=== PATIENT | male | born 1960 | race Caucasian/White ===

== ENCOUNTER 2016-09-30 15:51 | Inpatient (IN) | payer OTHER ==
[~2016-09-30] VITALS: Ht 182.9 cm; Wt 174.2 kg
[2016-09-30] MEDS ORDERED: VANCOMYCIN INJ 1,000 MG in SODIUM CHLORIDE 0.9% 250ML 250 ML IV STA (16:25)
[2016-09-30] MEDS ORDERED: CEFTRIAXONE SOD INJ 1 GM ADDVIAL IV STA (16:25)
[2016-09-30 17:08] LABS: BASO % 0.6 %; BASO ABS # 0.04 K/uL (0-0.2); COMPLETE YES; EOS % 1.8 %; HEMATOCRIT 35.9 % (42-52); IG% 0.2 %; LYMPH % 14.7 %; LYMPH ABS # 0.91 K/uL (1.2-3.4); MEAN CELL VOLUME 84.9 fL (80-100); MEAN CORPUSCULAR HEMOGLOBIN 26.7 pg (25-34); MEAN CORPUSCULAR HGB CONC 31.5 g/dl (32-36); MEAN PLATELET VOLUME 10.4 fL (7.4-10.4); MONO % 6.9 %; NEUT % 75.8 %; PLATELET COUNT 312 K/uL (130-400); RED BLOOD COUNT 4.23 M/uL (4.7-6.1); WHITE BLOOD COUNT 6.21 K/uL (4.8-10.8)
[2016-09-30] MEDS ORDERED: FUROSEMIDE 40 MG/4 ML VIAL IV STA (17:11)
--- NOTE | 2016-09-30 17:12 | DIAGNOSTIC IMAGING REPORT ---
CHEST ONE VIEW PORTABLE CLINICAL HISTORY: Shortness of breath. COMPARISON STUDY: No previous studies for comparison. FINDINGS: This exam is significantly compromised by suboptimal penetration related to portable technique and body habitus. Lung volumes are normal. No lobar consolidation is present. There is borderline enlargement of the cardiac silhouette. There is pulmonary vascular congestion without overt pulmonary edema. IMPRESSION: 1. Study significantly compromised by suboptimal penetration related to portable technique and body habitus. 2. Borderline cardiomegaly with pulmonary vascular congestion. No overt pulmonary edema. 3. No lobar consolidation. Electronically signed by: Andres Overton M.D. 09/30/2016 5:11 PM Dictated Date/Time: 09/30/2016 5:10 PM
[2016-09-30 17:24] LABS: BUN/CREATININE RATIO 10.4 (10-20); CALCIUM 8.3 mg/dl (8.5-10.1); CREATININE 3.6 mg/dl (0.60-1.40); POTASSIUM 5.1 mmol/L (3.5-5.1)
[2016-09-30 17:29] LABS: ALB/GLOB RATIO 0.6 (0.9-2); CKMB/CK RATIO 2.4 (0-3.0)
[2016-09-30] MEDS ORDERED: ALBUT/IPRATROP 3MG/0.5MG NEB 3 ML VIAL INH ONE (17:30)
[2016-09-30] MEDS ORDERED: DEXTROSE 50% 50 ML SYR IV STA (18:36)
[2016-09-30] MEDS ORDERED: ZOLPIDEM TARTRATE 5 MG TAB PO PRN (19:15)
[2016-09-30] MEDS ORDERED: DEXTROSE 50% 50 ML SYR IV PRN (19:30)
[2016-09-30] MEDS ORDERED: GLUCAGON FOR INJ 1 MG VIAL SQ PRN (19:30)
[2016-09-30] MEDS ORDERED: GLUCOSE 40% GEL 15 GM TUBE PO PRN (19:30)
[2016-09-30] MEDS ORDERED: GLUCOSE 10 TABS/TUBE PO PRN (19:30)
[2016-09-30] MEDS ORDERED: PIPERACILL/TAZOBAC IV 4.5 GM in DEXTROSE 5% 100ML IV ONE (19:30)
[2016-09-30] MEDS ORDERED: ONDANSETRON INJ 2 MG/ML 2 ML VIAL IV PRN (19:30)
[2016-09-30] MEDS ORDERED: METOPROLOL TARTRATE 50 MG TAB PO STA (19:35)
[2016-09-30] MEDS ORDERED: HydrALAZINE HCL 20 MG/ML VIAL ONE (20:06)
--- NOTE | 2016-09-30 21:07 | EMERGENCY ROOM VISIT NOTE ---
History Report prepared by Cassidy: Anila Devi Under the Supervision of: Dr. Richard Dotson M.D. First contact with patient: 16:20 Chief Complaint: LEG PAIN,LEG INJURY Stated Complaint: HARD TO WALK,BOTH LEGS & FEET History of Present Illness The patient is a 56 year old male who presents to the Emergency Room with complaints of worsening bilateral lower extremity edema that started a couple days ago. He is also experiencing bilateral leg pain, which makes it hard for him to ambulate. The patient also states that his abdomen is more distended than usual. The patient states that he is also experiencing dyspnea on exertion. The patient adds that he is supposed to be taking medications, but he does not because his doctor left so he never got the prescriptions refilled. Additionally, the patient is experiencing worsening erythema on his bilateral legs and feet. The erythema on his legs started one month ago and the erythema on his feet started three months ago. He states that he has experienced infections on both his legs and his feet in the past. Source of History: patient Onset: a couple days ago Position: leg (bilateral) Quality: other (edema) Timing: worsening Associated Symptoms: + SOB (on exertion) Note: abdominal distention, bilateral leg pain, worsening erythema on his bilateral legs and feet Review of Systems See HPI for pertinent positives & negatives. A total of 10 systems reviewed and were otherwise negative. Past Medical & Surgical Medical Problems: (1) Anasarca (2) Bilateral lower leg cellulitis Family History Cancer Diabetes mellitus Heart disease Hypertension Kidney disease Kidney stones Lung disease Social History Smoking Status: Never Smoker Smokeless Tobacco Use: No Alcohol Use: none Drug Use: none Housing Status: lives alone Occupation Status: employed Current/Historical Medications No Active Prescriptions or Reported Meds Allergies Coded Allergies: No Known Allergies (Unverified , 09/30/16) Physical Exam Vital Signs Date Time Temp Pulse Resp B/P Pulse Ox O2 Delivery O2 Flow Rate FiO2 09/30/16 20:34 76 18 188/97 93 Room Air 09/30/16 20:07 87 20 210/107 96 Room Air 09/30/16 18:44 79 20 225/110 95 Room Air 09/30/16 18:00 81 21 230/118 95 Room Air 09/30/16 17:23 83 09/30/16 17:19 98 Room Air 09/30/16 16:10 36.4 104 28 208/116 85 Room Air Physical Exam GENERAL: Patient is a healthy-appearing well-nourished male HEAD: Normocephalic atraumatic EYES: Ocular movements intact pupils equal and react to light OROPHARYNX mucous membranes are moist no exudates present no erythema or edema present NECK: Supple no nuchal rigidity CHEST: Good equal expansion LUNGS: Very distant breath sounds CARDIAC: Normal S1 and S2 ABDOMEN: Morbidly obese soft nontender no guarding BACK: No CVA tenderness EXTREMITIES: There is what appears to be cellulitis extending up to the knees bilaterally with multiple open wounds on his legs no pain upon palpation normal muscle strength in all groups no clubbing or cyanosis NEURO: Patient is following commands is answering questions appropriately. Alert and oriented x3 Cranial Nerves 2-12 grossly intact Medical Decision & Procedures ER Provider Diagnostic Interpretation: X-ray results as stated below per interpretation by me and the radiologist: CHEST ONE VIEW PORTABLE IMPRESSION: 1. Study significantly compromised by suboptimal penetration related to portable technique and body habitus. 2. Borderline cardiomegaly with pulmonary vascular congestion. No overt pulmonary edema. 3. No lobar consolidation. Electronically signed by: Andres Overton M.D. 09/30/2016 5:11 PM Dictated Date/Time: 09/30/2016 5:10 PM Laboratory Results 09/30/16 16:50 Red Blood Count 4.23, Mean Corpuscular Volume 84.9, Mean Corpuscular Hemoglobin 26.7, Mean Corpuscular Hemoglobin Concent 31.5, Mean Platelet Volume 10.4, Neutrophils (%) (Auto) 75.8, Lymphocytes (%) (Auto) 14.7, Monocytes (%) (Auto) 6.9, Eosinophils (%) (Auto) 1.8, Basophils (%) (Auto) 0.6, Neutrophils # (Auto) 4.71, Lymphocytes # (Auto) 0.91, Monocytes # (Auto) 0.43, Eosinophils # (Auto) 0.11, Basophils # (Auto) 0.04 09/30/16 16:50 Test 09/30/16 16:50 09/30/16 18:34 White Blood Count 6.21 K/uL (4.8-10.8) Red Blood Count 4.23 M/uL (4.7-6.1) Hemoglobin 11.3 g/dL (14.0-18.0) Hematocrit 35.9 % (42-52) Mean Corpuscular Volume 84.9 fL (80-100) Mean Corpuscular Hemoglobin 26.7 pg (25-34) Mean Corpuscular Hemoglobin Concent 31.5 g/dl (32-36) Platelet Count 312 K/uL (130-400) Mean Platelet Volume 10.4 fL (7.4-10.4) Neutrophils (%) (Auto) 75.8 % Lymphocytes (%) (Auto) 14.7 % Monocytes (%) (Auto) 6.9 % Eosinophils (%) (Auto) 1.8 % Basophils (%) (Auto) 0.6 % Neutrophils # (Auto) 4.71 K/uL (1.4-6.5) Lymphocytes # (Auto) 0.91 K/uL (1.2-3.4) Monocytes # (Auto) 0.43 K/uL (0.11-0.59) Eosinophils # (Auto) 0.11 K/uL (0-0.5) Basophils # (Auto) 0.04 K/uL (0-0.2) RDW Standard Deviation 56.1 fL (36.4-46.3) RDW Coefficient of Variation 18.1 % (11.5-14.5) Immature Granulocyte % (Auto) 0.2 % Immature Granulocyte # (Auto) 0.01 K/uL (0.00-0.02) Anion Gap 13.0 mmol/L (3-11) Est Creatinine Clear Calc Drug Dose 43.2 ml/min Estimated GFR () 20.9 Estimated GFR (Non- 18.1 BUN/Creatinine Ratio 10.4 (10-20) Calcium Level 8.3 mg/dl (8.5-10.1) Total Bilirubin 0.9 mg/dl (0.2-1) Aspartate Amino Transf (AST/SGOT) 35 U/L (15-37) Alanine Aminotransferase (ALT/SGPT) 25 U/L (12-78) Alkaline Phosphatase 150 U/L (45-117) Total Creatine Kinase 718 U/L (39-308) Creatine Kinase MB 17.1 ng/ml (0.5-3.6) Creatine Kinase MB Ratio 2.4 (0-3.0) Troponin I 0.032 ng/ml (0-0.045) Pro-B-Type Natriuretic Peptide 13000 pg/ml (0-900) Total Protein 6.9 gm/dl (6.4-8.2) Albumin 2.5 gm/dl (3.4-5.0) Globulin 4.4 gm/dl (2.5-4.0) Albumin/Globulin Ratio 0.6 (0.9-2) Bedside Glucose 79 mg/dl (70-99) Labs reviewed by ED physician. Medications Administered Medications (Trade) Dose Ordered Sig/Chavez Route Start Time Stop Time Status Last Admin Dose Admin Ceftriaxone Sodium 1 gm 1 gm NOW STAT IV 09/30/16 16:25 09/30/16 16:27 DC 09/30/16 18:18 1 GM Vancomycin HCl/ Sodium Chloride (Vancomycin Inj/ Nss 250ml) 270 ml @ 125 mls/hr NOW STAT IV 09/30/16 16:25 09/30/16 18:34 DC 09/30/16 18:51 125 MLS/HR Furosemide (Lasix Inj) 40 mg NOW STAT IV 09/30/16 17:11 09/30/16 17:12 DC 09/30/16 18:18 40 MG Dextrose (Dextrose 50% 50ML Syringe) 50 ml NOW STAT IV 09/30/16 18:36 09/30/16 18:37 DC 09/30/16 18:51 50 ML Metoprolol Tartrate (Lopressor Tab) 50 mg NOW STAT PO 09/30/16 19:35 09/30/16 19:43 DC 09/30/16 19:57 50 MG Hydralazine HCl (HydrALAZINE INJ) 20 mg STK-MED ONCE .ROUTE 09/30/16 20:06 09/30/16 20:10 DC 09/30/16 20:12 10 MG ECG Indication: SOB/dyspnea Rate (beats per minute): 88 Rhythm: normal sinus Findings: no acute ischemic change, no ectopy ED Course 162: Past medical records reviewed. The patient was evaluated in room A2. A complete history and physical examination was performed. 1625: Ordered Vancomycin HCl 1000 mg/Sodium Chloride 270 ml @ 125 mls/hr IV, Rocephin Inj 1 gm IV 1711: Ordered Lasix Inj 40 mg IV 1730: Ordered DuoNeb 12 ml INH 1733: I discussed the patient's case with Dr. Antony Hansen [facility], he has agreed to evaluate the patient for further management and care. 1738: Upon reexamination the patient is resting comfortable. I discussed results and treatment plan with the patient. He verbalizes agreement and understanding. I spoke with Dr. Hardy from the [facility] [address] [facility] Hospitalist Service. The patient will be evaluated for further management. 1836: Ordered Dextrose 50 ml IV Medical Decision Differential diagnosis: Etiologies such as infections, reactive airway disease, pneumonia, pneumothorax , COPD, CHF, cardiac ischemia, pulmonary embolism, musculoskeletal, gastrointestinal, as well as others were entertained. This is a 56-year-old male who presents emergency department complaining of shortness of breath. The patient has not seen a physician in some time and is acutely short of breath when he is walking. He is hypoxic. He does not take any medications at all. Based on the patient's presentation as well as swelling in his legs he was started on Lasix and started on Rocephin and vancomycin. With the impending blizzard I do not believe the patient is a good candidate to be sent home so I did discuss the case with the hospitalist service who agreed to admit the patient. Patient was in agreement with the treatment plan. Consults Time Called: 173 Consulting Physician: Dr. Antony BRADY Returned Call: [phone] I discussed the patient's case with Dr. Antony BRADY, he has agreed to evaluate the patient for further management and care. Impression Primary Impression: CHF exacerbation Critical Care I have personally spent greater than 30 minutes of critical care time in the direct management of this patient. This includes bedside care, interpretation of diagnostic studies, and testing, discussion with consultants, patient, and family members, and other required patient management activities. This 30 minutes is in excess of all separately billable procedures. Scribe Attestation The scribe's documentation has been prepared under my direction and personally reviewed by me in its entirety. I confirm that the note above accurately reflects all work, treatment, procedures, and medical decision making performed by me. Departure Information Dispostion Being Evaluated By Hospitalist Prescriptions No Active Prescriptions or Reported Meds Referrals No Doctor, Assigned (PCP) Patient Instructions My [facility] Problem Qualifiers Primary Impression: CHF exacerbation Congestive heart failure type: unspecified congestive heart failure type Qualified Codes: I50.9 - Heart failure, unspecified
[2016-09-30 21:21] VITALS: BP 174/89; PULSE 69; TEMP 36.9; O2SAT 96; BMI 62.1
[2016-09-30] MEDS ORDERED: PIPERACILL/TAZOBAC CONSULT ACTIVE PRN (21:30)
[2016-09-30] MEDS: INSULIN ASPART 100 UNITS/ML 3 ML PEN SC SCH (21:35)
[2016-09-30] MEDS: METOPROLOL TARTRATE 50 MG TAB PO SCH (21:38)
[2016-09-30] MEDS ORDERED: SODIUM CHLORIDE 0.9% IV SCH (22:00)
[2016-09-30] MEDS ORDERED: DAPTOMYCIN IV SCH (22:00)
--- NOTE | 2016-09-30 23:03 | History and Physical ---
History & Physical Date & Time of Service: Sep 30, 2016 at 22:48 Chief Complaint: Anasarca, Bilateral Lower Leg Cellulitis Primary Care Physician: No Doctor, Assigned History of Present Illness Source: patient The patient is a 56-year-old male who presents emergency department due to worsening bilateral lower extremity swelling and pain that began a few days ago. Redness began over one month ago. He has also been having dyspnea on exertion, but denies chest pain. He has been on medications in the past for blood pressure and fluid, however, he stopped taking them since his doctor left. He does note areas of weeping in both legs bilaterally. Family History Cancer Diabetes mellitus Heart disease Hypertension Kidney disease Kidney stones Lung disease Social History Smoking Status: Never Smoker Smokeless Tobacco Use: No Drug Use: none Occupational Status: employed Multi-Drug Resistant Organisms History of MDRO: No Allergies Coded Allergies: No Known Allergies (Unverified , 09/30/16) Home Medications No Active Prescriptions or Reported Meds Review of Systems The patient denies vision change, hearing change, sore throat, fevers, chills, sweats, weight change, fatigue, nausea, vomiting, abdominal pain, pelvic pain, blood in urine or stool, dysuria, urinary frequency or urgency, lightheadedness , dizziness, headache, memory loss, rash, , imbalance, focal or generalized weakness, numbness or tingling in arms , arthralgias or myalgias, back or neck pain, night sweats, or allergy symptoms. The review of systems is otherwise negative other than for that already noted above, and at least 10 systems have been reviewed. Physical Exam Vital Signs Date Time Temp Pulse Resp B/P Pulse Ox O2 Delivery O2 Flow Rate FiO2 09/30/16 21:21 36.9 69 20 174/89 96 Room Air 09/30/16 20:34 76 18 188/97 93 Room Air 09/30/16 20:07 87 20 210/107 96 Room Air 09/30/16 19:59 93 20 217/102 96 Room Air 09/30/16 18:44 79 20 225/110 95 Room Air 09/30/16 18:00 81 21 230/118 95 Room Air 09/30/16 17:23 83 09/30/16 17:19 98 Room Air 09/30/16 16:10 36.4 104 28 208/116 85 Room Air The patient is awake, well-developed and adequately nourished, alert and oriented 3, normocephalic and atraumatic, sitting upright in bed and in no acute distress. HEENT--PERRL, EOMI, mucous membranes and oropharynx dry. Neck--supple, no JVD or bruits, thyroid normal, trachea midline, no adenopathy. Heart--normal S1 and S2, no extra beats, no murmurs, rubs or gallops. Lungs--diminished throughout, no respiratory distress, no accessory muscle use. Abdomen--normal bowel sounds and soft, nontender and nondistended, morbidly obese. Extremities--no cyanosis, clubbing. There is bilaterally 2-3+ pitting edema. There are good distal pulses b/l. Dermatologic--bilateral lower extremities with moderately severe erythema multiple areas of weeping, multiple vesicles, and multiple sites of localized infection. Neurologic--cranial nerves II through XII grossly intact, motor and sensory examination normal. Rheumatologic--normal range of motion, nontender, muscles and joints. Psychiatric--normal affect. Diagnostics Laboratory Results Results Past 24 Hours Test 09/30/16 16:50 09/30/16 18:34 09/30/16 20:49 Range/Units White Blood Count 6.21 4.8-10.8 K/uL Red Blood Count 4.23 4.7-6.1 M/uL Hemoglobin 11.3 14.0-18.0 g/dL Hematocrit 35.9 42-52 % Mean Corpuscular Volume 84.9 80-100 fL Mean Corpuscular Hemoglobin 26.7 25-34 pg Mean Corpuscular Hemoglobin Concent 31.5 32-36 g/dl Platelet Count 312 130-400 K/uL Mean Platelet Volume 10.4 7.4-10.4 fL Neutrophils (%) (Auto) 75.8 % Lymphocytes (%) (Auto) 14.7 % Monocytes (%) (Auto) 6.9 % Eosinophils (%) (Auto) 1.8 % Basophils (%) (Auto) 0.6 % Neutrophils # (Auto) 4.71 1.4-6.5 K/uL Lymphocytes # (Auto) 0.91 1.2-3.4 K/uL Monocytes # (Auto) 0.43 0.11-0.59 K/uL Eosinophils # (Auto) 0.11 0-0.5 K/uL Basophils # (Auto) 0.04 0-0.2 K/uL RDW Standard Deviation 56.1 36.4-46.3 fL RDW Coefficient of Variation 18.1 11.5-14.5 % Immature Granulocyte % (Auto) 0.2 % Immature Granulocyte # (Auto) 0.01 0.00-0.02 K/uL Sodium Level 142 136-145 mmol/L Potassium Level 5.1 3.5-5.1 mmol/L Chloride Level 111 98-107 mmol/L Carbon Dioxide Level 18 21-32 mmol/L Anion Gap 13.0 3-11 mmol/L Blood Urea Nitrogen 37 7-18 mg/dl Creatinine 3.60 0.60-1.40 mg/dl Est Creatinine Clear Calc Drug Dose 43.2 ml/min Estimated GFR () 20.9 Estimated GFR (Non- 18.1 BUN/Creatinine Ratio 10.4 10-20 Random Glucose 66 70-99 mg/dl Calcium Level 8.3 8.5-10.1 mg/dl Total Bilirubin 0.9 0.2-1 mg/dl Aspartate Amino Transf (AST/SGOT) 35 15-37 U/L Alanine Aminotransferase (ALT/SGPT) 25 12-78 U/L Alkaline Phosphatase 150 45-117 U/L Total Creatine Kinase 718 39-308 U/L Creatine Kinase MB 17.1 0.5-3.6 ng/ml Creatine Kinase MB Ratio 2.4 0-3.0 Troponin I 0.032 0-0.045 ng/ml Pro-B-Type Natriuretic Peptide 81820 0-900 pg/ml Total Protein 6.9 6.4-8.2 gm/dl Albumin 2.5 3.4-5.0 gm/dl Globulin 4.4 2.5-4.0 gm/dl Albumin/Globulin Ratio 0.6 0.9-2 Bedside Glucose 79 70 70-99 mg/dl Microbiology Results 09/30/16 Blood Culture, Received Pending 09/30/16 Blood Culture, Received Pending 09/30/16 Gram Stain, Received Pending 09/30/16 Wound Culture, Received Pending Diagnostic Radiology Patient Name: DAY KRUEGER Unit Number: [id number] Dictated: 09/30/161709 Transcribed: 09/30/161709 NAKITA Printed Date/Time: [~ rep prt dt]/[~ rep prt tm] [~ rep ct labl] - [~ rep ct ivnm] [facility] [place] [address] Dictated: 09/30/161709 Transcribed: 09/30/161709 Printed Date/Time: [~ rep prt dt]/[~ rep prt tm] [~ rep ct labl] - [~ rep ct ivnm] CHEST ONE VIEW PORTABLE CLINICAL HISTORY: Shortness of breath. COMPARISON STUDY: No previous studies for comparison. FINDINGS: This exam is significantly compromised by suboptimal penetration related to portable technique and body habitus. Lung volumes are normal. No lobar consolidation is present. There is borderline enlargement of the cardiac silhouette. There is pulmonary vascular congestion without overt pulmonary edema. IMPRESSION: 1. Study significantly compromised by suboptimal penetration related to portable technique and body habitus. 2. Borderline cardiomegaly with pulmonary vascular congestion. No overt pulmonary edema. 3. No lobar consolidation. Electronically signed by: Andres Overton M.D. 09/30/2016 5:11 PM Dictated Date/Time: 09/30/2016 5:10 PM The status of this report is Signed. Draft = Not yet reviewed or approved by Radiologist. Signed = Reviewed and approved by Radiologist. <AttendingPhy></AttendingPhy> <FamilyPhy>No Doctor, Assigned</FamilyPhy> < PrimaryPhy>No Doctor, Assigned</PrimaryPhy> <UnitNumber>[id number]</UnitNumber> <VisitNumber>[id number]</VisitNumber> <PatientName>DAY KRUEGER JR</ PatientName> <DateOfBirth>1960</DateOfBirth> <Location>[facility]</Location> < ServiceDate>09/30/16</ServiceDate> <MNE>ESINDI</MNE> <OrderingPhy>Richard Dotson MD</OrderingPhy> <OrderingPhyMNE>f rep ord dr giraldo</OrderingPhyMNE> < DictatingPhyMNE>f rep dict dr giraldo</DictatingPhyMNE> <CCListMNE>f rep ct mne</ CCListMNE> <AdmittingPhyMNE>f pt admit dr giraldo</AdmittingPhyMNE> <AttendingPhyMNE >f pt attend dr giraldo</AttendingPhyMNE> <ConsultingPhyMNE>f pt consult dr giraldo</ConsultingPhyMNE> <FamilyPhyMNE>f pt fam dr giraldo</FamilyPhyMNE> <OtherPhyMNE>f pt other dr giraldo</OtherPhyMNE> < PrimaryPhyMNE>f pt prim care dr giraldo</PrimaryPhyMNE> <ReferringPhyMNE>f pt referring dr giraldo</ReferringPhyMNE> EKG EKG shows normal sinus rhythm at 88 bpm, there are no acute ST-T changes. Impression Assessment and Plan Bilateral lower extremity cellulitis--the patient was placed on daptomycin 6 mg/ kg IV daily, and Zosyn 3.375 mg IV every 12 hours. We will work on diuresing to minimize vacuoles which ultimately burst and result in a secondary cellulitis. Uncontrolled hypertension/Renal insufficiency/anasarca --creatinine upon entry is 3.60. We'll follow serial BMP and magnesium levels as he is diuresed. He' ll get albumin 25 g with Lasix 40 mg IV 1 tonight and then every morning. His breathing should also improve with diuresis, and we'll check a 2-D echocardiogram and serial cardiac enzymes. We'll start metoprolol tartrate 50 mg by mouth twice a day, Actonel place on hydralazine 10 mg IV every 4 hours when necessary. Level of Care Telemetry Advanced Directives Existing Advance Directive: No Existing Living Will: No Existing Power of [employer] C[employer] Manager: No Resuscitation Status FULL RESUSCITATION VTE Prophylaxis VTE Risk Assessment Done? Y/N: Yes Risk Level: Moderate
[2016-09-30 23:20] VITALS: BP 166/89; PULSE 61; TEMP 36.4; O2SAT 97
[2016-09-30] MEDS: HydrALAZINE HCL 20 MG/ML VIAL IV. PRN (23:35)
[2016-10-01] VITALS (12 sets, daily range): BP systolic 146–182; BP diastolic 63–93; PULSE 65–86; TEMP 36.3–36.9; O2SAT 93–98; Ht 182.9 cm; Wt 174.2 kg
[2016-10-01] MEDS: PIPERACILL/TAZOBAC IV 4.5 GM in DEXTROSE 5% 100ML 100 ML IV SCH ×3 (01:25→18:06)
[2016-10-01] MEDS: HydrALAZINE HCL 20 MG/ML VIAL IV. PRN ×2 (03:43→17:03)
[2016-10-01 05:34] LABS: URINE APPEARANCE CLOUDY (CLEAR); URINE BILIRUBIN NEG (NEG); URINE COLOR YELLOW; URINE EPITHELIAL CELL AUTO >30 /lpf (0-5); URINE NITRITE NEG (NEG); URINE SPECIFIC GRAVITY 1.013 (1.000-1.030); UROBILINOGEN NEG (NEG)
[2016-10-01 05:36] LABS: MANUAL MICROSCOPIC REQUIRED? NO; REVIEW REQ? YES
[2016-10-01 07:22] LABS: BASO % 0.7 %; BASO ABS # 0.04 K/uL (0-0.2); COMPLETE YES; EOS % 2.1 %; HEMATOCRIT 34.9 % (42-52); IG% 0.2 %; LYMPH % 22.5 %; LYMPH ABS # 1.26 K/uL (1.2-3.4); MEAN CELL VOLUME 83.7 fL (80-100); MEAN CORPUSCULAR HEMOGLOBIN 26.1 pg (25-34); MEAN CORPUSCULAR HGB CONC 31.2 g/dl (32-36); MEAN PLATELET VOLUME 9.7 fL (7.4-10.4); MONO % 7.7 %; NEUT % 66.8 %; PLATELET COUNT 273 K/uL (130-400); RED BLOOD COUNT 4.17 M/uL (4.7-6.1); WHITE BLOOD COUNT 5.59 K/uL (4.8-10.8)
[2016-10-01 07:32] LABS: INR 1.2 (0.9-1.1); PARTIAL THROMBOPLASTIN RATIO 1.2
[2016-10-01 07:47] LABS: BUN/CREATININE RATIO 10.1 (10-20); CALCIUM 7.9 mg/dl (8.5-10.1); CREATININE 3.5 mg/dl (0.60-1.40); POTASSIUM 4.8 mmol/L (3.5-5.1)
[2016-10-01] MEDS: INSULIN ASPART 100 UNITS/ML 3 ML PEN SC SCH ×4 (08:47→21:00)
[2016-10-01] MEDS: METOPROLOL TARTRATE 50 MG TAB PO SCH ×2 (08:49→21:22)
[2016-10-01] MEDS ORDERED: ALBUMIN 25% 50 ML with FUROSEMIDE INJ 40 MG IV SCH ×2 (09:00)
[2016-10-01] MEDS: ALBUMIN 25% 50 ML with FUROSEMIDE INJ 40 MG IV SCH ×6 (09:15→22:06)
--- NOTE | 2016-10-01 10:44 | Progress Note ---
Subjective Date of Service: Oct 01, 2016. Subjective Pt evaluation today including: conversation w/ patient, physical exam, chart review, lab review, review of studies, conversation w/ senior analytic consultant, review of inpatient medication list Voiding: no voiding problems Feeling a little better, eating voiding, bilateral lower extremities edema is the same, there are wounds in the lower extremity, left side more severe and then right side, mild right calf pain , still difficulty breathing, dyspnea on exertion, no special complaint Problem List Medical Problems: (1) CHF exacerbation Status: Acute Review of Systems Constitutional: + fatigue, No chills, No fever, No problem reported, No sweats , No weakness, No weight loss Eyes: No diplopia, No discharge, No eye pain, No redness, No worsening of vision ENT: No dental problems, No hearing loss, No nasal symptoms, No sore throat, No tinnitus, No trouble swallowing, No unusual epistaxis Respiratory: + shortness of breath, No cough, No dyspnea at rest, No dyspnea on exertion, No hemoptysis, No sputum, No wheezing Cardiac: + edema, No PND, No chest pain, No claudication, No orthopnea, No palpitations Abdomen: No constipation, No diarrhea, No nausea, No pain, No vomiting Musculoskeletal: No calf pain, No joint pain, No muscle pain, No swelling Male : No dysuria, No hematuria, No incontinence, No nocturia more than once/ night, No slowing stream, No urinary frequency Neurologic: No balance problems, No memory loss, No numbness/tingling, No paralysis, No vertigo, No weakness Psychiatric: No anhedonism, No anxiety, No depression symptoms, No insomnia, No substance abuse Heme: No abnormal bleeding/bruising, No clotting problems, No night sweats, No swollen lymph nodes Endo: No excessive thirst, No excessive urination, No fatigue Skin: + rash, No bleeding, No color change, No itch, No new/changing skin lesions Objective Vital Signs Date Time Temp Pulse Resp B/P Pulse Ox O2 Delivery O2 Flow Rate FiO2 10/01/16 08:30 Room Air 10/01/16 07:26 36.9 76 18 170/93 95 10/01/16 05:13 160/77 10/01/16 04:00 Room Air 10/01/16 03:31 36.4 69 20 179/81 94 Room Air 10/01/16 01:18 164/80 10/01/16 00:01 97 Room Air 09/30/16 23:20 36.4 61 18 166/89 97 Room Air 09/30/16 21:21 36.9 69 20 174/89 96 Room Air 09/30/16 20:34 76 18 188/97 93 Room Air 09/30/16 20:07 87 20 210/107 96 Room Air 09/30/16 19:59 93 20 217/102 96 Room Air 09/30/16 18:44 79 20 225/110 95 Room Air 09/30/16 18:00 81 21 230/118 95 Room Air 09/30/16 17:23 83 09/30/16 17:19 98 Room Air 09/30/16 16:10 36.4 104 28 208/116 85 Room Air Physical Exam General Appearance: WD/WN, no apparent distress, + obese (morbid obesity) Eyes: normal inspection, PERRL, EOMI, sclerae normal ENT: normal ENT inspection, hearing grossly normal, pharynx normal Neck: supple, no adenopathy, thyroid normal, no JVD, no carotid bruits, trachea midline Respiratory/Chest: chest non-tender, normal breath sounds, no respiratory distress, no accessory muscle use, + decreased breath sounds, + wheezing (a little ) Cardiovascular: regular rate, rhythm, no gallop, no JVD, no murmur, + pertinent finding (3+ edema) Abdomen: normal bowel sounds, non tender, soft, no organomegaly, no pulsatile mass Extremities: normal range of motion, non-tender, normal inspection, no pedal edema, no calf tenderness, normal capillary refill, pelvis stable 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, no motor/sensory deficits, alert, normal mood/affect, oriented x 3 Skin: normal color, warm/dry, + pertinent finding (bilateral anterior jamison has erythema, left lower extremity has skin superficial breakdown, no obvious drainage) Lymphatic: no adenopathy Laboratory Results Last 24 Hours Test 09/30/16 16:50 09/30/16 18:34 09/30/16 20:49 09/30/16 23:15 White Blood Count 6.21 K/uL Red Blood Count 4.23 M/uL Hemoglobin 11.3 g/dL Hematocrit 35.9 % Mean Corpuscular Volume 84.9 fL Mean Corpuscular Hemoglobin 26.7 pg Mean Corpuscular Hemoglobin Concent 31.5 g/dl Platelet Count 312 K/uL Mean Platelet Volume 10.4 fL Neutrophils (%) (Auto) 75.8 % Lymphocytes (%) (Auto) 14.7 % Monocytes (%) (Auto) 6.9 % Eosinophils (%) (Auto) 1.8 % Basophils (%) (Auto) 0.6 % Neutrophils # (Auto) 4.71 K/uL Lymphocytes # (Auto) 0.91 K/uL Monocytes # (Auto) 0.43 K/uL Eosinophils # (Auto) 0.11 K/uL Basophils # (Auto) 0.04 K/uL RDW Standard Deviation 56.1 fL RDW Coefficient of Variation 18.1 % Immature Granulocyte % (Auto) 0.2 % Immature Granulocyte # (Auto) 0.01 K/uL Sodium Level 142 mmol/L Potassium Level 5.1 mmol/L Chloride Level 111 mmol/L Carbon Dioxide Level 18 mmol/L Anion Gap 13.0 mmol/L Blood Urea Nitrogen 37 mg/dl Creatinine 3.60 mg/dl Est Creatinine Clear Calc Drug Dose 43.2 ml/min Estimated GFR () 20.9 Estimated GFR (Non- 18.1 BUN/Creatinine Ratio 10.4 Random Glucose 66 mg/dl Calcium Level 8.3 mg/dl Total Bilirubin 0.9 mg/dl Aspartate Amino Transf (AST/SGOT) 35 U/L Alanine Aminotransferase (ALT/SGPT) 25 U/L Alkaline Phosphatase 150 U/L Total Creatine Kinase 718 U/L 734 U/L Creatine Kinase MB 17.1 ng/ml 14.9 ng/ml Creatine Kinase MB Ratio 2.4 2.0 Troponin I 0.032 ng/ml 0.030 ng/ml Pro-B-Type Natriuretic Peptide 99589 pg/ml Total Protein 6.9 gm/dl Albumin 2.5 gm/dl Globulin 4.4 gm/dl Albumin/Globulin Ratio 0.6 Bedside Glucose 79 mg/dl 70 mg/dl Test 09/30/16 23:58 10/01/16 03:25 10/01/16 06:36 10/01/16 07:07 Bedside Glucose 77 mg/dl 72 mg/dl Urine Color YELLOW Urine Appearance CLOUDY Urine pH 5.0 Urine Specific [place] 1.013 Urine Protein 3+ Urine Glucose (UA) 1+ Urine Ketones TRACE Urine Occult Blood 2+ Urine Nitrite NEG Urine Bilirubin NEG Urine Urobilinogen NEG Urine Leukocyte Esterase NEG Urine WBC (Auto) 10-30 /hpf Urine RBC (Auto) 5-10 /hpf Urine Hyaline Casts (Auto) 10-30 /lpf Urine Epithelial Cells (Auto) >30 /lpf Urine Bacteria (Auto) NEG Urine Renal Epithelial Cells /lpf Urine Pathogenic Casts 10-20 GRANULAR CASTS /lpf White Blood Count 5.59 K/uL Red Blood Count 4.17 M/uL Hemoglobin 10.9 g/dL Hematocrit 34.9 % Mean Corpuscular Volume 83.7 fL Mean Corpuscular Hemoglobin 26.1 pg Mean Corpuscular Hemoglobin Concent 31.2 g/dl Platelet Count 273 K/uL Mean Platelet Volume 9.7 fL Neutrophils (%) (Auto) 66.8 % Lymphocytes (%) (Auto) 22.5 % Monocytes (%) (Auto) 7.7 % Eosinophils (%) (Auto) 2.1 % Basophils (%) (Auto) 0.7 % Neutrophils # (Auto) 3.73 K/uL Lymphocytes # (Auto) 1.26 K/uL Monocytes # (Auto) 0.43 K/uL Eosinophils # (Auto) 0.12 K/uL Basophils # (Auto) 0.04 K/uL RDW Standard Deviation 55.5 fL RDW Coefficient of Variation 18.0 % Immature Granulocyte % (Auto) 0.2 % Immature Granulocyte # (Auto) 0.01 K/uL Prothrombin Time 13.0 SECONDS Prothromb Time International Ratio 1.2 Activated Partial Thromboplast Time 30.1 SECONDS Partial Thromboplastin Ratio 1.2 Sodium Level 142 mmol/L Potassium Level 4.8 mmol/L Chloride Level 112 mmol/L Carbon Dioxide Level 15 mmol/L Anion Gap 15.0 mmol/L Blood Urea Nitrogen 35 mg/dl Creatinine 3.50 mg/dl Est Creatinine Clear Calc Drug Dose 44.3 ml/min Estimated GFR () 21.7 Estimated GFR (Non- 18.7 BUN/Creatinine Ratio 10.1 Random Glucose 78 mg/dl Calcium Level 7.9 mg/dl Magnesium Level 2.0 mg/dl Total Bilirubin 0.9 mg/dl Direct Bilirubin 0.4 mg/dl Aspartate Amino Transf (AST/SGOT) 35 U/L Alanine Aminotransferase (ALT/SGPT) 22 U/L Alkaline Phosphatase 121 U/L Total Creatine Kinase 950 U/L Creatine Kinase MB 18.8 ng/ml Creatine Kinase MB Ratio 2.0 Troponin I 0.045 ng/ml Total Protein 6.1 gm/dl Albumin 2.1 gm/dl Thyroid Stimulating Hormone (TSH) 4.190 uIu/ml Assessment and Plan 56-year-old white male admitted because of dyspnea on exertion, Bilateral lower extremity cellulitis on 09/30/2016 Likely acute on chronic CHF exacerbation which is evidenced with dyspnea on exertion for several months, getting worse for 2 week, associated with significant weight gain, stable continue on diuresing with the Lasix combined with albumin, increase the dose to twice a day Follow-up echo, add beta rafael, no LYLE inhibitor or ARB for now because possible acute on chronic kidney failure, Fluid restriction, in and out Acute kidney failure, no baseline BUN/creatinine to compare, BUN/creatinine improved after diuretic, which support the kidney failure from CHF and renal congestion Therefore feel more confident to increased diuretic Bilateral lower extremity cellulitis stable Continue on daptomycin 6 mg/kg IV daily, and Zosyn 3.375 mg IV every 12 hours. 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
--- NOTE | 2016-10-01 11:06 | ECHOCARDIOGRAM REPORT ---
*NOTICE TO RECEIVING [employer] This information is strictly Confidential and protected under [place] law. [place] law prohibits you from making any further disclosure of this information unless further disclosure is expressly permitted by the written consent of the person to whom it pertains or is authorized by law. A general authorization for the release of medical or other information is not sufficient for this purpose. Hospital accepts no responsibility if the information is made available to any other person, INCLUDING THE PATIENT. Interpretation Summary * Name: DAY KRUEGER JR Study Date: 10/01/2016 09:44 AM BP: 170/93 mmHg * Patient Location: .2T\S\E215\S\1 HR: 76 * : 1960 (M/d/yyyy) Gender: Male Height: 72 in * Age: 56 yrs Ethnicity: CA Weight: 460 lb * Ordering Physician: Ramy Hardy * Referring Physician: Self, Referred * Performed By: Magaly Jorgensen RDCS * * Reason For Study: ANASARCA * BSA: 3.0 m2 * History: ANASARCA * -- Conclusions -- * 1. Normal left ventricular size with probable low-normal systolic function. Estimated EF 50-55%. No definite regional wall motion abnormalities. Severe concentric left ventricular hypertrophy. Type 2 diastolic dysfunction; tissue Doppler suggests elevated left atrial pressure. * 2. Right ventricle not well visualized but appears to be moderately dilated. * 3. The left atrium is moderately dilated. * 4. There is mild mitral regurgitation. * 5. Technically difficult study, enhanced with IV Definity. Poor image quality, which may affect interpretation. * 6. No prior study available for comparison. Procedure Details * A contrast injection of Definity was performed to improve assessment of LV function. * Contrast was injected into an intravenous site in the left arm. * One vial of Definity ultrasound contrast was diluted in normal saline to a total volume of 10 ml. A total of '2' ml of solution was administered during imaging. * Lot # [id number] of Definity utilized for procedure. * Expiration date AUG 07. * The attending nurse who injected the contrast agent was AME LAMBERT. Left Ventricle * Normal left ventricular size with probable low-normal systolic function. Estimated EF 50-55%. No definite regional wall motion abnormalities. Severe concentric left ventricular hypertrophy. Type 2 diastolic dysfunction. Right Ventricle * Right ventricle not well visualized but appears to be moderately dilated. * Difficult to assess right ventricular systolic function, however in some views it appears to be mildly reduced. Atria * The left atrium is moderately dilated. * Right atrium not well visualized. Mitral Valve * The mitral valve is not well visualized. * There is no mitral valve stenosis. * There is mild mitral regurgitation. Tricuspid Valve * The tricuspid valve is not well visualized. * There is no tricuspid stenosis. * Significant tricuspid regurgitation is absent. Aortic Valve * The aortic valve is not well visualized. * No hemodynamically significant valvular aortic stenosis. * There is no significant aortic regurgitation. Pulmonic Valve * The pulmonary valve is inadequately visualized, but the Doppler data is adequate for interpretation. * There is no pulmonic valvular stenosis. * Trace pulmonic valvular regurgitation. Great Vessels * The aortic root is normal size. * Blunted pulmonary venous flow pattern. Pericardium/Pleural * There is no pericardial effusion. Great Vessels * IVC not visualized. MMode 2D Measurements and Calculations IVSd 1.6 cm IVSs 2.2 cm LVIDd 5.2 cm LVIDs 3.8 cm LVPWd 1.6 cm LVPWs 2.3 cm IVS/LVPW 1.0 FS 27.0 % EDV(Teich) 127.8 ml ESV(Teich) 60.9 ml EF(Teich) 52.3 % EDV(cubed) 138.1 ml ESV(cubed) 53.7 ml EF(cubed) 61.1 % % IVS thick 33.6 % % LVPW thick 45.6 % LV mass(C)d 371.2 grams LV mass(C)dI 122.3 grams/m\S\2 LV mass(C)s 417.8 grams LV mass(C)sI 137.7 grams/m\S\2 SV(Teich) 66.8 ml SI(Teich) 22.0 ml/m\S\2 SV(cubed) 84.4 ml SI(cubed) 27.8 ml/m\S\2 Ao root diam 3.4 cm Ao root area 9.0 cm\S\2 LA dimension 4.6 cm LA/Ao 1.4 LVAd ap4 44.5 cm\S\2 LVLd ap4 9.3 cm EDV(MOD-sp4) 168.8 ml EDV(sp4-el) 180.0 ml LVAs ap4 27.4 cm\S\2 LVLs ap4 7.4 cm ESV(MOD-sp4) 84.3 ml ESV(sp4-el) 86.6 ml EF(MOD-sp4) 50.0 % EF(sp4-el) 51.9 % SV(MOD-sp4) 84.5 ml SI(MOD-sp4) 27.8 ml/m\S\2 SV(sp4-el) 93.4 ml SI(sp4-el) 30.8 ml/m\S\2 Doppler Measurements and Calculations MV E max jassi 140.0 cm/sec MV A max jassi 62.4 cm/sec MV E/A 2.2 MV dec time 0.21 sec Ao V2 max 116.1 cm/sec Ao max PG 5.4 mmHg Ao max PG (full) 2.6 mmHg LV V1 max PG 2.8 mmHg LV V1 max 84.2 cm/sec TR max jassi 236.2 cm/sec
--- NOTE | 2016-10-01 12:19 | DIAGNOSTIC IMAGING REPORT ---
BILATERAL LOWER EXTREMITY VENOUS DOPPLER CLINICAL HISTORY: Bilateral lower extremity swelling, cellulitis and calf pain. COMPARISON STUDY: No previous studies for comparison. TECHNIQUE: Sonography of the deep venous system of the bilateral lower extremities was performed. Compression and augmentation were evaluated. FINDINGS: This exam was compromised by suboptimal penetration. The bilateral common femoral, superficial femoral and popliteal veins were compressible. Augmentation was normal. Flow was shown within the deep calf vessels. IMPRESSION: Study compromised by suboptimal penetration but no evidence of deep venous thrombus within the bilateral lower extremities. Electronically signed by: Andres Overton M.D. 10/01/2016 12:17 PM Dictated Date/Time: 10/01/2016 12:16 PM
[2016-10-01 15:40] LABS: CKMB/CK RATIO 1.6 (0-3.0)
[2016-10-01 18:23] LABS: BUN/CREATININE RATIO 9.3 (10-20); CALCIUM 7.8 mg/dl (8.5-10.1); CREATININE 3.9 mg/dl (0.60-1.40)
[2016-10-01] MEDS ORDERED: NURSING VERBAL MED ORDER ONE (20:30)
[2016-10-01] MEDS ORDERED: DAPTOMYCIN IV SCH (22:00)
[2016-10-01] MEDS ORDERED: SODIUM CHLORIDE 0.9% IV SCH (22:00)
[2016-10-01] MEDS: HydrALAZINE 10 MG TAB PO SCH (22:06)
[2016-10-02] VITALS (9 sets, daily range): BP systolic 150–176; BP diastolic 63–86; PULSE 63–69; TEMP 36.4–36.7; O2SAT 90–95
[2016-10-02] MEDS: PIPERACILL/TAZOBAC IV 4.5 GM in DEXTROSE 5% 100ML 100 ML IV SCH (01:29)
[2016-10-02] MEDS: HydrALAZINE 10 MG TAB PO SCH ×3 (05:43→22:50)
[2016-10-02 06:11] LABS: BASO % 0.8 %; BASO ABS # 0.05 K/uL (0-0.2); COMPLETE YES; EOS % 2.1 %; HEMATOCRIT 34.7 % (42-52); IG% 0.2 %; LYMPH % 19.1 %; LYMPH ABS # 1.18 K/uL (1.2-3.4); MEAN CELL VOLUME 84.4 fL (80-100); MEAN CORPUSCULAR HEMOGLOBIN 26.3 pg (25-34); MEAN CORPUSCULAR HGB CONC 31.1 g/dl (32-36); MEAN PLATELET VOLUME 9.9 fL (7.4-10.4); MONO % 9.5 %; NEUT % 68.3 %; PLATELET COUNT 276 K/uL (130-400); RED BLOOD COUNT 4.11 M/uL (4.7-6.1); WHITE BLOOD COUNT 6.19 K/uL (4.8-10.8)
[2016-10-02 06:25] LABS: INR 1.2 (0.9-1.1); PARTIAL THROMBOPLASTIN RATIO 1.2; PROTHROMBIN TIME (PATIENT) 13.2 SECONDS (9.0-12.0)
[2016-10-02 06:38] LABS: BUN/CREATININE RATIO 9.9 (10-20); CALCIUM 7.5 mg/dl (8.5-10.1); CREATININE 4.1 mg/dl (0.60-1.40); MAGNESIUM 2.1 mg/dl (1.8-2.4); POTASSIUM 4.9 mmol/L (3.5-5.1)
[2016-10-02 06:40] LABS: CHOLESTEROL/HDL RATIO 3.1
[2016-10-02 07:00] LABS: ESTIMATED AVERAGE GLUCOSE 146 mg/dl; HA1C FLAG Normal (Normal)
[2016-10-02] MEDS: INSULIN ASPART 100 UNITS/ML 3 ML PEN SC SCH ×4 (07:59→20:30)
[2016-10-02] MEDS: METOPROLOL TARTRATE 50 MG TAB PO SCH ×2 (07:59→20:31)
--- NOTE | 2016-10-02 10:11 | Progress Note ---
Subjective Date of Service: Oct 02, 2016. Subjective Pt evaluation today including: conversation w/ patient, physical exam, chart review, lab review, review of studies, conversation w/ cycle consultant, review of inpatient medication list Feeling a little bit better in difficult breathing, out of bed to rest room, speak full sentence, report not too much urine output, lower extremity still swelling Problem List Medical Problems: (1) CHF exacerbation Status: Acute Review of Systems Constitutional: + fatigue, No chills, No fever, No problem reported, No sweats , No weakness, No weight loss Eyes: No diplopia, No discharge, No eye pain, No redness, No worsening of vision ENT: No dental problems, No hearing loss, No nasal symptoms, No sore throat, No tinnitus, No trouble swallowing, No unusual epistaxis Respiratory: + shortness of breath (dyspnea on exertion but is better), No cough, No dyspnea at rest, No dyspnea on exertion, No hemoptysis, No sputum, No wheezing Cardiac: + edema (3+ edema), No PND, No chest pain, No claudication, No orthopnea, No palpitations Abdomen: No constipation, No diarrhea, No nausea, No pain, No vomiting Musculoskeletal: No calf pain, No joint pain, No muscle pain, No swelling Male : No dysuria, No hematuria, No incontinence, No nocturia more than once/ night, No slowing stream, No urinary frequency Neurologic: No balance problems, No memory loss, No numbness/tingling, No paralysis, No vertigo, No weakness Psychiatric: No anhedonism, No anxiety, No depression symptoms, No insomnia, No substance abuse Heme: No abnormal bleeding/bruising, No clotting problems, No night sweats, No swollen lymph nodes Endo: No excessive thirst, No excessive urination, No fatigue Skin: + rash (in chyna lower extremities is better, local skin abrasion with some ozozing and fluid is in dress), No bleeding, No color change, No itch, No new/changing skin lesions Objective Vital Signs Date Time Temp Pulse Resp B/P Pulse Ox O2 Delivery O2 Flow Rate FiO2 10/02/16 08:00 Room Air 10/02/16 07:33 36.7 66 16 176/85 95 Room Air 10/02/16 04:00 Room Air 10/02/16 03:38 36.4 64 21 150/77 92 Room Air 10/01/16 23:59 Room Air 10/01/16 23:24 36.3 66 22 147/76 93 Room Air 10/01/16 20:17 36.3 70 18 175/93 94 Room Air 10/01/16 17:52 70 163/72 10/01/16 16:00 96 Room Air 10/01/16 15:13 36.3 65 18 173/82 96 Room Air 10/01/16 12:00 Room Air 10/01/16 11:27 36.9 86 18 146/63 95 10/01/16 11:15 68 98 Physical Exam General Appearance: WD/WN, no apparent distress, + obese (morbid obesity) Eyes: normal inspection, PERRL, EOMI, sclerae normal ENT: normal ENT inspection, hearing grossly normal, pharynx normal Neck: supple, no adenopathy, thyroid normal, no JVD, no carotid bruits, trachea midline Respiratory/Chest: chest non-tender, lungs clear, normal breath sounds, no respiratory distress, no accessory muscle use, + decreased breath sounds Cardiovascular: regular rate, rhythm, no gallop, no JVD, no murmur, + pertinent finding (3+ edema) Abdomen: normal bowel sounds, non tender, soft, no organomegaly, no pulsatile mass Extremities: normal range of motion, non-tender, normal inspection, no pedal edema, no calf tenderness, normal capillary refill, pelvis stable, + swelling 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, no motor/sensory deficits, alert, normal mood/affect, oriented x 3 Skin: normal color, warm/dry, + pertinent finding (rashes and erythema in bilateral anterior jamison, superficial skin abrasion) Lymphatic: no adenopathy Laboratory Results Last 24 Hours Test 10/01/16 11:15 10/01/16 15:01 10/01/16 16:41 10/01/16 17:22 Bedside Glucose 88 mg/dl 91 mg/dl Total Creatine Kinase 965 U/L 1031 U/L Creatine Kinase MB 15.7 ng/ml Creatine Kinase MB Ratio 1.6 Troponin I 0.046 ng/ml Sodium Level 140 mmol/L Potassium Level 5.0 mmol/L Chloride Level 110 mmol/L Carbon Dioxide Level 19 mmol/L Anion Gap 11.0 mmol/L Blood Urea Nitrogen 36 mg/dl Creatinine 3.90 mg/dl Est Creatinine Clear Calc Drug Dose 39.8 ml/min Estimated GFR () 19.0 Estimated GFR (Non- 16.4 BUN/Creatinine Ratio 9.3 Random Glucose 116 mg/dl Calcium Level 7.8 mg/dl Magnesium Level 2.0 mg/dl Test 10/01/16 20:18 10/01/16 21:50 10/02/16 05:58 10/02/16 06:45 Bedside Glucose 93 mg/dl 93 mg/dl Troponin I 0.046 ng/ml 0.041 ng/ml White Blood Count 6.19 K/uL Red Blood Count 4.11 M/uL Hemoglobin 10.8 g/dL Hematocrit 34.7 % Mean Corpuscular Volume 84.4 fL Mean Corpuscular Hemoglobin 26.3 pg Mean Corpuscular Hemoglobin Concent 31.1 g/dl Platelet Count 276 K/uL Mean Platelet Volume 9.9 fL Neutrophils (%) (Auto) 68.3 % Lymphocytes (%) (Auto) 19.1 % Monocytes (%) (Auto) 9.5 % Eosinophils (%) (Auto) 2.1 % Basophils (%) (Auto) 0.8 % Neutrophils # (Auto) 4.23 K/uL Lymphocytes # (Auto) 1.18 K/uL Monocytes # (Auto) 0.59 K/uL Eosinophils # (Auto) 0.13 K/uL Basophils # (Auto) 0.05 K/uL RDW Standard Deviation 56.0 fL RDW Coefficient of Variation 18.2 % Immature Granulocyte % (Auto) 0.2 % Immature Granulocyte # (Auto) 0.01 K/uL Prothrombin Time 13.2 SECONDS Prothromb Time International Ratio 1.2 Activated Partial Thromboplast Time 30.1 SECONDS Partial Thromboplastin Ratio 1.2 Sodium Level 141 mmol/L Potassium Level 4.9 mmol/L Chloride Level 111 mmol/L Carbon Dioxide Level 18 mmol/L Anion Gap 12.0 mmol/L Blood Urea Nitrogen 41 mg/dl Creatinine 4.10 mg/dl Est Creatinine Clear Calc Drug Dose 37.7 ml/min Estimated GFR () 17.9 Estimated GFR (Non- 15.4 BUN/Creatinine Ratio 9.9 Random Glucose 87 mg/dl Estimated Average Glucose 146 mg/dl Hemoglobin A1c 6.7 % Calcium Level 7.5 mg/dl Magnesium Level 2.1 mg/dl Total Bilirubin 0.7 mg/dl Direct Bilirubin 0.3 mg/dl Aspartate Amino Transf (AST/SGOT) 44 U/L Alanine Aminotransferase (ALT/SGPT) 28 U/L Alkaline Phosphatase 114 U/L Total Protein 6.3 gm/dl Albumin 2.4 gm/dl Triglycerides Level 90 mg/dl Cholesterol Level 135 mg/dl HDL Cholesterol 44 mg/dl LDL Cholesterol, Calculated 73 mg/dl VLDL Cholesterol, Calculated 18 mg/dl Cholesterol/HDL Ratio 3.1 Test 10/02/16 08:50 Transferrin % Saturation % Assessment and Plan 56-year-old white male admitted because of dyspnea on exertion, Bilateral lower extremity cellulitis on 09/30/2016 acute on chronic possible diastolic CHF exacerbation which is evidenced with dyspnea on exertion for several months, getting worse for 2 week, associated with significant weight gain, and the results from echo report in below stable , he got Lasix with albumin IV for 2-3 dose since admission Will hold her diuretic temporarily for now until seen by skin washer because of worsening renal function on diuretic, Continue beta rafael, no LYLE inhibitor or ARB for now because possible acute on chronic kidney failure, Fluid restriction, in and out Acute kidney failure, no baseline BUN/creatinine to compare, today's getting worse BUN/creatinine improved after diuretic, which support the kidney failure from CHF and renal congestion Nephrology consult Elevated troponin, likely because of mismatch and demanding ischemia, and CHF exacerbation, I request cardiology consult because of CHF exacerbation, diastolic dysfunction and worsening renal function on diuretic, possible cardiorenal syndrome Echo report all 10/01/2016 per report: * 1. Normal left ventricular size with probable low-normal systolic function. Estimated EF 50-55%. No definite regional wall motion abnormalities. Severe concentric left ventricular hypertrophy. Type 2 diastolic dysfunction; tissue Doppler suggests elevated left atrial pressure. * 2. Right ventricle not well visualized but appears to be moderately dilated. * 3. The left atrium is moderately dilated. * 4. There is mild mitral regurgitation. * 5. Technically difficult study, enhanced with IV Definity. Poor image quality , which may affect interpretation. * 6. No prior study available for comparison. * Bilateral lower extremity cellulitis stable Has been on on daptomycin 6 mg/kg IV daily, and Zosyn 3.375 mg IV every 12 hours since [place] Checked Doppler ultrasound to has rule out DVT, I will stop IV antibiotics and start oral Augmentin because of improving of cellulitis, and patient do not show significant severe infection, 2/7 days Uncontrolled hypertension: Continue beta rafael, hydralazine, can consider Amlodipine Continue duo neb Morbid obesity Checked fasting lipid panel, which shows that total cholesterol 200, LDL less than 100, he does not have dyslipidemia he do not need any medication for now Check HbA1c, which is 6.7, and random blood glucose never more than 200, therefore I don't believe he has diabetic, no need any medicine for now TSH within normal limits Patient has no PCP, did not see PCP for morning 2 year 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
--- NOTE | 2016-10-02 10:13 | Cardiology Consultation ---
Cardiology Consultation Date of Consultation: Oct 02, 2016. Requesting Physician: Dr. Abdullahi Reason for Consultation: Anasarca, peripheral edema Pt evaluation today including: conversation w/ patient, physical exam, lab review, review of studies, review of inpatient medication list History of Present Illness This is a 56-year-old male with a long history of hypertension for which she is noncompliant with medications, obesity and long-standing peripheral edema. He presents now with worsening of his lower extremity edema as well as erythema for the last month or so. He also has progressive dyspnea on exertion but denies exertional chest discomfort. He has no palpitations. Past Medical/Surgical History (1) Proteinuria (2) Hypertension (3) STEVE (acute kidney injury) (4) Anasarca Family History Cancer Diabetes mellitus Heart disease Hypertension Kidney disease Kidney stones Lung disease Social History Smoking Status: Never Smoker History of Alcohol Use: No Review of Systems Constitutional: No fever, No weakness, No weight loss Respiratory: + shortness of breath, No cough, No dyspnea at rest, No dyspnea on exertion, No hemoptysis, No sputum, No wheezing Cardiac: + edema, No PND, No chest pain, No claudication, No orthopnea, No palpitations Abdomen: No GI bleeding, No diarrhea, No nausea, No pain, No vomiting Male : No nocturia more than once/night, No sexual dysfunction, No slowing stream, No urinary frequency Neurologic: No balance problems, No numbness/tingling, No paralysis, No weakness Heme: No abnormal bleeding/bruising, No clotting problems Endo: No fatigue Skin: No problem reported All Other Systems: Reviewed and Negative Allergies Coded Allergies: No Known Allergies (Unverified , 09/30/16) Medications Current Inpatient Medications Medications (Trade) Dose Ordered Sig/Chavez Route Start Time Stop Time Status Last Admin Dose Admin Acetaminophen (Tylenol Tab) 650 mg Q4H PRN PO 09/30/16 19:15 10/30/16 19:14 Zolpidem Tartrate 5 mg 5 mg HSZ PRN PO 09/30/16 19:15 10/30/16 19:14 Daptomycin 1250 mg/Sodium Chloride 75 ml @ 100 mls/hr Q24H IV 10/01/16 22:00 10/09/16 22:44 10/02/16 00:04 100 MLS/HR Piperacillin Sod/ Tazobactam Sod/ Dextrose (Zosyn Iv/D5 100ml) 120 ml @ 30 mls/hr Q8H IV 10/01/16 02:00 10/11/16 01:59 10/02/16 01:29 30 MLS/HR Ondansetron HCl (Zofran Inj) 4 mg Q6H PRN IV 09/30/16 19:30 10/30/16 19:29 Insulin Aspart (novoLOG ASPART) SLIDING SCALE If C... ACHS SC 09/30/16 21:00 10/30/16 20:59 Glucose (Glucose 40% Gel) UD PRN PO 09/30/16 19:30 10/30/16 19:29 Glucose (Glucose Chew Tab) 1 tabs UD PRN PO 09/30/16 19:30 10/30/16 19:29 Dextrose (Dextrose 50% 50ML Syringe) 50 ml UD PRN IV 09/30/16 19:30 10/30/16 19:29 Glucagon (Glucagon Inj) 1 mg UD PRN SQ 09/30/16 19:30 10/30/16 19:29 Hydralazine HCl (HydrALAZINE INJ) 10 mg Q4H PRN IV. 09/30/16 19:45 10/30/16 19:44 10/01/16 17:03 10 MG Metoprolol Tartrate (Lopressor Tab) 50 mg BID PO 09/30/16 21:00 10/30/16 20:59 10/02/16 07:59 50 MG Piperacillin Sod/ Tazobactam Sod 1 ea 1 ea UD PRN N/A 09/30/16 21:30 10/30/16 21:29 Furosemide/ Albumin Human (Lasix Inj/ Albumin 25%) 54 ml @ 54 mls/hr Q12 IV 10/01/16 09:00 10/03/16 08:59 Future Hold 10/01/16 22:06 54 MLS/HR Hydralazine HCl (Apresoline Tab) 10 mg Q8 PO 10/01/16 22:00 10/31/16 21:59 10/02/16 05:43 10 MG Miconazole Nitrate (Desenex Powder) 1 appln QS PRN EXT 10/01/16 20:45 10/31/16 20:44 Physical Exam Vital Signs Past 12 Hours Date Time Temp Pulse Resp B/P Pulse Ox O2 Delivery O2 Flow Rate FiO2 10/02/16 08:00 Room Air 10/02/16 07:33 36.7 66 16 176/85 95 Room Air 10/02/16 04:00 Room Air 10/02/16 03:38 36.4 64 21 150/77 92 Room Air 10/01/16 23:59 Room Air 10/01/16 23:24 36.3 66 22 147/76 93 Room Air Constitutional: General Apperance: obese Level of Distress: NAD Psychiatric: Mental Status: active & alert Head: normocephalic Eyes: EOM: EOMI ENMT: normal ENT inspection, hearing grossly normal Neck: supple, no masses Lungs: Respiratory effort: no dyspnea, good air movement Auscultation: breath sounds normal, no wheezing Cardiovascular: Heart Auscultation: RRR, no murmurs, no rubs, no gallops Peripheral Pulses: Bruits: none appreciated Abdomen: Bowel Sounds: normal Inspection & Palpation: soft, no tenderness, guarding & rebound, no masses Musculoskeletal: normal strength (5/5 throughout) Extremities: edema (+3 bilateral lower extremity edema with signs of chronic venous stasis) Neurologic: Cranial Nerves: grossly intact Sensation: grossly intact Data Laboratory Results: Last 24 Hours Test 10/01/16 11:15 10/01/16 15:01 10/01/16 16:41 10/01/16 17:22 Bedside Glucose 88 mg/dl 91 mg/dl Total Creatine Kinase 965 U/L 1031 U/L Creatine Kinase MB 15.7 ng/ml Creatine Kinase MB Ratio 1.6 Troponin I 0.046 ng/ml Sodium Level 140 mmol/L Potassium Level 5.0 mmol/L Chloride Level 110 mmol/L Carbon Dioxide Level 19 mmol/L Anion Gap 11.0 mmol/L Blood Urea Nitrogen 36 mg/dl Creatinine 3.90 mg/dl Est Creatinine Clear Calc Drug Dose 39.8 ml/min Estimated GFR () 19.0 Estimated GFR (Non- 16.4 BUN/Creatinine Ratio 9.3 Random Glucose 116 mg/dl Calcium Level 7.8 mg/dl Magnesium Level 2.0 mg/dl Test 10/01/16 20:18 10/01/16 21:50 10/02/16 05:58 3/15/17 06:45 Bedside Glucose 93 mg/dl 93 mg/dl Troponin I 0.046 ng/ml 0.041 ng/ml White Blood Count 6.19 K/uL Red Blood Count 4.11 M/uL Hemoglobin 10.8 g/dL Hematocrit 34.7 % Mean Corpuscular Volume 84.4 fL Mean Corpuscular Hemoglobin 26.3 pg Mean Corpuscular Hemoglobin Concent 31.1 g/dl Platelet Count 276 K/uL Mean Platelet Volume 9.9 fL Neutrophils (%) (Auto) 68.3 % Lymphocytes (%) (Auto) 19.1 % Monocytes (%) (Auto) 9.5 % Eosinophils (%) (Auto) 2.1 % Basophils (%) (Auto) 0.8 % Neutrophils # (Auto) 4.23 K/uL Lymphocytes # (Auto) 1.18 K/uL Monocytes # (Auto) 0.59 K/uL Eosinophils # (Auto) 0.13 K/uL Basophils # (Auto) 0.05 K/uL RDW Standard Deviation 56.0 fL RDW Coefficient of Variation 18.2 % Immature Granulocyte % (Auto) 0.2 % Immature Granulocyte # (Auto) 0.01 K/uL Prothrombin Time 13.2 SECONDS Prothromb Time International Ratio 1.2 Activated Partial Thromboplast Time 30.1 SECONDS Partial Thromboplastin Ratio 1.2 Sodium Level 141 mmol/L Potassium Level 4.9 mmol/L Chloride Level 111 mmol/L Carbon Dioxide Level 18 mmol/L Anion Gap 12.0 mmol/L Blood Urea Nitrogen 41 mg/dl Creatinine 4.10 mg/dl Est Creatinine Clear Calc Drug Dose 37.7 ml/min Estimated GFR () 17.9 Estimated GFR (Non- 15.4 BUN/Creatinine Ratio 9.9 Random Glucose 87 mg/dl Estimated Average Glucose 146 mg/dl Hemoglobin A1c 6.7 % Calcium Level 7.5 mg/dl Magnesium Level 2.1 mg/dl Total Bilirubin 0.7 mg/dl Direct Bilirubin 0.3 mg/dl Aspartate Amino Transf (AST/SGOT) 44 U/L Alanine Aminotransferase (ALT/SGPT) 28 U/L Alkaline Phosphatase 114 U/L Total Protein 6.3 gm/dl Albumin 2.4 gm/dl Triglycerides Level 90 mg/dl Cholesterol Level 135 mg/dl HDL Cholesterol 44 mg/dl LDL Cholesterol, Calculated 73 mg/dl VLDL Cholesterol, Calculated 18 mg/dl Cholesterol/HDL Ratio 3.1 Test 10/02/16 08:50 Transferrin % Saturation % Imaging: Echocardiography shows perhaps low normal left ventricular function, not significantly reduced. Severe left ventricular hypertrophy. EKG: Sinus rhythm, normal Telemetry reviewed: Sinus rhythm, no significant arrhythmia Assessment & Plan #1. Acute on chronic kidney disease: Nephrology following, I imagine diabetes and hypertension were contributors. #2. Long-standing hypertension: Noncompliant with medications, he has evidence of target organ damage and his blood pressure needs to be controlled. I would go up on beta-blockade if possible. #3. Left ventricular hypertrophy: He almost certainly has diastolic dysfunction and possibly the beginnings of hypertensive cardiomyopathy and therefore his cardiac function may contribute somewhat to his edema although the primary cause is probably his kidney function. There is nothing to do with this other than controlling his hypertension that it will either remain stable or resolved somewhat. #4. Edema: Probably due to fluid retention caused by kidney disease, although contribution of elevated pressures due to left ventricular diastolic dysfunction is likely. #5. Elevated cardiac enzymes: His troponin is minimally elevated, suspect this is all demand ischemia, there is no evidence that this is infarction. He has exertional shortness of breath but denies exertional chest discomfort. I would not pursue an evaluation for coronary disease at this time. Thank you for allowing me to participate in his care.
[2016-10-02] MEDS ORDERED: FUROSEMIDE INJ 40 MG in SYRINGE 0 ML IV ONE (10:30)
[2016-10-02] MEDS: AMLODIPINE BESYLATE 5 MG TAB PO SCH (10:34)
[2016-10-02 10:42] LABS: FERRITIN 66.6 ng/ml (8.0-388.0); PHOSPHORUS 4.6 mg/dl (2.5-4.9)
--- NOTE | 2016-10-02 11:19 | DIAGNOSTIC IMAGING REPORT ---
RENAL ULTRASOUND HISTORY: Acute kidney injury. COMPARISON: None. FINDINGS: Suboptimal evaluation of the kidneys due to the patient's large body habitus. Right kidney: 11.5 cm. No hydronephrosis. Normal corticomedullary differentiation and cortical thickness. Left kidney: 11.1 cm. No hydronephrosis. Normal corticomedullary differentiation and cortical thickness. Bladder: Decompressed and therefore not well visualized. Enlarged spleen measuring 16.4 cm in length. IMPRESSION: 1. Suboptimal evaluation due to the patient's body habitus. 2. The kidneys appear to be within normal limits. 3. The bladder is not well-visualized due to underdistention. 4. Splenomegaly. Electronically signed by: Brandon Rodrigues M.D. 10/02/2016 11:18 AM Dictated Date/Time: 10/02/2016 11:16 AM
--- NOTE | 2016-10-02 11:36 | Nephrology Consultation ---
Nephrology Consultation Date & Providers Date of Consultation: Oct 02, 2016. Primary Care Provider: Elise Estrada D.O. Referring Provider: Reason for Consultation Evaluation and management for STEVE, metabolic acidosis and volume overload History of Present Illness Fer is a 56 year old male with PMH significant for hypertension, T2DM and morbid obesity presented to the hospital with them worsening lower extremity swelling for more than 2 weeks and weight gain. Admitted with a diagnosis of lower extremity cellulitis and anasarca. Nephrologic consult was requested as his found to have acute kidney injury, metabolic acidosis and volume overload. electronic medical records including labs and imaging are reviewed in detail during patient's visit. Fer has chronic lower extremity edema and prior history of lower extremity cellulitis. Over last few months his lower extremity swelling was worsening and since July he gained almost 30 pounds. Lower extremity edema worsen further over last 2 weeks and he noticed redness and superficial ulceration and oozing and decided to come to the emergency room for further evaluation. On admission was started on Zosyn and daptomycin. Initial blood culture was negative but wound culture came back positive for MSSA. No prior history of chronic kidney disease however, we do not have any prior records available. On admission creatinine was 3.6 which worsened over last 2 days to 4.1 this morning. also has gap metabolic acidosis and bicarb has been 18-19. Found to have anemia with significant iron deficiency. PTH was above 600. Urinalysis was positive for 3+ proteinuria and microscopic hematuria. Renal USG rt kidney 10 cm and left 11.1 cm, with cortical thinning. He reports taking 2 Aleve a day for last few weeks. No recent antibiotic or PPI use. He is a non smoker, no f/h of CKD, ESRD. Hypertension was diagnosed more than 20 years ago overall has been poorly- controlled and he has not been seeing a physician or taking medications for last more than 2 and half years. Although he gives the history of diabetes for more than 30 years, his blood sugar seems to be very well controlled without any medications, A1c was 6.5 yesterday. No history of coronary artery disease, had a echo on 10/01/2016 showing ejection fraction 55-60% , severe concentric LVH and grade 2 diastolic dysfunction. Allergies Coded Allergies: No Known Allergies (Unverified , 09/30/16) Inpatient Medications Current Inpatient Medications Medications (Trade) Dose Ordered Sig/Chavez Route Start Time Stop Time Status Last Admin Dose Admin Acetaminophen (Tylenol Tab) 650 mg Q4H PRN PO 09/30/16 19:15 10/30/16 19:14 Zolpidem Tartrate 5 mg 5 mg HSZ PRN PO 09/30/16 19:15 10/30/16 19:14 Daptomycin 1250 mg/Sodium Chloride 75 ml @ 100 mls/hr Q24H IV 10/01/16 22:00 10/09/16 22:44 10/02/16 00:04 100 MLS/HR Piperacillin Sod/ Tazobactam Sod/ Dextrose (Zosyn Iv/D5 100ml) 120 ml @ 30 mls/hr Q8H IV 10/01/16 02:00 10/11/16 01:59 10/02/16 01:29 30 MLS/HR Ondansetron HCl (Zofran Inj) 4 mg Q6H PRN IV 09/30/16 19:30 10/30/16 19:29 Insulin Aspart (novoLOG ASPART) SLIDING SCALE If C... ACHS SC 09/30/16 21:00 10/30/16 20:59 Glucose (Glucose 40% Gel) UD PRN PO 09/30/16 19:30 10/30/16 19:29 Glucose (Glucose Chew Tab) 1 tabs UD PRN PO 09/30/16 19:30 10/30/16 19:29 Dextrose (Dextrose 50% 50ML Syringe) 50 ml UD PRN IV 09/30/16 19:30 10/30/16 19:29 Glucagon (Glucagon Inj) 1 mg UD PRN SQ 09/30/16 19:30 10/30/16 19:29 Hydralazine HCl (HydrALAZINE INJ) 10 mg Q4H PRN IV. 09/30/16 19:45 10/30/16 19:44 10/01/16 17:03 10 MG Metoprolol Tartrate (Lopressor Tab) 50 mg BID PO 09/30/16 21:00 10/30/16 20:59 10/02/16 07:59 50 MG Piperacillin Sod/ Tazobactam Sod 1 ea 1 ea UD PRN N/A 09/30/16 21:30 10/30/16 21:29 Furosemide/ Albumin Human (Lasix Inj/ Albumin 25%) 54 ml @ 54 mls/hr Q12 IV 10/01/16 09:00 10/03/16 08:59 Future Hold 10/01/16 22:06 54 MLS/HR Hydralazine HCl (Apresoline Tab) 10 mg Q8 PO 10/01/16 22:00 10/31/16 21:59 10/02/16 05:43 10 MG Miconazole Nitrate (Desenex Powder) 1 appln QS PRN EXT 10/01/16 20:45 10/31/16 20:44 Amlodipine Besylate 10 mg 10 mg QAM PO 10/03/16 09:00 11/02/16 08:59 UNV Furosemide 40 mg/ Syringe 4 ml @ 4 mls/min BID IV 10/02/16 21:00 11/01/16 20:59 UNV Furosemide/Syringe (Lasix Inj/ Syringe) 4 ml @ 4 mls/min ONE IV 10/02/16 09:45 11/01/16 09:44 UNV Family History Cancer Diabetes mellitus Heart disease Hypertension Kidney disease Kidney stones Lung disease Social History Smoking Status: Never Smoker Smokeless Tobacco Use: No Drug Use: none Occupation: employed Review of Systems A complete review of systems was performed. Pertinent positives are noted above. All other systems are negative. Physical Exam Date Time Temp Pulse Resp B/P Pulse Ox O2 Delivery O2 Flow Rate FiO2 10/02/16 08:00 Room Air 10/02/16 07:33 36.7 66 16 176/85 95 Room Air 10/02/16 04:00 Room Air 10/02/16 03:38 36.4 64 21 150/77 92 Room Air 10/01/16 23:59 Room Air 10/01/16 23:24 36.3 66 22 147/76 93 Room Air 10/01/16 20:17 36.3 70 18 175/93 94 Room Air 10/01/16 17:52 70 163/72 10/01/16 16:00 96 Room Air 10/01/16 15:13 36.3 65 18 173/82 96 Room Air 10/01/16 12:00 Room Air 10/01/16 11:27 36.9 86 18 146/63 95 10/01/16 11:15 68 98 GENERAL: Middle-aged male, AAA x 3, morbidly obese, pleasant, healthy- appearing, not in any distress. HEENT: Atraumatic, normocephalic. NECK: Supple, no JVD, no carotid bruit appreciated. ENT: No sinus tenderness MOUTH and THROAT: Moist oral mucosa, no oral ulcer or pharyngeal erythema RESPIRATORY: Normal breathing efforts, no accessory muscle use, clear to auscultation bilaterally, no wheezes or rales. CARDIOVASCULAR: S1, S2 normal, rate rhythm regular. ABDOMEN: Soft, obese, pitting edema, nontender, positive bowel sound. MUSCULOSKELETAL: No CVA tenderness. No joint swelling, erythema or tenderness. Normal range of motion. SKIN: No skin rash EXTREMITY: 2-3 + B/L lower extremity edema, erythema, superficial skin ulceration. NEURO: No gross focal neurological deficit, speech fluent. PSYCHIATRY: Normal mood and judgment Laboratory Results Last 24 Hours Test 10/01/16 11:15 10/01/16 15:01 10/01/16 16:41 10/01/16 17:22 Bedside Glucose 88 mg/dl 91 mg/dl Total Creatine Kinase 965 U/L 1031 U/L Creatine Kinase MB 15.7 ng/ml Creatine Kinase MB Ratio 1.6 Troponin I 0.046 ng/ml Sodium Level 140 mmol/L Potassium Level 5.0 mmol/L Chloride Level 110 mmol/L Carbon Dioxide Level 19 mmol/L Anion Gap 11.0 mmol/L Blood Urea Nitrogen 36 mg/dl Creatinine 3.90 mg/dl Est Creatinine Clear Calc Drug Dose 39.8 ml/min Estimated GFR () 19.0 Estimated GFR (Non- 16.4 BUN/Creatinine Ratio 9.3 Random Glucose 116 mg/dl Calcium Level 7.8 mg/dl Magnesium Level 2.0 mg/dl Test 10/01/16 20:18 10/01/16 21:50 10/02/16 05:58 10/02/16 06:45 Bedside Glucose 93 mg/dl 93 mg/dl Troponin I 0.046 ng/ml 0.041 ng/ml White Blood Count 6.19 K/uL Red Blood Count 4.11 M/uL Hemoglobin 10.8 g/dL Hematocrit 34.7 % Mean Corpuscular Volume 84.4 fL Mean Corpuscular Hemoglobin 26.3 pg Mean Corpuscular Hemoglobin Concent 31.1 g/dl Platelet Count 276 K/uL Mean Platelet Volume 9.9 fL Neutrophils (%) (Auto) 68.3 % Lymphocytes (%) (Auto) 19.1 % Monocytes (%) (Auto) 9.5 % Eosinophils (%) (Auto) 2.1 % Basophils (%) (Auto) 0.8 % Neutrophils # (Auto) 4.23 K/uL Lymphocytes # (Auto) 1.18 K/uL Monocytes # (Auto) 0.59 K/uL Eosinophils # (Auto) 0.13 K/uL Basophils # (Auto) 0.05 K/uL RDW Standard Deviation 56.0 fL RDW Coefficient of Variation 18.2 % Immature Granulocyte % (Auto) 0.2 % Immature Granulocyte # (Auto) 0.01 K/uL Prothrombin Time 13.2 SECONDS Prothromb Time International Ratio 1.2 Activated Partial Thromboplast Time 30.1 SECONDS Partial Thromboplastin Ratio 1.2 Sodium Level 141 mmol/L Potassium Level 4.9 mmol/L Chloride Level 111 mmol/L Carbon Dioxide Level 18 mmol/L Anion Gap 12.0 mmol/L Blood Urea Nitrogen 41 mg/dl Creatinine 4.10 mg/dl Est Creatinine Clear Calc Drug Dose 37.7 ml/min Estimated GFR () 17.9 Estimated GFR (Non- 15.4 BUN/Creatinine Ratio 9.9 Random Glucose 87 mg/dl Estimated Average Glucose 146 mg/dl Hemoglobin A1c 6.7 % Calcium Level 7.5 mg/dl Magnesium Level 2.1 mg/dl Total Bilirubin 0.7 mg/dl Direct Bilirubin 0.3 mg/dl Aspartate Amino Transf (AST/SGOT) 44 U/L Alanine Aminotransferase (ALT/SGPT) 28 U/L Alkaline Phosphatase 114 U/L Total Protein 6.3 gm/dl Albumin 2.4 gm/dl Triglycerides Level 90 mg/dl Cholesterol Level 135 mg/dl HDL Cholesterol 44 mg/dl LDL Cholesterol, Calculated 73 mg/dl VLDL Cholesterol, Calculated 18 mg/dl Cholesterol/HDL Ratio 3.1 Test 10/02/16 08:50 Transferrin % Saturation % Impression (1) STEVE (acute kidney injury) (2) Metabolic acidosis (3) Hypertension (4) Anemia (5) Proteinuria (6) Bilateral lower leg cellulitis (7) Anasarca (8) Secondary hyperparathyroidism of renal origin Michael is a 56 year old male with Hypertension, T2DM, morbid obesity Admitted to the hospital with bilateral lower extremity cellulitis and anasarca. started empirically on Zosyn and daptomycin, initial lower extremity wound culture was positive for MSSA, blood culture negative. He was found to have acute kidney injury, on admission creatinine was 3.6 which slightly worsened over last 2 days to 4.1, associated with gap metabolic acidosis and significant weight gain over last few months. Urinalysis showed 3 + proteinuria and microscopic hematuria. renal ultrasound with electively small size kidney, cortical thinning but without any postrenal obstruction. No prior record available so it is unclear whether this is all acute kidney injury or in fact the patient has underlying advanced CKD which seems more likely as patient has been having high grade proteinuria, poorly-controlled hypertension , diabetes and morbid obesity. Has anemia and hyperparathyroidism which also could be due to advanced CKD. Has diabetes, morbid obesity, LVH with grade 2 diastolic dysfunction. Patient has not been seeing a physician heart taking medications for last more than 2 years. Recommendations --reviewed renal ultrasound, kidneys are electively small with cortical thinning but no postrenal obstruction --Zosyn dose should be decreased considering GFR less than 20 --start on Lasix 40 IV twice a day --start amlodipine 10 milligrams p.o. daily --check vit D --suggest GI w/u for iron deficiency anemia -- start on calcitriol 0.25 micrograms 3 times a week --Venofer 200 mg IV every other day for 5 doses --monitor renal function daily --avoid all NSAID's --renal diet Thank you for allowing me to participate in your patient's care. It was a pleasure to see Danielito This chart was completed utilizing [employer] Speech and voice recognition software. Grammatical errors, random word insertions, pronoun errors and incomplete sentences are occasional consequences of this system. Any questions or concerns about the content, text or information contained within the body of this dictation should be addressed directly to the physician for clarification.
[2016-10-02] MEDS ORDERED: IRON SUCROSE INJ 200 MG in SODIUM CHLORIDE 0.9% 100ML 100 ML IV SCH ×2 (11:45→13:30)
[2016-10-02 13:45] LABS: URINE PROTIEN/CREAT RATIO 6.5 (0-0.2); URINE TOTAL PROTEIN 716.3 mg/dl (0-11.9)
[2016-10-02] MEDS ORDERED: PIPERACILL/TAZOBAC IV 4.5 GM in DEXTROSE 5% 100ML 100 ML IV SCH (14:00)
[2016-10-02] MEDS: IRON SUCROSE INJ 200 MG in SODIUM CHLORIDE 0.9% 100ML 100 ML IV SCH (14:00)
[2016-10-02] MEDS: FUROSEMIDE INJ 40 MG in SYRINGE 0 ML IV SCH (16:31)
[2016-10-02] MEDS: HydrALAZINE HCL 20 MG/ML VIAL IV. PRN (16:44)
[2016-10-03] VITALS (7 sets, daily range): BP systolic 138–170; BP diastolic 69–89; PULSE 61–79; TEMP 36.3–36.9; O2SAT 93–96
[2016-10-03] MEDS: HydrALAZINE 10 MG TAB PO SCH (05:41)
[2016-10-03 07:50] LABS: BASO % 0.7 %; BASO ABS # 0.04 K/uL (0-0.2); COMPLETE YES; EOS % 2.3 %; HEMATOCRIT 34.8 % (42-52); IG% 0.2 %; LYMPH % 20.3 %; LYMPH ABS # 1.16 K/uL (1.2-3.4); MEAN CELL VOLUME 84.3 fL (80-100); MEAN CORPUSCULAR HEMOGLOBIN 26.2 pg (25-34); MEAN PLATELET VOLUME 10.1 fL (7.4-10.4); NEUT % 65.5 %; PLATELET COUNT 266 K/uL (130-400); RED BLOOD COUNT 4.13 M/uL (4.7-6.1); WHITE BLOOD COUNT 5.72 K/uL (4.8-10.8)
[2016-10-03 08:06] LABS: INR 1.2 (0.9-1.1); PARTIAL THROMBOPLASTIN RATIO 1.2; PROTHROMBIN TIME (PATIENT) 13.1 SECONDS (9.0-12.0)
[2016-10-03 08:35] LABS: BUN/CREATININE RATIO 9.2 (10-20); CALCIUM 7.8 mg/dl (8.5-10.1); CREATININE 4.6 mg/dl (0.60-1.40); MAGNESIUM 2.2 mg/dl (1.8-2.4); POTASSIUM 4.7 mmol/L (3.5-5.1)
[2016-10-03] MEDS ORDERED: NURSING VERBAL MED ORDER ONE (08:45)
[2016-10-03] MEDS ORDERED: ERGOCALCIFEROL 50,000 INTER.UNIT CAP PO SCH (09:00)
[2016-10-03] MEDS: FUROSEMIDE INJ 40 MG in SYRINGE 0 ML IV SCH (09:00)
--- NOTE | 2016-10-03 09:26 | Progress Note ---
Subjective Date of Service: Oct 03, 2016. Subjective Pt evaluation today including: conversation w/ patient, physical exam, chart review, lab review, review of studies, conversation w/ cardiology consultants, review of inpatient medication list Voiding: no voiding problems Reports significant decreased urine output, however otherwise doing okay, up and walk, eating drinking, deny constipation deny fever and chill Problem List Medical Problems: (1) CHF exacerbation Status: Acute Review of Systems Constitutional: No chills, No fatigue, No fever, No problem reported, No sweats , No weakness, No weight loss Eyes: No diplopia, No discharge, No eye pain, No redness, No worsening of vision ENT: No dental problems, No hearing loss, No nasal symptoms, No sore throat, No tinnitus, No trouble swallowing, No unusual epistaxis Respiratory: No cough, No dyspnea at rest, No dyspnea on exertion, No hemoptysis, No shortness of breath, No sputum, No wheezing Cardiac: No PND, No chest pain, No claudication, No edema, No orthopnea, No palpitations Abdomen: No constipation, No diarrhea, No nausea, No pain, No vomiting Musculoskeletal: No calf pain, No joint pain, No muscle pain, No swelling Male : No dysuria, No hematuria, No incontinence, No nocturia more than once/ night, No slowing stream, No urinary frequency Neurologic: No balance problems, No memory loss, No numbness/tingling, No paralysis, No vertigo, No weakness Psychiatric: No anhedonism, No anxiety, No depression symptoms, No insomnia, No substance abuse Heme: No abnormal bleeding/bruising, No clotting problems, No night sweats, No swollen lymph nodes Endo: No excessive thirst, No excessive urination, No fatigue Skin: + rash (is better), No bleeding, No color change, No itch, No new/ changing skin lesions Objective Vital Signs Date Time Temp Pulse Resp B/P Pulse Ox O2 Delivery O2 Flow Rate FiO2 10/03/16 08:03 36.3 72 18 170/89 95 Room Air 10/03/16 08:00 Room Air 10/03/16 04:01 36.4 64 22 151/72 95 Room Air 10/03/16 04:00 Room Air 10/03/16 00:00 96 Room Air 10/02/16 23:25 36.4 63 20 168/75 94 Room Air 10/02/16 22:50 63 164/78 10/02/16 20:00 93 Room Air 10/02/16 19:29 36.4 69 18 156/80 94 Room Air 10/02/16 16:40 167/81 10/02/16 16:00 Room Air 10/02/16 15:30 36.4 66 16 171/86 95 Room Air 10/02/16 11:13 Room Air 10/02/16 10:38 36.6 69 16 159/63 90 Room Air Physical Exam General Appearance: WD/WN, no apparent distress, + obese Eyes: normal inspection, PERRL, EOMI, sclerae normal ENT: normal ENT inspection, hearing grossly normal, pharynx normal Neck: supple, no adenopathy, thyroid normal, no JVD, no carotid bruits, trachea midline Respiratory/Chest: chest non-tender, normal breath sounds, no respiratory distress, no accessory muscle use, + decreased breath sounds Cardiovascular: regular rate, rhythm, no edema, no gallop, no JVD, no murmur Abdomen: normal bowel sounds, non tender, soft, no organomegaly, no pulsatile mass Extremities: normal range of motion, non-tender, normal inspection, no pedal edema, no calf tenderness, normal capillary refill, pelvis stable Neurologic/Psychiatric: 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, no motor/sensory deficits, alert, normal mood/affect, oriented x 3 Skin: normal color, warm/dry, no rash Lymphatic: no adenopathy Laboratory Results Last 24 Hours Test 10/02/16 09:50 10/02/16 11:19 10/02/16 12:06 10/02/16 13:00 Phosphorus Level 4.6 mg/dl Iron Level 25 mcg/dl Total Iron Binding Capacity 255 mcg/dl Transferrin 208 mg/dl Transferrin % Saturation 9 % Ferritin 66.6 ng/ml Parathyroid Hormone (Intact) 622.4 pg/mL Bedside Glucose 96 mg/dl 25-Hydroxy Vitamin D Total 4.9 ng/ml Urine Random Creatinine 110.0 mg/dl Urine Random Total Protein 716.3 mg/dl Urine Random Sodium 56 mEq/L Urine Protein/Creatinine Ratio 6.5 Test 10/02/16 16:23 10/02/16 20:18 10/03/16 07:30 10/03/16 07:44 Bedside Glucose 102 mg/dl 119 mg/dl 89 mg/dl White Blood Count 5.72 K/uL Red Blood Count 4.13 M/uL Hemoglobin 10.8 g/dL Hematocrit 34.8 % Mean Corpuscular Volume 84.3 fL Mean Corpuscular Hemoglobin 26.2 pg Mean Corpuscular Hemoglobin Concent 31.0 g/dl Platelet Count 266 K/uL Mean Platelet Volume 10.1 fL Neutrophils (%) (Auto) 65.5 % Lymphocytes (%) (Auto) 20.3 % Monocytes (%) (Auto) 11.0 % Eosinophils (%) (Auto) 2.3 % Basophils (%) (Auto) 0.7 % Neutrophils # (Auto) 3.75 K/uL Lymphocytes # (Auto) 1.16 K/uL Monocytes # (Auto) 0.63 K/uL Eosinophils # (Auto) 0.13 K/uL Basophils # (Auto) 0.04 K/uL RDW Standard Deviation 56.4 fL RDW Coefficient of Variation 18.2 % Immature Granulocyte % (Auto) 0.2 % Immature Granulocyte # (Auto) 0.01 K/uL Prothrombin Time 13.1 SECONDS Prothromb Time International Ratio 1.2 Activated Partial Thromboplast Time 31.2 SECONDS Partial Thromboplastin Ratio 1.2 Sodium Level 141 mmol/L Potassium Level 4.7 mmol/L Chloride Level 111 mmol/L Carbon Dioxide Level 18 mmol/L Anion Gap 12.0 mmol/L Blood Urea Nitrogen 42 mg/dl Creatinine 4.60 mg/dl Est Creatinine Clear Calc Drug Dose 33.7 ml/min Estimated GFR () 15.6 Estimated GFR (Non- 13.4 BUN/Creatinine Ratio 9.2 Random Glucose 92 mg/dl Calcium Level 7.8 mg/dl Magnesium Level 2.2 mg/dl Total Bilirubin 0.7 mg/dl Direct Bilirubin 0.3 mg/dl Aspartate Amino Transf (AST/SGOT) 57 U/L Alanine Aminotransferase (ALT/SGPT) 33 U/L Alkaline Phosphatase 118 U/L Total Protein 6.6 gm/dl Albumin 2.4 gm/dl Test 10/03/16 08:55 Assessment and Plan 56-year-old white male admitted because of dyspnea on exertion, Bilateral lower extremity cellulitis on 09/30/2016, renal function continue getting worse acute on chronic possible diastolic CHF exacerbation which is evidenced with dyspnea on exertion for several months, getting worse for 2 week, associated with significant weight gain, and the results from echo report in below stable , he got Lasix with albumin IV for 2-3 dose since admission, then switch to IV Lasix 40 twice a day, Today's creatinine is getting worse up to 4.6 from 4.1 , diuretic is hold Acute on chronic Diastolic CHF exacerbation, hypertension, Continue beta rafael , no LYLE inhibitor or ARB for now because acute on chronic kidney failure, Fluid restriction, in and out, increase beta rafael to optimize blood pressure control, continue amlodipine and hydralazine Acute kidney failure, no baseline BUN/creatinine to compare, today's getting worse BUN/creatinine improved after diuretic initially, which support the kidney failure from CHF and renal congestion, however patient possible developed cardiorenal syndrome, and he is not able to tolerate diuretic, However in cardiorenal syndrome the renal function may getting worse in the beginning of day 1 or 2 after diuretic, but if continue diuretic the renal function may improve, this is more important step, I will discuss with the consumer insight manager and then move forward to decide to continue diuretic are not, for now we'll hold diuretic. This also means need to discuss with patient's about the risk and benefit and options of the treatment, continue diuretic may end up of there end-stage renal disease and required dialysis. Elevated troponin, likely because of mismatch and demanding ischemia, and CHF exacerbation, I request cardiology consult because of CHF exacerbation, diastolic dysfunction and worsening renal function on diuretic, possible cardiorenal syndrome Echo report all 10/01/2016 per report: * 1. Normal left ventricular size with probable low-normal systolic function. Estimated EF 50-55%. No definite regional wall motion abnormalities. Severe concentric left ventricular hypertrophy. Type 2 diastolic dysfunction; tissue Doppler suggests elevated left atrial pressure. * 2. Right ventricle not well visualized but appears to be moderately dilated. * 3. The left atrium is moderately dilated. * 4. There is mild mitral regurgitation. * 5. Technically difficult study, enhanced with IV Definity. Poor image quality , which may affect interpretation. * 6. No prior study available for comparison. * Bilateral lower extremity cellulitis stable and improved Was on on daptomycin 6 mg/kg IV daily, and Zosyn 3.375 mg IV every 12 hours since admission for 2 days, which was changed to oral Augmentin per sensitivities from wound culture which is MSSA, 3/7 days Checked Doppler ultrasound to has rule out DVT, Morbid obesity Checked fasting lipid panel, which shows that total cholesterol 200, LDL less than 100, he does not have dyslipidemia he do not need any medication for now Check HbA1c, which is 6.7, and random blood glucose never more than 200, therefore I don't believe he has diabetic, no need any medicine for now TSH within normal limits Significant vitamin D deficiency, start vitamin D replacement 50,000 unit by mouth every week any time 6 week, and then 1000 unit by mouth daily Patient has no PCP, did not see PCP for morning 2 year PT OT geriatric social worker consultation DVT prophylaxis is covered Continued [facility] stay due to: multiple IV medications needed Discharge planning: home
[2016-10-03] MEDS: CALCITRIOL 0.25 MCG CAP PO SCH (10:56)
[2016-10-03] MEDS: AMLODIPINE BESYLATE 5 MG TAB PO SCH (10:56)
[2016-10-03] MEDS: ERGOCALCIFEROL 50,000 INTER.UNIT CAP PO SCH (10:56)
[2016-10-03] MEDS: SODIUM BICARBONATE 650 MG TAB PO SCH ×2 (10:56→20:09)
[2016-10-03] MEDS: METOPROLOL TARTRATE 25 MG TAB PO SCH ×2 (10:57→20:09)
--- NOTE | 2016-10-03 11:25 | Nephrology Progress Note ---
Nephrology Progress Note Date of Service Oct 03, 2016. Chief Complaint F/U for STEVE, metabolic acidosis and volume overload Joseline Esteves was seen and examined this am. renal function worsening, creatinine went up to 4.8, continues to have side metabolic acidosis. BP continues to be elevated. reports decreased urine output and no significant response to diuretics. Review of Systems A complete review of systems was performed. Pertinent positives are noted above. All other systems are negative. Vital Signs Last 8 Hrs Date Time Temp Pulse Resp B/P Pulse Ox O2 Delivery O2 Flow Rate FiO2 10/03/16 08:03 36.3 72 18 170/89 95 Room Air 10/03/16 08:00 Room Air 10/03/16 04:01 36.4 64 22 151/72 95 Room Air 10/03/16 04:00 Room Air I & O 24-Hour Column 10/03/16 08:00 Intake Total 1430 ml Output Total 700 ml Balance 730 ml Last Recorded Weight Weight (Kilograms): 208.000 Physical Exam GENERAL: middle aged male, morbidly obese , AAA x 3, pleasant, healthy- appearing, not in any distress. NECK: Supple, no JVD. RESPIRATORY: Normal breathing efforts, no accessory muscle use, clear to auscultation bilaterally, no wheezes or rales. CARDIOVASCULAR: S1, S2 normal, rate rhythm regular. Abdomen: obese, ptiing edema of abdominal wall EXTREMITY: 2-3 + B/L lower extremity edema, skin break NEURO: speech fluent. PSYCHIATRY: Normal mood and judgment Family History Cancer Diabetes mellitus Heart disease Hypertension Kidney disease Kidney stones Lung disease Social History Smokeless Tobacco Use: No Drug Use: none Occupation: employed Laboratory Results Past 24 Hours 10/03/16 07:30 Red Blood Count 4.13, Mean Corpuscular Volume 84.3, Mean Corpuscular Hemoglobin 26.2, Mean Corpuscular Hemoglobin Concent 31.0, Mean Platelet Volume 10.1, Neutrophils (%) (Auto) 65.5, Lymphocytes (%) (Auto) 20.3, Monocytes (%) (Auto) 11.0, Eosinophils (%) (Auto) 2.3, Basophils (%) (Auto) 0.7, Neutrophils # (Auto ) 3.75, Lymphocytes # (Auto) 1.16, Monocytes # (Auto) 0.63, Eosinophils # (Auto ) 0.13, Basophils # (Auto) 0.04 10/03/16 07:30 Test 10/02/16 11:19 10/02/16 12:06 10/02/16 13:00 10/02/16 16:23 Bedside Glucose 96 mg/dl (70-99) 102 mg/dl (70-99) 25-Hydroxy Vitamin D Total 4.9 ng/ml (30-100) Urine Random Creatinine 110.0 mg/dl Urine Random Total Protein 716.3 mg/dl (0-11.9) Urine Random Sodium 56 mEq/L Urine Protein/Creatinine Ratio 6.5 (0-0.2) Test 10/02/16 20:18 10/03/16 07:30 10/03/16 07:44 10/03/16 08:55 Bedside Glucose 119 mg/dl (70-99) 89 mg/dl (70-99) White Blood Count 5.72 K/uL (4.8-10.8) Red Blood Count 4.13 M/uL (4.7-6.1) Hemoglobin 10.8 g/dL (14.0-18.0) Hematocrit 34.8 % (42-52) Mean Corpuscular Volume 84.3 fL (80-100) Mean Corpuscular Hemoglobin 26.2 pg (25-34) Mean Corpuscular Hemoglobin Concent 31.0 g/dl (32-36) Platelet Count 266 K/uL (130-400) Mean Platelet Volume 10.1 fL (7.4-10.4) Neutrophils (%) (Auto) 65.5 % Lymphocytes (%) (Auto) 20.3 % Monocytes (%) (Auto) 11.0 % Eosinophils (%) (Auto) 2.3 % Basophils (%) (Auto) 0.7 % Neutrophils # (Auto) 3.75 K/uL (1.4-6.5) Lymphocytes # (Auto) 1.16 K/uL (1.2-3.4) Monocytes # (Auto) 0.63 K/uL (0.11-0.59) Eosinophils # (Auto) 0.13 K/uL (0-0.5) Basophils # (Auto) 0.04 K/uL (0-0.2) RDW Standard Deviation 56.4 fL (36.4-46.3) RDW Coefficient of Variation 18.2 % (11.5-14.5) Immature Granulocyte % (Auto) 0.2 % Immature Granulocyte # (Auto) 0.01 K/uL (0.00-0.02) Prothrombin Time 13.1 SECONDS (9.0-12.0) Prothromb Time International Ratio 1.2 (0.9-1.1) Activated Partial Thromboplast Time 31.2 SECONDS (21.0-31.0) Partial Thromboplastin Ratio 1.2 Anion Gap 12.0 mmol/L (3-11) Est Creatinine Clear Calc Drug Dose 33.7 ml/min Estimated GFR () 15.6 Estimated GFR (Non- 13.4 BUN/Creatinine Ratio 9.2 (10-20) Calcium Level 7.8 mg/dl (8.5-10.1) Magnesium Level 2.2 mg/dl (1.8-2.4) Total Bilirubin 0.7 mg/dl (0.2-1) Direct Bilirubin 0.3 mg/dl (0-0.2) Aspartate Amino Transf (AST/SGOT) 57 U/L (15-37) Alanine Aminotransferase (ALT/SGPT) 33 U/L (12-78) Alkaline Phosphatase 118 U/L (45-117) Total Protein 6.6 gm/dl (6.4-8.2) Albumin 2.4 gm/dl (3.4-5.0) Allergies Coded Allergies: No Known Allergies (Unverified , 09/30/16) Medications Current Inpatient Medications Medications (Trade) Dose Ordered Sig/Chavez Route Start Time Stop Time Status Last Admin Dose Admin Acetaminophen (Tylenol Tab) 650 mg Q4H PRN PO 09/30/16 19:15 10/30/16 19:14 Zolpidem Tartrate (Ambien Tab) 5 mg HSZ PRN PO 09/30/16 19:15 10/30/16 19:14 Ondansetron HCl (Zofran Inj) 4 mg Q6H PRN IV 09/30/16 19:30 10/30/16 19:29 Glucose (Glucose 40% Gel) UD PRN PO 09/30/16 19:30 10/30/16 19:29 Glucose (Glucose Chew Tab) 1 tabs UD PRN PO 09/30/16 19:30 10/30/16 19:29 Dextrose (Dextrose 50% 50ML Syringe) 50 ml UD PRN IV 09/30/16 19:30 10/30/16 19:29 Glucagon (Glucagon Inj) 1 mg UD PRN SQ 09/30/16 19:30 10/30/16 19:29 Hydralazine HCl (HydrALAZINE INJ) 10 mg Q4H PRN IV. 09/30/16 19:45 10/30/16 19:44 10/02/16 16:44 10 MG Miconazole Nitrate (Desenex Powder) 1 appln QS PRN EXT 10/01/16 20:45 10/31/16 20:44 Amlodipine Besylate 10 mg 10 mg QAM PO 10/02/16 10:30 11/01/16 10:29 10/02/16 10:34 10 MG Furosemide/Syringe (Lasix Inj/ Syringe) 4 ml @ 4 mls/min BID17 IV 10/02/16 17:00 11/01/16 16:59 Future Hold 10/02/16 16:31 4 MLS/MIN Calcitriol 0.25 mcg 0.25 mcg QAM PO 10/03/16 09:00 11/02/16 08:59 Iron Sucrose/ Sodium Chloride (Venofer Inj/Nss 100ml) 110 ml @ 220 mls/hr Q2D@1400 IV 10/02/16 14:00 10/10/16 18:00 Ergocalciferol (Vitamin D Cap) 50,000 interunit Q7D PO 10/03/16 09:00 12/19/16 09:01 Sodium Bicarbonate (Sodium Bicarbonate Tab) 650 mg BID PO 10/03/16 09:00 11/02/16 08:59 Hydralazine HCl (Apresoline Tab) 25 mg Q8 PO 10/03/16 14:00 11/02/16 13:59 Metoprolol Tartrate (Lopressor Tab) 75 mg BID PO 10/03/16 21:00 11/02/16 20:59 Impression (1) STEVE (acute kidney injury) (2) Metabolic acidosis (3) Hypertension (4) Anemia (5) Bilateral lower leg cellulitis (6) Anasarca (7) Secondary hyperparathyroidism of renal origin (8) Nephrotic syndrome Michael is a 56 year old male with Hypertension, T2DM, morbid obesity Admitted to the hospital with bilateral lower extremity cellulitis and anasarca. started empirically on Zosyn and daptomycin, initial lower extremity wound culture was positive for MSSA, blood culture negative. He was found to have acute kidney injury, on admission creatinine was 3.6 which slightly worsened over last 2 days to 4.1, associated with gap metabolic acidosis and significant weight gain over last few months. Urinalysis showed 3 + proteinuria and microscopic hematuria. renal ultrasound with electively small size kidney, cortical thinning but without any postrenal obstruction. No prior record available so it is unclear whether this is all acute kidney injury or in fact the patient has underlying advanced CKD which seems more likely as patient has been having high grade proteinuria, poorly-controlled hypertension , diabetes and morbid obesity. Has anemia and hyperparathyroidism which also could be due to advanced CKD. Has diabetes, morbid obesity, LVH with grade 2 diastolic dysfunction. Patient has not been seeing a physician heart taking medications for last more than 2 years. Recommendations --Increase Lasix to 80 mg twice a day -- continue amlodipine 10 milligrams p.o. daily -- increase hydralazine to 25 mg t.i.d. -- start on ergo calciferol once weekly --Sodium bicarb 650 mg twice a day -- continue on calcitriol 0.25 micrograms daily --Venofer 200 mg IV every other day for 5 doses --monitor renal function daily --avoid all NSAID's --renal diet -- will get record from his primary care physician's office to see whether has any history of CKD --if renal function continues to decline we may have to consider starting him on dialysis during this admission or in next few months. Discussed in detail with the patient and patient verbalized understanding and decided to go on dialysis if needed. Will follow
[2016-10-03] MEDS ORDERED: FUROSEMIDE INJ 80 MG in SYRINGE 0 ML IV ONE (12:00)
--- NOTE | 2016-10-03 15:44 | Cardiology Follow-Up ---
Subjective Date of Service: Oct 03, 2016. Pt evaluation today including: conversation w/ patient, physical exam, lab review, review of studies, review of inpatient medication list History of Present Illness This is a 56-year-old male with a long history of hypertension for which he is noncompliant with medications, obesity and long-standing peripheral edema. He presents now with worsening of his lower extremity edema as well as erythema for the last month or so. He also has progressive dyspnea on exertion but denies exertional chest discomfort. He has no palpitations. Since admission he has been placed on diuretics, however his weight has risen and his I/O is positive, his creatinine has been rising. Today he has no complaints, he is not having shortness of breath at rest and he is laying supine in bed. Social History Smoking Status: Never Smoker History of Alcohol Use: No Review of Systems Respiratory: No cough, No dyspnea at rest, No dyspnea on exertion, No hemoptysis, No shortness of breath, No sputum, No wheezing Cardiac: No PND, No chest pain, No claudication, No edema, No orthopnea, No palpitations Medications Cardiovascular: Item Value Date Time Metoprolol 75 mg 10/03/16 2100 Tartrate BID/PO 10/03/16 1057 (Lopressor Tab) Furosemide 80 mg/ 8 ml @ 4 mls/min 10/03/16 1800 Syringe BID17/IV Hydralazine HCl 25 mg 10/03/16 1400 (Apresoline Tab) Q8/PO 10/03/16 1254 Amlodipine 10 mg 10/02/16 1030 Besylate QAM/PO 10/03/16 1056 (Norvasc Tab) Objective Vital Signs Past 12 Hours Date Time Temp Pulse Resp B/P Pulse Ox O2 Delivery O2 Flow Rate FiO2 10/03/16 12:54 61 22 138/77 93 Room Air 10/03/16 11:34 Room Air 10/03/16 08:03 36.3 72 18 170/89 95 Room Air 10/03/16 08:00 Room Air 10/03/16 04:01 36.4 64 22 151/72 95 Room Air 10/03/16 04:00 Room Air Last Recorded Weight-Kilograms: 208.000 Intake & Output 8-Hour Column 10/02/16 10/03/16 10/03/16 16:00 00:00 08:00 Intake Total 980 ml 100 ml 350 ml Output Total 350 ml 300 ml 50 ml Balance 630 ml -200 ml 300 ml 24-Hour Column 10/03/16 08:00 Intake Total 1430 ml Output Total 700 ml Balance 730 ml Physical Exam Constitutional: General Apperance: obese Level of Distress: NAD Lungs: Respiratory effort: no dyspnea, good air movement Auscultation: breath sounds normal, no wheezing Cardiovascular: Heart Auscultation: RRR, no murmurs, no rubs, no gallops Peripheral Pulses: Bruits: none appreciated Extremities: edema (+3 bilateral lower extremity edema with signs of chronic venous stasis) Data Laboratory Results: Last 24 Hours Test 10/02/16 16:23 10/02/16 20:18 10/03/16 07:30 10/03/16 07:44 Bedside Glucose 102 mg/dl 119 mg/dl 89 mg/dl White Blood Count 5.72 K/uL Red Blood Count 4.13 M/uL Hemoglobin 10.8 g/dL Hematocrit 34.8 % Mean Corpuscular Volume 84.3 fL Mean Corpuscular Hemoglobin 26.2 pg Mean Corpuscular Hemoglobin Concent 31.0 g/dl Platelet Count 266 K/uL Mean Platelet Volume 10.1 fL Neutrophils (%) (Auto) 65.5 % Lymphocytes (%) (Auto) 20.3 % Monocytes (%) (Auto) 11.0 % Eosinophils (%) (Auto) 2.3 % Basophils (%) (Auto) 0.7 % Neutrophils # (Auto) 3.75 K/uL Lymphocytes # (Auto) 1.16 K/uL Monocytes # (Auto) 0.63 K/uL Eosinophils # (Auto) 0.13 K/uL Basophils # (Auto) 0.04 K/uL RDW Standard Deviation 56.4 fL RDW Coefficient of Variation 18.2 % Immature Granulocyte % (Auto) 0.2 % Immature Granulocyte # (Auto) 0.01 K/uL Prothrombin Time 13.1 SECONDS Prothromb Time International Ratio 1.2 Activated Partial Thromboplast Time 31.2 SECONDS Partial Thromboplastin Ratio 1.2 Sodium Level 141 mmol/L Potassium Level 4.7 mmol/L Chloride Level 111 mmol/L Carbon Dioxide Level 18 mmol/L Anion Gap 12.0 mmol/L Blood Urea Nitrogen 42 mg/dl Creatinine 4.60 mg/dl Est Creatinine Clear Calc Drug Dose 33.7 ml/min Estimated GFR () 15.6 Estimated GFR (Non- 13.4 BUN/Creatinine Ratio 9.2 Random Glucose 92 mg/dl Calcium Level 7.8 mg/dl Magnesium Level 2.2 mg/dl Total Bilirubin 0.7 mg/dl Direct Bilirubin 0.3 mg/dl Aspartate Amino Transf (AST/SGOT) 57 U/L Alanine Aminotransferase (ALT/SGPT) 33 U/L Alkaline Phosphatase 118 U/L Total Protein 6.6 gm/dl Albumin 2.4 gm/dl Test 10/03/16 10:45 10/03/16 11:05 Bedside Glucose 116 mg/dl Telemetry reviewed: SR, no arrhythmia Assessment and Plan #1. Acute on chronic kidney disease: Nephrology following, I imagine diabetes and hypertension were contributors. #2. Long-standing hypertension: Noncompliant with medications, he has evidence of target organ damage and his blood pressure needs to be controlled. I would go up on beta-blockade if possible to 200 mg daily of metoprolol, as tolerated. #3. Left ventricular hypertrophy: He almost certainly has diastolic dysfunction and possibly the beginnings of hypertensive cardiomyopathy and therefore his cardiac function may contribute somewhat to his edema although the primary cause is probably his kidney function. There is nothing to do with this other than controlling his hypertension in hopes that it will either remain stable or resolve somewhat. #4. Edema: Probably due to fluid retention caused by kidney disease, although contribution of elevated pressures due to left ventricular diastolic dysfunction is likely. #5. Elevated cardiac enzymes: His troponin is minimally elevated, suspect this is all demand ischemia, there is no evidence that this is infarction. He has exertional shortness of breath but denies exertional chest discomfort. I would not pursue an evaluation for coronary disease at this time. Thank you for allowing me to participate in his care.
[2016-10-03] MEDS: FUROSEMIDE INJ 80 MG in SYRINGE 0 ML IV SCH (18:06)
[2016-10-04] VITALS (9 sets, daily range): BP systolic 148–178; BP diastolic 68–91; PULSE 60–89; TEMP 36.5–37; O2SAT 90–96
[2016-10-04 06:19] LABS: BUN/CREATININE RATIO 9.6 (10-20); CALCIUM 7.3 mg/dl (8.5-10.1); CREATININE 4.8 mg/dl (0.60-1.40); MAGNESIUM 2.2 mg/dl (1.8-2.4); PHOSPHORUS 5.2 mg/dl (2.5-4.9); POTASSIUM 4.8 mmol/L (3.5-5.1)
[2016-10-04] MEDS: FUROSEMIDE INJ 80 MG in SYRINGE 0 ML IV SCH ×2 (07:53→16:55)
[2016-10-04] MEDS: AMLODIPINE BESYLATE 5 MG TAB PO SCH (07:53)
[2016-10-04] MEDS: SODIUM BICARBONATE 650 MG TAB PO SCH ×2 (07:54→20:25)
[2016-10-04] MEDS: CALCITRIOL 0.25 MCG CAP PO SCH (07:54)
[2016-10-04] MEDS: METOPROLOL TARTRATE 25 MG TAB PO SCH (07:54)
[2016-10-04] MEDS ORDERED: SODIUM BICARBONATE 650 MG TAB PO ONE (09:00)
[2016-10-04] MEDS ORDERED: METOPROLOL TARTRATE 25 MG TAB PO STA (11:46)
--- NOTE | 2016-10-04 11:46 | Cardiology Follow-Up ---
Subjective Date of Service: Oct 04, 2016. Pt evaluation today including: conversation w/ patient, physical exam, lab review, review of studies, review of inpatient medication list History of Present Illness This is a 56-year-old male with a long history of hypertension for which he is noncompliant with medications, obesity and long-standing peripheral edema. He presents now with worsening of his lower extremity edema as well as erythema for the last month or so. He also has progressive dyspnea on exertion but denies exertional chest discomfort. He has no palpitations. Since admission he has been placed on diuretics, however his weight has risen and his I/O is generally positive, his creatinine has been rising as well. Today he has no complaints, he is not having shortness of breath at rest and he is laying supine in bed. He tells me that he is disappointed in his health outlook. Social History Smoking Status: Never Smoker History of Alcohol Use: No Review of Systems Respiratory: No cough, No dyspnea at rest, No dyspnea on exertion, No hemoptysis, No shortness of breath, No sputum, No wheezing Cardiac: No PND, No chest pain, No claudication, No edema, No orthopnea, No palpitations Medications Cardiovascular: Item Value Date Time Metoprolol 75 mg 10/03/16 2100 Tartrate BID/PO 10/04/16 0754 (Lopressor Tab) Furosemide 80 mg/ 8 ml @ 4 mls/min 10/03/16 1800 Syringe BID17/IV 10/04/16 0753 Hydralazine HCl 25 mg 10/03/16 1400 (Apresoline Tab) Q8/PO 10/04/16 0510 Amlodipine 10 mg 10/02/16 1030 Besylate QAM/PO 10/04/16 0753 (Norvasc Tab) Objective Vital Signs Past 12 Hours Date Time Temp Pulse Resp B/P Pulse Ox O2 Delivery O2 Flow Rate FiO2 10/04/16 11:03 37.0 86 18 152/68 94 10/04/16 08:10 Room Air 10/04/16 07:51 37.0 89 22 148/76 94 10/04/16 06:40 62 178/82 10/04/16 04:30 36.8 65 22 168/91 94 Room Air 10/04/16 04:00 Room Air 10/04/16 00:00 Room Air 10/03/16 23:40 36.5 68 22 164/69 93 Room Air Last Recorded Weight-Kilograms: 208.000 Intake & Output 8-Hour Column 10/03/16 10/03/16 10/04/16 15:59 23:59 07:59 Intake Total 480 ml 600 ml Output Total 500 ml 400 ml Balance 480 ml 100 ml -400 ml 24-Hour Column 10/04/16 07:59 Intake Total 1080 ml Output Total 900 ml Balance 180 ml Physical Exam Constitutional: General Apperance: obese Level of Distress: NAD Lungs: Respiratory effort: no dyspnea, good air movement Auscultation: breath sounds normal, no wheezing Cardiovascular: Heart Auscultation: RRR, no murmurs, no rubs, no gallops Peripheral Pulses: Bruits: none appreciated Extremities: edema (+3 bilateral lower extremity edema with signs of chronic venous stasis) Data Laboratory Results: Last 24 Hours Test 10/03/16 16:23 10/03/16 20:30 10/04/16 05:07 10/04/16 06:39 Bedside Glucose 120 mg/dl 121 mg/dl 98 mg/dl Sodium Level 142 mmol/L Potassium Level 4.8 mmol/L Chloride Level 111 mmol/L Carbon Dioxide Level 18 mmol/L Anion Gap 13.0 mmol/L Blood Urea Nitrogen 46 mg/dl Creatinine 4.80 mg/dl Est Creatinine Clear Calc Drug Dose 32.3 ml/min Estimated GFR () 14.8 Estimated GFR (Non- 12.8 BUN/Creatinine Ratio 9.6 Random Glucose 104 mg/dl Calcium Level 7.3 mg/dl Phosphorus Level 5.2 mg/dl Magnesium Level 2.2 mg/dl Albumin 2.5 gm/dl Test 10/04/16 10:51 Bedside Glucose 127 mg/dl Telemetry reviewed: SR, no significant arrhythmia Assessment and Plan #1. Acute on chronic kidney disease: Nephrology following, I imagine diabetes and hypertension were contributors. Hopefully this will improve but is worsening here. #2. Long-standing hypertension: Noncompliant with medications, he has evidence of target organ damage and his blood pressure needs to be controlled. I would go up on beta-blockade to 200 mg daily of metoprolol, his BP is still up. #3. Left ventricular hypertrophy: He almost certainly has diastolic dysfunction and possibly the beginnings of hypertensive cardiomyopathy and therefore his cardiac function may contribute somewhat to his edema although the primary cause is probably his kidney function. I doubt he has a significant drop in cardiac output. There is nothing to do with this other than controlling his hypertension in hopes that his LVH will either remain stable or resolve somewhat. #4. Edema: Probably due to fluid retention caused by kidney disease, although contribution of elevated pressures due to left ventricular diastolic dysfunction is likely. #5. Elevated cardiac enzymes: His troponin was minimally elevated, I suspect this was all demand ischemia, there is no evidence that this is infarction. He has exertional shortness of breath but denies exertional chest discomfort. I would not pursue an evaluation for coronary disease at this time. Thank you for allowing me to participate in his care.
--- NOTE | 2016-10-04 12:03 | Nephrology Progress Note ---
Nephrology Progress Note Date of Service Oct 04, 2016. Chief Complaint F/U for STEVE, metabolic acidosis and volume overload Subjective Danielito was seen and examined in his room this morning. His overall feeling fine , denies any significant shortness of breath or chest pain. He has been responding to higher dose of diuretics after Lasix increased to 80 twice a day yesterday, reports increased urine output however no significant change in lower extremity edema. Creatinine worsened further to 4.8, electrolyte including potassium normal but bicarbonate still low. Blood pressure improving. Review of Systems A complete review of systems was performed. Pertinent positives are noted above. All other systems are negative. Vital Signs Last 8 Hrs Date Time Temp Pulse Resp B/P Pulse Ox O2 Delivery O2 Flow Rate FiO2 10/04/16 07:51 37.0 89 22 148/76 94 10/04/16 06:40 62 178/82 10/04/16 04:30 36.8 65 22 168/91 94 Room Air 10/04/16 04:00 Room Air I & O 24-Hour Column 10/04/16 08:00 Intake Total 1080 ml Output Total 900 ml Balance 180 ml Last Recorded Weight Weight (Kilograms): 208.000 Physical Exam GENERAL: middle aged male, morbidly obese , AAA x 3, pleasant, healthy- appearing, not in any distress. NECK: Supple, no JVD. RESPIRATORY: Normal breathing efforts, no accessory muscle use, clear to auscultation bilaterally, no wheezes or rales. CARDIOVASCULAR: S1, S2 normal, rate rhythm regular. Abdomen: obese, ptiing edema of abdominal wall EXTREMITY: 2-3 + B/L lower extremity edema, skin break NEURO: speech fluent. PSYCHIATRY: Normal mood and judgment Family History Cancer Diabetes mellitus Heart disease Hypertension Kidney disease Kidney stones Lung disease Social History Smokeless Tobacco Use: No Drug Use: none Occupation: employed Laboratory Results Past 24 Hours 10/04/16 05:07 Test 10/03/16 10:45 10/03/16 11:05 10/03/16 16:23 10/03/16 20:30 Bedside Glucose 116 mg/dl (70-99) 120 mg/dl (70-99) 121 mg/dl (70-99) Test 10/04/16 05:07 10/04/16 06:39 Anion Gap 13.0 mmol/L (3-11) Est Creatinine Clear Calc Drug Dose 32.3 ml/min Estimated GFR () 14.8 Estimated GFR (Non- 12.8 BUN/Creatinine Ratio 9.6 (10-20) Calcium Level 7.3 mg/dl (8.5-10.1) Phosphorus Level 5.2 mg/dl (2.5-4.9) Magnesium Level 2.2 mg/dl (1.8-2.4) Albumin 2.5 gm/dl (3.4-5.0) Bedside Glucose 98 mg/dl (70-99) Allergies Coded Allergies: No Known Allergies (Unverified , 09/30/16) Medications Current Inpatient Medications Medications (Trade) Dose Ordered Sig/Chavez Route Start Time Stop Time Status Last Admin Dose Admin Acetaminophen (Tylenol Tab) 650 mg Q4H PRN PO 09/30/16 19:15 10/30/16 19:14 Zolpidem Tartrate (Ambien Tab) 5 mg HSZ PRN PO 09/30/16 19:15 10/30/16 19:14 Ondansetron HCl (Zofran Inj) 4 mg Q6H PRN IV 09/30/16 19:30 10/30/16 19:29 Glucose (Glucose 40% Gel) UD PRN PO 09/30/16 19:30 10/30/16 19:29 Glucose (Glucose Chew Tab) 1 tabs UD PRN PO 09/30/16 19:30 10/30/16 19:29 Dextrose (Dextrose 50% 50ML Syringe) 50 ml UD PRN IV 09/30/16 19:30 10/30/16 19:29 Glucagon (Glucagon Inj) 1 mg UD PRN SQ 09/30/16 19:30 10/30/16 19:29 Hydralazine HCl (HydrALAZINE INJ) 10 mg Q4H PRN IV. 09/30/16 19:45 10/30/16 19:44 10/02/16 16:44 10 MG Miconazole Nitrate (Desenex Powder) 1 appln QS PRN EXT 10/01/16 20:45 10/31/16 20:44 Amlodipine Besylate (Norvasc Tab) 10 mg QAM PO 10/02/16 10:30 11/01/16 10:29 10/04/16 07:53 10 MG Calcitriol 0.25 mcg 0.25 mcg QAM PO 10/03/16 09:00 11/02/16 08:59 10/04/16 07:54 0.25 MCG Iron Sucrose/ Sodium Chloride (Venofer Inj/Nss 100ml) 110 ml @ 220 mls/hr Q2D@1400 IV 10/02/16 14:00 10/10/16 18:00 Ergocalciferol (Vitamin D Cap) 50,000 interunit Q7D PO 10/03/16 09:00 12/19/16 09:01 10/03/16 10:56 50,000 INTERUNIT Sodium Bicarbonate (Sodium Bicarbonate Tab) 650 mg BID PO 10/03/16 09:00 11/02/16 08:59 10/04/16 07:54 650 MG Hydralazine HCl (Apresoline Tab) 25 mg Q8 PO 10/03/16 14:00 11/02/16 13:59 10/04/16 05:10 25 MG Metoprolol Tartrate 75 mg 75 mg BID PO 10/03/16 21:00 11/02/16 20:59 10/04/16 07:54 75 MG Furosemide/Syringe (Lasix Inj/ Syringe) 8 ml @ 4 mls/min BID17 IV 10/03/16 18:00 11/02/16 17:59 10/04/16 07:53 4 MLS/MIN Impression (1) STEVE (acute kidney injury) (2) Metabolic acidosis (3) Hypertension (4) Anemia (5) Bilateral lower leg cellulitis (6) Anasarca (7) Secondary hyperparathyroidism of renal origin (8) Nephrotic syndrome Michael is a 56 year old male with Hypertension, T2DM, morbid obesity Admitted to the hospital with bilateral lower extremity cellulitis and anasarca. started empirically on Zosyn and daptomycin, initial lower extremity wound culture was positive for MSSA, blood culture negative. He was found to have acute kidney injury, on admission creatinine was 3.6 which has been progressively worsening, creatinine was 4.8 this morning, associated with gap metabolic acidosis. Urinalysis showed 3+ proteinuria and microscopic hematuria. and spot urine protein creatinine ratio above 6. Renal ultrasound with related really normal small size kidney, cortical thinning but without any postrenal obstruction. No prior record available so it is unclear whether this is all acute kidney injury or in fact the patient has underlying advanced CKD which seems more likely as patient has been having high grade proteinuria, poorly-controlled hypertension, diabetes and morbid obesity. Has anemia and hyperparathyroidism which also could be due to advanced CKD. Received record from primary care physician's office which was from 2014 but no labs available. Contacted [facility] this morning and they have will be sending records for last 5 years. Has diabetes, morbid obesity, LVH with grade 2 diastolic dysfunction. Patient has not been seeing a physician heart taking medications for last more than 2 years. Recommendations -- continue Lasix to 80 mg twice a day, if response suboptimal may need to increase to 120 twice a day -- continue amlodipine 10 milligrams p.o. daily and hydralazine to 25 mg t.i.d. -- continue ergocalciferol once weekly, Sodium bicarb 650 mg twice a day, calcitriol 0.25 micrograms daily, Venofer 200 mg IV every other day for 5 doses --monitor renal function daily --avoid all NSAID's --renal diet -- will review the records from [place] [facility] 2 boys wants received close --as renal function progressively declining, discussed in detail with the patient about future renal replacement therapy options and explained that patient may need to be on dialysis in next few days if renal function continues to decline, will watch closely over the weekend and if renal function does not improve, will consult vascular surgery and possibly start him on dialysis on Friday. patient verbalized understanding. however, if renal function start to improve, will see him in the office for follow-up. Will follow
[2016-10-04] MEDS: IRON SUCROSE INJ 200 MG in SODIUM CHLORIDE 0.9% 100ML 100 ML IV SCH (13:32)
--- NOTE | 2016-10-04 15:24 | Progress Note ---
Subjective Date of Service: Oct 04, 2016. Subjective Pt evaluation today including: conversation w/ patient, physical exam, chart review, lab review, review of studies, conversation w/ analytical consultant, review of inpatient medication list Has increased urine output after increase the dose of Lasix, bilateral lower extremity less swelling, generally feeling okay, no other complaint Problem List Medical Problems: (1) CHF exacerbation Status: Acute Review of Systems Constitutional: + fatigue, + weakness, No chills, No fever, No problem reported , No see HPI, No sweats, No weight loss Eyes: No diplopia, No discharge, No eye pain, No problem reported, No redness, No see HPI, No worsening of vision ENT: No dental problems, No hearing loss, No nasal symptoms, No problem reported, No see HPI, No sore throat, No tinnitus, No trouble swallowing, No unusual epistaxis Respiratory: No cough, No dyspnea at rest, No dyspnea on exertion, No hemoptysis, No problem reported, No see HPI, No shortness of breath, No sputum, No wheezing Cardiac: + edema, No PND, No chest pain, No claudication, No orthopnea, No palpitations, No problem reported, No see HPI Abdomen: No GI bleeding, No constipation, No diarrhea, No nausea, No pain, No problem reported, No see HPI, No vomiting Musculoskeletal: No calf pain, No joint pain, No muscle pain, No problem reported, No see HPI, No swelling Male : No dysuria, No hematuria, No incontinence, No nocturia more than once/ night, No problem reported, No see HPI, No sexual dysfunction, No slowing stream , No urinary frequency Neurologic: No balance problems, No memory loss, No numbness/tingling, No paralysis, No problem reported, No see HPI, No vertigo, No weakness Heme: No abnormal bleeding/bruising, No clotting problems, No night sweats, No problem reported, No see HPI, No swollen lymph nodes Endo: No excessive thirst, No excessive urination, No fatigue, No problem reported, No see HPI Skin: + problem reported (skin abrasion in bilateral lower extremity anterior jamison, , has been continue dry, no local oozing,) Objective Vital Signs Date Time Temp Pulse Resp B/P Pulse Ox O2 Delivery O2 Flow Rate FiO2 10/04/16 13:26 64 163/82 10/04/16 12:30 Room Air 10/04/16 11:03 37.0 86 18 152/68 94 10/04/16 08:10 Room Air 10/04/16 07:51 37.0 89 22 148/76 94 10/04/16 06:40 62 178/82 10/04/16 04:30 36.8 65 22 168/91 94 Room Air 10/04/16 04:00 Room Air 10/04/16 00:00 Room Air 10/03/16 23:40 36.5 68 22 164/69 93 Room Air 10/03/16 20:00 Room Air 10/03/16 19:31 36.8 79 22 154/73 96 10/03/16 16:00 Room Air 10/03/16 15:38 36.9 66 20 139/74 94 Physical Exam General Appearance: WD/WN, no apparent distress, + obese (morbid obesity) Eyes: normal inspection, PERRL, EOMI, sclerae normal ENT: normal ENT inspection, hearing grossly normal, pharynx normal Neck: supple, no adenopathy, thyroid normal, no JVD, no carotid bruits, trachea midline Respiratory/Chest: chest non-tender, normal breath sounds, no respiratory distress, no accessory muscle use, + decreased breath sounds Cardiovascular: regular rate, rhythm, no gallop, no JVD, no murmur Abdomen: normal bowel sounds, non tender, soft, no organomegaly, no pulsatile mass Extremities: normal range of motion, non-tender, normal inspection, no pedal edema, no calf tenderness, normal capillary refill, pelvis stable, + swelling (2 +, seems better than Yesterday) Neurologic/Psychiatric: customer consulting manager II-XII nml as tested, no motor/sensory deficits, alert, normal mood/affect, oriented x 3 Skin: normal color, + pertinent finding (old skin abrasions in bilateral lower anterior jamison are, local dry, and less hot, no oozing) Lymphatic: no adenopathy Laboratory Results Last 24 Hours Test 10/03/16 16:23 10/03/16 20:30 10/04/16 05:07 10/04/16 06:39 Bedside Glucose 120 mg/dl 121 mg/dl 98 mg/dl Sodium Level 142 mmol/L Potassium Level 4.8 mmol/L Chloride Level 111 mmol/L Carbon Dioxide Level 18 mmol/L Anion Gap 13.0 mmol/L Blood Urea Nitrogen 46 mg/dl Creatinine 4.80 mg/dl Est Creatinine Clear Calc Drug Dose 32.3 ml/min Estimated GFR () 14.8 Estimated GFR (Non- 12.8 BUN/Creatinine Ratio 9.6 Random Glucose 104 mg/dl Calcium Level 7.3 mg/dl Phosphorus Level 5.2 mg/dl Magnesium Level 2.2 mg/dl Albumin 2.5 gm/dl Test 10/04/16 10:51 Bedside Glucose 127 mg/dl Assessment and Plan 56-year-old white male admitted because of dyspnea on exertion, Bilateral lower extremity cellulitis on 09/30/2016, renal function continue getting worse acute on chronic grade 2 diastolic CHF exacerbation which is evidenced with dyspnea on exertion for several months, getting worse for 2 week, associated with significant weight gain, and the results from echo report in below stable , he got Lasix with albumin IV for 2-3 dose since admission, then switch to IV Lasix 40 twice a day, Lasix increased to 80 twice a day LVH and hypertension , Acute on chronic Diastolic CHF exacerbation, hypertension , Continue beta rafael, no LYLE inhibitor or ARB for now because acute on chronic kidney failure, Fluid restriction, in and out, increase beta rafael to optimize blood pressure control, continue amlodipine and hydralazine Acute kidney failure, no baseline BUN/creatinine to compare, BUN/creatinine improved after diuretic initially, which support the kidney failure from CHF and renal congestion, however the worsening renal function likely because of fluid overload, and diastolic dysfunction, cardiorenal syndrome is in the low list of differential diagnosis, however is less likely Player Services Representative on the case, continue Lasix to 80 mg twice a day, if response suboptimal may need to increase to 120 twice a day avoid all NSAID's, renal diet as renal function progressively declining, may need to be on dialysis in next few days if renal function continues to decline, may need to consult vascular surgery and possibly start him on dialysis on Friday. Elevated troponin, likely because of mismatch and demanding ischemia, and CHF exacerbation, I request cardiology consult because of CHF exacerbation, diastolic dysfunction and worsening renal function on diuretic Echo report all 10/01/2016 per report: * 1. Normal left ventricular size with probable low-normal systolic function. Estimated EF 50-55%. No definite regional wall motion abnormalities. Severe concentric left ventricular hypertrophy. Type 2 diastolic dysfunction; tissue Doppler suggests elevated left atrial pressure. * 2. Right ventricle not well visualized but appears to be moderately dilated. * 3. The left atrium is moderately dilated. * 4. There is mild mitral regurgitation. * 5. Technically difficult study, enhanced with IV Definity. Poor image quality , which may affect interpretation. * 6. No prior study available for comparison. * Bilateral lower extremity cellulitis stable and improved Was on on daptomycin 6 mg/kg IV daily, and Zosyn 3.375 mg IV every 12 hours since admission for 2 days, which was changed to oral Augmentin per sensitivities from wound culture which is MSSA, 4/7 days Checked Doppler ultrasound to has rule out DVT, Morbid obesity Checked fasting lipid panel, which shows that total cholesterol 200, LDL less than 100, he does not have dyslipidemia he do not need any medication for now Check HbA1c, which is 6.7, and random blood glucose never more than 200, therefore I don't believe he has diabetic, no need any medicine for now TSH within normal limits Significant vitamin D deficiency, start vitamin D replacement 50,000 unit by mouth every week any time 6 week, and then 1000 unit by mouth daily Patient has no PCP, did not see PCP for morning 2 year PT OT social studies teacher consultation DVT prophylaxis is covered Continued [facility] stay due to: multiple IV medications needed Discharge planning: home
[2016-10-04 16:36] LABS: ALBUMIN 2.9 G/DL (3.8-4.8); GAMMA GLOBULIN 0.8 G/DL (0.8-1.7)
[2016-10-04] MEDS: METOPROLOL TARTRATE 100 MG TAB PO SCH (20:24)
[2016-10-05] VITALS (8 sets, daily range): BP systolic 131–176; BP diastolic 73–94; PULSE 60–74; TEMP 36.4–36.8; O2SAT 91–95
[2016-10-05] MEDS: HydrALAZINE HCL 20 MG/ML VIAL IV. PRN (03:59)
[2016-10-05 07:10] LABS: BUN/CREATININE RATIO 10.3 (10-20); CALCIUM 7.6 mg/dl (8.5-10.1); MAGNESIUM 2.3 mg/dl (1.8-2.4); PHOSPHORUS 5.4 mg/dl (2.5-4.9); POTASSIUM 4.6 mmol/L (3.5-5.1)
[2016-10-05] MEDS: FUROSEMIDE INJ 80 MG in SYRINGE 0 ML IV SCH ×2 (08:17→16:03)
[2016-10-05] MEDS: AMLODIPINE BESYLATE 5 MG TAB PO SCH (08:18)
[2016-10-05] MEDS: SODIUM BICARBONATE 650 MG TAB PO SCH ×2 (08:18→20:00)
[2016-10-05] MEDS: CALCITRIOL 0.25 MCG CAP PO SCH (08:19)
[2016-10-05] MEDS: METOPROLOL TARTRATE 100 MG TAB PO SCH ×2 (08:20→20:00)
[2016-10-05] MEDS ORDERED: POLYETHYLENE (MIRALAX) 17 GM PACK PO STA (09:04)
--- NOTE | 2016-10-05 09:13 | Progress Note ---
Subjective Date of Service: Oct 05, 2016. Subjective Pt evaluation today including: conversation w/ patient, physical exam, chart review, lab review, review of studies, conversation w/ cancer program consultant, review of inpatient medication list Doing the same, have some urination, but not a lot, eating okay, no constipation Problem List Medical Problems: (1) CHF exacerbation Status: Acute Review of Systems Constitutional: No chills, No fatigue, No fever, No problem reported, No see HPI, No sweats, No weakness, No weight loss Eyes: No diplopia, No discharge, No eye pain, No problem reported, No redness, No see HPI, No worsening of vision ENT: No dental problems, No hearing loss, No nasal symptoms, No problem reported, No see HPI, No sore throat, No tinnitus, No trouble swallowing, No unusual epistaxis Respiratory: + dyspnea on exertion (is better), No cough, No hemoptysis, No problem reported, No see HPI, No shortness of breath, No sputum, No wheezing Abdomen: + problem reported (obesity), No GI bleeding, No constipation, No diarrhea, No nausea, No pain, No see HPI, No vomiting Neurologic: No balance problems, No memory loss, No numbness/tingling, No paralysis, No problem reported, No see HPI, No vertigo, No weakness Psychiatric: No anhedonism, No anxiety, No depression symptoms, No insomnia, No problem reported, No see HPI, No substance abuse Heme: No abnormal bleeding/bruising, No clotting problems, No night sweats, No problem reported, No see HPI, No swollen lymph nodes Skin: + problem reported (lower extremity anterior jamison has skin superficial abrasion is not new), No bleeding, No color change, No itch, No new/changing skin lesions, No rash, No see HPI Objective Vital Signs Date Time Temp Pulse Resp B/P Pulse Ox O2 Delivery O2 Flow Rate FiO2 10/05/16 08:00 36.8 69 18 157/73 95 Room Air 10/05/16 08:00 Room Air 10/05/16 04:50 60 151/81 10/05/16 04:00 95 Room Air 10/05/16 03:35 36.5 61 20 176/94 95 Room Air 10/04/16 23:59 94 Room Air 10/04/16 23:52 36.9 63 21 169/90 94 Room Air 10/04/16 20:00 Room Air 10/04/16 19:57 36.5 65 18 176/82 90 Room Air 10/04/16 16:00 Room Air 10/04/16 15:37 36.6 60 18 161/82 96 Room Air 10/04/16 13:26 64 163/82 10/04/16 12:30 Room Air 10/04/16 11:03 37.0 86 18 152/68 94 Physical Exam General Appearance: WD/WN, no apparent distress, + obese (morbid obesity) Eyes: normal inspection, PERRL, EOMI, sclerae normal ENT: normal ENT inspection, hearing grossly normal, pharynx normal Neck: supple, no adenopathy, thyroid normal, no JVD, no carotid bruits, trachea midline Respiratory/Chest: chest non-tender, normal breath sounds, no respiratory distress, no accessory muscle use, + decreased breath sounds Cardiovascular: regular rate, rhythm, no edema, no gallop, no JVD, no murmur Abdomen: normal bowel sounds, non tender, soft, no organomegaly, no pulsatile mass Extremities: normal range of motion, non-tender, normal inspection, no pedal edema, no calf tenderness, normal capillary refill, pelvis stable Neurologic/Psychiatric: ergonomics technician II-XII nml as tested, no motor/sensory deficits, alert, normal mood/affect, oriented x 3 Skin: normal color, warm/dry, + rash, + pertinent finding (bilateral lower extremity has skin superficial abrasion, no oozing/ no red,) Lymphatic: no adenopathy Laboratory Results Last 24 Hours Test 10/04/16 10:51 10/04/16 15:47 10/04/16 16:30 10/04/16 19:55 Bedside Glucose 127 mg/dl 121 mg/dl 122 mg/dl Phosphorus Level 5.4 mg/dl Test 10/05/16 05:37 10/05/16 06:38 Sodium Level 141 mmol/L Potassium Level 4.6 mmol/L Chloride Level 110 mmol/L Carbon Dioxide Level 19 mmol/L Anion Gap 12.0 mmol/L Blood Urea Nitrogen 51 mg/dl Creatinine 5.00 mg/dl Est Creatinine Clear Calc Drug Dose 30.9 ml/min Estimated GFR () 14.1 Estimated GFR (Non- 12.1 BUN/Creatinine Ratio 10.3 Random Glucose 102 mg/dl Calcium Level 7.6 mg/dl Phosphorus Level 5.4 mg/dl Magnesium Level 2.3 mg/dl Albumin 2.4 gm/dl Bedside Glucose 99 mg/dl Assessment and Plan 56-year-old white male admitted because of dyspnea on exertion, Bilateral lower extremity cellulitis on 09/30/2016, renal function continue getting worse on diuretic acute on chronic grade 2 diastolic CHF exacerbation upon admission which is evidenced with dyspnea on exertion for several months, getting worse for 2 week , associated with significant weight gain, and the results from echo report in below stable , he got Lasix with albumin IV for 2-3 dose since admission, then switch to IV Lasix 40 twice a day, Lasix increased to 80 twice a day since 10/02/2016 LVH and hypertension , Acute on chronic Diastolic CHF exacerbation, hypertension , blood pressure not optimize yet, yesterday increase beta rafael, we'll continue follow-up Continue beta rafeal, no LYLE inhibitor or ARB for now because acute on chronic kidney failure, Fluid restriction, in and out, increase beta rafael to optimize blood pressure control, continue amlodipine and hydralazine Acute kidney failure, no baseline BUN/creatinine to compare, likely because of acute on chronic kidney failure with the history of hypertension BUN/creatinine improved after diuretic initially, which support the kidney failure from CHF and renal congestion, however the worsening renal function likely because of fluid overload, and diastolic dysfunction, cardiorenal syndrome is in the low list of differential diagnosis, however is less likely Shell Coremaker on the case, continue Lasix to 80 mg twice a day, if response suboptimal may need to increase to 120 twice a day avoid all NSAID's, renal diet as renal function progressively declining, may need to be on dialysis in next few days if renal function continues to decline, may need to consult vascular surgery and possibly start him on dialysis on Friday. will follow-up nephrology input Elevated troponin upon admission, likely because of mismatch and demanding ischemia, and CHF exacerbation, I request cardiology consult because of CHF exacerbation, diastolic dysfunction and worsening renal function on diuretic Echo report all 10/01/2016 per report: * 1. Normal left ventricular size with probable low-normal systolic function. Estimated EF 50-55%. No definite regional wall motion abnormalities. Severe concentric left ventricular hypertrophy. Type 2 diastolic dysfunction; tissue Doppler suggests elevated left atrial pressure. * 2. Right ventricle not well visualized but appears to be moderately dilated. * 3. The left atrium is moderately dilated. * 4. There is mild mitral regurgitation. * 5. Technically difficult study, enhanced with IV Definity. Poor image quality , which may affect interpretation. * 6. No prior study available for comparison. * Bilateral lower extremity cellulitis stable and improved Was on on daptomycin 6 mg/kg IV daily, and Zosyn 3.375 mg IV every 12 hours since admission for 2 days, which was changed to oral Augmentin per sensitivities from wound culture which is MSSA, 5/7 days, will give bacitracin ointment topical use twice a day in lower extremity Checked Doppler ultrasound to has rule out DVT, Morbid obesity Checked fasting lipid panel, which shows that total cholesterol 200, LDL less than 100, he does not have dyslipidemia he do not need any medication for now Check HbA1c, which is 6.7, and random blood glucose never more than 200, therefore I don't believe he has diabetic, no need any medicine for now TSH within normal limits Significant vitamin D deficiency, start vitamin D replacement 50,000 unit by mouth every week any time 6 week, and then 1000 unit by mouth daily Patient has no PCP, did not see PCP for > 2 year PT OT social sciences chair consultation DVT prophylaxis is covered Continued [facility] stay due to: multiple IV medications needed Discharge planning: home
[2016-10-05] MEDS ORDERED: POLYETHYLENE (MIRALAX) 17 GM PACK PO PRN (09:15)
[2016-10-05] MEDS ORDERED: DOCUSATE SODIUM 100 MG CAP PO ONE (09:15)
--- NOTE | 2016-10-05 11:34 | Nephrology Progress Note ---
Nephrology Progress Note Date of Service Oct 05, 2016. Chief Complaint Follow up evaluation of this patient admitted with advanced CKD and tense LE edema with cellulitis Subjective Mr. Quinonez was seen & examined in his hospital room this morning. He has not had regular medical follow up and has been out of his medications for a prolonged period of time. He was admitted with tense LE edema, weeping leg bullae and cellulitis. He has responded to diuretic and antibiotic therapy. He notes that his leg edema and cellulitis are mildly improved. Review of Systems Constitutional: No fever Cardiovascular: No chest pain Respiratory: No dyspnea at rest Abdomen: No nausea, No pain Extremities: + leg edema A complete review of systems was performed. Pertinent positives are noted above. All other systems are negative. Vital Signs Last 8 Hrs Date Time Temp Pulse Resp B/P Pulse Ox O2 Delivery O2 Flow Rate FiO2 10/05/16 11:10 36.4 61 18 147/74 94 Room Air 10/05/16 08:00 36.8 69 18 157/73 95 Room Air 10/05/16 08:00 Room Air 10/05/16 04:50 60 151/81 10/05/16 04:00 95 Room Air 10/05/16 03:35 36.5 61 20 176/94 95 Room Air I & O 24-Hour Column 10/05/16 08:00 Intake Total 1182 ml Output Total 950 ml Balance 232 ml Last Recorded Weight Weight (Kilograms): 206.600 Physical Exam General Appearance: no apparent distress Head: atraumatic Eyes: PERRL, EOMI Neck: no adenopathy Respiratory/Chest: lungs clear Cardiovascular: regular rate, rhythm Abdomen/GI: normal bowel sounds, non tender, soft Extremities/Musculoskelatal: + pertinent finding (3+ pretibial edema) Neurologic/Psych: alert, oriented x 3 Family History Cancer Diabetes mellitus Heart disease Hypertension Kidney disease Kidney stones Lung disease Social History Smokeless Tobacco Use: No Drug Use: none Occupation: employed Laboratory Results Past 24 Hours 10/05/16 05:37 Test 10/04/16 15:47 10/04/16 16:30 10/04/16 19:55 10/05/16 05:37 Phosphorus Level 5.4 mg/dl (2.5-4.9) 5.4 mg/dl (2.5-4.9) Bedside Glucose 121 mg/dl (70-99) 122 mg/dl (70-99) Anion Gap 12.0 mmol/L (3-11) Est Creatinine Clear Calc Drug Dose 30.9 ml/min Estimated GFR () 14.1 Estimated GFR (Non- 12.1 BUN/Creatinine Ratio 10.3 (10-20) Calcium Level 7.6 mg/dl (8.5-10.1) Magnesium Level 2.3 mg/dl (1.8-2.4) Albumin 2.4 gm/dl (3.4-5.0) Test 10/05/16 06:38 10/05/16 10:38 Bedside Glucose 99 mg/dl (70-99) 116 mg/dl (70-99) Allergies Coded Allergies: No Known Allergies (Unverified , 09/30/16) Medications Current Inpatient Medications Medications (Trade) Dose Ordered Sig/Chavez Route Start Time Stop Time Status Last Admin Dose Admin Acetaminophen (Tylenol Tab) 650 mg Q4H PRN PO 09/30/16 19:15 10/30/16 19:14 Zolpidem Tartrate (Ambien Tab) 5 mg HSZ PRN PO 09/30/16 19:15 10/30/16 19:14 Ondansetron HCl (Zofran Inj) 4 mg Q6H PRN IV 09/30/16 19:30 10/30/16 19:29 Glucose (Glucose 40% Gel) UD PRN PO 09/30/16 19:30 10/30/16 19:29 Glucose (Glucose Chew Tab) 1 tabs UD PRN PO 09/30/16 19:30 10/30/16 19:29 Dextrose (Dextrose 50% 50ML Syringe) 50 ml UD PRN IV 09/30/16 19:30 10/30/16 19:29 Glucagon (Glucagon Inj) 1 mg UD PRN SQ 09/30/16 19:30 10/30/16 19:29 Hydralazine HCl (HydrALAZINE INJ) 10 mg Q4H PRN IV. 09/30/16 19:45 10/30/16 19:44 10/05/16 03:59 10 MG Miconazole Nitrate (Desenex Powder) 1 appln QS PRN EXT 10/01/16 20:45 10/31/16 20:44 Amlodipine Besylate (Norvasc Tab) 10 mg QAM PO 10/02/16 10:30 11/01/16 10:29 10/05/16 08:18 10 MG Calcitriol 0.25 mcg 0.25 mcg QAM PO 10/03/16 09:00 11/02/16 08:59 10/05/16 08:19 0.25 MCG Iron Sucrose/ Sodium Chloride (Venofer Inj/Nss 100ml) 110 ml @ 220 mls/hr Q2D@1400 IV 10/02/16 14:00 10/10/16 18:00 10/04/16 13:32 220 MLS/HR Ergocalciferol (Vitamin D Cap) 50,000 interunit Q7D PO 10/03/16 09:00 12/19/16 09:01 10/03/16 10:56 50,000 INTERUNIT Hydralazine HCl 25 mg 25 mg Q8 PO 10/03/16 14:00 11/02/16 13:59 10/05/16 05:43 25 MG Furosemide/Syringe (Lasix Inj/ Syringe) 8 ml @ 4 mls/min BID17 IV 10/03/16 18:00 11/02/16 17:59 10/05/16 08:17 4 MLS/MIN Sodium Bicarbonate (Sodium Bicarbonate Tab) 1,300 mg BID PO 10/04/16 21:00 11/03/16 20:59 10/05/16 08:18 1,300 MG Metoprolol Tartrate (Lopressor Tab) 100 mg BID PO 10/04/16 21:00 11/03/16 20:59 10/05/16 08:20 100 MG Docusate Sodium (coLACE CAP) 100 mg BID PO 10/05/16 21:00 11/04/16 20:59 Polyethylene (Miralax Powder Packet) 17 gm DAILY PRN PO 10/05/16 09:15 11/04/16 09:14 Bacitracin (Bacitracin Oint) 1 appln Q12 EXT 10/05/16 21:00 10/08/16 20:59 Impression (1) STEVE (acute kidney injury) (2) Metabolic acidosis (3) Hypertension (4) Anemia (5) Bilateral lower leg cellulitis (6) Anasarca (7) Secondary hyperparathyroidism of renal origin (8) Nephrotic syndrome Michael is a 56 year old male w/ HTN, T2DM and morbid obesity (BMI 61). He was admitted to the hospital with bilateral lower extremity cellulitis and anasarca. He was started empirically on Zosyn and daptomycin. His lower extremity wound culture was positive for MSSA. Blood culture was negative. Patient has not had medical follow up or taken his medications for the last 2 years. Renal evaluation has revealed nephrotic range proteinuria, small kidneys w/ cortical thinning on US. Creatinine value 1.7 in 2015. Patient likely has progressive CKD due to diabetic nephropathy and microvascular disease. Recommendations CHRONIC KIDNEY DISEASE: -- Renal function is declining in response to diuretic therapy. Patient has persistent LE edema -- Continue Lasix 80 mg BID -- Discussed indications/benefits/risks & alternatives to HD. Patient is agreeable to IJ THC and AVF creation if kidney function declines further -- Will consult vascular surgery for HD access placement Friday -- Protect L arm for vascular access -- Continue NaHCO3 for management of metabolic acidosis -- Will consult delinquency prevention social worker to schedule outpatient [place] [facility] [place]/ Dr. Israel HYPERTENSION: -- Stop amlodipine due to LE edema -- Will increase Hydralazine to 50 mg TID -- Continue Lasix and Metoprolol ANEMIA: -- IV iron has been prescribed -- Will provide ERI when patient starts HD BONE & MINERAL METABOLISM: -- Calcitriol therapy has been started OTHER: -- None
[2016-10-05] MEDS: BACITRACIN OINT 15 GM TUBE EXT SCH (19:59)
[2016-10-05] MEDS: DOCUSATE SODIUM 100 MG CAP PO SCH (20:01)
[2016-10-06] VITALS (9 sets, daily range): BP systolic 141–179; BP diastolic 74–85; PULSE 61–66; TEMP 36.3–37; O2SAT 91–96
[2016-10-06 07:32] LABS: BASO % 0.5 %; BASO ABS # 0.03 K/uL (0-0.2); COMPLETE YES; EOS % 2.4 %; IG% 0.2 %; LYMPH % 16.4 %; LYMPH ABS # 1.04 K/uL (1.2-3.4); MEAN CELL VOLUME 82.7 fL (80-100); MEAN CORPUSCULAR HEMOGLOBIN 26.1 pg (25-34); MEAN CORPUSCULAR HGB CONC 31.5 g/dl (32-36); MEAN PLATELET VOLUME 9.7 fL (7.4-10.4); MONO % 9.4 %; NEUT % 71.1 %; PLATELET COUNT 277 K/uL (130-400); RED BLOOD COUNT 3.99 M/uL (4.7-6.1); WHITE BLOOD COUNT 6.35 K/uL (4.8-10.8)
[2016-10-06] MEDS: DOCUSATE SODIUM 100 MG CAP PO SCH ×3 (07:50→21:00)
[2016-10-06] MEDS: FUROSEMIDE INJ 80 MG in SYRINGE 0 ML IV SCH (07:51)
[2016-10-06] MEDS: SODIUM BICARBONATE 650 MG TAB PO SCH ×2 (07:52→20:41)
[2016-10-06] MEDS: METOPROLOL TARTRATE 100 MG TAB PO SCH ×2 (07:53→20:44)
[2016-10-06] MEDS: CALCITRIOL 0.25 MCG CAP PO SCH (07:53)
[2016-10-06] MEDS: BACITRACIN OINT 15 GM TUBE EXT SCH ×2 (07:53→20:41)
[2016-10-06 08:13] LABS: BUN/CREATININE RATIO 10.8 (10-20); CALCIUM 7.8 mg/dl (8.5-10.1); MAGNESIUM 2.1 mg/dl (1.8-2.4); POTASSIUM 4.6 mmol/L (3.5-5.1)
--- NOTE | 2016-10-06 10:29 | Progress Note ---
Subjective Date of Service: Oct 06, 2016. Subjective Pt evaluation today including: conversation w/ patient, physical exam, chart review, lab review, review of studies, conversation w/ business analysis consultant, review of inpatient medication list Continue doing the same today, no complaining, have some Urine, but not a lot Problem List Medical Problems: (1) CHF exacerbation Status: Acute Review of Systems Constitutional: + fatigue, No chills, No fever, No problem reported, No sweats , No weakness, No weight loss Eyes: No diplopia, No discharge, No eye pain, No redness, No worsening of vision ENT: No dental problems, No hearing loss, No nasal symptoms, No sore throat, No tinnitus, No trouble swallowing, No unusual epistaxis Respiratory: No cough, No dyspnea at rest, No dyspnea on exertion, No hemoptysis, No shortness of breath, No sputum, No wheezing Cardiac: No PND, No chest pain, No claudication, No edema, No orthopnea, No palpitations Abdomen: No constipation, No diarrhea, No nausea, No pain, No vomiting Musculoskeletal: No calf pain, No joint pain, No muscle pain, No swelling Male : No dysuria, No hematuria, No incontinence, No nocturia more than once/ night, No slowing stream, No urinary frequency Neurologic: No balance problems, No memory loss, No numbness/tingling, No paralysis, No vertigo, No weakness Psychiatric: No anhedonism, No anxiety, No depression symptoms, No insomnia, No substance abuse Heme: No abnormal bleeding/bruising, No clotting problems, No night sweats, No swollen lymph nodes Endo: No excessive thirst, No excessive urination, No fatigue Skin: No bleeding, No color change, No itch, No new/changing skin lesions, No rash Objective Vital Signs Date Time Temp Pulse Resp B/P Pulse Ox O2 Delivery O2 Flow Rate FiO2 10/06/16 08:00 Room Air 10/06/16 07:50 36.7 65 24 167/80 93 Room Air 10/06/16 04:00 Room Air 10/06/16 03:30 36.5 62 19 166/82 91 Room Air 10/05/16 23:59 Room Air 10/05/16 23:00 36.7 61 20 149/73 93 Room Air 10/05/16 20:00 Room Air 10/05/16 19:13 36.5 74 22 131/79 91 Room Air 10/05/16 16:00 Room Air 10/05/16 15:12 36.4 62 16 157/76 93 Room Air 10/05/16 12:00 Room Air 10/05/16 11:10 36.4 61 18 147/74 94 Room Air Physical Exam General Appearance: WD/WN, no apparent distress, + obese Eyes: normal inspection, PERRL, EOMI, sclerae normal ENT: normal ENT inspection, hearing grossly normal, pharynx normal Neck: supple, no adenopathy, thyroid normal, no JVD, no carotid bruits, trachea midline Respiratory/Chest: chest non-tender, lungs clear, normal breath sounds, no respiratory distress, no accessory muscle use Cardiovascular: regular rate, rhythm, no edema, no gallop, no JVD, no murmur Abdomen: normal bowel sounds, non tender, soft, no organomegaly, no pulsatile mass Extremities: normal range of motion, non-tender, normal inspection, no pedal edema, no calf tenderness, normal capillary refill, pelvis stable Neurologic/Psychiatric: document analyst II-XII nml as tested, no motor/sensory deficits, alert, normal mood/affect, oriented x 3 Skin: normal color, warm/dry, no rash, + pertinent finding (bilateral lower extremity skin superficial abrasion, no oozing, stable) Lymphatic: no adenopathy Laboratory Results Last 24 Hours Test 10/05/16 10:38 10/05/16 16:11 10/05/16 20:11 10/06/16 06:54 Bedside Glucose 116 mg/dl 127 mg/dl 140 mg/dl 105 mg/dl Test 10/06/16 06:56 White Blood Count 6.35 K/uL Red Blood Count 3.99 M/uL Hemoglobin 10.4 g/dL Hematocrit 33.0 % Mean Corpuscular Volume 82.7 fL Mean Corpuscular Hemoglobin 26.1 pg Mean Corpuscular Hemoglobin Concent 31.5 g/dl Platelet Count 277 K/uL Mean Platelet Volume 9.7 fL Neutrophils (%) (Auto) 71.1 % Lymphocytes (%) (Auto) 16.4 % Monocytes (%) (Auto) 9.4 % Eosinophils (%) (Auto) 2.4 % Basophils (%) (Auto) 0.5 % Neutrophils # (Auto) 4.52 K/uL Lymphocytes # (Auto) 1.04 K/uL Monocytes # (Auto) 0.60 K/uL Eosinophils # (Auto) 0.15 K/uL Basophils # (Auto) 0.03 K/uL RDW Standard Deviation 55.4 fL RDW Coefficient of Variation 18.7 % Immature Granulocyte % (Auto) 0.2 % Immature Granulocyte # (Auto) 0.01 K/uL Sodium Level 141 mmol/L Potassium Level 4.6 mmol/L Chloride Level 109 mmol/L Carbon Dioxide Level 18 mmol/L Anion Gap 14.0 mmol/L Blood Urea Nitrogen 54 mg/dl Creatinine 5.00 mg/dl Est Creatinine Clear Calc Drug Dose 30.9 ml/min Estimated GFR () 14.1 Estimated GFR (Non- 12.1 BUN/Creatinine Ratio 10.8 Random Glucose 110 mg/dl Calcium Level 7.8 mg/dl Magnesium Level 2.1 mg/dl Assessment and Plan 56-year-old white male admitted because of dyspnea on exertion, Bilateral lower extremity cellulitis on 09/30/2016, renal function continue getting worse on diuretic, now planning the need of dialysis acute on chronic grade 2 diastolic CHF exacerbation upon admission which is evidenced with dyspnea on exertion for several months, getting worse for 2 week , associated with significant weight gain, and the results from echo report in below stable , he got Lasix with albumin IV for 2-3 dose since admission, then switch to IV Lasix 40 twice a day, Lasix increased to 80 twice a day since 10/02/2016, today probably will increase to 120 mg per order of booster operator LVH and hypertension , Acute on chronic Diastolic CHF exacerbation, hypertension , blood pressure not optimize yet, 2 days ago increased beta rafael, Continue beta rafael, no LYLE inhibitor or ARB for now because acute on chronic kidney failure, Fluid restriction, in and out, increase beta rafael to optimize blood pressure control, booster operator is adjusting and optimize medication Acute kidney failure, no baseline BUN/creatinine to compare, likely because of acute on chronic kidney failure with the history of hypertension BUN/creatinine improved after diuretic initially, which support the kidney failure from CHF and renal congestion, however the worsening renal function likely because of fluid overload, and diastolic dysfunction, cardiorenal syndrome is in the low list of differential diagnosis, however is less likely Tuber Machine Operator on the case, continue Lasix to 80 mg twice a day, if response suboptimal may need to increase to 120 twice a day avoid all NSAID's, renal diet as renal function progressively declining, booster operator has consulted vascular surgery and possibly start him on dialysis on Friday. will follow-up nephrology input Elevated troponin upon admission, likely because of mismatch and demanding ischemia, and CHF exacerbation, I request cardiology consult because of CHF exacerbation, diastolic dysfunction and worsening renal function on diuretic Echo report all 10/01/2016 per report: * 1. Normal left ventricular size with probable low-normal systolic function. Estimated EF 50-55%. No definite regional wall motion abnormalities. Severe concentric left ventricular hypertrophy. Type 2 diastolic dysfunction; tissue Doppler suggests elevated left atrial pressure. * 2. Right ventricle not well visualized but appears to be moderately dilated. * 3. The left atrium is moderately dilated. * 4. There is mild mitral regurgitation. * 5. Technically difficult study, enhanced with IV Definity. Poor image quality , which may affect interpretation. * 6. No prior study available for comparison. * Bilateral lower extremity cellulitis stable and improved Was on on daptomycin 6 mg/kg IV daily, and Zosyn 3.375 mg IV every 12 hours since admission for 2 days, which was changed to oral Augmentin per sensitivities from wound culture which is MSSA, 6/7 days, will give bacitracin ointment topical use twice a day in lower extremity Checked Doppler ultrasound to has rule out DVT, Morbid obesity Checked fasting lipid panel, which shows that total cholesterol 200, LDL less than 100, he does not have dyslipidemia he do not need any medication for now Check HbA1c, which is 6.7, and random blood glucose never more than 200, therefore I don't believe he has diabetic, no need any medicine for now TSH within normal limits Significant vitamin D deficiency, start vitamin D replacement 50,000 unit by mouth every week any time 6 week, and then 1000 unit by mouth daily Patient has no PCP, did not see PCP for > 2 year PT OT social organization professor consultation DVT prophylaxis is covered Continued [facility] stay due to: multiple IV medications needed Discharge planning: home
--- NOTE | 2016-10-06 10:57 | Nephrology Progress Note ---
Nephrology Progress Note Date of Service Oct 06, 2016. Chief Complaint Follow up evaluation of this patient admitted with advanced CKD and tense LE edema with cellulitis Subjective Mr. Quinonez was seen & examined in his hospital room this morning. He has not had regular medical follow up and has been out of his medications for a prolonged period of time. He was admitted with tense LE edema, weeping leg bullae and cellulitis. He has responded to diuretic and antibiotic therapy. He notes that his leg edema and cellulitis are mildly improved. He denies uremic symptoms. He voices no new medical concerns this morning Review of Systems Constitutional: No fever Cardiovascular: No chest pain Respiratory: No dyspnea at rest Abdomen: No nausea, No pain, No vomiting Genitourinary - Male: No dysuria Extremities: + leg edema A complete review of systems was performed. Pertinent positives are noted above. All other systems are negative. Vital Signs Last 8 Hrs Date Time Temp Pulse Resp B/P Pulse Ox O2 Delivery O2 Flow Rate FiO2 10/06/16 08:00 Room Air 10/06/16 07:50 36.7 65 24 167/80 93 Room Air 10/06/16 04:00 Room Air 10/06/16 03:30 36.5 62 19 166/82 91 Room Air I & O 24-Hour Column 10/06/16 08:00 Intake Total 900 ml Output Total 375 ml Balance 525 ml Last Recorded Weight Weight (Kilograms): 206.600 Physical Exam General Appearance: no apparent distress Head: normocephalic, atraumatic Eyes: PERRL Neck: supple, no adenopathy Respiratory/Chest: lungs clear, no respiratory distress Cardiovascular: regular rate, rhythm, no murmur Abdomen/GI: normal bowel sounds, non tender, soft Extremities/Musculoskelatal: + pedal edema (2+ pretibial pitting edema) Neurologic/Psych: alert, oriented x 3 Family History Cancer Diabetes mellitus Heart disease Hypertension Kidney disease Kidney stones Lung disease Social History Smokeless Tobacco Use: No Drug Use: none 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: employed Laboratory Results Past 24 Hours 10/06/16 06:56 Red Blood Count 3.99, Mean Corpuscular Volume 82.7, Mean Corpuscular Hemoglobin 26.1, Mean Corpuscular Hemoglobin Concent 31.5, Mean Platelet Volume 9.7, Neutrophils (%) (Auto) 71.1, Lymphocytes (%) (Auto) 16.4, Monocytes (%) (Auto) 9.4, Eosinophils (%) (Auto) 2.4, Basophils (%) (Auto) 0.5, Neutrophils # (Auto) 4.52, Lymphocytes # (Auto) 1.04, Monocytes # (Auto) 0.60, Eosinophils # (Auto) 0.15, Basophils # (Auto) 0.03 10/06/16 06:56 Test 10/05/16 16:11 10/05/16 20:11 10/06/16 06:54 10/06/16 06:56 Bedside Glucose 127 mg/dl (70-99) 140 mg/dl (70-99) 105 mg/dl (70-99) White Blood Count 6.35 K/uL (4.8-10.8) Red Blood Count 3.99 M/uL (4.7-6.1) Hemoglobin 10.4 g/dL (14.0-18.0) Hematocrit 33.0 % (42-52) Mean Corpuscular Volume 82.7 fL (80-100) Mean Corpuscular Hemoglobin 26.1 pg (25-34) Mean Corpuscular Hemoglobin Concent 31.5 g/dl (32-36) Platelet Count 277 K/uL (130-400) Mean Platelet Volume 9.7 fL (7.4-10.4) Neutrophils (%) (Auto) 71.1 % Lymphocytes (%) (Auto) 16.4 % Monocytes (%) (Auto) 9.4 % Eosinophils (%) (Auto) 2.4 % Basophils (%) (Auto) 0.5 % Neutrophils # (Auto) 4.52 K/uL (1.4-6.5) Lymphocytes # (Auto) 1.04 K/uL (1.2-3.4) Monocytes # (Auto) 0.60 K/uL (0.11-0.59) Eosinophils # (Auto) 0.15 K/uL (0-0.5) Basophils # (Auto) 0.03 K/uL (0-0.2) RDW Standard Deviation 55.4 fL (36.4-46.3) RDW Coefficient of Variation 18.7 % (11.5-14.5) Immature Granulocyte % (Auto) 0.2 % Immature Granulocyte # (Auto) 0.01 K/uL (0.00-0.02) Anion Gap 14.0 mmol/L (3-11) Est Creatinine Clear Calc Drug Dose 30.9 ml/min Estimated GFR () 14.1 Estimated GFR (Non- 12.1 BUN/Creatinine Ratio 10.8 (10-20) Calcium Level 7.8 mg/dl (8.5-10.1) Magnesium Level 2.1 mg/dl (1.8-2.4) Allergies Coded Allergies: No Known Allergies (Unverified , 09/30/16) Medications Current Inpatient Medications Medications (Trade) Dose Ordered Sig/Chavez Route Start Time Stop Time Status Last Admin Dose Admin Acetaminophen (Tylenol Tab) 650 mg Q4H PRN PO 09/30/16 19:15 10/30/16 19:14 Zolpidem Tartrate (Ambien Tab) 5 mg HSZ PRN PO 09/30/16 19:15 10/30/16 19:14 Ondansetron HCl (Zofran Inj) 4 mg Q6H PRN IV 09/30/16 19:30 10/30/16 19:29 Glucose (Glucose 40% Gel) UD PRN PO 09/30/16 19:30 10/30/16 19:29 Glucose (Glucose Chew Tab) 1 tabs UD PRN PO 09/30/16 19:30 10/30/16 19:29 Dextrose (Dextrose 50% 50ML Syringe) 50 ml UD PRN IV 09/30/16 19:30 10/30/16 19:29 Glucagon (Glucagon Inj) 1 mg UD PRN SQ 09/30/16 19:30 10/30/16 19:29 Hydralazine HCl (HydrALAZINE INJ) 10 mg Q4H PRN IV. 09/30/16 19:45 10/30/16 19:44 10/05/16 03:59 10 MG Miconazole Nitrate (Desenex Powder) 1 appln QS PRN EXT 10/01/16 20:45 10/31/16 20:44 Calcitriol 0.25 mcg 0.25 mcg QAM PO 10/03/16 09:00 11/02/16 08:59 10/06/16 07:53 0.25 MCG Iron Sucrose/ Sodium Chloride (Venofer Inj/Nss 100ml) 110 ml @ 220 mls/hr Q2D@1400 IV 10/02/16 14:00 10/10/16 18:00 10/04/16 13:32 220 MLS/HR Ergocalciferol (Vitamin D Cap) 50,000 interunit Q7D PO 10/03/16 09:00 12/19/16 09:01 10/03/16 10:56 50,000 INTERUNIT Sodium Bicarbonate (Sodium Bicarbonate Tab) 1,300 mg BID PO 10/04/16 21:00 11/03/16 20:59 10/06/16 07:52 1,300 MG Metoprolol Tartrate (Lopressor Tab) 100 mg BID PO 10/04/16 21:00 11/03/16 20:59 10/06/16 07:53 100 MG Docusate Sodium (coLACE CAP) 100 mg BID PO 10/05/16 21:00 11/04/16 20:59 Polyethylene (Miralax Powder Packet) 17 gm DAILY PRN PO 10/05/16 09:15 11/04/16 09:14 Bacitracin (Bacitracin Oint) 1 appln Q12 EXT 10/05/16 21:00 10/08/16 20:59 10/06/16 07:53 1 APPLN Hydralazine HCl 50 mg 50 mg 3XDQ4 PO 10/05/16 12:00 11/04/16 11:59 10/06/16 07:52 50 MG Furosemide 40 mg/ Syringe 4 ml @ 4 mls/min NOW ONCE IV 10/06/16 11:00 10/06/16 11:01 Furosemide/Syringe (Lasix Inj/ Syringe) 12 ml @ 4 mls/min BID IV 10/06/16 21:00 11/05/16 20:59 Vitamin B Complex/ Vit C/Folic Acid (Nephrocaps) 1 cap QAM PO 10/07/16 09:00 11/06/16 08:59 Impression (1) STEVE (acute kidney injury) (2) Metabolic acidosis (3) Hypertension (4) Anemia (5) Bilateral lower leg cellulitis (6) Anasarca (7) Secondary hyperparathyroidism of renal origin (8) Nephrotic syndrome Michael is a 56 year old male w/ HTN, T2DM and morbid obesity (BMI 61). He was admitted to the hospital with bilateral lower extremity cellulitis and anasarca. He was started empirically on Zosyn and daptomycin. His lower extremity wound culture was positive for MSSA. Blood culture was negative. Patient has not had medical follow up or taken his medications for the last 2 years. Renal evaluation has revealed nephrotic range proteinuria, small kidneys w/ cortical thinning on US. Creatinine value 1.7 in 2015. Patient likely has progressive CKD due to diabetic nephropathy and microvascular disease. Recommendations CHRONIC KIDNEY DISEASE: -- Renal function is declining in response to diuretic therapy. -- Intake > output last 24 hours. Patient has persistent LE edema. Will increase Furosemide to 120 mg IV BID -- Discussed indications/benefits/risks & alternatives to HD. Patient is agreeable to IJ THC and AVF creation -- Will obtain 24 hour urine collection to quantitate kidney function -- Will consult vascular surgery for HD access placement -- Protect L arm for vascular access -- Continue NaHCO3 for management of metabolic acidosis -- Will consult school social worker to schedule outpatient HD at [facility] w/ Dr. Israel HYPERTENSION: -- Continue Hydralazine, Lasix and Metoprolol for BP management ANEMIA: -- IV iron has been prescribed -- Will provide ERI when patient starts HD BONE & MINERAL METABOLISM: -- Calcitriol therapy has been started OTHER: -- None
[2016-10-06] MEDS ORDERED: FUROSEMIDE INJ 40 MG in SYRINGE 0 ML IV ONE (11:00)
[2016-10-06] MEDS: IRON SUCROSE INJ 200 MG in SODIUM CHLORIDE 0.9% 100ML 100 ML IV SCH (14:45)
[2016-10-06] MEDS: FUROSEMIDE INJ 120 MG in SYRINGE 0 ML IV SCH ×2 (20:44→21:30)
[2016-10-07] VITALS (8 sets, daily range): BP systolic 128–179; BP diastolic 75–84; PULSE 57–75; TEMP 36.5–36.7; O2SAT 90–95
[2016-10-07] MEDS: HydrALAZINE HCL 20 MG/ML VIAL IV. PRN (03:14)
[2016-10-07 06:44] LABS: HEMATOCRIT 34.9 % (42-52); MEAN CELL VOLUME 83.1 fL (80-100); MEAN CORPUSCULAR HGB CONC 31.2 g/dl (32-36); MEAN PLATELET VOLUME 9.8 fL (7.4-10.4); PLATELET COUNT 289 K/uL (130-400); WHITE BLOOD COUNT 6.44 K/uL (4.8-10.8)
[2016-10-07 07:28] LABS: BUN/CREATININE RATIO 11.2 (10-20); CALCIUM 8.1 mg/dl (8.5-10.1); POTASSIUM 4.7 mmol/L (3.5-5.1)
[2016-10-07 07:29] LABS: CREATININE 5.3 mg/dl (0.60-1.40)
[2016-10-07] MEDS: NEPHROCAPS PO SCH (07:52)
[2016-10-07] MEDS: CALCITRIOL 0.25 MCG CAP PO SCH (07:52)
[2016-10-07] MEDS: METOPROLOL TARTRATE 100 MG TAB PO SCH ×2 (07:53→21:18)
[2016-10-07] MEDS: DOCUSATE SODIUM 100 MG CAP PO SCH ×2 (07:53→21:18)
[2016-10-07] MEDS: BACITRACIN OINT 15 GM TUBE EXT SCH ×2 (07:53→21:17)
[2016-10-07] MEDS: FUROSEMIDE INJ 120 MG in SYRINGE 0 ML IV SCH ×2 (07:53→21:18)
[2016-10-07] MEDS: SODIUM BICARBONATE 650 MG TAB PO SCH ×2 (07:54→21:21)
--- NOTE | 2016-10-07 09:32 | Surgery Consultation ---
Consultation Date of Service Oct 07, 2016. (Paola Correa PA-C) Chief Complaint STEVE, need permcath (Paola Correa PA-C) History of Present Illness The patient is a 56 year old male with hx of DMII, HTN, obesity, admitted with STEVE and volume overload, seen in consultation today for permcath insertion so HD can be initiated. Pt admits severe edema over past 2-3 weeks. Denies HERRERA, fever, chills, chest pain, SOB, abd pain, N/V, rest pain, claudication, other complaints. (Paola Correa PA-C) Vitals Vital Signs Past 12 Hours Date Time Temp Pulse Resp B/P Pulse Ox O2 Delivery O2 Flow Rate FiO2 10/07/16 09:14 93 Room Air 10/07/16 07:48 36.7 63 16 179/84 93 Room Air 10/07/16 07:30 Room Air 10/07/16 05:28 161/79 10/07/16 03:13 177/77 10/06/16 23:57 61 161/81 10/06/16 23:45 Room Air 10/06/16 22:54 37.0 61 18 175/85 94 Room Air (Paola Correa PA-C) Allergies Coded Allergies: No Known Allergies (Unverified , 09/30/16) Home Medications No Active Prescriptions or Reported Meds Problem List Medical Problems: (1) Anemia (2) Bilateral lower leg cellulitis (3) Hypertension (4) Metabolic acidosis (5) Nephrotic syndrome (6) Proteinuria (7) Secondary hyperparathyroidism of renal origin (Paola Correa PA-C) Surgical / Medical History Hx Cardiac Surgery: No Hx Abdominal Surgery: No Hx Cancer Surgery: No Hx Thoracic Surgery: No Hx Orthopedic: No Hx Urinary Tract Surgery: No HX Other Surgery: No Past Medical/Surgical History: Diabetes, Hypertension, Kidney Disease (Paola Correa PA-C) Family History Cancer Diabetes mellitus Heart disease Hypertension Kidney disease Kidney stones Lung disease (Paola Correa PA-C) Cancer Diabetes mellitus Heart disease Hypertension Kidney disease Kidney stones Lung disease (Ronny Solomon M.D.) Social History Smoking Status: Never Smoker Hx Tobacco Use In Past Year?: No Hx Alcohol Use - Type & Amnt: No Hx Substance Use -Type & Amnt: No (Paola Correa, [facility]) Review of Systems Constitutional: + malaise, No chills, No fever Skin: + change in color Eyes: No visual changes ENMT: No sore throat Respiratory: + KOENIG, No cough, No hemoptysis, No orthopnea, No short of breath Cardiovascular: + edema, No chest pain, No intermittent claudication, No palpitations, No syncope Gastrointestinal: No abdominal pain, No nausea, No vomiting Neurologic: + weakness, No dizziness, No lethargy, No numbness, No tingling ( Paola Correa, [facility]) Physical Exam Constitutional: General Apperance: well-nourished, well-developed, obese (morbidly) Level of Distress: NAD, chronically ill Psychiatric: Mental Status: active & alert, normal mood, normal affect Orientation: oriented except where noted, to time, to place, to person Memory: recent memory normal, remote memory normal Head: normocephalic, atraumatic Eyes: EOM: EOMI ENMT: normal ENT inspection, hearing grossly normal Neck: supple, trachea midline Lungs: Respiratory effort: no dyspnea, good air movement Auscultation: breath sounds normal, no wheezing Cardiovascular: Apical Impulse: not displaced Heart Auscultation: RRR, no rubs, no gallops Peripheral Pulses: Pulses: full and equal, in all extremities except if noted Bruits: none appreciated Carotid Pulse: normal on the left, normal on the right Brachial Pulses: normal on the left, normal on the right Radial Pulse: normal on the left, normal on the right Femoral Pulse: decreased on the left, decreased on the right Posterior Tibialis Pulse: pertinent finding (unable to palpate d/t edema, feet warm, brisk cap refill) Dorsalis Pedis Pulse: pertinent finding (unable to palpate d/t edema, feet warm, brisk cap refill) Abdomen: Bowel Sounds: normal Inspection & Palpation: soft, no tenderness, guarding & rebound, distended Musculoskeletal: normal strength (5/5 throughout), normal tone Extremities: Upper Right: no cyanosis, no varicosities, edema Upper Left: no cyanosis, no varicosities, no palpable cord, edema Lower Right: no cyanosis, no varicosities, no palpable cord, edema Lower Left: no cyanosis, no varicosities, no palpable cord, edema Neurologic: Cranial Nerves: grossly intact Sensation: grossly intact (Paola Correa, PA-C) Assessment and Plan ASSESSMENT and PLAN: STEVE Pt for permcath insertion in OR tomorrow. Procedure, risks, benefits, and alternatives discussed with pt, he expresses understanding and agreement. Also discussed AVF creation to occur in near future. Will discuss options after vein mapping. (Paola Correa, PA-C) Patient was seen, examined, and chart reviewed. Agree with exam and treatment plan of the Vascular PA. Patient for permcath in am tomorrow. Will evaluate arms for fistula placement. Thank you very much for letting me participate in the care of this patient. (Ronny Solomon M.D.)
--- NOTE | 2016-10-07 09:42 | Nephrology Progress Note ---
Nephrology Progress Note Date of Service Oct 07, 2016. Chief Complaint STEVE/CKD Subjective No acute events overnight. Denies shortness of breath. Edema improving but remains significant. Generalized weakness persists. Generalized pruritus. Appetite good. Plan of care discussed with vascular surgery this morning. HD permcath placement scheduled for tomorrow. Vein mapping to follow. Review of Systems A complete review of systems was performed. Pertinent positives are noted above. All other systems are negative. Vital Signs Last 8 Hrs Date Time Temp Pulse Resp B/P Pulse Ox O2 Delivery O2 Flow Rate FiO2 10/07/16 09:14 93 Room Air 10/07/16 07:48 36.7 63 16 179/84 93 Room Air 10/07/16 07:30 Room Air 10/07/16 05:28 161/79 10/07/16 03:13 177/77 I & O 24-Hour Column 10/07/16 08:00 Intake Total 680 ml Output Total 1000 ml Balance -320 ml Last Recorded Weight Weight (Kilograms): 206.600 Physical Exam General Appearance: no apparent distress, + obese Head: normocephalic, atraumatic Eyes: normal inspection, sclerae normal ENT: normal ENT inspection, pharynx normal Neck: supple, + pertinent finding (thick, unable to appreciate JVP) Respiratory/Chest: lungs clear, no respiratory distress, no accessory muscle use, + decreased breath sounds Cardiovascular: regular rate, rhythm, no gallop Abdomen/GI: non tender, soft Genitourinary - Male: + pertinent finding (scrotal edema) Extremities/Musculoskelatal: normal inspection, + pedal edema Neurologic/Psych: alert, oriented x 3 Family History Cancer Diabetes mellitus Heart disease Hypertension Kidney disease Kidney stones Lung disease Social History Smokeless Tobacco Use: No Drug Use: none Occupation: employed Laboratory Results Past 24 Hours 10/07/16 06:33 10/07/16 06:33 Test 10/06/16 11:00 10/07/16 06:33 Bedside Glucose 116 mg/dl (70-99) Red Blood Count 4.20 M/uL (4.7-6.1) Mean Corpuscular Volume 83.1 fL (80-100) Mean Corpuscular Hemoglobin 26.0 pg (25-34) Mean Corpuscular Hemoglobin Concent 31.2 g/dl (32-36) RDW Standard Deviation 56.0 fL (36.4-46.3) RDW Coefficient of Variation 18.8 % (11.5-14.5) Mean Platelet Volume 9.8 fL (7.4-10.4) Anion Gap 13.0 mmol/L (3-11) Est Creatinine Clear Calc Drug Dose 29.1 ml/min Estimated GFR () 13.1 Estimated GFR (Non- 11.3 BUN/Creatinine Ratio 11.2 (10-20) Calcium Level 8.1 mg/dl (8.5-10.1) Allergies Coded Allergies: No Known Allergies (Unverified , 09/30/16) Medications Current Inpatient Medications Medications (Trade) Dose Ordered Sig/Chavez Route Start Time Stop Time Status Last Admin Dose Admin Acetaminophen (Tylenol Tab) 650 mg Q4H PRN PO 09/30/16 19:15 10/30/16 19:14 Zolpidem Tartrate (Ambien Tab) 5 mg HSZ PRN PO 09/30/16 19:15 10/30/16 19:14 Ondansetron HCl (Zofran Inj) 4 mg Q6H PRN IV 09/30/16 19:30 10/30/16 19:29 Glucose (Glucose 40% Gel) UD PRN PO 09/30/16 19:30 10/30/16 19:29 Glucose (Glucose Chew Tab) 1 tabs UD PRN PO 09/30/16 19:30 10/30/16 19:29 Dextrose (Dextrose 50% 50ML Syringe) 50 ml UD PRN IV 09/30/16 19:30 10/30/16 19:29 Glucagon (Glucagon Inj) 1 mg UD PRN SQ 09/30/16 19:30 10/30/16 19:29 Hydralazine HCl (HydrALAZINE INJ) 10 mg Q4H PRN IV. 09/30/16 19:45 10/30/16 19:44 10/07/16 03:14 10 MG Miconazole Nitrate (Desenex Powder) 1 appln QS PRN EXT 10/01/16 20:45 10/31/16 20:44 Calcitriol 0.25 mcg 0.25 mcg QAM PO 10/03/16 09:00 11/02/16 08:59 10/07/16 07:52 0.25 MCG Iron Sucrose/ Sodium Chloride (Venofer Inj/Nss 100ml) 110 ml @ 220 mls/hr Q2D@1400 IV 10/02/16 14:00 10/10/16 18:00 10/06/16 14:45 220 MLS/HR Ergocalciferol (Vitamin D Cap) 50,000 interunit Q7D PO 10/03/16 09:00 12/19/16 09:01 10/03/16 10:56 50,000 INTERUNIT Sodium Bicarbonate (Sodium Bicarbonate Tab) 1,300 mg BID PO 10/04/16 21:00 11/03/16 20:59 10/07/16 07:54 1,300 MG Metoprolol Tartrate (Lopressor Tab) 100 mg BID PO 10/04/16 21:00 11/03/16 20:59 10/07/16 07:53 100 MG Docusate Sodium (coLACE CAP) 100 mg BID PO 10/05/16 21:00 11/04/16 20:59 10/07/16 07:53 100 MG Polyethylene (Miralax Powder Packet) 17 gm DAILY PRN PO 10/05/16 09:15 11/04/16 09:14 Bacitracin (Bacitracin Oint) 1 appln Q12 EXT 10/05/16 21:00 10/08/16 20:59 10/07/16 07:53 1 APPLN Hydralazine HCl 50 mg 50 mg 3XDQ4 PO 10/05/16 12:00 11/04/16 11:59 10/07/16 07:52 50 MG Furosemide/Syringe (Lasix Inj/ Syringe) 12 ml @ 4 mls/min BID IV 10/06/16 21:00 11/05/16 20:59 10/07/16 07:53 4 MLS/MIN Vitamin B Complex/ Vit C/Folic Acid 1 cap 1 cap QAM PO 10/07/16 09:00 11/06/16 08:59 10/07/16 07:52 1 CAP Cefazolin Sodium/ Dextrose (Ancef Iv/D5 50ml) 55 ml @ 100 mls/hr PRE-SPECIALS ONCE IV 10/08/16 09:00 10/08/16 09:32 UNV Impression (1) STEVE (acute kidney injury) (2) Metabolic acidosis (3) Hypertension (4) Anemia (5) Bilateral lower leg cellulitis (6) Anasarca (7) Secondary hyperparathyroidism of renal origin (8) Nephrotic syndrome Michael is a 56 year old male w/ HTN, T2DM and morbid obesity (BMI 61). He was admitted to the hospital with bilateral lower extremity cellulitis and anasarca. He was started empirically on Zosyn and daptomycin. His lower extremity wound culture was positive for MSSA. Blood culture was negative. Patient has not had medical follow up or taken his medications for the last 2 years. Renal evaluation has revealed nephrotic range proteinuria, small kidneys w/ cortical thinning on US. Creatinine value 1.7 in 2015. Patient likely has progressive CKD due to diabetic nephropathy and microvascular disease. Plan to start renal replacement therapy with HD. Recommendations CHRONIC KIDNEY DISEASE: -- Evidence of progression to ESRD requiring GLOBAL TECHNICAL WRITER for volume management and clearance -- Renal function is declining in response to diuretic therapy. -- Still no documented negative fluid balance. Patient has persistent LE edema. Continue Furosemide to 120 mg IV BID -- Patient is agreeable to IJ permcath and AVF creation. Plan HD permcath placement tomorrow -- 24 hour urine collection results pending -- Protect L arm for vascular access -- Continue NaHCO3 for management of metabolic acidosis -- Consult social worker masters to schedule outpatient HD at [facility] w/ Dr. Israel HYPERTENSION: -- Continue Hydralazine, Lasix and Metoprolol for BP management -- Increase hydralazine 50 --> 75 mg TID ANEMIA: -- IV iron has been prescribed -- Will provide ERI when patient starts HD BONE & MINERAL METABOLISM: -- Calcitriol therapy has been started OTHER: -- None
--- NOTE | 2016-10-07 16:27 | DIAGNOSTIC IMAGING REPORT ---
VENOUS UPR EXT MAPPING BILAT CLINICAL HISTORY: ESRD COMPARISON STUDY: No previous studies for comparison. FINDINGS: The study was difficult from a technical standpoint. The patient was scanned in a wheelchair and is morbidly obese. The jugular and subclavian veins appear patent bilaterally. Vein diameters are listed in the venous mapping worksheet. This worksheet was scanned into the PACS system. IMPRESSION: Technically limited study. No evidence of DVT. Vein mapping was performed and recorded on a worksheet which was scanned into the PACS system. Electronically signed by: Greg Odell M.D. 10/07/2016 4:25 PM Dictated Date/Time: 10/07/2016 4:23 PM
--- NOTE | 2016-10-07 19:49 | Progress Note ---
Subjective Date of Service: Oct 07, 2016. Subjective Pt evaluation today including: conversation w/ patient, physical exam, chart review, lab review, review of inpatient medication list feeling about the same still swollen no new sob no improvemnet but not worse for HD once TDC placed d/w nephrology and cardiology Problem List Medical Problems: (1) CHF exacerbation Status: Acute Review of Systems ros otherwise negative except for as above Objective Vital Signs Date Time Temp Pulse Resp B/P Pulse Ox O2 Delivery O2 Flow Rate FiO2 10/07/16 16:00 36.5 62 18 128/75 90 Room Air 10/07/16 11:34 36.7 57 14 175/83 95 Room Air 10/07/16 09:14 93 Room Air 10/07/16 07:48 36.7 63 16 179/84 93 Room Air 10/07/16 07:30 Room Air 10/07/16 05:28 161/79 10/07/16 03:13 177/77 10/06/16 23:57 61 161/81 10/06/16 23:45 Room Air 10/06/16 22:54 37.0 61 18 175/85 94 Room Air 10/06/16 20:46 65 179/84 96 Room Air Physical Exam General Appearance: no apparent distress Eyes: EOMI ENT: hearing grossly normal Neck: trachea midline Respiratory/Chest: no respiratory distress, no accessory muscle use Extremities: normal range of motion Neurologic/Psychiatric: vascular ultrasound technician II-XII nml as tested, alert, normal mood/affect Skin: normal color, warm/dry Laboratory Results Last 24 Hours Test 10/07/16 06:33 10/07/16 16:44 10/07/16 17:05 White Blood Count 6.44 K/uL Red Blood Count 4.20 M/uL Hemoglobin 10.9 g/dL Hematocrit 34.9 % Mean Corpuscular Volume 83.1 fL Mean Corpuscular Hemoglobin 26.0 pg Mean Corpuscular Hemoglobin Concent 31.2 g/dl RDW Standard Deviation 56.0 fL RDW Coefficient of Variation 18.8 % Platelet Count 289 K/uL Mean Platelet Volume 9.8 fL Sodium Level 142 mmol/L Potassium Level 4.7 mmol/L Chloride Level 110 mmol/L Carbon Dioxide Level 19 mmol/L Anion Gap 13.0 mmol/L Blood Urea Nitrogen 59 mg/dl Creatinine 5.30 mg/dl 5.50 mg/dl Est Creatinine Clear Calc Drug Dose 29.1 ml/min Estimated GFR () 13.1 Estimated GFR (Non- 11.3 BUN/Creatinine Ratio 11.2 Random Glucose 108 mg/dl Calcium Level 8.1 mg/dl Assessment and Plan ESRD - appearing hypertensive - for HD acute on chronic grade 2 diastolic CHF exacerbation upon admission -- appears more than anythign related to ESRD. anticipate improvement once he's on HD LVH and hypertension , Acute on chronic Diastolic CHF exacerbation, hypertension , blood pressure not optimized yet but expect improvement once HD started, will refrain on further meds for now Elevated troponin upon admission, likely because of mismatch and demanding ischemia, and ESRD making for poor clearance. no evidence of CO Bilateral lower extremity cellulitis stable and improved Was on on daptomycin 6 mg/kg IV daily, and Zosyn 3.375 mg IV every 12 hours since admission for 2 days, which was changed to oral Augmentin per sensitivities from wound culture which is MSSA, can stop. Morbid obesity Checked fasting lipid panel, which shows that total cholesterol 200, LDL less than 100, he does not have dyslipidemia he do not need any medication for now Check HbA1c, which is 6.7, and random blood glucose never more than 200, therefore I don't believe he has diabetic, no need any medicine for now TSH within normal limits Significant vitamin D deficiency, start vitamin D replacement 50,000 unit by mouth every week any time 6 week, and then 1000 unit by mouth daily DVT proph - heparin SQ. hold in AM for TDC placement
[2016-10-07] MEDS ORDERED: NURSING VERBAL MED ORDER ONE (20:15)
[2016-10-07 20:31] LABS: PATIENT HEIGHT 182.9 cm
[2016-10-07 20:55] LABS: CREATININE 5.5 mg/dl (0.6-1.4)
[2016-10-07 21:08] LABS: URINE TOTAL PROTEIN 316.9 mg/dl (0-11.9)
[2016-10-07] MEDS: HEPARIN SOD 5000 UNIT/0.5 ML CARP SQ SCH (21:20)
[2016-10-08] VITALS (15 sets, daily range): BP systolic 141–181; BP diastolic 64–87; PULSE 61–66; TEMP 36.4–36.8; O2SAT 92–94
[2016-10-08] MEDS: HydrALAZINE HCL 20 MG/ML VIAL IV. PRN ×3 (00:05→13:48)
[2016-10-08] MEDS ORDERED: CEFAZOLIN 3000 MG/65 ML D5W IV SCH (06:00)
[2016-10-08 08:43] LABS: ALBUMIN % 69.13 %; ALPHA-2-GLOBULIN % 7.43 %; BETA GLOBULIN % 10.09 %; CREATININE UR 105 MG/DL (20-370); GAMMA GLOBULIN % 11.92 %
[2016-10-08] MEDS: DOCUSATE SODIUM 100 MG CAP PO SCH ×2 (08:43→21:00)
[2016-10-08] MEDS: BACITRACIN OINT 15 GM TUBE EXT SCH (08:45)
[2016-10-08] MEDS: METOPROLOL TARTRATE 100 MG TAB PO SCH ×2 (08:46→21:28)
[2016-10-08] MEDS: FUROSEMIDE INJ 120 MG in SYRINGE 0 ML IV SCH ×2 (08:46→21:28)
[2016-10-08] MEDS: SODIUM BICARBONATE 650 MG TAB PO SCH ×2 (08:46→21:27)
[2016-10-08] MEDS: NEPHROCAPS PO SCH (08:46)
[2016-10-08] MEDS: CALCITRIOL 0.25 MCG CAP PO SCH (08:46)
[2016-10-08] MEDS ORDERED: CEFAZOLIN IV 1,000 MG in DEXTROSE 5% 50ML 50 ML IV ONE (09:00)
[2016-10-08 09:03] LABS: BUN/CREATININE RATIO 11.8 (10-20); CREATININE 5.4 mg/dl (0.60-1.40); POTASSIUM 4.4 mmol/L (3.5-5.1)
--- NOTE | 2016-10-08 09:42 | Nephrology Progress Note ---
Nephrology Progress Note Date of Service Oct 08, 2016. Chief Complaint STEVE/CKD Subjective No acute events overnight. Denies shortness of breath. No chest pain or palpitations. No fevers or chills. No significant change in edema. Mr. Quinonez states that he has not been out of bed. Review of Systems A complete review of systems was performed. Pertinent positives are noted above. All other systems are negative. Vital Signs Last 8 Hrs Date Time Temp Pulse Resp B/P Pulse Ox O2 Delivery O2 Flow Rate FiO2 10/08/16 08:58 63 173/81 10/08/16 07:14 36.8 62 18 181/85 93 Room Air 10/08/16 05:41 61 173/87 I & O 24-Hour Column 10/08/16 08:00 Intake Total 955 ml Output Total 1500 ml Balance -545 ml Last Recorded Weight Weight (Kilograms): 206.600 Physical Exam General Appearance: no apparent distress, + obese Head: normocephalic, atraumatic Eyes: normal inspection, sclerae normal ENT: normal ENT inspection, pharynx normal Neck: supple, + pertinent finding (thick, unable to appreciate JVP) Respiratory/Chest: lungs clear, no respiratory distress, no accessory muscle use, + decreased breath sounds Cardiovascular: regular rate, rhythm Abdomen/GI: non tender, soft Extremities/Musculoskelatal: normal capillary refill, + pertinent finding ( generalized edema) Neurologic/Psych: alert, oriented x 3 Family History Cancer Diabetes mellitus Heart disease Hypertension Kidney disease Kidney stones Lung disease Social History Smokeless Tobacco Use: No Drug Use: none Occupation: employed Laboratory Results Past 24 Hours 10/07/16 17:05 10/08/16 08:07 Test 10/07/16 16:20 10/08/16 08:07 Urine Collection Time 24 HOURS Urine Total Volume 1600 mL Urine Creatinine 67.0 mg/dl Urine Creatinine 24 Hour 1.1 GM/24 HR (0.8-2.0) Urine Creatinine Clearance 24 Hour 7.7 ml/min (97-137) Urine Total Protein 24 Hour 5070 MG/24 HR (0-150) Urine Total Protein 316.9 mg/dl (0-11.9) Anion Gap 14.0 mmol/L (3-11) Est Creatinine Clear Calc Drug Dose 28.6 ml/min Estimated GFR () 12.8 Estimated GFR (Non- 11.1 BUN/Creatinine Ratio 11.8 (10-20) Calcium Level 8.0 mg/dl (8.5-10.1) Allergies Coded Allergies: No Known Allergies (Unverified , 09/30/16) Medications Current Inpatient Medications Medications (Trade) Dose Ordered Sig/Chavez Route Start Time Stop Time Status Last Admin Dose Admin Acetaminophen (Tylenol Tab) 650 mg Q4H PRN PO 09/30/16 19:15 10/30/16 19:14 Zolpidem Tartrate (Ambien Tab) 5 mg HSZ PRN PO 09/30/16 19:15 10/30/16 19:14 Ondansetron HCl (Zofran Inj) 4 mg Q6H PRN IV 09/30/16 19:30 10/30/16 19:29 Glucose (Glucose 40% Gel) UD PRN PO 09/30/16 19:30 10/30/16 19:29 Glucose (Glucose Chew Tab) 1 tabs UD PRN PO 09/30/16 19:30 10/30/16 19:29 Dextrose (Dextrose 50% 50ML Syringe) 50 ml UD PRN IV 09/30/16 19:30 10/30/16 19:29 Glucagon (Glucagon Inj) 1 mg UD PRN SQ 09/30/16 19:30 10/30/16 19:29 Hydralazine HCl (HydrALAZINE INJ) 10 mg Q4H PRN IV. 09/30/16 19:45 10/30/16 19:44 10/08/16 05:44 10 MG Miconazole Nitrate (Desenex Powder) 1 appln QS PRN EXT 10/01/16 20:45 10/31/16 20:44 Calcitriol 0.25 mcg 0.25 mcg QAM PO 10/03/16 09:00 11/02/16 08:59 10/08/16 08:46 0.25 MCG Iron Sucrose/ Sodium Chloride (Venofer Inj/Nss 100ml) 110 ml @ 220 mls/hr Q2D@1400 IV 10/02/16 14:00 10/10/16 18:00 10/06/16 14:45 220 MLS/HR Ergocalciferol (Vitamin D Cap) 50,000 interunit Q7D PO 10/03/16 09:00 12/19/16 09:01 10/03/16 10:56 50,000 INTERUNIT Sodium Bicarbonate (Sodium Bicarbonate Tab) 1,300 mg BID PO 10/04/16 21:00 11/03/16 20:59 10/08/16 08:46 1,300 MG Metoprolol Tartrate (Lopressor Tab) 100 mg BID PO 10/04/16 21:00 11/03/16 20:59 10/08/16 08:46 100 MG Docusate Sodium (coLACE CAP) 100 mg BID PO 10/05/16 21:00 11/04/16 20:59 10/07/16 21:18 100 MG Polyethylene (Miralax Powder Packet) 17 gm DAILY PRN PO 10/05/16 09:15 11/04/16 09:14 Bacitracin 1 appln 1 appln Q12 EXT 10/05/16 21:00 10/08/16 20:59 10/08/16 08:45 1 APPLN Furosemide/Syringe (Lasix Inj/ Syringe) 12 ml @ 4 mls/min BID IV 10/06/16 21:00 11/05/16 20:59 10/08/16 08:46 4 MLS/MIN Vitamin B Complex/ Vit C/Folic Acid (Nephrocaps) 1 cap QAM PO 10/07/16 09:00 11/06/16 08:59 10/08/16 08:46 1 CAP Hydralazine HCl 75 mg 75 mg 3XDQ4 PO 10/07/16 12:00 11/06/16 11:59 10/08/16 07:54 75 MG Cefazolin Sodium (Ancef 3000 Mg/ 65 ml D5W) 65 ml @ 100 mls/hr PREOP IV 10/08/16 06:00 10/08/16 18:00 Heparin Sodium (Porcine) (Heparin Sq 5000 Unit/0.5ml) 5,000 unit Q12 SQ 10/07/16 21:00 11/06/16 20:59 Future hold 10/07/16 21:20 5,000 UNIT Impression (1) STEVE (acute kidney injury) (2) Metabolic acidosis (3) Hypertension (4) Anemia (5) Bilateral lower leg cellulitis (6) Anasarca (7) Secondary hyperparathyroidism of renal origin (8) Nephrotic syndrome Michael is a 56 year old male w/ HTN, T2DM and morbid obesity (BMI 61). He was admitted to the hospital with bilateral lower extremity cellulitis and anasarca. He was started empirically on Zosyn and daptomycin. His lower extremity wound culture was positive for MSSA. Blood culture was negative. Patient has not had medical follow up or taken his medications for the last 2 years. Renal evaluation has revealed nephrotic range proteinuria, small kidneys w/ cortical thinning on US. Creatinine value 1.7 in 2015. 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 Plan to start renal replacement therapy with HD. Recommendations CHRONIC KIDNEY DISEASE: -- Evidence of progression to ESRD requiring STEEL ESTIMATOR for volume management and clearance -- Continue Furosemide to 120 mg IV BID -- Plan HD permcath placement today -- 24 hour urine collection notable for proteinuria 5 g/d -- Protect L arm for vascular access -- Continue NaHCO3 for management of metabolic acidosis -- manager office services to schedule outpatient HD at [facility] w/ Dr. Israel -- First dialysis treatment tomorrow pending catheter placement HYPERTENSION: -- Continue Hydralazine, Lasix and Metoprolol for BP management -- Increase hydralazine to 100 mg as needed ANEMIA: -- IV iron has been prescribed -- Will provide ERI when patient starts HD BONE & MINERAL METABOLISM: -- Calcitriol therapy has been started OTHER: -- None
[2016-10-08] MEDS: IRON SUCROSE INJ 200 MG in SODIUM CHLORIDE 0.9% 100ML 100 ML IV SCH (13:43)
[2016-10-08] MEDS ORDERED: HEPARIN SOD (PORCINE) 5000 UNIT/ML 1 ML VIAL ONE (14:03)
[2016-10-08] MEDS ORDERED: FENTANYL CITRATE INJ 50 MCG/1 ML 2 ML VIAL ONE (14:03)
[2016-10-08] MEDS ORDERED: MIDAZOLAM HCL 1 MG/ML 2ML VIAL ONE (14:03)
--- NOTE | 2016-10-08 14:28 | Progress Note ---
Progress Note Date of Service Oct 08, 2016. Progress Note Patient for insertion of permcath. I have discussed the risks options and benefits of the procedure with the patient. The patient understands the risks options and benefits and agrees to the procedure. I have examined the patient, reviewed the History & Physical and in the interval since the performance of the History & Physical I have noted the following changes of clinical significance: No changes noted
--- NOTE | 2016-10-08 14:29 | Procedure Note ---
Pre-Mod Sedation Assessment General Date of Moderate Sedation: Oct 08, 2016. Vital Signs: Vital Signs Past 12 Hours Date Time Temp Pulse Resp B/P Pulse Ox O2 Delivery O2 Flow Rate FiO2 10/08/16 13:43 165/77 10/08/16 13:33 63 168/72 10/08/16 13:00 63 169/82 10/08/16 11:29 63 167/87 10/08/16 08:58 63 173/81 10/08/16 07:50 Room Air 10/08/16 07:14 36.8 62 18 181/85 93 Room Air 10/08/16 05:41 61 173/87 Review Cardiovascular: regular rate, rhythm Abdomen: non tender, soft Lungs: lungs clear, no respiratory distress, no accessory muscle use, + decreased breath sounds Pre-Sedation Airway Assessment Smoking Status: Never Smoker Mallampati Classification: Class I ASA Classification: Class II Notes The planned sedation has been discussed with the patient and consent obtained. I have identified the patient, determined the appropriateness of sedation and have assessed the patient immediately prior to the procedure. All medicine(s) and interventions are by my order.
[2016-10-08] MEDS ORDERED: FENTANYL CITRATE INJ 50 MCG/1 ML 2 ML VIAL IV ONE ×2 (15:13→15:28)
[2016-10-08] MEDS ORDERED: MIDAZOLAM HCL 1 MG/ML 2ML VIAL IV ONE ×2 (15:13→15:15)
[2016-10-08] MEDS ORDERED: HEPARIN SOD (PORCINE) 5000 UNIT/ML 1 ML VIAL IV ONE (15:25)
[2016-10-08] MEDS ORDERED: LIDOCAINE HCL 1% 20 ML VIAL INFIL ONE (15:25)
--- NOTE | 2016-10-08 15:50 | [facility] Post Operative Brief Note ---
Immediate Operative Summary Operative Date Oct 08, 2016. Pre-Operative Diagnosis STEVE Post-Operative Diagnosis Same Procedure(s) Performed Insertion of Perm Catheter, Right Internal Jugular Approach Ultrasound Localization of Right Internal Jugular Vein Fluoroscopy for Comfiration Moderate Sedation ([id number]) Surgeon Juanito Debubblizer Surgeon(s) Chris Estimated Blood Loss 20 Findings tip in distal IVC Specimens None Anesthesia Local with conscious sedation Complication(s) None Disposition
--- NOTE | 2016-10-08 16:07 | DIAGNOSTIC IMAGING REPORT ---
DATE OF PROCEDURE: 10/08/2016 PREOPERATIVE DIAGNOSIS: Acute renal failure with need for dialysis. POSTOPERATIVE DIAGNOSIS: Same. PROCEDURE: Insertion of right internal jugular tunneled dialysis catheter. SURGEON: Dr. Ronny Solomon. GROUND SURVEILLANCE SYSTEMS OPERATOR: Dr. Lamont Perez. ANESTHESIA: Local plus conscious sedation. ESTIMATED BLOOD LOSS: 25 mL. INDICATIONS: This is a 56-year-old gentleman who has had worsening renal function. His it security project manager deems it necessary for dialysis. This need was imminent and therefore a tunneled dialysis catheter was indicated for dialysis access. The patient consented to the above procedure after the risks, benefits, and alternatives were explained. PROCEDURE: The patient was brought to the endovascular suite. The right neck and chest was prepped and draped in normal sterile fashion. Timeout was performed and all parties agreed to correct patient and procedure to be performed. Appropriate surgical prophylactic antibiotics were administered within 1 hour of the incision. Under ultrasound guidance, the right internal jugular vein was accessed on the first attempt. A wire was placed and advanced to the level of the superior vena cava. Next counterincision was made on the right chest wall. The tract was instilled with local anesthetic. Of note, the patient was quite large and weighted over 200 kilograms. The tract was somewhat deep for this reason. The catheter was brought out through the neck. Next, dilator was brought onto the field and advanced over the wire into the neck. This was sized to the proprietary dilator. The catheter was fed through the dilator. This passed easily. On completion of fluoroscopic imaging there was a small kink in this catheter. For this reason the wire was brought back onto the field and reinserted. With manipulation of the catheter and wire, we were able to straighten this out a fair bit. The catheter continued to take an anterior, posterior turn given the patient's large body habitus. However, the catheter continued to flush very well and appeared to be good apposition on completion imaging. The catheter was sutured in place. Heparinized saline was instilled in the end of both ports. The neck was closed with a running subcuticular suture. The patient was awakened and transferred to recovery room in satisfactory condition.
--- NOTE | 2016-10-08 19:37 | Progress Note ---
Subjective Date of Service: Oct 08, 2016. Subjective Pt evaluation today including: conversation w/ patient, physical exam, chart review, lab review, review of inpatient medication list feeling about the same - does note that he saw his weight go down and he was happy for TDC this afternoon HD likely not able to be started till tomorrow then no other complaints Problem List Medical Problems: (1) CHF exacerbation Status: Acute Review of Systems Constitutional: + weight loss Respiratory: No shortness of breath Cardiac: + edema, No chest pain ros otherwise negative excpt for as above Objective Vital Signs Date Time Temp Pulse Resp B/P Pulse Ox O2 Delivery O2 Flow Rate FiO2 10/08/16 19:34 36.7 64 18 173/76 92 Room Air 10/08/16 18:35 36.5 65 18 164/69 93 Room Air 10/08/16 17:35 36.4 65 20 178/80 92 Room Air 10/08/16 16:30 36.2 10/08/16 16:20 36.2 57 18 158/89 95 Room Air 10/08/16 16:10 60 18 175/77 95 Room Air 10/08/16 16:02 36.1 58 18 192/87 95 Room Air 10/08/16 13:43 165/77 10/08/16 13:33 63 168/72 10/08/16 13:00 63 169/82 10/08/16 11:29 63 167/87 10/08/16 08:58 63 173/81 10/08/16 07:50 Room Air 10/08/16 07:14 36.8 62 18 181/85 93 Room Air 10/08/16 05:41 61 173/87 10/08/16 00:01 61 177/81 93 Room Air 10/08/16 00:00 Room Air 10/07/16 23:18 36.6 59 16 162/84 92 Room Air 10/07/16 21:10 75 176/82 Physical Exam General Appearance: no apparent distress Eyes: EOMI ENT: hearing grossly normal Neck: trachea midline Respiratory/Chest: no respiratory distress, no accessory muscle use Extremities: normal range of motion Neurologic/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: 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 tested, alert, normal mood/affect Skin: normal color, warm/dry Laboratory Results Last 24 Hours Test 10/08/16 08:07 10/08/16 16:03 Sodium Level 143 mmol/L Potassium Level 4.4 mmol/L Chloride Level 109 mmol/L Carbon Dioxide Level 20 mmol/L Anion Gap 14.0 mmol/L Blood Urea Nitrogen 64 mg/dl Creatinine 5.40 mg/dl Est Creatinine Clear Calc Drug Dose 28.6 ml/min Estimated GFR () 12.8 Estimated GFR (Non- 11.1 BUN/Creatinine Ratio 11.8 Random Glucose 111 mg/dl Calcium Level 8.0 mg/dl Bedside Glucose 111 mg/dl Assessment and Plan ESRD - appearing hypertensive - for HD acute on chronic grade 2 diastolic CHF exacerbation upon admission -- appears more than anythign related to ESRD. anticipate improvement once he's on HD LVH and hypertension , Acute on chronic Diastolic CHF exacerbation, hypertension , blood pressure not optimized yet but expect improvement once HD started, will refrain on further meds for now Elevated troponin upon admission, likely because of mismatch and demanding ischemia, and ESRD making for poor clearance. no evidence of IA Bilateral lower extremity cellulitis stable and improved Was on on daptomycin 6 mg/kg IV daily, and Zosyn 3.375 mg IV every 12 hours since admission for 2 days, which was changed to oral Augmentin per sensitivities from wound culture which is MSSA, can stop. Morbid obesity Checked fasting lipid panel, which shows that total cholesterol 200, LDL less than 100, he does not have dyslipidemia he do not need any medication for now Check HbA1c, which is 6.7, and random blood glucose never more than 200, therefore I don't believe he has diabetic, no need any medicine for now TSH within normal limits Significant vitamin D deficiency, start vitamin D replacement 50,000 unit by mouth every week any time 6 week, and then 1000 unit by mouth daily DVT proph - heparin SQ.
[2016-10-08] MEDS: HEPARIN SOD 5000 UNIT/0.5 ML CARP SQ SCH (21:23)
[2016-10-09] VITALS (18 sets, daily range): BP systolic 149–197; BP diastolic 73–95; PULSE 56–67; TEMP 36.3–36.8; O2SAT 93–96
[2016-10-09] MEDS: HydrALAZINE HCL 20 MG/ML VIAL IV. PRN (04:01)
[2016-10-09] MEDS ORDERED: HEPARIN SOD (PORCINE) 1000 UNIT/ML 10 ML VIAL IV SCH (08:00)
[2016-10-09] MEDS: DOCUSATE SODIUM 100 MG CAP PO SCH ×2 (09:00→21:00)
--- NOTE | 2016-10-09 09:16 | Progress Note ---
Subjective Date of Service: Oct 09, 2016. Subjective Pt evaluation today including: conversation w/ patient, physical exam, chart review, lab review, review of inpatient medication list feeling ok no cp no sob R leg injury old but notes that it was twitching all night - happens from time to time about to go for HD no new complaitns Problem List Medical Problems: (1) CHF exacerbation Status: Acute Review of Systems Respiratory: No shortness of breath Cardiac: No chest pain Musculoskeletal: + see HPI ros otherwise negative except for as above Objective Vital Signs Date Time Temp Pulse Resp B/P Pulse Ox O2 Delivery O2 Flow Rate FiO2 10/09/16 07:20 Room Air 10/09/16 07:09 36.6 67 18 183/77 94 Room Air 10/09/16 06:01 175/82 10/09/16 03:46 36.8 62 16 174/81 93 Room Air 10/09/16 00:30 Room Air 10/08/16 22:53 36.6 64 16 155/75 93 Room Air 10/08/16 21:25 66 175/82 10/08/16 19:34 36.7 64 18 173/76 92 Room Air 10/08/16 18:35 36.5 65 18 164/69 93 Room Air 10/08/16 17:35 36.4 65 20 178/80 92 Room Air 10/08/16 17:05 36.5 62 18 141/64 92 Room Air 10/08/16 16:35 36.6 63 18 175/74 94 Room Air 10/08/16 16:35 94 Room Air 10/08/16 16:35 94 Room Air 10/08/16 16:30 36.2 10/08/16 16:20 36.2 57 18 158/89 95 Room Air 10/08/16 16:10 60 18 175/77 95 Room Air 10/08/16 16:02 36.1 58 18 192/87 95 Room Air 10/08/16 13:43 165/77 10/08/16 13:33 63 168/72 10/08/16 13:00 63 169/82 10/08/16 11:29 63 167/87 Physical Exam General Appearance: no apparent distress Eyes: EOMI ENT: hearing grossly normal Neck: trachea midline Respiratory/Chest: no respiratory distress, no accessory muscle use Extremities: normal range of motion, + pertinent finding (RLE small amplitude twitches) Neurologic/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 expect improvmeent w HD starting today LVH and hypertension , Acute on chronic Diastolic CHF exacerbation, hypertension , blood pressure not optimized yet but expect improvement once HD started, will refrain on further meds for now Elevated troponin upon admission, likely because of mismatch and demanding ischemia, and ESRD making for poor clearance. no evidence of VA Bilateral lower extremity cellulitis stable and improved -stable off abx Morbid obesity lipids noted - actually low questionable role for statin A1c 6.7 - diet controlled diabetic TSH within normal limits Significant vitamin D deficiency, start vitamin D replacement 50,000 unit by mouth every week any time 6 week, and then 1000 unit by mouth daily DVT proph - heparin SQ.
[2016-10-09 09:27] LABS: HEPATITIS B AB NEG
[2016-10-09] MEDS: NEPHROCAPS PO SCH (11:56)
[2016-10-09] MEDS: CALCITRIOL 0.25 MCG CAP PO SCH (11:56)
[2016-10-09] MEDS: FUROSEMIDE INJ 120 MG in SYRINGE 0 ML IV SCH ×2 (11:58→21:27)
[2016-10-09] MEDS: METOPROLOL TARTRATE 100 MG TAB PO SCH ×2 (11:58→21:26)
[2016-10-09] MEDS: SODIUM BICARBONATE 650 MG TAB PO SCH ×2 (11:59→21:24)
[2016-10-09] MEDS: HEPARIN SOD 5000 UNIT/0.5 ML CARP SQ SCH ×2 (12:02→21:30)
--- NOTE | 2016-10-09 12:21 | Dialysis Progress Note ---
Hemodialysis Note Date of Service Oct 09, 2016. Chief Complaint STEVE/CKD Subjective Mr. Quinonez was seen and evaluated during hemodialysis this morning. He was tolerating the treatment well. Appropriate Qb via TDC. Blood pressure appropriate. Overall he feels well. No acute events overnight. Review of Systems A complete review of systems was performed. Pertinent positives are noted above. All other systems are negative. Vital Signs Last 8 Hrs Date Time Temp Pulse Resp B/P Pulse Ox O2 Delivery O2 Flow Rate FiO2 10/09/16 11:42 36.8 65 15 178/76 94 Room Air 10/09/16 09:30 64 191/89 10/09/16 09:15 64 190/95 10/09/16 09:00 59 177/89 10/09/16 08:56 62 175/88 10/09/16 07:20 Room Air 10/09/16 07:09 36.6 67 18 183/77 94 Room Air 10/09/16 06:01 175/82 I & O 24-Hour Column 10/09/16 08:00 Intake Total 100 ml Balance 100 ml Last Recorded Weight Weight (Kilograms): 201.000 Physical Exam General Appearance: no apparent distress, + obese Head: normocephalic, atraumatic Eyes: normal inspection, sclerae normal ENT: normal ENT inspection, pharynx normal Neck: supple, no JVD, + pertinent finding (WA[facility] HD TDC) Respiratory/Chest: no respiratory distress, no accessory muscle use, + decreased breath sounds Cardiovascular: regular rate, rhythm, no gallop Abdomen/GI: non tender, soft, + pertinent finding (obese, distended, non tender ) Neurologic/Psych: alert, oriented x 3 Social History Smokeless Tobacco Use: No Drug Use: none Occupation: employed Laboratory Results Past 24 Hours Test 10/08/16 16:03 10/09/16 08:35 Bedside Glucose 111 mg/dl (70-99) Hepatitis B Surface Antigen NEG (NEG) Hepatitis B Surface Antibody NEG Allergies Coded Allergies: No Known Allergies (Unverified , 09/30/16) Medications Current Inpatient Medications Medications (Trade) Dose Ordered Sig/Chavez Route Start Time Stop Time Status Last Admin Dose Admin Acetaminophen (Tylenol Tab) 650 mg Q4H PRN PO 09/30/16 19:15 10/30/16 19:14 Zolpidem Tartrate (Ambien Tab) 5 mg HSZ PRN PO 09/30/16 19:15 10/30/16 19:14 Ondansetron HCl (Zofran Inj) 4 mg Q6H PRN IV 09/30/16 19:30 10/30/16 19:29 Glucose (Glucose 40% Gel) UD PRN PO 09/30/16 19:30 10/30/16 19:29 Glucose (Glucose Chew Tab) 1 tabs UD PRN PO 09/30/16 19:30 10/30/16 19:29 Dextrose (Dextrose 50% 50ML Syringe) 50 ml UD PRN IV 09/30/16 19:30 10/30/16 19:29 Glucagon (Glucagon Inj) 1 mg UD PRN SQ 09/30/16 19:30 10/30/16 19:29 Hydralazine HCl (HydrALAZINE INJ) 10 mg Q4H PRN IV. 09/30/16 19:45 10/30/16 19:44 10/09/16 04:01 10 MG Miconazole Nitrate (Desenex Powder) 1 appln QS PRN EXT 10/01/16 20:45 10/31/16 20:44 Calcitriol 0.25 mcg 0.25 mcg QAM PO 10/03/16 09:00 11/02/16 08:59 10/09/16 11:56 0.25 MCG Iron Sucrose/ Sodium Chloride (Venofer Inj/Nss 100ml) 110 ml @ 220 mls/hr Q2D@1400 IV 10/02/16 14:00 10/10/16 18:00 10/08/16 13:43 220 MLS/HR Ergocalciferol (Vitamin D Cap) 50,000 interunit Q7D PO 10/03/16 09:00 12/19/16 09:01 10/03/16 10:56 50,000 INTERUNIT Sodium Bicarbonate (Sodium Bicarbonate Tab) 1,300 mg BID PO 10/04/16 21:00 11/03/16 20:59 10/09/16 11:59 1,300 MG Metoprolol Tartrate (Lopressor Tab) 100 mg BID PO 10/04/16 21:00 11/03/16 20:59 10/09/16 11:58 100 MG Docusate Sodium (coLACE CAP) 100 mg BID PO 10/05/16 21:00 11/04/16 20:59 10/07/16 21:18 100 MG Polyethylene 17 gm 17 gm DAILY PRN PO 10/05/16 09:15 11/04/16 09:14 Furosemide/Syringe (Lasix Inj/ Syringe) 12 ml @ 4 mls/min BID IV 10/06/16 21:00 11/05/16 20:59 10/09/16 11:58 4 MLS/MIN Vitamin B Complex/ Vit C/Folic Acid (Nephrocaps) 1 cap QAM PO 10/07/16 09:00 11/06/16 08:59 10/09/16 11:56 1 CAP Hydralazine HCl (Apresoline Tab) 75 mg 3XDQ4 PO 10/07/16 12:00 11/06/16 11:59 10/09/16 11:57 75 MG Heparin Sodium (Porcine) (Heparin Sq 5000 Unit/0.5ml) 5,000 unit Q12 SQ 10/07/16 21:00 11/06/16 20:59 Future hold 10/09/16 12:02 5,000 UNIT Heparin Sodium (Porcine) (Heparin Iv Bolus) 2,000 unit TODAY@0800 IV 10/09/16 08:00 10/09/16 19:00 Impression (1) STEVE (acute kidney injury) (2) Metabolic acidosis (3) Hypertension (4) Anemia (5) Bilateral lower leg cellulitis (6) Anasarca (7) Secondary hyperparathyroidism of renal origin (8) Nephrotic syndrome Michael is a 56 year old male w/ HTN, T2DM and morbid obesity (BMI 61). He was admitted to the hospital with bilateral lower extremity cellulitis and anasarca. He was started empirically on Zosyn and daptomycin. His lower extremity wound culture was positive for MSSA. Blood culture was negative. Patient has not had medical follow up or taken his medications for the last 2 years. Renal evaluation has revealed nephrotic range proteinuria, small kidneys w/ cortical thinning on US. Creatinine value 1.7 in 2015. 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 Right IJ HD permcath placed 10/08/16. First HD treatment 10/09/16. Recommendations CHRONIC KIDNEY DISEASE: -- ESRD requiring dialysis for volume control and clearance -- Continue Furosemide to 120 mg IV BID -- Tolerating dialysis well today, plan next treatment tomorrow -- 24 hour urine collection notable for proteinuria 5 g/d -- Protect L arm for vascular access -- Continue NaHCO3 for management of metabolic acidosis -- client services vice president to schedule outpatient HD at [facility] w/ Dr. Israel. Discussed with Dr. Israel today. Mr. Quinonez is not a candidate for PD at this time. He may be a candidate for home hemodialysis if arrangements can be made through the clinic. He will require more information prior to making any decisions regarding home dialysis. -- First dialysis treatment today HYPERTENSION: -- Continue Hydralazine, Lasix and Metoprolol for BP management ANEMIA: -- IV iron has been prescribed -- Will provide ERI when patient starts HD BONE & MINERAL METABOLISM: -- Calcitriol therapy has been started OTHER: -- None
[2016-10-09] MEDS: ACETAMINOPHEN 325 MG TAB PO PRN ×2 (15:56→22:43)
[2016-10-09] MEDS: MICONAZOLE NITRATE POWDER 43 GM EXT PRN (16:13)
[2016-10-10] VITALS (20 sets, daily range): BP systolic 146–214; BP diastolic 77–101; PULSE 56–71; TEMP 36.4–37.2; O2SAT 93–95
[2016-10-10 05:59] LABS: HEMATOCRIT 34.9 % (42-52); MEAN CELL VOLUME 84.9 fL (80-100); MEAN CORPUSCULAR HEMOGLOBIN 26.5 pg (25-34); MEAN CORPUSCULAR HGB CONC 31.2 g/dl (32-36); MEAN PLATELET VOLUME 10.2 fL (7.4-10.4); PLATELET COUNT 257 K/uL (130-400); RED BLOOD COUNT 4.11 M/uL (4.7-6.1); WHITE BLOOD COUNT 6.01 K/uL (4.8-10.8)
[2016-10-10] MEDS: MICONAZOLE NITRATE POWDER 43 GM EXT PRN (07:30)
[2016-10-10] MEDS ORDERED: HEPARIN SOD (PORCINE) 1000 UNIT/ML 10 ML VIAL IV SCH (08:00)
[2016-10-10] MEDS: ACETAMINOPHEN 325 MG TAB PO PRN (08:19)
[2016-10-10] MEDS: DOCUSATE SODIUM 100 MG CAP PO SCH ×3 (09:00→20:46)
--- NOTE | 2016-10-10 10:49 | Dialysis Progress Note ---
Hemodialysis Note Date of Service Oct 10, 2016. Chief Complaint STEVE/CKD Subjective No acute events overnight. Tolerated HD yesterday, net UF 1.7 kg. Seen and evaluated during hemodialysis today. Tolerating HD without complications. Denies shortness of breath. Edema improving. Review of Systems A complete review of systems was performed. Pertinent positives are noted above. All other systems are negative. Vital Signs Last 8 Hrs Date Time Temp Pulse Resp B/P Pulse Ox O2 Delivery O2 Flow Rate FiO2 10/10/16 07:51 36.6 66 21 177/77 93 Room Air 10/10/16 07:20 Room Air I & O 24-Hour Column 10/10/16 08:00 Intake Total 975 ml Output Total 1700 ml Balance -725 ml Last Recorded Weight Weight (Kilograms): 199.300 Physical Exam General Appearance: no apparent distress, + obese Head: normocephalic, atraumatic Eyes: normal inspection, sclerae normal ENT: normal ENT inspection, pharynx normal Neck: supple, + pertinent finding (hick, no JVD) Respiratory/Chest: no respiratory distress, no accessory muscle use, + decreased breath sounds Cardiovascular: regular rate, rhythm, no gallop Abdomen/GI: non tender, soft Extremities/Musculoskelatal: normal inspection, + pedal edema (generalized edema) Neurologic/Psych: alert, oriented x 3 Social History Smokeless Tobacco Use: No Drug Use: none Occupation: employed Laboratory Results Past 24 Hours 10/10/16 05:27 Test 10/10/16 05:27 Red Blood Count 4.11 M/uL (4.7-6.1) Mean Corpuscular Volume 84.9 fL (80-100) Mean Corpuscular Hemoglobin 26.5 pg (25-34) Mean Corpuscular Hemoglobin Concent 31.2 g/dl (32-36) RDW Standard Deviation 58.1 fL (36.4-46.3) RDW Coefficient of Variation 19.1 % (11.5-14.5) Mean Platelet Volume 10.2 fL (7.4-10.4) Allergies Coded Allergies: No Known Allergies (Unverified , 09/30/16) Medications Current Inpatient Medications Medications (Trade) Dose Ordered Sig/Chavez Route Start Time Stop Time Status Last Admin Dose Admin Acetaminophen (Tylenol Tab) 650 mg Q4H PRN PO 09/30/16 19:15 4/12/17 19:14 10/10/16 08:19 650 MG Zolpidem Tartrate (Ambien Tab) 5 mg HSZ PRN PO 09/30/16 19:15 10/30/16 19:14 Ondansetron HCl (Zofran Inj) 4 mg Q6H PRN IV 09/30/16 19:30 10/30/16 19:29 Glucose (Glucose 40% Gel) UD PRN PO 09/30/16 19:30 10/30/16 19:29 Glucose (Glucose Chew Tab) 1 tabs UD PRN PO 09/30/16 19:30 10/30/16 19:29 Dextrose (Dextrose 50% 50ML Syringe) 50 ml UD PRN IV 09/30/16 19:30 10/30/16 19:29 Glucagon (Glucagon Inj) 1 mg UD PRN SQ 09/30/16 19:30 10/30/16 19:29 Hydralazine HCl (HydrALAZINE INJ) 10 mg Q4H PRN IV. 09/30/16 19:45 10/30/16 19:44 10/09/16 04:01 10 MG Miconazole Nitrate (Desenex Powder) 1 appln QS PRN EXT 10/01/16 20:45 10/31/16 20:44 10/09/16 16:13 1 APPLN Calcitriol 0.25 mcg 0.25 mcg QAM PO 10/03/16 09:00 11/02/16 08:59 10/09/16 11:56 0.25 MCG Iron Sucrose/ Sodium Chloride (Venofer Inj/Nss 100ml) 110 ml @ 220 mls/hr Q2D@1400 IV 10/02/16 14:00 10/10/16 18:00 10/08/16 13:43 220 MLS/HR Ergocalciferol (Vitamin D Cap) 50,000 interunit Q7D PO 10/03/16 09:00 12/19/16 09:01 10/03/16 10:56 50,000 INTERUNIT Sodium Bicarbonate (Sodium Bicarbonate Tab) 1,300 mg BID PO 10/04/16 21:00 11/03/16 20:59 10/09/16 21:24 1,300 MG Metoprolol Tartrate (Lopressor Tab) 100 mg BID PO 10/04/16 21:00 4/16/17 20:59 10/09/16 21:26 100 MG Docusate Sodium (coLACE CAP) 100 mg BID PO 10/05/16 21:00 11/04/16 20:59 10/07/16 21:18 100 MG Polyethylene 17 gm 17 gm DAILY PRN PO 10/05/16 09:15 11/04/16 09:14 Furosemide/Syringe (Lasix Inj/ Syringe) 12 ml @ 4 mls/min BID IV 10/06/16 21:00 11/05/16 20:59 10/09/16 21:27 4 MLS/MIN Vitamin B Complex/ Vit C/Folic Acid (Nephrocaps) 1 cap QAM PO 10/07/16 09:00 11/06/16 08:59 10/09/16 11:56 1 CAP Hydralazine HCl (Apresoline Tab) 75 mg 3XDQ4 PO 10/07/16 12:00 11/06/16 11:59 10/09/16 16:14 75 MG Heparin Sodium (Porcine) (Heparin Sq 5000 Unit/0.5ml) 5,000 unit Q12 SQ 10/07/16 21:00 11/06/16 20:59 Future hold 10/09/16 21:30 5,000 UNIT Heparin Sodium (Porcine) (Heparin Iv Bolus) 2,000 unit TODAY@0800 IV 10/10/16 08:00 10/10/16 16:00 Impression (1) STEVE (acute kidney injury) (2) Metabolic acidosis (3) Hypertension (4) Anemia (5) Bilateral lower leg cellulitis (6) Anasarca (7) Secondary hyperparathyroidism of renal origin (8) Nephrotic syndrome Michael is a 56 year old male w/ HTN, T2DM and morbid obesity (BMI 61). He was admitted to the hospital with bilateral lower extremity cellulitis and anasarca. He was started empirically on Zosyn and daptomycin. His lower extremity wound culture was positive for MSSA. Blood culture was negative. Patient has not had medical follow up or taken his medications for the last 2 years. Renal evaluation has revealed nephrotic range proteinuria, small kidneys w/ cortical thinning on US. Creatinine value 1.7 in 2015. 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 Right IJ HD permcath placed 10/08/16. First HD treatment 10/09/16. Recommendations CHRONIC KIDNEY DISEASE: -- ESRD requiring dialysis for volume control and clearance -- Continue Furosemide to 120 mg IV BID -- Tolerating dialysis well today, plan next treatment tomorrow -- Protect L arm for vascular access -- Stop oral NaHCO3 -- Discussed plan of care with Dr. Carbajal today HYPERTENSION: -- Continue Hydralazine, Lasix and Metoprolol for BP management ANEMIA: -- IV iron has been prescribed -- Will provide ERI when patient starts HD BONE & MINERAL METABOLISM: -- Calcitriol therapy has been started OTHER: -- None
[2016-10-10] MEDS: ERGOCALCIFEROL 50,000 INTER.UNIT CAP PO SCH (13:26)
[2016-10-10] MEDS: METOPROLOL TARTRATE 100 MG TAB PO SCH ×2 (13:26→20:41)
[2016-10-10] MEDS: CALCITRIOL 0.25 MCG CAP PO SCH (13:27)
[2016-10-10] MEDS: FUROSEMIDE INJ 120 MG in SYRINGE 0 ML IV SCH ×2 (13:27→20:38)
[2016-10-10] MEDS: NEPHROCAPS PO SCH (13:28)
[2016-10-10] MEDS: HEPARIN SOD 5000 UNIT/0.5 ML CARP SQ SCH ×2 (13:29→20:39)
[2016-10-10] MEDS: IRON SUCROSE INJ 200 MG in SODIUM CHLORIDE 0.9% 100ML 100 ML IV SCH (13:34)
[2016-10-10] MEDS: HydrALAZINE HCL 20 MG/ML VIAL IV. PRN (14:33)
--- NOTE | 2016-10-10 15:18 | Progress Note ---
Progress Note Date of Service Oct 10, 2016. Progress Note Pt for LUE AVF creation in OR tomorrow. Procedure, risks, benefits, and alternatives discussed with pt, he expresses understanding and agreement.
--- NOTE | 2016-10-10 15:19 | Cardiology Follow-Up ---
Subjective Date of Service: Oct 10, 2016. Pt evaluation today including: conversation w/ patient, physical exam, lab review, review of studies, review of inpatient medication list History of Present Illness This is a 56-year-old male with a long history of hypertension for which he is noncompliant with medications, obesity and long-standing peripheral edema. He presents now with worsening of his lower extremity edema as well as erythema for the last month or so. He also has progressive dyspnea on exertion but denies exertional chest discomfort. He has no palpitations. On admission he waqs been placed on diuretics, however his weight had risen and his I/O was generally positive, his creatinine had been rising as well. Ultimately he ended up on dialysis, today is his second day of dialysis. Today he has no complaints, he is not having shortness of breath at rest or with minimal activity (he has not tried to ambulate in the hallways). He feels considerably better than he did before he started dialysis. Social History Smoking Status: Never Smoker History of Alcohol Use: No Review of Systems Respiratory: No shortness of breath Cardiac: No chest pain Medications Cardiovascular: Item Value Date Time Hydralazine HCl 75 mg 10/07/16 1200 (Apresoline Tab) 3XDQ4/PO Furosemide 120 mg/ 12 ml @ 4 mls/min 10/06/16 2100 Syringe BID/IV 10/09/162126 Metoprolol 100 mg 10/04/16 2100 Tartrate BID/PO 10/09/162125 (Lopressor Tab) Hydralazine HCl 10 mg 09/30/16 1945 (HydrALAZINE INJ) Q4H PRN/IV. 10/09/16 0401 Objective Vital Signs Past 12 Hours Date Time Temp Pulse Resp B/P Pulse Ox O2 Delivery O2 Flow Rate FiO2 10/10/16 12:30 57 205/95 10/10/16 12:15 58 203/91 10/10/16 12:00 59 206/97 10/10/16 11:45 59 190/92 10/10/16 11:30 59 208/94 10/10/16 11:15 63 209/101 10/10/16 11:00 57 212/92 10/10/16 10:45 60 199/95 10/10/16 10:30 56 195/91 10/10/16 10:15 57 197/92 10/10/16 10:00 62 204/86 10/10/16 09:45 64 212/92 10/10/16 09:40 37.2 65 209/93 10/10/16 07:51 36.6 66 21 177/77 93 Room Air 10/10/16 07:20 Room Air Last Recorded Weight-Kilograms: 199.300 Intake & Output 8-Hour Column 10/09/16 10/10/16 10/10/16 16:00 00:00 08:00 Intake Total 275 ml 700 ml Output Total 1700 ml Balance -1425 ml 700 ml 24-Hour Column 10/10/16 08:00 Intake Total 975 ml Output Total 1700 ml Balance -725 ml Physical Exam Constitutional: General Apperance: well-nourished, well-developed, obese (morbidly) Level of Distress: NAD, chronically ill Lungs: Respiratory effort: no dyspnea, good air movement Auscultation: breath sounds normal, no wheezing Cardiovascular: Heart Auscultation: RRR, no murmurs, no rubs, no gallops Peripheral Pulses: Bruits: none appreciated Carotid Pulse: normal on the left, normal on the right Radial Pulse: normal on the left, normal on the right Femoral Pulse: decreased on the left, decreased on the right Dorsalis Pedis Pulse: pertinent finding (unable to palpate d/t edema, feet warm, brisk cap refill) Extremities: edema (+3 bilateral lower extremity edema with signs of chronic venous stasis) Data Laboratory Results: Last 24 Hours Test 10/10/16 05:27 White Blood Count 6.01 K/uL Red Blood Count 4.11 M/uL Hemoglobin 10.9 g/dL Hematocrit 34.9 % Mean Corpuscular Volume 84.9 fL Mean Corpuscular Hemoglobin 26.5 pg Mean Corpuscular Hemoglobin Concent 31.2 g/dl RDW Standard Deviation 58.1 fL RDW Coefficient of Variation 19.1 % Platelet Count 257 K/uL Mean Platelet Volume 10.2 fL Assessment and Plan #1. Acute on chronic kidney disease: Nephrology following, I imagine diabetes and hypertension were contributors. Hopefully this will improve but was worsening here. Now on hemodialysis. #2. Long-standing hypertension: Noncompliant with medications as an outpatient, here his blood pressures extremely elevated the last few days. He has evidence of target organ damage and his blood pressure should be controlled. He remains on metoprolol tartrate 100 mg PO BID, his BP is still up. He is very large and this is probably not a high dose, I'm going to increase it to 150 mg twice a day. #3. Left ventricular hypertrophy: He almost certainly has diastolic dysfunction and possibly the beginnings of hypertensive cardiomyopathy and therefore his cardiac function may contribute somewhat to his edema although the primary cause is probably his kidney function. There is nothing to do with this other than controlling his hypertension in hopes that his LVH will either remain stable or resolve somewhat. #4. Edema: Probably due to fluid retention caused by kidney disease, although contribution of elevated pressures due to left ventricular diastolic dysfunction is likely. #5. Elevated cardiac enzymes: His troponin was minimally elevated, I suspect this was all demand ischemia, there is no evidence that this is infarction. He has exertional shortness of breath but denies exertional chest discomfort. I would not pursue an evaluation for coronary disease at this time. Thank you for allowing me to participate in his care.
--- NOTE | 2016-10-10 15:20 | Anesthesiology Progress Note ---
Anesthesia Progress Note Date of Service Oct 10, 2016. Progress Notes The patient is a 56 y/o male scheduled for a L wrist AV fistula tomorrow with Dr. Solomon. He was admitted on 09/30/16 with worsening edema in his legs. He has a history of HTN with noncompliance in taking medications. He also has acute on chronic kidney disease with secondary hyperparathyroidism. He was found to have type two diastolic heart failure and had a troponin elevation to 0.046 on 10/01/16 likely due to demand ischemia as per Dr. Short. Other PMH includes anemia and morbid obesity. He was dialyzed for the first time yesterday and then was dialyzed again today. Several liters of fluid were removed. He feels much better now as the edema has decreased and he feels more energetic. The patient's CXR from 09/30/16 showed cardiomegaly with vascular congestion. EKG from 10/02/16 showed NSR. Echo from 10/01/16 showed EF 50-55%, type 2 diastolic dysfunction, severe LVH, L atrium dilation, and mild MR. Labs are significant for hgb 10.9, bicarb 20, BUN 64, and Cr 5.4. On exam the patient was sitting comfortable. He is obese with a thick neck and brown. Good neck ROM. Dentition is poor but intact. He has a MP 3 airway. Lungs were clear but diminished bilaterally. Heart was RRR. Carotids were negative for bruits. He had some pitting edema in lower extremities bilaterally. The patient was consented to MAC sedation. He was counseled to remain NPO after midnight except for sips of water with pills.
--- NOTE | 2016-10-10 17:30 | Progress Note ---
Subjective Date of Service: Oct 10, 2016. Subjective pt was seen in dialysis not active complaints, agreeable to speaking to case management about application of medical assistance Problem List Medical Problems: (1) CHF exacerbation Status: Acute Review of Systems Constitutional: + fatigue, + weakness, No chills, No fever Respiratory: + dyspnea on exertion, + shortness of breath, No cough Cardiac: + edema, No chest pain Abdomen: No diarrhea, No nausea, No pain, No vomiting Male : No dysuria, No urinary frequency Psychiatric: No anhedonism, No depression symptoms Objective Vital Signs Date Time Temp Pulse Resp B/P Pulse Ox O2 Delivery O2 Flow Rate FiO2 10/10/16 16:21 94 Room Air 10/10/16 15:20 36.4 65 18 146/78 94 Room Air 10/10/16 14:32 71 182/80 10/10/16 13:23 36.7 71 17 169/80 95 Room Air 10/10/16 13:00 36.7 60 214/97 10/10/16 12:30 57 205/95 10/10/16 12:15 58 203/91 10/10/16 12:00 59 206/97 10/10/16 11:45 59 190/92 10/10/16 11:30 59 208/94 10/10/16 11:15 63 209/101 10/10/16 11:00 57 212/92 10/10/16 10:45 60 199/95 10/10/16 10:30 56 195/91 10/10/16 10:15 57 197/92 10/10/16 10:00 62 204/86 10/10/16 09:45 64 212/92 10/10/16 09:40 37.2 65 209/93 10/10/16 07:51 36.6 66 21 177/77 93 Room Air 10/10/16 07:20 Room Air 10/09/16 23:18 36.5 58 18 149/75 96 Room Air 10/09/16 23:10 Room Air Physical Exam General Appearance: WD/WN, + moderate distress, + obese Neck: supple, thyroid normal Respiratory/Chest: chest non-tender, + decreased breath sounds, + accessory muscle use Cardiovascular: regular rate, rhythm, no murmur Abdomen: normal bowel sounds, soft Extremities: + pedal edema, + swelling Neurologic/Psychiatric: alert, oriented x 3 Laboratory Results Last 24 Hours Test 10/10/16 05:27 White Blood Count 6.01 K/uL Red Blood Count 4.11 M/uL Hemoglobin 10.9 g/dL Hematocrit 34.9 % Mean Corpuscular Volume 84.9 fL Mean Corpuscular Hemoglobin 26.5 pg Mean Corpuscular Hemoglobin Concent 31.2 g/dl RDW Standard Deviation 58.1 fL RDW Coefficient of Variation 19.1 % Platelet Count 257 K/uL Mean Platelet Volume 10.2 fL Assessment and Plan ESRD - hypertensive renal disease with non compliance - for HD 10/09 and dialy until nephrology feels we have made progress with off loading fluid acute on chronic grade 2 diastolic CHF exacerbation upon admission -- volume overload due to renal failure Elevated troponin upon admission, likely because of mismatch and demanding ischemia, and ESRD making for poor clearance. no evidence of acs Bilateral lower extremity cellulitis stable and improved off abx Morbid obesity type 2 diabetes, A1c 6.7 - diet controlled Significant vitamin D deficiency, start vitamin D replacement 50,000 unit by mouth every week any time 6 week, and then 1000 unit by mouth daily DVT proph - heparin SQ will need some means to support dialysis via insurance, case management to assist.
[2016-10-10] MEDS: METOPROLOL TARTRATE 50 MG TAB PO SCH (20:41)
[2016-10-11] VITALS (19 sets, daily range): BP systolic 147–206; BP diastolic 71–97; PULSE 50–71; TEMP 36.4–36.8; O2SAT 91–97
[2016-10-11] MEDS: ACETAMINOPHEN 325 MG TAB PO PRN (03:17)
[2016-10-11] MEDS ORDERED: CEFAZOLIN 3000 MG/65 ML D5W 65 ML IV SCH (06:00)
[2016-10-11] MEDS ORDERED: HEPARIN SOD (PORCINE) 1000 UNIT/ML 10 ML VIAL IV SCH (06:00)
[2016-10-11] MEDS: HEPARIN SOD (PORCINE) 1000 UNIT/ML 10 ML VIAL IV SCH ×3 (07:00→09:00)
[2016-10-11] MEDS: NEPHROCAPS PO SCH (09:00)
[2016-10-11] MEDS: METOPROLOL TARTRATE 50 MG TAB PO SCH ×2 (09:00→21:33)
[2016-10-11] MEDS: METOPROLOL TARTRATE 100 MG TAB PO SCH ×2 (09:00→21:33)
[2016-10-11] MEDS: CALCITRIOL 0.25 MCG CAP PO SCH (09:00)
[2016-10-11] MEDS: EPOETIN ALFA 4000 UNITS/ML VIAL IV SCH ×2 (09:00→14:36)
[2016-10-11] MEDS: DOCUSATE SODIUM 100 MG CAP PO SCH ×2 (09:00→21:00)
[2016-10-11] MEDS: HEPARIN SOD 5000 UNIT/0.5 ML CARP SQ SCH ×2 (09:00→21:36)
--- NOTE | 2016-10-11 10:06 | Dialysis Progress Note ---
Hemodialysis Note Date of Service Oct 11, 2016. Chief Complaint STEVE/CKD Subjective No acute events overnight. Seen and evaluated during hemodialysis today. Tolerated HD yesterday without complications, UF 4 kg. Minimal improvement in edema. No shortness of breath. Mr. Quinonez had not complaints or concerns today. Review of Systems A complete review of systems was performed. Pertinent positives are noted above. All other systems are negative. Vital Signs Last 8 Hrs Date Time Temp Pulse Resp B/P Pulse Ox O2 Delivery O2 Flow Rate FiO2 10/11/16 07:45 Room Air 10/11/16 06:33 36.6 60 18 172/81 97 Room Air I & O 24-Hour Column 10/11/16 07:59 Intake Total 300 ml Output Total 4000 ml Balance -3700 ml Last Recorded Weight Weight (Kilograms): 199.300 Physical Exam General Appearance: no apparent distress, + obese Head: normocephalic, atraumatic Eyes: normal inspection, sclerae normal ENT: normal ENT inspection, pharynx normal Neck: supple, + pertinent finding (thick unable to appreciate JVP) Respiratory/Chest: lungs clear, no respiratory distress, no accessory muscle use Cardiovascular: regular rate, rhythm, no gallop Abdomen/GI: non tender, soft Extremities/Musculoskelatal: normal inspection, + pedal edema (generalized edema) Neurologic/Psych: alert, oriented x 3 Social History Smokeless Tobacco Use: No Drug Use: none Occupation: employed Allergies Coded Allergies: No Known Allergies (Unverified , 09/30/16) Medications Current Inpatient Medications Medications (Trade) Dose Ordered Sig/Chavez Route Start Time Stop Time Status Last Admin Dose Admin Acetaminophen (Tylenol Tab) 650 mg Q4H PRN PO 09/30/16 19:15 10/30/16 19:14 10/11/16 03:17 650 MG Zolpidem Tartrate (Ambien Tab) 5 mg HSZ PRN PO 09/30/16 19:15 10/30/16 19:14 Ondansetron HCl (Zofran Inj) 4 mg Q6H PRN IV 09/30/16 19:30 10/30/16 19:29 Glucose (Glucose 40% Gel) UD PRN PO 09/30/16 19:30 10/30/16 19:29 Glucose (Glucose Chew Tab) 1 tabs UD PRN PO 09/30/16 19:30 10/30/16 19:29 Dextrose (Dextrose 50% 50ML Syringe) 50 ml UD PRN IV 09/30/16 19:30 10/30/16 19:29 Glucagon (Glucagon Inj) 1 mg UD PRN SQ 09/30/16 19:30 10/30/16 19:29 Hydralazine HCl (HydrALAZINE INJ) 10 mg Q4H PRN IV. 09/30/16 19:45 10/30/16 19:44 10/10/16 14:33 10 MG Miconazole Nitrate (Desenex Powder) 1 appln QS PRN EXT 10/01/16 20:45 10/31/16 20:44 10/10/16 07:30 1 APPLN Calcitriol (Rocaltrol Cap) 0.25 mcg QAM PO 10/03/16 09:00 11/02/16 08:59 10/10/16 13:27 0.25 MCG Ergocalciferol (Vitamin D Cap) 50,000 interunit Q7D PO 10/03/16 09:00 12/19/16 09:01 10/10/16 13:26 50,000 INTERUNIT Metoprolol Tartrate (Lopressor Tab) 100 mg BID PO 10/04/16 21:00 11/03/16 20:59 10/10/16 20:41 100 MG Docusate Sodium (coLACE CAP) 100 mg BID PO 10/05/16 21:00 11/04/16 20:59 10/07/16 21:18 100 MG Polyethylene 17 gm 17 gm DAILY PRN PO 10/05/16 09:15 11/04/16 09:14 Furosemide/Syringe (Lasix Inj/ Syringe) 12 ml @ 4 mls/min BID IV 10/06/16 21:00 11/05/16 20:59 10/10/16 20:38 4 MLS/MIN Vitamin B Complex/ Vit C/Folic Acid (Nephrocaps) 1 cap QAM PO 10/07/16 09:00 11/06/16 08:59 10/10/16 13:28 1 CAP Hydralazine HCl (Apresoline Tab) 75 mg 3XDQ4 PO 10/07/16 12:00 11/06/16 11:59 10/10/16 15:32 75 MG Heparin Sodium (Porcine) (Heparin Sq 5000 Unit/0.5ml) 5,000 unit Q12 SQ 10/07/16 21:00 11/06/16 20:59 Future hold 10/10/16 20:39 5,000 UNIT Metoprolol Tartrate 50 mg 50 mg BID PO 10/10/16 21:00 11/09/16 20:59 10/10/16 20:41 50 MG Cefazolin Sodium (Ancef 3000 Mg/ 65 ml D5W) 65 ml @ 100 mls/hr PREOP IV 10/11/16 06:00 10/11/16 18:00 Heparin Sodium (Porcine) (Heparin Iv Bolus) 2,000 unit TODAY@0600 IV 10/11/16 06:00 10/11/16 14:00 Epoetin Kb (Procrit Inj) 4,000 units TODAY@0900 IV 10/11/16 09:00 10/11/16 23:59 Impression (1) STEVE (acute kidney injury) (2) Metabolic acidosis (3) Hypertension (4) Anemia (5) Bilateral lower leg cellulitis (6) Anasarca (7) Secondary hyperparathyroidism of renal origin (8) Nephrotic syndrome Michael is a 56 year old male w/ HTN, T2DM and morbid obesity (BMI 61). He was admitted to the hospital with bilateral lower extremity cellulitis and anasarca. He was started empirically on Zosyn and daptomycin. His lower extremity wound culture was positive for MSSA. Blood culture was negative. Patient has not had medical follow up or taken his medications for the last 2 years. Renal evaluation has revealed nephrotic range proteinuria, small kidneys w/ cortical thinning on US. Creatinine value 1.7 in 2015. 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 Right IJ HD permcath placed 10/08/16. First HD treatment 10/09/16. Recommendations CHRONIC KIDNEY DISEASE: -- ESRD requiring dialysis for volume control and clearance -- Decrease furosemide to 80 mg BID -- Tolerating dialysis well, will evaluate for next treatment tomorrow -- Vascular surgery for AVF placement -- Protect L arm for vascular access -- Stop oral NaHCO3 -- Discussed plan of care with Dr. Carbajal today HYPERTENSION: -- Continue Hydralazine, Lasix and Metoprolol for BP management ANEMIA: -- IV iron has been prescribed -- Procrit 4000 QHD, hold for Hgb >11 BONE & MINERAL METABOLISM: -- Calcitriol therapy has been started OTHER: -- None
[2016-10-11] MEDS: FUROSEMIDE INJ 120 MG in SYRINGE 0 ML IV SCH ×2 (12:00→21:31)
--- NOTE | 2016-10-11 16:51 | Progress Note ---
Progress Note Date of Service Oct 11, 2016. Progress Note Pt procedure rescheduled to Friday morning, d/t unforeseen delays in OR today. Pt aware and agreeable.
--- NOTE | 2016-10-11 17:37 | Progress Note ---
Subjective Date of Service: Oct 11, 2016. Subjective Pt is about the same receiving dialysis, chemistry shows no change in Cr Problem List Medical Problems: (1) CHF exacerbation Status: Acute Review of Systems Constitutional: + fatigue, + weakness, No chills, No fever Eyes: No eye pain, No worsening of vision Neurologic: + weakness, No memory loss Psychiatric: No anhedonism, No anxiety, No depression symptoms Skin: No new/changing skin lesions, No rash Objective Vital Signs Date Time Temp Pulse Resp B/P Pulse Ox O2 Delivery O2 Flow Rate FiO2 10/11/16 06:33 36.6 60 18 172/81 97 Room Air 10/11/16 00:25 71 147/81 10/10/16 23:20 Room Air 10/10/16 23:18 36.5 62 16 168/80 95 Room Air 10/10/16 16:21 94 Room Air 10/10/16 15:20 36.4 65 18 146/78 94 Room Air 10/10/16 14:32 71 182/80 10/10/16 13:23 36.7 71 17 169/80 95 Room Air 10/10/16 13:00 36.7 60 214/97 10/10/16 12:30 57 205/95 10/10/16 12:15 58 203/91 10/10/16 12:00 59 206/97 10/10/16 11:45 59 190/92 10/10/16 11:30 59 208/94 10/10/16 11:15 63 209/101 10/10/16 11:00 57 212/92 10/10/16 10:45 60 199/95 10/10/16 10:30 56 195/91 10/10/16 10:15 57 197/92 10/10/16 10:00 62 204/86 10/10/16 09:45 64 212/92 10/10/16 09:40 37.2 65 209/93 10/10/16 07:51 36.6 66 21 177/77 93 Room Air Physical Exam General Appearance: + mild distress, + obese Eyes: PERRL, EOMI Neck: supple, trachea midline Neurologic/Psychiatric: alert, oriented x 3 Skin: normal color, warm/dry, no rash Assessment and Plan ESRD - hypertensive renal disease with non compliance - for HD daily until nephrology feels we have made progress with off loading fluid, has not been weighed except for bedscale will attempt standing weights acute on chronic grade 2 diastolic CHF exacerbation upon admission -- volume overload due to renal failure, continue dialysis to remove fluid Elevated troponin upon admission, likely because of mismatch and demanding ischemia, and ESRD making for poor clearance. no evidence of acs Bilateral lower extremity cellulitis stable and improved off abx Morbid obesity type 2 diabetes, A1c 6.7 - diet controlled Significant vitamin D deficiency, start vitamin D replacement 50,000 unit by mouth every week any time 6 week, and then 1000 unit by mouth daily DVT proph - heparin SQ will need some means to support dialysis via insurance, case management to assist.
[2016-10-12] VITALS (19 sets, daily range): BP systolic 121–210; BP diastolic 57–101; PULSE 55–68; TEMP 36.5–37; O2SAT 92–95
--- NOTE | 2016-10-12 08:13 | Progress Note ---
Subjective Date of Service: Oct 12, 2016. Subjective no new issues still volume overloaded Problem List Medical Problems: (1) CHF exacerbation Status: Acute Review of Systems Constitutional: No chills, No fever Respiratory: No cough, No dyspnea on exertion, No shortness of breath Cardiac: + edema, No chest pain Abdomen: No diarrhea, No nausea, No pain, No vomiting Objective Vital Signs Date Time Temp Pulse Resp B/P Pulse Ox O2 Delivery O2 Flow Rate FiO2 10/12/16 07:54 36.8 64 16 174/84 95 Room Air 10/12/16 00:20 Room Air 10/11/16 23:00 36.8 65 18 150/71 91 Room Air 10/11/16 21:21 36.5 71 20 181/73 95 Room Air 10/11/16 15:45 Room Air 10/11/16 15:20 36.4 64 18 185/83 95 Room Air 10/11/16 11:43 36.6 67 162/79 10/11/16 11:15 65 163/80 10/11/16 11:00 66 171/78 10/11/16 10:45 66 158/79 10/11/16 10:30 65 161/79 10/11/16 10:15 66 159/77 10/11/16 10:00 67 158/80 10/11/16 09:45 61 160/78 10/11/16 09:30 50 168/78 10/11/16 09:15 59 162/82 10/11/16 09:00 60 160/81 10/11/16 08:45 59 206/97 10/11/16 08:25 59 170/78 10/11/16 08:20 36.4 61 159/78 Physical Exam General Appearance: WD/WN, + mild distress, + obese Respiratory/Chest: chest non-tender, + decreased breath sounds Cardiovascular: regular rate, rhythm, no murmur Abdomen: normal bowel sounds, non tender, soft Extremities: + pedal edema, + swelling Laboratory Results Last 24 Hours Test 10/11/16 11:59 Bedside Glucose 82 mg/dl Assessment and Plan ESRD - hypertensive renal disease with non compliance - for HD daily until nephrology feels we have made progress with off loading fluid, has not been weighed except for bedscale will attempt standing weights no recent changes, acute on chronic grade 2 diastolic CHF exacerbation upon admission -- volume overload due to renal failure, continue dialysis to remove fluid Elevated troponin upon admission, likely because of mismatch and demanding ischemia, and ESRD making for poor clearance. no evidence of acs Bilateral lower extremity cellulitis stable and improved off abx Morbid obesity type 2 diabetes, A1c 6.7 - diet controlled Significant vitamin D deficiency, start vitamin D replacement 50,000 unit by mouth every week any time 6 week, and then 1000 unit by mouth daily DVT proph - heparin SQ will need some means to support dialysis via insurance, case management to assist.
[2016-10-12] MEDS: CALCITRIOL 0.25 MCG CAP PO SCH (09:25)
[2016-10-12] MEDS: DOCUSATE SODIUM 100 MG CAP PO SCH ×2 (09:25→21:00)
[2016-10-12] MEDS: NEPHROCAPS PO SCH (09:25)
[2016-10-12] MEDS: FUROSEMIDE INJ 120 MG in SYRINGE 0 ML IV SCH (09:26)
[2016-10-12] MEDS: METOPROLOL TARTRATE 50 MG TAB PO SCH ×2 (09:26→21:41)
[2016-10-12] MEDS: METOPROLOL TARTRATE 100 MG TAB PO SCH ×2 (09:26→21:41)
[2016-10-12] MEDS: HEPARIN SOD 5000 UNIT/0.5 ML CARP SQ SCH ×2 (09:34→21:37)
--- NOTE | 2016-10-12 11:23 | Nephrology Progress Note ---
Nephrology Progress Note Date of Service Oct 12, 2016. Chief Complaint STEVE/CKD Subjective No acute events overnight. No complaints this morning. Tolerated HD yesterday , UF 4 kg. Denies shortness of breath. Edema improving. Appetite good. Review of Systems A complete review of systems was performed. Pertinent positives are noted above. All other systems are negative. Vital Signs Last 8 Hrs Date Time Temp Pulse Resp B/P Pulse Ox O2 Delivery O2 Flow Rate FiO2 10/12/16 09:44 95 Room Air 10/12/16 09:30 68 156/68 10/12/16 07:54 36.8 64 16 174/84 95 Room Air I & O 24-Hour Column 10/12/16 08:00 Intake Total 500 ml Output Total 4200 ml Balance -3700 ml Last Recorded Weight Weight (Kilograms): 185.500 Physical Exam General Appearance: no apparent distress, + obese Head: normocephalic, atraumatic Eyes: normal inspection, sclerae normal ENT: normal ENT inspection, pharynx normal Neck: supple, + pertinent finding ([facility] HD permcath) Respiratory/Chest: lungs clear, no accessory muscle use, + decreased breath sounds Cardiovascular: regular rate, rhythm, no gallop, no murmur Abdomen/GI: non tender, soft Extremities/Musculoskelatal: normal inspection, + pedal edema (+4 pitting BL LE edema, multiple superficial ulcers on feet) Neurologic/Psych: alert, normal mood/affect Family History Cancer Diabetes mellitus Heart disease Hypertension Kidney disease Kidney stones Lung disease Social History Smokeless Tobacco Use: No Drug Use: none Occupation: employed Laboratory Results Past 24 Hours Test 10/11/16 11:59 10/12/16 07:29 Bedside Glucose 82 mg/dl (70-99) 96 mg/dl (70-99) Allergies Coded Allergies: No Known Allergies (Unverified , 09/30/16) Medications Current Inpatient Medications Medications (Trade) Dose Ordered Sig/Chavez Route Start Time Stop Time Status Last Admin Dose Admin Acetaminophen (Tylenol Tab) 650 mg Q4H PRN PO 09/30/16 19:15 10/30/16 19:14 10/11/16 03:17 650 MG Zolpidem Tartrate (Ambien Tab) 5 mg HSZ PRN PO 09/30/16 19:15 10/30/16 19:14 Ondansetron HCl (Zofran Inj) 4 mg Q6H PRN IV 09/30/16 19:30 10/30/16 19:29 Glucose (Glucose 40% Gel) UD PRN PO 09/30/16 19:30 10/30/16 19:29 Glucose (Glucose Chew Tab) 1 tabs UD PRN PO 09/30/16 19:30 10/30/16 19:29 Dextrose (Dextrose 50% 50ML Syringe) 50 ml UD PRN IV 09/30/16 19:30 10/30/16 19:29 Glucagon (Glucagon Inj) 1 mg UD PRN SQ 09/30/16 19:30 10/30/16 19:29 Hydralazine HCl (HydrALAZINE INJ) 10 mg Q4H PRN IV. 09/30/16 19:45 10/30/16 19:44 10/10/16 14:33 10 MG Miconazole Nitrate (Desenex Powder) 1 appln QS PRN EXT 10/01/16 20:45 10/31/16 20:44 10/10/16 07:30 1 APPLN Calcitriol (Rocaltrol Cap) 0.25 mcg QAM PO 10/03/16 09:00 11/02/16 08:59 10/12/16 09:25 0.25 MCG Ergocalciferol (Vitamin D Cap) 50,000 interunit Q7D PO 10/03/16 09:00 12/19/16 09:01 10/10/16 13:26 50,000 INTERUNIT Metoprolol Tartrate (Lopressor Tab) 100 mg BID PO 10/04/16 21:00 11/03/16 20:59 10/12/16 09:26 100 MG Docusate Sodium (coLACE CAP) 100 mg BID PO 10/05/16 21:00 11/04/16 20:59 10/12/16 09:25 100 MG Polyethylene 17 gm 17 gm DAILY PRN PO 10/05/16 09:15 11/04/16 09:14 Furosemide/Syringe (Lasix Inj/ Syringe) 12 ml @ 4 mls/min BID IV 10/06/16 21:00 11/05/16 20:59 10/12/16 09:26 4 MLS/MIN Vitamin B Complex/ Vit C/Folic Acid (Nephrocaps) 1 cap QAM PO 10/07/16 09:00 11/06/16 08:59 10/12/16 09:25 1 CAP Hydralazine HCl (Apresoline Tab) 75 mg 3XDQ4 PO 10/07/16 12:00 11/06/16 11:59 10/12/16 07:52 75 MG Heparin Sodium (Porcine) (Heparin Sq 5000 Unit/0.5ml) 5,000 unit Q12 SQ 10/07/16 21:00 11/06/16 20:59 Future hold 10/12/16 09:34 5,000 UNIT Metoprolol Tartrate (Lopressor Tab) 50 mg BID PO 10/10/16 21:00 11/09/16 20:59 10/12/16 09:26 50 MG Impression (1) STEVE (acute kidney injury) (2) Metabolic acidosis (3) Hypertension (4) Anemia (5) Bilateral lower leg cellulitis (6) Anasarca (7) Secondary hyperparathyroidism of renal origin (8) Nephrotic syndrome Michael is a 56 year old male w/ HTN, T2DM and morbid obesity (BMI 61). He was admitted to the hospital with bilateral lower extremity cellulitis and anasarca. His lower extremity wound culture was positive for MSSA. Blood culture was negative. He has nephrotic range proteinuria, small kidneys w/ cortical thinning on US. Clinical presentation consistent with advanced CKD progression to ESRD requiring dialysis for volume management and clearance. Right IJ HD permcath placed 10/08/16. First HD treatment 10/09/16. Recommendations CHRONIC KIDNEY DISEASE: -- Plan HD today -- Continue furosemide to encourage UOP -- Vascular surgery for AVF placement potentially as inpatient next week -- Protect L arm for vascular access HYPERTENSION: -- Continue Hydralazine, Lasix and Metoprolol for BP management ANEMIA: -- IV iron completed -- Procrit 4000 QHD MWF, hold for Hgb >11 BONE & MINERAL METABOLISM: -- Calcitriol therapy has been started OTHER: -- None
[2016-10-12] MEDS: HydrALAZINE HCL 20 MG/ML VIAL IV. PRN (14:26)
[2016-10-12] MEDS: FUROSEMIDE INJ 80 MG in SYRINGE 0 ML IV SCH (21:40)
[2016-10-13 06:57] LABS: HEMATOCRIT 36.4 % (42-52); MEAN CELL VOLUME 84.1 fL (80-100); MEAN CORPUSCULAR HEMOGLOBIN 25.9 pg (25-34); MEAN CORPUSCULAR HGB CONC 30.8 g/dl (32-36); MEAN PLATELET VOLUME 10.2 fL (7.4-10.4); PLATELET COUNT 208 K/uL (130-400); RED BLOOD COUNT 4.33 M/uL (4.7-6.1); WHITE BLOOD COUNT 5.34 K/uL (4.8-10.8)
[2016-10-13 07:19] VITALS: BP 186/77; PULSE 59; TEMP 36.7; O2SAT 93
[2016-10-13 07:29] LABS: BUN/CREATININE RATIO 8.6 (10-20); CALCIUM 8.4 mg/dl (8.5-10.1); CREATININE 3.5 mg/dl (0.60-1.40); POTASSIUM 3.7 mmol/L (3.5-5.1)
[2016-10-13 07:30] LABS: PHOSPHORUS 3.3 mg/dl (2.5-4.9)
[2016-10-13] MEDS: METOPROLOL TARTRATE 50 MG TAB PO SCH ×2 (07:36→21:42)
[2016-10-13] MEDS: METOPROLOL TARTRATE 100 MG TAB PO SCH ×2 (07:36→21:41)
[2016-10-13] MEDS: CALCITRIOL 0.25 MCG CAP PO SCH (07:37)
[2016-10-13] MEDS: DOCUSATE SODIUM 100 MG CAP PO SCH ×3 (07:37→21:40)
[2016-10-13] MEDS: NEPHROCAPS PO SCH (07:37)
[2016-10-13 09:21] VITALS: BP 148/71; PULSE 63
[2016-10-13] MEDS: FUROSEMIDE INJ 80 MG in SYRINGE 0 ML IV SCH ×3 (09:21→21:40)
[2016-10-13] MEDS: HEPARIN SOD 5000 UNIT/0.5 ML CARP SQ SCH ×2 (09:22→21:39)
--- NOTE | 2016-10-13 12:19 | Nephrology Progress Note ---
Nephrology Progress Note Date of Service Oct 13, 2016. Chief Complaint STEVE/CKD Subjective No acute events overnight. Tolerated HD yesterday, UF additional 3 kg. Mr. Quinonez feels well this morning. He reports improvement in edema. He denies shortness of breath. Review of Systems A complete review of systems was performed. Pertinent positives are noted above. All other systems are negative. Vital Signs Last 8 Hrs Date Time Temp Pulse Resp B/P Pulse Ox O2 Delivery O2 Flow Rate FiO2 10/13/16 09:47 Room Air 10/13/16 09:21 63 148/71 10/13/16 07:19 36.7 59 16 186/77 93 Room Air I & O 24-Hour Column 10/13/16 07:59 Intake Total 865 ml Output Total 3000 ml Balance -2135 ml Last Recorded Weight Weight (Kilograms): 181.600 Physical Exam General Appearance: no apparent distress, + obese Head: normocephalic, atraumatic Eyes: normal inspection, sclerae normal ENT: normal ENT inspection, pharynx normal Neck: supple, + pertinent finding (thick, RIJ HD permcath intact) Respiratory/Chest: lungs clear, no respiratory distress, no accessory muscle use Cardiovascular: regular rate, rhythm, no murmur Abdomen/GI: non tender, soft Extremities/Musculoskelatal: normal inspection, + pedal edema (generalized) Neurologic/Psych: alert, oriented x 3 Family History Cancer Diabetes mellitus Heart disease Hypertension Kidney disease Kidney stones Lung disease Social History Smokeless Tobacco Use: No Drug Use: none Occupation: employed Laboratory Results Past 24 Hours 10/13/16 06:30 10/13/16 06:30 Test 10/12/16 16:57 10/13/16 06:30 10/13/16 08:07 10/13/16 11:51 Bedside Glucose 105 mg/dl (70-99) 105 mg/dl (70-99) 104 mg/dl (70-99) Red Blood Count 4.33 M/uL (4.7-6.1) Mean Corpuscular Volume 84.1 fL (80-100) Mean Corpuscular Hemoglobin 25.9 pg (25-34) Mean Corpuscular Hemoglobin Concent 30.8 g/dl (32-36) RDW Standard Deviation 57.8 fL (36.4-46.3) RDW Coefficient of Variation 19.0 % (11.5-14.5) Mean Platelet Volume 10.2 fL (7.4-10.4) Anion Gap 10.0 mmol/L (3-11) Est Creatinine Clear Calc Drug Dose 40.7 ml/min Estimated GFR () 21.7 Estimated GFR (Non- 18.7 BUN/Creatinine Ratio 8.6 (10-20) Calcium Level 8.4 mg/dl (8.5-10.1) Phosphorus Level 3.3 mg/dl (2.5-4.9) Albumin 2.5 gm/dl (3.4-5.0) Allergies Coded Allergies: No Known Allergies (Unverified , 09/30/16) Medications Current Inpatient Medications Medications (Trade) Dose Ordered Sig/Chavez Route Start Time Stop Time Status Last Admin Dose Admin Acetaminophen (Tylenol Tab) 650 mg Q4H PRN PO 09/30/16 19:15 10/30/16 19:14 10/11/16 03:17 650 MG Zolpidem Tartrate (Ambien Tab) 5 mg HSZ PRN PO 09/30/16 19:15 10/30/16 19:14 Ondansetron HCl (Zofran Inj) 4 mg Q6H PRN IV 09/30/16 19:30 10/30/16 19:29 Glucose (Glucose 40% Gel) UD PRN PO 09/30/16 19:30 10/30/16 19:29 Glucose (Glucose Chew Tab) 1 tabs UD PRN PO 09/30/16 19:30 10/30/16 19:29 Dextrose (Dextrose 50% 50ML Syringe) 50 ml UD PRN IV 09/30/16 19:30 10/30/16 19:29 Glucagon (Glucagon Inj) 1 mg UD PRN SQ 09/30/16 19:30 10/30/16 19:29 Hydralazine HCl (HydrALAZINE INJ) 10 mg Q4H PRN IV. 09/30/16 19:45 10/30/16 19:44 10/12/16 14:26 10 MG Miconazole Nitrate (Desenex Powder) 1 appln QS PRN EXT 10/01/16 20:45 10/31/16 20:44 10/10/16 07:30 1 APPLN Calcitriol (Rocaltrol Cap) 0.25 mcg QAM PO 10/03/16 09:00 11/02/16 08:59 10/13/16 07:37 0.25 MCG Ergocalciferol (Vitamin D Cap) 50,000 interunit Q7D PO 10/03/16 09:00 12/19/16 09:01 10/10/16 13:26 50,000 INTERUNIT Metoprolol Tartrate (Lopressor Tab) 100 mg BID PO 10/04/16 21:00 11/03/16 20:59 10/13/16 07:36 100 MG Docusate Sodium (coLACE CAP) 100 mg BID PO 10/05/16 21:00 11/04/16 20:59 10/12/16 09:25 100 MG Polyethylene (Miralax Powder Packet) 17 gm DAILY PRN PO 10/05/16 09:15 11/04/16 09:14 Vitamin B Complex/ Vit C/Folic Acid (Nephrocaps) 1 cap QAM PO 10/07/16 09:00 11/06/16 08:59 10/13/16 07:37 1 CAP Hydralazine HCl (Apresoline Tab) 75 mg 3XDQ4 PO 10/07/16 12:00 11/06/16 11:59 10/13/16 07:37 75 MG Heparin Sodium (Porcine) (Heparin Sq 5000 Unit/0.5ml) 5,000 unit Q12 SQ 10/07/16 21:00 11/06/16 20:59 Future hold 10/13/16 09:22 5,000 UNIT Metoprolol Tartrate 50 mg 50 mg BID PO 10/10/16 21:00 11/09/16 20:59 10/13/16 07:36 50 MG Furosemide/Syringe (Lasix Inj/ Syringe) 8 ml @ 4 mls/min BID IV 10/12/16 21:00 11/11/16 20:59 10/13/16 09:57 4 MLS/MIN Impression (1) STEVE (acute kidney injury) (2) Metabolic acidosis (3) Hypertension (4) Anemia (5) Bilateral lower leg cellulitis (6) Anasarca (7) Secondary hyperparathyroidism of renal origin (8) Nephrotic syndrome Michael is a 56 year old male w/ HTN, T2DM and morbid obesity (BMI 61). He was admitted to the hospital with bilateral lower extremity cellulitis and anasarca. His lower extremity wound culture was positive for MSSA. Blood culture was negative. He has nephrotic range proteinuria, small kidneys w/ cortical thinning on US. Clinical presentation consistent with advanced CKD progression to ESRD requiring dialysis for volume management and clearance. Right IJ HD permcath placed 10/08/16. First HD treatment 10/09/16. Recommendations CHRONIC KIDNEY DISEASE: -- Plan next HD treatment tomorrow -- Continue furosemide to encourage UOP -- Vascular surgery for AVF placement -- Protect L arm for vascular access HYPERTENSION: -- Continue Hydralazine, Lasix and Metoprolol for BP management -- Increase hydralazine to 100 mg for hypertension -- Anticipate blood pressure to continue to improve as volume status improves ANEMIA: -- IV iron completed -- Procrit held for Hgb >11 BONE & MINERAL METABOLISM: -- Calcitriol therapy has been started
[2016-10-13 12:33] VITALS: BP 180/84; PULSE 65
--- NOTE | 2016-10-13 14:46 | Progress Note ---
Subjective Date of Service: Oct 13, 2016. Subjective pt has no complaints, awaiting AV fistulae, [facility] Problem List Medical Problems: (1) CHF exacerbation Status: Acute Review of Systems Constitutional: No chills, No fever, No weakness Respiratory: + dyspnea on exertion, + shortness of breath, No cough, No sputum Cardiac: + edema, No chest pain Abdomen: No diarrhea, No nausea, No pain, No vomiting Male : No dysuria, No urinary frequency Neurologic: No memory loss, No weakness Psychiatric: + anxiety, + depression symptoms Objective Vital Signs Date Time Temp Pulse Resp B/P Pulse Ox O2 Delivery O2 Flow Rate FiO2 10/13/16 12:33 65 180/84 10/13/16 09:47 Room Air 10/13/16 09:21 63 148/71 10/13/16 07:19 36.7 59 16 186/77 93 Room Air 10/12/16 23:38 Room Air 10/12/16 23:30 36.7 63 18 154/66 93 Room Air 10/12/16 15:30 Room Air 10/12/16 15:25 37.0 63 16 210/98 92 Room Air 121/57 10/12/16 14:59 63 146/63 Physical Exam General Appearance: WD/WN, + mild distress, + obese Neck: supple, no JVD Respiratory/Chest: chest non-tender, + decreased breath sounds, + accessory muscle use Cardiovascular: regular rate, rhythm, no murmur Abdomen: normal bowel sounds, non tender, soft Extremities: + pedal edema Neurologic/Psychiatric: alert, oriented x 3 Laboratory Results Last 24 Hours Test 10/12/16 16:57 10/13/16 06:30 10/13/16 08:07 10/13/16 11:51 Bedside Glucose 105 mg/dl 105 mg/dl 104 mg/dl White Blood Count 5.34 K/uL Red Blood Count 4.33 M/uL Hemoglobin 11.2 g/dL Hematocrit 36.4 % Mean Corpuscular Volume 84.1 fL Mean Corpuscular Hemoglobin 25.9 pg Mean Corpuscular Hemoglobin Concent 30.8 g/dl RDW Standard Deviation 57.8 fL RDW Coefficient of Variation 19.0 % Platelet Count 208 K/uL Mean Platelet Volume 10.2 fL Sodium Level 140 mmol/L Potassium Level 3.7 mmol/L Chloride Level 103 mmol/L Carbon Dioxide Level 27 mmol/L Anion Gap 10.0 mmol/L Blood Urea Nitrogen 30 mg/dl Creatinine 3.50 mg/dl Est Creatinine Clear Calc Drug Dose 40.7 ml/min Estimated GFR () 21.7 Estimated GFR (Non- 18.7 BUN/Creatinine Ratio 8.6 Random Glucose 95 mg/dl Calcium Level 8.4 mg/dl Phosphorus Level 3.3 mg/dl Albumin 2.5 gm/dl Assessment and Plan ESRD - hypertensive renal disease with non compliance - for HD daily until nephrology feels we have made progress with off loading fluid, has not been weighed except for bedscale will attempt standing weights no recent changes, for AV Fistulae formation this week acute on chronic grade 2 diastolic CHF exacerbation upon admission -- volume overload due to renal failure, continue dialysis to remove fluid Elevated troponin upon admission, likely because of mismatch and demanding ischemia, and ESRD making for poor clearance. no evidence of acs Bilateral lower extremity cellulitis stable and improved off abx Morbid obesity type 2 diabetes, A1c 6.7 - diet controlled Significant vitamin D deficiency, start vitamin D replacement 50,000 unit by mouth every week any time 6 week, and then 1000 unit by mouth daily DVT proph - heparin SQ recommended podiatric foot care after discharge will need some means to support dialysis via insurance, case management to assist.
[2016-10-13 15:46] VITALS: BP 167/76; PULSE 66; TEMP 36.8; O2SAT 93
[2016-10-13 19:02] VITALS: BP 157/91; PULSE 68; TEMP 36.9; O2SAT 95
[2016-10-13] MEDS: HydrALAZINE HCL 20 MG/ML VIAL IV. PRN (19:37)
[2016-10-13 23:41] VITALS: BP 166/75; PULSE 69; TEMP 36.9; O2SAT 91
[2016-10-14] VITALS (20 sets, daily range): BP systolic 165–196; BP diastolic 75–84; PULSE 60–73; TEMP 36.8–36.9; O2SAT 91–94
[2016-10-14] MEDS: HydrALAZINE HCL 20 MG/ML VIAL IV. PRN ×4 (00:12→23:42)
[2016-10-14 06:23] LABS: BUN/CREATININE RATIO 8.5 (10-20); CREATININE 4.1 mg/dl (0.60-1.40); POTASSIUM 3.8 mmol/L (3.5-5.1)
[2016-10-14 06:24] LABS: PHOSPHORUS 3.8 mg/dl (2.5-4.9)
[2016-10-14] MEDS: FUROSEMIDE INJ 80 MG in SYRINGE 0 ML IV SCH ×2 (08:35→21:29)
[2016-10-14] MEDS: METOPROLOL TARTRATE 100 MG TAB PO SCH ×2 (08:36→21:26)
[2016-10-14] MEDS: METOPROLOL TARTRATE 50 MG TAB PO SCH ×2 (08:36→21:25)
[2016-10-14] MEDS: DOCUSATE SODIUM 100 MG CAP PO SCH ×2 (08:36→21:00)
[2016-10-14] MEDS: HEPARIN SOD 5000 UNIT/0.5 ML CARP SQ SCH ×2 (08:36→21:28)
[2016-10-14] MEDS: CALCITRIOL 0.25 MCG CAP PO SCH (08:36)
[2016-10-14] MEDS: NEPHROCAPS PO SCH (08:36)
[2016-10-14] MEDS ORDERED: HEPARIN SOD (PORCINE) 1000 UNIT/ML 10 ML VIAL IV SCH ×2 (09:00)
--- NOTE | 2016-10-14 10:13 | Nephrology Progress Note ---
Nephrology Progress Note Date of Service Oct 14, 2016. Chief Complaint Follow up evaluation of this patient admitted with advanced CKD and tense LE edema with cellulitis Subjective Mr. Quinonez was seen & examined in his hospital room this morning. Prior to this hospitalization he did not maintain regular medical follow up and had been out of his medications for a prolonged period of time. He was admitted with tense LE edema, weeping leg bullae and cellulitis. He presented with advanced CKD. He required initiation of HD 10/09/16. He reports that his cellulitis and leg edema are markedly improved. He is scheduled today for AVF creation. He voices no new medical concerns. Review of Systems Constitutional: No fever Cardiovascular: No chest pain Respiratory: No dyspnea at rest Abdomen: No nausea, No pain, No vomiting Extremities: No leg edema A complete review of systems was performed. Pertinent positives are noted above. All other systems are negative. Vital Signs Last 8 Hrs Date Time Temp Pulse Resp B/P Pulse Ox O2 Delivery O2 Flow Rate FiO2 10/14/16 07:59 36.9 70 16 187/80 91 Room Air 10/14/16 07:37 Room Air I & O 24-Hour Column 10/14/16 08:00 Intake Total 830 ml Balance 830 ml Last Recorded Weight Weight (Kilograms): 181.000 Physical Exam General Appearance: no apparent distress Head: atraumatic Eyes: PERRL, EOMI Neck: no adenopathy Respiratory/Chest: lungs clear, no respiratory distress Cardiovascular: regular rate, rhythm, no murmur Abdomen/GI: normal bowel sounds, non tender, soft Extremities/Musculoskelatal: no pedal edema, + pertinent finding (pretibial areas are wrapped. No erythema) Neurologic/Psych: alert, oriented x 3 Family History Cancer Diabetes mellitus Heart disease Hypertension Kidney disease Kidney stones Lung disease Social History Smokeless Tobacco Use: No Drug Use: none Occupation: employed Laboratory Results Past 24 Hours 10/14/16 05:24 Test 10/13/16 11:51 10/13/16 17:07 10/13/16 20:54 10/14/16 05:24 Bedside Glucose 104 mg/dl (70-99) 103 mg/dl (70-99) 115 mg/dl (70-99) Anion Gap 10.0 mmol/L (3-11) Est Creatinine Clear Calc Drug Dose 34.7 ml/min Estimated GFR () 17.9 Estimated GFR (Non- 15.4 BUN/Creatinine Ratio 8.5 (10-20) Calcium Level 8.0 mg/dl (8.5-10.1) Phosphorus Level 3.8 mg/dl (2.5-4.9) Albumin 2.5 gm/dl (3.4-5.0) Test 10/14/16 07:57 Bedside Glucose 107 mg/dl (70-99) Allergies Coded Allergies: No Known Allergies (Unverified , 09/30/16) Medications Current Inpatient Medications Medications (Trade) Dose Ordered Sig/Chavez Route Start Time Stop Time Status Last Admin Dose Admin Acetaminophen (Tylenol Tab) 650 mg Q4H PRN PO 09/30/16 19:15 10/30/16 19:14 10/11/16 03:17 650 MG Zolpidem Tartrate (Ambien Tab) 5 mg HSZ PRN PO 09/30/16 19:15 10/30/16 19:14 Ondansetron HCl (Zofran Inj) 4 mg Q6H PRN IV 09/30/16 19:30 10/30/16 19:29 Glucose (Glucose 40% Gel) UD PRN PO 09/30/16 19:30 10/30/16 19:29 Glucose (Glucose Chew Tab) 1 tabs UD PRN PO 09/30/16 19:30 10/30/16 19:29 Dextrose (Dextrose 50% 50ML Syringe) 50 ml UD PRN IV 09/30/16 19:30 10/30/16 19:29 Glucagon (Glucagon Inj) 1 mg UD PRN SQ 09/30/16 19:30 10/30/16 19:29 Hydralazine HCl (HydrALAZINE INJ) 10 mg Q4H PRN IV. 09/30/16 19:45 10/30/16 19:44 10/14/16 08:36 10 MG Miconazole Nitrate (Desenex Powder) 1 appln QS PRN EXT 10/01/16 20:45 10/31/16 20:44 10/10/16 07:30 1 APPLN Calcitriol (Rocaltrol Cap) 0.25 mcg QAM PO 10/03/16 09:00 11/02/16 08:59 10/13/16 07:37 0.25 MCG Ergocalciferol (Vitamin D Cap) 50,000 interunit Q7D PO 10/03/16 09:00 12/19/16 09:01 10/10/16 13:26 50,000 INTERUNIT Metoprolol Tartrate (Lopressor Tab) 100 mg BID PO 10/04/16 21:00 11/03/16 20:59 10/13/16 21:41 100 MG Docusate Sodium (coLACE CAP) 100 mg BID PO 10/05/16 21:00 11/04/16 20:59 10/12/16 09:25 100 MG Polyethylene (Miralax Powder Packet) 17 gm DAILY PRN PO 10/05/16 09:15 11/04/16 09:14 Vitamin B Complex/ Vit C/Folic Acid (Nephrocaps) 1 cap QAM PO 10/07/16 09:00 11/06/16 08:59 10/13/16 07:37 1 CAP Heparin Sodium (Porcine) (Heparin Sq 5000 Unit/0.5ml) 5,000 unit Q12 SQ 10/07/16 21:00 11/06/16 20:59 Future hold 10/13/16 21:39 5,000 UNIT Metoprolol Tartrate 50 mg 50 mg BID PO 10/10/16 21:00 11/09/16 20:59 10/13/16 21:42 50 MG Furosemide/Syringe (Lasix Inj/ Syringe) 8 ml @ 4 mls/min BID IV 10/12/16 21:00 11/11/16 20:59 10/14/16 08:35 4 MLS/MIN Hydralazine HCl (Apresoline Tab) 100 mg 3XDQ4 PO 10/13/16 16:00 11/12/16 15:59 10/13/16 16:22 100 MG Heparin Sodium (Porcine) (Heparin Iv Bolus) 1,000 unit Q1H IV 10/14/16 09:00 10/14/16 11:01 Impression (1) STEVE (acute kidney injury) (2) Metabolic acidosis (3) Hypertension (4) Anemia (5) Bilateral lower leg cellulitis (6) Anasarca (7) Secondary hyperparathyroidism of renal origin (8) Nephrotic syndrome Michael is a 56 year old male w/ HTN, T2DM and morbid obesity (BMI 61). He was admitted to the hospital with bilateral lower extremity cellulitis and anasarca. His lower extremity wound culture was positive for MSSA. Blood culture was negative. He has nephrotic range proteinuria, small kidneys w/ cortical thinning on US. Clinical presentation consistent with advanced CKD progression to ESRD requiring dialysis for volume management and clearance. Right IJ HD permcath placed 10/08/16. First HD treatment 10/09/16. Recommendations END STAGE RENAL DISEASE: -- HD today. Will coordinate w/ OR schedule. Orders reviewed. HD RN notified -- L arm AVF today as per vascular surgery -- Social service is assisting w/ setting up outpatient HD at [facility] -- Continue furosemide to encourage UOP (patient still makes urine) HYPERTENSION: -- Continue Hydralazine, Lasix and Metoprolol for BP management ANEMIA: -- IV iron completed -- Procrit held for Hgb >11 BONE & MINERAL METABOLISM: -- Calcitriol therapy has been started -- Patient is being given Ergocalciferol to replete Vitamin D2 stores
--- NOTE | 2016-10-14 11:59 | DIAGNOSTIC IMAGING REPORT ---
BILATERAL ANKLE TO BRACHIAL INDICES CLINICAL HISTORY: Bilateral lower extremity ulcers. Peripheral vascular disease. COMPARISON STUDY: No previous studies for comparison. FINDINGS: The right ankle to brachial index measured 0.77 when using the dorsalis pedis. Posterior tibial artery on the right was noncompressible. The left ankle to brachial index measured 0.88 when using posterior tibial artery and 0.76 when using the dorsalis pedis. IMPRESSION: Right ankle to brachial index of 0.77 and left ankle to brachial index of 0.88. Electronically signed by: Andres Overton M.D. 10/14/2016 11:58 AM Dictated Date/Time: 10/14/2016 11:48 AM
--- NOTE | 2016-10-14 16:31 | Progress Note ---
Subjective Date of Service: Oct 14, 2016. Subjective Pt evaluation today including: conversation w/ patient, physical exam, chart review, lab review Problem List Medical Problems: (1) CHF exacerbation Status: Acute Review of Systems Constitutional: No chills, No fatigue, No fever, No problem reported, No see HPI, No sweats, No weakness, No weight loss Eyes: No diplopia, No discharge, No eye pain, No problem reported, No redness, No see HPI, No worsening of vision ENT: No dental problems, No hearing loss, No nasal symptoms, No problem reported, No see HPI, No sore throat, No tinnitus, No trouble swallowing, No unusual epistaxis Respiratory: No cough, No dyspnea at rest, No dyspnea on exertion, No hemoptysis, No problem reported, No see HPI, No shortness of breath, No sputum, No wheezing Cardiac: No PND, No chest pain, No claudication, No edema, No orthopnea, No palpitations, No problem reported, No see HPI Abdomen: No GI bleeding, No constipation, No diarrhea, No nausea, No pain, No problem reported, No see HPI, No vomiting Musculoskeletal: No calf pain, No joint pain, No muscle pain, No problem reported, No see HPI, No swelling Male : No dysuria, No hematuria, No incontinence, No nocturia more than once/ night, No problem reported, No see HPI, No sexual dysfunction, No slowing stream , No urinary frequency Psychiatric: No anhedonism, No anxiety, No depression symptoms, No insomnia, No problem reported, No see HPI, No substance abuse Endo: No excessive thirst, No excessive urination, No fatigue, No problem reported, No see HPI Skin: No bleeding, No color change, No itch, No new/changing skin lesions, No problem reported, No rash, No see HPI Medications Current Inpatient Medications Medications (Trade) Dose Ordered Sig/Chavez Route Start Time Stop Time Status Last Admin Dose Admin Acetaminophen (Tylenol Tab) 650 mg Q4H PRN PO 09/30/16 19:15 10/30/16 19:14 10/11/16 03:17 650 MG Zolpidem Tartrate (Ambien Tab) 5 mg HSZ PRN PO 09/30/16 19:15 10/30/16 19:14 Ondansetron HCl (Zofran Inj) 4 mg Q6H PRN IV 09/30/16 19:30 10/30/16 19:29 Glucose (Glucose 40% Gel) UD PRN PO 09/30/16 19:30 10/30/16 19:29 Glucose (Glucose Chew Tab) 1 tabs UD PRN PO 09/30/16 19:30 10/30/16 19:29 Dextrose (Dextrose 50% 50ML Syringe) 50 ml UD PRN IV 09/30/16 19:30 10/30/16 19:29 Glucagon (Glucagon Inj) 1 mg UD PRN SQ 09/30/16 19:30 10/30/16 19:29 Hydralazine HCl (HydrALAZINE INJ) 10 mg Q4H PRN IV. 09/30/16 19:45 10/30/16 19:44 10/14/16 08:36 10 MG Miconazole Nitrate (Desenex Powder) 1 appln QS PRN EXT 10/01/16 20:45 10/31/16 20:44 10/10/16 07:30 1 APPLN Calcitriol (Rocaltrol Cap) 0.25 mcg QAM PO 10/03/16 09:00 11/02/16 08:59 10/13/16 07:37 0.25 MCG Ergocalciferol (Vitamin D Cap) 50,000 interunit Q7D PO 10/03/16 09:00 12/19/16 09:01 10/10/16 13:26 50,000 INTERUNIT Metoprolol Tartrate (Lopressor Tab) 100 mg BID PO 10/04/16 21:00 11/03/16 20:59 10/13/16 21:41 100 MG Docusate Sodium (coLACE CAP) 100 mg BID PO 10/05/16 21:00 11/04/16 20:59 10/12/16 09:25 100 MG Polyethylene (Miralax Powder Packet) 17 gm DAILY PRN PO 10/05/16 09:15 11/04/16 09:14 Vitamin B Complex/ Vit C/Folic Acid (Nephrocaps) 1 cap QAM PO 10/07/16 09:00 11/06/16 08:59 10/13/16 07:37 1 CAP Heparin Sodium (Porcine) (Heparin Sq 5000 Unit/0.5ml) 5,000 unit Q12 SQ 10/07/16 21:00 11/06/16 20:59 Future hold 10/13/16 21:39 5,000 UNIT Metoprolol Tartrate 50 mg 50 mg BID PO 10/10/16 21:00 11/09/16 20:59 10/13/16 21:42 50 MG Furosemide/Syringe (Lasix Inj/ Syringe) 8 ml @ 4 mls/min BID IV 10/12/16 21:00 11/11/16 20:59 10/14/16 08:35 4 MLS/MIN Hydralazine HCl (Apresoline Tab) 100 mg 3XDQ4 PO 10/13/16 16:00 11/12/16 15:59 10/14/16 11:39 100 MG Objective Vital Signs Date Time Temp Pulse Resp B/P Pulse Ox O2 Delivery O2 Flow Rate FiO2 10/14/16 15:15 73 175/78 10/14/16 15:00 70 177/79 10/14/16 14:00 72 175/78 10/14/16 13:45 70 174/79 10/14/16 13:30 71 178/82 10/14/16 13:26 70 165/77 10/14/16 13:15 36.8 68 170/82 10/14/16 11:25 170/76 10/14/16 07:59 36.9 70 16 187/80 91 Room Air 10/14/16 07:37 Room Air 10/14/16 00:51 167/75 10/13/16 23:41 36.9 69 18 166/75 91 Room Air 10/13/16 23:40 Room Air 10/13/16 19:02 36.9 68 18 157/91 95 Room Air Physical Exam General Appearance: no apparent distress Eyes: normal inspection, EOMI ENT: normal ENT inspection, hearing grossly normal Neck: supple Respiratory/Chest: chest non-tender, lungs clear, normal breath sounds, no respiratory distress, no accessory muscle use Cardiovascular: regular rate, rhythm, no edema, no gallop, no JVD, no murmur Abdomen: normal bowel sounds, non tender, soft, no organomegaly, no pulsatile mass Extremities: normal range of motion, non-tender, normal inspection, no pedal edema, no calf tenderness, + pertinent finding (SENSATION DEMINISHED, MULTIPLE ULCERS, PULSATIONS ARE NOT PALPABLE EXCEPT BY DOPPLER) Neurologic/Psychiatric: belt sander II-XII nml as tested, no motor/sensory deficits, alert, normal mood/affect, oriented x 3 Skin: normal color, warm/dry, no rash Laboratory Results Last 24 Hours Test 10/13/16 17:07 10/13/16 20:54 10/14/16 05:24 10/14/16 07:57 Bedside Glucose 103 mg/dl 115 mg/dl 107 mg/dl Sodium Level 139 mmol/L Potassium Level 3.8 mmol/L Chloride Level 104 mmol/L Carbon Dioxide Level 25 mmol/L Anion Gap 10.0 mmol/L Blood Urea Nitrogen 35 mg/dl Creatinine 4.10 mg/dl Est Creatinine Clear Calc Drug Dose 34.7 ml/min Estimated GFR () 17.9 Estimated GFR (Non- 15.4 BUN/Creatinine Ratio 8.5 Random Glucose 116 mg/dl Calcium Level 8.0 mg/dl Phosphorus Level 3.8 mg/dl Albumin 2.5 gm/dl Test 10/14/16 11:24 Bedside Glucose 113 mg/dl Assessment and Plan ESRD going to OR for L arm AVF today as per vascular surgery as per tire spotter, HD today PVD, lower ext neuropathy, feet ulcers, ordered STEVE wound care acute on chronic grade 2 diastolic CHF exacerbation upon admission -- volume overload due to renal failure, continue dialysis to remove fluid HTN, Continue Hydralazine, Lasix and Metoprolol Anemia; likely of chronic diseases, giving IV iron completed , Procrit held for Hgb >11 as per tire spotter, also given Calcitriol therapy for bones metabolism Elevated troponin upon admission, likely because of mismatch and demanding ischemia, and ESRD making for poor clearance. no evidence of acs Bilateral lower extremity cellulitis stable and improved off abx Morbid obesity type 2 diabetes, A1c 6.7 - diet controlled Significant vitamin D deficiency, start vitamin D replacement 50,000 unit by mouth every week any time 6 week, and then 1000 unit by mouth daily
[2016-10-15 00:15] VITALS: BP 179/71
[2016-10-15 06:18] LABS: BASO % 0.6 %; BASO ABS # 0.03 K/uL (0-0.2); COMPLETE YES; EOS % 3.7 %; HEMATOCRIT 36.5 % (42-52); LYMPH % 21.2 %; LYMPH ABS # 1.02 K/uL (1.2-3.4); MEAN CELL VOLUME 85.3 fL (80-100); MEAN CORPUSCULAR HEMOGLOBIN 26.6 pg (25-34); MEAN CORPUSCULAR HGB CONC 31.2 g/dl (32-36); MEAN PLATELET VOLUME 11.3 fL (7.4-10.4); MONO % 17.3 %; NEUT % 57.2 %; PLATELET COUNT 214 K/uL (130-400); RED BLOOD COUNT 4.28 M/uL (4.7-6.1); WHITE BLOOD COUNT 4.81 K/uL (4.8-10.8)
[2016-10-15 06:51] LABS: BUN/CREATININE RATIO 8.5 (10-20); CALCIUM 8.4 mg/dl (8.5-10.1); CREATININE 3.3 mg/dl (0.60-1.40); MAGNESIUM 1.9 mg/dl (1.8-2.4); POTASSIUM 3.6 mmol/L (3.5-5.1)
[2016-10-15 07:00] LABS: ALB/GLOB RATIO 0.6 (0.9-2)
[2016-10-15 07:22] VITALS: BP 184/83; PULSE 65; TEMP 36.4; O2SAT 94
[2016-10-15] MEDS: METOPROLOL TARTRATE 100 MG TAB PO SCH ×2 (07:39→21:10)
[2016-10-15] MEDS: NEPHROCAPS PO SCH (07:39)
[2016-10-15] MEDS: DOCUSATE SODIUM 100 MG CAP PO SCH ×2 (07:39→21:00)
[2016-10-15] MEDS: METOPROLOL TARTRATE 50 MG TAB PO SCH ×2 (07:39→21:10)
[2016-10-15] MEDS: CALCITRIOL 0.25 MCG CAP PO SCH (07:40)
[2016-10-15] MEDS: FUROSEMIDE INJ 80 MG in SYRINGE 0 ML IV SCH ×2 (07:40→21:10)
[2016-10-15] MEDS: HEPARIN SOD 5000 UNIT/0.5 ML CARP SQ SCH ×2 (07:47→21:13)
[2016-10-15] MEDS: ACETAMINOPHEN 325 MG TAB PO PRN (07:51)
--- NOTE | 2016-10-15 08:17 | Nephrology Progress Note ---
Nephrology Progress Note Date of Service Oct 15, 2016. Chief Complaint Follow up evaluation of this patient admitted with advanced CKD and tense LE edema with cellulitis Subjective Mr. Quinonez was seen & examined in his hospital room this morning. Prior to this hospitalization he did not maintain regular medical follow up and had been out of his medications for a prolonged period of time. He was admitted with tense LE edema, weeping leg bullae and cellulitis. He presented with advanced CKD. He required initiation of HD 10/09/16. He reports that his cellulitis and leg edema are markedly improved. AVF creation was postponed yesterday. Mr. Quinonez voices no new medical concerns this morning. Review of Systems Constitutional: No fever Cardiovascular: No chest pain Respiratory: No dyspnea at rest Abdomen: No nausea, No pain, No vomiting Genitourinary - Male: No dysuria Extremities: No leg edema Integumentary: No rash A complete review of systems was performed. Pertinent positives are noted above. All other systems are negative. Vital Signs Last 8 Hrs Date Time Temp Pulse Resp B/P Pulse Ox O2 Delivery O2 Flow Rate FiO2 10/15/16 07:22 36.4 65 18 184/83 94 Room Air 10/15/16 07:14 Room Air I & O 24-Hour Column 10/15/16 08:00 Intake Total 240 ml Output Total 3000 ml Balance -2760 ml Last Recorded Weight Weight (Kilograms): 176.900 Physical Exam General Appearance: no apparent distress Head: normocephalic, atraumatic Eyes: PERRL, EOMI Neck: supple, no adenopathy Respiratory/Chest: lungs clear, no respiratory distress Cardiovascular: regular rate, rhythm Abdomen/GI: normal bowel sounds, non tender, soft Extremities/Musculoskelatal: no calf tenderness, no pedal edema Neurologic/Psych: alert, oriented x 3 Family History Cancer Diabetes mellitus Heart disease Hypertension Kidney disease Kidney stones Lung disease Social History Smokeless Tobacco Use: No Drug Use: none Occupation: employed Laboratory Results Past 24 Hours 10/15/16 05:20 Red Blood Count 4.28, Mean Corpuscular Volume 85.3, Mean Corpuscular Hemoglobin 26.6, Mean Corpuscular Hemoglobin Concent 31.2, Mean Platelet Volume 11.3, Neutrophils (%) (Auto) 57.2, Lymphocytes (%) (Auto) 21.2, Monocytes (%) (Auto) 17.3, Eosinophils (%) (Auto) 3.7, Basophils (%) (Auto) 0.6, Neutrophils # (Auto ) 2.75, Lymphocytes # (Auto) 1.02, Monocytes # (Auto) 0.83, Eosinophils # (Auto ) 0.18, Basophils # (Auto) 0.03 10/15/16 05:20 Test 10/14/16 11:24 10/15/16 05:20 Bedside Glucose 113 mg/dl (70-99) White Blood Count 4.81 K/uL (4.8-10.8) Red Blood Count 4.28 M/uL (4.7-6.1) Hemoglobin 11.4 g/dL (14.0-18.0) Hematocrit 36.5 % (42-52) Mean Corpuscular Volume 85.3 fL (80-100) Mean Corpuscular Hemoglobin 26.6 pg (25-34) Mean Corpuscular Hemoglobin Concent 31.2 g/dl (32-36) Platelet Count 214 K/uL (130-400) Mean Platelet Volume 11.3 fL (7.4-10.4) Neutrophils (%) (Auto) 57.2 % Lymphocytes (%) (Auto) 21.2 % Monocytes (%) (Auto) 17.3 % Eosinophils (%) (Auto) 3.7 % Basophils (%) (Auto) 0.6 % Neutrophils # (Auto) 2.75 K/uL (1.4-6.5) Lymphocytes # (Auto) 1.02 K/uL (1.2-3.4) Monocytes # (Auto) 0.83 K/uL (0.11-0.59) Eosinophils # (Auto) 0.18 K/uL (0-0.5) Basophils # (Auto) 0.03 K/uL (0-0.2) RDW Standard Deviation 59.4 fL (36.4-46.3) RDW Coefficient of Variation 19.2 % (11.5-14.5) Immature Granulocyte % (Auto) 0.0 % Immature Granulocyte # (Auto) 0.00 K/uL (0.00-0.02) Anion Gap 10.0 mmol/L (3-11) Est Creatinine Clear Calc Drug Dose 42.5 ml/min Estimated GFR () 23.2 Estimated GFR (Non- 20.1 BUN/Creatinine Ratio 8.5 (10-20) Calcium Level 8.4 mg/dl (8.5-10.1) Phosphorus Level 3.0 mg/dl (2.5-4.9) Magnesium Level 1.9 mg/dl (1.8-2.4) Total Bilirubin 0.9 mg/dl (0.2-1) Aspartate Amino Transf (AST/SGOT) 29 U/L (15-37) Alanine Aminotransferase (ALT/SGPT) 23 U/L (12-78) Alkaline Phosphatase 120 U/L (45-117) Total Protein 6.5 gm/dl (6.4-8.2) Albumin 2.5 gm/dl (3.4-5.0) Globulin 4.0 gm/dl (2.5-4.0) Albumin/Globulin Ratio 0.6 (0.9-2) Allergies Coded Allergies: No Known Allergies (Unverified , 09/30/16) Medications Current Inpatient Medications Medications (Trade) Dose Ordered Sig/Chavez Route Start Time Stop Time Status Last Admin Dose Admin Acetaminophen (Tylenol Tab) 650 mg Q4H PRN PO 09/30/16 19:15 10/30/16 19:14 10/15/16 07:51 650 MG Zolpidem Tartrate (Ambien Tab) 5 mg HSZ PRN PO 09/30/16 19:15 10/30/16 19:14 Ondansetron HCl (Zofran Inj) 4 mg Q6H PRN IV 09/30/16 19:30 10/30/16 19:29 Glucose (Glucose 40% Gel) UD PRN PO 09/30/16 19:30 10/30/16 19:29 Glucose (Glucose Chew Tab) 1 tabs UD PRN PO 09/30/16 19:30 10/30/16 19:29 Dextrose (Dextrose 50% 50ML Syringe) 50 ml UD PRN IV 09/30/16 19:30 10/30/16 19:29 Glucagon (Glucagon Inj) 1 mg UD PRN SQ 09/30/16 19:30 10/30/16 19:29 Hydralazine HCl (HydrALAZINE INJ) 10 mg Q4H PRN IV. 09/30/16 19:45 10/30/16 19:44 10/14/16 23:42 10 MG Miconazole Nitrate (Desenex Powder) 1 appln QS PRN EXT 10/01/16 20:45 10/31/16 20:44 10/10/16 07:30 1 APPLN Calcitriol (Rocaltrol Cap) 0.25 mcg QAM PO 10/03/16 09:00 11/02/16 08:59 10/15/16 07:40 0.25 MCG Ergocalciferol (Vitamin D Cap) 50,000 interunit Q7D PO 10/03/16 09:00 12/19/16 09:01 10/10/16 13:26 50,000 INTERUNIT Metoprolol Tartrate (Lopressor Tab) 100 mg BID PO 10/04/16 21:00 11/03/16 20:59 10/15/16 07:39 100 MG Docusate Sodium (coLACE CAP) 100 mg BID PO 10/05/16 21:00 11/04/16 20:59 10/15/16 07:39 100 MG Polyethylene (Miralax Powder Packet) 17 gm DAILY PRN PO 10/05/16 09:15 11/04/16 09:14 Vitamin B Complex/ Vit C/Folic Acid (Nephrocaps) 1 cap QAM PO 10/07/16 09:00 11/06/16 08:59 10/15/16 07:39 1 CAP Heparin Sodium (Porcine) (Heparin Sq 5000 Unit/0.5ml) 5,000 unit Q12 SQ 10/07/16 21:00 11/06/16 20:59 Future hold 10/15/16 07:47 5,000 UNIT Metoprolol Tartrate 50 mg 50 mg BID PO 10/10/16 21:00 11/09/16 20:59 10/15/16 07:39 50 MG Furosemide/Syringe (Lasix Inj/ Syringe) 8 ml @ 4 mls/min BID IV 10/12/16 21:00 11/11/16 20:59 10/15/16 07:40 4 MLS/MIN Hydralazine HCl (Apresoline Tab) 100 mg 3XDQ4 PO 10/13/16 16:00 11/12/16 15:59 10/15/16 07:40 100 MG Impression (1) STEVE (acute kidney injury) (2) Metabolic acidosis (3) Hypertension (4) Anemia (5) Bilateral lower leg cellulitis (6) Anasarca (7) Secondary hyperparathyroidism of renal origin (8) Nephrotic syndrome Mr. Quinonez is a 56 year old male w/ HTN, T2DM and morbid obesity (BMI 61). He was admitted to the hospital with bilateral lower extremity cellulitis and anasarca. His lower extremity wound culture was positive for MSSA. Blood culture was negative. He has nephrotic range proteinuria, small kidneys w/ cortical thinning on US. Clinical presentation consistent with advanced CKD progression to ESRD requiring dialysis for volume management and clearance. Right IJ HD permcath placed 10/08/16. First HD treatment 10/09/16. Recommendations END STAGE RENAL DISEASE: -- Volume status and electrolyte balance are acceptable at this time. Will schedule next HD for 10/16 and ask HD staff appraiser to coordinate with vascular surgery schedule -- L arm AVF as per vascular surgery 10/16 or 10/17 -- Social service is assisting w/ setting up outpatient HD at [facility] -- Continue furosemide to encourage UOP (patient still makes urine) HYPERTENSION: -- Continue Hydralazine, Lasix and Metoprolol for BP management ANEMIA: -- IV iron completed -- Procrit held for Hgb >11 BONE & MINERAL METABOLISM: -- Calcitriol therapy has been started -- Patient is being given Ergocalciferol to replete Vitamin D2 stores
[2016-10-15 13:36] VITALS: BP 168/71
[2016-10-15 15:06] VITALS: BP 171/75; PULSE 65; TEMP 36.6; O2SAT 93
--- NOTE | 2016-10-15 16:03 | Progress Note ---
Subjective Date of Service: Oct 15, 2016. Subjective Pt evaluation today including: conversation w/ patient, physical exam, chart review, lab review, review of inpatient medication list Problem List Medical Problems: (1) CHF exacerbation Status: Acute Review of Systems Constitutional: No chills, No fatigue, No fever, No problem reported, No see HPI, No sweats, No weakness, No weight loss Eyes: No diplopia, No discharge, No eye pain, No problem reported, No redness, No see HPI, No worsening of vision ENT: No dental problems, No hearing loss, No nasal symptoms, No problem reported, No see HPI, No sore throat, No tinnitus, No trouble swallowing, No unusual epistaxis Respiratory: No cough, No dyspnea at rest, No dyspnea on exertion, No hemoptysis, No problem reported, No see HPI, No shortness of breath, No sputum, No wheezing Cardiac: No PND, No chest pain, No claudication, No edema, No orthopnea, No palpitations, No problem reported, No see HPI Abdomen: No GI bleeding, No constipation, No diarrhea, No nausea, No pain, No problem reported, No see HPI, No vomiting Musculoskeletal: No calf pain, No joint pain, No muscle pain, No problem reported, No see HPI, No swelling Male : No dysuria, No hematuria, No incontinence, No nocturia more than once/ night, No problem reported, No see HPI, No sexual dysfunction, No slowing stream , No urinary frequency Neurologic: No balance problems, No memory loss, No numbness/tingling, No paralysis, No problem reported, No see HPI, No vertigo, No weakness Psychiatric: No anhedonism, No anxiety, No depression symptoms, No insomnia, No problem reported, No see HPI, No substance abuse Heme: No abnormal bleeding/bruising, No clotting problems, No night sweats, No problem reported, No see HPI, No swollen lymph nodes Endo: No excessive thirst, No excessive urination, No fatigue, No problem reported, No see HPI Objective Vital Signs Date Time Temp Pulse Resp B/P Pulse Ox O2 Delivery O2 Flow Rate FiO2 10/15/16 15:06 36.6 65 18 171/75 93 Room Air 10/15/16 13:36 168/71 10/15/16 07:22 36.4 65 18 184/83 94 Room Air 10/15/16 07:14 Room Air 10/15/16 00:15 179/71 10/14/16 23:45 Room Air 10/14/16 22:58 36.8 60 18 172/77 93 Room Air 10/14/16 21:20 73 179/78 10/14/16 19:51 36.9 71 16 183/77 94 Room Air 10/14/16 19:15 Room Air 10/14/16 17:10 36.9 64 170/83 10/14/16 16:45 64 171/75 10/14/16 16:30 66 189/81 10/14/16 16:15 66 189/81 10/14/16 16:00 67 196/84 Physical Exam General Appearance: + obese Eyes: normal inspection, EOMI ENT: normal ENT inspection Neck: supple Respiratory/Chest: chest non-tender, lungs clear, normal breath sounds, no respiratory distress, no accessory muscle use Cardiovascular: regular rate, rhythm, no edema, no gallop, no JVD, no murmur Abdomen: normal bowel sounds, non tender, soft Extremities: normal range of motion, non-tender, + pertinent finding (multiple superficial wounds in both feet) Neurologic/Psychiatric: enhanced environmental operator II-XII nml as tested, no motor/sensory deficits, alert, normal mood/affect, oriented x 3 Skin: normal color, warm/dry, no rash Laboratory Results Last 24 Hours Test 10/15/16 05:20 White Blood Count 4.81 K/uL Red Blood Count 4.28 M/uL Hemoglobin 11.4 g/dL Hematocrit 36.5 % Mean Corpuscular Volume 85.3 fL Mean Corpuscular Hemoglobin 26.6 pg Mean Corpuscular Hemoglobin Concent 31.2 g/dl Platelet Count 214 K/uL Mean Platelet Volume 11.3 fL Neutrophils (%) (Auto) 57.2 % Lymphocytes (%) (Auto) 21.2 % Monocytes (%) (Auto) 17.3 % Eosinophils (%) (Auto) 3.7 % Basophils (%) (Auto) 0.6 % Neutrophils # (Auto) 2.75 K/uL Lymphocytes # (Auto) 1.02 K/uL Monocytes # (Auto) 0.83 K/uL Eosinophils # (Auto) 0.18 K/uL Basophils # (Auto) 0.03 K/uL RDW Standard Deviation 59.4 fL RDW Coefficient of Variation 19.2 % Immature Granulocyte % (Auto) 0.0 % Immature Granulocyte # (Auto) 0.00 K/uL Sodium Level 138 mmol/L Potassium Level 3.6 mmol/L Chloride Level 103 mmol/L Carbon Dioxide Level 25 mmol/L Anion Gap 10.0 mmol/L Blood Urea Nitrogen 28 mg/dl Creatinine 3.30 mg/dl Est Creatinine Clear Calc Drug Dose 42.5 ml/min Estimated GFR () 23.2 Estimated GFR (Non- 20.1 BUN/Creatinine Ratio 8.5 Random Glucose 104 mg/dl Calcium Level 8.4 mg/dl Phosphorus Level 3.0 mg/dl Magnesium Level 1.9 mg/dl Total Bilirubin 0.9 mg/dl Aspartate Amino Transf (AST/SGOT) 29 U/L Alanine Aminotransferase (ALT/SGPT) 23 U/L Alkaline Phosphatase 120 U/L Total Protein 6.5 gm/dl Albumin 2.5 gm/dl Globulin 4.0 gm/dl Albumin/Globulin Ratio 0.6 Assessment and Plan ESRD going to OR for L arm AVF hopefully in am as per escapement maker, HD today PVD, lower ext neuropathy, feet ulcers, STEVE 0.88 on left and 0.77 on right, since going to AVF he can not be on antiplatelets now, we will have to wait, mean while feet ulcer grew MSSA , will treat with CTXN especially that he will get an AVF, wound care acute on chronic grade 2 diastolic CHF exacerbation upon admission -- volume overload due to renal failure, continue dialysis to remove fluid, continue lasix HTN, Continue Hydralazine, Lasix and Metoprolol Anemia; likely of chronic diseases, giving IV iron completed , Procrit held for Hgb >11 as per escapement maker, also given Calcitriol therapy for bones metabolism Elevated troponin upon admission, likely because of mismatch and demanding ischemia, and ESRD making for poor clearance. no evidence of acs Bilateral lower extremity cellulitis stable and improved off abx Morbid obesity type 2 diabetes, A1c 6.7 - diet controlled Significant vitamin D deficiency, start vitamin D replacement 50,000 unit by mouth every week any time 6 week, and then 1000 unit by mouth daily
[2016-10-15] MEDS: CEFTRIAXONE SOD INJ 1 GM in DEXTROSE 5% ADD-VANTAGE 50ML 50 ML IV SCH (16:57)
[2016-10-15 23:04] VITALS: BP 165/76; PULSE 61; TEMP 36.5; O2SAT 96
[2016-10-16] VITALS (26 sets, daily range): BP systolic 130–192; BP diastolic 66–83; PULSE 59–78; TEMP 36.4–36.8; O2SAT 91–95
[2016-10-16] MEDS: ACETAMINOPHEN 325 MG TAB PO PRN (01:35)
[2016-10-16] MEDS ORDERED: CEFAZOLIN 2000 MG/60 ML D5W 60 ML IV SCH (06:00)
[2016-10-16 06:18] LABS: BASO % 1.1 %; BASO ABS # 0.05 K/uL (0-0.2); COMPLETE YES; EOS % 3.7 %; HEMATOCRIT 35.1 % (42-52); IG% 0.2 %; LYMPH % 21.8 %; LYMPH ABS # 1.01 K/uL (1.2-3.4); MEAN CELL VOLUME 84.6 fL (80-100); MEAN CORPUSCULAR HGB CONC 31.9 g/dl (32-36); MEAN PLATELET VOLUME 10.7 fL (7.4-10.4); MONO % 19.2 %; PLATELET COUNT 213 K/uL (130-400); RED BLOOD COUNT 4.15 M/uL (4.7-6.1); WHITE BLOOD COUNT 4.64 K/uL (4.8-10.8)
[2016-10-16 06:49] LABS: BUN/CREATININE RATIO 9.5 (10-20); CREATININE 4.2 mg/dl (0.60-1.40); MAGNESIUM 2.1 mg/dl (1.8-2.4); POTASSIUM 3.7 mmol/L (3.5-5.1)
[2016-10-16 06:53] LABS: PHOSPHORUS 3.9 mg/dl (2.5-4.9)
[2016-10-16] MEDS ORDERED: HEPARIN SOD (PORCINE) 1000 UNIT/ML 10 ML VIAL IV ONE (08:00)
[2016-10-16] MEDS: CALCITRIOL 0.25 MCG CAP PO SCH (09:00)
[2016-10-16] MEDS: METOPROLOL TARTRATE 100 MG TAB PO SCH ×3 (09:00→21:55)
[2016-10-16] MEDS: NEPHROCAPS PO SCH (09:00)
[2016-10-16] MEDS: FUROSEMIDE INJ 80 MG in SYRINGE 0 ML IV SCH ×2 (09:00→21:53)
[2016-10-16] MEDS: HEPARIN SOD 5000 UNIT/0.5 ML CARP SQ SCH ×2 (09:00→21:54)
[2016-10-16] MEDS: METOPROLOL TARTRATE 50 MG TAB PO SCH ×2 (09:00→21:55)
[2016-10-16] MEDS: DOCUSATE SODIUM 100 MG CAP PO SCH ×3 (09:00→21:54)
[2016-10-16] MEDS: HEPARIN SOD (PORCINE) 1000 UNIT/ML 10 ML VIAL IV SCH ×2 (10:00→15:54)
[2016-10-16] MEDS ORDERED: MIDAZOLAM HCL 1 MG/ML 2ML VIAL ONE (10:33)
[2016-10-16] MEDS ORDERED: FENTANYL CITRATE INJ 50 MCG/1 ML 2 ML VIAL ONE (10:33)
--- NOTE | 2016-10-16 10:33 | Dialysis Progress Note ---
Hemodialysis Note Date of Service Oct 16, 2016. Chief Complaint Follow up evaluation of this patient admitted with advanced CKD and tense LE edema with cellulitis Subjective Mr. Quinonez was seen & examined while on HD this morning. Prior to this hospitalization he did not maintain regular medical follow up and had been out of his medications for a prolonged period of time. He was admitted with tense LE edema, weeping leg bullae and cellulitis. He presented with advanced CKD. He required initiation of HD 10/09/16. He reports that his cellulitis and leg edema are markedly improved. He is scheduled today for AVF creation this afternoon. He voices no new medical concerns. Review of Systems Constitutional: No fever Cardiovascular: No chest pain Respiratory: No dyspnea at rest Abdomen: No nausea, No pain, No vomiting Extremities: + leg edema A complete review of systems was performed. Pertinent positives are noted above. All other systems are negative. Vital Signs Last 8 Hrs Date Time Temp Pulse Resp B/P Pulse Ox O2 Delivery O2 Flow Rate FiO2 10/16/16 10:17 36.8 76 184/67 10/16/16 10:15 69 172/79 10/16/16 10:00 76 177/83 10/16/16 09:45 75 171/69 10/16/16 09:30 72 168/74 10/16/16 09:15 66 174/66 10/16/16 09:00 69 172/69 10/16/16 08:45 72 188/72 10/16/16 08:30 65 174/69 10/16/16 08:15 69 183/74 10/16/16 08:00 66 173/77 10/16/16 07:45 69 176/74 10/16/16 07:30 74 169/77 10/16/16 07:15 78 173/76 10/16/16 07:00 71 181/71 10/16/16 06:45 69 172/75 10/16/16 06:30 72 184/69 10/16/16 06:15 68 192/71 10/16/16 06:00 36.4 72 189/69 10/16/16 05:32 36.8 59 18 179/78 95 Room Air I & O 24-Hour Column 10/16/16 08:00 Intake Total 800 ml Balance 800 ml Last Recorded Weight Weight (Kilograms): 177.300 Physical Exam General Appearance: no apparent distress Head: normocephalic, atraumatic Eyes: PERRL, EOMI Neck: no adenopathy Respiratory/Chest: lungs clear Cardiovascular: regular rate, rhythm Abdomen/GI: normal bowel sounds, non tender, soft Extremities/Musculoskelatal: + pertinent finding (trace to 1+ pretibial pitting edema. Cellulitis has resolved) Neurologic/Psych: alert, oriented x 3 Social History Smokeless Tobacco Use: No Drug Use: none Occupation: employed Laboratory Results Past 24 Hours 10/16/16 05:55 Red Blood Count 4.15, Mean Corpuscular Volume 84.6, Mean Corpuscular Hemoglobin 27.0, Mean Corpuscular Hemoglobin Concent 31.9, Mean Platelet Volume 10.7, Neutrophils (%) (Auto) 54.0, Lymphocytes (%) (Auto) 21.8, Monocytes (%) (Auto) 19.2, Eosinophils (%) (Auto) 3.7, Basophils (%) (Auto) 1.1, Neutrophils # (Auto ) 2.51, Lymphocytes # (Auto) 1.01, Monocytes # (Auto) 0.89, Eosinophils # (Auto ) 0.17, Basophils # (Auto) 0.05 10/16/16 05:55 Test 10/16/16 05:55 White Blood Count 4.64 K/uL (4.8-10.8) Red Blood Count 4.15 M/uL (4.7-6.1) Hemoglobin 11.2 g/dL (14.0-18.0) Hematocrit 35.1 % (42-52) Mean Corpuscular Volume 84.6 fL (80-100) Mean Corpuscular Hemoglobin 27.0 pg (25-34) Mean Corpuscular Hemoglobin Concent 31.9 g/dl (32-36) Platelet Count 213 K/uL (130-400) Mean Platelet Volume 10.7 fL (7.4-10.4) Neutrophils (%) (Auto) 54.0 % Lymphocytes (%) (Auto) 21.8 % Monocytes (%) (Auto) 19.2 % Eosinophils (%) (Auto) 3.7 % Basophils (%) (Auto) 1.1 % Neutrophils # (Auto) 2.51 K/uL (1.4-6.5) Lymphocytes # (Auto) 1.01 K/uL (1.2-3.4) Monocytes # (Auto) 0.89 K/uL (0.11-0.59) Eosinophils # (Auto) 0.17 K/uL (0-0.5) Basophils # (Auto) 0.05 K/uL (0-0.2) RDW Standard Deviation 59.3 fL (36.4-46.3) RDW Coefficient of Variation 19.2 % (11.5-14.5) Immature Granulocyte % (Auto) 0.2 % Immature Granulocyte # (Auto) 0.01 K/uL (0.00-0.02) Anion Gap 10.0 mmol/L (3-11) Est Creatinine Clear Calc Drug Dose 33.4 ml/min Estimated GFR () 17.4 Estimated GFR (Non- 15.0 BUN/Creatinine Ratio 9.5 (10-20) Calcium Level 8.0 mg/dl (8.5-10.1) Phosphorus Level 3.9 mg/dl (2.5-4.9) Magnesium Level 2.1 mg/dl (1.8-2.4) Albumin 2.5 gm/dl (3.4-5.0) Allergies Coded Allergies: No Known Allergies (Unverified , 09/30/16) Medications Current Inpatient Medications Medications (Trade) Dose Ordered Sig/Chavez Route Start Time Stop Time Status Last Admin Dose Admin Acetaminophen (Tylenol Tab) 650 mg Q4H PRN PO 09/30/16 19:15 10/30/16 19:14 10/16/16 01:35 650 MG Zolpidem Tartrate (Ambien Tab) 5 mg HSZ PRN PO 09/30/16 19:15 10/30/16 19:14 Ondansetron HCl (Zofran Inj) 4 mg Q6H PRN IV 09/30/16 19:30 10/30/16 19:29 Glucose (Glucose 40% Gel) UD PRN PO 09/30/16 19:30 10/30/16 19:29 Glucose (Glucose Chew Tab) 1 tabs UD PRN PO 09/30/16 19:30 10/30/16 19:29 Dextrose (Dextrose 50% 50ML Syringe) 50 ml UD PRN IV 09/30/16 19:30 10/30/16 19:29 Glucagon (Glucagon Inj) 1 mg UD PRN SQ 09/30/16 19:30 10/30/16 19:29 Hydralazine HCl (HydrALAZINE INJ) 10 mg Q4H PRN IV. 09/30/16 19:45 10/30/16 19:44 10/14/16 23:42 10 MG Miconazole Nitrate (Desenex Powder) 1 appln QS PRN EXT 10/01/16 20:45 10/31/16 20:44 10/10/16 07:30 1 APPLN Calcitriol (Rocaltrol Cap) 0.25 mcg QAM PO 10/03/16 09:00 11/02/16 08:59 10/15/16 07:40 0.25 MCG Ergocalciferol (Vitamin D Cap) 50,000 interunit Q7D PO 10/03/16 09:00 12/19/16 09:01 10/10/16 13:26 50,000 INTERUNIT Metoprolol Tartrate (Lopressor Tab) 100 mg BID PO 10/04/16 21:00 11/03/16 20:59 10/15/16 21:10 100 MG Docusate Sodium (coLACE CAP) 100 mg BID PO 10/05/16 21:00 11/04/16 20:59 10/15/16 07:39 100 MG Polyethylene (Miralax Powder Packet) 17 gm DAILY PRN PO 10/05/16 09:15 11/04/16 09:14 Vitamin B Complex/ Vit C/Folic Acid (Nephrocaps) 1 cap QAM PO 10/07/16 09:00 11/06/16 08:59 10/15/16 07:39 1 CAP Heparin Sodium (Porcine) (Heparin Sq 5000 Unit/0.5ml) 5,000 unit Q12 SQ 10/07/16 21:00 11/06/16 20:59 Future hold 10/15/16 21:13 5,000 UNIT Metoprolol Tartrate 50 mg 50 mg BID PO 10/10/16 21:00 11/09/16 20:59 10/15/16 21:10 50 MG Furosemide/Syringe (Lasix Inj/ Syringe) 8 ml @ 4 mls/min BID IV 10/12/16 21:00 11/11/16 20:59 10/15/16 21:10 4 MLS/MIN Hydralazine HCl (Apresoline Tab) 100 mg 3XDQ4 PO 10/13/16 16:00 11/12/16 15:59 10/15/16 15:41 100 MG Heparin Sodium (Porcine) 500 unit 500 unit TODAY@0900,1000 IV 10/16/16 09:00 10/16/16 16:00 Ceftriaxone Sodium 1 gm/ Dextrose 50 ml @ 100 mls/hr Q24H IV 10/15/16 16:30 10/23/16 16:29 10/15/16 16:57 100 MLS/HR Cefazolin Sodium (Ancef 2000mg/60 ml D5W) 60 ml @ 100 mls/hr PREOP IV 10/16/16 06:00 10/16/16 16:00 Impression (1) STEVE (acute kidney injury) (2) Metabolic acidosis (3) Hypertension (4) Anemia (5) Bilateral lower leg cellulitis (6) Anasarca (7) Secondary hyperparathyroidism of renal origin (8) Nephrotic syndrome Mr. Quinonez is a 56 year old male w/ HTN, T2DM and morbid obesity (BMI 61). He was admitted to the hospital with bilateral lower extremity cellulitis and anasarca. His lower extremity wound culture was positive for MSSA. Blood culture was negative. He has nephrotic range proteinuria, small kidneys w/ cortical thinning on US. Clinical presentation consistent with advanced CKD progression to ESRD requiring dialysis for volume management and clearance. Right IJ HD permcath placed 10/08/16. First HD treatment 10/09/16. Recommendations END STAGE RENAL DISEASE: -- Medically stable on HD this am. Will attempt 3 L UF -- L arm AVF as per vascular surgery this afternoon -- Social service is assisting w/ setting up outpatient HD at [facility] -- Continue furosemide to encourage UOP (patient still makes urine) HYPERTENSION: -- Continue Hydralazine, Lasix and Metoprolol for BP management ANEMIA: -- IV iron completed -- Procrit held for Hgb >11 BONE & MINERAL METABOLISM: -- Calcitriol therapy has been started -- Patient is being given Ergocalciferol to replete Vitamin D2 stores
[2016-10-16] MEDS ORDERED: BUPIVACAINE/EPINEPHRINE 0.5% MPF 1:200,000 30 ML VIAL ONE (10:34)
[2016-10-16] MEDS ORDERED: THROMBIN 5000 UNITS KIT ONE (10:34)
[2016-10-16] MEDS ORDERED: GELATIN SPONGE 12-7MM ONE (10:34)
[2016-10-16] MEDS ORDERED: LIDOCAINE HCL 1% 20 ML VIAL ONE (10:34)
--- NOTE | 2016-10-16 11:03 | Progress Note ---
Progress Note Date of Service Oct 16, 2016. Progress Note Patient for left upper extremity fistula creation today. I have discussed the risks options and benefits of the procedure with the patient. The patient understands the risks options and benefits and agrees to the procedure. I have examined the patient, reviewed the History & Physical and in the interval since the performance of the History & Physical I have noted the following changes of clinical significance: No changes noted
[2016-10-16] MEDS ORDERED: CEFAZOLIN IV 3,000 MG/65 ML D5W IV ONE (11:13)
[2016-10-16] MEDS ORDERED: SODIUM CHLORIDE 0.9% 1000ML 1,000 ML IV PRN (11:14)
[2016-10-16] MEDS ORDERED: FENTANYL CITRATE INJ 50 MCG/1 ML 2 ML VIAL IV PRN (11:15)
[2016-10-16] MEDS ORDERED: ONDANSETRON INJ 2 MG/ML 2 ML VIAL IV PRN (11:15)
[2016-10-16] MEDS ORDERED: NURSING VERBAL MED ORDER ONE (11:15)
[2016-10-16] MEDS ORDERED: PROPOFOL IV EMULSION 10 MG/ML 20 ML VIAL IV ONE ×3 (12:05→12:16)
[2016-10-16] MEDS ORDERED: HEPARIN SOD (PORCINE) 1000 UNIT/ML 10 ML VIAL ONE (12:05)
[2016-10-16] MEDS ORDERED: LIDOCAINE HCL 2% 2 ML VIAL (20MG/ML) ONE (12:11)
--- NOTE | 2016-10-16 12:28 | [facility] Post Operative Brief Note ---
Immediate Operative Summary Operative Date Oct 16, 2016. Pre-Operative Diagnosis End-Stage Renal Disease Post-Operative Diagnosis End-Stage Renal Disease Procedure(s) Performed Left Wrist Arteriovenous Fistula Surgeon Dr. Solomon Furnace Filler Surgeon(s) Paola Correa PA-C and Dr. Lamont Perez Estimated Blood Loss 5 ml Findings Good thrill Specimens None per Surgeon Anesthesia MAC Complication(s) None Disposition Recovery Room / PACU
[2016-10-16] MEDS ORDERED: OXYCODONE/ACETAMINOPHEN 5-325 TAB PO PRN (12:30)
--- NOTE | 2016-10-16 13:10 | OPERATIVE REPORT ---
DATE OF OPERATION: 10/16/2016 PREOPERATIVE DIAGNOSIS: End-stage renal disease on hemodialysis. POSTOPERATIVE DIAGNOSIS: Same. PROCEDURE PERFORMED: Creation of left radiocephalic wrist fistula. SURGEON: Ronny Solomon. NEURO PSYCH SALES SPECIALIST: Dr. Lamont Perez, TRE Le. ANESTHESIA: Local plus sedation. ESTIMATED BLOOD LOSS: 5 mL. COMPLICATIONS: None. INDICATIONS: This is a 56-year-old gentleman with end-stage renal disease. He is currently on dialysis. Fistula was indicated for halfway hemodialysis access to reduce risk of infection. Preoperative vein mapping showed a usable cephalic vein at the level of the left wrist. The patient consented to above procedure after being explained the risks, benefits, alternatives and agreed to proceed. PROCEDURE: The patient was brought to the operating room and placed in supine position. Left hand and arm were prepped and draped in normal sterile fashion. A timeout was performed and all parties agreed to correct patient and procedure to be performed. Appropriate surgical prophylactic antibiotics were administered within 1 hour of the incision. The wrist was anesthetized with a mixture of local anesthetic, and a longitudinal incision was made. The cephalic vein at the level of the wrist was identified with blunt dissection. It was dissected free, both proximally and distally. Side branches were ligated between silk ties. The distal end of the vein was tied off and the vein was transected. Heparinized saline was instilled into the vein and it dilated up nicely. We next turned our attention to the radial artery. It was dissected free in its normal anatomic position. The artery did have some calcifications but was suitable for clamping. 3000 units of heparin was given. The artery was clamped proximally and distally. Arteriotomy was then made with 11 blade and extended with Subramanian scissors. The vein was trimmed to length and sewn to the artery with a 7-0 Prolene suture in a continuous fashion. Prior to completion of the anastomosis, it was backbled, forward bled and flushed. The clamps were released. There was a thrill in the fistula and a palpable radial pulse distal to it. The wound was hemostatic. It was irrigated. The wound was closed in layers with a Vicryl suture for the subcutaneous tissue and a running Vicryl suture on the skin. Glue was applied and a sterile dressing was applied. The patient was taken to recovery room in satisfactory condition. I attest to the content of the Intraoperative Record and any orders documented therein. Any exceptio ns are noted below.
--- NOTE | 2016-10-16 14:06 | Anesthesiology Progress Note ---
Anesthesia Post Op Note Date & Time Oct 16, 2016 at 14:07 Vital Signs Pain Intensity: 0 Vital Signs Past 12 Hours Date Time Temp Pulse Resp B/P Pulse Ox O2 Delivery O2 Flow Rate FiO2 10/16/16 13:12 57 13 10/16/16 13:12 57 13 94 10/16/16 13:10 151/72 10/16/16 13:09 36.6 56 16 151/72 97 Room Air 10/16/16 13:07 61 12 97 10/16/16 13:07 59 12 10/16/16 13:05 146/72 10/16/16 13:02 58 14 10/16/16 13:02 59 14 95 10/16/16 13:01 58 16 146/70 95 Room Air 10/16/16 13:00 146/70 10/16/16 12:57 58 19 93 10/16/16 12:57 59 19 10/16/16 12:55 104/80 10/16/16 12:52 61 14 146/71 10/16/16 12:52 14 10/16/16 12:52 35.9 60 16 146/71 98 Room Air 10/16/16 10:56 36.4 67 20 198/85 95 Room Air 10/16/16 10:17 36.8 76 184/67 10/16/16 10:15 69 172/79 10/16/16 10:00 76 177/83 10/16/16 09:45 75 171/69 10/16/16 09:30 72 168/74 10/16/16 09:15 66 174/66 10/16/16 09:00 69 172/69 10/16/16 08:45 72 188/72 10/16/16 08:30 65 174/69 10/16/16 08:15 69 183/74 10/16/16 08:00 66 173/77 10/16/16 07:45 69 176/74 10/16/16 07:30 74 169/77 10/16/16 07:15 78 173/76 10/16/16 07:00 71 181/71 10/16/16 06:45 69 172/75 10/16/16 06:30 72 184/69 10/16/16 06:15 68 192/71 10/16/16 06:00 36.4 72 189/69 10/16/16 05:32 36.8 59 18 179/78 95 Room Air Notes Mental Status: alert / awake / arousable, participated in evaluation Pt Amnestic to Procedure: Yes Nausea / Vomiting: adequately controlled Pain: adequately controlled Airway Patency, RR, SpO2: stable & adequate BP & HR: stable & adequate Hydration State: stable & adequate Anesthetic Complications: no major complications apparent
[2016-10-16] MEDS: CEFTRIAXONE SOD INJ 1 GM in DEXTROSE 5% ADD-VANTAGE 50ML 50 ML IV SCH (16:06)
--- NOTE | 2016-10-16 17:43 | Progress Note ---
Subjective Date of Service: Oct 16, 2016. Subjective Pt evaluation today including: conversation w/ patient, physical exam, chart review, lab review, review of inpatient medication list Problem List Medical Problems: (1) CHF exacerbation Status: Acute Review of Systems Constitutional: No chills, No fatigue, No fever, No problem reported, No see HPI, No sweats, No weakness, No weight loss Eyes: No diplopia, No discharge, No eye pain, No problem reported, No redness, No see HPI, No worsening of vision ENT: No dental problems, No hearing loss, No nasal symptoms, No problem reported, No see HPI, No sore throat, No tinnitus, No trouble swallowing, No unusual epistaxis Respiratory: No cough, No dyspnea at rest, No dyspnea on exertion, No hemoptysis, No problem reported, No see HPI, No shortness of breath, No sputum, No wheezing Cardiac: No PND, No chest pain, No claudication, No edema, No orthopnea, No palpitations, No problem reported, No see HPI Abdomen: No GI bleeding, No constipation, No diarrhea, No nausea, No pain, No problem reported, No see HPI, No vomiting Musculoskeletal: No calf pain, No joint pain, No muscle pain, No problem reported, No see HPI, No swelling Male : No dysuria, No hematuria, No incontinence, No nocturia more than once/ night, No problem reported, No see HPI, No sexual dysfunction, No slowing stream , No urinary frequency Neurologic: No balance problems, No memory loss, No numbness/tingling, No paralysis, No problem reported, No see HPI, No vertigo, No weakness Psychiatric: No anhedonism, No anxiety, No depression symptoms, No insomnia, No problem reported, No see HPI, No substance abuse Heme: No abnormal bleeding/bruising, No clotting problems, No night sweats, No problem reported, No see HPI, No swollen lymph nodes Endo: No excessive thirst, No excessive urination, No fatigue, No problem reported, No see HPI Skin: No bleeding, No color change, No itch, No new/changing skin lesions, No problem reported, No rash, No see HPI Objective Vital Signs Date Time Temp Pulse Resp B/P Pulse Ox O2 Delivery O2 Flow Rate FiO2 10/16/16 16:30 36.7 63 18 173/75 92 Room Air 10/16/16 15:59 36.7 59 20 172/76 91 Room Air 10/16/16 14:26 61 16 147/79 92 Room Air 10/16/16 14:00 62 18 130/73 92 Room Air 10/16/16 13:30 Room Air 10/16/16 13:12 57 13 10/16/16 13:12 57 13 94 10/16/16 13:10 151/72 10/16/16 13:09 36.6 56 16 151/72 97 Room Air 10/16/16 13:07 61 12 97 10/16/16 13:07 59 12 10/16/16 13:05 146/72 10/16/16 13:02 58 14 10/16/16 13:02 59 14 95 10/16/16 13:01 58 16 146/70 95 Room Air 10/16/16 13:00 146/70 10/16/16 12:57 58 19 93 10/16/16 12:57 59 19 10/16/16 12:55 104/80 10/16/16 12:52 61 14 146/71 10/16/16 12:52 14 10/16/16 12:52 35.9 60 16 146/71 98 Room Air 10/16/16 10:56 36.4 67 20 198/85 95 Room Air 10/16/16 10:17 36.8 76 184/67 10/16/16 10:15 69 172/79 10/16/16 10:00 76 177/83 10/16/16 09:45 75 171/69 10/16/16 09:30 72 168/74 10/16/16 09:15 66 174/66 10/16/16 09:00 69 172/69 10/16/16 08:45 72 188/72 10/16/16 08:30 65 174/69 10/16/16 08:15 69 183/74 10/16/16 08:00 66 173/77 10/16/16 07:45 69 176/74 10/16/16 07:30 74 169/77 10/16/16 07:15 78 173/76 10/16/16 07:00 71 181/71 10/16/16 06:45 69 172/75 10/16/16 06:30 72 184/69 10/16/16 06:15 68 192/71 10/16/16 06:00 36.4 72 189/69 10/16/16 05:32 36.8 59 18 179/78 95 Room Air 10/15/16 23:35 Room Air 10/15/16 23:04 36.5 61 19 165/76 96 Room Air 10/15/16 19:50 Room Air Physical Exam General Appearance: no apparent distress Eyes: normal inspection, EOMI ENT: normal ENT inspection, hearing grossly normal Neck: supple, no adenopathy Respiratory/Chest: chest non-tender, lungs clear, normal breath sounds, no respiratory distress, no accessory muscle use Cardiovascular: regular rate, rhythm, no edema, no gallop, no JVD, no murmur Abdomen: normal bowel sounds, non tender, soft, no organomegaly, no pulsatile mass Extremities: normal range of motion, normal inspection, no pedal edema, no calf tenderness 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, no motor/sensory deficits, alert, normal mood/affect, oriented x 3 Skin: normal color, warm/dry, no rash Laboratory Results Last 24 Hours Test 10/16/16 05:55 White Blood Count 4.64 K/uL Red Blood Count 4.15 M/uL Hemoglobin 11.2 g/dL Hematocrit 35.1 % Mean Corpuscular Volume 84.6 fL Mean Corpuscular Hemoglobin 27.0 pg Mean Corpuscular Hemoglobin Concent 31.9 g/dl Platelet Count 213 K/uL Mean Platelet Volume 10.7 fL Neutrophils (%) (Auto) 54.0 % Lymphocytes (%) (Auto) 21.8 % Monocytes (%) (Auto) 19.2 % Eosinophils (%) (Auto) 3.7 % Basophils (%) (Auto) 1.1 % Neutrophils # (Auto) 2.51 K/uL Lymphocytes # (Auto) 1.01 K/uL Monocytes # (Auto) 0.89 K/uL Eosinophils # (Auto) 0.17 K/uL Basophils # (Auto) 0.05 K/uL RDW Standard Deviation 59.3 fL RDW Coefficient of Variation 19.2 % Immature Granulocyte % (Auto) 0.2 % Immature Granulocyte # (Auto) 0.01 K/uL Sodium Level 139 mmol/L Potassium Level 3.7 mmol/L Chloride Level 104 mmol/L Carbon Dioxide Level 25 mmol/L Anion Gap 10.0 mmol/L Blood Urea Nitrogen 40 mg/dl Creatinine 4.20 mg/dl Est Creatinine Clear Calc Drug Dose 33.4 ml/min Estimated GFR () 17.4 Estimated GFR (Non- 15.0 BUN/Creatinine Ratio 9.5 Random Glucose 105 mg/dl Calcium Level 8.0 mg/dl Phosphorus Level 3.9 mg/dl Magnesium Level 2.1 mg/dl Albumin 2.5 gm/dl Assessment and Plan ESRD S/P Left Wrist Arteriovenous Fistula today, tolerated procedure well, site looks clean as per forging roll operator, HD today PVD, lower ext neuropathy, feet ulcers, STEVE 0.88 on left and 0.77 on right, since going to AVF he can not be on antiplatelets now, we will have to wait, mean while feet ulcer grew MSSA , will treat with CTXN especially that he will get an AVF, wound care acute on chronic grade 2 diastolic CHF exacerbation upon admission -- volume overload due to renal failure, continue dialysis to remove fluid, continue lasix HTN, Continue Hydralazine, Lasix and Metoprolol Anemia; likely of chronic diseases, giving IV iron completed , Procrit held for Hgb >11 as per forging roll operator, also given Calcitriol therapy for bones metabolism Elevated troponin upon admission, likely because of mismatch and demanding ischemia, and ESRD making for poor clearance. no evidence of acs Bilateral lower extremity cellulitis stable and improved off abx Morbid obesity type 2 diabetes, A1c 6.7 - diet controlled Significant vitamin D deficiency, start vitamin D replacement 50,000 unit by mouth every week any time 6 week, and then 1000 unit by mouth daily
[2016-10-17] VITALS (9 sets, daily range): BP systolic 129–161; BP diastolic 62–82; PULSE 58–75; TEMP 36.5–37.1; O2SAT 93–96
[2016-10-17 07:22] LABS: BASO % 1.3 %; BASO ABS # 0.06 K/uL (0-0.2); COMPLETE YES; EOS % 3.3 %; HEMATOCRIT 35.5 % (42-52); IG% 0.2 %; LYMPH % 13.9 %; LYMPH ABS # 0.63 K/uL (1.2-3.4); MEAN CELL VOLUME 85.5 fL (80-100); MEAN CORPUSCULAR HEMOGLOBIN 26.5 pg (25-34); MONO % 16.6 %; NEUT % 64.7 %; PLATELET COUNT 207 K/uL (130-400); RED BLOOD COUNT 4.15 M/uL (4.7-6.1); WHITE BLOOD COUNT 4.53 K/uL (4.8-10.8)
[2016-10-17] MEDS: DOCUSATE SODIUM 100 MG CAP PO SCH ×2 (07:51→21:00)
[2016-10-17] MEDS: METOPROLOL TARTRATE 50 MG TAB PO SCH ×2 (07:51→21:12)
[2016-10-17 07:52] LABS: BUN/CREATININE RATIO 8.7 (10-20); CALCIUM 8.3 mg/dl (8.5-10.1); CREATININE 3.6 mg/dl (0.60-1.40); POTASSIUM 3.7 mmol/L (3.5-5.1)
[2016-10-17] MEDS: FUROSEMIDE INJ 80 MG in SYRINGE 0 ML IV SCH ×2 (07:52→21:18)
[2016-10-17] MEDS: ERGOCALCIFEROL 50,000 INTER.UNIT CAP PO SCH (07:53)
[2016-10-17] MEDS: CALCITRIOL 0.25 MCG CAP PO SCH (07:53)
[2016-10-17] MEDS: METOPROLOL TARTRATE 100 MG TAB PO SCH ×2 (07:54→21:12)
[2016-10-17 07:55] LABS: ALB/GLOB RATIO 0.6 (0.9-2); PHOSPHORUS 3.5 mg/dl (2.5-4.9)
[2016-10-17] MEDS: HEPARIN SOD 5000 UNIT/0.5 ML CARP SQ SCH ×2 (08:17→21:16)
[2016-10-17] MEDS: NEPHROCAPS PO SCH (09:52)
--- NOTE | 2016-10-17 10:34 | Nephrology Progress Note ---
Nephrology Progress Note Date of Service Oct 17, 2016. Chief Complaint Follow up evaluation of this patient admitted with advanced CKD and tense LE edema with cellulitis Review of Systems A complete review of systems was performed. Pertinent positives are noted above. All other systems are negative. 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: employed Laboratory Results Past 24 Hours 10/17/16 06:39 Red Blood Count 4.15, Mean Corpuscular Volume 85.5, Mean Corpuscular Hemoglobin 26.5, Mean Corpuscular Hemoglobin Concent 31.0, Mean Platelet Volume 11.0, Neutrophils (%) (Auto) 64.7, Lymphocytes (%) (Auto) 13.9, Monocytes (%) (Auto) 16.6, Eosinophils (%) (Auto) 3.3, Basophils (%) (Auto) 1.3, Neutrophils # (Auto ) 2.93, Lymphocytes # (Auto) 0.63, Monocytes # (Auto) 0.75, Eosinophils # (Auto ) 0.15, Basophils # (Auto) 0.06 10/17/16 06:39 Test 10/17/16 06:39 White Blood Count 4.53 K/uL (4.8-10.8) Red Blood Count 4.15 M/uL (4.7-6.1) Hemoglobin 11.0 g/dL (14.0-18.0) Hematocrit 35.5 % (42-52) Mean Corpuscular Volume 85.5 fL (80-100) Mean Corpuscular Hemoglobin 26.5 pg (25-34) Mean Corpuscular Hemoglobin Concent 31.0 g/dl (32-36) Platelet Count 207 K/uL (130-400) Mean Platelet Volume 11.0 fL (7.4-10.4) Neutrophils (%) (Auto) 64.7 % Lymphocytes (%) (Auto) 13.9 % Monocytes (%) (Auto) 16.6 % Eosinophils (%) (Auto) 3.3 % Basophils (%) (Auto) 1.3 % Neutrophils # (Auto) 2.93 K/uL (1.4-6.5) Lymphocytes # (Auto) 0.63 K/uL (1.2-3.4) Monocytes # (Auto) 0.75 K/uL (0.11-0.59) Eosinophils # (Auto) 0.15 K/uL (0-0.5) Basophils # (Auto) 0.06 K/uL (0-0.2) RDW Standard Deviation 60.1 fL (36.4-46.3) RDW Coefficient of Variation 19.2 % (11.5-14.5) Immature Granulocyte % (Auto) 0.2 % Immature Granulocyte # (Auto) 0.01 K/uL (0.00-0.02) Anion Gap 11.0 mmol/L (3-11) Est Creatinine Clear Calc Drug Dose 38.6 ml/min Estimated GFR () 20.9 Estimated GFR (Non- 18.1 BUN/Creatinine Ratio 8.7 (10-20) Calcium Level 8.3 mg/dl (8.5-10.1) Phosphorus Level 3.5 mg/dl (2.5-4.9) Magnesium Level 2.0 mg/dl (1.8-2.4) Total Bilirubin 0.6 mg/dl (0.2-1) Aspartate Amino Transf (AST/SGOT) 28 U/L (15-37) Alanine Aminotransferase (ALT/SGPT) 20 U/L (12-78) Alkaline Phosphatase 119 U/L (45-117) Total Protein 6.4 gm/dl (6.4-8.2) Albumin 2.5 gm/dl (3.4-5.0) Globulin 3.9 gm/dl (2.5-4.0) Albumin/Globulin Ratio 0.6 (0.9-2) Allergies Coded Allergies: No Known Allergies (Unverified , 09/30/16) Medications Current Inpatient Medications Medications (Trade) Dose Ordered Sig/Chavez Route Start Time Stop Time Status Last Admin Dose Admin Acetaminophen (Tylenol Tab) 650 mg Q4H PRN PO 09/30/16 19:15 10/30/16 19:14 10/16/16 01:35 650 MG Zolpidem Tartrate (Ambien Tab) 5 mg HSZ PRN PO 09/30/16 19:15 10/30/16 19:14 Ondansetron HCl (Zofran Inj) 4 mg Q6H PRN IV 09/30/16 19:30 10/30/16 19:29 Glucose (Glucose 40% Gel) UD PRN PO 09/30/16 19:30 10/30/16 19:29 Glucose (Glucose Chew Tab) 1 tabs UD PRN PO 09/30/16 19:30 10/30/16 19:29 Dextrose (Dextrose 50% 50ML Syringe) 50 ml UD PRN IV 09/30/16 19:30 10/30/16 19:29 Glucagon (Glucagon Inj) 1 mg UD PRN SQ 09/30/16 19:30 10/30/16 19:29 Hydralazine HCl (HydrALAZINE INJ) 10 mg Q4H PRN IV. 09/30/16 19:45 10/30/16 19:44 10/14/16 23:42 10 MG Miconazole Nitrate (Desenex Powder) 1 appln QS PRN EXT 10/01/16 20:45 10/31/16 20:44 10/10/16 07:30 1 APPLN Calcitriol (Rocaltrol Cap) 0.25 mcg QAM PO 10/03/16 09:00 11/02/16 08:59 10/17/16 07:53 0.25 MCG Ergocalciferol (Vitamin D Cap) 50,000 interunit Q7D PO 10/03/16 09:00 12/19/16 09:01 10/17/16 07:53 50,000 INTERUNIT Metoprolol Tartrate (Lopressor Tab) 100 mg BID PO 10/04/16 21:00 11/03/16 20:59 10/17/16 07:54 100 MG Docusate Sodium (coLACE CAP) 100 mg BID PO 10/05/16 21:00 11/04/16 20:59 10/15/16 07:39 100 MG Polyethylene (Miralax Powder Packet) 17 gm DAILY PRN PO 10/05/16 09:15 11/04/16 09:14 Vitamin B Complex/ Vit C/Folic Acid (Nephrocaps) 1 cap QAM PO 10/07/16 09:00 11/06/16 08:59 10/17/16 09:52 1 CAP Heparin Sodium (Porcine) (Heparin Sq 5000 Unit/0.5ml) 5,000 unit Q12 SQ 10/07/16 21:00 11/06/16 20:59 Future hold 10/17/16 08:17 5,000 UNIT Metoprolol Tartrate 50 mg 50 mg BID PO 10/10/16 21:00 11/09/16 20:59 10/17/16 07:51 50 MG Furosemide/Syringe (Lasix Inj/ Syringe) 8 ml @ 4 mls/min BID IV 10/12/16 21:00 11/11/16 20:59 10/17/16 07:52 4 MLS/MIN Hydralazine HCl 100 mg 100 mg 3XDQ4 PO 10/13/16 16:00 11/12/16 15:59 10/17/16 07:53 100 MG Ceftriaxone Sodium/Dextrose (Rocephin Inj/ Dextrose Add-[place] 50ML) 50 ml @ 100 mls/hr Q24H IV 10/15/16 16:30 10/23/16 16:29 10/16/16 16:06 100 MLS/HR Oxycodone/ Acetaminophen (Percocet 5-325mg Tab) 1 tab Q4H PRN PO 10/16/16 12:30 10/30/16 12:29 Impression (1) STEVE (acute kidney injury) (2) Metabolic acidosis (3) Hypertension (4) Anemia (5) Bilateral lower leg cellulitis (6) Anasarca (7) Secondary hyperparathyroidism of renal origin (8) Nephrotic syndrome Mr. Quinonez is a 56 year old male w/ HTN, T2DM and morbid obesity (BMI 61). He was admitted to the hospital with bilateral lower extremity cellulitis and anasarca. His lower extremity wound culture was positive for MSSA. Blood culture was negative. He has nephrotic range proteinuria, small kidneys w/ cortical thinning on US. Clinical presentation consistent with advanced CKD progression to ESRD requiring dialysis for volume management and clearance. Right IJ HD permcath placed 10/08/16. First HD treatment 10/09/16. Recommendations END STAGE RENAL DISEASE: -- Medically stable on HD this am. Will attempt 3 L UF -- L arm AVF as per vascular surgery this afternoon -- Social service is assisting w/ setting up outpatient [facility] at [facility] -- Continue furosemide to encourage UOP (patient still makes urine) HYPERTENSION: -- Continue Hydralazine, Lasix and Metoprolol for BP management ANEMIA: -- IV iron completed -- Procrit held for Hgb >11 BONE & MINERAL METABOLISM: -- Calcitriol therapy has been started -- Patient is being given Ergocalciferol to replete Vitamin D2 stores
--- NOTE | 2016-10-17 15:12 | Nephrology Progress Note ---
Nephrology Progress Note Date of Service Oct 17, 2016. Chief Complaint Follow up evaluation of this patient admitted with advanced CKD and tense LE edema with cellulitis Subjective Mr. Quinonez was seen & examined in his hospital room this morning. Prior to this hospitalization he did not maintain regular medical follow up and had been out of his medications for a prolonged period of time. He was admitted with tense LE edema, weeping leg bullae and cellulitis. He presented with advanced CKD. He required initiation of HD 10/09/16. He had his left wrist AVF created 10/16/[address] Solomon. He voices no new medical concerns at this time. Review of Systems Constitutional: No fever Cardiovascular: No chest pain Respiratory: No dyspnea at rest Abdomen: No nausea, No pain, No vomiting A complete review of systems was performed. Pertinent positives are noted above. All other systems are negative. Vital Signs Last 8 Hrs Date Time Temp Pulse Resp B/P Pulse Ox O2 Delivery O2 Flow Rate FiO2 10/17/16 14:59 36.8 75 18 161/75 96 Room Air 10/17/16 13:07 36.7 64 18 137/72 93 Room Air 10/17/16 12:28 58 157/77 10/17/16 07:52 Room Air 10/17/16 07:22 36.8 62 16 158/69 95 Room Air I & O 24-Hour Column 10/17/16 08:00 Intake Total 875 ml Output Total 2505 ml Balance -1630 ml Last Recorded Weight Weight (Kilograms): 174.500 Physical Exam General Appearance: no apparent distress Head: normocephalic, atraumatic Eyes: PERRL, EOMI Neck: no adenopathy Respiratory/Chest: lungs clear, no respiratory distress Cardiovascular: regular rate, rhythm Abdomen/GI: normal bowel sounds, non tender, soft Extremities/Musculoskelatal: + pertinent finding (trace to 1+ pretibial pitting edema. L wrist AVF + bruit. L hand remains well perfused.) Neurologic/Psych: alert, oriented x 3 Family History Cancer Diabetes mellitus Heart disease Hypertension Kidney disease Kidney stones Lung disease Social History Smokeless Tobacco Use: No Drug Use: none Occupation: employed Laboratory Results Past 24 Hours 10/17/16 06:39 Red Blood Count 4.15, Mean Corpuscular Volume 85.5, Mean Corpuscular Hemoglobin 26.5, Mean Corpuscular Hemoglobin Concent 31.0, Mean Platelet Volume 11.0, Neutrophils (%) (Auto) 64.7, Lymphocytes (%) (Auto) 13.9, Monocytes (%) (Auto) 16.6, Eosinophils (%) (Auto) 3.3, Basophils (%) (Auto) 1.3, Neutrophils # (Auto ) 2.93, Lymphocytes # (Auto) 0.63, Monocytes # (Auto) 0.75, Eosinophils # (Auto ) 0.15, Basophils # (Auto) 0.06 10/17/16 06:39 Test 10/17/16 06:39 White Blood Count 4.53 K/uL (4.8-10.8) Red Blood Count 4.15 M/uL (4.7-6.1) Hemoglobin 11.0 g/dL (14.0-18.0) Hematocrit 35.5 % (42-52) Mean Corpuscular Volume 85.5 fL (80-100) Mean Corpuscular Hemoglobin 26.5 pg (25-34) Mean Corpuscular Hemoglobin Concent 31.0 g/dl (32-36) Platelet Count 207 K/uL (130-400) Mean Platelet Volume 11.0 fL (7.4-10.4) Neutrophils (%) (Auto) 64.7 % Lymphocytes (%) (Auto) 13.9 % Monocytes (%) (Auto) 16.6 % Eosinophils (%) (Auto) 3.3 % Basophils (%) (Auto) 1.3 % Neutrophils # (Auto) 2.93 K/uL (1.4-6.5) Lymphocytes # (Auto) 0.63 K/uL (1.2-3.4) Monocytes # (Auto) 0.75 K/uL (0.11-0.59) Eosinophils # (Auto) 0.15 K/uL (0-0.5) Basophils # (Auto) 0.06 K/uL (0-0.2) RDW Standard Deviation 60.1 fL (36.4-46.3) RDW Coefficient of Variation 19.2 % (11.5-14.5) Immature Granulocyte % (Auto) 0.2 % Immature Granulocyte # (Auto) 0.01 K/uL (0.00-0.02) Anion Gap 11.0 mmol/L (3-11) Est Creatinine Clear Calc Drug Dose 38.6 ml/min Estimated GFR () 20.9 Estimated GFR (Non- 18.1 BUN/Creatinine Ratio 8.7 (10-20) Calcium Level 8.3 mg/dl (8.5-10.1) Phosphorus Level 3.5 mg/dl (2.5-4.9) Magnesium Level 2.0 mg/dl (1.8-2.4) Total Bilirubin 0.6 mg/dl (0.2-1) Aspartate Amino Transf (AST/SGOT) 28 U/L (15-37) Alanine Aminotransferase (ALT/SGPT) 20 U/L (12-78) Alkaline Phosphatase 119 U/L (45-117) Total Protein 6.4 gm/dl (6.4-8.2) Albumin 2.5 gm/dl (3.4-5.0) Globulin 3.9 gm/dl (2.5-4.0) Albumin/Globulin Ratio 0.6 (0.9-2) Allergies Coded Allergies: No Known Allergies (Unverified , 09/30/16) Medications Current Inpatient Medications Medications (Trade) Dose Ordered Sig/Chavez Route Start Time Stop Time Status Last Admin Dose Admin Acetaminophen (Tylenol Tab) 650 mg Q4H PRN PO 09/30/16 19:15 10/30/16 19:14 10/16/16 01:35 650 MG Zolpidem Tartrate (Ambien Tab) 5 mg HSZ PRN PO 09/30/16 19:15 10/30/16 19:14 Ondansetron HCl (Zofran Inj) 4 mg Q6H PRN IV 09/30/16 19:30 10/30/16 19:29 Glucose (Glucose 40% Gel) UD PRN PO 09/30/16 19:30 10/30/16 19:29 Glucose (Glucose Chew Tab) 1 tabs UD PRN PO 09/30/16 19:30 10/30/16 19:29 Dextrose (Dextrose 50% 50ML Syringe) 50 ml UD PRN IV 09/30/16 19:30 10/30/16 19:29 Glucagon (Glucagon Inj) 1 mg UD PRN SQ 09/30/16 19:30 10/30/16 19:29 Hydralazine HCl (HydrALAZINE INJ) 10 mg Q4H PRN IV. 09/30/16 19:45 10/30/16 19:44 10/14/16 23:42 10 MG Miconazole Nitrate (Desenex Powder) 1 appln QS PRN EXT 10/01/16 20:45 10/31/16 20:44 10/10/16 07:30 1 APPLN Calcitriol (Rocaltrol Cap) 0.25 mcg QAM PO 10/03/16 09:00 11/02/16 08:59 10/17/16 07:53 0.25 MCG Ergocalciferol (Vitamin D Cap) 50,000 interunit Q7D PO 10/03/16 09:00 12/19/16 09:01 10/17/16 07:53 50,000 INTERUNIT Metoprolol Tartrate (Lopressor Tab) 100 mg BID PO 10/04/16 21:00 11/03/16 20:59 10/17/16 07:54 100 MG Docusate Sodium (coLACE CAP) 100 mg BID PO 10/05/16 21:00 11/04/16 20:59 10/15/16 07:39 100 MG Polyethylene (Miralax Powder Packet) 17 gm DAILY PRN PO 10/05/16 09:15 11/04/16 09:14 Vitamin B Complex/ Vit C/Folic Acid (Nephrocaps) 1 cap QAM PO 10/07/16 09:00 11/06/16 08:59 10/17/16 09:52 1 CAP Heparin Sodium (Porcine) (Heparin Sq 5000 Unit/0.5ml) 5,000 unit Q12 SQ 10/07/16 21:00 11/06/16 20:59 Future hold 10/17/16 08:17 5,000 UNIT Metoprolol Tartrate 50 mg 50 mg BID PO 10/10/16 21:00 11/09/16 20:59 10/17/16 07:51 50 MG Furosemide/Syringe (Lasix Inj/ Syringe) 8 ml @ 4 mls/min BID IV 10/12/16 21:00 11/11/16 20:59 10/17/16 07:52 4 MLS/MIN Hydralazine HCl 100 mg 100 mg 3XDQ4 PO 10/13/16 16:00 11/12/16 15:59 10/17/16 12:26 100 MG Ceftriaxone Sodium/Dextrose (Rocephin Inj/ Dextrose Add-[place] 50ML) 50 ml @ 100 mls/hr Q24H IV 10/15/16 16:30 10/23/16 16:29 10/16/16 16:06 100 MLS/HR Oxycodone/ Acetaminophen (Percocet 5-325mg Tab) 1 tab Q4H PRN PO 10/16/16 12:30 10/30/16 12:29 Impression (1) STEVE (acute kidney injury) (2) Metabolic acidosis (3) Hypertension (4) Anemia (5) Bilateral lower leg cellulitis (6) Anasarca (7) Secondary hyperparathyroidism of renal origin (8) Nephrotic syndrome Mr. Quinonez is a 56 year old male w/ HTN, T2DM and morbid obesity (BMI 61). He was admitted to the hospital with bilateral lower extremity cellulitis and anasarca. His lower extremity wound culture was positive for MSSA. Blood culture was negative. He has nephrotic range proteinuria, small kidneys w/ cortical thinning on US. Clinical presentation consistent with advanced CKD progression to ESRD requiring dialysis for volume management and clearance. Right IJ HD permcath placed 10/08/16. First HD treatment 10/09/16. Recommendations END STAGE RENAL DISEASE: -- Volume status and electrolyte balance are acceptable at this time. Will schedule next HD for 10/18. -- L arm AVF as per vascular surgery this afternoon -- Social service is assisting w/ setting up outpatient HD at [facility] -- Continue furosemide to encourage UOP (patient still makes urine) HYPERTENSION: -- Continue Hydralazine, Lasix and Metoprolol for BP management ANEMIA: -- IV iron completed -- Procrit held for Hgb >11 BONE & MINERAL METABOLISM: -- Calcitriol therapy has been started -- Patient is being given Ergocalciferol to replete Vitamin D2 stores
[2016-10-17] MEDS: ACETAMINOPHEN 325 MG TAB PO PRN ×2 (15:53→23:37)
[2016-10-17] MEDS: CEFTRIAXONE SOD INJ 1 GM in DEXTROSE 5% ADD-VANTAGE 50ML 50 ML IV SCH (15:53)
--- NOTE | 2016-10-17 20:44 | Progress Note ---
Subjective Date of Service: Oct 17, 2016. Subjective Pt evaluation today including: conversation w/ patient, physical exam, chart review, lab review, review of inpatient medication list Problem List Medical Problems: (1) CHF exacerbation Status: Acute Review of Systems Constitutional: No chills, No fatigue, No fever, No problem reported, No see HPI, No sweats, No weakness, No weight loss Eyes: No diplopia, No discharge, No eye pain, No problem reported, No redness, No see HPI, No worsening of vision ENT: No dental problems, No hearing loss, No nasal symptoms, No problem reported, No see HPI, No sore throat, No tinnitus, No trouble swallowing, No unusual epistaxis Respiratory: No cough, No dyspnea at rest, No dyspnea on exertion, No hemoptysis, No problem reported, No see HPI, No shortness of breath, No sputum, No wheezing Cardiac: No PND, No chest pain, No claudication, No edema, No orthopnea, No palpitations, No problem reported, No see HPI Abdomen: No GI bleeding, No constipation, No diarrhea, No nausea, No pain, No problem reported, No see HPI, No vomiting Musculoskeletal: No calf pain, No joint pain, No muscle pain, No problem reported, No see HPI, No swelling Male : No dysuria, No hematuria, No incontinence, No nocturia more than once/ night, No problem reported, No see HPI, No sexual dysfunction, No slowing stream , No urinary frequency Neurologic: No balance problems, No memory loss, No numbness/tingling, No paralysis, No problem reported, No see HPI, No vertigo, No weakness Psychiatric: No anhedonism, No anxiety, No depression symptoms, No insomnia, No problem reported, No see HPI, No substance abuse Heme: No abnormal bleeding/bruising, No clotting problems, No night sweats, No problem reported, No see HPI, No swollen lymph nodes Endo: No excessive thirst, No excessive urination, No fatigue, No problem reported, No see HPI Skin: No bleeding, No color change, No itch, No new/changing skin lesions, No problem reported, No rash, No see HPI Medications Current Inpatient Medications Medications (Trade) Dose Ordered Sig/Chavez Route Start Time Stop Time Status Last Admin Dose Admin Acetaminophen (Tylenol Tab) 650 mg Q4H PRN PO 09/30/16 19:15 10/30/16 19:14 10/17/16 15:53 650 MG Zolpidem Tartrate (Ambien Tab) 5 mg HSZ PRN PO 09/30/16 19:15 10/30/16 19:14 Ondansetron HCl (Zofran Inj) 4 mg Q6H PRN IV 09/30/16 19:30 10/30/16 19:29 Glucose (Glucose 40% Gel) UD PRN PO 09/30/16 19:30 10/30/16 19:29 Glucose (Glucose Chew Tab) 1 tabs UD PRN PO 09/30/16 19:30 10/30/16 19:29 Dextrose (Dextrose 50% 50ML Syringe) 50 ml UD PRN IV 09/30/16 19:30 10/30/16 19:29 Glucagon (Glucagon Inj) 1 mg UD PRN SQ 09/30/16 19:30 10/30/16 19:29 Hydralazine HCl (HydrALAZINE INJ) 10 mg Q4H PRN IV. 09/30/16 19:45 10/30/16 19:44 10/14/16 23:42 10 MG Miconazole Nitrate (Desenex Powder) 1 appln QS PRN EXT 10/01/16 20:45 10/31/16 20:44 10/10/16 07:30 1 APPLN Calcitriol (Rocaltrol Cap) 0.25 mcg QAM PO 10/03/16 09:00 11/02/16 08:59 10/17/16 07:53 0.25 MCG Ergocalciferol (Vitamin D Cap) 50,000 interunit Q7D PO 10/03/16 09:00 12/19/16 09:01 10/17/16 07:53 50,000 INTERUNIT Metoprolol Tartrate (Lopressor Tab) 100 mg BID PO 10/04/16 21:00 11/03/16 20:59 10/17/16 07:54 100 MG Docusate Sodium (coLACE CAP) 100 mg BID PO 10/05/16 21:00 11/04/16 20:59 10/15/16 07:39 100 MG Polyethylene (Miralax Powder Packet) 17 gm DAILY PRN PO 10/05/16 09:15 11/04/16 09:14 Vitamin B Complex/ Vit C/Folic Acid (Nephrocaps) 1 cap QAM PO 10/07/16 09:00 11/06/16 08:59 10/17/16 09:52 1 CAP Heparin Sodium (Porcine) (Heparin Sq 5000 Unit/0.5ml) 5,000 unit Q12 SQ 10/07/16 21:00 11/06/16 20:59 Future hold 10/17/16 08:17 5,000 UNIT Metoprolol Tartrate 50 mg 50 mg BID PO 10/10/16 21:00 11/09/16 20:59 10/17/16 07:51 50 MG Furosemide/Syringe (Lasix Inj/ Syringe) 8 ml @ 4 mls/min BID IV 10/12/16 21:00 11/11/16 20:59 10/17/16 07:52 4 MLS/MIN Hydralazine HCl 100 mg 100 mg 3XDQ4 PO 10/13/16 16:00 11/12/16 15:59 10/17/16 15:54 100 MG Ceftriaxone Sodium/Dextrose (Rocephin Inj/ Dextrose Add-[place] 50ML) 50 ml @ 100 mls/hr Q24H IV 10/15/16 16:30 10/23/16 16:29 10/17/16 15:53 100 MLS/HR Oxycodone/ Acetaminophen (Percocet 5-325mg Tab) 1 tab Q4H PRN PO 10/16/16 12:30 10/30/16 12:29 Heparin Sodium (Porcine) (Heparin Iv Bolus) 2,000 unit DURINGDIALYSIS IV 10/18/16 06:00 10/18/16 18:00 Heparin Sodium (Porcine) (Heparin Iv Bolus) 1,000 unit Q1H IV 10/18/16 06:00 10/18/16 18:00 Objective Vital Signs Date Time Temp Pulse Resp B/P Pulse Ox O2 Delivery O2 Flow Rate FiO2 10/17/16 17:30 129/69 10/17/16 15:20 96 Room Air 10/17/16 14:59 36.8 75 18 161/75 96 Room Air 10/17/16 13:07 36.7 64 18 137/72 93 Room Air 10/17/16 12:28 58 157/77 10/17/16 07:52 Room Air 10/17/16 07:22 36.8 62 16 158/69 95 Room Air 10/17/16 03:07 37.1 60 16 153/74 95 Room Air 10/17/16 00:10 Room Air 10/16/16 23:46 36.5 60 18 157/72 93 Room Air 10/16/16 21:56 68 167/77 Physical Exam General Appearance: no apparent distress Eyes: normal inspection, EOMI ENT: normal ENT inspection, hearing grossly normal, TMs normal, pharynx normal Neck: supple Respiratory/Chest: chest non-tender, lungs clear, normal breath sounds, no respiratory distress, no accessory muscle use Cardiovascular: regular rate, rhythm, no edema, no gallop, no JVD, no murmur Abdomen: normal bowel sounds, non tender, soft, no organomegaly Extremities: normal range of motion, non-tender, + pertinent finding (multiple superficial ulcers in both lower ext) 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, no motor/sensory deficits, alert, normal mood/affect, oriented x 3 Laboratory Results Last 24 Hours Test 10/17/16 06:39 White Blood Count 4.53 K/uL Red Blood Count 4.15 M/uL Hemoglobin 11.0 g/dL Hematocrit 35.5 % Mean Corpuscular Volume 85.5 fL Mean Corpuscular Hemoglobin 26.5 pg Mean Corpuscular Hemoglobin Concent 31.0 g/dl Platelet Count 207 K/uL Mean Platelet Volume 11.0 fL Neutrophils (%) (Auto) 64.7 % Lymphocytes (%) (Auto) 13.9 % Monocytes (%) (Auto) 16.6 % Eosinophils (%) (Auto) 3.3 % Basophils (%) (Auto) 1.3 % Neutrophils # (Auto) 2.93 K/uL Lymphocytes # (Auto) 0.63 K/uL Monocytes # (Auto) 0.75 K/uL Eosinophils # (Auto) 0.15 K/uL Basophils # (Auto) 0.06 K/uL RDW Standard Deviation 60.1 fL RDW Coefficient of Variation 19.2 % Immature Granulocyte % (Auto) 0.2 % Immature Granulocyte # (Auto) 0.01 K/uL Sodium Level 138 mmol/L Potassium Level 3.7 mmol/L Chloride Level 104 mmol/L Carbon Dioxide Level 23 mmol/L Anion Gap 11.0 mmol/L Blood Urea Nitrogen 31 mg/dl Creatinine 3.60 mg/dl Est Creatinine Clear Calc Drug Dose 38.6 ml/min Estimated GFR () 20.9 Estimated GFR (Non- 18.1 BUN/Creatinine Ratio 8.7 Random Glucose 126 mg/dl Calcium Level 8.3 mg/dl Phosphorus Level 3.5 mg/dl Magnesium Level 2.0 mg/dl Total Bilirubin 0.6 mg/dl Aspartate Amino Transf (AST/SGOT) 28 U/L Alanine Aminotransferase (ALT/SGPT) 20 U/L Alkaline Phosphatase 119 U/L Total Protein 6.4 gm/dl Albumin 2.5 gm/dl Globulin 3.9 gm/dl Albumin/Globulin Ratio 0.6 Assessment and Plan ESRD S/P Left Wrist Arteriovenous Fistula, tolerated procedure well, site looks clean as per cnc programmer, HD and electrolyte management scheduled as out patient dialysis 10/22 PVD, lower ext neuropathy, feet ulcers, STEVE 0.88 on left and 0.77 on right, since going to AVF he can not be on antiplatelets now, we will have to wait, mean while feet ulcer grew MSSA , will treat with CTXN especially that he will get an AVF, wound care acute on chronic grade 2 diastolic CHF exacerbation upon admission -- volume overload due to renal failure, continue dialysis to remove fluid, continue lasix HTN, Continue Hydralazine, Lasix and Metoprolol Anemia; likely of chronic diseases, giving IV iron completed , Procrit held for Hgb >11 as per cnc programmer, also given Calcitriol therapy for bones metabolism Elevated troponin upon admission, likely because of mismatch and demanding ischemia, and ESRD making for poor clearance. no evidence of acs Bilateral lower extremity cellulitis stable and improved off abx Morbid obesity type 2 diabetes, A1c 6.7 - diet controlled Significant vitamin D deficiency, start vitamin D replacement 50,000 unit by mouth every week any time 6 week, and then 1000 unit by mouth daily
[2016-10-18] VITALS (18 sets, daily range): BP systolic 130–187; BP diastolic 68–88; PULSE 55–65; TEMP 36.4–36.7; O2SAT 92–95
[2016-10-18] MEDS ORDERED: HEPARIN SOD (PORCINE) 1000 UNIT/ML 10 ML VIAL IV SCH (06:00)
[2016-10-18 07:27] LABS: BUN/CREATININE RATIO 9.2 (10-20); CALCIUM 8.3 mg/dl (8.5-10.1); CREATININE 4.4 mg/dl (0.60-1.40); POTASSIUM 3.8 mmol/L (3.5-5.1)
[2016-10-18] MEDS: DOCUSATE SODIUM 100 MG CAP PO SCH ×2 (08:07→20:38)
[2016-10-18] MEDS: NEPHROCAPS PO SCH (08:07)
[2016-10-18] MEDS: CALCITRIOL 0.25 MCG CAP PO SCH (08:08)
[2016-10-18] MEDS: HEPARIN SOD 5000 UNIT/0.5 ML CARP SQ SCH ×2 (08:12→20:41)
--- NOTE | 2016-10-18 11:20 | Progress Note ---
Progress Note Date of Service: Oct 18, 2016. Subjective 56 yo M with multple medical problems, POD # 2 after L wrist AVF. Admits mild discomfort in L wrist. Denies any other complaints. Problem List Medical Problems: (1) CHF exacerbation Status: Acute Objective Vital Signs Vital Signs Past 12 Hours Date Time Temp Pulse Resp B/P Pulse Ox O2 Delivery O2 Flow Rate FiO2 10/18/16 10:30 57 177/83 10/18/16 10:00 59 169/77 10/18/16 09:45 58 154/77 10/18/16 09:30 58 157/69 10/18/16 09:15 58 163/77 10/18/16 09:03 62 159/68 10/18/16 08:53 93 Room Air 10/18/16 07:39 36.7 65 17 174/75 93 Room Air 10/17/16 23:25 Room Air Exam CONST: A&O x4, NAD, obese male EXT: L wrist AVF incision C/D/I. + thrill/bruit noted. Intake & Output 8-Hour Column 10/17/16 10/18/16 10/18/16 16:00 00:00 08:00 Intake Total 240 ml 340 ml Balance 240 ml 340 ml 24-Hour Column 10/18/16 08:00 Intake Total 580 ml Balance 580 ml Laboratory and Microbiology Results Past 24 Hours Test 10/18/16 06:16 Range/Units Sodium Level 137 136-145 mmol/L Potassium Level 3.8 3.5-5.1 mmol/L Chloride Level 104 98-107 mmol/L Carbon Dioxide Level 21 21-32 mmol/L Anion Gap 12.0 3-11 mmol/L Blood Urea Nitrogen 40 7-18 mg/dl Creatinine 4.40 0.60-1.40 mg/dl Est Creatinine Clear Calc Drug Dose 31.6 ml/min Estimated GFR () 16.4 Estimated GFR (Non- 14.2 BUN/Creatinine Ratio 9.2 10-20 Random Glucose 120 70-99 mg/dl Calcium Level 8.3 8.5-10.1 mg/dl ASSESSMENT and PLAN: s/p L wrist AVF creation ESRD on HD Pt doing well post op. Will see in office in 4 weeks for reevaluation.
--- NOTE | 2016-10-18 11:31 | Dialysis Progress Note ---
Hemodialysis Note Date of Service Oct 18, 2016. Chief Complaint Follow up evaluation of this patient admitted with advanced CKD and tense LE edema with cellulitis Subjective Mr. Quinonez was seen & examined while on HD this morning. Prior to this hospitalization he did not maintain regular medical follow up and had been out of his medications for a prolonged period of time. He was admitted with tense LE edema, weeping leg bullae and cellulitis. He presented with advanced CKD. He required initiation of HD 10/09/16. He had his left wrist AVF created by Dr. Solomon. He is medically stable on HD at this time. AVF has + bruit. Outpatient HD has been scheduled in [place], [place] starting Friday10/22/16. Review of Systems Constitutional: No fever Cardiovascular: No chest pain Respiratory: No dyspnea at rest Abdomen: No nausea, No pain, No vomiting Extremities: + leg edema A complete review of systems was performed. Pertinent positives are noted above. All other systems are negative. Vital Signs Last 8 Hrs Date Time Temp Pulse Resp B/P Pulse Ox O2 Delivery O2 Flow Rate FiO2 10/18/16 11:15 57 174/83 10/18/16 11:00 57 182/88 10/18/16 10:45 58 181/85 10/18/16 10:30 57 177/83 10/18/16 10:00 59 169/77 10/18/16 09:45 58 154/77 10/18/16 09:30 58 157/69 10/18/16 09:15 58 163/77 10/18/16 09:03 62 159/68 10/18/16 08:53 93 Room Air 10/18/16 07:39 36.7 65 17 174/75 93 Room Air I & O 24-Hour Column 10/18/16 07:59 Intake Total 580 ml Balance 580 ml Last Recorded Weight Weight (Kilograms): 174.200 Physical Exam General Appearance: no apparent distress Head: normocephalic, atraumatic Eyes: PERRL, EOMI Neck: no adenopathy Respiratory/Chest: lungs clear, no respiratory distress Cardiovascular: regular rate, rhythm Abdomen/GI: normal bowel sounds, non tender, soft Extremities/Musculoskelatal: + pertinent finding (1+ pretibial pitting edema) Neurologic/Psych: alert, oriented x 3 Social History Smokeless Tobacco Use: No Drug Use: none Occupation: employed Laboratory Results Past 24 Hours 10/18/16 06:16 Test 10/18/16 06:16 Anion Gap 12.0 mmol/L (3-11) Est Creatinine Clear Calc Drug Dose 31.6 ml/min Estimated GFR () 16.4 Estimated GFR (Non- 14.2 BUN/Creatinine Ratio 9.2 (10-20) Calcium Level 8.3 mg/dl (8.5-10.1) Allergies Coded Allergies: No Known Allergies (Unverified , 09/30/16) Medications Current Inpatient Medications Medications (Trade) Dose Ordered Sig/Chavez Route Start Time Stop Time Status Last Admin Dose Admin Acetaminophen (Tylenol Tab) 650 mg Q4H PRN PO 09/30/16 19:15 10/30/16 19:14 10/17/16 23:37 650 MG Zolpidem Tartrate (Ambien Tab) 5 mg HSZ PRN PO 09/30/16 19:15 10/30/16 19:14 Ondansetron HCl (Zofran Inj) 4 mg Q6H PRN IV 09/30/16 19:30 10/30/16 19:29 Glucose (Glucose 40% Gel) UD PRN PO 09/30/16 19:30 10/30/16 19:29 Glucose (Glucose Chew Tab) 1 tabs UD PRN PO 09/30/16 19:30 10/30/16 19:29 Dextrose (Dextrose 50% 50ML Syringe) 50 ml UD PRN IV 09/30/16 19:30 10/30/16 19:29 Glucagon (Glucagon Inj) 1 mg UD PRN SQ 09/30/16 19:30 10/30/16 19:29 Hydralazine HCl (HydrALAZINE INJ) 10 mg Q4H PRN IV. 09/30/16 19:45 10/30/16 19:44 10/14/16 23:42 10 MG Miconazole Nitrate (Desenex Powder) 1 appln QS PRN EXT 10/01/16 20:45 10/31/16 20:44 10/10/16 07:30 1 APPLN Calcitriol (Rocaltrol Cap) 0.25 mcg QAM PO 10/03/16 09:00 11/02/16 08:59 10/18/16 08:08 0.25 MCG Ergocalciferol (Vitamin D Cap) 50,000 interunit Q7D PO 10/03/16 09:00 12/19/16 09:01 10/17/16 07:53 50,000 INTERUNIT Metoprolol Tartrate (Lopressor Tab) 100 mg BID PO 10/04/16 21:00 11/03/16 20:59 10/17/16 21:12 100 MG Docusate Sodium (coLACE CAP) 100 mg BID PO 10/05/16 21:00 11/04/16 20:59 10/15/16 07:39 100 MG Polyethylene (Miralax Powder Packet) 17 gm DAILY PRN PO 10/05/16 09:15 11/04/16 09:14 Vitamin B Complex/ Vit C/Folic Acid (Nephrocaps) 1 cap QAM PO 10/07/16 09:00 11/06/16 08:59 10/18/16 08:07 1 CAP Heparin Sodium (Porcine) (Heparin Sq 5000 Unit/0.5ml) 5,000 unit Q12 SQ 10/07/16 21:00 11/06/16 20:59 Future hold 10/18/16 08:12 5,000 UNIT Metoprolol Tartrate 50 mg 50 mg BID PO 10/10/16 21:00 11/09/16 20:59 10/17/16 21:12 50 MG Furosemide/Syringe (Lasix Inj/ Syringe) 8 ml @ 4 mls/min BID IV 10/12/16 21:00 11/11/16 20:59 10/17/16 21:18 4 MLS/MIN Hydralazine HCl 100 mg 100 mg 3XDQ4 PO 10/13/16 16:00 11/12/16 15:59 10/17/16 15:54 100 MG Ceftriaxone Sodium/Dextrose (Rocephin Inj/ Dextrose Add-[place] 50ML) 50 ml @ 100 mls/hr Q24H IV 10/15/16 16:30 10/23/16 16:29 10/17/16 15:53 100 MLS/HR Oxycodone/ Acetaminophen (Percocet 5-325mg Tab) 1 tab Q4H PRN PO 10/16/16 12:30 10/30/16 12:29 Heparin Sodium (Porcine) (Heparin Iv Bolus) 2,000 unit DURINGDIALYSIS IV 10/18/16 06:00 10/18/16 18:00 Heparin Sodium (Porcine) (Heparin Iv Bolus) 1,000 unit Q1H IV 10/18/16 06:00 10/18/16 18:00 Impression (1) STEVE (acute kidney injury) (2) Metabolic acidosis (3) Hypertension (4) Anemia (5) Bilateral lower leg cellulitis (6) Anasarca (7) Secondary hyperparathyroidism of renal origin (8) Nephrotic syndrome Mr. Quinonez is a 56 year old male w/ HTN, T2DM and morbid obesity (BMI 61). He was admitted to the hospital with bilateral lower extremity cellulitis and anasarca. His lower extremity wound culture was positive for MSSA. Blood culture was negative. He has nephrotic range proteinuria, small kidneys w/ cortical thinning on US. Clinical presentation consistent with advanced CKD progression to ESRD requiring dialysis for volume management and clearance. Right IJ HD permcath placed 10/08/16. First HD treatment 10/09/16. Recommendations END STAGE RENAL DISEASE: -- Patient is medically stable on HD. No change to current HD prescription at this time. -- L arm AVF with + bruit. Left hand remains well perfused -- Outpatient HD scheduled to start 10/22/16 in [place] -- Continue furosemide to encourage UOP (patient still makes urine) -- Will schedule next HD for tomorrow morning to place patient on TTS schedule in preparation for outpatient HD HYPERTENSION: -- Continue Hydralazine, Lasix and Metoprolol for BP management ANEMIA: -- IV iron completed -- Procrit held for Hgb >11 BONE & MINERAL METABOLISM: -- Calcitriol therapy has been started -- Patient is being given Ergocalciferol to replete Vitamin D2 stores
[2016-10-18] MEDS: HEPARIN SOD (PORCINE) 1000 UNIT/ML 10 ML VIAL IV SCH ×8 (13:38→18:07)
[2016-10-18] MEDS: FUROSEMIDE INJ 80 MG in SYRINGE 0 ML IV SCH ×2 (13:39→20:38)
[2016-10-18] MEDS: METOPROLOL TARTRATE 50 MG TAB PO SCH ×2 (13:41→21:25)
[2016-10-18] MEDS: METOPROLOL TARTRATE 100 MG TAB PO SCH ×2 (13:42→20:39)
--- NOTE | 2016-10-18 14:54 | Dialysis Progress Note ---
Hemodialysis Note Date of Service Oct 18, 2016. Chief Complaint Follow up evaluation of this patient admitted with advanced CKD and tense LE edema with cellulitis Subjective Mr. Quinonez was seen & examined during HD this am. His IJ THC is functioning well. He had his left wrist AVF created 10/16/[address] Solomon. AVF has a + bruit. Mr. Quinonez voices no medical concerns at this time. He notes that his lower extremity edema is improved. He hopes to start outpatient HD at [facility] on Friday10/22/16 Review of Systems Constitutional: No fever Cardiovascular: No chest pain Respiratory: No dyspnea at rest Abdomen: No nausea, No pain, No vomiting Extremities: + leg edema A complete review of systems was performed. Pertinent positives are noted above. All other systems are negative. Vital Signs Last 8 Hrs Date Time Temp Pulse Resp B/P Pulse Ox O2 Delivery O2 Flow Rate FiO2 10/18/16 12:30 58 187/87 10/18/16 12:15 63 180/83 10/18/16 12:00 58 186/87 10/18/16 11:45 58 172/86 10/18/16 11:30 58 180/81 10/18/16 11:15 57 174/83 10/18/16 11:00 57 182/88 10/18/16 10:45 58 181/85 10/18/16 10:30 57 177/83 10/18/16 10:00 59 169/77 10/18/16 09:45 58 154/77 10/18/16 09:30 58 157/69 10/18/16 09:15 58 163/77 10/18/16 09:03 62 159/68 10/18/16 08:53 93 Room Air 10/18/16 08:15 Room Air 10/18/16 07:39 36.7 65 17 174/75 93 Room Air I & O 24-Hour Column 10/18/16 08:00 Intake Total 580 ml Balance 580 ml Last Recorded Weight Weight (Kilograms): 174.200 Physical Exam General Appearance: no apparent distress Head: normocephalic, atraumatic Eyes: PERRL, EOMI Neck: no adenopathy Respiratory/Chest: lungs clear Cardiovascular: regular rate, rhythm Abdomen/GI: normal bowel sounds, non tender, soft Extremities/Musculoskelatal: + pertinent finding (1+ pretibial pitting edema) Neurologic/Psych: alert Social History Smokeless Tobacco Use: No Drug Use: none Occupation: employed Laboratory Results Past 24 Hours 10/18/16 06:16 Test 10/18/16 06:16 Anion Gap 12.0 mmol/L (3-11) Est Creatinine Clear Calc Drug Dose 31.6 ml/min Estimated GFR () 16.4 Estimated GFR (Non- 14.2 BUN/Creatinine Ratio 9.2 (10-20) Calcium Level 8.3 mg/dl (8.5-10.1) Allergies Coded Allergies: No Known Allergies (Unverified , 09/30/16) Medications Current Inpatient Medications Medications (Trade) Dose Ordered Sig/Chavez Route Start Time Stop Time Status Last Admin Dose Admin Acetaminophen (Tylenol Tab) 650 mg Q4H PRN PO 09/30/16 19:15 10/30/16 19:14 10/17/16 23:37 650 MG Zolpidem Tartrate (Ambien Tab) 5 mg HSZ PRN PO 09/30/16 19:15 10/30/16 19:14 Ondansetron HCl (Zofran Inj) 4 mg Q6H PRN IV 09/30/16 19:30 10/30/16 19:29 Glucose (Glucose 40% Gel) UD PRN PO 09/30/16 19:30 10/30/16 19:29 Glucose (Glucose Chew Tab) 1 tabs UD PRN PO 09/30/16 19:30 10/30/16 19:29 Dextrose (Dextrose 50% 50ML Syringe) 50 ml UD PRN IV 09/30/16 19:30 10/30/16 19:29 Glucagon (Glucagon Inj) 1 mg UD PRN SQ 09/30/16 19:30 10/30/16 19:29 Hydralazine HCl (HydrALAZINE INJ) 10 mg Q4H PRN IV. 09/30/16 19:45 10/30/16 19:44 10/14/16 23:42 10 MG Miconazole Nitrate (Desenex Powder) 1 appln QS PRN EXT 10/01/16 20:45 10/31/16 20:44 10/10/16 07:30 1 APPLN Calcitriol (Rocaltrol Cap) 0.25 mcg QAM PO 10/03/16 09:00 11/02/16 08:59 10/18/16 08:08 0.25 MCG Ergocalciferol (Vitamin D Cap) 50,000 interunit Q7D PO 10/03/16 09:00 12/19/16 09:01 10/17/16 07:53 50,000 INTERUNIT Metoprolol Tartrate (Lopressor Tab) 100 mg BID PO 10/04/16 21:00 11/03/16 20:59 10/18/16 13:42 100 MG Docusate Sodium (coLACE CAP) 100 mg BID PO 10/05/16 21:00 11/04/16 20:59 10/15/16 07:39 100 MG Polyethylene (Miralax Powder Packet) 17 gm DAILY PRN PO 10/05/16 09:15 11/04/16 09:14 Vitamin B Complex/ Vit C/Folic Acid (Nephrocaps) 1 cap QAM PO 10/07/16 09:00 11/06/16 08:59 10/18/16 08:07 1 CAP Heparin Sodium (Porcine) (Heparin Sq 5000 Unit/0.5ml) 5,000 unit Q12 SQ 10/07/16 21:00 11/06/16 20:59 Future hold 10/18/16 08:12 5,000 UNIT Metoprolol Tartrate 50 mg 50 mg BID PO 10/10/16 21:00 11/09/16 20:59 10/18/16 13:41 50 MG Furosemide/Syringe (Lasix Inj/ Syringe) 8 ml @ 4 mls/min BID IV 10/12/16 21:00 11/11/16 20:59 10/18/16 13:39 4 MLS/MIN Hydralazine HCl 100 mg 100 mg 3XDQ4 PO 10/13/16 16:00 11/12/16 15:59 10/18/16 13:41 100 MG Ceftriaxone Sodium/Dextrose (Rocephin Inj/ Dextrose Add-[place] 50ML) 50 ml @ 100 mls/hr Q24H IV 10/15/16 16:30 10/23/16 16:29 10/17/16 15:53 100 MLS/HR Oxycodone/ Acetaminophen (Percocet 5-325mg Tab) 1 tab Q4H PRN PO 10/16/16 12:30 10/30/16 12:29 Heparin Sodium (Porcine) (Heparin Iv Bolus) 2,000 unit DURINGDIALYSIS IV 10/18/16 06:00 10/18/16 18:00 Heparin Sodium (Porcine) (Heparin Iv Bolus) 1,000 unit Q1H IV 10/18/16 06:00 10/18/16 18:00 Heparin Sodium (Porcine) (Heparin Iv Bolus) 2,000 unit 0600 IV 10/19/16 06:00 10/19/16 14:00 Heparin Sodium (Porcine) (Heparin Iv Bolus) 1,000 unit Q1H IV 10/19/16 06:00 10/19/16 07:01 Impression (1) STEVE (acute kidney injury) (2) Metabolic acidosis (3) Hypertension (4) Anemia (5) Bilateral lower leg cellulitis (6) Anasarca (7) Secondary hyperparathyroidism of renal origin (8) Nephrotic syndrome Mr. Quinonez is a 56 year old male w/ HTN, T2DM and morbid obesity (BMI 61). He was admitted to the hospital with bilateral lower extremity cellulitis and anasarca. His lower extremity wound culture was positive for MSSA. Blood culture was negative. He has nephrotic range proteinuria, small kidneys w/ cortical thinning on US. Clinical presentation consistent with advanced CKD progression to ESRD requiring dialysis for volume management and clearance. Right IJ HD permcath placed 10/08/16. First HD treatment 10/09/16. Left wrist AVF created 10/16/[address] Solomon. Recommendations END STAGE RENAL DISEASE: -- Patient is medically stable on HD. No change to current HD prescription at this time. -- L arm AVF with + bruit. Left hand remains well perfused -- Outpatient HD scheduled to start 10/22/16 in [place], [place] -- Continue furosemide to encourage UOP (patient still makes urine) -- Will schedule next HD for tomorrow morning to place patient on TTS schedule in preparation for outpatient HD HYPERTENSION: -- Continue Hydralazine, Lasix and Metoprolol for BP management ANEMIA: -- IV iron completed -- Procrit held for Hgb >11 BONE & MINERAL METABOLISM: -- Calcitriol therapy has been started -- Patient is being given Ergocalciferol to replete Vitamin D2 stores
--- NOTE | 2016-10-18 14:55 | Progress Note ---
Subjective Date of Service: Oct 18, 2016. Subjective Pt evaluation today including: conversation w/ patient, physical exam, chart review, lab review Problem List Medical Problems: (1) CHF exacerbation Status: Acute Review of Systems Constitutional: No chills, No fatigue, No fever, No problem reported, No see HPI, No sweats, No weakness, No weight loss Eyes: No diplopia, No discharge, No eye pain, No problem reported, No redness, No see HPI, No worsening of vision ENT: No dental problems, No hearing loss, No nasal symptoms, No problem reported, No see HPI, No sore throat, No tinnitus, No trouble swallowing, No unusual epistaxis Respiratory: No cough, No dyspnea at rest, No dyspnea on exertion, No hemoptysis, No problem reported, No see HPI, No shortness of breath, No sputum, No wheezing Cardiac: No PND, No chest pain, No claudication, No edema, No orthopnea, No palpitations, No problem reported, No see HPI Breast: No breast lump, No breast pain, No change in shape, No nipple discharge , No problem reported, No see HPI Abdomen: No GI bleeding, No constipation, No diarrhea, No nausea, No pain, No problem reported, No see HPI, No vomiting Musculoskeletal: No calf pain, No joint pain, No muscle pain, No problem reported, No see HPI, No swelling Male : No dysuria, No hematuria, No incontinence, No nocturia more than once/ night, No problem reported, No see HPI, No sexual dysfunction, No slowing stream , No urinary frequency Neurologic: No balance problems, No memory loss, No numbness/tingling, No paralysis, No problem reported, No see HPI, No vertigo, No weakness Psychiatric: No anhedonism, No anxiety, No depression symptoms, No insomnia, No problem reported, No see HPI, No substance abuse Heme: No abnormal bleeding/bruising, No clotting problems, No night sweats, No problem reported, No see HPI, No swollen lymph nodes Endo: No excessive thirst, No excessive urination, No fatigue, No problem reported, No see HPI Skin: No bleeding, No color change, No itch, No new/changing skin lesions, No problem reported, No rash, No see HPI Medications Current Inpatient Medications Medications (Trade) Dose Ordered Sig/Chavez Route Start Time Stop Time Status Last Admin Dose Admin Acetaminophen (Tylenol Tab) 650 mg Q4H PRN PO 09/30/16 19:15 10/30/16 19:14 10/17/16 23:37 650 MG Zolpidem Tartrate (Ambien Tab) 5 mg HSZ PRN PO 09/30/16 19:15 10/30/16 19:14 Ondansetron HCl (Zofran Inj) 4 mg Q6H PRN IV 09/30/16 19:30 10/30/16 19:29 Glucose (Glucose 40% Gel) UD PRN PO 09/30/16 19:30 10/30/16 19:29 Glucose (Glucose Chew Tab) 1 tabs UD PRN PO 09/30/16 19:30 10/30/16 19:29 Dextrose (Dextrose 50% 50ML Syringe) 50 ml UD PRN IV 09/30/16 19:30 10/30/16 19:29 Glucagon (Glucagon Inj) 1 mg UD PRN SQ 09/30/16 19:30 10/30/16 19:29 Hydralazine HCl (HydrALAZINE INJ) 10 mg Q4H PRN IV. 09/30/16 19:45 10/30/16 19:44 10/14/16 23:42 10 MG Miconazole Nitrate (Desenex Powder) 1 appln QS PRN EXT 10/01/16 20:45 10/31/16 20:44 10/10/16 07:30 1 APPLN Calcitriol (Rocaltrol Cap) 0.25 mcg QAM PO 10/03/16 09:00 11/02/16 08:59 10/18/16 08:08 0.25 MCG Ergocalciferol (Vitamin D Cap) 50,000 interunit Q7D PO 10/03/16 09:00 12/19/16 09:01 10/17/16 07:53 50,000 INTERUNIT Metoprolol Tartrate (Lopressor Tab) 100 mg BID PO 10/04/16 21:00 11/03/16 20:59 10/18/16 13:42 100 MG Docusate Sodium (coLACE CAP) 100 mg BID PO 10/05/16 21:00 11/04/16 20:59 10/15/16 07:39 100 MG Polyethylene (Miralax Powder Packet) 17 gm DAILY PRN PO 10/05/16 09:15 11/04/16 09:14 Vitamin B Complex/ Vit C/Folic Acid (Nephrocaps) 1 cap QAM PO 10/07/16 09:00 11/06/16 08:59 10/18/16 08:07 1 CAP Heparin Sodium (Porcine) (Heparin Sq 5000 Unit/0.5ml) 5,000 unit Q12 SQ 10/07/16 21:00 11/06/16 20:59 Future hold 10/18/16 08:12 5,000 UNIT Metoprolol Tartrate 50 mg 50 mg BID PO 10/10/16 21:00 11/09/16 20:59 10/18/16 13:41 50 MG Furosemide/Syringe (Lasix Inj/ Syringe) 8 ml @ 4 mls/min BID IV 10/12/16 21:00 11/11/16 20:59 10/18/16 13:39 4 MLS/MIN Hydralazine HCl 100 mg 100 mg 3XDQ4 PO 10/13/16 16:00 11/12/16 15:59 10/18/16 13:41 100 MG Ceftriaxone Sodium/Dextrose (Rocephin Inj/ Dextrose Add-[place] 50ML) 50 ml @ 100 mls/hr Q24H IV 10/15/16 16:30 10/23/16 16:29 10/17/16 15:53 100 MLS/HR Oxycodone/ Acetaminophen (Percocet 5-325mg Tab) 1 tab Q4H PRN PO 10/16/16 12:30 10/30/16 12:29 Heparin Sodium (Porcine) (Heparin Iv Bolus) 2,000 unit DURINGDIALYSIS IV 10/18/16 06:00 10/18/16 18:00 Heparin Sodium (Porcine) (Heparin Iv Bolus) 1,000 unit Q1H IV 10/18/16 06:00 10/18/16 18:00 Heparin Sodium (Porcine) (Heparin Iv Bolus) 2,000 unit 0600 IV 10/19/16 06:00 10/19/16 14:00 Heparin Sodium (Porcine) (Heparin Iv Bolus) 1,000 unit Q1H IV 10/19/16 06:00 10/19/16 07:01 Objective Vital Signs Date Time Temp Pulse Resp B/P Pulse Ox O2 Delivery O2 Flow Rate FiO2 10/18/16 12:30 58 187/87 10/18/16 12:15 63 180/83 10/18/16 12:00 58 186/87 10/18/16 11:45 58 172/86 10/18/16 11:30 58 180/81 10/18/16 11:15 57 174/83 10/18/16 11:00 57 182/88 10/18/16 10:45 58 181/85 10/18/16 10:30 57 177/83 10/18/16 10:00 59 169/77 10/18/16 09:45 58 154/77 10/18/16 09:30 58 157/69 10/18/16 09:15 58 163/77 10/18/16 09:03 62 159/68 10/18/16 08:53 93 Room Air 10/18/16 08:15 Room Air 10/18/16 07:39 36.7 65 17 174/75 93 Room Air 10/17/16 23:25 Room Air 10/17/16 23:12 36.5 58 18 156/82 96 Room Air 10/17/16 21:08 75 152/62 10/17/16 17:30 129/69 10/17/16 15:20 96 Room Air 10/17/16 14:59 36.8 75 18 161/75 96 Room Air Physical Exam General Appearance: no apparent distress Eyes: normal inspection, EOMI ENT: normal ENT inspection, hearing grossly normal Neck: supple Respiratory/Chest: chest non-tender, lungs clear, normal breath sounds, no respiratory distress, no accessory muscle use Cardiovascular: regular rate, rhythm, no edema, no gallop, no JVD, no murmur Abdomen: normal bowel sounds, non tender, soft, no organomegaly Extremities: normal range of motion, non-tender, normal inspection, no pedal edema 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/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, no motor/sensory deficits, alert, normal mood/affect, oriented x 3 Skin: normal color, warm/dry, + pertinent finding (B/L feet has oozing superficial ulcers) Laboratory Results Last 24 Hours Test 10/18/16 06:16 Sodium Level 137 mmol/L Potassium Level 3.8 mmol/L Chloride Level 104 mmol/L Carbon Dioxide Level 21 mmol/L Anion Gap 12.0 mmol/L Blood Urea Nitrogen 40 mg/dl Creatinine 4.40 mg/dl Est Creatinine Clear Calc Drug Dose 31.6 ml/min Estimated GFR () 16.4 Estimated GFR (Non- 14.2 BUN/Creatinine Ratio 9.2 Random Glucose 120 mg/dl Calcium Level 8.3 mg/dl Assessment and Plan ESRD S/P Left Wrist Arteriovenous Fistula, tolerated procedure well, site looks clean , will follow up on it as an out patient in 4 weeks as per assistant pressman, HD and electrolyte management scheduled as out patient dialysis 10/22 can be dialyzed tomorrow then discharged as per assistant pressman PVD, lower ext neuropathy, feet ulcers, STEVE 0.88 on left and 0.77 on right, since going to AVF he can not be on antiplatelets now, we will have to wait, mean while feet ulcer grew MSSA , will treat with CTXN especially that he will get an AVF, wound care Ceftriaxone for lower Ext ulcers (cultures from 09/30 growing MSSA) acute on chronic grade 2 diastolic CHF exacerbation upon admission -- volume overload due to renal failure, continue dialysis to remove fluid, continue lasix HTN, Continue Hydralazine, Lasix and Metoprolol Anemia; likely of chronic diseases, giving IV iron completed , Procrit held for Hgb >11 as per assistant pressman, also given Calcitriol therapy for bones metabolism Elevated troponin upon admission, likely because of mismatch and demanding ischemia, and ESRD making for poor clearance. no evidence of acs Bilateral lower extremity cellulitis stable and improved off abx Morbid obesity type 2 diabetes, A1c 6.7 - diet controlled Significant vitamin D deficiency, start vitamin D replacement 50,000 unit by mouth every week any time 6 week, and then 1000 unit by mouth daily
[2016-10-18] MEDS: CEFTRIAXONE SOD INJ 1 GM in DEXTROSE 5% ADD-VANTAGE 50ML 50 ML IV SCH (15:49)
[2016-10-18] MEDS: HydrALAZINE HCL 20 MG/ML VIAL IV. PRN (23:32)
[2016-10-19] VITALS (25 sets, daily range): BP systolic 112–181; BP diastolic 55–79; PULSE 53–80; TEMP 36.6–36.9; O2SAT 93–97
[2016-10-19] MEDS ORDERED: HEPARIN SOD (PORCINE) 1000 UNIT/ML 10 ML VIAL IV SCH ×2 (06:00)
[2016-10-19 06:36] LABS: HEMATOCRIT 37.1 % (42-52); MEAN CELL VOLUME 84.9 fL (80-100); MEAN CORPUSCULAR HEMOGLOBIN 26.5 pg (25-34); MEAN CORPUSCULAR HGB CONC 31.3 g/dl (32-36); MEAN PLATELET VOLUME 10.7 fL (7.4-10.4); PLATELET COUNT 205 K/uL (130-400); RED BLOOD COUNT 4.37 M/uL (4.7-6.1); WHITE BLOOD COUNT 2.76 K/uL (4.8-10.8)
[2016-10-19 07:10] LABS: BUN/CREATININE RATIO 7.9 (10-20); CALCIUM 8.3 mg/dl (8.5-10.1); CREATININE 3.6 mg/dl (0.60-1.40); POTASSIUM 3.8 mmol/L (3.5-5.1)
--- NOTE | 2016-10-19 09:10 | Discharge Instructions ---
Discharge Instructions Admission Admission Date: Sep 30, 2016 at 19:15 Admission Diagnosis: Anasarca, Bilateral Lower Leg Cellulitis. Discharge Care Plan - Problem: Medical Problems: (1) CHF exacerbation 2 ESRD 3 moderate PVD 4 B/L lower Ext wounds Care Plan - Goal(s): Improve function Care Plan - Instructions: Recommended Home Diet: Renal, Type 2 Diabetes Provider Instructions: follow up with wound care clinic follow up with PCP regarding repeat blood work in one week VTE Core Measure Inpt VTE Proph given/why not?: Unfractionated heparin SQ Laboratory Results Test Results: Hemoglobin A1c Test 10/02/16 05:58 Range/Units Estimated Average Glucose 146 mg/dl Hemoglobin A1c 6.7 H 4.5-5.6 % Lipid Panel Test 10/02/16 05:58 Range/Units Triglycerides Level 90 0-150 mg/dl Cholesterol Level 135 0-200 mg/dl HDL Cholesterol 44 mg/dl Cholesterol/HDL Ratio 3.1 LDL Cholesterol, Calculated 73 mg/dl Torres Morales Recommendations: Call your doctor if: * Temperature above 101 degrees * Pain not relieved by pain medicine ordered * There is increased drainage or redness from any incision * You have any unanswered questions or concerns. Your Doctors Instructions noted above were prepared by provider Zhane Sánchez.
[2016-10-19] MEDS ORDERED: VTMD PO (09:21)
[2016-10-19] MEDS ORDERED: FURO40TA3 PO ×2 (09:21→11:06)
[2016-10-19] MEDS ORDERED: MRLP17X PO (09:21)
[2016-10-19] MEDS ORDERED: CEFD1CAP14 PO (09:21)
[2016-10-19] MEDS ORDERED: B-COCAP20 PO (09:21)
[2016-10-19] MEDS ORDERED: RCL25 PO (09:21)
[2016-10-19] MEDS ORDERED: METO50TA17 PO (09:21)
[2016-10-19] MEDS ORDERED: AMLO-114 PO (09:21)
[2016-10-19] MEDS ORDERED: OXYC-57 PO (09:21)
[2016-10-19] MEDS ORDERED: HYDR100T12 PO (09:21)
[2016-10-19] MEDS: DOCUSATE SODIUM 100 MG CAP PO SCH (10:34)
[2016-10-19] MEDS: HEPARIN SOD 5000 UNIT/0.5 ML CARP SQ SCH (10:35)
[2016-10-19] MEDS: METOPROLOL TARTRATE 50 MG TAB PO SCH (10:36)
[2016-10-19] MEDS: NEPHROCAPS PO SCH (10:37)
[2016-10-19] MEDS: METOPROLOL TARTRATE 100 MG TAB PO SCH (10:37)
[2016-10-19] MEDS: CALCITRIOL 0.25 MCG CAP PO SCH (10:38)
[2016-10-19] MEDS: FUROSEMIDE INJ 80 MG in SYRINGE 0 ML IV SCH ×2 (10:39→10:42)
[2016-10-19] MEDS ORDERED: LISINOPRIL 40 MG TAB PO SCH (11:00)
[2016-10-19] MEDS ORDERED: LSN40 PO (11:06)
[2016-10-19 11:08] LABS: BASO % 1.1 %; BASO ABS # 0.03 K/uL (0-0.2); COMPLETE YES; EOS % 4.6 %; HEMATOCRIT 37.8 % (42-52); LYMPH ABS # 0.85 K/uL (1.2-3.4); MEAN CELL VOLUME 83.1 fL (80-100); MEAN CORPUSCULAR HEMOGLOBIN 26.8 pg (25-34); MEAN CORPUSCULAR HGB CONC 32.3 g/dl (32-36); MEAN PLATELET VOLUME 9.9 fL (7.4-10.4); MONO % 18.4 %; NEUT % 45.9 %; PLATELET COUNT 142 K/uL (130-400); RED BLOOD COUNT 4.55 M/uL (4.7-6.1); WHITE BLOOD COUNT 2.83 K/uL (4.8-10.8)
[2016-10-19] MEDS ORDERED: LISINOPRIL 20 MG TAB PO ONE (12:00)
--- NOTE | 2016-10-19 12:05 | Dialysis Progress Note ---
Hemodialysis Note Date of Service Oct 19, 2016. Chief Complaint F/U for end-stage renal disease. Subjective Danielito was seen and examined during dialysis. tolerating dialysis well, denies any dizziness, lightheadedness, leg cramp. Denies shortness of breath or chest pain. Appetite seems to be decent. Tunnel dialysis catheter working well, had AV fistula placed. Review of Systems A complete review of systems was performed. Pertinent positives are noted above. All other systems are negative. Vital Signs Last 8 Hrs Date Time Temp Pulse Resp B/P Pulse Ox O2 Delivery O2 Flow Rate FiO2 10/19/16 10:32 60 176/78 10/19/16 10:20 36.9 76 181/72 10/19/16 10:00 72 175/69 10/19/16 09:45 75 177/71 10/19/16 09:30 68 169/71 10/19/16 09:15 62 160/66 10/19/16 09:00 66 165/57 10/19/16 08:45 68 170/67 10/19/16 08:30 71 164/75 10/19/16 08:15 62 155/67 10/19/16 08:00 57 163/77 10/19/16 07:45 57 178/79 10/19/16 07:30 80 178/68 10/19/16 07:15 57 157/68 10/19/16 07:00 61 164/63 10/19/16 06:45 60 160/57 10/19/16 06:30 53 149/55 10/19/16 06:15 57 163/69 10/19/16 06:00 58 159/77 10/19/16 05:50 36.7 56 168/74 10/19/16 05:33 36.6 62 16 172/73 97 Room Air I & O 24-Hour Column 10/19/16 08:00 Intake Total 880 ml Balance 880 ml Last Recorded Weight Weight (Kilograms): 174.200 Physical Exam GENERAL: Middle-aged male, morbidly obese, , AAA x 3, pleasant, healthy- appearing, not in any distress. NECK: Supple, no JVD. RESPIRATORY: Normal breathing efforts, no accessory muscle use, clear to auscultation bilaterally, no wheezes or rales. CARDIOVASCULAR: S1, S2 normal, rate rhythm regular. EXTREMITY: No lower extremity edema NEURO: speech fluent. PSYCHIATRY: Normal mood and judgment Social History Smokeless Tobacco Use: No Drug Use: none Occupation: employed Laboratory Results Past 24 Hours 10/19/16 05:46 10/19/16 10:57 Red Blood Count 4.55, Mean Corpuscular Volume 83.1, Mean Corpuscular Hemoglobin 26.8, Mean Corpuscular Hemoglobin Concent 32.3, Mean Platelet Volume 9.9, Neutrophils (%) (Auto) 45.9, Lymphocytes (%) (Auto) 30.0, Monocytes (%) (Auto) 18.4, Eosinophils (%) (Auto) 4.6, Basophils (%) (Auto) 1.1, Neutrophils # (Auto ) 1.30, Lymphocytes # (Auto) 0.85, Monocytes # (Auto) 0.52, Eosinophils # (Auto ) 0.13, Basophils # (Auto) 0.03 10/19/16 05:46 Test 10/19/16 05:46 10/19/16 10:57 Red Blood Count 4.37 M/uL (4.7-6.1) 4.55 M/uL (4.7-6.1) Mean Corpuscular Volume 84.9 fL (80-100) 83.1 fL (80-100) Mean Corpuscular Hemoglobin 26.5 pg (25-34) 26.8 pg (25-34) Mean Corpuscular Hemoglobin Concent 31.3 g/dl (32-36) 32.3 g/dl (32-36) RDW Standard Deviation 58.9 fL (36.4-46.3) 57.0 fL (36.4-46.3) RDW Coefficient of Variation 18.9 % (11.5-14.5) 18.8 % (11.5-14.5) Mean Platelet Volume 10.7 fL (7.4-10.4) 9.9 fL (7.4-10.4) Anion Gap 8.0 mmol/L (3-11) Est Creatinine Clear Calc Drug Dose 38.6 ml/min Estimated GFR () 20.9 Estimated GFR (Non- 18.1 BUN/Creatinine Ratio 7.9 (10-20) Calcium Level 8.3 mg/dl (8.5-10.1) White Blood Count 2.83 K/uL (4.8-10.8) Hemoglobin 12.2 g/dL (14.0-18.0) Hematocrit 37.8 % (42-52) Platelet Count 142 K/uL (130-400) Neutrophils (%) (Auto) 45.9 % Lymphocytes (%) (Auto) 30.0 % Monocytes (%) (Auto) 18.4 % Eosinophils (%) (Auto) 4.6 % Basophils (%) (Auto) 1.1 % Neutrophils # (Auto) 1.30 K/uL (1.4-6.5) Lymphocytes # (Auto) 0.85 K/uL (1.2-3.4) Monocytes # (Auto) 0.52 K/uL (0.11-0.59) Eosinophils # (Auto) 0.13 K/uL (0-0.5) Basophils # (Auto) 0.03 K/uL (0-0.2) Immature Granulocyte % (Auto) 0.0 % Immature Granulocyte # (Auto) 0.00 K/uL (0.00-0.02) Allergies Coded Allergies: No Known Allergies (Unverified , 09/30/16) Medications Current Inpatient Medications Medications (Trade) Dose Ordered Sig/Chavez Route Start Time Stop Time Status Last Admin Dose Admin Acetaminophen (Tylenol Tab) 650 mg Q4H PRN PO 09/30/16 19:15 10/30/16 19:14 10/17/16 23:37 650 MG Zolpidem Tartrate (Ambien Tab) 5 mg HSZ PRN PO 09/30/16 19:15 10/30/16 19:14 Ondansetron HCl (Zofran Inj) 4 mg Q6H PRN IV 09/30/16 19:30 10/30/16 19:29 Glucose (Glucose 40% Gel) UD PRN PO 09/30/16 19:30 10/30/16 19:29 Glucose (Glucose Chew Tab) 1 tabs UD PRN PO 09/30/16 19:30 10/30/16 19:29 Dextrose (Dextrose 50% 50ML Syringe) 50 ml UD PRN IV 09/30/16 19:30 10/30/16 19:29 Glucagon (Glucagon Inj) 1 mg UD PRN SQ 09/30/16 19:30 10/30/16 19:29 Hydralazine HCl (HydrALAZINE INJ) 10 mg Q4H PRN IV. 09/30/16 19:45 10/30/16 19:44 10/18/16 23:32 10 MG Miconazole Nitrate (Desenex Powder) 1 appln QS PRN EXT 10/01/16 20:45 10/31/16 20:44 10/10/16 07:30 1 APPLN Calcitriol (Rocaltrol Cap) 0.25 mcg QAM PO 10/03/16 09:00 11/02/16 08:59 10/19/16 10:38 0.25 MCG Ergocalciferol (Vitamin D Cap) 50,000 interunit Q7D PO 10/03/16 09:00 12/19/16 09:01 10/17/16 07:53 50,000 INTERUNIT Metoprolol Tartrate (Lopressor Tab) 100 mg BID PO 10/04/16 21:00 11/03/16 20:59 10/19/16 10:37 100 MG Docusate Sodium (coLACE CAP) 100 mg BID PO 10/05/16 21:00 11/04/16 20:59 10/18/16 20:38 100 MG Polyethylene (Miralax Powder Packet) 17 gm DAILY PRN PO 10/05/16 09:15 11/04/16 09:14 Vitamin B Complex/ Vit C/Folic Acid (Nephrocaps) 1 cap QAM PO 10/07/16 09:00 11/06/16 08:59 10/19/16 10:37 1 CAP Heparin Sodium (Porcine) (Heparin Sq 5000 Unit/0.5ml) 5,000 unit Q12 SQ 10/07/16 21:00 11/06/16 20:59 Future hold 10/18/16 20:41 5,000 UNIT Metoprolol Tartrate 50 mg 50 mg BID PO 10/10/16 21:00 11/09/16 20:59 10/19/16 10:36 50 MG Furosemide/Syringe (Lasix Inj/ Syringe) 8 ml @ 4 mls/min BID IV 10/12/16 21:00 11/11/16 20:59 10/18/16 20:38 4 MLS/MIN Hydralazine HCl 100 mg 100 mg 3XDQ4 PO 10/13/16 16:00 11/12/16 15:59 10/18/16 15:49 100 MG Ceftriaxone Sodium/Dextrose (Rocephin Inj/ Dextrose Add-[place] 50ML) 50 ml @ 100 mls/hr Q24H IV 10/15/16 16:30 10/23/16 16:29 10/18/16 15:49 100 MLS/HR Oxycodone/ Acetaminophen (Percocet 5-325mg Tab) 1 tab Q4H PRN PO 10/16/16 12:30 10/30/16 12:29 Heparin Sodium (Porcine) (Heparin Iv Bolus) 2,000 unit 0600 IV 10/19/16 06:00 10/19/16 14:00 Lisinopril (Zestril Tab) 40 mg QAM PO 10/19/16 11:00 11/18/16 10:59 10/19/16 11:02 40 MG Impression (1) STEVE (acute kidney injury) (2) Metabolic acidosis (3) Hypertension (4) Anemia (5) Bilateral lower leg cellulitis (6) Anasarca (7) Secondary hyperparathyroidism of renal origin (8) Nephrotic syndrome Mr. Quinonez is a 56 year old male w/ HTN, T2DM and morbid obesity (BMI 61). He was admitted to the hospital with bilateral lower extremity cellulitis and anasarca. His lower extremity wound culture was positive for MSSA. Blood culture was negative. He has nephrotic range proteinuria, small kidneys w/ cortical thinning on US. Clinical presentation consistent with advanced CKD progression to ESRD requiring dialysis for volume management and clearance. Right IJ HD permcath placed 10/08/16. First HD treatment 10/09/16. Left wrist AVF created 10/16/[address] Solomon. Recommendations END STAGE RENAL DISEASE: -- currently tolerating dialysis well, continue on Friday, , Friday. Okay to be discharged after dialysis to day, next dialysis scheduled up for Friday at [facility] -- L arm AVF with + bruit. Left hand remains well perfused -- Outpatient HD scheduled to start 10/22/16 in [place], [place] -- Continue furosemide to encourage UOP (patient still makes urine) -- Will schedule next HD for tomorrow morning to place patient on TTS schedule in preparation for outpatient HD HYPERTENSION: -- Continue Hydralazine, Lasix and Metoprolol for BP management -- start on lisinopril 40 milligram p.o. daily and continue on discharge ANEMIA: -- IV iron completed -- Procrit held for Hgb >11 BONE & MINERAL METABOLISM: -- Calcitriol therapy has been started -- Patient is being given Ergocalciferol to replete Vitamin D2 stores
--- NOTE | 2016-10-19 16:03 | Discharge Summary ---
Discharge Summary Date of Service Oct 19, 2016. Discharge Summary Admission Date: Sep 30, 2016 at 19:15 Discharge Date: Oct 19, 2016 Discharge Disposition: Home Principal Diagnosis: ESRD initiated dialysis Problems/Secondary Diagnoses: ESRD PVD, lower ext neuropathy, feet ulcers, acute on chronic grade 2 diastolic CHF exacerbation upon admission HTN Anemia; likely of chronic diseases Elevated troponin upon admission Bilateral lower extremity cellulitis Morbid obesity type 2 diabetes Significant vitamin D deficiency Medication Reconciliation New Medications: Amlodipine (Norvasc) 10 Mg Tab 10 MG PO DAILY for 30 Days, #30 TAB Cefdinir (Omnicef) 300 Mg Cap 300 MG PO Q24H for 4 Days, #4 CAP Furosemide (Lasix) 40 Mg Tab 80 MG PO BID for 30 Days, #120 TAB Hydralazine Hcl (Apresoline) 100 Mg Tab 1 TAB PO TID for 30 Days, #90 TAB 5 Refills B-Complex W/ C & Folic Acid (Renal) 1 Cap Cap 1 CAP PO QAM for 30 Days, #30 CAP Calcitriol (Calcitriol) 0.25 Mcg Cap 0.25 MCG PO QAM for 30 Days, #30 CAP Ergocalciferol (Vitamin D) 50,000 Interunit Cap 92185 INTERUNIT PO Q7D for 30 Days, #12 CAP Lisinopril (Lisinopril) 40 Mg Tab 40 MG PO QAM for 30 Days, #30 TAB Metoprolol Tartrate (Metoprolol Tartrate) 50 Mg Tab 50 MG PO BID for 30 Days, #60 TAB Oxycodone/Acetaminophen 5MG/325MG (Percocet 5MG/325MG) Tab 1 TAB PO Q4H PRN for Pain for 30 Days, #12 TAB PAIN Polyethylene (Miralax) 17 Gm Pow 17 GM PO DAILY PRN for Constipation for 30 Days, #30 PKT Discharge Exam Review of Systems: Constitutional: No chills, No fatigue, No fever, No problem reported, No sweats, No weakness, No weight loss Eyes: No diplopia, No discharge, No eye pain, No problem reported, No redness, No worsening of vision ENT: No dental problems, No hearing loss, No nasal symptoms, No problem reported, No sore throat, No tinnitus, No trouble swallowing, No unusual epistaxis Respiratory: No cough, No dyspnea at rest, No dyspnea on exertion, No hemoptysis, No problem reported, No shortness of breath, No sputum, No wheezing Cardiovascular: No PND, No chest pain, No claudication, No edema, No orthopnea, No palpitations, No problem reported Abdomen: No GI bleeding, No constipation, No diarrhea, No nausea, No pain, No problem reported, No vomiting Musculoskeletal: No calf pain, No joint pain, No muscle pain, No problem reported, No swelling Genitourinary - Male: No dysuria, No hematuria, No impotence, No lesions, No penile discharge, No problem reported, No urinary frequency, No urinary hesitancy, No urinary incontinence, No urinary retention, No urinary urgency Neurologic: No balance problems, No memory loss, No numbness/tingling, No paralysis, No problem reported, No vertigo, No weakness Psychiatric: No anhedonism, No anxiety, No depression symptoms, No insomnia , No problem reported, No substance abuse Endocrine: No excessive thirst, No excessive urination, No fatigue, No problem reported Hematologic / Lymphatic: No abnormal bleeding/bruising, No clotting problems , No night sweats, No problem reported, No swollen lymph nodes Integumentary: No bleeding, No color change, No itch, No new/changing skin lesions, No problem reported, No rash Hospital Course The patient is a 56-year-old male P/W worsening bilateral lower extremity swelling and pain , dyspnea on exertion, but denies chest pain. He does note areas of weeping in both legs bilaterally. found to have a creatinine of 3.6 which deteriorated to ESRD the flowing problems were dealt with during his hospital stay; PVD, lower ext neuropathy, feet ulcers, STEVE 0.88 on left and 0.77 on right, will have vascular surgical evaluation as an out patient if ulcer do not heal feet ulcer grew MSSA , intially treated with daptomycin 6 mg/kg IV daily, and Zosyn 3.375 mg IV every 12 hours then switched to CTXN that was restarted again prior to his AVF, wound care was initiated in the hospital and will continue after discharge ESRD S/P Left Wrist Arteriovenous Fistula, tolerated procedure well, site looks clean , will follow up on it as an out patient in 4 weeks as per packing supervisor, HD and electrolyte management scheduled as out patient dialysis 10/22 dialyzed today 10/19 acute on chronic grade 2 diastolic CHF exacerbation upon admission -- volume overload due to renal failure, improved with dialysis to remove fluid, also continued on lasix HTN, Controlled with Hydralazine, Lasix and Metoprolol , in the day of discharge lisinopril was added Anemia; likely of chronic diseases, giving IV iron completed , Procrit held for Hgb >11 as per packing supervisor, also given Calcitriol therapy for bones metabolism Elevated troponin upon admission, likely because of mismatch and demanding ischemia, and ESRD making for poor clearance. no evidence of acs Bilateral lower extremity cellulitis stable and improved off abx Morbid obesity type 2 diabetes, A1c 6.7 - diet controlled Significant vitamin D deficiency, started vitamin D replacement 50,000 unit by mouth every week any time 6 week, and then 1000 unit by mouth daily finally today after dialysis was cleared for discharge by packing supervisor. will follow up with PCP, wound care clinic instructed to do sleep study as an out patient for clinically suspected obstructive sleep apnea Total Time Spent: Greater than 30 minutes This includes examination of the patient, discharge planning, medication reconciliation, and communication with other providers. Discharge Instructions Please refer to the electronic Patient Visit Report (Discharge Instructions) for additional information.
[2016-11-04] MEDS ORDERED: CHOLECALCIFEROL 1000 INTER.UNIT TAB PO SCH (09:00)
[2016-11-08] MEDS ORDERED: CHOLECALCIFEROL 1000 INTER.UNIT TAB PO SCH (09:00)
== END 2016-10-19 16:40 | disposition home or self-care (01) | DRG 673 ==
LOC: ENRESERVDT → ENRESERVTM → C.EDB 15:51 → UNDOADMIN 19:12 → C.2T 19:12 → C.MSW 10-06 14:36
PROVIDERS: ADMIT Hospitalist; ATTEND Internal Medicine
PROC: 06H033Z Insertion of Infusion Device into Inferior Vena Cava, Percutaneous Approach (ICD-10-PCS; principal; 2016-10-08 14:45)
PROC: 031C09F Bypass Left Radial Artery to Lower Arm Vein with Autologous Venous Tissue, Open Approach (ICD-10-PCS; 2016-10-16)
DX: N18.6 End stage renal disease (principal); I50.33 Acute on chronic diastolic (congestive) heart failure; Z68.43 Body mass index [BMI] 50.0-59.9, adult; L03.116 Cellulitis of left lower limb; L03.115 Cellulitis of right lower limb; I13.2 Hypertensive heart and chronic kidney disease with heart failure and with stage 5 chronic kidney disease, or end stage renal disease; I11.0 Hypertensive heart disease with heart failure; N17.9 Acute kidney failure, unspecified; E66.01 Morbid (severe) obesity due to excess calories; D63.1 Anemia in chronic kidney disease; E11.22 Type 2 diabetes mellitus with diabetic chronic kidney disease; E55.9 Vitamin D deficiency, unspecified; E11.21 Type 2 diabetes mellitus with diabetic nephropathy; B95.61 Methicillin susceptible Staphylococcus aureus infection as the cause of diseases classified elsewhere; E11.621 Type 2 diabetes mellitus with foot ulcer; E11.40 Type 2 diabetes mellitus with diabetic neuropathy, unspecified; L97.529 Non-pressure chronic ulcer of other part of left foot with unspecified severity; L97.519 Non-pressure chronic ulcer of other part of right foot with unspecified severity; Z91.14 Patient's other noncompliance with medication regimen

== ENCOUNTER 2017-03-10 06:10 | Day surgery (SDC) | payer OTHER ==
[~2017-03-10] VITALS: Ht 185.4 cm; Wt 173.0 kg
[~2017-03-10 06:10] MED LIST: B-COCAP20 PO; CEFAZOLIN 1000MG/55 ML D5W IV SCH; D5W AND 1/4NSS 1000 ML IV SCH; FURO40TA3 PO; HYDR100T12 PO; LSN40 PO; METO50TA17 PO; MRLP17X PO; OXYC-57 PO; RCL25 PO; VTMD PO
--- NOTE | 2017-03-10 06:25 | History and Physical ---
History & Physical Date of Service Mar 10, 2017. History & Physical Chief Complaint Malfunctioning fistula History of Present Illness The patient is a 56 year old male with hx of DMII, HTN, obesity, who has a left upper arm fistula which is not functioning well. He is here for a fistulogram with possible intervention. Denies HERRERA, fever, chills, chest pain, SOB, abd pain , N/V, rest pain, claudication, other complaints. Allergies Coded Allergies: No Known Allergies Home Medications Meds on chart Problem List Medical Problems: (1) Anemia (2) Bilateral lower leg cellulitis (3) Hypertension (4) Metabolic acidosis (5) Nephrotic syndrome (6) Proteinuria (7) Secondary hyperparathyroidism of renal origin Surgical / Medical History Hx Cardiac Surgery: No Hx Abdominal Surgery: No Hx Cancer Surgery: No Hx Thoracic Surgery: No Hx Orthopedic: No Hx Urinary Tract Surgery: No HX Other Surgery: No Past Medical/Surgical History: Diabetes, Hypertension, Kidney Disease Family History Cancer Diabetes mellitus Heart disease Hypertension Kidney disease Kidney stones Lung disease Cancer Diabetes mellitus Heart disease Hypertension Kidney disease Kidney stones Lung disease Social History Smoking Status: Never Smoker Hx Tobacco Use In Past Year?: No Hx Alcohol Use - Type & Amnt: No Hx Substance Use -Type & Amnt: No Review of Systems Constitutional: + malaise, No chills, No fever Skin: + change in color Eyes: No visual changes ENMT: No sore throat Respiratory: + KOENIG, No cough, No hemoptysis, No orthopnea, No short of breath Cardiovascular: + edema, No chest pain, No palpitations, No syncope, No intermittent claudication Gastrointestinal: No abdominal pain, No nausea, No vomiting Neurologic: + weakness, No dizziness, No lethargy, No numbness, No tingling Physical Exam Constitutional: General Apperance: well-nourished, well-developed, obese (morbidly) Level of Distress: NAD, Psychiatric: Mental Status: active & alert, normal mood, normal affect Orientation: oriented except where noted, to time, to place, to person Memory: recent memory normal, remote memory normal Head: normocephalic, atraumatic Eyes: EOM: EOMI ENMT: normal ENT inspection, hearing grossly normal Neck: supple, trachea midline Lungs: Respiratory effort: no dyspnea, good air movement Auscultation: breath sounds normal, no wheezing Cardiovascular: Apical Impulse: not displaced Heart Auscultation: RRR, no rubs, no gallops Peripheral Pulses: Pulses: full and equal, in all extremities except if noted Bruits: none appreciated Carotid Pulse: normal on the left, normal on the right Brachial Pulses: normal on the left, normal on the right Radial Pulse: normal on the left, normal on the right Femoral Pulse: decreased on the left, decreased on the right Posterior Tibialis Pulse: pertinent finding (unable to palpate feet warm, brisk cap refill) Dorsalis Pedis Pulse: pertinent finding (unable to palpate , feet warm, brisk cap refill) Abdomen: Bowel Sounds: normal Inspection & Palpation: soft, no tenderness, guarding & rebound, Musculoskeletal: normal strength (5/5 throughout), normal tone Extremities: Upper Right: no cyanosis, no varicosities, no edema Upper Left: no cyanosis, no varicosities, no palpable cord, no edema Lower Right: no cyanosis, no varicosities, no palpable cord, no edema Lower Left: no cyanosis, no varicosities, no palpable cord, no edema Neurologic: Cranial Nerves: grossly intact Sensation: grossly intact Assessment and Plan ASSESSMENT and PLAN: Malfunctioning left arm fistula Plan: Patient admitted for a fistulogram with possible intervention. I have discussed the risks options and benefits of the procedure with the patient. The patient understands the risks options and benefits and agrees to the procedure.
[2017-03-10 06:29] VITALS: BP 177/88; PULSE 78; TEMP 36.6; O2SAT 97; Ht 185.4 cm; Wt 173.0 kg
[2017-03-10] MEDS ORDERED: CEFAZOLIN 3000 MG/65 ML D5W 65 ML IV SCH (06:55)
[2017-03-10] MEDS ORDERED: MIDAZOLAM HCL 1 MG/ML 2ML VIAL ONE (07:36)
[2017-03-10] MEDS ORDERED: FENTANYL CITRATE INJ 50 MCG/1 ML 2 ML VIAL ONE (07:36)
--- NOTE | 2017-03-10 07:37 | History & Physical Bridge Note ---
H&P Re-Evaluation Bridge Note: I have examined the patient, reviewed the History & Physical and in the interval since the performance of the History & Physical I have noted the following changes of clinical significance: No changes noted
--- NOTE | 2017-03-10 07:37 | Procedure Note ---
Pre-Mod Sedation Assessment General Date of Moderate Sedation: Mar 10, 2017. Vital Signs: Vital Signs Past 12 Hours Date Time Temp Pulse Resp B/P (MAP) Pulse Ox O2 Delivery O2 Flow Rate FiO2 03/10/17 06:29 36.6 78 20 177/88 (117) 97 Room Air Pre-Sedation Airway Assessment Oral Cavity: WNL Hx of Sleep Apnea: No Smoking Status: Never Smoker Mallampati Classification: Class I ASA Classification: Class III Notes The planned sedation has been discussed with the patient and consent obtained. I have identified the patient, determined the appropriateness of sedation and have assessed the patient immediately prior to the procedure. All medicine(s) and interventions are by my order.
[2017-03-10 07:41] VITALS: BP 177/88; PULSE 78; TEMP 36.6; O2SAT 97
[2017-03-10] MEDS ORDERED: LIDOCAINE HCL 1% 20 ML VIAL INJ ONE (08:20)
[2017-03-10] MEDS ORDERED: MIDAZOLAM HCL 1 MG/ML 2ML VIAL IV ONE (08:25)
[2017-03-10] MEDS ORDERED: FENTANYL CITRATE INJ 50 MCG/1 ML 2 ML VIAL IV ONE (08:27)
[2017-03-10] MEDS ORDERED: OPTIRAY 300 IV ONE (08:31)
--- NOTE | 2017-03-10 08:36 | Procedure Note ---
Post-Moderate Sedation Plan General Date of Moderate Sedation Mar 10, 2017. Vital Signs: Vital Signs Past 12 Hours Date Time Temp Pulse Resp B/P (MAP) Pulse Ox O2 Delivery O2 Flow Rate FiO2 03/10/17 07:41 36.6 78 20 177/88 97 Room Air 03/10/17 06:29 36.6 78 20 177/88 (117) 97 Room Air Review - Discharge Plan Post Moderate Sedation Plan: On clinical assessment, the patient appears to have tolerated the conscious sedation without complications. Patient is recovering as anticipated. Patient will continue to be monitored by nursing and may be discharged when conscious sedation discharge criteria are met.
--- NOTE | 2017-03-10 08:37 | [facility] Operative Report ---
Operative Report Operative Date Mar 10, 2017. Pre-Operative Diagnosis Malfunctioning left forearm fistula Post-Operative Diagnosis Same Procedure(s) Performed Fistulogram left forearm fistula, coil embolization of branch, conscious sedation ([id number]) Surgeon Juanito Addresser Surgeon(s) none Estimated Blood Loss 2cc Findings large side branch Specimens none Anesthesia Local with sedation Complication(s) None Disposition Indications This is a 56-year-old male with a left forearm fistula which is not functioning well at dialysis. Fistulogram was recommended he understood the risks options and benefits and agreed to go ahead with this procedure. Description of Procedure The patient was taken to the angiogram suite and placed in the supine position. The left arm was then prepped and draped in a sterile manner. Local anesthetic was administered and a percutaneous puncture was then made of the proximal portion of the left arm AV fistula using micropuncture technique. Micropuncture wire and sheath were then inserted. A fistulogram was then performed. The fistula itself showed a large venous outflow. No evidence of stenosis was seen. In the proximal portion just after the anastomosis there was a large side branch. There was a large amount of blood flow through this branch. Embolization was recommended. An .035 wire was then inserted and the side branch was cannulated. The micropuncture sheath was exchanged to a 5 English sheath. A 5 English angled glide catheter was then inserted into the branch. The wire was then removed. Two 6 mm coils were inserted embolizing the large branch. The 5 English glide cath was then removed. Completion fistulogram showed minimal flow through the side branch. The sheath was then pulled and pressure was applied. Adequate hemostasis was obtained. The patient left the angiogram suite in good condition and tolerated the procedure well. I attest to the content of the Intraoperative Record and any orders documented therein. Any exceptions are noted below.
--- NOTE | 2017-03-10 08:44 | Discharge Instructions ---
Discharge Instructions Date of Service Mar 10, 2017. Visit Reason for Visit: Malfunctioning AV Fistula Discharge Discharge Diagnosis / Problem: Malfunctioning fistula Discharge Goals Goal(s): Therapeutic intervention Activity Recommendations Activity Limitations: resume your previous activity Anesthesia . Post Anesthesia Instructions: If you have had General Anesthesia or IV Sedation: * Do not drive today. * Resume driving when surgeon permits. * Do not make important decisions or sign legal documents today. * Call surgeon for: 1. Temperature elevations greater than 101 degrees F. 2. Uncontrollable pain. 3. Excessive bleeding. 4. Persistent nausea and vomiting. 5. Medication intolerance (nausea, vomiting or rash). * For nausea and vomiting use only clear liquids such as: tea, soda, bouillon until nausea subsides, then gradually increase diet as tolerated. * If you have any concerns or questions, call your surgeon's office. If physician is unavailable and it is an emergency, call 911 or go to the nearest emergency room. . Instructions / Follow-Up Instructions / Follow-Up Call [phone] with any questions or concerns. SPECIAL CARE INSTRUCTIONS: Medications: * Continue to take your medications as directed. If you have been given a prescription for Plavix, please fill it immediately and take as directed. Incision Care: * Your puncture site may have some bruising and minor swelling for about one week. * You will have a small dressing covering your puncture site. You may remove the dressing after 24 hours and shower. You may let the warm soapy water run over it, but be sure to dry the puncture site well and keep it dry. * DO NOT IMMERSE THE INCISION IN A TUB/POOL/etc. UNTIL HEALED. * Puncture sites should be kept covered with a band-aid until it begins to heal. Restrictions: * Depending on whether you leg or arm was punctured to access the arteries, you will be required to lay flat, hold your arm still, or both, for about 4 hours after the procedure to prevent bleeding. * Limit your activity for the first 48 hours. You may walk and go up and down steps. Avoid excessive bending or movement at the puncture site. Possible Complications: * Excessive Swelling - after blood flow is improved you may notice increased swelling in the lower legs. This is a normal response. This usually depends on the amount of blockages in the leg, how long they have been there prior to your procedure and how much blood flow was restored. Elevating your legs will help to improve this. Please notify our office ([phone] ) if the swelling does not go away after lying in bed overnight. * Infection/Drainage/Bleeding - Drainage or bleeding from the puncture site should be minimal. If you have excessive bleeding or drainage, call our office ([phone]) right away. * Pain - You may experience some mild pain or soreness at your puncture site. If your pain does not improve, please contact our office ([phone]). Call your doctor and seek emergent treatment if you develop: * Temperature above 101 degrees * Any fever or chills * Any redness or purulent drainage from the puncture site * Any new dusky/blue colored toes or feet with coolness or sharp or aching pain. SKIN IRRITATION: * You may experience some redness and/or swelling in the area where radiation was administered. If any skin irritation occurs, please contact your family physician. FOLLOW UP VISIT: Keep any scheduled doctor appointments. Diet Recommendations Recommended Home Diet: resume previous diet Procedures Procedures Performed: Fistulogram left forearm fistula, coil embolization of branch, conscious sedation ([id number]) Pending Studies Studies pending at discharge: no Medical Emergencies . Who to Call and When: Medical Emergencies: If at any time you feel your situation is an emergency, please call 911 immediately. . Non-Emergent Contact Non-Emergency issues call your: Surgeon . . "Provider Documentation" section prepared by Ronny Solomon. .
[2017-03-10 08:45] VITALS: BP 182/77; PULSE 65; TEMP 37; O2SAT 95
[2017-03-10 09:15] VITALS: BP 184/85; PULSE 71; TEMP 36.6; O2SAT 94
== END 2017-03-10 09:15 | disposition home or self-care (01) ==
LOC: C.ACU 06:10
PROVIDERS: ATTEND Surgery Vascular Surgery
DX: T82.590A Other mechanical complication of surgically created arteriovenous fistula, initial encounter (principal); E11.22 Type 2 diabetes mellitus with diabetic chronic kidney disease; I12.0 Hypertensive chronic kidney disease with stage 5 chronic kidney disease or end stage renal disease; N18.6 End stage renal disease; N25.81 Secondary hyperparathyroidism of renal origin; D64.9 Anemia, unspecified; E66.9 Obesity, unspecified; Z99.2 Dependence on renal dialysis; X58.XXXA Exposure to other specified factors, initial encounter

== ENCOUNTER 2017-05-19 07:54 | Day surgery (SDC) | payer OTHER, BC ==
[~2017-05-19] VITALS: Ht 185.4 cm; Wt 172.1 kg
[~2017-05-19 07:54] MED LIST changes: +CEFAZOLIN 1000MG IV PUSH 5 ML IV SCH; -CEFAZOLIN 1000MG/55 ML D5W IV SCH
[2017-05-19 08:39] VITALS: BP 163/84; PULSE 91; TEMP 37.3; O2SAT 100; Ht 185.4 cm; Wt 172.1 kg
[2017-05-19] MEDS ORDERED: LISI40TA PO (09:04)
[2017-05-19] MEDS ORDERED: LEVO-17 PO (09:17)
[2017-05-19] MEDS ORDERED: CALC667C4 PO (09:17)
[2017-05-19] MEDS ORDERED: FURO80TA63 PO (09:17)
[2017-05-19] MEDS ORDERED: METO50TA7 PO (09:17)
--- NOTE | 2017-05-19 09:31 | History and Physical ---
History & Physical Date of Service May 19, 2017. History & Physical Chief Complaint Malfunctioning fistula History of Present Illness The patient is a 56 year old male with hx of DMII, HTN, obesity, who has a left upper arm fistula which is functioning well. He is here for removal of his permcath. Denies HERRERA, fever, chills, chest pain, SOB, abd pain, N/V, rest pain, claudication, other complaints. Allergies Coded Allergies: No Known Allergies Home Medications Meds on chart Problem List Medical Problems: (1) Anemia (2) Bilateral lower leg cellulitis (3) Hypertension (4) Metabolic acidosis (5) Nephrotic syndrome (6) Proteinuria (7) Secondary hyperparathyroidism of renal origin Surgical / Medical History Hx Cardiac Surgery: No Hx Abdominal Surgery: No Hx Cancer Surgery: No Hx Thoracic Surgery: No Hx Orthopedic: No Hx Urinary Tract Surgery: No HX Other Surgery: No Past Medical/Surgical History: Diabetes, Hypertension, Kidney Disease Family History Cancer Diabetes mellitus Heart disease Hypertension Kidney disease Kidney stones Lung disease Cancer Diabetes mellitus Heart disease Hypertension Kidney disease Kidney stones Lung disease Social History Smoking Status: Never Smoker Hx Tobacco Use In Past Year?: No Hx Alcohol Use - Type & Amnt: No Hx Substance Use -Type & Amnt: No Review of Systems Constitutional: + malaise, No chills, No fever Skin: + change in color Eyes: No visual changes ENMT: No sore throat Respiratory: + KOENIG, No cough, No hemoptysis, No orthopnea, No short of breath Cardiovascular: + edema, No chest pain, No palpitations, No syncope, No intermittent claudication Gastrointestinal: No abdominal pain, No nausea, No vomiting Neurologic: + weakness, No dizziness, No lethargy, No numbness, No tingling Physical Exam Constitutional: General Apperance: well-nourished, well-developed, obese (morbidly) Level of Distress: NAD, Psychiatric: Mental Status: active & alert, normal mood, normal affect Orientation: oriented except where noted, to time, to place, to person Memory: recent memory normal, remote memory normal Head: normocephalic, atraumatic Eyes: EOM: EOMI ENMT: normal ENT inspection, hearing grossly normal Neck: supple, trachea midline Lungs: Respiratory effort: no dyspnea, good air movement Auscultation: breath sounds normal, no wheezing Cardiovascular: Apical Impulse: not displaced Heart Auscultation: RRR, no rubs, no gallops Peripheral Pulses: Pulses: full and equal, in all extremities except if noted Bruits: none appreciated Carotid Pulse: normal on the left, normal on the right Brachial Pulses: normal on the left, normal on the right Radial Pulse: normal on the left, normal on the right Femoral Pulse: decreased on the left, decreased on the right Posterior Tibialis Pulse: pertinent finding (unable to palpate feet warm, brisk cap refill) Dorsalis Pedis Pulse: pertinent finding (unable to palpate , feet warm, brisk cap refill) Abdomen: Bowel Sounds: normal Inspection & Palpation: soft, no tenderness, guarding & rebound, Musculoskeletal: normal strength (5/5 throughout), normal tone Extremities: Upper Right: no cyanosis, no varicosities, no edema Upper Left: no cyanosis, no varicosities, no palpable cord, no edema Lower Right: no cyanosis, no varicosities, no palpable cord, no edema Lower Left: no cyanosis, no varicosities, no palpable cord, no edema Neurologic: Cranial Nerves: grossly intact Sensation: grossly intact Assessment and Plan ASSESSMENT and PLAN: Functioning left arm fistula Plan: Patient admitted for removal of his permcath. I have discussed the risks options and benefits of the procedure with the patient. The patient understands the risks options and benefits and agrees to the procedure.
[2017-05-19] MEDS ORDERED: NURSING VERBAL MED ORDER ONE (09:45)
[2017-05-19] MEDS ORDERED: CEFAZOLIN SOD 3000MG/15 ML IV PUSH IV ONE (09:47)
[2017-05-19] MEDS ORDERED: LIDOCAINE HCL 1% 20 ML VIAL ONE (09:51)
--- NOTE | 2017-05-19 10:10 | [facility] Operative Report ---
Operative Report Operative Date May 19, 2017. Pre-Operative Diagnosis Functioning left arm fistula Post-Operative Diagnosis Same Procedure(s) Performed Perm Cath Removal Surgeon Juanito Environmental Planner Surgeon(s) None Estimated Blood Loss 0 Findings cuff and catheter removed Specimens a; Perm Cath Anesthesia Local Complication(s) None Disposition Indications This is a 57-year-old gentleman with a right internal jugular vein PermCath in place. He now has a functioning fistula. He is admitted at this time for removal of his PermCath. I have discussed the risks options and benefits of the procedure with the patient. The patient understands the risks options and benefits and agrees to the procedure. Description of Procedure The patient was taken to the angio suite and placed in the supine position. The right side of the neck, chest wall and catheter were prepped and draped in a sterile manner. Local anesthesia was then accomplished. Using sharp and blunt dissection, the cuff of the permcath was freed up from the surrounding fibrous tissue. The permcath and cuff were completely removed. Pressure was then applied and adequate hemostasis was obtained. A sterile dressing was then applied. The patient left the angio suite in good condition and tolerated the procedure well. I attest to the content of the Intraoperative Record and any orders documented therein. Any exceptions are noted below.
--- NOTE | 2017-05-19 10:13 | Discharge Instructions ---
Discharge Instructions Date of Service May 19, 2017. Visit Reason for Visit: End Stage Renal Disease, Functioning Fistula Discharge Discharge Diagnosis / Problem: Functioning fistula Discharge Goals Goal(s): Therapeutic intervention Activity Recommendations Activity Limitations: resume your previous activity Shower/Bathe: tomorrow May shower tomorrow Remove dressing tomorrow Replace with bandaid or small dressing if needed. SPECIAL CARE INSTRUCTIONS: Medications: * Continue to take your medications as directed. If you have been given a prescription for Plavix, please fill it immediately and take as directed. Incision Care: * Your puncture site may have some bruising and minor swelling for about one week. * You will have a small dressing covering your puncture site. You may remove the dressing after 24 hours and shower. You may let the warm soapy water run over it, but be sure to dry the puncture site well and keep it dry. * DO NOT IMMERSE THE INCISION IN A TUB/POOL/etc. UNTIL HEALED. * Puncture sites should be kept covered with a band-aid until it begins to heal. Restrictions: * Depending on whether you leg or arm was punctured to access the arteries, you will be required to lay flat, hold your arm still, or both, for about 4 hours after the procedure to prevent bleeding. * Limit your activity for the first 48 hours. You may walk and go up and down steps. Avoid excessive bending or movement at the puncture site. Possible Complications: * Excessive Swelling - after blood flow is improved you may notice increased swelling in the lower legs. This is a normal response. This usually depends on the amount of blockages in the leg, how long they have been there prior to your procedure and how much blood flow was restored. Elevating your legs will help to improve this. Please notify our office ([phone] ) if the swelling does not go away after lying in bed overnight. * Infection/Drainage/Bleeding - Drainage or bleeding from the puncture site should be minimal. If you have excessive bleeding or drainage, call our office ([phone]) right away. * Pain - You may experience some mild pain or soreness at your puncture site. If your pain does not improve, please contact our office ([phone]). Call your doctor and seek emergent treatment if you develop: * Temperature above 101 degrees * Any fever or chills * Any redness or purulent drainage from the puncture site * Any new dusky/blue colored toes or feet with coolness or sharp or aching pain. SKIN IRRITATION: * You may experience some redness and/or swelling in the area where radiation was administered. If any skin irritation occurs, please contact your family physician. FOLLOW UP VISIT: Keep any scheduled doctor appointments. Anesthesia . Post Anesthesia Instructions: If you have had General Anesthesia or IV Sedation: * Do not drive today. * Resume driving when surgeon permits. * Do not make important decisions or sign legal documents today. * Call surgeon for: 1. Temperature elevations greater than 101 degrees F. 2. Uncontrollable pain. 3. Excessive bleeding. 4. Persistent nausea and vomiting. 5. Medication intolerance (nausea, vomiting or rash). * For nausea and vomiting use only clear liquids such as: tea, soda, bouillon until nausea subsides, then gradually increase diet as tolerated. * If you have any concerns or questions, call your surgeon's office. If physician is unavailable and it is an emergency, call 911 or go to the nearest emergency room. . Diet Recommendations Recommended Home Diet: resume previous diet Procedures Procedures Performed: Perm Cath Removal Pending Studies Studies pending at discharge: no Medical Emergencies . Who to Call and When: Medical Emergencies: If at any time you feel your situation is an emergency, please call 911 immediately. . Non-Emergent Contact Non-Emergency issues call your: Surgeon . . "Provider Documentation" section prepared by Ronny Solomon. .
[2017-05-19 10:25] VITALS: BP 193/86; PULSE 74; TEMP 36.8; O2SAT 99
[2017-05-19 10:40] VITALS: BP 180/81; PULSE 70; O2SAT 98
[2017-05-19 10:55] VITALS: BP 179/82; PULSE 74; O2SAT 97
[2017-05-19 11:10] VITALS: BP 177/83; PULSE 73; TEMP 36.6; O2SAT 98
[2017-05-19 11:25] VITALS: BP 180/81; PULSE 75; TEMP 36.4; O2SAT 99
== END 2017-05-19 11:25 | disposition home or self-care (01) ==
LOC: C.ACU 07:54
PROVIDERS: ATTEND Surgery Vascular Surgery
DX: Z45.2 Encounter for adjustment and management of vascular access device (principal); E11.9 Type 2 diabetes mellitus without complications; I10 Essential (primary) hypertension; E66.9 Obesity, unspecified; Z80.9 Family history of malignant neoplasm, unspecified; Z83.3 Family history of diabetes mellitus; Z82.49 Family history of ischemic heart disease and other diseases of the circulatory system; Z84.1 Family history of disorders of kidney and ureter

== ENCOUNTER 2017-06-02 18:43 | Inpatient (IN) | payer OTHER, BC ==
[~2017-06-02] VITALS: Ht 182.9 cm; Wt 169.1 kg
[~2017-06-02 18:43] MED LIST changes: -B-COCAP20 PO; +CALC667C4 PO; -CEFAZOLIN 1000MG IV PUSH 5 ML IV SCH; -D5W AND 1/4NSS 1000 ML IV SCH; -FURO40TA3 PO; -HYDR100T12 PO; +LEVO-17 PO; +LISI40TA PO; -LSN40 PO; -METO50TA17 PO; +METO50TA7 PO; -MRLP17X PO; -OXYC-57 PO; -RCL25 PO; -VTMD PO
[2017-06-02 20:29] VITALS: BP 148/78; PULSE 81; TEMP 36.7; O2SAT 97; Ht 182.9 cm; Wt 169.1 kg
[2017-06-02] MEDS ORDERED: LSX20 PO (21:18)
[2017-06-02] MEDS ORDERED: CLOP1TAB15 PO (21:18)
[2017-06-02] MEDS ORDERED: VANCOMYCIN INJ 1,000 MG in SODIUM CHLORIDE 0.9% 250ML 250 ML IV STA (21:44)
[2017-06-02] MEDS ORDERED: ACETAMINOPHEN 325 MG TAB PO PRN (21:45)
[2017-06-02] MEDS ORDERED: OXYCODONE HCL IR 5 MG TAB (IMMEDIATE RELEASE) PO PRN (21:45)
[2017-06-02] MEDS ORDERED: ALUMINUM/MAGNESIUM/SIMETH (MAALOX MAX) 30 ML UDC PO PRN (21:45)
[2017-06-02] MEDS ORDERED: ONDANSETRON INJ 2 MG/ML 2 ML VIAL IV PRN (21:45)
[2017-06-02] MEDS ORDERED: PIPERACILL/TAZOBAC IV 3.375 GM in DEXTROSE 5% 100ML 100 ML IV SCH (22:00)
--- NOTE | 2017-06-02 22:15 | History and Physical ---
History & Physical Date & Time of Service: Jun 02, 2017 at 21:50 Chief Complaint: R Foot Infection Primary Care Physician: No Doctor, Assigned History of Present Illness Source: patient, hospital records, other ([employer] - [facility] ) 57yo male with ESRD on HD //Friday, PAD, morbid obesity, HTN, T2DM, and chronic diastolic CHF who presents as a transfer from [facility] due to lack of hemodialysis services available at their institution. 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 This procedure was performed by Dr. Jeannie Parsons, harvesting manager. Following the procedure, due to lack of nephrology services, we were asked to take Mr. Quinonez in transfer. The patient reports nearly 2 months of a nonhealing ulcer of the right great toe. Sometime in the last few weeks he was diagnosed with osteomyelitis of that toe. The wound care center in [place] was following the patient for this problem. Then, in the last 1-2 weeks, the toe became black/gangrenous. He underwent PAD surgery of the right leg on 05/16/17 in [facility]. Records indicate he underwent right anterior tibial artery stenting with atherectomy along with BROOMCORN GRADER of the mid right SFA. Records indicate he has been on multiple antibiotics for the toe in the last 1-2 months. Elective surgery (amputation of the right great toe) was scheduled for this Friday. However, while attending a follow-up appt today at the [facility] in [place], the toe was noticeably much worse. STAT x-rays showed gas gangrene. This then led to the emergent surgery as noted above. Upon arrival at [facility] the patient denied all complaints except for right foot pain. Denies any recent fever, chills, or poor appetite. Glycemic control has been quite good with diet alone. Labs at [facility] today - sed rate 28 CRP 17 WBC 11.6 Hb 9.6 Cr 6.3 Na 132 K 5.4 glucose 191 x-rays right foot - gas gangrene Past Medical/Surgical History PMH: 1. ESRD on HD //Fri 2. HTN 3. morbid obesity - BMI 51 4. chronic diastolic CHF 5. PAD 6. anemia of chronic disease 7. T2DM with peripheral neuropathy PSH: 1. permcath placement with ultimate removal (latter recently done at [facility] by Dr. Solomon) 2. left arm AV fistula creation 3. left arm AV fistula revision 4. right anterior tibial artery stenting with atherectomy along with BROOMCORN GRADER of the mid right SFA - Dr. Mesa, [facility] 5. right great toe amputation, right 1st metatarsal partial amputation - at [facility] 6. 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) Multi-Drug Resistant Organisms History of MDRO: No Allergies Coded Allergies: No Known Allergies (Unverified , 05/19/17) Home Medications Scheduled Calcium Acetate (Phoslo 667 Mg), 2 CAPSULES PO WM Clopidogrel (Plavix), 75 MG PO DAILY Furosemide (Furosemide), 60 MG PO BID Levofloxacin (Levaquin), 250 MG PO DAILY Lisinopril (Zestril), 40 MG PO DAILY Metoprolol Succ (Toprol Xl) (Toprol-Xl), 50 MG PO BID Review of Systems Constitutional: No fever, No chills, No sweats, No weight loss, No weakness, No fatigue Eyes: No worsening of vision ENT: No nasal symptoms, No sore throat Respiratory: No cough, No wheezing, No dyspnea on exertion, No dyspnea at rest Cardiovascular: + edema (mild, right foot), No chest pain, No orthopnea, No PND Abdomen: No pain, No nausea, No vomiting, No diarrhea, No GI bleeding Musculoskeletal: No joint pain (right foot) Genitourinary - Male: + problem reported (only voids 1x/day) Neurologic: + numbness/tingling (both feet) Psychiatric: No depression symptoms Endocrine: No fatigue Hematologic / Lymphatic: No abnormal bleeding/bruising Integumentary: No rash Physical Exam Vital Signs Date Time Temp Pulse Resp B/P (MAP) Pulse Ox O2 Delivery O2 Flow Rate FiO2 06/02/17 20:29 36.7 81 19 148/78 97 Room Air General Appearance: no apparent distress, + obese Eyes: PERRL ENT: hearing grossly normal, pharynx normal Neck: supple, no adenopathy, no JVD Respiratory/Chest: lungs clear, no respiratory distress, no accessory muscle use Cardiovascular: regular rate, rhythm, no gallop, no murmur, normal peripheral pulses (feet b/l about 1+), + extra beats Abdomen/GI: normal bowel sounds, non tender, soft, no organomegaly Extremities/Musculoskelatal: + pedal edema (right leg, about trace-1+), + pertinent finding (no edema left leg) Neurologic/Psych: no motor/sensory deficits, alert, oriented x 3 Skin: + pertinent finding (right foot wrapped in large dressings; exposed toes with cap refill < 2 seconds) AV fistula, left arm, with +bruit/thrill Diagnostics Laboratory Results Results Past 24 Hours Test 06/02/17 21:04 Range/Units Bedside Glucose 133 70-99 mg/dl Diagnostic Radiology x-rays, right foot, done at [facility] - gas gangrene Impression Assessment and Plan 57yo male with ESRD on HD //Friday, PAD, morbid obesity, HTN, T2DM, and chronic diastolic CHF -- transfer from [facility] after he underwent emergent 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 We were asked to accept him in transfer due to a lack of nephrology/hemodialysis services at [facility]. Upon arrival to [facility] he is in stable condition. 1. right great toe amputation / right first metatarsal partial amputation -- 2nd to gas gangrene. The harvesting manager confirmed by phone that intra-op cultures were sent. Will place him on zosyn/vancomycin while awaiting those cultures. The patient is well known to Dr. Solomon and will ask him to consult and comment on the patient's foot/operative site. By way of exam it appears the patient has good arterial circulation. Dressings were left intact at time of admission this evening. Defer on any repeat imaging at this time. 2. ESRD on HD //Fri - consult nephrology for HD assistance. 3. HTN - continue home meds. 4. T2DM - diet-controlled at home. BSG's ac/hs. T2DM diet. Novolog correction ordered. 5. PAD - continue plavix. s/p recent RLE PAD work at [facility]. 6. chronic diastolic CHF - appears compensated. Cont BB, LYLE. 7. morbid obesity - BMI 51 8. DVT proph - start heparin 5000 BID in am. 9. FEN - repeat BMP in am. DM/AHA diet. NO IVF. 10. mild hyperkalemia - 2nd to #2. HD to be performed tomorrow. patient placed on observation status for now Level of Care Telemetry Advanced Directives Existing Living Will: No Existing Power of Platen Grinder: No Resuscitation Status FULL RESUSCITATION VTE Prophylaxis VTE Risk Assessment Done? Y/N: Yes Risk Level: Moderate Given or contraindicated: Unfractionated heparin SQ Additional Copies To Jeannie Arboleda MD; Marybel Israel MD; Ronny Solomon M.D.
[2017-06-02] MEDS ORDERED: IV FLUIDS COMPLETED PRN (22:30)
[2017-06-02] MEDS ORDERED: PIPERACILL/TAZOBAC IV 4.5 GM in DEXTROSE 5% 100ML IV ONE (22:30)
[2017-06-02] MEDS ORDERED: VANCOMYCIN INJ 2,750 MG in SODIUM CHLORIDE 0.9% 500ML 500 ML IV SCH (22:30)
[2017-06-02 22:57] LABS: CREATININE 6.96 mg/dl (0.60-1.40)
[2017-06-02] MEDS ORDERED: PIPERACILL/TAZOBAC CONSULT ACTIVE PRN (23:15)
[2017-06-02] MEDS ORDERED: VANCOMYCIN CONSULT ACTIVE PRN (23:15)
[2017-06-02 23:35] VITALS: BP 167/76; PULSE 74; TEMP 37; O2SAT 98
[2017-06-03] VITALS (29 sets, daily range): BP systolic 115–190; BP diastolic 47–90; PULSE 53–83; TEMP 36.6–37.1; O2SAT 94–98
[2017-06-03 06:58] LABS: HEMATOCRIT 24.8 % (42-52); MEAN CELL VOLUME 90.2 fL (80-100); MEAN CORPUSCULAR HEMOGLOBIN 29.1 pg (25-34); MEAN CORPUSCULAR HGB CONC 32.3 g/dl (32-36); MEAN PLATELET VOLUME 9.8 fL (7.4-10.4); PLATELET COUNT 268 K/uL (130-400); RED BLOOD COUNT 2.75 M/uL (4.7-6.1); WHITE BLOOD COUNT 11.95 K/uL (4.8-10.8)
[2017-06-03] MEDS: INSULIN ASPART 100 UNITS/ML 3 ML PEN SC SCH ×4 (07:00→23:14)
[2017-06-03 07:12] LABS: INR 1.1 (0.9-1.1); PROTHROMBIN TIME (PATIENT) 11.7 SECONDS (9.0-12.0)
[2017-06-03 07:40] LABS: CALCIUM 8.7 mg/dl (8.5-10.1); CREATININE 7.22 mg/dl (0.60-1.40)
--- NOTE | 2017-06-03 08:42 | Hospitalist Progress Note ---
Hospitalist Progress Note Date of Service Jun 03, 2017. (Frances Dominique PA-C) Subjective Pt evaluation today including: conversation w/ patient, physical exam, chart review, lab review Pain: none PO Intake: good Voiding: no voiding problems (patient makes urine) The patient was seen and examined this morning. Patient reports feeling well. He denies having any pain. The patient notes that since having great right toe amputation he has minimal pain associated with this, although there is some swelling, but no redness. He feels well overall and is asking to go home. The patient is a understanding of dialysis treatment today, and likely needs to await culture reports from toe surgery. He did not sleep well due to frequent nursing checks per his report. Patient notes she is supposed to be nonweightbearing to his right foot but has transferred from bed to bedside commode without assistance already. He seems to be somewhat noncompliant as far as medical instructions just from my discussion with him this morning. Additional Comments: Constitutional: No fever, sweats or chills Eyes: No diplopia, no worsening or blurred vision ENT: normal hearing, no trouble swallowing Respiratory: No cough, sputum, dyspnea at rest or on exertion Cardiovascular: No chest pain, tightness or palpitations Abdomen: No pain, nausea, vomiting, diarrhea or constipation Musculoskeletal: No joint pain, calf pain, + swelling in the right foot, not in the left. Neurologic: No weakness, + numbness/tingling in bilateral lower extremities secondary to neuropathy, no balance problems, currently supposed to be nonweightbearing on the right lower extremity Psychiatric: No anxiety or depression Skin: No rash or itch (Frances Dominique PA-C) Objective Vital Signs Date Time Temp Pulse Resp B/P (MAP) Pulse Ox O2 Delivery O2 Flow Rate FiO2 06/03/17 08:01 36.8 77 18 153/80 (104) 98 Room Air 06/03/17 04:00 97 Room Air 06/03/17 03:50 36.9 61 18 163/71 (101) 94 Room Air 06/03/17 00:00 97 Room Air 06/02/17 23:35 37.0 74 18 167/76 (106) 98 Room Air 06/02/17 20:29 36.7 81 19 148/78 97 Room Air (Frances Dominique PA-C) Physical Exam Notes: General: awake, alert, no apparent distress, morbidly obese, BMI equals 51.5 Head: Normocephalic, atraumatic ENT: PERRL, EOMI, no pharyngeal exudate, mucous membranes moist Chest: Clear to auscultation, on room air, no adventitious breath sounds Cardiac: Regular rate and rhythm, no murmur, no JVD, normal peripheral pulses, good capillary refill Abdominal: NABS x 4 quadrants, soft, nontender to palpation, no rebound, guarding or tenderness Extremities: Right foot wrapped in Ruiz, dressing appears C/D/I, + R peripheral edema and some warmth to touch, no erythema. LLE is without edema or erythema, good pulses bilaterally, calfs nontender to palpation Psych: Normal mood and affect, + sarcastic at times, joking manner Neuro: AAO x 3, speech is clear, no peripheral sensory deficits (Frances Dominique PA-C) Laboratory Results Last 24 Hours Test 06/02/17 21:04 06/02/17 22:09 06/03/17 06:02 06/03/17 06:33 Bedside Glucose 133 mg/dl 161 mg/dl Creatinine 6.96 mg/dl 7.22 mg/dl Est Creatinine Clear Calc Drug Dose 19.6 ml/min 18.9 ml/min Estimated GFR () 9.4 9.0 Estimated GFR (Non- 8.1 7.7 White Blood Count 11.95 K/uL Red Blood Count 2.75 M/uL Hemoglobin 8.0 g/dL Hematocrit 24.8 % Mean Corpuscular Volume 90.2 fL Mean Corpuscular Hemoglobin 29.1 pg Mean Corpuscular Hemoglobin Concent 32.3 g/dl RDW Standard Deviation 54.1 fL RDW Coefficient of Variation 16.4 % Platelet Count 268 K/uL Mean Platelet Volume 9.8 fL Prothrombin Time 11.7 SECONDS Prothromb Time International Ratio 1.1 Sodium Level 133 mmol/L Potassium Level 5.0 mmol/L Chloride Level 98 mmol/L Carbon Dioxide Level 23 mmol/L Anion Gap 12.0 mmol/L Blood Urea Nitrogen 58 mg/dl BUN/Creatinine Ratio 8.0 Random Glucose 161 mg/dl Calcium Level 8.7 mg/dl (Frances Dominique PA-C) Assessment and Plan 57yo male with ESRD on HD //Friday, PAD, morbid obesity, HTN, T2DM, and chronic diastolic CHF -- transfer from [facility] after he underwent emergent 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 We were asked to accept him in transfer due to a lack of nephrology/hemodialysis services at [facility]. Upon arrival to [facility] he is in stable condition. S/p Right great toe amputation / right first metatarsal partial amputation -- 2nd to gas gangrene. - The artist and repertoire manager confirmed by phone that intra-op cultures were sent - will attempt to reach [facility] for culture results today - Will place him on zosyn/vancomycin while awaiting those cultures. - The patient is well known to Dr. Solomon and will ask him to consult and comment on the patient's foot/operative site. - Dressing was not unwrapped this morning. - appears the patient has good arterial circulation with palpable pulses in bilateral lower extremities - Defer on any repeat imaging at this time. ESRD on HD //Fri - consult nephrology for HD assistance. - Cr > 7 this morning prior to HD HTN - continue lisinopril 40 mg daily, metoprolol succ 50 BID T2DM - diet-controlled at home. BSG's ac/hs. T2DM diet. Novolog correction ordered. - slightly elevated in the 160s this morning PAD - continue plavix. s/p recent RLE PAD work at [facility]. Chronic diastolic CHF - appears compensated. Cont BB, RUIZ. Morbid obesity - BMI 51 Mild hyperkalemia - 2nd to ESRD. HD to be performed this morning DVT proph - heparin subq 5000 BID CODE STATUS: FULL CODE Disposition: Patient from home, will need wound care follow-up for the toe amputation, PCP follow-up, and continue HD as regularly scheduled //Fri, possible discharge tomorrow, will transfer to [facility] (Frances Dominique PA-C) I agree with PA assessment and plan and have seen and examined pt myself VSS Labs reviewed S/p toe amputation COnsult podiatry for further opinion, await final cx results from [facility] ESRD, to undergo HD today Pt in no distress at this time (Dmitry Dunbar D.O.)
[2017-06-03] MEDS: LACTOBACILLUS ACIDOPHILUS (FLORANEX) TAB PO SCH ×3 (08:52→18:49)
[2017-06-03] MEDS: METOPROLOL SUCC 50MG EXT REL TAB PO SCH ×2 (08:53→18:49)
[2017-06-03] MEDS: LISINOPRIL 40 MG TAB PO SCH (08:53)
[2017-06-03] MEDS: CALCIUM ACETATE 667MG GELCAP PO SCH ×3 (08:53→18:49)
[2017-06-03] MEDS: CLOPIDOGREL BISULFATE 75 MG TAB PO SCH (08:53)
[2017-06-03] MEDS: FUROSEMIDE 20 MG TAB PO SCH ×2 (08:54→19:04)
[2017-06-03] MEDS: HEPARIN SOD 5000 UNIT/0.5 ML CARP SQ SCH ×2 (08:55→19:05)
[2017-06-03] MEDS ORDERED: EPOETIN ALFA 10,000 UNITS/ML VIAL IV. ONE (09:30)
[2017-06-03] MEDS ORDERED: PARICALCITOL 5 MCG/ML VIAL (ZEMPLAR) IV. ONE (10:00)
[2017-06-03] MEDS ORDERED: HEPARIN SOD (PORCINE) 1000 UNIT/ML 10 ML VIAL IV ONE (10:00)
[2017-06-03] MEDS: PIPERACILL/TAZOBAC IV 4.5 GM in DEXTROSE 5% 100ML IV SCH ×2 (11:08→22:20)
--- NOTE | 2017-06-03 11:46 | Nephrology Consultation ---
Nephrology Consultation Date & Providers Date of Consultation: Jun 03, 2017. Primary Care Provider: No Doctor, Assigned Referring Provider: Reason for Consultation Provide inpatient HD for this patient w/ ESRD History of Present Illness Mr. Quinonez is a 57 year old white male who is seen at the request of Dr. Paniagua to provide inpatient hemodialysis and assist with medical management. Medical records in the hospital EMR were reviewed and are summarized as follows: Mr. Quinonez suffers from obesity (BMI 51), AODM and HTN. In the past he has not maintained regular outpatient medical follow up. He presented to [facility] 10/04 with volume overload. Evaluation revealed nephrotic syndrome, advanced renal insufficiency and small echogenic kidneys on ultrasound. Mr. Quinonez required IJ THC insertion and initiation of HD 10/09/16. He had a L wrist AVF created by Dr. Solomon . Since then Mr. Quinonez has been under the care of Dr. Marybel Israel and receives HD TTS at the [facility] HD unit (5 hours, F- 250 dialyzer, 3K 2.5Ca bath, Qb 450 Qd 800, EDW 172 kg, Heparin 2000 U bolus + 2000 units/hr, Calcitriol 1.75 mcg po w/ each HD, Iron 50 mg IV w/ each treatment and Mircera as per protocol). In April Mr. Quinonez was found to have an ischemic R great toe. He was referred to Dr. Baxter in [place] and underwent R anterior tibial artery atherectomy. He then received wound care. Recently Mr. Quinonez was found to have gas gangrene involving his R great toe. He was admitted to [facility] and underwent amputation. Following the procedure he was transferred to [facility] to allow for continued IV antibiotic therapy and inpatient HD. Past Medical/Surgical History Medical: # ESRD on HD TTS at [facility] (Dr. Israel) # HTN # Obesity (BMI 51) # Chronic diastolic CHF # PAD s/p R tibial artery atherectomy ([place] 05/06) and R great toe amputation ([place] 06/06) # AODM Surgical: # L wrist AVF 10/04 - Dr. Solomon # R tibial artery atherectomy ([place] 05/06) # R great toe amputation ([place] 06/06) Allergies Coded Allergies: No Known Allergies (Unverified , 05/19/17) Inpatient Medications Current Inpatient Medications Medications (Trade) Dose Ordered Sig/Chavez Route Start Time Stop Time Status Last Admin Dose Admin Heparin Sodium (Porcine) (Heparin Sq 5000 Unit/0.5ml) 5,000 unit Q12 SQ 06/03/17 09:00 07/03/17 08:59 Acetaminophen (Tylenol Tab) 650 mg Q4H PRN PO 06/02/17 21:45 07/02/17 21:44 Al Hydrox/Mg Hydrox/Simethicone (Maalox Max Susp) 15 ml Q4H PRN PO 06/02/17 21:45 07/02/17 21:44 Ondansetron HCl (Zofran Inj) 4 mg Q6H PRN IV 06/02/17 21:45 07/02/17 21:44 Calcium Acetate (Phoslo Cap) 1,334 mg AC PO 06/03/17 07:00 07/03/17 06:59 06/03/17 08:53 1,334 MG Clopidogrel Bisulfate (plAVix TAB) 75 mg DAILY PO 06/03/17 09:00 07/03/17 08:59 06/03/17 08:53 75 MG Furosemide (Lasix Tab) 60 mg BID17 PO 06/03/17 09:00 07/03/17 08:59 Lisinopril (Zestril Tab) 40 mg DAILY PO 06/03/17 09:00 07/03/17 08:59 06/03/17 08:53 40 MG Metoprolol Succinate (Toprol Xl Tab) 50 mg BID PO 06/03/17 09:00 07/03/17 08:59 06/03/17 08:53 50 MG Insulin Aspart (novoLOG ASPART) SLIDING SCALE G... ACHS SC 06/03/17 07:00 07/03/17 06:59 Oxycodone HCl (Roxicodone Immediate Rel Tab) 5 mg Q4H PRN PO 06/02/17 21:45 06/16/17 21:44 Lactobacillus Acidophilus (Floranex Tab) 4 tab TIDM PO 06/03/17 07:30 07/03/17 07:29 06/03/17 08:52 4 TAB Miscellaneous (Iv Fluids Completed) 1 ea PRN PRN N/A 06/02/17 22:30 06/02/18 22:29 Vancomycin HCl (Consult) 1 ea UD PRN N/A 06/02/17 23:15 07/02/17 23:14 Piperacillin Sod/ Tazobactam Sod (Consult) 1 ea UD PRN N/A 06/02/17 23:15 07/02/17 23:14 Piperacillin Sod/ Tazobactam Sod 4.5 gm/Dextrose 120 ml @ 30 mls/hr Q12H IV 06/03/17 10:00 06/13/17 09:59 06/03/17 11:08 30 MLS/HR Heparin Sodium (Porcine) (Heparin Iv Bolus) 2,000 unit Q1H IV 06/03/17 11:00 06/03/17 13:01 Family History Cancer Diabetes mellitus Heart disease Hypertension Kidney disease Kidney stones Lung disease Negative for CKD / ESRD Social History Smoking Status: Never Smoker Smokeless Tobacco Use: No Alcohol Use: none Drug Use: none Marital Status: single Housing Status: lives alone ([place]) 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 Lives alone. 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 Denies tobacco use. Review of Systems Constitutional: No fever Respiratory: No shortness of breath Cardiovascular: No chest pain Abdomen: No pain, No nausea, No vomiting A complete review of systems was performed. Pertinent positives are noted above. All other systems are negative. Physical Exam Date Time Temp Pulse Resp B/P (MAP) Pulse Ox O2 Delivery O2 Flow Rate FiO2 06/03/17 08:01 36.8 77 18 153/80 (104) 98 Room Air 06/03/17 04:00 97 Room Air 06/03/17 03:50 36.9 61 18 163/71 (101) 94 Room Air 06/03/17 00:00 97 Room Air 06/02/17 23:35 37.0 74 18 167/76 (106) 98 Room Air 06/02/17 20:29 36.7 81 19 148/78 97 Room Air General Appearance: no apparent distress Head: normocephalic, atraumatic Eyes: PERRL Neck: no adenopathy Respiratory/Chest: lungs clear, no respiratory distress Cardiovascular: regular rate, rhythm Abdomen/GI: normal bowel sounds, non tender, soft Extremities/Musculoskelatal: no calf tenderness, + pertinent finding (R foot currently wrapped in LYLE bandage. Unable to appreciate L DP / PT pulses. L wrist AVF + bruit) Neurologic/Psych: alert, oriented x 3 Skin: warm/dry Laboratory Results Last 24 Hours Test 06/02/17 21:04 06/02/17 22:09 06/03/17 06:02 06/03/17 06:33 Bedside Glucose 133 mg/dl 161 mg/dl Creatinine 6.96 mg/dl 7.22 mg/dl Est Creatinine Clear Calc Drug Dose 19.6 ml/min 18.9 ml/min Estimated GFR () 9.4 9.0 Estimated GFR (Non- 8.1 7.7 White Blood Count 11.95 K/uL Red Blood Count 2.75 M/uL Hemoglobin 8.0 g/dL Hematocrit 24.8 % Mean Corpuscular Volume 90.2 fL Mean Corpuscular Hemoglobin 29.1 pg Mean Corpuscular Hemoglobin Concent 32.3 g/dl RDW Standard Deviation 54.1 fL RDW Coefficient of Variation 16.4 % Platelet Count 268 K/uL Mean Platelet Volume 9.8 fL Prothrombin Time 11.7 SECONDS Prothromb Time International Ratio 1.1 Sodium Level 133 mmol/L Potassium Level 5.0 mmol/L Chloride Level 98 mmol/L Carbon Dioxide Level 23 mmol/L Anion Gap 12.0 mmol/L Blood Urea Nitrogen 58 mg/dl BUN/Creatinine Ratio 8.0 Random Glucose 161 mg/dl Calcium Level 8.7 mg/dl Impression (1) End-stage renal disease on hemodialysis (2) Gangrene (3) Obesity (4) Diabetes (5) Anemia Mr. 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 He has ESRD requiring TTS HD. Recommendations END STAGE RENAL DISEASE: -- [place] HD unit called this am and chronic outpatient HD orders were obtained -- Will provide HD today according to outpatient orders. HD RN notified -- Protect L wrist AVF HYPERTENSION: -- Blood pressure is mildly elevated -- Monitor bp following UF with HD -- Continue home bp regimen of Metoprolol, Furosemide and Lisinopril ANEMIA: -- Will provide ERI w/ HD CKD-BMD: -- Continue Phos-lo w/ meals ID: -- On IV Zosyn. Pharmacy has been consulted to adjust dose for ESRD -- Await culture results from [facility]
[2017-06-03] MEDS: HEPARIN SOD (PORCINE) 1000 UNIT/ML 10 ML VIAL IV SCH ×3 (13:45→15:45)
--- NOTE | 2017-06-03 14:52 | Pharmacy Progress Note ---
Pharmacy Abx Initial Consult Date of Service Jun 03, 2017. Pharmacy Dosing Scope Date of Consult: 06/02/17 Consultation requested by: Dr. Paniagua Pharmacy is consulted to initiate Zosyn/Vancomycin IV dosing therapy, order appropriate labs and adjust drug dose/frequency. Subjective The patient is a 57 year old male admitted on Jun 02, 2017 at 21:50 from [facility]. Patient had undergone a partial amputation of his gangrenous (R) great toe there but needed to be transferred here post operatively due to dialysis services not being available. Dr. Paniagua started patient on Vancomycin/Zosyn and they are trying to track down cultures that were taken of his toe at [facility] or [place] Objective Height (Feet): 6 Height (Inches): 0.00 Weight (Kilograms): 171.100 Vital Signs (Past 12Hrs) Vital Signs Past 12 Hours Date Time Temp Pulse Resp B/P (MAP) Pulse Ox O2 Delivery O2 Flow Rate FiO2 06/03/17 13:45 75 177/47 06/03/17 13:30 74 177/72 06/03/17 13:15 65 147/62 06/03/17 13:00 81 157/71 06/03/17 12:45 53 133/67 06/03/17 12:25 36.9 53 133/67 (89) 06/03/17 10:46 36.6 66 19 150/80 (103) 96 Room Air 06/03/17 08:01 36.8 77 18 153/80 (104) 98 Room Air 06/03/17 04:00 97 Room Air 06/03/17 03:50 36.9 61 18 163/71 (101) 94 Room Air Lab Results (24Hrs) Laboratory Tests (24 Hours) Test 06/03/17 06:02 White Blood Count 11.95 K/uL (4.8-10.8) H Micro Results As stated previously Dr. Paniagua and Taina Dominique noted that attempts are being made to track down cultures of toe from [place] and/or [facility] Date/Time Source Procedure Growth Status 06/03/17 00:00 Nasal MRSA DNA Surveillance Screen - Final Specimen Negative for MRSA by DNA Probe Complete Risk Factors for Resistance * Chronic dialysis within the past 30 days ( schedule) Assessment & Plan Assessment 57 year old male s/p Amputation of (R) great gangrenous toe Plan Vancomycin and Zosyn IV for treatment of (R) great toe infection Vancomycin IV * Loading dose: 2750mg (16 mg/kg) * Ordered random level prior to HD today, resulted at 18.1mcg/ml * Will supplemental dose after HD is over today with 750mg IV x 1 * Ordered random level with AM labs for 06/04/17 Piperacillin/tazobactam * 4.5 g IV extended infusion every 12 hours for CrCl 20 mL/min or less and dialysis. * Aggressive dosing selected due to BMI 35 or more Pharmacy will continue to follow and will adjust dose/frequency as necessary. Thank you.
--- NOTE | 2017-06-03 18:24 | BLINK REPORT ---
HISTORY OF PRESENT ILLNESS: A 57-year-old male who I was asked to see by the hospitalist. The patient underwent amputation by grab driver in [place], Dr. Jeannie Le who I spoke with early today. The patient had a history of longtime ulceration to the right foot. He underwent revascularization. Shortly following the revascularization, he developed gas gangrene. The patient underwent an amputation to the right hallux secondary to gas gangrene and was transferred to [facility] for hemodialysis. The patient was seen in hemodialysis today and noting no pain or problems. Denies fevers, chills and night sweats. PAST SURGICAL HISTORY: TIA, AV fistula, right foot amputation and anterior tibial artery stenting and arthrectomy mid superficial femoral artery and posterior tibial artery to the right lower extremity in 2006. PAST MEDICAL HISTORY: Renal disease on hemodialysis, peripheral vascular disease, morbid obesity, hypertension, diabetes type 2 with peripheral neuropathy, chronic diastolic CHF. MEDICATIONS: Per chart. Currently on vancomycin, propicillin, and tazobactam. SOCIAL HISTORY: The patient lives alone. FAMILY HISTORY: For diabetes and kidney dysfunction, lung disease, mom had cancer and coronary artery disease. Father had prostate cancer and sister had cervical cancer. PHYSICAL EXAMINATION: LOWER EXTREMITY AND VASCULAR: Posterior tibial artery is palpable bilaterally. There is cap refill noted to the wound sites on the right lower extremity; however, there is an area of central necrosis over the second metatarsal. DP nonpalpable secondary to swelling on the right, nonpalpable on the left. DERMATOLOGIC: There is a large soft tissue defect noted over the first ray with malodor. There is a central area of necrosis overlying the second metatarsal. Erythema is still involved onto the mid foot level. Serosanguineous drainage is noted in the dressings. There is no active drainage and no norm purulence. NEUROLOGIC: Epicritic sensation grossly absent. MUSCULOSKELETAL: Amputation metatarsal level right first hallux. IMPRESSION: 1. Status post right first amputation, metatarsal level secondary to gas gangrene on 06/02/2014. 2. Status post peripheral vascular revascularization by Dr. Hinojosa on 05/16/2017, consisting of stent in the anterior tibial artery, arthrectomy in the posterior tibial artery and the mid superficial femoral artery on the right lower extremity. 3. Diabetes type 2 with peripheral neuropathy and peripheral vascular disease. 4. History of gas gangrene. 5. Cellulitis, right foot. TREATMENT: 1. I spoke with Dr. Jeannie Le who recommended 6 weeks of IV antibiotics. Foot was wrapped and redressed today. We would recommend wet-to-dry dressing changes daily and recommend continued IV antibiotics. May consider a different course, I would recommend ID's input. Gas gangrene is commonly caused by C. sporogenes and rarely other clostridial species that are found. I spoke with the grab driver from the hospital, who did not have any culture results from the OR. She did note the last culture was taken prior to this was 04/21/2017, which was growing out proteus and she will fax over the current cultures. There is a type of infected vascular gangrene which is a necrotizing type infection seen in the foot, most commonly seen in patients with diabetes mellitus. Unlike gas gangrene onset, the progression is relatively slow. There is little systemic toxicity and local changes include norm gangrene with full necrosis of skin muscle, gas may be present and exudate has a foul odor similar to that part present at bedside today, there will be some but not always associated leukocytosis involved. It is usually of mixed anaerobic and aerobic michelle. Causative organisms Bacteroides fragilis , group B strep are often found, streptococci and Enterobacter may also be related. The treatment of infected vascular gangrene usually imipenem/cilastatin, Ticarcilling/clavulanic acid, Amicillin/sulbractum, or clindamycin (combined with additional antibiotic for gram negative coverage). Clostridial myonecrosis (gas gangrene) bacterial etiology is C.perfringens and rarely other clostridial species found. Antibiotic choice for C. sporogenes has traditionally been penicillin G. The patient is currently on the Zosyn, and piperacillin and vancomycin this may be for ease of dosing (as he will need 6 week course). I would recommend involving Dr. Almonte for ID's further recommendations. Awaiting OR cultures from [facility]. 2. The patient will need further debridement. We will speak to Dr. Solomon as patient is well known to him. There is exposed bone over the second metatarsal with an area of continued necrotic tissue. I briefly spoke to the patient about a transmetatarsal amputation due to the significant soft tissue loss and ease of wearing foot care later. We will discuss this further with Dr. Solomon and Dr. Cowart. At this time, I am recommending continue IV antibiotics until the cellulitis has resolved. The patient will need further debridement or revisional amputation once the cellulitis has improved. We will follow with the patient. SHERMAN
[2017-06-03] MEDS ORDERED: VANCOMYCIN INJ 750 MG in SODIUM CHLORIDE 0.9% 250ML 250 ML IV SCH (19:15)
--- NOTE | 2017-06-03 22:31 | DIAGNOSTIC IMAGING REPORT ---
R FOOT MIN 3 VIEWS ROUTINE CLINICAL HISTORY: 57 years-old Male presenting with Amputation . TECHNIQUE: Frontal, oblique, and lateral views of the right foot were obtained. COMPARISON: None. FINDINGS: Postsurgical changes of right first toe amputation and amputation of the distal half of the first metatarsal. An open wound is noted. Osteopenia is present, limiting evaluation for osseous erosion. Allowing for this and the absence of comparisons, diffuse lucency of the heads of the metatarsals without focal erosion. No acute fracture or malalignment. Prominent enthesophyte at the inferior calcaneus. Atherosclerosis and diffuse edema. IMPRESSION: 1. Postsurgical changes of amputation of the first toe and distal half of the first metatarsal. 2. Allowing for osteopenia, diffuse lucency of the metatarsal heads without focal erosion. This is equivocal for osteomyelitis. If there is continuing clinical concern, noncontrast MR could be obtained. Electronically signed by: Pancho Adler M.D. 06/03/2017 10:30 PM Dictated Date/Time: 06/03/2017 10:27 PM
[2017-06-04] VITALS (7 sets, daily range): BP systolic 131–182; BP diastolic 64–93; PULSE 77–82; TEMP 36.3–36.9; O2SAT 96–98
[2017-06-04] MEDS: INSULIN ASPART 100 UNITS/ML 3 ML PEN SC SCH ×4 (08:00→21:50)
[2017-06-04] MEDS: CALCIUM ACETATE 667MG GELCAP PO SCH ×3 (08:11→18:54)
[2017-06-04] MEDS: FUROSEMIDE 20 MG TAB PO SCH ×2 (08:12→17:15)
[2017-06-04] MEDS: CLOPIDOGREL BISULFATE 75 MG TAB PO SCH (08:12)
[2017-06-04] MEDS: HEPARIN SOD 5000 UNIT/0.5 ML CARP SQ SCH ×2 (08:13→21:00)
[2017-06-04] MEDS: LISINOPRIL 40 MG TAB PO SCH (08:13)
[2017-06-04] MEDS: METOPROLOL SUCC 50MG EXT REL TAB PO SCH ×2 (08:13→21:47)
[2017-06-04] MEDS: LACTOBACILLUS ACIDOPHILUS (FLORANEX) TAB PO SCH ×3 (08:14→18:54)
--- NOTE | 2017-06-04 08:36 | Hospitalist Progress Note ---
Hospitalist Progress Note Date of Service Jun 04, 2017. (Frances Dominique PA-C) Subjective Pt evaluation today including: conversation w/ patient, physical exam, chart review, lab review, review of studies Pain: None PO Intake: Good Voiding: no voiding problems The patient was seen and examined this morning. Pt reports doing well and is hopeful for discharge today. Discussion was held regarding jail antibiotics with the patient, and that infectious disease will be making recommendations for this. Discussion was also held about having a PICC line placed today if needed. He has been ambulating about the room without difficulty, reports no pain. I'd recommended that he does not bear weight on the foot until he is fitted with a hard soled shoe at least for pressure offloading. He hasn't been using the walker or cane either, so this was suggested and he seemed receptive to it. Pt is tolerating PO intake without difficulty, last BM was yesterday. Urinating with lasix. ROS: 6 point ROS reviewed and is otherwise negative. (Frances Dominique PA-C) Objective Vital Signs Date Time Temp Pulse Resp B/P (MAP) Pulse Ox O2 Delivery O2 Flow Rate FiO2 06/04/17 07:33 36.6 82 20 131/76 (94) 96 Room Air 06/03/17 23:20 Room Air 06/03/17 23:15 37.0 83 20 115/49 (71) 94 Room Air 06/03/17 18:56 37.1 62 18 153/71 (98) 96 Room Air 06/03/17 18:30 Room Air 06/03/17 17:35 36.9 60 149/76 (100) 06/03/17 17:15 65 152/56 06/03/17 17:00 70 149/67 06/03/17 16:45 72 139/71 06/03/17 16:30 75 125/69 06/03/17 16:15 72 172/90 06/03/17 16:00 72 172/78 06/03/17 15:45 72 172/78 06/03/17 15:30 79 178/74 06/03/17 15:15 65 147/62 06/03/17 15:00 66 155/77 06/03/17 14:45 81 176/80 06/03/17 14:30 79 183/73 06/03/17 14:15 70 176/70 06/03/17 14:00 82 190/54 06/03/17 13:45 75 177/47 06/03/17 13:30 74 177/72 06/03/17 13:15 65 147/62 06/03/17 13:00 81 157/71 06/03/17 12:45 53 133/67 06/03/17 12:25 36.9 53 133/67 (89) 06/03/17 11:55 36.9 65 19 96 06/03/17 10:46 36.6 66 19 150/80 (103) 96 Room Air (Frances Dominique PA-C) Physical Exam Notes: General: awake, alert, no apparent distress, morbidly obese, BMI equals 51.5 Head: Normocephalic, atraumatic ENT: PERRL, EOMI, no pharyngeal exudate, mucous membranes moist Chest: Clear to auscultation, on room air, no adventitious breath sounds Cardiac: Regular rate and rhythm, no murmur, no JVD, normal peripheral pulses, good capillary refill Abdominal: NABS x 4 quadrants, soft, nontender to palpation, no rebound, guarding or tenderness Extremities: Right foot wrapped in Ruiz, dressing appears C/D/I, +2 R peripheral edema and some warmth to touch, no erythema. LLE is without edema or erythema, good pulses bilaterally, calfs nontender to palpation Psych: Normal mood and affect, + sarcastic at times, joking manner Neuro: AAO x 3, speech is clear, no peripheral sensory deficits (Frances Dominique PA-C) Laboratory Results Last 24 Hours Test 06/03/17 11:33 06/03/17 12:16 06/03/17 14:41 06/03/17 18:38 Bedside Glucose 193 mg/dl 116 mg/dl Random Vancomycin Level 18.1 mcg/ml Hepatitis B Surface Antigen NEG Test 06/03/17 20:44 06/04/17 08:05 Bedside Glucose 185 mg/dl (Frances Dominique PA-C) Assessment and Plan 57yo male with ESRD on HD //Saturday, PAD, morbid obesity, HTN, T2DM, and chronic diastolic CHF -- transfer from [facility] after he underwent emergent 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 We were asked to accept him in transfer due to a lack of nephrology/hemodialysis services at [facility]. Upon arrival to [facility] he is in stable condition. S/p Right great toe amputation / right first metatarsal partial amputation -- 2nd to gas gangrene / cellulitis. - The batting machine operator insulation confirmed by phone that intra-op cultures were sent - Spoke with Micro at [place] on 06/03 but intraop cultures were NGTD and preliminary upon recall to [place] - will attempt later today. - Stop zosyn/vancomycin, day #2 - ID consulted - recommending ertapenum 500 mg daily for renal dosing x extended timeframe, 6 weeks per podiatry. Will ask podiatry/wound care to determine length of time pending wound response at time of dc. - PICC line consented with patient and ordered - Appreciate Podiatry consult- will need close follow up with Dr. Le ( podiatry [place]) within 1-2 days after discharge. - Vascular surgery - Dr. Solomon knows the patient well- no needs for emergent surgical intervention or debridement - can defer to vascular at [place] - appears the patient has good arterial circulation with palpable pulses in bilateral lower extremities ESRD on HD Tu//Fri - consult nephrology for HD assistance - appreciate recs - Outpatient at [facility] in [place] - Cr = 4.89 HTN - continue lisinopril 40 mg daily, metoprolol succ 50 BID T2DM - diet-controlled at home. BSG's ac/hs. T2DM diet. Novolog correction ordered. - slightly elevated in the 160s this morning - Discussion held regarding drinking boost with meals to assist with wound healing. PAD - continue plavix. s/p recent RLE PAD work at [facility]. Chronic diastolic CHF - appears compensated. Cont BB, RUIZ. Morbid obesity - BMI 51 Mild hyperkalemia - Resolved - 2nd to ESRD at time of admission DVT ppx: heparin subq 5000 BID CODE STATUS: FULL CODE Disposition: Patient from home, will need wound care follow-up for the toe amputation, PCP follow-up, and continue HD as regularly scheduled /Thur/Sat, possible d/c in 1-2 days (Frances Dominique, PA-C) I agree with PA assessment and plan and seen and examined pt myself Resting comfortably in bed VSS Labs reviewed Transfer from [place], s/p toe/metatarsal amputation with gas gangrene No intervention here per podiatry ID consulted, DC zosyn and start on ertapenem IV daily PICC line consent obtained Continue to monitor (Dmitry Dunbar, D.O.)
[2017-06-04 08:59] LABS: HEMATOCRIT 26.1 % (42-52); MEAN CELL VOLUME 90.6 fL (80-100); MEAN CORPUSCULAR HEMOGLOBIN 29.2 pg (25-34); MEAN CORPUSCULAR HGB CONC 32.2 g/dl (32-36); PLATELET COUNT 318 K/uL (130-400); RED BLOOD COUNT 2.88 M/uL (4.7-6.1); WHITE BLOOD COUNT 8.81 K/uL (4.8-10.8)
--- NOTE | 2017-06-04 09:40 | Nephrology Progress Note ---
Nephrology Progress Note Date of Service Jun 04, 2017. Chief Complaint Provide inpatient HD for this patient w/ ESRD Subjective Mr. Quinonez was seen & examined in his hospital room this morning. He dialyzed for 5 hours yesterday and had 2 L UF. AVF functioned well. There were no complications. Mr. Quinonez voices no new medical concerns. Review of Systems Constitutional: No fever Cardiovascular: No chest pain Respiratory: No dyspnea at rest Abdomen: No pain, No nausea, No vomiting Extremities: No leg edema A complete review of systems was performed. Pertinent positives are noted above. All other systems are negative. Vital Signs Last 8 Hrs Date Time Temp Pulse Resp B/P (MAP) Pulse Ox O2 Delivery O2 Flow Rate FiO2 06/04/17 08:38 96 Room Air 06/04/17 07:33 36.6 82 20 131/76 (94) 96 Room Air Last Recorded Weight Weight (Kilograms): 169.400 Physical Exam General Appearance: no apparent distress Head: normocephalic, atraumatic Eyes: PERRL, EOMI Neck: no adenopathy Respiratory/Chest: lungs clear Cardiovascular: regular rate, rhythm Abdomen/GI: normal bowel sounds, non tender, soft Extremities/Musculoskelatal: no calf tenderness, no pedal edema, + pertinent finding (AVF + bruit) Neurologic/Psych: alert, oriented x 3 Family History Cancer Diabetes mellitus Heart disease Hypertension Kidney disease Kidney stones Lung disease Negative for CKD / ESRD Social History Smokeless Tobacco Use: No Alcohol Use: none Drug Use: none Marital Status: single Housing Status: lives alone ([place]) 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 Lives alone. 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 Denies tobacco use. Laboratory Results Past 24 Hours 06/04/17 08:05 Test 06/03/17 11:33 06/03/17 12:16 06/03/17 14:41 06/03/17 18:38 Bedside Glucose 193 mg/dl (70-99) 116 mg/dl (70-99) Random Vancomycin Level 18.1 mcg/ml Hepatitis B Surface Antigen NEG (NEG) Test 06/03/17 20:44 06/04/17 08:05 06/04/17 08:17 Bedside Glucose 185 mg/dl (70-99) 147 mg/dl (70-99) Red Blood Count 2.88 M/uL (4.7-6.1) Mean Corpuscular Volume 90.6 fL (80-100) Mean Corpuscular Hemoglobin 29.2 pg (25-34) Mean Corpuscular Hemoglobin Concent 32.2 g/dl (32-36) RDW Standard Deviation 53.9 fL (36.4-46.3) RDW Coefficient of Variation 16.2 % (11.5-14.5) Mean Platelet Volume 10.0 fL (7.4-10.4) Random Vancomycin Level 18.3 mcg/ml Allergies Coded Allergies: No Known Allergies (Unverified , 05/19/17) Medications Current Inpatient Medications Medications (Trade) Dose Ordered Sig/Chavez Route Start Time Stop Time Status Last Admin Dose Admin Heparin Sodium (Porcine) (Heparin Sq 5000 Unit/0.5ml) 5,000 unit Q12 SQ 06/03/17 09:00 07/03/17 08:59 Acetaminophen (Tylenol Tab) 650 mg Q4H PRN PO 06/02/17 21:45 07/02/17 21:44 Al Hydrox/Mg Hydrox/Simethicone (Maalox Max Susp) 15 ml Q4H PRN PO 06/02/17 21:45 07/02/17 21:44 Ondansetron HCl (Zofran Inj) 4 mg Q6H PRN IV 06/02/17 21:45 07/02/17 21:44 Calcium Acetate (Phoslo Cap) 1,334 mg AC PO 06/03/17 07:00 07/03/17 06:59 06/04/17 08:11 1,334 MG Clopidogrel Bisulfate (plAVix TAB) 75 mg DAILY PO 06/03/17 09:00 07/03/17 08:59 06/04/17 08:12 75 MG Furosemide (Lasix Tab) 60 mg BID17 PO 06/03/17 09:00 07/03/17 08:59 06/04/17 08:12 60 MG Lisinopril (Zestril Tab) 40 mg DAILY PO 06/03/17 09:00 07/03/17 08:59 06/04/17 08:13 40 MG Metoprolol Succinate (Toprol Xl Tab) 50 mg BID PO 06/03/17 09:00 07/03/17 08:59 06/04/17 08:13 50 MG Insulin Aspart (novoLOG ASPART) SLIDING SCALE G... ACHS SC 06/03/17 07:00 07/03/17 06:59 06/03/17 23:14 2 UNITS Oxycodone HCl (Roxicodone Immediate Rel Tab) 5 mg Q4H PRN PO 06/02/17 21:45 06/16/17 21:44 Lactobacillus Acidophilus (Floranex Tab) 4 tab TIDM PO 06/03/17 07:30 07/03/17 07:29 06/04/17 08:14 4 TAB Miscellaneous (Iv Fluids Completed) 1 ea PRN PRN N/A 06/02/17 22:30 06/02/18 22:29 Vancomycin HCl (Consult) 1 ea UD PRN N/A 06/02/17 23:15 07/02/17 23:14 Piperacillin Sod/ Tazobactam Sod (Consult) 1 ea UD PRN N/A 06/02/17 23:15 07/02/17 23:14 Piperacillin Sod/ Tazobactam Sod 4.5 gm/Dextrose 120 ml @ 30 mls/hr Q12H IV 06/03/17 10:00 06/13/17 09:59 06/03/17 22:20 30 MLS/HR Impression (1) End-stage renal disease on hemodialysis (2) Gangrene (3) Obesity (4) Diabetes (5) Anemia Mr. 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 He has ESRD requiring TTS HD. Recommendations END STAGE RENAL DISEASE: -- Will schedule next HD for am -- Protect L wrist AVF HYPERTENSION: -- Blood pressure is currently controlled -- Monitor bp following UF with HD -- Continue home bp regimen of Metoprolol, Furosemide and Lisinopril ANEMIA: -- Will provide EIR w/ HD CKD-BMD: -- Continue Phos-lo w/ meals ID: -- On IV Zosyn. Pharmacy has been consulted to adjust dose for ESRD -- Podiatry consultation reviewed: Patient may require further surgery
[2017-06-04 09:43] LABS: CREATININE 4.89 mg/dl (0.60-1.40); POTASSIUM 4.8 mmol/L (3.5-5.1)
--- NOTE | 2017-06-04 09:47 | PROGRESS NOTE ---
DATE: 06/04/2017 The patient seen at bedside this morning. Denies fevers, chills or night sweats. Notes no foot pain, is currently ambulating with dressing on the right foot. PHYSICAL EXAMINATION: VITAL SIGNS: Stable and afebrile, temperature is 36.6 at bedside. LOWER EXTREMITY - VASCULAR: Posterior tibial pulses palpable bilateral lower extremities. Focal edema noticed to the right foot. DERMATOLOGIC: Large soft tissue defect packed over the hallux. Upon removal, area of necrotic tissue with exposed bone over the second metatarsal. This area does not bleed upon debridement. [place]. There is erythema around the dorsal aspect of the foot extending up into the ankle, relatively unchanged from yesterday. Minimal bleeding noted at the amp site which is packed open. NEUROLOGIC: Epicritic sensation grossly absent. MUSCULOSKELETAL: Amputation metatarsal level of the right hallux. IMPRESSION: 1. Status post first ray amp mid metatarsal level on 06/02/2017. 2. Cellulitis, left lower extremity. 3. Status post revascularization by Dr. Hinojosa on 05/16/2017. TREATMENT: There is a large soft tissue deficit noted over the hallux. X-rays show demineralization of the second with an area of necrotic, exposed bone of the second metatarsal. I spoke with the patient. He will need further debridement in the future. I spoke with Dr. Alonzo who noted the patient is here for hemodialysis. Recommended continue wet to dry dressing. Continue IV antibiotics, awaiting ID's input. Reconsult if needed.
[2017-06-04] MEDS: PIPERACILL/TAZOBAC IV 4.5 GM in DEXTROSE 5% 100ML IV SCH (10:01)
--- NOTE | 2017-06-04 11:12 | Pharmacy Progress Note ---
Pharmacy Abx Dose Short Note Date of Service Jun 04, 2017. Assessment & Plan Assessment 57 year old male receiving Vancomycin + Zosyn for treatment of gangrene/ cellulitis. Day # 3 of antimicrobial therapy. Pt has ESRD and receives HD on , , Fri. Per protocol, will order random vancomycin levels with AM labs on HD days. Will dose IV Vancomycin after HD on dialysis days based on pre-HD level. * 06/03: pre-HD level was 18.1 mcg/ml --> pt received Vanco 750mg IV x 1 dose after HD on 06/03 * 06/04: Random vancomycin level is 18.3 mcg/ml --> No HD ordered for today. No vancomycin dose needed as level is unlikely to change/decrease without HD. No Vancomycin today * 06/05: HD ordered for 06/05. Will not need a random level prior as we can use the level from 06/04. Will dose Vancomycin per pre-HD level of 18.3 mcg/ml. Will get back on track with ordering pre-HD levels on days of dialysis on 06/07 Plan Vancomycin * Random level of 18.3 mcg/mL is therapeutic. * No Vancomycin needed today as no HD ordered * Will give Vancomycin 750mg IV x 1 dose tomorrow (06/05) after HD Pharmacy will continue to follow and will adjust dose/frequency as necessary. Thank you.
--- NOTE | 2017-06-04 11:27 | Medical Consult ---
Consultation Date of Consultation: Jun 04, 2017. Attending Physician: Dmitry Dunbar D.O. Reason for Consultation: Status post toe amputation, antibiotic recommendations History of Present Illness 57-year-old male with history of diabetes mellitus and peripheral arterial disease, status post right leg arterial stenting procedure in late April, who underwent amputation the great toe because of gangrenous changes with gas in the soft tissue. He was transferred here to allow for inpatient dialysis. Has been started empirically on vancomycin and Zosyn. He has not had any reported recent fever. Pain is controlled. No culture results available from recent hospitalization as of yet. Tolerating his antibiotics without apparent difficulty x-rays of the foot read by me, shows no obvious new bony changes consistent with osteomyelitis. Past Medical/Surgical History Medical Problems: (1) CHF exacerbation Status: Acute Medical Problems: (1) Anemia (2) Bilateral lower leg cellulitis (3) Diabetes (4) End-stage renal disease on hemodialysis (5) Gangrene (6) Hypertension (7) Metabolic acidosis (8) Nephrotic syndrome (9) Obesity (10) Proteinuria (11) R great toe gangrene s/p amputation (12) Secondary hyperparathyroidism of renal origin Family History Cancer Diabetes mellitus Heart disease Hypertension Kidney disease Kidney stones Lung disease Social History Smoking Status: Never Smoker Smokeless Tobacco Use: No Alcohol Use: none Drug Use: none Marital Status: single Housing Status: lives alone 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) Allergies Coded Allergies: No Known Allergies (Unverified , 05/19/17) Current Inpatient Medications Current Inpatient Medications Medications (Trade) Dose Ordered Sig/Chavez Route Start Time Stop Time Status Last Admin Dose Admin Heparin Sodium (Porcine) (Heparin Sq 5000 Unit/0.5ml) 5,000 unit Q12 SQ 06/03/17 09:00 07/03/17 08:59 Acetaminophen (Tylenol Tab) 650 mg Q4H PRN PO 06/02/17 21:45 07/02/17 21:44 Al Hydrox/Mg Hydrox/Simethicone (Maalox Max Susp) 15 ml Q4H PRN PO 06/02/17 21:45 07/02/17 21:44 Ondansetron HCl (Zofran Inj) 4 mg Q6H PRN IV 06/02/17 21:45 07/02/17 21:44 Calcium Acetate (Phoslo Cap) 1,334 mg AC PO 06/03/17 07:00 07/03/17 06:59 06/04/17 08:11 1,334 MG Clopidogrel Bisulfate (plAVix TAB) 75 mg DAILY PO 06/03/17 09:00 07/03/17 08:59 06/04/17 08:12 75 MG Furosemide (Lasix Tab) 60 mg BID17 PO 06/03/17 09:00 07/03/17 08:59 06/04/17 08:12 60 MG Lisinopril (Zestril Tab) 40 mg DAILY PO 06/03/17 09:00 07/03/17 08:59 06/04/17 08:13 40 MG Metoprolol Succinate (Toprol Xl Tab) 50 mg BID PO 06/03/17 09:00 07/03/17 08:59 06/04/17 08:13 50 MG Insulin Aspart (novoLOG ASPART) SLIDING SCALE G... ACHS SC 06/03/17 07:00 07/03/17 06:59 06/03/17 23:14 2 UNITS Oxycodone HCl (Roxicodone Immediate Rel Tab) 5 mg Q4H PRN PO 06/02/17 21:45 06/16/17 21:44 Lactobacillus Acidophilus (Floranex Tab) 4 tab TIDM PO 06/03/17 07:30 07/03/17 07:29 06/04/17 08:14 4 TAB Miscellaneous (Iv Fluids Completed) 1 ea PRN PRN N/A 06/02/17 22:30 06/02/18 22:29 Vancomycin HCl (Consult) 1 ea UD PRN N/A 06/02/17 23:15 07/02/17 23:14 Piperacillin Sod/ Tazobactam Sod (Consult) 1 ea UD PRN N/A 06/02/17 23:15 07/02/17 23:14 Piperacillin Sod/ Tazobactam Sod 4.5 gm/Dextrose 120 ml @ 30 mls/hr Q12H IV 06/03/17 10:00 06/13/17 09:59 06/04/17 10:01 30 MLS/HR Heparin Sodium (Porcine) (Heparin Iv Bolus) 2,000 unit ONE IV 06/05/17 06:00 11/16/17 06:01 Heparin Sodium (Porcine) (Heparin Iv Bolus) 2,000 unit Q1H IV 06/05/17 06:00 06/05/17 08:01 Paricalcitol (Zemplar Inj) 3 mcg ONE IV. 06/05/17 06:00 06/05/17 14:00 Epoetin Kb (Procrit Inj) 10,000 units ONE IV. 06/05/17 06:00 06/05/17 14:00 Vancomycin HCl 750 mg/Sodium Chloride 265 ml @ 125 mls/hr 06/05/17@2000 IV 06/05/17 20:00 06/05/17 22:07 Review of Systems All systems were reviewed and are negative except as per HPI Physical Exam Date Time Temp Pulse Resp B/P (MAP) Pulse Ox O2 Delivery O2 Flow Rate FiO2 06/04/17 11:13 36.6 77 20 152/76 (101) 98 Room Air 06/04/17 08:38 96 Room Air 06/04/17 07:33 36.6 82 20 131/76 (94) 96 Room Air 06/04/17 07:30 Room Air 06/03/17 23:20 Room Air 06/03/17 23:15 37.0 83 20 115/49 (71) 94 Room Air 06/03/17 18:56 37.1 62 18 153/71 (98) 96 Room Air 06/03/17 18:30 Room Air 06/03/17 17:35 36.9 60 149/76 (100) 06/03/17 17:15 65 152/56 06/03/17 17:00 70 149/67 06/03/17 16:45 72 139/71 06/03/17 16:30 75 125/69 06/03/17 16:15 72 172/90 06/03/17 16:00 72 172/78 06/03/17 15:45 72 172/78 06/03/17 15:30 79 178/74 06/03/17 15:15 65 147/62 06/03/17 15:00 66 155/77 06/03/17 14:45 81 176/80 06/03/17 14:30 79 183/73 06/03/17 14:15 70 176/70 06/03/17 14:00 82 190/54 06/03/17 13:45 75 177/47 06/03/17 13:30 74 177/72 06/03/17 13:15 65 147/62 06/03/17 13:00 81 157/71 06/03/17 12:45 53 133/67 06/03/17 12:25 36.9 53 133/67 (89) 06/03/17 11:55 36.9 65 19 96 General Appearance: WD/WN, no apparent distress, + obese Head: normocephalic, atraumatic Eyes: normal inspection, EOMI, sclerae normal ENT: normal ENT inspection, hearing grossly normal, pharynx normal Neck: supple, no adenopathy, thyroid normal, trachea midline Respiratory/Chest: chest non-tender, lungs clear, normal breath sounds, no respiratory distress Cardiovascular: regular rate, rhythm, no gallop, no murmur Abdomen/GI: normal bowel sounds, non tender, soft, no organomegaly Back: normal inspection, no CVA tenderness Extremities/Musculoskelatal: no calf tenderness, non-tender Neurologic/Psych: alert, oriented x 3 Skin: normal color, no rash, + pertinent finding (Right foot wound with some foul odor, some erythema of the forefoot) Laboratory Results Last 24 Hours Test 06/03/17 11:33 06/03/17 12:16 06/03/17 14:41 06/03/17 18:38 Bedside Glucose 193 mg/dl 116 mg/dl Random Vancomycin Level 18.1 mcg/ml Hepatitis B Surface Antigen NEG Test 06/03/17 20:44 06/04/17 08:05 06/04/17 08:17 Bedside Glucose 185 mg/dl 147 mg/dl White Blood Count 8.81 K/uL Red Blood Count 2.88 M/uL Hemoglobin 8.4 g/dL Hematocrit 26.1 % Mean Corpuscular Volume 90.6 fL Mean Corpuscular Hemoglobin 29.2 pg Mean Corpuscular Hemoglobin Concent 32.2 g/dl RDW Standard Deviation 53.9 fL RDW Coefficient of Variation 16.2 % Platelet Count 318 K/uL Mean Platelet Volume 10.0 fL Sodium Level 134 mmol/L Potassium Level 4.8 mmol/L Chloride Level 100 mmol/L Carbon Dioxide Level 25 mmol/L Anion Gap 9.0 mmol/L Blood Urea Nitrogen 29 mg/dl Creatinine 4.89 mg/dl Est Creatinine Clear Calc Drug Dose 27.6 ml/min Estimated GFR () 14.3 Estimated GFR (Non- 12.4 BUN/Creatinine Ratio 6.0 Random Glucose 151 mg/dl Calcium Level 9.0 mg/dl Random Vancomycin Level 18.3 mcg/ml Assessment & Plan Patient with diabetes mellitus with severe arterial disease status post arterial stenting procedure with gangrene of the right great toe status post amputation. Appears to have evidence of surgical site infection, and agree with use of antibiotics. Would recommend IV ertapenem which would allow for outpatient therapy to allow patient to return to his vascular surgeon. Case discussed with hospitalist. Will follow
[2017-06-04] MEDS: BOOST GLUCOSE CONTROL PO SCH ×2 (12:59→17:15)
[2017-06-04] MEDS: ERTAPENEM IV 500 MG in SODIUM CHLORIDE 0.9% 50ML 50 ML IV SCH (13:02)
[2017-06-05] VITALS (12 sets, daily range): BP systolic 141–201; BP diastolic 57–87; PULSE 50–79; TEMP 36.4–37.2; O2SAT 97–98
[2017-06-05] MEDS ORDERED: EPOETIN ALFA 10,000 UNITS/ML VIAL IV. SCH (06:00)
[2017-06-05] MEDS ORDERED: PARICALCITOL 5 MCG/ML VIAL (ZEMPLAR) IV. SCH (06:00)
[2017-06-05] MEDS ORDERED: EPOETIN ALFA 10,000 UNITS/ML VIAL IV. ONE (06:00)
[2017-06-05] MEDS ORDERED: HEPARIN SOD (PORCINE) 1000 UNIT/ML 10 ML VIAL IV SCH (06:00)
[2017-06-05 06:47] LABS: BUN/CREATININE RATIO 6.2 (10-20); CALCIUM 8.9 mg/dl (8.5-10.1); POTASSIUM 4.6 mmol/L (3.5-5.1)
[2017-06-05 06:59] LABS: CREATININE 6.15 mg/dl (0.60-1.40)
[2017-06-05] MEDS: INSULIN ASPART 100 UNITS/ML 3 ML PEN SC SCH ×4 (07:52→21:47)
[2017-06-05] MEDS: LISINOPRIL 40 MG TAB PO SCH (07:53)
[2017-06-05] MEDS: FUROSEMIDE 20 MG TAB PO SCH ×2 (07:53→17:01)
[2017-06-05] MEDS: METOPROLOL SUCC 50MG EXT REL TAB PO SCH ×2 (07:53→21:54)
[2017-06-05] MEDS: BOOST GLUCOSE CONTROL PO SCH ×3 (08:00→21:47)
[2017-06-05] MEDS: HEPARIN SOD 5000 UNIT/0.5 ML CARP SQ SCH ×2 (08:25→21:00)
[2017-06-05] MEDS: CALCIUM ACETATE 667MG GELCAP PO SCH ×3 (08:26→17:01)
[2017-06-05] MEDS: LACTOBACILLUS ACIDOPHILUS (FLORANEX) TAB PO SCH ×3 (08:27→17:01)
[2017-06-05] MEDS: CLOPIDOGREL BISULFATE 75 MG TAB PO SCH (08:27)
--- NOTE | 2017-06-05 10:06 | Nephrology Progress Note ---
Nephrology Progress Note Date of Service Jun 05, 2017. Chief Complaint Provide inpatient HD for this patient w/ ESRD Subjective Mr. Quinonez was seen & examined in preparation for HD this morning. He denies fever, angina or dyspnea. He is anxious to return home. Review of Systems Constitutional: No fever Cardiovascular: No chest pain Respiratory: No dyspnea at rest Abdomen: No pain, No nausea, No vomiting Extremities: No leg edema A complete review of systems was performed. Pertinent positives are noted above. All other systems are negative. Vital Signs Last 8 Hrs Date Time Temp Pulse Resp B/P (MAP) Pulse Ox O2 Delivery O2 Flow Rate FiO2 06/05/17 06:30 36.8 50 18 144/57 (86) 97 Room Air Last Recorded Weight Weight (Kilograms): 169.900 Physical Exam General Appearance: no apparent distress Head: normocephalic, atraumatic Eyes: PERRL, EOMI Neck: no adenopathy Respiratory/Chest: lungs clear Cardiovascular: regular rate, rhythm Abdomen/GI: normal bowel sounds, non tender, soft Extremities/Musculoskelatal: no pedal edema, + pertinent finding (AVf + bruit) Neurologic/Psych: alert, oriented x 3 Family History Cancer Diabetes mellitus Heart disease Hypertension Kidney disease Kidney stones Lung disease Negative for CKD / ESRD Social History Smokeless Tobacco Use: No Alcohol Use: none Drug Use: none Marital Status: single Housing Status: lives alone ([place]) 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 Lives alone. 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 Denies tobacco use. Laboratory Results Past 24 Hours 06/05/17 05:09 Test 06/04/17 12:24 06/04/17 16:56 06/04/17 20:41 06/05/17 05:09 Bedside Glucose 175 mg/dl (70-99) 157 mg/dl (70-99) 164 mg/dl (70-99) Anion Gap 12.0 mmol/L (3-11) Est Creatinine Clear Calc Drug Dose 22.0 ml/min Estimated GFR () 10.9 Estimated GFR (Non- 9.4 BUN/Creatinine Ratio 6.2 (10-20) Calcium Level 8.9 mg/dl (8.5-10.1) Test 06/05/17 06:37 Bedside Glucose 142 mg/dl (70-99) Allergies Coded Allergies: No Known Allergies (Unverified , 05/19/17) Medications Current Inpatient Medications Medications (Trade) Dose Ordered Sig/Chavez Route Start Time Stop Time Status Last Admin Dose Admin Heparin Sodium (Porcine) (Heparin Sq 5000 Unit/0.5ml) 5,000 unit Q12 SQ 06/03/17 09:00 07/03/17 08:59 Acetaminophen (Tylenol Tab) 650 mg Q4H PRN PO 06/02/17 21:45 07/02/17 21:44 Al Hydrox/Mg Hydrox/Simethicone (Maalox Max Susp) 15 ml Q4H PRN PO 06/02/17 21:45 07/02/17 21:44 Ondansetron HCl (Zofran Inj) 4 mg Q6H PRN IV 06/02/17 21:45 07/02/17 21:44 Calcium Acetate (Phoslo Cap) 1,334 mg AC PO 06/03/17 07:00 07/03/17 06:59 06/05/17 08:26 1,334 MG Clopidogrel Bisulfate (plAVix TAB) 75 mg DAILY PO 06/03/17 09:00 07/03/17 08:59 06/05/17 08:27 75 MG Furosemide (Lasix Tab) 60 mg BID17 PO 06/03/17 09:00 07/03/17 08:59 06/04/17 17:15 60 MG Lisinopril (Zestril Tab) 40 mg DAILY PO 06/03/17 09:00 07/03/17 08:59 06/04/17 08:13 40 MG Metoprolol Succinate (Toprol Xl Tab) 50 mg BID PO 06/03/17 09:00 07/03/17 08:59 06/04/17 21:47 50 MG Insulin Aspart (novoLOG ASPART) SLIDING SCALE G... ACHS SC 06/03/17 07:00 07/03/17 06:59 06/04/17 21:50 1 UNITS Oxycodone HCl (Roxicodone Immediate Rel Tab) 5 mg Q4H PRN PO 06/02/17 21:45 06/16/17 21:44 Lactobacillus Acidophilus (Floranex Tab) 4 tab TIDM PO 06/03/17 07:30 07/03/17 07:29 06/05/17 08:27 4 TAB Miscellaneous (Iv Fluids Completed) 1 ea PRN PRN N/A 06/02/17 22:30 06/02/18 22:29 Vancomycin HCl (Consult) 1 ea UD PRN N/A 06/02/17 23:15 07/02/17 23:14 Paricalcitol (Zemplar Inj) 3 mcg ONE IV. 06/05/17 06:00 06/05/17 14:00 Epoetin Kb (Procrit Inj) 10,000 units ONE IV. 06/05/17 06:00 06/05/17 14:00 Ertapenem 500 mg/ Sodium Chloride 55 ml @ 120 mls/hr Q24H IV 06/04/17 12:00 06/14/17 11:59 06/04/17 13:02 120 MLS/HR Enteral Nutritional Formula (Boost Glucose Control) 1 can AC PO 06/04/17 12:00 07/04/17 11:59 06/04/17 12:59 1 CAN Heparin Sodium (Porcine) (Heparin 10 Unit/ ml 5 ml Flush) 5 ml PRN PRN FLUSH 06/04/17 16:15 07/04/17 16:14 06/05/17 05:52 5 ML Impression (1) End-stage renal disease on hemodialysis (2) Gangrene (3) Obesity (4) Diabetes (5) Anemia Mr. 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 He has ESRD requiring TTS HD. Recommendations END STAGE RENAL DISEASE: -- HD today as per chronic outpatient orders -- Protect L wrist AVF -- If discharge is anticipated please notify the [place] dialysis unit [phone]) to resume his outpatient TTS schedule HYPERTENSION: -- Blood pressure is acceptable. Continue current medical regimen. No change at present. ANEMIA: -- Will provide ERI w/ HD CKD-BMD: -- Continue Phos-lo w/ meals ID: -- ID recommendations reviewed. Patient has been transitioned to IV Ertapenem. Pharmacy has been consulted to adjust dose for ESRD
[2017-06-05] MEDS: HEPARIN SOD (PORCINE) 1000 UNIT/ML 10 ML VIAL IV SCH ×3 (10:45→13:45)
--- NOTE | 2017-06-05 11:50 | Dialysis Progress Note ---
Hemodialysis Note Date of Service Jun 05, 2017. Chief Complaint Provide inpatient HD for this patient w/ ESRD Review of Systems A complete review of systems was performed. Pertinent positives are noted above. All other systems are negative. 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 Denies tobacco use. Laboratory Results Past 24 Hours 06/05/17 05:09 Test 06/04/17 12:24 06/04/17 16:56 06/04/17 20:41 06/05/17 05:09 Bedside Glucose 175 mg/dl (70-99) 157 mg/dl (70-99) 164 mg/dl (70-99) Anion Gap 12.0 mmol/L (3-11) Est Creatinine Clear Calc Drug Dose 22.0 ml/min Estimated GFR () 10.9 Estimated GFR (Non- 9.4 BUN/Creatinine Ratio 6.2 (10-20) Calcium Level 8.9 mg/dl (8.5-10.1) Test 06/05/17 06:37 Bedside Glucose 142 mg/dl (70-99) Allergies Coded Allergies: No Known Allergies (Unverified , 05/19/17) Medications Current Inpatient Medications Medications (Trade) Dose Ordered Sig/Chavez Route Start Time Stop Time Status Last Admin Dose Admin Heparin Sodium (Porcine) (Heparin Sq 5000 Unit/0.5ml) 5,000 unit Q12 SQ 06/03/17 09:00 07/03/17 08:59 Acetaminophen (Tylenol Tab) 650 mg Q4H PRN PO 06/02/17 21:45 07/02/17 21:44 Al Hydrox/Mg Hydrox/Simethicone (Maalox Max Susp) 15 ml Q4H PRN PO 06/02/17 21:45 07/02/17 21:44 Ondansetron HCl (Zofran Inj) 4 mg Q6H PRN IV 06/02/17 21:45 07/02/17 21:44 Calcium Acetate (Phoslo Cap) 1,334 mg AC PO 06/03/17 07:00 07/03/17 06:59 06/05/17 08:26 1,334 MG Clopidogrel Bisulfate (plAVix TAB) 75 mg DAILY PO 06/03/17 09:00 07/03/17 08:59 06/05/17 08:27 75 MG Furosemide (Lasix Tab) 60 mg BID17 PO 06/03/17 09:00 07/03/17 08:59 06/04/17 17:15 60 MG Lisinopril (Zestril Tab) 40 mg DAILY PO 06/03/17 09:00 07/03/17 08:59 06/04/17 08:13 40 MG Metoprolol Succinate (Toprol Xl Tab) 50 mg BID PO 06/03/17 09:00 07/03/17 08:59 06/04/17 21:47 50 MG Insulin Aspart (novoLOG ASPART) SLIDING SCALE G... ACHS SC 06/03/17 07:00 07/03/17 06:59 06/04/17 21:50 1 UNITS Oxycodone HCl (Roxicodone Immediate Rel Tab) 5 mg Q4H PRN PO 06/02/17 21:45 06/16/17 21:44 Lactobacillus Acidophilus (Floranex Tab) 4 tab TIDM PO 06/03/17 07:30 07/03/17 07:29 06/05/17 08:27 4 TAB Miscellaneous (Iv Fluids Completed) 1 ea PRN PRN N/A 06/02/17 22:30 06/02/18 22:29 Vancomycin HCl (Consult) 1 ea UD PRN N/A 06/02/17 23:15 07/02/17 23:14 Paricalcitol (Zemplar Inj) 3 mcg ONE IV. 06/05/17 06:00 06/05/17 14:00 Epoetin Kb (Procrit Inj) 10,000 units ONE IV. 06/05/17 06:00 06/05/17 14:00 Ertapenem 500 mg/ Sodium Chloride 55 ml @ 120 mls/hr Q24H IV 06/04/17 12:00 06/14/17 11:59 06/04/17 13:02 120 MLS/HR Enteral Nutritional Formula (Boost Glucose Control) 1 can AC PO 06/04/17 12:00 07/04/17 11:59 06/04/17 12:59 1 CAN Heparin Sodium (Porcine) (Heparin 10 Unit/ ml 5 ml Flush) 5 ml PRN PRN FLUSH 06/04/17 16:15 07/04/17 16:14 06/05/17 05:52 5 ML Impression (1) End-stage renal disease on hemodialysis (2) Gangrene (3) Obesity (4) Diabetes (5) Anemia Mr. 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 He has ESRD requiring TTS HD. Recommendations Called to see patient on dialysis. production staff worker reports difficulty w/ AVF. Arterial needle infiltrated. 2nd needle placement was complicated by high arterial pressure. Treatment was stopped. AVF + bruit. Will rest fistula today and schedule next HD for am. If discharge is anticipated patient will need to be scheduled for HD at [facility] for 2nd or 3rd shift on Friday. Otherwise will provide dialysis as inpatient tomorrow am.
[2017-06-05] MEDS ORDERED: LCTX PO (12:57)
[2017-06-05] MEDS ORDERED: ERTA1INJ IV (12:57)
--- NOTE | 2017-06-05 13:19 | Discharge Instructions ---
Discharge Instructions Date of Service Jun 05, 2017. Admission Reason for Admission: Gangrene Discharge Discharge Diagnosis / Problem: Gangrene Discharge Goals Goal(s): Decrease discomfort, Improve function, Diagnostic testing, Therapeutic intervention Activity Recommendations Activity Limitations: resume your previous activity (as tolerated. Avoid weight bearing on right foot) . Instructions / Follow-Up Instructions / Follow-Up You were admitted to the hospital following your amputation for IV antibiotics and to receive your dialysis. You have been set up with the medical treatment unit (MTU) to receive your daily IV antibiotic over the next 6 weeks. You will also need periodic lab draws while on this antibiotic. You are now medically stable for discharge. Medications: *STOP Levaquin. *You will need to take ertapenem 500 mg IV daily for the next 6 weeks. This will be administered through the MTU. *You may take the probiotic 3 times a day with meals while on the antibiotic. *Continue your home medications as prescribed. Follow up: *Please go to the dialysis clinic tomorrow, Friday, as you did not receive dialysis today. *You will be scheduled for a follow up appointment at the wound care clinic. *You will also be scheduled to follow up with infectious disease (Dr. Peterson ) in [place]. *You have been scheduled for a follow up appointment with your primary care provider next week. *You will need to come to [facility] daily for your antibiotic. Please seek medical attention if you experience fevers, chills, sweats, dizziness/lightheadedness, loss of consciousness, chest pain, shortness of breath, nausea, vomiting, numbness or tingling. Current Hospital Diet Patient's current hospital diet: Diabetes Type 2 Diet, Renal Diet Discharge Diet Recommended Diet: Diabetes Type 2 Diet, Renal Diet Pending Studies Studies pending at discharge: no Medical Emergencies . Who to Call and When: Medical Emergencies: If at any time you feel your situation is an emergency, please call 911 immediately. . Non-Emergent Contact Non-Emergency issues call your: Primary Care Provider, Peanut Blancher, Specialist (Infectious disease, wound care) Call Non-Emergent contact if: you have a fever, your pain is not controlled, your pain is worsening, your pain is unusual for you, your pain is concerning you, wound has increased drainage, wound has increased redness, wound has increased pain, you have any medication questions . Past History Medical & Surgical History: (1) R great toe gangrene s/p amputation . "Provider Documentation" section prepared by Anisha Pulliam. . VTE Core Measure Inpt VTE Proph given/why not?: Unfractionated heparin SQ
--- NOTE | 2017-06-05 13:34 | Discharge Summary ---
Discharge Summary Date of Service Jun 05, 2017. (Anisha Pulliam .NIGEL) Discharge Summary Admission Date: Jun 04, 2017 at 09:08 Discharge Date: Jun 05, 2017 Discharge Disposition: Home Principal Diagnosis: Gangrene Procedures: R FOOT MIN 3 VIEWS ROUTINE CLINICAL HISTORY: 57 years-old Male presenting with Amputation . TECHNIQUE: Frontal, oblique, and lateral views of the right foot were obtained. COMPARISON: None. FINDINGS: Postsurgical changes of right first toe amputation and amputation of the distal half of the first metatarsal. An open wound is noted. Osteopenia is present, limiting evaluation for osseous erosion. Allowing for this and the absence of comparisons, diffuse lucency of the heads of the metatarsals without focal erosion. No acute fracture or malalignment. Prominent enthesophyte at the inferior calcaneus. Atherosclerosis and diffuse edema. IMPRESSION: 1. Postsurgical changes of amputation of the first toe and distal half of the first metatarsal. 2. Allowing for osteopenia, diffuse lucency of the metatarsal heads without focal erosion. This is equivocal for osteomyelitis. If there is continuing clinical concern, noncontrast MR could be obtained. Consultations: Infectious disease Podiatry Nephrology (Anisha Pulliam PA-C) Medication Reconciliation New Medications: Ertapenem Sodium (Invanz) 1 Gm Inj 500 MG IV Q24H for 42 Days, VIAL Lactobacillus Acidophilus (Floranex) 1 Tab Tab 4 TAB PO TIDM for 30 Days, #360 TAB Continued Medications: Calcium Acetate (Phoslo 667 Mg) 667 Mg Cap 2 CAPSULES PO WM, CAP Clopidogrel (Plavix) 75 Mg Tab 75 MG PO DAILY, TAB Furosemide (Furosemide) 20 Mg Tab 60 MG PO BID Lisinopril (Zestril) 40 Mg Tab 40 MG PO DAILY, TAB Metoprolol Succ (Toprol Xl) (Toprol-Xl) 50 Mg Tabcr 50 MG PO BID, #30 TAB Discontinued Medications: Levofloxacin (Levaquin) 250 Mg Tab 250 MG PO DAILY for 10 Days, TAB Discharge Exam Patient reports feeling well, denies any complaints. He states his RLE is numb and he has chronic tingling/neuropathy in his feet bilaterally. The patient denies fevers, chills, sweats, chest pain, palpitations, claudication, cough, wheezing, shortness of breath, nausea, vomiting, abdominal pain, dysuria, hematuria, urinary retention, paralysis, weakness. Review of Systems: Constitutional: No fever, No chills, No sweats Eyes: No worsening of vision, No eye pain, No diplopia ENT: No hearing loss, No nasal symptoms, No trouble swallowing Respiratory: No cough, No wheezing, No shortness of breath Cardiovascular: No chest pain, No claudication, No palpitations Abdomen: No pain, No nausea, No vomiting Genitourinary - Male: No hematuria, No dysuria, No urinary retention Neurologic: + numbness/tingling (chronic), No paralysis, No weakness Integumentary: No rash, No itch, No color change Physical Exam: General Appearance: WD/WN, no apparent distress, + obese Eyes: normal inspection, PERRL, EOMI ENT: normal ENT inspection, hearing grossly normal, pharynx normal Neck: supple, no JVD, trachea midline Respiratory/Chest: lungs clear, normal breath sounds, no respiratory distress Cardiovascular: regular rate, rhythm, no gallop, no murmur Abdomen / GI: normal bowel sounds, non tender, soft Extremities: no calf tenderness, + swelling (1-2+ pitting edema RLE), + pertinent finding (R foot in lyle bandage) Neurologic/Psychiatric: alert, normal mood/affect, oriented x 3 Skin: normal color, warm/dry, no rash (Anisha Pulliam, PATyroneC) Hospital Course 57 y/o male with ESRD on HD //Friday, PAD, morbid obesity, HTN, T2DM , and chronic diastolic CHF who presents from [facility] s/p 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 Pt transferred from [place] as they do not have dialysis services. S/p Right great toe amputation / right first metatarsal partial amputation secondary to gas gangrene / cellulitis--stable - The clean room assembler confirmed by phone that intra-op cultures were sent - Spoke with Micro at [place] on 06/03 but intraop cultures were NGTD - Stop zosyn/vancomycin - ID consulted - recommending ertapenem 500 mg daily for renal dosing x extended timeframe, 6 weeks per podiatry. Pt will receive through MTU. Lab monitoring with CBC, CMP - PICC line consented with patient and placed - Appreciate Podiatry consult: recommend future debridement. No intervention here at this time. - Will need close follow up with Dr. Le (podiatry [place]) within 1-2 days after discharge. Pt scheduled for f/u at wound care clinic 06/09, podiatry can see then - Vascular surgery - Dr. Solomon knows the patient well- no needs for emergent surgical intervention or debridement - can defer to vascular at [place] - Appears the patient has good arterial circulation with palpable pulses in bilateral lower extremities ESRD on HD //Sat - Consult nephrology for HD assistance - appreciate recs - Outpatient at [facility] in [place] - Pt unable to undergo dialysis on 06/05 at [facility] as could not access fistula. Outpt clinic in [place] called, and they can schedule pt for 06/06 HTN - Continue lisinopril 40 mg PO qd, metoprolol succinate 50 mg PO BID T2DM - Diet-controlled at home. - Insulin sliding scale - Check BSGs q ac and qhs - Discussion held regarding drinking boost with meals to assist with wound healing. PAD - Continue Plavix. s/p recent RLE PAD work at [facility]. Pt follows with Dr. Hinojosa Chronic diastolic CHF--stable - Appears compensated. Cont BB, LYLE. Morbid obesity - BMI 51 Mild hyperkalemia - Resolved - 2nd to ESRD at time of admission DVT prophylaxis -Heparin 5000 units SC q12h Code Status -Level I, FULL RESUSCITATION STATUS Dispo -Pt will f/u with MTU daily for abx -Scheduled for wound care/podiatry follow up, infectious disease f/u, PCP f/u Total Time Spent: Greater than 30 minutes This includes examination of the patient, discharge planning, medication reconciliation, and communication with other providers. (Anisha Pulliam ., PA-C) Discharge Instructions Please refer to the electronic Patient Visit Report (Discharge Instructions) for additional information. (Anisha Pulliam ., PA-C) Additional Copies To Ashley Villagran DO Reviewed: Pt Seen/Exam by Me (Danay Florez DO) History Pt continues to feel improved. Tolerating PO without issue. No chest pain or SOB. Pain to foot is minimal. Agree with HPI/ROS as noted. (Danay Florez DO) General Appearance: no apparent distress, obese Respiratory: lungs clear, normal breath sounds, no respiratory distress Cardiovascular: normal peripheral pulses, regular rate, rhythm Gastrointestinal: non tender, soft Extremities: non-tender, no pedal edema Neurologic/Psychiatric: alert, oriented x 3 Skin Characteristics: normal color, warm/dry (Danay Florez, DO) Assessment/Plan Agree with plan as outlined above HD today and set up for tomorrow on d/c as well PICC placed Ongoing IV abx on d/c f/u [facility] vs podiatry on d/c (Danay Florez, DO)
[2017-06-05] MEDS: ERTAPENEM IV 500 MG in SODIUM CHLORIDE 0.9% 50ML 50 ML IV SCH (13:44)
--- NOTE | 2017-06-05 14:12 | Hospitalist Progress Note ---
Hospitalist Progress Note Date of Service Jun 05, 2017. (Anisha Pulliam .NIGEL) Subjective Pt evaluation today including: conversation w/ patient, physical exam, chart review, lab review, review of inpatient medication list Patient reports feeling well, denies any complaints. He states his RLE is numb and he has chronic tingling/neuropathy in his feet bilaterally. The patient denies fevers, chills, sweats, chest pain, palpitations, claudication, cough, wheezing, shortness of breath, nausea, vomiting, abdominal pain, dysuria, hematuria, urinary retention, paralysis, weakness. Additional Comments: See HPI for pertinent positives and negatives. All other systems reviewed and negative. (Anisha Pulliam PA-C) Objective Vital Signs Date Time Temp Pulse Resp B/P (MAP) Pulse Ox O2 Delivery O2 Flow Rate FiO2 06/05/17 13:19 37.0 71 141/74 (96) 06/05/17 10:45 71 147/78 06/05/17 10:30 71 158/81 06/05/17 10:15 71 158/81 06/05/17 10:00 71 184/77 06/05/17 09:45 78 185/76 06/05/17 09:15 37.2 71 167/76 (106) 06/05/17 07:30 Room Air 06/05/17 06:30 36.8 50 18 144/57 (86) 97 Room Air 06/05/17 00:49 Room Air 06/04/17 23:00 36.9 77 16 148/64 (92) 97 Room Air 06/04/17 21:43 79 182/93 (122) 06/04/17 16:32 36.3 78 20 171/78 (109) 98 Room Air 06/04/17 15:30 98 Room Air (Anisha Pulliam PA-C) Physical Exam Notes: General appearance: +Morbidly obese. Well-developed, well-nourished, no apparent distress Head: Normocephalic, atraumatic Eyes: Normal inspection, PERRL, EOMI ENT: Normal ENT inspection, hearing grossly normal, pharynx normal Neck: Supple, no JVD, trachea midline Respiratory/Chest: Lungs clear to auscultation, normal breath sounds, no respiratory distress Cardiovascular: Regular rate & rhythm, no gallop, no murmur Abdomen/GI: Normal bowel sounds, non-tender, soft Extremities/Musculoskeletal: +R foot wrapped in lyle bandage. 1-2+ pitting edema RLE. Chronic venous stasis changes. No calf tenderness Neurological/Psych: Alert, normal mood/affect, oriented x 3 Skin: Normal color, warm/dry, no rash (Anisha Pulliam ., PA-C) Laboratory Results Last 24 Hours Test 06/04/17 16:56 06/04/17 20:41 06/05/17 05:09 06/05/17 06:37 Bedside Glucose 157 mg/dl 164 mg/dl 142 mg/dl Sodium Level 133 mmol/L Potassium Level 4.6 mmol/L Chloride Level 100 mmol/L Carbon Dioxide Level 21 mmol/L Anion Gap 12.0 mmol/L Blood Urea Nitrogen 39 mg/dl Creatinine 6.15 mg/dl Est Creatinine Clear Calc Drug Dose 22.0 ml/min Estimated GFR () 10.9 Estimated GFR (Non- 9.4 BUN/Creatinine Ratio 6.2 Random Glucose 150 mg/dl Calcium Level 8.9 mg/dl Test 06/05/17 12:07 Bedside Glucose 154 mg/dl (Anisha Pulliam ., PA-C) Assessment and Plan 57 y/o male with ESRD on HD //Friday, PAD, morbid obesity, HTN, T2DM , and chronic diastolic CHF who presents from [facility] s/p 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 Pt transferred from [place] as they do not have dialysis services. S/p Right great toe amputation / right first metatarsal partial amputation secondary to gas gangrene / cellulitis--stable - The registrar assistant confirmed by phone that intra-op cultures were sent - Spoke with Micro at [facility] on 06/03 but intraop cultures were NGTD - Stop zosyn/vancomycin - ID consulted - recommending ertapenem 500 mg daily for renal dosing x extended timeframe, 6 weeks per podiatry. Pt will receive through [facility]. Lab monitoring with CBC, CMP - PICC line consented with patient and placed - Appreciate Podiatry consult: recommend future debridement. No intervention here at this time. - Will need close follow up with Dr. Le (podiatry [facility]) within 1-2 days after discharge. Pt scheduled for f/u at wound care clinic 06/09, podiatry can see then - Vascular surgery - Dr. Solomon knows the patient well- no needs for emergent surgical intervention or debridement - can defer to vascular at [facility] - Appears the patient has good arterial circulation with palpable pulses in bilateral lower extremities ESRD on HD /Th/Sat - Consult nephrology for HD assistance - appreciate recs - Outpatient at [facility] - Pt unable to undergo dialysis on 06/05 at [facility] as could not access fistula - Will attempt dialysis again 06/06 HTN - Continue lisinopril 40 mg PO qd, metoprolol succinate 50 mg PO BID T2DM - Diet-controlled at home. - Insulin sliding scale - Check BSGs q ac and qhs - Discussion held regarding drinking boost with meals to assist with wound healing. PAD - Continue Plavix. s/p recent RLE PAD work at [facility]. Pt follows with Dr. Hinojosa Chronic diastolic CHF--stable - Appears compensated. Cont BB, LYLE. Morbid obesity - BMI 51 Mild hyperkalemia - Resolved - 2nd to ESRD at time of admission DVT prophylaxis -Heparin 5000 units SC q12h Code Status -Level I, FULL RESUSCITATION STATUS Dispo -D/C canceled for 06/05 as unable to coordinate outpt dialysis and [facility] -Pt will f/u with [facility] daily for abx -Scheduled for wound care/podiatry follow up, infectious disease f/u, PCP f/u (Anisha Pulliam ., PA-C) Reviewed: Pt Seen/Exam by Me (Danay Florez, DO) History Pt is doing well. States his R foot "feels fine". Tolerating PO without issue. No chest pain or SOB. Agree with HPI/ROS as noted. (Danay Florez, DO) General Appearance: no apparent distress, obese Eye Exam: bilateral eye normal inspection, bilateral eye EOMI Respiratory: normal breath sounds, no respiratory distress Cardiovascular: normal peripheral pulses, regular rate, rhythm Gastrointestinal: non tender, soft Extremities: non-tender, no pedal edema Neurologic/Psychiatric: alert, oriented x 3 Skin Characteristics: warm/dry, other (R foot bandage is clean and dry) (Danay Florez, DO) Assessment/Plan Agree with plan as outlined above Possible d/c, however pt's HD cannot guarantee HD tomorrow and issues with setting up [facility] HD PICC placed f/u [facility] vs podiatry on d/c (Danay Florez, DO)
[2017-06-05] MEDS ORDERED: VANCOMYCIN INJ 750 MG in SODIUM CHLORIDE 0.9% 250ML 250 ML IV SCH (20:00)
[2017-06-05] MEDS ORDERED: LISINOPRIL 40 MG TAB PO ONE (22:15)
[2017-06-06] VITALS (21 sets, daily range): BP systolic 108–186; BP diastolic 45–93; PULSE 51–90; TEMP 36.5–37; O2SAT 98
[2017-06-06 06:15] LABS: HEMATOCRIT 25.9 % (42-52); MEAN CELL VOLUME 89.3 fL (80-100); MEAN CORPUSCULAR HGB CONC 32.4 g/dl (32-36); MEAN PLATELET VOLUME 9.7 fL (7.4-10.4); PLATELET COUNT 310 K/uL (130-400); WHITE BLOOD COUNT 8.56 K/uL (4.8-10.8)
[2017-06-06 06:59] LABS: BUN/CREATININE RATIO 6.6 (10-20); CALCIUM 8.8 mg/dl (8.5-10.1); CREATININE 6.52 mg/dl (0.60-1.40); POTASSIUM 4.9 mmol/L (3.5-5.1)
[2017-06-06] MEDS: INSULIN ASPART 100 UNITS/ML 3 ML PEN SC SCH ×2 (08:00→12:00)
[2017-06-06] MEDS: BOOST GLUCOSE CONTROL PO SCH ×2 (08:00→12:00)
[2017-06-06] MEDS: LACTOBACILLUS ACIDOPHILUS (FLORANEX) TAB PO SCH ×2 (08:47→14:31)
[2017-06-06] MEDS: CALCIUM ACETATE 667MG GELCAP PO SCH ×2 (08:47→14:31)
[2017-06-06] MEDS: FUROSEMIDE 20 MG TAB PO SCH (08:47)
[2017-06-06] MEDS: METOPROLOL SUCC 50MG EXT REL TAB PO SCH (08:47)
[2017-06-06] MEDS: CLOPIDOGREL BISULFATE 75 MG TAB PO SCH (08:48)
[2017-06-06] MEDS: HEPARIN SOD 5000 UNIT/0.5 ML CARP SQ SCH (08:48)
[2017-06-06] MEDS: LISINOPRIL 40 MG TAB PO SCH (08:48)
[2017-06-06] MEDS ORDERED: EPOETIN ALFA 10,000 UNITS/ML VIAL IV SCH (09:00)
[2017-06-06] MEDS ORDERED: HEPARIN SOD (PORCINE) 1000 UNIT/ML 10 ML VIAL IV SCH (09:00)
[2017-06-06] MEDS: HEPARIN SOD (PORCINE) 1000 UNIT/ML 10 ML VIAL IV SCH ×3 (10:11→12:15)
--- NOTE | 2017-06-06 11:02 | Nephrology Progress Note ---
Nephrology Progress Note Date of Service Jun 06, 2017. Chief Complaint Provide inpatient HD for this patient w/ ESRD Subjective Mr. Quinonez was seen & examined in preparation for HD this morning. He currently denies fever, angina, dyspnea or uremic symptoms. He is anxious to return home as soon as outpatient antibiotic therapy can be set up. Review of Systems Constitutional: No fever Cardiovascular: No chest pain Respiratory: No dyspnea at rest Abdomen: No pain, No nausea, No vomiting Extremities: No leg edema A complete review of systems was performed. Pertinent positives are noted above. All other systems are negative. Vital Signs Last 8 Hrs Date Time Temp Pulse Resp B/P (MAP) Pulse Ox O2 Delivery O2 Flow Rate FiO2 06/06/17 07:42 98 Room Air 06/06/17 07:39 37.0 62 20 122/80 (94) 98 Room Air 06/06/17 07:15 Room Air Last Recorded Weight Weight (Kilograms): 169.600 Physical Exam General Appearance: no apparent distress Head: normocephalic, atraumatic Eyes: PERRL Neck: no adenopathy Respiratory/Chest: lungs clear, no respiratory distress Cardiovascular: regular rate, rhythm Abdomen/GI: normal bowel sounds, non tender, soft Extremities/Musculoskelatal: no calf tenderness, no pedal edema, + pertinent finding (R foot in orthopedic boot. 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 Lives alone. 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 Denies tobacco use. Laboratory Results Past 24 Hours 06/06/17 05:41 06/06/17 05:40 Test 06/05/17 12:07 06/05/17 16:48 06/05/17 20:37 06/06/17 05:40 Bedside Glucose 154 mg/dl (70-99) 153 mg/dl (70-99) 164 mg/dl (70-99) Anion Gap 10.0 mmol/L (3-11) Est Creatinine Clear Calc Drug Dose 20.7 ml/min Estimated GFR () 10.1 Estimated GFR (Non- 8.7 BUN/Creatinine Ratio 6.6 (10-20) Calcium Level 8.8 mg/dl (8.5-10.1) Test 06/06/17 05:41 Red Blood Count 2.90 M/uL (4.7-6.1) Mean Corpuscular Volume 89.3 fL (80-100) Mean Corpuscular Hemoglobin 29.0 pg (25-34) Mean Corpuscular Hemoglobin Concent 32.4 g/dl (32-36) RDW Standard Deviation 52.0 fL (36.4-46.3) RDW Coefficient of Variation 16.1 % (11.5-14.5) Mean Platelet Volume 9.7 fL (7.4-10.4) Allergies Coded Allergies: No Known Allergies (Unverified , 05/19/17) Medications Current Inpatient Medications Medications (Trade) Dose Ordered Sig/Chavez Route Start Time Stop Time Status Last Admin Dose Admin Heparin Sodium (Porcine) (Heparin Sq 5000 Unit/0.5ml) 5,000 unit Q12 SQ 06/03/17 09:00 07/03/17 08:59 Acetaminophen (Tylenol Tab) 650 mg Q4H PRN PO 06/02/17 21:45 07/02/17 21:44 Al Hydrox/Mg Hydrox/Simethicone (Maalox Max Susp) 15 ml Q4H PRN PO 06/02/17 21:45 07/02/17 21:44 Ondansetron HCl (Zofran Inj) 4 mg Q6H PRN IV 06/02/17 21:45 07/02/17 21:44 Calcium Acetate (Phoslo Cap) 1,334 mg AC PO 06/03/17 07:00 07/03/17 06:59 06/06/17 08:47 1,334 MG Clopidogrel Bisulfate (plAVix TAB) 75 mg DAILY PO 06/03/17 09:00 07/03/17 08:59 06/06/17 08:48 75 MG Furosemide (Lasix Tab) 60 mg BID17 PO 06/03/17 09:00 07/03/17 08:59 06/05/17 17:01 60 MG Lisinopril (Zestril Tab) 40 mg DAILY PO 06/03/17 09:00 07/03/17 08:59 06/04/17 08:13 40 MG Metoprolol Succinate (Toprol Xl Tab) 50 mg BID PO 06/03/17 09:00 07/03/17 08:59 06/05/17 21:54 50 MG Insulin Aspart (novoLOG ASPART) SLIDING SCALE G... ACHS SC 06/03/17 07:00 07/03/17 06:59 06/05/17 21:47 1 UNITS Oxycodone HCl (Roxicodone Immediate Rel Tab) 5 mg Q4H PRN PO 06/02/17 21:45 06/16/17 21:44 Lactobacillus Acidophilus (Floranex Tab) 4 tab TIDM PO 06/03/17 07:30 07/03/17 07:29 06/06/17 08:47 4 TAB Miscellaneous (Iv Fluids Completed) 1 ea PRN PRN N/A 06/02/17 22:30 06/02/18 22:29 Vancomycin HCl (Consult) 1 ea UD PRN N/A 06/02/17 23:15 07/02/17 23:14 Ertapenem 500 mg/ Sodium Chloride 55 ml @ 120 mls/hr Q24H IV 06/04/17 12:00 06/14/17 11:59 06/05/17 13:44 120 MLS/HR Enteral Nutritional Formula (Boost Glucose Control) 1 can AC PO 06/04/17 12:00 07/04/17 11:59 06/05/17 21:47 1 CAN Heparin Sodium (Porcine) (Heparin 10 Unit/ ml 5 ml Flush) 5 ml PRN PRN FLUSH 06/04/17 16:15 07/04/17 16:14 06/06/17 05:40 5 ML Heparin Sodium (Porcine) (Heparin Iv Bolus) 2,000 unit 0900 IV 06/06/17 09:00 06/06/17 14:00 Heparin Sodium (Porcine) (Heparin Iv Bolus) 2,000 unit Q1H IV 06/06/17 09:00 06/06/17 11:01 Epoetin Kb (Procrit Inj) 10,000 units 0900 IV 06/06/17 09:00 06/06/17 14:00 Impression (1) End-stage renal disease on hemodialysis (2) Gangrene (3) Obesity (4) Diabetes (5) Anemia Mr. 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 He has ESRD requiring TTS HD. Recommendations END STAGE RENAL DISEASE: -- HD today as per chronic outpatient orders -- Protect L wrist AVF -- If discharge is anticipated please notify the [facility] dialysis unit [phone]) to resume his outpatient TTS schedule HYPERTENSION: -- Blood pressure is acceptable. Continue current medical regimen. No change at present. ANEMIA: -- Will provide ERI w/ HD CKD-BMD: -- Continue Phos-lo w/ meals ID: -- Outpatient antibiotics as per ID
[2017-06-06] MEDS: ERTAPENEM IV 500 MG in SODIUM CHLORIDE 0.9% 50ML 50 ML IV SCH (13:22)
== END 2017-06-06 14:55 | disposition home or self-care (01) | DRG 682 ==
LOC: EEVIPCON 20:31 → INTOOBSV 20:31 → UNDOADMOB 20:31 → C.2T 20:31 → EDBEDREQ 06-03 10:27 → CMPBEDREQ 06-03 11:02 → EDBEDREQ 06-03 11:22 → ENRESERV 06-03 11:27 → C.MSW 06-03 18:04 → OBSVTOIN 06-04 09:08
PROVIDERS: ADMIT Internal Medicine; ATTEND Family Medicine
PROC: 02HV33Z Insertion of Infusion Device into Superior Vena Cava, Percutaneous Approach (ICD-10-PCS; principal; 2017-06-04)
DX: N18.6 End stage renal disease (principal); A48.0 Gas gangrene; I13.2 Hypertensive heart and chronic kidney disease with heart failure and with stage 5 chronic kidney disease, or end stage renal disease; L03.115 Cellulitis of right lower limb; I50.32 Chronic diastolic (congestive) heart failure; Z68.43 Body mass index [BMI] 50.0-59.9, adult; Z89.411 Acquired absence of right great toe; Z99.2 Dependence on renal dialysis; E11.42 Type 2 diabetes mellitus with diabetic polyneuropathy; E11.22 Type 2 diabetes mellitus with diabetic chronic kidney disease; I73.9 Peripheral vascular disease, unspecified; D63.8 Anemia in other chronic diseases classified elsewhere; E66.01 Morbid (severe) obesity due to excess calories; Z95.820 Peripheral vascular angioplasty status with implants and grafts; Z79.02 Long term (current) use of antithrombotics/antiplatelets; Z79.2 Long term (current) use of antibiotics; Z79.899 Other long term (current) drug therapy; Z83.3 Family history of diabetes mellitus; Z82.49 Family history of ischemic heart disease and other diseases of the circulatory system; Z84.1 Family history of disorders of kidney and ureter; Z83.6 Family history of other diseases of the respiratory system; Z80.42 Family history of malignant neoplasm of prostate; Z80.49 Family history of malignant neoplasm of other genital organs

== ENCOUNTER 2017-10-17 13:58 | Inpatient (IN) | payer BC, OTHER ==
[~2017-10-17] VITALS: Ht 182.9 cm; Wt 182.0 kg
[~2017-10-17 13:58] MED LIST changes: +CLOP1TAB15 PO; -LEVO-17 PO; +LSX20 PO; -METO50TA7 PO; +METO50TA8 PO
--- NOTE | 2017-10-17 14:31 | EMERGENCY ROOM VISIT NOTE ---
History Report prepared by Cassidy: Karis Cosby Under the Supervision of: Dr. Cm Park M.D. 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 He came into the ED today because he was recommended by his foot doctor, Dr. Sen from [place], who said that the patient has a foot infection. She recommended him here because she feels he needs surgery and at her facility they are unable to do inpatient dialysis. His last dialysis was yesterday. He is a Friday, , Friday dialysis patient. He has had his big toe amputated on his right foot and she is worried about his other toes. He denies any fevers. The patient notes he is diabetic and does not check his sugars regularly. Source of History: patient Onset: 4 months Position: foot (right) Associated Symptoms: No fevers Review of Systems See HPI for pertinent positives and negatives. A total of ten systems were reviewed and were otherwise negative. Past Medical & Surgical Medical Problems: (1) Anemia (2) Bilateral lower leg cellulitis (3) Diabetes (4) End-stage renal disease on hemodialysis (5) Gangrene (6) Hypertension (7) Metabolic acidosis (8) Nephrotic syndrome (9) Obesity (10) Osteomyelitis (11) Proteinuria (12) R great toe gangrene s/p amputation (13) Secondary hyperparathyroidism of renal origin Family History Cancer Diabetes mellitus Heart disease Hypertension Kidney disease Kidney stones Lung disease Social History Smoking Status: Never Smoker Alcohol Use: none Drug Use: none Marital Status: single Housing Status: lives alone Occupation Status: employed Current/Historical Medications Scheduled Amlodipine (Norvasc), 10 MG PO DAILY Calcium Acetate (Calcium Acetate), 2 TAB PO TID Clopidogrel Bisulfate (Plavix), 75 MG PO DAILY Furosemide (Lasix), 80 MG PO BID Lisinopril (Zestril), 40 MG PO DAILY Metoprolol Tartrate (Lopressor) (Lopressor), 100 MG PO BID Allergies Coded Allergies: No Known Allergies (Unverified , 10/17/17) Physical Exam Vital Signs Date Time Temp Pulse Resp B/P (MAP) Pulse Ox O2 Delivery O2 Flow Rate FiO2 10/17/17 16:52 36.5 77 18 189/85 98 Room Air 10/17/17 14:10 36.4 100 18 209/77 99 Room Air Physical Exam Physical Exam GENERAL: He is oriented to person, place, and time. He appears well-developed and well-nourished. He does not appear distressed. ____ HENT: Exam performed. Head: Normocephalic and atraumatic. Right Ear: External ear normal. No mastoid tenderness. Left Ear: External ear normal. No mastoid tenderness. Mouth/Throat: The oropharynx is clear and moist. No trismus in the jaw. No dental abscesses or uvula swelling. No oropharyngeal exudate or tonsillar abscesses. ____ EYES: Conjunctivae and EOM are normal. Pupils are equal, round, and reactive to light. Right eye exhibits no discharge. Left eye exhibits no discharge. No scleral icterus. ____ NECK: Normal range of motion. Neck supple. No JVD present. No spinous process tenderness present. No carotid bruit present. No rigidity. No tracheal deviation and normal range of motion present. No Brudzinski's sign and no Kernig 's sign noted. ____ CV: Normal rate, regular rhythm, normal heart sounds and intact distal pulses. There is no peripheral edema. Palpable radial pulses bue. ____ PULM/CHEST: Effort normal and breath sounds normal. No respiratory distress. No stridor. He has no wheezes. He has no rales. Chest Wall: He exhibits no tenderness. ____ ABD: Obese, limiting exam nontender to palpation MUSC/SKEL: Normal range of motion of all joints in his bilateral lower extremities including his remaining MTP joints. Right foot has the great toe amputated and adjacent to the amputation site, there is a large ulcer with foul smelling purulent discharge. No crepitus. Signal present in the DP and DT of the lower extremity. Left Upper Extremity: AV fistula with a palpable thrill LYMPH: No cervical adenopathy. ____ NEURO: He is alert and oriented to person, place, and time. He has normal strength. No cranial nerve deficit or sensory deficit. Coordination and gait normal. GCS eye subscore is 4. GCS verbal subscore is 5. GCS motor subscore is 6. Cerebellar tests wnl. ____ PSYCH: He has a normal mood and affect. His behavior is normal. Judgment and thought content normal. ____ Medical Decision & Procedures ER Provider Diagnostic Interpretation: Radiology results as stated below per my review and radiologist interpretation: R FOOT MIN 3 VIEWS ROUTINE CLINICAL HISTORY: 57 years-old Male presenting with R foot drainage r/o osteomyelitis. TECHNIQUE: Frontal, oblique, and lateral views of the right foot were obtained. COMPARISON: 06/03/2017. FINDINGS: Postsurgical changes of resection of the first toe and the mid to distal portion of the first metatarsal. Interval development of significant erosive changes at the second metatarsophalangeal articulation. Regional osteopenia with questionable osteolysis at the remaining metatarsophalangeal joints. Diffuse soft tissue swelling greatest over the medial foot, where there is a soft tissue defect. Osteopenia. Allowing for this, no displaced fracture. Atherosclerosis. Prominent enthesophyte at the origin of the plantar fascia. No soft tissue emphysema is radiographically apparent. IMPRESSION: 1. Findings highly suspicious for septic arthritis at the second metatarsophalangeal joint. Surgical consultation recommended. 2. Questionable osteomyelitis/septic arthritis at the remaining metatarsophalangeal joints. 3. Postsurgical changes of the first toe and first metatarsal. The report will be called/faxed according to standard departmental protocol. Electronically signed by: Pancho Adler M.D. 10/17/2017 3:33 PM Dictated Date/Time: 10/17/2017 3:30 PM Laboratory Results 10/17/17 14:50 Red Blood Count 3.28, Mean Corpuscular Volume 97.3, Mean Corpuscular Hemoglobin 32.0, Mean Corpuscular Hemoglobin Concent 32.9, Mean Platelet Volume 9.7, Neutrophils (%) (Auto) 72.2, Lymphocytes (%) (Auto) 18.9, Monocytes (%) (Auto) 4.2, Eosinophils (%) (Auto) 3.8, Basophils (%) (Auto) 0.5, Neutrophils # (Auto) 6.17, Lymphocytes # (Auto) 1.61, Monocytes # (Auto) 0.36, Eosinophils # (Auto) 0.32, Basophils # (Auto) 0.04 10/17/17 14:50 Test 10/17/17 14:50 White Blood Count 8.53 K/uL (4.8-10.8) Red Blood Count 3.28 M/uL (4.7-6.1) Hemoglobin 10.5 g/dL (14.0-18.0) Hematocrit 31.9 % (42-52) Mean Corpuscular Volume 97.3 fL (80-100) Mean Corpuscular Hemoglobin 32.0 pg (25-34) Mean Corpuscular Hemoglobin Concent 32.9 g/dl (32-36) Platelet Count 273 K/uL (130-400) Mean Platelet Volume 9.7 fL (7.4-10.4) Neutrophils (%) (Auto) 72.2 % Lymphocytes (%) (Auto) 18.9 % Monocytes (%) (Auto) 4.2 % Eosinophils (%) (Auto) 3.8 % Basophils (%) (Auto) 0.5 % Neutrophils # (Auto) 6.17 K/uL (1.4-6.5) Lymphocytes # (Auto) 1.61 K/uL (1.2-3.4) Monocytes # (Auto) 0.36 K/uL (0.11-0.59) Eosinophils # (Auto) 0.32 K/uL (0-0.5) Basophils # (Auto) 0.04 K/uL (0-0.2) RDW Standard Deviation 60.0 fL (36.4-46.3) RDW Coefficient of Variation 16.8 % (11.5-14.5) Immature Granulocyte % (Auto) 0.4 % Immature Granulocyte # (Auto) 0.03 K/uL (0.00-0.02) Erythrocyte Sedimentation Rate 53 mm/hr (0-14) Prothrombin Time 10.5 SECONDS (9.0-12.0) Prothromb Time International Ratio 1.0 (0.9-1.1) Anion Gap 8.0 mmol/L (3-11) Est Creatinine Clear Calc Drug Dose 23.6 ml/min Estimated GFR () 11.5 Estimated GFR (Non- 9.9 BUN/Creatinine Ratio 6.3 (10-20) Calcium Level 9.5 mg/dl (8.5-10.1) C-Reactive Protein 4.28 mg/dl (0-0.29) Laboratory results reviewed by me Medications Administered Medications (Trade) Dose Ordered Sig/Chavez Route Start Time Stop Time Status Last Admin Dose Admin Vancomycin HCl 1000 mg/Sodium Chloride 270 ml @ 125 mls/hr NOW STAT IV 10/17/17 15:46 10/17/17 17:55 DC 10/17/17 18:20 125 MLS/HR Ampicillin Sodium/ Sulbactam Sodium 3000 mg/Sodium Chloride 108 ml @ 200 mls/hr NOW STAT IV 10/17/17 15:46 10/17/17 16:18 DC 10/17/17 20:14 200 MLS/HR ED Course 1425: The patient was evaluated in room C3. A complete history and physical exam was performed. 1540: Engineering Drafter in [place], Dr. Good, sent over wound culture results which showed that the patient grew out staph aureus susceptible to vancomycin as well as enterococcus faecalis susceptible to ampicillin. X-ray showed osteomyelitis versus septic arthritis. Clinically, there is no evidence of septic arthritis as the patient has full range of motion of all of his joints of his lower extremities bilaterally including his remaining MTP joints. The patient's presentation is much more consistent with the appearance of osteomyelitis. Ortho paged, antibiotics Ampicillin Sodium/Sulbactam Sodium 3000 mg/Sodium Chloride 108 ml @ 200 mls/hr IV and vancomycin HCl 1000 mg/ Sodium Chloride 270 ml 1548: I discussed the patient's case with TRE Ortiz for Dr. Cuevas orthopedics. He agrees the patient should be started on antibiotics and admitted to medicine and will be on consult. 1657: [facility] Medical Decision Engineering Drafter in [place], Dr. Good, sent over wound culture results which showed that the patient grew out staph aureus susceptible to vancomycin as well as enterococcus faecalis susceptible to ampicillin. X-ray showed osteomyelitis versus septic arthritis. Clinically, there is no evidence of septic arthritis as the patient has full range of motion of all of his joints of his lower extremities bilaterally including his remaining MTP joints. The patient's presentation is much more consistent with the appearance of osteomyelitis. Ortho paged, antibiotics Ampicillin Sodium/Sulbactam Sodium 3000 mg/Sodium Chloride 108 ml @ 200 mls/hr IV and vancomycin HCl 1000 mg/Sodium Chloride 270 ml Medication Reconcilliation Current Medication List: was personally reviewed by me Blood Pressure Screening Patient's blood pressure: Elevated blood pressure Blood pressure disposition: Referred to PCP Consults Time Called: [id number] Consulting Physician: TRE Ortiz for Dr. Cuevas, orthopedics Returned Call: [phone] I discussed the patient's case with TRE Ortiz for Dr. Cuevas orthopedics. He agrees the patient should be started on antibiotics and admitted to medicine and will be on consult. Impression Primary Impression: Osteomyelitis Scribe Attestation The scribe's documentation has been prepared under my direction and personally reviewed by me in its entirety. I confirm that the note above accurately reflects all work, treatment, procedures, and medical decision making performed by me. The chart was completed utilizing [employer] Speech voice recognition software. Grammatical errors, random word insertions, pronoun errors, and incomplete sentences are an occasional consequence of this system due to software limitations, ambient noise, and hardware issues. Any formal questions or concerns about the content, text, or information contained within the body of this dictation should be directly addressed to the physician for clarification. Departure Information Dispostion Being Evaluated By Hospitalist (Dr. Ferraro, [facility] Hospitalist ) Referrals No Doctor, Assigned (PCP) Patient Instructions My [facility] Health Problem Qualifiers Primary Impression: Osteomyelitis Osteomyelitis type: unspecified type Osteomyelitis location: foot Laterality: unspecified laterality Qualified Codes: M86.9 - Osteomyelitis, unspecified
[2017-10-17 15:00] LABS: BASO % 0.5 %; BASO ABS # 0.04 K/uL (0-0.2); EOS % 3.8 %; EOS ABS # 0.32 K/uL (0-0.5); HEMATOCRIT 31.9 % (42-52); HEMOGLOBIN 10.5 g/dL (14.0-18.0); IG# 0.03 K/uL (0.00-0.02); LYMPH % 18.9 %; LYMPH ABS # 1.61 K/uL (1.2-3.4); MEAN CELL VOLUME 97.3 fL (80-100); MEAN CORPUSCULAR HGB CONC 32.9 g/dl (32-36); MEAN PLATELET VOLUME 9.7 fL (7.4-10.4); MONO % 4.2 %; MONO ABS # 0.36 K/uL (0.11-0.59); NEUT % 72.2 %; NEUT ABS # 6.17 K/uL (1.4-6.5); PLATELET COUNT 273 K/uL (130-400); RED CELL DISTRIBUTION WIDTH CV 16.8 % (11.5-14.5); WHITE BLOOD COUNT 8.53 K/uL (4.8-10.8)
[2017-10-17 15:35] LABS: CALCIUM 9.5 mg/dl (8.5-10.1); CREATININE 5.88 mg/dl (0.60-1.40); POTASSIUM 5.3 mmol/L (3.5-5.1)
--- NOTE | 2017-10-17 15:35 | DIAGNOSTIC IMAGING REPORT ---
R FOOT MIN 3 VIEWS ROUTINE CLINICAL HISTORY: 57 years-old Male presenting with R foot drainage r/o osteomyelitis. TECHNIQUE: Frontal, oblique, and lateral views of the right foot were obtained. COMPARISON: 06/03/2017. FINDINGS: Postsurgical changes of resection of the first toe and the mid to distal portion of the first metatarsal. Interval development of significant erosive changes at the second metatarsophalangeal articulation. Regional osteopenia with questionable osteolysis at the remaining metatarsophalangeal joints. Diffuse soft tissue swelling greatest over the medial foot, where there is a soft tissue defect. Osteopenia. Allowing for this, no displaced fracture. Atherosclerosis. Prominent enthesophyte at the origin of the plantar fascia. No soft tissue emphysema is radiographically apparent. IMPRESSION: 1. Findings highly suspicious for septic arthritis at the second metatarsophalangeal joint. Surgical consultation recommended. 2. Questionable osteomyelitis/septic arthritis at the remaining metatarsophalangeal joints. 3. Postsurgical changes of the first toe and first metatarsal. The report will be called/faxed according to standard departmental protocol. Electronically signed by: Pancho Adler M.D. 10/17/2017 3:33 PM Dictated Date/Time: 10/17/2017 3:30 PM
[2017-10-17] MEDS ORDERED: VANCOMYCIN IV 1,000 MG in SODIUM CHLORIDE 0.9% 250ML 250 ML IV STA (15:46)
[2017-10-17] MEDS ORDERED: AMPICILLIN/SULBACTAM SOD INJ 3,000 MG in SODIUM CHLORIDE 0.9% 100ML 100 ML IV STA (15:46)
[2017-10-17] MEDS ORDERED: VANCOMYCIN CONSULT ACTIVE PRN ×2 (16:00→17:00)
[2017-10-17] MEDS ORDERED: CALC1TAB54 PO (16:11)
[2017-10-17] MEDS ORDERED: FRS/40 PO (16:11)
[2017-10-17] MEDS ORDERED: AMLO-114 PO (16:11)
[2017-10-17] MEDS ORDERED: LISI40TA PO (16:11)
[2017-10-17] MEDS ORDERED: CLOP1TAB5 PO (16:11)
[2017-10-17] MEDS ORDERED: METO100T14 PO (16:11)
[2017-10-17] MEDS ORDERED: GLUCAGON FOR INJ 1 MG VIAL SQ PRN (16:45)
[2017-10-17] MEDS ORDERED: POLYETHYLENE (MIRALAX) 17 GM PACK PO PRN (16:45)
[2017-10-17] MEDS ORDERED: ALUMINUM/MAGNESIUM/SIMETH (MAALOX MAX) 30 ML UDC PO PRN (16:45)
[2017-10-17] MEDS ORDERED: HEPARIN SOD 5000 UNIT/0.5 ML CARP SQ SCH (16:45)
[2017-10-17] MEDS ORDERED: ACETAMINOPHEN 325 MG TAB PO PRN (16:45)
[2017-10-17] MEDS ORDERED: ONDANSETRON INJ 2 MG/ML 2 ML VIAL IV PRN (16:45)
[2017-10-17] MEDS ORDERED: GLUCOSE 40% GEL 15 GM TUBE PO PRN (16:45)
[2017-10-17] MEDS ORDERED: MAGNESIUM HYDROXIDE SUSP 30 ML UDC PO PRN (16:45)
[2017-10-17] MEDS ORDERED: GLUCOSE 10 TABS/TUBE PO PRN (16:45)
[2017-10-17] MEDS ORDERED: DEXTROSE 50% 50 ML SYR IV PRN (16:45)
[2017-10-17] MEDS ORDERED: HydrALAZINE HCL 20 MG/ML VIAL IV. ONE (17:00)
[2017-10-17] MEDS ORDERED: AMPICILLIN/SULBACTAM CONSULT ACTIVE PRN (17:30)
--- NOTE | 2017-10-17 17:32 | History and Physical ---
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 The patient was referred by his tanker serviceman, Dr. Le in [place]. The patient has a history of gas gangrene in his right big toe, which was amputated. His tanker serviceman is now concerned of infection/osteomyelitis in his remaining toes. A wound culture was obtained by the tanker serviceman, who recommends Unasyn and vancomycin. The patient denies any complaints at this time. He has not had feeling in his feet for quite some time due to diabetic neuropathy. The patient denies fevers, chills, sweats, chest pain, palpitations, claudication, cough, wheezing, shortness of breath, nausea, vomiting, abdominal pain, dysuria, hematuria, urinary retention, paralysis, weakness. Past Medical/Surgical History Medical Problems: (1) STEVE (acute kidney injury) (2) Anasarca (3) Anemia (4) Bilateral lower leg cellulitis (5) CHF exacerbation (6) Diabetes (7) End-stage renal disease on hemodialysis (8) Gangrene (9) Hypertension (10) Metabolic acidosis (11) Nephrotic syndrome (12) Obesity (13) Osteomyelitis (14) Proteinuria (15) R great toe gangrene s/p amputation (16) Secondary hyperparathyroidism of renal origin HTN PAD s/p stent in RLE Chronic diastolic CHF DM II ESRD on HD Anemia of chornic disease H/o gas gangrene right big toe s/p amputation Family History Cancer Diabetes mellitus Heart disease Hypertension Kidney disease Kidney stones Lung disease Social History Smoking Status: Never Smoker Smokeless Tobacco Use: No Alcohol Use: none Drug Use: none Marital Status: single Housing status: lives alone 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) Allergies Coded Allergies: No Known Allergies (Unverified , 10/17/17) Home Medications Scheduled Amlodipine (Norvasc), 10 MG PO DAILY Calcium Acetate (Calcium Acetate), 2 TAB PO TID Clopidogrel Bisulfate (Plavix), 75 MG PO DAILY Furosemide (Lasix), 80 MG PO BID Lisinopril (Zestril), 40 MG PO DAILY Metoprolol Tartrate (Lopressor) (Lopressor), 100 MG PO BID Review of Systems Constitutional: No fever, No chills, No sweats Eyes: No worsening of vision, No eye pain, No diplopia ENT: No hearing loss, No nasal symptoms, No trouble swallowing Respiratory: No cough, No wheezing, No shortness of breath Cardiovascular: No chest pain, No claudication, No palpitations Abdomen: No pain, No nausea, No vomiting Musculoskeletal: No joint pain, No muscle pain, No swelling Genitourinary - Male: No dysuria, No urinary retention, No hematuria Neurologic: +Numbness in feet bilaterally, chronic. No paralysis, No weakness Integumentary: No rash, No itch, No color change Physical Exam Vital Signs Date Time Temp Pulse Resp B/P (MAP) Pulse Ox O2 Delivery O2 Flow Rate FiO2 10/17/17 16:52 36.5 77 18 189/85 98 Room Air 10/17/17 14:10 36.4 100 18 209/77 99 Room Air General appearance: +Morbidly obese. Well-developed, well-nourished, no apparent distress Head: Normocephalic, atraumatic Eyes: Normal inspection, PERRL, EOMI ENT: Normal ENT inspection, hearing grossly normal, pharynx normal Neck: Supple, no JVD, trachea midline Respiratory/Chest: Lungs clear to auscultation, normal breath sounds, no respiratory distress Cardiovascular: Regular rate & rhythm, no gallop, no murmur Abdomen/GI: Normal bowel sounds, non-tender, soft Extremities/Musculoskeletal: +S/p right great toe amputation. Large ulcer at amputation site w/slough and serosanguineous drainage, foul odor. No calf tenderness, no pedal edema Neurological/Psych: Alert, normal mood/affect, oriented x 3 Skin: Normal color, warm/dry, no rash Diagnostics Laboratory Results Results Past 24 Hours Test 10/17/17 14:50 10/17/17 16:58 10/17/17 17:04 Range/Units White Blood Count 8.53 4.8-10.8 K/uL Red Blood Count 3.28 4.7-6.1 M/uL Hemoglobin 10.5 14.0-18.0 g/dL Hematocrit 31.9 42-52 % Mean Corpuscular Volume 97.3 80-100 fL Mean Corpuscular Hemoglobin 32.0 25-34 pg Mean Corpuscular Hemoglobin Concent 32.9 32-36 g/dl Platelet Count 273 130-400 K/uL Mean Platelet Volume 9.7 7.4-10.4 fL Neutrophils (%) (Auto) 72.2 % Lymphocytes (%) (Auto) 18.9 % Monocytes (%) (Auto) 4.2 % Eosinophils (%) (Auto) 3.8 % Basophils (%) (Auto) 0.5 % Neutrophils # (Auto) 6.17 1.4-6.5 K/uL Lymphocytes # (Auto) 1.61 1.2-3.4 K/uL Monocytes # (Auto) 0.36 0.11-0.59 K/uL Eosinophils # (Auto) 0.32 0-0.5 K/uL Basophils # (Auto) 0.04 0-0.2 K/uL RDW Standard Deviation 60.0 36.4-46.3 fL RDW Coefficient of Variation 16.8 11.5-14.5 % Immature Granulocyte % (Auto) 0.4 % Immature Granulocyte # (Auto) 0.03 0.00-0.02 K/uL Sodium Level 131 136-145 mmol/L Potassium Level 5.3 3.5-5.1 mmol/L Chloride Level 94 98-107 mmol/L Carbon Dioxide Level 30 21-32 mmol/L Anion Gap 8.0 3-11 mmol/L Blood Urea Nitrogen 37 7-18 mg/dl Creatinine 5.88 0.60-1.40 mg/dl Est Creatinine Clear Calc Drug Dose 23.6 ml/min Estimated GFR () 11.5 Estimated GFR (Non- 9.9 BUN/Creatinine Ratio 6.3 10-20 Random Glucose 243 70-99 mg/dl Lactic Acid Level 2.1 0.4-2.0 mmol/L Calcium Level 9.5 8.5-10.1 mg/dl Microbiology Results 10/17/17 Blood Culture, Ordered Pending 10/17/17 Blood Culture, Ordered Pending Diagnostic Radiology Reviewed the following studies and agree with interpretation as follows: R FOOT MIN 3 VIEWS ROUTINE CLINICAL HISTORY: 57 years-old Male presenting with R foot drainage r/o osteomyelitis. TECHNIQUE: Frontal, oblique, and lateral views of the right foot were obtained. COMPARISON: 06/03/2017. FINDINGS: Postsurgical changes of resection of the first toe and the mid to distal portion of the first metatarsal. Interval development of significant erosive changes at the second metatarsophalangeal articulation. Regional osteopenia with questionable osteolysis at the remaining metatarsophalangeal joints. Diffuse soft tissue swelling greatest over the medial foot, where there is a soft tissue defect. Osteopenia. Allowing for this, no displaced fracture. Atherosclerosis. Prominent enthesophyte at the origin of the plantar fascia. No soft tissue emphysema is radiographically apparent. IMPRESSION: 1. Findings highly suspicious for septic arthritis at the second metatarsophalangeal joint. Surgical consultation recommended. 2. Questionable osteomyelitis/septic arthritis at the remaining metatarsophalangeal joints. 3. Postsurgical changes of the first toe and first metatarsal. 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 Pt afebrile on arrival. Hypertensive with BP of 209/77. Foot x-ray suspicious for septic arthritis and/or osteomyelitis. EKG no ischemic changes. No leukocytosis. Lactic acid very mildly elevated at 2.1. Right foot infection, concern for osteomyelitis -Admit to med/surg -Obtain blood cultures -Start Unasyn and vancomycin per outpt podiatry recs -Consult podiatry, appreciate recs -Consult infectious disease -Obtain MRI right foot to further assess -Check ESR and CRP -Gentle IVF with NSS at 75 cc/hr. Monitor fluid status due to h/o CHF -Repeat lactic acid at 1900 HTN--BP elevated in ED -Hydralazine 10 mg IV x1 now -Continue Norvasc 10 mg PO qd, lisinopril 40 mg PO qd, Lopressor 100 mg PO BID PAD s/p stent in RLE -Continue Plavix Chronic diastolic CHF--stable, no acute exacerbation -Continue Lasix 80 mg PO BID, beta rafael, LYLE inhibitor DM II--last HgbA1c September 2016 -Insulin sliding scale -Check BSGs q ac and qhs -Recheck HgbA1c ESRD on HD--on / schedule -Consult nephrology, appreciate recs Anemia of chronic disease--stable -Hgb stable, at baseline DVT prophylaxis -Heparin 5000 units SC q12h -TOMER Mathews Code Status -Level I, FULL RESUSCITATION STATUS ATTENDING PHYSICIAN ATTESTATION Ji was seen and examined by Anisha Pulliam PA-C and Admitting Physician Anisa Bueno MD. Pt is Hx of Right 1st toe gangrene which required ertapenem and eventually had toe amputated. He is admitted for concern for ostemyelitis. Wound Cx obtained in OP settings grew Staph and VRE and current Abx recs are vancomycin and Unsayn. Podiatry and ID services has been consulted. ESR, CRP and MRI has been ordered and will follow up with results. Of note, patient is uncontrolled Diabetes mellitus due to medical nonadherence. Case discussed with TRE. Resuscitation Status VTE Prophylaxis Will order VTE Prophylaxis: Yes
--- NOTE | 2017-10-17 19:18 | Pharmacy Progress Note ---
Pharmacy Abx Initial Consult Date of Service Oct 17, 2017. Pharmacy Dosing Scope Date of Consult: 10/17/17 Consultation requested by: Anisha Pulliam PA-c Pharmacy is consulted to initiate Vancomycin and Unasyn IV dosing therapy, order appropriate labs and adjust drug dose/frequency. Subjective The patient is a 57 year old male admitted on 10/17/17 with septic arthritis and/ or osteomyelitis of his foot. Objective Height (Feet): 6 Height (Inches): 0 Weight (Kilograms): 177.000 Vital Signs (Past 12Hrs) Vital Signs Past 12 Hours Date Time Temp Pulse Resp B/P (MAP) Pulse Ox O2 Delivery O2 Flow Rate FiO2 10/17/17 18:36 83 18 147/77 94 Room Air 10/17/17 16:52 36.5 77 18 189/85 98 Room Air 10/17/17 14:10 36.4 100 18 209/77 99 Room Air Lab Results (24Hrs) Laboratory Tests (24 Hours) Item Value Date Time Creatinine 5.88 mg/dl *H 10/17/17 1450 Est Creatinine Clear Calc Drug Dose 23.6 ml/min 10/17/17 1450 Test 10/17/17 14:50 C-Reactive Protein 4.28 mg/dl (0-0.29) H Erythrocyte Sedimentation Rate 53 mm/hr (0-14) H Lactic Acid Level 2.1 mmol/L (0.4-2.0) *H White Blood Count 8.53 K/uL (4.8-10.8) Red Blood Count 3.28 M/uL (4.7-6.1) L Hemoglobin 10.5 g/dL (14.0-18.0) L Hematocrit 31.9 % (42-52) L Mean Corpuscular Volume 97.3 fL (80-100) Mean Corpuscular Hemoglobin 32.0 pg (25-34) Mean Corpuscular Hemoglobin Concent 32.9 g/dl (32-36) Platelet Count 273 K/uL (130-400) Mean Platelet Volume 9.7 fL (7.4-10.4) Neutrophils (%) (Auto) 72.2 % Lymphocytes (%) (Auto) 18.9 % Monocytes (%) (Auto) 4.2 % Eosinophils (%) (Auto) 3.8 % Basophils (%) (Auto) 0.5 % Neutrophils # (Auto) 6.17 K/uL (1.4-6.5) Lymphocytes # (Auto) 1.61 K/uL (1.2-3.4) Monocytes # (Auto) 0.36 K/uL (0.11-0.59) Eosinophils # (Auto) 0.32 K/uL (0-0.5) Basophils # (Auto) 0.04 K/uL (0-0.2) Micro Results Date/Time Source Procedure Growth Status 10/17/17 17:21 Blood Blood Culture Pending Received 10/17/17 17:14 Blood Blood Culture Pending Received Risk Factors for Resistance * Chronic dialysis within the past 30 days Assessment & Plan Assessment 57 year old morbid obese male (BMI = 53kg/m2) with ESRD on HD on Saturdays admitted with osteomyelitis Plan Vancomycin & Unasyn for treatment of osteomyelitis Vancomycin IV * Loading dose: 1000 mg (in ED) + 2000mg = 3000mg (16.9mg/kg) * Goal trough level for osteomyelitis : 15 to 20 mcg/mL - closer to 20mcg/mL * Random level ordered for 10/18/17 with AM labs * Will dose empirically based on levels for patient on HD * A less than traditional dose has been selected due to likelihood of drug accumulation in obese patient with CKD. Unasyn IV * 3g IV Q24H (after HD on treatment days) Pharmacy will continue to follow and will adjust dose/frequency as necessary. Thank you.
[2017-10-17 19:23] VITALS: BP 193/80; PULSE 74; TEMP 36.9; O2SAT 96
[2017-10-17 19:29] VITALS: BMI 53.5
--- NOTE | 2017-10-17 20:31 | DIAGNOSTIC IMAGING REPORT ---
RIGHT TIBIA AND FIBULA 2 VIEWS CLINICAL HISTORY: Lower extremity infection. FINDINGS: AP and lateral views of the right tibia and fibula are obtained. No prior studies are available for comparison at the time of dictation. The skeletal structures are osteopenic. No fracture is seen involving the right tibia or fibula. There is a vertical lucency seen in the patella on the frontal view. The knee and ankle joints are grossly maintained. No bony erosion or periostitis is identified. Soft tissue edema is present throughout the calf. There is atherosclerotic calcification of the regional arteries. IMPRESSION: 1. No acute bony abnormality is seen involving the right tibia or fibula. 2. There is a vertical lucency in the patella, likely representing a bipartite patella. Fracture is considered unlikely unless there has been a history of trauma. Correlate for point tenderness. 3. Soft tissue edema is present throughout the calf. Electronically signed by: Channing Nieto M.D. 10/17/2017 8:30 PM Dictated Date/Time: 10/17/2017 8:27 PM
[2017-10-17 20:36] VITALS: BP 179/82; PULSE 74
[2017-10-17] MEDS: METOPROLOL TARTRATE 100 MG TAB PO SCH (20:39)
[2017-10-17] MEDS: CALCIUM ACETATE 667MG GELCAP PO SCH (20:39)
[2017-10-17] MEDS: FUROSEMIDE 80 MG TAB PO SCH (20:40)
[2017-10-17] MEDS: HEPARIN SOD 5000 UNIT/0.5 ML CARP SQ SCH (20:40)
[2017-10-17] MEDS: INSULIN ASPART 100 UNITS/ML 3 ML PEN SC SCH ×2 (20:41→20:42)
[2017-10-17] MEDS ORDERED: HydrALAZINE HCL 20 MG/ML VIAL IV. PRN (21:30)
[2017-10-17] MEDS ORDERED: VANCOMYCIN IV 2,000 MG in SODIUM CHLORIDE 0.9% 500ML 500 ML IV ONE (21:30)
[2017-10-17 23:23] VITALS: BP 120/69; PULSE 73; TEMP 36.7; O2SAT 99
[2017-10-18] VITALS (19 sets, daily range): BP systolic 106–200; BP diastolic 52–92; PULSE 61–81; TEMP 36.5–37; O2SAT 97–100; Ht 182.9 cm; Wt 182.0 kg
[2017-10-18 06:21] LABS: HEMATOCRIT 31.7 % (42-52); HEMOGLOBIN 10.3 g/dL (14.0-18.0); MEAN CELL VOLUME 96.9 fL (80-100); MEAN CORPUSCULAR HEMOGLOBIN 31.5 pg (25-34); MEAN CORPUSCULAR HGB CONC 32.5 g/dl (32-36); MEAN PLATELET VOLUME 10.4 fL (7.4-10.4); PLATELET COUNT 184 K/uL (130-400); RED CELL DISTRIBUTION WIDTH CV 16.9 % (11.5-14.5); RED CELL DISTRIBUTION WIDTH SD 59.8 fL (36.4-46.3); WHITE BLOOD COUNT 9.13 K/uL (4.8-10.8)
[2017-10-18 07:02] LABS: HEMOGLOBIN A1C 7.5 % (4.5-5.6)
[2017-10-18 07:12] LABS: CALCIUM 9.2 mg/dl (8.5-10.1); CREATININE 6.77 mg/dl (0.60-1.40); POTASSIUM 5.4 mmol/L (3.5-5.1)
[2017-10-18] MEDS: INSULIN ASPART 100 UNITS/ML 3 ML PEN SC SCH ×4 (08:00→20:33)
--- NOTE | 2017-10-18 08:21 | ORTHOPEDIC CONSULTATION ---
DATE OF CONSULTATION: 10/18/2017 CHIEF COMPLAINT: Right persistent foot wound. HISTORY OF PRESENT ILLNESS: The patient is a 57-year-old obese male and group home diabetic with multiple medical comorbidities including hypertension, peripheral artery disease, congestive heart failure, type 2 diabetes, end-stage renal disease on dialysis, chronic anemia, neuropathy, who was admitted yesterday with an infected right foot wound. The patient has a pretty complex history related to this leg. He underwent a revascularization procedure in [facility] in April 2017. He then underwent an emergent amputation of his first great toe and the distal portion of the first metatarsal on 06/02/2017 by a blasting contract man in [place]. Since then, he has had a persistent open wound that has been slowly healing. He has been on and off antibiotics for the past 4 months. Over the past 10 days, he has developed increasing signs of infection and was admitted through the ER yesterday. Really no significant pain. He has chronic neuropathy. He says it seemed like it was healing until 10 days ago. PAST MEDICAL HISTORY: Per the admission H&P and as described above. OBJECTIVE: VITAL SIGNS: Temperature is 36.7. Vital signs stable. GENERAL: A pleasant obese middle-aged male. He looks extremely poorly conditioned. EXTREMITIES: Examination of the right foot reveals that he is missing his great toe. He has about a 2 cm open draining wound over this area of his great toe draining some mildly purulent material. There is some mild redness in the area. There is no obvious fluctuance. He has decreased sensation throughout. There are no signs of ascending cellulitis. LABORATORY DATA: His white cell count normal at 9.13. He has chronic anemia with a hemoglobin 10.3 and hematocrit 31.7. His sed rate 53. C-reactive protein 4.38. His electrolytes are abnormal due to his chronic renal insufficiency. IMAGES: X-ray of the right foot reviewed. It shows evidence of the first metatarsal resection and great toe resection. He has bony destruction of the second MTP joint. He has calcification of his vessels. 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 No signs of sepsis or impending sepsis. He has clearly got further infection in his forefoot area and I think the likelihood of healing this ever is extremely unlikely. The most definitive treatment for this patient is a below knee amputation. PLAN: I discussed treatment options with the patient. Treatment options are essentially chronic suppression antibiotics and wound care like he has been doing and I think he will do okay for quite some time with that. He is probably going to need chronic suppression antibiotics and wound management. Other option is definitive treatment which will be a below knee amputation. I do not think anything short of that is going to predictably help this gentleman and would just result in prolonged wound care and medical management and then eventually the same result. We will be happy to do this if he decides to proceed along that course. Otherwise, I would recommend just routine wound care with the wound clinic and suppressive antibiotics. Any orthopedic questions can be directed to me at [phone]. [facility]
[2017-10-18] MEDS: CALCIUM ACETATE 667MG GELCAP PO SCH ×3 (08:51→20:36)
[2017-10-18] MEDS: FUROSEMIDE 80 MG TAB PO SCH ×2 (08:51→17:00)
[2017-10-18] MEDS: AMLODIPINE BESYLATE 5 MG TAB PO SCH (08:52)
[2017-10-18] MEDS: METOPROLOL TARTRATE 100 MG TAB PO SCH ×2 (08:52→20:39)
[2017-10-18] MEDS: LISINOPRIL 40 MG TAB PO SCH (08:53)
[2017-10-18] MEDS: CLOPIDOGREL BISULFATE 75 MG TAB PO SCH (08:53)
[2017-10-18] MEDS: HEPARIN SOD 5000 UNIT/0.5 ML CARP SQ SCH ×2 (08:54→20:37)
[2017-10-18] MEDS ORDERED: SODIUM POLYST. SULF SUSP 15G/60ML PO STA (10:39)
--- NOTE | 2017-10-18 10:42 | Medical Consult ---
Consultation Date of Consultation: Oct 18, 2017. Attending Physician: Wes Abdullahi MD, PhD Reason for Consultation: Osteomyelitis History of Present Illness 57-year-old male known to me from previous infectious disease consultation, with long history of diabetes mellitus, hypertension, hyperlipidemia, end-stage renal disease on dialysis, peripheral arterial disease status post vascular procedure, status post amputation of right great toe for gangrene last year, who has been dealing with nonhealing wound of his right foot for several months. He has received several courses of oral antibiotics without much improvement. Over the last 10 days, patient has noted progressively worsening redness and swelling of the foot, ventrally leading to admission to the hospital. He has been started empirically on vancomycin and Unasyn, blood cultures are negative to date. CT scan, read by me, shows evidence of deep infection with possible septic arthritis and osteomyelitis involving the 2nd metatarsal. Has been seen by Orthopedic surgery, who has recommended amputation as the most efficacious treatment, but patient unwilling at this time. Past Medical/Surgical History Medical Problems: (1) CHF exacerbation Status: Acute Medical Problems: (1) Anemia (2) Bilateral lower leg cellulitis (3) Diabetes (4) End-stage renal disease on hemodialysis (5) Gangrene (6) Hypertension (7) Metabolic acidosis (8) Nephrotic syndrome (9) Obesity (10) Osteomyelitis (11) Proteinuria (12) R great toe gangrene s/p amputation (13) Secondary hyperparathyroidism of renal origin Family History Cancer Diabetes mellitus Heart disease Hypertension Kidney disease Kidney stones Lung disease Social History Smoking Status: Never Smoker Smokeless Tobacco Use: No Alcohol Use: none Drug Use: none Marital Status: single Housing Status: lives alone 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) Allergies Coded Allergies: No Known Allergies (Unverified , 10/17/17) Current Inpatient Medications Current Inpatient Medications Medications (Trade) Dose Ordered Sig/Chavez Route Start Time Stop Time Status Last Admin Dose Admin Acetaminophen (Tylenol Tab) 650 mg Q4H PRN PO 10/17/17 16:45 11/16/17 16:44 Al Hydrox/Mg Hydrox/Simethicone (Maalox Max Susp) 15 ml Q4H PRN PO 10/17/17 16:45 11/16/17 16:44 Magnesium Hydroxide (Milk Of Magnesia Susp) 30 ml Q6H PRN PO 10/17/17 16:45 11/16/17 16:44 Polyethylene (Miralax Powder Packet) 17 gm DAILY PRN PO 10/17/17 16:45 11/16/17 16:44 Ondansetron HCl (Zofran Inj) 4 mg Q6H PRN IV 10/17/17 16:45 11/16/17 16:44 Glucose (Glucose 40% Gel) 15-30 GRAMS 15 GRAMS... UD PRN PO 10/17/17 16:45 11/16/17 16:44 Glucose (Glucose Chew Tab) 4-8 Tablets 4 Tabl... UD PRN PO 10/17/17 16:45 11/16/17 16:44 Dextrose (Dextrose 50% 50ML Syringe) 25-50ML OF 50% DW IV FOR... UD PRN IV 10/17/17 16:45 11/16/17 16:44 Glucagon (Glucagon Inj) 1 mg UD PRN SQ 10/17/17 16:45 11/16/17 16:44 Ampicillin Sodium/ Sulbactam Sodium 3000 mg/Sodium Chloride 108 ml @ 200 mls/hr DAILY@1600 IV 10/18/17 16:00 11/27/17 16:33 Miscellaneous Information (Consult) 1 ea UD PRN N/A 10/17/17 17:00 11/16/17 16:59 Insulin Aspart (novoLOG ASPART) SLIDING SCALE G... ACHS SC 10/17/17 18:00 11/16/17 17:59 Amlodipine Besylate (Norvasc Tab) 10 mg DAILY PO 10/18/17 09:00 11/17/17 08:59 10/18/17 08:52 10 MG Clopidogrel Bisulfate (plAVix TAB) 75 mg DAILY PO 10/18/17 09:00 11/17/17 08:59 10/18/17 08:53 75 MG Furosemide (Lasix Tab) 80 mg BID17 PO 10/17/17 17:00 11/16/17 16:59 10/18/17 08:51 80 MG Lisinopril (Zestril Tab) 40 mg DAILY PO 10/18/17 09:00 11/17/17 08:59 10/18/17 08:53 40 MG Metoprolol Tartrate (Lopressor Tab) 100 mg BID PO 10/17/17 21:00 11/16/17 20:59 10/18/17 08:52 100 MG Calcium Acetate (Phoslo Cap) 1,334 mg TIDM PO 10/17/17 18:00 11/16/17 17:59 10/18/17 08:51 1,334 MG Ampicillin Sodium/ Sulbactam Sodium (Consult) 1 ea UD PRN N/A 10/17/17 17:30 11/16/17 17:29 Heparin Sodium (Porcine) (Heparin Sq 5000 Unit/0.5ml) 5,000 unit Q12 SQ 10/17/17 21:00 11/16/17 20:59 Hydralazine HCl (HydrALAZINE INJ) 10 mg Q6H PRN IV. 10/17/17 21:30 11/16/17 21:29 Review of Systems All systems were reviewed and are negative except as per HPI Physical Exam Date Time Temp Pulse Resp B/P (MAP) Pulse Ox O2 Delivery O2 Flow Rate FiO2 10/18/17 08:51 36.5 76 18 166/84 (111) 97 Room Air 10/17/17 23:23 36.7 73 16 120/69 (86) 99 Room Air 10/17/17 21:32 Room Air 10/17/17 20:36 74 179/82 (114) 10/17/17 19:29 Room Air 10/17/17 19:23 36.9 74 18 193/80 (117) 96 Room Air 10/17/17 18:36 83 18 147/77 94 Room Air 10/17/17 16:52 36.5 77 18 189/85 98 Room Air 10/17/17 14:10 36.4 100 18 209/77 99 Room Air General Appearance: WD/WN, no apparent distress Head: normocephalic, atraumatic Eyes: normal inspection, EOMI, sclerae normal ENT: normal ENT inspection, hearing grossly normal, pharynx normal Neck: supple, no adenopathy, thyroid normal, trachea midline Respiratory/Chest: chest non-tender, lungs clear, normal breath sounds, no respiratory distress Cardiovascular: regular rate, rhythm, no gallop, no murmur Abdomen/GI: normal bowel sounds, non tender, soft, no organomegaly Back: normal inspection, no CVA tenderness Extremities/Musculoskelatal: no calf tenderness, + slow capillary refill, + swelling (Right foot) Neurologic/Psych: alert, oriented x 3, + sensory deficit (Both feet) Skin: normal color, no rash, + pertinent finding (Plantar ulcer right foot with surrounding erythema and swelling, purulent drainage) Lymphatic: no adenopathy Laboratory Results Date/Time Source Procedure Growth Status 10/17/17 17:21 Blood Blood Culture Pending Received 10/17/17 17:14 Blood Blood Culture Pending Received 10/17/17 20:15 Nasal MRSA DNA Surveillance Screen - Final Specimen Negative for MRSA by DNA Probe Complete Last 24 Hours Test 10/17/17 14:50 10/17/17 19:56 10/17/17 20:09 10/18/17 06:01 White Blood Count 8.53 K/uL 9.13 K/uL Red Blood Count 3.28 M/uL 3.27 M/uL Hemoglobin 10.5 g/dL 10.3 g/dL Hematocrit 31.9 % 31.7 % Mean Corpuscular Volume 97.3 fL 96.9 fL Mean Corpuscular Hemoglobin 32.0 pg 31.5 pg Mean Corpuscular Hemoglobin Concent 32.9 g/dl 32.5 g/dl Platelet Count 273 K/uL 184 K/uL Mean Platelet Volume 9.7 fL 10.4 fL Neutrophils (%) (Auto) 72.2 % Lymphocytes (%) (Auto) 18.9 % Monocytes (%) (Auto) 4.2 % Eosinophils (%) (Auto) 3.8 % Basophils (%) (Auto) 0.5 % Neutrophils # (Auto) 6.17 K/uL Lymphocytes # (Auto) 1.61 K/uL Monocytes # (Auto) 0.36 K/uL Eosinophils # (Auto) 0.32 K/uL Basophils # (Auto) 0.04 K/uL RDW Standard Deviation 60.0 fL 59.8 fL RDW Coefficient of Variation 16.8 % 16.9 % Immature Granulocyte % (Auto) 0.4 % Immature Granulocyte # (Auto) 0.03 K/uL Erythrocyte Sedimentation Rate 53 mm/hr Prothrombin Time 10.5 SECONDS Prothromb Time International Ratio 1.0 Sodium Level 131 mmol/L 133 mmol/L Potassium Level 5.3 mmol/L 5.4 mmol/L Chloride Level 94 mmol/L 98 mmol/L Carbon Dioxide Level 30 mmol/L 25 mmol/L Anion Gap 8.0 mmol/L 10.0 mmol/L Blood Urea Nitrogen 37 mg/dl 41 mg/dl Creatinine 5.88 mg/dl 6.77 mg/dl Est Creatinine Clear Calc Drug Dose 23.6 ml/min 20.6 ml/min Estimated GFR () 11.5 9.7 Estimated GFR (Non- 9.9 8.4 BUN/Creatinine Ratio 6.3 6.1 Random Glucose 243 mg/dl 152 mg/dl Estimated Average Glucose 169 mg/dl Hemoglobin A1c 7.5 % Lactic Acid Level 2.1 mmol/L 1.2 mmol/L Calcium Level 9.5 mg/dl 9.2 mg/dl C-Reactive Protein 4.28 mg/dl Bedside Glucose 132 mg/dl Random Vancomycin Level 24.6 mcg/ml Test 10/18/17 08:11 Bedside Glucose 168 mg/dl Patient Name: AMAYA KRUEGER JR Unit Number: [id number] Dictated: 10/17/171529 Transcribed: 10/17/171529 PBS Printed Date/Time: [~ rep prt dt]/[~ rep prt tm] [~ rep ct labl] - [~ rep ct ivnm] [facility] [place] [address] Dictated: 10/17/171529 Transcribed: 10/17/171529 PBS Printed Date/Time: [~ rep prt dt]/[~ rep prt tm] [~ rep ct labl] - [~ rep ct ivnm] R FOOT MIN 3 VIEWS ROUTINE CLINICAL HISTORY: 57 years-old Male presenting with R foot drainage r/o osteomyelitis. TECHNIQUE: Frontal, oblique, and lateral views of the right foot were obtained. COMPARISON: 06/03/2017. FINDINGS: Postsurgical changes of resection of the first toe and the mid to distal portion of the first metatarsal. Interval development of significant erosive changes at the second metatarsophalangeal articulation. Regional osteopenia with questionable osteolysis at the remaining metatarsophalangeal joints. Diffuse soft tissue swelling greatest over the medial foot, where there is a soft tissue defect. Osteopenia. Allowing for this, no displaced fracture. Atherosclerosis. Prominent enthesophyte at the origin of the plantar fascia. No soft tissue emphysema is radiographically apparent. IMPRESSION: 1. Findings highly suspicious for septic arthritis at the second metatarsophalangeal joint. Surgical consultation recommended. 2. Questionable osteomyelitis/septic arthritis at the remaining metatarsophalangeal joints. 3. Postsurgical changes of the first toe and first metatarsal. The report will be called/faxed according to standard departmental protocol. Electronically signed by: Pancho Adler M.D. 10/17/2017 3:33 PM Dictated Date/Time: 10/17/2017 3:30 PM The status of this report is Signed. Draft = Not yet reviewed or approved by Radiologist. Signed = Reviewed and approved by Radiologist. <AttendingPhy></AttendingPhy> <FamilyPhy>Jeannie Arboleda MD</ FamilyPhy> <PrimaryPhy>Jeannie Arboleda MD</PrimaryPhy> <UnitNumber> [id number]</UnitNumber> <VisitNumber>[id number]</VisitNumber> <PatientName> AMAYA KRUEGER JR</PatientName> <DateOfBirth>1960</DateOfBirth> < Location>[facility]</Location> <ServiceDate>10/17/17</ServiceDate> <MNE>ESINDI</MNE> <OrderingPhy>Cm Park M.D.</OrderingPhy> <OrderingPhyMNE>f rep ord dr giraldo</ OrderingPhyMNE> <DictatingPhyMNE>f rep dict dr giraldo</DictatingPhyMNE> <CCListMNE> f rep ct enzo</CCListMNE> <AdmittingPhyMNE>f pt admit dr giraldo</AdmittingPhyMNE> < AttendingPhyMNE>f pt attend dr giraldo</AttendingPhyMNE> <ConsultingPhyMNE>f pt consult dr giraldo</ConsultingPhyMNE> <FamilyPhyMNE>f pt fam dr giraldo</FamilyPhyMNE> <OtherPhyMNE>f pt other dr giraldo</OtherPhyMNE> < PrimaryPhyMNE>f pt prim care dr giraldo</PrimaryPhyMNE> <ReferringPhyMNE>f pt referring dr giraldo</ReferringPhyMNE> Assessment & Plan 57-year-old male with longstanding diabetes mellitus, neuropathy, nephropathy, and peripheral arterial disease now with nonhealing right foot infection with probable osteomyelitis and septic arthritis. Seen by Orthopedics who recommends amputation as most appropriate treatment, but patient wishes to try medical treatment with chronic suppression prior to undergoing amputation. Patient will be continued on broad-spectrum antibiotics pending further culture results. Will follow.
[2017-10-18] MEDS ORDERED: NURSING VERBAL MED ORDER ONE (11:00)
--- NOTE | 2017-10-18 12:30 | Nephrology Consultation ---
Nephrology Consultation Date & Providers Date of Consultation: Oct 18, 2017. Primary Care Provider: Jeannie Arboleda MD Referring Provider: Reason for Consultation ESRD History of Present Illness Mr. Quinonez is a 57 year-old male with obesity (BMI 51), AODM, HTN and ESRD. He recently completed treatment for gas gangrene involving the right great toe. In April Mr. Quinonez was found to have an ischemic R great toe. He was referred to Dr. Baxter in [place] and underwent R anterior tibial artery atherectomy. He then received wound care. Recently Mr. Quinonez was found to have gas gangrene involving his R great toe. He was admitted to [facility] and underwent amputation. Following the procedure he was transferred to [facility] to allow for continued IV antibiotic therapy and inpatient HD. Mr. Quinonez completed a total of 6 weeks of antibiotics. The patient presented to the ED at [facility] yesterday with right foot infection. HE was referred by his linux vmware administrator, Dr. Le in [place]. He has evidence of osteomyelitis. MRI was reviewed. Podiatry, ID and orthopedic consultation was reviewed. HE has received treatment with Unasyn and vancomycin. The patient denies any complaints at this time. He has not had feeling in his feet for quite some time due to diabetic neuropathy. The patient denies fevers, chills, sweats, chest pain, palpitations, claudication, cough, wheezing, shortness of breath, nausea, vomiting, abdominal pain. He has been tolerating hemodialysis well. He presented to [facility] 10/04 with volume overload. Evaluation revealed nephrotic syndrome, advanced renal insufficiency and small echogenic kidneys on ultrasound. Mr. Quinonez required IJ THC insertion and initiation of HD . He had a L wrist AVF created by Dr. Solomon 10/16/16. Since then Mr. Quinonez has been under the care of Dr. Marybel Israel and receives HD TTS at the [facility] HD unit (5 hours, F-250 dialyzer, 3K 2.5Ca bath, Qb 450 Qd 800, EDW 172 kg, Heparin 2000 U bolus + 2000 units/hr, Calcitriol 1.75 mcg po w / each HD, Iron 50 mg IV w/ each treatment and Mircera as per protocol). Past Medical/Surgical History Medical: # ESRD on HD TTS at [facility] (Dr. Israel) # HTN # Obesity (BMI 51) # Chronic diastolic CHF # PAD s/p R tibial artery atherectomy ([place] 05/06) and R great toe amputation ([place] 06/06) # AODM Surgical: # L wrist AVF 10/04 - Dr. Solomon # R tibial artery atherectomy ([place] 05/06) # R great toe amputation ([place] 06/06) Allergies Coded Allergies: No Known Allergies (Unverified , 10/17/17) Inpatient Medications Current Inpatient Medications Medications (Trade) Dose Ordered Sig/Chavez Route Start Time Stop Time Status Last Admin Dose Admin Acetaminophen (Tylenol Tab) 650 mg Q4H PRN PO 10/17/17 16:45 11/16/17 16:44 Al Hydrox/Mg Hydrox/Simethicone (Maalox Max Susp) 15 ml Q4H PRN PO 10/17/17 16:45 11/16/17 16:44 Magnesium Hydroxide (Milk Of Magnesia Susp) 30 ml Q6H PRN PO 10/17/17 16:45 11/16/17 16:44 Polyethylene (Miralax Powder Packet) 17 gm DAILY PRN PO 10/17/17 16:45 11/16/17 16:44 Ondansetron HCl (Zofran Inj) 4 mg Q6H PRN IV 10/17/17 16:45 11/16/17 16:44 Glucose (Glucose 40% Gel) 15-30 GRAMS 15 GRAMS... UD PRN PO 10/17/17 16:45 11/16/17 16:44 Glucose (Glucose Chew Tab) 4-8 Tablets 4 Tabl... UD PRN PO 10/17/17 16:45 11/16/17 16:44 Dextrose (Dextrose 50% 50ML Syringe) 25-50ML OF 50% DW IV FOR... UD PRN IV 10/17/17 16:45 11/16/17 16:44 Glucagon (Glucagon Inj) 1 mg UD PRN SQ 10/17/17 16:45 11/16/17 16:44 Ampicillin Sodium/ Sulbactam Sodium 3000 mg/Sodium Chloride 108 ml @ 200 mls/hr DAILY@1600 IV 10/18/17 16:00 11/27/17 16:33 Miscellaneous Information (Consult) 1 ea UD PRN N/A 10/17/17 17:00 11/16/17 16:59 Insulin Aspart (novoLOG ASPART) SLIDING SCALE G... ACHS SC 10/17/17 18:00 11/16/17 17:59 Amlodipine Besylate (Norvasc Tab) 10 mg DAILY PO 10/18/17 09:00 11/17/17 08:59 10/18/17 08:52 10 MG Clopidogrel Bisulfate (plAVix TAB) 75 mg DAILY PO 10/18/17 09:00 11/17/17 08:59 10/18/17 08:53 75 MG Furosemide (Lasix Tab) 80 mg BID17 PO 10/17/17 17:00 11/16/17 16:59 10/18/17 08:51 80 MG Lisinopril (Zestril Tab) 40 mg DAILY PO 10/18/17 09:00 11/17/17 08:59 10/18/17 08:53 40 MG Metoprolol Tartrate (Lopressor Tab) 100 mg BID PO 10/17/17 21:00 11/16/17 20:59 10/18/17 08:52 100 MG Calcium Acetate (Phoslo Cap) 1,334 mg TIDM PO 10/17/17 18:00 11/16/17 17:59 10/18/17 08:51 1,334 MG Ampicillin Sodium/ Sulbactam Sodium (Consult) 1 ea UD PRN N/A 10/17/17 17:30 11/16/17 17:29 Heparin Sodium (Porcine) (Heparin Sq 5000 Unit/0.5ml) 5,000 unit Q12 SQ 10/17/17 21:00 11/16/17 20:59 Hydralazine HCl (HydrALAZINE INJ) 10 mg Q6H PRN IV. 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 Pertinent positives are noted above. All other systems are negative. Physical Exam Date Time Temp Pulse Resp B/P (MAP) Pulse Ox O2 Delivery O2 Flow Rate FiO2 10/18/17 08:51 36.5 76 18 166/84 (111) 97 Room Air 10/18/17 08:50 Room Air 10/17/17 23:23 36.7 73 16 120/69 (86) 99 Room Air 10/17/17 21:32 Room Air 10/17/17 20:36 74 179/82 (114) 10/17/17 19:29 Room Air 10/17/17 19:23 36.9 74 18 193/80 (117) 96 Room Air 10/17/17 18:36 83 18 147/77 94 Room Air 10/17/17 16:52 36.5 77 18 189/85 98 Room Air 10/17/17 14:10 36.4 100 18 209/77 99 Room Air General Appearance: no apparent distress, + obese Head: normocephalic, atraumatic Eyes: normal inspection, sclerae normal ENT: normal ENT inspection, pharynx normal Neck: supple, no JVD Respiratory/Chest: lungs clear, no respiratory distress, no accessory muscle use Cardiovascular: regular rate, rhythm Laboratory Results Last 24 Hours Test 10/17/17 14:50 10/17/17 19:56 10/17/17 20:09 10/18/17 06:01 White Blood Count 8.53 K/uL 9.13 K/uL Red Blood Count 3.28 M/uL 3.27 M/uL Hemoglobin 10.5 g/dL 10.3 g/dL Hematocrit 31.9 % 31.7 % Mean Corpuscular Volume 97.3 fL 96.9 fL Mean Corpuscular Hemoglobin 32.0 pg 31.5 pg Mean Corpuscular Hemoglobin Concent 32.9 g/dl 32.5 g/dl Platelet Count 273 K/uL 184 K/uL Mean Platelet Volume 9.7 fL 10.4 fL Neutrophils (%) (Auto) 72.2 % Lymphocytes (%) (Auto) 18.9 % Monocytes (%) (Auto) 4.2 % Eosinophils (%) (Auto) 3.8 % Basophils (%) (Auto) 0.5 % Neutrophils # (Auto) 6.17 K/uL Lymphocytes # (Auto) 1.61 K/uL Monocytes # (Auto) 0.36 K/uL Eosinophils # (Auto) 0.32 K/uL Basophils # (Auto) 0.04 K/uL RDW Standard Deviation 60.0 fL 59.8 fL RDW Coefficient of Variation 16.8 % 16.9 % Immature Granulocyte % (Auto) 0.4 % Immature Granulocyte # (Auto) 0.03 K/uL Erythrocyte Sedimentation Rate 53 mm/hr Prothrombin Time 10.5 SECONDS Prothromb Time International Ratio 1.0 Sodium Level 131 mmol/L 133 mmol/L Potassium Level 5.3 mmol/L 5.4 mmol/L Chloride Level 94 mmol/L 98 mmol/L Carbon Dioxide Level 30 mmol/L 25 mmol/L Anion Gap 8.0 mmol/L 10.0 mmol/L Blood Urea Nitrogen 37 mg/dl 41 mg/dl Creatinine 5.88 mg/dl 6.77 mg/dl Est Creatinine Clear Calc Drug Dose 23.6 ml/min 20.6 ml/min Estimated GFR () 11.5 9.7 Estimated GFR (Non- 9.9 8.4 BUN/Creatinine Ratio 6.3 6.1 Random Glucose 243 mg/dl 152 mg/dl Estimated Average Glucose 169 mg/dl Hemoglobin A1c 7.5 % Lactic Acid Level 2.1 mmol/L 1.2 mmol/L Calcium Level 9.5 mg/dl 9.2 mg/dl C-Reactive Protein 4.28 mg/dl Bedside Glucose 132 mg/dl Random Vancomycin Level 24.6 mcg/ml Test 10/18/17 08:11 Bedside Glucose 168 mg/dl Impression (1) End-stage renal disease on hemodialysis (2) Anemia (3) R great toe gangrene s/p amputation (4) Osteomyelitis (5) Obesity (6) Diabetes (7) Hypertension Mr. Quinonez was admitted to the hospital with evidence of persistent infection of the right foot with osteomyelitis. He is being treated medically at this time. He has deferred surgery. The patient has ESRD requiring TTS HD. Recommendations END STAGE RENAL DISEASE: -- [facility] called this am and chronic outpatient HD orders were obtained -- Will provide HD today according to outpatient orders. HD RN notified -- Protect L wrist AVF -- Renal diet HYPERTENSION: -- Blood pressure is mildly elevated -- Monitor bp following UF with HD -- Continue home bp regimen of Metoprolol, Furosemide and Lisinopril ANEMIA: -- Will provide ERI w/ HD CKD-BMD: -- Continue Phos-lo w/ meals ID: -- On IV Unasyn. Pharmacy has been consulted to adjust dose for ESRD -- Await culture results from linux vmware administrator
--- NOTE | 2017-10-18 12:38 | CONSULTATION REPORT ---
DATE OF CONSULTATION: 10/18/2017 A 57-year-old male, patient of Dr. Le, seen at bedside at the request of heel room supervisor. The patient has a complicated history of long-term diabetes with peripheral vascular disease and peripheral neuropathy. He underwent a revascularization procedure in April as well as an amputation of distal aspect of the right hallux by Dr. Le due to gas gangrene. I initially saw the patient during the last admission as he was here for dialysis immediately following the amp. He now presents back with recommendation of Dr. Le due to increased swelling, redness and drainage from the amp site. PAST MEDICAL HISTORY: Hypertension, PVD, CHF, IDDM, renal disease, on dialysis, chronic anemia, peripheral neuropathy, metabolic acidosis, obesity, proteinemia, secondary hyperthyroidism due to renal disease and morbid obesity. MEDICATIONS: Per chart. Currently getting Unasyn. ALLERGIES: No known drug allergies. FAMILY HISTORY: Diabetes, hypertension, kidney disease, lung cancer. SOCIAL HISTORY: He lives alone. PHYSICAL EXAMINATION: VITAL SIGNS: Afebrile. LOWER EXTREMITIES: DP and PT nonpalpable. There is a popliteal pulse palpable on the right faintly. Good bleeding noted at the amp site of the right hallux. Significant swelling noted throughout the forefoot to the right foot. DERMATOLOGIC: There is an ulceration measuring 2.3 x 1.9 over the right hallux amp site that is tracking toward the second metatarsal, approximately 2-3 cm from the amp site. Mild malodor. Erythema involving the forefoot and right second MTPJ and right first MTPJ area. NEUROLOGIC: Epicritic sensation grossly absent. MUSCULOSKELETAL: Amputation of the right hallux. Blood cultures are pending. Wound culture taken at bedside today. LABORATORY DATA: 9.13 with increased band cells noted on admission. Sed rate 53. C-reactive protein 4.38. H&H 10.3 and 31.7. X-rays show first met resection, significant destruction noted right second MTPJ with periosteal changes around the joint. No gas in the subcutaneous soft tissue. There is an KEELEY on the chart from 10/14/2016 prior to revascularization, showing an KEELEY on the right of 0.77 and on the left of 0.88. MRI results are pending. IMPRESSION: 1. Septic arthritis versus osteomyelitis right second metatarsophalangeal joint. 2. Cellulitis right lower extremity. 3. History of gas gangrene right hallux with amputation. 4. Status post revascularization in the fall of 2017. TREATMENT: Discussed treatment options at bedside with the patient. The patient is a long-term diabetic with peripheral vascular disease and peripheral neuropathy. He is concerned with postoperative recovery of any amputation and is electing to proceed with medical treatment at this time. We discussed penetration of the antibiotic not penetrating to bone. MRI findings are still pending, although most likely with the tracking and the radiographic evidence on bone, I recommended amputation. We discussed a transmetatarsal amputation with tendo-Achilles lengthening in the right lower extremity versus the BK amputation discussed previously with ortho. All questions were answered at bedside. The patient wishes to contemplate these treatment options at this time. We will follow up with the patient tomorrow.
--- NOTE | 2017-10-18 13:51 | Pharmacy Progress Note ---
Pharmacy Antibiotic Prog Note Date of Service Oct 18, 2017. Subjective The patient is currently receiving VANCOMYCIN IV empirically based on levels. The patient is currently on day # 2 of VANCOMYCIN / UNASYN IV therapy. Objective Height (Feet): 6 Height (Inches): 0.00 Weight (Kilograms): 179.000 Levels: Item Value Date Time Random Vancomycin Level 24.6 mcg/ml 10/18/17 0601 Lab Results (24hrs): Test 10/17/17 14:50 10/17/17 19:56 10/18/17 06:01 10/18/17 08:11 White Blood Count 8.53 K/uL (4.8-10.8) 9.13 K/uL (4.8-10.8) Red Blood Count 3.28 M/uL (4.7-6.1) 3.27 M/uL (4.7-6.1) Hemoglobin 10.5 g/dL (14.0-18.0) 10.3 g/dL (14.0-18.0) Hematocrit 31.9 % (42-52) 31.7 % (42-52) Mean Corpuscular Volume 97.3 fL (80-100) 96.9 fL (80-100) Mean Corpuscular Hemoglobin 32.0 pg (25-34) 31.5 pg (25-34) Mean Corpuscular Hemoglobin Concent 32.9 g/dl (32-36) 32.5 g/dl (32-36) Platelet Count 273 K/uL (130-400) 184 K/uL (130-400) Mean Platelet Volume 9.7 fL (7.4-10.4) 10.4 fL (7.4-10.4) Neutrophils (%) (Auto) 72.2 % Lymphocytes (%) (Auto) 18.9 % Monocytes (%) (Auto) 4.2 % Eosinophils (%) (Auto) 3.8 % Basophils (%) (Auto) 0.5 % Neutrophils # (Auto) 6.17 K/uL (1.4-6.5) Lymphocytes # (Auto) 1.61 K/uL (1.2-3.4) Monocytes # (Auto) 0.36 K/uL (0.11-0.59) Eosinophils # (Auto) 0.32 K/uL (0-0.5) Basophils # (Auto) 0.04 K/uL (0-0.2) RDW Standard Deviation 60.0 fL (36.4-46.3) 59.8 fL (36.4-46.3) RDW Coefficient of Variation 16.8 % (11.5-14.5) 16.9 % (11.5-14.5) Immature Granulocyte % (Auto) 0.4 % Immature Granulocyte # (Auto) 0.03 K/uL (0.00-0.02) Erythrocyte Sedimentation Rate 53 mm/hr (0-14) Prothrombin Time 10.5 SECONDS (9.0-12.0) Prothromb Time International Ratio 1.0 (0.9-1.1) Sodium Level 131 mmol/L (136-145) 133 mmol/L (136-145) Potassium Level 5.3 mmol/L (3.5-5.1) 5.4 mmol/L (3.5-5.1) Chloride Level 94 mmol/L (98-107) 98 mmol/L (98-107) Carbon Dioxide Level 30 mmol/L (21-32) 25 mmol/L (21-32) Anion Gap 8.0 mmol/L (3-11) 10.0 mmol/L (3-11) Blood Urea Nitrogen 37 mg/dl (7-18) 41 mg/dl (7-18) Creatinine 5.88 mg/dl (0.60-1.40) 6.77 mg/dl (0.60-1.40) Est Creatinine Clear Calc Drug Dose 23.6 ml/min 20.6 ml/min Estimated GFR () 11.5 9.7 Estimated GFR (Non- 9.9 8.4 BUN/Creatinine Ratio 6.3 (10-20) 6.1 (10-20) Random Glucose 243 mg/dl (70-99) 152 mg/dl (70-99) Estimated Average Glucose 169 mg/dl Hemoglobin A1c 7.5 % (4.5-5.6) Lactic Acid Level 2.1 mmol/L (0.4-2.0) 1.2 mmol/L (0.4-2.0) Calcium Level 9.5 mg/dl (8.5-10.1) 9.2 mg/dl (8.5-10.1) C-Reactive Protein 4.28 mg/dl (0-0.29) Random Vancomycin Level 24.6 mcg/ml Bedside Glucose 168 mg/dl (70-99) Test 10/18/17 12:13 Bedside Glucose 177 mg/dl (70-99) Micro Results: * 10/17/17 -- Nasal -- (-) MRSA * 10/17/17 -- Blood Cx x 2 -- pending * 10/18/17 -- R foot surface/drainage -- pending Recent Pertinent Medications Item Value Date Time Ampicillin Sodium/ 108 ml @ 200 mls/hr 10/18/17 1600 Sulbactam Sodium DAILY@1600/IV 3000 mg/Sodium Chloride Assessment & Plan 57yo morbidly obese male receiving VANCOMYCIN and UNASYN for septic arthritis of RLE. He is in ESRD on outpatient HD //. VANCOMYCIN: * Patient received VANCOMYCIN 3000mg IV total yesterday (~17mg/kg based in Actual BW). * Random VANCOMYCIN level drawn this am = 24.6 mcg/mL. * This drug level is Supratherapeutic. * Patient will have his regularly scheduled dialysis treatment today around 1330. * Based on this morning pre-HD level of 24.6 mcg/mL, will give a dose of VANCOMYCIN 500mg IV today AFTER dialysis. * Will check a random VANCOMYCIN level tomorrow with am labs. * Will continue to dose PRN to keep random level between 15-20 mcg/mL. Pharmacy will continue to follow and will adjust dose/frequency as necessary. Thank you
[2017-10-18] MEDS ORDERED: HEPARIN SOD (PORCINE) 1000 UNIT/ML 10 ML VIAL IV SCH (14:15)
--- NOTE | 2017-10-18 14:37 | DIAGNOSTIC IMAGING REPORT ---
MRI OF THE RIGHT FOREFOOT WITHOUT IV CONTRAST CLINICAL HISTORY: Infection. COMPARISON STUDY: Radiographs of the right foot dated 10/17/2017. TECHNIQUE: MRI of the right forefoot is performed utilizing various T1 and T2-weighted sequences in the axial, sagittal, and coronal planes. IV contrast was not administered for this examination. The examination is significantly compromised by motion artifact. FINDINGS: There are postoperative changes from resection of the first toe at the level of the proximal shaft of the first metatarsal. No destructive change is suggested at the resection margin. There is destructive change/erosion seen involving the second metatarsal head as well as the base of the second proximal phalanx, with drop in T1 signal and marrow edema seen on the T2-weighted sequences. The appearance is typical for osteomyelitis. No similar-appearing marrow changes are identified throughout the remaining visualized osseous structures. There is chronic-appearing deformity of the third metatarsal head. Mild arthritic change is seen involving the intertarsal and tarsometatarsal joints. Significant subcutaneous soft tissue edema is noted in the medial aspect of the forefoot consistent with cellulitis. Subcutaneous fluid is present around the second metatarsophalangeal joint. A cutaneous ulceration is suggested along the dorsomedial aspect of the forefoot, best seen on axial STIR image number 14. There is evidence of myositis involving the regional musculature. The visualized plantar fascia is normal in appearance. IMPRESSION: 1. Motion-compromised examination. 2. Findings are consistent with osteomyelitis involving the head of the second metatarsal and the base of the second proximal phalanx. 3. No additional similar-appearing marrow changes are identified throughout the remainder of the forefoot noting status post amputation of the first toe. 4. There is evidence of cellulitis involving the medial aspect of the forefoot. 5. A cutaneous ulceration is suggested overlying the dorsomedial aspect of the foot. Nonspecific fluid is identified around the second metatarsophalangeal joint as well as deep to the ulceration. Small abscesses are not excluded. Clinical correlation will be required. Dictated: 10/18/2017 10:06 AM Transcribed: 10/18/2017 2:37 PM [email or web address] Electronically signed by: Channing Nieto M.D. 10/18/2017 3:07 PM Dictated Date/Time: 10/18/2017 10:06 AM
--- NOTE | 2017-10-18 15:58 | Progress Note ---
Subjective Date of Service: Oct 18, 2017. Subjective Pt evaluation today including: conversation w/ patient, physical exam, chart review, lab review, review of studies, conversation w/ fashion consultant selling, review of inpatient medication list Right foot is still have open wounds and yellow drainage and local swelling and red Problem List Medical Problems: (1) CHF exacerbation Status: Acute Review of Systems Constitutional: No fever, No chills, No sweats, No weight loss, No weakness, No fatigue, No problem reported Eyes: No worsening of vision, No eye pain, No redness, No discharge, No diplopia ENT: No hearing loss, No unusual epistaxis, No nasal symptoms, No sore throat, No tinnitus, No dental problems, No trouble swallowing Respiratory: No cough, No sputum, No wheezing, No shortness of breath, No dyspnea on exertion, No dyspnea at rest, No hemoptysis Cardiac: No chest pain, No orthopnea, No PND, No edema, No claudication, No palpitations Abdomen: No pain, No nausea, No vomiting, No diarrhea, No constipation Musculoskeletal: No joint pain, No muscle pain, No swelling, No calf pain Male : No dysuria, No urinary frequency, No incontinence, No nocturia more than once/night, No slowing stream, No hematuria Neurologic: + problem reported (No sensations or pain in bilateral lower extremities because of 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), No memory loss, No paralysis, No weakness, No numbness/tingling, No vertigo, No balance problems Psychiatric: No depression symptoms, No anhedonism, No anxiety, No insomnia, No substance abuse Heme: No abnormal bleeding/bruising, No clotting problems, No swollen lymph nodes, No night sweats Endo: No fatigue, No excessive thirst, No excessive urination Skin: + see HPI, No rash, No itch, No new/changing skin lesions, No color change, No bleeding Objective Vital Signs Date Time Temp Pulse Resp B/P (MAP) Pulse Ox O2 Delivery O2 Flow Rate FiO2 10/18/17 08:51 36.5 76 18 166/84 (111) 97 Room Air 10/18/17 08:50 Room Air 10/17/17 23:23 36.7 73 16 120/69 (86) 99 Room Air 10/17/17 21:32 Room Air 10/17/17 20:36 74 179/82 (114) 10/17/17 19:29 Room Air 10/17/17 19:23 36.9 74 18 193/80 (117) 96 Room Air 10/17/17 18:36 83 18 147/77 94 Room Air 10/17/17 16:52 36.5 77 18 189/85 98 Room Air Physical Exam General Appearance: WD/WN, no apparent distress, + obese Eyes: normal inspection, PERRL, EOMI, sclerae normal ENT: normal ENT inspection, hearing grossly normal, pharynx normal Neck: supple, no adenopathy, thyroid normal, no JVD, no carotid bruits, trachea midline Respiratory/Chest: chest non-tender, lungs clear, no respiratory distress, no accessory muscle use, + decreased breath sounds Cardiovascular: regular rate, rhythm, no edema, no gallop, no JVD, no murmur Abdomen: normal bowel sounds, non tender, soft, no organomegaly, no pulsatile mass Extremities: normal range of motion, non-tender, normal inspection, no pedal edema, no calf tenderness, normal capillary refill, pelvis stable Neurologic/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: 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, no motor/sensory deficits, alert, normal mood/affect, oriented x 3 Skin: normal color, warm/dry, no rash Lymphatic: no adenopathy Laboratory Results Last 24 Hours Test 10/17/17 19:56 10/17/17 20:09 10/18/17 06:01 10/18/17 08:11 Lactic Acid Level 1.2 mmol/L Bedside Glucose 132 mg/dl 168 mg/dl White Blood Count 9.13 K/uL Red Blood Count 3.27 M/uL Hemoglobin 10.3 g/dL Hematocrit 31.7 % Mean Corpuscular Volume 96.9 fL Mean Corpuscular Hemoglobin 31.5 pg Mean Corpuscular Hemoglobin Concent 32.5 g/dl RDW Standard Deviation 59.8 fL RDW Coefficient of Variation 16.9 % Platelet Count 184 K/uL Mean Platelet Volume 10.4 fL Sodium Level 133 mmol/L Potassium Level 5.4 mmol/L Chloride Level 98 mmol/L Carbon Dioxide Level 25 mmol/L Anion Gap 10.0 mmol/L Blood Urea Nitrogen 41 mg/dl Creatinine 6.77 mg/dl Est Creatinine Clear Calc Drug Dose 20.6 ml/min Estimated GFR () 9.7 Estimated GFR (Non- 8.4 BUN/Creatinine Ratio 6.1 Random Glucose 152 mg/dl Calcium Level 9.2 mg/dl Random Vancomycin Level 24.6 mcg/ml Test 10/18/17 12:13 Bedside Glucose 177 mg/dl Assessment and Plan 57 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 Le in [place]. Right foot open wound and cellulitis, associated with osteomyelitis in the head of the second metatarsal and the base of the second proximal phalanx. Possible mild sepsis upon admission with an elevated lactase MRI of the foot reported below: 1. Motion-compromised examination. 2. Findings are consistent with osteomyelitis involving the head of the second metatarsal and the base of the second proximal phalanx. 3. No additional similar-appearing marrow changes are identified throughout the remainder of the forefoot noting status post amputation of the first toe. 4. There is evidence of cellulitis involving the medial aspect of the forefoot. 5. A cutaneous ulceration is suggested overlying the dorsomedial aspect of the foot. Nonspecific fluid is identified around the second metatarsophalangeal joint as well as deep to the ulceration. Small abscesses are not excluded. Clinical correlation will be required. Possible accelerated hypertension with history of HTN, Continue current medications and hydralazine as needed PAD, chronic diastolic CHF, anemia of chronic disease, deconditioning stable will continue current medication DM II, the new home medication plus insulin sliding scale check HbA1c ESRD on HD, nephrology on the case will continue follow-up As above, appreciated ID consult and nephrology consult, GI DVT prophylaxis is covered, Continued [facility] stay due to: multiple IV medications needed Discharge planning: home
[2017-10-18] MEDS ORDERED: HydrALAZINE HCL 20 MG/ML VIAL IV. PRN (16:00)
[2017-10-18] MEDS: HEPARIN SOD (PORCINE) 1000 UNIT/ML 10 ML VIAL IV SCH ×3 (16:15→18:10)
--- NOTE | 2017-10-18 17:19 | Dialysis Progress Note ---
Hemodialysis Note Date of Service Oct 18, 2017. Chief Complaint ESRD Subjective Mr. Quinonez was seen and evaluated during hemodialysis. He was tolerating the procedure well. AVF was accessed on second attempt and Qb is now acceptable. BP is normal. UF goal 3-4 L. No complaints or concerns expressed by Mr. Quinonez. Review of Systems A complete review of systems was performed. Pertinent positives are noted above. All other systems are negative. 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) Laboratory Results Past 24 Hours 10/18/17 06:01 10/18/17 06:01 Test 10/17/17 19:56 10/17/17 20:09 10/18/17 06:01 10/18/17 08:11 Lactic Acid Level 1.2 mmol/L (0.4-2.0) Bedside Glucose 132 mg/dl (70-99) 168 mg/dl (70-99) Red Blood Count 3.27 M/uL (4.7-6.1) Mean Corpuscular Volume 96.9 fL (80-100) Mean Corpuscular Hemoglobin 31.5 pg (25-34) Mean Corpuscular Hemoglobin Concent 32.5 g/dl (32-36) RDW Standard Deviation 59.8 fL (36.4-46.3) RDW Coefficient of Variation 16.9 % (11.5-14.5) Mean Platelet Volume 10.4 fL (7.4-10.4) Anion Gap 10.0 mmol/L (3-11) Est Creatinine Clear Calc Drug Dose 20.6 ml/min Estimated GFR () 9.7 Estimated GFR (Non- 8.4 BUN/Creatinine Ratio 6.1 (10-20) Calcium Level 9.2 mg/dl (8.5-10.1) Random Vancomycin Level 24.6 mcg/ml Test 10/18/17 12:13 Bedside Glucose 177 mg/dl (70-99) Date/Time Source Procedure Growth Status 10/17/17 20:15 Nasal MRSA DNA Surveillance Screen - Final Specimen Negative for MRSA by DNA Probe Complete Allergies Coded Allergies: No Known Allergies (Unverified , 10/17/17) Medications Current Inpatient Medications Medications (Trade) Dose Ordered Sig/Chavez Route Start Time Stop Time Status Last Admin Dose Admin Acetaminophen (Tylenol Tab) 650 mg Q4H PRN PO 10/17/17 16:45 11/16/17 16:44 Al Hydrox/Mg Hydrox/Simethicone (Maalox Max Susp) 15 ml Q4H PRN PO 10/17/17 16:45 11/16/17 16:44 Magnesium Hydroxide (Milk Of Magnesia Susp) 30 ml Q6H PRN PO 10/17/17 16:45 11/16/17 16:44 Polyethylene (Miralax Powder Packet) 17 gm DAILY PRN PO 10/17/17 16:45 11/16/17 16:44 Ondansetron HCl (Zofran Inj) 4 mg Q6H PRN IV 10/17/17 16:45 11/16/17 16:44 Glucose (Glucose 40% Gel) 15-30 GRAMS 15 GRAMS... UD PRN PO 10/17/17 16:45 11/16/17 16:44 Glucose (Glucose Chew Tab) 4-8 Tablets 4 Tabl... UD PRN PO 10/17/17 16:45 11/16/17 16:44 Dextrose (Dextrose 50% 50ML Syringe) 25-50ML OF 50% DW IV FOR... UD PRN IV 10/17/17 16:45 11/16/17 16:44 Glucagon (Glucagon Inj) 1 mg UD PRN SQ 10/17/17 16:45 11/16/17 16:44 Ampicillin Sodium/ Sulbactam Sodium 3000 mg/Sodium Chloride 108 ml @ 200 mls/hr DAILY@1600 IV 10/18/17 16:00 11/27/17 16:33 Miscellaneous Information (Consult) 1 [facility] PRN N/A 10/17/17 17:00 11/16/17 16:59 Insulin Aspart (novoLOG ASPART) SLIDING SCALE G... ACHS SC 10/17/17 18:00 11/16/17 17:59 10/18/17 13:40 1 UNITS Amlodipine Besylate (Norvasc Tab) 10 mg DAILY PO 10/18/17 09:00 11/17/17 08:59 10/18/17 08:52 10 MG Clopidogrel Bisulfate (plAVix TAB) 75 mg DAILY PO 10/18/17 09:00 11/17/17 08:59 10/18/17 08:53 75 MG Furosemide (Lasix Tab) 80 mg BID17 PO 10/17/17 17:00 11/16/17 16:59 10/18/17 08:51 80 MG Lisinopril (Zestril Tab) 40 mg DAILY PO 10/18/17 09:00 11/17/17 08:59 10/18/17 08:53 40 MG Metoprolol Tartrate (Lopressor Tab) 100 mg BID PO 10/17/17 21:00 11/16/17 20:59 10/18/17 08:52 100 MG Calcium Acetate (Phoslo Cap) 1,334 mg TIDM PO 10/17/17 18:00 11/16/17 17:59 10/18/17 13:35 1,334 MG Ampicillin Sodium/ Sulbactam Sodium (Consult) 1 [facility] PRN N/A 10/17/17 17:30 11/16/17 17:29 Heparin Sodium (Porcine) (Heparin Sq 5000 Unit/0.5ml) 5,000 unit Q12 SQ 10/17/17 21:00 11/16/17 20:59 Vancomycin HCl 500 mg/Sodium Chloride 260 ml @ 125 mls/hr 2000 IV 10/18/17 20:00 10/18/17 22:05 Hydralazine HCl (HydrALAZINE INJ) 20 mg Q6H PRN IV. 10/18/17 16:00 11/16/17 21:29 Impression (1) End-stage renal disease on hemodialysis (2) Anemia (3) R great toe gangrene s/p amputation (4) Osteomyelitis (5) Obesity (6) Diabetes (7) Hypertension Mr. Quinonez was admitted to the hospital with evidence of persistent infection of the right foot with osteomyelitis. He is being treated medically at this time. He has deferred surgery. The patient has ESRD requiring TTS HD. Professional oversight was provided during hemodialysis. The patient is tolerating the treatment well.
[2017-10-18] MEDS ORDERED: VANCOMYCIN IV 500 MG in SODIUM CHLORIDE 0.9% 250ML 250 ML IV SCH (20:00)
[2017-10-18] MEDS: AMPICILLIN/SULBACTAM SOD INJ 3,000 MG in SODIUM CHLORIDE 0.9% 100ML 100 ML IV SCH (20:55)
[2017-10-19 06:03] LABS: BASO % 0.4 %; BASO ABS # 0.04 K/uL (0-0.2); EOS % 2.4 %; EOS ABS # 0.26 K/uL (0-0.5); HEMOGLOBIN 10.3 g/dL (14.0-18.0); IG# 0.04 K/uL (0.00-0.02); LYMPH ABS # 2.25 K/uL (1.2-3.4); MEAN CORPUSCULAR HEMOGLOBIN 31.9 pg (25-34); MEAN CORPUSCULAR HGB CONC 33.2 g/dl (32-36); MEAN PLATELET VOLUME 10.2 fL (7.4-10.4); MONO ABS # 0.54 K/uL (0.11-0.59); NEUT % 70.8 %; PLATELET COUNT 261 K/uL (130-400); RED CELL DISTRIBUTION WIDTH CV 16.6 % (11.5-14.5); RED CELL DISTRIBUTION WIDTH SD 58.1 fL (36.4-46.3); WHITE BLOOD COUNT 10.73 K/uL (4.8-10.8)
[2017-10-19 06:50] LABS: CALCIUM 8.8 mg/dl (8.5-10.1); CREATININE 5.83 mg/dl (0.60-1.40); PHOSPHORUS 3.3 mg/dl (2.5-4.9); POTASSIUM 4.7 mmol/L (3.5-5.1)
[2017-10-19 07:22] VITALS: BP 142/76; PULSE 81; TEMP 36.8; O2SAT 100
[2017-10-19] MEDS: HEPARIN SOD 5000 UNIT/0.5 ML CARP SQ SCH ×2 (09:00→21:00)
[2017-10-19] MEDS: FUROSEMIDE 80 MG TAB PO SCH ×2 (09:03→16:42)
[2017-10-19] MEDS: METOPROLOL TARTRATE 100 MG TAB PO SCH ×2 (09:04→20:59)
[2017-10-19] MEDS: CALCIUM ACETATE 667MG GELCAP PO SCH ×3 (09:05→18:08)
[2017-10-19] MEDS: LISINOPRIL 40 MG TAB PO SCH (09:05)
[2017-10-19] MEDS: CLOPIDOGREL BISULFATE 75 MG TAB PO SCH (09:05)
[2017-10-19] MEDS: AMLODIPINE BESYLATE 5 MG TAB PO SCH (09:05)
[2017-10-19] MEDS: INSULIN ASPART 100 UNITS/ML 3 ML PEN SC SCH ×4 (09:08→20:59)
--- NOTE | 2017-10-19 10:56 | PROGRESS NOTE ---
DATE: 10/19/2017 SUBJECTIVE: A 57-year-old diabetic, admitted with right forefoot infection after previous great toe amputation. No interval change in symptoms. He has no pain. He did get an MRI yesterday. OBJECTIVE: VITAL SIGNS: Temperature 36.8. Vital signs stable. GENERAL: Physical examination reveals a pleasant, middle-aged male. He is moving around his room quite comfortably EXTREMITIES: Examination of the right foot is unchanged. He continues to have an open wound in the medial side of his foot with a little bit of purulent drainage. He can dorsiflex and plantarflex his foot appropriately. Minimal cellulitis. MRI: MRI is reviewed. It shows a pretty significant edematous changes and marrow changes in the second metatarsal, extending proximally as well as the MTP joint. A lot of soft tissue inflammation in the entire forefoot region. No obvious pus collections. ASSESSMENT: A 57-year-old male diabetic, status post a right great toe amputation in the past with persistent right foot osteomyelitis. PLAN: We discussed treatment options once again. In my opinion, options are chronic suppression antibiotics and just managing this over time until it gets bad enough to warrant a below knee amputation. I do not think any amputation less than a below knee amputation is going to predictably heal in this gentleman and it would be a waste of medical dollars and medical resources and a lot of his time. Certainly these things can fester and be managed with chronic suppression antibiotics for a long time in some patients and I think that is what he wants to and is going to want to do. From my standpoint, he just needs a referral back to wound clinic and routine wound care. I do think he will benefit from some oral antibiotics and I will leave that up to the infectious disease people to recommend. If he decides to proceed with amputation, we would be happy to assist him with this. Obviously, if he shows signs of sepsis, then he would need to proceed with surgical tx. In my opinion, it would be a below knee amputation. Any orthopedic questions can be directed to me at [phone]. I think he is acceptable for discharge any time. Certainly, he is at risk for further infection and he is aware of this. [facility]
--- NOTE | 2017-10-19 11:28 | Nephrology Progress Note ---
Nephrology Progress Note Date of Service Oct 19, 2017. Chief Complaint ESRD Subjective No acute events overnight. Mr. Quinonez tolerated dialysis well. He has no complaints this morning. Denies dyspnea. Reports adequate UF. No fevers or chills. He hopes to be discharged home soon. Review of Systems A complete review of systems was performed. Pertinent positives are noted above. All other systems are negative. Vital Signs Last 8 Hrs Date Time Temp Pulse Resp B/P (MAP) Pulse Ox O2 Delivery O2 Flow Rate FiO2 10/19/17 07:45 Room Air 10/19/17 07:22 36.8 81 18 142/76 (98) 100 Room Air Last Recorded Weight Weight (Kilograms): 182.000 Physical Exam General Appearance: no apparent distress, + obese Head: normocephalic, atraumatic Eyes: normal inspection, sclerae normal ENT: normal ENT inspection, pharynx normal Neck: supple, no JVD Respiratory/Chest: lungs clear, no respiratory distress, no accessory muscle use Cardiovascular: regular rate, rhythm, no gallop Abdomen/GI: non tender, soft Extremities/Musculoskelatal: normal inspection, + pedal edema, + pertinent finding (AVF with thrill and bruit; I did not examine foot wound) Neurologic/Psych: alert, normal mood/affect Family History Cancer Diabetes mellitus Heart disease Hypertension Kidney disease Kidney stones Lung disease Social History Smokeless Tobacco Use: No Alcohol Use: none Drug Use: none Marital Status: single Housing Status: lives alone 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) Laboratory Results Past 24 Hours 10/19/17 05:34 Red Blood Count 3.23, Mean Corpuscular Volume 96.0, Mean Corpuscular Hemoglobin 31.9, Mean Corpuscular Hemoglobin Concent 33.2, Mean Platelet Volume 10.2, Neutrophils (%) (Auto) 70.8, Lymphocytes (%) (Auto) 21.0, Monocytes (%) (Auto) 5.0, Eosinophils (%) (Auto) 2.4, Basophils (%) (Auto) 0.4, Neutrophils # (Auto) 7.60, Lymphocytes # (Auto) 2.25, Monocytes # (Auto) 0.54, Eosinophils # (Auto) 0.26, Basophils # (Auto) 0.04 10/19/17 05:34 Test 10/18/17 12:13 10/18/17 20:31 10/19/17 05:34 10/19/17 08:09 Bedside Glucose 177 mg/dl (70-99) 160 mg/dl (70-99) 135 mg/dl (70-99) White Blood Count 10.73 K/uL (4.8-10.8) Red Blood Count 3.23 M/uL (4.7-6.1) Hemoglobin 10.3 g/dL (14.0-18.0) Hematocrit 31.0 % (42-52) Mean Corpuscular Volume 96.0 fL (80-100) Mean Corpuscular Hemoglobin 31.9 pg (25-34) Mean Corpuscular Hemoglobin Concent 33.2 g/dl (32-36) Platelet Count 261 K/uL (130-400) Mean Platelet Volume 10.2 fL (7.4-10.4) Neutrophils (%) (Auto) 70.8 % Lymphocytes (%) (Auto) 21.0 % Monocytes (%) (Auto) 5.0 % Eosinophils (%) (Auto) 2.4 % Basophils (%) (Auto) 0.4 % Neutrophils # (Auto) 7.60 K/uL (1.4-6.5) Lymphocytes # (Auto) 2.25 K/uL (1.2-3.4) Monocytes # (Auto) 0.54 K/uL (0.11-0.59) Eosinophils # (Auto) 0.26 K/uL (0-0.5) Basophils # (Auto) 0.04 K/uL (0-0.2) RDW Standard Deviation 58.1 fL (36.4-46.3) RDW Coefficient of Variation 16.6 % (11.5-14.5) Immature Granulocyte % (Auto) 0.4 % Immature Granulocyte # (Auto) 0.04 K/uL (0.00-0.02) Anion Gap 7.0 mmol/L (3-11) Est Creatinine Clear Calc Drug Dose 24.2 ml/min Estimated GFR () 11.6 Estimated GFR (Non- 10.0 BUN/Creatinine Ratio 5.5 (10-20) Calcium Level 8.8 mg/dl (8.5-10.1) Phosphorus Level 3.3 mg/dl (2.5-4.9) Magnesium Level 2.1 mg/dl (1.8-2.4) Random Vancomycin Level 24.9 mcg/ml Allergies Coded Allergies: No Known Allergies (Unverified , 10/17/17) Medications Current Inpatient Medications Medications (Trade) Dose Ordered Sig/Chavez Route Start Time Stop Time Status Last Admin Dose Admin Acetaminophen (Tylenol Tab) 650 mg Q4H PRN PO 10/17/17 16:45 11/16/17 16:44 Al Hydrox/Mg Hydrox/Simethicone (Maalox Max Susp) 15 ml Q4H PRN PO 10/17/17 16:45 11/16/17 16:44 Magnesium Hydroxide (Milk Of Magnesia Susp) 30 ml Q6H PRN PO 10/17/17 16:45 11/16/17 16:44 Polyethylene (Miralax Powder Packet) 17 gm DAILY PRN PO 10/17/17 16:45 11/16/17 16:44 Ondansetron HCl (Zofran Inj) 4 mg Q6H PRN IV 10/17/17 16:45 11/16/17 16:44 Glucose (Glucose 40% Gel) 15-30 GRAMS 15 GRAMS... UD PRN PO 10/17/17 16:45 11/16/17 16:44 Glucose (Glucose Chew Tab) 4-8 Tablets 4 Tabl... UD PRN PO 10/17/17 16:45 11/16/17 16:44 Dextrose (Dextrose 50% 50ML Syringe) 25-50ML OF 50% DW IV FOR... UD PRN IV 10/17/17 16:45 11/16/17 16:44 Glucagon (Glucagon Inj) 1 mg UD PRN SQ 10/17/17 16:45 11/16/17 16:44 Ampicillin Sodium/ Sulbactam Sodium 3000 mg/Sodium Chloride 108 ml @ 200 mls/hr DAILY@1600 IV 10/18/17 16:00 11/27/17 16:33 10/18/17 20:55 200 MLS/HR Miscellaneous Information (Consult) 1 ea UD PRN N/A 10/17/17 17:00 11/16/17 16:59 Insulin Aspart (novoLOG ASPART) SLIDING SCALE G... ACHS SC 10/17/17 18:00 11/16/17 17:59 10/19/17 09:08 2 UNITS Amlodipine Besylate (Norvasc Tab) 10 mg DAILY PO 10/18/17 09:00 11/17/17 08:59 10/19/17 09:05 10 MG Clopidogrel Bisulfate (plAVix TAB) 75 mg DAILY PO 10/18/17 09:00 11/17/17 08:59 10/19/17 09:05 75 MG Furosemide (Lasix Tab) 80 mg BID17 PO 10/17/17 17:00 11/16/17 16:59 10/19/17 09:03 80 MG Lisinopril (Zestril Tab) 40 mg DAILY PO 10/18/17 09:00 11/17/17 08:59 10/19/17 09:05 40 MG Metoprolol Tartrate (Lopressor Tab) 100 mg BID PO 10/17/17 21:00 11/16/17 20:59 10/19/17 09:04 100 MG Calcium Acetate (Phoslo Cap) 1,334 mg TIDM PO 10/17/17 18:00 11/16/17 17:59 10/19/17 09:05 1,334 MG Ampicillin Sodium/ Sulbactam Sodium (Consult) 1 ea UD PRN N/A 10/17/17 17:30 11/16/17 17:29 Heparin Sodium (Porcine) (Heparin Sq 5000 Unit/0.5ml) 5,000 unit Q12 SQ 10/17/17 21:00 11/16/17 20:59 Hydralazine HCl (HydrALAZINE INJ) 20 mg Q6H PRN IV. 10/18/17 16:00 11/16/17 21:29 Impression (1) End-stage renal disease on hemodialysis (2) Anemia (3) R great toe gangrene s/p amputation (4) Osteomyelitis (5) Obesity (6) Diabetes (7) Hypertension Mr. Quinonez was admitted to the hospital with evidence of persistent infection of the right foot with osteomyelitis. He is being treated medically at this time. He has deferred surgery. The patient has ESRD requiring TTS HD. Recommendations END STAGE RENAL DISEASE: -- HD TTS -- Blood pressure and volume status currently appropriate -- Protect L wrist AVF -- Renal diet -- Medications appropriate for renal function HYPERTENSION: -- BP acceptable -- Continue home bp regimen of Metoprolol, Furosemide and Lisinopril ANEMIA: -- EPO provided w/ HD CKD-BMD: -- Continue Phos-lo w/ meals ID: -- Cultures pending
--- NOTE | 2017-10-19 13:06 | Pharmacy Progress Note ---
Pharmacy Antibiotic Prog Note Date of Service Oct 19, 2017. Subjective The patient is currently receiving VANCOMYCIN IV empirically based on level. The patient is currently on day # 3 of VANCOMYCIN / UNASYN IV therapy. Objective Height (Feet): 6 Height (Inches): 0.00 Weight (Kilograms): 182.000 Levels: Item Value Date Time Random Vancomycin Level 24.9 mcg/ml 10/19/17 0534 Lab Results (24hrs): Test 10/18/17 20:31 10/19/17 05:34 10/19/17 08:09 Bedside Glucose 160 mg/dl (70-99) 135 mg/dl (70-99) White Blood Count 10.73 K/uL (4.8-10.8) Red Blood Count 3.23 M/uL (4.7-6.1) Hemoglobin 10.3 g/dL (14.0-18.0) Hematocrit 31.0 % (42-52) Mean Corpuscular Volume 96.0 fL (80-100) Mean Corpuscular Hemoglobin 31.9 pg (25-34) Mean Corpuscular Hemoglobin Concent 33.2 g/dl (32-36) Platelet Count 261 K/uL (130-400) Mean Platelet Volume 10.2 fL (7.4-10.4) Neutrophils (%) (Auto) 70.8 % Lymphocytes (%) (Auto) 21.0 % Monocytes (%) (Auto) 5.0 % Eosinophils (%) (Auto) 2.4 % Basophils (%) (Auto) 0.4 % Neutrophils # (Auto) 7.60 K/uL (1.4-6.5) Lymphocytes # (Auto) 2.25 K/uL (1.2-3.4) Monocytes # (Auto) 0.54 K/uL (0.11-0.59) Eosinophils # (Auto) 0.26 K/uL (0-0.5) Basophils # (Auto) 0.04 K/uL (0-0.2) RDW Standard Deviation 58.1 fL (36.4-46.3) RDW Coefficient of Variation 16.6 % (11.5-14.5) Immature Granulocyte % (Auto) 0.4 % Immature Granulocyte # (Auto) 0.04 K/uL (0.00-0.02) Sodium Level 131 mmol/L (136-145) Potassium Level 4.7 mmol/L (3.5-5.1) Chloride Level 95 mmol/L (98-107) Carbon Dioxide Level 29 mmol/L (21-32) Anion Gap 7.0 mmol/L (3-11) Blood Urea Nitrogen 32 mg/dl (7-18) Creatinine 5.83 mg/dl (0.60-1.40) Est Creatinine Clear Calc Drug Dose 24.2 ml/min Estimated GFR () 11.6 Estimated GFR (Non- 10.0 BUN/Creatinine Ratio 5.5 (10-20) Random Glucose 124 mg/dl (70-99) Calcium Level 8.8 mg/dl (8.5-10.1) Phosphorus Level 3.3 mg/dl (2.5-4.9) Magnesium Level 2.1 mg/dl (1.8-2.4) Random Vancomycin Level 24.9 mcg/ml Micro Results: * See EMR Recent Pertinent Medications Item Ampicillin Sodium/ 108 ml @ 200 mls/hr 10/18/17 1600 Sulbactam Sodium DAILY@1600/IV 10/18/172054 3000 mg/Sodium Chloride Assessment & Plan 57yo male with ESRD on outpatient HD /. Had HD yesterday. VANCOMYCIN: * Vanco trough level yesterday PRE-HD was 24.6 mcg/mL. * Received VANCOMYCIN 500mg IV yesterday POST-HD. * Trough level drawn with am labs today = 24.9 mcg/mL. * This drug level is slightly Supratherapeutic. * Goal random level: between 15 - 20 mcg/mL. * Next HD will likely be on Friday (10/21). * Will hold VANCOMYCIN for now, recheck a random level with am labs, and redose when random level is within the goal range. Pharmacy will continue to follow and will adjust dose/frequency as necessary. Thank you
[2017-10-19 14:55] VITALS: BP 145/77; PULSE 67; TEMP 36.5; O2SAT 98
[2017-10-19 15:45] VITALS: O2SAT 98
[2017-10-19] MEDS: AMPICILLIN/SULBACTAM SOD INJ 3,000 MG in SODIUM CHLORIDE 0.9% 100ML 100 ML IV SCH (16:41)
--- NOTE | 2017-10-19 17:09 | Progress Note ---
Subjective Date of Service: Oct 19, 2017. Subjective Pt evaluation today including: conversation w/ patient, physical exam, chart review, lab review, review of studies, conversation w/ inside solar sales consultant, review of inpatient medication list Sitting in chair, playing on computer, no complaint, eating voiding good, denies fever Problem List Medical Problems: (1) CHF exacerbation Status: Acute Review of Systems Constitutional: No fever, No chills, No sweats, No weight loss, No weakness, No fatigue, No problem reported Eyes: No worsening of vision, No eye pain, No redness, No discharge, No diplopia ENT: No hearing loss, No unusual epistaxis, No nasal symptoms, No sore throat, No tinnitus, No dental problems, No trouble swallowing Respiratory: No cough, No sputum, No wheezing, No shortness of breath, No dyspnea on exertion, No dyspnea at rest, No hemoptysis Cardiac: No chest pain, No orthopnea, No PND, No edema, No claudication, No palpitations Abdomen: No pain, No nausea, No vomiting, No diarrhea, No constipation Musculoskeletal: No joint pain, No muscle pain, No swelling, No calf pain Male : No dysuria, No urinary frequency, No incontinence, No nocturia more than once/night, No slowing stream, No hematuria Neurologic: No memory loss, No paralysis, No weakness, No numbness/tingling, No vertigo, No balance problems Psychiatric: No depression symptoms, No anhedonism, No anxiety, No insomnia, No substance abuse Heme: No abnormal bleeding/bruising, No clotting problems, No swollen lymph nodes, No night sweats Endo: No fatigue, No excessive thirst, No excessive urination Skin: + problem reported (Skin wounds in dressing), No rash, No itch, No new/ changing skin lesions, No color change, No bleeding Objective Vital Signs Date Time Temp Pulse Resp B/P (MAP) Pulse Ox O2 Delivery O2 Flow Rate FiO2 10/19/17 14:55 36.5 67 16 145/77 (99) 98 Room Air 10/19/17 07:45 Room Air 10/19/17 07:22 36.8 81 18 142/76 (98) 100 Room Air 10/18/17 23:15 36.5 81 18 113/70 (84) 100 Room Air 10/18/17 20:00 Room Air 3/31/18 19:34 37.0 73 150/78 (102) 10/18/17 18:45 64 144/67 10/18/17 18:30 67 127/52 10/18/17 18:15 64 127/64 10/18/17 18:00 64 116/88 10/18/17 17:45 70 133/60 10/18/17 17:30 73 132/65 10/18/17 17:15 71 106/62 Physical Exam General Appearance: WD/WN, no apparent distress, + obese Eyes: normal inspection, PERRL, EOMI, sclerae normal ENT: normal ENT inspection, hearing grossly normal, pharynx normal Neck: supple, no adenopathy, thyroid normal, no JVD, no carotid bruits, trachea midline Respiratory/Chest: chest non-tender, normal breath sounds, no respiratory distress, no accessory muscle use, + decreased breath sounds Cardiovascular: regular rate, rhythm, no edema, no gallop, no JVD, no murmur Abdomen: normal bowel sounds, non tender, soft, no organomegaly, no pulsatile mass Extremities: non-tender, normal inspection, no pedal edema, no calf tenderness , pelvis stable Neurologic/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 tested, no motor/sensory deficits, alert, normal mood/affect, oriented x 3 Skin: warm/dry, no rash Lymphatic: no adenopathy Laboratory Results Last 24 Hours Test 10/18/17 20:31 10/19/17 05:34 10/19/17 08:09 10/19/17 12:31 Bedside Glucose 160 mg/dl 135 mg/dl 169 mg/dl White Blood Count 10.73 K/uL Red Blood Count 3.23 M/uL Hemoglobin 10.3 g/dL Hematocrit 31.0 % Mean Corpuscular Volume 96.0 fL Mean Corpuscular Hemoglobin 31.9 pg Mean Corpuscular Hemoglobin Concent 33.2 g/dl Platelet Count 261 K/uL Mean Platelet Volume 10.2 fL Neutrophils (%) (Auto) 70.8 % Lymphocytes (%) (Auto) 21.0 % Monocytes (%) (Auto) 5.0 % Eosinophils (%) (Auto) 2.4 % Basophils (%) (Auto) 0.4 % Neutrophils # (Auto) 7.60 K/uL Lymphocytes # (Auto) 2.25 K/uL Monocytes # (Auto) 0.54 K/uL Eosinophils # (Auto) 0.26 K/uL Basophils # (Auto) 0.04 K/uL RDW Standard Deviation 58.1 fL RDW Coefficient of Variation 16.6 % Immature Granulocyte % (Auto) 0.4 % Immature Granulocyte # (Auto) 0.04 K/uL Sodium Level 131 mmol/L Potassium Level 4.7 mmol/L Chloride Level 95 mmol/L Carbon Dioxide Level 29 mmol/L Anion Gap 7.0 mmol/L Blood Urea Nitrogen 32 mg/dl Creatinine 5.83 mg/dl Est Creatinine Clear Calc Drug Dose 24.2 ml/min Estimated GFR () 11.6 Estimated GFR (Non- 10.0 BUN/Creatinine Ratio 5.5 Random Glucose 124 mg/dl Calcium Level 8.8 mg/dl Phosphorus Level 3.3 mg/dl Magnesium Level 2.1 mg/dl Random Vancomycin Level 24.9 mcg/ml Test 10/19/17 16:47 Bedside Glucose 152 mg/dl Assessment and Plan 57 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 per report he was was referred by his presales consultant, Dr. Le in [place]. Right foot open wound and cellulitis, associated with osteomyelitis in the head of the second metatarsal and the base of the second proximal phalanx. Possible mild sepsis upon admission with an elevated lactase MRI of the foot reported below: 1. Motion-compromised examination. 2. Findings are consistent with osteomyelitis involving the head of the second metatarsal and the base of the second proximal phalanx. 3. No additional similar-appearing marrow changes are identified throughout the remainder of the forefoot noting status post amputation of the first toe. 4. There is evidence of cellulitis involving the medial aspect of the forefoot. 5. A cutaneous ulceration is suggested overlying the dorsomedial aspect of the foot. Nonspecific fluid is identified around the second metatarsophalangeal joint as well as deep to the ulceration. Small abscesses are not excluded. Clinical correlation will be required. Possible accelerated hypertension with history of HTN, Continue current medications and hydralazine as needed PAD, chronic diastolic CHF, anemia of chronic disease, deconditioning stable will continue current medication DM II, the new home medication plus insulin sliding scale check HbA1c 7.5 ESRD on HD, nephrology on the case will continue follow-up As above, appreciated ID consult and nephrology consults Ortho talked to pt again, discussed treatment options once again, include below knee amputation, will discussed infectious disease for the options of antibiotic to home after sensitivity comes back GI DVT prophylaxis is covered, Continued [facility] stay due to: multiple IV medications needed Discharge planning: home
[2017-10-19 20:50] VITALS: BP 134/81; PULSE 68
[2017-10-19 23:05] VITALS: BP 159/79; PULSE 70; TEMP 36.7; O2SAT 99
[2017-10-20 07:24] LABS: HEMATOCRIT 33.8 % (42-52); MEAN CORPUSCULAR HEMOGLOBIN 31.3 pg (25-34); MEAN CORPUSCULAR HGB CONC 32.5 g/dl (32-36); MEAN PLATELET VOLUME 10.1 fL (7.4-10.4); PLATELET COUNT 296 K/uL (130-400); RED CELL DISTRIBUTION WIDTH CV 16.6 % (11.5-14.5); RED CELL DISTRIBUTION WIDTH SD 57.4 fL (36.4-46.3); WHITE BLOOD COUNT 8.88 K/uL (4.8-10.8)
[2017-10-20 07:30] VITALS: BP 169/82; PULSE 68; TEMP 36.7; O2SAT 96
--- NOTE | 2017-10-20 07:40 | Nephrology Progress Note ---
Nephrology Progress Note Date of Service Oct 20, 2017. Chief Complaint ESRD Subjective No acute events overnight. Michael feels well this morning. No fevers or chills. He denies pain. He plans on going home today. Michael notes that he is able to ambulate without significant difficultly. He reiterated that he is not interested in a surgical option. Michael is breathing comfortably. He feels that his volume status is appropriate. Review of Systems A complete review of systems was performed. Pertinent positives are noted above. All other systems are negative. Vital Signs Last 8 Hrs Date Time Temp Pulse Resp B/P (MAP) Pulse Ox O2 Delivery O2 Flow Rate FiO2 10/20/17 07:30 36.7 68 19 169/82 (111) 96 Room Air 10/19/17 23:54 Room Air Last Recorded Weight Weight (Kilograms): 182.000 Physical Exam General Appearance: no apparent distress, + obese Head: normocephalic, atraumatic Eyes: normal inspection, sclerae normal ENT: normal ENT inspection, pharynx normal Neck: supple, no JVD Respiratory/Chest: lungs clear, no respiratory distress, no accessory muscle use Cardiovascular: regular rate, rhythm, no gallop Abdomen/GI: non tender, soft Extremities/Musculoskelatal: normal inspection, + pedal edema, + pertinent finding (AVF with thrill and bruit) Neurologic/Psych: alert, normal mood/affect Family History Cancer Diabetes mellitus Heart disease Hypertension Kidney disease Kidney stones Lung disease Social History Smokeless Tobacco Use: No Alcohol Use: none Drug Use: none Marital Status: single Housing Status: lives alone 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) Laboratory Results Past 24 Hours 10/20/17 07:00 Test 10/19/17 08:09 10/19/17 12:31 10/19/17 16:47 10/19/17 20:29 Bedside Glucose 135 mg/dl (70-99) 169 mg/dl (70-99) 152 mg/dl (70-99) 167 mg/dl (70-99) Test 10/20/17 07:00 Red Blood Count 3.52 M/uL (4.7-6.1) Mean Corpuscular Volume 96.0 fL (80-100) Mean Corpuscular Hemoglobin 31.3 pg (25-34) Mean Corpuscular Hemoglobin Concent 32.5 g/dl (32-36) RDW Standard Deviation 57.4 fL (36.4-46.3) RDW Coefficient of Variation 16.6 % (11.5-14.5) Mean Platelet Volume 10.1 fL (7.4-10.4) Allergies Coded Allergies: No Known Allergies (Unverified , 10/17/17) Medications Current Inpatient Medications Medications (Trade) Dose Ordered Sig/Chavez Route Start Time Stop Time Status Last Admin Dose Admin Acetaminophen (Tylenol Tab) 650 mg Q4H PRN PO 10/17/17 16:45 11/16/17 16:44 Al Hydrox/Mg Hydrox/Simethicone (Maalox Max Susp) 15 ml Q4H PRN PO 10/17/17 16:45 11/16/17 16:44 Magnesium Hydroxide (Milk Of Magnesia Susp) 30 ml Q6H PRN PO 10/17/17 16:45 11/16/17 16:44 Polyethylene (Miralax Powder Packet) 17 gm DAILY PRN PO 10/17/17 16:45 11/16/17 16:44 Ondansetron HCl (Zofran Inj) 4 mg Q6H PRN IV 10/17/17 16:45 11/16/17 16:44 Glucose (Glucose 40% Gel) 15-30 GRAMS 15 GRAMS... UD PRN PO 10/17/17 16:45 11/16/17 16:44 Glucose (Glucose Chew Tab) 4-8 Tablets 4 Tabl... UD PRN PO 10/17/17 16:45 11/16/17 16:44 Dextrose (Dextrose 50% 50ML Syringe) 25-50ML OF 50% DW IV FOR... UD PRN IV 10/17/17 16:45 11/16/17 16:44 Glucagon (Glucagon Inj) 1 mg UD PRN SQ 10/17/17 16:45 11/16/17 16:44 Ampicillin Sodium/ Sulbactam Sodium 3000 mg/Sodium Chloride 108 ml @ 200 mls/hr DAILY@1600 IV 10/18/17 16:00 11/27/17 16:33 10/19/17 16:41 200 MLS/HR Miscellaneous Information (Consult) 1 ea UD PRN N/A 10/17/17 17:00 11/16/17 16:59 Insulin Aspart (novoLOG ASPART) SLIDING SCALE G... ACHS SC 10/17/17 18:00 11/16/17 17:59 10/19/17 18:13 2 UNITS Amlodipine Besylate (Norvasc Tab) 10 mg DAILY PO 10/18/17 09:00 11/17/17 08:59 10/19/17 09:05 10 MG Clopidogrel Bisulfate (plAVix TAB) 75 mg DAILY PO 10/18/17 09:00 11/17/17 08:59 10/19/17 09:05 75 MG Furosemide (Lasix Tab) 80 mg BID17 PO 10/17/17 17:00 11/16/17 16:59 10/19/17 09:03 80 MG Lisinopril (Zestril Tab) 40 mg DAILY PO 10/18/17 09:00 11/17/17 08:59 10/19/17 09:05 40 MG Metoprolol Tartrate (Lopressor Tab) 100 mg BID PO 10/17/17 21:00 11/16/17 20:59 10/19/17 20:59 100 MG Calcium Acetate (Phoslo Cap) 1,334 mg TIDM PO 10/17/17 18:00 11/16/17 17:59 10/19/17 18:08 1,334 MG Ampicillin Sodium/ Sulbactam Sodium (Consult) 1 ea UD PRN N/A 10/17/17 17:30 11/16/17 17:29 Heparin Sodium (Porcine) (Heparin Sq 5000 Unit/0.5ml) 5,000 unit Q12 SQ 10/17/17 21:00 11/16/17 20:59 Hydralazine HCl (HydrALAZINE INJ) 20 mg Q6H PRN IV. 10/18/17 16:00 11/16/17 21:29 Impression (1) End-stage renal disease on hemodialysis (2) Anemia (3) R great toe gangrene s/p amputation (4) Osteomyelitis (5) Obesity (6) Diabetes (7) Hypertension Mr. Quinonez was admitted to the hospital with evidence of persistent infection of the right foot with osteomyelitis. He is being treated medically at this time. He has deferred surgery. The patient has ESRD requiring TTS HD. Recommendations END STAGE RENAL DISEASE: -- HD TTS -- Blood pressure and volume status currently appropriate -- Protect L wrist AVF -- Renal diet -- Medications appropriate for renal function HYPERTENSION: -- BP acceptable -- Continue home bp regimen of Metoprolol, Furosemide and Lisinopril ANEMIA: -- EPO provided w/ HD CKD-BMD: -- Continue Phos-lo w/ meals ID: -- Wound culture +MSSA
[2017-10-20 08:18] LABS: CALCIUM 9.4 mg/dl (8.5-10.1); CREATININE 8.07 mg/dl (0.60-1.40); POTASSIUM 4.8 mmol/L (3.5-5.1)
[2017-10-20] MEDS: CALCIUM ACETATE 667MG GELCAP PO SCH ×2 (08:52→12:36)
[2017-10-20] MEDS: FUROSEMIDE 80 MG TAB PO SCH (08:52)
[2017-10-20] MEDS: CLOPIDOGREL BISULFATE 75 MG TAB PO SCH (08:53)
[2017-10-20] MEDS: AMLODIPINE BESYLATE 5 MG TAB PO SCH (08:53)
[2017-10-20] MEDS: METOPROLOL TARTRATE 100 MG TAB PO SCH (08:53)
[2017-10-20] MEDS: LISINOPRIL 40 MG TAB PO SCH (08:53)
[2017-10-20] MEDS: HEPARIN SOD 5000 UNIT/0.5 ML CARP SQ SCH (08:54)
[2017-10-20] MEDS: INSULIN ASPART 100 UNITS/ML 3 ML PEN SC SCH ×2 (09:00→12:41)
--- NOTE | 2017-10-20 09:35 | PROGRESS NOTE ---
DATE: 10/20/2017 SUBJECTIVE: The patient was seen at bedside. Denies any pain. He has multiple questions regarding postop recovery and need for surgeries. Eating and voiding well. Currently ambulating barefoot. OBJECTIVE: VITAL SIGNS: Afebrile 36.7. EXTREMITIES: Lower extremity exam palpable popliteal pulse on the right. Good bleeding noted at the amputation site of the right hallux. Absence of digital hair. Pedal pulses nonpalpable bilaterally. Overall improved swelling noted to the forefoot on the right. DERMATOLOGIC: There is a draining ulcer 2.3 x 1.9 over the amputation site of the right hallux. No malodor is present. There is bleeding and hypertrophic granulation tissue. The wound is tracking towards the second metatarsal head. NEUROLOGIC: Epicritic sensation grossly absent. MUSCULOSKELETAL: Amputation of the hallux. LABORATORY DATA: WBC is 8.88. Band cells are still noted to be increased. MRI on 10/18/2017, right foot consistent with osteomyelitis of second metatarsal head and the base of the second proximal phalanx. No fluid is identified around the second MTPJ, though small abscess is not excluded per the radiologist. Micro wound culture shows Staph aureus resistant to clindamycin, erythromycin and tetracycline. IMPRESSION: 1. Cellulitis, right foot. 2. Osteomyelitis, right second metatarsophalangeal joint. 3. History of gas gangrene, right hallux with amputation and nonhealing wound of the amputation site. 4. History of revascularization April 2017. TREATMENT: 1. Continue empiric antibiotics, being followed by ID, currently on Unasyn. 2. Long discussion at bedside regarding treatment options consisting of removal of infected bone with I&D of the right foot versus transmetatarsal amputation with tendo Achilles lengthening versus a BK amputation. From a vascular standpoint, there was good bleeding noted at the wound site with recent revascularization transmetatarsal amputation with tendo Achilles lengthening the patient's best option as this would allow easier ambulation specifically related to his weight. This was discussed at length at bedside. We discussed transmetatarsal amputation versus going in and just removing the bone. We discussed the peripheral neuropathy. This is the underlying cause for feeling no pain and discussed the emergent nature of removing the infected bone. At this time, patient is refusing all surgical intervention. All questions were answered at bedside.
[2017-10-20 10:11] VITALS: O2SAT 95
--- NOTE | 2017-10-20 12:47 | Discharge Instructions ---
Discharge Instructions Date of Service Oct 20, 2017. Admission Reason for Admission: Osteomyelitis Discharge Discharge Diagnosis / Problem: Osteomyelitis (Bone Infection) Discharge Goals Goal(s): Decrease discomfort, Improve function, Increase independence Activity Recommendations Activity Limitations: resume your previous activity . Instructions / Follow-Up Instructions / Follow-Up Right Foot and Bone Infection: - Plan is to give a loading dose of Bactrim in the hospital today. You will then take daily Bactrim at night every day. Make sure you take this in the evenings so that it is dosed after dialysis. You may be on this medication a very long time - Recommend to follow up with your air brake tester and continue to discuss possibility of amputation of toes. PLEASE RETURN TO THE HOSPITAL IF YOU FEEL WEAK, RUNNING FEVER, LEG LOOKS WORSE WHETHER IT IS MORE RED OR GETTING MORE DRAINAGE, OR IF YOU ARE GENERALLY FEELING ILL. IF YOUR LEG GETS WORSE YOU MAY NEED A SURGICAL INTERVENTION Would recommend to keep a close eye on your foot for any changes and to get it evaluated. Continue to see the wound clinic and we will assist with a follow-up appointment with infectious disease - Dr. Almonte Diabetes: - Your A1c is 7.5 which we would like to see this around 6.5. - Would recommend discussing the possibility of going on medication to help your sugars. - Given feet infections, bacteria feeds of glucose (sugar) and will put you at risk for continued infection, poor wound healing, and other organ issues - Given your dialysis you may benefit from insulin therapy at least initially. Would recommend to follow a low carbohydrate diet to help control your sugars. If you drink sugary drinks try to use diet drinks. Recommend to find ways to even lose weight as even a 5-10 lb difference can make a drastic change in sugars. Please, follow up at [facility] [place] Office ( beside [employer]) with Magaly Good PA-C on FridayOctober 24 at 8:30 am. *If you need to change this appointment, call the office at [phone]. Please, follow up with [facility]'s Infectious Disease Specialist, Dr. Almonte, on October 29 at 1:15 pm. *This office is located in [address] of [facility] - big building next to this hospital. If you need to change this appointment, call the office at [phone]." Current Hospital Diet Patient's current hospital diet: Diabetes Type 2 Diet, AHA Diet (Heart Healthy) Discharge Diet Recommended Diet: AHA Diet (Heart Healthy), Diabetes Type 2 Diet Pending Studies Studies pending at discharge: no Laboratory Results Hemoglobin A1c Test 10/17/17 14:50 Range/Units Estimated Average Glucose 169 mg/dl Hemoglobin A1c 7.5 H 4.5-5.6 % Medical Emergencies . Who to Call and When: Medical Emergencies: If at any time you feel your situation is an emergency, please call 911 immediately. . Non-Emergent Contact Non-Emergency issues call your: Primary Care Provider Call Non-Emergent contact if: you have a fever, your pain is concerning you, you have any medication questions . . "Provider Documentation" section prepared by Elizabet Machado. .
[2017-10-20] MEDS ORDERED: SPT/ PO (12:52)
[2017-10-20] MEDS ORDERED: SULFAMETHOXAZOLE/TRIMETHOPRIM DS 800/160MG TAB PO ONE (13:00)
[2017-10-20 14:06] VITALS: BP 169/82; PULSE 68; TEMP 36.7; O2SAT 95
[2017-10-20 15:00] VITALS: BP 158/77; PULSE 69; TEMP 36.5; O2SAT 95
--- NOTE | 2017-10-20 16:16 | Discharge Summary ---
Discharge Summary Date of Service Oct 20, 2017. Discharge Summary Admission Date: Oct 17, 2017 at 16:57 Discharge Date: Oct 20, 2017 Discharge Disposition: Home Principal Diagnosis: Cellulitis with Diabetic Wound and Osteomyelitis Problems/Secondary Diagnoses: 1. HTN 2. Peripheral Artery Disease 3. R Big Toe Gangrene S/P Amputation 4. Chronic Diastolic CHF 5. T2DM (Not on medication) 6. ESRD on HD - TTS 7. Anemia of Chronic Disease 8. Morbid Obesity Procedures: MRI OF THE RIGHT FOREFOOT WITHOUT IV CONTRAST FINDINGS: There are postoperative changes from resection of the first toe at the level of the proximal shaft of the first metatarsal. No destructive change is suggested at the resection margin. There is destructive change/erosion seen involving the second metatarsal head as well as the base of the second proximal phalanx, with drop in T1 signal and marrow edema seen on the T2-weighted sequences. The appearance is typical for osteomyelitis. No similar-appearing marrow changes are identified throughout the remaining visualized osseous structures. There is chronic-appearing deformity of the third metatarsal head. Mild arthritic change is seen involving the intertarsal and tarsometatarsal joints. Significant subcutaneous soft tissue edema is noted in the medial aspect of the forefoot consistent with cellulitis. Subcutaneous fluid is present around the second metatarsophalangeal joint. A cutaneous ulceration is suggested along the dorsomedial aspect of the forefoot, best seen on axial STIR image number 14. There is evidence of myositis involving the regional musculature. The visualized plantar fascia is normal in appearance. IMPRESSION: 1. Motion-compromised examination. 2. Findings are consistent with osteomyelitis involving the head of the second metatarsal and the base of the second proximal phalanx. 3. No additional similar-appearing marrow changes are identified throughout the remainder of the forefoot noting status post amputation of the first toe. 4. There is evidence of cellulitis involving the medial aspect of the forefoot. 5. A cutaneous ulceration is suggested overlying the dorsomedial aspect of the foot. Nonspecific fluid is identified around the second metatarsophalangeal joint as well as deep to the ulceration. Small abscesses are not excluded. Clinical correlation will be required. Consultations: 1. Orthopedics 2. Infectious Disease 3. Podiatry Medication Reconciliation New Medications: Trimethoprim/Sulfamethoxazole (Bactrim 400MG/80MG) 1 Ea Tab 1 TAB PO QPM for 30 Days, #30 TAB Start tomorrow in 4/3 Continued Medications: Amlodipine (Norvasc) 10 Mg Tab 10 MG PO DAILY, TAB Calcium Acetate (Calcium Acetate) 668 Mg Tab 2 TAB PO TID Clopidogrel Bisulfate (Plavix) 75 Mg Tab 75 MG PO DAILY, TAB Furosemide (Lasix) 40 Mg Tab 80 MG PO BID, TAB Lisinopril (Zestril) 40 Mg Tab 40 MG PO DAILY, TAB Metoprolol Tartrate (Lopressor) (Lopressor) 100 Mg Tab 100 MG PO BID, TAB Discharge Exam Review of Systems: Constitutional: No fever, No chills ENT: No nasal symptoms, No sore throat Respiratory: No cough, No shortness of breath Cardiovascular: No chest pain Abdomen: No pain, No nausea, No vomiting, No diarrhea, No constipation Musculoskeletal: No joint pain, No calf pain Genitourinary - Male: No dysuria Neurologic: + numbness/tingling (chronic b/l feet) Hematologic / Lymphatic: No abnormal bleeding/bruising Physical Exam: General Appearance: no apparent distress, + obese (morbid) Eyes: sclerae normal ENT: hearing grossly normal Neck: supple, no JVD, trachea midline Respiratory/Chest: lungs clear, normal breath sounds, no respiratory distress, no accessory muscle use Cardiovascular: regular rate, rhythm, no gallop, no murmur Abdomen / GI: normal bowel sounds, non tender, soft Extremities: no calf tenderness, + pertinent finding (did not want his sock removed; some mild swelling in the RLE in comparison to LLE) Neurologic/Psychiatric: alert, oriented x 3 Skin: normal color (other than on R foot however did not want it examined) Hospital Course ADMISSION: This is a 57 y/o male with a history of HTN, PAD, chronic diastolic CHF, DM II, ESRD on HD, anemia of chronic disease, h/o gas gangrene R big toe s/ p amputation who presented to the ED on 10/17 with right foot infection. The patient was referred by his telecommunications support, Dr. Le in [place]. The patient has a history of gas gangrene in his right big toe, which was amputated. His telecommunications support is now concerned of infection/osteomyelitis in his remaining toes. A wound culture was obtained by the telecommunications support, who recommends Unasyn and vancomycin. The patient denies any complaints at this time. He has not had feeling in his feet for quite some time due to diabetic neuropathy. The patient denies fevers, chills, sweats, chest pain, palpitations, claudication, cough, wheezing, shortness of breath, nausea, vomiting, abdominal pain, dysuria, hematuria, urinary retention, paralysis, weakness. HOSPITAL COURSE: H/O R Big Toe Gas Gangrene S/P Amputation now with Diabetic Ulcer/Cellulitis and Osteomyelitis of 2nd Metatarsal and 2nd Prox. Phalanx - Initially placed on Unasyn and Vancomycin and has remained afebrile and without leukocytosis; BCx negative - Wound Cx growing MSSA and after D/C a Strep organism populated and will watch for sensitivities - Podiatry and Orthopedics followed - ultimate recommendation is for amputation which multiple providers have discussed and patient opted for no surgical intervention at this time and would like to continue conservative measures - Prior to discharge I did discuss this with him and he is considering the toe/ bone removal but is not planning on a BKA as proposed by orthopedics - however given his DM, PAD, neuropathy and H/O gangrene he would be at risk for worsening of this infection leading to possible septicemia and patient is fully aware - He will need to maintain establishment with wound care which he has an appointment tomorrow 10/21 and his telecommunications support - Patient did not want a PICC line placed. Did opt for suppressive antibiotics with Bactrim. Discussed with pharmacy given that this medication is highly dialyzed given his HD -- Gave loading dose of Bactrim DS on 10/20 and he will continue on Bactrim SS 1 tablet daily after dialysis and this may be continued for fdc as a suppressive measure and will follow-up with ID for further adjustments as necessary - Gave written recommendations of reasons to report back to the hospital as he is at extremely high risk for readmission and significant worsening of his wound /osteomyelitis T2DM: - Patient reports that he is diet controlled and on previous admissions he had a better A1c however it is now 7.5 - Patient has been reluctant to have outpatient A1c checks and may even need insulin therapy initiated given his ESRD - Unsure how compliant he would be with this. Will definitely need glucose control given infection risk and for wound healing teresa given he has PAD and neuropathy - Encourage diet and weight loss to assist with managing this is he continues to be resistant to medicinal management. However reports that he does eat what he wants and even brought a supply of extra food into the hospital because he didn't have enough with meals Disposition: - F/U with wound care, telecommunications support, infectious disease, and PCP. Continue HD as previously scheduled - Recommend diabetes control. May benefit from at least once daily Lantus if he would be open to this. He has a tendency for non-compliance and resistance to the recommended treatment plans -- This would allow for some added control and simplicity to promote compliance Total Time Spent: Greater than 30 minutes This includes examination of the patient, discharge planning, medication reconciliation, and communication with other providers. Discharge Instructions Please refer to the electronic Patient Visit Report (Discharge Instructions) for additional information. Additional Copies To Magaly Good .NIGEL; Ashley Villagran, DO
[2017-10-21] MEDS ORDERED: SULFAMETHOXAZOLE/TRIMETHOPRIM 400/80MG TAB PO SCH (21:00)
== END 2017-10-20 17:12 | disposition home or self-care (01) | DRG 564 ==
LOC: C.EDB 14:00 → C.MSW 16:57 → EDBEDREQ 17:11 → ENRESERV 17:19
PROVIDERS: ADMIT Internal Medicine; ATTEND Hospitalist
DX: T87.43 Infection of amputation stump, right lower extremity (principal); N18.6 End stage renal disease; T81.4XXA Infection following a procedure, initial encounter; M86.9 Osteomyelitis, unspecified; I50.32 Chronic diastolic (congestive) heart failure; Z68.43 Body mass index [BMI] 50.0-59.9, adult; L03.115 Cellulitis of right lower limb; N25.81 Secondary hyperparathyroidism of renal origin; I13.2 Hypertensive heart and chronic kidney disease with heart failure and with stage 5 chronic kidney disease, or end stage renal disease; Y83.5 Amputation of limb(s) as the cause of abnormal reaction of the patient, or of later complication, without mention of misadventure at the time of the procedure; E11.69 Type 2 diabetes mellitus with other specified complication; B95.61 Methicillin susceptible Staphylococcus aureus infection as the cause of diseases classified elsewhere; B95.5 Unspecified streptococcus as the cause of diseases classified elsewhere; E11.621 Type 2 diabetes mellitus with foot ulcer; L97.519 Non-pressure chronic ulcer of other part of right foot with unspecified severity; L03.031 Cellulitis of right toe; E11.22 Type 2 diabetes mellitus with diabetic chronic kidney disease; E11.21 Type 2 diabetes mellitus with diabetic nephropathy; E11.65 Type 2 diabetes mellitus with hyperglycemia; E11.42 Type 2 diabetes mellitus with diabetic polyneuropathy; E11.51 Type 2 diabetes mellitus with diabetic peripheral angiopathy without gangrene; N25.0 Renal osteodystrophy; D63.8 Anemia in other chronic diseases classified elsewhere; R53.81 Other malaise; E66.01 Morbid (severe) obesity due to excess calories; Z91.19 Patient's noncompliance with other medical treatment and regimen; Z91.11 Patient's noncompliance with dietary regimen; Z99.2 Dependence on renal dialysis; Z89.411 Acquired absence of right great toe; Z79.02 Long term (current) use of antithrombotics/antiplatelets; Z79.899 Other long term (current) drug therapy

== ENCOUNTER → 2017-11-14 | Day surgery (SDC) | payer SELFPAY ==
[~2017-11-14] VITALS: Ht 182.9 cm; Wt 178.0 kg
[~2017-11-14] MED LIST changes: +AMLO-114 PO; +CALC1TAB54 PO; -CALC667C4 PO; +CEFAZOLIN 1000MG IV PUSH 7.5 ML IV SCH; +CEFAZOLIN 3000MG IV PUSH 22.5 ML IV STA; -CLOP1TAB15 PO; +CLOP1TAB5 PO; +D5W AND 1/4NSS 1000 ML IV SCH; +FENTANYL CITRATE INJ 50 MCG/1 ML 2 ML VIAL IV ONE; +FENTANYL CITRATE INJ 50 MCG/1 ML 2 ML VIAL ONE; +FRS/40 PO; +LIDOCAINE HCL 1% 20 ML VIAL INJ ONE; -LSX20 PO; +METO100T14 PO; -METO50TA8 PO; +MIDAZOLAM HCL 1 MG/ML 2ML VIAL IV ONE; +MIDAZOLAM HCL 1 MG/ML 2ML VIAL ONE; +OPTIRAY 300 IV ONE; +SPT/ PO
--- NOTE | 2017-11-14 05:49 | History and Physical ---
History & Physical Date of Service Nov 14, 2017. History & Physical Malfunctioning fistula History of Present Illness The patient is a 56 year old male with hx of DMII, HTN, obesity, who has a left upper arm fistula which is not functioning well. He is here for fistulogram with possible intervention. Denies HERRERA, fever, chills, chest pain, SOB, abd pain , N/V, rest pain, claudication, other complaints. Allergies Coded Allergies: No Known Allergies Home Medications Meds on chart Problem List Medical Problems: (1) Anemia (2) Bilateral lower leg cellulitis (3) Hypertension (4) Metabolic acidosis (5) Nephrotic syndrome (6) Proteinuria (7) Secondary hyperparathyroidism of renal origin Surgical / Medical History Hx Cardiac Surgery: No Hx Abdominal Surgery: No Hx Cancer Surgery: No Hx Thoracic Surgery: No Hx Orthopedic: No Hx Urinary Tract Surgery: No HX Other Surgery: No Past Medical/Surgical History: Diabetes, Hypertension, Kidney Disease Family History Cancer Diabetes mellitus Heart disease Hypertension Kidney disease Kidney stones Lung disease Cancer Diabetes mellitus Heart disease Hypertension Kidney disease Kidney stones Lung disease Social History Smoking Status: Never Smoker Hx Tobacco Use In Past Year?: No Hx Alcohol Use - Type & Amnt: No Hx Substance Use -Type & Amnt: No Review of Systems Constitutional: + malaise, No chills, No fever Skin: + change in color Eyes: No visual changes ENMT: No sore throat Respiratory: + KOENIG, No cough, No hemoptysis, No orthopnea, No short of breath Cardiovascular: + edema, No chest pain, No palpitations, No syncope, No intermittent claudication Gastrointestinal: No abdominal pain, No nausea, No vomiting Neurologic: + weakness, No dizziness, No lethargy, No numbness, No tingling Physical Exam Constitutional: General Apperance: well-nourished, well-developed, obese (morbidly) Level of Distress: NAD, Psychiatric: Mental Status: active & alert, normal mood, normal affect Orientation: oriented except where noted, to time, to place, to person Memory: recent memory normal, remote memory normal Head: normocephalic, atraumatic Eyes: EOM: EOMI ENMT: normal ENT inspection, hearing grossly normal Neck: supple, trachea midline Lungs: Respiratory effort: no dyspnea, good air movement Auscultation: breath sounds normal, no wheezing Cardiovascular: Apical Impulse: not displaced Heart Auscultation: RRR, no rubs, no gallops Peripheral Pulses: Pulses: full and equal, in all extremities except if noted Bruits: none appreciated Carotid Pulse: normal on the left, normal on the right Brachial Pulses: normal on the left, normal on the right Radial Pulse: normal on the left, normal on the right Femoral Pulse: decreased on the left, decreased on the right Posterior Tibialis Pulse: pertinent finding (unable to palpate feet warm, brisk cap refill) Dorsalis Pedis Pulse: pertinent finding (unable to palpate , feet warm, brisk cap refill) Abdomen: Bowel Sounds: normal Inspection & Palpation: soft, no tenderness, guarding & rebound, Musculoskeletal: normal strength (5/5 throughout), normal tone Extremities: Upper Right: no cyanosis, no varicosities, no edema Upper Left: no cyanosis, no varicosities, no palpable cord, no edema, thrill felt in fistula Lower Right: no cyanosis, no varicosities, no palpable cord, no edema Lower Left: no cyanosis, no varicosities, no palpable cord, no edema Neurologic: Cranial Nerves: grossly intact Sensation: grossly intact Assessment and Plan ASSESSMENT and PLAN: Malfunctioning left arm fistula Plan: Patient admitted for a fistulogram with possible intervention. I have discussed the risks options and benefits of the procedure with the patient. The patient understands the risks options and benefits and agrees to the procedure.
[2017-11-14 06:47] VITALS: BP 180/81; PULSE 68; TEMP 36.6; O2SAT 95; Ht 182.9 cm; Wt 178.0 kg
--- NOTE | 2017-11-14 07:46 | Pre Sedation Assessment ---
Pre Sedation Assessment General Date of Sedation: Nov 14, 2017. Vital Signs Past 12 Hours Date Time Temp Pulse Resp B/P (MAP) Pulse Ox O2 Delivery O2 Flow Rate FiO2 11/14/17 06:47 36.6 68 20 180/81 (114) 95 Room Air Review Cardiovascular: regular rate, rhythm Lungs: lungs clear Pre-Sedation Airway Assessment Smoking Status: Never Smoker Hx of Sleep Apnea: No Short Thick Neck: Yes Thyro-mental Distance: > 3 Finger Breadths Oral Cavity: Chipped Teeth Mallampati Classification: Class II ASA Classification: Class III NPO Status Date of Last Intake of Fluids: Nov 13, 2017 Time of Last Intake of Fluids: 2099 Date of Last Intake of Solids: Nov 13, 2017 Time of Last Intake of Solids: 2099 Procedure Planning Contraindications for Sedation: None Current Medications Reviewed: Yes Notes The planned sedation has been discussed with the patient. Informed Consent was obtained. I have identified the patient, determined the appropriateness of sedation and have assessed the patient immediately prior to the procedure. All medicine(s) and interventions are by my order.
--- NOTE | 2017-11-14 08:56 | [facility] Post Operative Brief Note ---
Immediate Operative Summary Operative Date Nov 14, 2017. Pre-Operative Diagnosis malfunctioning fistula Post-Operative Diagnosis malfunctioning fistula Procedure(s) Performed Fistulogram, Percutaneous Transluminal Angioplasty Peripheral Venous, Embolization Of Side Branch Of Fistula, Moderate Concious Sedation [address] Solomon Ip Litigation Associate Surgeon(s) none Estimated Blood Loss 10 ml Findings Consistent with Post-Op Diagnosis Specimens none Drains None Anesthesia Type IV Sedat Cons RN Only Complication(s) none Disposition Accompanied Pt To Recover: no Disposition:
--- NOTE | 2017-11-14 09:06 | Post Sedation Assessment ---
Post Sedation Assessment General Date of Sedation Nov 14, 2017. Vital Signs: Vital Signs Past 12 Hours Date Time Temp Pulse Resp B/P (MAP) Pulse Ox O2 Delivery O2 Flow Rate FiO2 11/14/17 08:55 59 17 185/92 100 Oxymask 2 11/14/17 08:50 64 12 175/89 100 Oxymask 2 11/14/17 08:45 61 12 176/83 100 Oxymask 2 11/14/17 08:40 61 14 192/81 100 Oxymask 2 11/14/17 08:35 60 14 185/72 100 Oxymask 2 11/14/17 08:30 60 16 209/102 98 Oxymask 2 11/14/17 08:25 62 16 206/97 100 Oxymask 2 11/14/17 08:03 65 21 208/105 100 Oxymask 2 11/14/17 06:47 36.6 68 20 180/81 (114) 95 Room Air Post Procedure Recovery Score Activity: (2) Moves 4 extremities * Respiration: (2) Deep breath/cough Circulation: (2) +/-20% PreAnes Value Consciousness: (2) Fully Awake Oxygen Saturation: (1) O2 needed for >90% Post Anesthesia Score: 9 Discharge Sedation Level of Care: Fast Track Phase II Post Sedation Plan On clinical assessment, the patient appears to have tolerated the sedation without complications. Patient is recovering as anticipated. Patient will continue to be monitored by nursing and may be discharged when sedation discharge criteria are met per below protocol. Upon Completions of procedure and additional 15 minutes continue every 5 minute vital signs and the P.A.R. score; then discharge to a Phase I or Fast Track to Phase II per the following guidelines: * Discharge Patient to appropriate Phase II area if PAR is 8 or greater or return to pre- procedure baseline. The post - procedure orders will be as directed. * If PAR score is less than 8 or not return to pre-procedure baseline then patient will follow Phase I monitoring till PAR is reached for Phase II. The Phase I may be done in procedure room or may call to secure a Phase I area. * If naloxone or flumazenil are used for reversal, hold in Phase I for an additional 60 -120 minutes before discharge to Phase II. Please call the Sedation Physician to re-evaluate and complete post-note for discharge to Phase II area. Do NOT discharge from procedure sedation or Phase 1 until post- sedation evaluation note is complete by procedure /sedation MD Sedation Discharge Instructions to be given to the patient at discharge to home.
--- NOTE | 2017-11-14 09:06 | Discharge Instructions ---
Discharge Instructions Date of Service Nov 14, 2017. Visit Reason for Visit: End Stage Renal Disease Discharge Discharge Diagnosis / Problem: Malfunctioning left wrist fistula Discharge Goals Goal(s): Therapeutic intervention Activity Recommendations Activity Limitations: resume your previous activity Anesthesia . Post Anesthesia Instructions: If you have had General Anesthesia or IV Sedation: * Do not drive today. * Resume driving when surgeon permits. * Do not make important decisions or sign legal documents today. * Call surgeon for: 1. Temperature elevations greater than 101 degrees F. 2. Uncontrollable pain. 3. Excessive bleeding. 4. Persistent nausea and vomiting. 5. Medication intolerance (nausea, vomiting or rash). * For nausea and vomiting use only clear liquids such as: tea, soda, bouillon until nausea subsides, then gradually increase diet as tolerated. * If you have any concerns or questions, call your surgeon's office. If physician is unavailable and it is an emergency, call 911 or go to the nearest emergency room. . Instructions / Follow-Up Instructions / Follow-Up Call [phone] with any questions or concerns. SPECIAL CARE INSTRUCTIONS: Medications: * Continue to take your medications as directed. If you have been given a prescription for Plavix, please fill it immediately and take as directed. Incision Care: * Your puncture site may have some bruising and minor swelling for about one week. * You will have a small dressing covering your puncture site. You may remove the dressing after 24 hours and shower. You may let the warm soapy water run over it, but be sure to dry the puncture site well and keep it dry. * DO NOT IMMERSE THE INCISION IN A TUB/POOL/etc. UNTIL HEALED. * Puncture sites should be kept covered with a band-aid until it begins to heal. Restrictions: * Depending on whether you leg or arm was punctured to access the arteries, you will be required to lay flat, hold your arm still, or both, for about 4 hours after the procedure to prevent bleeding. * Limit your activity for the first 48 hours. You may walk and go up and down steps. Avoid excessive bending or movement at the puncture site. Possible Complications: * Excessive Swelling - after blood flow is improved you may notice increased swelling in the lower legs. This is a normal response. This usually depends on the amount of blockages in the leg, how long they have been there prior to your procedure and how much blood flow was restored. Elevating your legs will help to improve this. Please notify our office ([phone] ) if the swelling does not go away after lying in bed overnight. * Infection/Drainage/Bleeding - Drainage or bleeding from the puncture site should be minimal. If you have excessive bleeding or drainage, call our office ([phone]) right away. * Pain - You may experience some mild pain or soreness at your puncture site. If your pain does not improve, please contact our office ([phone]). Call your doctor and seek emergent treatment if you develop: * Temperature above 101 degrees * Any fever or chills * Any redness or purulent drainage from the puncture site * Any new dusky/blue colored toes or feet with coolness or sharp or aching pain. SKIN IRRITATION: * You may experience some redness and/or swelling in the area where radiation was administered. If any skin irritation occurs, please contact your family physician. FOLLOW UP VISIT: Keep any scheduled doctor appointments. Diet Recommendations Recommended Home Diet: resume previous diet Procedures Procedures Performed: Fistulogram, Percutaneous Transluminal Angioplasty Peripheral Venous, Embolization Of Side Branch Of Fistula, Moderate Concious Sedation 0825 to 0850 Pending Studies Studies pending at discharge: no Medical Emergencies . Who to Call and When: Medical Emergencies: If at any time you feel your situation is an emergency, please call 911 immediately. . Non-Emergent Contact Non-Emergency issues call your: Surgeon . . "Provider Documentation" section prepared by Ronny Solomon. .
[2017-11-14 09:10] VITALS: BP 177/78; PULSE 60; TEMP 36.6; O2SAT 99
--- NOTE | 2017-11-14 09:12 | [facility] Operative Report ---
Operative Report Operative Date Nov 14, 2017. Pre-Operative Diagnosis malfunctioning fistula Post-Operative Diagnosis malfunctioning fistula Procedure(s) Performed Fistulogram, Percutaneous Transluminal Angioplasty Peripheral Venous, Embolization Of Side Branch Of Fistula, Moderate Concious Sedation [address] 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 Specimens none Drains None Anesthesia Type IV Sedat Cons RN Only Complication(s) none Disposition no Indications This is a 57-year-old male with a left wrist AV fistula which is malfunctioning. Fistulogram was recommended with possible intervention. I have discussed the risks options and benefits of the procedure with the patient. The patient understands the risks options and benefits and agrees to the procedure. Description of Procedure The patient was taken to the angiogram suite and placed in the supine position. The left arm was then prepped and draped in a sterile manner. Local anesthetic was administered and a percutaneous puncture was then made of the proximal portion of the left arm AV fistula using micropuncture technique. Micropuncture wire and sheath were then inserted. A fistulogram was then performed. Fistulogram showed an occlusion of the cephalic vein in the mid forearm with reconstitution just below the elbow. There is also a large side branch coming off the fistula proximally just beyond the puncture site for the fistulogram. We exchanged the micropuncture sheath over a wire to a 5 Liberian sheath. Using an 035 wire and a Quick cross catheter the occlusion of the cephalic vein was traversed. We then ballooned this area with a 4 x 100 balloon followed by 6 x 1 20 balloon and finally by an 8 x 80 balloon. Good results were seen and a good thrill was felt. We then passed the wire into the large side branch which was stealing a lot of flow from the fistula. Once the wire was in the side branch the dilator was replaced into the sheath and the sheath advanced into the side branch. The wire was removed and positioning was confirmed. The tip of the sheath was in the side branch that we had seen. We then placed an 8 mm Amplatzer plug into the side branch. Once this was done the sheath was pulled back in the fistula. Fistulogram was performed. The fistula itself was widely patent. The side branch had very minimal flow with stagnation of flow in the collateral veins off the large branch. Again there was excellent flow seen through the main fistula tract through the cephalic vein. The sheath was then pulled and pressure was applied. Adequate hemostasis was obtained. The patient left the angiogram suite in good condition and tolerated the procedure well. I attest to the content of the Intraoperative Record and any orders documented therein. Any exceptions are noted below.
[2017-11-14 09:41] VITALS: BP 185/80; PULSE 64; TEMP 36.6; O2SAT 100
== END | disposition home or self-care (01) ==
LOC: C.ACU 06:01
PROVIDERS: ATTEND Surgery Vascular Surgery
DX: T82.898A Other specified complication of vascular prosthetic devices, implants and grafts, initial encounter (principal); Y84.8 Other medical procedures as the cause of abnormal reaction of the patient, or of later complication, without mention of misadventure at the time of the procedure; E11.9 Type 2 diabetes mellitus without complications; I10 Essential (primary) hypertension; E66.9 Obesity, unspecified

== ENCOUNTER 2018-09-13 10:56 | Inpatient (IN) ==
[2018-09-13 12:30] LABS: INR 1.1 (0.9-1.1); Partial Thromboplastin Ratio 0.9; Partial Thromboplastin Time 24.8 Seconds (21.0-31.0); Prothrombin Time 11.3 Seconds (9.0-12.0)
[2018-09-13 12:32] LABS: Hematocrit (blood only) 20.7 % (42-52); Hemoglobin 6.7 g/dL (14.0-18.0); Mean Corpuscular Hgb Conc 32.4 g/dL (32-36); Mean Corpuscular Volume 93.7 fL (80-100); Mean Platelet Volume 9.4 fL (7.4-10.4); Platelet Count 386 K/uL (130-400); RDW Coefficient of Variation 15.8 % (11.5-14.5); RDW Standard Deviation 53.4 fL (36.4-46.3); Red Blood Count 2.21 M/uL (4.7-6.1); White Blood Count 9.19 K/uL (4.8-10.8)
[2018-09-13 12:46] LABS: Albumin Globulin Ratio 0.6 (0.9-2); Albumin Level 2.5 gm/dl (3.4-5.0); Anisocytosis Present; BUN Creatinine Ratio 8.4 (10-20); Bilirubin,Total 0.5 mg/dl (0.2-1); Calcium 8.1 mg/dl (8.5-10.1); Creatinine Clr Calc Pharmacy 20.7 ml/min; Eosinophils # (auto) 0.13 K/uL (0-0.5); Eosinophils % (auto) 1.4 %; Est GFR (African American) 9.6; Est GFR (Non-African American) 8.3; Globulin 4.2 gm/dl (2.5-4.0); Immature Granulocytes # (auto) 0.03 K/uL (0.00-0.02); Immature Granulocytes % (auto) 0.3 %; Lymphocytes # (auto) 1.04 K/uL (1.2-3.4); Lymphocytes % (auto) 11.3 %; Monocytes # (auto) 0.33 K/uL (0.11-0.59); Monocytes % (auto) 3.6 %; Neutrophils # (auto) 7.66 K/uL (1.4-6.5); Neutrophils % (auto) 83.4 %; Potassium 4.5 mmol/L (3.5-5.1); Total Protein 6.7 gm/dl (6.4-8.2)
[2018-09-13] MEDS ORDERED: SODIUM CHLORIDE 0.9% 250 ML IV PRN ×2 (12:53→15:18)
--- NOTE | 2018-09-13 13:53 | History & Physical Report ---
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 Mims he has appointment tomorrow that will need to be rescheduled he does not want to see a surgeon here because he has full trust in his airflight attendants supervisor will not change current treatment, simply transfuse for the blood loss try to get him a new appointment mid week if he needs further surgery then his airflight attendants supervisor can determine this at follow up (3) End-stage renal disease on hemodialysis: consult Dr. Israel he missed HD yesterday no signs of volume overload, electrolytes stable, no need for emergent HD repeat BMP in the morning (4) Diabetes: continue Levemir, Novolog SS ordered has complications of nephropathy and neuropathy diabetic diet (5) Secondary hyperparathyroidism of renal origin: continue Calcium acetate TID meals (6) Dry gangrene: left 4th toe his airflight attendants supervisor already told him that it is likely that he will need this amputated defer to his airflight attendants supervisor on follow up History of Present Illness Chief Complaint: I was bleeding all over the floor Primary Care Provider: Ashley Villagran, 58 yo male with history of poorly controlled diabetes with nephropathy, neuropathy, peripheral vascular disease. Has been on HD for 4 years, has a left UE fistula, follows with Dr. Israel. Has neuropathy with history of foot ulcers and wounds. Years ago he had an ulcer on toe on right foot and at that time the recommendation from several specialists was for amputation of the foot. His airflight attendants supervisor, Dr. Mims recommended a toe amputation and tried to save the foot. Treatment was effective and the patient still has right foot, wound healed. From what the patient tells me, two weeks ago he developed severe infection of the left 5th and 4th toes, left metatarsal and soft tissue infection. He was seen at [facility]. Dr. Mims again operated on him, trying to salvage the foot. I do not have the operative record but from examining his foot it would appear that she removed his 5th toe and metatarsal and performed an extensive debridement of the foot extending to mid protion of dorsal surface of the foot and wrapping under the foot to include a good portion of the plantar surface. Wound vac placed and the patient was placed on Vancomycin and Rocephin IV. Unknown the results of cultures from the wound. The patient says he has no pain in the foot due to neuropathy. He has not had any fevers or chills or sweats. He was discharged to [facility] rehab to get stronger, continue IV antibiotics and get HD on T Fri schedule. He missed HD yesterday because he had to attend a . He was actually doing quite well and planning on following up with Dr. Donald Meyer tomorrow in her office in [place]. This morning there was a pool of blood on the floor under his foot. He said that it had not bled since surgery. There was no clear site of the blood loss. There was no blood coming out of the wound vac so the bleeding did not appear to be from the deep wound itself. The patient felt fine, no dizziness, no light headedness, no dyspnea or chest pain. He was sent to the ED for evaluation. In the ED vitals were stable. Hb quite low at 6.7, typically he says his Hb is 9-10gm range. No history of GI bleeding and he denies seeing any melena, only source of blood loss was from the foot this morning. He was ordered two units of PRBC and admission requested. Allergies Allergy/AdvReac Type Severity Reaction Status Date / Time doxycycline Allergy Rash Unverified 09/13/18 11:13 Home Medications Home Medications Medication Instructions Recorded Confirmed Type calcium acetate 2,001 mg PO TIDM #0 10/17/17 09/13/18 History clopidogrel 75 mg PO DAILY #0 tab 10/17/17 09/13/18 History metoprolol tartrate 50 mg PO Q12 #0 tab 10/17/17 09/13/18 History bisacodyl 10 mg [place] DAILY PRN 09/08/18 09/13/18 History ceftriaxone 1 dose IV DAILY 09/08/18 09/13/18 History dextrose 50 % in water (D50W) 50 ml IV DIRECTED 09/08/18 09/13/18 History docusate sodium 100 mg PO BID 09/08/18 09/13/18 History ferrous sulfate 325 mg PO BID 09/08/18 09/13/18 History glucagon HCl 1 dose SUBCUT DAILY PRN 09/08/18 09/13/18 History insulin glargine [Lantus U-100 10 unit SUBCUT DAILY 09/08/18 09/13/18 History Insulin] polyethylene glycol 3350 [Miralax] 17 g PO DAILY PRN 09/08/18 09/13/18 History sennosides-docusate sodium 1 tab PO DAILY PRN 09/08/18 09/13/18 History [Senokot-S] vancomycin 1 dose IV DIRECTED 09/08/18 09/13/18 History acetaminophen [Tylenol] 650 mg PO Q4 PRN 09/13/18 09/13/18 History amlodipine [Norvasc] 5 mg PO DAILY 09/13/18 09/13/18 History darbepoetin tulio in polysorbat 1 dose SUBCUT DIRECTED 09/13/18 09/13/18 History [Aranesp (in polysorbate)] dextrose [Glucose Gel] 1 dose PO DIRECTED PRN 09/13/18 09/13/18 History insulin aspart U-100 [Novolog 1 sliding scale dose SUBCUT UD 09/13/18 09/13/18 History U-100 Insulin aspart] lisinopril 40 mg PO DAILY 09/13/18 09/13/18 History Past Med/Surg History Medical History Amputated toe of left foot Amputated toe of right foot Acute kidney injury (Acute) Anasarca (Acute) Bilateral cellulitis of lower leg (Acute) ESRD (end stage renal disease) on dialysis (Acute) Gangrene (Acute) Gangrene (Acute) HTN (hypertension) (Acute) Hyperparathyroidism due to end stage renal disease on dialysis (Acute) Metabolic acidosis (Acute) Nephrotic syndrome (Acute) Obesity (Acute) Osteomyelitis (Acute) Proteinuria (Acute) Surgical History History of angioplasty of peripheral vessel S/P arteriovenous (AV) fistula creation Status post incision and drainage left foot wound Family History Other Diabetes Family history non-contributory HTN (hypertension) Social History Feels Safe at Home: Yes Smoking Status: Never smoker Preferred Language: Spanish Review of Systems All systems reviewed & are unremarkable except as noted in HPI & below Constitutional: no fever, no chills and no sweats Integumentary: + wounds (left foot wound with wound vac, some dry blood on skin , no active bleeding) and + problem reported (skin sloughing around wound vac, 4th toe has dry gangrene) Neurologic: + numbness (feet bilaterally) Physical Exam 2 Vital Signs (Past 24 Hours): Last Vital Signs Temp 36.5 C 09/13/18 11:18 Pulse 65 09/13/18 13:07 Resp 17 09/13/18 13:07 BP 136/59 L 09/13/18 13:07 Pulse Ox 100 09/13/18 13:07 Constitutional: WD/WN, vitals as above + morbidly obese Eyes: PERRL, conjunctivae normal, anicteric sclerae ENMT: external ear and nose normal, oropharynx normal Neck: trachea midline, no thyromegaly Respiratory: normal respiratory effort, lungs clear to auscultation Cardiovascular: RRR, no murmur, no edema Gastrointestinal (Abdomen): normal bowel sounds, soft, nontender, no hepatosplenomegaly Musculoskeletal: no cyanosis or clubbing, extremities motor strength 5/5 Skin: + wound (left foot wound vac, wraps around from plantar surface to later and dorsal midfoot) sloughing of skin, some skin appears necrotic, dry gangrene of left 4th toe, no pain, has loss of sensation dry blood on foot but no active bleeding or oozing Neurologic: patellar DTR's 2+ bilat, sensation intact and PERRL, EOMI, accommodation nl, no face palsy, no dysarthria + abnormal touch/pain/ proprioception (no pain sensation in feet bilaterally, decreased sensation to light touch) Psychiatric: A+Ox3, euthymic affect Lymphatic: no cervical or axillary lymphadenopathy Results & Data Laboratory Results Laboratory Results - last 24 hr 09/13/18 09/13/18 09/13/18 12:10 12:10 12:10 WBC 9.19 RBC 2.21 L Hgb 6.7 L* Hct 20.7 L* MCV 93.7 MCH 30.3 MCHC 32.4 RDW Std Deviation 53.4 H RDW Coeff of Dorcas 15.8 H Plt Count 386 MPV 9.4 Immature Gran % (Auto) 0.3 Neut % (Auto) 83.4 Lymph % (Auto) 11.3 Bay % (Auto) 3.6 Eos % (Auto) 1.4 Baso % (Auto) 0.0 Immature Gran # (Auto) 0.03 H Neut # (Auto) 7.66 H Lymph # (Auto) 1.04 L Bay # (Auto) 0.33 Eos # (Auto) 0.13 Baso # (Auto) 0.00 Anisocytosis Present PT 11.3 INR 1.1 APTT 24.8 PTT Ratio 0.9 Sodium 131 L Potassium 4.5 Chloride 97 L Carbon Dioxide 26 Anion Gap 8.0 BUN 58 H Creatinine 6.79 H* Est Cr Clr Drug Dosing 20.7 Est GFR ( Amer) 9.6 Est GFR (Non-Af Amer) 8.3 BUN/Creatinine Ratio 8.4 L Glucose 161 H Calcium 8.1 L Total Bilirubin 0.5 AST 11 L ALT 13 Alkaline Phosphatase 108 Total Protein 6.7 Albumin 2.5 L Globulin 4.2 H Albumin/Globulin Ratio 0.6 L Blood Type Antibody Screen Crossmatch 09/13/18 13:02 WBC RBC Hgb Hct MCV MCH MCHC RDW Std Deviation RDW Coeff of Dorcas Plt Count MPV Immature Gran % (Auto) Neut % (Auto) Lymph % (Auto) Bay % (Auto) Eos % (Auto) Baso % (Auto) Immature Gran # (Auto) Neut # (Auto) Lymph # (Auto) Bay # (Auto) Eos # (Auto) Baso # (Auto) Anisocytosis PT INR APTT PTT Ratio Sodium Potassium Chloride Carbon Dioxide Anion Gap BUN Creatinine Est Cr Clr Drug Dosing Est GFR ( Amer) Est GFR (Non-Af Amer) BUN/Creatinine Ratio Glucose Calcium Total Bilirubin AST ALT Alkaline Phosphatase Total Protein Albumin Globulin Albumin/Globulin Ratio Blood Type A Negative Antibody Screen NEGATIVE Crossmatch See Detail Code Status & VTE Plan Code Status full code VTE Prophylaxis Plan VTE Prophylaxis will be ordered: No Reason for no VTE drug order: Contraindicated (bleeding)
[2018-09-13] MEDS ORDERED: BISACODYL 10 MG SUPP PR PRN (15:18)
[2018-09-13] MEDS ORDERED: ONDANSETRON INJ 2 MG/ML 2 ML VIAL IV PRN (15:18)
[2018-09-13] MEDS ORDERED: VANCOMYCIN IV SCH (15:18)
[2018-09-13] MEDS ORDERED: VANCOMYCIN CONSULT ACTIVE PRN (16:05)
--- NOTE | 2018-09-13 16:28 | Pharmacy Report ---
Pharmacy Abx Initial Consult - Date of Service September 13, 2018 - Pharmacy Dosing Scope Date of Consult: 09-13 Consultation requested by: Dr. Blanco Pharmacy is consulted to initiate vancomycin dosing therapy, order appropriate labs and adjust drug dose/frequency. - Subjective The patient is a 58 year old M admitted on 09/13/18 13:40. - Objective Height: 6 ft 2 in Weight: 177.5 kg Lab Results (24hrs): Laboratory Tests (24 Hours) 09/13/18 09/13/18 12:10 12:10 WBC 9.19 Neut # (Auto) 7.66 H Creatinine 6.79 H* Est Cr Clr Drug Dosing 20.7 - Assessment & Plan Assessment /Plan Pharmacy consulted for vancomycin dosing for worsening foot infection. Patient previously on vancomycin/rocephin outpatient. Recently seen at [facility] and now s/p removal of 5th toe and metatarsal with extensive debridement now with wound vac. Nursing checked records to confirm patient gets rocephin 2 gm daily with dinner and vancomycin 1.5 gm iv on TuThSa (based upon HD days). Plan to continue with rocephin 2 gm and will dose vancomycin based upon HD. Vancomycin: * Patient reports missing dialysis session yesterday - nephrology consulted / unclear if dialysis is planned for today * Ordered a stat random vancomycin level to assist with further dosing. Pharmacy will continue to follow and will adjust dose/frequency as necessary. Thank you.
[2018-09-13] MEDS: INSULIN ASPART 100 UNITS/ML 3 ML PEN SC SCH ×2 (18:25→21:17)
[2018-09-13] MEDS: CALCIUM ACETATE 667 MG CAP PO SCH (18:26)
[2018-09-13] MEDS: FERROUS SULFATE 325 MG TAB PO SCH (18:26)
--- NOTE | 2018-09-13 18:58 | Emergency Department Note ---
Entered by Karis Cosby acting as a scribe for History of Present Illness General Chief complaint: Foot Injury/Pain Time Seen by Provider: 09/13/18 11:21 Source: patient History of Present Illness Onset (ago): hour(s) (0930 this morning) Location: foot (left) Pain Consistency: + other (after a left fifth toe amputation 2 weeks ago) Quality: + other (left foot injury) Associated symptoms: + other; no fever/chills The patient is a 58 year old white male w/ PMHx of STEVE, anasarca, diabetes, end stage renal disease, HTN, obesity, gangrene who presents to the ED w/ CC of a left foot injury beginning at 0930 this morning. He reports he was brought back from physical therapy at 0930 today and was watching TV when he looked down at his left foot and saw a pool of blood. He reports he recently had an amputation of his left fifth toe 2 weeks ago and was told not to bear weight on it, but he was walking around yesterday. The patient is on a Friday, , Friday dialysis schedule but did not go yesterday as he went to a . Pt denies fevers, chills. Pt regularly takes Plavix for a stent in his legs. Home Medications Home Medications Medication Instructions Recorded Confirmed Type calcium acetate 2,001 mg PO TIDM #0 10/17/17 09/13/18 History clopidogrel 75 mg PO DAILY #0 tab 10/17/17 09/13/18 History metoprolol tartrate 50 mg PO Q12 #0 tab 10/17/17 09/13/18 History bisacodyl 10 mg AK DAILY PRN 09/08/18 09/13/18 History ceftriaxone 1 dose IV DAILY 09/08/18 09/13/18 History dextrose 50 % in water (D50W) 50 ml IV DIRECTED 09/08/18 09/13/18 History docusate sodium 100 mg PO BID 09/08/18 09/13/18 History ferrous sulfate 325 mg PO BID 09/08/18 09/13/18 History glucagon HCl 1 dose SUBCUT DAILY PRN 09/08/18 09/13/18 History insulin glargine [Lantus U-100 10 unit SUBCUT DAILY 09/08/18 09/13/18 History Insulin] polyethylene glycol 3350 [Miralax] 17 g PO DAILY PRN 09/08/18 09/13/18 History sennosides-docusate sodium 1 tab PO DAILY PRN 09/08/18 09/13/18 History [Senokot-S] vancomycin 1 dose IV DIRECTED 09/08/18 09/13/18 History acetaminophen [Tylenol] 650 mg PO Q4 PRN 09/13/18 09/13/18 History amlodipine [Norvasc] 5 mg PO DAILY 09/13/18 09/13/18 History darbepoetin tulio in polysorbat 1 dose SUBCUT DIRECTED 09/13/18 09/13/18 History [Aranesp (in polysorbate)] dextrose [Glucose Gel] 1 dose PO DIRECTED PRN 09/13/18 09/13/18 History insulin aspart U-100 [Novolog 1 sliding scale dose SUBCUT UD 09/13/18 09/13/18 History U-100 Insulin aspart] lisinopril 40 mg PO DAILY 09/13/18 09/13/18 History Allergies Allergy/AdvReac Type Severity Reaction Status Date / Time doxycycline Allergy Rash Unverified 09/13/18 11:13 Past Med/Surg History Family History Other Diabetes Family history non-contributory HTN (hypertension) Social History Current Living Situation: Rehab Other Information That Helps Us Care for You: No Feels Safe at Home: Yes Safety Concerns: Feels Safe At This Time Smoking Status: Never smoker Do You Dip or Chew Tobacco: No Hx Alcohol Use: No Hx Substance Use: No Beliefs That Will Affect Care: None Preferred Language: Burmese Communication Ability: Effective Waste Minimization Technician Required: No Review of Systems See HPI for pertinent positives & negatives. and A total of 10 systems reviewed and were otherwise negative Physical Exam Vital Signs Vital Signs - 24 hr 09/13/18 11:18 09/13/18 12:39 09/13/18 13:00 Temperature 36.5 C Temperature Source Oral Sepsis Recent Fever Within 48 Hours No Sepsis New/Unexplained Change in Mental Status No Sepsis Action Taken by Nursing No Action Required Pulse Rate 66 66 59 L Pulse Rate [Apical] 66 Pulse Rate from SpO2 Sensor 66 58 L Respiratory Rate 18 17 15 Respiratory Effort / Characteristics Respiratory Depth Respiratory Pattern Blood Pressure 177/151 H Blood Pressure [Right Arm] 116/61 Blood Pressure Mean 159 Blood Pressure Mean [Right Arm] 79 Blood Pressure Position Blood Pressure Position [Right Arm] Pulse Oximetry 98 100 98 Oxygen Delivery Method Room Air Room Air 09/13/18 13:01 09/13/18 13:02 09/13/18 13:07 Temperature Temperature Source Sepsis Recent Fever Within 48 Hours Sepsis New/Unexplained Change in Mental Status Sepsis Action Taken by Nursing Pulse Rate 62 69 65 Pulse Rate [Apical] Pulse Rate from SpO2 Sensor 61 63 64 Respiratory Rate 16 20 17 Respiratory Effort / Characteristics Respiratory Depth Respiratory Pattern Blood Pressure 136/59 L Blood Pressure [Right Arm] Blood Pressure Mean 92 84 Blood Pressure Mean [Right Arm] Blood Pressure Position Blood Pressure Position [Right Arm] Pulse Oximetry 100 99 100 Oxygen Delivery Method 09/13/18 13:08 09/13/18 13:30 09/13/18 13:31 Temperature Temperature Source Sepsis Recent Fever Within 48 Hours Sepsis New/Unexplained Change in Mental Status Sepsis Action Taken by Nursing Pulse Rate 62 67 68 Pulse Rate [Apical] Pulse Rate from SpO2 Sensor 63 63 68 Respiratory Rate 18 18 15 Respiratory Effort / Characteristics Respiratory Depth Respiratory Pattern Blood Pressure 158/75 H Blood Pressure [Right Arm] Blood Pressure Mean 102 Blood Pressure Mean [Right Arm] Blood Pressure Position Blood Pressure Position [Right Arm] Pulse Oximetry 100 100 100 Oxygen Delivery Method 09/13/18 13:32 09/13/18 14:00 09/13/18 14:01 Temperature Temperature Source Sepsis Recent Fever Within 48 Hours Sepsis New/Unexplained Change in Mental Status Sepsis Action Taken by Nursing Pulse Rate 60 60 72 Pulse Rate [Apical] Pulse Rate from SpO2 Sensor 60 60 64 Respiratory Rate 13 15 15 Respiratory Effort / Characteristics Respiratory Depth Respiratory Pattern Blood Pressure 146/78 H Blood Pressure [Right Arm] Blood Pressure Mean 100 Blood Pressure Mean [Right Arm] Blood Pressure Position Blood Pressure Position [Right Arm] Pulse Oximetry 100 100 Oxygen Delivery Method 09/13/18 14:17 09/13/18 14:18 09/13/18 14:30 Temperature 36.6 C Temperature Source Oral Sepsis Recent Fever Within 48 Hours Sepsis New/Unexplained Change in Mental Status Sepsis Action Taken by Nursing Pulse Rate 61 62 62 Pulse Rate [Apical] Pulse Rate from SpO2 Sensor 61 59 L Respiratory Rate 14 14 19 Respiratory Effort / Characteristics Respiratory Depth Respiratory Pattern Blood Pressure 136/70 136/70 Blood Pressure [Right Arm] Blood Pressure Mean 92 92 Blood Pressure Mean [Right Arm] Blood Pressure Position Blood Pressure Position [Right Arm] Pulse Oximetry 100 100 99 Oxygen Delivery Method 09/13/18 14:31 09/13/18 14:32 09/13/18 14:33 Temperature 36.6 C Temperature Source Oral Sepsis Recent Fever Within 48 Hours Sepsis New/Unexplained Change in Mental Status Sepsis Action Taken by Nursing Pulse Rate 64 62 60 Pulse Rate [Apical] Pulse Rate from SpO2 Sensor 63 64 Respiratory Rate 17 18 17 Respiratory Effort / Characteristics Respiratory Depth Respiratory Pattern Blood Pressure 148/66 H 148/66 H Blood Pressure [Right Arm] Blood Pressure Mean 93 93 Blood Pressure Mean [Right Arm] Blood Pressure Position Blood Pressure Position [Right Arm] Pulse Oximetry 98 100 99 Oxygen Delivery Method 09/13/18 14:48 09/13/18 14:49 09/13/18 15:00 Temperature 36.6 C Temperature Source Oral Sepsis Recent Fever Within 48 Hours Sepsis New/Unexplained Change in Mental Status Sepsis Action Taken by Nursing Pulse Rate 59 L Pulse Rate [Apical] 59 L Pulse Rate from SpO2 Sensor Respiratory Rate 18 19 Respiratory Effort / Characteristics Non-Labored Spontaneous Respiratory Depth Normal Respiratory Pattern Regular Blood Pressure 158/78 H Blood Pressure [Right Arm] 158/78 H Blood Pressure Mean 104 Blood Pressure Mean [Right Arm] 104 Blood Pressure Position Blood Pressure Position [Right Arm] Pulse Oximetry 100 100 Oxygen Delivery Method Room Air Room Air 09/13/18 15:20 09/13/18 15:50 09/13/18 16:20 Temperature 36.6 C 36.5 C 36.5 C Temperature Source Oral Oral Oral Sepsis Recent Fever Within 48 Hours Sepsis New/Unexplained Change in Mental Status Sepsis Action Taken by Nursing Pulse Rate 74 65 64 Pulse Rate [Apical] 74 Pulse Rate from SpO2 Sensor Respiratory Rate 18 18 18 Respiratory Effort / Characteristics Respiratory Depth Respiratory Pattern Blood Pressure 159/75 H 148/66 H 153/61 H Blood Pressure [Right Arm] 159/75 H Blood Pressure Mean 103 93 91 Blood Pressure Mean [Right Arm] 103 Blood Pressure Position Lying Lying Lying Blood Pressure Position [Right Arm] Lying Pulse Oximetry 93 97 98 Oxygen Delivery Method Room Air 09/13/18 17:18 09/13/18 18:10 09/13/18 18:28 Temperature 36.6 C 36.5 C 36.5 C Temperature Source Oral Oral Oral Sepsis Recent Fever Within 48 Hours Sepsis New/Unexplained Change in Mental Status Sepsis Action Taken by Nursing Pulse Rate 68 68 68 Pulse Rate [Apical] Pulse Rate from SpO2 Sensor Respiratory Rate 15 16 16 Respiratory Effort / Characteristics Respiratory Depth Respiratory Pattern Blood Pressure 157/71 H 156/72 H 156/72 H Blood Pressure [Right Arm] Blood Pressure Mean 99 100 100 Blood Pressure Mean [Right Arm] Blood Pressure Position Blood Pressure Position [Right Arm] Pulse Oximetry 97 98 98 Oxygen Delivery Method 09/13/18 18:48 Temperature 36.4 C L Temperature Source Oral Sepsis Recent Fever Within 48 Hours Sepsis New/Unexplained Change in Mental Status Sepsis Action Taken by Nursing Pulse Rate 67 Pulse Rate [Apical] Pulse Rate from SpO2 Sensor Respiratory Rate 16 Respiratory Effort / Characteristics Respiratory Depth Respiratory Pattern Blood Pressure 166/79 H Blood Pressure [Right Arm] Blood Pressure Mean 108 Blood Pressure Mean [Right Arm] Blood Pressure Position Blood Pressure Position [Right Arm] Pulse Oximetry 98 Oxygen Delivery Method GENERAL: Well appearing, well nourished, NAD, non-toxic. EYE EXAM: Normal conjunctiva. PERRL, no anisocoria and EOM's grossly intact w/o pain OROPHARYNX: Moist MM. NECK: Supple, no nuchal rigidity, no adenopathy, non-tender. No signs of meningismus LUNGS: Clear to auscultation. Normal chest wall mechanics. HEART: NSR, no MRG ABDOMEN: Abdomen soft, non-tender, normo-active bowel sounds, no masses, no rebound or guarding. BACK: No CVA TTP SKIN: No rashes and no bruising. UPPER EXTREMITIES: Upper extremities are grossly normal. AV fistula LUE distal forearm. Palpable thrill. LOWER EXTREMITIES: No pitting edema. No calf pain. Wound vac in place in LLE. Missing fifth digit. Dry gangrene fourth digit. No active bleeding. NEURO EXAM: A and O x3. GCS 15. Course 1129: Past medical records reviewed. The patient was evaluated in room C5, and a complete history and physical examination were performed. 1330: I reviewed the patient's case with Dr. Blanco, [facility] Hospitalist. He will evaluate the patient for further management. Consultations Consultation #1: I reviewed the patient's case with Dr. Blanco, [facility] Hospitalist. He will evaluate the patient for further management. Time: 13:30 Administered Medications Calcium Acetate (Phoslo) 2,001 mg PO TIDM VIN Stop: 10/13/18 16:59 Last Admin: 02/24/19 18:26 Dose: 1,334 mg Ferrous Sulfate (Feosol) 325 mg PO BIDM [facility] Stop: 10/13/18 16:59 Last Admin: 09/13/18 18:26 Dose: 325 mg Insulin Aspart (Novolog Flexpen) 0 units SC ACHS [facility] Stop: 10/13/18 16:29 Last Admin: 09/13/18 18:25 Dose: 5 units PRBC Medical Decision Making Medical Records Attestation: I reviewed the patient's medical records. Home Medications Current Medication List: was personally reviewed by me Laboratory Data Attestation: I reviewed the patient's lab results. Result diagrams: 09/13/18 12:10 09/13/18 12:10 Lab Results 09/13/18 09/13/18 09/13/18 Range/Units 12:10 12:10 12:10 WBC 9.19 (4.8-10.8) K/uL RBC 2.21 L (4.7-6.1) M/uL Hgb 6.7 L* (14.0-18.0) g/dL Hct 20.7 L* (42-52) % MCV 93.7 (80-100) fL MCH 30.3 (25-34) pg MCHC 32.4 (32-36) g/dL RDW Std Deviation 53.4 H (36.4-46.3) fL RDW Coeff of Dorcas 15.8 H (11.5-14.5) % Plt Count 386 (130-400) K/uL MPV 9.4 (7.4-10.4) fL Immature Gran % (Auto) 0.3 % Neut % (Auto) 83.4 % Lymph % (Auto) 11.3 % [place]iscoe % (Auto) 3.6 % Eos % (Auto) 1.4 % Baso % (Auto) 0.0 % Immature Gran # (Auto) 0.03 H (0.00-0.02) K/uL Neut # (Auto) 7.66 H (1.4-6.5) K/uL Lymph # (Auto) 1.04 L (1.2-3.4) K/uL [place] # (Auto) 0.33 (0.11-0.59) K/uL Eos # (Auto) 0.13 (0-0.5) K/uL Baso # (Auto) 0.00 (0-0.2) K/uL Anisocytosis Present PT 11.3 (9.0-12.0) Seconds INR 1.1 (0.9-1.1) APTT 24.8 (21.0-31.0) Seconds PTT Ratio 0.9 Sodium 131 L (136-145) mmol/L Potassium 4.5 (3.5-5.1) mmol/L Chloride 97 L (98-107) mmol/L Carbon Dioxide 26 (21-32) mmol/L Anion Gap 8.0 (3-11) BUN 58 H (7-18) mg/dl Creatinine 6.79 H* (0.6-1.4) mg/dl Est Cr Clr Drug Dosing 20.7 ml/min Est GFR ( Amer) 9.6 Est GFR (Non-Af Amer) 8.3 BUN/Creatinine Ratio 8.4 L (10-20) Glucose 161 H (70-99) mg/dl POC Glucose (70-99) Calcium 8.1 L (8.5-10.1) mg/dl Total Bilirubin 0.5 (0.2-1) mg/dl AST 11 L (15-37) U/L ALT 13 (12-78) U/L Alkaline Phosphatase 108 (45-117) U/L Total Protein 6.7 (6.4-8.2) gm/dl Albumin 2.5 L (3.4-5.0) gm/dl Globulin 4.2 H (2.5-4.0) gm/dl Albumin/Globulin Ratio 0.6 L (0.9-2) Nasal Screen MRSA (PCR) (Negative) Random Vancomycin mcg/ml Blood Type Antibody Screen Crossmatch 09/13/18 09/13/18 09/13/18 Range/Units 13:02 16:18 16:51 WBC (4.8-10.8) K/uL RBC (4.7-6.1) M/uL Hgb (14.0-18.0) g/dL Hct (42-52) % MCV (80-100) fL MCH (25-34) pg MCHC (32-36) g/dL RDW Std Deviation (36.4-46.3) fL RDW Coeff of Dorcas (11.5-14.5) % Plt Count (130-400) K/uL MPV (7.4-10.4) fL Immature Gran % (Auto) % Neut % (Auto) % Lymph % (Auto) % [place]isco[place] % (Auto) % Eos % (Auto) % Baso % (Auto) % Immature Gran # (Auto) (0.00-0.02) K/uL Neut # (Auto) (1.4-6.5) K/uL Lymph # (Auto) (1.2-3.4) K/uL [place]iscoe # (Auto) (0.11-0.59) K/uL Eos # (Auto) (0-0.5) K/uL Baso # (Auto) (0-0.2) K/uL Anisocytosis PT (9.0-12.0) Seconds INR (0.9-1.1) APTT (21.0-31.0) Seconds PTT Ratio Sodium (136-145) mmol/L Potassium (3.5-5.1) mmol/L Chloride (98-107) mmol/L Carbon Dioxide (21-32) mmol/L Anion Gap (3-11) BUN (7-18) mg/dl Creatinine (0.6-1.4) mg/dl Est Cr Clr Drug Dosing ml/min Est GFR ( Amer) Est GFR (Non-Af Amer) BUN/Creatinine Ratio (10-20) Glucose (70-99) mg/dl POC Glucose 131 H (70-99) Calcium (8.5-10.1) mg/dl Total Bilirubin (0.2-1) mg/dl AST (15-37) U/L ALT (12-78) U/L Alkaline Phosphatase (45-117) U/L Total Protein (6.4-8.2) gm/dl Albumin (3.4-5.0) gm/dl Globulin (2.5-4.0) gm/dl Albumin/Globulin Ratio (0.9-2) Nasal Screen MRSA (PCR) (Negative) Random Vancomycin 24.1 mcg/ml Blood Type A Negative Antibody Screen NEGATIVE Crossmatch See Detail 09/13/18 Range/Units Unknown WBC (4.8-10.8) K/uL RBC (4.7-6.1) M/uL Hgb (14.0-18.0) g/dL Hct (42-52) % MCV (80-100) fL MCH (25-34) pg MCHC (32-36) g/dL RDW Std Deviation (36.4-46.3) fL RDW Coeff of Dorcas (11.5-14.5) % Plt Count (130-400) K/uL MPV (7.4-10.4) fL Immature Gran % (Auto) % Neut % (Auto) % Lymph % (Auto) % [place] % (Auto) % Eos % (Auto) % Baso % (Auto) % Immature Gran # (Auto) (0.00-0.02) K/uL Neut # (Auto) (1.4-6.5) K/uL Lymph # (Auto) (1.2-3.4) K/uL [place] # (Auto) (0.11-0.59) K/uL Eos # (Auto) (0-0.5) K/uL Baso # (Auto) (0-0.2) K/uL Anisocytosis PT (9.0-12.0) Seconds INR (0.9-1.1) APTT (21.0-31.0) Seconds PTT Ratio Sodium (136-145) mmol/L Potassium (3.5-5.1) mmol/L Chloride (98-107) mmol/L Carbon Dioxide (21-32) mmol/L Anion Gap (3-11) BUN (7-18) mg/dl Creatinine (0.6-1.4) mg/dl Est Cr Clr Drug Dosing ml/min Est GFR ( Amer) Est GFR (Non-Af Amer) BUN/Creatinine Ratio (10-20) Glucose (70-99) mg/dl POC Glucose (70-99) Calcium (8.5-10.1) mg/dl Total Bilirubin (0.2-1) mg/dl AST (15-37) U/L ALT (12-78) U/L Alkaline Phosphatase (45-117) U/L Total Protein (6.4-8.2) gm/dl Albumin (3.4-5.0) gm/dl Globulin (2.5-4.0) gm/dl Albumin/Globulin Ratio (0.9-2) Nasal Screen MRSA (PCR) Negative (Negative) Random Vancomycin mcg/ml Blood Type Antibody Screen Crossmatch ECG Data Attestation: I personally reviewed and interpreted this ECG as follows: Indication: other (left foot injury) Rate (beats per minute): 64 Rhythm: normal sinus Findings: + Q waves (lead III); no PAC, no PVC, no ST depression and no ST elevation Blood Pressure Blood Pressure Findings: Elevated blood pressure Blood Pressure Disposition: further management by hospitalist RAYO Sánchez Prior records/ancillary studies reviewed. Triage nursing notes reviewed. The patient is a 58 year old white male w/ PMHx of STEVE, anasarca, diabetes, end stage renal disease, HTN, obesity, gangrene who presents to the ED w/ CC of a left foot injury beginning at 0930 this morning. Differential diagnosis: Etiologies such as coagulopathy, CKD, hyperkalemia, GI bleed, anemia of chronic disease, hyperuremia, as well as others were entertained. Patient was seen and evaluated the bedside. The patient was reportedly sent here for further evaluation is foot. Patient did have what seems to be a left fifth transmetatarsal amputation. Patient subsequently did have a bit of debridement likely as well as a wound VAC in place. The bandage was broken down. The patient does appear to have a dry gangrene of the left fourth digit of the foot. There is no active bleeding at this time. The patient does have a history of ESRD but did not get this dialysis yesterday. The patient is supposed to be on IV Rocephin and vancomycin. The patient did receive a blood transfusion earlier this week. Patient's blood work showed hemoglobin of 6.7. I believe this is likely anemia of chronic disease. The patient was consented type and crossed and ordered 1 unit which was started in the emergency department. Given the patient's requirement for transfusion and the fact that he is a dialysis patient with a recent missed dialysis session I believe he would benefit from further inpatient treatment at this time. I did speak the on-call hospitalist who agreed to further evaluate and treat the patient. Patient was admitted to the medicine service. Impression & Plan Anemia due to chronic kidney disease, ESRD on dialysis, Dry gangrene Critical Care Time I have personally spent greater than 45 minutes of critical care time in the direct management of this patient. This includes bedside care, interpretation of diagnostic studies, and testing, discussion with consultants, patient, and family members, and other required patient management activities. This 45 minutes is in excess of all separately billable procedures. Critical Care Time: Yes Total Critical Care Time: 45 Discharge Plan Visit Data *Final* Discharge Date/Time: 09/13/18 14:50 Chief Complaint: Foot Injury/Pain ED Provider: Malcolm Howard Discharge Problem: Anemia due to chronic kidney disease, ESRD on dialysis, Dry gangrene Patient Disposition: Being Evaluated by Hospitalist Discharge Instructions Interventions: ED Discharge Assessment Last Done: 09/13/18 14:50 The scribe's documentation has been prepared under my direction and personally reviewed by me in its entirety. I confirm that the note above accurately reflects all work, treatment, procedures, and medical decision making performed by me.
[2018-09-13] MEDS: cefTRIAXone SODIUM 2,000 MG in DEXTROSE 5% 50 ML IV SCH (20:51)
[2018-09-13] MEDS: DOCUSATE SODIUM 100 MG CAP PO SCH (20:52)
[2018-09-13] MEDS: METOPROLOL TARTRATE 50 MG TAB PO SCH (20:52)
[2018-09-14 07:48] LABS: Basophils # (auto) 0.02 K/uL (0-0.2); Basophils % (auto) 0.2 %; Eosinophils # (auto) 0.23 K/uL (0-0.5); Eosinophils % (auto) 2.5 %; Hemoglobin 7.4 g/dL (14.0-18.0); Immature Granulocytes # (auto) 0.02 K/uL (0.00-0.02); Immature Granulocytes % (auto) 0.2 %; Lymphocytes % (auto) 18.3 %; Mean Corpuscular Hgb Conc 32.2 g/dL (32-36); Mean Corpuscular Volume 93.5 fL (80-100); Mean Platelet Volume 9.9 fL (7.4-10.4); Monocytes # (auto) 0.44 K/uL (0.11-0.59); Monocytes % (auto) 4.7 %; Neutrophils # (auto) 6.87 K/uL (1.4-6.5); Neutrophils % (auto) 74.1 %; Platelet Count 362 K/uL (130-400); RDW Coefficient of Variation 15.7 % (11.5-14.5); RDW Standard Deviation 53.8 fL (36.4-46.3); Red Blood Count 2.46 M/uL (4.7-6.1); White Blood Count 9.28 K/uL (4.8-10.8)
[2018-09-14 08:22] LABS: RBC Morphology Unremarkable
[2018-09-14 08:27] LABS: BUN Creatinine Ratio 9.3 (10-20); Creatinine Clr Calc Pharmacy 18.4 ml/min; Est GFR (African American) 8.3; Est GFR (Non-African American) 7.2; Potassium 4.4 mmol/L (3.5-5.1)
[2018-09-14] MEDS: DOCUSATE SODIUM 100 MG CAP PO SCH ×2 (08:46→20:36)
[2018-09-14] MEDS: INSULIN ASPART 100 UNITS/ML 3 ML PEN SC SCH ×4 (08:47→22:49)
[2018-09-14] MEDS ORDERED: EPOETIN ALFA 10,000 UNITS/ML VIAL IV ONE (08:47)
[2018-09-14] MEDS ORDERED: SODIUM CHLORIDE 0.9% 1000ML 1,000 ML IV PRN (08:47)
[2018-09-14] MEDS: CALCIUM ACETATE 667 MG CAP PO SCH ×3 (08:48→18:46)
[2018-09-14] MEDS: METOPROLOL TARTRATE 50 MG TAB PO SCH ×2 (08:48→20:36)
[2018-09-14] MEDS: AMLODIPINE BESYLATE 5 MG TAB PO SCH (08:48)
[2018-09-14] MEDS: INSULIN GLARGINE SOLOSTAR 100 UNITS/ML 3 ML PEN SQ SCH (08:49)
[2018-09-14] MEDS: FERROUS SULFATE 325 MG TAB PO SCH ×2 (08:50→18:46)
[2018-09-14] MEDS: LISINOPRIL 40 MG TAB PO SCH (08:50)
[2018-09-14] MEDS ORDERED: CEFTRIAXONE IV SCH (09:00)
[2018-09-14] MEDS ORDERED: SODIUM CHLORIDE 0.9% 250 ML IV PRN (09:06)
--- NOTE | 2018-09-14 12:21 | Nephrology Consultation ---
Date of Consultation September 14, 2018 Assessment & Plan (1) ESRD on dialysis: ESRD on HD via left AVF. Admitted with anemia with blood loss, Hg better after blood transfusion. --HD today as he missed last HD on Friday. --Hb better after PRBC, will need GI w/u --continue antibiotic for osteo, he will follow with his outpt cloth washer, eventually he most likely will need amputation --continue Phos binder, ERI with HD Will follow Thank you for the consultation. (2) Anemia: (3) Osteomyelitis: (4) Hypertension: (5) Secondary hyperparathyroidism of renal origin: (6) Proteinuria: History of Present Illness Reason for Consultation: End-stage renal disease on hemodialysis. Attending Physician: Davis Blanco, DO History of Present Illness Danielito Quinonez Has end-stage renal disease on hemodialysis, hypertension, diabetes , chronic left lower extremity ischemic ulcer and osteomyelitis, admitted to the hospital with anemia and need for blood transfusion. Nephrology consult was requested to manage hemodialysis while inpatient. Electronic medical records including labs and imaging are reviewed in detail during patient's visit. Danielito has left lower extremity chronic nonhealing ulcer and osteomyelitis over last 2 years. He has been following with cloth washer and wound care in [facility]. He was recently admitted to [facility] as he was having ambulatory dysfunction with left foot wound VAC in place. While in there, last week he was found to have hemoglobin 5.9, he was advised to come to ED but he refused. Eventually he received 2 units of blood transfusion as an outpatient. Yesterday he was found to have a pool of blood under his left foot however it was not clear where the bleeding was from and he was sent to ED for further evaluation. On admission his hemoglobin was 6.7. He received 2 units of blood transfusion and hemoglobin improved to 8.4 this morning. He denies any history of GI bleeding, black stool or bright red blood per rectum. Never had EGD or colonoscopy. Has end-stage renal disease secondary to diabetic nephropathy, has been on dialysis on Friday, , Friday at [facility]. His last dialysis was last at [facility], he missed dialysis Friday as he was away at a for a friend. Currently his electrolytes stable, blood pressure slightly elevated but volume status otherwise seems acceptable. He reports feeling much better and feels like he is ready to be discharged to home from rehab. Allergies Allergy/AdvReac Type Severity Reaction Status Date / Time doxycycline Allergy Rash Unverified 09/13/18 11:13 Home Medications Home Medications Medication Instructions Recorded Confirmed Type calcium acetate 2,001 mg PO TIDM #0 10/17/17 09/13/18 History clopidogrel 75 mg PO DAILY #0 tab 10/17/17 09/13/18 History metoprolol tartrate 50 mg PO Q12 #0 tab 10/17/17 09/13/18 History bisacodyl 10 mg VA DAILY PRN 09/08/18 09/13/18 History ceftriaxone 1 dose IV DAILY 09/08/18 09/13/18 History dextrose 50 % in water (D50W) 50 ml IV DIRECTED 09/08/18 09/13/18 History docusate sodium 100 mg PO BID 09/08/18 09/13/18 History ferrous sulfate 325 mg PO BID 09/08/18 09/13/18 History glucagon HCl 1 dose SUBCUT DAILY PRN 09/08/18 09/13/18 History insulin glargine [Lantus U-100 10 unit SUBCUT DAILY 09/08/18 09/13/18 History Insulin] polyethylene glycol 3350 [Miralax] 17 g PO DAILY PRN 09/08/18 09/13/18 History sennosides-docusate sodium 1 tab PO DAILY PRN 09/08/18 09/13/18 History [Senokot-S] vancomycin 1 dose IV DIRECTED 09/08/18 09/13/18 History acetaminophen [Tylenol] 650 mg PO Q4 PRN 09/13/18 09/13/18 History amlodipine [Norvasc] 5 mg PO DAILY 09/13/18 09/13/18 History darbepoetin tulio in polysorbat 1 dose SUBCUT DIRECTED 09/13/18 09/13/18 History [Aranesp (in polysorbate)] dextrose [Glucose Gel] 1 dose PO DIRECTED PRN 09/13/18 09/13/18 History insulin aspart U-100 [Novolog 1 sliding scale dose SUBCUT UD 09/13/18 09/13/18 History U-100 Insulin aspart] lisinopril 40 mg PO DAILY 09/13/18 09/13/18 History Patient History Family History Other Diabetes Family history non-contributory HTN (hypertension) Social History marital status: Single Current Living Situation: Rehab Other Information That Helps Us Care for You: No Feels Safe at Home: Yes Safety Concerns: Feels Safe At This Time Smoking Status: Never smoker Do You Dip or Chew Tobacco: No Hx Alcohol Use: No Hx Substance Use: No Beliefs That Will Affect Care: None Communication Ability: Effective Review of Systems Detail ROS was otherwise unremarkable. Physical Exam 2 Vital Signs (Past 24 Hours): Last Vital Signs Temp 36.7 C 09/14/18 07:45 Pulse 70 09/14/18 07:45 Resp 21 09/14/18 07:45 BP 158/67 H 09/14/18 07:45 Pulse Ox 99 09/14/18 07:45 Physical Exam: GENERAL: middle aged male, AAA x 3, morbidly obese, not in any distress. HEENT: Atraumatic, normocephalic. NECK: Supple, no JVD, no carotid bruit appreciated. ENT: No sinus tenderness MOUTH and THROAT: Moist oral mucosa, RESPIRATORY: Normal breathing efforts, clear to auscultation bilaterally, no wheezes or rales. CARDIOVASCULAR: S1, S2 normal, rate rhythm regular. ABDOMEN: Soft, nontender, positive bowel sound. MUSCULOSKELETAL: No CVA tenderness. No joint swelling, erythema or tenderness. Normal range of motion. SKIN: No skin rash EXTREMITY: left lower extremity wound vac in place NEURO: No gross focal neurological deficit, speech fluent. PSYCHIATRY: Normal mood and judgment
--- NOTE | 2018-09-14 14:41 | Pharmacy Report ---
Pharmacy Abx Dose Short Note - Date of Service September 14, 2018 - Assessment & Plan Assessment 58 year old M receiving vancomycin and Rocephin for continued outpatient treatment of foot wound infection Day # 2 of inpatient antimicrobial therapy. Level with AM labs today is 22 mcg/mL. He is currently receiving dialysis ( ordered for 4.5 hour session) so will require a dose of vancomycin today to prevent subtherapeutic levels. I confirmed with pharmacist at [facility] today that patient received 1500 mg of vancomycin on 09/12 @ 1900. AM vanc level that day was 15.9 mcg/mL. I'm hesitant to give the previous dosing of 1500 mg since the patient's level is slightly above goal today. In addition, unsure if he will be resuming usual dialysis schedule of // tomorrow. Plan Vancomycin * Random level is slightly supratherapeutic but anticipate this dropping from dialysis today * Will give vancomycin 500 mg IV x 1 at 1800 today * Random level again w/ AM labs tomorrow and will re-dose as appropriate to keep levels between 15-20 mcg/mL Rocephin * Not dosed per pharmacy but dosing is appropriate Pharmacy will continue to follow and will adjust dose/frequency as necessary. Thank you.
--- NOTE | 2018-09-14 17:19 | Hospitalist Progress Note ---
Date of Service September 14, 2018 Assessment & Plan (1) Acute blood loss anemia: 2 units given for Hb of 6.7, only up to 7.4 this morning no clear source of bleeding, no further bleeding from foot no melena, no blood in stools will repeat H/H in the morning, type and cross for two more units but hold for now heme occult stools, if positive he will need scopes (2) Wound of foot: wound vac is in place on admission s/p amputation of 5th toe and 5th metatarsal and extensive debridement of foot for underlying infection continue Rocephin and Vanco afebrile, WBC normal wound vac removed today, extensive tissue, worsening infection despite therapy patient needs amputation he wishes to have this done by junior sales assistant, Dr. Meyer will contact her tomorrow to see this week and schedule surgery patient refuses to see a surgeon here because he only trusts his junior sales assistant (3) End-stage renal disease on hemodialysis: consult Dr. 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 his junior sales assistant already told him that it is likely that he will need this amputated defer to his junior sales assistant on follow up check H/H in the morning, transfuse if needed, heme occult stools likely d/c tomorrow, needs to follow up immediately with his junior sales assistant Subjective patient feels fine today, no chest pain, no difficulty breathing, eating well wound care saw his foot, removed wound vac, pictures taken, wound culture obtained discussed with senior tech manufacturing engineering, wound is not appropriate for vac deep infection that is getting worse, they recommend going back to junior sales assistant discussed with patient, he would like to see his junior sales assistant this week discussed with Dr. Israel, she is unsure of why his blood counts are low, she transfused him earlier last week for Hb of 5 no further signs of blood loss he denies dark stools, discussed with him that we need to check stool samples, he agreed HD today, tolerated well reviewed labs, Hb up to 7.4 after two units of PRBC Review of Systems All systems reviewed & are unremarkable except as noted in HPI & below Gastrointestinal: no blood in stools and no melena Integumentary: + wounds (left foot, malodorous, no pain (no sensation)) Physical Exam 2 Vital Signs (Past 24 Hours): Last Vital Signs Temp 36.6 C 09/14/18 13:10 Pulse 63 09/14/18 14:00 Resp 21 09/14/18 07:45 BP 126/62 09/14/18 14:00 Pulse Ox 99 09/14/18 07:45 Constitutional: WD/WN, vitals as above + morbidly obese Eyes: PERRL, conjunctivae normal, anicteric sclerae ENMT: external ear and nose normal, oropharynx normal Neck: trachea midline, no thyromegaly Respiratory: normal respiratory effort, lungs clear to auscultation Cardiovascular: RRR, no murmur, no edema Gastrointestinal (Abdomen): normal bowel sounds, soft, nontender, no hepatosplenomegaly Musculoskeletal: no cyanosis or clubbing, extremities motor strength 5/5 Skin: + wound (examined with RN, tissue throughout wound, foul odor, liquid necrosis of 4th toe) Neurologic: patellar DTR's 2+ bilat, sensation intact and PERRL, EOMI, accommodation nl, no face palsy, no dysarthria + abnormal touch/pain/ proprioception (no pain sensation in feet bilaterally, decreased sensation to light touch) Psychiatric: A+Ox3, euthymic affect Lymphatic: no cervical or axillary lymphadenopathy Results & Data Laboratory Results Laboratory Results - last 24 hr 09/13/18 09/14/18 09/14/18 13:02 07:11 07:11 WBC 9.28 RBC 2.46 L Hgb 7.4 L Hct 23.0 L MCV 93.5 MCH 30.1 MCHC 32.2 RDW Std Deviation 53.8 H RDW Coeff of Dorcas 15.7 H Plt Count 362 MPV 9.9 Immature Gran % (Auto) 0.2 Neut % (Auto) 74.1 Lymph % (Auto) 18.3 [place] % (Auto) 4.7 Eos % (Auto) 2.5 Baso % (Auto) 0.2 Immature Gran # (Auto) 0.02 Neut # (Auto) 6.87 H Lymph # (Auto) 1.70 [place] # (Auto) 0.44 Eos # (Auto) 0.23 Baso # (Auto) 0.02 RBC Morphology Unremarkable Sodium 134 L Potassium 4.4 Chloride 100 Carbon Dioxide 24 Anion Gap 10.0 BUN 70 H Creatinine 7.61 H* D Est Cr Clr Drug Dosing 18.4 Est GFR ( Amer) 8.3 Est GFR (Non-Af Amer) 7.2 BUN/Creatinine Ratio 9.3 L Glucose 110 H POC Glucose Calcium 8.0 L Random Vancomycin Blood Type A Negative Antibody Screen NEGATIVE Crossmatch See Detail 09/14/18 09/14/18 09/14/18 07:11 08:31 11:59 WBC RBC Hgb Hct MCV MCH MCHC RDW Std Deviation RDW Coeff of Dorcas Plt Count MPV Immature Gran % (Auto) Neut % (Auto) Lymph % (Auto) [place] % (Auto) Eos % (Auto) Baso % (Auto) Immature Gran # (Auto) Neut # (Auto) Lymph # (Auto) [place] # (Auto) Eos # (Auto) Baso # (Auto) RBC Morphology Sodium Potassium Chloride Carbon Dioxide Anion Gap BUN Creatinine Est Cr Clr Drug Dosing Est GFR ( Amer) Est GFR (Non-Af Amer) BUN/Creatinine Ratio Glucose POC Glucose 112 H 129 H Calcium Random Vancomycin 22.0 Blood Type Antibody Screen Crossmatch 09/14/18 18:39 WBC RBC Hgb Hct MCV MCH MCHC RDW Std Deviation RDW Coeff of Dorcas Plt Count MPV Immature Gran % (Auto) Neut % (Auto) Lymph % (Auto) [place] % (Auto) Eos % (Auto) Baso % (Auto) Immature Gran # (Auto) Neut # (Auto) Lymph # (Auto) [place] # (Auto) Eos # (Auto) Baso # (Auto) RBC Morphology Sodium Potassium Chloride Carbon Dioxide Anion Gap BUN Creatinine Est Cr Clr Drug Dosing Est GFR ( Amer) Est GFR (Non-Af Amer) BUN/Creatinine Ratio Glucose POC Glucose 89 Calcium Random Vancomycin Blood Type Antibody Screen Crossmatch Medications Administered Current Inpatient Medications Acetaminophen (Tylenol) 650 mg PO Q4H PRN PRN Reason: pain/fever Stop: 10/13/18 15:17 Amlodipine Besylate (Norvasc) 5 mg PO DAILY VIN Stop: 10/14/18 08:59 Last Admin: 09/14/18 08:48 Dose: 5 mg Bisacodyl (Dulcolax) 10 mg MO DAILY PRN PRN Reason: Constipation Stop: 10/13/18 15:17 Calcium Acetate (Phoslo) 2,001 mg PO TIDM [facility] Stop: 10/13/18 16:59 Last Admin: 09/14/18 18:46 Dose: 1,334 mg Docusate Sodium (Colace) 100 mg PO BID [facility] Stop: 10/13/18 20:59 Last Admin: 09/14/18 20:36 Dose: 100 mg Ferrous Sulfate (Feosol) 325 mg PO BIDM [facility] Stop: 10/13/18 16:59 Last Admin: 09/14/18 18:46 Dose: 325 mg Ceftriaxone Sodium 2,000 mg/ (Dextrose) 70 mls @ 140 mls/hr IV Q24H [facility]; Protocol Stop: 09/23/18 17:59 Last Infusion: 09/14/18 19:28 Dose: Infused Sodium Chloride (Nss 250ml) 250 mls @ 15 mls/hr IV .[id number] PRN PRN Reason: For Transfusion Stop: 09/14/18 23:59 Insulin Aspart (Novolog Flexpen) 0 units SC ACHS [facility] Stop: 10/13/18 16:29 Last Admin: 09/14/18 19:35 Dose: 3 units Insulin Glargine (Lantus Solostar Pen) 10 units SQ DAILY [facility] Stop: 10/14/18 08:59 Last Admin: 09/14/18 08:49 Dose: 10 units Lisinopril (Zestril) 40 mg PO DAILY [facility] Stop: 10/14/18 08:59 Last Admin: 09/14/18 08:50 Dose: 40 mg Metoprolol Tartrate (Lopressor) 50 mg PO Q12 [facility] Stop: 10/13/18 20:59 Last Admin: 09/14/18 20:36 Dose: 50 mg Miscellaneous Information (Consult) 1 ea N/A UD PRN PRN Reason: Consult Stop: 10/13/18 16:04 Ondansetron HCl (Zofran) 4 mg IV Q6H PRN PRN Reason: Nausea Stop: 10/13/18 15:17
[2018-09-14] MEDS ORDERED: VANCOMYCIN HCL 500 MG in 0.9 % SODIUM CHLORIDE 100 ML IV ONE (18:00)
[2018-09-14] MEDS: cefTRIAXone SODIUM 2,000 MG in DEXTROSE 5% 50 ML IV SCH (18:48)
[2018-09-15 06:58] LABS: Basophils # (auto) 0.01 K/uL (0-0.2); Basophils % (auto) 0.1 %; Eosinophils # (auto) 0.19 K/uL (0-0.5); Eosinophils % (auto) 2.4 %; Hematocrit (blood only) 22.1 % (42-52); Hemoglobin 7.2 g/dL (14.0-18.0); Immature Granulocytes # (auto) 0.03 K/uL (0.00-0.02); Immature Granulocytes % (auto) 0.4 %; Lymphocytes # (auto) 1.52 K/uL (1.2-3.4); Lymphocytes % (auto) 19.3 %; Mean Corpuscular Hgb Conc 32.6 g/dL (32-36); Mean Corpuscular Volume 92.1 fL (80-100); Mean Platelet Volume 9.4 fL (7.4-10.4); Monocytes # (auto) 0.62 K/uL (0.11-0.59); Monocytes % (auto) 7.9 %; Neutrophils # (auto) 5.52 K/uL (1.4-6.5); Neutrophils % (auto) 69.9 %; Platelet Count 331 K/uL (130-400); RDW Coefficient of Variation 15.8 % (11.5-14.5); White Blood Count 7.89 K/uL (4.8-10.8)
[2018-09-15 07:40] LABS: BUN Creatinine Ratio 7.5 (10-20); Creatinine Clr Calc Pharmacy 28.4 ml/min; Est GFR (African American) 14.3; Est GFR (Non-African American) 12.4; Polychromasia 1+; Potassium 3.9 mmol/L (3.5-5.1)
[2018-09-15] MEDS ORDERED: SODIUM CHLORIDE 0.9% 1000ML 1,000 ML IV PRN (08:22)
[2018-09-15] MEDS ORDERED: SODIUM CHLORIDE 0.9% 250 ML IV PRN ×2 (08:23→09:09)
[2018-09-15] MEDS: METOPROLOL TARTRATE 50 MG TAB PO SCH ×2 (08:41→21:27)
[2018-09-15] MEDS: DOCUSATE SODIUM 100 MG CAP PO SCH ×2 (08:41→21:27)
[2018-09-15] MEDS: CALCIUM ACETATE 667 MG CAP PO SCH ×3 (08:41→17:57)
[2018-09-15] MEDS: FERROUS SULFATE 325 MG TAB PO SCH ×2 (08:41→18:06)
[2018-09-15] MEDS: LISINOPRIL 40 MG TAB PO SCH (08:42)
[2018-09-15] MEDS: AMLODIPINE BESYLATE 5 MG TAB PO SCH (08:42)
[2018-09-15] MEDS: INSULIN GLARGINE SOLOSTAR 100 UNITS/ML 3 ML PEN SQ SCH (08:47)
[2018-09-15] MEDS: INSULIN ASPART 100 UNITS/ML 3 ML PEN SC SCH ×4 (08:48→20:48)
--- NOTE | 2018-09-15 10:03 | Nephrology Progress Note ---
Date of Service September 15, 2018 Assessment & Plan (1) ESRD on dialysis: ESRD on HD via left AVF. Admitted with anemia with blood loss, Hb dropped again even after blood transfusion. --HD today as his regualr schedule, 2 PRBC during HD --waitng on GI w/u --continue antibiotic for osteo, he will follow with his outpt client architect, eventually he most likely will need amputation. Wound vac was removed yesterday --continue Phos binder, ERI with HD Will follow (2) Anemia: (3) Osteomyelitis: (4) Hypertension: (5) Secondary hyperparathyroidism of renal origin: (6) Proteinuria: Subjective Danielito was seen and examined this am, denies SOB, CP. No active bleding but Hb dropped again. BP , volume status decent. Physical Exam 2 Vital Signs (Past 24 Hours): Last Vital Signs Temp 36.6 C 09/15/18 09:49 Pulse 75 09/15/18 09:49 Resp 18 09/15/18 09:49 BP 184/101 H 09/15/18 09:49 Pulse Ox 100 09/14/18 23:03 Constitutional: WD/WN, vitals as above + ill appearing, + morbidly obese and + disheveled Respiratory: normal respiratory effort, lungs clear to auscultation Cardiovascular: RRR, no murmur, no edema Neurologic: moves all extremities and awake Psychiatric: A+Ox3, euthymic affect
[2018-09-15 10:15] LABS: Bilirubin Direct < 0.1 mg/dl (0-0.2); Bilirubin,Total 0.5 mg/dl (0.2-1)
[2018-09-15] MEDS: cefTRIAXone SODIUM 2,000 MG in DEXTROSE 5% 50 ML IV SCH (17:50)
[2018-09-15] MEDS ORDERED: VANCOMYCIN HCL 500 MG in 0.9 % SODIUM CHLORIDE 100 ML IV ONE (18:00)
--- NOTE | 2018-09-15 22:38 | Hospitalist Progress Note ---
Date of Service September 15, 2018 Assessment & Plan (1) Acute blood loss anemia: 2 units given for Hb of 6.7 on admission, only up to 7.4 on 09/14 no clear source of bleeding, no further bleeding from foot no melena, no blood in stools, heme occult ordered but no sample given bilirubin, LDH normal, argues against hemolysis Hb down to 7.2 this morning, two units PRBC given after HD, that makes 4 total for admission repeat H/H tomorrow, if it continues to drop will be forced to consult GI for work up even without heme occult patient is asymptomatic from the anemia (2) Wound of foot: wound vac is in place on admission s/p amputation of 5th toe and 5th metatarsal and extensive debridement of foot for underlying infection continue Rocephin and Vanco afebrile, WBC normal, currently no signs of sepsis but warned patient that he could develop sepsis without intervention wound vac removed 09/14, extensive tissue, worsening infection despite therapy cultures growing two separate GN rods, follow up final results patient needs amputation, this was recommendation of Dr. Parsons, food manager that has followed the foot for some time at [place] will ask Dr. Cuevas to see the patient for his recommendations hold on imaging unless he would like CT or MRI requested records from Vascular surgeon at [facility], patient says he had angiogram and angioplasty prior to surgery need to determine degree of vascular disease so level of amputation can be determined patient reluctant to the idea of getting amputation told him that the infection is being held in check with IV antibiotics, however , he could develop sepsis despite the abx he said he will listen to recommendations from Dr. Cuevas (3) End-stage renal disease on hemodialysis: consult Dr. Israel HD today, tolerated well repeat BMP tomorrow (4) Diabetes: continue Levemir, Novolog SS ordered has complications of nephropathy and neuropathy diabetic diet monitor for hypoglycemia, no episodes (5) Secondary hyperparathyroidism of renal origin: continue Calcium acetate TID meals 45 minutes spent on patient today, discussing plan with him, talking on the phone with Dr. Parsons in [place] Subjective patient feeling fine today, went for HD and was given two units of PRBC after for Hb of 7.2 today unsure of why Hb continues to drip, no evidence of active bleeding from foot no bowel movements for two days, would expect melena with a patient requiring 4 units of PRBC in the past three days heme occult ordered but he has not been able to provide sample checked LDH and bilirubin, normal, argues against hemolysis at this point called patient's food manager Dr. Parsons at [facility]. She recommends amputation of the foot. She said that she had recommended this to him initially but he was reluctant, wants aggressive debridement and try to save the foot, she said that this did not work. She said that she recommended he see an orthopedic surgeon here at [facility] because she cannot perform the amputation at [place]. I discussed this with the patient, he does not like the thought of amputation but will listen to what ortho recommends. Other than the foot infection, patient feels great, no pain, eating well, no chest pain, no dyspnea. Review of Systems All systems reviewed & are unremarkable except as noted in HPI & below Integumentary: + wounds (left foot, foul odor, tissue, no pain) Physical Exam 2 Vital Signs (Past 24 Hours): Last Vital Signs Temp 37.4 C 09/15/18 15:19 Pulse 73 09/15/18 21:23 Resp 16 09/15/18 15:19 BP 123/66 09/15/18 21:23 Pulse Ox 96 09/15/18 15:19 Constitutional: WD/WN, vitals as above + morbidly obese Eyes: PERRL, conjunctivae normal, anicteric sclerae ENMT: external ear and nose normal, oropharynx normal Neck: trachea midline, no thyromegaly Respiratory: normal respiratory effort, lungs clear to auscultation Cardiovascular: RRR, no murmur, no edema Gastrointestinal (Abdomen): normal bowel sounds, soft, nontender, no hepatosplenomegaly Musculoskeletal: no cyanosis or clubbing, extremities motor strength 5/5 Skin: + wound (examined with RN, tissue throughout wound, foul odor, liquid necrosis of 4th toe) Neurologic: patellar DTR's 2+ bilat, sensation intact and PERRL, EOMI, accommodation nl, no face palsy, no dysarthria + abnormal touch/pain/ proprioception (no pain sensation in feet bilaterally, decreased sensation to light touch) Psychiatric: A+Ox3, euthymic affect Lymphatic: no cervical or axillary lymphadenopathy Results & Data Laboratory Results Laboratory Results - last 24 hr 09/13/18 09/15/18 09/15/18 13:02 06:44 06:44 WBC 7.89 RBC 2.40 L Hgb 7.2 L Hct 22.1 L MCV 92.1 MCH 30.0 MCHC 32.6 RDW Std Deviation 53.0 H RDW Coeff of Dorcas 15.8 H Plt Count 331 MPV 9.4 Immature Gran % (Auto) 0.4 Neut % (Auto) 69.9 Lymph % (Auto) 19.3 [place] % (Auto) 7.9 Eos % (Auto) 2.4 Baso % (Auto) 0.1 Immature Gran # (Auto) 0.03 H Neut # (Auto) 5.52 Lymph # (Auto) 1.52 [place] # (Auto) 0.62 H Eos # (Auto) 0.19 Baso # (Auto) 0.01 Polychromasia 1+ Peripher Smr Path Cons Sodium 133 L Potassium 3.9 Chloride 96 L Carbon Dioxide 28 Anion Gap 9.0 BUN 38 H Creatinine 4.87 H* D Est Cr Clr Drug Dosing 28.4 Est GFR ( Amer) 14.3 Est GFR (Non-Af Amer) 12.4 BUN/Creatinine Ratio 7.5 L Glucose 96 POC Glucose Calcium 8.0 L Total Bilirubin Direct Bilirubin Lactate Dehydrogenase Random Vancomycin Blood Type A Negative Antibody Screen NEGATIVE Crossmatch See Detail 09/15/18 09/15/18 09/15/18 06:44 07:55 09:23 WBC RBC Hgb Hct MCV MCH MCHC RDW Std Deviation RDW Coeff of Dorcas Plt Count MPV Immature Gran % (Auto) Neut % (Auto) Lymph % (Auto) [place] % (Auto) Eos % (Auto) Baso % (Auto) Immature Gran # (Auto) Neut # (Auto) Lymph # (Auto) [place] # (Auto) Eos # (Auto) Baso # (Auto) Polychromasia Peripher Smr Path Cons Cancelled Sodium Potassium Chloride Carbon Dioxide Anion Gap BUN Creatinine Est Cr Clr Drug Dosing Est GFR ( Amer) Est GFR (Non-Af Amer) BUN/Creatinine Ratio Glucose POC Glucose 89 Calcium Total Bilirubin Direct Bilirubin Lactate Dehydrogenase Random Vancomycin 19.4 Blood Type Antibody Screen Crossmatch 09/15/18 09/15/18 09/15/18 09:23 09:23 11:53 WBC RBC Hgb Hct MCV MCH MCHC RDW Std Deviation RDW Coeff of Dorcas Plt Count MPV Immature Gran % (Auto) Neut % (Auto) Lymph % (Auto) [place] % (Auto) Eos % (Auto) Baso % (Auto) Immature Gran # (Auto) Neut # (Auto) Lymph # (Auto) [place] # (Auto) Eos # (Auto) Baso # (Auto) Polychromasia Peripher Smr Path Cons Sodium Potassium Chloride Carbon Dioxide Anion Gap BUN Creatinine Est Cr Clr Drug Dosing Est GFR ( Amer) Est GFR (Non-Af Amer) BUN/Creatinine Ratio Glucose POC Glucose 122 H Calcium Total Bilirubin 0.5 Direct Bilirubin < 0.1 Lactate Dehydrogenase 146 Random Vancomycin Blood Type Antibody Screen Crossmatch 09/15/18 09/15/18 16:50 20:44 WBC RBC Hgb Hct MCV MCH MCHC RDW Std Deviation RDW Coeff of Dorcas Plt Count MPV Immature Gran % (Auto) Neut % (Auto) Lymph % (Auto) [place] % (Auto) Eos % (Auto) Baso % (Auto) Immature Gran # (Auto) Neut # (Auto) Lymph # (Auto) [place] # (Auto) Eos # (Auto) Baso # (Auto) Polychromasia Peripher Smr Path Cons Sodium Potassium Chloride Carbon Dioxide Anion Gap BUN Creatinine Est Cr Clr Drug Dosing Est GFR ( Amer) Est GFR (Non-Af Amer) BUN/Creatinine Ratio Glucose POC Glucose 148 H 117 H Calcium Total Bilirubin Direct Bilirubin Lactate Dehydrogenase Random Vancomycin Blood Type Antibody Screen Crossmatch Medications Administered Current Inpatient Medications Acetaminophen (Tylenol) 650 mg PO Q4H PRN PRN Reason: pain/fever Stop: 10/13/18 15:17 Amlodipine Besylate (Norvasc) 5 mg PO DAILY FOR[facility], [facility]1983 Stop: 10/14/18 08:59 Last Admin: 09/15/18 08:42 Dose: 5 mg Bisacodyl (Dulcolax) 10 mg LA DAILY PRN PRN Reason: Constipation Stop: 10/13/18 15:17 Calcium Acetate (Phoslo) 2,001 mg PO TIDM [facility], [facility]1983 Stop: 10/13/18 16:59 Last Admin: 09/15/18 17:57 Dose: 1,334 mg Docusate Sodium (Colace) 100 mg PO BID VIN Stop: 10/13/18 20:59 Last Admin: 09/15/18 21:27 Dose: 100 mg Ferrous Sulfate (Feosol) 325 mg PO BIDM [facility]1983 Stop: 10/13/18 16:59 Last Admin: 09/15/18 18:06 Dose: 325 mg Ceftriaxone Sodium 2,000 mg/ (Dextrose) 70 mls @ 140 mls/hr IV Q24H [facility], [facility]; Protocol Stop: 09/23/18 17:59 Last Infusion: 09/15/18 18:23 Dose: Infused Sodium Chloride (Nss 250ml) 250 mls @ 15 mls/hr IV .[id number] PRN PRN Reason: For Transfusion Stop: 10/15/18 08:22 Sodium Chloride (Nss 250ml) 250 mls @ 15 mls/hr IV .[id number] PRN PRN Reason: For Transfusion Stop: 10/15/18 09:08 Insulin Aspart (Novolog Flexpen) 0 units SC ACHS [facility] Stop: 10/13/18 16:29 Last Admin: 09/15/18 20:48 Dose: Not Given Insulin Glargine (Lantus Solostar Pen) 10 units SQ DAILY [facility] Stop: 10/14/18 08:59 Last Admin: 09/15/18 08:47 Dose: 10 units Lisinopril (Zestril) 40 mg PO DAILY [facility] Stop: 10/14/18 08:59 Last Admin: 09/15/18 08:42 Dose: 40 mg Metoprolol Tartrate (Lopressor) 50 mg PO Q12 [facility] Stop: 10/13/18 20:59 Last Admin: 09/15/18 21:27 Dose: 50 mg Miscellaneous Information (Consult) 1 ea N/A UD PRN PRN Reason: Consult Stop: 10/13/18 16:04 Ondansetron HCl (Zofran) 4 mg IV Q6H PRN PRN Reason: Nausea Stop: 10/13/18 15:17
[2018-09-16 08:19] LABS: Basophils # (auto) 0.01 K/uL (0-0.2); Basophils % (auto) 0.1 %; Eosinophils % (auto) 2.5 %; Hemoglobin 8.2 g/dL (14.0-18.0); Immature Granulocytes # (auto) 0.02 K/uL (0.00-0.02); Immature Granulocytes % (auto) 0.3 %; Lymphocytes # (auto) 1.96 K/uL (1.2-3.4); Lymphocytes % (auto) 24.6 %; Mean Corpuscular Hgb Conc 31.5 g/dL (32-36); Mean Corpuscular Volume 93.2 fL (80-100); Mean Platelet Volume 9.7 fL (7.4-10.4); Monocytes # (auto) 0.51 K/uL (0.11-0.59); Monocytes % (auto) 6.4 %; Neutrophils # (auto) 5.27 K/uL (1.4-6.5); Neutrophils % (auto) 66.1 %; Platelet Count 332 K/uL (130-400); RDW Standard Deviation 54.6 fL (36.4-46.3); Red Blood Count 2.79 M/uL (4.7-6.1); White Blood Count 7.97 K/uL (4.8-10.8)
[2018-09-16 08:53] LABS: RBC Morphology Unremarkable
[2018-09-16 08:54] LABS: BUN Creatinine Ratio 8.1 (10-20); Creatinine Clr Calc Pharmacy 26.7 ml/min; Est GFR (African American) 13.4; Est GFR (Non-African American) 11.5; Potassium 3.8 mmol/L (3.5-5.1)
[2018-09-16] MEDS: CALCIUM ACETATE 667 MG CAP PO SCH ×3 (09:20→18:19)
[2018-09-16] MEDS: DOCUSATE SODIUM 100 MG CAP PO SCH ×3 (09:21→19:17)
[2018-09-16] MEDS: AMLODIPINE BESYLATE 5 MG TAB PO SCH (09:21)
[2018-09-16] MEDS: METOPROLOL TARTRATE 50 MG TAB PO SCH ×2 (09:21→19:18)
[2018-09-16] MEDS: INSULIN GLARGINE SOLOSTAR 100 UNITS/ML 3 ML PEN SQ SCH (09:22)
[2018-09-16] MEDS: INSULIN ASPART 100 UNITS/ML 3 ML PEN SC SCH ×4 (09:23→21:05)
[2018-09-16] MEDS: LISINOPRIL 40 MG TAB PO SCH (09:27)
[2018-09-16] MEDS: FERROUS SULFATE 325 MG TAB PO SCH ×2 (10:19→18:25)
--- NOTE | 2018-09-16 10:53 | Nephrology Progress Note ---
Date of Service September 16, 2018 Assessment & Plan (1) ESRD on dialysis: ESRD on HD via left AVF. Admitted with anemia with blood loss, Hb dropped again even after blood transfusion. --had HD yesterday as his regualr schedule, had 2 PRBC during HD --waitng on GI w/u --continue antibiotic for osteo, he is agreeable to see ortho here for possible evaluation and need for left foot amputation for chronic non healing ulcer and osteo. --continue Phos binder, ERI with HD Will follow (2) Anemia: (3) Osteomyelitis: (4) Hypertension: (5) Secondary hyperparathyroidism of renal origin: (6) Proteinuria: Subjective Danielito was seen and examined this am, denies SOB, CP. No active bleeding, Hb improved after PRBC yesterday., volume status decent. Physical Exam Vital Signs (Past 24 Hours): Last Vital Signs Temp 36.5 C 09/16/18 07:46 Pulse 68 09/16/18 07:46 Resp 16 09/16/18 07:46 BP 153/66 H 09/16/18 07:46 Pulse Ox 98 09/16/18 07:46 Constitutional: WD/WN, vitals as above + ill appearing, + morbidly obese and + disheveled Respiratory: normal respiratory effort, lungs clear to auscultation Cardiovascular: RRR, no murmur, no edema Neurologic: moves all extremities and awake Psychiatric: A+Ox3, euthymic affect
--- NOTE | 2018-09-16 16:45 | Orthopedic Consultation ---
Date of Consultation September 16, 2018 Assessment & Plan (1) Wound of foot: He was seen and examined by Dr. Cuevas today. He has multiple large wounds on the left foot and necrosis of the 4th toe. The most likely surgery to help him is below knee amputation. This was discussed with him today and he understands. He is not ready to make that decision yet at this time and is going to think it over. Please call if patient does elect to proceed with surgery, which would be below knee amputation. Thank you for this consult and please call with further questions. History of Present Illness Reason for Consultation: left foot wound, eval for amputation Attending Physician: Wes Abdullahi MD, PhD, [facility] History of Present Illness Mr. Quinonez is a 58 y/o diabetic male, we were consulted to see for possible amputation of the left foot. He had recent left 5th toe amputation and 5th metatarsal resection approx 2 weeks ago done elsewhere. He had a wound vac on and has been getting antibiotics. He had a right foot wound last year that did eventually heal. Complete history was reviewed and please refer to admission h & p. Allergies Allergy/AdvReac Type Severity Reaction Status Date / Time doxycycline Allergy Rash Unverified 09/13/18 11:13 Home Medications Home Medications Medication Instructions Recorded Confirmed Type calcium acetate 2,001 mg PO TIDM #0 10/17/17 09/13/18 History clopidogrel 75 mg PO DAILY #0 tab 10/17/17 09/13/18 History metoprolol tartrate 50 mg PO Q12 #0 tab 10/17/17 09/13/18 History bisacodyl 10 mg DE DAILY PRN 09/08/18 09/13/18 History ceftriaxone 1 dose IV DAILY 09/08/18 09/13/18 History dextrose 50 % in water (D50W) 50 ml IV DIRECTED 09/08/18 09/13/18 History docusate sodium 100 mg PO BID 09/08/18 09/13/18 History ferrous sulfate 325 mg PO BID 09/08/18 09/13/18 History glucagon HCl 1 dose SUBCUT DAILY PRN 09/08/18 09/13/18 History insulin glargine [Lantus U-100 10 unit SUBCUT DAILY 09/08/18 09/13/18 History Insulin] polyethylene glycol 3350 [Miralax] 17 g PO DAILY PRN 09/08/18 09/13/18 History sennosides-docusate sodium 1 tab PO DAILY PRN 09/08/18 09/13/18 History [Senokot-S] vancomycin 1 dose IV DIRECTED 09/08/18 09/13/18 History acetaminophen [Tylenol] 650 mg PO Q4 PRN 09/13/18 09/13/18 History amlodipine [Norvasc] 5 mg PO DAILY 09/13/18 09/13/18 History darbepoetin tulio in polysorbat 1 dose SUBCUT DIRECTED 09/13/18 09/13/18 History [Aranesp (in polysorbate)] dextrose [Glucose Gel] 1 dose PO DIRECTED PRN 09/13/18 09/13/18 History insulin aspart U-100 [Novolog 1 sliding scale dose SUBCUT UD 09/13/18 09/13/18 History U-100 Insulin aspart] lisinopril 40 mg PO DAILY 09/13/18 09/13/18 History Patient History Family History Other Diabetes Family history non-contributory HTN (hypertension) Social History Communication Ability: Effective Beliefs That Will Affect Care: None marital status: Single Current Living Situation: Rehab Other Information That Helps Us Care for You: No Feels Safe at Home: Yes Safety Concerns: Feels Safe At This Time Smoking Status: Never smoker Hx Alcohol Use: No Hx Substance Use: No Physical Exam Vital Signs (Past 24 Hours): Last Vital Signs Temp 36.6 C 09/16/18 15:58 Pulse 67 09/16/18 15:58 Resp 18 09/16/18 15:58 BP 169/69 H 09/16/18 15:58 Pulse Ox 99 09/16/18 15:58 Musculoskeletal: On exam of the left foot: he has multiple large open wounds on the foot, including lateral and plantar. His 5th toe has been amputated. His 4th toe is necrotic.
[2018-09-16] MEDS: cefTRIAXone SODIUM 2,000 MG in DEXTROSE 5% 50 ML IV SCH (18:28)
--- NOTE | 2018-09-16 19:11 | Hospitalist Progress Note ---
Date of Service September 16, 2018 Assessment & Plan (1) Acute blood loss anemia: (2) Wound of foot: (3) End-stage renal disease on hemodialysis: (4) Diabetes: (5) Secondary hyperparathyroidism of renal origin: 58-year-old white male admitted because of left lower extremity chronic wound, Acute blood loss anemia: Hemoglobin improved after transfusion no clear source of bleeding, no further bleeding from foot no melena, no blood in stools, heme occult ordered but no sample given bilirubin, LDH normal, argues against hemolysis Unit 4 total blood transfusion since admission, continue follow-up H&H, GI for work up even without heme occult Left foot wound s/p amputation of 5th toe and 5th metatarsal and extensive debridement of foot for underlying infection continue Rocephin and Vanco wound vac removed 09/14, extensive tissue, worsening infection despite therapy cultures growing two separate GN rods, follow up final results patient needs amputation, this was recommendation of Dr. Parsons, jewelry setter that has followed the foot for some time at [place] [facility] is to follow-up with him End-stage renal disease on hemodialysis: consult Dr. Israel HD today, tolerated well Diabetic, secondary pleural hypothyroidism, continue current medication, Accelerated hypertension, add hydralazine as needed, DVT prophylaxis is covered Subjective Feeling generalized weakness, and feeling frustrated of left lower foot wounds and infections, No appetite, no fever and chill, Review of Systems Respiratory: no cough, sputum, wheezing, or dyspnea on exertion Cardiac: No chest pain, No orthopnea, No PND, No claudication, No palpitations, Abdomen: No pain, No nausea, No vomiting, No diarrhea, No constipation, No GI bleeding : No dysuria, No urinary frequency, No incontinence, No hematuria Neurologic: No paralysis, No weakness, No numbness/tingling, No vertigo, No balance problems Physical Exam Vital Signs (Past 24 Hours): Last Vital Signs Temp 36.6 C 09/16/18 15:58 Pulse 67 09/16/18 15:58 Resp 18 09/16/18 15:58 BP 169/69 H 09/16/18 15:58 Pulse Ox 99 09/16/18 15:58 Physical Exam: General Appearance: Morbid obesity, looks tired, WD/WN, no apparent distress, Eyes: normal inspection, PERRL, EOMI, sclerae normal ENT: normal ENT inspection, hearing grossly normal, pharynx normal Neck: supple, no adenopathy, thyroid normal, no JVD, no carotid bruits, trachea midline Respiratory/Chest: chest non-tender, significantly decreased breath sounds, no respiratory distress, no accessory muscle use, breath sounds, rales, wheezing Cardiovascular: regular rate, rhythm, no JVD, no murmur Abdomen: normal bowel sounds, non tender, soft, no organomegaly, Extremities: normal range of motion, non-tender, left foot: he has multiple large open wounds on the foot, His 5th toe has been amputated. His 4th toe is necrotic. Neurologic/Psychiatric: treasurer II-XII nml as tested, no motor/sensory deficits, alert, normal mood/affect, oriented x 3 Results & Data Laboratory Results Laboratory Results - last 24 hr 09/15/18 09/16/18 09/16/18 20:44 07:50 07:50 WBC 7.97 RBC 2.79 L Hgb 8.2 L Hct 26.0 L MCV 93.2 MCH 29.4 MCHC 31.5 L RDW Std Deviation 54.6 H RDW Coeff of Dorcas 16.0 H Plt Count 332 MPV 9.7 Immature Gran % (Auto) 0.3 Neut % (Auto) 66.1 Lymph % (Auto) 24.6 [place] % (Auto) 6.4 Eos % (Auto) 2.5 Baso % (Auto) 0.1 Immature Gran # (Auto) 0.02 Neut # (Auto) 5.27 Lymph # (Auto) 1.96 [place] # (Auto) 0.51 Eos # (Auto) 0.20 Baso # (Auto) 0.01 RBC Morphology Unremarkable Sodium 134 L Potassium 3.8 Chloride 96 L Carbon Dioxide 28 Anion Gap 9.0 BUN 41 H Creatinine 5.15 H* Est Cr Clr Drug Dosing 26.7 Est GFR ( Amer) 13.4 Est GFR (Non-Af Amer) 11.5 BUN/Creatinine Ratio 8.1 L Glucose 102 H POC Glucose 117 H Calcium 8.0 L Random Vancomycin 09/16/18 09/16/18 09/16/18 07:50 08:11 12:05 WBC RBC Hgb Hct MCV MCH MCHC RDW Std Deviation RDW Coeff of Dorcas Plt Count MPV Immature Gran % (Auto) Neut % (Auto) Lymph % (Auto) [place] % (Auto) Eos % (Auto) Baso % (Auto) Immature Gran # (Auto) Neut # (Auto) Lymph # (Auto) [place] # (Auto) Eos # (Auto) Baso # (Auto) RBC Morphology Sodium Potassium Chloride Carbon Dioxide Anion Gap BUN Creatinine Est Cr Clr Drug Dosing Est GFR ( Amer) Est GFR (Non-Af Amer) BUN/Creatinine Ratio Glucose POC Glucose 106 H 146 H Calcium Random Vancomycin 18.4 09/16/18 17:17 WBC RBC Hgb Hct MCV MCH MCHC RDW Std Deviation RDW Coeff of Dorcas Plt Count MPV Immature Gran % (Auto) Neut % (Auto) Lymph % (Auto) [place] % (Auto) Eos % (Auto) Baso % (Auto) Immature Gran # (Auto) Neut # (Auto) Lymph # (Auto) [place] # (Auto) Eos # (Auto) Baso # (Auto) RBC Morphology Sodium Potassium Chloride Carbon Dioxide Anion Gap BUN Creatinine Est Cr Clr Drug Dosing Est GFR ( Amer) Est GFR (Non-Af Amer) BUN/Creatinine Ratio Glucose POC Glucose 138 H Calcium Random Vancomycin Microbiology 09/14/18 10:30 Foot,Left Gram Stain - Final 09/14/18 10:30 Foot,Left Deep Wound Culture - Preliminary Gram negative bacilli Gram negative bacilli#2
[2018-09-16] MEDS ORDERED: HydrALAZINE HCL 20 MG/ML VIAL IV PRN (19:13)
[2018-09-17 07:22] LABS: Basophils # (auto) 0.01 K/uL (0-0.2); Basophils % (auto) 0.1 %; Eosinophils # (auto) 0.21 K/uL (0-0.5); Eosinophils % (auto) 2.4 %; Hematocrit (blood only) 27.7 % (42-52); Hemoglobin 8.7 g/dL (14.0-18.0); Immature Granulocytes # (auto) 0.02 K/uL (0.00-0.02); Immature Granulocytes % (auto) 0.2 %; Lymphocytes # (auto) 1.69 K/uL (1.2-3.4); Mean Corpuscular Hgb Conc 31.4 g/dL (32-36); Mean Corpuscular Volume 93.9 fL (80-100); Mean Platelet Volume 9.7 fL (7.4-10.4); Monocytes # (auto) 0.52 K/uL (0.11-0.59); Monocytes % (auto) 5.8 %; Neutrophils # (auto) 6.46 K/uL (1.4-6.5); Neutrophils % (auto) 72.5 %; Platelet Count 332 K/uL (130-400); RDW Coefficient of Variation 16.1 % (11.5-14.5); RDW Standard Deviation 54.4 fL (36.4-46.3); Red Blood Count 2.95 M/uL (4.7-6.1); White Blood Count 8.91 K/uL (4.8-10.8)
[2018-09-17 07:49] LABS: RBC Morphology Unremarkable
[2018-09-17 08:06] LABS: BUN Creatinine Ratio 8.9 (10-20); Calcium 8.1 mg/dl (8.5-10.1); Creatinine Clr Calc Pharmacy 21.9 ml/min; Est GFR (African American) 10.5; Est GFR (Non-African American) 9.1; Magnesium 2.4 mg/dl (1.8-2.4); Phosphorus 5.1 mg/dl (2.5-4.9); Potassium 4.2 mmol/L (3.5-5.1)
[2018-09-17] MEDS ORDERED: SODIUM CHLORIDE 0.9% 1000ML 1,000 ML IV PRN (08:36)
[2018-09-17] MEDS ORDERED: EPOETIN ALFA 10,000 UNITS/ML VIAL IV SCH (09:00)
[2018-09-17] MEDS: FERROUS SULFATE 325 MG TAB PO SCH ×2 (09:23→18:06)
[2018-09-17] MEDS: CALCIUM ACETATE 667 MG CAP PO SCH ×3 (09:23→18:06)
[2018-09-17] MEDS: DOCUSATE SODIUM 100 MG CAP PO SCH ×2 (09:24→21:36)
[2018-09-17] MEDS: INSULIN GLARGINE SOLOSTAR 100 UNITS/ML 3 ML PEN SQ SCH (09:24)
[2018-09-17] MEDS: INSULIN ASPART 100 UNITS/ML 3 ML PEN SC SCH ×4 (09:25→21:36)
--- NOTE | 2018-09-17 10:04 | Nephrology Progress Note ---
Date of Service September 17, 2018 Assessment & Plan (1) ESRD on dialysis: ESRD on HD via left AVF. Admitted with anemia with blood loss, received 2 units of PRBC, pending GI evaluation, hemoglobin stable. Has chronic edema lower extremity is however and osteomyelitis. The seen by Orthopedic surgery and a currently a to have left below-knee amputation however patient still undecided. -- HD today as his regualr schedule --waitng on GI w/u --continue Phos binder, ERI with HD --the main Reason patient is not able to make decision about surgery is after surgery he will not be able to the work and support himself. Will consult social service to see whether any help that can be provided to the patient during that period of time. It will help him make a decision regarding amputation. Will follow (2) Anemia: (3) Osteomyelitis: (4) Hypertension: (5) Secondary hyperparathyroidism of renal origin: (6) Proteinuria: Subjective Danielito was seen and examined this am, denies SOB, CP. No active bleeding, Hb improved after PRBC, has been stable. She volume status decent. Physical Exam Vital Signs (Past 24 Hours): Last Vital Signs Temp 37.1 C 09/17/18 08:04 Pulse 66 09/17/18 08:04 Resp 16 09/17/18 08:04 BP 119/68 09/17/18 08:04 Pulse Ox 97 09/17/18 08:04 Constitutional: WD/WN, vitals as above + ill appearing, + morbidly obese and + disheveled Respiratory: normal respiratory effort, lungs clear to auscultation Cardiovascular: RRR, no murmur, no edema Neurologic: moves all extremities and awake Psychiatric: A+Ox3, euthymic affect
--- NOTE | 2018-09-17 13:51 | Pharmacy Report ---
Pharmacy Abx Dose Short Note - Date of Service September 17, 2018 - Assessment & Plan Assessment 58 year old M receiving vancomycin and Rocephin for continued outpatient treatment of foot wound infection Day # 5 of inpatient antimicrobial therapy. Wound cultures positive for Gm negative bacteria. Plan Vancomycin * No random vancomycin level ordered for today, will utilize level yesterday as patient did not have HD yesterday. Expect level today would have been similar * Patient to have dialysis today - anticipate level after dialysis closer to 12 mcg/ml (goal ~15-20 mcg/ml) * Will redose with vancomycin 1000 mg x 1 today after dialysis to achieve peak closer to ~30 mcg/ml * Not sure if patient to get dialysis tomorrow per nephrology notes - will order random level tomorrow am to assist with further dosing * Ortho is recommending below knee amputation however patient undecided per MD notes * Per provider, wound grossly infected in appearance - plans to consult ID for further antibiotic recommendations so would like to continue broad coverage Pharmacy will continue to follow and will adjust dose/frequency as necessary. Thank you.
[2018-09-17] MEDS: METOPROLOL TARTRATE 50 MG TAB PO SCH ×2 (14:34→21:36)
[2018-09-17] MEDS: AMLODIPINE BESYLATE 5 MG TAB PO SCH (14:34)
[2018-09-17] MEDS: LISINOPRIL 40 MG TAB PO SCH (14:34)
[2018-09-17] MEDS ORDERED: VANCOMYCIN HCL 1,000 MG in SODIUM CHLORIDE 0.9% 250 ML IV ONE (16:00)
--- NOTE | 2018-09-17 17:30 | Hospitalist Progress Note ---
Date of Service September 17, 2018 Assessment & Plan (1) Acute blood loss anemia: (2) Wound of foot: (3) End-stage renal disease on hemodialysis: (4) Diabetes: (5) Secondary hyperparathyroidism of renal origin: 58-year-old white male admitted because of left lower extremity chronic wound, Left foot wound s/p amputation of 5th toe and 5th metatarsal and extensive debridement of foot for underlying infection wound vac removed 09/14, extensive tissue, worsening infection despite ther apy ortho recs amputation too there was recommendation of Dr. Parsons, it service continuity supervisor that has followed the foot for some time at [facility] Acute blood loss anemia: Hemoglobin improved after transfusion no clear source of bleeding, no further bleeding from foot no melena, no blood in stools, heme occult ordered but no sample given bilirubin, LDH normal, argues against hemolysis Unit 4 total blood transfusion since admission, continue follow-up H&H, GI for work up even without heme occult End-stage renal disease on hemodialysis: consult Dr. Israel , HD today, tolerated well Diabetic, secondary pleural hypothyroidism, continue current medication, Accelerated hypertension, add hydralazine as needed,We will follow-up Suicidal ideation and anxiety from overwhelming life: One-to-one sitter, suicidal precaution, psychiatry consultation DVT prophylaxis is covered Subjective Soft patient in dialysis, He was feeling frustrated, He worried about the loss of his foot from amp , whcich will cause a lot of difficulty and is not Later nursing staff report patient was feeling overwhelmed and has suicidal ideation Review of Systems Constitutional: Positive weakness, or fatigue Respiratory: no cough, sputum, wheezing, or dyspnea on exertion Cardiac: No chest pain, No orthopnea, No PND, No claudication, No palpitations, Abdomen: No pain, No nausea, No vomiting, No diarrhea, No constipation, No GI bleeding Musculoskeletal: No joint pain, No muscle pain, No swelling, No calf pain, No problem reported : No dysuria, No urinary frequency, No incontinence, No hematuria Neurologic: No paralysis, No weakness, No numbness/tingling, Psychiatric: Anxious, suicidal as mentioned in the above left foot in dress Physical Exam Vital Signs (Past 24 Hours): Last Vital Signs Temp 36.9 C 09/17/18 14:15 Pulse 70 09/17/18 14:15 Resp 16 09/17/18 08:04 BP 159/80 H 09/17/18 14:38 Pulse Ox 97 09/17/18 08:04 Physical Exam: General Appearance: Morbid obesity, looks tired/Mild anxious, WD/WN, no apparent distress, Eyes: normal inspection, PERRL, EOMI, sclerae normal ENT: normal ENT inspection, hearing grossly normal, pharynx normal Neck: supple, no adenopathy, thyroid normal, no JVD, no carotid bruits, trachea midline Respiratory/Chest: chest non-tender, significantly decreased breath sounds, no respiratory distress, no accessory muscle use, breath sounds, rales, wheezing Cardiovascular: regular rate, rhythm, no JVD, no murmur Abdomen: normal bowel sounds, non tender, soft, no organomegaly, Extremities: normal range of motion, non-tender, left foot: he has multiple large open wounds on the foot, His 5th toe has been amputated. His 4th toe is necrotic. Neurologic/Psychiatric: informaticist II-XII nml as tested, no motor/sensory deficits, alert, normal mood/affect, oriented x 3 Results & Data Laboratory Results Laboratory Results - last 24 hr 09/16/18 09/17/18 09/17/18 20:26 06:59 06:59 WBC 8.91 RBC 2.95 L Hgb 8.7 L Hct 27.7 L MCV 93.9 MCH 29.5 MCHC 31.4 L RDW Std Deviation 54.4 H RDW Coeff of Dorcas 16.1 H Plt Count 332 MPV 9.7 Immature Gran % (Auto) 0.2 Neut % (Auto) 72.5 Lymph % (Auto) 19.0 [place] % (Auto) 5.8 Eos % (Auto) 2.4 Baso % (Auto) 0.1 Immature Gran # (Auto) 0.02 Neut # (Auto) 6.46 Lymph # (Auto) 1.69 [place] # (Auto) 0.52 Eos # (Auto) 0.21 Baso # (Auto) 0.01 RBC Morphology Unremarkable Sodium 133 L Potassium 4.2 Chloride 96 L Carbon Dioxide 25 Anion Gap 12.0 H BUN 56 H Creatinine 6.28 H* D Est Cr Clr Drug Dosing 21.9 Est GFR ( Amer) 10.5 Est GFR (Non-Af Amer) 9.1 BUN/Creatinine Ratio 8.9 L Glucose 105 H POC Glucose 165 H Calcium 8.1 L Phosphorus 5.1 H Magnesium 2.4 09/17/18 09/17/18 08:01 14:20 WBC RBC Hgb Hct MCV MCH MCHC RDW Std Deviation RDW Coeff of Dorcas Plt Count MPV Immature Gran % (Auto) Neut % (Auto) Lymph % (Auto) [place] % (Auto) Eos % (Auto) Baso % (Auto) Immature Gran # (Auto) Neut # (Auto) Lymph # (Auto) [place] # (Auto) Eos # (Auto) Baso # (Auto) RBC Morphology Sodium Potassium Chloride Carbon Dioxide Anion Gap BUN Creatinine Est Cr Clr Drug Dosing Est GFR ( Amer) Est GFR (Non-Af Amer) BUN/Creatinine Ratio Glucose POC Glucose 106 H 96 Calcium Phosphorus Magnesium Microbiology 09/14/18 10:30 Foot,Left Gram Stain - Final 09/14/18 10:30 Foot,Left Deep Wound Culture - Preliminary Gram negative bacilli Alcaligenes faecalis
[2018-09-17] MEDS: cefTRIAXone SODIUM 2,000 MG in DEXTROSE 5% 50 ML IV SCH (18:14)
--- NOTE | 2018-09-18 08:40 | Nephrology Progress Note ---
Date of Service September 18, 2018 Assessment & Plan (1) ESRD on dialysis: ESRD on HD via left AVF. Admitted with anemia with blood loss, received 2 units of PRBC, pending GI evaluation, hemoglobin stable. Has chronic edema lower extremity is however and osteomyelitis. The seen by Orthopedic surgery and a currently a to have left below-knee amputation however patient still undecided. BP, volume status, electrolyte stable. --continue Phos binder, ERI with HD --continue IHD TTS -- social service will see whether any help that can be provided to the patient during that period of time. It will help him make a decision regarding amputation. Will follow (2) Anemia: (3) Osteomyelitis: (4) Hypertension: (5) Secondary hyperparathyroidism of renal origin: (6) Proteinuria: Subjective Danielito was seen and examined this am, denies SOB, CP. No active bleeding, Hb improved after PRBC, has been stable. His volume status decent. Has been frustrated and suicidal yesterday and not able to make decision about amputation yet Physical Exam Vital Signs (Past 24 Hours): Last Vital Signs Temp 37.1 C 09/17/18 23:56 Pulse 73 09/17/18 23:56 Resp 20 09/17/18 23:56 BP 157/65 H 09/17/18 23:56 Pulse Ox 97 09/17/18 23:56 Constitutional: WD/WN, vitals as above + ill appearing, + morbidly obese and + disheveled Respiratory: normal respiratory effort, lungs clear to auscultation Cardiovascular: RRR, no murmur, no edema Neurologic: moves all extremities and awake Psychiatric: A+Ox3, euthymic affect
--- NOTE | 2018-09-18 08:53 | Pharmacy Report ---
Pharmacy Abx Dose Short Note - Date of Service September 18, 2018 - Assessment & Plan Assessment 58 year old M receiving vancomycin and Rocephin for continued outpatient treatment of foot wound infection Day # 6 of inpatient antimicrobial therapy. Wound cultures positive for Gm negative bacteria. Plan Vancomycin * Random vancomycin level this am therapeutic at ~18.4 mcg/ml (goal 15-20 mcg/ml) * Per nephrology note, plan is to resume HD on ,,Fri schedule * Next dialysis session will be 3/2 - can utilize random vancomycin level from today to assist with dosing after dialysis tomorrow * Ortho is recommending below knee amputation however patient undecided per MD notes * Per provider, wound grossly infected in appearance - continue broad spectrum antibiotics -ID is now consulted to follow patient Pharmacy will continue to follow and will adjust dose/frequency as necessary. Thank you.
[2018-09-18 09:37] LABS: BUN Creatinine Ratio 7.8 (10-20); Calcium 8.1 mg/dl (8.5-10.1); Creatinine Clr Calc Pharmacy 27.6 ml/min; Est GFR (African American) 14.1; Est GFR (Non-African American) 12.1; Magnesium 2.2 mg/dl (1.8-2.4); Potassium 4.2 mmol/L (3.5-5.1)
[2018-09-18] MEDS: CALCIUM ACETATE 667 MG CAP PO SCH ×3 (10:03→17:22)
[2018-09-18] MEDS: DOCUSATE SODIUM 100 MG CAP PO SCH ×2 (10:04→21:24)
[2018-09-18] MEDS: LISINOPRIL 40 MG TAB PO SCH (10:04)
[2018-09-18] MEDS: METOPROLOL TARTRATE 50 MG TAB PO SCH ×3 (10:04→21:24)
[2018-09-18] MEDS: AMLODIPINE BESYLATE 5 MG TAB PO SCH (10:05)
[2018-09-18] MEDS: FERROUS SULFATE 325 MG TAB PO SCH ×2 (10:05→17:22)
[2018-09-18] MEDS: INSULIN ASPART 100 UNITS/ML 3 ML PEN SC SCH ×4 (10:07→21:23)
[2018-09-18] MEDS: INSULIN GLARGINE SOLOSTAR 100 UNITS/ML 3 ML PEN SQ SCH (10:07)
--- NOTE | 2018-09-18 11:14 | Psychiatric Consultation ---
Date of Consultation September 18, 2018 Impression / Recommendations Impression 58-year-old male seen to address statements made with suicidal implication. Pt adamantly denies to this provider any ideation, plan, or intent to act. He convincingly denies depressive symptoms and states he has never struggled with suicidal ideation or had mental health treatment previously. Pt admits he does not care for himself well, but he denies a desire to harm himself or end his life. Pt is aware of the gravity of his "joke", and states he knows he should be more cautious of his humor in this setting. Extensively reviewed patient's thoughts on his ability to cope with this procedure and recovery, and patient denies overwhelming concerns. He does not feel that he will require counseling to address the major life change. He is, however, agreeable to accepting a list of local therapists and is willing to reach out for support should he be experiencing SI or desire to harm himself. Pt was accepting of time spent during the interview, but does not feel that he requires anything further from our service. No indication for inpatient psychiatric admission at this time. Dr. Kennedy Ramos was directly involved in review and discussion of the patient's case and participated in medical decision making regarding treatment recommendations. (1) Stress and adjustment reaction: 09/18 - Pt denies statements implying suicidality were made with seriousness. States he is not, and has not been suicidal. - Admits he is frustrated and overwhelmed with the idea of surgery and post- op rehab and lifestyle changes, frustration is reportedly expressed using "humor" - After discussing context of statements with patient, he does not meet criteria for inpatient psychiatric admission, also does not meet criteria for any psychiatric diagnosis at present. No indication for initiation of psychotropic medications. Risk Factors Assessment Male: Yes : Yes Do You Have Access To A Gun?: Yes (concepcion) Health Problems: Yes Mental Health Diagnoses: No Substance Use Disorders: No Previous Attempt: No Family History of Suicide: No Previous Psychiatric Hospitalization: No Hopelessness: No Protective Factors Assessment Congregation Beliefs: No : No Responsible for Young Children: No Employed: Yes Stable Relationships: No Supportive Family: Yes CPT Code 53882 Psych History Identifying Data 58-year-old male admitted medically due to injury to his left foot resulting in significant blood loss. Pt is s/p amputation of his left 5th metatarsal 2 weeks ago. Recommendation for amputation of the foot has been made, and patient was reportedly hesitant to make the decision without adequate information. In his frustration, it is reported he made statements of suicidal context, and psychiatric consultation was requested. Chief Complaint "I'm not really sure what happened to be honest with you." History of Present Illness Michael Quinonez Jr. is a 58-year-old male with PMH of poorly-controlled diabetes with nephropathy, neuropathy, and peripheral vascular disease. ESRD on dialysis for the past 4 years. Pt has a history of operations to address ulcers and infections of his metatarsals, most recent was 2 weeks ago, when 5th left metatarsal was amputated. It is the current recommendation that the patient's left foot be amputated due to chronic infections. While discussion options in order to gain consent for surgery, it was reported that patient's frustration had increased. Nursing reported reference to suicidal ideation during a conversation about patient's options, and patient was placed on 1:1 observation and psychiatric consultation was requested. Pt is seen today of psychiatric consult service. He is A&Ox3, sitting upright on edge of bed, eating lunch. When informed of this provider's need to address statements made last evening, patient states "have a seat, I'm an open book." Pt was asked to relay events occurring last evening, stating "it was a joke, a bad joke." Pt states he had been feeling pressured into making a decision about surgery, and had expressed concerns regarding the recovery process (rehabilitation, work-status, mobility). He states, "I was frustrated, frustrated and impatient. They kept going over options, 'one option is this, one option is that.' So I said, 'well, you know there is another option." Pt states he was referring to a suicidal act, but states he did not outwardly express language of desire to harm himself. He denies any desire or intent to end his life, and reports he is simply looking for more information to make an informed decision. "It was a bad joke, I know I can't say that, not here." We reviewed his concerns about recovery, stating he was happy that a national account representative from [facility] would be coming to speak with him. This provider asked the patient if he felt he would be able to manage the transition with regard to his mental health. Pt states, "I don't have concerns, not as far as mood, I can deal with that. It's the fact I won't be able to work, how will I pay bills, but those are all things I'm going to figure out. Pt denies history of SI or previous psychiatric treatment. Pt was inquired about his thoughts regarding possible development of SI given his life-changing decision and transition, and he denies any concerns. He mentions several supports and states he talks fr equently with individuals and finds "venting" to be helpful for him. He does not feel his is at risk of harm to himself, and adamantly denies SI for the duration of our conversation. Past Psychiatric History Previous Psych History: None Do You Have Access To A Gun?: Yes (concepcion) History of Previous Suicide Attempt: No Past Medication Trials: None Allergies Allergy/AdvReac Type Severity Reaction Status Date / Time doxycycline Allergy Rash Unverified 09/13/18 11:13 Home Medications Home Medications Medication Instructions Recorded Confirmed Type calcium acetate 2,001 mg PO TIDM #0 10/17/17 09/13/18 History clopidogrel 75 mg PO DAILY #0 tab 10/17/17 09/13/18 History metoprolol tartrate 50 mg PO Q12 #0 tab 10/17/17 09/13/18 History bisacodyl 10 mg NV DAILY PRN 09/08/18 09/13/18 History ceftriaxone 1 dose IV DAILY 09/08/18 09/13/18 History dextrose 50 % in water (D50W) 50 ml IV DIRECTED 09/08/18 09/13/18 History docusate sodium 100 mg PO BID 09/08/18 09/13/18 History ferrous sulfate 325 mg PO BID 09/08/18 09/13/18 History glucagon HCl 1 dose SUBCUT DAILY PRN 09/08/18 09/13/18 History insulin glargine [Lantus U-100 10 unit SUBCUT DAILY 09/08/18 09/13/18 History Insulin] polyethylene glycol 3350 [Miralax] 17 g PO DAILY PRN 09/08/18 09/13/18 History sennosides-docusate sodium 1 tab PO DAILY PRN 09/08/18 09/13/18 History [Senokot-S] vancomycin 1 dose IV DIRECTED 09/08/18 09/13/18 History acetaminophen [Tylenol] 650 mg PO Q4 PRN 09/13/18 09/13/18 History amlodipine [Norvasc] 5 mg PO DAILY 09/13/18 09/13/18 History darbepoetin tulio in polysorbat 1 dose SUBCUT DIRECTED 09/13/18 09/13/18 History [Aranesp (in polysorbate)] dextrose [Glucose Gel] 1 dose PO DIRECTED PRN 09/13/18 09/13/18 History insulin aspart U-100 [Novolog 1 sliding scale dose SUBCUT UD 09/13/18 09/13/18 History U-100 Insulin aspart] lisinopril 40 mg PO DAILY 09/13/18 09/13/18 History Family History None Substance Abuse History Admits last alcoholic beverage was 4 years ago. 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) Marital Status: Single Beliefs That Will Affect Care: None History of Legal Problems: None Psychological Trauma History Comment: None Patient History Medical History Amputated toe of left foot Amputated toe of right foot Acute kidney injury (Acute) Anasarca (Acute) Bilateral cellulitis of lower leg (Acute) ESRD (end stage renal disease) on dialysis (Acute) Gangrene (Acute) Gangrene (Acute) HTN (hypertension) (Acute) Hyperparathyroidism due to end stage renal disease on dialysis (Acute) Metabolic acidosis (Acute) Nephrotic syndrome (Acute) Obesity (Acute) Osteomyelitis (Acute) Proteinuria (Acute) Surgical History History of angioplasty of peripheral vessel S/P arteriovenous (AV) fistula creation Status post incision and drainage left foot wound Family History Other Diabetes Family history non-contributory HTN (hypertension) Social History Communication Ability: Effective Beliefs That Will Affect Care: None marital status: Single Current Living Situation: Rehab Other Information That Helps Us Care for You: No Feels Safe at Home: Yes Safety Concerns: Feels Safe At This Time Smoking Status: Never smoker Hx Alcohol Use: No Hx Substance Use: No Physical Exam Psychiatric Orientation: alert, oriented x 3 and cooperative Apperance: + disheveled Eye Contact: good eye contact Motor Behavior: no abnormal motor movements (observed while seated on edge of bed) Speech: normal rate/rhythm/volume of speech Affect: euthymic affect; no depressed affect and no tearful affect "Impatient, but not depressed. Not anxious" Thought Process: goal directed thought process, linear/logical thought process and clear/coherent thought process Thought Content: reality based without delusions Suicidal Thoughts: denies suicidal thoughts, denies suicidal plan and denies stephens icidal intent admits to statements made suggesting suicidality - reports they were made in jest. Homicidal Thoughts: denies homicidal thoughts Hallucinations: no auditory hallucinations and no visual hallucinations Cognition: recent memory grossly intact, remote memory grossly intact, attention grossly intact and language grossly intact Estimated Intelligence: consistent with education level Insight: + fair insight Judgement: + fair judgement Vital Signs (Past 24 Hours) Last Vital Signs Temp 36.7 C 09/18/18 08:39 Pulse 75 09/18/18 08:39 Resp 18 09/18/18 08:39 BP 159/65 H 09/18/18 08:39 Pulse Ox 97 09/18/18 08:39 Review of Systems Constitutional: denied Cardiovascular: denied Respiratory: denied Gastrointestinal: denied Neurological: reports numbness of feet Psychiatric: denies symptoms other than stated above Total of at least 10 systems reviewed, pertinent positives as above and in HPI. Results & Data Medications Administered Amlodipine Besylate (Norvasc) 5 mg PO DAILY VIN Stop: 10/14/18 08:59 Last Admin: 09/18/18 10:05 Dose: 5 mg Documented by: [id number] Admin: 09/17/18 14:34 Dose: 5 mg Documented by: [id number] Admin: 09/16/18 09:21 Dose: 5 mg Documented by: [id number] Admin: 09/15/18 08:42 Dose: 5 mg Documented by: [id number] Admin: 09/14/18 08:48 Dose: 5 mg Documented by: [id number] Calcium Acetate (Phoslo) 2,001 mg PO TIDM VIN Stop: 10/13/18 16:59 Last Admin: 09/18/18 10:03 Dose: 1,334 mg Documented by: [id number] Admin: 09/17/18 18:06 Dose: 1,334 mg Documented by: [id number] Admin: 09/17/18 14:35 Dose: 1,334 mg Documented by: [id number] Admin: 09/17/18 09:23 Dose: 1,334 mg Documented by: [id number] Admin: 09/16/18 18:19 Dose: 1,334 mg Documented by: [id number] Admin: 09/16/18 13:08 Dose: 1,334 mg Documented by: [id number] Admin: 09/16/18 09:20 Dose: 1,334 mg Documented by: [id number] Admin: 09/15/18 17:57 Dose: 1,334 mg Documented by: [id number] Admin: 09/15/18 14:19 Dose: Not Given Documented by: [id number] Admin: 09/15/18 08:41 Dose: 2,001 mg Documented by: [id number] Admin: 09/14/18 18:46 Dose: 1,334 mg Documented by: [id number] Admin: 09/14/18 12:08 Dose: 1,334 mg Documented by: [id number] Admin: 09/14/18 08:48 Dose: 1,334 mg Documented by: [id number] Admin: 09/13/18 18:26 Dose: 1,334 mg Documented by: [id number] Docusate Sodium (Colace) 100 mg PO BID VIN Stop: 10/16/18 10:14 Last Admin: 09/18/18 10:04 Dose: 100 mg Documented by: [id number] Admin: 09/17/18 21:36 Dose: 100 mg Documented by: [id number] Admin: 09/17/18 09:24 Dose: 100 mg Documented by: [id number] Admin: 09/16/18 19:17 Dose: 100 mg Documented by: [id number] Admin: 09/16/18 10:20 Dose: Not Given Documented by: [id number] Ferrous Sulfate (Feosol) 325 mg PO BIDM [facility] Stop: 10/13/18 16:59 Last Admin: 09/18/18 10:05 Dose: 325 mg Documented by: [id number] Admin: 09/17/18 18:06 Dose: 325 mg Documented by: [id number] Admin: 09/17/18 09:23 Dose: 325 mg Documented by: [id number] Admin: 09/16/18 18:25 Dose: 325 mg Documented by: [id number] Admin: 09/16/18 10:19 Dose: 325 mg Documented by: [id number] Admin: 09/15/18 18:06 Dose: 325 mg Documented by: [id number] Admin: 09/15/18 08:41 Dose: 325 mg Documented by: [id number] Admin: 09/14/18 18:46 Dose: 325 mg Documented by: [id number] Admin: 09/14/18 08:50 Dose: 325 mg Documented by: [id number] Admin: 09/13/18 18:26 Dose: 325 mg Documented by: [id number] Ceftriaxone Sodium 2,000 mg/ (Dextrose) 70 mls @ 140 mls/hr IV Q24H VIN; Protocol Stop: 09/23/18 17:59 Last Infusion: 09/17/18 19:09 Dose: 0 mls/hr Documented by: [id number] Infusion: 09/17/18 18:26 Dose: 140 mls/hr Documented by: [id number] Admin: 09/17/18 18:14 Dose: 70 mls/hr Documented by: [id number] Infusion: 09/16/18 19:11 Dose: 0 mls/hr Documented by: [id number] Admin: 09/16/18 18:28 Dose: 70 mls/hr Documented by: [id number] Infusion: 09/15/18 18:23 Dose: 0 mls/hr Documented by: [id number] Admin: 09/15/18 17:50 Dose: 140 mls/hr Documented by: [id number] Infusion: 09/14/18 19:28 Dose: 0 mls/hr Documented by: [id number] Admin: 09/14/18 18:48 Dose: 140 mls/hr Documented by: [id number] Infusion: 09/13/18 21:52 Dose: 0 mls/hr Documented by: [id number] Admin: 09/13/18 20:51 Dose: 140 mls/hr Documented by: [id number] Insulin Aspart (Novolog Flexpen) 0 units SC ACHS VIN Stop: 10/13/18 16:29 Last Admin: 09/18/18 10:07 Dose: Not Given Documented by: [id number] Cosigned by: [id number] Admin: 09/17/18 21:36 Dose: Not Given Documented by: [id number] Cosigned by: [id number] Admin: 09/17/18 18:15 Dose: 5 units Documented by: [id number] Cosigned by: [id number] Admin: 09/17/18 13:57 Dose: Not Given Documented by: [id number] Cosigned by: [id number] Admin: 09/17/18 09:25 Dose: 5 units Documented by: [id number] Cosigned by: [id number] Admin: 09/16/18 21:05 Dose: 3 units Documented by: [id number] Cosigned by: [id number] Admin: 09/16/18 18:20 Dose: 5 units Documented by: [id number] Cosigned by: [id number] Admin: 09/16/18 13:07 Dose: 6 units Documented by: [id number] Cosigned by: [id number] Admin: 09/16/18 09:23 Dose: 5 units Documented by: [id number] Cosigned by: [id number] Admin: 09/15/18 20:48 Dose: Not Given Documented by: [id number] Cosigned by: [id number] Admin: 09/15/18 18:02 Dose: 6 units Documented by: [id number] Cosigned by: [id number] Admin: 09/15/18 14:20 Dose: 4 units Documented by: [id number] Cosigned by: [id number] Admin: 09/15/18 08:48 Dose: 1 units Documented by: [id number] Cosigned by: [id number] Admin: 09/14/18 22:49 Dose: Not Given Documented by: [id number] Cosigned by: [id number] Admin: 09/14/18 19:35 Dose: 3 units Documented by: [id number] Cosigned by: [id number] Admin: 09/14/18 12:10 Dose: 5 units Documented by: [id number] Cosigned by: [id number] Admin: 09/14/18 08:47 Dose: 4 units Documented by: [id number] Cosigned by: [id number] Admin: 09/13/18 21:17 Dose: Not Given Documented by: [id number] Cosigned by: [id number] Admin: 09/13/18 18:25 Dose: 5 units Documented by: [id number] Cosigned by: [id number] Insulin Glargine (Lantus Solostar Pen) 10 units SQ DAILY VIN Stop: 10/14/18 08:59 Last Admin: 09/18/18 10:07 Dose: 10 units Documented by: [id number] Cosigned by: [id number] Admin: 09/17/18 09:24 Dose: 10 units Documented by: [id number] Cosigned by: [id number] Admin: 09/16/18 09:22 Dose: 10 units Documented by: [id number] Cosigned by: [id number] Admin: 09/15/18 08:47 Dose: 10 units Documented by: [id number] Cosigned by: [id number] Admin: 09/14/18 08:49 Dose: 10 units Documented by: [id number] Cosigned by: [id number] Lisinopril (Zestril) 40 mg PO DAILY VIN Stop: 10/14/18 08:59 Last Admin: 09/18/18 10:04 Dose: 40 mg Documented by: [id number] Admin: 09/17/18 14:34 Dose: 40 mg Documented by: [id number] Admin: 09/16/18 09:27 Dose: 40 mg Documented by: [id number] Admin: 09/15/18 08:42 Dose: 40 mg Documented by: [id number] Admin: 09/14/18 08:50 Dose: 40 mg Documented by: [id number] Metoprolol Tartrate (Lopressor) 50 mg PO Q12 VIN Stop: 10/13/18 20:59 Last Admin: 09/18/18 10:04 Dose: 50 mg Documented by: [id number] Admin: 09/17/18 21:36 Dose: 50 mg Documented by: [id number] Admin: 09/17/18 14:34 Dose: 50 mg Documented by: [id number] Admin: 09/16/18 19:18 Dose: 50 mg Documented by: [id number] Admin: 09/16/18 09:21 Dose: 50 mg Documented by: [id number] Admin: 09/15/18 21:27 Dose: 50 mg Documented by: [id number] Admin: 09/15/18 08:41 Dose: 50 mg Documented by: [id number] Admin: 09/14/18 20:36 Dose: 50 mg Documented by: [id number] Admin: 09/14/18 08:48 Dose: 50 mg Documented by: [id number] Admin: 09/13/18 20:52 Dose: 50 mg Documented by: [id number]
--- NOTE | 2018-09-18 14:16 | Infectious Disease Consult ---
Date of Consultation September 18, 2018 Assessment & Plan (1) Wound of foot: change to imipenem final cultures pending. Suspect he will need surgery but he would like to try IV abx for now. BKA would be curative procedure, states he understands this but would like to try IV through weekend and if no improvement may consider surgery at that time. continue local wound care. will change to renal dosed imipenem. (2) Gangrene: History of Present Illness Attending Physician: Wes Abdullahi MD, PhD, [facility] pt admitted with bleeding from left foot wound, found to be anemic. Has followed with oupt podiatry for foot ulcers, saw ortho during this hospital stay and bka was suggested, he is currentlly refusing. states he was told 2 years ago that he would need a right bka and infection improved. he was placed on IV vanco and ct x. tolerating well. h/o ckd, creat today 4.9. wbc 8.9. vanco level today 18. wound culture from 09/14 growing a GNR, not yet identified and Alcaligenes faecalis. states he realized he may need bka at some point but would like to try a course of abx since this improved previous infection of right leg. states dressing already changed today, refused take down, states continued drainage and bleeding from wound, denies pain, no f/c. no abd pain, no n/v/d, no cp, sob, cough, conteh. tolerating abx. Allergies Allergy/AdvReac Type Severity Reaction Status Date / Time doxycycline Allergy Rash Unverified 09/13/18 11:13 Home Medications Home Medications Medication Instructions Recorded Confirmed Type calcium acetate 2,001 mg PO TIDM #0 10/17/17 09/13/18 History clopidogrel 75 mg PO DAILY #0 tab 10/17/17 09/13/18 History metoprolol tartrate 50 mg PO Q12 #0 tab 10/17/17 09/13/18 History bisacodyl 10 mg MN DAILY PRN 09/08/18 09/13/18 History ceftriaxone 1 dose IV DAILY 09/08/18 09/13/18 History dextrose 50 % in water (D50W) 50 ml IV DIRECTED 09/08/18 09/13/18 History docusate sodium 100 mg PO BID 09/08/18 09/13/18 History ferrous sulfate 325 mg PO BID 09/08/18 09/13/18 History glucagon HCl 1 dose SUBCUT DAILY PRN 09/08/18 09/13/18 History insulin glargine [Lantus U-100 10 unit SUBCUT DAILY 09/08/18 09/13/18 History Insulin] polyethylene glycol 3350 [Miralax] 17 g PO DAILY PRN 09/08/18 09/13/18 History sennosides-docusate sodium 1 tab PO DAILY PRN 09/08/18 09/13/18 History [Senokot-S] vancomycin 1 dose IV DIRECTED 09/08/18 09/13/18 History acetaminophen [Tylenol] 650 mg PO Q4 PRN 09/13/18 09/13/18 History amlodipine [Norvasc] 5 mg PO DAILY 09/13/18 09/13/18 History darbepoetin tulio in polysorbat 1 dose SUBCUT DIRECTED 09/13/18 09/13/18 History [Aranesp (in polysorbate)] dextrose [Glucose Gel] 1 dose PO DIRECTED PRN 09/13/18 09/13/18 History insulin aspart U-100 [Novolog 1 sliding scale dose SUBCUT UD 09/13/18 09/13/18 History U-100 Insulin aspart] lisinopril 40 mg PO DAILY 09/13/18 09/13/18 History Patient History Medical History Amputated toe of left foot Amputated toe of right foot Acute kidney injury (Acute) Anasarca (Acute) Bilateral cellulitis of lower leg (Acute) ESRD (end stage renal disease) on dialysis (Acute) Gangrene (Acute) Gangrene (Acute) HTN (hypertension) (Acute) Hyperparathyroidism due to end stage renal disease on dialysis (Acute) Metabolic acidosis (Acute) Nephrotic syndrome (Acute) Obesity (Acute) Osteomyelitis (Acute) Proteinuria (Acute) Surgical History History of angioplasty of peripheral vessel S/P arteriovenous (AV) fistula creation Status post incision and drainage left foot wound Family History Other Diabetes Family history non-contributory HTN (hypertension) Social History Communication Ability: Effective Beliefs That Will Affect Care: None marital status: Single Current Living Situation: Rehab Other Information That Helps Us Care for You: No Feels Safe at Home: Yes Safety Concerns: Feels Safe At This Time Smoking Status: Never smoker Hx Alcohol Use: No Hx Substance Use: No Review of Systems all remaining ros reviewed and are negative Physical Exam Vital Signs (Past 24 Hours): Last Vital Signs Temp 36.7 C 09/18/18 08:39 Pulse 75 09/18/18 08:39 Resp 18 09/18/18 08:39 BP 159/65 H 09/18/18 08:39 Pulse Ox 97 09/18/18 08:39 Constitutional: WD/WN, vitals as above Eyes: PERRL, conjunctivae normal, anicteric sclerae ENMT: external ear and nose normal, oropharynx normal Neck: normal visual inspection Respiratory: normal respiratory effort, lungs clear to auscultation Cardiovascular: RRR, no murmur, no edema Gastrointestinal (Abdomen): normal bowel sounds, soft, nontender, no hepatosplenomegaly Musculoskeletal: no cyanosis or clubbing, extremities motor strength 5/5 Skin: no rashes, warm and dry left foot dressing intact, gangrenous changed noted, foul odor from wound Psychiatric: A+Ox3, euthymic affect Results & Data Laboratory Results Microbiology 09/14/18 10:30 Foot,Left Gram Stain - Final 09/14/18 10:30 Foot,Left Deep Wound Culture - Preliminary Gram negative bacilli Alcaligenes faecalis
[2018-09-18] MEDS: IMIPENEM/CILASTATIN SODIUM 200 MG in DEXTROSE 5% 100 ML IV SCH ×2 (16:22→21:23)
--- NOTE | 2018-09-18 17:40 | Hospitalist Progress Note ---
Date of Service September 18, 2018 Assessment & Plan (1) Acute blood loss anemia: (2) Wound of foot: (3) End-stage renal disease on hemodialysis: (4) Diabetes: (5) Secondary hyperparathyroidism of renal origin: 58-year-old white male admitted because of left lower extremity chronic wound, Left foot wound s/p amputation of 5th toe and 5th metatarsal and extensive debridement of foot for underlying infection wound vac removed 09/14, extensive tissue, worsening infection despite therapy ortho recs amputation too there was recommendation of Dr. Parsons, food writer that has followed the foot for some time at [place] wound culture showed: Gram negative bacilli, Alcaligenes faecalis Infectious disease input appreciated, changed to imipenem final cultures pending. he would like to try IV abx for now. BKA would be curative procedure, Acute blood loss anemia: Hemoglobin improved after transfusion, today's hemoglobin 8.7 from 8.2 yesterday, which is stable, no clear source of bleeding, no further bleeding from foot no melena, no blood in stools, End-stage renal disease on hemodialysis: consulted Dr. Israel , HD cont Diabetic, secondary pleural hypothyroidism, continue current medication, Accelerated hypertension, add hydralazine as needed, blood pressure better controlled, we will follow-up Suicidal ideation and anxiety from overwhelming life: Psychiatry input appreciated, discontinued one-to-one sitter, suicidal precaution DVT prophylaxis is covered Subjective no more axious or frustrated, worried about the loss of his foot from amp , whcich will cause a lot of difficulty in his life no more suicidal ideation, actually he denied he made the statement seriously Review of Systems Constitutional: Positive weakness, or fatigue Respiratory: no cough, sputum, wheezing, or dyspnea on exertion Cardiac: No chest pain, No orthopnea, No PND, No claudication, No palpitations, Abdomen: No pain, No nausea, No vomiting, No diarrhea, No constipation, No GI bleeding Musculoskeletal: No joint pain, No muscle pain, No swelling, No calf pain, No problem reported : No dysuria, No urinary frequency, No incontinence, No hematuria Neurologic: No paralysis, No weakness, No numbness/tingling, Psychiatric: Anxious, suicidal as mentioned in the above left foot in dress Physical Exam Vital Signs (Past 24 Hours): Last Vital Signs Temp 36.9 C 09/18/18 15:20 Pulse 66 09/18/18 15:20 Resp 18 09/18/18 15:20 BP 134/70 09/18/18 15:20 Pulse Ox 95 09/18/18 15:20 Physical Exam: General Appearance: Morbid obesity, looks anxious, WD/WN, no apparent distress, Eyes: normal inspection, PERRL, EOMI, sclerae normal ENT: normal ENT inspection, hearing grossly normal, pharynx normal Neck: supple, no adenopathy, thyroid normal, no JVD, no carotid bruits, trachea midline Respiratory/Chest: chest non-tender, significantly decreased breath sounds, no respiratory distress, no accessory muscle use, breath sounds, rales, wheezing Cardiovascular: regular rate, rhythm, no JVD, no murmur Abdomen: normal bowel sounds, non tender, soft, no organomegaly, Extremities: normal range of motion, non-tender, left foot: he has multiple large open wounds on the foot with yellow with drainage and placement, His 5th toe has been amputated. His 4th toe is necrotic. Neurologic/Psychiatric: director human services II-XII nml as tested, no motor/sensory deficits, alert, normal mood/affect, oriented x 3 Results & Data Laboratory Results Laboratory Results - last 24 hr 09/17/18 09/17/18 09/18/18 17:09 20:25 06:04 Sodium 134 L Potassium 4.2 Chloride 97 L Carbon Dioxide 31 Anion Gap 5.0 BUN 39 H Creatinine 4.94 H* D Est Cr Clr Drug Dosing 27.6 Est GFR ( Amer) 14.1 Est GFR (Non-Af Amer) 12.1 BUN/Creatinine Ratio 7.8 L Glucose 92 POC Glucose 133 H 136 H Calcium 8.1 L Magnesium 2.2 Random Vancomycin 09/18/18 09/18/18 09/18/18 06:04 06:06 08:22 Sodium Potassium Chloride Carbon Dioxide Anion Gap BUN Creatinine Est Cr Clr Drug Dosing Est GFR ( Amer) Est GFR (Non-Af Amer) BUN/Creatinine Ratio Glucose POC Glucose 104 H Calcium Magnesium Cancelled Random Vancomycin 18.4 09/18/18 09/18/18 12:21 17:02 Sodium Potassium Chloride Carbon Dioxide Anion Gap BUN Creatinine Est Cr Clr Drug Dosing Est GFR ( Amer) Est GFR (Non-Af Amer) BUN/Creatinine Ratio Glucose POC Glucose 129 H 144 H Calcium Magnesium Random Vancomycin Microbiology 09/14/18 10:30 Foot,Left Gram Stain - Final 09/14/18 10:30 Foot,Left Deep Wound Culture - Preliminary Gram negative bacilli Alcaligenes faecalis
[2018-09-19] MEDS: IMIPENEM/CILASTATIN SODIUM 200 MG in DEXTROSE 5% 100 ML IV SCH ×4 (03:52→21:40)
[2018-09-19] MEDS ORDERED: SODIUM CHLORIDE 0.9% 1000ML 1,000 ML IV PRN (07:00)
[2018-09-19] MEDS: INSULIN ASPART 100 UNITS/ML 3 ML PEN SC SCH ×4 (09:00→21:21)
[2018-09-19] MEDS: INSULIN GLARGINE SOLOSTAR 100 UNITS/ML 3 ML PEN SQ SCH (09:00)
[2018-09-19] MEDS: DOCUSATE SODIUM 100 MG CAP PO SCH ×2 (09:03→21:32)
[2018-09-19] MEDS: CALCIUM ACETATE 667 MG CAP PO SCH ×3 (09:04→18:06)
[2018-09-19] MEDS: FERROUS SULFATE 325 MG TAB PO SCH ×2 (09:05→21:20)
[2018-09-19 09:39] LABS: Hematocrit (blood only) 26.1 % (42-52); Hemoglobin 8.4 g/dL (14.0-18.0)
--- NOTE | 2018-09-19 10:47 | Dialysis Progress Note ---
Date of Service September 19, 2018 Assessment & Plan (1) ESRD on dialysis: ESRD on HD via left AVF. Admitted with anemia with blood loss, received 2 units of PRBC, pending GI evaluation, hemoglobin stable. Has chronic ischemic ulcer with gangrene of left foot and osteomyelitis. Was seen by Orthopedic surgery and recommended to have left below-knee amputation however patient still undecided. Antibiotic was switched to imipenem on 09/18/2018 and plan is to monitor over the weekend for any improvement, if there is no improvement, patient will be agreeable to have left below-knee amputation. BP, volume status, electrolyte stable. --plan for 4 hours dialysis today history of 5 hours as patient has been having difficulty lying in bed for that long dialysis --give Epogen with dialysis, [place] dose [place] 81482 units on 09/17/2018 --continue IHD TTS -- patient is planning to contact social security regarding disability on Friday as recommended by the social service in hospital Will follow (2) Anemia: (3) Osteomyelitis: (4) Hypertension: (5) Secondary hyperparathyroidism of renal origin: (6) Proteinuria: Joseline Esteves was seen and examined this am during hemodialysis treatment. He denies SOB, CP. Had some bleeding from right foot incision site this morning which currently stopped after pressure dressing was applied. Blood pressure stable. The Physical Exam Vital Signs (Past 24 Hours): Last Vital Signs Temp 36.9 C 09/19/18 09:25 Pulse 78 09/19/18 10:20 Resp 20 09/19/18 07:54 BP 139/76 09/19/18 10:20 Pulse Ox 96 09/19/18 07:54 Constitutional: WD/WN, vitals as above + ill appearing, + morbidly obese and + disheveled Respiratory: normal respiratory effort, lungs clear to auscultation Cardiovascular: RRR, no murmur, no edema Neurologic: moves all extremities and awake Psychiatric: A+Ox3, euthymic affect
--- NOTE | 2018-09-19 13:16 | Hospitalist Progress Note ---
Date of Service September 19, 2018 Assessment & Plan (1) Acute blood loss anemia: (2) Wound of foot: (3) End-stage renal disease on hemodialysis: (4) Diabetes: (5) Secondary hyperparathyroidism of renal origin: 58-year-old white male admitted on September 13, 2018 because of left lower extremity chronic wound, Left foot wound, still has significant currently with wound care and IV antibiotic s/p amputation of 5th toe and 5th metatarsal and extensive debridement of foot for underlying infection wound vac removed 09/14, extensive tissue, worsening infection despite therapy ortho recs amputation too there was recommendation of Dr. Parsons, process coordinator that has followed the foot for some time at [place] wound culture showed: Gram negative bacilli, Alcaligenes faecalis Infectious disease input appreciated, changed to imipenem final cultures pending. he would like to try IV abx for now. Possible acute blood loss anemia: Hemoglobin improved after transfusion, today's hemoglobin 8.4 from 8.7 from 8.2 , which is stable, End-stage renal disease on hemodialysis: consulted Dr. Israel , HD cont Diabetic, secondary pleural hypothyroidism, continue current medication, Accelerated hypertension, add hydralazine as needed, blood pressure better controlled, will continue follow-up Suicidal ideation and anxiety from overwhelming life 2 days ago: Psychiatry input appreciated, discontinued one-to-one sitter, suicidal precaution DVT prophylaxis is covered Subjective Patient was seen dialysis unit , Reported last night has some bleedings in the wound of left food no more axious or frustrated, no suicidal ideation, Review of Systems Constitutional: Positive weakness, or fatigue Respiratory: no cough, sputum, wheezing, or dyspnea on exertion Cardiac: No chest pain, No orthopnea, No PND, No claudication, No palpitations, Abdomen: No pain, No nausea, No vomiting, No diarrhea, No constipation, No GI bleeding Musculoskeletal: No joint pain, No muscle pain, No swelling, No calf pain, No problem reported : No dysuria, No urinary frequency, No incontinence, No hematuria Neurologic: No paralysis, No weakness, No numbness/tingling, Psychiatric: Anxious, suicidal as mentioned in the above left foot in dress Integumentary: + wounds (left foot, foul odor, tissue, no pain) Neurologic: + numbness (feet bilaterally) Physical Exam Vital Signs (Past 24 Hours): Last Vital Signs Temp 36.9 C 09/19/18 09:25 Pulse 70 09/19/18 13:00 Resp 20 09/19/18 07:54 BP 151/72 H 09/19/18 13:00 Pulse Ox 96 09/19/18 07:54 Physical Exam: General Appearance: Morbid obesity, looks more calm than yesterday, WD/WN, no apparent distress, Eyes: normal inspection, PERRL, EOMI, sclerae normal ENT: normal ENT inspection, hearing grossly normal, pharynx normal Neck: supple, no adenopathy, thyroid normal, no JVD, no carotid bruits, trachea midline Respiratory/Chest: chest non-tender, significantly decreased breath sounds, no respiratory distress, no accessory muscle use, breath sounds, rales, wheezing Cardiovascular: regular rate, rhythm, no JVD, no murmur Abdomen: normal bowel sounds, non tender, soft, no organomegaly, Extremities: normal range of motion, non-tender, left foot in dressing, left foot: he has multiple large open wounds on the foot with yellow with drainage and placement, His 5th toe has been amputated. His 4th toe is necrotic. Neurologic/Psychiatric: medical support assistant II-XII nml as tested, no motor/sensory deficits, alert, normal mood/affect, oriented x 3 Results & Data Laboratory Results Laboratory Results - last 24 hr 09/18/18 09/18/18 09/19/18 17:02 20:43 08:24 Hgb Hct POC Glucose 144 H 155 H 98 09/19/18 09:27 Hgb 8.4 L Hct 26.1 L POC Glucose Microbiology 09/14/18 10:30 Foot,Left Gram Stain - Final 09/14/18 10:30 Foot,Left Deep Wound Culture - Preliminary Gram negative bacilli Alcaligenes faecalis
[2018-09-19] MEDS: METOPROLOL TARTRATE 50 MG TAB PO SCH ×2 (14:32→21:39)
[2018-09-19] MEDS: AMLODIPINE BESYLATE 5 MG TAB PO SCH (14:33)
[2018-09-19] MEDS: LISINOPRIL 40 MG TAB PO SCH (14:33)
[2018-09-20] MEDS: IMIPENEM/CILASTATIN SODIUM 200 MG in DEXTROSE 5% 100 ML IV SCH ×4 (04:23→22:43)
[2018-09-20] MEDS: INSULIN ASPART 100 UNITS/ML 3 ML PEN SC SCH ×4 (08:28→21:44)
[2018-09-20] MEDS: INSULIN GLARGINE SOLOSTAR 100 UNITS/ML 3 ML PEN SQ SCH (08:29)
[2018-09-20] MEDS: CALCIUM ACETATE 667 MG CAP PO SCH ×3 (08:31→17:15)
[2018-09-20] MEDS: LISINOPRIL 40 MG TAB PO SCH (08:38)
[2018-09-20] MEDS: METOPROLOL TARTRATE 50 MG TAB PO SCH ×2 (08:38→21:43)
[2018-09-20] MEDS: FERROUS SULFATE 325 MG TAB PO SCH ×2 (08:39→17:16)
[2018-09-20] MEDS: DOCUSATE SODIUM 100 MG CAP PO SCH ×2 (08:39→21:43)
[2018-09-20] MEDS: AMLODIPINE BESYLATE 5 MG TAB PO SCH (08:39)
--- NOTE | 2018-09-20 09:35 | Nephrology Progress Note ---
Date of Service September 20, 2018 Assessment & Plan (1) ESRD on dialysis: ESRD on HD via left AVF. admitted with anemia with blood loss, received 2 units of PRBC, hemoglobin has been relatively stable. Has chronic ischemic ulcer with gangrene of left foot and osteomyelitis. Was seen by Orthopedic surgery and recommended to have left below-knee amputation however patient still undecided. Antibiotic was switched to imipenem on 09/18/2018 and plan is to monitor over the weekend for any improvement, if there is no improvement, patient will be agreeable to have left below-knee amputation. BP, volume status, electrolyte stable. --continue hemodialysis TTS as his outpatient schedule,, Epogen 98151 units weekly, last dose was on 09/17/2018 --continue Renal Caps and phosLo -- patient is planning to contact social security regarding disability on Friday as recommended by the social service in hospital Will follow (2) Anemia: (3) Osteomyelitis: (4) Hypertension: (5) Secondary hyperparathyroidism of renal origin: (6) Proteinuria: Subjective Danielito was seen and examined this am. He denies SOB, CP. Blood pressure stable. No further bleeding from left foot. Dressing was changed this morning, no discharges from the left foot and foot seems to be less foul smelling. Physical Exam Vital Signs (Past 24 Hours): Last Vital Signs Temp 36.8 C 09/20/18 07:40 Pulse 81 09/20/18 07:40 Resp 18 09/20/18 07:40 BP 163/75 H 09/20/18 07:40 Pulse Ox 97 09/20/18 07:40 Constitutional: WD/WN, vitals as above + ill appearing, + morbidly obese and + disheveled Respiratory: normal respiratory effort, lungs clear to auscultation Cardiovascular: RRR, no murmur, no edema Neurologic: moves all extremities and awake Psychiatric: A+Ox3, euthymic affect
[2018-09-20] MEDS: NEPHROCAPS PO SCH (11:10)
--- NOTE | 2018-09-20 17:41 | Hospitalist Progress Note ---
Date of Service September 20, 2018 Assessment & Plan (1) Acute blood loss anemia: (2) Wound of foot: (3) End-stage renal disease on hemodialysis: (4) Diabetes: (5) Secondary hyperparathyroidism of renal origin: 58-year-old white male admitted on September 13, 2018 because of left lower extremity chronic wound, patient declined the recommendation of amputation, want to try IV antibiotic and then decide Left foot wound, suspicious improving with less odor and drainage ? currently with wound care and IV antibiotic s/p amputation of 5th toe and 5th metatarsal and extensive debridement of foot for underlying infection wound vac removed 09/14, extensive tissue, worsening infection despite therapy ortho recs amputation too there was recommendation of Dr. Parsons, insurance adviser that has followed the foot for some time at [place] wound culture showed: Gram negative bacilli, Alcaligenes faecalis Infectious disease input appreciated, changed to imipenem final cultures pending. pt would like to try IV abx for now. Possible acute blood loss anemia: Hemoglobin improved after transfusion, today's hemoglobin 8.4 from 8.7 from 8.2 , which is stable, End-stage renal disease on hemodialysis: consulted Dr. Israel , HD cont Diabetic, secondary pleural hypothyroidism, continue current medication, Accelerated hypertension, add hydralazine as needed, blood pressure better controlled, will continue follow-up Suicidal ideation and anxiety from overwhelming life upon admission: Psychiatry input appreciated, [facility] la'ed suicidal precaution DVT prophylaxis is covered Subjective Reported to include, no other complaint , also reported left foot wound drainage is better, the smelling is better to, He continue posterior heel weightbearing, was up and walk around with walker no suicidal ideation, Review of Systems Constitutional: Positive weakness, or fatigue Respiratory: no cough, sputum, wheezing, or dyspnea on exertion Cardiac: No chest pain, No orthopnea, No PND, No claudication, No palpitations, Abdomen: No pain, No nausea, No vomiting, No diarrhea, No constipation, Musculoskeletal: No joint pain, No muscle pain, No swelling, No calf pain, No problem reported : No dysuria, No urinary frequency, No incontinence, No hematuria Neurologic: No paralysis, No weakness, No numbness/tingling, Psychiatric: Anxious, suicidal as mentioned in the above left foot in dress Laboratory Results - last 24 hr 03/02/19 03/02/19 03/03/19 17:06 20:41 08:20 POC Glucose 157 H 110 H 112 H 09/20/18 09/20/18 12:16 16:56 POC Glucose 120 H 106 H Microbiology 09/14/18 10:30 Foot,Left Gram Stain - Final 09/14/18 10:30 Foot,Left Deep Wound Culture - Preliminary Gram negative bacilli Alcaligenes faecalis Prevotella bivia Prevotella corporis Physical Exam Vital Signs (Past 24 Hours): Last Vital Signs Temp 36.2 C L 09/20/18 15:00 Pulse 81 09/20/18 15:00 Resp 20 09/20/18 15:00 BP 140/81 09/20/18 15:00 Pulse Ox 97 09/20/18 15:00
[2018-09-21] MEDS: IMIPENEM/CILASTATIN SODIUM 200 MG in DEXTROSE 5% 100 ML IV SCH ×4 (02:56→21:17)
[2018-09-21 07:24] LABS: Hematocrit (blood only) 26.8 % (42-52); Hemoglobin 8.7 g/dL (14.0-18.0); Mean Corpuscular Hgb Conc 32.5 g/dL (32-36); Mean Corpuscular Volume 92.4 fL (80-100); Mean Platelet Volume 9.7 fL (7.4-10.4); Platelet Count 275 K/uL (130-400); RDW Coefficient of Variation 15.4 % (11.5-14.5); RDW Standard Deviation 52.5 fL (36.4-46.3); White Blood Count 8.74 K/uL (4.8-10.8)
[2018-09-21 08:09] LABS: Albumin Level 2.5 gm/dl (3.4-5.0); BUN Creatinine Ratio 8.8 (10-20); Calcium 8.1 mg/dl (8.5-10.1); Creatinine Clr Calc Pharmacy 20.7 ml/min; Est GFR (African American) 9.9; Est GFR (Non-African American) 8.5; Magnesium 2.3 mg/dl (1.8-2.4); Phosphorus 5.1 mg/dl (2.5-4.9); Potassium 4.4 mmol/L (3.5-5.1)
[2018-09-21] MEDS: CALCIUM ACETATE 667 MG CAP PO SCH ×3 (09:26→18:42)
[2018-09-21] MEDS: LISINOPRIL 40 MG TAB PO SCH (09:27)
[2018-09-21] MEDS: METOPROLOL TARTRATE 50 MG TAB PO SCH ×2 (09:28→21:17)
[2018-09-21] MEDS: NEPHROCAPS PO SCH (09:28)
[2018-09-21] MEDS: DOCUSATE SODIUM 100 MG CAP PO SCH ×2 (09:28→21:17)
[2018-09-21] MEDS: AMLODIPINE BESYLATE 5 MG TAB PO SCH (09:29)
[2018-09-21] MEDS: FERROUS SULFATE 325 MG TAB PO SCH ×2 (09:29→18:42)
[2018-09-21] MEDS: INSULIN GLARGINE SOLOSTAR 100 UNITS/ML 3 ML PEN SQ SCH (09:32)
[2018-09-21] MEDS: INSULIN ASPART 100 UNITS/ML 3 ML PEN SC SCH ×4 (09:33→21:14)
--- NOTE | 2018-09-21 10:37 | Nephrology Progress Note ---
Date of Service September 21, 2018 Assessment & Plan (1) ESRD on dialysis: ESRD on HD via left AVF. Admitted with acute blood loss anemia. Received 2 units of PRBC. Hemoglobin has been relatively stable. Has chronic ischemic ulcer with gangrene of left foot and osteomyelitis. Was seen by Orthopedic surgery and recommended to have left below-knee amputation however patient remains undecided. Antibiotic was switched to imipenem on 09/18/2018 and plan is to monitor over the weekend for any improvement, if there is no improvement, patient will be agreeable to have left below-knee amputation. BP, volume status, electrolyte stable. --continue hemodialysis TTS as his outpatient schedule, Epogen 20415 units weekly, last dose was on 09/17/2018 --continue Renal Caps and phosLo -- patient is planning to contact social security regarding disability on Friday as recommended by the social service in hospital (2) Anemia: (3) Osteomyelitis: (4) Hypertension: (5) Secondary hyperparathyroidism of renal origin: (6) Proteinuria: Subjective Danielito was seen and examined this am. He denies SOB, CP. Blood pressure stable. No further bleeding from left foot. No fevers or chills. Plan of care was discussed with Dr. Abdullahi. Review of Systems All systems reviewed & are unremarkable except as noted in HPI & below Physical Exam Vital Signs (Past 24 Hours): Last Vital Signs Temp 36.4 C L 09/21/18 07:45 Pulse 72 09/21/18 07:45 Resp 19 09/21/18 07:45 BP 120/68 09/21/18 07:45 Pulse Ox 97 09/21/18 07:45 Constitutional: + morbidly obese; no acute distress Eyes: no scleral abnormality and no corneal abnormality ENMT: Mouth: no oral mucosal abnormality and oral mucous membranes not dry Neck: normal visual inspection and + thick neck Respiratory: no respiratory distress Auscultation: lungs clear to auscultation bilaterally Cardiovascular: Heart Sounds: normal S1, normal S2 and + murmur Extremities: + edema Gastrointestinal (Abdomen): Percussion/Palpation: abdomen soft; abdomen nontender Musculoskeletal: Extremities: no cyanosis LE wound with dressing intact Skin: no rashes, warm and dry Neurologic: Motor/Sensory: no tremor and no asterixis Psychiatric: Eye Contact: good eye contact Mood: + depressed mood Results & Data Laboratory Results Laboratory Results - last 24 hr 09/20/18 09/20/18 09/20/18 12:16 16:56 20:02 WBC RBC Hgb Hct MCV MCH MCHC RDW Std Deviation RDW Coeff of Dorcas Plt Count MPV Sodium Potassium Chloride Carbon Dioxide Anion Gap BUN Creatinine Est Cr Clr Drug Dosing Est GFR ( Amer) Est GFR (Non-Af Amer) BUN/Creatinine Ratio Glucose POC Glucose 120 H 106 H 95 Calcium Phosphorus Magnesium Albumin 09/21/18 09/21/18 09/21/18 07:08 07:08 07:57 WBC 8.74 RBC 2.90 L Hgb 8.7 L Hct 26.8 L MCV 92.4 MCH 30.0 MCHC 32.5 RDW Std Deviation 52.5 H RDW Coeff of Dorcas 15.4 H Plt Count 275 MPV 9.7 Sodium 130 L Potassium 4.4 Chloride 95 L Carbon Dioxide 25 Anion Gap 10.0 BUN 58 H Creatinine 6.62 H* Est Cr Clr Drug Dosing 20.7 Est GFR ( Amer) 9.9 Est GFR (Non-Af Amer) 8.5 BUN/Creatinine Ratio 8.8 L Glucose 96 POC Glucose 103 H Calcium 8.1 L Phosphorus 5.1 H Magnesium 2.3 Albumin 2.5 L
--- NOTE | 2018-09-21 15:43 | Hospitalist Progress Note ---
Date of Service September 21, 2018 Assessment & Plan (1) Acute blood loss anemia: (2) Wound of foot: (3) End-stage renal disease on hemodialysis: (4) Diabetes: (5) Secondary hyperparathyroidism of renal origin: 58-year-old white male admitted on September 13, 2018 because of left lower extremity chronic wound, patient declined the recommendation of amputation, want to try IV antibiotic and then decide Left foot wound, suspicious improving with less odor and less drainage ? currently with wound care and IV antibiotic s/p amputation of 5th toe and 5th metatarsal and extensive debridement of foot for underlying infection wound vac removed 09/14, extensive tissue, worsening infection despite therapy ortho recs amputation too there was recommendation of Dr. Parsons, sanding supervisor that has followed the foot for some time at [place] wound culture showed: Gram negative bacilli, Alcaligenes faecalis Infectious disease input appreciated, I cannot tell if there are local wounds is getting better or not, I will invite infectious disease to see patient together and get an idea about the wound is better or not ccont mipenem final cultures pending. Possible acute blood loss anemia: Hemoglobin improved after transfusion, today's hemoglobin 8.7 from8.4 from 8.7 from 8.2 , which is stable, End-stage renal disease on hemodialysis: consulted Dr. Israel , HD cont Diabetic, secondary pleural hypothyroidism, continue current medication, Accelerated hypertension, add hydralazine as needed, blood pressure better controlled, will continue follow-up Was having Suicidal ideation and anxiety from overwhelming life upon admission: Psychiatry input appreciated, discontinued one-to-one [place], dc'ed suicidal precaution DVT prophylaxis is covered Subjective Generally doing the same, no fever and chill, doing good, reported left foot wound drainage is better, the smelling is better too, Review of Systems Constitutional: Positive weakness, or fatigue Respiratory: no cough, sputum, wheezing, or dyspnea on exertion Cardiac: No chest pain, No orthopnea, No PND, No claudication, No palpitations, Abdomen: No pain, No nausea, No vomiting, No diarrhea, No constipation, Musculoskeletal: No joint pain, No muscle pain, No swelling, : No dysuria, No urinary frequency, No incontinence, No hematuria Neurologic: No paralysis, No weakness, No numbness/tingling, Psychiatric: Anxious, suicidal as mentioned in the above left foot in dress Physical Exam Vital Signs (Past 24 Hours): Last Vital Signs Temp 36.9 C 09/21/18 15:24 Pulse 66 09/21/18 15:24 Resp 18 09/21/18 15:24 BP 153/74 H 09/21/18 15:24 Pulse Ox 99 09/21/18 15:24 Physical Exam: General Appearance: Morbid obesity, looks more calm than yesterday, WD/WN, no apparent distress, Eyes: normal inspection, PERRL, EOMI, sclerae normal ENT: normal ENT inspection, hearing grossly normal, pharynx normal Neck: supple, no adenopathy, thyroid normal, no JVD, no carotid bruits, trachea midline Respiratory/Chest: chest non-tender, significantly decreased breath sounds, no respiratory distress, no accessory muscle use, breath sounds, rales, wheezing Cardiovascular: regular rate, rhythm, no JVD, no murmur Abdomen: normal bowel sounds, non tender, soft, no organomegaly, Extremities: Doing a stress change together with registered nurse, multiple large open wounds on the foot No obvious drainage, No obvious bad smelling, 5th toe has been amputated. 4th toe is necrotic. On the toes has good color and no cyanosis Neurologic/Psychiatric: analysis specialist II-XII nml as tested, no motor/sensory deficits, alert, normal mood/affect, oriented x 3 Results & Data Laboratory Results Laboratory Results - last 24 hr 09/20/18 09/20/18 09/21/18 16:56 20:02 07:08 WBC 8.74 RBC 2.90 L Hgb 8.7 L Hct 26.8 L MCV 92.4 MCH 30.0 MCHC 32.5 RDW Std Deviation 52.5 H RDW Coeff of Dorcas 15.4 H Plt Count 275 MPV 9.7 Sodium Potassium Chloride Carbon Dioxide Anion Gap BUN Creatinine Est Cr Clr Drug Dosing Est GFR ( Amer) Est GFR (Non-Af Amer) BUN/Creatinine Ratio Glucose POC Glucose 106 H 95 Calcium Phosphorus Magnesium Albumin 09/21/18 09/21/18 09/21/18 07:08 07:57 12:01 WBC RBC Hgb Hct MCV MCH MCHC RDW Std Deviation RDW Coeff of Dorcas Plt Count MPV Sodium 130 L Potassium 4.4 Chloride 95 L Carbon Dioxide 25 Anion Gap 10.0 BUN 58 H Creatinine 6.62 H* Est Cr Clr Drug Dosing 20.7 Est GFR ( Amer) 9.9 Est GFR (Non-Af Amer) 8.5 BUN/Creatinine Ratio 8.8 L Glucose 96 POC Glucose 103 H 115 H Calcium 8.1 L Phosphorus 5.1 H Magnesium 2.3 Albumin 2.5 L
--- NOTE | 2018-09-21 15:51 | Infectious Disease Progress Nt ---
Date of Service September 21, 2018 Assessment & Plan (1) Infection of left foot: Patient with chronic left foot infection following previous surgery, with cultures growing gram-negative bacilli, Alcaligenes,, and Prevotella. Appears to be showing some improvement. Patient should continue on IV imipenem if attempts at salvaging the foot without surgery to continue. Will follow. Subjective Patient seen in follow-up for left foot infection. Now on imipenem, appears to be tolerating well. Remains afebrile. Slight improvement in left foot noted. Cultures growing gram-negative bacilli and Prevotella. Review of Systems All systems reviewed & are unremarkable except as noted in HPI & below Physical Exam Vital Signs (Past 24 Hours): Last Vital Signs Temp 36.9 C 09/21/18 15:24 Pulse 66 09/21/18 15:24 Resp 18 09/21/18 15:24 BP 153/74 H 09/21/18 15:24 Pulse Ox 99 09/21/18 15:24 Constitutional: WD/WN, vitals as above comfortable; no acute distress Eyes: PERRL, conjunctivae normal, anicteric sclerae ENMT: external ear and nose normal, oropharynx normal Neck: trachea midline, no thyromegaly neck nontender Respiratory: normal respiratory effort, lungs clear to auscultation normal percussion; no respiratory distress Cardiovascular: Rate/Rhythm: regular rate and regular rhythm Heart Sounds: normal S1 and normal S2; no gallop, no murmur and no cardiac rub Gastrointestinal (Abdomen): normal bowel sounds, soft, nontender, no hepatosplenomegaly Musculoskeletal: no cyanosis or clubbing, extremities motor strength 5/5 No spinal tenderness, no joint swelling or erythema Skin: no rashes, warm and dry + wound (Open wound left foot slightly improved) Neurologic: moves all extremities and awake; no focal motor deficits Motor/Sensory: no sensory deficit Psychiatric: A+Ox3, euthymic affect Lymphatic: no cervical or axillary lymphadenopathy no inguinal lymphadenopathy Results & Data Laboratory Results Short CBC 09/21/18 Range/Units 07:08 WBC 8.74 (4.8-10.8) K/uL Hgb 8.7 L (14.0-18.0) g/dL Hct 26.8 L (42-52) % Plt Count 275 (130-400) K/uL [facility] 09/21/18 07:08 Sodium 130 L Potassium 4.4 Chloride 95 L Carbon Dioxide 25 BUN 58 H Creatinine 6.62 H* Glucose 96 Calcium 8.1 L Liver Function 09/21/18 Range/Units 07:08 Albumin 2.5 L (3.4-5.0) gm/dl Diagnostic Findings Microbiology 09/14/18 10:30 Foot,Left Gram Stain - Final 09/14/18 10:30 Foot,Left Deep Wound Culture - Preliminary Gram negative bacilli Alcaligenes faecalis Prevotella bivia Prevotella corporis
[2018-09-22] MEDS: IMIPENEM/CILASTATIN SODIUM 200 MG in DEXTROSE 5% 100 ML IV SCH ×4 (04:26→22:20)
[2018-09-22] MEDS ORDERED: SODIUM CHLORIDE 0.9% 1000ML 1,000 ML IV PRN (07:00)
[2018-09-22] MEDS ORDERED: EPOETIN ALFA 10,000 UNITS/ML VIAL IV SCH (07:00)
[2018-09-22] MEDS: CALCIUM ACETATE 667 MG CAP PO SCH ×3 (08:27→17:59)
[2018-09-22] MEDS: DOCUSATE SODIUM 100 MG CAP PO SCH ×2 (09:17→22:24)
[2018-09-22] MEDS: NEPHROCAPS PO SCH (09:17)
[2018-09-22] MEDS: INSULIN GLARGINE SOLOSTAR 100 UNITS/ML 3 ML PEN SQ SCH (09:20)
[2018-09-22] MEDS: INSULIN ASPART 100 UNITS/ML 3 ML PEN SC SCH ×4 (09:20→22:16)
[2018-09-22] MEDS: FERROUS SULFATE 325 MG TAB PO SCH ×2 (09:24→17:59)
--- NOTE | 2018-09-22 11:49 | Nephrology Progress Note ---
Date of Service September 22, 2018 Assessment & Plan (1) ESRD on dialysis: ESRD on HD via left AVF. Admitted with acute blood loss anemia. Received 2 units of PRBC. Hemoglobin has been relatively stable. Has chronic ischemic ulcer with gangrene of left foot and osteomyelitis. Was seen by Orthopedic surgery and recommended to have left below-knee amputation however patient remains undecided. Antibiotic was switched to imipenem on 09/18/2018 and plan is to monitor over the weekend for any improvement, if there is no improvement, patient will be agreeable to have left below-knee amputation. Tolerating HD well today. UF goal 3 L. --continue hemodialysis TTS as his outpatient schedule, Epogen 60271 units weekly, last dose was on 09/17/2018 additional 1000 units today --continue Renal Caps and phosLo (2) Anemia: (3) Osteomyelitis: (4) Hypertension: (5) Secondary hyperparathyroidism of renal origin: (6) Proteinuria: Subjective Danielito was seen and examined during hemodialysis. He denies SOB, CP. Blood pressure stable. No further bleeding from left foot. No fevers or chills. Review of Systems All systems reviewed & are unremarkable except as noted in HPI & below Physical Exam Vital Signs (Past 24 Hours): Last Vital Signs Temp 36.8 C 09/22/18 09:34 Pulse 64 09/22/18 11:40 Resp 20 09/22/18 07:12 BP 134/73 09/22/18 11:40 Pulse Ox 97 09/22/18 07:12 Constitutional: + morbidly obese; no acute distress Eyes: no scleral abnormality and no corneal abnormality ENMT: Mouth: no oral mucosal abnormality and oral mucous membranes not dry Neck: normal visual inspection and + thick neck Respiratory: no respiratory distress Auscultation: lungs clear to auscultation bilaterally Cardiovascular: Heart Sounds: normal S1, normal S2 and + murmur Extremities: + edema Gastrointestinal (Abdomen): Percussion/Palpation: abdomen soft; abdomen nontender Musculoskeletal: Extremities: no cyanosis Skin: no rashes, warm and dry Neurologic: Motor/Sensory: no tremor and no asterixis Psychiatric: Eye Contact: good eye contact Mood: no depressed mood Results & Data Laboratory Results Laboratory Results - last 24 hr 09/21/18 09/21/18 09/21/18 12:01 17:14 21:06 POC Glucose 115 H 153 H 110 H 09/22/18 08:01 POC Glucose 109 H
[2018-09-22] MEDS: METOPROLOL TARTRATE 50 MG TAB PO SCH ×2 (13:50→22:24)
[2018-09-22] MEDS: AMLODIPINE BESYLATE 5 MG TAB PO SCH (14:11)
[2018-09-22] MEDS: LISINOPRIL 40 MG TAB PO SCH (14:11)
--- NOTE | 2018-09-22 17:58 | Hospitalist Progress Note ---
Date of Service September 22, 2018 Assessment & Plan (1) Acute blood loss anemia: (2) Wound of foot: (3) End-stage renal disease on hemodialysis: (4) Diabetes: (5) Secondary hyperparathyroidism of renal origin: 58-year-old white male admitted on September 13, 2018 because of left lower extremity chronic wound, patient declined the recommendation of amputation, wanted to try IV antibiotic and then decide Left foot wound, suspicious improving with less odor and less drainage currently with wound care and IV antibiotic s/p amputation of 5th toe and 5th metatarsal and extensive debridement of foot for underlying infection wound vac removed 09/14, extensive tissue, worsening infection despite therapy ortho recs amputation too there was recommendation of Dr. Parsons, gaming cashier that has followed the foot for some time at [place] wound culture showed: Gram negative bacilli, Alcaligenes faecalis Infectious disease input appreciated, D/w'ed ID we both feel the chance if ABX to help healing of the wound is very minimal, recs him of amp, he is think of it, Possible acute blood loss anemia: Hemoglobin improved after transfusion, tHB stable, End-stage renal disease on hemodialysis: HD cont Diabetic, secondary pleural hypothyroidism, continue current medication, Accelerated hypertension, add hydralazine as needed, blood pressure better controlled, will continue follow-up Was having Suicidal ideation and anxiety from overwhelming life upon admission: Psychiatry input appreciated, discontinued one-to-one [place], az'ed suicidal precaution DVT prophylaxis is covered PT/OT ordered Subjective See patient during the dialysis, generally doing the same, no fever and chill, doing good, Review of Systems Constitutional: Positive weakness, or fatigue Respiratory: no cough, sputum, wheezing, or dyspnea on exertion Cardiac: No chest pain, No orthopnea, No PND, No claudication, No palpitations, Abdomen: No pain, No nausea, No vomiting, No diarrhea, No constipation, Musculoskeletal: No joint pain, No muscle pain, No swelling, : No dysuria, No urinary frequency, No incontinence, No hematuria Neurologic: No paralysis, No weakness, No numbness/tingling, Psychiatric: no more Anxious, suicidal left foot in dress Physical Exam Vital Signs (Past 24 Hours): Last Vital Signs Temp 36.3 C L 09/22/18 15:30 Pulse 77 09/22/18 15:30 Resp 16 09/22/18 15:30 BP 146/72 H 09/22/18 15:30 Pulse Ox 100 09/22/18 15:30 Physical Exam: General Appearance: obesity, pleasant, conversational, smiling, WD/WN, no apparent distress, Eyes: normal inspection, PERRL, EOMI, sclerae normal ENT: normal ENT inspection, hearing grossly normal, pharynx normal Neck: supple, no adenopathy, thyroid normal, no JVD, no carotid bruits, trachea midline Respiratory/Chest: chest non-tender, significantly decreased breath sounds, no respiratory distress, no accessory muscle use, breath sounds, rales, wheezing Cardiovascular: regular rate, rhythm, no JVD, no murmur Abdomen: normal bowel sounds, non tender, soft, no organomegaly, Extremities: Left lower extremity in dressing Neurologic/Psychiatric: industrial automation specialist II-XII nml as tested, no motor/sensory deficits, alert, normal mood/affect, oriented x 3 Results & Data Laboratory Results Laboratory Results - last 24 hr 09/21/18 09/22/18 09/22/18 21:06 08:01 13:49 POC Glucose 110 H 109 H 97 09/22/18 17:28 POC Glucose 124 H
[2018-09-23] MEDS: IMIPENEM/CILASTATIN SODIUM 200 MG in DEXTROSE 5% 100 ML IV SCH ×4 (03:42→21:28)
[2018-09-23] MEDS: FERROUS SULFATE 325 MG TAB PO SCH ×2 (08:39→19:41)
[2018-09-23] MEDS: CALCIUM ACETATE 667 MG CAP PO SCH ×3 (08:40→19:39)
[2018-09-23] MEDS: METOPROLOL TARTRATE 50 MG TAB PO SCH ×2 (08:41→21:20)
[2018-09-23] MEDS: DOCUSATE SODIUM 100 MG CAP PO SCH ×2 (08:41→21:18)
[2018-09-23] MEDS: AMLODIPINE BESYLATE 5 MG TAB PO SCH (08:42)
[2018-09-23] MEDS: NEPHROCAPS PO SCH (08:42)
[2018-09-23] MEDS: LISINOPRIL 40 MG TAB PO SCH (08:43)
[2018-09-23] MEDS: INSULIN GLARGINE SOLOSTAR 100 UNITS/ML 3 ML PEN SQ SCH (08:52)
[2018-09-23] MEDS: INSULIN ASPART 100 UNITS/ML 3 ML PEN SC SCH ×4 (08:54→21:15)
--- NOTE | 2018-09-23 08:56 | Nephrology Progress Note ---
Date of Service September 23, 2018 Assessment & Plan (1) ESRD on dialysis: ESRD on HD via left AVF. Admitted with acute blood loss anemia related to bleeding ulcer on foot. Received 2 units of PRBC. Hemoglobin has been relatively stable. Has chronic ischemic ulcer with gangrene of left foot and osteomyelitis. Left below-knee amputation is recommended however patient remains undecided. Antibiotic was switched to imipenem on 09/18/2018 with plan is to monitor over the weekend for any improvement, if there is no improvement, patient will be agreeable to have left below-knee amputation. BP, volume status are acceptable. Continue hemodialysis TTS. Medications are appropriate for kidney function. (2) Anemia: Additional 70030 units epo provided with HD yesterday (3) Osteomyelitis: (4) Hypertension: BP and volume status are acceptable (5) Secondary hyperparathyroidism of renal origin: Phoslo QAC (6) Proteinuria: Subjective No acute events overnight. Danielito was resting comfortably in bed. He continues to hope for healing of his leg. He tolerated HD well yesterday. Net UF 3 L. No fevers or chills. He denies chest pain, palpitations or shortness of breath. No further bleeding from left foot. Review of Systems All systems reviewed & are unremarkable except as noted in HPI & below Physical Exam Vital Signs (Past 24 Hours): Last Vital Signs Temp 37.1 C 09/23/18 07:50 Pulse 74 09/23/18 07:50 Resp 18 09/23/18 07:50 BP 127/55 L 09/23/18 07:50 Pulse Ox 99 09/23/18 07:50 Constitutional: + morbidly obese; no acute distress Eyes: no scleral abnormality and no corneal abnormality ENMT: Mouth: no oral mucosal abnormality and oral mucous membranes not dry Neck: normal visual inspection and + thick neck Respiratory: no respiratory distress Auscultation: lungs clear to au scultation bilaterally Cardiovascular: Heart Sounds: normal S1, normal S2 and + murmur Extremities: + edema Gastrointestinal (Abdomen): Percussion/Palpation: abdomen soft; abdomen nontender Musculoskeletal: Extremities: no cyanosis Skin: no rashes, warm and dry Neurologic: Motor/Sensory: no tremor and no asterixis Psychiatric: Eye Contact: good eye contact Mood: no depressed mood Results & Data Laboratory Results Laboratory Results - last 24 hr 09/22/18 09/22/18 09/22/18 08:01 13:49 17:28 POC Glucose 109 H 97 124 H 09/22/18 09/23/18 21:12 08:34 POC Glucose 128 H 120 H
--- NOTE | 2018-09-23 18:15 | Hospitalist Progress Note ---
Date of Service September 23, 2018 Assessment & Plan (1) Acute blood loss anemia: (2) Wound of foot: (3) End-stage renal disease on hemodialysis: (4) Diabetes: (5) Secondary hyperparathyroidism of renal origin: 58-year-old white male admitted on September 13, 2018 because of left lower extremity chronic wound, in the beginning of admission patient declined the recommendations of amputation, wanted to try IV antibiotic and then decide, and today he decides to agree to amputation, has contacted orthopedic team Left foot wound, doubt improving with less odor and less drainage currently with wound care and IV antibiotic s/p amputation of 5th toe and 5th metatarsal and extensive debridement of foot for underlying infection wound vac removed 09/14, extensive tissue, worsening infection despite therapy ortho recs amputation too there was recommendation of Dr. Parsons, software test manager that has followed the foot for some time at [place] wound culture showed: Gram negative bacilli, Alcaligenes faecalis Infectious disease input appreciated, currently is on IV Invanz D/w'ed ID we both feel the chance if ABX to help healing of the wound is very minimal, recs him of amp, he is think of it, today patient decides to amputation, has contacted orthopedic team However I heard in this late afternoon Dr. Cuevas is not available until next week, Possible acute blood loss anemia upon admission: Hemoglobin improved after tr ansfusion, HB stable, End-stage renal disease on hemodialysis: HD cont Diabetic, secondary hypothyroidism, continue current medication, Accelerated hypertension, added hydralazine as needed, blood pressure better controlled, will continue follow-up Was having Suicidal ideation and anxiety from overwhelming life upon admission: Psychiatry input appreciated, [facility] [place] suicidal precaution DVT prophylaxis is covered PT/OT ordered need to talk to patient about the options such as discharged home and then follow-up with Dr. Cuevas, or waiting in hospital until Dr. Cuevas come back Subjective generally doing the same, no fever and chill, Again the smelling of the wound in the left foot is no more as bad as when he was presented Review of Systems Constitutional: Positive weakness, or fatigue Respiratory: no cough, sputum, wheezing, or dyspnea on exertion Cardiac: No chest pain, No orthopnea, No PND, No claudication, No palpitations, Abdomen: No pain, No nausea, No vomiting, No diarrhea, No constipation, Musculoskeletal: No joint pain, No muscle pain, No swelling, : No dysuria, No urinary frequency, No incontinence, No hematuria Neurologic: No paralysis, No weakness, No numbness/tingling, Psychiatric: no more Anxious, suicidal left foot in dress Physical Exam Vital Signs (Past 24 Hours): Last Vital Signs Temp 37.1 C 09/23/18 15:05 Pulse 69 09/23/18 15:05 Resp 20 09/23/18 15:05 BP 138/79 09/23/18 15:05 Pulse Ox 100 09/23/18 15:05 Physical Exam: General Appearance: obesity, pleasant, conversational, smiling, WD/WN, no apparent distress, Eyes: normal inspection, PERRL, EOMI, sclerae normal ENT: normal ENT inspection, hearing grossly normal, pharynx normal Neck: supple, no adenopathy, thyroid normal, no JVD, no carotid bruits, trachea midline Respiratory/Chest: chest non-tender, significantly decreased breath sounds, no respiratory distress, no accessory muscle use, breath sounds, rales, wheezing Cardiovascular: regular rate, rhythm, no JVD, no murmur Abdomen: normal bowel sounds, non tender, soft, no organomegaly, Extremities: Left lower extremity in dressing, I checked on yesterday by dressing, Neurologic/Psychiatric: marina sales and service supervisor II-XII nml as tested, no motor/sensory deficits, alert, normal mood/affect, oriented x 3 Results & Data Laboratory Results Laboratory Results - last 24 hr 09/22/18 09/23/18 09/23/18 21:12 08:34 12:31 POC Glucose 128 H 120 H 110 H 09/23/18 17:00 POC Glucose 135 H Microbiology 09/14/18 10:30 Foot,Left Gram Stain - Final 09/14/18 10:30 Foot,Left Deep Wound Culture - Final Citrobacter freundii Alcaligenes faecalis Prevotella bivia Prevotella corporis
[2018-09-24] MEDS: IMIPENEM/CILASTATIN SODIUM 200 MG in DEXTROSE 5% 100 ML IV SCH ×4 (04:27→21:46)
[2018-09-24] MEDS ORDERED: SODIUM CHLORIDE 0.9% 1000ML 1,000 ML IV PRN (07:00)
[2018-09-24] MEDS: INSULIN ASPART 100 UNITS/ML 3 ML PEN SC SCH ×4 (09:06→21:30)
[2018-09-24] MEDS: INSULIN GLARGINE SOLOSTAR 100 UNITS/ML 3 ML PEN SQ SCH (09:08)
[2018-09-24] MEDS: LISINOPRIL 40 MG TAB PO SCH ×2 (09:11→13:19)
[2018-09-24] MEDS: NEPHROCAPS PO SCH (09:11)
[2018-09-24] MEDS: METOPROLOL TARTRATE 50 MG TAB PO SCH ×3 (09:11→21:46)
[2018-09-24] MEDS: AMLODIPINE BESYLATE 5 MG TAB PO SCH ×2 (09:11→13:18)
[2018-09-24] MEDS: DOCUSATE SODIUM 100 MG CAP PO SCH ×2 (09:11→21:45)
[2018-09-24] MEDS: FERROUS SULFATE 325 MG TAB PO SCH ×2 (09:11→18:59)
[2018-09-24] MEDS: CALCIUM ACETATE 667 MG CAP PO SCH ×3 (09:12→18:58)
--- NOTE | 2018-09-24 11:06 | Nephrology Progress Note ---
Date of Service September 24, 2018 Assessment & Plan (1) ESRD on dialysis: ESRD on HD via left AVF. Admitted with acute blood loss anemia related to bleeding ulcer on foot. Received 2 units of PRBC. Hemoglobin has been relatively stable. Has chronic ischemic ulcer with gangrene of left foot and osteomyelitis. Left below-knee amputation is planned. HD orders discussed with nurse. UF goal 2 L. Qb appropriate at 450. Medications are appropriate for kidney function. (2) Anemia: Additional 26306 units epo provided with HD on Friday Repeat CBC tomorrow AM (3) Osteomyelitis: (4) Hypertension: BP and volume status are acceptable (5) Secondary hyperparathyroidism of renal origin: Phoslo QA (6) Proteinuria: Subjective No acute events overnight. Danielito was seen and evaluated during hemodialysis this morning. He is planning to proceed with surgery at this time. He is tolerating HD well but did have some cramping in his right hand. No fevers or chills. He denies chest pain, palpitations or shortness of breath. No further bleeding from left foot. Review of Systems All systems reviewed & are unremarkable except as noted in HPI & below Physical Exam Vital Signs (Past 24 Hours): Last Vital Signs Temp 36.6 C 09/24/18 09:17 Pulse 64 09/24/18 10:40 Resp 18 09/24/18 07:59 BP 155/62 H 09/24/18 10:40 Pulse Ox 97 09/24/18 07:59 Constitutional: + morbidly obese; no acute distress Eyes: no scleral abnormality and no corneal abnormality ENMT: Mouth: no oral mucosal abnormality and oral mucous membranes not dry Neck: normal visual inspection and + thick neck Respiratory: no respiratory distress Auscultation: lungs clear to auscultation bilaterally Cardiovascular: Heart Sounds: normal S1, normal S2 and + murmur Extremities: no edema Gastrointestinal (Abdomen): Percussion/Palpation: abdomen soft; abdomen nontender Musculoskeletal: Extremities: no cyanosis Skin: no rashes, warm and dry Neurologic: Motor/Sensory: no tremor and no asterixis Psychiatric: Eye Contact: good eye contact Mood: no depressed mood Results & Data Laboratory Results Laboratory Results - last 24 hr 09/23/18 09/23/18 09/23/18 12:31 17:00 20:33 POC Glucose 110 H 135 H 131 H 09/24/18 07:50 POC Glucose 115 H
--- NOTE | 2018-09-24 19:03 | Hospitalist Progress Note ---
Date of Service September 24, 2018 Assessment & Plan (1) Acute blood loss anemia: Has been given a total of 4 units this admission Continue to follow closely, workup further if he continues to drop (2) Wound of foot: Continue Primaxin, for amputation once able. In regards to the timing between here and when he can be amputated, he does not appear to be safe for home according to an discussion with infectious disease, and unfortunately nobody is able to perform the amputation until next week, and sending him to rehab prior to the amputation seems to not be in his best benefit (3) End-stage renal disease on hemodialysis: Continue HD as per nephrology (4) Diabetes: continue Levemir, Novolog SS ordered Continue to follow sugars, reasonable control overall (5) Secondary hyperparathyroidism of renal origin: Noted Other: DVT prophylaxis is covered PT/OT ordered Subjective Feeling okay, still wants to proceed with amputation now, just mostly wants to get it over with. He notes he is holding up okay. No significant pain. Foot is dressed. Case discussed with orthopedics, the surgeon who is skilled with amputations is currently out of town, case discussed with infectious disease, they felt it prudent given the patient's situation that he should stay on IV antibiotics until the amputation. Physical Exam Vital Signs (Past 24 Hours): Last Vital Signs Temp 36.5 C 09/24/18 15:41 Pulse 69 09/24/18 15:41 Resp 18 09/24/18 15:41 BP 153/70 H 09/24/18 15:41 Pulse Ox 100 09/24/18 15:41 Physical Exam: In general he is awake alert and oriented x3 pleasant no acute distress HEENT number cephalic atraumatic mucous membranes are moist Breathing is unlabored no accessory muscle use good effort Skin his left foot is dressed otherwise he shows no erythema no rashes no pallor or icterus Neuro shows no focal deficits
[2018-09-25] MEDS: IMIPENEM/CILASTATIN SODIUM 200 MG in DEXTROSE 5% 100 ML IV SCH ×4 (04:16→22:31)
[2018-09-25] MEDS: FERROUS SULFATE 325 MG TAB PO SCH ×2 (08:57→18:15)
[2018-09-25] MEDS: CALCIUM ACETATE 667 MG CAP PO SCH ×3 (08:58→18:13)
[2018-09-25] MEDS: DOCUSATE SODIUM 100 MG CAP PO SCH ×2 (09:01→21:07)
[2018-09-25] MEDS: METOPROLOL TARTRATE 50 MG TAB PO SCH ×2 (09:02→21:07)
[2018-09-25] MEDS: NEPHROCAPS PO SCH (09:02)
[2018-09-25] MEDS: AMLODIPINE BESYLATE 5 MG TAB PO SCH (09:03)
[2018-09-25] MEDS: LISINOPRIL 40 MG TAB PO SCH (09:04)
[2018-09-25] MEDS: INSULIN GLARGINE SOLOSTAR 100 UNITS/ML 3 ML PEN SQ SCH (09:15)
[2018-09-25] MEDS: INSULIN ASPART 100 UNITS/ML 3 ML PEN SC SCH ×4 (09:18→22:32)
[2018-09-25 09:20] LABS: Calcium 8.7 mg/dl (8.5-10.1); Creatinine Clr Calc Pharmacy 25.3 ml/min; Est GFR (African American) 12.8; Potassium 4.5 mmol/L (3.5-5.1)
--- NOTE | 2018-09-25 10:11 | Nephrology Progress Note ---
Date of Service September 25, 2018 Assessment & Plan (1) ESRD on dialysis: ESRD on HD via left AVF. Admitted with acute blood loss anemia related to bleeding ulcer on foot. Received 2 units of PRBC. Hemoglobin has been relatively stable. Has chronic ischemic ulcer with gangrene of left foot and osteomyelitis. Left below-knee amputation is planned. -- Volume status & electrolyte balance are acceptable at this time. No acute indication for HD today -- Will schedule next HD for tomorrow. Orders placed in EMR and HD RN notified (2) Anemia: -- Will provide ERI w/ HD tomorrow (3) Osteomyelitis: -- On Imipenem as per ID -- Awaiting Ortho input. Patient is now agreeable to BKA (4) Hypertension: -- BP is mildly elevated. Continue current medical regimen. Will attempt UF w/ dialysis (5) Secondary hyperparathyroidism of renal origin: -- Phoslo QAC (6) Proteinuria: Subjective Mr. Quinonez was seen & examined in his hospital room this morning. He has ESRD and was last dialyzed yesterday for 4 hours w/ 2 L UF. There were no complications. AVF functioned well. Mr. Quinonez reports that he is ready to proceed w/ BKA. He currently denies fever, angina, dypsnea or uremic symptoms. Physical Exam Vital Signs (Past 24 Hours): Last Vital Signs Temp 36.8 C 09/25/18 08:00 Pulse 70 09/25/18 08:00 Resp 18 09/25/18 08:00 BP 171/75 H 09/25/18 08:00 Pulse Ox 96 09/25/18 08:00 Eyes: PERRL, conjunctivae normal, anicteric sclerae Neck: trachea midline, no thyromegaly Respiratory: normal respiratory effort, lungs clear to auscultation Cardiovascular: RRR, no murmur, no edema Gastrointestinal (Abdomen): normal bowel sounds, soft, nontender, no hepatosplenomegaly Results & Data Laboratory Results Laboratory Tests 09/21/18 07:08 WBC 8.74 Hgb 8.7 L Hct 26.8 L Plt Count 275 Laboratory Tests 09/25/18 08:43 Sodium 135 L Potassium 4.5 Chloride 98 Carbon Dioxide 27 Anion Gap 9.0 BUN 43 H Creatinine 5.35 H* Glucose 122 H
--- NOTE | 2018-09-25 14:54 | Infectious Disease Progress Nt ---
Date of Service September 25, 2018 Assessment & Plan (1) Infection of left foot: Patient with chronic left foot infection following previous surgery, with cultures growing gram-negative bacilli, Alcaligenes,, and Prevotella. Patient has agreed to BK amputation. We will continue antibiotics until surgery next week. Will follow. Subjective Patient seen in follow-up for left foot infection. Now on imipenem, appears to be tolerating well. Remains afebrile. Slight improvement in left foot noted. Appears to be agreeable to BKA. Review of Systems All systems reviewed & are unremarkable except as noted in HPI & below Physical Exam Vital Signs (Past 24 Hours): Last Vital Signs Temp 36.8 C 09/25/18 08:00 Pulse 70 09/25/18 08:00 Resp 18 09/25/18 08:00 BP 171/75 H 09/25/18 08:00 Pulse Ox 96 09/25/18 08:00 Constitutional: WD/WN, vitals as above comfortable; no acute distress Eyes: PERRL, conjunctivae normal, anicteric sclerae ENMT: external ear and nose normal, oropharynx normal Neck: trachea midline, no thyromegaly neck nontender Respiratory: normal respiratory effort, lungs clear to auscultation normal percussion; no respiratory distress Cardiovascular: Rate/Rhythm: regular rate and regular rhythm Heart Sounds: normal S1 and normal S2; no gallop, no murmur and no cardiac rub Gastrointestinal (Abdomen): normal bowel sounds, soft, nontender, no hepatosplenomegaly Musculoskeletal: no cyanosis or clubbing, extremities motor strength 5/5 Skin: no rashes, warm and dry + wound (Open wound left foot slightly improved) Neurologic: moves all extremities and awake; no focal motor deficits Motor/Sensory: no sensory deficit Psychiatric: A+Ox3, euthymic affect Lymphatic: no cervical or axillary lymphadenopathy no inguinal lymphadenopathy Results & Data Laboratory Results BMP 09/25/18 08:43 Sodium 135 L Potassium 4.5 Chloride 98 Carbon Dioxide 27 BUN 43 H Creatinine 5.35 H* Glucose 122 H Calcium 8.7 Diagnostic Findings Microbiology 09/14/18 10:30 Foot,Left Gram Stain - Final 09/14/18 10:30 Foot,Left Deep Wound Culture - Final Citrobacter freundii Alcaligenes faecalis Prevotella bivia Prevotella corporis
--- NOTE | 2018-09-25 17:45 | Hospitalist Progress Note ---
Date of Service September 25, 2018 Assessment & Plan (1) Acute blood loss anemia: Has been given a total of 4 units this admission Continue to follow closely, workup further if he continues to drop, but has been stable (2) Wound of foot: Continue Primaxin, for amputation once able. Will hopefully be able to be done next week, after discussion with other members of the team and no situation better, it seems he is unsafe to be home off of IV antibiotics until the amputation. Therefore continue current care (3) End-stage renal disease on hemodialysis: Continue HD as per nephrology (4) Diabetes: continue Levemir, Novolog SS ordered Continue to follow sugars, reasonable control overall, adjust basal bolus as needed (5) Secondary hyperparathyroidism of renal origin: Noted Other: DVT prophylaxis SCD (pharmacologic contraindicated related to his anemia requiring transfusion) PT/OT ordered, anticipate disposition to rehab post amputation. Subjective Feeling about the same, no complaints, awaiting surgery. Discussed my attempt to look into other options, he expresses understanding and appreciation, and resignation to the fact that it appears the safest option is to stay in the hospital on IV antibiotics pending his surgery Review of Systems All systems reviewed & are unremarkable except as noted in HPI & below Physical Exam Vital Signs (Past 24 Hours): Last Vital Signs Temp 37.2 C 09/25/18 15:09 Pulse 74 09/25/18 15:09 Resp 18 09/25/18 15:09 BP 163/73 H 09/25/18 15:09 Pulse Ox 94 09/25/18 15:09 Physical Exam: General he is awake alert and oriented x3 pleasant no distress. HEENT normal cephalic atraumatic mucous membranes are moist. Slight shows no tracking erythema. Skin shows no rashes no pallor or icterus otherwise. Neuro shows cranial nerves II through XII are grossly intact gross motor and sensory intact.
[2018-09-25] MEDS ORDERED: HEPARIN SOD 5,000 UNIT/0.5 ML VIAL SQ SCH (21:00)
[2018-09-26] MEDS: IMIPENEM/CILASTATIN SODIUM 200 MG in DEXTROSE 5% 100 ML IV SCH ×3 (04:54→20:56)
[2018-09-26] MEDS ORDERED: EPOETIN ALFA 10,000 UNITS/ML VIAL IV SCH (07:00)
[2018-09-26] MEDS ORDERED: SODIUM CHLORIDE 0.9% 1000ML 1,000 ML IV PRN (07:00)
[2018-09-26 07:11] LABS: Hematocrit (blood only) 28.5 % (42-52); Hemoglobin 8.9 g/dL (14.0-18.0); Mean Corpuscular Hgb Conc 31.2 g/dL (32-36); Mean Corpuscular Volume 93.4 fL (80-100); Mean Platelet Volume 9.5 fL (7.4-10.4); Platelet Count 314 K/uL (130-400); RDW Coefficient of Variation 15.6 % (11.5-14.5); RDW Standard Deviation 52.6 fL (36.4-46.3); Red Blood Count 3.05 M/uL (4.7-6.1); White Blood Count 11.33 K/uL (4.8-10.8)
[2018-09-26 07:46] LABS: BUN Creatinine Ratio 9.2 (10-20); Calcium 8.5 mg/dl (8.5-10.1); Est GFR (African American) 9.6; Est GFR (Non-African American) 8.3; Potassium 4.6 mmol/L (3.5-5.1)
[2018-09-26] MEDS: CALCIUM ACETATE 667 MG CAP PO SCH ×3 (08:43→18:02)
[2018-09-26] MEDS: INSULIN ASPART 100 UNITS/ML 3 ML PEN SC SCH ×4 (08:50→20:53)
[2018-09-26] MEDS: INSULIN GLARGINE SOLOSTAR 100 UNITS/ML 3 ML PEN SQ SCH (09:00)
--- NOTE | 2018-09-26 10:42 | Nephrology Progress Note ---
Date of Service September 26, 2018 Assessment & Plan (1) ESRD on dialysis: ESRD on HD via left AVF. Admitted with acute blood loss anemia related to bleeding ulcer on foot. Received 2 units of PRBC. Hemoglobin has been relatively stable. Has chronic ischemic ulcer with gangrene of left foot and osteomyelitis. Left below-knee amputation is planned. -- HD today. Orders entered into EMR and discussed with HD nurse car construction superintendent. UF 3 L goal, to challenge EDW. 2K bath. -- Renal diet. -- PO4 acceptable. Continue Phoslo as Rx. -- Medications are appropriately dosed for kidney function. (2) Anemia: -- EPO 71650 units with HD today. -- Check iron profile with next set of labs. (3) Osteomyelitis: -- On Imipenem as per ID. -- BKA planned for early next week. (4) Hypertension: -- BP is mildly elevated. Anticipate some improvement with HD today. (5) Secondary hyperparathyroidism of renal origin: -- Phoslo QAC (6) Proteinuria: Subjective Mr. Quinonez was seen & examined in his hospital room this morning. No fevers or chills. He denies significant pain. He currently denies fever, angina, or dypsnea. He feels that he is losing weight and notes that he has some fluid retention despite being below EDW. He also notes that BP is increased consistent with fluid retention. Review of Systems All systems reviewed & are unremarkable except as noted in HPI & below Physical Exam Vital Signs (Past 24 Hours): Last Vital Signs Temp 37.1 C 09/26/18 07:42 Pulse 70 09/26/18 07:42 Resp 16 09/26/18 07:42 BP 168/80 H 09/26/18 07:42 Pulse Ox 99 09/26/18 07:42 Constitutional: + morbidly obese; no acute distress Eyes: no scleral abnormality and no corneal abnormality ENMT: Mouth: no oral mucosal abnormality and oral mucous membranes not dry Neck: normal visual inspection and + thick neck Respiratory: no respiratory distress Auscultation: lungs clear to auscultation bilaterally Cardiovascular: Heart Sounds: normal S1, normal S2 and + murmur Extremities: no edema Gastrointestinal (Abdomen): Percussion/Palpation: abdomen soft; abdomen nontender Musculoskeletal: Extremities: no cyanosis Skin: no rashes, warm and dry Neurologic: Motor/Sensory: no tremor and no asterixis Psychiatric: Affect: euthymic affect
[2018-09-26] MEDS: DOCUSATE SODIUM 100 MG CAP PO SCH ×2 (15:25→20:56)
[2018-09-26] MEDS: FERROUS SULFATE 325 MG TAB PO SCH ×2 (15:25→18:09)
[2018-09-26] MEDS: METOPROLOL TARTRATE 50 MG TAB PO SCH ×2 (15:27→20:56)
[2018-09-26] MEDS: NEPHROCAPS PO SCH (15:28)
[2018-09-26] MEDS: LISINOPRIL 40 MG TAB PO SCH (15:28)
[2018-09-26] MEDS: AMLODIPINE BESYLATE 5 MG TAB PO SCH (15:28)
--- NOTE | 2018-09-26 18:12 | Hospitalist Progress Note ---
Date of Service September 26, 2018 Assessment & Plan (1) Acute blood loss anemia: Has been given a total of 4 units this admission Continue to follow closely, workup further if he continues to drop, but has been stable, hemoglobin today stable (2) Wound of foot: Continue Primaxin, for amputation once able. Will hopefully be able to be done next week, after discussion with other members of the team and no situation better, it seems he is unsafe to be home off of IV antibiotics until the amputation. Therefore continue current care, he is currently stable given the current situation (3) End-stage renal disease on hemodialysis: Continue HD as per nephrology (4) Diabetes: continue Levemir, Novolog SS ordered Continue to follow sugars, sugars have shown good control over the last 24 hours, adjust basal bolus as needed (5) Secondary hyperparathyroidism of renal origin: Noted Other: DVT prophylaxis SCD (pharmacologic contraindicated related to his anemia requiring transfusion) PT/OT ordered, anticipate disposition to rehab post amputation. Subjective Getting dialysis when I see him, no current complaints. Awaiting surgery next week. Review of Systems All systems reviewed & are unremarkable except as noted in HPI & below Physical Exam Vital Signs (Past 24 Hours): Last Vital Signs Temp 37.2 C 09/26/18 15:15 Pulse 59 L 09/26/18 15:15 Resp 14 09/26/18 12:09 BP 162/68 H 09/26/18 15:15 Pulse Ox 100 09/26/18 12:09 Physical Exam: General he is awake alert oriented x3 pleasant no acute distress. HEENT normocephalic atraumatic mucous members moist. Breathing is unlabored no accessory muscle use. Skin shows no rashes no pallor or icterus. He has no tracking erythema up his leg.
[2018-09-27] MEDS: IMIPENEM/CILASTATIN SODIUM 200 MG in DEXTROSE 5% 100 ML IV SCH ×4 (03:27→20:53)
--- NOTE | 2018-09-27 09:51 | Nephrology Progress Note ---
Date of Service September 27, 2018 Assessment & Plan (1) ESRD on dialysis: ESRD on HD via left AVF. Admitted with acute blood loss anemia related to bleeding ulcer on foot. Received 2 units of PRBC. Hemoglobin has been relatively stable. Has chronic ischemic ulcer with gangrene of left foot and osteomyelitis. Left below-knee amputation is planned. -- HD completed yesterday. BP and volume status are currently appropriate. -- Maintain TTS scheduled for daiylsis -- Repeat metabolic profile and CBC tomorrow AM. -- Renal diet. -- PO4 acceptable. Continue Phoslo as Rx. -- Medications are appropriately dosed for kidney function. (2) Anemia: -- EPO 10594 units provided with HD yesterday. -- Check iron profile with next set of labs. (3) Osteomyelitis: -- On Imipenem as per ID. -- BKA planned for early next week. (4) Hypertension: -- BP and volume status are acceptable. (5) Secondary hyperparathyroidism of renal origin: -- Phoslo QAC. (6) Proteinuria: Subjective Mr. Quinonez was seen & examined in his hospital room this morning. No fevers or chills. He denies significant pain. He denies palpitations, angina, or dypsnea. HHe does not have significant fluid retention or edema. Danielito tolerated HD well yesterday. Net UF 3 L. It is noted that he has been below his EDW. Review of Systems All systems reviewed & are unremarkable except as noted in HPI & below Physical Exam Vital Signs (Past 24 Hours): Last Vital Signs Temp 36.3 C L 09/27/18 07:29 Pulse 77 09/27/18 07:29 Resp 18 09/27/18 07:29 BP 118/52 L 09/27/18 07:29 Pulse Ox 95 09/27/18 07:29 Constitutional: + morbidly obese; no acute distress Eyes: no scleral abnormality and no corneal abnormality ENMT: Mouth: no oral mucosal abnormality and oral mucous membranes not dry Neck: normal visual inspection and + thick neck Respiratory: no respiratory distress Auscultation: lungs clear to auscultation bilaterally Cardiovascular: Heart Sounds: normal S1, normal S2 and + murmur Extremities: no edema Gastrointestinal (Abdomen): Percussion/Palpation: abdomen soft; abdomen nontender Musculoskeletal: Extremities: no cyanosis Skin: no rashes, warm and dry Neurologic: Motor/Sensory: no tremor and no asterixis Psychiatric: Eye Contact: good eye contact Affect: euthymic affect Mood: no depressed mood Results & Data Laboratory Results Laboratory Results - last 24 hr 09/26/18 09/26/18 09/26/18 12:02 17:15 20:32 POC Glucose 116 H 98 118 H 09/27/18 08:11 POC Glucose 109 H Laboratory Tests 09/26/18 06:59 Sodium 133 L
[2018-09-27] MEDS: METOPROLOL TARTRATE 50 MG TAB PO SCH ×2 (09:53→20:54)
[2018-09-27] MEDS: AMLODIPINE BESYLATE 5 MG TAB PO SCH (09:53)
[2018-09-27] MEDS: DOCUSATE SODIUM 100 MG CAP PO SCH ×2 (09:54→20:54)
[2018-09-27] MEDS: FERROUS SULFATE 325 MG TAB PO SCH ×2 (09:54→18:43)
[2018-09-27] MEDS: LISINOPRIL 40 MG TAB PO SCH (09:54)
[2018-09-27] MEDS: NEPHROCAPS PO SCH (09:54)
[2018-09-27] MEDS: CALCIUM ACETATE 667 MG CAP PO SCH ×3 (09:55→18:32)
[2018-09-27] MEDS: INSULIN GLARGINE SOLOSTAR 100 UNITS/ML 3 ML PEN SQ SCH (09:56)
[2018-09-27] MEDS: INSULIN ASPART 100 UNITS/ML 3 ML PEN SC SCH ×4 (09:57→21:12)
[2018-09-27 12:50] LABS: Hepatitis B Surface Antibody Non-Immune
[2018-09-27 13:00] LABS: Hepatitis B Surface Antigen Neg (Neg)
--- NOTE | 2018-09-27 17:33 | Hospitalist Progress Note ---
Date of Service September 27, 2018 Assessment & Plan (1) Acute blood loss anemia: Has been given a total of 4 units this admission Continue to follow closely, workup further if he continues to drop, but has been stable, follow periodically (2) Wound of foot: Continue Primaxin, for amputation once able. Will hopefully be able to be done next week, after discussion with other members of the team and no situation better, it seems he is unsafe to be home off of IV antibiotics until the amputation. Therefore continue current care, he is currently stable given the current situation, foot with significant ulceration and necrotic tissue but no erythema (3) End-stage renal disease on hemodialysis: Continue HD as per nephrology (4) Diabetes: continue Levemir, Novolog SS ordered Continue to follow sugars, sugars have shown good control ongoing, continue current care. (5) Secondary hyperparathyroidism of renal origin: Noted Other: DVT prophylaxis SCD (pharmacologic contraindicated related to his anemia requiring transfusion) PT/OT ordered, anticipate disposition to rehab post amputation. Subjective Feeling okay. No new complaints. No fevers chills or sweats. No foot pain. Review of Systems All systems reviewed & are unremarkable except as noted in HPI & below Physical Exam Vital Signs (Past 24 Hours): Last Vital Signs Temp 37.2 C 09/27/18 15:43 Pulse 67 09/27/18 15:43 Resp 16 09/27/18 15:43 BP 175/68 H 09/27/18 15:43 Pulse Ox 97 09/27/18 15:43 Physical Exam: General awake pleasant no distress, HEENT normocephalic atraumatic mucous membranes are moist. Skin shows no rashes no pallor or icterus. Left foot with necrotic toe a large ulcerations areas of macerated tissue, fortunately no tracking erythema.
[2018-09-28] MEDS: IMIPENEM/CILASTATIN SODIUM 200 MG in DEXTROSE 5% 100 ML IV SCH ×4 (03:06→21:42)
[2018-09-28 06:17] LABS: Hematocrit (blood only) 26.1 % (42-52); Hemoglobin 8.4 g/dL (14.0-18.0); Mean Corpuscular Hgb Conc 32.2 g/dL (32-36); Mean Corpuscular Volume 91.9 fL (80-100); Mean Platelet Volume 9.4 fL (7.4-10.4); Platelet Count 274 K/uL (130-400); RDW Coefficient of Variation 15.5 % (11.5-14.5); RDW Standard Deviation 52.5 fL (36.4-46.3); Red Blood Count 2.84 M/uL (4.7-6.1); White Blood Count 10.95 K/uL (4.8-10.8)
[2018-09-28 07:05] LABS: Calcium 8.6 mg/dl (8.5-10.1); Est GFR (African American) 10.1; Est GFR (Non-African American) 8.7; Ferritin 684.5 ng/ml (8-388); Potassium 4.5 mmol/L (3.5-5.1)
--- NOTE | 2018-09-28 07:58 | Progress Note ---
DATE: 09/28/2018 SUBJECTIVE: A 58-year-old gentleman severe chronic diabetic admitted with a left foot infection. Infection is essentially stable. Has not made any progress. Continues to have a terrible odor and some discharge. Not a lot of cellulitis. He has elected to proceed with a below knee amputation. OBJECTIVE: VITAL SIGNS: Temperature 37.2. Vital signs stable. GENERAL: Physical examination reveals a pleasant poorly kept obese, middle-aged male. I woke him up this morning. EXTREMITIES: Examination of the left foot reveals the dressing in place. He has got some significant drainage on it. He continues to have a terrible odor. Not a lot of cellulitis. He has got multiple open wounds. He is densely, neurologically insensate. ASSESSMENT: A 58-year-old gentleman with severe end-stage renal disease secondary to diabetes and diabetic neuropathy with a left foot chronic infection including osteomyelitis and significant ulcers. Not responsive to conservative care. This is something that is not going to ever heal short of below-knee amputation. PLAN: We had discussed this with the patient over a week ago. He now would like to proceed with a below-knee amputation. I think that is the only solution to get this healed up. The risks and benefits of this procedure were explained to the patient including but not limited to DVT, PE, , infection, neurological injury, vascular injury, bleeding problem, pain, limited range of motion, stiffness, failure of the wound to heal, need for further surgery in the future. I did tell him that there is no guarantee this will heal as he does have some vascular changes above. I think it gives him his best chance. He would like to proceed. We will continue DVT prophylaxis including TEDs and SCDs. He is not a good candidate for other anticoagulation due to his anemia. I will continue with medical management. We will plan on doing this tomorrow. Keep him n.p.o. after midnight. We need to be typed and screened as it is likely he might need a little bit of blood. SHERMAN
[2018-09-28] MEDS: FERROUS SULFATE 325 MG TAB PO SCH ×2 (08:31→18:13)
[2018-09-28] MEDS: CALCIUM ACETATE 667 MG CAP PO SCH ×3 (08:32→18:12)
[2018-09-28] MEDS: DOCUSATE SODIUM 100 MG CAP PO SCH ×2 (08:34→20:32)
[2018-09-28] MEDS: AMLODIPINE BESYLATE 5 MG TAB PO SCH (08:36)
[2018-09-28] MEDS: NEPHROCAPS PO SCH (08:36)
[2018-09-28] MEDS: LISINOPRIL 40 MG TAB PO SCH (08:37)
[2018-09-28] MEDS: INSULIN ASPART 100 UNITS/ML 3 ML PEN SC SCH ×4 (08:50→20:34)
[2018-09-28] MEDS: INSULIN GLARGINE SOLOSTAR 100 UNITS/ML 3 ML PEN SQ SCH (08:57)
[2018-09-28] MEDS: METOPROLOL TARTRATE 50 MG TAB PO SCH ×2 (09:24→20:33)
--- NOTE | 2018-09-28 09:56 | Nephrology Progress Note ---
Date of Service September 28, 2018 Assessment & Plan (1) ESRD on dialysis: ESRD on HD via left AVF (TTS schedule). Admitted with acute blood loss anemia related to bleeding ulcer on foot. Received 2 units of PRBC. Hemoglobin has been relatively stable. Has chronic ischemic ulcer with gangrene of left foot and osteomyelitis. Left below-knee amputation is planned. -- HD completed Friday. BP and volume status are currently appropriate. -- Maintain TTS scheduled for dialysis. Will ask HD medical staff physician to coordinate dialysis schedule w/ surgery for Friday -- Repeat metabolic profile and CBC tomorrow AM. -- Renal diet. -- PO4 acceptable. Continue Phoslo as Rx. -- Medications are appropriately dosed for kidney function. (2) Anemia: -- Will provide ERI w/ HD -- Iron saturation 21% w/ ferritin ~ 600 (3) Osteomyelitis: -- On Imipenem as per ID. -- BKA planned for Friday (4) Hypertension: -- BP and volume status are acceptable. (5) Secondary hyperparathyroidism of renal origin: -- Phoslo QAC. (6) Proteinuria: Subjective Mr. Quinonez was seen & examined in his hospital room this morning. No fever, angina, or dypsnea. He does not have significant fluid retention or edema. Danielito tolerated HD well Friday w/ net UF 3 L. It is noted that he has been below his EDW. Physical Exam Vital Signs (Past 24 Hours): Last Vital Signs Temp 37.1 C 09/28/18 07:53 Pulse 76 09/28/18 07:53 Resp 16 09/28/18 07:53 BP 161/67 H 09/28/18 07:53 Pulse Ox 99 09/28/18 07:53 Eyes: PERRL, conjunctivae normal, anicteric sclerae Neck: trachea midline, no thyromegaly Respiratory: normal respiratory effort, lungs clear to auscultation Cardiovascular: RRR, no murmur, no edema Gastrointestinal (Abdomen): normal bowel sounds, soft, nontender, no hepatosplenomegaly Results & Data Laboratory Results Laboratory Tests 09/28/18 09/28/18 06:01 06:01 WBC 10.95 H Hgb 8.4 L Hct 26.1 L Plt Count 274 Sodium 134 L Potassium 4.5 Chloride 100 Carbon Dioxide 23 BUN 65 H Creatinine 6.50 H* Glucose 119 H
--- NOTE | 2018-09-28 17:25 | Infectious Disease Progress Nt ---
Date of Service September 28, 2018 Assessment & Plan (1) Infection of left foot: Patient with chronic left foot infection following previous surgery, with cultures growing gram-negative bacilli, Alcaligenes,, and Prevotella. Patient has agreed to BK amputation. We will continue antibiotics until surgery tomorrow. Will follow. Subjective Patient seen in follow-up for left foot infection. Now on imipenem, appears to be tolerating well. Remains afebrile. Slight improvement in left foot noted. Appears to be agreeable to BKA. Physical Exam Vital Signs (Past 24 Hours): Last Vital Signs Temp 36.3 C L 09/28/18 14:59 Pulse 74 09/28/18 14:59 Resp 18 09/28/18 14:59 BP 174/68 H 09/28/18 14:59 Pulse Ox 95 09/28/18 14:59 Constitutional: WD/WN, vitals as above comfortable; no acute distress Eyes: PERRL, conjunctivae normal, anicteric sclerae ENMT: external ear and nose normal, oropharynx normal Neck: trachea midline, no thyromegaly neck nontender Respiratory: normal respiratory effort, lungs clear to auscultation normal percussion; no respiratory distress Cardiovascular: Rate/Rhythm: regular rate and regular rhythm Heart Sounds: normal S1 and normal S2; no gallop, no murmur and no cardiac rub Gastrointestinal (Abdomen): normal bowel sounds, soft, nontender, no hepatosplenomegaly Musculoskeletal: no cyanosis or clubbing, extremities motor strength 5/5 Skin: no rashes, warm and dry + wound (Open wound left foot slightly improved) Neurologic: moves all extremities and awake; no focal motor deficits Motor/Sensory: no sensory deficit Psychiatric: A+Ox3, euthymic affect Lymphatic: no cervical or axillary lymphadenopathy no inguinal lymphadenopathy Results & Data Laboratory Results Short CBC 09/28/18 Range/Units 06:01 WBC 10.95 H (4.8-10.8) K/uL Hgb 8.4 L (14.0-18.0) g/dL Hct 26.1 L (42-52) % Plt Count 274 (130-400) K/uL BMP 09/28/18 06:01 Sodium 134 L Potassium 4.5 Chloride 100 Carbon Dioxide 23 BUN 65 H Creatinine 6.50 H* Glucose 119 H Calcium 8.6 Diagnostic Findings Microbiology 09/14/18 10:30 Foot,Left Gram Stain - Final 09/14/18 10:30 Foot,Left Deep Wound Culture - Final Citrobacter freundii Alcaligenes faecalis Prevotella bivia Prevotella corporis
--- NOTE | 2018-09-28 18:28 | Hospitalist Progress Note ---
Date of Service September 28, 2018 Assessment & Plan (1) Acute blood loss anemia: (2) Wound of foot: (3) End-stage renal disease on hemodialysis: (4) Diabetes: (5) Secondary hyperparathyroidism of renal origin: 58-year-old white male admitted on September 13, 2018 because of left lower extremity chronic wound, in the beginning of admission patient declined the recommendations of amputation, wanted to try IV antibiotic and then decide, and he decides to agree to amputation, Dr. Cuevas saw him planning to amputation tomorrow Left foot infected wound, s/p amputation of 5th toe and 5th metatarsal and extensive debridement of foot for underlying infection wound vac removed 09/14, extensive tissue, worsening infection despite therapy wound culture showed: Gram negative bacilli, Alcaligenes faecalis, Infectious disease recommends antibiotic can continue at the amputation tomorrow Accelerated hypertension: Increase amlodipine from 5 mg to 10mg Possible acute blood loss anemia upon admission: Hemoglobin improved after transfusion, HB stable, End-stage renal disease on hemodialysis: HD cont Diabetic, secondary hypothyroidism, continue current medication, DVT prophylaxis is covered consulting technical manager consult for discharge Subjective Doing fair, no complaint, Denies fever chills, Denies chest pain palpitation Denies cough sputum shortness of breath Eating good no nausea vomiting abdominal pain diarrhea Physical Exam Vital Signs (Past 24 Hours): Last Vital Signs Temp 36.3 C L 09/28/18 14:59 Pulse 74 09/28/18 14:59 Resp 18 09/28/18 14:59 BP 174/68 H 09/28/18 14:59 Pulse Ox 95 09/28/18 14:59 Physical Exam: General Appearance: obesity, pleasant, conversational, smiling, WD/WN, no apparent distress, Eyes: normal inspection, PERRL, EOMI, sclerae normal ENT: normal ENT inspection, hearing grossly normal, pharynx normal Neck: supple, no adenopathy, thyroid normal, no JVD, no carotid bruits, trachea midline Respiratory/Chest: chest non-tender, significantly decreased breath sounds, no respiratory distress, no accessory muscle use, breath sounds, rales, wheezing Cardiovascular: regular rate, rhythm, no JVD, no murmur Abdomen: normal bowel sounds, non tender, soft, no organomegaly, Extremities: Left lower extremity in dressing, Neurologic/Psychiatric: shift supervisor II-XII nml as tested, no motor/sensory deficits, alert, normal mood/affect, oriented x 3 Results & Data Laboratory Results Laboratory Results - last 24 hr 09/27/18 09/28/18 09/28/18 20:34 06:01 06:01 WBC 10.95 H RBC 2.84 L Hgb 8.4 L Hct 26.1 L MCV 91.9 MCH 29.6 MCHC 32.2 RDW Std Deviation 52.5 H RDW Coeff of Dorcas 15.5 H Plt Count 274 MPV 9.4 Sodium 134 L Potassium 4.5 Chloride 100 Carbon Dioxide 23 Anion Gap 11.0 BUN 65 H Creatinine 6.50 H* Est Cr Clr Drug Dosing 21.0 Est GFR ( Amer) 10.1 Est GFR (Non-Af Amer) 8.7 BUN/Creatinine Ratio 10.0 Glucose 119 H POC Glucose 110 H Calcium 8.6 Iron 36 Transferrin 123 L Transferrin % Sat 21 Ferritin 684.5 H Blood Type Antibody Screen 09/28/18 09/28/18 09/28/18 08:01 12:12 15:00 WBC RBC Hgb Hct MCV MCH MCHC RDW Std Deviation RDW Coeff of Dorcas Plt Count MPV Sodium Potassium Chloride Carbon Dioxide Anion Gap BUN Creatinine Est Cr Clr Drug Dosing Est GFR ( Amer) Est GFR (Non-Af Amer) BUN/Creatinine Ratio Glucose POC Glucose 119 H 130 H Calcium Iron Transferrin Transferrin % Sat Ferritin Blood Type A Negative Antibody Screen NEGATIVE 09/28/18 17:05 WBC RBC Hgb Hct MCV MCH MCHC RDW Std Deviation RDW Coeff of Dorcas Plt Count MPV Sodium Potassium Chloride Carbon Dioxide Anion Gap BUN Creatinine Est Cr Clr Drug Dosing Est GFR ( Amer) Est GFR (Non-Af Amer) BUN/Creatinine Ratio Glucose POC Glucose 110 H Calcium Iron Transferrin Transferrin % Sat Ferritin Blood Type Antibody Screen
[2018-09-28] MEDS ORDERED: AMLODIPINE BESYLATE 5 MG TAB PO ONE (18:31)
[2018-09-29] MEDS: IMIPENEM/CILASTATIN SODIUM 200 MG in DEXTROSE 5% 100 ML IV SCH ×3 (03:11→19:23)
--- NOTE | 2018-09-29 04:43 | Anesthesiology Consultation ---
Date of Service September 29, 2018 ESRD Anemia HTN Super Obesity Diabetes Gangrenous Foot Assessment & Plan Chart Review Chart Review: Acceptable Risk for Surgery and Patient seen in Pre Admission Testing Consults Requested none ASA ASA4 Proposed Anesthesia Anesthesia Type: General Regional Laterality: Left Site: Femoral and Popliteal Risk / Benefits Reviewed With: PT / POA / Parent / Guardian, Accepts Plan and Informed Consent Obtained NPO Date Last Intake of Fluids: 09/28/18 Time Last Intake of Fluids: 23:59 Date Last Intake of Solids: 09/28/18 Time Last Intake of Solids: 23:59 History Surgery Operation Date: 09/29/18 14:20 Proposed Procedures p Left Leg Below Knee Amputation - Jareth Cuevas MD Height/Weight Height: 6 ft 2 in Weight: 168.7 kg Allergies Allergy/AdvReac Type Severity Reaction Status Date / Time doxycycline Allergy Unknown Rash Verified 09/28/18 19:13 Medications Home Medications Medication Instructions Recorded Confirmed Last Taken calcium acetate 2,001 mg PO TIDM #0 10/17/17 09/13/18 Unknown clopidogrel 75 mg PO DAILY #0 tab 10/17/17 09/13/18 Unknown metoprolol tartrate 50 mg PO Q12 #0 tab 10/17/17 09/13/18 Unknown bisacodyl 10 mg MA DAILY PRN 09/08/18 09/13/18 Unknown ceftriaxone 1 dose IV DAILY 09/08/18 09/13/18 Unknown dextrose 50 % in water (D50W) 50 ml IV DIRECTED 09/08/18 09/13/18 Unknown docusate sodium 100 mg PO BID 09/08/18 09/13/18 Unknown ferrous sulfate 325 mg PO BID 09/08/18 09/13/18 Unknown glucagon HCl 1 dose SUBCUT DAILY PRN 09/08/18 09/13/18 Unknown insulin glargine [Lantus U-100 10 unit SUBCUT DAILY 09/08/18 09/13/18 Unknown Insulin] polyethylene glycol 3350 [Miralax] 17 g PO DAILY PRN 09/08/18 09/13/18 Unknown sennosides-docusate sodium 1 tab PO DAILY PRN 09/08/18 09/13/18 Unknown [Senokot-S] vancomycin 1 dose IV DIRECTED 09/08/18 09/13/18 Unknown acetaminophen [Tylenol] 650 mg PO Q4 PRN 09/13/18 09/13/18 Unknown amlodipine [Norvasc] 5 mg PO DAILY 09/13/18 09/13/18 Unknown darbepoetin tulio in polysorbat 1 dose SUBCUT DIRECTED 09/13/18 09/13/18 Unknown [Aranesp (in polysorbate)] dextrose [Glucose Gel] 1 dose PO DIRECTED PRN 09/13/18 09/13/18 Unknown insulin aspart U-100 [Novolog 1 sliding scale dose SUBCUT UD 09/13/18 09/13/18 Unknown U-100 Insulin aspart] lisinopril 40 mg PO DAILY 09/13/18 09/13/18 Unknown Active Medications Generic Name Dose Route Start Last Admin Trade Name Freq PRN Reason Stop Dose Admin Amlodipine Besylate 10 mg 09/29/18 09:00 09/29/18 13:25 Norvasc PO 10/29/18 08:59 10 mg DAILY VIN Administration Calcium Acetate 2,001 mg 09/13/18 17:00 09/29/18 12:28 Phoslo PO 10/13/18 16:59 Not Given TIDM VIN Docusate Sodium 100 mg 09/16/18 10:15 09/29/18 08:07 Colace PO 10/16/18 10:14 100 mg BID VIN Administration Ferrous Sulfate 325 mg 09/13/18 17:00 09/29/18 08:07 Feosol PO 10/13/18 16:59 325 mg BIDM VIN Administration Hydralazine HCl 20 mg 09/16/18 19:13 09/27/18 22:31 Hydralazine Hcl IV 10/16/18 19:12 20 mg Q6 PRN Administration Hypertension Imipenem/Cilastatin Sodium 200 108 mls @ 100 mls/hr 09/26/18 15:00 09/29/18 13:50 mg/ Dextrose IV 10/30/18 14:59 Infused Q6H [facility] Infusion Protocol Insulin Aspart 0 units 09/29/18 06:00 09/29/18 12:40 Novolog Flexpen SC 10/29/18 05:59 Not Given Q6 VIN Insulin Glargine 10 units 09/14/18 09:00 09/29/18 08:15 Lantus Solostar Pen SQ 10/14/18 08:59 Not Given DAILY VIN Lisinopril 40 mg 09/14/18 09:00 09/29/18 13:24 Zestril PO 10/14/18 08:59 40 mg DAILY VIN Administration Metoprolol Tartrate 50 mg 09/13/18 21:00 09/29/18 12:41 Lopressor PO 10/13/18 20:59 Not Given Q12 VIN Vitamin B Complex/Folic Acid 1 cap 09/20/18 09:45 09/29/18 08:07 Nephrocaps PO 10/20/18 09:44 1 cap QAM VIN Administration Past Medical History Medical History Amputated toe of left foot Amputated toe of right foot Acute kidney injury (Acute) Anasarca (Acute) Bilateral cellulitis of lower leg (Acute) ESRD (end stage renal disease) on dialysis (Acute) Gangrene (Acute) Gangrene (Acute) HTN (hypertension) (Acute) Hyperparathyroidism due to end stage renal disease on dialysis (Acute) Metabolic acidosis (Acute) Nephrotic syndrome (Acute) Obesity (Acute) Osteomyelitis (Acute) Proteinuria (Acute) Past Family History Family History Other Diabetes Family history non-contributory HTN (hypertension) Past Surgical History Surgical History History of angioplasty of peripheral vessel S/P arteriovenous (AV) fistula creation Status post incision and drainage left foot wound Social History Smoking Status: Never smoker Do You Dip or Chew Tobacco: No Hx Alcohol Use: No Hx Substance Use: No Physical Exam Vital Signs Last Vital Signs Temp 36.7 C 09/29/18 14:19 Pulse 76 09/29/18 14:19 Resp 20 09/29/18 14:19 BP 152/75 H 09/29/18 14:19 Pulse Ox 100 09/29/18 14:19 Constitutional + morbidly obese ENMT Mouth: no TMJ abnormality Thyromental Distance: > or= 3.5 Finger Breadths Mallampati Class: III Neck normal visual inspection and + thick neck Respiratory normal respiratory effort Cardiovascular Rate/Rhythm: regular rate and regular rhythm Neurologic moves all extremities Psychiatric Orientation: alert Testing Electrocardiogram Date: 09/13/18 Findings: + NSR @ (64) Laboratory Results 09/29/18 08:39 09/29/18 08:39 Blood Type A Negative 09/28/18 15:00 Antibody Screen NEGATIVE 09/28/18 15:00 PT 11.3 Seconds (9.0-12.0) 09/13/18 12:10 INR 1.1 (0.9-1.1) 09/13/18 12:10 APTT 24.8 Seconds (21.0-31.0) 09/13/18 12:10 09/14/18 10:30 Gram Stain - Final Foot,Left Deep Wound Culture - Final Citrobacter freundii Alcaligenes faecalis Prevotella bivia Prevotella corporis 09/29/18 09/29/18 12:17 05:50 POC Glucose 109 H 113 H
[2018-09-29] MEDS ORDERED: Nursing to Pharmacy Communication ONE ×2 (04:48→20:48)
[2018-09-29] MEDS ORDERED: CARBOHYDRATES FOR HYPOGLYCEMIA PO PRN (05:00)
[2018-09-29] MEDS ORDERED: GLUCOSE 10 TABS/TUBE PO PRN (05:00)
[2018-09-29] MEDS ORDERED: DEXTROSE 50% 50 ML SYRINGE IV PRN (05:00)
[2018-09-29] MEDS ORDERED: GLUCOSE 40% GEL 15 GM TUBE PO PRN ×2 (05:00→18:26)
[2018-09-29] MEDS ORDERED: GLUCAGON FOR INJ 1 MG VIAL IM PRN (05:00)
[2018-09-29] MEDS: INSULIN ASPART 100 UNITS/ML 3 ML PEN SC SCH ×4 (06:05→21:26)
[2018-09-29] MEDS ORDERED: EPOETIN ALFA 10,000 UNITS/ML VIAL IV ONE (07:00)
[2018-09-29] MEDS ORDERED: SODIUM CHLORIDE 0.9% 1000ML 1,000 ML IV PRN (07:00)
[2018-09-29] MEDS: CALCIUM ACETATE 667 MG CAP PO SCH ×3 (08:06→19:13)
[2018-09-29] MEDS: NEPHROCAPS PO SCH (08:07)
[2018-09-29] MEDS: DOCUSATE SODIUM 100 MG CAP PO SCH ×2 (08:07→20:40)
[2018-09-29] MEDS: FERROUS SULFATE 325 MG TAB PO SCH ×2 (08:07→19:22)
[2018-09-29] MEDS: INSULIN GLARGINE SOLOSTAR 100 UNITS/ML 3 ML PEN SQ SCH (08:15)
[2018-09-29 09:05] LABS: Hematocrit (blood only) 26.7 % (42-52); Hemoglobin 8.6 g/dL (14.0-18.0); Mean Corpuscular Hgb Conc 32.2 g/dL (32-36); Mean Corpuscular Volume 91.4 fL (80-100); Mean Platelet Volume 9.7 fL (7.4-10.4); Platelet Count 310 K/uL (130-400); RDW Coefficient of Variation 15.6 % (11.5-14.5); RDW Standard Deviation 51.5 fL (36.4-46.3); Red Blood Count 2.92 M/uL (4.7-6.1); White Blood Count 12.56 K/uL (4.8-10.8)
--- NOTE | 2018-09-29 09:08 | Nephrology Progress Note ---
Date of Service September 29, 2018 Assessment & Plan (1) ESRD on dialysis: ESRD on HD via left AVF (TTS schedule). Admitted with acute blood loss anemia related to bleeding ulcer on foot. Received 2 units of PRBC. Hemoglobin has been relatively stable. Has chronic ischemic ulcer with gangrene of left foot and osteomyelitis. Left below-knee amputation is planned. -- HD scheduled for this am. Orders entered into EMR and HD RN notifies -- Maintain TTS scheduled for dialysis. -- Repeat metabolic profile and CBC tomorrow AM. -- Renal diet. -- PO4 acceptable. Continue Phoslo as Rx. (2) Anemia: -- Will provide ERI w/ HD -- Iron saturation 21% w/ ferritin ~ 600 (3) Osteomyelitis: -- On Imipenem as per ID. -- BKA planned for Friday (4) Hypertension: -- BP and volume status are acceptable. (5) Secondary hyperparathyroidism of renal origin: -- Phoslo QAC. (6) Proteinuria: Subjective Mr. Quinonez was seen & examined in his hospital room this morning. No fever, angina, or dypsnea. He does not have significant fluid retention or edema. Mr. Quinonez is preparing for HD this am. He is scheduled for orthopedic surgery this afternoon. Physical Exam Vital Signs (Past 24 Hours): Last Vital Signs Temp 37.3 C 09/29/18 07:25 Pulse 84 09/29/18 07:25 Resp 16 09/29/18 07:25 BP 170/74 H 09/29/18 07:25 Pulse Ox 96 09/29/18 07:25 Eyes: PERRL, conjunctivae normal, anicteric sclerae Neck: trachea midline, no thyromegaly Respiratory: normal respiratory effort, lungs clear to auscultation Cardiovascular: RRR, no murmur, no edema Extremities: + AV fistula (+ bruit) Gastrointestinal (Abdomen): normal bowel sounds, soft, nontender, no hepatosplenomegaly Results & Data Laboratory Results Laboratory Tests 09/29/18 08:39 WBC 12.56 H Hgb 8.6 L Hct 26.7 L Plt Count 310
[2018-09-29 09:40] LABS: BUN Creatinine Ratio 10.9 (10-20); Calcium 8.7 mg/dl (8.5-10.1); Creatinine Clr Calc Pharmacy 17.7 ml/min; Est GFR (African American) 8.3; Est GFR (Non-African American) 7.2
[2018-09-29] MEDS: METOPROLOL TARTRATE 50 MG TAB PO SCH ×2 (12:41→20:40)
[2018-09-29] MEDS: LISINOPRIL 40 MG TAB PO SCH (13:24)
[2018-09-29] MEDS: AMLODIPINE BESYLATE 5 MG TAB PO SCH (13:25)
--- NOTE | 2018-09-29 14:54 | History & Physical Bridge Note ---
Date of Service September 29, 2018 History & Physical Bridge Note I have examined the patient, reviewed the History & Physical and in the interval since the performance of the History & Physical I have noted the following changes of clinical significance: no changes noted
[2018-09-29] MEDS ORDERED: MIDAZOLAM HCL 1 MG/ML 2ML VIAL ONE ×2 (14:59→15:01)
[2018-09-29] MEDS ORDERED: fentaNYL citrate 100 MCG/2 ML VIAL ONE ×4 (14:59→17:12)
[2018-09-29] MEDS ORDERED: BUPIVACAINE/EPINEPHRINE 0.5% MPF 1:200,000 30 ML VIAL ONE (15:01)
[2018-09-29] MEDS ORDERED: DEXAMETHASONE SOD INJ 4 MG/ML VIAL ONE (15:01)
[2018-09-29] MEDS ORDERED: PROMETHAZINE HCL 6.25 MG in SODIUM CHLORIDE 0.9% 50 ML IV PRN (15:21)
[2018-09-29] MEDS ORDERED: ePHEDrine sulfate 50 MG/ML AMP IV PRN (15:21)
[2018-09-29] MEDS ORDERED: ATROPINE SULFATE 0.1 MG/ML 10ML SYR IV PRN (15:21)
[2018-09-29] MEDS ORDERED: ONDANSETRON INJ 2 MG/ML 2 ML VIAL IV PRN (15:21)
[2018-09-29] MEDS ORDERED: SUCCINYLCHOLINE CHLORIDE 20 MG/ML 10 ML VIAL ONE (15:43)
[2018-09-29] MEDS ORDERED: ONDANSETRON INJ 2 MG/ML 2 ML VIAL ONE (15:43)
[2018-09-29] MEDS ORDERED: PROPOFOL IV EMULSION 10 MG/ML 20 ML VIAL IV ONE ×2 (15:43→15:52)
[2018-09-29] MEDS ORDERED: LIDOCAINE HCL 2% 2 ML VIAL/AMP(20MG/ML) INFIL ONE (15:43)
[2018-09-29] MEDS ORDERED: PHENYLEPHRINE 100MCG/ML 5ML SYR ONE (16:21)
[2018-09-29] MEDS ORDERED: ROCURONIUM BROMIDE 10 MG/ML 5 ML VIAL ONE (16:21)
--- NOTE | 2018-09-29 16:24 | Hospitalist Progress Note ---
Date of Service September 29, 2018 Assessment & Plan (1) Infection of left foot: (2) Stress and adjustment reaction: (3) Wound of foot: (4) Acute blood loss anemia: (5) Diabetes: (6) End-stage renal disease on hemodialysis: (7) Hypertension: (8) Anemia due to chronic kidney disease: (9) ESRD on dialysis: 58-year-old white male admitted on September 13, 2018 because of left lower extremity chronic wound, in the beginning of admission patient declined the recommendations of amputatio n, wanted to try IV antibiotic and then decide, and he decided to amputation Left foot infected wound, s/p amputation of 5th toe and 5th metatarsal and extensive debridement of foot for underlying infection wound vac removed 09/14, extensive tissue, worsening infection despite therapy wound culture showed: Gram negative bacilli, Alcaligenes faecalis, Plan to amputation of nephew today infectious disease recommends antibiotic can continue after the amputation Accelerated hypertension: Increased amlodipine from 5 mg to 10mg yesterday Possible acute blood loss anemia upon admission: Hemoglobin improved after transfusion, HB stable, hemoglobin 8.6 from 8.4 yesterday End-stage renal disease on hemodialysis: HD cont Diabetic, secondary hypothyroidism, continue current medication, DVT prophylaxis is covered build manager consult for discharge Subjective Nursing staff report was very anxious, When I see him he was in rest, On dialysis no anxious, ready for procedure Denies fever chills, Denies chest pain palpitation Denies cough sputum shortness of breath Eating good no nausea vomiting abdominal pain diarrhea Physical Exam Vital Signs (Past 24 Hours): Last Vital Signs Temp 36.7 C 09/29/18 14:19 Pulse 76 09/29/18 14:19 Resp 20 09/29/18 14:19 BP 152/75 H 09/29/18 14:19 Pulse Ox 100 09/29/18 14:19 Physical Exam: General Appearance: obesity, no obvious anxious, WD/WN, no apparent distress, Eyes: normal inspection, PERRL, EOMI, sclerae normal ENT: normal ENT inspection, hearing grossly normal, pharynx normal Neck: supple, no adenopathy, thyroid normal, no JVD, no carotid bruits, trachea midline Respiratory/Chest: chest non-tender, significantly decreased breath sounds, no respiratory distress, no accessory muscle use, breath sounds, rales, wheezing Cardiovascular: regular rate, rhythm, no JVD, no murmur Abdomen: normal bowel sounds, non tender, soft, no organomegaly, Extremities: Left lower extremity in dressing, Neurologic/Psychiatric: health sciences manager II-XII nml as tested, no motor/sensory deficits, alert, normal mood/affect, oriented x 3 Results & Data Laboratory Results Laboratory Results - last 24 hr 09/28/18 09/28/18 09/29/18 17:05 19:59 05:50 WBC RBC Hgb Hct MCV MCH MCHC RDW Std Deviation RDW Coeff of Dorcas Plt Count MPV Sodium Potassium Chloride Carbon Dioxide Anion Gap BUN Creatinine Est Cr Clr Drug Dosing Est GFR ( Amer) Est GFR (Non-Af Amer) BUN/Creatinine Ratio Glucose POC Glucose 110 H 123 H 113 H Calcium 09/29/18 09/29/18 09/29/18 08:39 08:39 12:17 WBC 12.56 H RBC 2.92 L Hgb 8.6 L Hct 26.7 L MCV 91.4 MCH 29.5 MCHC 32.2 RDW Std Deviation 51.5 H RDW Coeff of Dorcas 15.6 H Plt Count 310 MPV 9.7 Sodium 134 L Potassium 5.0 Chloride 103 Carbon Dioxide 18 L Anion Gap 13.0 H BUN 83 H Creatinine 7.63 H* D Est Cr Clr Drug Dosing 17.7 Est GFR ( Amer) 8.3 Est GFR (Non-Af Amer) 7.2 BUN/Creatinine Ratio 10.9 Glucose 128 H POC Glucose 109 H Calcium 8.7 (1) Anemia due to chronic kidney disease Chronic kidney disease stage: stage 5, not on chronic dialysis Qualified Code(s): N18.5 - Chronic kidney disease, stage 5; D63.1 - Anemia in chronic kidney disease
--- NOTE | 2018-09-29 17:17 | Post Operative Brief Note ---
Immediate Post Op Note v1 Date of Surgery September 29, 2018 Pre & Post Diagnosis Operation Date: 09/29/18 14:20 Pre-Op Diagnosis: gangrene left leg Post-Op Diagnosis: gangrene left leg Procedure Operation Date: 09/29/18 14:20 Actual Procedures p Left Leg Below Knee Amputation(Left) - Jareth Cuevas MD Surgeon Jareth Cuevas MD Traffic Line Painter Himanshu, PAC Estimated Blood Loss 50 Findings Consistent with Post-Op Diagnosis Fluids 200 cc Specimens Left Leg Anesthesia Type General Complications none Disposition Accompanied Patient To Recovery: Yes Disposition: Recovery Room
[2018-09-29] MEDS: fentaNYL citrate 100 MCG/2 ML VIAL IV PRN ×2 (17:38→17:44)
--- NOTE | 2018-09-29 17:57 | Anesthesiology Progress Note ---
Date of Service September 29, 2018 Anesthesia Post Procedure Vital Signs Vital Signs: Temp Pulse Pulse Pulse Pulse Resp BP 09/29/18 17:20 97.7 F 100 H 100 H 2 L 09/29/18 14:19 98.1 F 76 20 09/29/18 13:26 76 09/29/18 13:15 99.0 F 09/29/18 12:45 63 119/47 L 09/29/18 12:20 81 151/70 H 09/29/18 12:00 76 130/71 09/29/18 11:40 79 136/73 09/29/18 11:20 57 L 136/70 09/29/18 11:00 80 122/62 09/29/18 10:40 70 144/74 H 09/29/18 10:20 67 150/68 H 09/29/18 10:00 66 147/64 H 09/29/18 09:40 67 141/69 H 09/29/18 09:20 66 146/67 H 09/29/18 09:00 73 157/86 H 09/29/18 08:51 75 175/86 H 09/29/18 08:45 98.8 F 09/29/18 07:25 99.1 F 84 16 09/28/18 23:06 97.7 F 69 18 09/28/18 20:29 71 BP Pulse Ox 09/29/18 17:20 133/85 100 09/29/18 14:19 152/75 H 100 09/29/18 13:26 154/88 H 09/29/18 13:15 147/78 H 09/29/18 12:45 09/29/18 12:20 09/29/18 12:00 09/29/18 11:40 09/29/18 11:20 09/29/18 11:00 09/29/18 10:40 09/29/18 10:20 09/29/18 10:00 09/29/18 09:40 09/29/18 09:20 09/29/18 09:00 09/29/18 08:51 09/29/18 08:45 09/29/18 07:25 170/74 H 96 09/28/18 23:06 174/76 H 99 09/28/18 20:29 169/53 H Pain Intensity Left Foot: Pain Intensity: 0 Right Leg: Pain Intensity: 3 Notes Mental Status: alert / awake / arousable and participated in evaluation Patient Amnestic to Procedure: Yes Nausea / Vomiting: adequately controlled Pain: adequately controlled Airway Patency, RR, SpO2: stable & adequate BP & HR: stable & adequate Hydration State: stable & adequate Anesthetic Complications: no major complications apparent and Pt Satisfied with anesthetic care
[2018-09-29] MEDS ORDERED: ALUMINUM/MAGNESIUM SUSP 30 ML UDC PO PRN (18:26)
[2018-09-29] MEDS ORDERED: ACETAMINOPHEN 325 MG TAB PO PRN (18:26)
[2018-09-29] MEDS ORDERED: DEXTROSE 50% 50 ML SYRINGE IV SCH (18:26)
[2018-09-29] MEDS ORDERED: MAGNESIUM HYDROXIDE SUSP 30 ML UDC PO PRN (18:26)
[2018-09-29] MEDS ORDERED: DARBEPOETIN ALFA IN POLYSORBAT SQ SCH (18:26)
[2018-09-29] MEDS ORDERED: POLYETHYLENE (MIRALAX) 17 GM PACK PO PRN (18:26)
[2018-09-29] MEDS ORDERED: NON-FORMULARY MEDICATION (Insulin Aspart U-100 1 sliding scale dose) SQ SCH (18:26)
[2018-09-29] MEDS ORDERED: GLUCAGON HCL SQ PRN (18:26)
[2018-09-30] MEDS: IMIPENEM/CILASTATIN SODIUM 200 MG in DEXTROSE 5% 100 ML IV SCH ×3 (00:36→13:29)
--- NOTE | 2018-09-30 04:50 | Operative Report ---
DATE OF OPERATION: 09/29/2018 SURGEON: Jareth Cuevas MD CIRCULATION SUPERVISOR: TRE Diaz PREOPERATIVE DIAGNOSES: Gangrenous left foot with underlying osteomyelitis and chronic soft tissue infection with ischemic necrosis. POSTOPERATIVE DIAGNOSES: Gangrenous left foot with underlying osteomyelitis and chronic soft tissue infection with ischemic necrosis. PROCEDURE PERFORMED: Left below-knee amputation. COMPLICATIONS: None. ESTIMATED BLOOD LOSS: 50 mL FLUID REPLACEMENT: 200 mL of crystalloid fluid replacement. ANESTHESIA: Spinal with regional anesthetic. TOURNIQUET TIME: 38 minutes at 300 mmHg. OPERATIVE INDICATIONS: The patient is a 58-year-old very poorly controlled diabetic with end-stage renal disease as a result and also has morbid obesity. He has undergone previous amputations of his right foot. He has developed a persistent wound in his left foot over the past several months. He did see a local market development executive and had part of his fifth ray removed. Despite this and wound VAC treatment, he has continued to develop persistent infection with a large ulcerated area down to the plantar fascia and the bottom of his foot and complete necrosis of his fourth toe. He has got multiple large deep wounds down to the fascia, which showed no signs of healing. He has been on long-term antibiotics. He elected to proceed with below-knee amputation. OPERATIVE PROCEDURE: The patient was taken to the operating room, identified and placed on operative table in supine position. All contact areas were appropriately padded. IV antibiotics were provided previously based on his inpatient hospital stay regimen. A general anesthetic was implemented by anesthesia team. They did provide a block in the holding area. A left thigh tourniquet was then placed. The left lower extremity dressing was removed and then the foot was scrubbed with Hibiclens then prepped with ChloraPrep and draped in usual sterile fashion. We were very careful due to drape out the necrotic infected area of the foot. The left foot was elevated but not exsanguinated. The tourniquet was placed at 300 mmHg. A elias was made on the anterior jamison 15 cm distal to the joint line for area of the bone resection. I then fashioned anterior and posterior fish mouth flaps of 7 cm in length each. I then made the incision through the skin and through the subcutaneous tissues down through the fascia directly down to the bone anteriorly and through the posterior fascia and the superficial posterior compartment posteriorly. I then elevated the anterior flap off the anterior tibia for a distance of 7 cm to where the bone cut was to be made. I then isolated the anterior compartment muscles and resected them about a centimeter distal to the bone cut and allowed them to retract. The anterior tibial artery and vessels were identified and tied off and then cauterized. The deep peroneal nerve was identified, traction was applied and it was cut and allowed to retract. The superficial peroneal nerve was also identified, traction applied, cut and allowed to retract. I then made the tibial osteotomy 15 cm of the joint line. I exposed the fibula. I made this cut about a centimeter proximal. I then went posteriorly and cut the deep posterior compartment muscles about a centimeter distal to the tibial cut and allowed them to retract. I then took the rest of the leg off of the lateral and the superficial posterior compartment muscle to be intact down to where I had initially made a skin cut. The posterior tibial artery and vein were identified, suture ligated, cut and allowed to retract. The tibial nerve was similarly identified, traction applied, cut sharply and allowed to retract. I then applied some traction to the Achilles tendon remnant and used the amputation knife to thin out the superficial posterior compartment to allow closure. I irrigated the wound extensively. All major vessels were suture ligated. I then let the tourniquet time down for tourniquet time 38 minutes. Hemostasis was assured with use of electrocautery. I did bevel the anterior aspect of the tibia. I then irrigated the wound extensively. I closed the fascia posteriorly to the anterior fascia with #1 Vicryl suture in a [id number] fashion. I then closed the skin with 3-0 nylon suture in simple fashion. Leg was then cleaned, dried and a sterile dressing of Xeroform, 4 x 4s, ABD pad, Kerlix wrap, sterile cast padding, Ruiz bandage were applied. The patient then brought out of general anesthesia and transferred to the recovery room in stable condition. The patient tolerated the procedure well with no complications. All needle and sponge counts were correct at the end of the operation. I attest to the content of the Intraoperative Record and any orders documented therein. Any exception s are noted below.
[2018-09-30 09:00] LABS: Basophils # (auto) 0.02 K/uL (0-0.2); Basophils % (auto) 0.1 %; Eosinophils # (auto) 0.03 K/uL (0-0.5); Eosinophils % (auto) 0.2 %; Hematocrit (blood only) 28.2 % (42-52); Hemoglobin 9.1 g/dL (14.0-18.0); Immature Granulocytes # (auto) 0.03 K/uL (0.00-0.02); Immature Granulocytes % (auto) 0.2 %; Lymphocytes # (auto) 1.71 K/uL (1.2-3.4); Lymphocytes % (auto) 11.4 %; Mean Corpuscular Volume 92.2 fL (80-100); Mean Platelet Volume 9.3 fL (7.4-10.4); Monocytes # (auto) 0.58 K/uL (0.11-0.59); Monocytes % (auto) 3.9 %; Neutrophils # (auto) 12.58 K/uL (1.4-6.5); Neutrophils % (auto) 84.2 %; Platelet Count 305 K/uL (130-400); RDW Standard Deviation 52.2 fL (36.4-46.3); Red Blood Count 3.06 M/uL (4.7-6.1); White Blood Count 14.95 K/uL (4.8-10.8)
[2018-09-30 09:07] LABS: Mean Corpuscular Hgb Conc 32.3 g/dL (32-36)
[2018-09-30] MEDS: MULTIVITAMIN TAB PO SCH (09:17)
[2018-09-30] MEDS: METOPROLOL TARTRATE 50 MG TAB PO SCH ×2 (09:18→21:05)
[2018-09-30] MEDS: FERROUS SULFATE 325 MG TAB PO SCH ×2 (09:18→19:01)
[2018-09-30] MEDS: NEPHROCAPS PO SCH (09:18)
[2018-09-30] MEDS: LISINOPRIL 40 MG TAB PO SCH (09:18)
[2018-09-30] MEDS: AMLODIPINE BESYLATE 5 MG TAB PO SCH (09:19)
[2018-09-30] MEDS: CALCIUM ACETATE 667 MG CAP PO SCH ×3 (09:19→19:00)
[2018-09-30] MEDS: INSULIN GLARGINE SOLOSTAR 100 UNITS/ML 3 ML PEN SQ SCH (09:19)
[2018-09-30] MEDS: INSULIN ASPART 100 UNITS/ML 3 ML PEN SC SCH ×4 (09:20→22:02)
[2018-09-30] MEDS: DOCUSATE SODIUM 100 MG CAP PO SCH ×2 (09:22→21:06)
[2018-09-30 09:28] LABS: BUN Creatinine Ratio 9.8 (10-20); Calcium 8.7 mg/dl (8.5-10.1); Creatinine Clr Calc Pharmacy 24.5 ml/min; Est GFR (African American) 12.4; Est GFR (Non-African American) 10.7; Potassium 4.7 mmol/L (3.5-5.1)
--- NOTE | 2018-09-30 11:06 | Nephrology Progress Note ---
Date of Service September 30, 2018 Assessment & Plan (1) ESRD on dialysis: ESRD on HD via left AVF (TTS schedule). Admitted with acute blood loss anemia related to bleeding ulcer on foot. Received 2 units of PRBC. Hemoglobin has been relatively stable. Has chronic ischemic ulcer with gangrene of left foot and osteomyelitis. Left below-knee amputation was completed 09/29/18 -- Volume status & electrolyte balance are acceptable at this time -- Maintain TTS scheduled for dialysis. -- Repeat metabolic profile and CBC tomorrow AM. -- Renal diet. -- PO4 acceptable. Continue Phoslo as Rx. (2) Anemia: -- Will provide ERI w/ HD -- Iron saturation 21% w/ ferritin ~ 600 (3) Osteomyelitis: -- On Imipenem as per ID. -- BKA completed 09/29/18 (4) Hypertension: -- BP and volume status are acceptable. (5) Secondary hyperparathyroidism of renal origin: -- Phoslo QAC. (6) Proteinuria: Subjective Mr. Quinonez was seen & examined in his hospital room this morning. He was dialyzed yesterday morning for 4 hours w/ 2.3 L UF. There were no complications. Mr. Quinonez underwent L BKA yesterday. He currently denies pain, angina, dyspnea or uremic symptoms. Physical Exam Vital Signs (Past 24 Hours): Last Vital Signs Temp 37.3 C 09/30/18 07:50 Pulse 76 09/30/18 07:50 Resp 16 09/30/18 07:50 BP 166/77 H 09/30/18 07:50 Pulse Ox 94 09/30/18 07:50 Eyes: PERRL, conjunctivae normal, anicteric sclerae Neck: trachea midline, no thyromegaly Respiratory: normal respiratory effort, lungs clear to auscultation Cardiovascular: RRR, no murmur, no edema Extremities: + AV fistula (+ bruit) Gastrointestinal (Abdomen): normal bowel sounds, soft, nontender, no hepatosplenomegaly Results & Data Laboratory Results Laboratory Tests 09/30/18 08:46 WBC 14.95 H Hgb 9.1 L Hct 28.2 L Plt Count 305 Laboratory Tests 09/30/18 08:46 Sodium 134 L Potassium 4.7 Chloride 102 Carbon Dioxide 23 BUN 53 H Creatinine 5.47 H* D Glucose 138 H
--- NOTE | 2018-09-30 11:27 | Anesthesiology Progress Note ---
Date of Service September 30, 2018 Anesthesia Post Procedure Vital Signs Vital Signs: Temp Pulse Pulse Pulse Pulse Resp BP 09/30/18 07:50 37.3 C 76 16 09/30/18 03:24 37.1 C 73 16 09/29/18 23:34 36.7 C 73 16 09/29/18 21:33 37.4 C 76 18 09/29/18 20:42 78 09/29/18 20:13 37.2 C 78 17 09/29/18 19:30 36.6 C 78 17 09/29/18 18:55 37.1 C 84 18 09/29/18 18:10 70 11 L 153/47 H 09/29/18 18:05 77 13 142/63 H 09/29/18 18:00 79 18 154/69 H 09/29/18 17:58 36.8 C 79 79 16 09/29/18 17:55 78 17 145/63 H 09/29/18 17:50 71 14 161/64 H 09/29/18 17:45 80 19 145/71 H 09/29/18 17:40 76 14 135/68 09/29/18 17:35 90 17 149/54 H 09/29/18 17:32 19 147/69 H 09/29/18 17:30 91 H 14 180/70 H 09/29/18 17:26 19 155/65 H 09/29/18 17:25 17 09/29/18 17:20 36.5 C 97 H 100 H 100 H 21 133/85 09/29/18 17:19 15 09/29/18 14:19 36.7 C 76 20 09/29/18 13:26 76 09/29/18 13:15 37.2 C 09/29/18 12:45 63 119/47 L 09/29/18 12:20 81 151/70 H 09/29/18 12:00 76 130/71 09/29/18 11:40 79 136/73 BP Pulse Ox 09/30/18 07:50 166/77 H 94 09/30/18 03:24 159/69 H 99 09/29/18 23:34 149/74 H 99 09/29/18 21:33 153/77 H 97 09/29/18 20:42 168/72 H 09/29/18 20:13 160/82 H 97 09/29/18 19:30 162/82 H 97 09/29/18 18:55 144/67 H 94 09/29/18 18:10 99 09/29/18 18:05 98 09/29/18 18:00 99 09/29/18 17:58 154/69 H 99 09/29/18 17:55 99 09/29/18 17:50 93 09/29/18 17:45 100 09/29/18 17:40 97 09/29/18 17:35 98 09/29/18 17:32 98 09/29/18 17:30 99 09/29/18 17:26 99 09/29/18 17:25 96 09/29/18 17:20 133/85 100 09/29/18 17:19 100 09/29/18 14:19 152/75 H 100 09/29/18 13:26 154/88 H 09/29/18 13:15 147/78 H 09/29/18 12:45 09/29/18 12:20 09/29/18 12:00 09/29/18 11:40 Pain Intensity Left Foot: Pain Intensity: 0 Right Leg: Pain Intensity: 0 Notes Mental Status: alert / awake / arousable and participated in evaluation Patient Amnestic to Procedure: Yes Nausea / Vomiting: adequately controlled Pain: adequately controlled Airway Patency, RR, SpO2: stable & adequate BP & HR: stable & adequate Hydration State: stable & adequate Anesthetic Complications: no major complications apparent
--- NOTE | 2018-09-30 14:46 | Progress Note ---
DATE: 09/30/2018 SUBJECTIVE: A 58-year-old severe diabetic postop day 1 from a left below-knee amputation. He is doing pretty well. Denies any pain. No real complaints. No chest pain or shortness of breath. Not feeling dizzy or lightheaded. OBJECTIVE: VITAL SIGNS: Temperature 37.2. Vital signs stable. GENERAL: Physical examination reveals a pleasant, middle-aged gentleman, sitting in his bedside chair. He looks comfortable. EXTREMITIES: Examination of the left leg reveals a wrap to be in place. There is no drainage. LABORATORY DATA: Hemoglobin is 9.1. Hematocrit 28.2. ASSESSMENT: A 58-year-old gentleman with end-stage renal disease secondary to diabetes, now postop day 1 from a left below-knee amputation for severe infected and gangrenous left foot. Seems to be doing well. His pain is controlled. His hemoglobin is stable. PLAN: 1. DVT prophylaxis including thigh-high TEDs and SCDs. Not a candidate for other anticoagulation due to his anemia and blood loss issues. 2. PT/OT. He just needs instructions and training on mobilization. He will be a candidate possibly for a prosthesis in 3 months. 3. IV antibiotics. From the orthopedic standpoint, he just needs 24 hours of postop antibiotics after surgery and then can be discontinued. 4. Disposition: He is orthopedically acceptable for discharge any time. He complete his 24 hours of antibiotics. We are going to leave this bandage in place and I will see him back in 2-3 weeks.
--- NOTE | 2018-09-30 18:34 | Hospitalist Progress Note ---
Date of Service September 30, 2018 Assessment & Plan (1) Infection of left foot: (2) Stress and adjustment reaction: (3) Wound of foot: (4) Acute blood loss anemia: (5) Diabetes: (6) End-stage renal disease on hemodialysis: (7) Hypertension: (8) Anemia due to chronic kidney disease: (9) ESRD on dialysis: 58-year-old white male admitted on September 13, 2018 because of left lower extremity chronic wound, Left foot amputation on September 29, 2018 Left foot infected wound, postop day 1 from a left below-knee amputation for severe infected and gangrenous left foot. cont DVT prophylaxis including thigh-high TEDs and SCDs. per ortho, not a candidate for other anticoagulation due to his anemia and blood loss issues. for IV antibiotics just needs 24 hours of postop antibiotics after surgery and then can be discontinued per orthopedic Continue PT OT, need to be seen by Dr. 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, no complaint, no pain, Review of Systems Constitutional: negative weakness, or fatigue Respiratory: no cough, sputum, wheezing, or dyspnea on exertion Cardiac: No chest pain, No orthopnea, No PND, Abdomen: No pain, No nausea, No vomiting, No diarrhea, Musculoskeletal: Left foot in dressing, no joint pain, No muscle pain, : No dysuria, No urinary frequency, No incontinence, No hematuria Neurologic: No paralysis, No weakness, No numbness/tingling, Psychiatric: No depression symptoms, No anhedonism, No anxiety, Heme: No abnormal bleeding/bruising, No clotting problems, Skin: No rash, No itch, No new/changing skin lesions, No color change, No bleeding Physical Exam Vital Signs (Past 24 Hours): Last Vital Signs Temp 36.4 C L 09/30/18 15:25 Pulse 72 09/30/18 15:25 Resp 18 09/30/18 15:25 BP 154/77 H 09/30/18 15:25 Pulse Ox 98 09/30/18 15:25 Physical Exam: General Appearance: obesity, pleasant, no obvious anxious, WD/WN, no apparent distress, Eyes: normal inspection, PERRL, EOMI, sclerae normal ENT: normal ENT inspection, hearing grossly normal, pharynx normal Neck: supple, no adenopathy, thyroid normal, no JVD, no carotid bruits, trachea midline Respiratory/Chest: chest non-tender, significantly decreased breath sounds, no respiratory distress, no accessory muscle use, breath sounds, rales, wheezing Cardiovascular: regular rate, rhythm, no JVD, no murmur Abdomen: normal bowel sounds, non tender, soft, no organomegaly, Extremities: Left lower extremity S/P amputation in dressing, Neurologic/Psychiatric: hand sign writer II-XII nml as tested, no motor/sensory deficits, alert, normal mood/affect, oriented x 3 Results & Data Laboratory Results Laboratory Results - last 24 hr 09/29/18 09/29/18 09/29/18 08:36 18:42 20:10 WBC RBC Hgb Hct MCV MCH MCHC RDW Std Deviation RDW Coeff of Dorcas Plt Count MPV Immature Gran % (Auto) Neut % (Auto) Lymph % (Auto) [place] % (Auto) Eos % (Auto) Baso % (Auto) Immature Gran # (Auto) Neut # (Auto) Lymph # (Auto) [place] # (Auto) Eos # (Auto) Baso # (Auto) Sodium Potassium Chloride Carbon Dioxide Anion Gap BUN Creatinine Est Cr Clr Drug Dosing Est GFR ( Amer) Est GFR (Non-Af Amer) BUN/Creatinine Ratio Glucose POC Glucose 185 H 189 H Calcium Magnesium 25-OH Vitamin D Total 9.3 L 09/30/18 09/30/18 09/30/18 07:58 08:46 08:46 WBC 14.95 H RBC 3.06 L Hgb 9.1 L Hct 28.2 L MCV 92.2 MCH 29.7 MCHC 32.3 RDW Std Deviation 52.2 H RDW Coeff of Dorcas 16.0 H Plt Count 305 MPV 9.3 Immature Gran % (Auto) 0.2 Neut % (Auto) 84.2 Lymph % (Auto) 11.4 [place] % (Auto) 3.9 Eos % (Auto) 0.2 Baso % (Auto) 0.1 Immature Gran # (Auto) 0.03 H Neut # (Auto) 12.58 H Lymph # (Auto) 1.71 [place] # (Auto) 0.58 Eos # (Auto) 0.03 Baso # (Auto) 0.02 Sodium 134 L Potassium 4.7 Chloride 102 Carbon Dioxide 23 Anion Gap 10.0 BUN 53 H Creatinine 5.47 H* D Est Cr Clr Drug Dosing 24.5 Est GFR ( Amer) 12.4 Est GFR (Non-Af Amer) 10.7 BUN/Creatinine Ratio 9.8 L Glucose 138 H POC Glucose 142 H Calcium 8.7 Magnesium 25-OH Vitamin D Total 09/30/18 09/30/18 09/30/18 08:46 12:23 17:09 WBC RBC Hgb Hct MCV MCH MCHC RDW Std Deviation RDW Coeff of Dorcas Plt Count MPV Immature Gran % (Auto) Neut % (Auto) Lymph % (Auto) [place] % (Auto) Eos % (Auto) Baso % (Auto) Immature Gran # (Auto) Neut # (Auto) Lymph # (Auto) [place] # (Auto) Eos # (Auto) Baso # (Auto) Sodium Potassium Chloride Carbon Dioxide Anion Gap BUN Creatinine Est Cr Clr Drug Dosing Est GFR ( Amer) Est GFR (Non-Af Amer) BUN/Creatinine Ratio Glucose POC Glucose 152 H 120 H Calcium Magnesium 2.5 H 25-OH Vitamin D Total (1) Anemia due to chronic kidney disease Chronic kidney disease stage: stage 5, not on chronic dialysis Qualified Code(s): N18.5 - Chronic kidney disease, stage 5; D63.1 - Anemia in chronic kidney disease
[2018-09-30] MEDS: ACETAMINOPHEN 325 MG TAB PO PRN (21:02)
[2018-10-01] MEDS: ACETAMINOPHEN 325 MG TAB PO PRN (02:42)
[2018-10-01] MEDS ORDERED: SODIUM CHLORIDE 0.9% 1000ML 1,000 ML IV PRN (07:00)
[2018-10-01] MEDS ORDERED: EPOETIN ALFA 10,000 UNITS/ML VIAL IV ONE (07:00)
[2018-10-01] MEDS: FERROUS SULFATE 325 MG TAB PO SCH ×2 (08:12→18:47)
[2018-10-01] MEDS: CALCIUM ACETATE 667 MG CAP PO SCH ×3 (08:13→18:46)
[2018-10-01] MEDS: MULTIVITAMIN TAB PO SCH (08:14)
[2018-10-01] MEDS: NEPHROCAPS PO SCH (08:14)
[2018-10-01] MEDS: DOCUSATE SODIUM 100 MG CAP PO SCH ×2 (08:14→21:02)
[2018-10-01] MEDS: INSULIN GLARGINE SOLOSTAR 100 UNITS/ML 3 ML PEN SQ SCH (08:16)
[2018-10-01] MEDS: INSULIN ASPART 100 UNITS/ML 3 ML PEN SC SCH ×4 (08:17→20:51)
[2018-10-01 08:35] LABS: BUN Creatinine Ratio 10.9 (10-20); Calcium 8.8 mg/dl (8.5-10.1); Creatinine Clr Calc Pharmacy 18.8 ml/min; Est GFR (Non-African American) 7.8; Magnesium 2.6 mg/dl (1.8-2.4)
[2018-10-01 09:06] LABS: Basophils # (auto) 0.05 K/uL (0-0.2); Basophils % (auto) 0.4 %; Eosinophils # (auto) 0.31 K/uL (0-0.5); Eosinophils % (auto) 2.6 %; Hematocrit (blood only) 26.1 % (42-52); Hemoglobin 8.2 g/dL (14.0-18.0); Immature Granulocytes # (auto) 0.05 K/uL (0.00-0.02); Immature Granulocytes % (auto) 0.4 %; Lymphocytes # (auto) 3.06 K/uL (1.2-3.4); Lymphocytes % (auto) 25.6 %; Mean Corpuscular Hgb Conc 31.4 g/dL (32-36); Mean Corpuscular Volume 93.5 fL (80-100); Mean Platelet Volume 9.8 fL (7.4-10.4); Monocytes # (auto) 0.56 K/uL (0.11-0.59); Monocytes % (auto) 4.7 %; Neutrophils % (auto) 66.3 %; Platelet Count 304 K/uL (130-400); RDW Standard Deviation 54.1 fL (36.4-46.3); Red Blood Count 2.79 M/uL (4.7-6.1); White Blood Count 11.93 K/uL (4.8-10.8)
[2018-10-01 09:53] LABS: RBC Morphology Unremarkable
--- NOTE | 2018-10-01 10:44 | Nephrology Progress Note ---
Date of Service October 01, 2018 Assessment & Plan (1) ESRD on dialysis: ESRD on HD via left AVF (TTS schedule). Admitted with acute blood loss anemia related to bleeding ulcer on foot. Received 2 units of PRBC. Hemoglobin has been relatively stable. Has chronic ischemic ulcer with gangrene of left foot and osteomyelitis. Left below-knee amputation was completed 09/29/18 -- HD today. Heparin free. Orders entered into EMR and HD RN notified -- Maintain TTS scheduled for dialysis. -- Repeat metabolic profile and CBC tomorrow AM. -- Renal diet. -- PO4 acceptable. Continue Phoslo as Rx. (2) Anemia: -- Will provide ERI w/ HD -- Iron saturation 21% w/ ferritin ~ 600 (3) Osteomyelitis: -- BKA completed 09/29/18 (4) Hypertension: -- BP and volume status are acceptable. (5) Secondary hyperparathyroidism of renal origin: -- Phoslo QAC. (6) Proteinuria: Subjective Mr. Quinonez was seen & examined in his hospital room this morning. He is preparing for HD. Mr. Quinonez reports that his BKA site pain is controlled. He is anxious to begin PT Physical Exam Vital Signs (Past 24 Hours): Last Vital Signs Temp 36.9 C 10/01/18 08:52 Pulse 68 10/01/18 10:25 Resp 16 10/01/18 07:30 BP 136/71 10/01/18 10:25 Pulse Ox 99 10/01/18 07:30 Eyes: PERRL, conjunctivae normal, anicteric sclerae Neck: trachea midline, no thyromegaly Respiratory: normal respiratory effort, lungs clear to auscultation Cardiovascular: RRR, no murmur, no edema Extremities: + AV fistula (+ bruit) Gastrointestinal (Abdomen): normal bowel sounds, soft, nontender, no hepatosplenomegaly Results & Data Laboratory Results Laboratory Tests 10/01/18 07:46 Sodium 137 Potassium 5.0 Chloride 104 Carbon Dioxide 22 BUN 78 H Creatinine 7.12 H* D Glucose 108 H
[2018-10-01] MEDS: METOPROLOL TARTRATE 50 MG TAB PO SCH ×2 (11:15→21:02)
[2018-10-01] MEDS: AMLODIPINE BESYLATE 5 MG TAB PO SCH ×2 (11:16→14:28)
[2018-10-01] MEDS: LISINOPRIL 40 MG TAB PO SCH ×2 (11:17→14:28)
[2018-10-01] MEDS: HYDROCODONE/ACETAMOPHEN 5/325MG TAB PO PRN ×2 (14:32→23:44)
--- NOTE | 2018-10-01 17:06 | Hospitalist Progress Note ---
Date of Service October 01, 2018 Assessment & Plan (1) Infection of left foot: (2) Stress and adjustment reaction: (3) Wound of foot: (4) Acute blood loss anemia: (5) Diabetes: (6) End-stage renal disease on hemodialysis: (7) Hypertension: (8) Anemia due to chronic kidney disease: (9) ESRD on dialysis: 58-year-old white male admitted on September 13, 2018 because of left lower extremity chronic wound, Left foot was done amputation on September 29, 2018 Left foot infected wound, postop day 2 from a left below-knee amputation for severe infected and gangrenous left foot. cont DVT prophylaxis including thigh-high TEDs and SCDs. per ortho, not a candidate for other anticoagulation due to his anemia and blood loss issues. for IV antibiotics just needs 24 hours of postop antibiotics after surgery and then can be discontinued per orthopedic Continue PT OT, need to be seen by Dr. 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 probably soon DVT prophylaxis is covered Subjective Developed sweating, dizziness during the dialysis, blood pressure drop at 60s, Was 2 episodes during the dialysis today Review of Systems Constitutional: Positive weakness, or fatigue Respiratory: no cough, sputum, wheezing, or dyspnea on exertion Cardiac: No chest pain, No orthopnea, No PND, Abdomen: No pain, No nausea, No vomiting, No diarrhea, Musculoskeletal: Left foot in dressing, no joint pain, No muscle pain, Neurologic: No paralysis, No weakness, No numbness/tingling, Psychiatric: No depression symptoms, No anhedonism, No anxiety, Heme: No abnormal bleeding/bruising, No clotting problems, Skin: No rash, No itch, No new/changing skin lesions, Physical Exam Vital Signs (Past 24 Hours): Last Vital Signs Temp 36.7 C 10/01/18 15:56 Pulse 81 10/01/18 15:56 Resp 14 10/01/18 15:56 BP 162/72 H 10/01/18 15:56 Pulse Ox 97 10/01/18 15:56 Physical Exam: General Appearance: obesity, no obvious anxious, WD/WN, no apparent distress, Eyes: normal inspection, PERRL, EOMI, sclerae normal ENT: normal ENT inspection, hearing grossly normal, pharynx normal Neck: supple, no adenopathy, thyroid normal, no JVD, no carotid bruits, trachea midline Respiratory/Chest: chest non-tender, significantly decreased breath sounds, no respiratory distress, no accessory muscle use, breath sounds, rales, wheezing Cardiovascular: regular rate, rhythm, no JVD, no murmur Abdomen: normal bowel sounds, non tender, soft, no organomegaly, Extremities: Left lower extremity BKA in dressing, Neurologic/Psychiatric: rn long term care II-XII nml as tested, no motor/sensory deficits Results & Data Laboratory Results Laboratory Results - last 24 hr 09/30/18 09/30/18 10/01/18 17:09 20:36 07:46 WBC 11.93 H RBC 2.79 L Hgb 8.2 L Hct 26.1 L MCV 93.5 MCH 29.4 MCHC 31.4 L RDW Std Deviation 54.1 H RDW Coeff of Dorcas 16.0 H Plt Count 304 MPV 9.8 Immature Gran % (Auto) 0.4 Neut % (Auto) 66.3 Lymph % (Auto) 25.6 [place] % (Auto) 4.7 Eos % (Auto) 2.6 Baso % (Auto) 0.4 Immature Gran # (Auto) 0.05 H Neut # (Auto) 7.90 H Lymph # (Auto) 3.06 [place] # (Auto) 0.56 Eos # (Auto) 0.31 Baso # (Auto) 0.05 RBC Morphology Unremarkable Sodium Potassium Chloride Carbon Dioxide Anion Gap BUN Creatinine Est Cr Clr Drug Dosing Est GFR ( Amer) Est GFR (Non-Af Amer) BUN/Creatinine Ratio Glucose POC Glucose 120 H 129 H Calcium Phosphorus Magnesium 10/01/18 10/01/18 10/01/18 07:46 08:04 10:22 WBC RBC Hgb Hct MCV MCH MCHC RDW Std Deviation RDW Coeff of Dorcas Plt Count MPV Immature Gran % (Auto) Neut % (Auto) Lymph % (Auto) [place] % (Auto) Eos % (Auto) Baso % (Auto) Immature Gran # (Auto) Neut # (Auto) Lymph # (Auto) [place] # (Auto) Eos # (Auto) Baso # (Auto) RBC Morphology Sodium 137 Potassium 5.0 Chloride 104 Carbon Dioxide 22 Anion Gap 11.0 BUN 78 H Creatinine 7.12 H* D Est Cr Clr Drug Dosing 18.8 Est GFR ( Amer) 9.0 Est GFR (Non-Af Amer) 7.8 BUN/Creatinine Ratio 10.9 Glucose 108 H POC Glucose 109 H 122 H Calcium 8.8 Phosphorus Magnesium 2.6 H 10/01/18 10/01/18 11:44 11:49 WBC RBC Hgb Hct MCV MCH MCHC RDW Std Deviation RDW Coeff of Dorcas Plt Count MPV Immature Gran % (Auto) Neut % (Auto) Lymph % (Auto) [place] % (Auto) Eos % (Auto) Baso % (Auto) Immature Gran # (Auto) Neut # (Auto) Lymph # (Auto) [place] # (Auto) Eos # (Auto) Baso # (Auto) RBC Morphology Sodium Potassium Chloride Carbon Dioxide Anion Gap BUN Creatinine Est Cr Clr Drug Dosing Est GFR ( Amer) Est GFR (Non-Af Amer) BUN/Creatinine Ratio Glucose POC Glucose 126 H Calcium Phosphorus 3.7 Magnesium (1) Anemia due to chronic kidney disease Chronic kidney disease stage: stage 5, not on chronic dialysis Qualified Code(s): N18.5 - Chronic kidney disease, stage 5; D63.1 - Anemia in chronic kidney disease
[2018-10-01] MEDS ORDERED: TEMAZEPAM 7.5 MG CAPSULE PO PRN (22:00)
[2018-10-02] MEDS: HYDROCODONE/ACETAMOPHEN 5/325MG TAB PO PRN ×3 (06:03→21:06)
[2018-10-02 07:32] LABS: Basophils # (auto) 0.03 K/uL (0-0.2); Basophils % (auto) 0.2 %; Eosinophils # (auto) 0.27 K/uL (0-0.5); Eosinophils % (auto) 2.2 %; Hematocrit (blood only) 24.7 % (42-52); Hemoglobin 8.1 g/dL (14.0-18.0); Immature Granulocytes # (auto) 0.05 K/uL (0.00-0.02); Immature Granulocytes % (auto) 0.4 %; Lymphocytes # (auto) 2.83 K/uL (1.2-3.4); Lymphocytes % (auto) 23.5 %; Mean Corpuscular Volume 92.5 fL (80-100); Mean Platelet Volume 9.6 fL (7.4-10.4); Monocytes # (auto) 0.57 K/uL (0.11-0.59); Monocytes % (auto) 4.7 %; Neutrophils # (auto) 8.29 K/uL (1.4-6.5); Platelet Count 302 K/uL (130-400); RDW Coefficient of Variation 16.1 % (11.5-14.5); RDW Standard Deviation 53.6 fL (36.4-46.3); Red Blood Count 2.67 M/uL (4.7-6.1); White Blood Count 12.04 K/uL (4.8-10.8)
[2018-10-02 07:34] LABS: Mean Corpuscular Hgb Conc 32.8 g/dL (32-36)
[2018-10-02 08:07] LABS: BUN Creatinine Ratio 10.9 (10-20); Calcium 8.1 mg/dl (8.5-10.1); Est GFR (African American) 10.3; Est GFR (Non-African American) 8.9; Magnesium 2.3 mg/dl (1.8-2.4); Potassium 4.5 mmol/L (3.5-5.1)
[2018-10-02 08:34] LABS: Schistocytes Occasional; Tear Drop Cells Occasional
[2018-10-02] MEDS: CALCIUM ACETATE 667 MG CAP PO SCH ×3 (09:33→18:56)
[2018-10-02] MEDS: FERROUS SULFATE 325 MG TAB PO SCH ×2 (09:34→19:02)
[2018-10-02] MEDS: DOCUSATE SODIUM 100 MG CAP PO SCH ×2 (09:35→21:01)
[2018-10-02] MEDS: INSULIN ASPART 100 UNITS/ML 3 ML PEN SC SCH ×4 (09:37→20:41)
[2018-10-02] MEDS: INSULIN GLARGINE SOLOSTAR 100 UNITS/ML 3 ML PEN SQ SCH (09:38)
[2018-10-02] MEDS: METOPROLOL TARTRATE 50 MG TAB PO SCH ×2 (09:39→21:01)
[2018-10-02] MEDS: MULTIVITAMIN TAB PO SCH (09:40)
[2018-10-02] MEDS: LISINOPRIL 40 MG TAB PO SCH (09:41)
[2018-10-02] MEDS: NEPHROCAPS PO SCH (09:41)
[2018-10-02] MEDS: AMLODIPINE BESYLATE 5 MG TAB PO SCH (09:43)
--- NOTE | 2018-10-02 10:14 | Nephrology Progress Note ---
Date of Service October 02, 2018 Assessment & Plan (1) ESRD on dialysis: ESRD on HD via left AVF (TTS schedule). Admitted with acute blood loss anemia related to bleeding ulcer on foot. Received 2 units of PRBC. Hemoglobin has been relatively stable. Has chronic ischemic ulcer with gangrene of left foot and osteomyelitis. Left below-knee amputation was completed 09/29/18 -- HD tomorrow am. Will set EDW at 165 kg -- Maintain TTS scheduled for dialysis. -- Renal diet. -- PO4 acceptable. Continue Phoslo as Rx. (2) Anemia: -- Will provide ERI w/ HD -- Iron saturation 21% w/ ferritin ~ 600 (3) Osteomyelitis: -- BKA completed 09/29/18 (4) Hypertension: -- BP and volume status are acceptable. (5) Secondary hyperparathyroidism of renal origin: -- Phoslo QAC. (6) Proteinuria: Subjective Mr. Quinonez was seen & examined in his hospital room this morning. He reports that his BKA site pain is controlled. He is anxious to begin PT. Mr. Quinonez was dialyzed yesterday. HD treatment was terminated after 2.5 hours due to hypotension and cramping. Physical Exam Vital Signs (Past 24 Hours): Last Vital Signs Temp 37.2 C 10/02/18 07:41 Pulse 79 10/02/18 09:31 Resp 14 10/02/18 07:41 BP 153/72 H 10/02/18 09:31 Pulse Ox 95 10/02/18 07:41 Eyes: PERRL, conjunctivae normal, anicteric sclerae Neck: trachea midline, no thyromegaly Respiratory: normal respiratory effort, lungs clear to auscultation Cardiovascular: RRR, no murmur, no edema Extremities: + AV fistula (+ bruit) Gastrointestinal (Abdomen): normal bowel sounds, soft, nontender, no hepatosplenomegaly Results & Data Laboratory Results Laboratory Tests 10/02/18 10/02/18 06:58 07:15 WBC 12.04 H Hgb 8.1 L Hct 24.7 L Plt Count 302 Sodium 133 L Potassium 4.5 Chloride 101 Carbon Dioxide 22 BUN 70 H Creatinine 6.40 H* D Glucose 104 H
[2018-10-02] MEDS ORDERED: TEMAZEPAM 15 MG CAPSULE PO PRN (10:46)
--- NOTE | 2018-10-02 15:25 | Progress Note ---
DATE: 10/02/2018 SUBJECTIVE: A 58-year-old diabetic postop day 3 from a left below-knee amputation for infection. He is doing pretty well. He says the first time he has gotten much sleep in a while. No chest pain or shortness of breath. Denies any leg pain. OBJECTIVE: VITAL SIGNS: Temperature 37.1. Vital signs stable. GENERAL: Physical examination reveals a pleasant, middle-aged male. He is lying in bed and looks pretty comfortable. EXTREMITIES: Examination of the left leg reveals the dressing to be clean, dry and intact. There is no drainage. LABORATORY DATA: Hemoglobin 8.1. Hematocrit 24.7. ASSESSMENT: A 58-year-old gentleman postop day 3 from a left below-knee amputation, doing reasonably well. His pain is controlled. PLAN: We are going to leave this bandage in place for 2 weeks. I will see him back 2 weeks postop and will assess for suture removal. Likely his stitches are going to need to be in for 3 weeks or so. He just needs to see me back somewhere between 2-3 weeks. Otherwise, it is strictly medical management versus the medicine service. Any orthopedic questions can be directed to me at [phone].
--- NOTE | 2018-10-02 17:10 | Hospitalist Progress Note ---
Date of Service October 02, 2018 Assessment & Plan (1) Infection of left foot: (2) Stress and adjustment reaction: (3) Wound of foot: (4) Acute blood loss anemia: (5) Diabetes: (6) End-stage renal disease on hemodialysis: (7) Hypertension: (8) Anemia due to chronic kidney disease: (9) ESRD on dialysis: 58-year-old white male admitted on September 13, 2018 because of left lower extremity chronic wound, Left foot was done amputation on September 29, 2018 Left foot infected wound, postop day 3 from a left below-knee amputation for severe infected and gangrenous left foot. per ortho : is going to leave this bandage in place for 2 weeks. need to see Dr. Keenan in 2 weeks postop , and will assess for suture removal. Per Dr. keenan, Likely his stitches are going to need to be in for 3 weeks . cont DVT prophylaxis including thigh-high TEDs and SCDs. per ortho, not a candidate for other anticoagulation due to his anemia and blood loss issues. Hypotensive during the dialysis 2 episodes, never has this problem before Has advised nursing staff with close blood pressure monitoring, hx of s/p amputation of 5th toe and 5th metatarsal and extensive debridement of foot for underlying infection Accelerated hypertension: Stable continue follow-up Possible acute blood loss anemia upon admission: HB 8.2 from 9.1 today we will continue follow-up Diabetic, secondary hypothyroidism, continue current medication, PTOT director of social services for planning for rehab probably soon DVT prophylaxis is covered Subjective Doing well today, however it was tired, not sleeping well at nighttime, Review of Systems Constitutional: Positive weakness, or fatigue Respiratory: no cough, sputum, wheezing, or dyspnea on exertion Cardiac: No chest pain, No orthopnea, No PND, Abdomen: No pain, No nausea, No vomiting, No diarrhea, Musculoskeletal: Left foot in dressing, no joint pain, No muscle pain, Neurologic: No paralysis, No weakness, No numbness/tingling, Psychiatric: No depression symptoms, No anhedonism, No anxiety, Heme: No abnormal bleeding/bruising, No clotting problems, Integumentary: + wounds (left foot, foul odor, tissue, no pain) Neurologic: + numbness (feet bilaterally) Physical Exam Vital Signs (Past 24 Hours): Last Vital Signs Temp 37.1 C 10/02/18 14:55 Pulse 71 10/02/18 14:55 Resp 18 10/02/18 14:55 BP 150/79 H 10/02/18 14:55 Pulse Ox 93 10/02/18 14:55 Physical Exam: General Appearance: obesity, no obvious anxious, WD/WN, no apparent distress, Eyes: normal inspection, PERRL, EOMI, sclerae normal ENT: normal ENT inspection, hearing grossly normal, pharynx normal Neck: supple, no adenopathy, thyroid normal, no JVD, no carotid bruits, trachea midline Respiratory/Chest: chest non-tender, significantly decreased breath sounds, no respiratory distress, no accessory muscle use, breath sounds, rales, wheezing Cardiovascular: regular rate, rhythm, no JVD, no murmur Abdomen: normal bowel sounds, non tender, soft, no organomegaly, Extremities: Left lower extremity BKA in dressing, Results & Data Laboratory Results Laboratory Results - last 24 hr 10/01/18 10/01/18 10/02/18 17:04 20:44 06:58 WBC RBC Hgb Hct MCV MCH MCHC RDW Std Deviation RDW Coeff of Dorcas Plt Count MPV Immature Gran % (Auto) Neut % (Auto) Lymph % (Auto) [place] % (Auto) Eos % (Auto) Baso % (Auto) Immature Gran # (Auto) Neut # (Auto) Lymph # (Auto) [place] # (Auto) Eos # (Auto) Baso # (Auto) Hypersegmented Neuts Tear Drop Cells Schistocytes Sodium 133 L Potassium 4.5 Chloride 101 Carbon Dioxide 22 Anion Gap 10.0 BUN 70 H Creatinine 6.40 H* D Est Cr Clr Drug Dosing 21.0 Est GFR ( Amer) 10.3 Est GFR (Non-Af Amer) 8.9 BUN/Creatinine Ratio 10.9 Glucose 104 H POC Glucose 127 H 112 H Calcium 8.1 L Phosphorus 6.0 H D Magnesium 2.3 10/02/18 10/02/18 10/02/18 07:15 08:43 11:54 WBC 12.04 H RBC 2.67 L Hgb 8.1 L Hct 24.7 L MCV 92.5 MCH 30.3 MCHC 32.8 RDW Std Deviation 53.6 H RDW Coeff of Dorcas 16.1 H Plt Count 302 MPV 9.6 Immature Gran % (Auto) 0.4 Neut % (Auto) 69.0 Lymph % (Auto) 23.5 [place] % (Auto) 4.7 Eos % (Auto) 2.2 Baso % (Auto) 0.2 Immature Gran # (Auto) 0.05 H Neut # (Auto) 8.29 H Lymph # (Auto) 2.83 Gila # (Auto) 0.57 Eos # (Auto) 0.27 Baso # (Auto) 0.03 Hypersegmented Neuts 1+ Tear Drop Cells Occasional Schistocytes Occasional Sodium Potassium Chloride Carbon Dioxide Anion Gap BUN Creatinine Est Cr Clr Drug Dosing Est GFR ( Amer) Est GFR (Non-Af Amer) BUN/Creatinine Ratio Glucose POC Glucose 109 H 108 H Calcium Phosphorus Magnesium (1) Anemia due to chronic kidney disease Chronic kidney disease stage: stage 5, not on chronic dialysis Qualified Code(s): N18.5 - Chronic kidney disease, stage 5; D63.1 - Anemia in chronic ki dney disease
[2018-10-03] MEDS: HYDROCODONE/ACETAMOPHEN 5/325MG TAB PO PRN ×2 (00:52→15:53)
[2018-10-03] MEDS ORDERED: HEPARIN SOD (PORCINE) 1000 UNIT/ML 10 ML VIAL IV SCH (07:00)
[2018-10-03] MEDS ORDERED: EPOETIN ALFA 10,000 UNITS/ML VIAL IV ONE (07:00)
[2018-10-03] MEDS ORDERED: SODIUM CHLORIDE 0.9% 1000ML 1,000 ML IV PRN (07:00)
[2018-10-03 08:11] LABS: Basophils # (auto) 0.03 K/uL (0-0.2); Basophils % (auto) 0.3 %; Eosinophils # (auto) 0.26 K/uL (0-0.5); Eosinophils % (auto) 2.4 %; Hematocrit (blood only) 25.8 % (42-52); Hemoglobin 8.2 g/dL (14.0-18.0); Immature Granulocytes # (auto) 0.03 K/uL (0.00-0.02); Immature Granulocytes % (auto) 0.3 %; Lymphocytes # (auto) 2.68 K/uL (1.2-3.4); Lymphocytes % (auto) 24.7 %; Mean Corpuscular Volume 92.8 fL (80-100); Mean Platelet Volume 9.2 fL (7.4-10.4); Monocytes # (auto) 0.47 K/uL (0.11-0.59); Monocytes % (auto) 4.3 %; Platelet Count 293 K/uL (130-400); RDW Coefficient of Variation 16.2 % (11.5-14.5); RDW Standard Deviation 53.9 fL (36.4-46.3); Red Blood Count 2.78 M/uL (4.7-6.1); White Blood Count 10.87 K/uL (4.8-10.8)
[2018-10-03 08:20] LABS: Mean Corpuscular Hgb Conc 31.8 g/dL (32-36)
[2018-10-03 08:30] LABS: Anisocytosis Present; Polychromasia 1+
[2018-10-03] MEDS: CALCIUM ACETATE 667 MG CAP PO SCH ×2 (08:44→13:59)
[2018-10-03] MEDS: FERROUS SULFATE 325 MG TAB PO SCH (08:44)
[2018-10-03] MEDS: MULTIVITAMIN TAB PO SCH (08:45)
[2018-10-03] MEDS: NEPHROCAPS PO SCH (08:45)
[2018-10-03] MEDS: DOCUSATE SODIUM 100 MG CAP PO SCH (08:45)
[2018-10-03] MEDS: INSULIN GLARGINE SOLOSTAR 100 UNITS/ML 3 ML PEN SQ SCH (08:47)
[2018-10-03] MEDS: INSULIN ASPART 100 UNITS/ML 3 ML PEN SC SCH ×2 (08:49→14:02)
[2018-10-03 08:53] LABS: BUN Creatinine Ratio 11.8 (10-20); Calcium 8.5 mg/dl (8.5-10.1); Creatinine Clr Calc Pharmacy 17.4 ml/min; Est GFR (African American) 8.2; Magnesium 2.5 mg/dl (1.8-2.4); Potassium 4.8 mmol/L (3.5-5.1)
--- NOTE | 2018-10-03 09:42 | Nephrology Progress Note ---
Date of Service October 03, 2018 Assessment & Plan (1) ESRD on dialysis: ESRD on HD via left AVF (TTS schedule). Admitted with acute blood loss anemia related to bleeding ulcer on foot. Received 2 units of PRBC. Hemoglobin has been relatively stable. Has chronic ischemic ulcer with gangrene of left foot and osteomyelitis. Left below-knee amputation was completed 09/29/18 -- HD this am. Will set EDW at 165 kg -- Maintain TTS scheduled for dialysis. -- Renal diet. -- PO4 acceptable. Continue Phoslo as Rx. (2) Anemia: -- Will provide ERI w/ HD -- Iron saturation 21% w/ ferritin ~ 600 (3) Osteomyelitis: -- BKA completed 09/29/18 (4) Hypertension: -- BP and volume status are acceptable. (5) Secondary hyperparathyroidism of renal origin: -- Phoslo QAC. (6) Proteinuria: Subjective Mr. Quinonez was seen & examined in his hospital room this morning. He reports that his BKA site pain is controlled. He is anxious to transfer to [facility] to continue w/ physical therapy. He voiced no new medical concerns. Physical Exam Vital Signs (Past 24 Hours): Last Vital Signs Temp 37.3 C 10/03/18 07:13 Pulse 72 10/03/18 07:13 Resp 16 10/03/18 07:13 BP 166/80 H 10/03/18 07:13 Pulse Ox 96 10/03/18 07:13 Eyes: PERRL, conjunctivae normal, anicteric sclerae Neck: trachea midline, no thyromegaly Respiratory: normal respiratory effort, lungs clear to auscultation Cardiovascular: RRR, no murmur, no edema Extremities: + AV fistula (+ bruit) Gastrointestinal (Abdomen): normal bowel sounds, soft, nontender, no hepatosplenomegaly Results & Data Laboratory Results Laboratory Tests 10/03/18 10/03/18 07:59 07:59 WBC 10.87 H Hgb 8.2 L Hct 25.8 L Plt Count 293 Sodium 138 Potassium 4.8 Chloride 104 Carbon Dioxide 23 BUN 92 H Creatinine 7.75 H* D Glucose 99
[2018-10-03] MEDS: HEPARIN SOD (PORCINE) 1000 UNIT/ML 10 ML VIAL IV SCH ×2 (10:30→11:30)
--- NOTE | 2018-10-03 12:29 | Discharge Summary ---
Date of Service October 03, 2018 Admission HPI Per Admitting Provider Michael Quinonez Jr. is a 58-year-old male with PMH of poorly-controlled diabetes with nephropathy, neuropathy, and peripheral vascular disease. ESRD on dialysis for the past 4 years. Pt has a history of operations to address ulcers and infections of his metatarsals, most recent was 2 weeks ago, when 5th left metatarsal was amputated. It is the current recommendation that the patient's left foot be amputated due to chronic infections. While discussion options in order to gain consent for surgery, it was reported that patient's frustration had increased. Nursing reported reference to suicidal ideation during a conversation about patient's options, and patient was placed on 1:1 observation and psychiatric consultation was requested. Pt is seen today of psychiatric consult service. He is A&Ox3, sitting upright on edge of bed, eating lunch. When informed of this provider's need to address statements made last evening, patient states "have a seat, I'm an open book." Pt was asked to relay events occurring last evening, stating "it was a joke, a bad joke." Pt states he had been feeling pressured into making a decision about surgery, and had expressed concerns regarding the recovery process (angel abilitation, work-status, mobility). He states, "I was frustrated, frustrated and impatient. They kept going over options, 'one option is this, one option is that.' So I said, 'well, you know there is another option." Pt states he was referring to a suicidal act, but states he did not outwardly express language of desire to harm himself. He denies any desire or intent to end his life, and reports he is simply looking for more information to make an informed decision. "It was a bad joke, I know I can't say that, not here." We reviewed his concerns about recovery, stating he was happy that a insurance service representative from [facility] would be coming to speak with him. This provider asked the patient if he felt he would be able to manage the transition with regard to his mental health. Pt states, "I don't have concerns, not as far as mood, I can deal with that. It's the fact I won't be able to work, how will I pay bills, but those are all things I'm going to figure out. Pt denies history of SI or previous psychiatric treatment. Pt was inquired about his thoughts regarding possible development of SI given his life-changing decision and transition, and he denies any concerns. He mentions several supports and states he talks frequently with individuals and finds "venting" to be helpful for him. He does not feel his is at risk of harm to himself, and adamantly denies SI for the duration of our conversation. Principal Diagnosis no Discharge Data Allergies Allergy/AdvReac Type Severity Reaction Status Date / Time doxycycline Allergy Unknown Rash Verified 09/28/18 19:13 Consultations 09/13/18 15:18 Consult Case Management - Discharge Planning Routine Consult Nephrology Routine 09/15/18 22:31 Consult Orthopedic Surgery Routine 09/17/18 14:59 Consult Psychiatry Routine 09/17/18 17:30 Consult Infectious Diseases Routine 09/29/18 18:26 Consult Case Management - Discharge Planning Routine Procedures Performed Operation Date: 09/29/18 14:20 Actual Procedures p Left Leg Below Knee Amputation(Left) - Jareth Cuevas MD Ordered Studies 09/29/18 15:00 US - OR guided needle placemen Routine US - OR guided needle placemen Routine Hospital Course (1) Infection of left foot: (2) Stress and adjustment reaction: (3) Wound of foot: (4) Acute blood loss anemia: (5) Diabetes: (6) End-stage renal disease on hemodialysis: (7) Hypertension: (8) Anemia due to chronic kidney disease: (9) ESRD on dialysis: 58-year-old white male admitted on September 13, 2018 because of left lower extremity chronic wound, Left foot was done amputation on September 29, 2018 Left foot infected wound, postop day 4 from a left below-knee amputation for severe infected and gangrenous left foot. per ortho : is going to leave this bandage in place for 2 weeks. need to see Dr. Cuevas in 2 weeks postop , and will assess for suture removal. Per Dr. cuevas, Likely his stitches are going to need to be in for 3 weeks . cont DVT prophylaxis including thigh-high TEDs and SCDs. per ortho, not a candidate for other anticoagulation due to his anemia and blood loss issues. Hypotensive during the dialysis 2 episodes 2 days ago, never has this problem be fore Today's dialysis went well, no hypo-tensive Has advised nursing staff with close blood pressure monitoring, hx of s/p amputation of 5th toe and 5th metatarsal and extensive debridement of foot for underlying infection Accelerated hypertension: Stable continue follow-up Possible acute blood loss anemia upon admission: HB 8.2 from 9.1 today , patient on iron p.o. at home, will continue, continue follow-up with nephrology, Epogen if needed Diabetic, secondary hypothyroidism, continue current medication, PTOT nursing home social worker for planning for rehab probably soon DVT prophylaxis is covered Discharge instruction you have Left foot infected wound, postop day 4 from a left below-knee amputation per ortho : is going to leave this bandage in place for 2 weeks. need to see by Dr. Cuevas in 2 weeks postop , and will assess for suture removal. Per Dr. cuevas, Likely his stitches are going to need to be in for 3 weeks . cont DVT prophylaxis including thigh-high TEDs and SCDs. you need to continue dialysis Subjective upon discharge Doing well today, however it was tired, not sleeping well at nighttime, tried Restoril which was no help Review of Systems at discharge Constitutional: Positive weakness, or fatigue Respiratory: no cough, sputum, wheezing, or dyspnea on exertion Cardiac: No chest pain, No orthopnea, No PND, Abdomen: No pain, No nausea, No vomiting, No diarrhea, Musculoskeletal: Left foot in dressing, no joint pain, No muscle pain, Neurologic: No paralysis, No weakness, No numbness/tingling, Psychiatric: No depression symptoms, No anhedonism, No anxiety, Heme: No abnormal bleeding/bruising, No clotting problems, Integumentary: + wounds (left foot, foul odor, tissue, no pain) Physical Exam at discharge General Appearance: obesity, no obvious anxious, WD/WN, no apparent distress, Eyes: normal inspection, PERRL, EOMI, sclerae normal ENT: normal ENT inspection, hearing grossly normal, pharynx normal Neck: supple, no adenopathy, thyroid normal, no JVD, no carotid bruits, trachea midline Respiratory/Chest: chest non-tender, significantly decreased breath sounds, no respiratory distress, no accessory muscle use, breath sounds, rales, wheezing Cardiovascular: regular rate, rhythm, no JVD, no murmur Abdomen: normal bowel sounds, non tender, soft, no organomegaly, Extremities: Left lower extremity BKA in dressing Lab data at discharge: Laboratory Results - last 24 hr 10/02/18 10/02/18 10/03/18 17:03 20:11 07:59 WBC 10.87 H RBC 2.78 L Hgb 8.2 L Hct 25.8 L MCV 92.8 MCH 29.5 MCHC 31.8 L RDW Std Deviation 53.9 H RDW Coeff of Dorcas 16.2 H Plt Count 293 MPV 9.2 Immature Gran % (Auto) 0.3 Neut % (Auto) 68.0 Lymph % (Auto) 24.7 [place] % (Auto) 4.3 Eos % (Auto) 2.4 Baso % (Auto) 0.3 Immature Gran # (Auto) 0.03 H Neut # (Auto) 7.40 H Lymph # (Auto) 2.68 [place] # (Auto) 0.47 Eos # (Auto) 0.26 Baso # (Auto) 0.03 Polychromasia 1+ Anisocytosis Present Sodium Potassium Chloride Carbon Dioxide Anion Gap BUN Creatinine Est Cr Clr Drug Dosing Est GFR ( Amer) Est GFR (Non-Af Amer) BUN/Creatinine Ratio Glucose POC Glucose 124 H 86 Calcium Magnesium 10/03/18 10/03/18 10/03/18 07:59 07:59 08:22 WBC RBC Hgb Hct MCV MCH MCHC RDW Std Deviation RDW Coeff of Dorcas Plt Count MPV Immature Gran % (Auto) Neut % (Auto) Lymph % (Auto) [place] % (Auto) Eos % (Auto) Baso % (Auto) Immature Gran # (Auto) Neut # (Auto) Lymph # (Auto) [place] # (Auto) Eos # (Auto) Baso # (Auto) Polychromasia Anisocytosis Sodium 138 Potassium 4.8 Chloride 104 Carbon Dioxide 23 Anion Gap 11.0 BUN 92 H Creatinine 7.75 H* D Est Cr Clr Drug Dosing 17.4 Est GFR ( Amer) 8.2 Est GFR (Non-Af Amer) 7.0 BUN/Creatinine Ratio 11.8 Glucose 99 POC Glucose 105 H Calcium 8.5 Magnesium 2.5 H Cancelled 10/03/18 11:59 WBC RBC Hgb Hct MCV MCH MCHC RDW Std Deviation RDW Coeff of Dorcas Plt Count MPV Immature Gran % (Auto) Neut % (Auto) Lymph % (Auto) [place] % (Auto) Eos % (Auto) Baso % (Auto) Immature Gran # (Auto) Neut # (Auto) Lymph # (Auto) [place] # (Auto) Eos # (Auto) Baso # (Auto) Polychromasia Anisocytosis Sodium Potassium Chloride Carbon Dioxide Anion Gap BUN Creatinine Est Cr Clr Drug Dosing Est GFR ( Amer) Est GFR (Non-Af Amer) BUN/Creatinine Ratio Glucose POC Glucose 117 H Calcium Magnesium Total Time Total Time Spent Total Time Spent (In Minutes): 35 Discharge Plan Discharge Items Patient Disposition: Transfer Inpatient Rehab Fac Reason For Visit: acute blood loss anemia,cellulitis Discharge Diagnosis: Left foot infected wound, postop day 4 from a left below- knee amputation Condition: Fair Discharge Goals: Decrease discomfort, Diagnostic testing, Improve disease control, Learn about illness and Therapeutic intervention Activity: As commented below Non-emergency contact: Primary Care Provider, Surgeon and Specialist Call non-emergency contact if: you have any medication questions Follow-up/Referrals: Jareth Cuevas MD [Surgeon] - (Return to orthopedic clinic 2-3 weeks from surgery date) Diet: Dialysis Renal and Heart Healthy Addtl Provider Instructions: you have Left foot infected wound, postop day 4 from a left below-knee amputation per ortho : is going to leave this bandage in place for 2 weeks. need to see by Dr. Cuevas in 2 weeks postop , and will assess for suture removal. Per Dr. cuevas, Likely his stitches are going to need to be in for 3 weeks . cont DVT prophylaxis including thigh-high TEDs and SCDs. you need to continue dialysis Possible acute blood loss anemia upon admission: HB 8.2 from 9.1 today we will continue follow-up Diabetic, secondary hypothyroidism, continue current medication, you have anemia , please follow up with financial aid advisor Keep Left Leg bandage clean, dry, and in place until return to clinic appointment in 2-3 weeks. you need to follow up with your primary care physician in 1 week, - take medication as instructed, never overdose or any misuse, or take with alcohol, because misuse of medicine may cause organ damage or , call me, or your primary care physician if have questions of discharge medicaitons. - call your primary care physician, or go to local emergency room if has any fever/chill, chest pain, shortness of breathing, nausea/vomiting/abdominal pain, facial droop/slurry speech/local weakness, or if has any questions. - fall precaution - diet as instructed - you need to follow up with your subspecialist, such as Dr. Ceuvas Prescriptions: New multivitamin [Daily-William] Tablet 1 tab PO QAM 30 Days Qty: 30 RF: 0 hydrocodone-acetaminophen [[place]] 5-325 mg Tablet 1 tab PO Q6 PRN (Reason: pain) 3 Days Qty: 10 RF: 0 temazepam 15 mg Capsule 15 mg PO HSZ PRN (Reason: insomnia) 10 Days Qty: 10 RF: 0 Renal Caps 1 mg Capsule 1 cap PO QAM 30 Days Qty: 30 RF: 0 Continued clopidogrel 75 mg Tablet 75 mg PO DAILY Qty: 0 RF: 0 calcium acetate 667 mg Capsule 2,001 mg PO TIDM Qty: 0 RF: 0 docusate sodium 100 mg Capsule 100 mg PO BID RF: 0 insulin glargine [Lantus U-100 Insulin] 100 unit/mL Solution 10 unit SUBCUT DAILY RF: 0 polyethylene glycol 3350 [Miralax] 17 gram Powder In Packet 17 g PO DAILY PRN (Reason: Constipation) RF: 0 sennosides-docusate sodium [Senokot-S] 8.6-50 mg Tablet 1 tab PO DAILY PRN (Reason: Constipation) RF: 0 bisacodyl 10 mg Suppository 10 mg MT DAILY PRN (Reason: Constipation) RF: 0 ferrous sulfate 325 mg (65 mg iron) Tablet 325 mg PO BID RF: 0 dextrose 50 % in water (D50W) Syringe 50 ml IV DIRECTED RF: 0 glucagon HCl 1 mg Recon Soln 1 dose subcut DAILY PRN (Reason: Hypoglycemia) RF: 0 acetaminophen [Tylenol] 325 mg Tablet 650 mg PO Q4 PRN (Reason: pain 1-3) RF: 0 lisinopril 20 mg Tablet 40 mg PO DAILY RF: 0 dextrose [Glucose Gel] 40 % Gel 1 dose PO DIRECTED PRN (Reason: Hypoglycemia) RF: 0 insulin aspart U-100 [Novolog U-100 Insulin aspart] 100 unit/mL Solution 1 sliding scale dose SUBCUT UD RF: 0 darbepoetin tulio in polysorbat [Aranesp (in polysorbate)] 100 mcg/mL Solution 1 dose subcut DIRECTED RF: 0 Changed amlodipine [Norvasc] 5 mg Tablet 10 mg PO DAILY Qty: 0 RF: 0 metoprolol tartrate 50 mg Tablet 75 mg PO Q12 Qty: 0 RF: 0 Discontinued ceftriaxone 2 gram Recon Soln 1 dose IV DAILY RF: 0 vancomycin 1.5 gram Recon Soln 1 dose IV DIRECTED RF: 0 Stand-Alone Forms: [facility] Discharge Orders: Discharge Order (Routine); Ordered 10/03/18 Ordered By: Wes Abdullahi Skilled Items Patient informed of condition?: Yes DNR: No Discharge Level of Care: Acute rehab Communicable Disease: Yes Discharge Prognosis: Stable Admission Data Admit Date/Time: 09/13/18 13:40 Attending Provider: Wes Abdullahi Admit Provider: Davis Blanco Primary Care Provider: Ashley Villagran Other Providers: Davis Blanco ; Wes Abdullahi ; Rashaun Hamilton Fahima ; Martin, James S. ; Clarisa Guzman ; Campos Almonte Service: Surgical Services
[2018-10-03] MEDS: METOPROLOL TARTRATE 50 MG TAB PO SCH (13:57)
[2018-10-03] MEDS: AMLODIPINE BESYLATE 5 MG TAB PO SCH (13:58)
[2018-10-03] MEDS: LISINOPRIL 40 MG TAB PO SCH (13:59)
== END 2018-10-03 16:30 | DRG 239 ==
LOC: ED 10:56 → SUATTDRO 13:40 → 3W 13:40

== ENCOUNTER 2022-06-26 11:10 | Inpatient (IN) ==
[2022-06-26 11:55] LABS: Basophils # (auto) 0.05 K/uL (0-0.2); Basophils % (auto) 0.9 %; Eosinophils # (auto) 0.03 K/uL (0-0.50); Eosinophils % (auto) 0.5 %; Hematocrit (blood only) 34.1 % (40.1-51.0); Hemoglobin 11.2 g/dl (14.0-18.0); Immature Granulocytes # (auto) 0.01 K/uL (0.00-0.02); Immature Granulocytes % (auto) 0.2 %; Lymphocytes # (auto) 1.32 K/uL (1.2-3.4); Lymphocytes % (auto) 23.4 %; Mean Corpuscular Hemoglobin 29.2 pg (25.0-34.0); Mean Corpuscular Hgb Conc 32.8 g/dL (32.0-36.0); Mean Platelet Volume 10.8 fL (9.4-12.4); Monocytes # (auto) 0.41 K/uL (0.24-0.82); Monocytes % (auto) 7.3 %; Neutrophils # (auto) 3.81 K/uL (1.4-6.5); Neutrophils % (auto) 67.7 %; Platelet Count 221 K/uL (130-400); RDW Coefficient of Variation 16.5 % (11.5-14.5); RDW Standard Deviation 53.7 fL (36.4-46.3); Red Blood Count 3.83 M/uL (4.63-6.08); White Blood Count 5.63 K/ul (4.8-10.8)
--- NOTE | 2022-06-26 12:06 | Emergency Department Note ---
Impression & Plan Weakness, Open leg wound, End-stage renal disease on hemodialysis ED Provider Note NAME: AMAYA KRUEGER JR AGE: 62 SEX: M : 1960 ARRIVES VIA: Ambulance INFORMANT: Patient ED PROVIDER(S): Rashaun Chiang DO CHIEF COMPLAINT: Weakness HPI: Patient is a 62-year-old male who presents the ER for CAD, heart failure, end-stage renal disease on dialysis Friday, Friday, and Friday who received complete course today. Admits to diffuse weakness. He has a left BKA. He can no longer walk. Denies any headache or change in vision. No chest pain or shortness of breath. No nausea, vomiting, or diarrhea. No other exacerbating or remitting factors. He notes he has diffuse wounds throughout both extremities. ROS: See above HPI for pertinent positives & negatives. A total of 10 systems reviewed and were otherwise negative. PAST MEDICAL HISTORY:See Below PAST SURGICAL HISTORY:See Below FAMILY HISTORY:See Below SOCIAL HISTORY:See Below HOME MEDICATIONS:See Below ALLERGIES:See Below VITALS:See Below PHYSICAL EXAMINATION: GENERAL: Sitting up in bed, alert, well appearing, well nourished, no distress, non-toxic EYE EXAM: normal conjunctiva. PERRL and EOM's grossly intact. OROPHARYNX:mucous membranes are moist NECK: supple, no nuchal rigidity, no adenopathy, non-tender LUNGS: Clear to auscultation. Normal chest wall mechanics HEART: S1 normal and S2 normal ABDOMEN: abdomen soft, non-tender, normo-active bowel sounds, no masses, no rebound or guarding. BACK: Back is symmetrical on inspection and there is no deformity, no midline tenderness, no CVA tenderness. SKIN: Multiple open wounds throughout the extremities and scratch murdock on the back and chest. UPPER EXTREMITIES: upper extremities are grossly normal. LOWER EXTREMITIES: Left BKA with erythema at the base of the old incision. Multiple wounds throughout the left leg and the right lower extremity. Unable to appreciate a DP or PT on the right lower extremity. NEURO EXAM: Normal sensorium, cranial nerves II-XII grossly intact, normal speech, no gross weakness of arms, no gross weakness of legs. MEDICAL DECISION MAKING: Patient is a 62-year-old male who presents the ER for weakness. He has a left BKA and is no longer able to get around at home. He completed a full course of dialysis today. IV was established blood work was obtained. Labs show no significant leukocytosis. Mild anemia 11.2. BMP with a creatinine of 3.1 and potassium of 4. Lactate 1.2. T bili 1.6. Troponin was elevated although likely secondary to CKD on dialysis. Pro-Gaurav 2.3. Ultibro open wounds and sores and was covered with Dapto. Updated bedside. Discussed with the hospitalist admitted for further work-up. Triage Nursing notes reviewed. Limited review of prior medical records performed Vital Signs: reviewed and remarkable for htn Differential diagnosis: Differential diagnosis includes etiologies such as sepsis, UTI, pneumonia, metabolic, electrolyte abnormalities, cardiac sources, intracerebral event, toxicologic, neurological, as well as others were entertained. ER treatment provided: See below Diagnostics interpreted by me: ECG: none Cardiac Monitoring: An order was placed for continuous cardiac monitoring. The monitor shows a rate of 80 with sinus rhythm. Laboratory studies: As stated above and show below. Imaging studies: See below Consultation(s): none Procedures: none Critical Care: None Past Med/Surg History Medical History Acute blood loss anemia Acute kidney injury Amputated toe of left foot Amputated toe of right foot Anasarca Bilateral cellulitis of lower leg ESRD (end stage renal disease) on dialysis Gangrene Gangrene HTN (hypertension) Hyperparathyroidism due to end stage renal disease on dialysis Metabolic acidosis Nephrotic syndrome Obesity Osteomyelitis Proteinuria Surgical History History of angioplasty of peripheral vessel S/P arteriovenous (AV) fistula creation Status post incision and drainage left foot wound Family History Other Diabetes Family history non-contributory Hypertension Social History Smoking Status: Smoker, status unknown Second Hand Exposure: No; Hx Alcohol Use: No Hx Substance Use: No Preferred Language: Algerian Communication Ability: Effective Visual Impairment: No Limitations Hearing Ability: Hard of Hearing Recruiting Administrator Required: No Beliefs That Will Affect Care: None marital status: Single Current Living Situation: Alone Feels Safe at Home: Yes caffeine: Yes during the past year weight has: remained stable Seatbelt Use: always Sunscreen Use: No Assistive Devices: Wheelchair Allergies Allergies Allergy/AdvReac Type Severity Reaction Status Date / Time doxycycline Allergy Unknown Rash Verified 05/15/22 11:14 cephalexin [From Keflex] AdvReac Intermediate ITCHING Verified 05/15/22 11:14 Home Meds Home Medications Medication Instructions Recorded Confirmed insulin glargine 100 unit/mL (3 See Rx Instructions .Route .COMPLEX 05/15/22 mL) subcutaneous pen (Basaglar KwikPen U-100 Insulin) Results & Data (ED) Vital Signs Vital Signs - 24 hr 06/26/22 10:58 06/26/22 10:58 06/26/22 10:58 Temperature 37.6 C H Temperature Source Oral Pulse Rate 80 Pulse Rate [Apical] 82 Respiratory Rate 18 18 Respiratory Depth Normal Blood Pressure 149/106 H Blood Pressure [Left Arm] Blood Pressure Mean 120 Blood Pressure Mean [Left Arm] Pulse Oximetry 97 96 96 Oxygen Delivery Method Room Air Room Air Room Air Sepsis Recent Fever Within 48 Hours No Sepsis New/Unexplained Change in Mental Status N/A Sepsis Action Taken by Nursing No Action Required 06/26/22 11:42 06/26/22 11:42 06/26/22 12:10 Temperature Temperature Source Pulse Rate 81 Pulse Rate [Apical] 82 82 Respiratory Rate 16 16 16 Respiratory Depth Blood Pressure Blood Pressure [Left Arm] Blood Pressure Mean Blood Pressure Mean [Left Arm] Pulse Oximetry 96 96 97 Oxygen Delivery Method Room Air Room Air Room Air Sepsis Recent Fever Within 48 Hours Sepsis New/Unexplained Change in Mental Status Sepsis Action Taken by Nursing 06/26/22 13:55 06/26/22 14:31 Temperature Temperature Source Pulse Rate Pulse Rate [Apical] 72 80 Respiratory Rate 16 19 Respiratory Depth Blood Pressure Blood Pressure [Left Arm] 116/74 Blood Pressure Mean Blood Pressure Mean [Left Arm] 88 Pulse Oximetry 96 96 Oxygen Delivery Method Room Air Room Air Sepsis Recent Fever Within 48 Hours Sepsis New/Unexplained Change in Mental Status Sepsis Action Taken by Nursing Laboratory Data Result diagrams: 06/26/22 11:28 06/26/22 11:28 Lab Results 06/26/22 06/26/22 06/26/22 Range/Units 11:28 11:28 11:28 WBC 5.63 (4.8-10.8) K/ul RBC 3.83 L (4.63-6.08) M/uL Hgb 11.2 L (14.0-18.0) g/dl Hct 34.1 L (40.1-51.0) % MCV 89.0 (80.0-100.0) fL MCH 29.2 (25.0-34.0) pg MCHC 32.8 (32.0-36.0) g/dL RDW Std Deviation 53.7 H (36.4-46.3) fL RDW Coeff of Dorcas 16.5 H (11.5-14.5) % Plt Count 221 (130-400) K/uL MPV 10.8 (9.4-12.4) fL Immature Gran % (Auto) 0.2 % Neut % (Auto) 67.7 % Lymph % (Auto) 23.4 % [place] % (Auto) 7.3 % Eos % (Auto) 0.5 % Baso % (Auto) 0.9 % Neut # (Auto) 3.81 (1.4-6.5) K/uL Lymph # (Auto) 1.32 (1.2-3.4) K/uL [place] # (Auto) 0.41 (0.24-0.82) K/uL Eos # (Auto) 0.03 (0-0.50) K/uL Baso # (Auto) 0.05 (0-0.2) K/uL Immature Gran # (Auto) 0.01 (0.00-0.02) K/uL Sodium 138 (136-145) mmol/L Potassium 4.0 (3.5-5.1) mmol/L Chloride 93 L (98-107) mmol/L Carbon Dioxide 34 H (21-32) mmol/L Anion Gap 11 (3-11) BUN 27 H (6-23) mg/dl Creatinine 3.18 H (0.6-1.4) mg/dl Est Cr Clr Drug Dosing 55.9 ml/min Est GFR ( Amer) 23.3 ml/min Est GFR (Non-Af Amer) 20.1 ml/min BUN/Creatinine Ratio 8.5 L (10-20) Glucose 71 (70-99(Fasting)) mg/dl Lactate 1.2 (0.4-2.0) mmol/L Calcium 9.2 (8.5-10.1) mg/dl Magnesium 2.1 (1.7-2.4) mg/dl Total Bilirubin 1.6 H (0.2-1.0) mg/dl Direct Bilirubin 0.7 H (0-0.2) mg/dl AST 39 (13-39) U/L ALT 23 (7-52) U/L Alkaline Phosphatase 227 H (34-104) U/L Troponin I High Sens 49.0 H (0-20) pg/ml Total Protein 7.5 (6.0-8.3) gm/dl Albumin 3.9 (3.4-5.0) gm/dl Procalcitonin (0-0.5) ng/ml SARS-CoV-2, RNA, NAAT (NEGATIVE) 06/26/22 06/26/22 Range/Units 11:28 Unknown WBC (4.8-10.8) K/ul RBC (4.63-6.08) M/uL Hgb (14.0-18.0) g/dl Hct (40.1-51.0) % MCV (80.0-100.0) fL MCH (25.0-34.0) pg MCHC (32.0-36.0) g/dL RDW Std Deviation (36.4-46.3) fL RDW Coeff of Dorcas (11.5-14.5) % Plt Count (130-400) K/uL MPV (9.4-12.4) fL Immature Gran % (Auto) % Neut % (Auto) % Lymph % (Auto) % [place] % (Auto) % Eos % (Auto) % Baso % (Auto) % Neut # (Auto) (1.4-6.5) K/uL Lymph # (Auto) (1.2-3.4) K/uL [place] # (Auto) (0.24-0.82) K/uL Eos # (Auto) (0-0.50) K/uL Baso # (Auto) (0-0.2) K/uL Immature Gran # (Auto) (0.00-0.02) K/uL Sodium (136-145) mmol/L Potassium (3.5-5.1) mmol/L Chloride (98-107) mmol/L Carbon Dioxide (21-32) mmol/L Anion Gap (3-11) BUN (6-23) mg/dl Creatinine (0.6-1.4) mg/dl Est Cr Clr Drug Dosing ml/min Est GFR ( Amer) ml/min Est GFR (Non-Af Amer) ml/min BUN/Creatinine Ratio (10-20) Glucose (70-99(Fasting)) mg/dl Lactate (0.4-2.0) mmol/L Calcium (8.5-10.1) mg/dl Magnesium (1.7-2.4) mg/dl Total Bilirubin (0.2-1.0) mg/dl Direct Bilirubin (0-0.2) mg/dl AST (13-39) U/L ALT (7-52) U/L Alkaline Phosphatase (34-104) U/L Troponin I High Sens (0-20) pg/ml Total Protein (6.0-8.3) gm/dl Albumin (3.4-5.0) gm/dl Procalcitonin 2.35 H (0-0.5) ng/ml SARS-CoV-2, RNA, NAAT NEGATIVE (NEGATIVE) Imaging Data Radiologist's Impression: Chest X-Ray 06/26/22 11:31 XR chest 1V portable HISTORY: Sepsis COMPARISON: Chest 06/25/2017. FINDINGS: No pneumothorax. No pleural effusions. The cardiac silhouette remains mildly enlarged. There is bilateral perihilar interstitial/vascular thickening which has progressed in the interval. There are also patchy bilateral hazy airspace opacities most pronounced on the left. IMPRESSION: Perihilar interstitial/vascular thickening with patchy bilateral hazy airspace opacities. This is most pronounced on the left. This could represent pulmonary edema or an atypical pneumonia. ACT 112: Negative or not required by law. Electronically signed by: Brandon Rodrigues M.D. 06/26/2022 12:22 PM Discharge Plan Visit Data Chief Complaint: Weakness ED Provider: Rashaun Chiang Discharge Problem: Weakness, Open leg wound, End-stage renal disease on hemodialysis Forms Stand Alone Forms: [facility] [place] [employer] Prescriptions Prescriptions: No Action Basaglar KwikPen U-100 Insulin 100 unit/mL (3 mL) insulin pen See Rx Instructions .ROUTE .COMPLEX Dose Instruction: INJECT 10 UNITS SUBCUTANEOUSLY ONCE DAILY Rx Instructions: INJECT 10 UNITS SUBCUTANEOUSLY ONCE DAILY-depending on BSG Referrals Referrals: Ashley Villagran DO [Primary Care Provider] -
--- NOTE | 2022-06-26 12:23 | XRay Report ---
XR chest 1V portable HISTORY: Sepsis COMPARISON: Chest 06/25/2017. FINDINGS: No pneumothorax. No pleural effusions. The cardiac silhouette remains mildly enlarged. Ther e is bilateral perihilar interstitial/vascular thickening which has progressed in the interval. There are also patchy bilateral hazy airspace opacities most pronounced on the left. IMPRESSION: Perihilar interstitial/vascular thickening with patchy bilateral hazy airspace opacities. This is mos t pronounced on the left. This could represent pulmonary edema or an atypical pneumonia. ACT 112: Negative or not required by law. Electronically signed by: Brandon Rodrigues M.D. 06/26/2022 12:22 PM
[2022-06-26 12:24] LABS: Albumin Level 3.9 gm/dl (3.4-5.0); BUN Creatinine Ratio 8.5 (10-20); Bilirubin Direct 0.7 mg/dl (0-0.2); Bilirubin,Total 1.6 mg/dl (0.2-1.0); Calcium 9.2 mg/dl (8.5-10.1); Creatinine Clr Calc Pharmacy 55.9 ml/min; Est GFR (African American) 23.3 ml/min; Est GFR (Non-African American) 20.1 ml/min; Magnesium 2.1 mg/dl (1.7-2.4); Total Protein 7.5 gm/dl (6.0-8.3)
[2022-06-26] MEDS ORDERED: DAPTOmycin 950 MG in SYRINGE 0 ML IV SCH (13:15)
--- NOTE | 2022-06-26 13:17 | History & Physical Report ---
Date of Service June 26, 2022 Assessment & Plan (1) Weakness: Plan: - Generalized, has been an ongoing issue for 6 months due to abrupt change in appetite and 40 pound weight loss, but has been acutely worse 3-4 days. - No associated symptoms to suggest infection such as fever, chills, myalgias, body aches, or pain anywhere, however with elevated procal and several open wounds on right lower leg which may be infected. - Does not have an elevated WBC, however his procalcitonin is 2.35, lactate is 1.2. - Pneumonia was considered, given CXR showed findings suggestive of pulmonary edema versus pneumonia, however patient without any respiratory complaints whatsoever, satting well on room air, afebrile. - Suspect this is a chronic issue, possibly exacerbated by a wound infection as he has several open wounds on his right lower extremity. - Blood cultures collected, will also add on a wound collection from one of the open sores on his leg and treat empirically now with daptomycin. - Nephrology will be consulted to arrange for dialysis while patient is admi tted. - Vascular surgery was also consulted as patient has extensive vascular disease, pulses difficult to palpate. Patient reports he is due for an angioplasty with Dr. Solomon at some point. Unsure when. (2) Elevated troponin: Plan: - Troponin elevated to 49, this may be elevated in the setting of known CAD and ESRD. - We will trend troponin while admitted and obtain echo. (3) PAD (peripheral artery disease): Plan: - 4 years s/p left BKA. - Right lower extremity has several open circumferential wounds measuring several mm - several cm in diameter, dorsalis pedis and posterior tibialis pulses are not palpable, per review of wound care note from earlier last month this is not new. His pulses were weak but detectable with Doppler then. - He is not on any antiplatelets or statins. - Wound care consulted. (4) Coronary artery disease: Plan: - Per PCP note from April, patient denies history of this, no current medications. Cannot find any cardiology notes, he is declined echoes and referral to cardiology in the past. - Will have on a low-salt/DM diet while admitted. An echo has been ordered given elevated troponin. (5) Chronic diastolic congestive heart failure: Plan: - Patient denies history of this, however was at one point was on Lasix 80 mg on non-dialysis days but discontinued this on his own as he felt it was not helpful, her PCP note in April unwilling to resume that at this time. - CXR does suggest possible pulmonary edema, volume status is difficult to determine due to body habitus, however is without any right lower extremity edema. - BNP was not obtained on initial labs, will add this on or get with next troponin. - Echo ordered as above. - Low-salt diet. Strict I/Os. Daily weights. (6) End-stage renal disease on hemodialysis: Plan: - Receives dialysis M/W/F, received complete treatment today. - His creatinine is 3.18, BUN 27. Potassium 4.0. (7) Diabetes: Plan: - Type II diabetic, maintained only on Lantus 10 units which she takes around midnight. - Continue this, add on SSI. - Per PCP report last A1c was 5.4%, indicating great control of sugars. - DM2/low-salt diet. (8) Hypertension: Plan: - Controlled without medication, continue to monitor. (9) Secondary hyperparathyroidism of renal origin: Plan: - Secondary to ESRD. (10) Anemia due to chronic kidney disease: Plan: - Hgb 11.2, in setting of CKD, is at patient's baseline. - Continue to monitor. Plan - Admit to med/tle. - SCDs, hepring for VTE ppx. - Full Code. History of Present Illness Chief Complaint: general weakness Primary Care Provider: DO Michael Bunch Therapeutic Radiologist is a 62-year-old male with a past medical history of ESRD on dialysis M//, diabetes, CAD, HFpEF, is presenting today with weakness. He states 6 months ago he had been doing well and then suddenly had a rapid decline in his ability to ambulate due to a lack of appetite in which he lost 40 pounds and believes most of this was his muscle mass. Over the past 3-4 days, he has felt profoundly weak and is barely able to stand himself out of his chair. He has no other specific complaints, specifically denies any chest pain or palpitations, shortness of breath, cough, orthopnea, fever, chills, or body aches. He has a left BKA and his right leg has numerous ulcers which she is being treated by wound care for currently and states his leg looks the same as it always has and is no different than how it appeared 1 week or even 1 month ago. He is chronic pain from the ulcers, again no worse than normal for him. His main concern today is that he is unable to take care of himself at home because he cannot stand or walk from his weakness. He is a diabetic and takes 10 units of insulin at midnight, sometimes takes extra units based on his diet over the course of the day. Yesterday his sugar was at 60, and he attributes this to the fact that he was in [place] [facility] had a potassium 6.5 and was given extra insulin to lower this in addition to his home dose. He otherwise does not struggle with low blood sugars, but also does not check his sugar very frequently at all when he is at home. On presentation he is moderately hypertensive 149/106, otherwise vital signs are within normal limits. Labs notable for Pro-Gaurav of 2.35, though WBC normal at 5.63. BUN 27, creatinine 3.8, received dialysis today. His troponin is 49. CXR shows perihilar interstitial/vascular thickening with patchy bilateral hazy airspace opacities which are more pronounced on the left, possibly pulmonary edema or an atypical pneumonia. Allergies Allergy/AdvReac Type Severity Reaction Status Date / Time doxycycline Allergy Unknown Rash Verified 06/26/22 17:29 cephalexin [From Keflex] AdvReac Intermediate ITCHING Verified 06/26/22 17:29 Home Medications Medication Instructions Recorded Confirmed Type insulin glargine 100 unit/mL (3 See Rx Instructions .Route .COMPLEX 05/15/22 06/26/22 History mL) subcutaneous pen (Basaglar KwikPen U-100 Insulin) Phosphate Binder 0 mg PO DIRECTED 06/26/22 06/26/22 History Past Med/Surg History Medical History Acute blood loss anemia Acute kidney injury Amputated toe of left foot Amputated toe of right foot Anasarca Bilateral cellulitis of lower leg ESRD (end stage renal disease) on dialysis Gangrene Gangrene HTN (hypertension) Hyperparathyroidism due to end stage renal disease on dialysis Metabolic acidosis Nephrotic syndrome Obesity Osteomyelitis Proteinuria Surgical History History of angioplasty of peripheral vessel S/P arteriovenous (AV) fistula creation Status post incision and drainage left foot wound Family History Other Diabetes Family history non-contributory Hypertension Social History Smoking Status: Never smoker Second Hand Exposure: No; Hx Alcohol Use: Yes Hx Substance Use: No Preferred Language: Turkish Communication Ability: Effective Visual Impairment: No Limitations Hearing Ability: Hard of Hearing Agricultural Technical Officer Required: No Beliefs That Will Affect Care: None marital status: Single Current Living Situation: Alone Feels Safe at Home: Yes caffeine: Yes during the past year weight has: remained stable Seatbelt Use: always Sunscreen Use: No Assistive Devices: Prosthesis and Walker Review of Systems Review of Systems: Constitutional: Decreased appetite and general weakness ongoing for 6 months, weakness significantly worse over 3 to 4 days; no fever/chills, fatigue, myalgias, night sweats Eyes: No diplopia, no worsening or blurred vision ENT: normal hearing, no trouble swallowing Respiratory: No cough, sputum, dyspnea at rest or on exertion Cardiovascular: No chest pain, tightness or palpitations Abdomen: No pain, nausea, vomiting, diarrhea or constipation : Denies dysuria, hematuria, increased urgency/frequency, urinary retention Musculoskeletal: No joint pain, calf pain, swelling Neurologic: No weakness, numbness/tingling, or balance problems Psychiatric: No anxiety or depression Skin: No rash or itch Physical Exam Physical Exam: General: awake, alert, no apparent distress Head: Normocephalic, atraumatic ENT: PERRL, EOMI, no pharyngeal exudate, mucous membranes moist Chest: Exam limited by body habitus; Clear to auscultation, on room air, no adventitious breath sounds Cardiac: Exam limited by body habitus; regular rate and rhythm, no murmur, no JVD, normal peripheral pulses, good capillary refill Abdominal: NABS x 4 quadrants, soft, nontender to palpation, no rebound, guarding or tenderness Extremities: Normal inspection, no peripheral edema or erythema, calfs nontender to palpation Psych: Normal mood and affect Neuro: AAO x 3, strength intact bilaterally and rated 5/5, no motor deficits, speech is clear, no peripheral sensory deficits Skin: no rash or erythema Results & Data Results & Data ([facility]) Vital Signs (Past 12 Hours) Vital Signs Temp Pulse Pulse Resp BP Pulse Ox O2 Del Method 06/26/22 12:10 82 16 97 Room Air 06/26/22 11:42 82 16 96 Room Air 06/26/22 11:42 81 16 96 Room Air 06/26/22 10:58 82 18 96 Room Air 06/26/22 10:58 96 Room Air 06/26/22 10:58 37.6 C H 80 18 149/106 H 97 Room Air Laboratory Results Abnormal lab results 06/26/22 06/26/22 06/26/22 Range/Units 11:28 11:28 11:28 RBC 3.83 L (4.63-6.08) M/uL Hgb 11.2 L (14.0-18.0) g/dl Hct 34.1 L (40.1-51.0) % RDW Std Deviation 53.7 H (36.4-46.3) fL RDW Coeff of Dorcas 16.5 H (11.5-14.5) % Chloride 93 L (98-107) mmol/L Carbon Dioxide 34 H (21-32) mmol/L BUN 27 H (6-23) mg/dl Creatinine 3.18 H (0.6-1.4) mg/dl BUN/Creatinine Ratio 8.5 L (10-20) Total Bilirubin 1.6 H (0.2-1.0) mg/dl Direct Bilirubin 0.7 H (0-0.2) mg/dl Alkaline Phosphatase 227 H (34-104) U/L Troponin I High Sens 49.0 H (0-20) pg/ml Procalcitonin 2.35 H (0-0.5) ng/ml Diagnostic Findings Chest X-Ray 06/26/22 11:31 XR chest 1V portable HISTORY: Sepsis COMPARISON: Chest 06/25/2017. FINDINGS: No pneumothorax. No pleural effusions. The cardiac silhouette remains mildly enlarged. There is bilateral perihilar interstitial/vascular thickening which has progressed in the interval. There are also patchy bilateral hazy airspace opacities most pronounced on the left. IMPRESSION: Perihilar interstitial/vascular thickening with patchy bilateral hazy airspace opacities. This is most pronounced on the left. This could represent pulmonary edema or an atypical pneumonia. ACT 112: Negative or not required by law. Electronically signed by: Brandon Rodrigues M.D. 06/26/2022 12:22 PM ECG Additional Comments: Sinus rhythm with occasional Premature ventricular complexes Low voltage QRS Nonspecific T wave abnormality Prolonged QT Abnormal ECG When compared with ECG of 13-SEP-2018 11:50, Premature ventricular complexes are now Present Non- specific change in ST segment in Anterior leads T wave inversion now evident in Anterior leads. Code Status & VTE Plan Code Status Full code. Supervising Physician Co-Signing Physician Notes Patient seen and examined, chart reviewed, case discussed with Mary Ann Hurtado PA-C and I agree with the assessment and plan as above except as otherwise noted Labs and images reviewed 62-year-old male with history of ESRD with progressive weakness, severe peripheral artery disease with worsening ulcerations of his right lower extremity and s/p left BKA. He is sitting up at the bedside at time of visit. Reports that he has had worsening weakness over 3 to 4 days, is unable to lift or transfer from his chair. No fever, chills, sweats, chest pain. No spreading erythema, does note chronic ulcerations that have not changed or with expanding erythema but which do occasionally weep fluid. Reports he can no longer care for himself at home as he cannot stand/walk from progressive weakness. He has not syncopized, loss consciousness, or hit his head. On exam lungs are clear, the entered ulcerations of the right lower extremity with scant white discharge without surrounding erythema or tenderness. S/p left BKA. No JVD. Patient is pending follow-up to vascular surgery for arterial insufficiency of his right lower extremity, he does not have palpable pedal/dorsalis pedis pulses but are intact to Doppler.Given elevated Pro-Gaurav, acute on chronic weakness, and scant p urulent discharge with compromised skin. reasonable to cover empirically for MRSA. Will consult PT/OT for assessment, and consult nephrology for continuation of 3X per week dialysis while inpatient. Patient is pending follow-up to vascular surgery for arterial insufficiency of his right lower extremity, at time of assessment he does not have palpable pedal/dorsalis pedis pulses but are intact to Doppler. PG Care Time/CCT Total # of Minutes Spent Total Time Spent with Patient: Total time spent is greater than 50% in coordination of care (as documented) at patient's floor/unit and/or counseling patient: Coding Level of Care Code 68046 Initial Inpt Care Lvl 3 Diagnoses Weakness R53.1 Elevated troponin R77.8 PAD (peripheral artery disease) I73.9 Coronary artery disease I25.10 Chronic diastolic congestive heart failure I50.32 End-stage renal disease on hemodialysis N18.6; Z99.2 Diabetes E11.9 Hypertension I10 Secondary hyperparathyroidism of renal origin N25.81 Anemia due to chronic kidney disease N18.5; D63.1 Chronic kidney disease stage: stage 5, not on chronic dialysis (1) Anemia due to chronic kidney disease Chronic kidney disease stage: stage 5, not on chronic dialysis Qualified Code(s): N18.5 - Chronic kidney disease, stage 5; D63.1 - Anemia in chronic kidney disease
[2022-06-26] MEDS ORDERED: DAPTOmycin 400 MG in SYRINGE 0 ML IV ONE (14:30)
--- NOTE | 2022-06-26 14:33 | Electrocardiogram Report ---
Test Reason : Blood Pressure : / mmHG Vent. Rate : 080 BPM Atrial Rate : 080 BPM P-R Int : 162 ms QRS Dur : 100 ms QT Int : 418 ms P-R-T Axes : 030 009 107 degrees QTc Int : 482 ms Sinus rhythm with occasional Premature ventricular complexes Low voltage QRS Nonspecific T wave abnormality Prolonged QT Abnormal ECG When compared with ECG of 13-SEP-2018 11:50, Premature ventricular complexes are now Present Non-specific change in ST segment in Anterior leads T wave inversion now evident in Anterior leads Confirmed by Yosef Henson ([id number]) on 06/26/2022 2:32:25 PM Referred By: Confirmed By:Yosef Henson
[2022-06-26] MEDS ORDERED: GLUCOSE 40% GEL 15 GM TUBE PO PRN (16:21)
[2022-06-26] MEDS ORDERED: CARBOHYDRATES FOR HYPOGLYCEMIA PO PRN (16:21)
[2022-06-26] MEDS ORDERED: ALUMINUM/MAGNESIUM SUSP 30 ML UDC PO PRN (16:21)
[2022-06-26] MEDS ORDERED: POLYETHYLENE (MIRALAX) 17 GM PACK PO PRN (16:21)
[2022-06-26] MEDS ORDERED: NON-FORMULARY MEDICATION (Insulin Glargine [Basaglar Kwikpen U-100 Insulin] 100 unit/mL (3 SCH (16:21)
[2022-06-26] MEDS ORDERED: ONDANSETRON INJ 2 MG/ML 2 ML VIAL IV PRN (16:21)
[2022-06-26] MEDS ORDERED: GLUCAGON FOR INJ 1 MG VIAL SQ PRN (16:21)
[2022-06-26] MEDS ORDERED: GLUCOSE 10 TAB/TUBE PO PRN (16:21)
[2022-06-26] MEDS ORDERED: DEXTROSE 50% 50 ML SYRINGE IV PRN (16:21)
[2022-06-26] MEDS: HEPARIN SOD 5,000 UNIT/0.5 ML VIAL SQ SCH ×2 (18:00→20:50)
[2022-06-26] MEDS: INSULIN ASPART PER UNIT SC SCH ×2 (19:15→20:50)
[2022-06-26] MEDS: LANTUS PER UNIT CHARGE SQ SCH (20:49)
[2022-06-26] MEDS: ACETAMINOPHEN 325 MG TAB PO PRN (23:58)
[2022-06-27 03:50] LABS: Basophils # (auto) 0.06 K/uL (0-0.2); Basophils % (auto) 0.9 %; Eosinophils # (auto) 0.09 K/uL (0-0.50); Eosinophils % (auto) 1.3 %; Hematocrit (blood only) 31.8 % (40.1-51.0); Hemoglobin 10.2 g/dl (14.0-18.0); Immature Granulocytes # (auto) 0.02 K/uL (0.00-0.02); Immature Granulocytes % (auto) 0.3 %; Lymphocytes # (auto) 1.65 K/uL (1.2-3.4); Lymphocytes % (auto) 23.4 %; Mean Corpuscular Hemoglobin 29.3 pg (25.0-34.0); Mean Corpuscular Hgb Conc 32.1 g/dL (32.0-36.0); Mean Corpuscular Volume 91.4 fL (80.0-100.0); Mean Platelet Volume 10.2 fL (9.4-12.4); Monocytes # (auto) 0.52 K/uL (0.24-0.82); Monocytes % (auto) 7.4 %; Neutrophils % (auto) 66.7 %; Platelet Count 192 K/uL (130-400); RDW Coefficient of Variation 16.4 % (11.5-14.5); RDW Standard Deviation 54.4 fL (36.4-46.3); Red Blood Count 3.48 M/uL (4.63-6.08); White Blood Count 7.04 K/ul (4.8-10.8)
[2022-06-27 04:09] LABS: BUN Creatinine Ratio 9.3 (10-20); Calcium 8.4 mg/dl (8.5-10.1); Creatinine Clr Calc Pharmacy 24.5 ml/min; Est GFR (African American) 15.7 ml/min; Est GFR (Non-African American) 13.6 ml/min; Magnesium 2.1 mg/dl (1.7-2.4); Phosphorus 4.1 mg/dl (2.5-4.9); Potassium 4.3 mmol/L (3.5-5.1)
[2022-06-27] MEDS: HEPARIN SOD 5,000 UNIT/0.5 ML VIAL SQ SCH ×3 (05:00→21:01)
[2022-06-27 07:58] LABS: Estimated Average Glucose 88 mg/dl; Hemoglobin A1C 4.7 % (4.5-5.6)
[2022-06-27] MEDS: LANTUS PER UNIT CHARGE SQ SCH ×2 (08:52→20:53)
[2022-06-27] MEDS: INSULIN ASPART PER UNIT SC SCH ×4 (08:52→20:53)
--- NOTE | 2022-06-27 13:29 | Nephrology Consultation ---
Date of Consultation June 27, 2022 Assessment & Plan (1) End-stage renal disease on hemodialysis: * Volume status and electrolyte balance are acceptable * Will plan next HD in am (2) Anemia due to chronic kidney disease: * Hgb within 10 - 11 range * Will provide ERI w/ treatment (3) Hypertension: * BP is acceptable. Currently does not require medication. Managed w/ UF. Will monitor (4) PAD (peripheral artery disease): * R LE doppler completed 06/25/22 at [facility]: Severe peripheral vascular disease within the R ORGANIZATIONAL PSYCHOLOGIST and DPA * Await Vascular Surgery and wound care evaluations History of Present Illness Reason for Consultation: ESKD on IHD Attending Physician: Melodie Garcia MD History of Present Illness Mr. Quinonez is a 62 year old white male who is seen at the request of the [facility] hospitalist service to provide inpatient HD and assist w/ medical management. Medical records in the EMR were reviewed today and are summarized as follows: Mr. Quinonez has ESKD due to DKD, hypertensive nephrosclerosis and underlying vascular disease. He dialyzes TTS at [facility] under the care of Dr. Israel (4.5hr, 2K 2.5Ca Na 137, HCO3 38, F-250 NR, 14 g needles, Qb500 Qd 800, EDW 130.5 Kg, heparin 3000 unit bolus + 2500 units q1 hr, L forearm AVF, mircera 50 mcg q4wk - last dose 06/14). Mr. Quinonez missed dialysis Friday but completed his full treatment on Friday. During his treatment he appeared very weak and reported several recent falls at home. On exam he was noted to have 3 ischemic ulcers involving his RLE. Hospitalizaton was advised for vascular surgery evaluation and physical therapy. PMH: ESKD, AODM, HTN, PVD s/p L BKA (ambulates using a prosthesis) Allergies Allergy/AdvReac Type Severity Reaction Status Date / Time doxycycline Allergy Unknown Rash Verified 06/26/22 17:29 cephalexin [From Keflex] AdvReac Intermediate ITCHING Verified 06/26/22 17:29 Home Medications Medication Instructions Recorded Confirmed Type insulin glargine 100 unit/mL (3 See Rx Instructions .Route .COMPLEX 05/15/22 06/26/22 History mL) subcutaneous pen (Basaglar KwikPen U-100 Insulin) Phosphate Binder 0 mg PO DIRECTED 06/26/22 06/26/22 History Patient History Medical History Acute blood loss anemia Acute kidney injury Amputated toe of left foot Amputated toe of right foot Anasarca Bilateral cellulitis of lower leg ESRD (end stage renal disease) on dialysis Gangrene Gangrene HTN (hypertension) Hyperparathyroidism due to end stage renal disease on dialysis Metabolic acidosis Nephrotic syndrome Obesity Osteomyelitis Proteinuria Surgical History History of angioplasty of peripheral vessel S/P arteriovenous (AV) fistula creation Status post incision and drainage left foot wound Family History Other Diabetes Family history non-contributory Hypertension Social History Smoking Status: Never smoker Second Hand Exposure: No; Hx Alcohol Use: Yes Hx Substance Use: No Preferred Language: Bahamian Communication Ability: Effective Visual Impairment: No Limitations Hearing Ability: Hard of Hearing Parts Expediter Required: No Beliefs That Will Affect Care: None marital status: Single Current Living Situation: Alone Feels Safe at Home: Yes caffeine: Yes during the past year weight has: remained stable Seatbelt Use: always Sunscreen Use: No Assistive Devices: Prosthesis and Walker Review of Systems Constitutional: no fever Eyes: no worsening vision Ear, Nose, Mouth, Throat: no problem reported Respiratory: no cough and no dyspnea Cardiovascular: no chest pain and no dyspnea Gastrointestinal: no nausea, no vomiting and no diarrhea/loose stools Physical Exam Constitutional: + obese and + disheveled; not in distress Eyes: PERRL, conjunctivae normal, anicteric sclerae ENMT: external ear and nose normal, oropharynx normal Neck: trachea midline, no thyromegaly Respiratory: normal respiratory effort, lungs clear to auscultation Cardiovascular: Rate/Rhythm: regular rate and regular rhythm Extremities: + AV fistula (+ bruit) s/p L BKA - stump w/ skin break down and bullae formation RLE with three ischemic ulcers, R foot is cyanotic, unable to palpate DP/PT pulses Gastrointestinal (Abdomen): normal bowel sounds, soft, nontender, no hepatosplenomegaly Skin: + excoriations Neurologic: Speech / Cognition: normal speech and normal cognition Results & Data ([facility]) Vital Signs (Past 12 Hours) Vital Signs Temp Pulse Resp BP Pulse Ox O2 Del Method 06/27/22 08:00 Room Air 06/27/22 07:56 36.7 C 75 20 133/86 99 Room Air 06/27/22 03:19 36.5 C 79 22 121/67 98 Room Air Laboratory Results Laboratory Results - last 24 hr 06/26/22 06/26/22 06/26/22 11:28 17:57 20:07 WBC RBC Hgb Hct MCV MCH MCHC RDW Std Deviation RDW Coeff of Dorcas Plt Count MPV Immature Gran % (Auto) Neut % (Auto) Lymph % (Auto) Pepin % (Auto) Eos % (Auto) Baso % (Auto) Neut # (Auto) Lymph # (Auto) Pepin # (Auto) Eos # (Auto) Baso # (Auto) Immature Gran # (Auto) Sodium Potassium Chloride Carbon Dioxide Anion Gap BUN Creatinine Est Cr Clr Drug Dosing Est GFR ( Amer) Est GFR (Non-Af Amer) BUN/Creatinine Ratio Glucose POC Glucose 82 91 Estimat Average Glucose Hemoglobin A1c Calcium Phosphorus Magnesium Troponin I High Sens B-Natriuretic Peptide 467 H 06/26/22 06/27/22 06/27/22 22:28 03:43 03:43 WBC 7.04 RBC 3.48 L Hgb 10.2 L Hct 31.8 L MCV 91.4 MCH 29.3 MCHC 32.1 RDW Std Deviation 54.4 H RDW Coeff of Dorcas 16.4 H Plt Count 192 MPV 10.2 Immature Gran % (Auto) 0.3 Neut % (Auto) 66.7 Lymph % (Auto) 23.4 Pepin % (Auto) 7.4 Eos % (Auto) 1.3 Baso % (Auto) 0.9 Neut # (Auto) 4.70 Lymph # (Auto) 1.65 Pepin # (Auto) 0.52 Eos # (Auto) 0.09 Baso # (Auto) 0.06 Immature Gran # (Auto) 0.02 Sodium Potassium Chloride Carbon Dioxide Anion Gap BUN Creatinine Est Cr Clr Drug Dosing Est GFR ( Amer) Est GFR (Non-Af Amer) BUN/Creatinine Ratio Glucose POC Glucose Estimat Average Glucose Hemoglobin A1c Calcium Phosphorus Magnesium Troponin I High Sens 40.9 H 42.4 H B-Natriuretic Peptide 06/27/22 06/27/22 06/27/22 03:43 03:43 08:10 WBC RBC Hgb Hct MCV MCH MCHC RDW Std Deviation RDW Coeff of Dorcas Plt Count MPV Immature Gran % (Auto) Neut % (Auto) Lymph % (Auto) Pepin % (Auto) Eos % (Auto) Baso % (Auto) Neut # (Auto) Lymph # (Auto) Pepin # (Auto) Eos # (Auto) Baso # (Auto) Immature Gran # (Auto) Sodium 134 L Potassium 4.3 Chloride 93 L Carbon Dioxide 31 Anion Gap 10 BUN 41 H Creatinine 4.40 H D Est Cr Clr Drug Dosing 24.5 Est GFR ( Amer) 15.7 Est GFR (Non-Af Amer) 13.6 BUN/Creatinine Ratio 9.3 L Glucose 70 POC Glucose 81 Estimat Average Glucose 88 Hemoglobin A1c 4.7 Calcium 8.4 L Phosphorus 4.1 Magnesium 2.1 Troponin I High Sens B-Natriuretic Peptide 06/27/22 06/27/22 09:48 12:00 WBC RBC Hgb Hct MCV MCH MCHC RDW Std Deviation RDW Coeff of Dorcas Plt Count MPV Immature Gran % (Auto) Neut % (Auto) Lymph % (Auto) Pepin % (Auto) Eos % (Auto) Baso % (Auto) Neut # (Auto) Lymph # (Auto) Pepin # (Auto) Eos # (Auto) Baso # (Auto) Immature Gran # (Auto) Sodium Potassium Chloride Carbon Dioxide Anion Gap BUN Creatinine Est Cr Clr Drug Dosing Est GFR ( Amer) Est GFR (Non-Af Amer) BUN/Creatinine Ratio Glucose POC Glucose 92 Estimat Average Glucose Hemoglobin A1c Calcium Phosphorus Magnesium Troponin I High Sens 42.3 H B-Natriuretic Peptide PG Care Time/CCT Total # of Minutes Spent Total Time Spent with Patient: Total time spent is greater than 50% in coordination of care (as documented) at patient's floor/unit and/or counseling patient: Coding Level of Care Code 70901 Inpt Consult Level 5 Diagnoses End-stage renal disease on hemodialysis N18.6; Z99.2 Anemia due to chronic kidney disease N18.5; D63.1 Chronic kidney disease stage: stage 5, not on chronic dialysis Hypertension I10 PAD (peripheral artery disease) I73.9 (1) Anemia due to chronic kidney disease Chronic kidney disease stage: stage 5, not on chronic dialysis Qualified Code(s): N18.5 - Chronic kidney disease, stage 5; D63.1 - Anemia in chronic kidney disease
[2022-06-27] MEDS ORDERED: DAPTOmycin 400 MG in SYRINGE 0 ML IV SCH (15:00)
--- NOTE | 2022-06-27 15:46 | Hospitalist Progress Note ---
Date of Service June 27, 2022 Assessment & Plan (1) PAD (peripheral artery disease): Plan: -Patient with a history of severe PAD - 4 years s/p left BKA. - Right lower extremity has several open circumferential wounds measuring several mm - several cm in diameter, dorsalis pedis and posterior tibialis pulses are not palpable, per review of wound care note from earlier last month this is not new. His pulses were weak but detectable with Doppler then. - He is not on any antiplatelets or statins. - Wound care consulted. -He had arterial duplex done at [facility] in [place] a couple of days ago, it shows evidence of severe PAD -Vascular on consult (2) Weakness: Plan: - Patient complains of Generalized weakness and 40 pound weight loss, has been an ongoing issue for 6 months, but has been acutely worse 3-4 days. - He has elevated procal and several open wounds on right lower leg which may be infected. - Does not have an elevated WBC, however his procalcitonin is 2.35, lactate is 1 .2. - No evidence of PNA on chest x ray, but some suggestion of congestion. - Suspect this is a chronic issue, possibly exacerbated by a wound infection as he has several open wounds on his right lower extremity. - Blood cultures collected, will also add on a wound collection from one of the open sores on his leg and treat empirically now with daptomycin. - Vascular surgery was also consulted as patient has extensive vascular disease, (3) Elevated troponin: Plan: - Troponin elevated to 49, this may be elevated in the setting of known CAD and ESRD. - We will trend troponin while admitted and obtain echo. -No chest pain (4) Coronary artery disease: Plan: - Per PCP note from April, patient denies history of this, no current medications. Cannot find any cardiology notes, he is declined echoes and referral to cardiology in the past. - Will have on a low-salt/DM diet while admitted. An echo has been ordered given elevated troponin. (5) Chronic diastolic congestive heart failure: Plan: - Patient denies history of this, however was at one point was on Lasix 80 mg on non-dialysis days but discontinued this on his own as he felt it was not helpful, her PCP note in April unwilling to resume that at this time. - CXR does suggest possible pulmonary edema, volume status is difficult to determine due to body habitus, however is without any right lower extremity edema. - BNP was not obtained on initial labs, will add this on or get with next troponin. - Echo ordered as above. - Low-salt diet. Strict I/Os. Daily weights. (6) End-stage renal disease on hemodialysis: Plan: - Nephrology on consult -Continue HD (7) Diabetes: Plan: - Type II diabetic, maintained only on Lantus 10 units which she takes around midnight. - Continue this, add on SSI. - Per PCP report last A1c was 5.4%, indicating great control of sugars. - DM2/low-salt diet. (8) Hypertension: Plan: - Controlled without medication, continue to monitor. (9) Secondary hyperparathyroidism of renal origin: Plan: - Secondary to ESRD. (10) Anemia due to chronic kidney disease: Plan: - Hgb 11.2, in setting of CKD, is at patient's baseline. - Continue to monitor. Plan - continue mgt - SCDs, hepring for VTE ppx. - Full Code. Admission and Anticipated Discharge Date Admission Date: June 26, 2022 Subjective patient seen and examined, still complains of weakness and weight loss Review of Systems Review of Systems: All systems reviewed are negative, apart from the ones contained in the history. Physical Exam Physical Exam: The patient is awake, alert and oriented 3, well developed and well nourished, normocephalic and atraumatic, lying in bed and in no acute distress. HEENT--PERRL, EOMI, mucous membranes and oropharynx mildly dry Neck--supple. No JVD. No bruits. Thyroid normal, trachea midline, no adenopathy. Heart--normal S1 and S2. No murmurs, rubs or gallops. Lungs--clear bilaterally, no respiratory distress, no accessory muscle use. Abdomen--normal bowel sounds and soft. Mild epigastric and left sided abdominal pain Extremities--left above knee amputation, Dermatologic--normal skin turgor, normal color, no abnormal lymph nodes, no rash. Neurologic--cranial nerves II through XII grossly intact. Rheumatologic--normal range of motion. Psychiatric--normal affect. Results & Data Results & Data ([facility]) Vital Signs (Past 12 Hours) Vital Signs Temp Pulse Resp BP Pulse Ox O2 Del Method 06/27/22 08:00 Room Air 06/27/22 07:56 98.1 F 75 20 133/86 99 Room Air PG Care Time/CCT Total # of Minutes Spent Total Time Spent with Patient: Total time spent is greater than 50% in coordination of care (as documented) at patient's floor/unit and/or counseling patient: Coding Level of Care Code 86261 Subseq Hosp Care Lvl 2 Diagnoses PAD (peripheral artery disease) I73.9 Weakness R53.1 Elevated troponin R77.8 Coronary artery disease I25.10 Chronic diastolic congestive heart failure I50.32 End-stage renal disease on hemodialysis N18.6; Z99.2 Diabetes E11.9 Hypertension I10 Secondary hyperparathyroidism of renal origin N25.81 Anemia due to chronic kidney disease N18.5; D63.1 Chronic kidney disease stage: stage 5, not on chronic dialysis Time Spent (min) 35 (1) Anemia due to chronic kidney disease Chronic kidney disease stage: stage 5, not on chronic dialysis Qualified Code(s): N18.5 - Chronic kidney disease, stage 5; D63.1 - Anemia in chronic kidney disease
[2022-06-27] MEDS: SEVELAMER HCL 800 MG TABLET PO SCH (16:53)
--- NOTE | 2022-06-27 17:31 | XCELERA ---
[id number]
[2022-06-28] MEDS: HEPARIN SOD 5,000 UNIT/0.5 ML VIAL SQ SCH ×3 (05:02→20:26)
[2022-06-28] MEDS ORDERED: SODIUM CHLORIDE 0.9% 1000ML 1,000 ML IV PRN (07:00)
[2022-06-28] MEDS ORDERED: EPOETIN ALFA 10,000 UNITS/ML VIAL IV SCH (07:00)
[2022-06-28] MEDS ORDERED: HEPARIN SOD (PORCINE) 1000 UNIT/ML IV SCH (07:00)
[2022-06-28 08:03] LABS: Hematocrit (blood only) 32.8 % (40.1-51.0); Hemoglobin 10.4 g/dl (14.0-18.0); Mean Corpuscular Hemoglobin 29.1 pg (25.0-34.0); Mean Corpuscular Hgb Conc 31.7 g/dL (32.0-36.0); Mean Corpuscular Volume 91.6 fL (80.0-100.0); Mean Platelet Volume 10.4 fL (9.4-12.4); Platelet Count 198 K/uL (130-400); RDW Coefficient of Variation 16.1 % (11.5-14.5); RDW Standard Deviation 54.3 fL (36.4-46.3); Red Blood Count 3.58 M/uL (4.63-6.08); White Blood Count 6.59 K/ul (4.8-10.8)
[2022-06-28] MEDS: SEVELAMER HCL 800 MG TABLET PO SCH ×3 (08:29→17:48)
[2022-06-28] MEDS: LANTUS PER UNIT CHARGE SQ SCH ×2 (08:39→20:25)
[2022-06-28] MEDS: INSULIN ASPART PER UNIT SC SCH ×4 (08:39→20:26)
--- NOTE | 2022-06-28 08:52 | Nephrology Progress Note ---
Date of Service June 28, 2022 Assessment & Plan (1) End-stage renal disease on hemodialysis: Plan: * HD today. Orders have been entered into EMR and HD RN notified (2) Anemia due to chronic kidney disease: Plan: * Hgb within 10 - 11 range * Will provide ERI w/ treatment (3) Hypertension: Plan: * BP is acceptable. Currently does not require medication. Managed w/ UF. Will monitor (4) PAD (peripheral artery disease): Plan: * R LE doppler completed 06/25/22 at [facility]: Severe peripheral vascular disease within the R LINE OPERATOR and DPA * Await Vascular Surgery and wound care evaluations Admission and Anticipated Discharge Date Admission Date: June 26, 2022 Subjective Mr. Quinonez was evaluated in his hospital room this morning. He was seen by Vascular Surgery this morning and told that they would review his doppler studies. He is hopeful that he will still be able to wear his prosthesis and ambulate Review of Systems Constitutional: no fever Eyes: no worsening vision Ear, Nose, Mouth, Throat: no problem reported Respiratory: no cough and no dyspnea Cardiovascular: no chest pain and no dyspnea Gastrointestinal: no nausea, no vomiting and no diarrhea/loose stools Physical Exam Constitutional: + obese and + disheveled; not in distress Eyes: PERRL, conjunctivae normal, anicteric sclerae ENMT: external ear and nose normal, oropharynx normal Neck: trachea midline, no thyromegaly Respiratory: normal respiratory effort, lungs clear to auscultation Cardiovascular: Rate/Rhythm: regular rate and regular rhythm Extremities: + AV fistula (+ bruit) Gastrointestinal (Abdomen): normal bowel sounds, soft, nontender, no hepatosplenomegaly Skin: + excoriations Neurologic: Speech / Cognition: normal speech and normal cognition Results & Data ([facility]) Vital Signs (Past 12 Hours) Vital Signs Temp Pulse Pulse Pulse Resp BP Pulse Ox 06/28/22 07:39 83 06/28/22 07:20 35.7 C L 77 19 173/86 H 97 06/28/22 02:44 36.5 C 78 20 179/61 H 98 06/27/22 23:25 36.7 C 78 19 177/75 H 100 06/27/22 22:01 78 O2 Del Method 06/28/22 07:39 06/28/22 07:20 Room Air 06/28/22 02:44 Room Air 06/27/22 23:25 Room Air 06/27/22 22:01 Laboratory Results Laboratory Tests 06/28/22 07:00 WBC 6.59 Hgb 10.4 L Hct 32.8 L Plt Count 198 PG Care Time/CCT Total # of Minutes Spent Total Time Spent with Patient: Total time spent is greater than 50% in coordination of care (as documented) at patient's floor/unit and/or counseling patient: Coding Level of Care Code 44475 Subseq Hosp Care Lvl 3 Diagnoses End-stage renal disease on hemodialysis N18.6; Z99.2 Anemia due to chronic kidney disease N18.5; D63.1 Chronic kidney disease stage: stage 5, not on chronic dialysis Hypertension I10 PAD (peripheral artery disease) I73.9 (1) Anemia due to chronic kidney disease Chronic kidney disease stage: stage 5, not on chronic dialysis Qualified Code(s): N18.5 - Chronic kidney disease, stage 5; D63.1 - Anemia in chronic kidney disease
[2022-06-28 08:53] LABS: BUN Creatinine Ratio 10.7 (10-20); Calcium 8.9 mg/dl (8.5-10.1); Creatinine Clr Calc Pharmacy 18.5 ml/min; Est GFR (African American) 10.7 ml/min; Est GFR (Non-African American) 9.2 ml/min; Potassium 4.7 mmol/L (3.5-5.1)
[2022-06-28] MEDS: HEPARIN SOD (PORCINE) 1000 UNIT/ML IV SCH (12:02)
--- NOTE | 2022-06-28 14:34 | Hospitalist Progress Note ---
Date of Service June 28, 2022 Assessment & Plan (1) PAD (peripheral artery disease): Plan: -Patient with a history of severe PAD - 4 years s/p left BKA. - Right lower extremity has several open circumferential wounds measuring several mm - several cm in diameter, dorsalis pedis and posterior tibialis pulses are not palpable, per review of wound care note from earlier last month this is not new. His pulses were weak but detectable with Doppler then. - He is not on any antiplatelets or statins. - Wound care consulted. -He had arterial duplex done at [facility] in [place] a couple of days ago, it shows evidence of severe PAD, however, will repeat Duplex here -Vascular on consult (2) Weakness: Plan: - Patient complains of Generalized weakness and 40 pound weight loss, has been an ongoing issue for 6 months, but has been acutely worse 3-4 days prior to presentation - He has elevated procal and several open wounds on right lower leg which may be infected. - No evidence of PNA on chest x ray, but some suggestion of congestion. - Suspect this is a chronic issue, possibly exacerbated by a wound infection as he has several open wounds on his right lower extremity. - Blood cultures collected, will also add on a wound collection from one of the open sores on his leg and treat empirically now with daptomycin. - Vascular surgery was also consulted as patient has extensive vascular disease, (3) Elevated troponin: Plan: - Troponin elevated to 49, this may be elevated in the setting of known CAD and ESRD. - We will trend troponin while admitted and obtain echo. -No chest pain (4) Coronary artery disease: Plan: - Per PCP note from April, patient denies history of this, no current medications. Cannot find any cardiology notes, he is declined echoes and referral to cardiology in the past. - Will have on a low-salt/DM diet while admitted. An echo has been ordered given elevated troponin. (5) Chronic diastolic congestive heart failure: Plan: - Patient denies history of this, however was at one point was on Lasix 80 mg on non-dialysis days but discontinued this on his own as he felt it was not helpful, her PCP note in April unwilling to resume that at this time. - CXR does suggest possible pulmonary edema, volume status is difficult to determine due to body habitus, however is without any right lower extremity edema. - BNP was not obtained on initial labs, will add this on or get with next troponin. - Echo ordered as above. - Low-salt diet. Strict I/Os. Daily weights. (6) End-stage renal disease on hemodialysis: Plan: - Nephrology on consult -Continue HD (7) Diabetes: Plan: - Type II diabetic, maintained only on Lantus 10 units which she takes around midnight. - Continue this, add on SSI. - Per PCP report last A1c was 5.4%, indicating great control of sugars. - DM2/low-salt diet. (8) Hypertension: Plan: - Controlled without medication, continue to monitor. -BP 138/78 today (9) Secondary hyperparathyroidism of renal origin: Plan: - Secondary to ESRD. (10) Anemia due to chronic kidney disease: Plan: - Hgb 11.2, in setting of CKD, is at patient's baseline. - Continue to monitor. Plan - continue mgt - SCDs, hepring for VTE ppx. - Full Code. Admission and Anticipated Discharge Date Admission Date: June 26, 2022 Subjective patient seen and examined today before HD, says no new complaints Review of Systems Review of Systems: All systems reviewed are negative, apart from the ones contained in the history. Physical Exam Physical Exam: The patient is awake, alert and oriented 3, well developed and well nourished, normocephalic and atraumatic, lying in bed and in no acute distress. HEENT--PERRL, EOMI, mucous membranes and oropharynx mildly dry Neck--supple. No JVD. No bruits. Thyroid normal, trachea midline, no adenopathy. Heart--normal S1 and S2. No murmurs, rubs or gallops. Lungs--clear bilaterally, no respiratory distress, no accessory muscle use. Abdomen--normal bowel sounds and soft. Mild epigastric and left sided abdominal pain Extremities--left above knee amputation, Dermatologic--normal skin turgor, normal color, no abnormal lymph nodes, no rash. Neurologic--cranial nerves II through XII grossly intact. Rheumatologic--normal range of motion. Psychiatric--normal affect. Results & Data Results & Data ([facility]) Vital Signs (Past 12 Hours) Vital Signs Temp Pulse Pulse Pulse Pulse Resp BP 06/28/22 13:00 78 138/78 06/28/22 12:30 75 146/83 H 06/28/22 12:00 76 131/79 06/28/22 11:30 77 136/84 06/28/22 11:00 79 120/81 06/28/22 10:30 78 136/83 06/28/22 08:35 06/28/22 10:00 75 117/74 06/28/22 09:30 77 150/96 H 06/28/22 09:00 80 159/80 H 06/28/22 08:55 97.9 F 80 06/28/22 07:39 83 06/28/22 07:20 96.3 F L 77 19 06/28/22 02:44 97.7 F 78 20 BP Pulse Ox O2 Del Method 06/28/22 13:00 06/28/22 12:30 06/28/22 12:00 06/28/22 11:30 06/28/22 11:00 06/28/22 10:30 06/28/22 08:35 Room Air 06/28/22 10:00 06/28/22 09:30 06/28/22 09:00 06/28/22 08:55 06/28/22 07:39 06/28/22 07:20 173/86 H 97 Room Air 06/28/22 02:44 179/61 H 98 Room Air PG Care Time/CCT Total # of Minutes Spent Total Time Spent with Patient: Total time spent is greater than 50% in coordination of care (as documented) at patient's floor/unit and/or counseling patient: Coding Level of Care Code 16188 Subseq Hosp Care Lvl 2 Diagnoses PAD (peripheral artery disease) I73.9 Weakness R53.1 Elevated troponin R77.8 Coronary artery disease I25.10 Chronic diastolic congestive heart failure I50.32 End-stage renal disease on hemodialysis N18.6; Z99.2 Diabetes E11.9 Hypertension I10 Secondary hyperparathyroidism of renal origin N25.81 Anemia due to chronic kidney disease N18.5; D63.1 Chronic kidney disease stage: stage 5, not on chronic dialysis Time Spent (min) 35 (1) Anemia due to chronic kidney disease Chronic kidney disease stage: stage 5, not on chronic dialysis Qualified Code(s): N18.5 - Chronic kidney disease, stage 5; D63.1 - Anemia in chronic kidney disease
--- NOTE | 2022-06-28 15:17 | Consultation ---
Date of Consultation June 28, 2022 Assessment & Plan (1) PAD (peripheral artery disease): Pt with moderate diffuse arterial disease by US. No focal lesions noted that would benefit from intervention. Pt maintains good doppler signals in foot, and there are no signs of ischemia. His leg lesions are not consistent with arterial disease. Recommend local wound care. Would consider calciphylaxis in differential for this patient d/t appearance of leg lesions in BLE. Do not recommend vascular surgical intervention at this time. Please call if needed. History of Present Illness Reason for Consultation: PAD, RLE wounds Attending Physician: Melodie Garcia MD History of Present Illness 62 yo m with multiple medical problems, including ESRD on HD, DMII, CAD, CHF, anasarca, HTN, anemia, and LLE BKA, admitted with generalized weakness, seen in consultation today for PAD of RLE. Pt states has had wounds to RLE for months, and has been seeing local wound care. Admits some pain in the wounds, as well as pruritis. States he has large open wounds of lower leg, but also has numerous other lesions on his legs, which he has had for many years. In addition to his RLE wounds, his LLE BKA stump also has a large blister and black wounds on it. Feels this is d/t the prosthesis attachment not fitting him properly since he lost a lot of weight recently. Does not ambulate far or fast enough to claudicate. Denies any wounds to his toes or rest pain at night. Admits generalized weakness and falls at home. Denies HERRERA, fever, chest pain, SOB, abd pain, N/V, other complaints. Arterial US from [facility] was reviewed by Dr Solomon. Demonstrates mild/moderate diffuse disease. Allergies Allergy/AdvReac Type Severity Reaction Status Date / Time doxycycline Allergy Unknown Rash Verified 06/26/22 17:29 cephalexin [From Keflex] AdvReac Intermediate ITCHING Verified 06/26/22 17:29 Home Medications Medication Instructions Recorded Confirmed Type insulin glargine 100 unit/mL (3 See Rx Instructions .Route .COMPLEX 05/15/22 06/26/22 History mL) subcutaneous pen (Basaglar KwikPen U-100 Insulin) Phosphate Binder 0 mg PO DIRECTED 06/26/22 06/26/22 History Patient History Medical History Acute blood loss anemia Acute kidney injury Amputated toe of left foot Amputated toe of right foot Anasarca Bilateral cellulitis of lower leg ESRD (end stage renal disease) on dialysis Gangrene Gangrene HTN (hypertension) Hyperparathyroidism due to end stage renal disease on dialysis Metabolic acidosis Nephrotic syndrome Obesity Osteomyelitis Proteinuria Surgical History History of angioplasty of peripheral vessel S/P arteriovenous (AV) fistula creation Status post incision and drainage left foot wound Family History Other Diabetes Family history non-contributory Hypertension Social History Smoking Status: Never smoker Second Hand Exposure: No; Hx Alcohol Use: Yes Hx Substance Use: No Preferred Language: Lao Communication Ability: Effective Visual Impairment: No Limitations Hearing Ability: Hard of Hearing Record Maker Required: No Beliefs That Will Affect Care: None marital status: Single Current Living Situation: Alone Feels Safe at Home: Yes caffeine: Yes during the past year weight has: remained stable Seatbelt Use: always Sunscreen Use: No Assistive Devices: Walker and Wheelchair Review of Systems Review of Systems: All systems reviewed & are unremarkable except as noted in HPI & below Physical Exam Constitutional: WD/WN, vitals as above + ill appearing (chronically) and + obese ENMT: Ears: no hearing impairment Neck: trachea midline Respiratory: normal respiratory effort, lungs clear to auscultation Auscultation: + diminished lung sounds Cardiovascular: Rate/Rhythm: regular rate and regular rhythm Vessels: posterior tibial pulses present (RLE good doppler signal), dorsalis pedis pulses present (RLE good doppler signal) and radial pulses present; + abnormal peripheral pulses Extremities: normal capillary refill (RLE great toe amp healed) and + AV fistula (L arm +thrill) Gastrointestinal (Abdomen): Inspection/Auscultation: abdomen normal to inspection and normal bowel sounds Percussion/Palpation: abdomen soft; abdomen nontender Musculoskeletal: no cyanosis or clubbing, extremities motor strength 5/5 Extremities: + amputation noted (LLE BKA, +blister, numerous punctate lesions to leg) Skin: + lesion (numerous punctate skin lesions BLE, some with eschar) and + ulcer (RLE deep ulcers) Neurologic: moves all extremities and awake; no focal motor deficits and not confused Psychiatric: A+Ox3, euthymic affect Results & Data ([facility]) Vital Signs (Past 12 Hours) Vital Signs Temp Pulse Pulse Pulse Resp BP BP 06/28/22 15:02 36.6 C 80 20 06/28/22 13:40 36.5 C 79 138/76 06/28/22 13:00 78 138/78 06/28/22 12:30 75 146/83 H 06/28/22 12:00 76 131/79 06/28/22 11:30 77 136/84 06/28/22 11:00 79 120/81 06/28/22 10:30 78 136/83 06/28/22 08:35 06/28/22 10:00 75 117/74 06/28/22 09:30 77 150/96 H 06/28/22 09:00 80 159/80 H 06/28/22 08:55 36.6 C 80 06/28/22 07:39 83 06/28/22 07:20 35.7 C L 77 19 173/86 H BP Pulse Ox O2 Del Method 06/28/22 15:02 155/92 H 100 Room Air 06/28/22 13:40 06/28/22 13:00 06/28/22 12:30 06/28/22 12:00 06/28/22 11:30 06/28/22 11:00 06/28/22 10:30 06/28/22 08:35 Room Air 06/28/22 10:00 06/28/22 09:30 06/28/22 09:00 06/28/22 08:55 06/28/22 07:39 06/28/22 07:20 97 Room Air
[2022-06-29] MEDS: HEPARIN SOD 5,000 UNIT/0.5 ML VIAL SQ SCH ×3 (05:02→20:26)
[2022-06-29 06:43] LABS: Hematocrit (blood only) 32.1 % (40.1-51.0); Hemoglobin 10.3 g/dl (14.0-18.0); Mean Corpuscular Hemoglobin 29.1 pg (25.0-34.0); Mean Corpuscular Hgb Conc 32.1 g/dL (32.0-36.0); Mean Corpuscular Volume 90.7 fL (80.0-100.0); Mean Platelet Volume 10.6 fL (9.4-12.4); Platelet Count 210 K/uL (130-400); RDW Coefficient of Variation 16.1 % (11.5-14.5); RDW Standard Deviation 52.2 fL (36.4-46.3); Red Blood Count 3.54 M/uL (4.63-6.08); White Blood Count 6.77 K/ul (4.8-10.8)
[2022-06-29 07:09] LABS: BUN Creatinine Ratio 10.6 (10-20); Calcium 8.6 mg/dl (8.5-10.1); Creatinine Clr Calc Pharmacy 26.2 ml/min; Est GFR (African American) 16.4 ml/min; Est GFR (Non-African American) 14.1 ml/min; Potassium 4.2 mmol/L (3.5-5.1)
[2022-06-29] MEDS: SEVELAMER HCL 800 MG TABLET PO SCH ×3 (08:02→16:59)
[2022-06-29] MEDS: INSULIN ASPART PER UNIT SC SCH ×4 (08:26→20:26)
[2022-06-29] MEDS: LANTUS PER UNIT CHARGE SQ SCH ×2 (08:27→20:26)
[2022-06-29] MEDS ORDERED: hydrALAZINE HCL 20 MG/ML VIAL IV ONE (08:36)
--- NOTE | 2022-06-29 12:57 | Nephrology Progress Note ---
Date of Service June 29, 2022 Assessment & Plan (1) End-stage renal disease on hemodialysis: (2) PAD (peripheral artery disease): (3) Weakness: (4) Open leg wound: (5) Secondary hyperparathyroidism of renal origin: (6) Anemia due to chronic kidney disease: Plan ESRD on HD due to DKD, hypertensive nephrosclerosis and underlying vascular disease, on HD TTS at [facility] (4.5hr, 2K 2.5Ca Na 137, HCO3 38, F-250 NR, 14 g needles, Qb500 Qd 800, EDW 130.5 Kg, heparin 3000 unit bolus + 2500 units q1 hr, L forearm AVF, mircera 50 mcg q4wk - last dose 06/14).Admitted with Generalized weakness, repeated falls at home and lower extremity multiple nonhealing ischemic ulcer both in right lower extremity as well as seen left BKA stump. Has been following with Wound Care. Evaluated by vascular surgery, had Doppler showing recent blood flow to right lower extremity. Blood pressure has been elevated, electrolyte acceptable, had dialysis yesterday. --Will consult vascular surgery for biopsy to evaluate for possibility for calciphylaxis. -- follow low phosphorus diet, continue on phosphate binder with meal -- start on amlodipine 5 mg daily, give after dialysis on dialysis days. -- Dose medications for eGFR less than 10, left arm nephrology precaution -- continue on Epogen for hemoglobin less than 10, renal vitamin once a day. Will follow. Admission and Anticipated Discharge Date Admission Date: June 26, 2022 Joseline Esteves was seen and evaluated this morning. overall he feels slightly better, denies shortness of breath or chest pain but he is slightly volume overloaded as he had only 3 L UF yesterday. Blood pressure remains elevated. Electrolyte acceptable. Review of Systems Review of Systems: Detailed review of system was otherwise unremarkable. Physical Exam Constitutional: WD/WN, vitals as above + ill appearing; no acute distress Eyes: + anicteric sclerae ENMT: Ears: no hearing impairment Respiratory: Auscultation: lungs clear to auscultation bilaterally Cardiovascular: Rate/Rhythm: regular rate and regular rhythm Heart Sounds: normal S1 and normal S2 Extremities: + edema and + AV fistula (with + thrill and Bruit) Musculoskeletal: left BKA, stump with ulcer, erythema, blister. Skin: + lesion, + ulcer, + skin atrophy and + erythema Neurologic: no focal motor deficits Psychiatric: Orientation: alert and oriented x 3 Results & Data ([facility]) Vital Signs (Past 12 Hours) Vital Signs Temp Pulse Pulse Resp BP Pulse Ox O2 Del Method 06/29/22 11:13 36.6 C 77 18 99 Room Air 06/29/22 11:06 161/92 H 06/29/22 09:56 Room Air 06/29/22 07:30 36.4 C L 76 18 187/91 H 99 Room Air 06/29/22 07:28 73 06/29/22 03:33 78 20 173/108 H 97 Room Air PG Care Time/CCT Total # of Minutes Spent Total Time Spent with Patient: Total time spent is greater than 50% in coordination of care (as documented) at patient's floor/unit and/or counseling patient: Coding Level of Care Code 59793 Subseq Hosp Care Lvl 3 Diagnoses End-stage renal disease on hemodialysis N18.6; Z99.2 PAD (peripheral artery disease) I73.9 Weakness R53.1 Open leg wound S81.809A Secondary hyperparathyroidism of renal origin N25.81 Anemia due to chronic kidney disease N18.5; D63.1 Chronic kidney disease stage: stage 5, not on chronic dialysis (1) Anemia due to chronic kidney disease Chronic kidney disease stage: stage 5, not on chronic dialysis Qualified Code(s): N18.5 - Chronic kidney disease, stage 5; D63.1 - Anemia in chronic kidney disease
[2022-06-29] MEDS: amLODIPine BESYLATE 5 MG TAB PO SCH (13:57)
[2022-06-29] MEDS: DAPTOmycin 400 MG in SYRINGE 0 ML IV SCH (14:01)
--- NOTE | 2022-06-29 17:19 | Hospitalist Progress Note ---
Date of Service June 29, 2022 Assessment & Plan (1) PAD (peripheral artery disease): Plan: -Patient with a history of severe PAD - 4 years s/p left BKA. - Right lower extremity has several open circumferential wounds measuring several mm - several cm in diameter, dorsalis pedis and posterior tibialis pulses are not palpable, per review of wound care note from earlier last month this is not new. His pulses were weak but detectable with Doppler then. - He is not on any antiplatelets or statins. - Wound care consulted, appreciate recs -He had arterial duplex done at [facility] in [place] a couple of days ago, it shows evidence of severe PAD -Vascular on consult, no plans for revascularization (2) Weakness: Plan: - Patient complains of Generalized weakness and 40 pound weight loss, has been an ongoing issue for 6 months, but has been acutely worse 3-4 days prior to presentation - He has elevated procal and several open wounds on right lower leg which may be infected. - No evidence of PNA on chest x ray, but some suggestion of congestion. - Suspect this is a chronic issue, possibly exacerbated by a wound infection as he has several open wounds on his right lower extremity. - Blood cultures collected, will also add on a wound collection from one of the open sores on his leg and treat empirically now with daptomycin. - Vascular surgery was also consulted as patient has extensive vascular disease, but no plans for surgery (3) Calciphylaxis cutis: Plan: possibly the cause of his non healing ulcers and leg lesions For skin biopsy (4) Elevated troponin: Plan: - Troponin elevated in the setting of known CAD and ESRD. - We will trend troponin while admitted and obtain echo. -No chest pain (5) Coronary artery disease: Plan: - Per PCP note from April, patient denies history of this, no current medications. Cannot find any cardiology notes, he is declined echoes and referral to cardiology in the past. - Will have on a low-salt/DM diet while admitted. An echo has been ordered given elevated troponin. (6) Chronic diastolic congestive heart failure: Plan: - Patient denies history of this, however was at one point was on Lasix 80 mg on non-dialysis days but discontinued this on his own as he felt it was not helpful, her PCP note in April unwilling to resume that at this time. - CXR does suggest possible pulmonary edema, volume status is difficult to determine due to body habitus, however is without any right lower extremity edema. - BNP was not obtained on initial labs, will add this on or get with next troponin. - Echo ordered as above. - Low-salt diet. Strict I/Os. Daily weights. (7) End-stage renal disease on hemodialysis: Plan: - Nephrology on consult -Continue HD (8) Diabetes: Plan: - Type II diabetic, maintained only on Lantus 10 units which she takes around midnight. - Continue this, add on SSI. - Per PCP report last A1c was 5.4%, indicating great control of sugars. - DM2/low-salt diet. (9) Hypertension: Plan: -BP 160/85 -Started on Amlodipine (10) Secondary hyperparathyroidism of renal origin: Plan: - Secondary to ESRD. (11) Anemia due to chronic kidney disease: Plan: - Hgb 11.2, in setting of CKD, is at patient's baseline. - Continue to monitor. Plan - continue mgt - SCDs, hepring for VTE ppx. - Full Code. Admission and Anticipated Discharge Date Admission Date: June 26, 2022 Subjective patient seen and examined, no new complaints, still weak Review of Systems Review of Systems: All systems reviewed are negative, apart from the ones contained in the history. Physical Exam Physical Exam: The patient is awake, alert and oriented 3, well developed and well nourished, normocephalic and atraumatic, lying in bed and in no acute distress. HEENT--PERRL, EOMI, mucous membranes and oropharynx mildly dry Neck--supple. No JVD. No bruits. Thyroid normal, trachea midline, no adenopathy. Heart--normal S1 and S2. No murmurs, rubs or gallops. Lungs--clear bilaterally, no respiratory distress, no accessory muscle use. Abdomen--normal bowel sounds and soft. Mild epigastric and left sided abdominal pain Extremities--left above knee amputation, Dermatologic--normal skin turgor, normal color, no abnormal lymph nodes, no rash. Neurologic--cranial nerves II through XII grossly intact. Rheumatologic--normal range of motion. Psychiatric--normal affect. Results & Data Results & Data ([facility]) Vital Signs (Past 12 Hours) Vital Signs Temp Pulse Pulse Resp BP Pulse Ox O2 Del Method 06/29/22 15:48 79 06/29/22 15:06 97.9 F 88 18 160/85 H 98 Room Air 06/29/22 11:13 97.9 F 77 18 99 Room Air 06/29/22 11:06 161/92 H 06/29/22 09:56 Room Air 06/29/22 07:30 97.5 F L 76 18 187/91 H 99 Room Air 06/29/22 07:28 73 PG Care Time/CCT Total # of Minutes Spent Total Time Spent with Patient: Total time spent is greater than 50% in coordination of care (as documented) at patient's floor/unit and/or counseling patient: Coding Level of Care Code 53202 Subseq Hosp Care Lvl 2 Diagnoses PAD (peripheral artery disease) I73.9 Weakness R53.1 Calciphylaxis cutis E83.59 Elevated troponin R77.8 Coronary artery disease I25.10 Chronic diastolic congestive heart failure I50.32 End-stage renal disease on hemodialysis N18.6; Z99.2 Diabetes E11.9 Hypertension I10 Secondary hyperparathyroidism of renal origin N25.81 Anemia due to chronic kidney disease N18.5; D63.1 Chronic kidney disease stage: stage 5, not on chronic dialysis Time Spent (min) 35 (1) Anemia due to chronic kidney disease Chronic kidney disease stage: stage 5, not on chronic dialysis Qualified Code(s): N18.5 - Chronic kidney disease, stage 5; D63.1 - Anemia in chronic kidney disease
[2022-06-29] MEDS ORDERED: hydrOXYzine HCl 25 MG TAB PO ONE (20:20)
--- NOTE | 2022-06-29 21:03 | Surgery Consultation ---
Date of Consultation June 29, 2022 Assessment & Plan (1) Calciphylaxis cutis: General surgery has been asked to evaluate the patient for possible biopsy. I discussed with my attending physician Dr. Maza and we will determine if/when this procedure can be performed. Scheduling this procedure will have to be coordinated around patient's dialysis schedule. Supervising Physician Co-Signing Physician Notes Patient seen and examined, labs and imaging reviewed, agree with above. We are asked to see this patient to do a biopsy for calciphylaxis of his wounds. We will likely be able to do this at the bedside, however we need to confirm with pathology how the tissue should be prepared and sent. We will follow-up with the patient tomorrow. History of Present Illness Reason for Consultation: Lower extremity ulcerations, evaluate for biopsy Attending Physician: Melodie Garcia MD History of Present Illness This is a 62-year-old male with a history of end-stage renal disease on dialysis. The patient also suffers from other medical comorbidities including diabetes and coronary artery disease. Patient was admitted to the hospital on 06/26/2022 secondary to a decline in his overall health over the past 6 months. Patient notes that he had a fairly rapid decline with the ability to ambulate along with decreased appetite and a 40 pound weight loss. Patient noted that just prior to hospitalization approximately 3 to 4 days he was profoundly weak and was having care a great deal of difficulty even standing. The patient has since been admitted to the hospital for further evaluation. As noted the patient has end-stage renal disease and he has dialysis as an outpatient on Tuesdays, , and Saturdays. He does note that he was told his next dialysis session while in the hospital would be this coming Friday. The patient notes that he has multiple lower extremity ulcerations on the left lower extremity where he had a below-knee amputation. He says that these ulcerations have been present for approximately 3 to 4 months and are in varying stages. He notes that they were exacerbated by wearing a lower extremity prosthetic as he felt that the prosthetic kept some of the lesions moist. He notes that since being in the hospital he has not been wearing his prosthetic as much and some of the ulcerations have been healing. He denies any fevers, shakes, or chills. Because of these ulcerations there is concern for calci phylaxis and nephrology is consulted general surgery for consideration of a biopsy of 1 of these lesions. The patient's most recent labs were from today revealing a white blood cell count platelet count within normal range. Hemoglobin and hematocrit were 10.3 and 32.1. Chemistry profile showed sodium was 134 with a normal potassium. BUN and creatinine were 45 and 4.26. The patient did have a COVID test on 06/26/2022 which was negative. The only imaging patient has had since this hospitalization was a chest x-ray that showed interstitial vascular thickening with bilateral airspace opacities concerning for either pulmonary edema or atypical pneumonia. At the time of my interview the patient was resting comfortably in bed he was in no distress. Allergies Allergy/AdvReac Type Severity Reaction Status Date / Time doxycycline Allergy Unknown Rash Verified 06/26/22 17:29 cephalexin [From Keflex] AdvReac Intermediate ITCHING Verified 06/26/22 17:29 Home Medications Medication Instructions Recorded Confirmed Type insulin glargine 100 unit/mL (3 See Rx Instructions .Route .COMPLEX 05/15/22 06/26/22 History mL) subcutaneous pen (Basaglar KwikPen U-100 Insulin) Phosphate Binder 0 mg PO DIRECTED 06/26/22 06/26/22 History Patient History Medical History Acute blood loss anemia Acute kidney injury Amputated toe of left foot Amputated toe of right foot Anasarca Bilateral cellulitis of lower leg ESRD (end stage renal disease) on dialysis Gangrene Gangrene HTN (hypertension) Hyperparathyroidism due to end stage renal disease on dialysis Metabolic acidosis Nephrotic syndrome Obesity Osteomyelitis Proteinuria Surgical History History of angioplasty of peripheral vessel S/P arteriovenous (AV) fistula creation Status post incision and drainage left foot wound Family History Other Diabetes Family history non-contributory Hypertension Social History Smoking Status: Never smoker Second Hand Exposure: No; Hx Alcohol Use: Yes Hx Substance Use: No Preferred Language: [place]an Communication Ability: Effective Visual Impairment: No Limitations Hearing Ability: Hard of Hearing Card Placer Required: No Beliefs That Will Affect Care: None marital status: Single Current Living Situation: Alone Feels Safe at Home: Yes caffeine: Yes during the past year weight has: remained stable Seatbelt Use: always Sunscreen Use: No Assistive Devices: Walker and Wheelchair Review of Systems Constitutional: no fever and no chills Eyes: no eye pain Ear, Nose, Mouth, Throat: no ear pain Respiratory: no cough and no dyspnea Cardiovascular: no chest pain Gastrointestinal: no abdominal pain, no nausea and no vomiting Genitourinary: + as per Subjective / HPI Musculoskeletal: no back pain Integumentary: + lesions Neurologic: + generalized weakness Physical Exam Constitutional: well developed and well nourished; no acute distress Eyes: no conjunctival abnormality ENMT: Ears: no hearing impairment and no external ear abnormality Mouth: no oropharynx abnormality Neck: trachea midline Respiratory: normal respiratory effort; no respiratory distress and no labored breathing Cardiovascular: Rate/Rhythm: regular rate and regular rhythm Gastrointestinal (Abdomen): Soft and nondistended. Nonpainful. Musculoskeletal: Patient had a left below-knee amputation with a well-healed stump. Patient had a fistula in his left upper extremity. Skin: The patient had multiple ulcerations noted on the left lower extremity that near the site of his below-knee amputation. He had several lesions on the stump itself and also some extending several inches up his extremity. There is no purulent drainage noted on any of these. He did have 1 area with a with a blister. There is no crepitus noted in the soft tissue. Neurologic: moves all extremities Results & Data ([facility]) Vital Signs (Past 12 Hours) Vital Signs Temp Pulse Pulse Pulse Resp BP Pulse Ox 06/29/22 19:54 36.4 C L 86 20 162/103 H 96 06/29/22 16:00 06/29/22 15:48 79 06/29/22 15:06 36.6 C 88 18 160/85 H 98 06/29/22 11:13 36.6 C 77 18 99 06/29/22 11:06 161/92 H 06/29/22 09:56 Pulse Ox O2 Del Method O2 Del Method 06/29/22 19:54 Room Air 06/29/22 16:00 95 Room Air 06/29/22 15:48 06/29/22 15:06 Room Air 06/29/22 11:13 Room Air 06/29/22 11:06 06/29/22 09:56 Room Air PG Care Time/CCT Total # of Minutes Spent Total Time Spent with Patient: Total time spent is greater than 50% in coordination of care (as documented) at patient's floor/unit and/or counseling patient: Coding Level of Care Code 90626 Inpt Consult Level 5 Diagnoses Calciphylaxis cutis E83.59
[2022-06-30] MEDS: hydrALAZINE HCL 20 MG/ML VIAL IV PRN ×2 (00:26→23:06)
[2022-06-30] MEDS ORDERED: hydrALAZINE HCL 20 MG/ML VIAL IV ONE (03:40)
[2022-06-30] MEDS: HEPARIN SOD 5,000 UNIT/0.5 ML VIAL SQ SCH ×3 (05:17→21:15)
[2022-06-30 07:50] LABS: Hematocrit (blood only) 31.3 % (40.1-51.0); Hemoglobin 10.3 g/dl (14.0-18.0); Mean Corpuscular Hemoglobin 29.3 pg (25.0-34.0); Mean Corpuscular Hgb Conc 32.9 g/dL (32.0-36.0); Mean Corpuscular Volume 88.9 fL (80.0-100.0); Mean Platelet Volume 10.9 fL (9.4-12.4); Platelet Count 211 K/uL (130-400); RDW Coefficient of Variation 16.2 % (11.5-14.5); Red Blood Count 3.52 M/uL (4.63-6.08); White Blood Count 7.89 K/ul (4.8-10.8)
[2022-06-30 08:31] LABS: BUN Creatinine Ratio 13.1 (10-20); Calcium 8.7 mg/dl (8.5-10.1); Creatinine Clr Calc Pharmacy 19.8 ml/min; Est GFR (African American) 11.5 ml/min; Est GFR (Non-African American) 9.9 ml/min; Potassium 4.9 mmol/L (3.5-5.1)
[2022-06-30] MEDS: SEVELAMER HCL 800 MG TABLET PO SCH ×3 (08:34→17:00)
[2022-06-30] MEDS: amLODIPine BESYLATE 5 MG TAB PO SCH (08:35)
[2022-06-30] MEDS ORDERED: IBUPROFEN 200 MG TAB PO STA (09:06)
[2022-06-30] MEDS: INSULIN ASPART PER UNIT SC SCH ×4 (09:26→21:15)
[2022-06-30] MEDS: LANTUS PER UNIT CHARGE SQ SCH ×2 (09:27→21:14)
--- NOTE | 2022-06-30 11:19 | Nephrology Progress Note ---
Date of Service June 30, 2022 Assessment & Plan (1) End-stage renal disease on hemodialysis: (2) PAD (peripheral artery disease): (3) Weakness: (4) Open leg wound: (5) Secondary hyperparathyroidism of renal origin: (6) Anemia due to chronic kidney disease: Plan ESRD on HD due to DKD, hypertensive nephrosclerosis and underlying vascular disease, on HD TTS at [facility] (4.5hr, 2K 2.5Ca Na 137, HCO3 38, F-250 NR, 14 g needles, Qb500 Qd 800, EDW 130.5 Kg, heparin 3000 unit bolus + 2500 units q1 hr, L forearm AVF, mircera 50 mcg q4wk - last dose 06/14).Admitted with Generalized weakness, repeated falls at home and lower extremity multiple nonhealing ischemic ulcer both in right lower extremity as well as seen left BKA stump. Has been following with Wound Care. Evaluated by vascular surgery, had Doppler showing recent blood flow to right lower extremity. Blood pressure has been elevated, electrolyte acceptable, had dialysis yesterday. -- waiting on skin biopsy --OK to use Ibuprofen prn for hip pain -- follow low phosphorus diet, continue on phosphate binder with meal -- continue on amlodipine 5 mg daily, give after dialysis on dialysis days. -- Dose medications for eGFR less than 10, left arm nephrology precaution -- continue on Epogen for hemoglobin less than 10, renal vitamin once a day. Will follow. Admission and Anticipated Discharge Date Admission Date: June 26, 2022 Joseline Esteves was seen and evaluated this morning. He denies shortness of breath or chest pain but has been bothered by hip pain. Blood pressure remains slightly improved. Electrolyte acceptable. Review of Systems Review of Systems: Detailed review of system was otherwise unremarkable. Physical Exam Constitutional: WD/WN, vitals as above + ill appearing; no acute distress Eyes: + anicteric sclerae ENMT: Ears: no hearing impairment Respiratory: Auscultation: lungs clear to auscultation bilaterally Cardiovascular: Rate/Rhythm: regular rate and regular rhythm Heart Sounds: normal S1 and normal S2 Extremities: + edema and + AV fistula (with + thrill and Bruit) Skin: + lesion, + ulcer, + skin atrophy and + erythema Neurologic: no focal motor deficits Psychiatric: Orientation: alert and oriented x 3 Results & Data ([facility]) Vital Signs (Past 12 Hours) Vital Signs Temp Pulse Pulse Pulse Resp BP Pulse Ox 06/30/22 10:36 06/30/22 07:33 36.6 C 79 18 156/110 H 95 06/30/22 07:05 85 06/30/22 04:35 36.5 C 84 20 185/127 H 97 06/30/22 00:11 36.3 C L 82 20 175/79 H 97 06/30/22 00:06 77 06/29/22 23:31 O2 Del Method 06/30/22 10:36 Room Air 06/30/22 07:33 Room Air 06/30/22 07:05 06/30/22 04:35 Room Air 06/30/22 00:11 Room Air 06/30/22 00:06 06/29/22 23:31 Room Air PG Care Time/CCT Total # of Minutes Spent Total Time Spent with Patient: Total time spent is greater than 50% in coordination of care (as documented) at patient's floor/unit and/or counseling patient: Coding Level of Care Code 05357 Subseq Hosp Care Lvl 3 Diagnoses End-stage renal disease on hemodialysis N18.6; Z99.2 PAD (peripheral artery disease) I73.9 Weakness R53.1 Open leg wound S81.809A Secondary hyperparathyroidism of renal origin N25.81 Anemia due to chronic kidney disease N18.5; D63.1 Chronic kidney disease stage: stage 5, not on chronic dialysis (1) Anemia due to chronic kidney disease Chronic kidney disease stage: stage 5, not on chronic dialysis Qualified Code(s): N18.5 - Chronic kidney disease, stage 5; D63.1 - Anemia in chronic kidney disease
--- NOTE | 2022-06-30 14:04 | Hospitalist Progress Note ---
Date of Service June 30, 2022 Assessment & Plan (1) PAD (peripheral artery disease): Plan: -Patient with a history of severe PAD - 4 years s/p left BKA. - Right lower extremity has several open circumferential wounds measuring several mm - several cm in diameter, dorsalis pedis and posterior tibialis pulses are not palpable, per review of wound care note from earlier last month this is not new. His pulses were weak but detectable with Doppler then. - He is not on any antiplatelets or statins. - Wound care consulted, appreciate recs -He had arterial duplex done at [facility] in [place] a couple of days ago, it shows evidence of severe PAD -Vascular on consult, no plans for revascularization (2) Calciphylaxis cutis: Plan: possibly the cause of his non healing ulcers and leg lesions For skin biopsy tomorrow (3) Weakness: Plan: - Patient complains of Generalized weakness and 40 pound weight loss, has been an ongoing issue for 6 months, but has been acutely worse 3-4 days prior to presentation - He has elevated procal and several open wounds on right lower leg which may be infected. - No evidence of PNA on chest x ray, but some suggestion of congestion. - Suspect this is a chronic issue, possibly exacerbated by a wound infection as he has several open wounds on his right lower extremity. - Blood cultures collected, will also add on a wound collection from one of the open sores on his leg and treat empirically now with IV Daptomycin. - Vascular surgery was also consulted as patient has extensive vascular disease, but no plans for surgery per vascular (4) Elevated troponin: Plan: - Troponin elevated in the setting of known CAD and ESRD. - We will trend troponin while admitted and obtain echo. -No chest pain (5) Coronary artery disease: Plan: - Per PCP note from April, patient denies history of this, no current medications. Cannot find any cardiology notes, he is declined echoes and referral to cardiology in the past. - Will have on a low-salt/DM diet while admitted. An echo has been ordered given elevated troponin. (6) Chronic diastolic congestive heart failure: Plan: - Patient denies history of this, however was at one point was on Lasix 80 mg on non-dialysis days but discontinued this on his own as he felt it was not helpful, her PCP note in April unwilling to resume that at this time. - CXR does suggest possible pulmonary edema, volume status is difficult to determine due to body habitus, however is without any right lower extremity edema. - Echo showed EF35-40%. EF, with global hypokinesis - Low-salt diet. Strict I/Os. Daily weights. -Continue hemodialysis (7) End-stage renal disease on hemodialysis: Plan: - Nephrology on consult -Continue HD (8) Diabetes: Plan: - Type II diabetic, maintained only on Lantus 10 units which she takes around midnight. - Continue this, add on SSI. - Per PCP report last A1c was 5.4%, indicating great control of sugars. - DM2/low-salt diet. (9) Hypertension: Plan: -BP 148/76 -Started on Amlodipine (10) Secondary hyperparathyroidism of renal origin: Plan: - Secondary to ESRD. (11) Anemia due to chronic kidney disease: Plan: - Hgb 11.2, in setting of CKD, is at patient's baseline. - Continue to monitor. Plan - continue mgt - SCDs, hepring for VTE ppx. - Full Code. Admission and Anticipated Discharge Date Admission Date: June 26, 2022 Subjective patient seen and examined,awaiting biopsy tomorrow Review of Systems Review of Systems: All systems reviewed are negative, apart from the ones contained in the history. Physical Exam Physical Exam: The patient is awake, alert and oriented 3, well developed and well nourished, normocephalic and atraumatic, lying in bed and in no acute distress. HEENT--PERRL, EOMI, mucous membranes and oropharynx mildly dry Neck--supple. No JVD. No bruits. Thyroid normal, trachea midline, no adenopathy. Heart--normal S1 and S2. No murmurs, rubs or gallops. Lungs--clear bilaterally, no respiratory distress, no accessory muscle use. Abdomen--normal bowel sounds and soft. Mild epigastric and left sided abdominal pain Extremities--left above knee amputation, Dermatologic--normal skin turgor, normal color, no abnormal lymph nodes, no rash. Neurologic--cranial nerves II through XII grossly intact. Rheumatologic--normal range of motion. Psychiatric--normal affect. Results & Data Results & Data ([facility]) Vital Signs (Past 12 Hours) Vital Signs Temp Pulse Pulse Pulse Resp BP Pulse Ox 06/30/22 09:31 85 142/80 H 06/30/22 11:48 98.1 F 79 18 148/76 H 98 06/30/22 10:36 06/30/22 07:33 97.9 F 79 18 156/110 H 95 06/30/22 07:05 85 06/30/22 04:35 97.7 F 84 20 185/127 H 97 O2 Del Method 06/30/22 09:31 06/30/22 11:48 Room Air 06/30/22 10:36 Room Air 06/30/22 07:33 Room Air 06/30/22 07:05 06/30/22 04:35 Room Air PG Care Time/CCT Total # of Minutes Spent Total Time Spent with Patient: Total time spent is greater than 50% in coordination of care (as documented) at patient's floor/unit and/or counseling patient: Coding Level of Care Code 63629 Subseq Hosp Care Lvl 2 Diagnoses PAD (peripheral artery disease) I73.9 Calciphylaxis cutis E83.59 Weakness R53.1 Elevated troponin R77.8 Coronary artery disease I25.10 Chronic diastolic congestive heart failure I50.32 End-stage renal disease on hemodialysis N18.6; Z99.2 Diabetes E11.9 Hypertension I10 Secondary hyperparathyroidism of renal origin N25.81 Anemia due to chronic kidney disease N18.5; D63.1 Chronic kidney disease stage: stage 5, not on chronic dialysis Time Spent (min) 35 (1) Anemia due to chronic kidney disease Chronic kidney disease stage: stage 5, not on chronic dialysis Qualified Code(s): N18.5 - Chronic kidney disease, stage 5; D63.1 - Anemia in chronic kidney disease
[2022-06-30] MEDS: IBUPROFEN 200 MG TAB PO PRN (17:29)
[2022-06-30] MEDS ORDERED: traZODone HCL 50 MG TAB PO ONE (21:30)
[2022-06-30] MEDS: DOCUSATE SODIUM 100 MG CAP PO SCH (21:39)
[2022-06-30 23:23] LABS: Appearance Urine Clear (Clear); Bacteria Urine Automated Negative (Negative); Bilirubin Urine Negative (Negative); Blood Urine 2+ (Negative); Color Urine Yellow; Glucose Urine UA Trace (Negative); Ketones Urine Negative (Negative); Leukocyte Esterase Urine Negative (Negative); Nitrite Urine Negative (Negative); Specific Gravity Urine 1.011 (1.000-1.030); Urobilinogen Urine Negative (Negative); pH Urine 8.5 (4.5-7.5)
[2022-06-30 23:24] LABS: Protein Urine 2+ (Negative)
[2022-07-01] MEDS ORDERED: MoRPHine SULFATE 2 MG/ML CARP IV STA (00:59)
[2022-07-01] MEDS ORDERED: HYDROmorphone INJ 0.5 MG/0.5 ML SYR IV STA (01:16)
[2022-07-01] MEDS: IBUPROFEN 200 MG TAB PO PRN (04:30)
[2022-07-01] MEDS: HEPARIN SOD 5,000 UNIT/0.5 ML VIAL SQ SCH ×4 (05:15→21:30)
[2022-07-01] MEDS ORDERED: EPOETIN ALFA 10,000 UNITS/ML VIAL IV ONE (08:25)
[2022-07-01] MEDS: INSULIN ASPART PER UNIT SC SCH ×4 (08:39→21:07)
[2022-07-01] MEDS: LANTUS PER UNIT CHARGE SQ SCH ×2 (09:10→21:07)
[2022-07-01 09:24] LABS: Hematocrit (blood only) 31.2 % (40.1-51.0); Hemoglobin 10.5 g/dl (14.0-18.0); Mean Corpuscular Hemoglobin 29.1 pg (25.0-34.0); Mean Corpuscular Hgb Conc 33.7 g/dL (32.0-36.0); Mean Corpuscular Volume 86.4 fL (80.0-100.0); Mean Platelet Volume 11.3 fL (9.4-12.4); Platelet Count 219 K/uL (130-400); RDW Coefficient of Variation 16.5 % (11.5-14.5); RDW Standard Deviation 50.9 fL (36.4-46.3); Red Blood Count 3.61 M/uL (4.63-6.08); White Blood Count 8.23 K/ul (4.8-10.8)
[2022-07-01] MEDS: SEVELAMER HCL 800 MG TABLET PO SCH ×3 (09:46→16:52)
[2022-07-01 09:55] LABS: BUN Creatinine Ratio 12.3 (10-20); Calcium 8.8 mg/dl (8.5-10.1); Creatinine Clr Calc Pharmacy 14.6 ml/min; Est GFR (African American) 7.9 ml/min; Est GFR (Non-African American) 6.8 ml/min; Potassium 5.3 mmol/L (3.5-5.1)
--- NOTE | 2022-07-01 10:04 | Nephrology Progress Note ---
Date of Service July 01, 2022 Assessment & Plan (1) End-stage renal disease on hemodialysis: (2) PAD (peripheral artery disease): (3) Weakness: (4) Open leg wound: (5) Secondary hyperparathyroidism of renal origin: (6) Anemia due to chronic kidney disease: Plan ESRD on HD due to DKD, hypertensive nephrosclerosis and underlying vascular disease, on HD TTS at [facility] (4.5hr, 2K 2.5Ca Na 137, HCO3 38, F-250 NR, 14 g needles, Qb500 Qd 800, EDW 130.5 Kg, heparin 3000 unit bolus + 2500 units q1 hr, L forearm AVF, mircera 50 mcg q4wk - last dose 06/14).Admitted with Generalized weakness, repeated falls at home and lower extremity multiple nonhealing ischemic ulcer both in right lower extremity as well as seen left BKA stump. Has been following with Wound Care. Evaluated by vascular surgery, had Doppler showing recent blood flow to right lower extremity. Blood pressure has been elevated, electrolyte acceptable, had dialysis yesterday. -- tolerating HD, aim for 5 L UF to EDW of 130 kg. -- follow low phosphorus diet, continue on phosphate binder with meal -- continue on amlodipine 5 mg daily, give after dialysis on dialysis days. -- Dose medications for eGFR less than 10, left arm nephrology precaution -- Epogen 80288 units today, renal vitamin once a day. Will follow. Admission and Anticipated Discharge Date Admission Date: June 26, 2022 Subjective Danielito was seen and evaluated during HD this morning. He denies shortness of breath or chest pain but continues to be bothered by hip pain. Blood pressure slightly improved. Electrolyte acceptable. Tolerating HD. Review of Systems Review of Systems: Detailed review of system was otherwise unremarkable. Physical Exam Constitutional: WD/WN, vitals as above + ill appearing; no acute distress Eyes: + anicteric sclerae ENMT: Ears: no hearing impairment Respiratory: Auscultation: lungs clear to auscultation bilaterally Cardiovascular: Rate/Rhythm: regular rate and regular rhythm Heart Sounds: normal S1 and normal S2 Extremities: + edema and + AV fistula (with + thrill and Bruit) Skin: + lesion, + ulcer, + skin atrophy and + erythema Neurologic: no focal motor deficits Psychiatric: Orientation: alert and oriented x 3 Results & Data ([facility]) Vital Signs (Past 12 Hours) Vital Signs Temp Pulse Pulse Pulse Resp BP BP 07/01/22 09:30 49 L 156/84 H 07/01/22 09:11 48 L 168/92 H 07/01/22 08:58 36.4 C L 62 07/01/22 08:08 36.3 C L 46 L 18 181/60 H 07/01/22 07:27 73 06/30/22 22:56 81 20 185/87 H 06/30/22 23:35 77 Pulse Ox O2 Del Method 07/01/22 09:30 07/01/22 09:11 07/01/22 08:58 07/01/22 08:08 98 Room Air 07/01/22 07:27 06/30/22 22:56 97 Room Air 06/30/22 23:35 PG Care Time/CCT Total # of Minutes Spent Total Time Spent with Patient: Total time spent is greater than 50% in coordination of care (as documented) at patient's floor/unit and/or counseling patient: Coding Level of Care Code 92898 Subseq Hosp Care Lvl 3 Diagnoses End-stage renal disease on hemodialysis N18.6; Z99.2 PAD (peripheral artery disease) I73.9 Weakness R53.1 Open leg wound S81.809A Secondary hyperparathyroidism of renal origin N25.81 Anemia due to chronic kidney disease N18.5; D63.1 Chronic kidney disease stage: stage 5, not on chronic dialysis (1) Anemia due to chronic kidney disease Chronic kidney disease stage: stage 5, not on chronic dialysis Qualified Code(s): N18.5 - Chronic kidney disease, stage 5; D63.1 - Anemia in chronic kidney disease
[2022-07-01] MEDS: DOCUSATE SODIUM 100 MG CAP PO SCH ×2 (14:24→21:27)
[2022-07-01] MEDS: amLODIPine BESYLATE 5 MG TAB PO SCH (14:26)
[2022-07-01] MEDS: ACETAMINOPHEN 325 MG TAB PO PRN (14:29)
[2022-07-01] MEDS: DAPTOmycin 400 MG in SYRINGE 0 ML IV SCH (14:35)
[2022-07-01] MEDS ORDERED: LIDOCAINE 1%/EPINEPHRINE 1:100,000 50 ML VIAL INFIL ONE (14:58)
--- NOTE | 2022-07-01 15:54 | Surgery Progress Note ---
Date of Service July 01, 2022 Assessment & Plan (1) Calciphylaxis cutis: Plan: 62-year-old male with end-stage renal disease and multiple wounds on bilateral lower extremities, concern for calciphylaxis per nephrology. Punch biopsies were obtained from multiple wound sites and sent to pathology for specimen. Admission and Anticipated Discharge Date Admission Date: June 26, 2022 Subjective 62-year-old male with end-stage renal disease, surgery consulted for biopsy for possible calciphylaxis. He has wounds that burn on his left lower extremity remnant as well as his right ankle and lower extremity. Physical Exam Constitutional: WD/WN, vitals as above Skin: no rashes, warm and dry + wound (Multiple lower extremity wounds bilaterally, some with eschar) Results & Data ([facility]) Vital Signs (Past 12 Hours) Vital Signs Temp Pulse Pulse Pulse Resp BP BP 07/01/22 13:47 36.4 C L 77 117/78 07/01/22 13:30 81 115/69 07/01/22 13:00 85 110/78 07/01/22 12:30 81 130/74 07/01/22 12:00 83 95/56 L 07/01/22 11:30 82 105/63 07/01/22 11:00 80 154/80 H 07/01/22 10:30 78 161/96 H 07/01/22 10:00 64 162/90 H 07/01/22 09:30 49 L 156/84 H 07/01/22 09:11 48 L 168/92 H 07/01/22 08:58 36.4 C L 62 07/01/22 08:08 36.3 C L 46 L 18 181/60 H 07/01/22 07:27 73 Pulse Ox O2 Del Method 07/01/22 13:47 07/01/22 13:30 07/01/22 13:00 07/01/22 12:30 07/01/22 12:00 07/01/22 11:30 07/01/22 11:00 07/01/22 10:30 07/01/22 10:00 07/01/22 09:30 07/01/22 09:11 07/01/22 08:58 07/01/22 08:08 98 Room Air 07/01/22 07:27 PG Care Time/CCT Total # of Minutes Spent Total Time Spent with Patient: Total time spent is greater than 50% in coordination of care (as documented) at patient's floor/unit and/or counseling patient: Coding Level of Care Code 81659 Inpt Consult Level 2 Diagnoses Calciphylaxis cutis E83.59
--- NOTE | 2022-07-01 15:56 | Procedure Note ---
Procedure Note Date of Service July 01, 2022 Note Verbal consent was obtained. Patient's left lower extremity remnant wounds were prepped and cleaned with Betadine. Local anesthetic was injected at 4 different sites. 2 mm punch biopsies were obtained from the wounds, a total of 5 biopsies were obtained. These were placed in formalin and sent to pathology. Pressure was held and hemostasis was achieved. The wounds were not closed. The leg was wrapped with Kerlix. Coding
--- NOTE | 2022-07-01 18:49 | Hospitalist Progress Note ---
Date of Service July 01, 2022 Assessment & Plan (1) Physical deconditioning: Plan: Patient here for generalized weakness and deconditioning due to his chronic medical conditions and hyperphosphatemia due to him not taking phosphate binders cause itchy skin and multiple wounds all over his body. - Patient complains of Generalized weakness and 40 pound weight loss, has been an ongoing issue for 6 months, but has been acutely worse 3-4 days prior to presentation - No evidence of PNA on chest x ray, but some suggestion of congestion. - Suspect this is a chronic issue, possibly exacerbated by a wound infection as he has several open wounds on his right lower extremity. - Blood cultures negative. Procalcitonin downtrending but may be chronically raised due to ESRD. Will complete 7 day course of daptomycin. 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 - Right lower extremity has several open circumferential wounds measuring several mm - several cm in diameter, dorsalis pedis and posterior tibialis pulses are not palpable, per review of wound care note from earlier last month this is not new. His pulses were weak but detectable with Doppler then. - He is not on any antiplatelets or statins. - Wound care consulted, appreciate recs - He had arterial duplex done at [facility] in [place] a couple of days ago, it shows evidence of severe PAD - Vascular on consult, no plans for revascularization (3) Calciphylaxis cutis: Plan: possibly the cause of his non healing ulcers and leg lesions For skin biopsy today by surgery (4) Weakness: (5) Elevated troponin: Plan: - Troponin elevated secondary to ESRD TTE - global hypokinesis 35-40% with severe hypokinesis of anterolateral wall. No chest pain - can follow up with cardiology as outpatient (6) Coronary artery disease: Plan: - Per PCP note from April, patient denies history of this, no current medications. Cannot find any cardiology notes, he is declined echoes and referral to cardiology in the past. - Will have on a low-salt/DM diet while admitted. Given old regional wall motion abnormalities suspect he has had an GA in the past (7) Chronic diastolic congestive heart failure: Plan: -Fluid status managed by hemodialysis (8) End-stage renal disease on hemodialysis: Plan: - Nephrology on consult -Continue HD (9) Diabetes: Plan: - Type II diabetic, maintained only on Lantus 10 units which she takes around midnight. - Continue this, add on SSI. - Per PCP report last A1c was 5.4%, indicating great control of sugars. - DM2/low-salt diet. (10) Hypertension: Plan: -BP 148/76 -Started on Amlodipine (11) Secondary hyperparathyroidism of renal origin: Plan: - Secondary to ESRD. (12) Anemia due to chronic kidney disease: Plan: - Hgb 11.2, in setting of CKD, is at patient's baseline. - Continue to monitor. Plan - continue mgt - SCDs, heprin for VTE ppx. - Full Code. - stable for downgrade to med/surg, planning on SNF on discharge Admission and Anticipated Discharge Date Admission Date: June 26, 2022 Subjective Patient reports much improved since admission. Main concern is left back/pain. Also had a vomiting episode today but he reports this is not unusual for him. Passing flatus but no BM for 2 days, no abdominal pain, melena or bright red blood in stool. Review of Systems Review of Systems: All systems reviewed & are unremarkable except as noted in Subjective Physical Exam Constitutional: well developed; + not well nourished and no acute distress Respiratory: normal respiratory effort, lungs clear to auscultation Cardiovascular: Rate/Rhythm: regular rate and regular rhythm Gastrointestinal (Abdomen): normal bowel sounds, soft, nontender, no hepatosplenomegaly Skin: pruritic rash on back. Multiple crusted lesions on b/l lower extremities. No feeling in purple foot without pulses on right side. No overt cellulitis noted. No pain on palpation over left lateral hip. Some pain on int/ext rotation of hip. Psychiatric: A+Ox3, euthymic affect Results & Data Results & Data ([facility]) Vital Signs (Past 12 Hours) Vital Signs Temp Pulse Pulse Pulse Resp BP BP 07/01/22 16:07 07/01/22 16:00 07/01/22 16:01 36.4 C L 80 18 159/87 H 07/01/22 13:47 36.4 C L 77 117/78 07/01/22 13:30 81 115/69 07/01/22 13:00 85 110/78 07/01/22 12:30 81 130/74 07/01/22 12:00 83 95/56 L 07/01/22 11:30 82 105/63 07/01/22 11:00 80 154/80 H 07/01/22 10:30 78 161/96 H 07/01/22 10:00 64 162/90 H 07/01/22 09:30 49 L 156/84 H 07/01/22 09:11 48 L 168/92 H 07/01/22 08:58 36.4 C L 62 07/01/22 08:08 36.3 C L 46 L 18 181/60 H 07/01/22 07:27 73 Pulse Ox Pulse Ox O2 Del Method O2 Del Method 07/01/22 16:07 Room Air 07/01/22 16:00 96 Room Air 07/01/22 16:01 96 Room Air 07/01/22 13:47 07/01/22 13:30 07/01/22 13:00 07/01/22 12:30 07/01/22 12:00 07/01/22 11:30 07/01/22 11:00 07/01/22 10:30 07/01/22 10:00 07/01/22 09:30 07/01/22 09:11 07/01/22 08:58 07/01/22 08:08 98 Room Air 07/01/22 07:27 PG Care Time/CCT Total # of Minutes Spent Total Time Spent with Patient: Total time spent is greater than 50% in coordination of care (as documented) at patient's floor/unit and/or counseling patient: Coding Level of Care Code 48803 Subseq Hosp Care Lvl 3 Diagnoses Physical deconditioning R53.81 PAD (peripheral artery disease) I73.9 Calciphylaxis cutis E83.59 Weakness R53.1 Elevated troponin R77.8 Coronary artery disease I25.10 Chronic diastolic congestive heart failure I50.32 End-stage renal disease on hemodialysis N18.6; Z99.2 Diabetes E11.9 Hypertension I10 Secondary hyperparathyroidism of renal origin N25.81 Anemia due to chronic kidney disease N18.5; D63.1 Chronic kidney disease stage: stage 5, not on chronic dialysis (1) Anemia due to chronic kidney disease Chronic kidney disease stage: stage 5, not on chronic dialysis Qualified Code(s): N18.5 - Chronic kidney disease, stage 5; D63.1 - Anemia in chronic kidney disease
[2022-07-01] MEDS: POLYETHYLENE (MIRALAX) 17 GM PACK PO SCH (21:27)
[2022-07-02] MEDS: IBUPROFEN 200 MG TAB PO PRN (03:37)
[2022-07-02] MEDS: HEPARIN SOD 5,000 UNIT/0.5 ML VIAL SQ SCH ×3 (04:52→20:25)
[2022-07-02] MEDS: amLODIPine BESYLATE 5 MG TAB PO SCH ×2 (08:04→09:57)
[2022-07-02] MEDS: SEVELAMER HCL 800 MG TABLET PO SCH ×3 (08:04→17:07)
[2022-07-02] MEDS: DOCUSATE SODIUM 100 MG CAP PO SCH ×2 (08:05→20:26)
[2022-07-02] MEDS: POLYETHYLENE (MIRALAX) 17 GM PACK PO SCH ×3 (08:05→20:25)
[2022-07-02] MEDS: LANTUS PER UNIT CHARGE SQ SCH (08:06)
[2022-07-02] MEDS: INSULIN ASPART PER UNIT SC SCH ×4 (08:06→20:31)
[2022-07-02] MEDS: NEPHROCAPS PO SCH (09:07)
[2022-07-02] MEDS ORDERED: amLODIPine BESYLATE 5 MG TAB PO ONE (09:30)
[2022-07-02 10:03] LABS: Basophils # (auto) 0.04 K/uL (0-0.2); Basophils % (auto) 0.6 %; Eosinophils % (auto) 1.6 %; Hemoglobin 10.5 g/dl (14.0-18.0); Immature Granulocytes # (auto) 0.02 K/uL (0.00-0.02); Immature Granulocytes % (auto) 0.3 %; Lymphocytes % (auto) 24.2 %; Mean Corpuscular Hemoglobin 28.7 pg (25.0-34.0); Mean Corpuscular Hgb Conc 32.8 g/dL (32.0-36.0); Mean Corpuscular Volume 87.4 fL (80.0-100.0); Mean Platelet Volume 11.1 fL (9.4-12.4); Monocytes # (auto) 0.47 K/uL (0.24-0.82); Monocytes % (auto) 7.6 %; Neutrophils # (auto) 4.07 K/uL (1.4-6.5); Neutrophils % (auto) 65.7 %; Platelet Count 221 K/uL (130-400); RDW Coefficient of Variation 16.7 % (11.5-14.5); RDW Standard Deviation 52.2 fL (36.4-46.3); Red Blood Count 3.66 M/uL (4.63-6.08)
--- NOTE | 2022-07-02 10:04 | Nephrology Progress Note ---
Date of Service July 02, 2022 Assessment & Plan (1) End-stage renal disease on hemodialysis: (2) PAD (peripheral artery disease): (3) Weakness: (4) Open leg wound: (5) Secondary hyperparathyroidism of renal origin: (6) Anemia due to chronic kidney disease: Plan ESRD on HD due to DKD, hypertensive nephrosclerosis and underlying vascular disease, on HD TTS at [facility] (4.5hr, 2K 2.5Ca Na 137, HCO3 38, F-250 NR, 14 g needles, Qb500 Qd 800, EDW 130.5 Kg, heparin 3000 unit bolus + 2500 units q1 hr, L forearm AVF, mircera 50 mcg q4wk - last dose 06/14).Admitted with Generalized weakness, repeated falls at home and lower extremity multiple nonhealing ischemic ulcer both in right lower extremity as well as seen left BKA stump. Has been following with Wound Care. Evaluated by vascular surgery, had Doppler showing recent blood flow to right lower extremity. Blood pressure has been elevated, electrolyte acceptable, had dialysis yesterday. -- waiting on skin biopsy while continuing on daptomycin and wound care, although has significant peripheral vascular disease but no focal lesion and not amenable to any surgical intervention as per vascular surgery. -- follow low phosphorus diet, continue on phosphate binder with meal -- increase amlodipine to 10 mg daily, give after dialysis on dialysis days. -- Dose medications for eGFR less than 10, left arm nephrology precaution -- Epogen 32845 units on 07/01/22, renal vitamin once a day. Will follow. Admission and Anticipated Discharge Date Admission Date: June 26, 2022 Subjective Danielito was seen and evaluated during HD this morning. He denies shortness of breath or chest pain. Rt hip pain resolved. Blood pressure slightly improved. Electrolyte acceptable. Review of Systems Review of Systems: Detailed review of system was otherwise unremarkable. Physical Exam Constitutional: WD/WN, vitals as above no acute distress Respiratory: Auscultation: lungs clear to auscultation bilaterally Cardiovascular: Rate/Rhythm: regular rate and regular rhythm Heart Sounds: normal S1 and normal S2 Extremities: + edema and + AV fistula (with + thrill and Bruit) Skin: + lesion, + ulcer, + skin atrophy and + erythema Neurologic: no focal motor deficits Psychiatric: Orientation: alert and oriented x 3 Results & Data ([facility]) Vital Signs (Past 12 Hours) Vital Signs Temp Pulse Pulse Resp BP Pulse Ox O2 Del Method 07/02/22 09:43 Room Air 07/02/22 08:12 159/82 H 07/02/22 07:53 36.5 C 80 20 171/109 H 97 Room Air 07/01/22 22:43 36.7 C 88 20 152/96 H 96 Room Air PG Care Time/CCT Total # of Minutes Spent Total Time Spent with Patient: Total time spent is greater than 50% in coordination of care (as documented) at patient's floor/unit and/or counseling patient: Coding Level of Care Code 23280 Subseq Hosp Care Lvl 3 Diagnoses End-stage renal disease on hemodialysis N18.6; Z99.2 PAD (peripheral artery disease) I73.9 Weakness R53.1 Open leg wound S81.809A Secondary hyperparathyroidism of renal origin N25.81 Anemia due to chronic kidney disease N18.5; D63.1 Chronic kidney disease stage: stage 5, not on chronic dialysis (1) Anemia due to chronic kidney disease Chronic kidney disease stage: stage 5, not on chronic dialysis Qualified Code(s): N18.5 - Chronic kidney disease, stage 5; D63.1 - Anemia in chronic kidney disease
[2022-07-02 10:32] LABS: BUN Creatinine Ratio 9.1 (10-20); Creatinine Clr Calc Pharmacy 20.3 ml/min; Est GFR (African American) 11.8 ml/min; Est GFR (Non-African American) 10.2 ml/min; Potassium 4.6 mmol/L (3.5-5.1)
--- NOTE | 2022-07-02 16:54 | Cardiology Consultation ---
Date of Consultation July 02, 2022 Assessment & Plan (1) Multiple risk factors for coronary artery disease: (2) Hypertension: (3) End-stage renal disease on hemodialysis: (4) PAD (peripheral artery disease): (5) Heart failure with mid-range ejection fraction: (6) Diabetes: Plan 62-year-old man with multiple 62-year-old man with CAD risk factors (diabetes, hypertension, peripheral arterial disease) but thus far no documented coronary disease, who was noted on echocardiogram to have declining left ventricular systolic function (50% several years ago, now 35-40%). Perhaps due to his physical inactivity, he denies any symptoms suggesting ongoing myocardial ischemia, significant congestive heart failure, or major dysrhythmias. At some point it may be reasonable to further evaluate his coronary artery status, but in the absence of any symptoms this is nonurgent. An outpatient Lexiscan could be obtained, dobutamine stress echocardiogram is less desirable given his poor echocardiographic windows. Currently, he appears euvolemic, likely his volume status can be well regulated with dialysis since he is no longer on a diuretic. His cardiomyopathy may be due to longstanding poorly controlled hypertension, unknown diagnosed coronary artery disease, or combination of both. Optimizing his hemodynamics may be difficult given both his blood pressure and heart rate lability. Given apparent orthostasis after dialysis, it may be prudent to have him take his vasoactive medications only on nondialysis days. His amlodipine was recently increased, this is reasonable but can lead to leg edema, would monitor for this. Although he does have occasional bradycardia, for afterload reduction and beta-blockade could try low-dose carvedilol with gentle upward titration. For his marked periodic BP elevations, would consider clonidine 0.1 mg on a as needed basis, if this is well-tolerated could start daily dosing and move up to twice daily, this has the advantage of managing elevated BPs without significant risk of hypotension. He may also be a candidate for an ARB or LYLE inhibitor as well as Entresto, but initiating any vasoactive medications will need to be a very gradual process given his hemodynamic lability. Given his vascular risk factors, he should continue on daily aspirin and should likely should be on a statin regardless of lipid profile. Will continue while he is hospitalized. History of Present Illness Reason for Consultation: Cardiomyopathy Requesting Physician: Miller Mcneal MD Attending Physician: Miller Mcneal MD History of Present Illness 62-year-old man with longstanding diabetes mellitus (on insulin), end-stage renal disease (MWF dialysis), significant hypertension, peripheral arterial disease (status post left BKA), and chronic edema with questionable history of congestive heart failure was admitted 06/26/2022 with generalized weakness and inability to care for himself (lives alone), noted on routine echocardiogram to have reduced systolic function and possible wall motion abnormality prompting cardiology consultation. To lack of appetite he has lost about 40 pounds in recent months and notes difficulty with ambulation due to marked pain whenever he stands on his 1 good leg (the right leg). He denies any dyspnea or angina at any time, but as noted his ambulatory status is very limited and he performs little physical activity. Chest x-ray on admission showed some increased interstitial markings and BNP was 467, and as noted the patient has not noted dyspnea, orthopnea, or recent leg edema (has a history of leg edema in the past). He does note orthostatic lightheadedness sometimes after dialysis. At the time of my evaluation this afternoon, patient was comfortable with no dyspnea, chest pain, or other cardiopulmonary complaints. He had undergone a biopsy for calciphylaxis and he have to undergo further procedures. Allergies Allergy/AdvReac Type Severity Reaction Status Date / Time doxycycline Allergy Unknown Rash Verified 06/26/22 17:29 cephalexin [From Keflex] AdvReac Intermediate ITCHING Verified 06/26/22 17:29 Home Medications Medication Instructions Recorded Confirmed Type insulin glargine 100 unit/mL (3 See Rx Instructions .Route .COMPLEX 05/15/22 06/26/22 History mL) subcutaneous pen (Basaglar KwikPen U-100 Insulin) Phosphate Binder 0 mg PO DIRECTED 06/26/22 06/26/22 History Patient History Medical History Acute blood loss anemia Acute kidney injury Amputated toe of left foot Amputated toe of right foot Anasarca Bilateral cellulitis of lower leg ESRD (end stage renal disease) on dialysis Gangrene Gangrene HTN (hypertension) Hyperparathyroidism due to end stage renal disease on dialysis Metabolic acidosis Nephrotic syndrome Obesity Osteomyelitis Proteinuria Surgical History History of angioplasty of peripheral vessel S/P arteriovenous (AV) fistula creation Status post incision and drainage left foot wound Family History Other Diabetes Family history non-contributory Hypertension Social History Smoking Status: Never smoker Second Hand Exposure: No; Hx Alcohol Use: Yes Hx Substance Use: No Preferred Language: Tongan Communication Ability: Effective Visual Impairment: No Limitations Hearing Ability: Hard of Hearing Hotel Director Required: No Beliefs That Will Affect Care: None marital status: Single Current Living Situation: Alone Feels Safe at Home: Yes caffeine: Yes during the past year weight has: remained stable Seatbelt Use: always Sunscreen Use: No Assistive Devices: Walker and Wheelchair Physical Exam Physical Exam: Adult white male in no distress. Afebrile. BP labile (systolic blood pressure varied between 95 and 185 mmHg over the past 48 hours). Variable heart rate, ranging from 49 bpm to 88 bpm over the past 48 hours. Skin: Multiple lesions both lower extremities. HEENT: unremarkable. Neck: Jugulovenous pulse at the clavicle at 90 degrees, no obvious carotid bruits. Lungs: Mildly decreased breath sounds but generally clear. No obvious crackles or wheezes, no accessory muscle use. Cardiac: regular rhythm, faint heart tones, no obvious murmur or gallop. Abdomen: benign. Extremities: Left BKA, right leg with barely palpable dorsalis pedis pulse but warm. Marked rubor. Bandaged lesions. Neurologic: normal affect and conversation, nonfocal. Results & Data ([facility]) Laboratory Results Flat troponin curve (4 draws between 42 and 49). BNP is noted. Sodium 131, chloride 91, potassium 4.6, BUN 51, creatinine 5.58. Hemoglobin 10.5. Normal white count and platelet count. Diagnostic Findings ECG on admission showed sinus rhythm with occasional PVCs, nonspecific T wave flattening, and mildly prolonged QT interval. Compared with outside ECGs from April 2022, no significant change. Chest x-ray showed patchy interstitial/vascular thickening with patchy bilateral hazy airspace opacities most pronounced on the left. Costophrenic angles are sharp, no evidence of pleural effusion. Echocardiogram from this admission shows EF 35 to 40% with global hypokinesis most marked in the anterolateral wall, mild LVH with severe left atrial dilation and mild pulmonary hypertension on technically limited study. Compared to 2017 study, LV systolic function has declined and there is no longer severe LVH. PG Care Time/CCT Total # of Minutes Spent Total Time Spent with Patient: Total time spent is greater than 50% in coordination of care (as documented) at patient's floor/unit and/or counseling patient: Coding Level of Care Code 79260 Inpt Consult Level 4 Diagnoses Multiple risk factors for coronary artery disease Z91.89 Hypertension I10 End-stage renal disease on hemodialysis N18.6; Z99.2 PAD (peripheral artery disease) I73.9 Heart failure with mid-range ejection fraction I50.22 Diabetes E11.9
--- NOTE | 2022-07-02 18:05 | XRay Report ---
XR hip LT 2V w pelvis HISTORY: 62 years-old Male left hip pain on leg rotation acute pain of the pelvis and left hip COMPARISON: None TECHNIQUE: AP view the pelvis with 2 views of the left hip FINDINGS: Mild to moderate osteoarthritis of the hips. No acute fracture, dislocation or avascular necrosis nadege ntified. Arterial calcifications. Partially imaged arterial stent graft within the left thigh. Limite d study secondary to patient body habitus. IMPRESSION: Limited exam secondary to patient body habitus. No acute fracture or dislocation identifi ed. ACT 112: Negative or not required by law. The above report was generated using voice recognition software. It may contain grammatical, syntax o r spelling errors. Electronically signed by: Kvng Campbell M.D. 07/02/2022 6:04 PM
--- NOTE | 2022-07-02 23:50 | Hospitalist Progress Note ---
Date of Service July 02, 2022 Assessment & Plan (1) Physical deconditioning: Plan: Patient here for generalized weakness and deconditioning due to his chronic medical conditions and hyperphosphatemia due to him not taking phosphate binders cause itchy skin and multiple wounds all over his body. - Patient complains of Generalized weakness and 40 pound weight loss, has been an ongoing issue for 6 months, but has been acutely worse 3-4 days prior to presentation - No evidence of PNA on chest x ray, but some suggestion of congestion. - Suspect this is a chronic issue, possibly exacerbated by a wound infection as he has several open wounds on his right lower extremity. - Blood cultures negative. Procalcitonin downtrending but may be chronically raised due to ESRD. Will complete 7 day course of daptomycin today. 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 - Right lower extremity has several open circumferential wounds measuring several mm - several cm in diameter, dorsalis pedis and posterior tibialis pulses are not palpable, per review of wound care note from earlier last month this is not new. His pulses were weak but detectable with Doppler then. - He is not on any antiplatelets or statins. Will start on aspirin tomorrow. - Wound care consulted, appreciate recs - He had arterial duplex done at [facility] in [place], it shows evidence of severe PAD - Vascular on consult, no plans for revascularization (3) Calciphylaxis cutis: Plan: possibly the cause of his non healing ulcers and leg lesions Skin biopsy performed but needs deeper biopsy per surgery - planning on repeat tomorrow (4) Weakness: (5) Elevated troponin: Plan: - Troponin elevated secondary to ESRD TTE - global hypokinesis 35-40% with severe hypokinesis of anterolateral wall. No chest pain - consult cardiology (6) Coronary artery disease: Plan: - Per PCP note from April, patient denies history of this, no current medications. Cannot find any cardiology notes, he is declined echoes and referral to cardiology in the past. - Will have on a low-salt/DM diet while admitted. Given old regional wall motion abnormalities suspect he has had an NM in the past (7) Chronic diastolic congestive heart failure: Plan: -Fluid status managed by hemodialysis (8) End-stage renal disease on hemodialysis: Plan: - Nephrology on consult -Continue HD (9) Diabetes: Plan: - Type II diabetic, stop Lantus - does not appear to need this, hypoglycemic here Novolog switch to correction only - HbA1C not accurate in setting of ESRD on dialysis - DM2/low-salt diet. (10) Hypertension: Plan: -BP 148/76 -Continue on Amlodipine (11) Secondary hyperparathyroidism of renal origin: Plan: - Secondary to ESRD. (12) Anemia due to chronic kidney disease: Plan: - Hgb 11.2, in setting of CKD, is at patient's baseline. - Continue to monitor. Plan - continue mgt - SCDs, heparin for VTE ppx. - Full Code. - stable for downgrade to med/surg, planning on SNF on discharge Admission and Anticipated Discharge Date Admission Date: June 26, 2022 Subjective No significant change in symptoms. Discussed cardiomyopathy findings and will have cardiology see him while he is here. No ischemic symptoms but may need a cath at some point. Hip pain resolved with bowel movement therefore suspected due to constipation. Review of Systems Review of Systems: All systems reviewed & are unremarkable except as noted in Subjective Physical Exam Constitutional: well developed; + not well nourished and no acute distress Respiratory: normal respiratory effort, lungs clear to auscultation Cardiovascular: Rate/Rhythm: regular rate and regular rhythm Gastrointestinal (Abdomen): normal bowel sounds, soft, nontender, no hepatosplenomegaly Skin: Unchanged pruritic skin rash over entire body Psychiatric: A+Ox3, euthymic affect Results & Data Results & Data ([facility]) Vital Signs (Past 12 Hours) Vital Signs Temp Pulse Resp BP Pulse Ox O2 Del Method 07/02/22 23:01 36.7 C 75 18 152/95 H 97 Room Air 07/02/22 20:40 Room Air 07/02/22 14:53 36.8 C 79 18 154/91 H 99 Room Air PG Care Time/CCT Total # of Minutes Spent Total Time Spent with Patient: Total time spent is greater than 50% in coordination of care (as documented) at patient's floor/unit and/or counseling patient: Coding Level of Care Code 60740 Subseq Hosp Care Lvl 2 Diagnoses Physical deconditioning R53.81 PAD (peripheral artery disease) I73.9 Calciphylaxis cutis E83.59 Weakness R53.1 Elevated troponin R77.8 Coronary artery disease I25.10 Chronic diastolic congestive heart failure I50.32 End-stage renal disease on hemodialysis N18.6; Z99.2 Diabetes E11.9 Hypertension I10 Secondary hyperparathyroidism of renal origin N25.81 Anemia due to chronic kidney disease N18.5; D63.1 Chronic kidney disease stage: stage 5, not on chronic dialysis (1) Anemia due to chronic kidney disease Chronic kidney disease stage: stage 5, not on chronic dialysis Qualified Code(s): N18.5 - Chronic kidney disease, stage 5; D63.1 - Anemia in chronic kidney disease
[2022-07-03] MEDS: HEPARIN SOD 5,000 UNIT/0.5 ML VIAL SQ SCH ×3 (02:55→20:18)
[2022-07-03 07:29] LABS: Hematocrit (blood only) 31.9 % (40.1-51.0); Hemoglobin 10.3 g/dl (14.0-18.0); Mean Corpuscular Hemoglobin 29.3 pg (25.0-34.0); Mean Corpuscular Hgb Conc 32.3 g/dL (32.0-36.0); Mean Corpuscular Volume 90.6 fL (80.0-100.0); Mean Platelet Volume 10.8 fL (9.4-12.4); Platelet Count 213 K/uL (130-400); RDW Coefficient of Variation 16.8 % (11.5-14.5); RDW Standard Deviation 54.9 fL (36.4-46.3); Red Blood Count 3.52 M/uL (4.63-6.08); White Blood Count 6.77 K/ul (4.8-10.8)
[2022-07-03 07:51] LABS: BUN Creatinine Ratio 11.1 (10-20); Calcium 8.9 mg/dl (8.5-10.1); Chol HDL Ratio 3.1 (0-5); Creatinine Clr Calc Pharmacy 15.8 ml/min; Est GFR (African American) 8.8 ml/min; Est GFR (Non-African American) 7.6 ml/min; Potassium 5.4 mmol/L (3.5-5.1)
[2022-07-03] MEDS: INSULIN ASPART PER UNIT SC SCH ×4 (08:13→20:36)
[2022-07-03] MEDS: DOCUSATE SODIUM 100 MG CAP PO SCH ×2 (08:14→20:23)
[2022-07-03] MEDS: ASPIRIN 81 MG ECTAB PO SCH (08:15)
[2022-07-03] MEDS: amLODIPine BESYLATE 5 MG TAB PO SCH (08:15)
[2022-07-03] MEDS: NEPHROCAPS PO SCH (08:15)
[2022-07-03] MEDS: SEVELAMER HCL 800 MG TABLET PO SCH ×3 (08:15→17:02)
[2022-07-03] MEDS: POLYETHYLENE (MIRALAX) 17 GM PACK PO SCH ×3 (08:15→20:21)
[2022-07-03 08:33] LABS: Ferritin 578.3 ng/ml (8-388)
[2022-07-03] MEDS ORDERED: LIDOCAINE 2%/EPINEPHRINE 1:100,000 20ML INFIL ONE (09:30)
--- NOTE | 2022-07-03 10:30 | Nephrology Progress Note ---
Date of Service July 03, 2022 Assessment & Plan (1) End-stage renal disease on hemodialysis: (2) PAD (peripheral artery disease): (3) Weakness: (4) Open leg wound: (5) Secondary hyperparathyroidism of renal origin: (6) Anemia due to chronic kidney disease: Plan ESRD on HD due to DKD, hypertensive nephrosclerosis and underlying vascular disease, on HD TTS at [facility] (4.5hr, 2K 2.5Ca Na 137, HCO3 38, F-250 NR, 14 g needles, Qb500 Qd 800, EDW 130.5 Kg, heparin 3000 unit bolus + 2500 units q1 hr, L forearm AVF, mircera 50 mcg q4wk - last dose 06/14).Admitted with Generalized weakness, repeated falls at home and lower extremity multiple nonhealing ischemic ulcer both in right lower extremity as well as seen left BKA stump. Has been following with Wound Care. Evaluated by vascular surgery, had Doppler showing decent blood flow to right lower extremity, atherosclerotic disease without any focal lesion. Skin biopsy negative for calciphylaxis, although recommended deeper tissue biopsy. Blood pressure has been elevated, electrolyte acceptable. -- HD today with 2 K bath. --since overall clinically improving, most of the ulcers started to heal and Bx negative, do not see any need for repeat skin biopsy. -- follow low phosphorus diet, continue on phosphate binder with meal -- continue on amlodipine 10 mg daily, give in pm on dialysis days. -- Dose medications for eGFR less than 10, left arm nephrology precaution -- Epogen 02919 units given on 07/01/22, renal vitamin once a day. Will follow. Admission and Anticipated Discharge Date Admission Date: June 26, 2022 Subjective Danielito was seen and evaluated during HD this morning. He denies shortness of breath or chest pain. Rt hip pain resolved. Blood pressure slightly improved. Electrolyte acceptable. Due for HD today. Review of Systems Review of Systems: Detailed review of system was otherwise unremarkable. Physical Exam Constitutional: WD/WN, vitals as above + ill appearing; no acute distress Eyes: + anicteric sclerae ENMT: Ears: no hearing impairment Respiratory: Auscultation: lungs clear to auscultation bilaterally Cardiovascular: Rate/Rhythm: regular rate and regular rhythm Heart Sounds: normal S1 and normal S2 Extremities: + edema and + AV fistula (with + thrill and Bruit) Skin: + lesion, + ulcer, + skin atrophy and + erythema Neurologic: no focal motor deficits Psychiatric: Orientation: alert and oriented x 3 Results & Data ([facility]) Vital Signs (Past 12 Hours) Vital Signs Temp Pulse Pulse Pulse Resp BP BP 07/03/22 10:00 79 154/112 H 07/03/22 09:38 77 157/92 H 07/03/22 09:30 36.3 C L 79 07/03/22 09:00 07/03/22 07:55 36.6 C 76 18 186/93 H 07/02/22 23:01 36.7 C 75 18 BP Pulse Ox O2 Del Method 07/03/22 10:00 07/03/22 09:38 07/03/22 09:30 07/03/22 09:00 Room Air 07/03/22 07:55 97 Room Air 07/02/22 23:01 152/95 H 97 Room Air PG Care Time/CCT Total # of Minutes Spent Total Time Spent with Patient: Total time spent is greater than 50% in coordination of care (as documented) at patient's floor/unit and/or counseling patient: Coding Level of Care Code 53951 Subseq Hosp Care Lvl 3 Diagnoses End-stage renal disease on hemodialysis N18.6; Z99.2 PAD (peripheral artery disease) I73.9 Weakness R53.1 Open leg wound S81.809A Secondary hyperparathyroidism of renal origin N25.81 Anemia due to chronic kidney disease N18.5; D63.1 Chronic kidney disease stage: stage 5, not on chronic dialysis (1) Anemia due to chronic kidney disease Chronic kidney disease stage: stage 5, not on chronic dialysis Qualified Code(s): N18.5 - Chronic kidney disease, stage 5; D63.1 - Anemia in chronic kidney disease
[2022-07-03] MEDS ORDERED: EPOETIN ALFA 10,000 UNITS/ML VIAL IV STA (10:45)
[2022-07-03] MEDS ORDERED: cloNIDine HCL 0.1 MG TAB PO PRN (15:08)
--- NOTE | 2022-07-03 19:31 | Hospitalist Progress Note ---
Date of Service July 03, 2022 Assessment & Plan (1) Physical deconditioning: Plan: Medically stable for discharge pending placement at this time. Patient here for generalized weakness and deconditioning due to his chronic medical conditions and hyperphosphatemia due to him not taking phosphate binders cause itchy skin and multiple wounds all over his body. - Patient complains of Generalized weakness and 40 pound weight loss, has been an ongoing issue for 6 months, but has been acutely worse 3-4 days prior to presentation - No evidence of PNA on chest x ray, but some suggestion of congestion. - Suspect this is a chronic issue, possibly exacerbated by a wound infection as he has several open wounds on his right lower extremity. - Blood cultures negative. Procalcitonin downtrending but may be chronically raised due to ESRD. Will complete 7 day course of daptomycin today. 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 - Right lower extremity has several open circumferential wounds measuring several mm - several cm in diameter, dorsalis pedis and posterior tibialis pu lses are not palpable, per review of wound care note from earlier last month this is not new. His pulses were weak but detectable with Doppler then. - He is not on any antiplatelets or statins. Will start on aspirin tomorrow. - Wound care consulted, appreciate recs - He had arterial duplex done at [facility] in [place], it shows evidence of severe PAD - Vascular on consult, no plans for revascularization Start ASA (3) Calciphylaxis cutis: Plan: possibly the cause of his non healing ulcers and leg lesions Skin biopsy performed but needs deeper biopsy per surgery - planning on repeat tomorrow (4) Weakness: (5) Elevated troponin: Plan: - Troponin elevated secondary to ESRD TTE - global hypokinesis 35-40% with severe hypokinesis of anterolateral wall. No chest pain - appreciate cardiology consult - discussed care with Dr Vega (6) Coronary artery disease: Plan: - Per PCP note from April, patient denies history of this, no current medications. Cannot find any cardiology notes, he is declined echoes and referral to cardiology in the past. - Will have on a low-salt/DM diet while admitted. Given old regional wall motion abnormalities suspect he has had an MS in the past Start ASA + low dose cervedilol (7) Chronic diastolic congestive heart failure: Plan: -Fluid status managed by hemodialysis (8) End-stage renal disease on hemodialysis: Plan: - Nephrology on consult -Continue HD (9) Diabetes: Plan: - Type II diabetic, stop Lantus - does not appear to need this, hypoglycemic here. Suspect he no longer requires treatment for this given his weight loss and current glucose values Novolog switch to correction only - HbA1C not accurate in setting of ESRD on dialysis - DM2/low-salt diet. (10) Hypertension: Plan: -BP 148/76 -Continue on Amlodipine (11) Secondary hyperparathyroidism of renal origin: Plan: - Secondary to ESRD. (12) Anemia due to chronic kidney disease: Plan: - Hgb 11.2, in setting of CKD, is at patient's baseline. - Continue to monitor. Plan - continue mgt - SCDs, heparin for VTE ppx. - Full Code. - stable for downgrade to med/surg, planning on SNF on discharge Admission and Anticipated Discharge Date Admission Date: June 26, 2022 Subjective No acute concerns or questions at this time. No events overnight. Review of Systems Review of Systems: All systems reviewed & are unremarkable except as noted in Subjective Physical Exam Constitutional: well developed; + not well nourished and no acute distress Respiratory: normal respiratory effort, lungs clear to auscultation Cardiovascular: Rate/Rhythm: regular rate and regular rhythm Gastrointestinal (Abdomen): normal bowel sounds, soft, nontender, no hepatosplenomegaly Psychiatric: A+Ox3, euthymic affect Results & Data Results & Data ([facility]) Vital Signs (Past 12 Hours) Vital Signs Temp Pulse Pulse Pulse Resp BP BP 07/03/22 13:30 83 159/89 H 07/03/22 13:00 84 166/99 H 07/03/22 12:30 91 H 141/68 H 07/03/22 14:30 36.3 C L 83 07/03/22 12:00 86 174/77 H 07/03/22 15:46 36.5 C 82 18 07/03/22 15:10 36.6 C 83 17 07/03/22 11:30 82 169/99 H 07/03/22 11:00 66 127/51 L 07/03/22 10:30 80 142/85 H 07/03/22 10:00 79 154/112 H 07/03/22 09:38 77 157/92 H 07/03/22 09:30 36.3 C L 79 07/03/22 09:00 07/03/22 07:55 36.6 C 76 18 186/93 H BP Pulse Ox O2 Del Method 07/03/22 13:30 07/03/22 13:00 07/03/22 12:30 07/03/22 14:30 155/97 H 07/03/22 12:00 07/03/22 15:46 137/83 99 Room Air 07/03/22 15:10 169/81 H 97 Room Air 07/03/22 11:30 07/03/22 11:00 07/03/22 10:30 07/03/22 10:00 07/03/22 09:38 07/03/22 09:30 07/03/22 09:00 Room Air 07/03/22 07:55 97 Room Air PG Care Time/CCT Total # of Minutes Spent Total Time Spent with Patient: Total time spent is greater than 50% in coordination of care (as documented) at patient's floor/unit and/or counseling patient: Coding Level of Care Code 97708 Subseq Hosp Care Lvl 2 Diagnoses Physical deconditioning R53.81 PAD (peripheral artery disease) I73.9 Calciphylaxis cutis E83.59 Weakness R53.1 Elevated troponin R77.8 Coronary artery disease I25.10 Chronic diastolic congestive heart failure I50.32 End-stage renal disease on hemodialysis N18.6; Z99.2 Diabetes E11.9 Hypertension I10 Secondary hyperparathyroidism of renal origin N25.81 Anemia due to chronic kidney disease N18.5; D63.1 Chronic kidney disease stage: stage 5, not on chronic dialysis (1) Anemia due to chronic kidney disease Chronic kidney disease stage: stage 5, not on chronic dialysis Qualified Code(s): N18.5 - Chronic kidney disease, stage 5; D63.1 - Anemia in chronic kidney disease
[2022-07-03] MEDS: ATORVASTATIN 20 MG TAB PO SCH (20:22)
[2022-07-03] MEDS: carvediloL 3.125 MG TAB PO SCH (20:22)
[2022-07-04] MEDS: IBUPROFEN 200 MG TAB PO PRN ×2 (00:04→23:29)
[2022-07-04] MEDS: HEPARIN SOD 5,000 UNIT/0.5 ML VIAL SQ SCH ×3 (06:21→21:16)
[2022-07-04 07:46] LABS: BUN Creatinine Ratio 10.5 (10-20); Calcium 8.9 mg/dl (8.5-10.1); Creatinine Clr Calc Pharmacy 21.9 ml/min; Est GFR (African American) 13.1 ml/min; Est GFR (Non-African American) 11.3 ml/min; Potassium 4.1 mmol/L (3.5-5.1)
--- NOTE | 2022-07-04 08:11 | Hospitalist Progress Note ---
Date of Service July 04, 2022 Assessment & Plan (1) Physical deconditioning: Plan: Medically stable for discharge pending placement at this time. Patient here for generalized weakness and deconditioning due to his chronic medical conditions and hyperphosphatemia due to him not taking phosphate binders cause itchy skin and multiple wounds all over his body. - Patient complains of Generalized weakness and 40 pound weight loss, has been an ongoing issue for 6 months, but has been acutely worse 3-4 days prior to presentation and had anorexia - Patient states that his appetite has increased and currently eating well - No evidence of PNA on chest x ray, but some suggestion of congestion. - Suspect this is a chronic issue, possibly exacerbated by a wound infection as he has several open wounds on his right lower extremity. - Blood cultures negative. Procalcitonin downtrending but may be chronically raised due to ESRD. Completed a 7 day course of daptomycin. 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 - Right lower extremity has several open circumferential wounds measuring several mm - several cm in diameter, dorsalis pedis and posterior tibialis pulses are not palpable on right, per review of wound care note from earlier last month this is not new. His pulses were weak but detectable with Doppler then. - He is not on any antiplatelets or statins. Started on ASA 81 mg and Lipitor 20mg. - Wound care consulted, appreciate recs - He had arterial duplex done at [facility] in [place], it shows evidence of severe PAD - Vascular on consult, no plans for revascularization (3) Calciphylaxis cutis: Plan: possibly the cause of his non healing ulcers and leg lesions Skin biopsy performed but needs deeper biopsy per surgery - patient states he is reluctant to have a repeat skin biopsy (4) Weakness: Plan: - To be discharged to [facility] likely tomorrow - PT recommending less than 3 hours combined therapy daily (5) Elevated troponin: Plan: - Troponin elevated secondary to ESRD TTE - global hypokinesis 35-40% with severe hypokinesis of anterolateral wall. No chest pain - appreciate cardiology consult - discussed care with Dr Vega Per cardiology note - At some point it may be reasonable to further evaluate his coronary artery status, but in the absence of any symptoms this is nonurgent. An outpatient Lexiscan could be obtained, dobutamine stress echocardiogram is less desirable given his poor echocardiographic windows. Was started on ASA 81 mg and Lipitor 20mg (6) Coronary artery disease: Plan: - Per PCP note from April, patient denies history of this, no current medications. Cannot find any cardiology notes, he is declined echoes and referral to cardiology in the past. - Will have on a low-salt/DM diet while admitted. Given old regional wall motion abnormalities suspect he has had an OR in the past Start ASA + low dose carvedilol and low dose statin - Lipitor 20mg (7) Chronic diastolic congestive heart failure: Plan: -Fluid status managed by hemodialysis (8) End-stage renal disease on hemodialysis: Plan: - Nephrology on consult - Continue HD - Dialysis tomorrow (Friday) and to have dialysis changed to Friday, and Friday at [facility] (9) Diabetes: Plan: - Type II diabetic, stop Lantus - does not appear to need this, hypoglycemic here. Suspect he no longer requires treatment for this given his weight loss and current glucose values Novolog switch to correction only - HbA1C not accurate in setting of ESRD on dialysis - DM2/low-salt diet. (10) Hypertension: Plan: -BP 127/67 -Continue on Amlodipine -Continue Carvedilol 3.125 mg BID (11) Secondary hyperparathyroidism of renal origin: Plan: - Secondary to ESRD. (12) Anemia due to chronic kidney disease: Plan: - Hgb 10.3, in setting of CKD, is at patient's baseline. - Continue to monitor. - No evidence of any acute bleeding Plan - continue mgt - SCDs, heparin for VTE ppx. - Full Code. - stable for downgrade to med/surg, planning on SNF on discharge Admission and Anticipated Discharge Date Admission Date: June 26, 2022 Subjective Patient is awake sitting up in bed and he tells me he is frustrated and would like to feel better faster. He does tell me that his appetite has improved and he is able to eat well again. He denies any chest pain, SOB or dyspnea. He denies any abdominal pain, nausea or vomiting. He had a skin biopsy that was inconclusive for calciphylaxis and recommended a deeper biopsy. He is reluctant to have another skin biopsy because he wants his stump to heal so he can wear his artificial leg again and move about more freely. Patient is tentatively being discharged tomorrow to [facility] after dialysis here. Review of Systems Constitutional: + fatigue, + weakness and + weight loss Respiratory: no cough, no chest congestion, no dyspnea and no sputum production Cardiovascular: no chest pain, no dyspnea, no lightheadedness and no syncope Gastrointestinal: no abdominal pain, no nausea and no vomiting Integumentary: + lesions and + wounds; no pruritus and no yellowing of the skin Physical Exam Constitutional: WD/WN, vitals as above Respiratory: normal respiratory effort, lungs clear to auscultation Cardiovascular: RRR, no murmur, no edema Gastrointestinal (Abdomen): normal bowel sounds, soft, nontender, no hepatosplenomegaly Musculoskeletal: Left BKA Skin: Circumferential lesions - lower extremities Results & Data Results & Data ([facility]) Vital Signs (Past 12 Hours) Vital Signs Temp Pulse Pulse Resp BP Pulse Ox O2 Del Method 07/04/22 02:30 Room Air 07/04/22 02:02 36.6 C 79 18 142/73 H 98 Room Air 07/03/22 23:16 37.0 C 82 18 151/79 H 98 Room Air 07/03/22 21:30 Room Air Laboratory Results Abnormal lab results 07/03/22 07/03/22 07/04/22 Range/Units 16:16 20:28 07:00 Sodium 135 L (136-145) mmol/L Chloride 94 L (98-107) mmol/L BUN 54 H D (6-23) mg/dl Creatinine 5.13 H* D (0.6-1.4) mg/dl POC Glucose 128 H 113 H (70-99) mg/dl 07/04/22 07/04/22 Range/Units 08:46 11:54 Sodium (136-145) mmol/L Chloride (98-107) mmol/L BUN (6-23) mg/dl Creatinine (0.6-1.4) mg/dl POC Glucose 100 H 134 H (70-99) mg/dl PG Care Time/CCT Total # of Minutes Spent Total Time Spent with Patient: Total time spent is greater than 50% in coordination of care (as documented) at patient's floor/unit and/or counseling patient: Coding Level of Care Code 76539 Subseq Hosp Care Lvl 3 Diagnoses Physical deconditioning R53.81 PAD (peripheral artery disease) I73.9 Calciphylaxis cutis E83.59 Weakness R53.1 Elevated troponin R77.8 Coronary artery disease I25.10 Chronic diastolic congestive heart failure I50.32 End-stage renal disease on hemodialysis N18.6; Z99.2 Diabetes E11.9 Hypertension I10 Secondary hyperparathyroidism of renal origin N25.81 Anemia due to chronic kidney disease N18.5; D63.1 Chronic kidney disease stage: stage 5, not on chronic dialysis Time Spent (min) 25 (1) Anemia due to chronic kidney disease Chronic kidney disease stage: stage 5, not on chronic dialysis Qualified Code(s): N18.5 - Chronic kidney disease, stage 5; D63.1 - Anemia in chronic kidney disease
[2022-07-04] MEDS: NEPHROCAPS PO SCH (08:52)
[2022-07-04] MEDS: amLODIPine BESYLATE 5 MG TAB PO SCH (08:52)
[2022-07-04] MEDS: carvediloL 3.125 MG TAB PO SCH ×2 (08:52→21:15)
[2022-07-04] MEDS: SEVELAMER HCL 800 MG TABLET PO SCH ×3 (08:53→17:41)
[2022-07-04] MEDS: ASPIRIN 81 MG ECTAB PO SCH (08:53)
[2022-07-04] MEDS: DOCUSATE SODIUM 100 MG CAP PO SCH ×2 (08:53→21:27)
[2022-07-04] MEDS: POLYETHYLENE (MIRALAX) 17 GM PACK PO SCH ×3 (08:55→21:16)
[2022-07-04] MEDS: INSULIN ASPART PER UNIT SC SCH ×4 (09:36→21:24)
--- NOTE | 2022-07-04 11:39 | Nephrology Progress Note ---
Date of Service July 04, 2022 Assessment & Plan (1) End-stage renal disease on hemodialysis: (2) PAD (peripheral artery disease): (3) Weakness: (4) Open leg wound: (5) Secondary hyperparathyroidism of renal origin: (6) Anemia due to chronic kidney disease: Plan ESRD on HD due to DKD, hypertensive nephrosclerosis and underlying vascular disease, on HD TTS at [facility] (4.5hr, 2K 2.5Ca Na 137, HCO3 38, F-250 NR, 14 g needles, Qb500 Qd 800, EDW 130.5 Kg, heparin 3000 unit bolus + 2500 units q1 hr, L forearm AVF, mircera 50 mcg q4wk - last dose 06/14).Admitted with Generalized weakness, repeated falls at home and lower extremity multiple nonhealing ischemic ulcer both in right lower extremity as well as seen left BKA stump. Has been following with Wound Care. Evaluated by vascular surgery, had Doppler showing decent blood flow to right lower extremity, atherosclerotic disease without any focal lesion. Skin biopsy negative for calciphylaxis, although recommended deeper tissue biopsy. Blood pressure better, electrolyte acceptable. Possible DC to Rehab tomorrow. Completed antibiotic. -- follow low phosphorus diet, continue on phosphate binder with meal -- continue on amlodipine 10 mg daily, give in pm on dialysis days. -- Dose medications for eGFR less than 10, left arm nephrology precaution -- Epogen 72860 units given on 07/03/22, renal vitamin once a day. Will follow. Admission and Anticipated Discharge Date Admission Date: June 26, 2022 Joseline Esteves was seen and evaluated this morning. He denies shortness of breath or chest pain. Blood pressure improved. Electrolyte acceptable. Review of Systems Review of Systems: Detailed review of system was otherwise unremarkable. Physical Exam Constitutional: WD/WN, vitals as above + ill appearing; no acute distress Cardiovascular: Rate/Rhythm: regular rate and regular rhythm Heart Sounds: normal S1 and normal S2 Extremities: + edema and + AV fistula (with + thrill and Bruit) Skin: + lesion, + ulcer, + skin atrophy and + erythema Neurologic: no focal motor deficits Psychiatric: Orientation: alert and oriented x 3 Results & Data ([facility]) Vital Signs (Past 12 Hours) Vital Signs Temp Pulse Pulse Resp BP Pulse Ox O2 Del Method 07/04/22 10:40 Room Air 07/04/22 08:32 36.5 C 81 18 144/95 H 99 Room Air 07/04/22 02:30 Room Air 07/04/22 02:02 36.6 C 79 18 142/73 H 98 Room Air PG Care Time/CCT Total # of Minutes Spent Total Time Spent with Patient: Total time spent is greater than 50% in coordination of care (as documented) at patient's floor/unit and/or counseling patient: Coding Level of Care Code 80383 Subseq Hosp Care Lvl 2 Diagnoses End-stage renal disease on hemodialysis N18.6; Z99.2 PAD (peripheral artery disease) I73.9 Weakness R53.1 Open leg wound S81.809A Secondary hyperparathyroidism of renal origin N25.81 Anemia due to chronic kidney disease N18.5; D63.1 Chronic kidney disease stage: stage 5, not on chronic dialysis (1) Anemia due to chronic kidney disease Chronic kidney disease stage: stage 5, not on chronic dialysis Qualified Code(s): N18.5 - Chronic kidney disease, stage 5; D63.1 - Anemia in chronic kidney disease
--- NOTE | 2022-07-04 17:40 | Cardiology Progress Note ---
Date of Service July 04, 2022 Assessment & Plan (1) Hypertension: (2) Heart failure with mid-range ejection fraction: (3) Multiple risk factors for coronary artery disease: (4) End-stage renal disease on hemodialysis: (5) PAD (peripheral artery disease): (6) Diabetes: Plan Hemodynamics improving on carvedilol with improved BP and without bradycardia. Has clonidine available on a as needed basis for any acute BP spikes, has not required this as yet. Additional medications for ischemic/hypertensive cardiomyopathy could be added and titrated as outpatient (ARB or Entresto). Will pursue outpatient ischemic work-up with future Lexiscan myocardial perfusion study. Admission and Anticipated Discharge Date Admission Date: June 26, 2022 Subjective Patient asymptomatic, denies chest pain, dyspnea, or palpitations. His BP is improving, his last 5 readings were normotensive or minimally hypertensive. Physical Exam Physical Exam: No distress. BP currently normotensive. Pulse 74 bpm and regular. Skin: Multiple lesions both lower extremities. HEENT: unremarkable. Neck: Jugulovenous pulse at the clavicle at 90 degrees, no obvious carotid bruits. Lungs: Mildly decreased breath sounds but generally clear. No obvious crackles or wheezes, no accessory muscle use. Cardiac: regular rhythm, faint heart tones, no obvious murmur or gallop. Abdomen: benign. Extremities: Left BKA, right leg with barely palpable dorsalis pedis pulse but warm. Marked rubor. Bandaged lesions. Neurologic: normal affect and conversation, nonfocal. Results & Data ([facility]) Vital Signs (Past 12 Hours) Vital Signs Temp Pulse Resp BP Pulse Ox O2 Del Method 07/04/22 15:23 98.1 F 74 17 127/67 100 Room Air 07/04/22 10:40 Room Air 07/04/22 08:32 97.7 F 81 18 144/95 H 99 Room Air Laboratory Results Sodium 135, chloride 94, potassium 4.1, BUN 54, creatinine 5.13. PG Care Time/CCT Total # of Minutes Spent Total Time Spent with Patient: Total time spent is greater than 50% in coordination of care (as documented) at patient's floor/unit and/or counseling patient: Coding Level of Care Code 11139 Subseq Hosp Care Lvl 3 Diagnoses Hypertension I10 Heart failure with mid-range ejection fraction I50.22 Multiple risk factors for coronary artery disease Z91.89 End-stage renal disease on hemodialysis N18.6; Z99.2 PAD (peripheral artery disease) I73.9 Diabetes E11.9
[2022-07-04] MEDS: ATORVASTATIN 20 MG TAB PO SCH (21:15)
[2022-07-05] MEDS: HEPARIN SOD 5,000 UNIT/0.5 ML VIAL SQ SCH ×3 (05:14→21:32)
[2022-07-05] MEDS: SEVELAMER HCL 800 MG TABLET PO SCH ×3 (07:37→17:52)
[2022-07-05] MEDS ORDERED: EPOETIN ALFA 10,000 UNITS/ML VIAL IV STA (10:23)
--- NOTE | 2022-07-05 10:23 | Nephrology Progress Note ---
Date of Service July 05, 2022 Assessment & Plan (1) End-stage renal disease on hemodialysis: (2) PAD (peripheral artery disease): (3) Weakness: (4) Open leg wound: (5) Secondary hyperparathyroidism of renal origin: (6) Anemia due to chronic kidney disease: Plan ESRD on HD due to DKD, hypertensive nephrosclerosis and underlying vascular disease, on HD TTS at [facility] (4.5hr, 2K 2.5Ca Na 137, HCO3 38, F-250 NR, 14 g needles, Qb500 Qd 800, EDW 130.5 Kg, heparin 3000 unit bolus + 2500 units q1 hr, L forearm AVF, mircera 50 mcg q4wk - last dose 06/14).Admitted with Generalized weakness, repeated falls at home and lower extremity multiple nonhealing ischemic ulcer both in right lower extremity as well as seen left BKA stump. Has been following with Wound Care. Evaluated by vascular surgery, had Doppler showing decent blood flow to right lower extremity, atherosclerotic disease without any focal lesion. Skin biopsy negative for calciphylaxis, although recommended deeper tissue biopsy. Blood pressure better, electrolyte acceptable. Possible DC to Rehab later today. Completed antibiotic. -- tolerating HD, aim for 4.5 L UF. -- follow low phosphorus diet, continue on phosphate binder with meal -- continue on amlodipine 10 mg daily, give in pm on dialysis days. -- Dose medications for eGFR less than 10, left arm nephrology precaution -- Epogen 95089 units today, renal vitamin once a day. Will follow. Admission and Anticipated Discharge Date Admission Date: June 26, 2022 Subjective Danielito was seen and evaluated this morning during dialysis. He denies shortness of breath or chest pain. Blood pressure improved. Electrolyte acceptable. Review of Systems Review of Systems: Detailed review of system was otherwise unremarkable. Physical Exam Constitutional: WD/WN, vitals as above + ill appearing; no acute distress Eyes: + anicteric sclerae ENMT: Ears: no hearing impairment Respiratory: Auscultation: lungs clear to auscultation bilaterally Cardiovascular: Rate/Rhythm: regular rate and regular rhythm Heart Sounds: normal S1 and normal S2 Extremities: + edema and + AV fistula (with + thrill and Bruit) Skin: + lesion, + ulcer, + skin atrophy and + erythema Neurologic: no focal motor deficits Psychiatric: Orientation: alert and oriented x 3 Results & Data ([facility]) Vital Signs (Past 12 Hours) Vital Signs Temp Pulse Pulse Pulse Resp BP BP 07/05/22 10:00 73 137/81 07/05/22 09:30 74 128/80 07/05/22 09:00 70 151/76 H 07/05/22 08:58 70 121/70 07/05/22 08:48 36.3 C L 70 07/05/22 08:08 36.3 C L 71 20 170/101 H Pulse Ox O2 Del Method 07/05/22 10:00 07/05/22 09:30 07/05/22 09:00 07/05/22 08:58 07/05/22 08:48 07/05/22 08:08 99 Room Air PG Care Time/CCT Total # of Minutes Spent Total Time Spent with Patient: Total time spent is greater than 50% in coordination of care (as documented) at patient's floor/unit and/or counseling patient: Coding Level of Care Code 88848 Subseq Hosp Care Lvl 3 Diagnoses End-stage renal disease on hemodialysis N18.6; Z99.2 PAD (peripheral artery disease) I73.9 Weakness R53.1 Open leg wound S81.809A Secondary hyperparathyroidism of renal origin N25.81 Anemia due to chronic kidney disease N18.5; D63.1 Chronic kidney disease stage: stage 5, not on chronic dialysis (1) Anemia due to chronic kidney disease Chronic kidney disease stage: stage 5, not on chronic dialysis Qualified Code(s): N18.5 - Chronic kidney disease, stage 5; D63.1 - Anemia in chronic kidney disease
[2022-07-05] MEDS: INSULIN ASPART PER UNIT SC SCH ×4 (13:25→20:11)
[2022-07-05] MEDS: ASPIRIN 81 MG ECTAB PO SCH (14:30)
[2022-07-05] MEDS: NEPHROCAPS PO SCH (14:31)
[2022-07-05] MEDS: amLODIPine BESYLATE 5 MG TAB PO SCH (14:31)
[2022-07-05] MEDS: carvediloL 3.125 MG TAB PO SCH ×2 (14:31→21:31)
[2022-07-05] MEDS: POLYETHYLENE (MIRALAX) 17 GM PACK PO SCH ×3 (14:33→21:33)
[2022-07-05] MEDS: DOCUSATE SODIUM 100 MG CAP PO SCH ×2 (14:35→21:33)
--- NOTE | 2022-07-05 15:40 | Hospitalist Progress Note ---
Date of Service July 05, 2022 Assessment & Plan (1) Physical deconditioning: Plan: Medically stable for discharge pending placement at this time. Patient here for generalized weakness and deconditioning due to his chronic medical conditions and hyperphosphatemia due to him not taking phosphate binders cause itchy skin and multiple wounds all over his body. - Patient complains of Generalized weakness and 40 pound weight loss, has been an ongoing issue for 6 months, but has been acutely worse 3-4 days prior to presentation and had anorexia - Patient states that his appetite has increased and currently eating well - No evidence of PNA on chest x ray, but some suggestion of congestion. - Suspect this is a chronic issue, possibly exacerbated by a wound infection as he has several open wounds on his right lower extremity. - Blood cultures negative. Procalcitonin downtrending but may be chronically raised due to ESRD. Completed a 7 day course of daptomycin. No current cellulitis appreciated but certainly at risk given his extensive wounds - Weight loss concerning for cancerous cause although limited intervention would be performed given his overall medical conditions will defer workup to outpatient providers- - Awaiting authorization from patient's insurance to send to [facility] (2) PAD (peripheral artery disease): Plan: -Patient with a history of severe PAD - 4 years s/p left BKA. - Right lower extremity has several open circumferential wounds measuring several mm - several cm in diameter, dorsalis pedis and posterior tibialis pulses are not palpable on right, per review of wound care note from earlier last month this is not new. His pulses were weak but detectable with Doppler then. - He is not on any antiplatelets or statins. Started on ASA 81 mg and Lipitor 20mg. - Wound care consulted, appreciate recs - He had arterial duplex done at [facility] in [place], it shows evidence of severe PAD - Vascular on consult, no plans for revascularization (3) Calciphylaxis cutis: Plan: possibly the cause of his non healing ulcers and leg lesions Skin biopsy performed but needs deeper biopsy per surgery - patient states he is reluctant to have a repeat skin biopsy (4) Weakness: Plan: - To be discharged to [facility], [facility] likely tomorrow - PT recommending less than 3 hours combined therapy daily (5) Elevated troponin: Plan: - Troponin elevated secondary to ESRD TTE - global hypokinesis 35-40% with severe hypokinesis of anterolateral wall. No chest pain - appreciate cardiology consult - discussed care with Dr Vega Per cardiology note - At some point it may be reasonable to further evaluate his coronary artery status, but in the absence of any symptoms this is nonurgent. An outpatient Lexiscan could be obtained, dobutamine stress echocardiogram is less desirable given his poor echocardiographic windows. Was started on ASA 81 mg and Lipitor 20mg (6) Coronary artery disease: Plan: - Per PCP note from April, patient denies history of this, no current medications. Cannot find any cardiology notes, he is declined echoes and referral to cardiology in the past. - Will have on a low-salt/DM diet while admitted. Given old regional wall motion abnormalities suspect he has had an IA in the past Start ASA + low dose carvedilol and low dose statin - Lipitor 20mg (7) Chronic diastolic congestive heart failure: Plan: -Fluid status managed by hemodialysis (8) End-stage renal disease on hemodialysis: Plan: - Nephrology on consult - Continue HD - Dialysis tomorrow (Friday) and to have dialysis changed to Friday, and Friday at [facility] (9) Diabetes: Plan: - Type II diabetic, stop Lantus - does not appear to need this, hypoglycemic here. Suspect he no longer requires treatment for this given his weight loss and current glucose values Novolog switch to correction only - HbA1C not accurate in setting of ESRD on dialysis - DM2/low-salt diet. (10) Hypertension: Plan: -BP 127/67 -Continue on Amlodipine -Continue Carvedilol 3.125 mg BID (11) Secondary hyperparathyroidism of renal origin: Plan: - Secondary to ESRD. (12) Anemia due to chronic kidney disease: Plan: - Hgb 10.3, in setting of CKD, is at patient's baseline. - Continue to monitor. - No evidence of any acute bleeding Plan - continue mgt - SCDs, heparin for VTE ppx. - Full Code. - stable for downgrade to med/surg, planning on SNF on discharge Admission and Anticipated Discharge Date Admission Date: June 26, 2022 Subjective Patient seen when he arrived back to the floor from dialysis. He denies any abdominal, chest pain or nausea or vomiting. He is only complaining of being tired from dialysis. Spoke withcase management and they are awaiting approval from [facility] to transfer patient to [facility]. Review of Systems Review of Systems: All systems reviewed are negative, apart from the ones contained in the history. Constitutional: + fatigue, + weakness and + weight loss Respiratory: no cough, no chest congestion, no dyspnea and no sputum production Cardiovascular: no chest pain, no dyspnea, no lightheadedness and no syncope Gastrointestinal: no abdominal pain, no nausea and no vomiting Integumentary: + lesions and + wounds; no pruritus and no yellowing of the skin Physical Exam Constitutional: WD/WN, vitals as above Respiratory: normal respiratory effort, lungs clear to auscultation Cardiovascular: RRR, no murmur, no edema Gastrointestinal (Abdomen): normal bowel sounds, soft, nontender, no hepatosplenomegaly Results & Data Results & Data ([facility]) Vital Signs (Past 12 Hours) Vital Signs Temp Pulse Pulse Pulse Resp BP BP 07/05/22 13:34 36.4 C L 77 153/82 H 07/05/22 13:00 74 148/86 H 07/05/22 12:30 77 152/90 H 07/05/22 12:00 77 152/73 H 07/05/22 07:40 07/05/22 11:30 76 137/75 07/05/22 11:00 78 141/90 H 07/05/22 10:30 74 124/79 07/05/22 10:00 73 137/81 07/05/22 09:30 74 128/80 07/05/22 09:00 70 151/76 H 07/05/22 08:58 70 121/70 07/05/22 08:48 36.3 C L 70 07/05/22 08:08 36.3 C L 71 20 170/101 H Pulse Ox O2 Del Method 07/05/22 13:34 07/05/22 13:00 07/05/22 12:30 07/05/22 12:00 07/05/22 07:40 Room Air 07/05/22 11:30 07/05/22 11:00 07/05/22 10:30 07/05/22 10:00 07/05/22 09:30 07/05/22 09:00 07/05/22 08:58 07/05/22 08:48 07/05/22 08:08 99 Room Air Laboratory Results Abnormal lab results 07/04/22 07/04/22 07/05/22 Range/Units 17:19 20:49 08:27 POC Glucose 121 H 123 H 150 H (70-99) mg/dl PG Care Time/CCT Total # of Minutes Spent Total Time Spent with Patient: Total time spent is greater than 50% in coordination of care (as documented) at patient's floor/unit and/or counseling patient: Coding Level of Care Code 58652 Subseq Hosp Care Lvl 3 Diagnoses Physical deconditioning R53.81 PAD (peripheral artery disease) I73.9 Calciphylaxis cutis E83.59 Weakness R53.1 Elevated troponin R77.8 Coronary artery disease I25.10 Chronic diastolic congestive heart failure I50.32 End-stage renal disease on hemodialysis N18.6; Z99.2 Diabetes E11.9 Hypertension I10 Secondary hyperparathyroidism of renal origin N25.81 Anemia due to chronic kidney disease N18.5; D63.1 Chronic kidney disease stage: stage 5, not on chronic dialysis Time Spent (min) 15 (1) Anemia due to chronic kidney disease Chronic kidney disease stage: stage 5, not on chronic dialysis Qualified Code(s): N18.5 - Chronic kidney disease, stage 5; D63.1 - Anemia in chronic kidney disease
[2022-07-05 16:32] LABS: Albumin Level 3.9 gm/dl (3.4-5.0); BUN Creatinine Ratio 8.6 (10-20); Calcium 9.2 mg/dl (8.5-10.1); Creatinine Clr Calc Pharmacy 30.7 ml/min; Est GFR (Non-African American) 17.3 ml/min; Phosphorus 3.4 mg/dl (2.5-4.9); Potassium 3.8 mmol/L (3.5-5.1)
[2022-07-05] MEDS: ATORVASTATIN 20 MG TAB PO SCH (21:32)
[2022-07-06] MEDS: IBUPROFEN 200 MG TAB PO PRN ×2 (00:10→23:35)
[2022-07-06] MEDS: HEPARIN SOD 5,000 UNIT/0.5 ML VIAL SQ SCH ×3 (04:48→19:38)
[2022-07-06 07:09] LABS: Hematocrit (blood only) 33.5 % (40.1-51.0); Hemoglobin 10.5 g/dl (14.0-18.0); Mean Corpuscular Hemoglobin 29.2 pg (25.0-34.0); Mean Corpuscular Hgb Conc 31.3 g/dL (32.0-36.0); Mean Corpuscular Volume 93.1 fL (80.0-100.0); Mean Platelet Volume 10.8 fL (9.4-12.4); Platelet Count 208 K/uL (130-400); RDW Coefficient of Variation 16.8 % (11.5-14.5); RDW Standard Deviation 57.1 fL (36.4-46.3); White Blood Count 7.43 K/ul (4.8-10.8)
[2022-07-06 07:39] LABS: BUN Creatinine Ratio 11.4 (10-20); Calcium 9.1 mg/dl (8.5-10.1); Creatinine Clr Calc Pharmacy 22.2 ml/min; Est GFR (African American) 13.5 ml/min; Est GFR (Non-African American) 11.7 ml/min; Potassium 4.4 mmol/L (3.5-5.1)
[2022-07-06] MEDS: ASPIRIN 81 MG ECTAB PO SCH (07:57)
[2022-07-06] MEDS: amLODIPine BESYLATE 5 MG TAB PO SCH (07:58)
[2022-07-06] MEDS: NEPHROCAPS PO SCH (07:58)
[2022-07-06] MEDS: POLYETHYLENE (MIRALAX) 17 GM PACK PO SCH ×3 (07:58→19:37)
[2022-07-06] MEDS: carvediloL 3.125 MG TAB PO SCH ×2 (07:58→19:37)
[2022-07-06] MEDS: SEVELAMER HCL 800 MG TABLET PO SCH ×3 (07:58→17:39)
[2022-07-06] MEDS: DOCUSATE SODIUM 100 MG CAP PO SCH ×2 (07:58→19:37)
--- NOTE | 2022-07-06 08:34 | Hospitalist Progress Note ---
Date of Service July 06, 2022 Assessment & Plan (1) Physical deconditioning: Plan: Medically stable for discharge pending placement at this time. Patient here for generalized weakness and deconditioning due to his chronic medical conditions and hyperphosphatemia due to him not taking phosphate binders cause itchy skin and multiple wounds all over his body. - Patient complains of Generalized weakness and 40 pound weight loss, has been an ongoing issue for 6 months, but has been acutely worse 3-4 days prior to presentation and had anorexia - Patient states that his appetite has increased and currently eating well - No evidence of PNA on chest x ray, but some suggestion of congestion. - Suspect this is a chronic issue, possibly exacerbated by a wound infection as he has several open wounds on his right lower extremity. - Blood cultures negative. Procalcitonin downtrending but may be chronically raised due to ESRD. Completed a 7 day course of daptomycin. No current cellulitis appreciated but certainly at risk given his extensive wounds - Weight loss concerning for cancerous cause although limited intervention would be performed given his overall medical conditions will defer workup to outpatient providers- - Awaiting authorization from patient's insurance to send to [facility] - [employer] denied SNF. Awaiting a call back to appeal. 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 - Right lower extremity has several open circumferential wounds measuring several mm - several cm in diameter, dorsalis pedis and posterior tibialis pulses are not palpable on right, per review of wound care note from earlier last month this is not new. His pulses were weak but detectable with Doppler then. - He is not on any antiplatelets or statins. Started on ASA 81 mg and Lipitor 20mg. - Wound care consulted, appreciate recs - He had arterial duplex done at [facility] in [place], it shows evidence of severe PAD - Vascular on consult, no plans for revascularization (3) Calciphylaxis cutis: Plan: possibly the cause of his non healing ulcers and leg lesions Skin biopsy performed but needs deeper biopsy per surgery - patient states he is reluctant to have a repeat skin biopsy (4) Weakness: Plan: - To be discharged to [facility], [facility] likely tomorrow - PT recommending less than 3 hours combined therapy daily (5) Elevated troponin: Plan: - Troponin elevated secondary to ESRD TTE - global hypokinesis 35-40% with severe hypokinesis of anterolateral wall. No chest pain - appreciate cardiology consult - discussed care with Dr Vega Per cardiology note - At some point it may be reasonable to further evaluate his coronary artery status, but in the absence of any symptoms this is nonurgent. An outpatient Lexiscan could be obtained, dobutamine stress echocardiogram is less desirable given his poor echocardiographic windows. Was started on ASA 81 mg and Lipitor 20mg (6) Coronary artery disease: Plan: - Per PCP note from April, patient denies history of this, no current medications. Cannot find any cardiology notes, he is declined echoes and referral to cardiology in the past. - Will have on a low-salt/DM diet while admitted. Given old regional wall motion abnormalities suspect he has had an CA in the past Start ASA + low dose carvedilol and low dose statin - Lipitor 20mg (7) Chronic diastolic congestive heart failure: Plan: -Fluid status managed by hemodialysis (8) End-stage renal disease on hemodialysis: Plan: - Nephrology on consult - Continue HD - Dialysis tomorrow (Friday) and to have dialysis changed to Friday, and Friday at [facility] (9) Diabetes: Plan: - Type II diabetic, stop Lantus - does not appear to need this, hypoglycemic here. Suspect he no longer requires treatment for this given his weight loss and current glucose values Novolog switch to correction only - HbA1C not accurate in setting of ESRD on dialysis - DM2/low-salt diet. (10) Hypertension: Plan: -BP 127/67 -Continue on Amlodipine -Continue Carvedilol 3.125 mg BID (11) Secondary hyperparathyroidism of renal origin: Plan: - Secondary to ESRD. (12) Anemia due to chronic kidney disease: Plan: - Hgb 10.3, in setting of CKD, is at patient's baseline. - Continue to monitor. - No evidence of any acute bleeding Plan - continue mgt - SCDs, heparin for VTE ppx. - Full Code. - stable for downgrade to med/surg, planning on SNF on discharge - Awaiting a call back from [facility] to do an appeal - Case # [id number] Admission and Anticipated Discharge Date Admission Date: June 26, 2022 Subjective Patient is awake in bed and has no new complaints today. I advised him of the need to do an appeal to his [employer] insurance and they are not calling me until Friday. Review of Systems Review of Systems: All systems reviewed are negative, apart from the ones contained in the history. Constitutional: + fatigue, + weakness and + weight loss Respiratory: no cough, no chest congestion, no dyspnea and no sputum production Cardiovascular: no chest pain, no dyspnea, no lightheadedness and no syncope Gastrointestinal: no abdominal pain, no nausea and no vomiting Integumentary: + lesions and + wounds; no pruritus and no yellowing of the skin Physical Exam Constitutional: WD/WN, vitals as above Respiratory: normal respiratory effort, lungs clear to auscultation Cardiovascular: RRR, no murmur, no edema Gastrointestinal (Abdomen): normal bowel sounds, soft, nontender, no hepatosplenomegaly Skin: circumferential lesions on left BKA stump, making it hard for patient to wear his prosthesis and thus hard to ambulate Results & Data Results & Data ([facility]) Vital Signs (Past 12 Hours) Vital Signs Temp Pulse Resp BP Pulse Ox O2 Del Method 07/05/22 23:26 36.6 C 74 18 130/70 95 Room Air Laboratory Results Abnormal lab results 07/05/22 07/05/22 07/05/22 Range/Units 08:27 15:48 17:16 RBC (4.63-6.08) M/uL Hgb (14.0-18.0) g/dl Hct (40.1-51.0) % MCHC (32.0-36.0) g/dL RDW Std Deviation (36.4-46.3) fL RDW Coeff of Dorcas (11.5-14.5) % Sodium 134 L (136-145) mmol/L Chloride 94 L (98-107) mmol/L BUN 31 H D (6-23) mg/dl Creatinine 3.61 H D (0.6-1.4) mg/dl BUN/Creatinine Ratio 8.6 L (10-20) Glucose 110 H (70-99(Fasting)) mg/dl POC Glucose 150 H 133 H (70-99) mg/dl 07/05/22 07/06/22 07/06/22 Range/Units 20:05 06:55 06:55 RBC 3.60 L (4.63-6.08) M/uL Hgb 10.5 L (14.0-18.0) g/dl Hct 33.5 L (40.1-51.0) % MCHC 31.3 L (32.0-36.0) g/dL RDW Std Deviation 57.1 H (36.4-46.3) fL RDW Coeff of Dorcas 16.8 H (11.5-14.5) % Sodium 134 L (136-145) mmol/L Chloride 93 L (98-107) mmol/L BUN 57 H D (6-23) mg/dl Creatinine 4.99 H* D (0.6-1.4) mg/dl BUN/Creatinine Ratio (10-20) Glucose 119 H (70-99(Fasting)) mg/dl POC Glucose 112 H (70-99) mg/dl PG Care Time/CCT Total # of Minutes Spent Total Time Spent with Patient: Total time spent is greater than 50% in coordination of care (as documented) at patient's floor/unit and/or counseling patient: Coding Level of Care Code 95574 Subseq Hosp Care Lvl 1 Diagnoses Physical deconditioning R53.81 PAD (peripheral artery disease) I73.9 Calciphylaxis cutis E83.59 Weakness R53.1 Elevated troponin R77.8 Coronary artery disease I25.10 Chronic diastolic congestive heart failure I50.32 End-stage renal disease on hemodialysis N18.6; Z99.2 Diabetes E11.9 Hypertension I10 Secondary hyperparathyroidism of renal origin N25.81 Anemia due to chronic kidney disease N18.5; D63.1 Chronic kidney disease stage: stage 5, not on chronic dialysis Time Spent (min) 10 (1) Anemia due to chronic kidney disease Chronic kidney disease stage: stage 5, not on chronic dialysis Qualified Code(s): N18.5 - Chronic kidney disease, stage 5; D63.1 - Anemia in chronic kidney disease
[2022-07-06] MEDS: INSULIN ASPART PER UNIT SC SCH ×4 (08:58→21:01)
--- NOTE | 2022-07-06 12:55 | Nephrology Progress Note ---
Date of Service July 06, 2022 Assessment & Plan (1) End-stage renal disease on hemodialysis: Plan: ESRD attributed to DKD, hypertensive nephrosclerosis, and vascular disease. Maintained on HD TTS at [facility] (4.5hr, 2K 2.5Ca Na 137, HCO3 38, F-250 NR, 14 g needles, Qb500 Qd 800, EDW 130.5 Kg, heparin 3000 unit bolus + 2500 units q1 hr, L forearm AVF, mircera 50 mcg q4wk - last dose 06/14). Dialyzing MWF while inpatient. Completed HD yesterday without complications. BP and volume status are acceptable. Adequate clearance with treatment. AVF functioning well. Next anticipated HD will be Friday. Medications appropriately dosed for kidney function. Sevelamer QA. Renal diet. (2) Anemia due to chronic kidney disease: Plan: Hgb stable. Epogen 05574 units provided with HD yesterday. (3) Hypertension: Plan: Cardiology consultation reviewed. Improvement noted. Tolerating Coreg and amlodipine as Rx. Volume status acceptable. Low sodium diet and 1 L daily fluid restriction. Document I/O's and daily AM weight. (4) Open leg wound: Plan: Wound care evaluation reviewed. Ulcer in right lower extremity and left BKA stump.Doppler demonstrating adequate blood flow to right lower extremity with notable atherosclerotic disease without any focal lesion. Skin biopsy negative for calciphylaxis, although there was recommendation for deeper tissue biopsy which Danielito refused. (5) Weakness: Plan: Debility remains reason for continued admission pending placement for rehab. Admission and Anticipated Discharge Date Admission Date: June 26, 2022 Subjective No acute events overnight. Danielito was seen and evaluated in his hospital room this AM. He denies any complaints or concerns. Tolerated HD yesterday without complications. Review of Systems Review of Systems: All systems reviewed & are unremarkable except as noted in HPI & below Physical Exam Constitutional: + morbidly obese; no acute distress Eyes: + anicteric sclerae; no corneal abnormality ENMT: Mouth: no oral mucosal abnormality and oral mucous membranes not dry Neck: normal visual inspection and trachea midline Respiratory: normal respiratory effort Auscultation: lungs clear to auscultation bilaterally and + rales (few basilar) Cardiovascular: Rate/Rhythm: regular rate Heart Sounds: normal S1, normal S2 and + murmur Extremities: + AV fistula; no edema Musculoskeletal: Extremities: no cyanosis and no clubbing L BKA Skin: + turgor decreased and + lesion; no jaundice Neurologic: Motor/Sensory: no tremor and no asterixis Psychiatric: Orientation: alert and oriented x 3 Results & Data ([facility]) Vital Signs (Past 12 Hours) Vital Signs Temp Pulse Resp BP Pulse Ox O2 Del Method 07/06/22 07:40 36.3 C L 72 18 153/98 H 98 Room Air Laboratory Results Laboratory Results - last 24 hr 07/05/22 07/05/22 07/05/22 14:19 15:48 17:16 WBC RBC Hgb Hct MCV MCH MCHC RDW Std Deviation RDW Coeff of Dorcas Plt Count MPV Sodium 134 L Potassium 3.8 Chloride 94 L Carbon Dioxide 29 Anion Gap 11 BUN 31 H D Creatinine 3.61 H D Est Cr Clr Drug Dosing 30.7 Est GFR ( Amer) 20.0 Est GFR (Non-Af Amer) 17.3 BUN/Creatinine Ratio 8.6 L Glucose 110 H POC Glucose 77 133 H Calcium 9.2 Phosphorus 3.4 Albumin 3.9 Stool Occult Bld Scrn 07/05/22 07/05/22 07/06/22 20:05 Unknown 06:55 WBC 7.43 RBC 3.60 L Hgb 10.5 L Hct 33.5 L MCV 93.1 MCH 29.2 MCHC 31.3 L RDW Std Deviation 57.1 H RDW Coeff of Dorcas 16.8 H Plt Count 208 MPV 10.8 Sodium Potassium Chloride Carbon Dioxide Anion Gap BUN Creatinine Est Cr Clr Drug Dosing Est GFR ( Amer) Est GFR (Non-Af Amer) BUN/Creatinine Ratio Glucose POC Glucose 112 H Calcium Phosphorus Albumin Stool Occult Bld Scrn Negative 07/06/22 07/06/22 07/06/22 06:55 08:50 12:15 WBC RBC Hgb Hct MCV MCH MCHC RDW Std Deviation RDW Coeff of Dorcas Plt Count MPV Sodium 134 L Potassium 4.4 Chloride 93 L Carbon Dioxide 30 Anion Gap 11 BUN 57 H D Creatinine 4.99 H* D Est Cr Clr Drug Dosing 22.2 Est GFR ( Amer) 13.5 Est GFR (Non-Af Amer) 11.7 BUN/Creatinine Ratio 11.4 Glucose 119 H POC Glucose 113 H 133 H Calcium 9.1 Phosphorus Albumin Stool Occult Bld Scrn PG Care Time/CCT Total # of Minutes Spent Total Time Spent with Patient: Total time spent is greater than 50% in coordination of care (as documented) at patient's floor/unit and/or counseling patient: Coding Level of Care Code 48975 Subseq Hosp Care Lvl 3 Diagnoses End-stage renal disease on hemodialysis N18.6; Z99.2 Anemia due to chronic kidney disease N18.5; D63.1 Chronic kidney disease stage: stage 5, not on chronic dialysis Hypertension I10 Open leg wound S81.809A Weakness R53.1 (1) Anemia due to chronic kidney disease Chronic kidney disease stage: stage 5, not on chronic dialysis Qualified Code(s): N18.5 - Chronic kidney disease, stage 5; D63.1 - Anemia in chronic kidney disease
[2022-07-06] MEDS: ATORVASTATIN 20 MG TAB PO SCH (19:37)
[2022-07-07] MEDS: HEPARIN SOD 5,000 UNIT/0.5 ML VIAL SQ SCH ×3 (05:34→21:11)
[2022-07-07] MEDS: SEVELAMER HCL 800 MG TABLET PO SCH ×3 (07:23→17:43)
[2022-07-07] MEDS: amLODIPine BESYLATE 5 MG TAB PO SCH (07:23)
[2022-07-07] MEDS: NEPHROCAPS PO SCH (07:23)
[2022-07-07] MEDS: carvediloL 3.125 MG TAB PO SCH ×2 (07:24→20:23)
[2022-07-07] MEDS: ASPIRIN 81 MG ECTAB PO SCH (07:24)
[2022-07-07] MEDS: DOCUSATE SODIUM 100 MG CAP PO SCH ×2 (07:24→20:23)
[2022-07-07] MEDS: POLYETHYLENE (MIRALAX) 17 GM PACK PO SCH ×3 (07:24→20:23)
--- NOTE | 2022-07-07 08:19 | Hospitalist Progress Note ---
Date of Service July 07, 2022 Assessment & Plan (1) Physical deconditioning: Plan: Medically stable for discharge pending placement at this time. Patient here for generalized weakness and deconditioning due to his chronic medical conditions and hyperphosphatemia due to him not taking phosphate binders cause itchy skin and multiple wounds all over his body. - Patient complains of Generalized weakness and 40 pound weight loss, has been an ongoing issue for 6 months, but has been acutely worse 3-4 days prior to presentation and had anorexia - Patient states that his appetite has increased and currently eating well - No evidence of PNA on chest x ray, but some suggestion of congestion. - Suspect this is a chronic issue, possibly exacerbated by a wound infection as he has several open wounds on his right lower extremity. - Blood cultures negative. Procalcitonin downtrending but may be chronically raised due to ESRD. Completed a 7 day course of daptomycin. No current cellulitis appreciated but certainly at risk given his extensive wounds - Weight loss concerning for cancerous cause although limited intervention would be performed given his overall medical conditions will defer workup to outpatient providers- - Awaiting authorization from patient's insurance to send to [facility] - [employer] denied SNF. 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 - Right lower extremity has several open circumferential wounds measuring several mm - several cm in diameter, dorsalis pedis and posterior tibialis pulses are not palpable on right, per review of wound care note from earlier last month this is not new. His pulses were weak but detectable with Doppler then. - He is not on any antiplatelets or statins. Started on ASA 81 mg and Lipitor 20mg. - Wound care consulted, appreciate recs - He had arterial duplex done at [facility] in [place], it shows evidence of severe PAD - Vascular on consult, no plans for revascularization (3) Calciphylaxis cutis: Plan: possibly the cause of his non healing ulcers and leg lesions Skin biopsy performed but needs deeper biopsy per surgery - patient states he is reluctant to have a repeat skin biopsy (4) Weakness: Plan: - To be discharged to [facility], [facility] likely tomorrow - PT recommending less than 3 hours combined therapy daily (5) Elevated troponin: Plan: - Troponin elevated secondary to ESRD TTE - global hypokinesis 35-40% with severe hypokinesis of anterolateral wall. No chest pain - appreciate cardiology consult - discussed care with Dr Vega Per cardiology note - At some point it may be reasonable to further evaluate his coronary artery status, but in the absence of any symptoms this is nonurgent. An outpatient Lexiscan could be obtained, dobutamine stress echocardiogram is less desirable given his poor echocardiographic windows. Was started on ASA 81 mg and Lipitor 20mg (6) Coronary artery disease: Plan: - Per PCP note from April, patient denies history of this, no current medications. Cannot find any cardiology notes, he is declined echoes and referral to cardiology in the past. - Will have on a low-salt/DM diet while admitted. Given old regional wall motion abnormalities suspect he has had an FL in the past Start ASA + low dose carvedilol and low dose statin - Lipitor 20mg (7) Chronic diastolic congestive heart failure: Plan: -Fluid status managed by hemodialysis (8) End-stage renal disease on hemodialysis: Plan: - Nephrology on consult - Continue HD - Dialysis tomorrow (Friday) and to have dialysis changed to Friday, and Friday at [facility] - Will need dialysis again here at [facility] tomorrow and if able to go to [facility] will get dialysis on Friday (9) Diabetes: Plan: - Type II diabetic, stop Lantus - does not appear to need this, hypoglycemic here. Suspect he no longer requires treatment for this given his weight loss and current glucose values Novolog switch to correction only - HbA1C not accurate in setting of ESRD on dialysis - DM2/low-salt diet. (10) Hypertension: Plan: -BP 127/67 -Continue on Amlodipine -Continue Carvedilol 3.125 mg BID (11) Secondary hyperparathyroidism of renal origin: Plan: - Secondary to ESRD. (12) Anemia due to chronic kidney disease: Plan: - Hgb 10.3, in setting of CKD, is at patient's baseline. - Continue to monitor. - No evidence of any acute bleeding Plan - continue mgt - SCDs, heparin for VTE ppx. - Full Code. - stable for downgrade to med/surg, planning on SNF on discharge - Awaiting a call back from [facility] to do an appeal - Case # [id number] Admission and Anticipated Discharge Date Admission Date: June 26, 2022 Subjective Patient awake in bed and states he has no complaints today Review of Systems Review of Systems: All systems reviewed are negative, apart from the ones contained in the history. Constitutional: + fatigue, + weakness and + weight loss Respiratory: no cough, no chest congestion, no dyspnea and no sputum production Cardiovascular: no chest pain, no dyspnea, no lightheadedness and no syncope Gastrointestinal: no abdominal pain, no nausea and no vomiting Integumentary: + lesions and + wounds; no pruritus and no yellowing of the skin Physical Exam Constitutional: WD/WN, vitals as above Respiratory: normal respiratory effort, lungs clear to auscultation Cardiovascular: RRR, no murmur, no edema Gastrointestinal (Abdomen): normal bowel sounds, soft, nontender, no hep atosplenomegaly Results & Data Results & Data ([facility]) Vital Signs (Past 12 Hours) Vital Signs Pulse Resp BP Pulse Ox O2 Del Method 07/07/22 07:51 66 20 167/101 H 99 Room Air Laboratory Results Abnormal lab results 07/06/22 07/06/22 07/07/22 Range/Units 17:16 20:55 08:24 Sodium (136-145) mmol/L Chloride (98-107) mmol/L Anion Gap (3-11) BUN (6-23) mg/dl Creatinine (0.6-1.4) mg/dl Glucose (70-99(Fasting)) mg/dl POC Glucose 116 H 129 H 112 H (70-99) mg/dl 07/07/22 07/07/22 Range/Units 08:28 12:08 Sodium 130 L (136-145) mmol/L Chloride 90 L (98-107) mmol/L Anion Gap 13 H (3-11) BUN 88 H D (6-23) mg/dl Creatinine 6.62 H* D (0.6-1.4) mg/dl Glucose 110 H (70-99(Fasting)) mg/dl POC Glucose 127 H (70-99) mg/dl PG Care Time/CCT Total # of Minutes Spent Total Time Spent with Patient: Total time spent is greater than 50% in coordination of care (as documented) at patient's floor/unit and/or counseling patient: Coding Level of Care Code 81178 Subseq Hosp Care Lvl 1 Diagnoses Physical deconditioning R53.81 PAD (peripheral artery disease) I73.9 Calciphylaxis cutis E83.59 Weakness R53.1 Elevated troponin R77.8 Coronary artery disease I25.10 Chronic diastolic congestive heart failure I50.32 End-stage renal disease on hemodialysis N18.6; Z99.2 Diabetes E11.9 Hypertension I10 Secondary hyperparathyroidism of renal origin N25.81 Anemia due to chronic kidney disease N18.5; D63.1 Chronic kidney disease stage: stage 5, not on chronic dialysis Time Spent (min) 15 (1) Anemia due to chronic kidney disease Chronic kidney disease stage: stage 5, not on chronic dialysis Qualified Code(s): N18.5 - Chronic kidney disease, stage 5; D63.1 - Anemia in chronic kidney disease
[2022-07-07] MEDS: INSULIN ASPART PER UNIT SC SCH ×4 (08:26→21:11)
[2022-07-07 09:23] LABS: BUN Creatinine Ratio 13.3 (10-20); Calcium 9.8 mg/dl (8.5-10.1); Creatinine Clr Calc Pharmacy 16.7 ml/min; Est GFR (African American) 9.6 ml/min; Est GFR (Non-African American) 8.3 ml/min; Potassium 4.9 mmol/L (3.5-5.1)
--- NOTE | 2022-07-07 13:14 | Nephrology Progress Note ---
Date of Service July 07, 2022 Assessment & Plan (1) End-stage renal disease on hemodialysis: Plan: ESRD attributed to DKD, hypertensive nephrosclerosis, and vascular disease. Maintained on HD TTS at [facility] (4.5hr, 2K 2.5Ca Na 137, HCO3 38, F-250 NR, 14 g needles, Qb500 Qd 800, EDW 130.5 Kg, heparin 3000 unit bolus + 2500 units q1 hr, L forearm AVF, mircera 50 mcg q4wk - last dose 06/14). Dialyzing MWF while inpatient. BP and volume status are acceptable. Adequate clearance with treatment. AVF functioning well. Next anticipated HD will be tomorrow. Preliminary orders entered into EHR. Medications appropriately dosed for kidney function. Sevelamer QA. Renal diet. (2) Anemia due to chronic kidney disease: Plan: Hgb stable. Epogen 09608 units provided with HD 07/05. (3) Hypertension: Plan: Tolerating Coreg and amlodipine as Rx. Volume status acceptable. Low sodium diet and 1 L daily fluid restriction. Document I/O's and daily AM weight. (4) Open leg wound: Plan: Ulcer in right lower extremity and left BKA stump.Doppler demonstrating adequate blood flow to right lower extremity with notable atherosclerotic disease without any focal lesion. Skin biopsy negative for calciphylaxis, although there was recommendation for deeper tissue biopsy which Danielito refused. (5) Weakness: Plan: Debility remains reason for continued admission pending placement for rehab. Admission and Anticipated Discharge Date Admission Date: June 26, 2022 Subjective No acute events overnight. No complaints this AM. Resting comfortably in bed. Review of Systems Review of Systems: All systems reviewed & are unremarkable except as noted in HPI & below Physical Exam Constitutional: + morbidly obese; no acute distress Eyes: + anicteric sclerae; no corneal abnormality ENMT: Mouth: no oral mucosal abnormality and oral mucous membranes not dry Neck: normal visual inspection and trachea midline Respiratory: normal respiratory effort Auscultation: lungs clear to auscultation bilaterally and + rales (few basilar) Cardiovascular: Rate/Rhythm: regular rate Heart Sounds: normal S1, normal S2 and + murmur Extremities: + AV fistula; no edema Musculoskeletal: Extremities: no cyanosis and no clubbing Skin: + turgor decreased and + lesion; no jaundice Neurologic: Motor/Sensory: no tremor and no asterixis Psychiatric: Orientation: alert and oriented x 3 Results & Data ([facility]) Vital Signs (Past 12 Hours) Vital Signs Pulse Resp BP Pulse Ox O2 Del Method 07/07/22 07:51 66 20 167/101 H 99 Room Air Laboratory Results Laboratory Results - last 24 hr 07/06/22 07/06/22 07/07/22 17:16 20:55 08:24 Sodium Potassium Chloride Carbon Dioxide Anion Gap BUN Creatinine Est Cr Clr Drug Dosing Est GFR ( Amer) Est GFR (Non-Af Amer) BUN/Creatinine Ratio Glucose POC Glucose 116 H 129 H 112 H Calcium 07/07/22 07/07/22 08:28 12:08 Sodium 130 L Potassium 4.9 Chloride 90 L Carbon Dioxide 27 Anion Gap 13 H BUN 88 H D Creatinine 6.62 H* D Est Cr Clr Drug Dosing 16.7 Est GFR ( Amer) 9.6 Est GFR (Non-Af Amer) 8.3 BUN/Creatinine Ratio 13.3 Glucose 110 H POC Glucose 127 H Calcium 9.8 PG Care Time/CCT Total # of Minutes Spent Total Time Spent with Patient: Total time spent is greater than 50% in coordination of care (as documented) at patient's floor/unit and/or counseling patient: Coding Level of Care Code 73940 Subseq Hosp Care Lvl 3 Diagnoses End-stage renal disease on hemodialysis N18.6; Z99.2 Anemia due to chronic kidney disease N18.5; D63.1 Chronic kidney disease stage: stage 5, not on chronic dialysis Hypertension I10 Open leg wound S81.809A Weakness R53.1 (1) Anemia due to chronic kidney disease Chronic kidney disease stage: stage 5, not on chronic dialysis Qualified Code(s): N18.5 - Chronic kidney disease, stage 5; D63.1 - Anemia in chronic kidney disease
[2022-07-07] MEDS: ATORVASTATIN 20 MG TAB PO SCH (20:23)
[2022-07-07] MEDS: IBUPROFEN 200 MG TAB PO PRN (22:28)
[2022-07-08] MEDS: HEPARIN SOD 5,000 UNIT/0.5 ML VIAL SQ SCH ×4 (04:56→21:42)
[2022-07-08 07:48] LABS: Hematocrit (blood only) 30.7 % (40.1-51.0); Mean Corpuscular Hemoglobin 29.3 pg (25.0-34.0); Mean Corpuscular Hgb Conc 32.6 g/dL (32.0-36.0); Mean Platelet Volume 11.2 fL (9.4-12.4); Platelet Count 205 K/uL (130-400); RDW Coefficient of Variation 16.7 % (11.5-14.5); RDW Standard Deviation 55.1 fL (36.4-46.3); Red Blood Count 3.41 M/uL (4.63-6.08); White Blood Count 8.62 K/ul (4.8-10.8)
[2022-07-08 08:12] LABS: BUN Creatinine Ratio 13.9 (10-20); Calcium 9.3 mg/dl (8.5-10.1); Creatinine Clr Calc Pharmacy 14.4 ml/min; Est GFR (Non-African American) 6.9 ml/min; Phosphorus 7.2 mg/dl (2.5-4.9); Potassium 5.8 mmol/L (3.5-5.1)
[2022-07-08] MEDS: NEPHROCAPS PO SCH (08:30)
[2022-07-08] MEDS: SEVELAMER HCL 800 MG TABLET PO SCH ×3 (08:30→16:57)
[2022-07-08] MEDS ORDERED: HEPARIN SOD (PORCINE) 1000 UNIT/ML IV ONE (09:47)
--- NOTE | 2022-07-08 09:52 | Nephrology Progress Note ---
Date of Service July 08, 2022 Assessment & Plan (1) End-stage renal disease on hemodialysis: Plan: ESRD attributed to DKD, hypertensive nephrosclerosis, and vascular disease. Maintained on HD TTS at [facility] (4.5hr, 2K 2.5Ca Na 137, HCO3 38, F-250 NR, 14 g needles, Qb500 Qd 800, EDW 130.5 Kg, heparin 3000 unit bolus + 2500 units q1 hr, L forearm AVF). Dialyzing MWF while inpatient. Orders for HD today entered into the EHR and reviewed with RN. Tolerating treatment well. Qb at goal. Access pressures appropriate. Attempt 5-6 L UF, as tolerated. Medications appropriately dosed for kidney function. Sevelamer QAC, increased to 3 tabs QAC today. Renal diet. (2) Anemia due to chronic kidney disease: Plan: Hgb stable. Epogen 34604 units provided with HD 07/05. (3) Hypertension: Plan: Tolerating Coreg and amlodipine as Rx. Volume status acceptable. Low sodium diet and 1 L daily fluid restriction. Document I/O's and daily AM weight. (4) Open leg wound: Plan: Ulcer in right lower extremity and several left BKA stump.Doppler demonstrating adequate blood flow to right lower extremity with notable atherosclerotic disease without any focal lesion. Skin biopsy negative for calciphylaxis, although there was recommendation for deeper tissue biopsy which Danielito refused. Denies pain. (5) Weakness: Plan: Remains notably debilitated. Unable to use prosthesis. Expressed significant concerns regarding home. Admission and Anticipated Discharge Date Admission Date: June 26, 2022 Subjective No acute events overnight. Danielito was seen and evaluated during hemodialysis. He is tolerating dialysis well. Overall, he feels well. He reports minimal pain in his legs. Remains notably debilitated. Danielito reports significant concerns regarding his ability to return home. Review of Systems Review of Systems: All systems reviewed & are unremarkable except as noted in HPI & below Physical Exam Constitutional: + morbidly obese; no acute distress Eyes: + anicteric sclerae; no corneal abnormality ENMT: Mouth: no oral mucosal abnormality and oral mucous membranes not dry Neck: normal visual inspection and trachea midline Respiratory: normal respiratory effort Auscultation: lungs clear to auscultation bilaterally and + rales (few basilar) Cardiovascular: Rate/Rhythm: regular rate Heart Sounds: normal S1, normal S2 and + murmur Extremities: + AV fistula; no edema Musculoskeletal: Extremities: no cyanosis and no clubbing Skin: + turgor decreased and + lesion; no jaundice Neurologic: Motor/Sensory: no tremor and no asterixis Psychiatric: Orientation: alert and oriented x 3 Results & Data ([facility]) Vital Signs (Past 12 Hours) Vital Signs Temp Pulse Resp BP Pulse Ox O2 Del Method 07/08/22 07:47 36.6 C 77 16 142/65 H 96 Room Air Laboratory Results Laboratory Results - last 24 hr 07/07/22 07/07/22 07/07/22 12:08 17:01 21:06 WBC RBC Hgb Hct MCV MCH MCHC RDW Std Deviation RDW Coeff of Dorcas Plt Count MPV Sodium Potassium Chloride Carbon Dioxide Anion Gap BUN Creatinine Est Cr Clr Drug Dosing Est GFR ( Amer) Est GFR (Non-Af Amer) BUN/Creatinine Ratio Glucose POC Glucose 127 H 114 H 139 H Calcium Phosphorus 07/08/22 07/08/22 07/08/22 07:26 07:26 08:05 WBC 8.62 RBC 3.41 L Hgb 10.0 L Hct 30.7 L MCV 90.0 MCH 29.3 MCHC 32.6 RDW Std Deviation 55.1 H RDW Coeff of Dorcas 16.7 H Plt Count 205 MPV 11.2 Sodium 128 L Potassium 5.8 H Chloride 89 L Carbon Dioxide 25 Anion Gap 14 H BUN 107 H Creatinine 7.70 H* D Est Cr Clr Drug Dosing 14.4 Est GFR ( Amer) 8.0 Est GFR (Non-Af Amer) 6.9 BUN/Creatinine Ratio 13.9 Glucose 107 H POC Glucose 102 H Calcium 9.3 Phosphorus 7.2 H PG Care Time/CCT Total # of Minutes Spent Total Time Spent with Patient: Total time spent is greater than 50% in coordination of care (as documented) at patient's floor/unit and/or counseling patient: Coding Level of Care Code 36260 Subseq Hosp Care Lvl 3 Diagnoses End-stage renal disease on hemodialysis N18.6; Z99.2 Anemia due to chronic kidney disease N18.5; D63.1 Chronic kidney disease stage: stage 5, not on chronic dialysis Hypertension I10 Open leg wound [id number] Weakness R53.1 (1) Anemia due to chronic kidney disease Chronic kidney disease stage: stage 5, not on chronic dialysis Qualified Code(s): N18.5 - Chronic kidney disease, stage 5; D63.1 - Anemia in chronic kidney disease
[2022-07-08] MEDS: INSULIN ASPART PER UNIT SC SCH ×4 (10:24→20:28)
[2022-07-08] MEDS ORDERED: HEPARIN IV BOLUS 3,000 UNITS in SYRINGE 0 ML IV ONE (10:30)
[2022-07-08] MEDS: amLODIPine BESYLATE 5 MG TAB PO SCH (14:31)
[2022-07-08] MEDS: carvediloL 3.125 MG TAB PO SCH ×2 (14:31→19:14)
[2022-07-08] MEDS: ASPIRIN 81 MG ECTAB PO SCH (14:31)
[2022-07-08] MEDS: DOCUSATE SODIUM 100 MG CAP PO SCH ×2 (14:33→19:13)
[2022-07-08] MEDS: POLYETHYLENE (MIRALAX) 17 GM PACK PO SCH ×3 (14:33→19:14)
--- NOTE | 2022-07-08 16:38 | Hospitalist Progress Note ---
Date of Service July 08, 2022 Assessment & Plan (1) Physical deconditioning: Plan: Medically stable for discharge pending placement at this time. Patient here for generalized weakness and deconditioning due to his chronic medical conditions and hyperphosphatemia due to him not taking phosphate binders cause itchy skin and multiple wounds all over his body. - Patient complains of Generalized weakness and 40 pound weight loss, has been an ongoing issue for 6 months, but has been acutely worse 3-4 days prior to presentation and had anorexia - Patient states that his appetite has increased and currently eating well - No evidence of PNA on chest x ray, but some suggestion of congestion. - Suspect this is a chronic issue, possibly exacerbated by a wound infection as he has several open wounds on his right lower extremity. - Blood cultures negative. Procalcitonin downtrending but may be chronically raised due to ESRD. Completed a 7 day course of daptomycin. No current cellulitis appreciated but certainly at risk given his extensive wounds - Weight loss concerning for cancerous cause although limited intervention would be performed given his overall medical conditions will defer workup to outpatient providers- - Awaiting authorization from patient's insurance to send to [facility] - [employer] denied SNF. Awaiting another appeal (2) PAD (peripheral artery disease): Plan: -Patient with a history of severe PAD - 4 years s/p left BKA. - Right lower extremity has several open circumferential wounds measuring several mm - several cm in diameter, dorsalis pedis and posterior tibialis pulses are not palpable on right, per review of wound care note from earlier last month this is not new. His pulses were weak but detectable with Doppler then. - He is not on any antiplatelets or statins. Started on ASA 81 mg and Lipitor 20mg. - Wound care reconsulted, appreciate recs - He had arterial duplex done at [facility] in [place], it shows evidence of severe PAD - Vascular consulted, no plans for revascularization (3) Calciphylaxis cutis: Plan: possibly the cause of his non healing ulcers and leg lesions Skin biopsy performed but needs deeper biopsy per surgery - patient states he is reluctant to have a repeat skin biopsy will ask wound care to re evaluate patient's wounds (4) Weakness: Plan: - Awaiting an appeal from [employer] - Therapy recommend that patient is motivated but unable to return to his home with current deficits. Best suited for a SNF level rehab stay considering his current skin breakdown, and unable to wear his prosthesis (5) Elevated troponin: Plan: - Troponin elevated secondary to ESRD TTE - global hypokinesis 35-40% with severe hypokinesis of anterolateral wall. No chest pain - appreciate cardiology consult - discussed care with Dr Vega Per cardiology note - At some point it may be reasonable to further evaluate his coronary artery status, but in the absence of any symptoms this is nonurgent. An outpatient Lexiscan could be obtained, dobutamine stress echocardiogram is less desirable given his poor echocardiographic windows. Was started on ASA 81 mg and Lipitor 20mg (6) Coronary artery disease: Plan: - Per PCP note from April, patient denies history of this, no current medications. Cannot find any cardiology notes, he is declined echoes and referral to cardiology in the past. - Will have on a low-salt/DM diet while admitted. Given old regional wall motion abnormalities suspect he has had an [place] in the past Start ASA + low dose carvedilol and low dose statin - Lipitor 20mg (7) Chronic diastolic congestive heart failure: Plan: -Fluid status managed by hemodialysis (8) End-stage renal disease on hemodialysis: Plan: - Nephrology on consult - Continue HD - Dialysis today and to have dialysis changed to Friday, and Friday at [facility] (9) Diabetes: Plan: - Type II diabetic, stop Lantus - does not appear to need this, hypoglycemic here. Suspect he no longer requires treatment for this given his weight loss and current glucose values Novolog switch to correction only - HbA1C not accurate in setting of ESRD on dialysis - DM2/low-salt diet. (10) Hypertension: Plan: -Continue on Amlodipine -Continue Carvedilol 3.125 mg BID (11) Secondary hyperparathyroidism of renal origin: Plan: - Secondary to ESRD. (12) Anemia due to chronic kidney disease: Plan: - Hgb 10.0, in setting of CKD, is at patient's baseline. - Continue to monitor. - No evidence of any acute bleeding Plan - continue mgt - SCDs, heparin for VTE ppx. - Full Code. - stable for downgrade to med/surg, planning on SNF on discharge - Awaiting a call back from [facility] to do an Re appeal Admission and Anticipated Discharge Date Admission Date: June 26, 2022 Subjective Patient was seen this AM prior to dialysis. I spoke with Olga this AM and patient's SNF request was denied. Case Management is calling for an expedited appeal of the SNF denial. Patient still unable to get his prosthesis on due to the skin wounds on his stump. Review of Systems Review of Systems: All systems reviewed are negative, apart from the ones contained in the history. Constitutional: + fatigue, + weakness and + weight loss Respiratory: no cough, no chest congestion, no dyspnea and no sputum production Cardiovascular: no chest pain, no dyspnea, no lightheadedness and no syncope Gastrointestinal: no abdominal pain, no nausea and no vomiting Integumentary: + lesions and + wounds; no pruritus and no yellowing of the skin Physical Exam Constitutional: WD/WN, vitals as above Respiratory: normal respiratory effort, lungs clear to auscultation Cardiovascular: RRR, no murmur, no edema Gastrointestinal (Abdomen): normal bowel sounds, soft, nontender, no hepatosplenomegaly Skin: circumferential wounds on lower extremities and on BKA stump Results & Data Results & Data ([facility]) Vital Signs (Past 12 Hours) Vital Signs Temp Pulse Pulse Pulse Resp BP BP 07/08/22 15:41 36.8 C 70 16 158/93 H 07/08/22 13:55 36.6 C 71 166/98 H 07/08/22 13:30 76 168/100 H 07/08/22 13:00 77 168/103 H 07/08/22 12:30 73 171/89 H 07/08/22 12:00 76 154/95 H 07/08/22 11:30 73 150/90 H 07/08/22 11:00 72 143/90 H 07/08/22 10:30 72 155/99 H 07/08/22 10:00 70 153/90 H 07/08/22 09:30 70 103/53 L 07/08/22 09:15 67 144/93 H 07/08/22 09:05 36.4 C L 71 07/08/22 07:47 36.6 C 77 16 142/65 H Pulse Ox O2 Del Method 07/08/22 15:41 95 Room Air 07/08/22 13:55 07/08/22 13:30 07/08/22 13:00 07/08/22 12:30 07/08/22 12:00 07/08/22 11:30 07/08/22 11:00 07/08/22 10:30 07/08/22 10:00 07/08/22 09:30 07/08/22 09:15 07/08/22 09:05 07/08/22 07:47 96 Room Air Laboratory Results Abnormal lab results 07/07/22 07/07/22 07/08/22 Range/Units 17:01 21:06 07:26 RBC 3.41 L (4.63-6.08) M/uL Hgb 10.0 L (14.0-18.0) g/dl Hct 30.7 L (40.1-51.0) % RDW Std Deviation 55.1 H (36.4-46.3) fL RDW Coeff of Dorcas 16.7 H (11.5-14.5) % Sodium (136-145) mmol/L Potassium (3.5-5.1) mmol/L Chloride (98-107) mmol/L Anion Gap (3-11) BUN (6-23) mg/dl Creatinine (0.6-1.4) mg/dl Glucose (70-99(Fasting)) mg/dl POC Glucose 114 H 139 H (70-99) mg/dl Phosphorus (2.5-4.9) mg/dl 07/08/22 07/08/22 Range/Units 07:26 08:05 RBC (4.63-6.08) M/uL Hgb (14.0-18.0) g/dl Hct (40.1-51.0) % RDW Std Deviation (36.4-46.3) fL RDW Coeff of Dorcas (11.5-14.5) % Sodium 128 L (136-145) mmol/L Potassium 5.8 H (3.5-5.1) mmol/L Chloride 89 L (98-107) mmol/L Anion Gap 14 H (3-11) BUN 107 H (6-23) mg/dl Creatinine 7.70 H* D (0.6-1.4) mg/dl Glucose 107 H (70-99(Fasting)) mg/dl POC Glucose 102 H (70-99) mg/dl Phosphorus 7.2 H (2.5-4.9) mg/dl PG Care Time/CCT Total # of Minutes Spent Total Time Spent with Patient: Total time spent is greater than 50% in coordination of care (as documented) at patient's floor/unit and/or counseling patient: Coding Level of Care Code 37239 Subseq Hosp Care Lvl 1 Diagnoses Physical deconditioning R53.81 PAD (peripheral artery disease) I73.9 Calciphylaxis cutis E83.59 Weakness R53.1 Elevated troponin R77.8 Coronary artery disease I25.10 Chronic diastolic congestive heart failure I50.32 End-stage renal disease on hemodialysis N18.6; Z99.2 Diabetes E11.9 Hypertension I10 Secondary hyperparathyroidism of renal origin N25.81 Anemia due to chronic kidney disease N18.5; D63.1 Chronic kidney disease stage: stage 5, not on chronic dialysis Time Spent (min) 15 (1) Anemia due to chronic kidney disease Chronic kidney disease stage: stage 5, not on chronic dialysis Qualified Code(s): N18.5 - Chronic kidney disease, stage 5; D63.1 - Anemia in chronic kidney disease
[2022-07-08] MEDS: ATORVASTATIN 20 MG TAB PO SCH (19:13)
[2022-07-08] MEDS: IBUPROFEN 200 MG TAB PO PRN (22:51)
[2022-07-09] MEDS: HEPARIN SOD 5,000 UNIT/0.5 ML VIAL SQ SCH ×3 (05:18→19:21)
--- NOTE | 2022-07-09 07:35 | Hospitalist Progress Note ---
Date of Service July 09, 2022 Assessment & Plan (1) Physical deconditioning: Plan: Medically stable for discharge pending placement at this time. Patient here for generalized weakness and deconditioning due to his chronic medical conditions and hyperphosphatemia due to him not taking phosphate binders cause itchy skin and multiple wounds on extremities and Left BKA stump. - Patient complains of Generalized weakness and 40 pound weight loss, has been an ongoing issue for 6 months, but has been acutely worse 3-4 days prior to presentation and had anorexia - Patient states that his appetite has increased and currently eating well - No evidence of PNA on chest x ray, but some suggestion of congestion initially and improved. - Suspect this is a chronic issue, possibly exacerbated by a wound infection as he has several open wounds on his right and left lower extremity. - Blood cultures negative. Procalcitonin downtrending but may be chronically raised due to ESRD. Completed a 7 day course of daptomycin. No current cellulitis appreciated but certainly at risk given his extensive wounds - Weight loss concerning for cancerous cause although limited intervention would be performed given his overall medical conditions will defer workup to outpatient providers- - Awaiting authorization from patient's insurance to send to [facility] - [employer] denied SNF. Awaiting another appeal (2) PAD (peripheral artery disease): Plan: -Patient with a history of severe PAD - 4 years s/p left BKA. - Right lower extremity has several open circumferential wounds measuring several mm - several cm in diameter, dorsalis pedis and posterior tibialis pulses are not palpable on right, per review of wound care note from earlier last month this is not new. His pulses were weak but detectable with Doppler then. - He is not on any antiplatelets or statins. Started on ASA 81 mg and Lipitor 20mg. - Wound care reconsulted, appreciate recs - He had arterial duplex done at [facility] in [place], it shows evidence of severe PAD - Vascular consulted, no plans for revascularization (3) Calciphylaxis cutis: Plan: possibly the cause of his non healing ulcers and leg lesions Skin biopsy performed but needs deeper biopsy per surgery - patient states he is reluctant to have a repeat skin biopsy will ask wound care to re evaluate patient's wounds (4) Weakness: Plan: - Awaiting an appeal from [employer] - Therapy recommend that patient is motivated but unable to return to his home with current deficits. Best suited for a SNF level rehab stay considering his current skin breakdown, and unable to wear his prosthesis (5) Elevated troponin: Plan: - Troponin elevated secondary to ESRD TTE - global hypokinesis 35-40% with severe hypokinesis of anterolateral wall. No chest pain - appreciate cardiology consult - discussed care with Dr Vega Per cardiology note - At some point it may be reasonable to further evaluate his coronary artery status, but in the absence of any symptoms this is nonurgent. An outpatient Lexiscan could be obtained, dobutamine stress echocardiogram is less desirable given his poor echocardiographic windows. Was started on ASA 81 mg and Lipitor 20mg (6) Coronary artery disease: Plan: - Per PCP note from April, patient denies history of this, no current medications. Cannot find any cardiology notes, he is declined echoes and referral to cardiology in the past. - Will have on a low-salt/DM diet while admitted. Given old regional wall motion abnormalities suspect he has had an [place] in the past Continue ASA + low dose carvedilol and low dose statin - Lipitor 20mg (7) Chronic diastolic congestive heart failure: Plan: -Fluid status managed by hemodialysis (8) End-stage renal disease on hemodialysis: Plan: - Nephrology on consult - Continue HD - Dialysis tomorrow (9) Diabetes: Plan: - Type II diabetic, stop Lantus - does not appear to need this, hypoglycemic here. Suspect he no longer requires treatment for this given his weight loss and current glucose values Novolog switch to correction only - HbA1C not accurate in setting of ESRD on dialysis - DM2/low-salt diet. (10) Hypertension: Plan: -Continue on Amlodipine 10 mg -Continue Carvedilol 3.125 mg BID (11) Secondary hyperparathyroidism of renal origin: Plan: - Secondary to ESRD. (12) Anemia due to chronic kidney disease: Plan: - Hgb remains stable in 10 range, in setting of CKD, is at patient's baseline. - Continue to monitor. - No evidence of any acute bleeding Plan - continue mgt - SCDs, heparin for VTE ppx. - Full Code. - stable for downgrade to med/surg, planning on SNF on discharge - Awaiting a call back from [facility] to do an Re appeal Admission and Anticipated Discharge Date Admission Date: June 26, 2022 Supervising Physician Co-Signing Physician Notes chart reviewed, agree kinjal Baez PAC, as above Subjective Patient is awake sitting up in bed and states he has no new complaints. He thinks that his wounds on his stump may slightly be improving but the wounds on his left lower leg he feels are not improving. Patient is to have dialysis tomorrow Review of Systems Review of Systems: All systems reviewed are negative, apart from the ones contained in the history and below. Constitutional: + fatigue, + weakness and + weight loss Respiratory: no cough, no chest congestion, no dyspnea and no sputum production Cardiovascular: no chest pain, no dyspnea, no lightheadedness and no syncope Gastrointestinal: no abdominal pain, no nausea and no vomiting Integumentary: + lesions and + wounds; no pruritus and no yellowing of the skin Physical Exam Constitutional: WD/WN, vitals as above Respiratory: normal respiratory effort, lungs clear to auscultation Cardiovascular: RRR, no murmur, no edema Gastrointestinal (Abdomen): normal bowel sounds, soft, nontender, no hepatosplenomegaly Skin: circumferential deep wounds on left BKA stump and also right lower leg Results & Data Results & Data ([facility]) Laboratory Results Abnormal lab results 07/08/22 07/08/22 07/09/22 Range/Units 16:59 20:22 08:28 Sodium (136-145) mmol/L Chloride (98-107) mmol/L BUN (6-23) mg/dl Creatinine (0.6-1.4) mg/dl Glucose (70-99(Fasting)) mg/dl POC Glucose 114 H 136 H 116 H (70-99) mg/dl 07/09/22 07/09/22 Range/Units 08:35 11:59 Sodium 134 L (136-145) mmol/L Chloride 97 L (98-107) mmol/L BUN 69 H D (6-23) mg/dl Creatinine 6.31 H* D (0.6-1.4) mg/dl Glucose 120 H (70-99(Fasting)) mg/dl POC Glucose 159 H (70-99) mg/dl PG Care Time/CCT Total # of Minutes Spent Total Time Spent with Patient: Total time spent is greater than 50% in coordination of care (as documented) at patient's floor/unit and/or counseling patient: Coding Level of Care Code 03794 Subseq Hosp Care Lvl 1 Diagnoses Physical deconditioning R53.81 PAD (peripheral artery disease) I73.9 Calciphylaxis cutis E83.59 Weakness R53.1 Elevated troponin R77.8 Coronary artery disease I25.10 Chronic diastolic congestive heart failure I50.32 End-stage renal disease on hemodialysis N18.6; Z99.2 Diabetes E11.9 Hypertension I10 Secondary hyperparathyroidism of renal origin N25.81 Anemia due to chronic kidney disease N18.5; D63.1 Chronic kidney disease stage: stage 5, not on chronic dialysis Time Spent (min) 10 (1) Anemia due to chronic kidney disease Chronic kidney disease stage: stage 5, not on chronic dialysis Qualified Code(s): N18.5 - Chronic kidney disease, stage 5; D63.1 - Anemia in chronic kidney disease
[2022-07-09] MEDS: INSULIN ASPART PER UNIT SC SCH ×4 (08:52→20:56)
[2022-07-09] MEDS: SEVELAMER HCL 800 MG TABLET PO SCH ×3 (09:10→17:13)
[2022-07-09] MEDS: NEPHROCAPS PO SCH (09:10)
[2022-07-09] MEDS: ASPIRIN 81 MG ECTAB PO SCH (09:10)
[2022-07-09] MEDS: carvediloL 3.125 MG TAB PO SCH ×2 (09:10→19:20)
[2022-07-09] MEDS: amLODIPine BESYLATE 5 MG TAB PO SCH (09:10)
[2022-07-09] MEDS: POLYETHYLENE (MIRALAX) 17 GM PACK PO SCH ×3 (09:12→19:18)
[2022-07-09] MEDS: DOCUSATE SODIUM 100 MG CAP PO SCH ×2 (09:12→19:19)
[2022-07-09 09:41] LABS: BUN Creatinine Ratio 10.9 (10-20); Creatinine Clr Calc Pharmacy 17.6 ml/min; Est GFR (African American) 10.2 ml/min; Est GFR (Non-African American) 8.8 ml/min; Potassium 4.4 mmol/L (3.5-5.1)
--- NOTE | 2022-07-09 11:02 | Nephrology Progress Note ---
Date of Service July 09, 2022 Assessment & Plan (1) End-stage renal disease on hemodialysis: Plan: ESRD attributed to DKD, hypertensive nephrosclerosis, and vascular disease. Maintained on HD TTS at [facility] (4.5hr, 2K 2.5Ca Na 137, HCO3 38, F-250 NR, 14 g needles, Qb500 Qd 800, EDW 130.5 Kg, heparin 3000 unit bolus + 2500 units q1 hr, L forearm AVF). Next planned HD tomorrow. BP and volume status are acceptable. Appropriate clearance with treatment yesterdy. Medications appropriately dosed for kidney function. Sevelamer 3 tabs QAC. Renal diet. (2) Anemia due to chronic kidney disease: Plan: Hgb stable. Epogen 02157 units provided with HD 07/05. (3) Hypertension: Plan: Tolerating Coreg and amlodipine as Rx. Volume status acceptable. Low sodium diet and 1 L daily fluid restriction. Document I/O's and daily AM weight. (4) Open leg wound: Plan: Ulcer in right lower extremity and several left BKA stump.Doppler demonstrating adequate blood flow to right lower extremity with notable atherosclerotic disease without any focal lesion. Skin biopsy negative for calciphylaxis, although there was recommendation for deeper tissue biopsy which Danielito refused. Denies pain. (5) Weakness: Plan: Remains notably debilitated. Unable to use prosthesis. Expressed significant concerns regarding disposition options. Admission and Anticipated Discharge Date Admission Date: June 26, 2022 Subjective No acute events overnight. Tolerated HD yesterday without complications. Danielito feels well this AM. Reports healing wounds on stump. Denies pain. Expressed frustration regarding continued admission and increasing debility. Review of Systems Review of Systems: All systems reviewed & are unremarkable except as noted in HPI & below Physical Exam Constitutional: + morbidly obese; no acute distress Eyes: + anicteric sclerae; no corneal abnormality ENMT: Mouth: no oral mucosal abnormality and oral mucous membranes not dry Neck: normal visual inspection and trachea midline Respiratory: normal respiratory effort Auscultation: lungs clear to auscultation bilaterally Cardiovascular: Rate/Rhythm: regular rate Heart Sounds: normal S1, normal S2 and + murmur Extremities: + AV fistula; no edema Musculoskeletal: Extremities: no cyanosis and no clubbing Skin: + turgor decreased and + lesion (multiple scabbed ulcers on stump); no jaundice Neurologic: Motor/Sensory: no tremor and no asterixis Psychiatric: Orientation: alert and oriented x 3 Results & Data ([facility]) Vital Signs (Past 12 Hours) Vital Signs Temp Pulse Resp BP Pulse Ox O2 Del Method 07/09/22 08:06 36.5 C 69 16 163/77 H 96 Room Air Laboratory Results Laboratory Results - last 24 hr 07/08/22 07/08/22 07/08/22 14:12 16:59 20:22 Sodium Potassium Chloride Carbon Dioxide Anion Gap BUN Creatinine Est Cr Clr Drug Dosing Est GFR ( Amer) Est GFR (Non-Af Amer) BUN/Creatinine Ratio Glucose POC Glucose 95 114 H 136 H Calcium 07/09/22 07/09/22 08:28 08:35 Sodium 134 L Potassium 4.4 D Chloride 97 L Carbon Dioxide 26 Anion Gap 11 BUN 69 H D Creatinine 6.31 H* D Est Cr Clr Drug Dosing 17.6 Est GFR ( Amer) 10.2 Est GFR (Non-Af Amer) 8.8 BUN/Creatinine Ratio 10.9 Glucose 120 H POC Glucose 116 H Calcium 9.0 PG Care Time/CCT Total # of Minutes Spent Total Time Spent with Patient: Total time spent is greater than 50% in coordination of care (as documented) at patient's floor/unit and/or counseling patient: Coding Level of Care Code 82673 Subseq Hosp Care Lvl 3 Diagnoses End-stage renal disease on hemodialysis N18.6; Z99.2 Anemia due to chronic kidney disease N18.5; D63.1 Chronic kidney disease stage: stage 5, not on chronic dialysis Hypertension I10 Open leg wound S81.809A Weakness R53.1 (1) Anemia due to chronic kidney disease Chronic kidney disease stage: stage 5, not on chronic dialysis Qualified Code(s): N18.5 - Chronic kidney disease, stage 5; D63.1 - Anemia in chronic kidney disease
[2022-07-09] MEDS: ATORVASTATIN 20 MG TAB PO SCH (19:19)
[2022-07-09] MEDS: IBUPROFEN 200 MG TAB PO PRN (22:25)
[2022-07-10] MEDS: HEPARIN SOD 5,000 UNIT/0.5 ML VIAL SQ SCH ×3 (05:24→20:47)
[2022-07-10] MEDS ORDERED: HEPARIN SOD (PORCINE) 1000 UNIT/ML IV ONE ×4 (07:00→08:00)
[2022-07-10 07:05] LABS: Hematocrit (blood only) 30.9 % (40.1-51.0); Hemoglobin 9.8 g/dl (14.0-18.0); Mean Corpuscular Hemoglobin 28.9 pg (25.0-34.0); Mean Corpuscular Hgb Conc 31.7 g/dL (32.0-36.0); Mean Corpuscular Volume 91.2 fL (80.0-100.0); Mean Platelet Volume 11.3 fL (9.4-12.4); Platelet Count 221 K/uL (130-400); RDW Coefficient of Variation 16.6 % (11.5-14.5); RDW Standard Deviation 54.9 fL (36.4-46.3); Red Blood Count 3.39 M/uL (4.63-6.08); White Blood Count 7.72 K/ul (4.8-10.8)
[2022-07-10 07:27] LABS: BUN Creatinine Ratio 12.8 (10-20); Creatinine Clr Calc Pharmacy 14.8 ml/min; Est GFR (African American) 8.3 ml/min; Est GFR (Non-African American) 7.1 ml/min; Potassium 5.3 mmol/L (3.5-5.1)
[2022-07-10] MEDS: POLYETHYLENE (MIRALAX) 17 GM PACK PO SCH ×3 (07:53→20:56)
[2022-07-10] MEDS: NEPHROCAPS PO SCH (07:53)
[2022-07-10] MEDS: DOCUSATE SODIUM 100 MG CAP PO SCH ×2 (07:53→20:56)
[2022-07-10] MEDS: SEVELAMER HCL 800 MG TABLET PO SCH ×3 (07:54→17:42)
--- NOTE | 2022-07-10 08:42 | Hospitalist Progress Note ---
Date of Service July 10, 2022 Assessment & Plan (1) Physical deconditioning: Plan: Medically stable for discharge pending placement at this time. Patient here for generalized weakness and deconditioning due to his chronic medical conditions and hyperphosphatemia due to him not taking phosphate binders cause itchy skin and multiple wounds on extremities and Left BKA stump. - Patient complains of Generalized weakness and 40 pound weight loss, has been an ongoing issue for 6 months, but has been acutely worse 3-4 days prior to presentation and had anorexia - Patient states that his appetite has increased and currently eating well - Weight on admission was 123 kg currently is 131.4 kg - No evidence of PNA on chest x ray, but some suggestion of congestion initially and improved since. - Blood cultures negative. Procalcitonin downtrending but may be chronically raised due to ESRD. Completed a 7 day course of daptomycin. No current cellulitis appreciated but certainly at risk given his extensive wounds - Weight loss concerning for cancerous cause although limited intervention would be performed given his overall medical conditions will defer workup to outpatient providers - Awaiting authorization from patient's insurance to send to [facility] - [facility] denied SNF. Awaiting another appeal Physical therapy stating that patient is unable to tolerate stand pivot transfer at this time due to weakness, impaired balance, unable to stand on right leg on ly, therefore sliding board needed and would not be safe to transport with sliding board alone. Again stating that it would be unsafe for patient to return home alone and continue to recommend SNF with therapy at discharge. 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 - Right lower extremity has several open circumferential wounds measuring several mm - several cm in diameter, dorsalis pedis and posterior tibialis pulses are not palpable on right, per review of wound care note from earlier last month this is not new. His pulses were weak but detectable with Doppler then. - He is not on any antiplatelets or statins. Started on ASA 81 mg and Lipitor 20mg. - He had arterial duplex done at [facility] in [place], it shows evidence of severe PAD - Vascular consulted, no plans for revascularization (3) Calciphylaxis cutis: Plan: possibly the cause of his non healing ulcers and leg lesions Skin biopsy performed but needs deeper biopsy per surgery - patient states he is reluctant to have a repeat skin biopsy - Wound care reconsulted, recommended to soften and remove eschar and applied Tegaderm, expect drainage as tissue is breaking down. (4) Weakness: Plan: - See above physical deconditioning - Awaiting an appeal from [employer] - Therapy recommend that patient is motivated but unable to return to his home with current deficits. Best suited for a SNF level rehab stay considering his current skin breakdown, and unable to wear his prosthesis (5) Elevated troponin: Plan: - Troponin elevated secondary to ESRD TTE - global hypokinesis 35-40% with severe hypokinesis of anterolateral wall. No chest pain - appreciate cardiology consult - discussed care with Dr Vega Per cardiology note - At some point it may be reasonable to further evaluate his coronary artery status, but in the absence of any symptoms this is nonurgent. An outpatient Lexiscan could be obtained, dobutamine stress echocardiogram is less desirable given his poor echocardiographic windows. Was started on ASA 81 mg and Lipitor 20mg (6) Coronary artery disease: Plan: - Per PCP note from April, patient denies history of this, no current medications. Cannot find any cardiology notes, he is declined echoes and referral to cardiology in the past. - Will have on a low-salt/DM diet while admitted. Given old regional wall motion abnormalities suspect he has had an NV in the past Continue ASA + low dose carvedilol and low dose statin - Lipitor 20mg (7) Chronic diastolic congestive heart failure: Plan: -Fluid status managed by hemodialysis (8) End-stage renal disease on hemodialysis: Plan: - Nephrology on consult - Continue HD - Dialysis tomorrow (9) Diabetes: Plan: - Type II diabetic, stop Lantus - does not appear to need this, hypoglycemic here. Suspect he no longer requires treatment for this given his weight loss and current glucose values Novolog switch to correction only - HbA1C not accurate in setting of ESRD on dialysis - DM2/low-salt and renal diet (10) Hypertension: Plan: -Continue on Amlodipine 10 mg -Continue Carvedilol 3.125 mg BID (11) Secondary hyperparathyroidism of renal origin: Plan: - Secondary to ESRD. (12) Anemia due to chronic kidney disease: Plan: - Hgb remains stable in 9-10 range, in setting of CKD, is at patient's baseline. - Continue to monitor. - No evidence of any acute bleeding Plan - continue mgt - SCDs, heparin for VTE ppx. - Full Code. - stable for downgrade to med/surg, planning on SNF on discharge - Awaiting a call back from [facility] to do an Re appeal Admission and Anticipated Discharge Date Admission Date: June 26, 2022 Supervising Physician Co-Signing Physician Notes chart reviewed, medhat Baez PAC, as above Subjective Patient seen this AM and sitting up in bed. He is discouraged with awaiting approval from insurance. Getting dialysis today Review of Systems Review of Systems: All systems reviewed are negative, apart from the ones contained in the history and below. Constitutional: + fatigue, + weakness and + weight loss Respiratory: no cough, no chest congestion, no dyspnea and no sputum production Cardiovascular: no chest pain, no dyspnea, no lightheadedness and no syncope Gastrointestinal: no abdominal pain, no nausea and no vomiting Integumentary: + lesions and + wounds; no pruritus and no yellowing of the skin Physical Exam Constitutional: WD/WN, vitals as above Respiratory: normal respiratory effort, lungs clear to auscultation Cardiovascular: RRR, no murmur, no edema Gastrointestinal (Abdomen): normal bowel sounds, soft, nontender, no hepatosplenomegaly Skin: multiple circumferential lesions on left BKA stump and distal LLE and ankle Results & Data Results & Data ([facility]) Vital Signs (Past 12 Hours) Vital Signs Temp Pulse Resp BP Pulse Ox O2 Del Method 07/10/22 07:48 36.6 C 66 16 177/99 H 99 Room Air Laboratory Results Abnormal lab results 07/09/22 07/09/22 07/10/22 Range/Units 17:00 20:43 06:41 RBC 3.39 L (4.63-6.08) M/uL Hgb 9.8 L (14.0-18.0) g/dl Hct 30.9 L (40.1-51.0) % MCHC 31.7 L (32.0-36.0) g/dL RDW Std Deviation 54.9 H (36.4-46.3) fL RDW Coeff of Dorcas 16.6 H (11.5-14.5) % Sodium (136-145) mmol/L Potassium (3.5-5.1) mmol/L Chloride (98-107) mmol/L Anion Gap (3-11) BUN (6-23) mg/dl Creatinine (0.6-1.4) mg/dl Glucose (70-99(Fasting)) mg/dl POC Glucose 127 H 154 H (70-99) mg/dl 07/10/22 07/10/22 Range/Units 06:41 08:07 RBC (4.63-6.08) M/uL Hgb (14.0-18.0) g/dl Hct (40.1-51.0) % MCHC (32.0-36.0) g/dL RDW Std Deviation (36.4-46.3) fL RDW Coeff of Dorcas (11.5-14.5) % Sodium 131 L (136-145) mmol/L Potassium 5.3 H D (3.5-5.1) mmol/L Chloride 94 L (98-107) mmol/L Anion Gap 13 H (3-11) BUN 96 H D (6-23) mg/dl Creatinine 7.50 H* D (0.6-1.4) mg/dl Glucose 115 H (70-99(Fasting)) mg/dl POC Glucose 122 H (70-99) mg/dl PG Care Time/CCT Total # of Minutes Spent Total Time Spent with Patient: Total time spent is greater than 50% in coordination of care (as documented) at patient's floor/unit and/or counseling patient: Coding Level of Care Code 51286 Subseq Obs Care Lvl 2 Diagnoses Physical deconditioning R53.81 PAD (peripheral artery disease) I73.9 Calciphylaxis cutis E83.59 Weakness R53.1 Elevated troponin R77.8 Coronary artery disease I25.10 Chronic diastolic congestive heart failure I50.32 End-stage renal disease on hemodialysis N18.6; Z99.2 Diabetes E11.9 Hypertension I10 Secondary hyperparathyroidism of renal origin N25.81 Anemia due to chronic kidney disease N18.5; D63.1 Chronic kidney disease stage: stage 5, not on chronic dialysis Time Spent (min) 15 (1) Anemia due to chronic kidney disease Chronic kidney disease stage: stage 5, not on chronic dialysis Qualified Code(s): N18.5 - Chronic kidney disease, stage 5; D63.1 - Anemia in chronic kidney disease
--- NOTE | 2022-07-10 08:58 | Nephrology Progress Note ---
Date of Service July 10, 2022 Assessment & Plan (1) End-stage renal disease on hemodialysis: Plan: ESRD attributed to DKD, hypertensive nephrosclerosis, and vascular disease. Orders for HD today entered into the EHR and reviewed with correction officer head. Will attempt 4-4.5 hr treatment as permitted due to inpatient constraints. 200 dialyzer while inpatient. UF goal 5 L at patient request. Maintained on HD TTS at [facility] (4.5hr, 2K 2.5Ca Na 137, HCO3 38, F-250 NR, 14 g needles, Qb500 Qd 800, EDW 130.5 Kg, heparin 3000 unit bolus + 2500 units q1 hr, L forearm AVF). AVF has been functioning well. Medications appropriately dosed for kidney function. Sevelamer 3 tabs QAC. Renal diet. (2) Anemia due to chronic kidney disease: Plan: Hgb stable. Epogen 56689 units provided with HD 07/05. Additional Epogen 07639 units with HD today. (3) Hypertension: Plan: Tolerating Coreg and amlodipine as Rx. Volume status acceptable. Low sodium diet and 1 L daily fluid restriction. Document I/O's and daily AM weight. (4) Open leg wound: Plan: Ulcer in right lower extremity and several left BKA stump.Doppler demonstrating adequate blood flow to right lower extremity with notable atherosclerotic disease without any focal lesion. Skin biopsy negative for calciphylaxis, although there was recommendation for deeper tissue biopsy which Danielito refused. Denies pain. Ulcers appear to be healing. (5) Weakness: Plan: Remains notably debilitated. PT and OT evaluations being provided this AM. Admission and Anticipated Discharge Date Admission Date: June 26, 2022 Subjective No acute events overnight. Danielito was seen and evaluated with PT at the bedside this AM. He expressed frustration regarding inpatient restrictions on dialysis and therapy. He is frustrated regarding his prolonged hospitalization. Otherwise he feels well. He unfortunately remains debilitated. Review of Systems Review of Systems: All systems reviewed & are unremarkable except as noted in HPI & below Physical Exam Constitutional: + morbidly obese; no acute distress Eyes: + anicteric sclerae; no corneal abnormality Neck: normal visual inspection and trachea midline Respiratory: normal respiratory effort Auscultation: lungs clear to auscultation bilaterally and + rales (few basilar) Cardiovascular: Rate/Rhythm: regular rate Heart Sounds: normal S1, normal S2 and + murmur Extremities: + AV fistula; no edema Musculoskeletal: Extremities: no cyanosis and no clubbing Skin: + turgor decreased and + lesion (multiple scabbed ulcers on stump); no jaundice Neurologic: Motor/Sensory: no tremor and no asterixis Psychiatric: Orientation: alert and oriented x 3 Results & Data ([facility]) Vital Signs (Past 12 Hours) Vital Signs Temp Pulse Resp BP Pulse Ox O2 Del Method 07/10/22 07:48 36.6 C 66 16 177/99 H 99 Room Air Laboratory Results Laboratory Results - last 24 hr 07/09/22 07/09/22 07/09/22 08:35 11:59 17:00 WBC RBC Hgb Hct MCV MCH MCHC RDW Std Deviation RDW Coeff of Dorcas Plt Count MPV Sodium 134 L Potassium 4.4 D Chloride 97 L Carbon Dioxide 26 Anion Gap 11 BUN 69 H D Creatinine 6.31 H* D Est Cr Clr Drug Dosing 17.6 Est GFR ( Amer) 10.2 Est GFR (Non-Af Amer) 8.8 BUN/Creatinine Ratio 10.9 Glucose 120 H POC Glucose 159 H 127 H Calcium 9.0 07/09/22 07/10/22 07/10/22 20:43 06:41 06:41 WBC 7.72 RBC 3.39 L Hgb 9.8 L Hct 30.9 L MCV 91.2 MCH 28.9 MCHC 31.7 L RDW Std Deviation 54.9 H RDW Coeff of Dorcas 16.6 H Plt Count 221 MPV 11.3 Sodium 131 L Potassium 5.3 H D Chloride 94 L Carbon Dioxide 24 Anion Gap 13 H BUN 96 H D Creatinine 7.50 H* D Est Cr Clr Drug Dosing 14.8 Est GFR ( Amer) 8.3 Est GFR (Non-Af Amer) 7.1 BUN/Creatinine Ratio 12.8 Glucose 115 H POC Glucose 154 H Calcium 9.0 07/10/22 08:07 WBC RBC Hgb Hct MCV MCH MCHC RDW Std Deviation RDW Coeff of Dorcas Plt Count MPV Sodium Potassium Chloride Carbon Dioxide Anion Gap BUN Creatinine Est Cr Clr Drug Dosing Est GFR ( Amer) Est GFR (Non-Af Amer) BUN/Creatinine Ratio Glucose POC Glucose 122 H Calcium PG Care Time/CCT Total # of Minutes Spent Total Time Spent with Patient: Total time spent is greater than 50% in coordination of care (as documented) at patient's floor/unit and/or counseling patient: Coding Level of Care Code 44765 Subseq Hosp Care Lvl 3 Diagnoses End-stage renal disease on hemodialysis N18.6; Z99.2 Anemia due to chronic kidney disease N18.5; D63.1 Chronic kidney disease stage: stage 5, not on chronic dialysis Hypertension I10 Open leg wound S81.809A Weakness R53.1 (1) Anemia due to chronic kidney disease Chronic kidney disease stage: stage 5, not on chronic dialysis Qualified Code(s): N18.5 - Chronic kidney disease, stage 5; D63.1 - Anemia in chronic kidney disease
[2022-07-10] MEDS ORDERED: EPOETIN ALFA 20,000 UNITS/ML VIAL IV ONE (08:59)
[2022-07-10] MEDS: INSULIN ASPART PER UNIT SC SCH ×4 (08:59→20:56)
[2022-07-10] MEDS: amLODIPine BESYLATE 5 MG TAB PO SCH (15:15)
[2022-07-10] MEDS: ASPIRIN 81 MG ECTAB PO SCH (15:15)
[2022-07-10] MEDS: carvediloL 3.125 MG TAB PO SCH ×2 (15:15→20:56)
[2022-07-10] MEDS: ATORVASTATIN 20 MG TAB PO SCH (20:56)
[2022-07-10] MEDS: IBUPROFEN 200 MG TAB PO PRN (22:48)
[2022-07-11] MEDS: HEPARIN SOD 5,000 UNIT/0.5 ML VIAL SQ SCH ×3 (05:07→21:01)
[2022-07-11] MEDS: POLYETHYLENE (MIRALAX) 17 GM PACK PO SCH ×3 (07:43→21:18)
[2022-07-11] MEDS: carvediloL 3.125 MG TAB PO SCH ×2 (07:45→21:02)
[2022-07-11] MEDS: DOCUSATE SODIUM 100 MG CAP PO SCH ×2 (07:45→21:16)
[2022-07-11] MEDS: amLODIPine BESYLATE 5 MG TAB PO SCH (07:45)
[2022-07-11] MEDS: ASPIRIN 81 MG ECTAB PO SCH (07:45)
[2022-07-11] MEDS: NEPHROCAPS PO SCH (07:45)
[2022-07-11] MEDS: SEVELAMER HCL 800 MG TABLET PO SCH ×3 (07:45→16:44)
[2022-07-11] MEDS: INSULIN ASPART PER UNIT SC SCH ×4 (08:46→21:18)
[2022-07-11 09:20] LABS: Hematocrit (blood only) 33.7 % (40.1-51.0); Hemoglobin 10.7 g/dl (14.0-18.0); Mean Corpuscular Hgb Conc 31.8 g/dL (32.0-36.0); Mean Corpuscular Volume 91.3 fL (80.0-100.0); Mean Platelet Volume 10.9 fL (9.4-12.4); Platelet Count 226 K/uL (130-400); RDW Coefficient of Variation 16.2 % (11.5-14.5); RDW Standard Deviation 53.9 fL (36.4-46.3); Red Blood Count 3.69 M/uL (4.63-6.08); White Blood Count 8.22 K/ul (4.8-10.8)
[2022-07-11 09:55] LABS: BUN Creatinine Ratio 10.9 (10-20); Calcium 9.3 mg/dl (8.5-10.1); Creatinine Clr Calc Pharmacy 21.4 ml/min; Est GFR (African American) 13.1 ml/min; Est GFR (Non-African American) 11.3 ml/min; Potassium 4.6 mmol/L (3.5-5.1)
[2022-07-11] MEDS ORDERED: HEPARIN IV BOLUS 2,000 UNITS in SYRINGE 0 ML IV ONE (16:37)
[2022-07-11] MEDS ORDERED: HEPARIN SOD (PORCINE) 1000 UNIT/ML IV PRN (16:42)
--- NOTE | 2022-07-11 18:13 | Hospitalist Progress Note ---
Date of Service July 11, 2022 Assessment & Plan (1) Physical deconditioning: Plan: Medically stable for discharge pending placement at this time. Patient here for generalized weakness and deconditioning due to his chronic medical conditions and hyperphosphatemia due to him not taking phosphate binders cause itchy skin and multiple wounds on extremities and Left BKA stump. - Patient complains of Generalized weakness and 40 pound weight loss, has been an ongoing issue for 6 months, but has been acutely worse 3-4 days prior to presentation and had anorexia - Patient states that his appetite has increased and currently eating well - Weight on admission was 123 kg currently is 126.6 - No evidence of PNA on chest x ray, but some suggestion of congestion initially and improved since. - Blood cultures negative. Procalcitonin downtrending but may be chronically raised due to ESRD. Completed a 7 day course of daptomycin. No current cellulitis appreciated but certainly at risk given his extensive wounds -Wound care nurse has been managing his wounds. Patient should follow-up with the wound care center on discharge -Insurance authorization approved to send to [facility] -anticipate discharge tomorrow Physical therapy stating that patient is unable to tolerate stand pivot transfer at this time due to weakness, impaired balance, unable to stand on right leg only, therefore sliding board needed and would not be safe to transport with sliding board alone. Again stating that it would be unsafe for patient to return home alone and continue to recommend SNF with therapy at discharge. 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 - Right lower extremity has several open circumferential wounds measuring several mm - several cm in diameter, dorsalis pedis and posterior tibialis pulses are not palpable on right, per review of wound care note from earlier last month this is not new. His pulses were weak but detectable with Doppler then. - He is not on any antiplatelets or statins. Started on ASA 81 mg and Lipitor 20mg. - He had arterial duplex done at [facility] in [place], it shows evidence of severe PAD - Vascular consulted, no plans for revascularization -Wound care team is managing his wounds. Recommend follow-up in wound care center on discharge. Discharge instructions include direction for [facility] to arrange appointment and transportation (3) Calciphylaxis cutis: Plan: possibly the cause of his non healing ulcers and leg lesions Skin biopsy performed but needs deeper biopsy per surgery - patient states he is reluctant to have a repeat skin biopsy - Wound care reconsulted, recommended to soften and remove eschar and applied Tegaderm, expect drainage as tissue is breaking down. * Right lower leg on the anterior and posterior with the lateral ankle and dorsal foot. Should cleanse with saline and cover with Aquacel Ag and secure with Optifoam. This should be changed every 3 days and as needed * Wounds to right knee and the left distal stump should be treated with Skin- Prep to periphery. Allow to dry and cover with Tegaderm. Wound should be outlined. Change every 3 days and as needed * Drainage is expected and wanted. She cleaned with saline before reapplying Tegaderm * She called [facility] for wound care for follow-up at [phone] (4) Weakness: Plan: - See above physical deconditioning - Approved to go to [facility]. Discharge tomorrow if transportation is available - Therapy recommend that patient is motivated but unable to return to his home with current deficits. Best suited for a SNF level rehab stay considering his current skin breakdown, and unable to wear his prosthesis (5) Elevated troponin: Plan: - Troponin elevated secondary to ESRD TTE - global hypokinesis 35-40% with severe hypokinesis of anterolateral wall. No chest pain - appreciate cardiology consult - discussed care with Dr Vega Per cardiology note - At some point it may be reasonable to further evaluate his coronary artery status, but in the absence of any symptoms this is nonurgent. An outpatient Lexiscan could be obtained, dobutamine stress echocardiogram is less desirable given his poor echocardiographic windows. Was started on ASA 81 mg and Lipitor 20mg No chest pain or tightness. No shortness of breath. (6) Coronary artery disease: Plan: - Per PCP note from April, patient denies history of this, no current medications. Cannot find any cardiology notes, he is declined echoes and referral to cardiology in the past. - Will have on a low-salt/DM diet while admitted. Given old regional wall motion abnormalities suspect he has had an UT in the past Continue ASA + low dose carvedilol and low dose statin - Lipitor 20mg (7) Chronic diastolic congestive heart failure: Plan: -Fluid status managed by hemodialysis (8) End-stage renal disease on hemodialysis: Plan: - Nephrology on consult - Continue HD - Dialysis yesterday. Anticipate patient will need dialysis tomorrow before transfer to [facility] (9) Diabetes: Plan: - Type II diabetic, stop Lantus - does not appear to need this, hypoglycemic here. Suspect he no longer requires treatment for this given his weight loss and current glucose values Novolog switch to correction only - HbA1C not accurate in setting of ESRD on dialysis - DM2/low-salt and renal diet (10) Hypertension: Plan: -Continue on Amlodipine 10 mg -Continue Carvedilol 3.125 mg BID (11) Secondary hyperparathyroidism of renal origin: Plan: - Secondary to ESRD. (12) Anemia due to chronic kidney disease: Plan: - Hgb remains stable in 9-10 range, in setting of CKD, is at patient's baseline. - Continue to monitor. - No evidence of any acute bleeding Plan - continue mgt - SCDs, heparin for VTE ppx. - Full Code. - stable for downgrade to med/surg, planning on SNF on discharge Admission and Anticipated Discharge Date Admission Date: June 26, 2022 Supervising Physician Co-Signing Physician Notes Attending Attestation - Chart reviewed, care plan d/w PA Channing Trujillo. I agree w/ the dhillon components of his documentation. Miller Paniagua MD Subjective Attending: Dr. Paniagua Patient admitted 06/26/2022 for generalized weakness. He was found to have an elevated troponin with no evidence of ischemic change. Patient is unable to return home. Referrals been made to [facility]. It was anticipated patient will be discharged today but transportation is not available so patient will be discharged tomorrow. Patient has no acute complaints. Tolerated dialysis well yesterday. Review of Systems Review of Systems: A total of 10 systems was reviewed and is negative other than as listed in the HPI Physical Exam Physical Exam: GENERAL : No acute distress. Pleasant and cooperative EYES: No icterus, gaze conjugate NOSE: No evidence of epistaxis MOUTH: No lesions or candidiasis NECK: Supple LUNGS: CTA B/L, no wheezes, rales or rhonchi HEART: Regular, rate controlled ABDOMEN: Soft, NT, ND, BS Present EXTREMITIES: No LE edema, right pedal pulse intact. Dressings on the right ankle for chronic nonhealing wounds. Patient also has Tegaderm on his left stump. NEURO: A&OX3 Results & Data Results & Data ([facility]) Vital Signs (Past 12 Hours) Vital Signs Temp Pulse Resp BP Pulse Ox O2 Del Method 07/11/22 16:39 36.3 C L 70 18 144/74 H 95 Room Air 07/11/22 07:39 69 18 144/91 H 98 Room Air Critical Care Results & Data Vital Signs (Past 12 Hours) Vital Signs Temp Pulse Resp BP Pulse Ox O2 Del Method 07/11/22 16:39 36.3 C L 70 18 144/74 H 95 Room Air 07/11/22 07:39 69 18 144/91 H 98 Room Air Lab & Micro Results (Past 24 Hours) No Data to Display No Data to Display No Data to Display I & O Totals 24 Hours 07/10/22 07/11/22 07/12/22 06:59 06:59 06:59 Intake Total 560 / 560 Output Total 2 / 2 Balance 560 / 560 -2 / -2 Cumulative 06/26/22 10:58 thru 07/11/22 00:00 Intake Total 9625 Output Total 1109 Balance 8516 RT Ventilator Mngmt (Last Documented) Ventilator Ordered Settings Respiratory Rate 18 07/11/22 16:39 Ventilator - PT Measurements Respiratory Rate 18 PG Care Time/CCT Total # of Minutes Spent Total Time Spent with Patient: Total time spent is greater than 50% in coordination of care (as documented) at patient's floor/unit and/or counseling patient: Coding Level of Care Code 36493 Subseq Hosp Care Lvl 2 Diagnoses Physical deconditioning R53.81 PAD (peripheral artery disease) I73.9 Calciphylaxis cutis E83.59 Weakness R53.1 Elevated troponin R77.8 Coronary artery disease I25.10 Chronic diastolic congestive heart failure I50.32 End-stage renal disease on hemodialysis N18.6; Z99.2 Diabetes E11.9 Hypertension I10 Secondary hyperparathyroidism of renal origin N25.81 Anemia due to chronic kidney disease N18.5; D63.1 Chronic kidney disease stage: stage 5, not on chronic dialysis (1) Anemia due to chronic kidney disease Chronic kidney disease stage: stage 5, not on chronic dialysis Qualified Code(s): N18.5 - Chronic kidney disease, stage 5; D63.1 - Anemia in chronic kidney disease
--- NOTE | 2022-07-11 18:18 | Nephrology Progress Note ---
Date of Service July 11, 2022 Assessment & Plan (1) End-stage renal disease on hemodialysis: Plan: ESRD attributed to DKD, hypertensive nephrosclerosis, and vascular disease. Dialysis will be coordinated tomorrow per schedule. There is no emergent indication for treatment. Preliminary orders for treatment tomorrow entered into EHR. Maintained on HD TTS at [facility] (4.5hr, 2K 2.5Ca Na 137, HCO3 38, F-250 NR, 14 g needles, Qb500 Qd 800, EDW 130.5 Kg, heparin 3000 unit bolus + 2500 units q1 hr, L forearm AVF). AVF has been functioning well. Medications appropriately dosed for kidney function. Sevelamer 3 tabs QAC. Renal diet. (2) Anemia due to chronic kidney disease: Plan: Hgb stable. Epogen 67258 units provided with HD 07/05. Additional Epogen 22639 units with HD 07/10. (3) Hypertension: Plan: Tolerating Coreg and amlodipine as Rx. Volume status acceptable. Low sodium diet and 1 L daily fluid restriction. Document I/O's and daily AM weight. (4) Open leg wound: Plan: Ulcer in right lower extremity and several left BKA stump.Doppler demonstrating adequate blood flow to right lower extremity with notable atherosclerotic disease without any focal lesion. Skin biopsy negative for calciphylaxis, although there was recommendation for deeper tissue biopsy which Danielito refused. Denies pain. Ulcers appear to be healing. (5) Weakness: Plan: Antcipate discharge to [facility] once transportation has been arranged. Admission and Anticipated Discharge Date Admission Date: June 26, 2022 Subjective No acute events overnight. No complaints this evening. Expressed frustration that he was not discharged to [facility] today. Review of Systems Review of Systems: All systems reviewed & are unremarkable except as noted in HPI & below Physical Exam Constitutional: + morbidly obese; no acute distress Eyes: + anicteric sclerae; no corneal abnormality ENMT: Mouth: no oral mucosal abnormality and oral mucous membranes not dry Neck: normal visual inspection and trachea midline Respiratory: normal respiratory effort Auscultation: lungs clear to auscultation bilaterally and + diminished lung sounds Cardiovascular: Rate/Rhythm: regular rate Heart Sounds: normal S1, normal S2 and + murmur Extremities: + AV fistula; no edema Musculoskeletal: Extremities: no cyanosis and no clubbing Skin: + turgor decreased and + lesion (multiple scabbed ulcers on stump); no jaundice Neurologic: Motor/Sensory: no tremor and no asterixis Psychiatric: Orientation: alert and oriented x 3 Results & Data ([facility]) Vital Signs (Past 12 Hours) Vital Signs Temp Pulse Resp BP Pulse Ox O2 Del Method 07/11/22 16:39 36.3 C L 70 18 144/74 H 95 Room Air 07/11/22 07:39 69 18 144/91 H 98 Room Air Laboratory Results Laboratory Results - last 24 hr 07/10/22 07/11/22 07/11/22 20:56 08:17 08:40 WBC 8.22 RBC 3.69 L Hgb 10.7 L Hct 33.7 L MCV 91.3 MCH 29.0 MCHC 31.8 L RDW Std Deviation 53.9 H RDW Coeff of Dorcas 16.2 H Plt Count 226 MPV 10.9 Sodium Potassium Chloride Carbon Dioxide Anion Gap BUN Creatinine Est Cr Clr Drug Dosing Est GFR ( Amer) Est GFR (Non-Af Amer) BUN/Creatinine Ratio Glucose POC Glucose 111 H 125 H Calcium 07/11/22 07/11/22 07/11/22 08:40 12:35 17:22 WBC RBC Hgb Hct MCV MCH MCHC RDW Std Deviation RDW Coeff of Dorcas Plt Count MPV Sodium 130 L Potassium 4.6 Chloride 96 L Carbon Dioxide 23 Anion Gap 11 BUN 56 H D Creatinine 5.12 H* D Est Cr Clr Drug Dosing 21.4 Est GFR ( Amer) 13.1 Est GFR (Non-Af Amer) 11.3 BUN/Creatinine Ratio 10.9 Glucose 117 H POC Glucose 126 H 127 H Calcium 9.3 PG Care Time/CCT Total # of Minutes Spent Total Time Spent with Patient: Total time spent is greater than 50% in coordination of care (as documented) at patient's floor/unit and/or counseling patient: Coding Level of Care Code 47100 Subseq Hosp Care Lvl 3 Diagnoses End-stage renal disease on hemodialysis N18.6; Z99.2 Anemia due to chronic kidney disease N18.5; D63.1 Chronic kidney disease stage: stage 5, not on chronic dialysis Hypertension I10 Open leg wound S81.809A Weakness R53.1 (1) Anemia due to chronic kidney disease Chronic kidney disease stage: stage 5, not on chronic dialysis Qualified Code(s): N18.5 - Chronic kidney disease, stage 5; D63.1 - Anemia in chronic kidney disease
[2022-07-11] MEDS: ATORVASTATIN 20 MG TAB PO SCH (21:02)
[2022-07-11] MEDS: IBUPROFEN 200 MG TAB PO PRN (21:52)
[2022-07-12] MEDS: HEPARIN SOD 5,000 UNIT/0.5 ML VIAL SQ SCH ×2 (05:09→13:40)
[2022-07-12] MEDS ORDERED: HEPARIN IV BOLUS 3,000 UNITS in SYRINGE 0 ML IV ONE (07:00)
[2022-07-12] MEDS ORDERED: HEPARIN SOD (PORCINE) 1000 UNIT/ML IV ONE ×2 (07:00)
[2022-07-12] MEDS: SEVELAMER HCL 800 MG TABLET PO SCH ×2 (07:18→12:51)
[2022-07-12] MEDS: INSULIN ASPART PER UNIT SC SCH ×2 (07:25→13:39)
[2022-07-12 07:47] LABS: Hemoglobin 10.7 g/dl (14.0-18.0); Mean Corpuscular Hemoglobin 28.6 pg (25.0-34.0); Mean Corpuscular Hgb Conc 31.5 g/dL (32.0-36.0); Mean Corpuscular Volume 90.9 fL (80.0-100.0); Mean Platelet Volume 11.3 fL (9.4-12.4); Platelet Count 235 K/uL (130-400); RDW Coefficient of Variation 16.3 % (11.5-14.5); RDW Standard Deviation 54.7 fL (36.4-46.3); Red Blood Count 3.74 M/uL (4.63-6.08)
[2022-07-12 08:30] LABS: BUN Creatinine Ratio 12.5 (10-20); Calcium 9.3 mg/dl (8.5-10.1); Creatinine Clr Calc Pharmacy 17.3 ml/min; Est GFR (African American) 10.1 ml/min; Est GFR (Non-African American) 8.7 ml/min; Potassium 5.2 mmol/L (3.5-5.1)
--- NOTE | 2022-07-12 11:16 | Nephrology Progress Note ---
Date of Service July 12, 2022 Assessment & Plan (1) End-stage renal disease on hemodialysis: Plan: ESRD attributed to DKD, hypertensive nephrosclerosis, and vascular disease. Orders for HD today entered into the EHR and reviewed with dialysis nurse. Anticipated discharge to [facility]. Resume outpatient treatment per prior outpatient Rx post discharge. Maintained on HD TTS at [facility] (4.5hr, 2K 2.5Ca Na 137, HCO3 38, F-250 NR, 14 g needles, Qb500 Qd 800, EDW 130.5 Kg, heparin 3000 unit bolus + 2500 units q1 hr, L forearm AVF). AVF has been functioning well. Medications appropriately dosed for kidney function. Sevelamer 3 tabs QAC. Renal diet. (2) Anemia due to chronic kidney disease: Plan: Hgb stable. Epogen 67078 units provided with HD 07/05. Additional Epogen 06860 units with HD 07/10. (3) Hypertension: Plan: Tolerating Coreg and amlodipine as Rx. Volume status acceptable. Low sodium diet and 1 L daily fluid restriction. (4) Open leg wound: Plan: Ulcer in right lower extremity and several left BKA stump.Doppler demonstrating adequate blood flow to right lower extremity with notable atherosclerotic disease without any focal lesion. Skin biopsy negative for calciphylaxis, although there was recommendation for deeper tissue biopsy which Danielito refused. Denies pain. Ulcers appear to be healing. (5) Weakness: Plan: Antcipate discharge to [facility] tis afternoon. Admission and Anticipated Discharge Date Admission Date: June 26, 2022 Subjective No acute events overnight. No complaints this evening. Danielito was seen and evaluated during HD today. Access arterial pressure slightly high but Qb acceptable and otherwise no complications with dialysis treatment. Danielito is tolerating HD well. BP acceptable. He is expecting to be discharged later today. Review of Systems Review of Systems: All systems reviewed & are unremarkable except as noted in HPI & below Physical Exam Constitutional: + morbidly obese; no acute distress Eyes: + anicteric sclerae; no corneal abnormality ENMT: Mouth: no oral mucosal abnormality and oral mucous membranes not dry Neck: normal visual inspection and trachea midline Respiratory: normal respiratory effort Auscultation: lungs clear to auscultation bilaterally, + diminished lung sounds and + rales (few basilar) Cardiovascular: Rate/Rhythm: regular rate Heart Sounds: normal S1, normal S2 and + murmur Extremities: + AV fistula; no edema Musculoskeletal: Extremities: no cyanosis and no clubbing Skin: + turgor decreased and + lesion (multiple scabbed ulcers on stump); no jaundice Neurologic: Motor/Sensory: no tremor and no asterixis Psychiatric: Orientation: alert and oriented x 3 Results & Data ([facility]) Vital Signs (Past 12 Hours) Vital Signs Temp Pulse Pulse Pulse Resp BP BP 07/12/22 10:30 69 131/84 07/12/22 10:00 69 113/67 07/12/22 09:30 67 136/76 07/12/22 09:00 67 138/83 07/12/22 08:55 66 133/81 07/12/22 08:40 36.5 C 69 07/12/22 07:09 36.5 C 69 18 173/105 H Pulse Ox O2 Del Method 07/12/22 10:30 07/12/22 10:00 07/12/22 09:30 07/12/22 09:00 07/12/22 08:55 07/12/22 08:40 07/12/22 07:09 99 Room Air Laboratory Results Laboratory Results - last 24 hr 07/11/22 07/11/22 07/11/22 12:35 17:22 20:29 WBC RBC Hgb Hct MCV MCH MCHC RDW Std Deviation RDW Coeff of Dorcas Plt Count MPV Sodium Potassium Chloride Carbon Dioxide Anion Gap BUN Creatinine Est Cr Clr Drug Dosing Est GFR ( Amer) Est GFR (Non-Af Amer) BUN/Creatinine Ratio Glucose POC Glucose 126 H 127 H 127 H Calcium 07/12/22 07/12/22 07/12/22 07:02 07:02 07:13 WBC 9.10 RBC 3.74 L Hgb 10.7 L Hct 34.0 L MCV 90.9 MCH 28.6 MCHC 31.5 L RDW Std Deviation 54.7 H RDW Coeff of Dorcas 16.3 H Plt Count 235 MPV 11.3 Sodium 130 L Potassium 5.2 H Chloride 94 L Carbon Dioxide 26 Anion Gap 10 BUN 79 H D Creatinine 6.33 H* D Est Cr Clr Drug Dosing 17.3 Est GFR ( Amer) 10.1 Est GFR (Non-Af Amer) 8.7 BUN/Creatinine Ratio 12.5 Glucose 115 H POC Glucose 127 H Calcium 9.3 PG Care Time/CCT Total # of Minutes Spent Total Time Spent with Patient: Total time spent is greater than 50% in coordination of care (as documented) at patient's floor/unit and/or counseling patient: Coding Level of Care Code 19187 Subseq Hosp Care Lvl 3 Diagnoses End-stage renal disease on hemodialysis N18.6; Z99.2 Anemia due to chronic kidney disease N18.5; D63.1 Chronic kidney disease stage: stage 5, not on chronic dialysis Hypertension I10 Open leg wound S81.809A Weakness R53.1 (1) Anemia due to chronic kidney disease Chronic kidney disease stage: stage 5, not on chronic dialysis Qualified Code(s): N18.5 - Chronic kidney disease, stage 5; D63.1 - Anemia in chronic kidney disease
[2022-07-12] MEDS: NEPHROCAPS PO SCH (12:51)
[2022-07-12] MEDS: amLODIPine BESYLATE 5 MG TAB PO SCH (12:51)
[2022-07-12] MEDS: carvediloL 3.125 MG TAB PO SCH (12:51)
[2022-07-12] MEDS: ASPIRIN 81 MG ECTAB PO SCH (12:51)
[2022-07-12] MEDS: DOCUSATE SODIUM 100 MG CAP PO SCH (12:58)
[2022-07-12] MEDS: POLYETHYLENE (MIRALAX) 17 GM PACK PO SCH ×2 (12:58→13:40)
[2022-07-12] MEDS: IBUPROFEN 200 MG TAB PO PRN (13:41)
--- NOTE | 2022-07-12 13:54 | Discharge Summary ---
Date of Service July 12, 2022 Admission HPI Per Admitting Provider Michael Quinonez is a 62-year-old male with a past medical history of ESRD on dialysis M/W/F, diabetes, CAD, HFpEF, is presenting today with weakness. He states 6 months ago he had been doing well and then suddenly had a rapid decline in his ability to ambulate due to a lack of appetite in which he lost 40 pounds and believes most of this was his muscle mass. Over the past 3-4 days, he has felt profoundly weak and is barely able to stand himself out of his chair. He has no other specific complaints, specifically denies any chest pain or palpitations, shortness of breath, cough, orthopnea, fever, chills, or body aches. He has a left BKA and his right leg has numerous ulcers which she is being treated by wound care for currently and states his leg looks the same as it always has and is no different than how it appeared 1 week or even 1 month ago. He is chronic pain from the ulcers, again no worse than normal for him. His main concern today is that he is unable to take care of himself at home jose use he cannot stand or walk from his weakness. He is a diabetic and takes 10 units of insulin at midnight, sometimes takes extra units based on his diet over the course of the day. Yesterday his sugar was at 60, and he attributes this to the fact that he was in [facility] had a potassium 6.5 and was given extra insulin to lower this in addition to his home dose. He otherwise does not struggle with low blood sugars, but also does not check his sugar very frequently at all when he is at home. On presentation he is moderately hypertensive 149/106, otherwise vital signs are within normal limits. Labs notable for Pro-Gaurav of 2.35, though WBC normal at 5.63. BUN 27, creatinine 3.8, received dialysis today. His troponin is 49. CXR shows perihilar interstitial/vascular thickening with patchy bilateral hazy airspace opacities which are more pronounced on the left, possibly pulmonary edema or an atypical pneumonia. Principal Diagnosis Generalized weakness Nonspecific dermatitis-perhaps arterial ulcerations or calciphylaxis cutis Cardiomyopathy, HFrEF Discharge Exam Vitals reviewed Gen: AAOx3, NAD, appears chronically ill HEENT: Anicteric sclerae, EOMI CV: RRR no mgr nl S1S2 Pulm: CTAB no wcr Abd: +BS soft NT ND no masses or hernias Ext: 1+ lower extremity edema Skin: Numerous lower extremity circular superficial ulcerations throughout lower extremities bilaterally, right knee with large open superficial wound with copious exudate under Tegaderm Neuro: Full strength throughout Discharge Data Allergies Allergy/AdvReac Type Severity Reaction Status Date / Time doxycycline Allergy Unknown Rash Verified 06/26/22 17:29 cephalexin [From Keflex] AdvReac Intermediate ITCHING Verified 06/26/22 17:29 Consultations 06/26/22 13:01 ED Decision to Admit Stat 06/26/22 16:21 Consult Nephrology Routine Consult Vascular Surgery Routine 06/29/22 12:45 Consult General Surgery Routine 07/02/22 15:01 Consult Cardiology Routine Hospital Course (1) Physical deconditioning: Patient here for generalized weakness and deconditioning due to his chronic medical conditions and hyperphosphatemia due to him not taking phosphate binders cause itchy skin and multiple wounds on extremities and Left BKA stump. - Patient complains of Generalized weakness and 40 pound weight loss, has been an ongoing issue for 6 months, but has been acutely worse 3-4 days prior to presentation and had anorexia - Patient states that his appetite has increased and currently eating well - Weight on admission was 123 kg currently is 126.6 - No evidence of PNA on chest x ray, but some suggestion of congestion initially and improved since. - Blood cultures negative. Procalcitonin downtrending but may be chronically raised due to ESRD. Completed a 7 day course of daptomycin. No current cellulitis appreciated but certainly at risk given his extensive wounds -Wound care nurse has been managing his wounds. Patient should follow-up with the wound care center on discharge Physical therapy stating that patient is unable to tolerate stand pivot transfer at this time due to weakness, impaired balance, unable to stand on right leg only, therefore sliding board needed and would not be safe to transport with sliding board alone. Again stating that it would be unsafe for patient to return home alone and continue to recommend SNF with therapy at discharge. (2) PAD (peripheral artery disease): -Patient with a history of severe PAD - 4 years s/p left BKA. - Right lower extremity has several open circumferential wounds measuring several mm - several cm in diameter, dorsalis pedis and posterior tibialis pulses are not palpable on right, per review of wound care note from earlier last month this is not new. His pulses were weak but detectable with Doppler then. - He is not on any antiplatelets or statins. Started on ASA 81 mg and Lipitor 20mg. - He had arterial duplex done at [facility] in [place], it shows evidence of severe PAD - Vascular consulted, no plans for revascularization -Wound care team is managing his wounds. Recommend follow-up in wound care [facility] on discharge. 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 * Right lower leg on the anterior and posterior with the lateral ankle and dorsal foot. Should cleanse with saline and cover with Aquacel Ag and secure with Optifoam. This should be changed every 3 days and as needed * Wounds to right knee and the left distal stump should be treated with Skin- Prep to periphery. Allow to dry and cover with Tegaderm. Wound should be outlined. Change every 3 days and as needed * Drainage is expected and wanted. She cleaned with saline before reapplying Tegaderm * She called [facility] for wound care for follow-up at [phone] Recommend follow-up with dermatology as well (4) Weakness: - See above physical deconditioning - Therapy recommend that patient is motivated but unable to return to his home with current deficits. Best suited for a SNF level rehab stay considering his current skin breakdown, and unable to wear his prosthesis (5) Elevated troponin: - Troponin elevated secondary to ESRD TTE - global hypokinesis 35-40% with severe hypokinesis of anterolateral wall. No chest pain - appreciate cardiology consult - discussed care with Dr Vega Per cardiology note - At some point it may be reasonable to further evaluate his coronary artery status, but in the absence of any symptoms this is nonurgent. An outpatient Lexiscan could be obtained, dobutamine stress echocardiogram is less desirable given his poor echocardiographic windows. Was started on ASA 81 mg and Lipitor 20mg No chest pain or tightness. No shortness of breath. Follow-up as an outpatient for stress test (6) Coronary artery disease: - Per PCP note from April, patient denies history of this, no current medications. Cannot find any cardiology notes, he is declined echoes and referral to cardiology in the past. - Will have on a low-salt/DM diet while admitted. Given old regional wall motion abnormalities suspect he has had an NM in the past Continue ASA + low dose carvedilol and low dose statin - Lipitor 20mg (7) Chronic diastolic congestive heart failure: -Fluid status managed by hemodialysis (8) End-stage renal disease on hemodialysis: - Nephrology on consult - Continue HD - Dialysis here and has taken off a lot of fluid Continue outpatient dialysis (9) Diabetes: - Type II diabetic, stop Lantus - does not appear to need this, hypoglycemic here. Suspect he no longer requires treatment for this given his weight loss and current glucose values Novolog switch to correction only - HbA1C not accurate in setting of ESRD on dialysis - DM2/low-salt and renal diet (10) Hypertension: -Continue on Amlodipine 10 mg -Continue Carvedilol 3.125 mg BID (11) Secondary hyperparathyroidism of renal origin: - Secondary to ESRD. (12) Anemia due to chronic kidney disease: - Hgb remains stable in 9-10 range, in setting of CKD, is at patient's baseline. - Continue to monitor. - No evidence of any acute bleeding Plan - SCDs, heparin for VTE ppx. - Full Code. Stable for discharge to SNF Total Time Total Time Spent Total Time Spent (In Minutes): 35 minutes Discharge Plan Discharge Items Patient Disposition: Transfer [facility] Fac Reason For Visit: WEAKNESS Discharge Diagnosis: Generalized weakness and deconditioning Dermatitis HFrEF, cardiomyopathy Condition on Discharge: Fair Activity: As commented below Lifting: Gradually increase as tolerated Bathing: No limitations Exercise/Sports: Gradually increase as tolerated Exercise Comment: With physical and Occupational Therapy Non-emergency contact: Primary Care Provider and Business Analytics Manager Call non-emergency contact if: you have any medication questions and your symptoms worsen Follow-up/Referrals: Ashley Villagran DO [Primary Care Provider] - Diet: Carb Consistent or DM2, Dialysis Renal and Heart Healthy Fluids: 1200ml (5 cups) Addtl Attending Provider Instructions: You were admitted with generalized weakness and not found to have 1 specific problem. This could be secondary to multiple chronic medical conditions such as end-stage renal disease, anemia, but you are also found to have new onset cardiomyopathy. You do have chronic pain and wounds all over which may be from calciphylaxis but biopsy was nondiagnostic but had some features consistent with such. Please follow-up with a survey cad technician after discharge for further work-up on your skin lesions. You have had significant weight loss over the last 2 years. It seems some of this was intentional. You are found to have reduced function of your heart. You were seen by cardiology who recommends an outpatient nuclear stress test. Please arrange this through [facility] cardiology office. Continue your usual dialysis 3 times a week. Please continue to have wound care to all of your open wounds as directed. Pending Studies at Discharge: No Stand-Alone Forms: My [facility] Skilled Items Patient informed of condition?: Yes DNR: No Discharge Level of Care: Skilled Communicable Disease: No Discharge Prognosis: Improving Lines: None Urinary Catheter: No Medications and DC Order Prescriptions: New amlodipine 10 mg tablet 10 mg PO DAILY Qty: 30 0RF clonidine HCl 0.1 mg Tablet 0.1 mg PO Q12H PRN (Reason: SBP greater than 180) Qty: 60 0RF atorvastatin 20 mg Tablet 20 mg PO QPM Qty: 30 0RF carvedilol 3.125 mg Tablet 3.125 mg PO BID Qty: 60 0RF aspirin 81 mg Tablet,Delayed Release (Dr/Ec) 81 mg PO QAM Qty: 30 0RF ibuprofen 200 mg Tablet 200 mg PO DAILY PRN (Reason: pain) Qty: 30 0RF sevelamer HCl [Renagel] 800 mg Tablet 2,400 mg PO TIDM Qty: 270 0RF docusate sodium 100 mg Capsule 100 mg PO BID Qty: 60 0RF polyethylene glycol 3350 [Miralax] 17 gram Powder In Packet 17 g PO TID Qty: 100 0RF insulin aspart U-100 [Novolog U-100 Insulin aspart] 100 unit/mL Solution See Rx Instructions .ROUTE .COMPLEX Qty: 10 0RF Rx Instructions: Supplemental sliding scale Renal Caps 1 mg Capsule 1 cap PO QAM Qty: 30 0RF Discontinued Basaglar KwikPen U-100 Insulin 100 unit/mL (3 mL) insulin pen See Rx Instructions .ROUTE .COMPLEX Dose Instruction: INJECT 10 UNITS SUBCUTANEOUSLY ONCE DAILY Rx Instructions: INJECT 10 UNITS SUBCUTANEOUSLY ONCE DAILY-depending on BSG Phosphate Binder 0 mg PO DIRECTED Rx Instructions: with meals Discharge Orders: Discharge Order (Routine); Ordered 07/12/22 Ordered By: Priyanka Tompkins Admission Data Admit Date/Time: 06/26/22 13:56 Attending Provider: Priyanka Tompkins Admit Provider: Pancho Arreola Primary Care Provider: Ashley Villagran Other Providers: [facility] ; [facility] ; Pancho Arreola ; Kenny Molina ; Ronny Solomon ; Ede Serrano ; Vaughn Haddad ; Antonio Elizabeth ; David Barajas Jr ; Negro Wu ; Kennedy Maza ; Barbara Murray ; John Parsons ; Davis Vasquez ; Martin Vega ; Francis Carbajal Other Interventions: Discharge Summary Assessment (RN) Last Done: 07/12/22 14:04 Coding Level of Care Code D/C DAY MANAGEMENT >30 MINS Diagnoses Physical deconditioning R53.81 PAD (peripheral artery disease) I73.9 Calciphylaxis cutis E83.59 Weakness R53.1 Elevated troponin R77.8 Coronary artery disease I25.10 Chronic diastolic congestive heart failure I50.32 End-stage renal disease on hemodialysis N18.6; Z99.2 Diabetes E11.9 Hypertension I10 Secondary hyperparathyroidism of renal origin N25.81 Anemia due to chronic kidney disease N18.5; D63.1 Chronic kidney disease stage: stage 5, not on chronic dialysis
== END 2022-07-12 14:55 | DRG 299 ==
LOC: ED 11:10 → SUATTDRO 13:56 → EDINP 13:56 → 2W 15:54 → 3N 07-04 01:50
DX: L97.919 Non-pressure chronic ulcer of unspecified part of right lower leg with unspecified severity; E11.51 Type 2 diabetes mellitus with diabetic peripheral angiopathy without gangrene; Z99.2 Dependence on renal dialysis; I70.238 Atherosclerosis of native arteries of right leg with ulceration of other part of lower leg; E11.22 Type 2 diabetes mellitus with diabetic chronic kidney disease; I13.2 Hypertensive heart and chronic kidney disease with heart failure and with stage 5 chronic kidney disease, or end stage renal disease; N04.9 Nephrotic syndrome with unspecified morphologic changes; N18.6 End stage renal disease; R79.89 Other specified abnormal findings of blood chemistry; I50.32 Chronic diastolic (congestive) heart failure; D63.1 Anemia in chronic kidney disease; Z98.62 Peripheral vascular angioplasty status; I25.10 Atherosclerotic heart disease of native coronary artery without angina pectoris; I42.9 Cardiomyopathy, unspecified; E83.59 Other disorders of calcium metabolism; L30.8 Other specified dermatitis; E83.39 Other disorders of phosphorus metabolism; Z88.1 Allergy status to other antibiotic agents; Z89.512 Acquired absence of left leg below knee; Z79.4 Long term (current) use of insulin; N25.81 Secondary hyperparathyroidism of renal origin; L94.2 Calcinosis cutis

== ENCOUNTER 2022-09-30 15:11 | Inpatient (IN) ==
--- NOTE | 2022-09-30 15:50 | Emergency Department Note ---
Impression & Plan Abscess of right leg, Dialysis patient, History of below knee amputation, Anemia ED Provider Note NAME: AMAYA KRUEGER JR AGE: 62 SEX: M : 1960 ARRIVES VIA: Ambulance INFORMANT: [Patient][nursing] ED PROVIDER(S): [Channing Edmondson MD] CHIEF COMPLAINT: Leg injury, leg pain HISTORY OF PRESENT ILLNESS: The patient is a 62-year-old male who is on dialysis who presents to the ED with right calf and leg discomfort. He states that the pain started last week and the area was firm, tender and inflamed. Things have improved significantly. There has been no fever, no chills. The patient denies any fall or trauma. The patient states that he had an ultrasound today that showed a fluid collection. He was sent here for the possibility of abscess. The patient's right leg ultrasound performed today shows a 24.5 x 3.8 x 4.6 cm large complex area extending down towards the ankle, abscess or hematoma was considered. PMHx/PSHx: See Below SOCIAL HISTORY: See Below. PHYSICAL EXAM: GENERAL: Patient is in no acute distress. HEENT: No acute trauma, normocephalic atraumatic, mucous membranes moist, no nasal congestion. NECK: No stridor, no adenopathy, no meningismus, trachea is midline. LUNGS: Clear to auscultation bilaterally, no wheeze, no rhonchi, breath sounds equal. HEART: Without murmurs gallops or rubs, regular rate and rhythm. ABDOMEN: Soft, nontender, bowel sounds positive, no peritonitis. EXTREMITIES: No cyanosis or edema. Left below the knee amputation. The patient has a potential fluid-like collection felt along the right lateral proximal calf. There is no erythema, no tenderness, no warmth. There is a bandage on the right ankle and foot. No right toe erythema. NEUROLOGIC: Oriented x 3, no acute motor or sensory deficits, no focal weakness. SKIN: No rash, no jaundice, no diaphoresis. DIFFERENTIAL DIAGNOSIS: Abscess, hematoma, muscle tear, DVT, cellulitis, sepsis, among others. EMERGENCY DEPARTMENT COURSE/PROCEDURES: Prior/Outside records reviewed: Outpatient imaging notes. ECG per my interpretation: Indication was possible sepsis. The ECG shows a normal sinus rhythm with a rate of 83. There is some baseline artifact and nonspecific ST change. There is no ST elevation, no PVCs. QTc is 481. Compared to an ECG from 19 July 2022, I see no significant change. Continuous Cardiac Monitoring per my interpretation: An order was placed for continuous cardiac monitoring. The monitor shows a rate of 81 with normal sinus rhythm. MEDICAL DECISION MAKING: There is no leukocytosis. The patient is anemic but this appears relatively baseline when looking back at previous testing. There was a normal platelet count. Creatinine was elevated but this is consistent with his dialysis need. No electrolyte imbalance in need of emergent correction. Lactic acid level was not elevated making severe sepsis less likely. There were some liver enzyme elevations seen, these had been documented before. Procalcitonin level was elevated consistent with potential bacterial infection. Right leg a CT scan shows a potential abscess. On exam, there was no erythema or warmth or significant discomfort with palpation of the right calf. No drainage seen. Patient was not febrile or toxic in appearance. The patient received IV cefepime and IV Flagyl as antibiotic coverage. I spoke with general surgery, Dr. Parsons. The patient will be hospitalized on the medicine service with a surgical consult. OR intervention may be necessary in the very near future. Patient was not felt stable for discharge home. I did speak with case management, I talked to the patient. The on-call hospitalist was consulted. DISPOSITION: The patient's presentation and findings warrant a hospital stay. Past Med/Surg History Medical History Acute blood loss anemia Acute kidney injury Amputated toe of left foot Amputated toe of right foot Anasarca Bilateral cellulitis of lower leg ESRD (end stage renal disease) on dialysis Gangrene Gangrene HTN (hypertension) Hyperparathyroidism due to end stage renal disease on dialysis Metabolic acidosis Nephrotic syndrome Obesity Osteomyelitis Proteinuria Surgical History History of angioplasty of peripheral vessel S/P arteriovenous (AV) fistula creation Status post incision and drainage left foot wound Family History Other Diabetes Family history non-contributory Hypertension Social History Smoking Status: Never smoker Second Hand Exposure: No; Hx Alcohol Use: Yes Hx Substance Use: No Preferred Language: Sami Communication Ability: Effective Visual Impairment: No Limitations Hearing Ability: Hard of Hearing Wad Lubricator Required: No Beliefs That Will Affect Care: None marital status: Single Current Living Situation: Alone Feels Safe at Home: Yes caffeine: Yes during the past year weight has: remained stable Seatbelt Use: always Sunscreen Use: No Assistive Devices: Walker and Wheelchair Allergies Allergies Allergy/AdvReac Type Severity Reaction Status Date / Time doxycycline Allergy Intermediate Rash Verified 09/30/22 17:43 cephalexin [From Keflex] AdvReac Intermediate ITCHING Verified 09/30/22 17:43 Home Meds Previous Rx's Medication Instructions Recorded amlodipine 10 mg tablet 10 mg PO DAILY #30 tabs 07/12/22 aspirin 81 mg tablet,delayed 81 mg PO QAM #30 tabs 07/12/22 release atorvastatin 20 mg tablet 20 mg PO QPM #30 tabs 07/12/22 carvedilol 3.125 mg tablet 3.125 mg PO BID #60 tabs 07/12/22 clonidine HCl 0.1 mg tablet 0.1 mg PO Q12H PRN SBP greater 07/12/22 than 180 #60 tabs docusate sodium 100 mg capsule 100 mg PO BID #60 caps 07/12/22 ibuprofen 200 mg tablet 200 mg PO DAILY PRN pain #30 tabs 07/12/22 insulin aspart U-100 100 unit/mL See Rx Instructions .Route 07/12/22 subcutaneous solution (Novolog .COMPLEX #10 mL U-100 Insulin aspart) polyethylene glycol 3350 17 gram 17 g PO TID #100 ea 07/12/22 oral powder packet (Miralax) sevelamer HCl 800 mg tablet 2,400 mg PO TIDM #270 tabs 07/12/22 (Renagel) vitamin B complex and vitamin C 1 cap PO QAM #30 caps 07/12/22 no.20-folic acid 1 mg capsule (Renal Caps) Results & Data (ED) Vital Signs Vital Signs - 24 hr 09/30/22 15:18 09/30/22 15:35 09/30/22 15:53 Temperature 36.6 C Temperature Source Oral Pulse Rate 87 80 Pulse Rate from SpO2 Sensor Pulse Rhythm Regular Pulse Strength Normal Respiratory Rate 18 Respiratory Effort / Characteristics Non-Labored Spontaneous Respiratory Depth Normal Respiratory Pattern Regular Blood Pressure 122/86 Blood Pressure Mean 98 Blood Pressure Position Lying Pulse Oximetry 94 94 Oxygen Delivery Method Room Air Room Air Sepsis Recent Fever Within 48 Hours No Sepsis New/Unexplained Change in Mental Status No Sepsis Action Taken by Nursing No Action Required 09/30/22 15:17 09/30/22 15:20 09/30/22 15:30 Temperature Temperature Source Pulse Rate 84 82 86 Pulse Rate from SpO2 Sensor 84 82 86 Pulse Rhythm Pulse Strength Respiratory Rate 23 23 25 H Respiratory Effort / Characteristics Respiratory Depth Respiratory Pattern Blood Pressure Blood Pressure Mean Blood Pressure Position Pulse Oximetry 98 92 92 Oxygen Delivery Method Sepsis Recent Fever Within 48 Hours Sepsis New/Unexplained Change in Mental Status Sepsis Action Taken by Nursing 09/30/22 15:40 09/30/22 15:50 09/30/22 16:00 Temperature Temperature Source Pulse Rate 79 81 Pulse Rate from SpO2 Sensor 80 80 Pulse Rhythm Pulse Strength Respiratory Rate 24 19 20 Respiratory Effort / Characteristics Respiratory Depth Respiratory Pattern Blood Pressure Blood Pressure Mean Blood Pressure Position Pulse Oximetry 97 94 Oxygen Delivery Method Sepsis Recent Fever Within 48 Hours Sepsis New/Unexplained Change in Mental Status Sepsis Action Taken by Nursing 09/30/22 16:10 09/30/22 16:20 09/30/22 16:49 Temperature Temperature Source Pulse Rate 81 78 Pulse Rate from SpO2 Sensor Pulse Rhythm Pulse Strength Respiratory Rate 12 14 Respiratory Effort / Characteristics Respiratory Depth Respiratory Pattern Blood Pressure 133/77 Blood Pressure Mean 95 Blood Pressure Position Pulse Oximetry Oxygen Delivery Method Sepsis Recent Fever Within 48 Hours Sepsis New/Unexplained Change in Mental Status Sepsis Action Taken by Nursing 09/30/22 16:49 09/30/22 16:50 09/30/22 17:00 Temperature Temperature Source Pulse Rate 82 83 Pulse Rate from SpO2 Sensor 82 83 Pulse Rhythm Pulse Strength Respiratory Rate 19 23 Respiratory Effort / Characteristics Respiratory Depth Respiratory Pattern Blood Pressure 139/81 Blood Pressure Mean 100 Blood Pressure Position Pulse Oximetry 95 93 Oxygen Delivery Method Room Air Sepsis Recent Fever Within 48 Hours Sepsis New/Unexplained Change in Mental Status Sepsis Action Taken by Nursing 09/30/22 17:00 09/30/22 17:10 Temperature Temperature Source Pulse Rate 79 80 Pulse Rate from SpO2 Sensor 79 80 Pulse Rhythm Pulse Strength Respiratory Rate 12 11 L Respiratory Effort / Characteristics Respiratory Depth Respiratory Pattern Blood Pressure Blood Pressure Mean Blood Pressure Position Pulse Oximetry 96 98 Oxygen Delivery Method Sepsis Recent Fever Within 48 Hours Sepsis New/Unexplained Change in Mental Status Sepsis Action Taken by Alf Medications Current Medication List: was personally reviewed by ca Laboratory Data Attestation: I reviewed the patient's lab results. 09/30/22 15:29 09/30/22 15:29 Lab Results 09/30/22 09/30/22 09/30/22 Range/Units 15:29 15:29 15:29 WBC 6.63 (4.8-10.8) K/ul RBC 3.38 L (4.70-6.10) M/uL Hgb 9.3 L (14.0-18.0) g/dl Hct 30.3 L (42.0-52.0) % MCV 89.6 (80.0-100.0) fL MCH 27.5 (25.0-34.0) pg MCHC 30.7 L (32.0-36.0) g/dL RDW Std Deviation 59.4 H (36.4-46.3) fL RDW Coeff of Dorcas 18.4 H (11.5-14.5) % Plt Count 224 (130-400) K/uL MPV 11.3 (9.4-12.4) fL Immature Gran % (Auto) 0.3 % Neut % (Auto) 72.5 % Lymph % (Auto) 18.1 % [place] % (Auto) 7.1 % Eos % (Auto) 1.4 % Baso % (Auto) 0.6 % Neut # (Auto) 4.81 (1.40-6.50) K/uL Lymph # (Auto) 1.20 (1.2-3.4) K/uL [place] # (Auto) 0.47 (0.11-0.59) K/uL Eos # (Auto) 0.09 (0-0.50) K/uL Baso # (Auto) 0.04 (0-0.2) K/uL Immature Gran # (Auto) 0.02 (0.01-0.20) K/uL Sodium 136 (136-145) mmol/L Potassium 3.7 (3.5-5.1) mmol/L Chloride 94 L (98-107) mmol/L Carbon Dioxide 38 H (21-32) mmol/L Anion Gap 4 (3-11) BUN 42 H (6-23) mg/dl Creatinine 3.56 H (0.6-1.4) mg/dl Est Cr Clr Drug Dosing 30.4 ml/min Est GFR ( Amer) 20.3 ml/min Est GFR (Non-Af Amer) 17.5 ml/min BUN/Creatinine Ratio 11.8 (10-20) Glucose 110 H (70-99(Fasting)) mg/dl Lactate 1.8 (0.4-2.0) mmol/L Calcium 9.4 (8.5-10.1) mg/dl Magnesium 2.0 (1.7-2.4) mg/dl Total Bilirubin 2.0 H (0.2-1.0) mg/dl Direct Bilirubin 1.0 H (0-0.2) mg/dl AST 11 L (13-39) U/L ALT 4 L (7-52) U/L Alkaline Phosphatase 106 H (34-104) U/L Total Protein 6.7 (6.0-8.3) gm/dl Albumin 3.3 L (3.4-5.0) gm/dl Procalcitonin (0-0.5) ng/ml 09/30/22 Range/Units 15:29 WBC (4.8-10.8) K/ul RBC (4.70-6.10) M/uL Hgb (14.0-18.0) g/dl Hct (42.0-52.0) % MCV (80.0-100.0) fL MCH (25.0-34.0) pg MCHC (32.0-36.0) g/dL RDW Std Deviation (36.4-46.3) fL RDW Coeff of Dorcas (11.5-14.5) % Plt Count (130-400) K/uL MPV (9.4-12.4) fL Immature Gran % (Auto) % Neut % (Auto) % Lymph % (Auto) % [place] % (Auto) % Eos % (Auto) % Baso % (Auto) % Neut # (Auto) (1.40-6.50) K/uL Lymph # (Auto) (1.2-3.4) K/uL [place] # (Auto) (0.11-0.59) K/uL Eos # (Auto) (0-0.50) K/uL Baso # (Auto) (0-0.2) K/uL Immature Gran # (Auto) (0.01-0.20) K/uL Sodium (136-145) mmol/L Potassium (3.5-5.1) mmol/L Chloride (98-107) mmol/L Carbon Dioxide (21-32) mmol/L Anion Gap (3-11) BUN (6-23) mg/dl Creatinine (0.6-1.4) mg/dl Est Cr Clr Drug Dosing ml/min Est GFR ( Amer) ml/min Est GFR (Non-Af Amer) ml/min BUN/Creatinine Ratio (10-20) Glucose (70-99(Fasting)) mg/dl Lactate (0.4-2.0) mmol/L Calcium (8.5-10.1) mg/dl Magnesium (1.7-2.4) mg/dl Total Bilirubin (0.2-1.0) mg/dl Direct Bilirubin (0-0.2) mg/dl AST (13-39) U/L ALT (7-52) U/L Alkaline Phosphatase (34-104) U/L Total Protein (6.0-8.3) gm/dl Albumin (3.4-5.0) gm/dl Procalcitonin 1.50 H (0-0.5) ng/ml Administered Medications Discontinued Medications Cefepime HCl (Maxipime) 2,000 mg in 20 mls @ 5 mls/min IV NOW STA; Protocol Stop: 09/30/22 17:09 Last Admin: 09/30/22 17:18 Dose: 5 mls/min Documented By: [facility] Imaging Data Radiologist's Impression: Lower Extremity CT 09/30/22 16:16 CT tib/fib RT wo con CLINICAL HISTORY: Right lower leg pain. Possible abscess, high creatinine. COMPARISON STUDY: CT of the right tibia and fibula July 19, 2022. TECHNIQUE: Axial images of the right tibia and fibula/lower leg were obtained without IV contrast. Sagittal and coronal reconstructions were viewed. Automated exposure control was utilized for the study. A dose lowering technique was utilized adhering to the principles of ALARA. FINDINGS: No acute fracture within the right tibia or fibula is identified. There is no evidence for acute osteomyelitis. The right calcaneus is partially obscured on this exam. Note is made of a wound of the posterior right lower leg which was shown on prior CT. There has been interval development of an associated large fluid collection overlying the posterior musculature of the right lower leg since prior CT. This multiloculated fluid collection contains several locules of gas. This overlies the soleus and gastrocnemius muscles. This collection measure approximately 26 x 8.7 x 4.4 cm and is consistent with a large abscess. This contains a tubular hypodensity which could reflect a residual portion of the Achilles. The Achilles is likely torn, although suboptimally assessed by CT but extensive vascular calcification within the right lower leg is noted. Soft tissue calcifications are again noted. Alignment of the right knee is anatomic there is no right knee joint effusion. IMPRESSION: 1. Posterior right lower leg wound with interval development of a large multilo culated collection of the posterior right lower leg which measures approximately 26 x 8.7 x 4.4 cm. This is consistent with a large abscess. This contains several locules of gas which could be due to the open wound or represent a gas- forming infectious process. Suspected disruption of the Achilles tendon, as described above, suboptimally assessed by CT. 2. No acute fracture. No evidence for acute osteomyelitis within the right tibia or fibula. Calcaneus partially imaged on this study. ACT 112: Negative or not required by law. Electronically signed by: Andres Overton M.D. 09/30/2022 5:01 PM Discharge Plan Visit Data Chief Complaint: Leg Injury/Pain Stated Complaint: ABCESS ON RIGHT LEG ED Provider: Channing Edmondson Discharge Problem: Abscess of right leg, Dialysis patient, History of below knee amputation, Anemia Patient Disposition: Admitted As Inpatient Condition: Fair Forms Stand Alone Forms: My [facility] Prescriptions Prescriptions: No Action amlodipine 10 mg tablet 10 mg PO DAILY Qty: 30 0RF clonidine HCl 0.1 mg Tablet 0.1 mg PO Q12H PRN (Reason: SBP greater than 180) Qty: 60 0RF atorvastatin 20 mg Tablet 20 mg PO QPM Qty: 30 0RF carvedilol 3.125 mg Tablet 3.125 mg PO BID Qty: 60 0RF aspirin 81 mg Tablet,Delayed Release (Dr/Ec) 81 mg PO QAM Qty: 30 0RF ibuprofen 200 mg Tablet 200 mg PO DAILY PRN (Reason: pain) Qty: 30 0RF sevelamer HCl [Renagel] 800 mg Tablet 2,400 mg PO TIDM Qty: 270 0RF docusate sodium 100 mg Capsule 100 mg PO BID Qty: 60 0RF polyethylene glycol 3350 [Miralax] 17 gram Powder In Packet 17 g PO TID Qty: 100 0RF insulin aspart U-100 [Novolog U-100 Insulin aspart] 100 unit/mL Solution See Rx Instructions .ROUTE .COMPLEX Qty: 10 0RF Rx Instructions: Supplemental sliding scale Renal Caps 1 mg Capsule 1 cap PO QAM Qty: 30 0RF Referrals Referrals: Ashley Villagran DO [Primary Care Provider] -
[2022-09-30 15:53] LABS: Basophils # (auto) 0.04 K/uL (0-0.2); Basophils % (auto) 0.6 %; Eosinophils # (auto) 0.09 K/uL (0-0.50); Eosinophils % (auto) 1.4 %; Hematocrit (blood only) 30.3 % (42.0-52.0); Hemoglobin 9.3 g/dl (14.0-18.0); Immature Granulocytes # (auto) 0.02 K/uL (0.01-0.20); Immature Granulocytes % (auto) 0.3 %; Lymphocytes % (auto) 18.1 %; Mean Corpuscular Hemoglobin 27.5 pg (25.0-34.0); Mean Corpuscular Hgb Conc 30.7 g/dL (32.0-36.0); Mean Corpuscular Volume 89.6 fL (80.0-100.0); Mean Platelet Volume 11.3 fL (9.4-12.4); Monocytes # (auto) 0.47 K/uL (0.11-0.59); Monocytes % (auto) 7.1 %; Neutrophils # (auto) 4.81 K/uL (1.40-6.50); Neutrophils % (auto) 72.5 %; Platelet Count 224 K/uL (130-400); RDW Coefficient of Variation 18.4 % (11.5-14.5); RDW Standard Deviation 59.4 fL (36.4-46.3); Red Blood Count 3.38 M/uL (4.70-6.10); White Blood Count 6.63 K/ul (4.8-10.8)
[2022-09-30 16:09] LABS: Albumin Level 3.3 gm/dl (3.4-5.0); BUN Creatinine Ratio 11.8 (10-20); Calcium 9.4 mg/dl (8.5-10.1); Creatinine Clr Calc Pharmacy 30.4 ml/min; Est GFR (African American) 20.3 ml/min; Est GFR (Non-African American) 17.5 ml/min; Potassium 3.7 mmol/L (3.5-5.1); Total Protein 6.7 gm/dl (6.0-8.3)
--- NOTE | 2022-09-30 17:02 | CT Scan Report ---
CT tib/fib RT wo con CLINICAL HISTORY: Right lower leg pain. Possible abscess, high creatinine. COMPARISON STUDY: CT of the right tibia and fibula July 19, 2022. TECHNIQUE: Axial images of the right tibia and fibula/lower leg were obtained without IV contrast. Sa gittal and coronal reconstructions were viewed. Automated exposure control was utilized for the study . A dose lowering technique was utilized adhering to the principles of ALARA. FINDINGS: No acute fracture within the right tibia or fibula is identified. There is no evidence for acute osteomyelitis. The right calcaneus is partially obscured on this exam. Note is made of a wound of the posterior right lower leg which was shown on prior CT. There has been interval development of an associated large fluid collection overlying the posterior musculature of the right lower leg since prior CT. This multiloculated fluid collection contains several locules of gas. This overlies the so leus and gastrocnemius muscles. This collection measure approximately 26 x 8.7 x 4.4 cm and is consis tent with a large abscess. This contains a tubular hypodensity which could reflect a residual portion of the Achilles. The Achilles is likely torn, although suboptimally assessed by CT but extensive vas cular calcification within the right lower leg is noted. Soft tissue calcifications are again noted. Alignment of the right knee is anatomic there is no right knee joint effusion. IMPRESSION: 1. Posterior right lower leg wound with interval development of a large multiloculated collection of the posterior right lower leg which measures approximately 26 x 8.7 x 4.4 cm. This is consistent with a large abscess. This contains several locules of gas which could be due to the open wound or repres ent a gas-forming infectious process. Suspected disruption of the Achilles tendon, as described above , suboptimally assessed by CT. 2. No acute fracture. No evidence for acute osteomyelitis within the right tibia or fibula. Calcaneus partially imaged on this study. ACT 112: Negative or not required by law. Electronically signed by: Andres Overton M.D. 09/30/2022 5:01 PM
[2022-09-30] MEDS ORDERED: CEFEPIME 2,000 MG/20 ML VIAL IV STA (17:06)
[2022-09-30] MEDS ORDERED: metroNIDAZOLE 500 MG/100 ML BAG IV STA (17:40)
--- NOTE | 2022-09-30 18:50 | History & Physical Report ---
Date of Service September 30, 2022 Assessment & Plan (1) Localized swelling of right lower leg: Plan: 62 y/o male w/ PMHx of ESRD on dialysis (L wrist fistula), L BKA, CAD, HFrEF, PAD, DM, and HTN who presents from [facility] via EMS w/ right lower leg fluid collection as well as open achilles wound. Vitals stable. He is without systemic infection symptoms. Discussed with gen surg; has open achilles wound w/ purulent drainage. Will consult ortho given location. Had wound debridement by [facility] ortho Dr. John Trimble 07/2022 while patient was hospitalized. Will consult vascular given CT scan of leg showing large multiloculated collection; patient has PAD and 07/29/22 right SFA and popliteal angioplasty procedure. Had transient dusky appearance and pain 1 month post-op per reports. Consider hematoma vs abscess. S/p cefepime+flagyl in ED. Reviewed prior cultures. Consider transition to Zosyn after hemodialysis session for better anaerobic coverage. Check coags. (2) PAD (peripheral artery disease): Plan: Per scanned vascular surgery report, had 07/29/22 RLE angiogram w/ right SFA and popliteal angioplasty. He had hospitalization during which he had RLE/achilles tendon wound debridement. Continue home baby ASA and statin. (3) Heart failure with mid-range ejection fraction: Plan: 06/2022 echo w/ ef 35-40% (see paper chart). Mixed systolic and diastolic CHF. Use IV fluids w/ caution. (4) Diabetes: Plan: Per [facility] 07/2022 meds list, was on Glargine 10u daily and Aspart 4u TID. Patient not on insulin per [facility] 09/2022 meds list. A1c 06/2022 4.7 Check BSG ACHS. Check A1c, lipids in AM. (5) End-stage renal disease on hemodialysis: Plan: [facility] dialysis per patient, last session on 09/28. Follows [facility]. Nephro consulted. Continue home sevelamer. Anemia; at/slightly below baseline of 10s. (6) Hypertension: Plan: Continue home metoprolol succinate and PO hydralazine. Plan FEN/GI: NPO. Dialysis, DM2, HH diet when resumed. ppx: SCD only in RLE code: full dispo: med surg History of Present Illness Chief Complaint: right lower leg complaint Primary Care Provider: Ashley Villagran, DO 62 y/o male w/ PMHx of ESRD on dialysis (L wrist fistula), L BKA, CAD, HFrEF, PAD, DM, and HTN who presents from [facility] via EMS after an ultrasound of his right leg suggested possible abscess vs hematoma. Patient has had right ankle/achilles wound x months. He was admitted to [facility] 07/2022 and had achilles debridement. He reports 3 wks of swelling at R calf w/ severe pain. Swelling subsided greatly since 2 days ago. He denies illness symptoms such as fever/chills, cough, n/v/d. Per records, he had a right SFA and popliteal angioplasty 07/29/22. ED course: cefepime+Flagyl. gen surg contacted, to see patient in ED. Allergies Allergy/AdvReac Type Severity Reaction Status Date / Time doxycycline Allergy Intermediate Rash Verified 09/30/22 17:43 cephalexin [From Keflex] AdvReac Intermediate ITCHING Verified 09/30/22 17:43 Home Medications Medication Instructions Recorded Confirmed Type aspirin 81 mg tablet,delayed 81 mg PO QAM #30 tabs 07/12/22 09/30/22 Rx release atorvastatin 20 mg tablet 20 mg PO QPM #30 tabs 07/12/22 09/30/22 Rx sevelamer HCl 800 mg tablet 2,400 mg PO TIDM #270 tabs 07/12/22 09/30/22 Rx (Renagel) acetaminophen 325 mg tablet 650 mg PO Q4H PRN PAIN/FEVER 09/30/22 09/30/22 History (Tylenol) amoxicillin 500 mg-potassium 1 tab PO QPM 09/30/22 09/30/22 History clavulanate 125 mg tablet carboxymethylcellulose sodium 1 % 1 drp OPB QID 09/30/22 09/30/22 History eye drops (Artificial Tears (carboxymethylcellulose)) diclofenac sodium 1 % topical gel 1 g topical QID PRN Pain 09/30/22 09/30/22 History folic acid 1 mg tablet 1 mg PO QDL 09/30/22 09/30/22 History gabapentin 100 mg capsule 100 mg PO QDL 09/30/22 09/30/22 History hydralazine 25 mg tablet 25 mg PO TID 09/30/22 09/30/22 History menthol 0.44 %-zinc oxide 20.6 % 1 applic topical BID PRN 09/30/22 09/30/22 History topical ointment (Calmoseptine) SCARUM/BUTTOCKS NEEDED metoprolol succinate 25 mg 25 mg PO BID 09/30/22 09/30/22 History tablet,extended release 24 hr multivitamin 1 tab PO DAILY 09/30/22 09/30/22 History nystatin 100,000 unit/gram topical 1 applic topical BID 09/30/22 09/30/22 History powder pantoprazole 40 mg tablet,delayed 40 mg PO AMHS 09/30/22 09/30/22 History release polyethylene glycol 3350 17 gram 17 g PO BIDM 09/30/22 09/30/22 History oral powder packet (Miralax) potassium chloride 20 mEq 20 meq PO QDL 09/30/22 09/30/22 History tablet,extended release(part/cryst) silver sulfadiazine 1 % topical 1 applic topical TID 09/30/22 09/30/22 History cream tramadol 50 mg tablet 50 mg PO Q6H PRN Pain 09/30/22 09/30/22 History trazodone 50 mg tablet 50 mg PO HS 09/30/22 09/30/22 History triamcinolone acetonide 0.1 % 1 applic topical BID 09/30/22 09/30/22 History topical ointment Past Med/Surg History Medical History Acute blood loss anemia Acute kidney injury Amputated toe of left foot Amputated toe of right foot Anasarca Bilateral cellulitis of lower leg ESRD (end stage renal disease) on dialysis Gangrene Gangrene HTN (hypertension) Hyperparathyroidism due to end stage renal disease on dialysis Metabolic acidosis Nephrotic syndrome Obesity Osteomyelitis Proteinuria Surgical History History of angioplasty of peripheral vessel S/P arteriovenous (AV) fistula creation Status post incision and drainage left foot wound Family History Other Diabetes Family history non-contributory Hypertension Social History Smoking Status: Never smoker Second Hand Exposure: No; Do You Dip or Chew Tobacco: No; Tobacco Cessation Education Requested by Patient: No Hx Alcohol Use: Yes Alcohol type: other Hx Substance Use: No Preferred Language: Russian Communication Ability: Effective Visual Impairment: No Limitations Hearing Ability: Hard of Hearing Graphic Designer Required: No Beliefs That Will Affect Care: None marital status: Single Current Living Situation: Halfway Other Information That Helps Us Care for You: No Feels Safe at Home: Yes Safety Concerns: Feels Safe At This Time caffeine: Yes during the past year weight has: remained stable Seatbelt Use: always Sunscreen Use: No Assistive Devices: Other Assistive Devices Comment: Uses wheelchair Review of Systems Review of Systems: All systems reviewed & are unremarkable except as noted in HPI & below Physical Exam Physical Exam: General: Grossly A&O. NAD. Cooperative. HEENT: Atraumatic, normocephalic. EOMI Pulm: CTAB. -wheezes, -rales, -rhonchi. No respiratory distress. Cardiac: RRR, -mrg. L wrist AV fistula w/ thrill. Abdominal: Nontender, nondistended, soft. Msk: L BKA. R calf swelling, nontender. No ttp at popliteal area. R ankle wrapped in bandage which is clean/dry/intact. Neuro: Sensation to light touch intact at upper and lower extremities. Moving upper and lower extremities. Integ: Numerous mild skin sores/abrasions at R knee/thigh area, reportedly chronic. Results & Data Results & Data ([facility]) Vital Signs (Past 12 Hours) Vital Signs Temp Pulse Resp BP Pulse Ox O2 Del Method 09/30/22 17:10 80 11 L 98 09/30/22 17:00 79 12 96 09/30/22 17:00 139/81 09/30/22 16:50 83 23 93 09/30/22 16:49 82 19 95 Room Air 09/30/22 16:49 133/77 09/30/22 16:20 78 14 09/30/22 16:10 81 12 09/30/22 16:00 20 09/30/22 15:50 81 19 94 09/30/22 15:40 79 24 97 09/30/22 15:30 86 25 H 92 09/30/22 15:20 82 23 92 09/30/22 15:17 84 23 98 09/30/22 15:53 94 Room Air 09/30/22 15:35 80 09/30/22 15:18 36.6 C 87 18 122/86 94 Room Air Laboratory Results Cardiac Enzymes 09/30/22 Range/Units 15:29 AST 11 L (13-39) U/L CBC 09/30/22 Range/Units 15:29 WBC 6.63 (4.8-10.8) K/ul RBC 3.38 L (4.70-6.10) M/uL Hgb 9.3 L (14.0-18.0) g/dl Hct 30.3 L (42.0-52.0) % Plt Count 224 (130-400) K/uL Neut # (Auto) 4.81 (1.40-6.50) K/uL Lymph # (Auto) 1.20 (1.2-3.4) K/uL Meagher # (Auto) 0.47 (0.11-0.59) K/uL Eos # (Auto) 0.09 (0-0.50) K/uL Baso # (Auto) 0.04 (0-0.2) K/uL Comprehensive Metabolic Panel 09/30/22 Range/Units 15:29 Sodium 136 (136-145) mmol/L Potassium 3.7 (3.5-5.1) mmol/L Chloride 94 L (98-107) mmol/L Carbon Dioxide 38 H (21-32) mmol/L BUN 42 H (6-23) mg/dl Creatinine 3.56 H (0.6-1.4) mg/dl Glucose 110 H (70-99(Fasting)) mg/dl Calcium 9.4 (8.5-10.1) mg/dl Direct Bilirubin 1.0 H (0-0.2) mg/dl AST 11 L (13-39) U/L ALT 4 L (7-52) U/L Alkaline Phosphatase 106 H (34-104) U/L Total Protein 6.7 (6.0-8.3) gm/dl Albumin 3.3 L (3.4-5.0) gm/dl Intake and Output 09/30/22 09/30/22 09/30/22 06:59 14:59 22:59 Intake Total 100 / 100 Balance 100 / 100 Intake: IV 100 / 100 metroNIDAZOLE 500 mg In 100 ml 100 / 100 @ 100 mls/hr IV NOW STA Rx#: [id number] Other: Weight 120.4 kg Weight Measurement Method Built in [facility] Patient Weight 10/01/22 06:59 Weight 120.4 kg Diagnostic Findings Lower Extremity CT 09/30/22 16:16 CT tib/fib RT wo con CLINICAL HISTORY: Right lower leg pain. Possible abscess, high creatinine. COMPARISON STUDY: CT of the right tibia and fibula July 19, 2022. TECHNIQUE: Axial images of the right tibia and fibula/lower leg were obtained without IV contrast. Sagittal and coronal reconstructions were viewed. Automated exposure control was utilized for the study. A dose lowering technique was utilized adhering to the principles of ALARA. FINDINGS: No acute fracture within the right tibia or fibula is identified. There is no evidence for acute osteomyelitis. The right calcaneus is partially obscured on this exam. Note is made of a wound of the posterior right lower leg which was shown on prior CT. There has been interval development of an associated large fluid collection overlying the posterior musculature of the right lower leg since prior CT. This multiloculated fluid collection contains several locules of gas. This overlies the soleus and gastrocnemius muscles. This collection measure approximately 26 x 8.7 x 4.4 cm and is consistent with a large abscess. This contains a tubular hypodensity which could reflect a residual portion of the Achilles. The Achilles is likely torn, although suboptimally assessed by CT but extensive vascular calcification within the right lower leg is noted. Soft tissue calcifications are again noted. Alignment of the right knee is anatomic there is no right knee joint effusion. IMPRESSION: 1. Posterior right lower leg wound with interval development of a large multiloculated collection of the posterior right lower leg which measures approximately 26 x 8.7 x 4.4 cm. This is consistent with a large abscess. This contains several locules of gas which could be due to the open wound or represent a gas-forming infectious process. Suspected disruption of the Achilles tendon, as described above, suboptimally assessed by CT. 2. No acute fracture. No evidence for acute osteomyelitis within the right tibia or fibula. Calcaneus partially imaged on this study. ACT 112: Negative or not required by law. Electronically signed by: Andres Overton M.D. 09/30/2022 5:01 PM ECG Additional Comments: ecg reviewed, w/o significant change from previous Code Status & VTE Plan Code Status full VTE Prophylaxis Plan VTE Prophylaxis will be ordered: Yes Supervising Physician Co-Signing Physician Notes I personally saw and examined the patient. I verified all dhillon points and agree with resident physician Dr Joanh Baugh DO with the following exceptions and/or additions: 62 year old male presents to the ER with fluid collection in his right leg. Worsening swelling over the last week but actually better over the last 2 days. No fever or chills. Ongoing chronic wound on right lower extremity care for by wound care. O/E Ill appearing, no acute distress, 15cm wound from distal Achilles to mid calf on back of right leg with granulation tissue formation but also significant pus. 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 A/P Fluid collection in leg - continue cefepime and metronidazole started in the ER (give cefepime after dialysis on dialysis days). Add daptomycin. Gas locules noted on CT but suspect this is due to open wound, no subcutaneous emphysema felt on exam. Consult ortho per general surgery recommendation. Will also consult vascular given peripheral vascular disease and recent angioplasty. NPO after midnight in case of need for surgery. Right leg wound - soaked bandages with some pus present. surface wound swab taken and sent for gram stain and culture. Resident Activity Tracking Resident Involvement: Resident Care Provided Care Provided: Adult Hospital Medicine
--- NOTE | 2022-09-30 20:17 | Surgery Consultation ---
Date of Consultation September 30, 2022 Assessment & Plan (1) Abscess of right leg: I discussed with the admitting hospitalist service. We recommend proceeding as follows: Follow serial labs Continue broad-spectrum antibiotics as initiated in the emergency department Obtain appropriate cultures As there appears to be Achilles tendon involvement of this wound I recommended to the primary service that they obtain an orthopedic opinion regarding the best to approach this wound. We will await orthopedic opinion and a determination will be made about possible incision and drainage of the suspected abscess. At the present time the patient is noted to be afebrile without hypotension or tachycardia. He does not have leukocytosis and does not appear septic at this time. Also as noted the patient is asymptomatic. Additional recommendations be forthcoming based on his clinical course as it unfolds and pending orthopedic input. Supervising Physician Co-Signing Physician Notes I personally saw and evaluated the patient with Vaughn Haddad PA-C and agree with the assessment and plan. 62-year-old male with history of PAD and recent right lower extremity angioplasty and wound debridement, here with right leg fluid collection concerning for abscess CT images and results were personally viewed by myself, he does have a large fluid collection extending from just distal to the knee down to his open wound which involves the Achilles tendon Due to the open wound as well as Achilles involvement, would recommend orthopedic consultation for evaluation and possible drainage/debridement He does have purulent fluid able to be expressed from the proximal portion of his open wound Surgical sign off at this time, please call with any questions or concerns History of Present Illness Reason for Consultation: Right lower extremity abscess History of Present Illness This is a 62-year-old male who presented to [facility] at the recommendation of the physician at the patient's group home facility due to increasing size of the fluid collection in the patient's right lower extremity. 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 During this admission Dr. Maza of [facility] general surgery did punch biopsies that were negative for this diagnosis. Pathology did recommend deeper tissue biopsies be performed but this was never undertaken. It should be noted that the patient was not the best historian and not well versed in the procedures that he has had in his medical care. He did present to [facility] at the end of June 2022 secondary to worsening renal failure and concern for sepsis. Review of records show that the patient was sent emergently to [facility]. As there were limited records available it is not entirely clear what transpired during patient's hospitalization. The patient notes that he did feel that he developed a blister on his right lower extremity resulting in a worsening wound. I did have a vascular surgeon report available and the patient did undergo a right lower extremity superficial femoral artery and popliteal angioplasty on 07/29/2022. It appears that during this admission the patient may have also underwent a right lower extremity/Achilles tendon wound debridement performed by an orthopedic group. According to the most recent vascular surgery report available the patient was to follow-up with orthopedic surgery in the near future regarding this wound. The patient notes concerning the Achilles wound the wound is open and has been cared for with Dakin solution. He says that the wound has been draining some puslike material. In addition the patient notes that over the past 3 weeks he has had a noted fluid collection in his right calf. He does note initially this started to get bigger in size and it was quite painful. The patient notes that at no time did he ever experience any systemic symptoms specifically noting he has never had any fevers, shakes, or chills. He also denies any lightheadedness or dizziness. He has not had any nausea or vomiting. He does note that the area in question was somewhat painful but over the past several days has gotten somewhat better. He notes that he was sent to the emergency department for further evaluation by his group home facility physician as there was concern that the fluid collection may be getting larger. He therefore presented to the emergency department. In the emergency department labs and imaging were performed were CBC revealed white blood cell count and platelet count were normal. His hemoglobin and hematocrit 9.3 and 30.3. Chemistry profile showed sodium and potassium were normal. His BUN and creatinine were 42 and 3.5. (It is nowhere the mention the patient has end-stage renal disease and does dialyze on Friday, , and Friday). The patient's lactic acid level was nonelevated at 1.8. Procalcitonin level was elevated at 1.5. A lower extremity CT scan was performed. This showed the patient had a posterior right lower leg wound with a large multiloculated collection in the posterior right lower leg measuring approximately 26 x 8.7 x 4.4 cm concerning for a large abscess. There was some locules of gas noted but the patient was noted to have an open wound. There is also suspected disruption of the Achilles tendon. There is no CT scan evidence of osteomyelitis on the study. Since arrival to the emergency department antibiotics in the form of cefepime and Flagyl have been initiated. At the time of my interview the patient was resting comfortably in bed in no dis tress. Allergies Allergy/AdvReac Type Severity Reaction Status Date / Time doxycycline Allergy Intermediate Rash Verified 09/30/22 17:43 cephalexin [From Keflex] AdvReac Intermediate ITCHING Verified 09/30/22 17:43 Home Medications Medication Instructions Recorded Confirmed Type aspirin 81 mg tablet,delayed 81 mg PO QAM #30 tabs 07/12/22 09/30/22 Rx release atorvastatin 20 mg tablet 20 mg PO QPM #30 tabs 07/12/22 09/30/22 Rx sevelamer HCl 800 mg tablet 2,400 mg PO TIDM #270 tabs 07/12/22 09/30/22 Rx (Renagel) acetaminophen 325 mg tablet 650 mg PO Q4H PRN PAIN/FEVER 09/30/22 09/30/22 History (Tylenol) amoxicillin 500 mg-potassium 1 tab PO QPM 09/30/22 09/30/22 History clavulanate 125 mg tablet carboxymethylcellulose sodium 1 % 1 drp OPB QID 09/30/22 09/30/22 History eye drops (Artificial Tears (carboxymethylcellulose)) diclofenac sodium 1 % topical gel 1 g topical QID PRN Pain 09/30/22 09/30/22 History folic acid 1 mg tablet 1 mg PO QDL 09/30/22 09/30/22 History gabapentin 100 mg capsule 100 mg PO QDL 09/30/22 09/30/22 History hydralazine 25 mg tablet 25 mg PO TID 09/30/22 09/30/22 History menthol 0.44 %-zinc oxide 20.6 % 1 applic topical BID PRN 09/30/22 09/30/22 History topical ointment (Calmoseptine) SCARUM/BUTTOCKS NEEDED metoprolol succinate 25 mg 25 mg PO BID 09/30/22 09/30/22 History tablet,extended release 24 hr multivitamin 1 tab PO DAILY 09/30/22 09/30/22 History nystatin 100,000 unit/gram topical 1 applic topical BID 09/30/22 09/30/22 History powder pantoprazole 40 mg tablet,delayed 40 mg PO AMHS 09/30/22 09/30/22 History release polyethylene glycol 3350 17 gram 17 g PO BIDM 09/30/22 09/30/22 History oral powder packet (Miralax) potassium chloride 20 mEq 20 meq PO QDL 09/30/22 09/30/22 History tablet,extended release(part/cryst) silver sulfadiazine 1 % topical 1 applic topical TID 09/30/22 09/30/22 History cream tramadol 50 mg tablet 50 mg PO Q6H PRN Pain 09/30/22 09/30/22 History trazodone 50 mg tablet 50 mg PO HS 09/30/22 09/30/22 History triamcinolone acetonide 0.1 % 1 applic topical BID 09/30/22 09/30/22 History topical ointment Patient History Medical History Acute blood loss anemia Acute kidney injury Amputated toe of left foot Amputated toe of right foot Anasarca Bilateral cellulitis of lower leg ESRD (end stage renal disease) on dialysis Gangrene Gangrene HTN (hypertension) Hyperparathyroidism due to end stage renal disease on dialysis Metabolic acidosis Nephrotic syndrome Obesity Osteomyelitis Proteinuria Surgical History History of angioplasty of peripheral vessel S/P arteriovenous (AV) fistula creation Status post incision and drainage left foot wound Family History Other Diabetes Family history non-contributory Hypertension Social History Smoking Status: Never smoker Second Hand Exposure: No; Do You Dip or Chew Tobacco: No; Tobacco Cessation Education Requested by Patient: No Hx Alcohol Use: Yes Alcohol type: other Hx Substance Use: No Preferred Language: Swedish Communication Ability: Effective Visual Impairment: No Limitations Hearing Ability: Hard of Hearing Control Panel Operator Crude Unit Required: No Beliefs That Will Affect Care: None marital status: Single Current Living Situation: Senior Living Other Information That Helps Us Care for You: No Feels Safe at Home: Yes Safety Concerns: Feels Safe At This Time caffeine: Yes during the past year weight has: remained stable Seatbelt Use: always Sunscreen Use: No Assistive Devices: Oxygen - at Night, Walker and Wheelchair Assistive Devices Comment: Uses wheelchair Review of Systems Constitutional: no fever, no chills and no sweats Eyes: no eye pain Ear, Nose, Mouth, Throat: no ear pain Respiratory: no cough and no dyspnea Cardiovascular: no chest pain Gastrointestinal: no abdominal pain, no nausea and no vomiting Musculoskeletal: no back pain Integumentary: + lesions (Open wound on right Achilles) Neurologic: no localized weakness Physical Exam Constitutional: no acute distress Eyes: eyes not dysmorphic ENMT: Ears: no hearing impairment and no external ear abnormality Mouth: no oropharynx abnormality Neck: trachea midline Respiratory: normal respiratory effort; no respiratory distress and no labored breathing Cardiovascular: Rate/Rhythm: regular rate and regular rhythm Gastrointestinal (Abdomen): Abdomen is rotund and soft. It is nonrigid. There is no pain with palpation. Musculoskeletal: Patient is noted to have a left lower extremity below-knee amputation. The stump is well-healed without any visible wounds. On the patient's right lower extremity he had an open wound in the posterior aspect of his lower extremity. This area extended from the calcaneus to about one half way up the calf. There is some purulent drainage noted. There is no bleeding noted. There is no crepitus noted in the soft tissue. The patient was also noted to have a fluid collection palpable in the lower extremity extending from the popliteal fossa to approximate the level of the open wound. There is minimal erythema noted to this area. There is no warmth. Again there is no crepitus in the soft tissue. The area had minimal pain noted with palpation. (The wound was redressed following examination) Neurologic: moves all extremities Results & Data ([facility]) Vital Signs (Past 12 Hours) Vital Signs Temp Pulse Resp BP Pulse Ox O2 Del Method 09/30/22 17:10 80 11 L 98 09/30/22 17:00 79 12 96 09/30/22 17:00 139/81 09/30/22 16:50 83 23 93 09/30/22 16:49 82 19 95 Room Air 09/30/22 16:49 133/77 09/30/22 16:20 78 14 09/30/22 16:10 81 12 09/30/22 16:00 20 09/30/22 15:50 81 19 94 09/30/22 15:40 79 24 97 09/30/22 15:30 86 25 H 92 09/30/22 15:20 82 23 92 09/30/22 15:17 84 23 98 09/30/22 15:53 94 Room Air 09/30/22 15:35 80 09/30/22 15:18 36.6 C 87 18 122/86 94 Room Air PG Care Time/CCT Total # of Minutes Spent Total Time Spent with Patient: Total time spent is greater than 50% in coordination of care (as documented) at patient's floor/unit and/or counseling patient: Coding Level of Care Code 72587 INT INP/OBS CARE 75MIN Diagnoses Abscess of right leg L02.415
[2022-09-30] MEDS: oxyCODONE HCL IR 5 MG TAB (IMMEDIATE RELEASE) PO PRN (22:51)
[2022-09-30] MEDS: SEVELAMER HCL 800 MG TABLET PO SCH ×2 (23:29→23:40)
[2022-09-30] MEDS: ATORVASTATIN 20 MG TAB PO SCH (23:30)
[2022-09-30] MEDS: METOPROLOL SUCC 25MG EXT REL TAB PO SCH (23:30)
[2022-10-01] MEDS ORDERED: DEXTROSE 50% 50 ML SYRINGE IV PRN (00:12)
[2022-10-01] MEDS ORDERED: GLUCAGON FOR INJ 1 MG VIAL SQ PRN (00:12)
[2022-10-01] MEDS ORDERED: GLUCOSE 10 TAB/TUBE PO PRN (00:12)
[2022-10-01] MEDS ORDERED: GLUCOSE 40% GEL 15 GM TUBE PO PRN (00:12)
[2022-10-01] MEDS ORDERED: CARBOHYDRATES FOR HYPOGLYCEMIA PO PRN (00:12)
[2022-10-01] MEDS: metroNIDAZOLE 500 MG/100 ML BAG IV SCH ×3 (01:53→18:27)
--- NOTE | 2022-10-01 02:10 | Billing Data ---
Date of Service September 30, 2022 Coding Level of Care Code 98209 INT INP/OBS CARE
[2022-10-01] MEDS: DAPTOmycin 350 MG in SYRINGE 0 ML IV SCH (03:02)
[2022-10-01 06:59] LABS: Basophils # (auto) 0.02 K/uL (0-0.2); Basophils % (auto) 0.3 %; Eosinophils # (auto) 0.11 K/uL (0-0.50); Eosinophils % (auto) 1.8 %; Hematocrit (blood only) 27.8 % (42.0-52.0); Hemoglobin 8.7 g/dl (14.0-18.0); Immature Granulocytes # (auto) 0.02 K/uL (0.01-0.20); Immature Granulocytes % (auto) 0.3 %; Lymphocytes # (auto) 1.18 K/uL (1.2-3.4); Lymphocytes % (auto) 19.4 %; Mean Corpuscular Hemoglobin 27.4 pg (25.0-34.0); Mean Corpuscular Hgb Conc 31.3 g/dL (32.0-36.0); Mean Corpuscular Volume 87.4 fL (80.0-100.0); Monocytes # (auto) 0.49 K/uL (0.11-0.59); Monocytes % (auto) 8.1 %; Neutrophils # (auto) 4.26 K/uL (1.40-6.50); Neutrophils % (auto) 70.1 %; Platelet Count 215 K/uL (130-400); RDW Coefficient of Variation 18.4 % (11.5-14.5); RDW Standard Deviation 58.7 fL (36.4-46.3); Red Blood Count 3.18 M/uL (4.70-6.10); White Blood Count 6.08 K/ul (4.8-10.8)
[2022-10-01 07:17] LABS: Albumin Globulin Ratio 1.1 (0.9-2); Albumin Level 3.1 gm/dl (3.4-5.0); BUN Creatinine Ratio 12.1 (10-20); Bilirubin,Total 1.8 mg/dl (0.2-1.0); Calcium 9.1 mg/dl (8.5-10.1); Creatinine Clr Calc Pharmacy 27.3 ml/min; Est GFR (African American) 18.2 ml/min; Est GFR (Non-African American) 15.7 ml/min; Globulin 2.9 gm/dl (2.5-4.0); Magnesium 1.9 mg/dl (1.7-2.4); Phosphorus 1.7 mg/dl (2.5-4.9)
--- NOTE | 2022-10-01 09:08 | Consultation ---
Date of Consultation October 01, 2022 Assessment & Plan (1) PAD (peripheral artery disease): Consult for PAD, but no imaging performed. Pt with recent procedure (08/12), and note from f/u with surgeon indicates good progress. On exam, pt with easily dopplerable RLE DP and PT pulses and no sign of ischemia. No indications for vascular surgical intervention. Recommend orthopedics/gen surgery proceed with needed surgical intervention. Pt can follow up with his regular vascular surgeon as outpt. Please call if needed. History of Present Illness Reason for Consultation: PAD Attending Physician: Rashaun Hamilton DO History of Present Illness 62 yo m with hx of DMII, ESRD on HD, LLE BKA, CAD, CHF, anemia, HTN, admitted with RLE abscess, seen in consultation today for PAD. Pt with hx of moderate PAD, seen by our service in June for same. Since then, he has undergone FUR DRESSER/stenting of SFA and pop, as well as debridement of R ankle wounds at [facility]. Was seen in f/u by vascular service there a few weeks ago and they were pleased with his progress. Pt has noted draiange from his R ankle wound. CT scans done here demonstrate fluid collection, possible abscess. Pt deneis HERRERA, fever, chest pain, SOB, abd pain, N/V, rest pain in foot, other complaints. Does not walk fast or far enough to claudicate d/t LLE BKA. NO vascular imaging has been performed this admission. Most recent imaging here is a report of an arterial US done at outside facility at least 4 months ago. Allergies Allergy/AdvReac Type Severity Reaction Status Date / Time doxycycline Allergy Intermediate Rash Verified 09/30/22 17:43 cephalexin [From Keflex] AdvReac Intermediate ITCHING Verified 09/30/22 17:43 Home Medications Medication Instructions Recorded Confirmed Type aspirin 81 mg tablet,delayed 81 mg PO QAM #30 tabs 07/12/22 09/30/22 Rx release atorvastatin 20 mg tablet 20 mg PO QPM #30 tabs 07/12/22 09/30/22 Rx sevelamer HCl 800 mg tablet 2,400 mg PO TIDM #270 tabs 07/12/22 09/30/22 Rx (Renagel) acetaminophen 325 mg tablet 650 mg PO Q4H PRN PAIN/FEVER 09/30/22 09/30/22 History (Tylenol) amoxicillin 500 mg-potassium 1 tab PO QPM 09/30/22 09/30/22 History clavulanate 125 mg tablet carboxymethylcellulose sodium 1 % 1 drp OPB QID 09/30/22 09/30/22 History eye drops (Artificial Tears (carboxymethylcellulose)) diclofenac sodium 1 % topical gel 1 g topical QID PRN Pain 09/30/22 09/30/22 History folic acid 1 mg tablet 1 mg PO QDL 09/30/22 09/30/22 History gabapentin 100 mg capsule 100 mg PO QDL 09/30/22 09/30/22 History hydralazine 25 mg tablet 25 mg PO TID 09/30/22 09/30/22 History menthol 0.44 %-zinc oxide 20.6 % 1 applic topical BID PRN 09/30/22 09/30/22 History topical ointment (Calmoseptine) SCARUM/BUTTOCKS NEEDED metoprolol succinate 25 mg 25 mg PO BID 09/30/22 09/30/22 History tablet,extended release 24 hr multivitamin 1 tab PO DAILY 09/30/22 09/30/22 History nystatin 100,000 unit/gram topical 1 applic topical BID 09/30/22 09/30/22 History powder pantoprazole 40 mg tablet,delayed 40 mg PO AMHS 09/30/22 09/30/22 History release polyethylene glycol 3350 17 gram 17 g PO BIDM 09/30/22 09/30/22 History oral powder packet (Miralax) potassium chloride 20 mEq 20 meq PO QDL 09/30/22 09/30/22 History tablet,extended release(part/cryst) silver sulfadiazine 1 % topical 1 applic topical TID 09/30/22 09/30/22 History cream tramadol 50 mg tablet 50 mg PO Q6H PRN Pain 09/30/22 09/30/22 History trazodone 50 mg tablet 50 mg PO HS 09/30/22 09/30/22 History triamcinolone acetonide 0.1 % 1 applic topical BID 09/30/22 09/30/22 History topical ointment Patient History Medical History Acute blood loss anemia Acute kidney injury Amputated toe of left foot Amputated toe of right foot Anasarca Bilateral cellulitis of lower leg ESRD (end stage renal disease) on dialysis Gangrene Gangrene HTN (hypertension) Hyperparathyroidism due to end stage renal disease on dialysis Metabolic acidosis Nephrotic syndrome Obesity Osteomyelitis Proteinuria Surgical History History of angioplasty of peripheral vessel S/P arteriovenous (AV) fistula creation Status post incision and drainage left foot wound Family History Other Diabetes Family history non-contributory Hypertension Social History Smoking Status: Never smoker Second Hand Exposure: No; Do You Dip or Chew Tobacco: No; Tobacco Cessation Education Requested by Patient: No Hx Alcohol Use: Yes Alcohol type: other Hx Substance Use: No Preferred Language: Togolese Communication Ability: Effective Visual Impairment: No Limitations Hearing Ability: Hard of Hearing Front End Web Developer Required: No Beliefs That Will Affect Care: None marital status: Single Current Living Situation: Intermediate Other Information That Helps Us Care for You: No Feels Safe at Home: Yes Safety Concerns: Feels Safe At This Time caffeine: Yes during the past year weight has: remained stable Seatbelt Use: always Sunscreen Use: No Assistive Devices: Oxygen - at Night, Walker and Wheelchair Assistive Devices Comment: Uses wheelchair Review of Systems Review of Systems: All systems reviewed & are unremarkable except as noted in HPI & below Physical Exam Constitutional: WD/WN, vitals as above + morbidly obese, + disheveled and cooperative; not in distress ENMT: Ears: no hearing impairment Neck: trachea midline Respiratory: normal respiratory effort, lungs clear to auscultation Auscultation: + diminished lung sounds Cardiovascular: Rate/Rhythm: regular rate and regular rhythm Vessels: posterior tibial pulses present (easily dopplerable RLE biphasic), dorsalis pedis pulses present (easily dopplerable RLE triphasic) and radial pulses present; + abnormal peripheral pulses Extremities: normal capillary refill Gastrointestinal (Abdomen): Inspection/Auscultation: abdomen normal to inspection and normal bowel sounds Percussion/Palpation: abdomen soft; abdomen nontender Musculoskeletal: Extremities: strength 5/5 throughout and + amputation noted (LLE BKA) Skin: + wound (multiple skin wounds to RLE. ankle dressing not removed) Neurologic: moves all extremities and awake; no focal motor deficits and not confused Psychiatric: A+Ox3, euthymic affect Results & Data ([facility]) Vital Signs (Past 12 Hours) Vital Signs Temp Pulse Pulse Resp BP BP Pulse Ox 10/01/22 07:44 10/01/22 07:08 36.5 C 71 18 135/87 99 09/30/22 21:45 09/30/22 21:45 09/30/22 21:45 36.4 C L 88 16 157/100 H 96 09/30/22 21:10 90 24 94 09/30/22 21:00 90 28 H 09/30/22 21:00 157/101 H O2 Del Method O2 Flow Rate 10/01/22 07:44 Nasal Cannula 2 10/01/22 07:08 Nasal Cannula 2 09/30/22 21:45 Room Air 09/30/22 21:45 Room Air 09/30/22 21:45 Room Air 09/30/22 21:10 09/30/22 21:00 09/30/22 21:00
[2022-10-01] MEDS: POLYETHYLENE (MIRALAX) 17 GM PACK PO SCH ×2 (09:52→17:39)
[2022-10-01] MEDS: PANTOprazole 40 MG TAB PO SCH ×2 (09:53→23:33)
[2022-10-01] MEDS: SEVELAMER HCL 800 MG TABLET PO SCH ×3 (09:53→17:39)
[2022-10-01] MEDS: hydrALAZINE HCL 25 MG TAB PO SCH ×3 (09:53→23:32)
--- NOTE | 2022-10-01 10:11 | Nephrology Consultation ---
Date of Consultation October 01, 2022 Assessment & Plan (1) End-stage renal disease on hemodialysis: Outpatient Rx: TTS 4.5hr, 2K 2.5Ca Na 137, HCO3 38, F-250 NR, 14 g needles, Qb500 Qd 800, EDW 116 Kg, heparin 3000 unit bolus + 2500 units q1 hr, L forearm AVF. Orders for HD today entered into the EHR and reviewed with consumer insight manager. Michael was seen and evaluated prior to and during hemodialysis. He is tolerating treatment well. Medications appropriately dosed for kidney function. Document daily weight. Repeat renal panel and H/H in AM. Renal diet. (2) Anemia: Chronic, stable. Recently competed IV Venofer loading. Hgb 8.7 on 09/24. Mircera 150 mcg q4wk - last dose 09/28. (3) Hypertension: Maintained on metoprolol succinate 25 mg BID and hydralazine 25 mg TID. Antihypertensives held prior to dialysis. Volume status acceptable. UF goal ~2 L. (4) Secondary hyperparathyroidism of renal origin: Renal diet. Sevelamer 2400 mg QAC. (5) Abscess of right leg: Vascular consultation reviewed. CT reviewed. Ortho consult pending. Remains on cefepime, dapto, and flagyl. Cultures pending. History of Present Illness Reason for Consultation: ESRD on HD Requesting Physician: Rashaun Hamilton DO Attending Physician: Rashaun Hamilton DO History of Present Illness Mr. Michael Quinonez is a 62 year-old male with ESRD due to DKD, hypertensive nephrosclerosis and underlying vascular disease. He dialyzes TTS at [facility] under the care of Dr. Israel (4.5hr, 2K 2.5Ca Na 137, HCO3 38, F- 250 NR, 14 g needles, Qb500 Qd 800, EDW 116 Kg, heparin 3000 unit bolus + 2500 units q1 hr, L forearm AVF, mircera 150 mcg q4wk - last dose 09/28). Mr. Quinonez completed a full treatment on 09/28/22 without complications. He has been tolerating HD well. He is a resident in SNF at [facility]. He presented to [facility] yesterday for evaluation of RLE wound. Evaluation demonstrating open wound for which he has followed with wound care. Recent endovascular intervention performed on SFA. Medical history notable for ESRD, L BKA, PAD, CAD, morbid obesity, DM, hypertension. Started on antibiotic therapy with cefepime, daptomycin, and flagyl. Allergies Allergy/AdvReac Type Severity Reaction Status Date / Time doxycycline Allergy Intermediate Rash Verified 09/30/22 17:43 cephalexin [From Keflex] AdvReac Intermediate ITCHING Verified 09/30/22 17:43 Home Medications Medication Instructions Recorded Confirmed Type aspirin 81 mg tablet,delayed 81 mg PO QAM #30 tabs 07/12/22 09/30/22 Rx release atorvastatin 20 mg tablet 20 mg PO QPM #30 tabs 07/12/22 09/30/22 Rx sevelamer HCl 800 mg tablet 2,400 mg PO TIDM #270 tabs 07/12/22 09/30/22 Rx (Renagel) acetaminophen 325 mg tablet 650 mg PO Q4H PRN PAIN/FEVER 09/30/22 09/30/22 History (Tylenol) amoxicillin 500 mg-potassium 1 tab PO QPM 09/30/22 09/30/22 History clavulanate 125 mg tablet carboxymethylcellulose sodium 1 % 1 drp OPB QID 09/30/22 09/30/22 History eye drops (Artificial Tears (carboxymethylcellulose)) diclofenac sodium 1 % topical gel 1 g topical QID PRN Pain 09/30/22 09/30/22 History folic acid 1 mg tablet 1 mg PO QDL 09/30/22 09/30/22 History gabapentin 100 mg capsule 100 mg PO QDL 09/30/22 09/30/22 History hydralazine 25 mg tablet 25 mg PO TID 09/30/22 09/30/22 History menthol 0.44 %-zinc oxide 20.6 % 1 applic topical BID PRN 09/30/22 09/30/22 History topical ointment (Calmoseptine) SCARUM/BUTTOCKS NEEDED metoprolol succinate 25 mg 25 mg PO BID 09/30/22 09/30/22 History tablet,extended release 24 hr multivitamin 1 tab PO DAILY 09/30/22 09/30/22 History nystatin 100,000 unit/gram topical 1 applic topical BID 09/30/22 09/30/22 History powder pantoprazole 40 mg tablet,delayed 40 mg PO AMHS 09/30/22 09/30/22 History release polyethylene glycol 3350 17 gram 17 g PO BIDM 09/30/22 09/30/22 History oral powder packet (Miralax) potassium chloride 20 mEq 20 meq PO QDL 09/30/22 09/30/22 History tablet,extended release(part/cryst) silver sulfadiazine 1 % topical 1 applic topical TID 09/30/22 09/30/22 History cream tramadol 50 mg tablet 50 mg PO Q6H PRN Pain 09/30/22 09/30/22 History trazodone 50 mg tablet 50 mg PO HS 09/30/22 09/30/22 History triamcinolone acetonide 0.1 % 1 applic topical BID 09/30/22 09/30/22 History topical ointment Patient History Medical History Acute blood loss anemia Acute kidney injury Amputated toe of left foot Amputated toe of right foot Anasarca Bilateral cellulitis of lower leg ESRD (end stage renal disease) on dialysis Gangrene Gangrene HTN (hypertension) Hyperparathyroidism due to end stage renal disease on dialysis Metabolic acidosis Nephrotic syndrome Obesity Osteomyelitis Proteinuria Surgical History History of angioplasty of peripheral vessel S/P arteriovenous (AV) fistula creation Status post incision and drainage left foot wound Family History Other Diabetes Family history non-contributory Hypertension Social History Smoking Status: Never smoker Second Hand Exposure: No; Do You Dip or Chew Tobacco: No; Tobacco Cessation Education Requested by Patient: No Hx Alcohol Use: Yes Alcohol type: other Hx Substance Use: No Preferred Language: Romansh Communication Ability: Effective Visual Impairment: No Limitations Hearing Ability: Hard of Hearing Clinical Services Director Required: No Beliefs That Will Affect Care: None marital status: Single Current Living Situation: [facility] Other Information That Helps Us Care for You: No Feels Safe at Home: Yes Safety Concerns: Feels Safe At This Time caffeine: Yes during the past year weight has: remained stable Seatbelt Use: always Sunscreen Use: No Assistive Devices: Oxygen - at Night, Walker and Wheelchair Assistive Devices Comment: Uses wheelchair Review of Systems Review of Systems: All systems reviewed & are unremarkable except as noted in HPI & below Constitutional: + weakness; no fever and no chills Physical Exam Constitutional: + morbidly obese; no acute distress Eyes: + anicteric sclerae; no corneal abnormality ENMT: Mouth: no oral mucosal abnormality and oral mucous membranes not dry Neck: normal visual inspection and trachea midline Respiratory: normal respiratory effort Auscultation: lungs clear to auscultation bilaterally and + diminished lung sounds Cardiovascular: Rate/Rhythm: regular rate Heart Sounds: normal S1, normal S2 and + murmur Extremities: + AV fistula; no edema Musculoskeletal: Extremities: no cyanosis and no clubbing Skin: + turgor decreased and + lesion (multiple scabbed ulcers on stump); no jaundice Neurologic: Motor/Sensory: no tremor and no asterixis Psychiatric: Orientation: alert and oriented x 3 Results & Data ([facility]) Vital Signs (Past 12 Hours) Vital Signs Temp Pulse Resp BP Pulse Ox O2 Del Method O2 Flow Rate 10/01/22 07:44 Nasal Cannula 2 10/01/22 07:08 36.5 C 71 18 135/87 99 Nasal Cannula 2 Laboratory Results Laboratory Results - last 24 hr 09/30/22 09/30/22 09/30/22 15:29 15:29 15:29 WBC 6.63 RBC 3.38 L Hgb 9.3 L Hct 30.3 L MCV 89.6 MCH 27.5 MCHC 30.7 L RDW Std Deviation 59.4 H RDW Coeff of Dorcas 18.4 H Plt Count 224 MPV 11.3 Immature Gran % (Auto) 0.3 Neut % (Auto) 72.5 Lymph % (Auto) 18.1 [place] % (Auto) 7.1 Eos % (Auto) 1.4 Baso % (Auto) 0.6 Neut # (Auto) 4.81 Lymph # (Auto) 1.20 [place] # (Auto) 0.47 Eos # (Auto) 0.09 Baso # (Auto) 0.04 Immature Gran # (Auto) 0.02 Sodium 136 Potassium 3.7 Chloride 94 L Carbon Dioxide 38 H Anion Gap 4 BUN 42 H Creatinine 3.56 H Est Cr Clr Drug Dosing 30.4 Est GFR ( Amer) 20.3 Est GFR (Non-Af Amer) 17.5 BUN/Creatinine Ratio 11.8 Glucose 110 H POC Glucose Lactate 1.8 Calcium 9.4 Phosphorus Magnesium 2.0 Total Bilirubin 2.0 H Direct Bilirubin 1.0 H AST 11 L ALT 4 L Alkaline Phosphatase 106 H Total Protein 6.7 Albumin 3.3 L Globulin Albumin/Globulin Ratio Procalcitonin Nasal Screen MRSA (PCR) SARS-CoV-2, RNA, NAAT 09/30/22 09/30/22 10/01/22 15:29 20:16 03:07 WBC RBC Hgb Hct MCV MCH MCHC RDW Std Deviation RDW Coeff of Dorcas Plt Count MPV Immature Gran % (Auto) Neut % (Auto) Lymph % (Auto) [place] % (Auto) Eos % (Auto) Baso % (Auto) Neut # (Auto) Lymph # (Auto) [place] # (Auto) Eos # (Auto) Baso # (Auto) Immature Gran # (Auto) Sodium Potassium Chloride Carbon Dioxide Anion Gap BUN Creatinine Est Cr Clr Drug Dosing Est GFR ( Amer) Est GFR (Non-Af Amer) BUN/Creatinine Ratio Glucose POC Glucose Lactate Calcium Phosphorus Magnesium Total Bilirubin Direct Bilirubin AST ALT Alkaline Phosphatase Total Protein Albumin Globulin Albumin/Globulin Ratio Procalcitonin 1.50 H Nasal Screen MRSA (PCR) Negative SARS-CoV-2, RNA, NAAT NEGATIVE 10/01/22 10/01/22 10/01/22 06:03 06:34 06:34 WBC 6.08 RBC 3.18 L Hgb 8.7 L Hct 27.8 L MCV 87.4 MCH 27.4 MCHC 31.3 L RDW Std Deviation 58.7 H RDW Coeff of Dorcas 18.4 H Plt Count 215 MPV 11.0 Immature Gran % (Auto) 0.3 Neut % (Auto) 70.1 Lymph % (Auto) 19.4 [place] % (Auto) 8.1 Eos % (Auto) 1.8 Baso % (Auto) 0.3 Neut # (Auto) 4.26 Lymph # (Auto) 1.18 L [place] # (Auto) 0.49 Eos # (Auto) 0.11 Baso # (Auto) 0.02 Immature Gran # (Auto) 0.02 Sodium 136 Potassium 4.0 Chloride 96 L Carbon Dioxide 32 Anion Gap 8 BUN 47 H Creatinine 3.90 H D Est Cr Clr Drug Dosing 27.3 Est GFR ( Amer) 18.2 Est GFR (Non-Af Amer) 15.7 BUN/Creatinine Ratio 12.1 Glucose 88 POC Glucose 97 Lactate Calcium 9.1 Phosphorus 1.7 L Magnesium 1.9 Total Bilirubin 1.8 H Direct Bilirubin AST 9 L ALT 4 L Alkaline Phosphatase 87 Total Protein 6.0 Albumin 3.1 L Globulin 2.9 Albumin/Globulin Ratio 1.1 Procalcitonin Nasal Screen MRSA (PCR) SARS-CoV-2, RNA, NAAT Diagnostic Findings CT tib/fib RT wo con FINDINGS: No acute fracture within the right tibia or fibula is identified. There is no evidence for acute osteomyelitis. The right calcaneus is partially obscured on this exam. Note is made of a wound of the posterior right lower leg which was shown on prior CT. There has been interval development of an associated large fluid collection overlying the posterior musculature of the right lower leg since prior CT. This multiloculated fluid collection contains several locules of gas. This overlies the soleus and gastrocnemius muscles. This collection measure approximately 26 x 8.7 x 4.4 cm and is consistent with a large abscess. This contains a tubular hypodensity which could reflect a residual portion of the Achilles. The Achilles is likely torn, although suboptimally assessed by CT but extensive vascular calcification within the right lower leg is noted. Soft tissue calcifications are again noted. Alignment of the right knee is anatomic there is no right knee joint effusion. IMPRESSION: 1. Posterior right lower leg wound with interval development of a large multiloculated collection of the posterior right lower leg which measures approximately 26 x 8.7 x 4.4 cm. This is consistent with a large abscess. This contains several locules of gas which could be due to the open wound or represent a gas-forming infectious process. Suspected disruption of the Achilles tendon, as described above, suboptimally assessed by CT. 2. No acute fracture. No evidence for acute osteomyelitis within the right tibia or fibula. Calcaneus partially imaged on this study. PG Care Time/CCT Total # of Minutes Spent Total Time Spent with Patient: Total time spent is greater than 50% in coordination of care (as documented) at patient's floor/unit and/or counseling patient: Coding Level of Care Code 32140 IN/OBS CONSULT LVL 5,80M Diagnoses End-stage renal disease on hemodialysis N18.6; Z99.2 Anemia D64.9 Anemia type: unspecified type Hypertension I10 Secondary hyperparathyroidism of renal origin N25.81 Abscess of right leg L02.415 (2) Anemia Anemia type: unspecified type Qualified Code(s): D64.9 - Anemia, unspecified
--- NOTE | 2022-10-01 13:23 | Orthopedic Progress Note ---
Date of Service October 01, 2022 Assessment & Plan (1) Abscess of right leg: Plan: The patient's case was discussed with attending physician. At this time, would recommend consulting foot/ankle Dr. Cervantes or Maxi for further evaluation of the wound and possible I&D of the area. Admission and Anticipated Discharge Date Admission Date: September 30, 2022 Subjective Patient is a 62 year old male with a PMH significant for ESRD on dialysis, L BKA, CAD, HFrEF, PAD, DM, and HTN whoPresented to the ED presented to the ED from care home facility after obtaining an ultrasound of his right lower extremity that suggested a possible abscess versus hematoma. The patient does have a history of prior surgery performed at [facility]. Patient underwent a right SFA and popliteal angio on 07/29/2022. Subsequently during that hospitalization he also underwent a right ankle/Achilles wound debridement preformed by their orthopedic group by Dr. John Trimble. Patient states he has had pain ongoing for a few weeks. He was worked up in the ED and CT imaging revealed a large multiloculated collection of the posterior right lower leg consistent with a large abscess and orthopedic team was consulted for further evaluation. Physical Exam Physical Exam: Left BKA. Right ankle with dressing in place, dressing is c/d/i. Right calf appears to be swollen, however is nontender on exam. Able to wiggle toes without issue, sensation in tact, limited ROM to ankle secondary to pain Results & Data ([facility]) Vital Signs (Past 12 Hours) Vital Signs Temp Pulse Pulse Resp BP BP Pulse Ox 10/01/22 12:30 77 134/78 10/01/22 12:00 70 125/97 10/01/22 11:30 74 131/78 10/01/22 11:00 74 133/76 10/01/22 10:30 74 103/60 10/01/22 10:00 77 117/71 10/01/22 09:47 36.6 C 10/01/22 07:44 10/01/22 07:08 36.5 C 71 18 135/87 99 O2 Del Method O2 Flow Rate 10/01/22 12:30 10/01/22 12:00 10/01/22 11:30 10/01/22 11:00 10/01/22 10:30 10/01/22 10:00 10/01/22 09:47 10/01/22 07:44 Nasal Cannula 2 10/01/22 07:08 Nasal Cannula 2 Laboratory Results Laboratory Results WBC 6.08 K/ul (4.8-10.8) 10/01/22 06:34 RBC 3.18 M/uL (4.70-6.10) L 10/01/22 06:34 Hgb 8.7 g/dl (14.0-18.0) L 10/01/22 06:34 Hct 27.8 % (42.0-52.0) L 10/01/22 06:34 MCV 87.4 fL (80.0-100.0) 10/01/22 06:34 MCH 27.4 pg (25.0-34.0) 10/01/22 06:34 MCHC 31.3 g/dL (32.0-36.0) L 10/01/22 06:34 RDW Std Deviation 58.7 fL (36.4-46.3) H 10/01/22 06:34 RDW Coeff of Dorcas 18.4 % (11.5-14.5) H 10/01/22 06:34 Plt Count 215 K/uL (130-400) 10/01/22 06:34 MPV 11.0 fL (9.4-12.4) 10/01/22 06:34 Immature Gran % (Auto) 0.3 % 10/01/22 06:34 Neut % (Auto) 70.1 % 10/01/22 06:34 Lymph % (Auto) 19.4 % 10/01/22 06:34 [place] % (Auto) 8.1 % 10/01/22 06:34 Eos % (Auto) 1.8 % 10/01/22 06:34 Baso % (Auto) 0.3 % 10/01/22 06:34 Neut # (Auto) 4.26 K/uL (1.40-6.50) 10/01/22 06:34 Lymph # (Auto) 1.18 K/uL (1.2-3.4) L 10/01/22 06:34 [place] # (Auto) 0.49 K/uL (0.11-0.59) 10/01/22 06:34 Eos # (Auto) 0.11 K/uL (0-0.50) 10/01/22 06:34 Baso # (Auto) 0.02 K/uL (0-0.2) 10/01/22 06:34 Immature Gran # (Auto) 0.02 K/uL (0.01-0.20) 10/01/22 06:34 Sodium 136 mmol/L (136-145) 10/01/22 06:34 Potassium 4.0 mmol/L (3.5-5.1) 10/01/22 06:34 Chloride 96 mmol/L (98-107) L 10/01/22 06:34 Carbon Dioxide 32 mmol/L (21-32) 10/01/22 06:34 Anion Gap 8 (3-11) 10/01/22 06:34 BUN 47 mg/dl (6-23) H 10/01/22 06:34 Creatinine 3.90 mg/dl (0.6-1.4) H D 10/01/22 06:34 Est Cr Clr Drug Dosing 27.3 ml/min 10/01/22 06:34 Est GFR ( Amer) 18.2 ml/min 10/01/22 06:34 Est GFR (Non-Af Amer) 15.7 ml/min 10/01/22 06:34 BUN/Creatinine Ratio 12.1 (10-20) 10/01/22 06:34 Glucose 88 mg/dl (70-99(Fasting)) 10/01/22 06:34 POC Glucose 81 mg/dl (70-99) 10/01/22 12:37 Lactate 1.8 mmol/L (0.4-2.0) 09/30/22 15:29 Calcium 9.1 mg/dl (8.5-10.1) 10/01/22 06:34 Phosphorus 1.7 mg/dl (2.5-4.9) L 10/01/22 06:34 Magnesium 1.9 mg/dl (1.7-2.4) 10/01/22 06:34 Total Bilirubin 1.8 mg/dl (0.2-1.0) H 10/01/22 06:34 Direct Bilirubin 1.0 mg/dl (0-0.2) H 09/30/22 15:29 AST 9 U/L (13-39) L 10/01/22 06:34 ALT 4 U/L (7-52) L 10/01/22 06:34 Alkaline Phosphatase 87 U/L (34-104) 10/01/22 06:34 Total Protein 6.0 gm/dl (6.0-8.3) 10/01/22 06:34 Albumin 3.1 gm/dl (3.4-5.0) L 10/01/22 06:34 Globulin 2.9 gm/dl (2.5-4.0) 10/01/22 06:34 Albumin/Globulin Ratio 1.1 (0.9-2) 10/01/22 06:34 Procalcitonin 1.50 ng/ml (0-0.5) H 09/30/22 15:29 Nasal Screen MRSA (PCR) Negative (Negative) 10/01/22 03:07 SARS-CoV-2, RNA, NAAT NEGATIVE (NEGATIVE) 09/30/22 20:[address] 09/30/22 16:16 CT tib/fib RT wo con CLINICAL HISTORY: Right lower leg pain. Possible abscess, high creatinine. COMPARISON STUDY: CT of the right tibia and fibula July 19, 2022. TECHNIQUE: Axial images of the right tibia and fibula/lower leg were obtained without IV contrast. Sagittal and coronal reconstructions were viewed. Automated exposure control was utilized for the study. A dose lowering technique was utilized adhering to the principles of ALARA. FINDINGS: No acute fracture within the right tibia or fibula is identified. There is no evidence for acute osteomyelitis. The right calcaneus is partially obscured on this exam. Note is made of a wound of the posterior right lower leg which was shown on prior CT. There has been interval development of an associated large fluid collection overlying the posterior musculature of the right lower leg since prior CT. This multiloculated fluid collection contains several locules of gas. This overlies the soleus and gastrocnemius muscles. This collection measure approximately 26 x 8.7 x 4.4 cm and is consistent with a large abscess. This contains a tubular hypodensity which could reflect a residual portion of the Achilles. The Achilles is likely torn, although suboptimally assessed by CT but extensive vascular calcification within the right lower leg is noted. Soft tissue calcifications are again noted. Alignment of the right knee is anatomic there is no right knee joint effusion. IMPRESSION: 1. Posterior right lower leg wound with interval development of a large multiloculated collection of the posterior right lower leg which measures approximately 26 x 8.7 x 4.4 cm. This is consistent with a large abscess. This contains several locules of gas which could be due to the open wound or represent a gas-forming infectious process. Suspected disruption of the Achilles tendon, as described above, suboptimally assessed by CT. 2. No acute fracture. No evidence for acute osteomyelitis within the right tibia or fibula. Calcaneus partially imaged on this study. ACT 112: Negative or not required by law. Electronically signed by: Andres Overton M.D. 09/30/2022 5:01 PM
[2022-10-01] MEDS: oxyCODONE HCL IR 5 MG TAB (IMMEDIATE RELEASE) PO PRN ×2 (14:01→23:40)
[2022-10-01] MEDS: METOPROLOL SUCC 25MG EXT REL TAB PO SCH ×2 (14:10→23:33)
[2022-10-01] MEDS ORDERED: cefTRIAXone SODIUM 2,000 MG in DEXTROSE 5% 50 ML IV SCH (16:00)
[2022-10-01] MEDS: CEFEPIME 1,000 MG in SYRINGE 0 ML IV SCH (17:39)
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
--- NOTE | 2022-10-01 18:31 | Billing Data ---
Date of Service October 01, 2022 Coding Level of Care Code 28160 SUB INP/OBS CARE 3MIN
--- NOTE | 2022-10-01 19:41 | Surgery Consultation ---
Date of Consultation October 01, 2022 Assessment & Plan (1) Abscess of right leg: Patient seen, evaluated, and treated. I have reviewed CT images and CT report. Images show a right lower leg wound with a large multiloculated collection in the posterior right lower leg measuring approximately 26 x 8.7 x 4.4 cm co ncerning for a large abscess.Locules of gas noted. At this time Patient would benefit from I&D, debridement and exploration. This was discussed in detail with Patient as well as post operative recovery. He is aware of the possible loss of right leg. I discussed expectations and patient's current high risk of loss of limb. All questions answered. I have discussed procedure in detail as well as postoperative recovery. All potential risks, benefits, complications, alternatives, rehab, potential for incomplete relief of symptoms, need for further surgery, DVT, PE, , persistent pain, swelling, scarring, weakness, neurovascular, wound complications and potential for amputations were discussed with patient. Unwanted outcomes such as, but not limited to were reviewed including under correction, overcorrection, return of deformity, infection. All questions were answered. Patient has decided to proceed with procedure as indicated. (2) Localized swelling of right lower leg: History of Present Illness Attending Physician: Rashaun Hamilton DO History of Present Illness Patient is a 62 year old male seen at bedside for Right ankle/Achilles wound. Patient has a complex past medical history including ESRD on dialysis (L wrist fistula), L BKA, CAD, HFrEF, PAD, DM, and HTN. Patient currently resides at [facility]. He was brought to [facility] ED on 09/30/22 via EMS after an ultrasound of his right leg suggested possible abscess vs hematoma. Patient has had right ankle/achilles wound for multiple months. He was admitted to [facility] 07/2022 and had Achilles debridement. Per records, he had a right SFA and popliteal angioplasty 07/29/22. He was seen by [facility] on 09/30/22 who note no intervention necessary at this time. Allergies Allergy/AdvReac Type Severity Reaction Status Date / Time doxycycline Allergy Intermediate Rash Verified 09/30/22 17:43 cephalexin [From Keflex] AdvReac Intermediate ITCHING Verified 09/30/22 17:43 Home Medications Medication Instructions Recorded Confirmed Type aspirin 81 mg tablet,delayed 81 mg PO QAM #30 tabs 07/12/22 09/30/22 Rx release atorvastatin 20 mg tablet 20 mg PO QPM #30 tabs 07/12/22 09/30/22 Rx sevelamer HCl 800 mg tablet 2,400 mg PO TIDM #270 tabs 07/12/22 09/30/22 Rx (Renagel) acetaminophen 325 mg tablet 650 mg PO Q4H PRN PAIN/FEVER 09/30/22 09/30/22 History (Tylenol) amoxicillin 500 mg-potassium 1 tab PO QPM 09/30/22 09/30/22 History clavulanate 125 mg tablet carboxymethylcellulose sodium 1 % 1 drp OPB QID 09/30/22 09/30/22 History eye drops (Artificial Tears (carboxymethylcellulose)) diclofenac sodium 1 % topical gel 1 g topical QID PRN Pain 09/30/22 09/30/22 History folic acid 1 mg tablet 1 mg PO QDL 09/30/22 09/30/22 History gabapentin 100 mg capsule 100 mg PO QDL 09/30/22 09/30/22 History hydralazine 25 mg tablet 25 mg PO TID 09/30/22 09/30/22 History menthol 0.44 %-zinc oxide 20.6 % 1 applic topical BID PRN 09/30/22 09/30/22 History topical ointment (Calmoseptine) SCARUM/BUTTOCKS NEEDED metoprolol succinate 25 mg 25 mg PO BID 09/30/22 09/30/22 History tablet,extended release 24 hr multivitamin 1 tab PO DAILY 09/30/22 09/30/22 History nystatin 100,000 unit/gram topical 1 applic topical BID 09/30/22 09/30/22 History powder pantoprazole 40 mg tablet,delayed 40 mg PO AMHS 09/30/22 09/30/22 History release polyethylene glycol 3350 17 gram 17 g PO BIDM 09/30/22 09/30/22 History oral powder packet (Miralax) potassium chloride 20 mEq 20 meq PO QDL 09/30/22 09/30/22 History tablet,extended release(part/cryst) silver sulfadiazine 1 % topical 1 applic topical TID 09/30/22 09/30/22 History cream tramadol 50 mg tablet 50 mg PO Q6H PRN Pain 09/30/22 09/30/22 History trazodone 50 mg tablet 50 mg PO HS 09/30/22 09/30/22 History triamcinolone acetonide 0.1 % 1 applic topical BID 09/30/22 09/30/22 History topical ointment Patient History Medical History Acute blood loss anemia Acute kidney injury Amputated toe of left foot Amputated toe of right foot Anasarca Bilateral cellulitis of lower leg ESRD (end stage renal disease) on dialysis Gangrene Gangrene HTN (hypertension) Hyperparathyroidism due to end stage renal disease on dialysis Metabolic acidosis Nephrotic syndrome Obesity Osteomyelitis Proteinuria Surgical History History of angioplasty of peripheral vessel S/P arteriovenous (AV) fistula creation Status post incision and drainage left foot wound Family History Other Diabetes Family history non-contributory Hypertension Social History Smoking Status: Never smoker Second Hand Exposure: No; Do You Dip or Chew Tobacco: No; Tobacco Cessation Education Requested by Patient: No Hx Alcohol Use: Yes Alcohol type: other Hx Substance Use: No Preferred Language: Croatian Communication Ability: Effective Visual Impairment: No Limitations Hearing Ability: Hard of Hearing Metal Filer Required: No Beliefs That Will Affect Care: None marital status: Single Current Living Situation: Skilled Nursing Other Information That Helps Us Care for You: No Feels Safe at Home: Yes Safety Concerns: Feels Safe At This Time caffeine: Yes during the past year weight has: remained stable Seatbelt Use: always Sunscreen Use: No Assistive Devices: Oxygen - at Night, Walker and Wheelchair Assistive Devices Comment: Uses wheelchair Review of Systems Review of Systems: All systems reviewed & are unremarkable except as noted in HPI & below Physical Exam Constitutional: cooperative and comfortable Eyes: normal accommodation Respiratory: normal respiratory effort Cardiovascular: Rate/Rhythm: regular rate and regular rhythm pedal pulses: pos terior tibial puls es present, dorsal is pedis pulses pr esent Musculoskeletal: Left BKA Skin: There is an open wound overlying Achilles tendon. The tendon is grossly absent extending from the calcaneus to about one half way up the calf. There is some purulent drainage noted. There is no crepitus noted in the soft tissue. Right heel pressure wound noted. Unstageable. Neurologic: Absent epicritic sensation noted to RLE Psychiatric: Orientation: alert and oriented x 3 Results & Data ([place]) Vital Signs (Past 12 Hours) Vital Signs Temp Pulse Pulse Resp BP BP Pulse Ox 10/01/22 15:16 36.5 C 77 18 134/86 97 10/01/22 13:50 36.5 C 129/74 10/01/22 13:30 79 128/68 10/01/22 13:46 36.5 C 80 18 140/86 96 10/01/22 13:00 80 133/76 10/01/22 12:30 77 134/78 10/01/22 12:00 70 125/97 10/01/22 11:30 74 131/78 10/01/22 11:00 74 133/76 10/01/22 10:30 74 103/60 10/01/22 10:00 77 117/71 10/01/22 09:47 36.6 C 10/01/22 07:44 O2 Del Method O2 Flow Rate 10/01/22 15:16 Room Air 10/01/22 13:50 10/01/22 13:30 10/01/22 13:46 Room Air 10/01/22 13:00 10/01/22 12:30 10/01/22 12:00 10/01/22 11:30 10/01/22 11:00 10/01/22 10:30 10/01/22 10:00 10/01/22 09:47 10/01/22 07:44 Nasal Cannula 2 Diagnostic Findings CLINICAL HISTORY: Right lower leg pain. Possible abscess, high creatinine. COMPARISON STUDY: CT of the right tibia and fibula July 19, 2022. TECHNIQUE: Axial images of the right tibia and fibula/lower leg were obtained without IV contrast. Sagittal and coronal reconstructions were viewed. Automated exposure control was utilized for the study. A dose lowering technique was utilized adhering to the principles of ALARA. FINDINGS: No acute fracture within the right tibia or fibula is identified. There is no evidence for acute osteomyelitis. The right calcaneus is partially obscured on this exam. Note is made of a wound of the posterior right lower leg which was shown on prior CT. There has been interval development of an as sociated large fluid collection overlying the posterior musculature of the right lower leg since prior CT. This multiloculated fluid collection contains several locules of gas. This overlies the soleus and gastrocnemius muscles. This collection measure approximately 26 x 8.7 x 4.4 cm and is consistent with a large abscess. This contains a tubular hypodensity which could reflect a residual portion of the Achilles. The Achilles is likely torn, although suboptimally assessed by CT but extensive vascular calcification within the right lower leg is noted. Soft tissue calcifications are again noted. Alignment of the right knee is anatomic there is no right knee joint effusion. IMPRESSION: 1. Posterior right lower leg wound with interval development of a large multiloculated collection of the posterior right lower leg which measures approximately 26 x 8.7 x 4.4 cm. This is consistent with a large abscess. This contains several locules of gas which could be due to the open wound or represen t a gas-forming infectious process. Suspected disruption of the Achilles tendon, as described above, suboptimally assessed by CT. 2. No acute fracture. No evidence for acute osteomyelitis within the right tibia or fibula. Calcaneus partially imaged on this study. ACT 112: Negative or not required by law. Electronically signed by: Andres Overton M.D. 09/30/2022 5:01 PM
[2022-10-01] MEDS ORDERED: PROPOFOL IV EMULSION 10 MG/ML 20 ML VIAL IV ONE (20:28)
[2022-10-01] MEDS ORDERED: ROCURONIUM BROMIDE 10 MG/ML 5 ML VIAL IV ONE (20:28)
[2022-10-01] MEDS ORDERED: ONDANSETRON INJ 2 MG/ML 2 ML VIAL ONE (20:28)
[2022-10-01] MEDS ORDERED: DEXAMETHASONE SOD INJ 4 MG/ML VIAL ONE (20:28)
[2022-10-01] MEDS ORDERED: LIDOCAINE 2% MPF LOCAL 5 ML VIAL INFIL ONE (20:28)
[2022-10-01] MEDS ORDERED: fentaNYL citrate PF 100 MCG/2 ML VIAL ONE ×2 (20:29→22:24)
--- NOTE | 2022-10-01 20:35 | History & Physical Bridge Note ---
Date of Service October 01, 2022 History & Physical Bridge Note I have examined the patient, reviewed the History & Physical and in the interval since the performance of the History & Physical I have noted the following changes of clinical significance: no changes noted
[2022-10-01] MEDS ORDERED: ATROPINE SULFATE 0.1 MG/ML 10ML SYR IV PRN ×2 (20:45→22:19)
[2022-10-01] MEDS ORDERED: ePHEDrine sulfate 50 MG/ML AMP IV PRN ×2 (20:45→22:19)
--- NOTE | 2022-10-01 20:45 | Anesthesiology Consultation ---
Date of Service October 01, 2022 Assessment & Plan (1) Encounter for pre-operative examination: Chart Review Chart Review: Acceptable Risk for Surgery and Patient NOT seen in Pre Admission Testing Consults Requested none History Surgery Operation Date: 10/01/22 17:55 Proposed Procedures p Incision and Drainage right ankle(Right) - Conner German DPM, MS Height/Weight Height: 6 ft 2 in Weight: 116.5 kg Allergies Allergy/AdvReac Type Severity Reaction Status Date / Time doxycycline Allergy Intermediate Rash Verified 09/30/22 17:43 cephalexin [From Keflex] AdvReac Intermediate ITCHING Verified 09/30/22 17:43 Medications Home Medications Medication Instructions Recorded Confirmed Last Taken aspirin 81 mg tablet,delayed 81 mg PO QAM #30 tabs 07/12/22 09/30/22 09/30/22 release atorvastatin 20 mg tablet 20 mg PO QPM #30 tabs 07/12/22 09/30/22 09/29/22 sevelamer HCl 800 mg tablet 2,400 mg PO TIDM #270 tabs 07/12/22 09/30/22 09/30/22 12:00 (Renagel) acetaminophen 325 mg tablet 650 mg PO Q4H PRN PAIN/FEVER 09/30/22 09/30/22 Unknown (Tylenol) amoxicillin 500 mg-potassium 1 tab PO QPM 09/30/22 09/30/22 Unknown clavulanate 125 mg tablet carboxymethylcellulose sodium 1 % 1 drp OPB QID 09/30/22 09/30/22 09/30/22 13:00 eye drops (Artificial Tears (carboxymethylcellulose)) diclofenac sodium 1 % topical gel 1 g topical QID PRN Pain 09/30/22 09/30/22 Unknown folic acid 1 mg tablet 1 mg PO QDL 09/30/22 09/30/22 09/30/22 gabapentin 100 mg capsule 100 mg PO QDL 09/30/22 09/30/22 09/30/22 hydralazine 25 mg tablet 25 mg PO TID 09/30/22 09/30/22 09/30/22 13:00 menthol 0.44 %-zinc oxide 20.6 % 1 applic topical BID PRN 09/30/22 09/30/22 Unknown topical ointment (Calmoseptine) SCARUM/BUTTOCKS NEEDED metoprolol succinate 25 mg 25 mg PO BID 09/30/22 09/30/22 09/30/22 11:30 tablet,extended release 24 hr multivitamin 1 tab PO DAILY 09/30/22 09/30/22 09/30/22 nystatin 100,000 unit/gram topical 1 applic topical BID 09/30/22 09/30/22 Unknown powder pantoprazole 40 mg tablet,delayed 40 mg PO AMHS 09/30/22 09/30/22 09/30/22 09:00 release polyethylene glycol 3350 17 gram 17 g PO BIDM 09/30/22 09/30/22 09/30/22 09:00 oral powder packet (Miralax) potassium chloride 20 mEq 20 meq PO QDL 09/30/22 09/30/22 09/30/22 tablet,extended release(part/cryst) silver sulfadiazine 1 % topical 1 applic topical TID 09/30/22 09/30/22 Unknown cream tramadol 50 mg tablet 50 mg PO Q6H PRN Pain 09/30/22 09/30/22 Unknown trazodone 50 mg tablet 50 mg PO HS 09/30/22 09/30/22 09/29/22 triamcinolone acetonide 0.1 % 1 applic topical BID 09/30/22 09/30/22 Unknown topical ointment Active Medications Generic Name Dose Route Start Last Admin Trade Name Freq PRN Reason Stop Dose Admin Atorvastatin Calcium 20 mg 09/30/22 22:40 09/30/22 23:30 Atorvastatin 20 Mg Tab PO 10/30/22 22:39 20 mg QPM VIN Administration Hydralazine HCl 25 mg 10/01/22 09:00 10/01/22 14:11 Hydralazine Hcl 25 Mg Tab PO 10/31/22 08:59 25 mg TID VIN Administration Metronidazole 500 mg in 100 mls @ 100 mls/hr 10/01/22 02:00 10/01/22 18:27 Flagyl IV 10/08/22 01:59 100 mls/hr Q8H VIN Administration Cefepime HCl 1,000 mg/ Syringe 10 mls @ 5 mls/min 10/01/22 18:00 10/01/22 17:39 IV 10/08/22 17:59 5 mls/min Q24H VIN Administration Daptomycin 350 mg/ Syringe 7 mls @ 3.75 mls/min 10/01/22 02:00 10/01/22 03:02 IV 10/08/22 01:59 3.75 mls/min Q48H VIN Administration Protocol Metoprolol Succinate 25 mg 09/30/22 22:45 10/01/22 14:10 Metoprolol Succ 25mg Ext Rel Tab PO 10/30/22 22:44 Not Given BID@1200,2100 VIN Oxycodone HCl 2.5 mg 09/30/22 22:08 10/01/22 14:01 Oxycodone Hcl Ir 5 Mg Tab (Immediate Release) PO 10/14/22 22:07 2.5 mg Q8H PRN Administration Severe Pain 7-10 Pantoprazole Sodium 40 mg 10/01/22 09:00 10/01/22 09:53 Pantoprazole 40 Mg Tab PO 10/31/22 08:59 Not Given BID VIN Polyethylene Glycol 17 gm 10/01/22 08:00 10/01/22 17:39 Polyethylene (Miralax) 17 Gm Pack PO 10/31/22 07:59 Not Given BIDM VIN Sevelamer HCl 2,400 mg 09/30/22 22:40 10/01/22 17:39 Sevelamer Hcl 800 Mg Tablet PO 10/30/22 22:39 Not Given TIDM VIN NPO Date Last Intake of Fluids: 10/01/22 Time Last Intake of Fluids: 13:00 Last Intake of Fluids Comment: sips Date Last Intake of Solids: 09/30/22 Time Last Intake of Solids: 08:00 Past Medical History Medical History Acute blood loss anemia Acute kidney injury Amputated toe of left foot Amputated toe of right foot Anasarca Bilateral cellulitis of lower leg ESRD (end stage renal disease) on dialysis Gangrene Gangrene HTN (hypertension) Hyperparathyroidism due to end stage renal disease on dialysis Metabolic acidosis Nephrotic syndrome Obesity Osteomyelitis Proteinuria Past Family History Family History Other Diabetes Family history non-contributory Hypertension Past Surgical History Surgical History History of angioplasty of peripheral vessel S/P arteriovenous (AV) fistula creation Status post incision and drainage left foot wound Social History Smoking Status: Never smoker Do You Dip or Chew Tobacco: No Hx Alcohol Use: Yes Alcohol type: other alcohol intake frequency: holidays/special occasions only Hx Substance Use: No substance use type: does not use Physical Exam Vital Signs Last Vital Signs Temp 97.5 F L 10/01/22 19:47 Pulse 84 10/01/22 19:47 Resp 18 10/01/22 19:47 BP 135/87 10/01/22 19:47 Pulse Ox 99 10/01/22 19:47 O2 Del Method Room Air 10/01/22 19:47 O2 Flow Rate 2 10/01/22 07:44 Testing Laboratory Results 10/01/22 06:34 10/01/22 06:34 09/30/22 15:55 Aerobic Blood Culture - Preliminary Blood No growth in Aerobic bottle after 24 hours. 09/30/22 15:29 Aerobic Blood Culture - Preliminary Blood No growth in Aerobic bottle after 24 hours. Anaerobic Blood Culture - Preliminary No growth in Anaerobic bottle after 24 hours. 09/30/22 21:35 Gram Stain - Final Leg,Right Aerobic and Anaerobic Culture - Preliminary Pin-point growth present, reincubating. 10/01/22 10/01/22 10/01/22 17:08 13:51 12:37 POC Glucose 83 76 81
[2022-10-01] MEDS ORDERED: SUGAMMADEX SODIUM 200 MG/2 ML VIAL IV ONE (21:42)
--- NOTE | 2022-10-01 22:06 | Post Operative Brief Note ---
Immediate Post Op Note v1 Date of Surgery October 01, 2022 Pre & Post Diagnosis Operation Date: 10/01/22 17:55 Pre-Op Diagnosis: right leg wound Post-Op Diagnosis: right leg wound I identified the patient and participated in the time-out.: Yes Procedure Operation Date: 10/01/22 17:55 Actual Procedures p Incision and Drainage right ankle(Right) - Conner German DPM, MS Surgeon Conner German DPM, MS Grinder Setup Operator None Estimated Blood Loss 5 Findings Consistent with Post-Op Diagnosis Drains Brad Drain Complications None
--- NOTE | 2022-10-01 22:07 | Operative Report ---
Post Operative Report Pre & Post Diagnosis Operation Date: 10/01/22 17:55 Pre-Op Diagnosis: right leg wound Post-Op Diagnosis: right leg wound I identified the patient and participated in the time-out.: Yes Procedure Operation Date: 10/01/22 17:55 Actual Procedures p Incision and Drainage right ankle(Right) - Conner German DPM, MS Surgeon Conner German DPM, MS Horizontal Boring Mill Operator None Estimated Blood Loss 5 Findings Consistent with Post-Op Diagnosis Right leg abscess consistent with preoperative diagnosis Specimens Deep cultures for microbiology Drains Brad Description of Procedure History of present illness: Patient is a 62 year old malewho is seen for t reatmentof right Achilles wound with abscess. Patient is seen for operative care including exploration, incision and drainage right lower extremity.Patient is at high risk for limb loss. All questions answered. Discussed procedure in detail and postoperative recovery. All potential risks, benefits, complications, alternatives, rehab, potential for incomplete relief of symptoms, need for further surgery, DVT, PE, , persistent pain, swelling, scarring, weakness, neurovascular, wound complications and potential for amputations were discussed with patient. Unwanted outcomes such as, but not limited to were reviewed including under correction, overcorrection, return of deformity, infection. All questions were answered. Patient has decided to proceed with procedure as indicated. Preoperative diagnosis: 1.) Right Achilles wound 2.) Right leg abscess Postoperative diagnosis: same Name of operation: 1.) Wound debridement of right leg 2.) Incision and drainage of right leg Surgeon Dr. German Horizontal Boring Mill Operator: None Anesthesia: Monitored anesthesia care Hemostasis: pneumatic ankle tourniquet as needed Estimated blood loss: minimal Procedure in detail: Under mild sedation the patient was brought in the operating room and placed on the operating table in supine position. Following IV sedation the patient was transferred to the prone position, the right lower extremity was prepped scrubbed and draped in usual aseptic manner. At this time attention was directed to the right posterior leg wound measuring approximately 6 cm x 5 cm x 0.4cm. The Wound base shows exposed muscle and tendon. The ulcer base is described as containing 75 % pink granulation. Necrotic or devitalized tissue is estimated to be present in approximately 25% of the ulcer bed. I debrided the wound sharply with a sterile #15 blade and necrotic tissue was excised down to and including muscle and tendon. At this time attention was directed to the proximal aspect of the wound where purulent drainage was emanating. Utilizing a sterile #15 blade an incision was created starting from the proximal wound margin and continuing over the right posterior muscle belly. The incision was deepened utilizing care to retract and protect all neurovascular tissue. Copious amounts of purulence was released. Deep cultures were taken. Approximately 400ml was expressed from multiple locations in the posterior muscle group. 3 L of lactated Ringer was then irrigated with low flow into the wound. Further nonviable soft tissue was excised as needed sharply. A Brad drain was placed proximal. 1/2 packing was placed through out the wound. Retention sutures were placed in horizontal mattress technique. The wound was dressed with 4x4 gauze, ABD, Kerlix, LYLE. The Patient tolerated the procedure and anesthesia well. He was transferred to recovery room vital signs stable. Following a period of postoperative monitoring the patient will be readmitted to floor with the continuation of all preoperative orders. I attest to the content of the Intraoperative Record and any orders documented therein. Any exceptions are noted below.
[2022-10-01] MEDS: fentaNYL citrate PF 100 MCG/2 ML VIAL IV PRN ×4 (22:20→22:35)
--- NOTE | 2022-10-01 23:01 | Anesthesiology Progress Note ---
Date of Service October 01, 2022 Anesthesia Post Procedure Vital Signs Vital Signs: Temp Pulse Pulse Resp BP BP Pulse Ox 10/01/22 22:50 97.9 F 81 22 123/70 98 10/01/22 22:40 79 19 136/77 100 10/01/22 22:30 81 16 108/71 98 10/01/22 22:20 87 18 104/62 94 10/01/22 22:13 98.4 F 90 23 98/66 L 90 10/01/22 19:47 97.5 F L 84 18 135/87 99 10/01/22 15:16 97.7 F 77 18 134/86 97 10/01/22 13:50 97.7 F 129/74 10/01/22 13:30 79 128/68 10/01/22 13:46 97.7 F 80 18 140/86 96 10/01/22 13:00 80 133/76 10/01/22 12:30 77 134/78 10/01/22 12:00 70 125/97 10/01/22 11:30 74 131/78 10/01/22 11:00 74 133/76 10/01/22 10:30 74 103/60 10/01/22 10:00 77 117/71 10/01/22 09:47 97.9 F 10/01/22 07:44 10/01/22 07:08 97.7 F 71 18 135/87 99 O2 Del Method O2 Flow Rate 10/01/22 22:50 Nasal Cannula 2 10/01/22 22:40 Nasal Cannula 2 10/01/22 22:30 Nasal Cannula 2 10/01/22 22:20 Nasal Cannula 2 10/01/22 22:13 Room Air 10/01/22 19:47 Room Air 10/01/22 15:16 Room Air 10/01/22 13:50 10/01/22 13:30 10/01/22 13:46 Room Air 10/01/22 13:00 10/01/22 12:30 10/01/22 12:00 10/01/22 11:30 10/01/22 11:00 10/01/22 10:30 10/01/22 10:00 10/01/22 09:47 10/01/22 07:44 Nasal Cannula 2 10/01/22 07:08 Nasal Cannula 2 Pain Intensity Right Leg: Pain Intensity: 4 Transfer of Care Handoff Completed per policy Notes Mental Status: alert / awake / arousable and participated in evaluation Patient Amnestic to Procedure: Yes Nausea / Vomiting: adequately controlled Pain: adequately controlled Airway Patency, RR, SpO2: stable & adequate BP & HR: stable & adequate Hydration State: stable & adequate Anesthetic Complications: no major complications apparent and Pt Satisfied with anesthetic care
[2022-10-01] MEDS: ATORVASTATIN 20 MG TAB PO SCH (23:32)
[2022-10-02] MEDS: metroNIDAZOLE 500 MG/100 ML BAG IV SCH ×3 (02:01→17:52)
[2022-10-02] MEDS ORDERED: MoRPHine SULFATE 2 MG/ML CARP IV STA ×2 (02:13→03:17)
[2022-10-02] MEDS ORDERED: oxyCODONE HCL IR 5 MG TAB (IMMEDIATE RELEASE) PO STA (04:41)
[2022-10-02] MEDS: oxyCODONE HCL IR 5 MG TAB (IMMEDIATE RELEASE) PO PRN ×3 (04:53→20:02)
--- NOTE | 2022-10-02 05:36 | Electrocardiogram Report ---
Test Reason : Blood Pressure : / mmHG Vent. Rate : 083 BPM Atrial Rate : 083 BPM P-R Int : 174 ms QRS Dur : 098 ms QT Int : 410 ms P-R-T Axes : 051 025 -66 degrees QTc Int : 481 ms Poor data quality, interpretation may be adversely affected Normal sinus rhythm Low voltage QRS Nonspecific ST and T wave abnormality Prolonged QT Abnormal ECG When compared with ECG of 19-JUL-2022 19:27, Aberrant conduction is no longer Present TN interval has decreased QRS duration has decreased Confirmed by Tian Bermudez ([id number]) on 10/02/2022 5:36:30 AM Referred By: REFERRED SELF Confirmed By:Tian Bermudez
[2022-10-02 07:49] LABS: Basophils # (auto) 0.02 K/uL (0-0.2); Basophils % (auto) 0.3 %; Eosinophils # (auto) 0.01 K/uL (0-0.50); Eosinophils % (auto) 0.1 %; Hematocrit (blood only) 27.8 % (42.0-52.0); Hemoglobin 8.6 g/dl (14.0-18.0); Immature Granulocytes # (auto) 0.03 K/uL (0.01-0.20); Immature Granulocytes % (auto) 0.4 %; Lymphocytes # (auto) 0.64 K/uL (1.2-3.4); Lymphocytes % (auto) 8.4 %; Mean Corpuscular Hemoglobin 27.3 pg (25.0-34.0); Mean Corpuscular Hgb Conc 30.9 g/dL (32.0-36.0); Mean Corpuscular Volume 88.3 fL (80.0-100.0); Mean Platelet Volume 11.7 fL (9.4-12.4); Monocytes # (auto) 0.47 K/uL (0.11-0.59); Monocytes % (auto) 6.2 %; Neutrophils # (auto) 6.45 K/uL (1.40-6.50); Neutrophils % (auto) 84.6 %; Platelet Count 224 K/uL (130-400); RDW Coefficient of Variation 18.3 % (11.5-14.5); RDW Standard Deviation 59.3 fL (36.4-46.3); Red Blood Count 3.15 M/uL (4.70-6.10); White Blood Count 7.62 K/ul (4.8-10.8)
[2022-10-02 08:21] LABS: BUN Creatinine Ratio 9.9 (10-20); Calcium 8.8 mg/dl (8.5-10.1); Creatinine Clr Calc Pharmacy 36.6 ml/min; Est GFR (African American) 25.8 ml/min; Est GFR (Non-African American) 22.3 ml/min; Magnesium 1.9 mg/dl (1.7-2.4); Phosphorus 2.7 mg/dl (2.5-4.9)
[2022-10-02] MEDS: POLYETHYLENE (MIRALAX) 17 GM PACK PO SCH ×2 (08:22→17:51)
[2022-10-02] MEDS: hydrALAZINE HCL 25 MG TAB PO SCH ×3 (08:24→20:34)
[2022-10-02] MEDS: PANTOprazole 40 MG TAB PO SCH ×2 (08:24→20:35)
[2022-10-02] MEDS: SEVELAMER HCL 800 MG TABLET PO SCH ×3 (08:25→17:51)
[2022-10-02] MEDS: HYDROmorphone INJ 0.5 MG/0.5 ML SYR IV PRN (10:19)
--- NOTE | 2022-10-02 10:37 | Nephrology Progress Note ---
Date of Service October 02, 2022 Assessment & Plan (1) End-stage renal disease on hemodialysis: Plan: Outpatient Rx: TTS 4.5hr, 2K 2.5Ca Na 137, HCO3 38, F-250 NR, 14 g needles, Qb500 Qd 800, EDW 116 Kg, heparin 3000 unit bolus + 2500 units q1 hr, L forearm AVF. Tolerated HD well without complications. Adequate clearance. UF 1.9 L. Volume status controlled. Next HD planned for tomorrow. Medications appropriately dosed for kidney function. Document daily weight. Check metabolic profile tomorrow AM prior to HD. Renal diet. (2) Anemia: Plan: Chronic, stable. Recently competed IV Venofer loading. Hgb 8.7 on 09/24. Mircera 150 mcg q4wk - last dose 09/28. Repeat H/H in the AM. (3) Hypertension: Plan: Maintained on metoprolol succinate 25 mg BID and hydralazine 25 mg TID. Antihypertensives held prior to dialysis. Volume status acceptable. (4) Secondary hyperparathyroidism of renal origin: Plan: Renal diet. Sevelamer 2400 mg QAC. (5) Abscess of right leg: Plan: Ortho and vascular consultations reviewed. Remains on cefepime, dapto, and flagyl. Admission and Anticipated Discharge Date Admission Date: September 30, 2022 Subjective No acute events overnight. Tolerated HD well yesterday. No complications with treatment. No fevers or chills. Reports some persistent pain. Review of Systems Review of Systems: All systems reviewed & are unremarkable except as noted in HPI & below Physical Exam Constitutional: + morbidly obese; no acute distress Eyes: + anicteric sclerae; no corneal abnormality ENMT: Mouth: no oral mucosal abnormality and oral mucous membranes not dry Neck: normal visual inspection and trachea midline Respiratory: normal respiratory effort Auscultation: lungs clear to auscultation bilaterally and + diminished lung sounds Cardiovascular: Rate/Rhythm: regular rate Heart Sounds: normal S1, normal S2 and + murmur Extremities: + AV fistula; no edema Musculoskeletal: Extremities: no cyanosis and no clubbing Skin: + turgor decreased and + lesion (multiple scabbed ulcers on stump); no jaundice Neurologic: Motor/Sensory: no tremor and no asterixis Psychiatric: Orientation: alert and oriented x 3 Results & Data Vital Signs (Past 12 Hours) Vital Signs Temp Pulse Resp BP Pulse Ox O2 Del Method O2 Flow Rate 10/02/22 07:25 36.6 C 86 18 135/81 94 Room Air 10/02/22 02:56 36.6 C 85 18 135/81 96 Room Air 10/02/22 01:54 36.6 C 85 18 149/84 H 100 Room Air 10/02/22 00:54 36.6 C 85 18 153/93 H 99 Room Air 10/02/22 00:08 36.5 C 77 18 156/97 H 100 Room Air 10/01/22 23:26 36.5 C 83 18 162/84 H 98 Room Air 10/01/22 23:14 36.3 C L 81 18 145/74 H 98 Room Air 10/01/22 23:03 83 21 134/73 99 Nasal Cannula 2 10/01/22 22:50 36.6 C 81 22 123/70 98 Nasal Cannula 2 10/01/22 22:40 79 19 136/77 100 Nasal Cannula 2 Laboratory Results Laboratory Results - last 24 hr 10/01/22 10/01/22 10/01/22 12:37 13:51 17:08 WBC RBC Hgb Hct MCV MCH MCHC RDW Std Deviation RDW Coeff of Dorcas Plt Count MPV Immature Gran % (Auto) Neut % (Auto) Lymph % (Auto) [place] % (Auto) Eos % (Auto) Baso % (Auto) Neut # (Auto) Lymph # (Auto) [place] # (Auto) Eos # (Auto) Baso # (Auto) Immature Gran # (Auto) Sodium Potassium Chloride Carbon Dioxide Anion Gap BUN Creatinine Est Cr Clr Drug Dosing Est GFR ( Amer) Est GFR (Non-Af Amer) BUN/Creatinine Ratio Glucose POC Glucose 81 76 83 Estimat Average Glucose Hemoglobin A1c Calcium Phosphorus Magnesium 10/01/22 10/02/22 10/02/22 22:19 00:07 07:10 WBC 7.62 RBC 3.15 L Hgb 8.6 L Hct 27.8 L MCV 88.3 MCH 27.3 MCHC 30.9 L RDW Std Deviation 59.3 H RDW Coeff of Dorcas 18.3 H Plt Count 224 MPV 11.7 Immature Gran % (Auto) 0.4 Neut % (Auto) 84.6 Lymph % (Auto) 8.4 [place] % (Auto) 6.2 Eos % (Auto) 0.1 Baso % (Auto) 0.3 Neut # (Auto) 6.45 Lymph # (Auto) 0.64 L [place] # (Auto) 0.47 Eos # (Auto) 0.01 Baso # (Auto) 0.02 Immature Gran # (Auto) 0.03 Sodium Potassium Chloride Carbon Dioxide Anion Gap BUN Creatinine Est Cr Clr Drug Dosing Est GFR ( Amer) Est GFR (Non-Af Amer) BUN/Creatinine Ratio Glucose POC Glucose 83 103 H Estimat Average Glucose Hemoglobin A1c Calcium Phosphorus Magnesium 10/02/22 10/02/22 10/02/22 07:10 08:11 10:01 WBC RBC Hgb Hct MCV MCH MCHC RDW Std Deviation RDW Coeff of Dorcas Plt Count MPV Immature Gran % (Auto) Neut % (Auto) Lymph % (Auto) [place] % (Auto) Eos % (Auto) Baso % (Auto) Neut # (Auto) Lymph # (Auto) [place] # (Auto) Eos # (Auto) Baso # (Auto) Immature Gran # (Auto) Sodium 136 Potassium 4.0 Chloride 98 Carbon Dioxide 28 Anion Gap 10 BUN 29 H Creatinine 2.92 H D Est Cr Clr Drug Dosing 36.6 Est GFR ( Amer) 25.8 Est GFR (Non-Af Amer) 22.3 BUN/Creatinine Ratio 9.9 L Glucose 133 H POC Glucose 137 H Estimat Average Glucose Pending Hemoglobin A1c Pending Calcium 8.8 Phosphorus 2.7 D Magnesium 1.9 PG Care Time/CCT Total # of Minutes Spent Total Time Spent with Patient: Total time spent is greater than 50% in coordination of care (as documented) at patient's floor/unit and/or counseling patient: Coding Level of Care Code 10981 SUB INP/OBS CARE 3/50MIN Diagnoses End-stage renal disease on hemodialysis N18.6; Z99.2 Anemia D64.9 Anemia type: unspecified type Hypertension I10 Secondary hyperparathyroidism of renal origin N25.81 Abscess of right leg L02.415 (2) Anemia Anemia type: unspecified type Qualified Code(s): D64.9 - Anemia, unspecified
[2022-10-02 12:32] LABS: Estimated Average Glucose 103 mg/dl; Hemoglobin A1C 5.2 % (4.5-5.6)
--- NOTE | 2022-10-02 12:46 | Medical Student Progress Note ---
Date of Service October 02, 2022 Assessment & Plan (1) Abscess of right leg: Plan 1. R leg wound - stable - s/p i&d, ~400 mL pus removed. - Tx: continue metronydazole, increase oxycodone frequency. Admission and Anticipated Discharge Date Admission Date: September 30, 2022 Supervising Attestation I personally examined the patient and verified all dhillon points of history and exam, discussed case, and agree with decision making with Crystal JEAN BAPTISTE And much less pain whenever I see him. Notes that his pain is under good control. I see him around 2303 PM, he had had his last dose of pain medicine at about 10:30 AM. Is quite impressed with how much less swollen his calf is. Vitals noted, in general he is awake pleasant no distress. HEENT normocephalic atraumatic mucous membranes moist. Breathing unlabored no accessory muscle use good effort. Calf much softer, unfortunately also much more easy to note muscle atrophy now, but nontender no erythema no crepitus. Wound is dressed. No tracking erythema outside of the dressing. CBC, basic metabolic panel, surgical cultures noted. Right leg infection with concern on gangrenefortunately not rapidly progressive, fortunately not severe sepsis/septic shock, and now postop with source control (400 mL of pus removed) we are now mostly treating residual cellulitis and myositiswhich still will require broad antibiotics and likely a prolonged course of therapy as well as wound care, but he appears to be out of danger. Pain under better control now that we have escalated to IV Dilaudid. Hopefully will be able to taper over time, but right now certainly requires IV narcotics. Otherwise as above Joseline Quinonez is a 62 y/o with a PMHx significant for L below the knee amputation performed at [facility] [place], anemia, ESRD on dialysis, L BKA, CAD, HFrEF, PAD, DM, and HTN who presented to the ED yesterday from [facility] (?longterm facility) with CC of R lower extremity discomfort. Overnight, he didn't sleep well, but not worse than normal. Today, he reports last night's i&d "hurt worse than the amputation" and that the surgeon "took more than [he] thought they would." He states he wishes his wound had been taken care of 3 weeks ago when he first experiencd symptoms, but is glad that he was seen last night. He reports he feels "burning" pain in his R lower extremity and that the "morphine didn't work" last night. He reports the hydrocodone helped with his pain. Review of Systems Constitutional: + weakness; no fever and no chills Eyes: no eye pain Ear, Nose, Mouth, Throat: no ear pain Respiratory: no cough and no dyspnea Cardiovascular: no chest pain Gastrointestinal: no abdominal pain, no nausea and no vomiting Musculoskeletal: no back pain Integumentary: + lesions (Open wound on right Achilles) Neurologic: no localized weakness Physical Exam Physical Exam: Left BKA. Right ankle with dressing in place, dressing is c/d/i. Constitutional: WD/WN, vitals as above cooperative; no acute distress and not in distress Eyes: + anicteric sclerae; eyes not dysmorphic and no corneal abnormality ENMT: Ears: no hearing impairment and no external ear abnormality Mouth: no oropharynx abnormality, no oral mucosal abnormality and oral mucous membranes not dry Neck: normal visual inspection and trachea midline Respiratory: normal respiratory effort, lungs clear to auscultation normal respiratory effort; no respiratory distress and no labored breathing Auscultation: lungs clear to auscultation bilaterally and + diminished lung sounds Cardiovascular: Rate/Rhythm: regular rate and regular rhythm Heart Sounds: normal S1, normal S2 and + murmur Vessels: posterior tibial pulses present (easily dopplerable RLE biphasic), dorsalis pedis pulses present (easily dopplerable RLE triphasic) and radial pulses present; + abnormal peripheral pulses Extremities: normal capillary refill and + AV fistula; no edema Gastrointestinal (Abdomen): Inspection/Auscultation: abdomen normal to inspection and normal bowel sounds Percussion/Palpation: abdomen soft; abdomen nontender Musculoskeletal: Extremities: strength 5/5 throughout and + amputation noted (LLE BKA); no cyanosis and no clubbing Skin: + turgor decreased, + lesion (multiple scabbed ulcers on stump) and + wound (multiple skin wounds to RLE. ankle dressing not removed); no jaundice Neurologic: moves all extremities and awake; no focal motor deficits and not confused Motor/Sensory: no tremor and no asterixis Psychiatric: A+Ox3, euthymic affect Orientation: alert and oriented x 3 Results & Data Vital Signs (Past 12 Hours) Vital Signs Temp Pulse Resp BP Pulse Ox O2 Del Method O2 Flow Rate 10/02/22 11:46 36.6 C 83 115/73 92 Nasal Cannula 3 10/02/22 07:25 36.6 C 86 18 135/81 94 Room Air 10/02/22 02:56 36.6 C 85 18 135/81 96 Room Air 10/02/22 01:54 36.6 C 85 18 149/84 H 100 Room Air 10/02/22 00:54 36.6 C 85 18 153/93 H 99 Room Air
[2022-10-02] MEDS: METOPROLOL SUCC 25MG EXT REL TAB PO SCH ×2 (12:58→20:34)
[2022-10-02] MEDS: CEFEPIME 1,000 MG in SYRINGE 0 ML IV SCH (18:20)
--- NOTE | 2022-10-02 18:30 | Billing Data ---
Date of Service October 02, 2022 Coding Level of Care Code 92314 SUB INP/OBS CARE 3MIN
[2022-10-02] MEDS: DAPTOmycin 350 MG in SYRINGE 0 ML IV SCH (20:03)
[2022-10-02] MEDS: ATORVASTATIN 20 MG TAB PO SCH (20:34)
--- NOTE | 2022-10-02 22:18 | Orthopedic Progress Note ---
Date of Service October 02, 2022 Assessment & Plan (1) Abscess of right leg: Plan: Patient seen, evaluated, and treated. Additional purulence expressed at wound site. Dressing changed. Distal incision packed with 1/4" iodoform. [place] drain intact. 4x4, ABD, kerlix, Ruiz applied. Awaiting culture and sensitivities. Patient may benefit from use of negative wound therapy. Awaiting adequate control of infection prior to application. Discussed importance for compliance with off loading AFO. Reviewed right heel pressure wound. Thank you for allowing me to participate in the care of the Patient. Admission and Anticipated Discharge Date Admission Date: September 30, 2022 Subjective Patient seen at bedside status post day #1 RLE I&D and debridement. Patient relates no complaints. He states decrease in right leg pain. Patient has AFO at bedside. Review of Systems Review of Systems: All systems reviewed & are unremarkable except as noted in Subjective Physical Exam Respiratory: normal respiratory effort Cardiovascular: Rate/Rhythm: regular rate and regular rhythm Musculoskeletal: Left BKA Skin: Dressing removed. Additional 15ml of purulence expressed from wound site. Sutures intact. Brad drain intact. Iodoform removed. 1/4" iodoform applied to distal incision site. Neurologic: Absent epiciritic sensation. Psychiatric: Orientation: alert and oriented x 3 Results & Data Vital Signs (Past 12 Hours) Vital Signs Temp Pulse Resp BP Pulse Ox O2 Del Method O2 Flow Rate 10/02/22 20:32 36.4 C L 80 18 117/70 95 Room Air 10/02/22 19:03 36.6 C 81 18 114/72 95 Room Air 10/02/22 14:46 36.8 C 79 18 96/64 L 98 Room Air 10/02/22 11:46 36.6 C 83 115/73 92 Nasal Cannula 3
[2022-10-03] MEDS: metroNIDAZOLE 500 MG/100 ML BAG IV SCH ×3 (02:10→17:30)
[2022-10-03] MEDS: oxyCODONE HCL IR 5 MG TAB (IMMEDIATE RELEASE) PO PRN ×2 (02:52→12:14)
[2022-10-03 07:29] LABS: Basophils # (auto) 0.04 K/uL (0-0.2); Basophils % (auto) 0.5 %; Eosinophils # (auto) 0.18 K/uL (0-0.50); Eosinophils % (auto) 2.5 %; Hematocrit (blood only) 26.9 % (42.0-52.0); Hemoglobin 8.4 g/dl (14.0-18.0); Immature Granulocytes # (auto) 0.03 K/uL (0.01-0.20); Immature Granulocytes % (auto) 0.4 %; Lymphocytes # (auto) 1.34 K/uL (1.2-3.4); Lymphocytes % (auto) 18.3 %; Mean Corpuscular Hemoglobin 27.7 pg (25.0-34.0); Mean Corpuscular Hgb Conc 31.2 g/dL (32.0-36.0); Mean Corpuscular Volume 88.8 fL (80.0-100.0); Mean Platelet Volume 10.9 fL (9.4-12.4); Monocytes # (auto) 0.61 K/uL (0.11-0.59); Monocytes % (auto) 8.3 %; Neutrophils # (auto) 5.13 K/uL (1.40-6.50); Nucleated RBC # (auto) 0.02 K/uL (0-0.12); Nucleated RBC % (auto) 0.3 %; Platelet Count 199 K/uL (130-400); RDW Coefficient of Variation 18.5 % (11.5-14.5); RDW Standard Deviation 60.7 fL (36.4-46.3); Red Blood Count 3.03 M/uL (4.70-6.10); White Blood Count 7.33 K/ul (4.8-10.8)
[2022-10-03 07:41] LABS: BUN Creatinine Ratio 10.1 (10-20); Creatinine Clr Calc Pharmacy 30.1 ml/min; Est GFR (African American) 20.4 ml/min; Est GFR (Non-African American) 17.6 ml/min; Magnesium 1.9 mg/dl (1.7-2.4); Phosphorus 2.1 mg/dl (2.5-4.9); Potassium 3.9 mmol/L (3.5-5.1)
--- NOTE | 2022-10-03 07:43 | Medical Student Progress Note ---
Date of Service October 03, 2022 Assessment & Plan (1) Abscess of right leg: (2) Dialysis patient: (3) History of below knee amputation: Laterality: left Qualified Code(s): Z89.512 - Acquired absence of left leg below knee (4) PAD (peripheral artery disease): Plan 1. RLE wound - improving, acute - in context of L BKA - s/p RLE I&D and debridement of by chemical production machine operator Dr. German - per podiatry's I&D note, 6 cm x 5 cm x 0.4cm wound showed exposed muscle and tendon, contained 75 % pink granulation, with necrotic or devitalized tissue present in ~25% of ulcer bed. Necrotic and nonviable tissue was excised down to and including muscle and tendon, and ~400ml purulence expressed. Wound was dressed with 4x4 gauze, ABD, Kerlix, LYLE.Patient at high risk of limb loss. - Last night, additional 150 mL of purulence expressed at wound site, dressing changed, distal incision packed. - Podiatry considering negative wound therapy, pending adequate infection control - Cultures & sensitivities: growing mendes-sensitive Staph (MSSA) & anaerobes. Negative MRSA nares. - Continue encouraging patient to use off loading AFO (brace) - Pain control: patient received 2.5 mg oxycodone at 20:00 last night & 3:00 this am - skin/soft tissue infection has been treated with debridement. Surrounding cellulitis & myocitis remaining, currently Tx with vancopene and metronidazole. - Tx: Stop dapto (no need for MRSA coverage) - Change to ceftriaxone - Continue flagyl - Tomorrow if improvement, change to cefdinir and flagyl. - on d/c, may need support learning to use wound vac 2. End-stage renal disease on hemodialysis - managed by nephrology - followed inpatient by assistant account manager Dr. Potts - received hemodialysis today - per nephrology note, tolerated yesterday's HD well, no complications. Adequate clearance. UF 1.9 L. Volume status controlled. - per nephrology note, plan today is to check AM metabolic profile, document daily weight, HD. - renal diet - Outpatient Rx: TTS 4.5hr, 2K 2.5Ca Na 137, HCO3 38, F-250 NR, 14 g needles, Qb500 Qd 800, EDW 116 Kg, heparin 3000 unit bolus + 2500 units q1 hr, L forearm AVF 3. Anemia - chronic, stable - followed inpatient by assistant account manager Dr. Potts - Labs: RBCs trending down (3.18 on 10/01--> 3.15 on 10/02 -->3.03 today); Hgb trending down (8.7 on 10/01--> 8.6 on 10/02 -->8.4 today); Hct 26.9 (down from 27.8 prior 2 days); - per nephrology note, H/H this am, recently competed IV Venofer loading. Hgb 8.7 on 09/24. Mircera 150 mcg q4wk - last dose 09/28. 4. Hypertension Maintained on metoprolol succinate 25 mg BID and hydralazine 25 mg TID. Antihypertensives held prior to dialysis. Volume status acceptable. 5. Secondary hyperparathyroidism of renal origin Renal diet. Sevelamer 2400 mg QAC. 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 Mixed systolic and diastolic CHF. Use IV fluids w/ caution. CAD: DM: A1c 4.7 on 06/2022. Per Michaela Choudhury, not managed with insulin. PAD: Per scanned vascular surgery report, had 07/29/22 RLE angiogram w/ right SFA and popliteal angioplasty. He had hospitalization during which he had RLE/achilles tendon wound debridement. Continue home baby ASA and statin. FEN/GI: NPO. Dialysis, DM2, HH diet when resumed. ppx: SCD only in RLE code: full DVT prophylaxis: Lovenox Admission and Anticipated Discharge Date Admission Date: September 30, 2022 Supervising Attestation I personally examined the patient and verified all dhillon points of history and exam, discussed case, and agree with decision making with Crystal Sierra MS2 Pain under reasonable but not great control - PO meds help some but not enough, wear off too quick. IV helps a lot but also knocks him out. Vitals noted, in general he is awake pleasant no distress. HEENT normocephalic atraumatic mucous membranes moist. Breathing unlabored no accessory muscle use good effort. Calf soft, no erythema no crepitus. Wound is dressed. No tracking erythema outside of the dressing. CBC, basic metabolic panel, surgical cultures noted. Right leg infection with concern on gangrenefortunately not rapidly progressive, fortunately not severe sepsis/septic shock, and now postop with source control (400+ mL of pus removed) we are now mostly treating residual cellulitis and myositiscan de-escalate to ceftriaxone/flagyl (MSSA and anerobes on Cx, and strongly suspect polymicrobial) - ongoing wound care, anticipate need for vac. SNF vs rehab - after discussion with patient he would prefer a different facility if possible - [facility] Subjective Danielito Diamond Assorter seen at bedside with Inpatient team. He is wearing his loading AFO (brace) in bed, and states he has been wearing it all day. Overnight, he says the IV "knocked him out" and that the oxycodone brings his pain down to a 3 or 4. In discussing potential d/c plans, he shares that he has used a wound vac in the past, on his R big toe (which was later amputated). He shares that upon d/c, he would prefer to do rehab at [facility] or [facility]. Review of Systems Constitutional: + weakness; no fever and no chills Eyes: no eye pain Ear, Nose, Mouth, Throat: no ear pain Respiratory: no cough and no dyspnea Cardiovascular: no chest pain Gastrointestinal: no abdominal pain, no nausea and no vomiting Musculoskeletal: no back pain Integumentary: + lesions (Open wound on right Achilles) Neurologic: no localized weakness Physical Exam Physical Exam: Left BKA. Right ankle with dressing in place, dressing is c/d/i. Constitutional: WD/WN, vitals as above cooperative; no acute distress and not in distress Eyes: + anicteric sclerae; eyes not dysmorphic and no corneal abnormality ENMT: Ears: no hearing impairment and no external ear abnormality Mouth: no oropharynx abnormality, no oral mucosal abnormality and oral mucous membranes not dry Neck: normal visual inspection and trachea midline Respiratory: normal respiratory effort, lungs clear to auscultation normal respiratory effort; no respiratory distress and no labored breathing Ausculta tion: lungs clear to auscultation bilaterally and + diminished lung sounds Cardiovascular: Rate/Rhythm: regular rate and regular rhythm Heart Sounds: normal S1, normal S2 and + murmur Vessels: posterior tibial pulses present (easily dopplerable RLE biphasic), dorsalis pedis pulses present (easily dopplerable RLE triphasic) and radial pulses present; + abnormal peripheral pulses Extremities: normal capillary refill and + AV fistula; no edema Gastrointestinal (Abdomen): Inspection/Auscultation: abdomen normal to inspection and normal bowel sounds Percussion/Palpation: abdomen soft; abdomen nontender Musculoskeletal: Extremities: strength 5/5 throughout and + amputation noted (LLE BKA); no cyanosis and no clubbing Skin: + turgor decreased, + lesion (multiple scabbed ulcers on stump) and + wound (multiple skin wounds to RLE. ankle dressing not removed); no jaundice Neurologic: moves all extremities and awake; no focal motor deficits and not confused Motor/Sensory: no tremor and no asterixis Psychiatric: A+Ox3, euthymic affect Orientation: alert and oriented x 3 Results & Data Vital Signs (Past 12 Hours) Vital Signs Temp Pulse Resp BP Pulse Ox O2 Del Method O2 Flow Rate 10/03/22 07:25 36.8 C 72 18 118/79 100 Nasal Cannula 2 10/02/22 23:26 36.7 C 76 18 124/84 95 Room Air 10/02/22 20:32 36.4 C L 80 18 117/70 95 Room Air
[2022-10-03] MEDS: SEVELAMER HCL 800 MG TABLET PO SCH ×3 (08:14→17:27)
[2022-10-03] MEDS: POLYETHYLENE (MIRALAX) 17 GM PACK PO SCH ×2 (08:14→17:28)
[2022-10-03] MEDS: PANTOprazole 40 MG TAB PO SCH ×2 (08:14→20:34)
[2022-10-03] MEDS: hydrALAZINE HCL 25 MG TAB PO SCH ×3 (08:43→20:34)
--- NOTE | 2022-10-03 10:12 | Nephrology Progress Note ---
Date of Service October 03, 2022 Assessment & Plan (1) End-stage renal disease on hemodialysis: Plan: Outpatient Rx: TTS 4.5hr, 2K 2.5Ca Na 137, HCO3 38, F-250 NR, 14 g needles, Qb500 Qd 800, EDW 116 Kg, heparin 3000 unit bolus + 2500 units q1 hr, L forearm AVF. Orders for HD today entered into the EHR and reviewed with HD RN. UF goal ~1 L. Tolerating treatment well. Qb at goal. Medications appropriately dosed for kidney function. Document daily weight. Check metabolic profile tomorrow AM prior to HD. Renal diet. (2) Anemia: Plan: Chronic, stable. Epogen 59571 units today with HD. Repeat H/H prior to HD Friday. (3) Hypertension: Plan: Maintained on metoprolol succinate 25 mg BID and hydralazine 25 mg TID. Antihypertensives held prior to dialysis. Volume status acceptable. (4) Secondary hyperparathyroidism of renal origin: Plan: Renal diet. Sevelamer 2400 mg QAC. (5) Abscess of right leg: Plan: Ortho and vascular consultations reviewed. Remains on cefepime, dapto, and flagyl. Admission and Anticipated Discharge Date Admission Date: September 30, 2022 Subjective No acute events overnight. Michael was seen and evaluated during hemodialysis today. He is tolerating HD well. He reports feeling tired this AM. No fevers or chills. Denies notable pain. Appetite is good. No fluid retention or edema. Review of Systems Review of Systems: All systems reviewed & are unremarkable except as noted in HPI & below Physical Exam Constitutional: + morbidly obese; no acute distress Eyes: + anicteric sclerae; no corneal abnormality ENMT: Mouth: no oral mucosal abnormality and oral mucous membranes not dry Neck: normal visual inspection and trachea midline Respiratory: normal respiratory effort Auscultation: lungs clear to auscultation bilaterally Cardiovascular: Rate/Rhythm: regular rate Heart Sounds: normal S1, normal S2 and + murmur Extremities: + AV fistula; no edema Musculoskeletal: Extremities: no cyanosis and no clubbing Skin: + turgor decreased; no jaundice Neurologic: Motor/Sensory: no tremor and no asterixis Psychiatric: Orientation: alert and oriented x 3 Results & Data Vital Signs (Past 12 Hours) Vital Signs Temp Pulse Pulse Pulse Resp BP BP 10/03/22 10:00 71 91/57 L 10/03/22 09:30 71 83/54 L 10/03/22 09:21 71 87/54 L 10/03/22 09:08 36.4 C L 72 10/03/22 08:30 10/03/22 07:25 36.8 C 72 18 118/79 10/02/22 23:26 36.7 C 76 18 124/84 Pulse Ox O2 Del Method O2 Flow Rate 10/03/22 10:00 10/03/22 09:30 10/03/22 09:21 10/03/22 09:08 10/03/22 08:30 Room Air 10/03/22 07:25 100 Nasal Cannula 2 10/02/22 23:26 95 Room Air Laboratory Results Laboratory Results - last 24 hr 10/02/22 10/02/22 10/02/22 10:01 12:06 17:08 WBC RBC Hgb Hct MCV MCH MCHC RDW Std Deviation RDW Coeff of Dorcas Plt Count MPV Immature Gran % (Auto) Neut % (Auto) Lymph % (Auto) Rhea % (Auto) Eos % (Auto) Baso % (Auto) Neut # (Auto) Lymph # (Auto) Rhea # (Auto) Eos # (Auto) Baso # (Auto) Immature Gran # (Auto) Absolute Nucleated RBC Nucleated RBC % (auto) Sodium Potassium Chloride Carbon Dioxide Anion Gap BUN Creatinine Est Cr Clr Drug Dosing Est GFR ( Amer) Est GFR (Non-Af Amer) BUN/Creatinine Ratio Glucose POC Glucose 146 H 136 H Estimat Average Glucose 103 Hemoglobin A1c 5.2 Calcium Phosphorus Magnesium 10/02/22 10/03/22 10/03/22 20:53 06:59 06:59 WBC 7.33 RBC 3.03 L Hgb 8.4 L Hct 26.9 L MCV 88.8 MCH 27.7 MCHC 31.2 L RDW Std Deviation 60.7 H RDW Coeff of Dorcas 18.5 H Plt Count 199 MPV 10.9 Immature Gran % (Auto) 0.4 Neut % (Auto) 70.0 Lymph % (Auto) 18.3 Rhea % (Auto) 8.3 Eos % (Auto) 2.5 Baso % (Auto) 0.5 Neut # (Auto) 5.13 Lymph # (Auto) 1.34 Rhea # (Auto) 0.61 H Eos # (Auto) 0.18 Baso # (Auto) 0.04 Immature Gran # (Auto) 0.03 Absolute Nucleated RBC 0.02 Nucleated RBC % (auto) 0.3 Sodium 135 L Potassium 3.9 Chloride 99 Carbon Dioxide 31 Anion Gap 5 BUN 36 H Creatinine 3.55 H D Est Cr Clr Drug Dosing 30.1 Est GFR ( Amer) 20.4 Est GFR (Non-Af Amer) 17.6 BUN/Creatinine Ratio 10.1 Glucose 100 H POC Glucose 123 H Estimat Average Glucose Hemoglobin A1c Calcium 9.0 Phosphorus 2.1 L Magnesium 1.9 10/03/22 08:08 WBC RBC Hgb Hct MCV MCH MCHC RDW Std Deviation RDW Coeff of Dorcas Plt Count MPV Immature Gran % (Auto) Neut % (Auto) Lymph % (Auto) Rhea % (Auto) Eos % (Auto) Baso % (Auto) Neut # (Auto) Lymph # (Auto) Rhea # (Auto) Eos # (Auto) Baso # (Auto) Immature Gran # (Auto) Absolute Nucleated RBC Nucleated RBC % (auto) Sodium Potassium Chloride Carbon Dioxide Anion Gap BUN Creatinine Est Cr Clr Drug Dosing Est GFR ( Amer) Est GFR (Non-Af Amer) BUN/Creatinine Ratio Glucose POC Glucose 97 Estimat Average Glucose Hemoglobin A1c Calcium Phosphorus Magnesium PG Care Time/CCT Total # of Minutes Spent Total Time Spent with Patient: Total time spent is greater than 50% in coordination of care (as documented) at patient's floor/unit and/or counseling patient: Coding Level of Care Code 13332 SUB INP/OBS CARE 3/50MIN Diagnoses End-stage renal disease on hemodialysis N18.6; Z99.2 Anemia D64.9 Anemia type: unspecified type Hypertension I10 Secondary hyperparathyroidism of renal origin N25.81 Abscess of right leg L02.415 (2) Anemia Anemia type: unspecified type Qualified Code(s): D64.9 - Anemia, unspecified
[2022-10-03] MEDS ORDERED: EPOETIN ALFA 20,000 UNITS/ML VIAL IV ONE (10:13)
[2022-10-03] MEDS: METOPROLOL SUCC 25MG EXT REL TAB PO SCH ×2 (12:15→20:34)
[2022-10-03] MEDS: cefTRIAXone SODIUM 2,000 MG in DEXTROSE 5% 50 ML IV SCH (13:23)
[2022-10-03] MEDS: NEPHROCAPS PO SCH (14:43)
--- NOTE | 2022-10-03 18:30 | Billing Data ---
Date of Service October 03, 2022 Coding Level of Care Code 33241 SUB INP/OBS CARE MIN
[2022-10-03] MEDS: ATORVASTATIN 20 MG TAB PO SCH (20:34)
--- NOTE | 2022-10-03 22:43 | Orthopedic Progress Note ---
Date of Service October 03, 2022 Assessment & Plan (1) Abscess of right leg: Plan: Patient seen, evaluated, and treated. Decreased exudate at wound site. Dressing changed. Distal incision packed with 1/4" iodoform. Brad drain intact. 4x4, ABD, kerlix, Ruiz applied. Awaiting culture and sensitivities. Patient may benefit from use of negative wound therapy. Awaiting adequate control of infection prior to application. Discussed importance for compliance with off loading AFO. Reviewed right heel pressure wound. Thank you for allowing me to participate in the care of the Patient. Admission and Anticipated Discharge Date Admission Date: September 30, 2022 Subjective Patient seen at bedside status post day #2 Right posterior compartment incision and drainage. Patient notes decrease in pain. He has no complaints. Patient is wearing his loading AFO. Review of Systems Review of Systems: All systems reviewed & are unremarkable except as noted in Subjective Physical Exam Constitutional: WD/WN, vitals as above cooperative and comfortable Eyes: normal accommodation Respiratory: normal respiratory effort Cardiovascular: Rate/Rhythm: regular rate and regular rhythm Musculoskeletal: Left BKA Skin: Dressing removed. Additional 15ml of purulence expressed from wound site. Sutures intact. Brad drain intact. Iodoform removed. 1/4" iodoform applied to distal incision site. Neurologic: Absent epicritic sensation Psychiatric: Orientation: alert and oriented x 3 Results & Data Vital Signs (Past 12 Hours) Vital Signs Temp Pulse Pulse Pulse Resp BP BP 10/03/22 20:30 36.5 C 75 16 125/75 10/03/22 13:57 36.4 C L 73 18 121/73 10/03/22 12:14 73 115/67 10/03/22 11:24 36.4 C L 69 105/61 10/03/22 11:00 67 106/58 L 10/03/22 10:45 72 109/67 Pulse Ox O2 Del Method O2 Flow Rate 10/03/22 20:30 96 Room Air 10/03/22 13:57 100 Nasal Cannula 2 10/03/22 12:14 10/03/22 11:24 10/03/22 11:00 10/03/22 10:45
[2022-10-03] MEDS: HYDROmorphone INJ 0.5 MG/0.5 ML SYR IV PRN (23:08)
[2022-10-04] MEDS: metroNIDAZOLE 500 MG/100 ML BAG IV SCH ×3 (02:12→17:35)
[2022-10-04] MEDS: oxyCODONE HCL IR 5 MG TAB (IMMEDIATE RELEASE) PO PRN ×3 (03:58→20:56)
[2022-10-04 07:27] LABS: Basophils # (auto) 0.03 K/uL (0-0.2); Basophils % (auto) 0.4 %; Eosinophils # (auto) 0.26 K/uL (0-0.50); Eosinophils % (auto) 3.3 %; Hematocrit (blood only) 31.3 % (42.0-52.0); Hemoglobin 9.7 g/dl (14.0-18.0); Immature Granulocytes # (auto) 0.03 K/uL (0.01-0.20); Immature Granulocytes % (auto) 0.4 %; Lymphocytes # (auto) 1.51 K/uL (1.2-3.4); Lymphocytes % (auto) 19.4 %; Mean Corpuscular Hemoglobin 27.1 pg (25.0-34.0); Mean Corpuscular Volume 87.4 fL (80.0-100.0); Mean Platelet Volume 11.3 fL (9.4-12.4); Monocytes # (auto) 0.57 K/uL (0.11-0.59); Monocytes % (auto) 7.3 %; Neutrophils # (auto) 5.38 K/uL (1.40-6.50); Neutrophils % (auto) 69.2 %; Nucleated RBC # (auto) 0.03 K/uL (0-0.12); Nucleated RBC % (auto) 0.4 %; Platelet Count 235 K/uL (130-400); RDW Coefficient of Variation 18.7 % (11.5-14.5); RDW Standard Deviation 59.3 fL (36.4-46.3); Red Blood Count 3.58 M/uL (4.70-6.10); White Blood Count 7.78 K/ul (4.8-10.8)
[2022-10-04 07:45] LABS: BUN Creatinine Ratio 8.4 (10-20); Calcium 9.3 mg/dl (8.5-10.1); Est GFR (African American) 20.3 ml/min; Est GFR (Non-African American) 17.5 ml/min; Potassium 3.7 mmol/L (3.5-5.1)
[2022-10-04 07:50] LABS: INR 1.8 (0.9-1.1); Magnesium 1.9 mg/dl (1.7-2.4); Phosphorus 1.3 mg/dl (2.5-4.9); Prothrombin Time 18.9 Seconds (9.0-12.0)
[2022-10-04] MEDS: POLYETHYLENE (MIRALAX) 17 GM PACK PO SCH ×2 (08:01→17:45)
--- NOTE | 2022-10-04 08:18 | Medical Student Progress Note ---
Date of Service October 04, 2022 Assessment & Plan (1) Abscess of right leg: (2) Dialysis patient: (3) History of below knee amputation: Laterality: left Qualified Code(s): Z89.512 - Acquired absence of left leg below knee (4) PAD (peripheral artery disease): Plan 1. RLE abscess - improving, acute - in context of L BKA - s/p RLE I&D and debridement by assistant winemaker Dr. German on 10/01 - ~400ml purulence expressed operatively, on day-to-day measurements, progressively less -- still not ready for wound vac. - Cultures & sensitivities: grew mendes-sensitive Staph (MSSA) & bacterioids. - Continue encouraging patient to use off loading AFO (brace) - Pain control: continue oxycodone 2.5mg as needed. Dilauded HSPRN. - Continue flagyl & ceftriaxone for cellulitis & myocitis - on d/c, change to cefdinir and flagyl 2. End-stage renal disease on hemodialysis - managed by nephrology - followed inpatient by nephrology, dialysis T//Sat per home schedule - nephrology reports patient was weak and nauseous during dialysis yesterday. Hemodialysis labs show rising T bili (slightly high ~2), difficulty keeping Hgb up, and dropping BP during dialysis causing dialysis to be stopped a couple hours early yesterday, leaving with positive fluid balance. >10 weight loss since Jun 2022, and no longer making urine. Findings may fit with progressive liver failure. Recent RUQ u/s completed in [place] shows evidence of chronic cholecystitis. - During dialysis on 10/03, patient became progressively hypotensive, requiring early termination of HD. - Nephrology advised work-up for liver dysfunction given elevated INR and labile pressures. Concern for prerenal flow - ?hepatic dz, malnutrition, cardiac - CT abdomen/pelvis revealed liver surface nodularity, some ascites and mild bilateral pleural effusions // hepatology serology pending - TTE from 07/09/22 demonstrated LVEF 35-40%. Mixed systolic and diastolic CHF. - Appreciate nutrition consult - renal diet (low potassium) 3. Supratherapeutic INR - INR hovering around high-1/low-2 range during admission in setting of elevated TBili - Possibly hepatic vs. malnutrition-mediated -- see above - Vitamin K 10mg x 1 given, repeat as needed - Trend INR 4. Anemia - chronic, stable - likely multifactorial ESRD + malnutrition - followed inpatient by nephrology - Labs: Hgb trending down (8.7 on 10/01--> 8.6 on 10/02 -->8.4 today) - per nephrology note, H/H this am, recently competed IV Venofer loading. Hgb 8.7 on 09/24. Mircera 150 mcg q4wk - last dose 09/28. 5. Hypertension Maintained on metoprolol succinate 25 mg BID and hydralazine 25 mg TID. Antihypertensives held prior to dialysis. Volume status acceptable. 6. Secondary hyperparathyroidism of renal origin Renal diet. Sevelamer 2400 mg QAC. 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 Mixed systolic and diastolic CHF. Use IV fluids w/ caution. DM: A1c 4.7 on 06/2022. Per Michaela Choudhury, not managed with insulin. PAD: Per scanned vascular surgery report, had 07/29/22 RLE angiogram w/ right SFA and popliteal angioplasty. He had hospitalization during which he had RLE/Achilles tendon wound debridement. Continue home baby ASA and statin. FEN/GI: Dialysis, renal diet code: full DVT prophylaxis: holding now travon-operatively, revisit 10/05 Admission and Anticipated Discharge Date Admission Date: September 30, 2022 Supervising Attestation I personally examined the patient and verified all dhillon points of history and exam, discussed case, and agree with decision making with Crystal Sierra MS2 Pain under much better control. Appetite improving. Notes that he has not really ate or drank well for probably at least the last month. Vitals noted, in general he is awake pleasant no distress. HEENT normocephalic atraumatic mucous membranes moist. Breathing unlabored no accessory muscle use good effort. Neuro no focal deficits. CBC, basic metabolic panel, surgical cultures noted. Right leg infection with concern on gangrenefortunately not rapidly progressive, fortunately not severe sepsis/septic shock, and now postop with source control (400+ mL of pus removed) we are now mostly treating residual cellulitis and myositisstable on ceftriaxone/flagyl (MSSA and anerobes on Cx, and strongly suspect polymicrobial) - ongoing wound care, anticipate need for vac. SNF vs rehab - after discussion with patient he would prefer a different facility if possible - [facility]. As it relates to his low blood pressures at dialysis, concern was raised about liver diseasewhile his bilirubin and INR somewhat up, imaging of his liver does not look like it is locked down enough to really cause much venous obstruction, he does not really show portal hypertension overtly. I wonder if it is all low circulating fluid volume and low oncotic pressure from malnutrition. His INR was disproportionately up compared to his bilirubin if it was all liver diseaseI have given vitamin K this morning, if the vitamin K corrected his INR, it would in large part rule out much functional liver disease, and make it much more likely this is all malnutrition. If his INR does not correct, then certainly both could be at play. Subjective Danielito Patient Access Representative seen at bedside. Status post operative day #3, R posterior compartment incision and drainage. Patient is wearing his loading AFO, states he has it on at all times, and it is only removed by Dr. German when it's being assessed. He states that last night minimal fluid was removed from the wound. He notes much better pain control, saying this morning's breakfast was the first time he ate and could enjoy it. Overnight, he received IV Dilauded and slept from 10 pm to 2 am, which is an improvement from his typical 3 hrs/night. In discussing yesterday's hemodialysis experience, he shares that he was experiencing uncomfortable leg pain, and low BP, so he completed 2 hours instead of 4 hours. He shares that when his L BKA occurred at 52 y/o, he was sitting in a wheelchair and hemorrhaged a large pool of blood. He states that 3 months ago, his Hgb was 12. Two months ago, he remembers feeling sick, [facility] employees "talking to [him] and [he] couldn't hear them", being sent to [facility], and life flighted to [facility] where he had an EGD and colonoscopy that found ulcers. He does not want blood thinners. During this afternoon's visit by the Inpatient team, patient reports that at [facility], he was told he has fatty liver but to not worry about it. He shares that his grandfather of this, so hearing that he has fatty liver as well worries him. We discussed his malnutrition, and he states he has not been eating or drinking well this past month d/t not feeling well. Physical Exam Physical Exam: General: No acute distress, awake, pleasant, communicative HEENT: normocephalic, atraumatic, mucous membranes moist. PERRLA. Normal conjunctiva, anicteric sclera. Oropharynx normal. Respiratory: Breathing unlabored, no accessory muscle use, good effort. Normal respiratory effort. Cardiovascular: RRR without murmurs, gallops, or rubs. GI: Soft abdomen with normal bowel sounds heard on auscultation. Nontender x4 quadrants Skin: Mild erythematous wound with whitish discharge at left lower quadrant of abdomen, extending inferiorly to L inguinal fold. Neuro: Alert and oriented x3. Results & Data Vital Signs (Past 12 Hours) Vital Signs Temp Pulse Resp BP Pulse Ox O2 Del Method 10/04/22 08:00 36.6 C 70 16 111/74 97 Room Air 10/03/22 20:15 Room Air 10/03/22 20:30 36.5 C 75 16 125/75 96 Room Air Laboratory Results Laboratory Results - last 24 hr 10/02/22 10/02/22 10/02/22 10:01 12:06 17:08 WBC RBC Hgb Hct MCV MCH MCHC RDW Std Deviation RDW Coeff of Docras Plt Count MPV Immature Gran % (Auto) Neut % (Auto) Lymph % (Auto) [place] % (Auto) Eos % (Auto) Baso % (Auto) Neut # (Auto) Lymph # (Auto) [place] # (Auto) Eos # (Auto) Baso # (Auto) Immature Gran # (Auto) Absolute Nucleated RBC Nucleated RBC % (auto) Sodium Potassium Chloride Carbon Dioxide Anion Gap BUN Creatinine Est Cr Clr Drug Dosing Est GFR ( Amer) Est GFR (Non-Af Amer) BUN/Creatinine Ratio Glucose POC Glucose 146 H 136 H Estimat Average Glucose 103 Hemoglobin A1c 5.2 Calcium Phosphorus Magnesium 10/02/22 10/03/22 10/03/22 20:53 06:59 06:59 WBC 7.33 RBC 3.03 L Hgb 8.4 L Hct 26.9 L MCV 88.8 MCH 27.7 MCHC 31.2 L RDW Std Deviation 60.7 H RDW Coeff of Dorcas 18.5 H Plt Count 199 MPV 10.9 Immature Gran % (Auto) 0.4 Neut % (Auto) 70.0 Lymph % (Auto) 18.3 [place] % (Auto) 8.3 Eos % (Auto) 2.5 Baso % (Auto) 0.5 Neut # (Auto) 5.13 Lymph # (Auto) 1.34 [place] # (Auto) 0.61 H Eos # (Auto) 0.18 Baso # (Auto) 0.04 Immature Gran # (Auto) 0.03 Absolute Nucleated RBC 0.02 Nucleated RBC % (auto) 0.3 Sodium 135 L Potassium 3.9 Chloride 99 Carbon Dioxide 31 Anion Gap 5 BUN 36 H Creatinine 3.55 H D Est Cr Clr Drug Dosing 30.1 Est GFR ( Amer) 20.4 Est GFR (Non-Af Amer) 17.6 BUN/Creatinine Ratio 10.1 Glucose 100 H POC Glucose 123 H Estimat Average Glucose Hemoglobin A1c Calcium 9.0 Phosphorus 2.1 L Magnesium 1.9 10/03/22 08:08 WBC RBC Hgb Hct MCV MCH MCHC RDW Std Deviation RDW Coeff of Dorcas Plt Count MPV Immature Gran % (Auto) Neut % (Auto) Lymph % (Auto) [place] % (Auto) Eos % (Auto) Baso % (Auto) Neut # (Auto) Lymph # (Auto) [place] # (Auto) Eos # (Auto) Baso # (Auto) Immature Gran # (Auto) Absolute Nucleated RBC Nucleated RBC % (auto) Sodium Potassium Chloride Carbon Dioxide Anion Gap BUN Creatinine Est Cr Clr Drug Dosing Est GFR ( Amer) Est GFR (Non-Af Amer) BUN/Creatinine Ratio Glucose POC Glucose 97 Estimat Average Glucose Hemoglobin A1c Calcium Phosphorus Magnesium Vital Signs 09/30/22 15:17 09/30/22 15:18 09/30/22 15:20 09/30/22 15:30 09/30/22 15:35 09/30/22 15:40 09/30/22 15:50 09/30/22 15:52 09/30/22 15:53 09/30/22 16:00 09/30/22 16:10 09/30/22 16:20 09/30/22 16:49 09/30/22 16:49 09/30/22 16:50 09/30/22 17:00 09/30/22 17:00 09/30/22 17:10 09/30/22 17:20 09/30/22 17:30 09/30/22 17:40 09/30/22 17:50 09/30/22 18:00 09/30/22 18:10 09/30/22 18:20 09/30/22 18:30 09/30/22 18:40 09/30/22 18:43 09/30/22 18:43 09/30/22 18:50 09/30/22 19:00 09/30/22 19:00 09/30/22 19:10 09/30/22 19:20 09/30/22 19:30 09/30/22 19:30 09/30/22 19:40 09/30/22 19:50 09/30/22 20:00 09/30/22 20:00 09/30/22 20:10 09/30/22 20:20 09/30/22 20:30 09/30/22 20:31 09/30/22 20:31 09/30/22 20:40 09/30/22 20:50 09/30/22 21:00 09/30/22 21:00 09/30/22 21:10 09/30/22 21:45 09/30/22 21:45 10/01/22 07:08 10/01/22 09:47 10/01/22 10:00 10/01/22 10:30 10/01/22 11:00 10/01/22 11:30 10/01/22 12:00 10/01/22 12:30 10/01/22 13:00 10/01/22 13:30 10/01/22 13:46 10/01/22 13:50 10/01/22 15:16 10/01/22 16:34 10/01/22 18:02 10/01/22 19:47 10/01/22 21:05 10/01/22 22:13 10/01/22 22:20 10/01/22 22:30 10/01/22 22:40 10/01/22 22:50 10/01/22 23:03 10/01/22 23:14 10/01/22 23:26 10/02/22 00:08 10/02/22 00:54 10/02/22 01:54 10/02/22 02:56 10/02/22 05:43 10/02/22 07:25 10/02/22 11:46 10/02/22 14:46 10/02/22 19:03 10/02/22 20:32 10/02/22 23:26 10/03/22 07:25 10/03/22 09:08 10/03/22 09:21 10/03/22 09:30 10/03/22 10:00 10/03/22 10:30 10/03/22 10:45 10/03/22 11:00 10/03/22 11:24 10/03/22 12:14 10/03/22 13:28 10/03/22 13:57 10/03/22 20:30 10/04/22 08:00 10/04/22 10:02 10/04/22 10:58 10/04/22 12:23 10/04/22 12:56 10/04/22 14:10 Weight 120.4 kg 120.4 kg 116.5 kg 116.5 kg 116.5 kg 116.5 kg 116.5 kg 116.5 kg 11 7 kg 117 kg 117 kg 117 kg Height 6 ft 2 in 6 ft 2 in 6 f t 2 in 6 ft 2 in 6 ft 2 in 6 ft 2 in 6 ft 2 in BMI 34.0 34.0 33.0 33.0 33.0 Temp 97.9 F 97.5 F L 97.7 F 97.9 F 97.7 F 97.7 F 97.7 F 97.5 F L 98.4 F 97.9 F 97.3 F L 97.7 F 97.7 F 97.9 F 97.9 F 97.9 F 97.9 F 97.9 F 98.2 F 97.9 F 97.5 F L 98. 1 F 98.2 F 97.5 F L 97.5 F L 97.5 F L 97.7 F 97.9 F 97.7 F 97.7 F 97.5 F L Temp Source Oral Oral Oral Oral Oral Oral Oral Oral Temporal Artery Scan Temporal Artery Scan Oral Oral Oral Oral Oral Oral Oral Oral Oral Oral Oral Oral Oral Oral Oral Oral Oral Oral Oral Oral Oral Pulse 84 87 82 86 80 79 81 81 78 82 83 79 80 85 84 86 85 8 2 85 87 86 87 85 81 85 86 88 82 91 H 83 83 93 H 88 90 90 92 H 87 90 90 88 71 77 74 74 74 70 77 80 79 80 77 84 90 87 81 79 81 83 81 83 77 85 85 85 86 83 79 81 80 76 72 72 71 71 71 72 72 67 69 73 73 75 70 66 73 69 71 BP 122/86 133/77 139/81 114/71 137/85 171/92 H 195/99 H 153/76 H 157/101 H 157/100 H 135/87 117/71 103/60 133/ 76 13 1/78 125/97 134/78 133/76 128/68 140/86 129/74 134/86 135/87 98/66 L 104/62 108/71 136/77 123/70 134/73 145/74 H 162/84 H 156/97 H 153/93 H 149/84 H 135/81 135/81 115/73 96/64 L 114/72 117/70 124/84 118/79 87/54 L 83/54 L 91/ 57 L 88/54 L 109/67 106/58 L 105/61 115/67 121/73 125/75 111/74 130/85 122/8 0 117/77 134/88 Position Lying Semi-fowlers Lying Lying Lying Lying Lying Lying Lying Lying Lying Lying Lying Lyi ng Lying Lying Lying Lying Lying Lying Lying Lying Lying Lying Lying Lying L vern Lying Lying Lying Lying Lying Lying Lying Lying Lying Lying Lying Lying Lying Semi- fowlers Lying Lying Lying Lying Lying Lying Respiration 23 18 23 25 H 24 19 20 12 14 19 23 12 11 L 21 28 H 18 18 20 20 27 H 24 30 H 21 19 33 H 22 17 21 20 14 19 32 H 25 H 25 H 22 25 H 24 28 H 24 16 18 18 18 18 23 18 16 19 22 21 18 18 18 18 18 18 18 18 18 18 18 18 18 16 16 16 18 18 Pulse Oximetry (%) 98 94 92 92 97 94 94 95 93 96 98 96 96 95 97 98 95 94 99 95 95 97 87 L 92 94 96 99 96 97 99 90 94 98 100 98 99 98 98 100 99 100 96 94 92 98 95 95 95 100 10 0 96 97 95 97 98 100
[2022-10-04] MEDS: hydrALAZINE HCL 25 MG TAB PO SCH ×3 (08:46→20:57)
[2022-10-04] MEDS: NEPHROCAPS PO SCH (08:47)
[2022-10-04] MEDS: SEVELAMER HCL 800 MG TABLET PO SCH ×3 (08:47→17:45)
[2022-10-04] MEDS: PANTOprazole 40 MG TAB PO SCH ×2 (08:47→20:56)
[2022-10-04] MEDS ORDERED: PHYTONADIONE 10 MG in DEXTROSE 5% 50 ML IV ONE (09:45)
--- NOTE | 2022-10-04 10:43 | Nephrology Progress Note ---
Date of Service October 04, 2022 Assessment & Plan (1) End-stage renal disease on hemodialysis: Plan: Outpatient Rx: TTS 4.5hr, 2K 2.5Ca Na 137, HCO3 38, F-250 NR, 14 g needles, Qb500 Qd 800, EDW 116 Kg, heparin 3000 unit bolus + 2500 units q1 hr, L forearm AVF. Treatment yesterday stopped 2 hours early but adequate clearance and UF. Volume status acceptable. Electrolytes controlled. Next HD will be planned for tomorrow. If BP remains low, midodrine to be provided with HD. CT and serologic hepatitis profile for chronic liver disease pending. Medications appropriately dosed for kidney function. Document daily weight. Check metabolic profile tomorrow AM prior to HD. Renal diet. (2) Anemia: Plan: Chronic, stable. Epogen 02085 units with HD yesterday. Repeat H/H prior to HD Friday. (3) Hypertension: Plan: Maintained on metoprolol succinate 25 mg BID and hydralazine 25 mg TID. Antihypertensives held prior to dialysis. Volume status acceptable. (4) Secondary hyperparathyroidism of renal origin: Plan: Renal diet. Sevelamer 2400 mg QAC. (5) Abscess of right leg: Plan: POD #3 s/p R LE posterior compartment I&D. MSSA and anearobes on wound culture. Persistent purulent drainage reported. Remains on ceftriaxone and Flagyl. Admission and Anticipated Discharge Date Admission Date: September 30, 2022 Subjective No acute events overnight. Danielito was resting comfortably in bed this AM. He reports improved pain control. No fevers or chills. Appetite remains poor. No GI symptoms. Stopped HD 2 hours early yesterday. Danielito reports pain and generally feeling uncomfortable as reasons that he did not tolerate treatment. Intradialytic hypotension noted but he denies any symptoms in that regard and hypotension with HD has been chronic. I discussed his recent history with Dr. 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 RUQ US was recently completed as an outpatient in [place] for subtle laboratory and physical findings suggestive of progressive liver disease. Danielito has had progressive hypotension with HD. US reportedly demonstrated some evidence of chronic cholecystitis. Danielito denies any abdominal pain or discomfort. He admits that his appetite has been poor but improving. I discussed concerns regarding progressive weight loss and weakness with general findings of failure to thrive with Dr. Hamilton. Review of Systems Review of Systems: All systems reviewed & are unremarkable except as noted in HPI & below Physical Exam Constitutional: + morbidly obese; no acute distress Eyes: + anicteric sclerae; no corneal abnormality ENMT: Mouth: no oral mucosal abnormality and oral mucous membranes not dry Neck: normal visual inspection and trachea midline Respiratory: normal respiratory effort Auscultation: lungs clear to auscultation bilaterally and + diminished lung sounds Cardiovascular: Rate/Rhythm: regular rate Heart Sounds: normal S1, normal S2 and + murmur Extremities: + AV fistula; no edema Musculoskeletal: Extremities: no cyanosis and no clubbing Skin: + turgor decreased and + lesion (multiple scabbed ulcers on stump); no jaundice Neurologic: Motor/Sensory: no tremor and no asterixis Psychiatric: Orientation: alert and oriented x 3 Results & Data Vital Signs (Past 12 Hours) Vital Signs Temp Pulse Resp BP Pulse Ox O2 Del Method 10/04/22 10:02 36.5 C 66 16 130/85 95 Room Air 10/04/22 07:20 Room Air 10/04/22 08:00 36.6 C 70 16 111/74 97 Room Air Laboratory Results Laboratory Results - last 24 hr 10/03/22 10/03/22 10/03/22 11:57 17:06 20:30 WBC RBC Hgb Hct MCV MCH MCHC RDW Std Deviation RDW Coeff of Dorcas Plt Count MPV Immature Gran % (Auto) Neut % (Auto) Lymph % (Auto) [place] % (Auto) Eos % (Auto) Baso % (Auto) Neut # (Auto) Lymph # (Auto) [place] # (Auto) Eos # (Auto) Baso # (Auto) Immature Gran # (Auto) Absolute Nucleated RBC Nucleated RBC % (auto) PT INR Sodium Potassium Chloride Carbon Dioxide Anion Gap BUN Creatinine Est Cr Clr Drug Dosing Est GFR ( Amer) Est GFR (Non-Af Amer) BUN/Creatinine Ratio Glucose POC Glucose 103 H 110 H 117 H Calcium Phosphorus Magnesium Hepatitis A IgM Ab Hep Bs Antigen Hep Bs Ag Confirmation Hep B Core IgM Ab Hepatitis C Ab (EIA) Hep C Ab Signal/Cutoff 10/04/22 10/04/22 10/04/22 06:54 06:54 06:54 WBC 7.78 RBC 3.58 L Hgb 9.7 L Hct 31.3 L MCV 87.4 MCH 27.1 MCHC 31.0 L RDW Std Deviation 59.3 H RDW Coeff of Dorcas 18.7 H Plt Count 235 MPV 11.3 Immature Gran % (Auto) 0.4 Neut % (Auto) 69.2 Lymph % (Auto) 19.4 [place] % (Auto) 7.3 Eos % (Auto) 3.3 Baso % (Auto) 0.4 Neut # (Auto) 5.38 Lymph # (Auto) 1.51 [place] # (Auto) 0.57 Eos # (Auto) 0.26 Baso # (Auto) 0.03 Immature Gran # (Auto) 0.03 Absolute Nucleated RBC 0.03 Nucleated RBC % (auto) 0.4 PT 18.9 H INR 1.8 H Sodium 136 Potassium 3.7 Chloride 99 Carbon Dioxide 29 Anion Gap 8 BUN 30 H Creatinine 3.56 H Est Cr Clr Drug Dosing 30.0 Est GFR ( Amer) 20.3 Est GFR (Non-Af Amer) 17.5 BUN/Creatinine Ratio 8.4 L Glucose 96 POC Glucose Calcium 9.3 Phosphorus 1.3 L* Magnesium 1.9 Hepatitis A IgM Ab Hep Bs Antigen Hep Bs Ag Confirmation Hep B Core IgM Ab Hepatitis C Ab (EIA) Hep C Ab Signal/Cutoff 10/04/22 10/04/22 06:54 07:59 WBC RBC Hgb Hct MCV MCH MCHC RDW Std Deviation RDW Coeff of Dorcas Plt Count MPV Immature Gran % (Auto) Neut % (Auto) Lymph % (Auto) [place] % (Auto) Eos % (Auto) Baso % (Auto) Neut # (Auto) Lymph # (Auto) [place] # (Auto) Eos # (Auto) Baso # (Auto) Immature Gran # (Auto) Absolute Nucleated RBC Nucleated RBC % (auto) PT INR Sodium Potassium Chloride Carbon Dioxide Anion Gap BUN Creatinine Est Cr Clr Drug Dosing Est GFR ( Amer) Est GFR (Non-Af Amer) BUN/Creatinine Ratio Glucose POC Glucose 86 Calcium Phosphorus Magnesium Hepatitis A IgM Ab Pending Hep Bs Antigen Pending Hep Bs Ag Confirmation Pending Hep B Core IgM Ab Pending Hepatitis C Ab (EIA) Pending Hep C Ab Signal/Cutoff Pending PG Care Time/CCT Total # of Minutes Spent Total Time Spent with Patient: Total time spent is greater than 50% in coordination of care (as documented) at patient's floor/unit and/or counseling patient: Coding Level of Care Code 95038 SUB INP/OBS CARE MIN Diagnoses End-stage renal disease on hemodialysis N18.6; Z99.2 Anemia D64.9 Anemia type: unspecified type Hypertension I10 Secondary hyperparathyroidism of renal origin N25.81 Abscess of right leg L02.415 (2) Anemia Anemia type: unspecified type Qualified Code(s): D64.9 - Anemia, unspecified
[2022-10-04] MEDS ORDERED: OPTIRAY 350 100ml IV ONE (12:22)
[2022-10-04] MEDS: METOPROLOL SUCC 25MG EXT REL TAB PO SCH ×2 (12:56→20:57)
[2022-10-04] MEDS: cefTRIAXone SODIUM 2,000 MG in DEXTROSE 5% 50 ML IV SCH (13:23)
--- NOTE | 2022-10-04 15:50 | CT Scan Report ---
CT OF THE ABDOMEN AND PELVIS WITH CONTRAST CLINICAL HISTORY: weight loss, liver disease - eval liver/?adenopathy COMPARISON STUDY: CT of the abdomen and pelvis July 19, 2022. TECHNIQUE: Following IV administration of 87 mL of Optiray, axial images of the abdomen and pelvis we re obtained from the lung bases to the proximal femurs. Images were reviewed in the axial, sagittal, and coronal planes. IV contrast was administered without complication. Automated exposure control wa s utilized for the study. A dose lowering technique was utilized adhering to the principles of ALARA . CT DOSE: 1792.17 mGy.cm FINDINGS: Moderate bilateral pleural effusions have developed since prior CT of July 19, 2022. Th ere is anasarca. A small amount of abdominal ascites is present. Evidence for mild interstitial pulmo nary edema within the lower lungs. Subpleural opacities within lungs are also present. There is no pn eumatosis, free air or portal venous gas. Extensive vascular calcification is present. Small gallston es are noted. No convincing evidence for acute cholecystitis. There is mild nodularity of the liver s urface. No hepatic lesions are identified. There is mild splenomegaly. Note is made of hypodensity wi thin the anterior superior aspect of the spleen with mild volume loss. This was not clearly evident o n prior CT. Adrenal glands and pancreas are unremarkable. Marked renal atrophy is noted. There is no hydronephrosis. Mildly enlarged paraesophageal lymph nodes are unchanged since prior CT. Prominent bi lateral iliac chain and inguinal lymph nodes are also similar to prior CT. Many of these are partiall y calcified. These are probably benign. There is no evidence for a bowel obstruction. Diffuse skeleta l sclerosis is likely related to chronic renal disease. IMPRESSION: 1. Mild nodularity of the liver surface. This raises the possibility of cirrhosis. No hepatic lesions identified. 2. Mild splenomegaly. Suspected infarct within the anterior superior aspect of the spleen which is ne w since CT of July 19, 2020 but likely subacute to chronic given volume loss. 3. Moderate sized bilateral pleural effusions, mild interstitial pulmonary edema, anasarca and a smal l amount of ascites. 4. No bowel obstruction. No bowel wall thickening. 5. No change in multiple mildly enlarged paraesophageal, iliac chain and inguinal lymph nodes since C T of July 19, 2022. These are probably benign. 6. Extensive vascular calcification. 7. Cholelithiasis. ACT 112: Negative or not required by law. Electronically signed by: Andres Overton M.D. 10/04/2022 3:48 PM
[2022-10-04] MEDS ORDERED: SODIUM PHOSPHATE 3 MMOL/1 ML INFUSION IV STA (17:02)
[2022-10-04] MEDS ORDERED: SODIUM PHOSPHATE 9 MMOL in SODIUM CHLORIDE 0.9% 250 ML IV ONE (17:30)
--- NOTE | 2022-10-04 19:01 | Billing Data ---
Date of Service October 04, 2022 Coding Level of Care Code 02578 SUB INP/OBS CARE MIN
[2022-10-04] MEDS: ATORVASTATIN 20 MG TAB PO SCH (20:57)
--- NOTE | 2022-10-04 21:44 | Orthopedic Progress Note ---
Date of Service October 04, 2022 Assessment & Plan (1) Abscess of right leg: Plan: Patient seen, evaluated, and treated. Decreased exudate at wound site. Reviewed culture and sensitivities. Patient may benefit from use of negative wound therapy. He is familiar with w ound vac and has utilized in past. Awaiting adequate control of infection prior to application. Discussed importance for compliance with off loading AFO. Reviewed right heel pressure wound. Thank you for allowing me to participate in the care of the Patient. Admission and Anticipated Discharge Date Admission Date: September 30, 2022 Subjective Patient seen at bedside resting comfortably. His AFO is on and he notes compliant with use. Review of Systems Review of Systems: All systems reviewed & are unremarkable except as noted in HPI & below Physical Exam Constitutional: WD/WN, vitals as above cooperative and comfortable Eyes: normal accommodation Respiratory: normal respiratory effort Cardiovascular: Rate/Rhythm: regular rate and regular rhythm Psychiatric: Orientation: alert and oriented x 3 Results & Data Vital Signs (Past 12 Hours) Vital Signs Temp Pulse Resp BP Pulse Ox O2 Del Method O2 Flow Rate 10/04/22 20:55 36.5 C 72 16 111/76 98 Room Air 10/04/22 14:10 36.4 C L 71 18 134/88 100 Room Air 10/04/22 12:56 69 117/77 98 Nasal Cannula 2 10/04/22 10:58 36.5 C 73 18 122/80 97 Room Air 10/04/22 10:02 36.5 C 66 16 130/85 95 Room Air
[2022-10-04] MEDS: HYDROmorphone INJ 0.5 MG/0.5 ML SYR IV PRN (23:27)
[2022-10-05] MEDS: metroNIDAZOLE 500 MG/100 ML BAG IV SCH ×3 (02:06→18:05)
[2022-10-05] MEDS: oxyCODONE HCL IR 5 MG TAB (IMMEDIATE RELEASE) PO PRN ×2 (06:26→14:37)
[2022-10-05 06:28] LABS: Basophils # (auto) 0.05 K/uL (0-0.2); Basophils % (auto) 0.8 %; Eosinophils % (auto) 4.5 %; Hematocrit (blood only) 28.4 % (42.0-52.0); Hemoglobin 8.8 g/dl (14.0-18.0); Immature Granulocytes # (auto) 0.03 K/uL (0.01-0.20); Immature Granulocytes % (auto) 0.5 %; Lymphocytes # (auto) 1.21 K/uL (1.2-3.4); Lymphocytes % (auto) 18.3 %; Mean Corpuscular Hemoglobin 26.8 pg (25.0-34.0); Mean Corpuscular Volume 86.6 fL (80.0-100.0); Mean Platelet Volume 11.1 fL (9.4-12.4); Monocytes % (auto) 7.5 %; Neutrophils # (auto) 4.54 K/uL (1.40-6.50); Neutrophils % (auto) 68.4 %; Nucleated RBC # (auto) 0.02 K/uL (0-0.12); Nucleated RBC % (auto) 0.3 %; Platelet Count 237 K/uL (130-400); RDW Standard Deviation 60.3 fL (36.4-46.3); Red Blood Count 3.28 M/uL (4.70-6.10); White Blood Count 6.63 K/ul (4.8-10.8)
[2022-10-05 06:32] LABS: BUN Creatinine Ratio 8.7 (10-20); Bilirubin,Total 1.5 mg/dl (0.2-1.0); Calcium 8.9 mg/dl (8.5-10.1); Creatinine Clr Calc Pharmacy 26.4 ml/min; Est GFR (African American) 16.9 ml/min; Est GFR (Non-African American) 14.6 ml/min; INR 1.3 (0.9-1.1); Magnesium 1.9 mg/dl (1.7-2.4); Phosphorus 1.9 mg/dl (2.5-4.9); Prothrombin Time 13.9 Seconds (9.0-12.0)
[2022-10-05] MEDS ORDERED: HEPARIN SOD (PORCINE) 1000 UNIT/ML IV ONE (07:00)
--- NOTE | 2022-10-05 07:06 | Hospitalist Progress Note ---
Date of Service October 05, 2022 Assessment & Plan (1) Abscess of right leg: Plan: RLE abscess -- s/p I&D by Dr. German on 10/01 - Drainage: ~400ml purulent fluid expressed intraoperatively, improving on day-to-day measurements though still draining --> Once minimal drainage, proceed with wound vac - Cultures & sensitivities: growing mendes-sensitive Staph (MSSA) & Bacteroides - Continue encouraging patient to use off loading AFO (brace) - Pain control: continue oxycodone 2.5mg as needed. Dilauded HSPRN. - Continue CFTX + Flagyl until discharge, then transition to cefdinir/metro - Appreciate PT, OT ESRD on HD - followed inpatient by nephrology, home dialysis continued here @ //Sat - Nephrology following, appreciate insight/recommendations -- see HoTN below - Continue renal diet, sevelamer Supratherapeutic INR - INR hovering around upper-1 range during admission in setting of elevated TBili - Suspect malnutrition as major culprit given INR improvement with single 10mg dose of Vitamin K - Trend INR Normocytic Anemia- chronic, stable - multifactorial between ESRD + malnutrition - stable on daily checks between 8-9 - appreciate nephrology assistance with Venofer and Mircera (Epo) q4wk HoTN -- in setting of known malnutrition - Concern for multiple HoTN episodes during dialysis sessions while here - In setting of known ESRD and reports of poor PO intake at home, suspect malnutrition related process as major courtesy driver. LV dysfunction and hepatic dysfunction possibly contributing to some degree. - Possibly hepatic contribution -- CTAP demonstrated hepatic nodularity with small ascites and pleural effusions -- elevated TBili noted, same with INR (though INR improved with single dose of Vitamin K) and mild depression in albumin. Await hepatitis serologies. Lower suspicion this is major courtesy driver, but may be contributing - Appreciate RD consultation for nutritional assessment and recommendations - Hold antiHTNs prior to dilaysis -- will schedule for resumption on 10/06 Protein-Calorie Malnutrition - In setting of multiple eblia-rr-mpbpirh conditions over >months - Appreciate RD consult. Will provide counselling while here, too. Hypertension - Maintained on metoprolol succinate 25 mg BID and hydralazine 25 mg TID - Hold antiHTNs prior to dialysis Secondary hyperparathyroidism of renal origin Renal diet. Sevelamer 2400 mg QAC. 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 Mixed systolic and diastolic CHF. Use IV fluids w/ caution. DM: A1c 4.7 on 06/2022. Per Michaela Choudhury, not managed with insulin. PAD: Per scanned vascular surgery report, had 07/29/22 RLE angiogram w/ right SFA and popliteal angioplasty. He had hospitalization during which he had RLE/Achilles tendon wound debridement. Continue home baby ASA and statin. FEN/GI: Dialysis, renal diet Code: full DVT prophylaxis: holding now travon-operatively, revisit 10/05 Admission and Anticipated Discharge Date Admission Date: September 30, 2022 Supervising Physician Co-Signing Physician Notes I personally examined the patient and verified all dhillon points of history and exam, discussed case, and agree with decision making with Dr. Honeycutt Some pain after dressing change, but notes that it is getting under better control with pain medicinesdoes not want anything more done at this time. Initially seen at dialysis, he was sleepingdiscussed with dialysis nurse, blood pressures were holding okay. Allowed patient to sleep. On revisitit was after dressing changes whenever he was back in his room. Vitals noted, in general he is awake pleasant no distress. HEENT normocephalic atraumatic mucous membranes moist. Breathing unlabored no accessory muscle use good effort. Neuro no focal deficits. Right calf overall soft, slightly more firmness than on previous exams outside of the initial day that I saw him preopbut nothing that is tender no crepitus no clear fluctuance, no erythemanonspecific just very slightly firmer. CBC, basic metabolic panel, surgical cultures noted. Right leg infection with concern on gangrenefortunately not rapidly progressive, fortunately not severe sepsis/septic shock, and now postop with source control (400+ mL of pus removed) we are now mostly treating residual cellulitis and myositisstable on ceftriaxone/flagyl (MSSA and anerobes on Cx, and strongly suspect polymicrobial) - ongoing wound care, anticipate need for vac once drainage stops. SNF vs rehab - after previous discussion with patient he would prefer a different facility if possible - [facility]. As it relates to his low blood pressures at dialysis, concern was raised about liver diseaseI think there is probably evidence to support that is largely malnutrition, but probably some degree of underlying liver disease. Hepatitis serologies are pendingliver disease is probably however mostly on the basis of dysmetabolic and longstanding fatty liver for risk factors that have now passed. As it relates to malnutritionwill educate patient on calorie intake, dietitian consulted. Subjective NAEO. Dialysis this morning- went well. Review of Systems Review of Systems: as per HPI Physical Exam Physical Exam: General: Tired and pale appearing 62-year old male who is alert, oriented, and is in NAD. HEENT: NCAT. - Eyes - Sclera are white, anicteric, and without injection. - Mouth - MMM - Neck - supple, no appreciable JVD Cardiac: Normal rate and regular rhythm; S1 and S2 present with no murmur detected Pulmonary: Good respiratory effort with symmetric expansion of the chest. No use of accessory muscles. Lungs were CTAB Abdominal: Normoactive bowel sounds. Abdomen was soft, nondistended, and non- tender to palpation. Extremities: Upper and lower extremities are warm and well perfused. RLE wrapped, c/d/i, good peripheral perfusion cap refill < 2 sec Results & Data Results & Data Vital Signs (Past 12 Hours) Vital Signs Temp Pulse Pulse Resp BP Pulse Ox O2 Del Method 10/04/22 23:35 36.6 C 67 20 116/76 98 Room Air 10/04/22 20:55 36.5 C 72 16 111/76 98 Room Air Resident Activity Tracking Resident Involvement: Resident Care Provided Care Provided: Adult Hospital Medicine
[2022-10-05] MEDS: POLYETHYLENE (MIRALAX) 17 GM PACK PO SCH ×2 (08:07→16:23)
[2022-10-05] MEDS: SEVELAMER HCL 800 MG TABLET PO SCH (08:08)
[2022-10-05] MEDS: NEPHROCAPS PO SCH ×2 (08:08→13:23)
[2022-10-05] MEDS: PANTOprazole 40 MG TAB PO SCH ×2 (08:08→20:15)
--- NOTE | 2022-10-05 09:11 | Nephrology Progress Note ---
Date of Service October 05, 2022 Assessment & Plan (1) End-stage renal disease on hemodialysis: Plan: * Outpatient HD Rx: TTS at [facility] [place] 4.5hr, 2K 2.5Ca Na 137, HCO3 38, F- 250 NR, 14 g needles, Qb500 Qd 800, EDW 116 Kg, heparin 3000 unit bolus + 2500 units q1 hr, L forearm AVF * HD today as per outpatient orders - HD RN notified (2) Anemia: Plan: * Hgb 8.8 this am * Epogen 93595 units administered w/ HD 10/03/22 (3) Hypertension: Plan: * On metoprolol succinate 25 mg BID and hydralazine 25 mg TID * Antihypertensives will be held prior to dialysis (4) Secondary hyperparathyroidism of renal origin: Plan: * PO4 only 1.5. Will hold Sevelamer (5) Abscess of right leg: Plan: * I&D R calf abscess 10/01/22. Culture + for MSSA * On ceftriaxone and Flagyl Admission and Anticipated Discharge Date Admission Date: September 30, 2022 Subjective Mr. Quinonez was evaluated in his hospital room this morning. He c/o mild discomfort from his R calf abscess. He denied fever or abdominal discomfort. Mr. Quinonez reports that he is tolerating his diet without N/V. Review of Systems Constitutional: no fever Eyes: no problem reported Ear, Nose, Mouth, Throat: no problem reported Respiratory: no dyspnea Cardiovascular: no chest pain and no palpitations Gastrointestinal: no abdominal pain, no nausea, no vomiting and no diarrhea/loose stools Physical Exam Constitutional: not in distress and not overweight Eyes: PERRL, conjunctivae normal, anicteric sclerae ENMT: external ear and nose normal, oropharynx normal Neck: trachea midline, no thyromegaly Respiratory: normal respiratory effort, lungs clear to auscultation Cardiovascular: RRR, no murmur, no edema Extremities: + AV fistula (+ bruit) Gastrointestinal (Abdomen): normal bowel sounds, soft, nontender, no hepatosplenomegaly Neurologic: no focal motor deficits and not confused Speech / Cognition: normal speech Results & Data Vital Signs (Past 12 Hours) Vital Signs Temp Pulse Pulse Resp BP Pulse Ox O2 Del Method 10/05/22 08:12 36.5 C 74 16 126/76 98 Room Air 10/04/22 23:35 36.6 C 67 20 116/76 98 Room Air Laboratory Results Laboratory Tests 09/30/22 10/05/22 10/05/22 15:29 05:32 05:32 WBC 6.63 Hgb 8.8 L Hct 28.4 L Plt Count 237 Sodium 134 L Potassium 4.0 Chloride 99 Carbon Dioxide 27 BUN 36 H Creatinine 4.14 H D Glucose 92 Calcium 8.9 Phosphorus 1.9 L Magnesium 1.9 Total Bilirubin 2.0 H 1.5 H AST 12 L ALT 5 L Alkaline Phosphatase 84 Albumin 3.0 L PG Care Time/CCT Total # of Minutes Spent Total Time Spent with Patient: Total time spent is greater than 50% in coordination of care (as documented) at patient's floor/unit and/or counseling patient: Coding Level of Care Code 27371 SUB INP/OBS CARE 3/50MIN Diagnoses End-stage renal disease on hemodialysis N18.6; Z99.2 Anemia D64.9 Anemia type: unspecified type Hypertension I10 Secondary hyperparathyroidism of renal origin N25.81 Abscess of right leg L02.415 (2) Anemia Anemia type: unspecified type Qualified Code(s): D64.9 - Anemia, unspecified
[2022-10-05 10:56] LABS: HBSAG NON-REACTIVE (NON-REACTIVE); Hepatitis A Antibody IgM NON-REACTIVE (NON-REACTIVE); Hepatitis B Core Antibody IgM NON-REACTIVE (NON-REACTIVE)
[2022-10-05] MEDS: cefTRIAXone SODIUM 2,000 MG in DEXTROSE 5% 50 ML IV SCH (13:22)
--- NOTE | 2022-10-05 17:24 | Billing Data ---
Date of Service October 05, 2022 Coding Level of Care Code 92861 SUB INP/OBS CARE MIN
[2022-10-05] MEDS: ATORVASTATIN 20 MG TAB PO SCH (20:15)
[2022-10-05] MEDS: HEPARIN SOD 5,000 UNIT/0.5 ML VIAL SQ SCH (20:16)
[2022-10-05] MEDS ORDERED: HEPARIN SOD 5,000 UNIT/0.5 ML VIAL SQ SCH (21:00)
[2022-10-05] MEDS: HYDROmorphone INJ 0.5 MG/0.5 ML SYR IV PRN (22:23)
[2022-10-06] MEDS: oxyCODONE HCL IR 5 MG TAB (IMMEDIATE RELEASE) PO PRN ×2 (00:03→13:26)
[2022-10-06] MEDS: metroNIDAZOLE 500 MG/100 ML BAG IV SCH ×3 (02:01→17:19)
[2022-10-06 06:24] LABS: Anion Gap 9 (3-11); BUN Creatinine Ratio 8.1 (10-20); Blood Urea Nitrogen 26 mg/dl (6-23); Calcium 8.8 mg/dl (8.5-10.1); Carbon Dioxide 25 mmol/L (21-32); Chloride 102 mmol/L (98-107); Creatinine Clr Calc Pharmacy 33.5 ml/min; Est GFR (Non-African American) 19.8 ml/min; Glucose 111 mg/dl (70-99(Fasting)); Potassium 3.8 mmol/L (3.5-5.1); Sodium 136 mmol/L (136-145)
--- NOTE | 2022-10-06 06:31 | Hospitalist Progress Note ---
Date of Service October 06, 2022 Assessment & Plan (1) Abscess of right leg: Plan: RLE abscess -- s/p I&D by Dr. German on 10/01 - Drainage: ~400ml purulent fluid expressed intraoperatively -- still expressing pus through 10/06 --> Once minimal drainage, proceed with wound vac --> If firmness increases, will check US - Cultures & sensitivities: growing mendes-sensitive Staph (MSSA) & Bacteroides - Continue encouraging patient to use off loading AFO (brace) - Pain control: continue oxycodone 2.5mg as needed. Dilauded HS PRN. - Continue CFTX + Flagyl until discharge, then transition to cefdinir/metro - Appreciate PT, OT ESRD on HD - followed inpatient by nephrology, home dialysis continued here @ //Sat - Nephrology following, appreciate insight/recommendations -- see HoTN below - Continue renal diet, sevelamer Supratherapeutic INR - INR hovering around upper-1 range during admission in setting of elevated TBili - Suspect mostly malnutrition, possibly part hepatic dysfunction as major culprit given INR improvement with single 10mg dose of Vitamin K - Trend INR Normocytic Anemia- chronic, stable - multifactorial between ESRD + malnutrition - stable on daily checks between 8-9 - appreciate nephrology assistance with Venofer and Mircera (Epo) q4wk HoTN -- in setting of known malnutrition - Concern for multiple HoTN episodes during dialysis sessions while here - In setting of known ESRD and reports of poor PO intake at home, 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 LV dysfunction and hepatic dysfunction possibly contributing to some degree. - Possibly hepatic contribution -- CTAP demonstrated hepatic nodularity with small ascites and pleural effusions -- elevated TBili noted, same with INR (though INR improved with single dose of Vitamin K) and mild depression in albumin. Await hepatitis serologies. 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 Will provide counselling while here, too. 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 Mixed systolic and diastolic CHF. Use IV fluids w/ caution. DM: A1c 4.7 on 06/2022. Per Michaela Choudhury, not managed with insulin. PAD: Per scanned vascular surgery report, had 07/29/22 RLE angiogram w/ right SFA and popliteal angioplasty. He had hospitalization during which he had RLE/Achilles tendon wound debridement. Continue home baby ASA and statin. FEN/GI: Dialysis, renal diet Code: full DVT prophylaxis: hep 5000 q12 Admission and Anticipated Discharge Date Admission Date: September 30, 2022 Supervising Physician Co-Signing Physician Notes I personally examined the patient and verified all dhillon points of history and exam, discussed case, and agree with decision making with Dr. Honeycutt Pain under good control. No new issues. Notes that he would like us to olena nue to check fingerstick glucoses. Vitals noted, in general he is awake pleasant no distress. HEENT normocephalic atraumatic mucous membranes moist. Breathing unlabored no accessory muscle use good effort. Neuro no focal deficits. Right calf overall soft, slightly more firmness than on previous exams outside of the initial day that I saw him preopbut nothing that is tender no crepitus no clear fluctuance, no erythemanonspecific just very slightly firmer, and nearly identical to yesterday. CBC, basic metabolic panel, surgical cultures noted. Right leg infection with concern on gangrenefortunately not rapidly progressive, fortunately not severe sepsis/septic shock, and now postop with source control (400+ mL of pus removed) we are now mostly treating residual cellulitis and myositisstable on ceftriaxone/flagyl (MSSA and anerobes on Cx, appears to be polymicrobial) - ongoing wound care, anticipate need for vac once drainage stops. If drainage continues, and/or minor fullness and calf stays or becomes a questioncan have surgery evaluate in more depth (either at the bedside or in the ORwould defer to Dr. German's discretion), or ultrasound. SNF vs rehab - after previous discussion with patient he would prefer a different facility if possible - probably [facility]. As it relates to his low blood pressures at dialysis, concern was raised about liver diseaseI think there is probably evidence to support that is largely malnutrition, but probably some degree of underlying liver disease. Hepatitis serologies are pendingliver disease is probably however mostly on the basis of dysmetabolic and longstanding fatty liver for risk factors that have now passed. As it relates to malnutritionwill need to educate patient on calorie intake, dietitian consulted. Subjective NAEO. Tolerated dialysis well yesterday. Still a significant amount of pus yesterday per nursing staff. Minimal pain. Review of Systems Review of Systems: as per HPI Physical Exam Physical Exam: General: Tired and pale appearing 62-year old male who is alert, oriented, and is in NAD. HEENT: NCAT. - Eyes - Sclera are white, anicteric, and without injection. - Mouth - MMM - Neck - supple, no appreciable JVD Cardiac: Normal rate and regular rhythm; S1 and S2 present with no murmur detected Pulmonary: Good respiratory effort with symmetric expansion of the chest. No use of accessory muscles. Lungs were CTAB Abdominal: Normoactive bowel sounds. Abdomen was soft, nondistended, and non- tender to palpation. Extremities: Upper and lower extremities are warm and well perfused. RLE wrapped, c/d/i, good peripheral perfusion cap refill < 2 sec Results & Data Results & Data Vital Signs (Past 12 Hours) Vital Signs Temp Pulse Resp BP Pulse Ox O2 Del Method 10/06/22 04:30 36.5 C 74 14 137/83 98 Room Air Resident Activity Tracking Resident Involvement: Resident Care Provided Care Provided: Adult Hospital Medicine
[2022-10-06 06:33] LABS: Basophils # (auto) 0.05 K/uL (0-0.2); Basophils % (auto) 0.8 %; Eosinophils # (auto) 0.21 K/uL (0-0.50); Eosinophils % (auto) 3.4 %; Hematocrit (blood only) 27.9 % (42.0-52.0); Hemoglobin 8.4 g/dl (14.0-18.0); Immature Granulocytes # (auto) 0.01 K/uL (0.01-0.20); Immature Granulocytes % (auto) 0.2 %; Lymphocytes # (auto) 1.33 K/uL (1.2-3.4); Lymphocytes % (auto) 21.3 %; Mean Corpuscular Hemoglobin 26.6 pg (25.0-34.0); Mean Corpuscular Hgb Conc 30.1 g/dL (32.0-36.0); Mean Corpuscular Volume 88.3 fL (80.0-100.0); Mean Platelet Volume 11.4 fL (9.4-12.4); Monocytes # (auto) 0.51 K/uL (0.11-0.59); Monocytes % (auto) 8.2 %; Neutrophils # (auto) 4.13 K/uL (1.40-6.50); Neutrophils % (auto) 66.1 %; Platelet Count 213 K/uL (130-400); RDW Coefficient of Variation 19.1 % (11.5-14.5); RDW Standard Deviation 60.7 fL (36.4-46.3); Red Blood Count 3.16 M/uL (4.70-6.10); White Blood Count 6.24 K/ul (4.8-10.8)
[2022-10-06 06:43] LABS: Ferritin 1175.5 ng/ml (8-388)
[2022-10-06 06:50] LABS: Alanine Aminotransferase 5 U/L (7-52); Albumin Globulin Ratio 1.1 (0.9-2); Albumin Level 3.1 gm/dl (3.4-5.0); Alkaline Phosphatase 89 U/L (34-104); Aspartate Aminotransferase 15 U/L (13-39); Bilirubin,Total 1.4 mg/dl (0.2-1.0); Globulin 2.8 gm/dl (2.5-4.0); Iron 64 mcg/dl (35-175); Magnesium 1.9 mg/dl (1.7-2.4); Phosphorus 2.1 mg/dl (2.5-4.9); Total Protein 5.9 gm/dl (6.0-8.3); Unsaturated Iron Binding Cap < 55 mcg/dl (155-355)
[2022-10-06 07:55] LABS: INR 1.3 (0.9-1.1)
[2022-10-06] MEDS: NEPHROCAPS PO SCH (08:16)
[2022-10-06] MEDS: POLYETHYLENE (MIRALAX) 17 GM PACK PO SCH ×2 (08:16→17:19)
[2022-10-06] MEDS: PANTOprazole 40 MG TAB PO SCH ×2 (08:16→21:34)
[2022-10-06] MEDS: hydrALAZINE HCL 25 MG TAB PO SCH ×3 (08:18→21:34)
[2022-10-06] MEDS: HEPARIN SOD 5,000 UNIT/0.5 ML VIAL SQ SCH ×2 (08:21→21:34)
--- NOTE | 2022-10-06 09:54 | Nephrology Progress Note ---
Date of Service October 06, 2022 Assessment & Plan (1) End-stage renal disease on hemodialysis: Plan: * Outpatient HD Rx: TTS at [facility] [place] 4.5hr, 2K 2.5Ca Na 137, HCO3 38, F- 250 NR, 14 g needles, Qb500 Qd 800, EDW 116 Kg, heparin 3000 unit bolus + 2500 units q1 hr, L forearm AVF * Last HD 10/05/22 without complication. 2L UF obtained. Volume status and electrolyte balance are acceptable. No acute indication for HD today (2) Anemia: Plan: * Hgb 8.4 this am * Elevated ferritin and active infection preclude IV iron * Epogen 84926 units administered w/ HD 10/03/22 (3) Hypertension: Plan: * On metoprolol succinate 25 mg BID and hydralazine 25 mg TID * Antihypertensives will be held prior to dialysis (4) Secondary hyperparathyroidism of renal origin: Plan: * PO4 only 1.5. Will hold Sevelamer (5) Abscess of right leg: Plan: * I&D R calf abscess 10/01/22. Culture + for MSSA * On ceftriaxone and Flagyl Admission and Anticipated Discharge Date Admission Date: September 30, 2022 Subjective Mr. Quinonez was evaluated in his hospital room this morning. He c/o mild d iscomfort from his R calf abscess. He denied fever or abdominal discomfort. Mr. Quinonez reports that he is tolerating his diet without N/V. Review of Systems Constitutional: no fever Eyes: no problem reported Ear, Nose, Mouth, Throat: no problem reported Respiratory: no dyspnea Cardiovascular: no chest pain and no palpitations Gastrointestinal: no abdominal pain, no nausea, no vomiting and no diarrhea/loose stools Physical Exam Constitutional: not in distress and not overweight Eyes: PERRL, conjunctivae normal, anicteric sclerae ENMT: external ear and nose normal, oropharynx normal Neck: trachea midline, no thyromegaly Respiratory: normal respiratory effort, lungs clear to auscultation Cardiovascular: RRR, no murmur, no edema Extremities: + AV fistula (+ bruit) Gastrointestinal (Abdomen): normal bowel sounds, soft, nontender, no hepatosplenomegaly Neurologic: no focal motor deficits and not confused Speech / Cognition: normal speech Results & Data Vital Signs (Past 12 Hours) Vital Signs Temp Pulse Resp BP Pulse Ox O2 Del Method 10/06/22 08:10 36.7 C 90 18 144/86 H 99 Room Air 10/06/22 04:30 36.5 C 74 14 137/83 98 Room Air Laboratory Results Laboratory Tests 10/06/22 10/06/22 05:37 05:37 WBC 6.24 Hgb 8.4 L Hct 27.9 L Plt Count 213 Sodium 136 Potassium 3.8 Chloride 102 Carbon Dioxide 25 BUN 26 H Creatinine 3.22 H D Glucose 111 H Calcium 8.8 Phosphorus 2.1 L Magnesium 1.9 Transferrin % Sat TNP Ferritin 1175.5 H Albumin 3.1 L PG Care Time/CCT Total # of Minutes Spent Total Time Spent with Patient: Total time spent is greater than 50% in coordination of care (as documented) at patient's floor/unit and/or counseling patient: Coding Level of Care Code 19574 SUB INP/OBS CARE 3/50MIN Diagnoses End-stage renal disease on hemodialysis N18.6; Z99.2 Anemia D64.9 Anemia type: unspecified type Hypertension I10 Secondary hyperparathyroidism of renal origin N25.81 Abscess of right leg L02.415 (2) Anemia Anemia type: unspecified type Qualified Code(s): D64.9 - Anemia, unspecified
[2022-10-06] MEDS: cefTRIAXone SODIUM 2,000 MG in DEXTROSE 5% 50 ML IV SCH (11:40)
[2022-10-06] MEDS: METOPROLOL SUCC 25MG EXT REL TAB PO SCH ×2 (11:40→21:36)
--- NOTE | 2022-10-06 13:46 | Billing Data ---
Date of Service October 06, 2022 Coding Level of Care Code 26498 SUB INP/OBS CARE
[2022-10-06] MEDS: ATORVASTATIN 20 MG TAB PO SCH (21:33)
[2022-10-06] MEDS: HYDROmorphone INJ 0.5 MG/0.5 ML SYR IV PRN (23:04)
[2022-10-07] MEDS: metroNIDAZOLE 500 MG/100 ML BAG IV SCH ×3 (02:06→17:41)
[2022-10-07] MEDS: oxyCODONE HCL IR 5 MG TAB (IMMEDIATE RELEASE) PO PRN ×3 (02:12→19:51)
[2022-10-07 06:41] LABS: Basophils # (auto) 0.04 K/uL (0-0.2); Basophils % (auto) 0.7 %; Eosinophils # (auto) 0.22 K/uL (0-0.50); Hematocrit (blood only) 25.1 % (42.0-52.0); Hemoglobin 7.6 g/dl (14.0-18.0); Immature Granulocytes # (auto) 0.02 K/uL (0.01-0.20); Immature Granulocytes % (auto) 0.4 %; Lymphocytes # (auto) 1.41 K/uL (1.2-3.4); Lymphocytes % (auto) 25.9 %; Mean Corpuscular Hemoglobin 26.7 pg (25.0-34.0); Mean Corpuscular Hgb Conc 30.3 g/dL (32.0-36.0); Mean Corpuscular Volume 88.1 fL (80.0-100.0); Mean Platelet Volume 11.3 fL (9.4-12.4); Monocytes # (auto) 0.53 K/uL (0.11-0.59); Monocytes % (auto) 9.7 %; Neutrophils # (auto) 3.22 K/uL (1.40-6.50); Neutrophils % (auto) 59.3 %; Platelet Count 187 K/uL (130-400); RDW Coefficient of Variation 19.4 % (11.5-14.5); Red Blood Count 2.85 M/uL (4.70-6.10); White Blood Count 5.44 K/ul (4.8-10.8)
[2022-10-07 06:42] LABS: BUN Creatinine Ratio 9.8 (10-20); Calcium 8.6 mg/dl (8.5-10.1); Creatinine Clr Calc Pharmacy 27.7 ml/min; Est GFR (African American) 18.3 ml/min; Est GFR (Non-African American) 15.8 ml/min; Magnesium 1.9 mg/dl (1.7-2.4); Potassium 3.7 mmol/L (3.5-5.1)
[2022-10-07 07:06] LABS: Polychromasia 1+
[2022-10-07] MEDS: hydrALAZINE HCL 25 MG TAB PO SCH ×3 (07:37→19:51)
[2022-10-07] MEDS: POLYETHYLENE (MIRALAX) 17 GM PACK PO SCH ×2 (07:37→16:55)
[2022-10-07] MEDS: HEPARIN SOD 5,000 UNIT/0.5 ML VIAL SQ SCH ×2 (07:37→19:49)
[2022-10-07] MEDS: NEPHROCAPS PO SCH (07:38)
[2022-10-07] MEDS: PANTOprazole 40 MG TAB PO SCH ×2 (07:38→19:51)
--- NOTE | 2022-10-07 08:24 | Hospitalist Progress Note ---
Date of Service October 07, 2022 Assessment & Plan (1) Abscess of right leg: Plan: RLE abscess -- s/p I&D by Dr. German on 10/01 - Drainage: ~400ml purulent fluid expressed intraoperatively -- still expressing pus through 10/07 --> Once minimal drainage, proceed with wound vac - Cultures & sensitivities: growing mendes-sensitive Staph (MSSA) & Bacteroides - Continue encouraging patient to use off loading AFO (brace) - Pain control: continue oxycodone 2.5mg as needed. Dilauded HS PRN. - Continue CFTX + Flagyl until discharge, then transition to cefdinir/metro - In light of continued drainage, concern for additional loculated abscess, tunneling. US RLE ordered. - PT/OT-likely dispo to acute inpatient rehab or SNF ESRD on HD - followed inpatient by nephrology, home dialysis continued here @ T//Sat - Nephrology following, appreciate insight/recommendations -- see HoTN below - Continue renal diet, sevelamer Supratherapeutic INR - INR hovering around upper-1 range during admission in setting of elevated TBili - Suspect mostly malnutrition, possibly part hepatic dysfunction as major culprit given INR improvement with single 10mg dose of Vitamin K - Trend INR Normocytic Anemia- chronic, stable - multifactorial between ESRD + malnutrition - stable on daily checks between 8-9 - appreciate nephrology assistance with Venofer and Mircera (Epo) q4wk HoTN -- in setting of known malnutrition - Concern for multiple HoTN episodes during dialysis sessions while here - In setting of known ESRD and reports of poor PO intake at home, 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 LV dysfunction and hepatic dysfunction possibly contributing to some degree. - Possibly hepatic contribution -- CTAP demonstrated hepatic nodularity with small ascites and pleural effusions -- elevated TBili noted, same with INR (though INR improved with single dose of Vitamin K) and mild depression in albumin. Await hepatitis serologies. 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 Will provide counselling while here, too. 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 Mixed systolic and diastolic CHF. Use IV fluids w/ caution. DM: A1c 4.7 on 06/2022. Per Michaela Choudhury, not managed with insulin. PAD: Per scanned vascular surgery report, had 07/29/22 RLE angiogram w/ right SFA and popliteal angioplasty. He had hospitalization during which he had RLE/Achilles tendon wound debridement. Continue home baby ASA and statin. FEN/GI: Dialysis, renal diet Code: full DVT prophylaxis: hep 5000 q12 Admission and Anticipated Discharge Date Admission Date: September 30, 2022 Supervising Physician Co-Signing Physician Notes Patient POD5 status post I&D distal RLE by podiatry. Brad in place and draining, additional purulent drainage surrounding drain, sutures intact. Patient remains on IV metronidazole and ceftriaxone. Nephrology managing ESRD and hemodialysis. Patient denies pain at present. I personally examined the patient and verified all dhillon points of history and exam, discussed case, and agree with decision making and plan documented by Dr. Victoria. Yazmin Doan, DO Subjective No acute events overnight. Denies leg pain this morning. Per nursing, wound continues to drain during dressing changes. Review of Systems Review of Systems: All systems reviewed & are unremarkable except as noted in HPI & below Physical Exam Physical Exam: General: Tired and pale appearing 62-year old male who is alert, oriented, and is in NAD. HEENT: NCAT. - Eyes - Sclera are white, anicteric, and without injection. - Mouth - MMM - Neck - supple, no appreciable JVD Cardiac: Normal rate and regular rhythm; S1 and S2 present with no murmur detected Pulmonary: Good respiratory effort with symmetric expansion of the chest. No use of accessory muscles. Lungs were CTAB Abdominal: Normoactive bowel sounds. Abdomen was soft, nondistended, and non- tender to palpation. Extremities: Upper and lower extremities are warm and well perfused. RLE continues to drain when dressing is undone. Foul odor emitting from wound. No evidence of surrounding induration, or erythema suggesting cellulitis. Good distal pulses (dorsalis pedis). Results & Data Results & Data Vital Signs (Past 12 Hours) Vital Signs Temp Pulse Pulse Resp BP Pulse Ox O2 Del Method 10/07/22 07:40 Nasal Cannula 10/07/22 07:52 36.4 C L 75 14 132/88 100 Room Air 10/06/22 21:35 36.4 C L 87 20 146/87 H 100 Room Air O2 Flow Rate 10/07/22 07:40 1 10/07/22 07:52 10/06/22 21:35 Resident Activity Tracking Resident Involvement: Resident Care Provided Care Provided: Adult Hospital Medicine
--- NOTE | 2022-10-07 08:46 | Nephrology Progress Note ---
Date of Service October 07, 2022 Assessment & Plan (1) End-stage renal disease on hemodialysis: Plan: * Outpatient HD Rx: TTS at [facility] [place] 4.5hr, 2K 2.5Ca Na 137, HCO3 38, F- 250 NR, 14 g needles, Qb500 Qd 800, EDW 116 Kg, heparin 3000 unit bolus + 2500 units q1 hr, L forearm AVF * Volume status and electrolyte balance are acceptable. No acute indication for HD today. Will schedule HD for am (2) Anemia: Plan: * Hgb 7.6 this am * Elevated ferritin and active infection preclude IV iron * Will redose ERI w/ HD tomorrow (3) Hypertension: Plan: * On metoprolol succinate 25 mg BID and hydralazine 25 mg TID * BP is currently well controlled * Antihypertensives will be held prior to dialysis (4) Secondary hyperparathyroidism of renal origin: Plan: * PO4 only 1.5. Will hold Sevelamer (5) Abscess of right leg: Plan: * I&D R calf abscess 10/01/22. Culture + for MSSA * On ceftriaxone and Flagyl Admission and Anticipated Discharge Date Admission Date: September 30, 2022 Subjective Mr. Quinonez was evaluated in his hospital room this morning. He reports drainage from his R calf debridement site. He denied fever or abdominal discomfort. Mr. Quinonez reports that he is tolerating his diet without N/V. Review of Systems Constitutional: no fever Eyes: no problem reported Ear, Nose, Mouth, Throat: no problem reported Respiratory: no dyspnea Cardiovascular: no chest pain and no palpitations Gastrointestinal: no abdominal pain, no nausea, no vomiting and no diarrhea/loose stools Physical Exam Constitutional: not in distress and not overweight Eyes: PERRL, conjunctivae normal, anicteric sclerae ENMT: external ear and nose normal, oropharynx normal Neck: trachea midline, no thyromegaly Respiratory: normal respiratory effort, lungs clear to auscultation Cardiovascular: RRR, no murmur, no edema Extremities: + AV fistula (+ bruit) Gastrointestinal (Abdomen): normal bowel sounds, soft, nontender, no hepatosplenomegaly Neurologic: no focal motor deficits and not confused Speech / Cognition: normal speech Results & Data Vital Signs (Past 12 Hours) Vital Signs Temp Pulse Pulse Resp BP Pulse Ox O2 Del Method 10/07/22 07:40 Nasal Cannula 10/07/22 07:52 36.4 C L 75 14 132/88 100 Room Air 10/06/22 21:35 36.4 C L 87 20 146/87 H 100 Room Air O2 Flow Rate 10/07/22 07:40 1 10/07/22 07:52 10/06/22 21:35 Laboratory Results Laboratory Tests 10/07/22 10/07/22 05:31 05:31 WBC 5.44 Hgb 7.6 L Hct 25.1 L Plt Count 187 Sodium 135 L Potassium 3.7 Chloride 102 Carbon Dioxide 24 BUN 38 H Creatinine 3.89 H D Glucose 92 PG Care Time/CCT Total # of Minutes Spent Total Time Spent with Patient: Total time spent is greater than 50% in coordination of care (as documented) at patient's floor/unit and/or counseling patient: Coding Level of Care Code 88406 SUB INP/OBS CARE 3/50MIN Diagnoses End-stage renal disease on hemodialysis N18.6; Z99.2 Anemia D64.9 Anemia type: unspecified type Hypertension I10 Secondary hyperparathyroidism of renal origin N25.81 Abscess of right leg L02.415 (2) Anemia Anemia type: unspecified type Qualified Code(s): D64.9 - Anemia, unspecified
[2022-10-07] MEDS: cefTRIAXone SODIUM 2,000 MG in DEXTROSE 5% 50 ML IV SCH (11:13)
[2022-10-07] MEDS: METOPROLOL SUCC 25MG EXT REL TAB PO SCH ×2 (11:15→19:50)
--- NOTE | 2022-10-07 17:35 | Ultrasound Report ---
US extremity non-vascular ltd CLINICAL HISTORY: POD5 s/p I D RLE/inc purulence, ?new abscs v. locu TECHNIQUE: Real-time grayscale sonographic images of the right mid leg were obtained. Comparison: None available at the time of this dictation. FINDINGS/IMPRESSION: Evaluation is limited due to wound dressings. At the point of interest in the ri ght medial/posterior mid to distal calf, soft tissue edema is seen without evidence of discrete fluid collection. In particular no abscess is seen. ACT 112: Negative or not required by law. Electronically signed by: Davis Lainez M.D. 10/07/2022 5:34 PM
[2022-10-07] MEDS: ATORVASTATIN 20 MG TAB PO SCH (19:50)
--- NOTE | 2022-10-07 22:48 | Orthopedic Progress Note ---
Date of Service October 07, 2022 Assessment & Plan (1) Abscess of right leg: Plan: Patient seen, evaluated, and treated. Dressing changed, mild to moderated exudate at wound site. Packing reapplied. Reviewed Ultrasound, further abscess identified. MRI ordered to review possible unreleased abscess prior to OR debridement. Patient will benefit from OR debridement, wash out, application of wound vac. Discussed importance for compliance with off loading AFO. Reviewed right heel pressure wound. Thank you for allowing me to participate in the care of the Patient. Admission and Anticipated Discharge Date Admission Date: September 30, 2022 Subjective Patient seen at bedside. Patient is day #6 status post I&D right leg. Patient utilizing AFO for offloading of right heel ulcer Patient denies leg pain. Per nursing, wound continues to drain during dressing changes. Patient does state dressing has been changed multiple times today. Review of Systems Review of Systems: All systems reviewed & are unremarkable except as noted in HPI & below Physical Exam Constitutional: WD/WN, vitals as above cooperative and comfortable Eyes: normal accommodation Respiratory: normal respiratory effort Cardiovascular: Rate/Rhythm: regular rate and regular rhythm Skin: Sutures intact. Drain intact. Packing exchanged. Mild to moderate drainage present. Psychiatric: Orientation: alert and oriented x 3 Results & Data Vital Signs (Past 12 Hours) Vital Signs Temp Pulse Pulse Resp BP Pulse Ox O2 Del Method 10/07/22 19:47 36.6 C 81 16 150/84 H 98 Room Air 10/07/22 14:19 36.3 C L 81 18 118/73 99 Room Air
[2022-10-08] MEDS: metroNIDAZOLE 500 MG/100 ML BAG IV SCH ×3 (02:16→21:29)
[2022-10-08] MEDS: oxyCODONE HCL IR 5 MG TAB (IMMEDIATE RELEASE) PO PRN ×3 (02:19→23:45)
[2022-10-08] MEDS: HYDROmorphone INJ 0.5 MG/0.5 ML SYR IV PRN (03:22)
--- NOTE | 2022-10-08 04:08 | Magnetic Resonance Report ---
Exam(s): MRI EXTREMITY Without Contrast EXAM: MR Right Lower Extremity Without Intravenous Contrast CLINICAL HISTORY: Concern for abscess. TECHNIQUE: Multiplanar magnetic resonance images of the right lower extremity without intravenous contrast. COMPARISON: CT lower extremity 09/30/2022. FINDINGS: Bones/joints: Unremarkable. No acute fracture. No dislocation. Soft tissues: There is a 1.8 x 7.4 x 20 cm fluid collection with a percutaneous drain of the gastrocnemius. IMPRESSION: There is a 1.8 x 7.4 x 20 cm fluid collection with a percutaneous drain of the gastrocnemius. This is concerning for an abscess. Electronically signed by: Kinjal Herrera MD 10/08/22 04:08 AM
[2022-10-08] MEDS ORDERED: EPOETIN ALFA 20,000 UNITS/ML VIAL IV ONE (07:00)
[2022-10-08] MEDS ORDERED: SODIUM CHLORIDE 0.9% 1000ML 1,000 ML IV PRN (07:00)
[2022-10-08] MEDS ORDERED: HEPARIN SOD (PORCINE) 1000 UNIT/ML IV ONE (07:00)
--- NOTE | 2022-10-08 08:15 | Hospitalist Progress Note ---
Date of Service October 08, 2022 Assessment & Plan (1) Abscess of right leg: Plan: RLE abscess -- s/p I&D by Dr. German on 10/01 - Drainage: ~400ml purulent fluid expressed intraoperatively -- still expressing pus through 10/07 --> Once minimal drainage, proceed with wound vac - Cultures & sensitivities: growing mendes-sensitive Staph (MSSA) & Bacteroides - MRI R LE on 10/07/2022 showed abscess measuring 1.8 cm x 7.4 cm x 20 cm in gastrocnemius. * Continue ceftriaxone, Flagyl. Transition to cefdinir, metronidazole at discharge * Pain control: Oxycodone 2.5 mg as needed. Dilaudid at bedtime as needed * Continue encouraging use of AFO brace. * Podiatry: I&D, plan wound VAC. Appreciate new wound culture results. * Dispo likely to inpatient rehab versus SNF. Will review with case management. ESRD on HD - followed inpatient by nephrology, home dialysis continued here @ T//Sat - Nephrology following, appreciate insight/recommendations -- see HoTN below - Continue renal diet, sevelamer Supratherapeutic INR - INR hovering around upper-1 range during admission in setting of elevated TBili - Suspect mostly malnutrition, possibly part hepatic dysfunction as major culprit given INR improvement with single 10mg dose of Vitamin K - Trend INR Normocytic Anemia- chronic, stable - multifactorial between ESRD + malnutrition - stable on daily checks between 8-9 - appreciate nephrology assistance with Venofer and Mircera (Epo) q4wk HoTN -- in setting of known malnutrition - Concern for multiple HoTN episodes during dialysis sessions while here. 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 LV dysfunction and hepatic dysfunction possibly contributing to some degree. - Possibly hepatic contribution -- CTAP demonstrated hepatic nodularity with small ascites and pleural effusions -- elevated TBili noted, same with INR (though INR improved with single dose of Vitamin K) and mild depression in albumin. Await hepatitis serologies. 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 Will provide counselling while here, too. 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 Mixed systolic and diastolic CHF. Use IV fluids w/ caution. DM: A1c 4.7 on 06/2022. Per [facility], not managed with insulin. PAD: Per scanned vascular surgery report, had 07/29/22 RLE angiogram w/ right SFA and popliteal angioplasty. He had hospitalization during which he had RLE/Achilles tendon wound debridement. Continue home baby ASA and statin. FEN/GI: Dialysis, renal diet Code: full DVT prophylaxis: hep 5000 q12 Admission and Anticipated Discharge Date Admission Date: September 30, 2022 Supervising Physician Co-Signing Physician Notes Patient POD6 status post I&D distal RLE by podiatry. Repeat MRI shows abscess in right gastrocnemius. Anticipate return to the OR. Patient states pain is well controlled. I personally examined the patient and verified all dhillon points of history and exam, discussed case, and agree with decision making and plan documented by Dr. Victoria. Yazmin Doan, DO Subjective Last night MRI ordered by sap manager, Dr. German, revealed abscess in the gastrocnemius measuring 1.8 cm x 7.4 cm x 20 cm. This morning, patient reports right LE pain controlled with IV Dilaudid. He denies pain at this time. He would like to know the results of his MRI. Review of Systems Review of Systems: All systems reviewed & are unremarkable except as noted in HPI & below Physical Exam Physical Exam: General: Tired and pale appearing 62-year old male who is alert, oriented, and is in NAD. HEENT: NCAT. - Eyes - Sclera are white, anicteric, and without injection. - Mouth - MMM - Neck - supple, no appreciable JVD Cardiac: Normal rate and regular rhythm; S1 and S2 present with no murmur detected Pulmonary: Good respiratory effort with symmetric expansion of the chest. No use of accessory muscles. Lungs were CTAB Abdominal: Normoactive bowel sounds. Abdomen was soft, nondistended, and non- tender to palpation. Extremities: Upper and lower extremities are warm and well perfused. RLE continues to drain when dressing is undone. Foul odor emitting from wound. No evidence of surrounding induration, or erythema suggesting cellulitis. Good distal pulses (dorsalis pedis). Results & Data Results & Data Vital Signs (Past 12 Hours) Vital Signs Temp Pulse Resp BP Pulse Ox O2 Del Method 10/08/22 07:45 36.5 C 76 18 135/75 96 Room Air Resident Activity Tracking Resident Involvement: Resident Care Provided Care Provided: Adult Hospital Medicine
[2022-10-08 08:42] LABS: Basophils # (auto) 0.03 K/uL (0-0.2); Basophils % (auto) 0.5 %; Eosinophils # (auto) 0.21 K/uL (0-0.50); Eosinophils % (auto) 3.5 %; Hematocrit (blood only) 26.4 % (42.0-52.0); Hemoglobin 8.1 g/dl (14.0-18.0); Immature Granulocytes # (auto) 0.02 K/uL (0.01-0.20); Immature Granulocytes % (auto) 0.3 %; Lymphocytes # (auto) 1.47 K/uL (1.2-3.4); Lymphocytes % (auto) 24.7 %; Mean Corpuscular Hemoglobin 26.9 pg (25.0-34.0); Mean Corpuscular Hgb Conc 30.7 g/dL (32.0-36.0); Mean Corpuscular Volume 87.7 fL (80.0-100.0); Mean Platelet Volume 11.4 fL (9.4-12.4); Monocytes # (auto) 0.53 K/uL (0.11-0.59); Monocytes % (auto) 8.9 %; Neutrophils % (auto) 62.1 %; Platelet Count 193 K/uL (130-400); RDW Coefficient of Variation 19.8 % (11.5-14.5); RDW Standard Deviation 62.4 fL (36.4-46.3); Red Blood Count 3.01 M/uL (4.70-6.10); White Blood Count 5.96 K/ul (4.8-10.8)
[2022-10-08] MEDS: POLYETHYLENE (MIRALAX) 17 GM PACK PO SCH ×2 (09:06→16:18)
[2022-10-08] MEDS: HEPARIN SOD 5,000 UNIT/0.5 ML VIAL SQ SCH ×2 (09:06→20:15)
[2022-10-08 09:11] LABS: Albumin Globulin Ratio 1.1 (0.9-2); Albumin Level 3.2 gm/dl (3.4-5.0); BUN Creatinine Ratio 10.3 (10-20); Bilirubin,Total 1.3 mg/dl (0.2-1.0); Calcium 9.1 mg/dl (8.5-10.1); Creatinine Clr Calc Pharmacy 24.1 ml/min; Est GFR (African American) 15.4 ml/min; Est GFR (Non-African American) 13.3 ml/min; Globulin 2.9 gm/dl (2.5-4.0); Phosphorus 3.6 mg/dl (2.5-4.9); Total Protein 6.1 gm/dl (6.0-8.3)
--- NOTE | 2022-10-08 09:21 | Nephrology Progress Note ---
Date of Service October 08, 2022 Assessment & Plan (1) End-stage renal disease on hemodialysis: Plan: * Outpatient HD Rx: TTS at [facility] [place] 4.5hr, 2K 2.5Ca Na 137, HCO3 38, F- 250 NR, 14 g needles, Qb500 Qd 800, EDW 116 Kg, heparin 3000 unit bolus + 2500 units q1 hr, L forearm AVF * Will provide HD today and attempt 3-3.5 L UF. Orders placed in EMR and HD RN notified (2) Anemia: Plan: * Hgb 8.1 this am * Elevated ferritin and active infection preclude IV iron * Will redose ERI w/ HD today (3) Hypertension: Plan: * On metoprolol succinate 25 mg BID and hydralazine 25 mg TID * BP is currently well controlled * Antihypertensives will be held prior to dialysis (4) Secondary hyperparathyroidism of renal origin: Plan: * PO4 improved to 3.5. Continue to hold Sevelamer (5) Abscess of right leg: Plan: * I&D R calf abscess 10/01/22. Culture + for MSSA * Will require second I&D tomorrow * Remains on ceftriaxone and Flagyl Admission and Anticipated Discharge Date Admission Date: September 30, 2022 Subjective Mr. Quinonez was evaluated in his hospital room this morning. He notes that MRI revealed a persistent R calf abscess that he will need to have drained. Review of Systems Constitutional: no fever Eyes: no problem reported Ear, Nose, Mouth, Throat: no problem reported Respiratory: no dyspnea Cardiovascular: no chest pain and no palpitations Gastrointestinal: no abdominal pain, no nausea, no vomiting and no diarrhea/loose stools Physical Exam Constitutional: not in distress and not overweight Eyes: PERRL, conjunctivae normal, anicteric sclerae ENMT: external ear and nose normal, oropharynx normal Neck: trachea midline, no thyromegaly Respiratory: normal respiratory effort, lungs clear to auscultation Cardiovascular: RRR, no murmur, no edema Extremities: + AV fistula (+ brui t) Gastrointestinal (Abdomen): normal bowel sounds, soft, nontender, no hepatosplenomegaly Neurologic: no focal motor deficits and not confused Speech / Cognition: normal speech Results & Data Vital Signs (Past 12 Hours) Vital Signs Temp Pulse Resp BP Pulse Ox O2 Del Method 10/08/22 07:45 36.5 C 76 18 135/75 96 Room Air Laboratory Results Laboratory Tests 10/08/22 10/08/22 08:04 08:04 WBC 5.96 Hgb 8.1 L Hct 26.4 L Plt Count 193 Sodium 134 L Potassium 4.0 Chloride 101 Carbon Dioxide 22 BUN 46 H Creatinine 4.48 H D Glucose 89 Diagnostic Findings 10/08/22 MRI: There is a 1.8 x 7.4 x 20 cm fluid collection with a percutaneous drain of the gastrocnemius. This is concerning for an abscess. PG Care Time/CCT Total # of Minutes Spent Total Time Spent with Patient: Total time spent is greater than 50% in coordination of care (as documented) at patient's floor/unit and/or counseling patient: Coding Level of Care Code 43324 SUB INP/OBS CARE 50MIN Diagnoses End-stage renal disease on hemodialysis N18.6; Z99.2 Anemia D64.9 Anemia type: unspecified type Hypertension I10 Secondary hyperparathyroidism of renal origin N25.81 Abscess of right leg L02.415 (2) Anemia Anemia type: unspecified type Qualified Code(s): D64.9 - Anemia, unspecified
[2022-10-08] MEDS: hydrALAZINE HCL 25 MG TAB PO SCH ×3 (11:18→20:14)
[2022-10-08] MEDS: cefTRIAXone SODIUM 2,000 MG in DEXTROSE 5% 50 ML IV SCH (14:40)
[2022-10-08] MEDS: NEPHROCAPS PO SCH (14:40)
[2022-10-08] MEDS: PANTOprazole 40 MG TAB PO SCH ×2 (14:41→20:14)
[2022-10-08] MEDS: METOPROLOL SUCC 25MG EXT REL TAB PO SCH ×2 (14:41→20:15)
[2022-10-08] MEDS: HEPARIN SOD (PORCINE) 1000 UNIT/ML IV SCH ×2 (15:29→15:30)
--- NOTE | 2022-10-08 20:12 | Orthopedic Progress Note ---
Date of Service October 08, 2022 Assessment & Plan (1) Abscess of right leg: Plan: Reviewed MRI with Patient this evening. Recommend wound debridement and wash out, exploration of potential abscess, application of wound vac. Discussed importance for compliance with off loading AFO. Reviewed right heel pressure wound. Thank you for allowing me to participate in the care of the Patient. Admission and Anticipated Discharge Date Admission Date: September 30, 2022 Subjective Patient would like to review MRI. He recently had his dressing changed by nursing. Review of Systems Review of Systems: All systems reviewed & are unremarkable except as noted in HPI & below Physical Exam Constitutional: WD/WN, vitals as above cooperative and comfortable Eyes: normal accommodation Respiratory: normal respiratory effort Cardiovascular: Rate/Rhythm: regular rate and regular rhythm Psychiatric: Orientation: alert and oriented x 3 Results & Data Vital Signs (Past 12 Hours) Vital Signs Temp Pulse Pulse Pulse Resp BP BP 10/08/22 14:00 77 123/76 10/08/22 13:00 73 110/43 L 10/08/22 12:30 80 112/48 L 10/08/22 13:30 84 108/92 10/08/22 12:00 75 126/69 10/08/22 09:00 10/08/22 14:50 36.6 C 80 18 135/83 10/08/22 11:30 72 134/69 10/08/22 11:00 73 138/84 10/08/22 10:30 72 108/73 10/08/22 10:19 74 117/73 10/08/22 10:07 36.4 C L 75 Pulse Ox O2 Del Method 10/08/22 14:00 10/08/22 13:00 10/08/22 12:30 10/08/22 13:30 10/08/22 12:00 10/08/22 09:00 Room Air 10/08/22 14:50 100 Room Air 10/08/22 11:30 10/08/22 11:00 10/08/22 10:30 10/08/22 10:19 10/08/22 10:07 Diagnostic Findings Exam(s): MRI EXTREMITY Without Contrast EXAM: MR Right Lower Extremity Without Intravenous Contrast CLINICAL HISTORY: Concern for abscess. TECHNIQUE: Multiplanar magnetic resonance images of the right lower extremity without intravenous contrast. COMPARISON: CT lower extremity 09/30/2022. FINDINGS: Bones/joints: Unremarkable. No acute fracture. No dislocation. Soft tissues: There is a 1.8 x 7.4 x 20 cm fluid collection with a percutaneous drain of the gastrocnemius. IMPRESSION: There is a 1.8 x 7.4 x 20 cm fluid collection with a percutaneous drain of the gastrocnemius. This is concerning for an abscess. Electronically signed by: Kinjal Herrera MD 10/08/22 04:08 AM
[2022-10-08] MEDS: ATORVASTATIN 20 MG TAB PO SCH (20:14)
[2022-10-09] MEDS: HYDROmorphone INJ 0.5 MG/0.5 ML SYR IV PRN (01:48)
[2022-10-09] MEDS: metroNIDAZOLE 500 MG/100 ML BAG IV SCH ×3 (05:30→22:12)
[2022-10-09] MEDS: POLYETHYLENE (MIRALAX) 17 GM PACK PO SCH ×2 (08:30→17:03)
[2022-10-09] MEDS: HEPARIN SOD 5,000 UNIT/0.5 ML VIAL SQ SCH ×2 (08:30→21:07)
[2022-10-09] MEDS: NEPHROCAPS PO SCH (08:31)
[2022-10-09] MEDS: hydrALAZINE HCL 25 MG TAB PO SCH ×3 (08:31→20:05)
[2022-10-09] MEDS: PANTOprazole 40 MG TAB PO SCH ×2 (08:31→20:05)
--- NOTE | 2022-10-09 08:59 | Nephrology Progress Note ---
Date of Service October 09, 2022 Assessment & Plan (1) End-stage renal disease on hemodialysis: Plan: * Outpatient HD Rx: TTS at [facility] [place] 4.5hr, 2K 2.5Ca Na 137, HCO3 38, F- 250 NR, 14 g needles, Qb500 Qd 800, EDW 116 Kg, heparin 3000 unit bolus + 2500 units q1 hr, L forearm AVF * Will provide HD tomorrow. HD RN notified to coordinate w/ Orthopedic schedule (2) Anemia: Plan: * Elevated ferritin and active infection preclude IV iron * ERI administered w/ HD yesterday (3) Hypertension: Plan: * On metoprolol succinate 25 mg BID and hydralazine 25 mg TID * BP is currently well controlled * Antihypertensives will be held prior to dialysis (4) Secondary hyperparathyroidism of renal origin: Plan: * PO4 improved to 3.5. Continue to hold Sevelamer (5) Abscess of right leg: Plan: * I&D R calf abscess 10/01/22. Culture + for MSSA * Will require second I&D tomorrow * Remains on ceftriaxone and Flagyl Admission and Anticipated Discharge Date Admission Date: September 30, 2022 Subjective Mr. Quinonez was evaluated in his hospital room this morning. He reports that Orthopedics plans further I&D of his R calf abscess tomorrow Review of Systems Constitutional: no fever Eyes: no problem reported Ear, Nose, Mouth, Throat: no problem reported Respiratory: no dyspnea Cardiovascular: no chest pain and no palpitations Gastrointestinal: no abdominal pain, no nausea, no vomiting and no diarrhea/loose stools Physical Exam Constitutional: not in distress and not overweight Eyes: PERRL, conjunctivae normal, anicteric sclerae ENMT: external ear and nose normal, oropharynx normal Neck: trachea midline, no thyromegaly Respiratory: normal respiratory effort, lungs clear to auscultation Cardiovascular: RRR, no murmur, no edema Extremities: + AV fistula (+ bruit) Gastrointestinal (Abdomen): normal bowel sounds, soft, nontender, no hepatosplenomegaly Neurologic: no focal motor deficits and not confused Speech / Cognition: normal speech Results & Data Vital Signs (Past 12 Hours) Vital Signs Temp Pulse Resp BP Pulse Ox O2 Del Method 10/09/22 07:52 36.4 C L 68 16 122/78 95 Room Air PG Care Time/CCT Total # of Minutes Spent Total Time Spent with Patient: Total time spent is greater than 50% in coordination of care (as documented) at patient's floor/unit and/or counseling patient: Coding Level of Care Code 40715 SUB INP/OBS CARE 3/50MIN Diagnoses End-stage renal disease on hemodialysis N18.6; Z99.2 Anemia D64.9 Anemia type: unspecified type Hypertension I10 Secondary hyperparathyroidism of renal origin N25.81 Abscess of right leg L02.415 (2) Anemia Anemia type: unspecified type Qualified Code(s): D64.9 - Anemia, unspecified
[2022-10-09] MEDS: oxyCODONE HCL IR 5 MG TAB (IMMEDIATE RELEASE) PO PRN ×2 (10:53→20:04)
[2022-10-09] MEDS: METOPROLOL SUCC 25MG EXT REL TAB PO SCH ×2 (11:51→20:05)
[2022-10-09] MEDS: cefTRIAXone SODIUM 2,000 MG in DEXTROSE 5% 50 ML IV SCH (11:51)
--- NOTE | 2022-10-09 17:31 | Hospitalist Progress Note ---
Date of Service October 09, 2022 Assessment & Plan (1) Abscess of right leg: Plan: 62-year-old man with history of end-stage renal disease, anemia, hypertension, DM2, PAD, HFmrEF who presented with right lower extremity swelling, admitted for management of RLE abscess. S/p I&D procedure (removed 400 mL of pus). Currently awaiting second I&D procedure for drainage. RLE abscess -- s/p I&D by Dr. German on 10/01 - Drainage: ~400ml purulent fluid expressed intraoperatively -- still expressing pus through 10/07 --> Once minimal drainage, proceed with wound vac - Cultures & sensitivities: growing mendes-sensitive Staph (MSSA) & Bacteroides - MRI R LE on 10/07/2022 showed abscess measuring 1.8 cm x 7.4 cm x 20 cm in gastrocnemius. * Continue ceftriaxone, Flagyl. Plan to seriously transition to cefdinir, metronidazole at discharge * Pain control: Oxycodone 2.5 mg as needed. Dilaudid at bedtime as needed * Continue encouraging use of AFO brace. * Podiatry: I&D procedure on 10/10/2022. N.p.o. midnight. Appreciate additional wound culture findings. * Dispo likely to inpatient rehab versus SNF. Will review with case management. ESRD on HD - followed inpatient by nephrology, home dialysis continued here @ //Sat - Nephrology following, appreciate insight/recommendations -- see HoTN below - Continue renal diet, sevelamer Supratherapeutic INR - INR hovering around upper-1 range during admission in setting of elevated TBili - Suspect mostly malnutrition, possibly part hepatic dysfunction as major culprit given INR improvement with single 10mg dose of Vitamin K - Trend INR Normocytic Anemia- chronic, stable - multifactorial between ESRD + malnutrition - stable on daily checks between 8-9 - appreciate nephrology assistance with Venofer and Mircera (Epo) q4wk HoTN -- in setting of known malnutrition - Concern for multiple HoTN episodes during dialysis sessions while here. - In setting of known ESRD and reports of poor PO intake at home, suspect malnutrition related process as major company driver. LV dysfunction and hepatic dysfunction possibly contributing to some degree. - Possibly hepatic contribution -- CTAP demonstrated hepatic nodularity with small ascites and pleural effusions -- elevated TBili noted, same with INR (though INR improved with single dose of Vitamin K) and mild depression in albumin. Await hepatitis serologies. Lower suspicion this is major company driver, but may be contributing - Appreciate RD consultation for nutritional assessment and recommendations - Hold antiHTNs prior to dialysis Protein-Calorie Malnutrition - In setting of multiple dgzek-wb-utmtarf conditions over >months - Appreciate RD consult. Will provide counselling while here, too. 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 Mixed systolic and diastolic CHF. Use IV fluids w/ caution. DM: A1c 4.7 on 06/2022. Per [facility], not managed with insulin. PAD: Per scanned vascular surgery report, had 07/29/22 RLE angiogram w/ right SFA and popliteal angioplasty. He had hospitalization during which he had RLE/Achilles tendon wound debridement. Continue home baby ASA and statin. FEN/GI: Dialysis, renal diet. N.p.o. at midnight. Code: full DVT prophylaxis: hep 5000 q12 Admission and Anticipated Discharge Date Admission Date: September 30, 2022 Supervising Physician Co-Signing Physician Notes I examined the patient, discussed case, and agree with decision making and plan documented by Dr. Victoria. Plan to return to OR tomorrow. Subjective No acute events overnight. Patient is aware that his I&D procedure is tomorrow. He has no acute concerns or complaints at this time. Review of Systems Review of Systems: All systems reviewed & are unremarkable except as noted in HPI & below Physical Exam Physical Exam: General: Tired and pale appearing 62-year old male who is alert, oriented, and is in NAD. HEENT: NCAT. - Eyes - Sclera are white, anicteric, and without injection. - Mouth - MMM - Neck - supple, no appreciable JVD Cardiac: Normal rate and regular rhythm; S1 and S2 present with no murmur detected Pulmonary: Good respiratory effort with symmetric expansion of the chest. No use of accessory muscles. Lungs were CTAB Abdominal: Normoactive bowel sounds. Abdomen was soft, nondistended, and non- tender to palpation. Extremities: Upper and lower extremities are warm and well perfused. RLE continues to drain when dressing is undone. Foul odor emitting from wound. No evidence of surrounding induration, or erythema suggesting cellulitis. Good distal pulses (dorsalis pedis). Results & Data Results & Data Vital Signs (Past 12 Hours) Vital Signs Temp Pulse Resp BP Pulse Ox O2 Del Method 10/09/22 09:00 Room Air 10/09/22 15:17 36.4 C L 71 16 131/76 99 Room Air 10/09/22 07:52 36.4 C L 68 16 122/78 95 Room Air Resident Activity Tracking Resident Involvement: Resident Care Provided Care Provided: Adult Hospital Medicine
[2022-10-09] MEDS: ATORVASTATIN 20 MG TAB PO SCH (20:05)
[2022-10-10] MEDS: HYDROmorphone INJ 0.5 MG/0.5 ML SYR IV PRN ×3 (00:52→23:09)
[2022-10-10] MEDS: metroNIDAZOLE 500 MG/100 ML BAG IV SCH ×3 (05:58→23:03)
[2022-10-10] MEDS ORDERED: SODIUM CHLORIDE 0.9% 1000ML 1,000 ML IV PRN (07:00)
--- NOTE | 2022-10-10 07:05 | Anesthesiology Consultation ---
Date of Service October 10, 2022 Assessment & Plan (1) Encounter for pre-operative examination: Chart Review Chart Review: Acceptable Risk for Surgery and Patient NOT seen in Pre Admission Testing Consults Requested none Additional Notes ESRD plan for HD on 10/10 per nephrology History Surgery Operation Date: 10/01/22 17:55 Proposed Procedures p Incision and Drainage right ankle(Right) - Conner German DPM, MS Operation Date: 10/10/22 07:00 Proposed Procedures p Right Posterior Leg Incision and Drainage Extremity, Washout, Debridement, Application of Wound Vac - Conner German DPM, MS Height/Weight Height: 6 ft 2 in Weight: 119.5 kg Allergies Allergy/AdvReac Type Severity Reaction Status Date / Time doxycycline Allergy Intermediate Rash Verified 09/30/22 17:43 cephalexin [From Keflex] AdvReac Intermediate ITCHING Verified 09/30/22 17:43 Medications Home Medications Medication Instructions Recorded Confirmed Last Taken aspirin 81 mg tablet,delayed 81 mg PO QAM #30 tabs 07/12/22 09/30/22 09/30/22 release atorvastatin 20 mg tablet 20 mg PO QPM #30 tabs 07/12/22 09/30/22 09/29/22 sevelamer HCl 800 mg tablet 2,400 mg PO TIDM #270 tabs 07/12/22 09/30/22 09/30/22 12:00 (Renagel) acetaminophen 325 mg tablet 650 mg PO Q4H PRN PAIN/FEVER 09/30/22 09/30/22 Unknown (Tylenol) amoxicillin 500 mg-potassium 1 tab PO QPM 09/30/22 09/30/22 Unknown clavulanate 125 mg tablet carboxymethylcellulose sodium 1 % 1 drp OPB QID 09/30/22 09/30/22 09/30/22 13:00 eye drops (Artificial Tears (carboxymethylcellulose)) diclofenac sodium 1 % topical gel 1 g topical QID PRN Pain 09/30/22 09/30/22 Unknown folic acid 1 mg tablet 1 mg PO QDL 09/30/22 09/30/22 09/30/22 gabapentin 100 mg capsule 100 mg PO QDL 09/30/22 09/30/22 09/30/22 hydralazine 25 mg tablet 25 mg PO TID 09/30/22 09/30/22 09/30/22 13:00 menthol 0.44 %-zinc oxide 20.6 % 1 applic topical BID PRN 09/30/22 09/30/22 Unknown topical ointment (Calmoseptine) SCARUM/BUTTOCKS NEEDED metoprolol succinate 25 mg 25 mg PO BID 09/30/22 09/30/22 09/30/22 11:30 tablet,extended release 24 hr multivitamin 1 tab PO DAILY 09/30/22 09/30/22 09/30/22 nystatin 100,000 unit/gram topical 1 applic topical BID 09/30/22 09/30/22 Unknown powder pantoprazole 40 mg tablet,delayed 40 mg PO AMHS 09/30/22 09/30/22 09/30/22 09:00 release polyethylene glycol 3350 17 gram 17 g PO BIDM 09/30/22 09/30/22 09/30/22 09:00 oral powder packet (Miralax) potassium chloride 20 mEq 20 meq PO QDL 09/30/22 09/30/22 09/30/22 tablet,extended release(part/cryst) silver sulfadiazine 1 % topical 1 applic topical TID 09/30/22 09/30/22 Unknown cream tramadol 50 mg tablet 50 mg PO Q6H PRN Pain 09/30/22 09/30/22 Unknown trazodone 50 mg tablet 50 mg PO HS 09/30/22 09/30/22 09/29/22 triamcinolone acetonide 0.1 % 1 applic topical BID 09/30/22 09/30/22 Unknown topical ointment Active Medications Generic Name Dose Route Start Last Admin Trade Name Rosie PRN Reason Stop Dose Admin Atorvastatin Calcium 20 mg 09/30/22 22:40 10/09/22 20:05 Atorvastatin 20 Mg Tab PO 10/30/22 22:39 20 mg QPM VIN Administration Heparin Sodium (Porcine) 5,000 units 10/05/22 21:00 10/09/22 21:07 Heparin Sod 5,000 Unit/0.5 Ml Vial SQ 11/04/22 20:59 Not Given Q12 VIN Hydralazine HCl 25 mg 10/01/22 09:00 10/09/22 20:05 Hydralazine Hcl 25 Mg Tab PO 10/31/22 08:59 25 mg TID VIN Administration Hydromorphone HCl 0.5 mg 10/02/22 06:12 10/10/22 00:52 Hydromorphone Inj 0.5 Mg/0.5 Ml Syr IV 10/16/22 06:11 0.5 mg Q4H PRN Administration Pain Metronidazole 500 mg in 100 mls @ 100 mls/hr 10/01/22 02:00 10/10/22 05:58 Flagyl IV 10/11/22 01:59 100 mls/hr Q8H VIN Administration Ceftriaxone Sodium 2,000 mg/ 70 mls @ 100 mls/hr 10/03/22 12:00 10/09/22 12:34 Dextrose IV 10/11/22 11:59 Infused Q24H VIN Infusion Protocol Metoprolol Succinate 25 mg 09/30/22 22:45 10/09/22 20:05 Metoprolol Succ 25mg Ext Rel Tab PO 10/30/22 22:44 25 mg BID@1200,2100 VIN Administration Oxycodone HCl 5 mg 10/03/22 16:13 10/09/22 20:04 Oxycodone Hcl Ir 5 Mg Tab (Immediate Release) PO 10/16/22 12:12 5 mg Q6H PRN Administration Pain Pantoprazole Sodium 40 mg 10/01/22 09:00 10/09/22 20:05 Pantoprazole 40 Mg Tab PO 10/31/22 08:59 40 mg BID VIN Administration Polyethylene Glycol 17 gm 10/01/22 08:00 10/09/22 17:03 Polyethylene (Miralax) 17 Gm Pack PO 10/31/22 07:59 Not Given BIDM VIN Vitamin B Complex/Folic Acid 1 cap 10/03/22 14:15 10/09/22 08:31 Nephrocaps PO 11/02/22 14:14 1 cap QAM VIN Administration NPO Date Last Intake of Fluids: 10/01/22 Time Last Intake of Fluids: 13:00 Last Intake of Fluids Comment: sips Date Last Intake of Solids: 09/30/22 Time Last Intake of Solids: 08:00 Past Medical History Medical History Acute blood loss anemia Acute kidney injury Amputated toe of left foot Amputated toe of right foot Anasarca Bilateral cellulitis of lower leg ESRD (end stage renal disease) on dialysis Gangrene Gangrene HTN (hypertension) Hyperparathyroidism due to end stage renal disease on dialysis Metabolic acidosis Nephrotic syndrome Obesity Osteomyelitis Proteinuria Past Family History Family History Other Diabetes Family history non-contributory Hypertension Past Surgical History Surgical History History of angioplasty of peripheral vessel S/P arteriovenous (AV) fistula creation Status post incision and drainage left foot wound Social History Smoking Status: Never smoker Do You Dip or Chew Tobacco: No Hx Alcohol Use: Yes Alcohol type: other alcohol intake frequency: holidays/special occasions only Hx Substance Use: No substance use type: does not use Physical Exam Vital Signs Last Vital Signs Temp 97.5 F L 10/10/22 05:55 Pulse 72 10/10/22 05:55 Resp 20 10/10/22 05:55 BP 132/81 10/10/22 05:55 Pulse Ox 100 10/10/22 05:55 O2 Del Method Room Air 10/10/22 05:55 O2 Flow Rate 1 10/07/22 07:40 Testing Laboratory Results 10/08/22 08:04 10/08/22 08:04 PT 14.0 Seconds (9.0-12.0) H 10/06/22 07:01 INR 1.3 (0.9-1.1) H 10/06/22 07:01 Hemoglobin A1c 5.2 % (4.5-5.6) 10/02/22 10:01 10/01/22 22:12 Gram Stain - Final Ankle,Right Aerobic and Anaerobic Culture - Final Bacteroides fragilis 09/30/22 15:55 Aerobic Blood Culture - Final Blood No growth in Aerobic bottle after 5 days. Anaerobic Blood Culture - Final 09/30/22 15:29 Aerobic Blood Culture - Final Blood No growth in Aerobic bottle after 5 days. Anaerobic Blood Culture - Final No growth in Anaerobic bottle after 5 days. 09/30/22 21:35 Gram Stain - Final Leg,Right Aerobic and Anaerobic Culture - Final Staphylococcus aureus Bacteroides fragilis 10/10/22 10/09/22 05:53 20:41 POC Glucose 103 H 101 H Electrocardiogram Date: 09/30/22 Findings: + NSR @ (83) Nonspecific ST and T wave abnormality Prolonged QT Echocardiogram Date: 12/07/22 EF: 35-40 RWMA: + hypokinetic Other Findings: + atrial enlargement (severe LA dilation) Valvular Disease: + no significant valvular disease; no MS
[2022-10-10] MEDS: POLYETHYLENE (MIRALAX) 17 GM PACK PO SCH ×2 (08:03→16:23)
[2022-10-10] MEDS: PANTOprazole 40 MG TAB PO SCH ×2 (08:04→20:55)
[2022-10-10] MEDS: hydrALAZINE HCL 25 MG TAB PO SCH ×3 (08:04→20:55)
[2022-10-10] MEDS: NEPHROCAPS PO SCH (08:04)
[2022-10-10 08:21] LABS: Basophils # (auto) 0.06 K/uL (0-0.2); Basophils % (auto) 0.8 %; Eosinophils # (auto) 0.21 K/uL (0-0.50); Eosinophils % (auto) 2.9 %; Hematocrit (blood only) 28.2 % (42.0-52.0); Hemoglobin 8.4 g/dl (14.0-18.0); Immature Granulocytes # (auto) 0.02 K/uL (0.01-0.20); Immature Granulocytes % (auto) 0.3 %; Lymphocytes # (auto) 1.34 K/uL (1.2-3.4); Lymphocytes % (auto) 18.4 %; Mean Corpuscular Hemoglobin 26.4 pg (25.0-34.0); Mean Corpuscular Hgb Conc 29.8 g/dL (32.0-36.0); Mean Corpuscular Volume 88.7 fL (80.0-100.0); Mean Platelet Volume 11.7 fL (9.4-12.4); Monocytes # (auto) 0.62 K/uL (0.11-0.59); Monocytes % (auto) 8.5 %; Neutrophils # (auto) 5.04 K/uL (1.40-6.50); Neutrophils % (auto) 69.1 %; Platelet Count 164 K/uL (130-400); RDW Coefficient of Variation 19.9 % (11.5-14.5); RDW Standard Deviation 63.6 fL (36.4-46.3); Red Blood Count 3.18 M/uL (4.70-6.10); White Blood Count 7.29 K/ul (4.8-10.8)
[2022-10-10 08:37] LABS: BUN Creatinine Ratio 9.7 (10-20); Creatinine Clr Calc Pharmacy 25.5 ml/min; Est GFR (African American) 16.5 ml/min; Est GFR (Non-African American) 14.2 ml/min; Magnesium 1.9 mg/dl (1.7-2.4); Phosphorus 3.5 mg/dl (2.5-4.9); Potassium 3.4 mmol/L (3.5-5.1)
--- NOTE | 2022-10-10 09:09 | Nephrology Progress Note ---
Date of Service October 10, 2022 Assessment & Plan (1) End-stage renal disease on hemodialysis: Plan: * Outpatient HD Rx: TTS at [facility] [place] 4.5hr, 2K 2.5Ca Na 137, HCO3 38, F- 250 NR, 14 g needles, Qb500 Qd 800, EDW 116 Kg, heparin 3000 unit bolus + 2500 units q1 hr, L forearm AVF * Will provide HD later this am. HD RN will coordinate w/ Orthopedic schedule (2) Anemia: Plan: * Elevated ferritin and active infection preclude IV iron * ERI administered w/ HD 10/08/22 (3) Hypertension: Plan: * On metoprolol succinate 25 mg BID and hydralazine 25 mg TID * BP is currently well controlled * Antihypertensives will be held prior to dialysis (4) Secondary hyperparathyroidism of renal origin: Plan: * PO4 improved to 3.5. Continue to hold Sevelamer (5) Abscess of right leg: Plan: * I&D R calf abscess 10/01/22. Culture + for MSSA * Will require second I&D this afternoon * Remains on ceftriaxone Admission and Anticipated Discharge Date Admission Date: September 30, 2022 Subjective Mr. Quinonez was evaluated in his hospital room this morning. He reports that Orthopedics plans further I&D of his R calf following HD today Review of Systems Constitutional: no fever Eyes: no problem reported Ear, Nose, Mouth, Throat: no problem reported Respiratory: no dyspnea Cardiovascular: no chest pain and no palpitations Gastrointestinal: no abdominal pain, no nausea, no vomiting and no diarrhea/loose stools Physical Exam Constitutional: not in distress and not overweight Eyes: PERRL, conjunctivae normal, anicteric sclerae ENMT: external ear and nose normal, oropharynx normal Neck: trachea midline, no thyromegaly Respiratory: normal respiratory effort, lungs clear to auscultation Cardiovascular: RRR, no murmur, no edema Extremities: + AV fistula (+ bruit) Gastrointestinal (Abdomen): normal bowel sounds, soft, nontender, no hepatosplenomegaly Neurologic: no focal motor deficits and not confused Speech / Cognition: normal speech Results & Data Vital Signs (Past 12 Hours) Vital Signs Temp Pulse Resp BP Pulse Ox O2 Del Method 10/10/22 08:04 36.8 C 70 18 136/80 98 Room Air 10/10/22 05:55 36.4 C L 72 20 132/81 100 Room Air Laboratory Results Laboratory Tests 10/10/22 10/10/22 07:59 07:59 WBC 7.29 Hgb 8.4 L Hct 28.2 L Plt Count 164 Sodium 137 Potassium 3.4 L Chloride 103 Carbon Dioxide 23 BUN 41 H Creatinine 4.24 H Glucose 93 PG Care Time/CCT Total # of Minutes Spent Total Time Spent with Patient: Total time spent is greater than 50% in coordination of care (as documented) at patient's floor/unit and/or counseling patient: Coding Level of Care Code 77501 SUB INP/OBS CARE 3/50MIN Diagnoses End-stage renal disease on hemodialysis N18.6; Z99.2 Anemia D64.9 Anemia type: unspecified type Hypertension I10 Secondary hyperparathyroidism of renal origin N25.81 Abscess of right leg L02.415 (2) Anemia Anemia type: unspecified type Qualified Code(s): D64.9 - Anemia, unspecified
[2022-10-10] MEDS: cefTRIAXone SODIUM 2,000 MG in DEXTROSE 5% 50 ML IV SCH (13:16)
[2022-10-10] MEDS: METOPROLOL SUCC 25MG EXT REL TAB PO SCH ×2 (13:17→20:55)
[2022-10-10] MEDS ORDERED: ONDANSETRON INJ 2 MG/ML 2 ML VIAL IV PRN ×2 (16:37→16:46)
[2022-10-10] MEDS ORDERED: ATROPINE SULFATE 0.1 MG/ML 10ML SYR IV PRN ×2 (16:37→16:46)
[2022-10-10] MEDS ORDERED: ePHEDrine sulfate 50 MG/ML AMP IV PRN ×2 (16:37→16:46)
[2022-10-10] MEDS ORDERED: PROPOFOL IV EMULSION 10 MG/ML 20 ML VIAL IV ONE (16:43)
[2022-10-10] MEDS ORDERED: ONDANSETRON INJ 2 MG/ML 2 ML VIAL ONE (16:43)
[2022-10-10] MEDS ORDERED: LIDOCAINE 2% MPF LOCAL 5 ML VIAL ONE (16:43)
[2022-10-10] MEDS ORDERED: fentaNYL citrate PF 100 MCG/2 ML VIAL ONE (16:44)
[2022-10-10] MEDS ORDERED: fentaNYL citrate PF 100 MCG/2 ML VIAL IV PRN (16:46)
--- NOTE | 2022-10-10 17:11 | History & Physical Bridge Note ---
Date of Service October 10, 2022 History & Physical Bridge Note I have examined the patient, reviewed the History & Physical and in the interval since the performance of the History & Physical I have noted the following changes of clinical significance: no changes noted
[2022-10-10] MEDS ORDERED: SUGAMMADEX SODIUM 200 MG/2 ML VIAL IV ONE (17:54)
[2022-10-10] MEDS ORDERED: PHENYLEPHRINE 100MCG/ML 5ML SYR ONE (18:15)
[2022-10-10] MEDS ORDERED: ePHEDrine sulfate 50 MG/ML SYR ONE (18:15)
--- NOTE | 2022-10-10 18:51 | Operative Report ---
Post Operative Report Pre & Post Diagnosis Operation Date: 10/10/22 07:00 <No data on this case meets the specified criteria> I identified the patient and participated in the time-out.: Yes Procedure Operation Date: 10/10/22 07:00 <No data on this case meets the specified criteria> Surgeon Conner German DPM, MS Assistant Track And Field Coach None Estimated Blood Loss 5 Findings Consistent with Post-Op Diagnosis Specimens Deep Culture Right posterior leg abscess Description of Procedure 1.) Incision and drainage, 2.) exploration of abscess, 3.) Debridement of wound, 4.) Application of negative pressure wound therapy ALL RIGHT LEG I attest to the content of the Intraoperative Record and any orders documented therein. Any exceptions are noted below.
[2022-10-10] MEDS: fentaNYL citrate PF 100 MCG/2 ML VIAL IV PRN ×3 (19:00→19:12)
--- NOTE | 2022-10-10 19:40 | Hospitalist Progress Note ---
Date of Service October 10, 2022 Assessment & Plan (1) Abscess of right leg: Plan: 62-year-old man with history of end-stage renal disease, anemia, hypertension, DM2, PAD, HFmrEF who presented with right lower extremity swelling, admitted for management of RLE abscess. S/p I&D procedure (removed 400 mL of pus). Currently awaiting second I&D procedure for drainage. RLE abscess -- s/p I&D by Dr. German on 10/01 - Drainage: ~400ml purulent fluid expressed intraoperatively -- still expressing pus through 10/07 --> Once minimal drainage, proceed with wound vac - Cultures & sensitivities: growing mendes-sensitive Staph (MSSA) & Bacteroides - MRI R LE on 10/07/2022 showed abscess measuring 1.8 cm x 7.4 cm x 20 cm in gastrocnemius. * Continue ceftriaxone, Flagyl. Plan to seriously transition to cefdinir, metronidazole at discharge * Pain control: Oxycodone 2.5 mg as needed. Dilaudid at bedtime as needed * Continue encouraging use of AFO brace. * Podiatry: I&D procedure on 10/10/2022. * Dispo likely to inpatient rehab versus SNF. Will review with case management. ESRD on HD - followed inpatient by nephrology, home dialysis continued here @ //Sat - Nephrology following, appreciate insight/recommendations -- see HoTN below - Continue renal diet, sevelamer Supratherapeutic INR - INR hovering around upper-1 range during admission in setting of elevated TBili - Suspect mostly malnutrition, possibly part hepatic dysfunction as major culprit given INR improvement with single 10mg dose of Vitamin K - Trend INR Normocytic Anemia- chronic, stable - multifactorial between ESRD + malnutrition - stable on daily checks between 8-9 - appreciate nephrology assistance with Venofer and Mircera (Epo) q4wk HoTN -- in setting of known malnutrition - Concern for multiple HoTN episodes during dialysis sessions while here. - In setting of known ESRD and reports of poor PO intake at home, suspect malnutrition related process as major corrugated fastener driver. LV dysfunction and hepatic dysfunction possibly contributing to some degree. - Possibly hepatic contribution -- CTAP demonstrated hepatic nodularity with small ascites and pleural effusions -- elevated TBili noted, same with INR (though INR improved with single dose of Vitamin K) and mild depression in albumin. Await hepatitis serologies. Lower suspicion this is major corrugated fastener driver, but may be contributing - Appreciate RD consultation for nutritional assessment and recommendations - Hold antiHTNs prior to dialysis Protein-Calorie Malnutrition - In setting of multiple [id number]-do-[id number] conditions over >months - Appreciate RD consult. Will provide counselling while here, too. 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 Mixed systolic and diastolic CHF. Use IV fluids w/ caution. DM: A1c 4.7 on 06/2022. Per Michaela Choudhury, not managed with insulin. PAD: Per scanned vascular surgery report, had 07/29/22 RLE angiogram w/ right SFA and popliteal angioplasty. He had hospitalization during which he had RLE/Achilles tendon wound debridement. Continue home baby ASA and statin. FEN/GI: Dialysis, renal diet. Code: full DVT prophylaxis: hep 5000 q12 Admission and Anticipated Discharge Date Admission Date: September 30, 2022 Supervising Physician Co-Signing Physician Notes Patient returned to OR today for second I&D of abscess in gastrocnemius RLE with placement of ammy drain. Saw patient prior to procedure, his pain was controlled, at that time he was very thirsty, patient did have dialysis earlier today. Will monitor closely in post operative period and eventually transition to PO antibiotics. I examined the patient, discussed case, and agree with decision making and plan documented by Dr. Victoria. Subjective No acute events overnight. On arrival, patient already undergoing dialysis. He reports discomfort with his back. He once had a air mattress during his previous stay at the hospital, which he really liked. If possible, he would like to have that again. Review of Systems Review of Systems: All systems reviewed & are unremarkable except as noted in HPI & below Physical Exam Physical Exam: General: Tired and pale appearing 62-year old male who is alert, oriented, and is in NAD. HEENT: NCAT. - Eyes - Sclera are white, anicteric, and without injection. - Mouth - MMM - Neck - supple, no appreciable JVD Cardiac: Normal rate and regular rhythm; S1 and S2 present with no murmur detected Pulmonary: Good respiratory effort with symmetric expansion of the chest. No use of accessory muscles. Lungs were CTAB Abdominal: Normoactive bowel sounds. Abdomen was soft, nondistended, and non- tender to palpation. Extremities: Upper and lower extremities are warm and well perfused. RLE ulcer covered in dressing, orthotic. Dressing appears soaked in purulent drainage. Good dorsalis pedis pulses. Results & Data Results & Data Vital Signs (Past 12 Hours) Vital Signs Temp Pulse Pulse Pulse Pulse Resp BP 10/10/22 19:25 36.3 C L 72 22 10/10/22 19:15 75 18 10/10/22 19:05 82 20 10/10/22 18:57 36.2 C L 83 16 10/10/22 16:33 36.6 C 78 18 10/10/22 16:22 10/10/22 12:55 36.6 C 77 10/10/22 12:30 74 124/68 10/10/22 13:14 36.4 C L 76 18 10/10/22 12:00 74 138/78 10/10/22 07:45 10/10/22 11:30 63 110/70 10/10/22 11:00 63 109/89 10/10/22 10:30 69 98/65 L 10/10/22 10:00 58 L 113/68 10/10/22 09:30 72 115/57 L 10/10/22 09:00 76 107/63 10/10/22 08:42 36.7 C 76 10/10/22 08:04 36.8 C 70 18 BP Pulse Ox O2 Del Method O2 Flow Rate 10/10/22 19:25 98/61 L 98 Nasal Cannula 2 10/10/22 19:15 93/55 L 98 Nasal Cannula 2 10/10/22 19:05 97/72 L 94 Nasal Cannula 2 10/10/22 18:57 93/72 L 95 Room Air 10/10/22 16:33 125/73 96 Room Air 10/10/22 16:22 120/71 10/10/22 12:55 148/85 H 10/10/22 12:30 10/10/22 13:14 185/90 H 99 Room Air 10/10/22 12:00 10/10/22 07:45 Room Air 10/10/22 11:30 10/10/22 11:00 10/10/22 10:30 10/10/22 10:00 10/10/22 09:30 10/10/22 09:00 10/10/22 08:42 10/10/22 08:04 136/80 98 Room Air Resident Activity Tracking Resident Involvement: Resident Care Provided Care Provided: Adult Hospital Medicine
[2022-10-10] MEDS ORDERED: ACETAMINOPHEN 325 MG TAB PO PRN (19:57)
[2022-10-10] MEDS: SILVER SULFADIAZINE 1% CR 50 GM JAR TOP SCH (20:47)
[2022-10-10] MEDS: HEPARIN SOD 5,000 UNIT/0.5 ML VIAL SQ SCH (20:54)
[2022-10-10] MEDS: TRIAMCINOLONE ACET 0.1% OINT 15 GM TUBE TOP SCH (20:54)
[2022-10-10] MEDS: traZODone HCL 50 MG TAB PO SCH (20:55)
[2022-10-10] MEDS: ATORVASTATIN 20 MG TAB PO SCH (20:55)
[2022-10-10] MEDS: oxyCODONE HCL IR 5 MG TAB (IMMEDIATE RELEASE) PO PRN (20:56)
[2022-10-10] MEDS: ARTIFICIAL TEARS OP SCH (20:57)
--- NOTE | 2022-10-10 21:00 | Post Operative Brief Note ---
Immediate Post Op Note v1 Date of Surgery October 10, 2022 Pre & Post Diagnosis Operation Date: 10/10/22 07:00 Pre-Op Diagnosis: right leg wound Post-Op Diagnosis: right leg wound I identified the patient and participated in the time-out.: Yes Procedure Operation Date: 10/10/22 07:00 Actual Procedures p Right Posterior Leg Incision and Drainage Extremity, Washout, Debridement, Application of Wound Vac(Right) - Conner German DPM, MS Surgeon Conner German DPM, MS Napping Machine Operator None Estimated Blood Loss 0 Findings Consistent with Post-Op Diagnosis Posterior leg wound with abscess Right Specimens Deep Culture posterior leg Right Drains Brad Drain
--- NOTE | 2022-10-10 21:16 | Anesthesiology Progress Note ---
Date of Service October 10, 2022 Anesthesia Post Procedure Vital Signs Vital Signs: Temp Pulse Pulse Pulse Pulse Resp BP 10/10/22 20:30 36.4 C L 74 16 10/10/22 19:50 36.4 C L 70 16 10/10/22 19:35 73 22 10/10/22 19:25 36.3 C L 72 22 10/10/22 19:15 75 18 10/10/22 19:05 82 20 10/10/22 18:57 36.2 C L 83 16 10/10/22 16:33 36.6 C 78 18 10/10/22 16:22 10/10/22 12:55 36.6 C 77 10/10/22 12:30 74 124/68 10/10/22 13:14 36.4 C L 76 18 10/10/22 12:00 74 138/78 10/10/22 07:45 10/10/22 11:30 63 110/70 10/10/22 11:00 63 109/89 10/10/22 10:30 69 98/65 L 10/10/22 10:00 58 L 113/68 10/10/22 09:30 72 115/57 L 10/10/22 09:00 76 107/63 10/10/22 08:42 36.7 C 76 10/10/22 08:04 36.8 C 70 18 10/10/22 05:55 36.4 C L 72 20 BP Pulse Ox O2 Del Method O2 Flow Rate 10/10/22 20:30 117/72 98 Nasal Cannula 2 10/10/22 19:50 135/84 98 Nasal Cannula 2 10/10/22 19:35 103/69 98 Nasal Cannula 2 10/10/22 19:25 98/61 L 98 Nasal Cannula 2 10/10/22 19:15 93/55 L 98 Nasal Cannula 2 10/10/22 19:05 97/72 L 94 Nasal Cannula 2 10/10/22 18:57 93/72 L 95 Room Air 10/10/22 16:33 125/73 96 Room Air 10/10/22 16:22 120/71 10/10/22 12:55 148/85 H 10/10/22 12:30 10/10/22 13:14 185/90 H 99 Room Air 10/10/22 12:00 10/10/22 07:45 Room Air 10/10/22 11:30 10/10/22 11:00 10/10/22 10:30 10/10/22 10:00 10/10/22 09:30 10/10/22 09:00 10/10/22 08:42 10/10/22 08:04 136/80 98 Room Air 10/10/22 05:55 132/81 100 Room Air Pain Intensity Right Leg: Pain Intensity: 7 Transfer of Care Handoff Completed per policy Notes Mental Status: alert / awake / arousable Patient Amnestic to Procedure: Yes Nausea / Vomiting: adequately controlled Pain: adequately controlled Airway Patency, RR, SpO2: stable & adequate BP & HR: stable & adequate Hydration State: stable & adequate Anesthetic Complications: no major complications apparent
[2022-10-11] MEDS: oxyCODONE HCL IR 5 MG TAB (IMMEDIATE RELEASE) PO PRN ×3 (04:11→22:52)
[2022-10-11] MEDS: HYDROmorphone INJ 0.5 MG/0.5 ML SYR IV PRN ×2 (06:37→16:01)
[2022-10-11 06:41] LABS: Hematocrit (blood only) 28.3 % (42.0-52.0); Hemoglobin 8.7 g/dl (14.0-18.0); Mean Corpuscular Hgb Conc 30.7 g/dL (32.0-36.0); Mean Corpuscular Volume 87.9 fL (80.0-100.0); Mean Platelet Volume 11.7 fL (9.4-12.4); Platelet Count 183 K/uL (130-400); RDW Coefficient of Variation 20.4 % (11.5-14.5); RDW Standard Deviation 64.6 fL (36.4-46.3); Red Blood Count 3.22 M/uL (4.70-6.10); White Blood Count 6.63 K/ul (4.8-10.8)
[2022-10-11 07:25] LABS: BUN Creatinine Ratio 7.7 (10-20); Calcium 9.1 mg/dl (8.6-10.3); Creatinine Clr Calc Pharmacy 32.1 ml/min; Est GFR (African American) 21.8 ml/min; Est GFR (Non-African American) 18.8 ml/min; Phosphorus 3.4 mg/dl (2.5-4.9); Potassium 3.1 mmol/L (3.5-5.1)
[2022-10-11] MEDS: POLYETHYLENE (MIRALAX) 17 GM PACK PO SCH ×2 (08:07→16:01)
[2022-10-11] MEDS: ARTIFICIAL TEARS OP SCH ×4 (08:08→21:09)
[2022-10-11] MEDS ORDERED: POTASSIUM CHLORIDE CRTAB 20 MEQ TABCR PO STA (08:18)
--- NOTE | 2022-10-11 08:18 | Hospitalist Progress Note ---
Date of Service October 11, 2022 Assessment & Plan (1) Abscess of right leg: Plan: 62-year-old man with history of end-stage renal disease, anemia, hypertension, DM2, PAD, HFmrEF who presented with right lower extremity swelling, admitted for management of RLE abscess. S/p I&D x2. RLE abscess -- s/p I&D by Dr. German on 10/01 and 10/10 - Drainage: ~400ml purulent fluid expressed intraoperatively -- still expressing pus through 10/07 --> Once minimal drainage, proceed with wound vac - Cultures & sensitivities: growing mendes-sensitive Staph (MSSA) & Bacteroides - MRI R LE on 10/07/2022 showed abscess measuring 1.8 cm x 7.4 cm x 20 cm in gastrocnemius. * Continue ceftriaxone, Flagyl. Plan to seriously transition to cefdinir, metronidazole at discharge * Pain control: Oxycodone 2.5 mg as needed. Dilaudid at bedtime as needed * Continue encouraging use of AFO brace. * Podiatry: I&D procedure on 10/10/2022. * Dispo likely to inpatient rehab versus SNF. Will review with case management. --- Patient s/p second debridement 10/10 and feeling well post-op, non-viable tissue debrided and wound vac was placed, pain controlled --- Appropriate perfusion noted --- Patient will likely benefit from inpatient rehab vs SNF, PT/OT ordered ESRD on HD - followed inpatient by nephrology, home dialysis continued here @ T[facility]Sat - Nephrology following, appreciate insight/recommendations -- see HoTN below - Continue renal diet, sevelamer --- Anticipate dialysis tomorrow (per Nephrology) Supratherapeutic INR - INR hovering around upper-1 range during admission in setting of elevated TBili - Suspect mostly malnutrition, possibly part hepatic dysfunction as major culprit given INR improvement with single 10mg dose of Vitamin K - Trend INR Normocytic Anemia- chronic, stable - multifactorial between ESRD + malnutrition - stable on daily checks between 8-9 - appreciate nephrology assistance with Venofer and Mircera (Epo) q4wk --- Hgb low, but stable, Nephrology following closely (appreciate recommendations) HoTN -- in setting of known malnutrition - Concern for multiple HoTN episodes during dialysis sessions while here. 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 LV dysfunction and hepatic dysfunction possibly contributing to some degree. - Possibly hepatic contribution -- CTAP demonstrated hepatic nodularity with small ascites and pleural effusions -- elevated TBili noted, same with INR (though INR improved with single dose of Vitamin K) and mild depression in albumin. Await hepatitis serologies. 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 Will provide counselling while here, too. 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 Mixed systolic and diastolic CHF. Use IV fluids w/ caution. DM: A1c 4.7 on 06/2022. Per [facility], not managed with insulin. PAD: Per scanned vascular surgery report, had 07/29/22 RLE angiogram w/ right SFA and popliteal angioplasty. He had hospitalization during which he had RLE/Achilles tendon wound debridement. Continue home baby ASA and statin. FEN/GI: Dialysis, renal diet. Code: Full DVT prophylaxis: Heparin Dispo: [facility] vs Inpatient Rehab vs SNF (2) Dialysis patient: (3) Anemia: (4) History of below knee amputation: (5) Heart failure with mid-range ejection fraction: (6) Physical deconditioning: (7) PAD (peripheral artery disease): (8) Diabetes: (9) End-stage renal disease on hemodialysis: (10) Hypertension: (11) Obesity: (12) Anemia due to chronic kidney disease: Admission and Anticipated Discharge Date Admission Date: September 30, 2022 Supervising Physician Co-Signing Physician Notes I personally examined the patient and verified all dhillon points of history and exam, discussed case, and agree with decision making and plan documented by Dr. Ventura. Subjective 10/11/22: Patient was resting comfortably in bed upon arrival. Patient notes that he is concerned about arm weakness that is somewhat chronic, but has acutely worsened. He denies any pain or recent injury. Patient notes that his leg pain is controlled. He is not experiencing any fevers or chills. He denies any chest pain, dyspnea, headaches, or abdominal pain. Denies any bowel/bladder changes. Review of Systems Review of Systems: as per HPI Physical Exam Physical Exam: General: NAD, alert, conversive Resp: Non-labored, no wheezing, rhonchi, or rales, CTAB Cardiac: RRR, normal S1/S2, no MRG, no LE edema or JVD GI: Non-distended, no TTP, normoactive bowel sounds RLE: Remains wrapped with surgical bandages, boot intact, capillary refill < 3 s, appropriate toe movement, no surrounding erythema or purulence LLE: S/p BKA Results & Data Results & Data Vital Signs (Past 12 Hours) Vital Signs Temp Pulse Pulse Resp BP Pulse Ox O2 Del Method 10/11/22 03:12 36.6 C 86 20 131/89 100 Nasal Cannula 10/10/22 23:00 36.5 C 81 16 134/90 95 Room Air 10/10/22 22:17 36.4 C L 81 20 136/81 100 Nasal Cannula 10/10/22 21:00 36.5 C 71 16 131/84 98 Nasal Cannula 10/10/22 20:30 36.4 C L 74 16 117/72 98 Nasal Cannula O2 Flow Rate 10/11/22 03:12 1 10/10/22 23:00 10/10/22 22:17 1 10/10/22 21:00 2 10/10/22 20:30 2 Resident Activity Tracking Resident Involvement: Resident Care Provided Care Provided: Adult Hospital Medicine (3) Anemia Anemia type: unspecified type Qualified Code(s): D64.9 - Anemia, unspecified (4) History of below knee amputation Laterality: left Qualified Code(s): Z89.512 - Acquired absence of left leg below knee (12) Anemia due to chronic kidney disease Chronic kidney disease stage: stage 5, not on chronic dialysis Qualified Code(s): N18.5 - Chronic kidney disease, stage 5; D63.1 - Anemia in chronic kidney disease
[2022-10-11] MEDS: ASPIRIN 81 MG ECTAB PO SCH (08:19)
[2022-10-11] MEDS: HEPARIN SOD 5,000 UNIT/0.5 ML VIAL SQ SCH ×3 (08:20→21:15)
[2022-10-11] MEDS: hydrALAZINE HCL 25 MG TAB PO SCH ×3 (08:22→21:08)
[2022-10-11] MEDS: NEPHROCAPS PO SCH (08:23)
[2022-10-11] MEDS: PANTOprazole 40 MG TAB PO SCH ×2 (08:23→21:09)
[2022-10-11] MEDS: SILVER SULFADIAZINE 1% CR 50 GM JAR TOP SCH ×4 (08:33→21:18)
--- NOTE | 2022-10-11 08:56 | Nephrology Progress Note ---
Date of Service October 11, 2022 Assessment & Plan (1) End-stage renal disease on hemodialysis: Plan: * Outpatient HD Rx: TTS at [facility] [place] 4.5hr, 2K 2.5Ca Na 137, HCO3 38, F- 250 NR, 14 g needles, Qb500 Qd 800, EDW 116 Kg, heparin 3000 unit bolus + 2500 units q1 hr, L forearm AVF * Volume status and electrolyte balance are acceptable. Will plan next HD for am (2) Anemia: Plan: * Elevated ferritin and active infection preclude IV iron * ERI administered w/ HD 10/08/22 (3) Hypertension: Plan: * On metoprolol succinate 25 mg BID and hydralazine 25 mg TID * BP is currently well controlled * Antihypertensives will be held prior to dialysis (4) Secondary hyperparathyroidism of renal origin: Plan: * PO4 improved to 3.5. Continue to hold Sevelamer (5) Abscess of right leg: Plan: * I&D R calf abscess 10/01/22 and 10/10/22. Culture + for MSSA * Completed 8 days ceftriaxone therapy * Has wound vac in place Admission and Anticipated Discharge Date Admission Date: September 30, 2022 Subjective Mr. Quinonez was evaluated in his hospital room this morning. He c/o arm weakn ess and requests PT evaluation for strengthening Review of Systems Constitutional: no fever Eyes: no problem reported Ear, Nose, Mouth, Throat: no problem reported Respiratory: no dyspnea Cardiovascular: no chest pain and no palpitations Gastrointestinal: no abdominal pain, no nausea, no vomiting and no diarrhea/loose stools Physical Exam Constitutional: not in distress and not overweight Eyes: PERRL, conjunctivae normal, anicteric sclerae ENMT: external ear and nose normal, oropharynx normal Neck: trachea midline, no thyromegaly Respiratory: normal respiratory effort, lungs clear to auscultation Cardiovascular: RRR, no murmur, no edema Extremities: + AV fistula (+ bruit) Gastrointestinal (Abdomen): normal bowel sounds, soft, nontender, no hepatosplenomegaly Neurologic: no focal motor deficits and not confused Speech / Cognition: normal speech Results & Data Vital Signs (Past 12 Hours) Vital Signs Temp Pulse Pulse Pulse Resp BP Pulse Ox 10/11/22 08:37 36.5 C 80 17 138/72 100 10/11/22 03:12 36.6 C 86 20 131/89 100 03/23/23 23:00 36.5 C 81 16 134/90 95 10/10/22 22:17 36.4 C L 81 20 136/81 100 10/10/22 21:00 36.5 C 71 16 131/84 98 O2 Del Method O2 Flow Rate 10/11/22 08:37 Nasal Cannula 10/11/22 03:12 Nasal Cannula 1 10/10/22 23:00 Room Air 10/10/22 22:17 Nasal Cannula 1 10/10/22 21:00 Nasal Cannula 2 Laboratory Results Laboratory Tests 10/11/22 10/11/22 06:20 06:20 WBC 6.63 Hgb 8.7 L Hct 28.3 L Plt Count 183 Sodium 138 Potassium 3.1 L Chloride 103 Carbon Dioxide 28 BUN 26 H Creatinine 3.36 H D Glucose 96 Calcium 9.1 Phosphorus 3.4 PG Care Time/CCT Total # of Minutes Spent Total Time Spent with Patient: Total time spent is greater than 50% in coordination of care (as documented) at patient's floor/unit and/or counseling patient: Coding Level of Care Code 93078 SUB INP/OBS CARE 3/50MIN Diagnoses End-stage renal disease on hemodialysis N18.6; Z99.2 Anemia D64.9 Anemia type: unspecified type Hypertension I10 Secondary hyperparathyroidism of renal origin N25.81 Abscess of right leg L02.415 (2) Anemia Anemia type: unspecified type Qualified Code(s): D64.9 - Anemia, unspecified
[2022-10-11] MEDS: TRIAMCINOLONE ACET 0.1% OINT 15 GM TUBE TOP SCH ×3 (09:57→21:18)
[2022-10-11] MEDS: METOPROLOL SUCC 25MG EXT REL TAB PO SCH ×2 (11:49→21:09)
[2022-10-11] MEDS: POTASSIUM CHLORIDE CRTAB 20 MEQ TABCR PO SCH (11:50)
[2022-10-11] MEDS: GABAPENTIN 100 MG CAP PO SCH (11:51)
[2022-10-11] MEDS: traZODone HCL 50 MG TAB PO SCH (21:08)
[2022-10-11] MEDS: ATORVASTATIN 20 MG TAB PO SCH (21:08)
[2022-10-12] MEDS: HYDROmorphone INJ 0.5 MG/0.5 ML SYR IV PRN (04:50)
[2022-10-12] MEDS ORDERED: SODIUM CHLORIDE 0.9% 1000ML 1,000 ML IV PRN (07:00)
[2022-10-12] MEDS ORDERED: HEPARIN SOD (PORCINE) 1000 UNIT/ML IV ONE (07:00)
--- NOTE | 2022-10-12 07:18 | Hospitalist Progress Note ---
Date of Service October 12, 2022 Assessment & Plan (1) Abscess of right leg: Plan: 62 y/o male w/ PMHx of ESRD on [facility] dialysis, anemia, hypertension, DM2, PAD, HFmrEF who presented with right lower extremity swelling, admitted for management of RLE abscess. RLE abscess: s/p I&D 10/01 and 10/10 - MRI RLE on 10/07/2022 showed abscess measuring 1.8 cm x 7.4 cm x 20 cm w/ percutaneous drain of the gastrocnemius. - 400ml purulent fluid expressed intraoperatively and on subsequent days - Wound vac in place. Dispo plan: [facility] waiting on outpatient wound vac to arrive. - 09/30 wound culture w/ rare amounts of MSSA and moderate Bacteroides fragilis (no sensitivities). 10/01 wound culture w/ moderate Bacteroides fragilis. - 10/10 gram stain w/ rare gram pos cocci, no growth to date. 09/30 blood culture w/o growth. - Continue ceftriaxone 2g daily and Flagyl q8h, appropriate for ESRD on dialysis. Temporary interruption on 10/11. Continue ceftriaxone 2g, Flagyl. Plan to transition to PO cefdinir+Flagyl at discharge - Pain control w/ prn Tylenol. Reducing prn oxycodone per renal adjustment to 2.5mg q8h prn for 7-10 pain. Discontinue prn Dilaudid. - Continue encouraging use of AFO brace. End stage renal disease - Home dialysis continued here [facility] (was [facility] schedule prior to usp). Hold AM antihypertensives on dialysis days. Episodic hypotension during noted. - Neprhology following. Renally dose medications for <10 egfr. - No lab draws in LUE - Sevelamer held since 10/05 for hypophos of 1.3 on 10/04/22, since resolved. Protein-calorie malnutrition - Nutrition consulted. Continue Nephrocaps. Dietary recommendations provided. Will liberalize diet by removing HH, DM2 qualifiers, but will keep dialysis renal. Hypertension - Continue metoprolol succinate 25 mg PO BID and hydralazine 25 mg PO TID Normocytic anemia: chronic - multifactorial: ESRD, malnutrition - stable at low 8s - appreciate nephrology assistance with Venofer and Mircera (Epo) q4wk Mixed systolic and diastolic congestive heart failure -06/2022 echo w/ EF 35-40% (see paper chart). Mixed systolic and diastolic CHF. Use IV fluids w/ caution. Supratherapeutic INR - 1.8 on 10/04/22, since decreased to 1.3 on subsequent days, will follow. Per chart review, did not receive vitamin K. - Considered malnutrition, hepatic dysfunction Diabetes mellitus - 5.2 on 10/02/22. Not on medication. Check BSG achs. Peripheral artery disease - Per scanned vascular surgery report, had 07/29/22 RLE angiogram w/ right SFA and popliteal angioplasty. He had hospitalization during which he had RLE/Achilles tendon wound debridement. Continue home baby ASA and statin. - 10/01/22 vascular consult: No indications for vascular intervention. diet: dialysis renal ppx: sq heparin 5000u q12h code: full dispo: med surg (2) Dialysis patient: (3) Anemia: (4) History of below knee amputation: (5) Physical deconditioning: (6) PAD (peripheral artery disease): (7) Diabetes: (8) End-stage renal disease on hemodialysis: (9) Hypertension: (10) Obesity: (11) Anemia due to chronic kidney disease: (12) Systolic and diastolic CHF, chronic: Admission and Anticipated Discharge Date Admission Date: September 30, 2022 Supervising Physician Co-Signing Physician Notes I personally examined the patient and verified all dhillon points of history and exam, discussed case, and agree with decision making and plan documented by Dr. Baugh. Subjective No current pain. No cp, sob, fever. Didn't sleep well. Review of Systems Review of Systems: All systems reviewed & are unremarkable except as noted in HPI & below Physical Exam Physical Exam: General: Grossly A&O. NAD. Cooperative. HEENT: Atraumatic, normocephalic. Pulm: RLL w/ insp crackles. No accessory muscle use. Cardiac: RRR, -mrg. Radial pulses intact and symmetrical. Abdominal: Nontender, nondistended, soft. Integ: RLE w/ wound vac and bandaged. Wound vac mostly empty. Foam at bottom of wound vac container partially soiled. Results & Data Results & Data Vital Signs (Past 12 Hours) Vital Signs Temp Pulse Resp BP Pulse Ox O2 Del Method 10/11/22 22:40 36.5 C 72 18 113/79 98 Room Air Resident Activity Tracking Resident Involvement: Resident Care Provided Care Provided: Adult Hospital Medicine (3) Anemia Anemia type: unspecified type Qualified Code(s): D64.9 - Anemia, unspecified (4) History of below knee amputation Laterality: left Qualified Code(s): Z89.512 - Acquired absence of left leg below knee (11) Anemia due to chronic kidney disease Chronic kidney disease stage: stage 5, not on chronic dialysis Qualified Code(s): N18.5 - Chronic kidney disease, stage 5; D63.1 - Anemia in chronic kidney disease
[2022-10-12 08:27] LABS: Hemoglobin 8.2 g/dl (14.0-18.0); Mean Corpuscular Hemoglobin 26.5 pg (25.0-34.0); Mean Corpuscular Hgb Conc 29.3 g/dL (32.0-36.0); Mean Corpuscular Volume 90.3 fL (80.0-100.0); Mean Platelet Volume 11.5 fL (9.4-12.4); Platelet Count 187 K/uL (130-400); RDW Coefficient of Variation 20.2 % (11.5-14.5); RDW Standard Deviation 64.7 fL (36.4-46.3); White Blood Count 6.13 K/ul (4.8-10.8)
[2022-10-12 08:39] LABS: BUN Creatinine Ratio 7.4 (10-20); Creatinine Clr Calc Pharmacy 25.8 ml/min; Est GFR (African American) 16.7 ml/min; Est GFR (Non-African American) 14.4 ml/min
[2022-10-12] MEDS: POLYETHYLENE (MIRALAX) 17 GM PACK PO SCH ×2 (08:39→16:15)
[2022-10-12] MEDS: SILVER SULFADIAZINE 1% CR 50 GM JAR TOP SCH ×3 (08:40→21:22)
[2022-10-12] MEDS: ARTIFICIAL TEARS OP SCH ×4 (08:40→21:21)
[2022-10-12] MEDS: TRIAMCINOLONE ACET 0.1% OINT 15 GM TUBE TOP SCH ×2 (08:40→21:22)
[2022-10-12] MEDS: hydrALAZINE HCL 25 MG TAB PO SCH ×3 (08:43→21:20)
[2022-10-12] MEDS: HEPARIN SOD 5,000 UNIT/0.5 ML VIAL SQ SCH ×2 (08:44→21:22)
[2022-10-12] MEDS: ASPIRIN 81 MG ECTAB PO SCH (08:47)
[2022-10-12] MEDS: NEPHROCAPS PO SCH (08:47)
[2022-10-12] MEDS: PANTOprazole 40 MG TAB PO SCH ×2 (08:47→21:21)
[2022-10-12 10:19] LABS: Magnesium 1.9 mg/dl (1.7-2.4)
[2022-10-12] MEDS: POTASSIUM CHLORIDE CRTAB 20 MEQ TABCR PO SCH (12:17)
[2022-10-12] MEDS: METOPROLOL SUCC 25MG EXT REL TAB PO SCH ×2 (12:17→21:21)
[2022-10-12] MEDS: GABAPENTIN 100 MG CAP PO SCH (12:17)
[2022-10-12] MEDS: HEPARIN SOD (PORCINE) 1000 UNIT/ML IV SCH ×2 (12:17→15:02)
--- NOTE | 2022-10-12 12:38 | Nephrology Progress Note ---
Date of Service October 12, 2022 Assessment & Plan (1) End-stage renal disease on hemodialysis: (2) PAD (peripheral artery disease): (3) Abscess of right leg: (4) Secondary hyperparathyroidism of renal origin: (5) Anemia due to chronic kidney disease: Plan 62 yo m with end-stage renal disease secondary to diabetic nephropathy, has been on dialysis Friday, Friday, Friday at [facility] [place]. Has history of significant peripheral vascular disease, right lower extremity ulcer and osteomyelitis requiring multiple hospitalization over last few months. Admitted to the hospital on 10/01 with right leg abscess. Had incision and drainage done currently has wound VAC in place. --Dialysis today for 4 hours, aim for 2 L UF as blood pressure tolerated, blood pressure is already relatively low at the beginning of dialysis. --Left arm nephrology precaution, dose medications for EGFR less than 10 --continue on Nephrocaps and phosphate binder --Epogen with next HD Will follow Admission and Anticipated Discharge Date Admission Date: September 30, 2022 Joseline Esteves was seen and evaluated this morning during dialysis. He denies shortness of breath or chest pain. Blood pressure was relatively low but he was asymptomatic. Has wound VAC in right leg without much drainage. Review of Systems Review of Systems: detailed review of system was otherwise unremarkable. Physical Exam Constitutional: WD/WN, vitals as above + ill appearing; no acute distress Eyes: + anicteric sclerae ENMT: Ears: no hearing impairment Respiratory: Auscultation: lungs clear to auscultation bilaterally Cardiovascular: Rate/Rhythm: regular rate and regular rhythm Heart Sounds: normal S1 and normal S2 Extremities: + AV fistula (with + thrill and Bruit) Musculoskeletal: wound vac in rt leg Skin: + lesion, + ulcer, + skin atrophy and + erythema Neurologic: no focal motor deficits Psychiatric: Orientation: alert and oriented x 3 Results & Data Vital Signs (Past 12 Hours) Vital Signs Temp Pulse Pulse Pulse Resp BP BP 10/12/22 12:30 70 94/57 L 10/12/22 12:00 67 105/54 L 10/12/22 11:30 67 105/61 10/12/22 11:00 69 98/67 L 10/12/22 10:30 71 100/58 L 10/12/22 10:27 72 100/61 10/12/22 10:19 36.4 C L 72 03/25/23 07:38 36.4 C L 68 16 132/66 Pulse Ox O2 Del Method 10/12/22 12:30 10/12/22 12:00 10/12/22 11:30 10/12/22 11:00 10/12/22 10:30 10/12/22 10:27 10/12/22 10:19 10/12/22 07:38 98 Room Air PG Care Time/CCT Total # of Minutes Spent Total Time Spent with Patient: Total time spent is greater than 50% in coordination of care (as documented) at patient's floor/unit and/or counseling patient: Coding Level of Care Code 94123 SUB INP/OBS CARE 3/50MIN Diagnoses End-stage renal disease on hemodialysis N18.6; Z99.2 PAD (peripheral artery disease) I73.9 Abscess of right leg L02.415 Secondary hyperparathyroidism of renal origin N25.81 Anemia due to chronic kidney disease N18.5; D63.1 Chronic kidney disease stage: stage 5, not on chronic dialysis (5) Anemia due to chronic kidney disease Chronic kidney disease stage: stage 5, not on chronic dialysis Qualified Code(s): N18.5 - Chronic kidney disease, stage 5; D63.1 - Anemia in chronic kidney disease
[2022-10-12] MEDS: cefTRIAXone SODIUM 2,000 MG in DEXTROSE 5% 50 ML IV SCH (15:04)
[2022-10-12] MEDS: metroNIDAZOLE 500 MG/100 ML BAG IV SCH ×2 (15:49→21:21)
[2022-10-12] MEDS: oxyCODONE HCL IR 5 MG TAB (IMMEDIATE RELEASE) PO PRN (15:50)
[2022-10-12] MEDS: traZODone HCL 50 MG TAB PO SCH (21:20)
[2022-10-12] MEDS: ATORVASTATIN 20 MG TAB PO SCH (21:21)
--- NOTE | 2022-10-12 21:43 | Orthopedic Progress Note ---
Date of Service October 12, 2022 Assessment & Plan (1) Open leg wound: Plan: Patient seen, evaluated and treated. Dressing clean, dry, and intact. Wound Vac running 125mmHg continuous. Plan for Vac change Friday evening 10/13/22. Admission and Anticipated Discharge Date Admission Date: September 30, 2022 Subjective Patient seen at beds status post Day #1 I&D with application of wound vac RLE. Wound vac intact and running. Patient has no complaints and is resting comfortably. Review of Systems Review of Systems: All systems reviewed & are unremarkable except as noted in HPI & below Physical Exam Constitutional: WD/WN, vitals as above cooperative and comfortable Eyes: normal accommodation Respiratory: normal respiratory effort Cardiovascular: Rate/Rhythm: regular rate and regular rhythm Psychiatric: Orientation: alert and oriented x 3 Results & Data Vital Signs (Past 12 Hours) Vital Signs Temp Pulse Pulse Resp BP BP Pulse Ox 10/12/22 20:46 36.6 C 76 18 143/83 H 97 10/12/22 14:55 36.6 C 73 114/65 10/12/22 14:30 115/66 10/12/22 15:07 36.6 C 76 16 117/76 98 10/12/22 14:00 78 108/54 L 10/12/22 13:30 76 127/76 10/12/22 13:00 74 103/44 L 10/12/22 12:30 70 94/57 L 10/12/22 12:00 67 105/54 L 10/12/22 11:30 67 105/61 10/12/22 11:00 69 98/67 L 10/12/22 10:30 71 100/58 L 10/12/22 10:27 72 100/61 10/12/22 10:19 36.4 C L 72 O2 Del Method 10/12/22 20:46 Room Air 10/12/22 14:55 10/12/22 14:30 10/12/22 15:07 Room Air 10/12/22 14:00 10/12/22 13:30 10/12/22 13:00 10/12/22 12:30 10/12/22 12:00 10/12/22 11:30 10/12/22 11:00 10/12/22 10:30 10/12/22 10:27 10/12/22 10:19
[2022-10-13] MEDS: oxyCODONE HCL IR 5 MG TAB (IMMEDIATE RELEASE) PO PRN (02:36)
[2022-10-13] MEDS: metroNIDAZOLE 500 MG/100 ML BAG IV SCH ×3 (04:33→21:23)
--- NOTE | 2022-10-13 07:37 | Hospitalist Progress Note ---
Date of Service October 13, 2022 Assessment & Plan (1) Abscess of right leg: Plan: 62 y/o male w/ PMHx of ESRD on TuThSat dialysis, anemia, hypertension, DM2, PAD, HFmrEF who presented with right lower extremity swelling, admitted for management of RLE abscess. RLE abscess: s/p I&D 10/01 and 10/10 - MRI RLE on 10/07/2022 showed abscess measuring 1.8 cm x 7.4 cm x 20 cm w/ percutaneous drain of the gastrocnemius. - 400ml purulent fluid expressed intraoperatively and on subsequent days - Wound vac in place, with possible wound vac change later today per Ortho - 09/30 wound culture w/ rare amounts of MSSA and moderate Bacteroides fragilis (no sensitivities). 10/01 wound culture w/ moderate Bacteroides fragilis. - 10/10 gram stain w/ rare gram pos cocci, no growth to date. 09/30 blood culture w/o growth. - Continue ceftriaxone 2g daily and Flagyl q8h, appropriate for ESRD on dialysis. Temporary interruption on 10/11. Continue ceftriaxone 2g, Flagyl. Plan to transition to PO cefdinir+Flagyl at discharge if necessary --> abx duration to be determined following wound vac change (per Ortho) which will hopefully be done today - Pain control w/ prn Tylenol. Reducing prn oxycodone per renal adjustment to 2.5mg q8h prn for moderate pain. Re-started PRN Dilaudid 0.5mg at reduced frequency (Q8H) for severe pain - Continue encouraging use of AFO brace. - Dispo plan: [facility] waiting on outpatient wound vac to arrive. End stage renal disease - Home dialysis continued here [facility] (was [facility] schedule prior to correction). Hold AM antihypertensives on dialysis days. Episodic hypotension during noted. - Nephrology following - Renally dose medications for <10 egfr. - No lab draws in LUE - Sevelamer held since 10/05 for hypophos of 1.3 on 10/04/22, since resolved. Protein-calorie malnutrition - Nutrition consulted. Continue Nephrocaps. Dietary recommendations provided. Will liberalize diet by removing HH, DM2 qualifiers, but will keep dialysis renal. Hypertension - Continue metoprolol succinate 25 mg PO BID and hydralazine 25 mg PO TID Normocytic anemia: chronic - multifactorial: ESRD, malnutrition - stable at low 8s - appreciate nephrology assistance with Venofer and Mircera (Epo) q4wk Mixed systolic and diastolic congestive heart failure -06/2022 echo w/ EF 35-40% (see paper chart). Mixed systolic and diastolic CHF. Use IV fluids w/ caution. Diabetes mellitus - 5.2 on 10/02/22. Not on medication. Check BSG achs. Peripheral artery disease - Per scanned vascular surgery report, had 07/29/22 RLE angiogram w/ right SFA and popliteal angioplasty. He had hospitalization during which he had RLE/Achilles tendon wound debridement. Continue home baby ASA and statin. - 10/01/22 vascular consult: No indications for vascular intervention. diet: dialysis renal ppx: sq heparin 5000u q12h code: full dispo: med surg (2) Dialysis patient: (3) Anemia: (4) History of below knee amputation: (5) Physical deconditioning: (6) PAD (peripheral artery disease): (7) Diabetes: (8) End-stage renal disease on hemodialysis: (9) Hypertension: (10) Obesity: (11) Anemia due to chronic kidney disease: (12) Systolic and diastolic CHF, chronic: Admission and Anticipated Discharge Date Admission Date: September 30, 2022 Subjective Patient reports that pain is not being adequately controlled by PRN Oxycodone; requested stronger pain medication for leg pain. Tolerating adequate PO intake. Slept less than optimally due to uncontrolled pain. No fever/chills, chest pain, SOB, N/V, abdominal pain or rash. Review of Systems Review of Systems: All systems reviewed & are unremarkable except as noted in HPI & below Physical Exam Physical Exam: General: A&Ox3. NAD. Cooperative. HEENT: Atraumatic, normocephalic. Pulm: CTAB A&P. -wheezes, -rales, -rhonchi. Symmetrical chest rise. No increase work of breathing. No respiratory distress. Cardiac: RRR, -mrg. Radial pulses intact and symmetrical. Abdominal: soft, non-tender, non-distended, BS x 4 LEs: right LE with wound vac in place, minimal serosanguineous drainage, no surrounding erythema. Results & Data Results & Data Vital Signs (Past 12 Hours) Vital Signs Temp Pulse Resp BP Pulse Ox O2 Del Method 10/12/22 20:46 36.6 C 76 18 143/83 H 97 Room Air Resident Activity Tracking Resident Involvement: Resident Care Provided Care Provided: Adult Hospital Medicine (3) Anemia Anemia type: unspecified type Qualified Code(s): D64.9 - Anemia, unspecified (4) History of below knee amputation Laterality: left Qualified Code(s): Z89.512 - Acquired absence of left leg below knee (11) Anemia due to chronic kidney disease Chronic kidney disease stage: stage 5, not on chronic dialysis Qualified Code(s): N18.5 - Chronic kidney disease, stage 5; D63.1 - Anemia in chronic kidney disease
[2022-10-13] MEDS: ASPIRIN 81 MG ECTAB PO SCH (08:45)
[2022-10-13] MEDS: POLYETHYLENE (MIRALAX) 17 GM PACK PO SCH ×2 (08:47→16:13)
[2022-10-13] MEDS: hydrALAZINE HCL 25 MG TAB PO SCH ×3 (08:47→21:26)
[2022-10-13] MEDS: ARTIFICIAL TEARS OP SCH ×4 (08:47→21:28)
[2022-10-13] MEDS: NEPHROCAPS PO SCH (08:47)
[2022-10-13] MEDS: PANTOprazole 40 MG TAB PO SCH ×2 (08:47→21:27)
[2022-10-13] MEDS: HEPARIN SOD 5,000 UNIT/0.5 ML VIAL SQ SCH ×4 (08:47→21:33)
[2022-10-13] MEDS: TRIAMCINOLONE ACET 0.1% OINT 15 GM TUBE TOP SCH ×2 (08:48→21:28)
[2022-10-13] MEDS: SILVER SULFADIAZINE 1% CR 50 GM JAR TOP SCH ×3 (08:48→21:28)
[2022-10-13 09:09] LABS: Hematocrit (blood only) 28.6 % (42.0-52.0); Hemoglobin 8.6 g/dl (14.0-18.0); Mean Corpuscular Hemoglobin 26.9 pg (25.0-34.0); Mean Corpuscular Hgb Conc 30.1 g/dL (32.0-36.0); Mean Corpuscular Volume 89.4 fL (80.0-100.0); Mean Platelet Volume 11.5 fL (9.4-12.4); Platelet Count 187 K/uL (130-400); RDW Coefficient of Variation 20.3 % (11.5-14.5); RDW Standard Deviation 65.9 fL (36.4-46.3); White Blood Count 5.06 K/ul (4.8-10.8)
[2022-10-13 10:07] LABS: Magnesium 1.9 mg/dl (1.7-2.4); Potassium 3.9 mmol/L (3.5-5.1)
[2022-10-13 10:10] LABS: INR 1.3 (0.9-1.1); Partial Thromboplastin Ratio 1.2; Partial Thromboplastin Time 32.6 Seconds (21.0-31.0); Prothrombin Time 13.5 Seconds (9.0-12.0)
[2022-10-13 10:13] LABS: BUN Creatinine Ratio 6.7 (10-20); Creatinine Clr Calc Pharmacy 34.6 ml/min; Est GFR (African American) 23.9 ml/min; Est GFR (Non-African American) 20.6 ml/min; Phosphorus 3.3 mg/dl (2.5-4.9)
[2022-10-13] MEDS ORDERED: ACETAMINOPHEN 325 MG TAB PO PRN (10:49)
--- NOTE | 2022-10-13 12:11 | Nephrology Progress Note ---
Date of Service October 13, 2022 Assessment & Plan (1) End-stage renal disease on hemodialysis: (2) PAD (peripheral artery disease): (3) Abscess of right leg: (4) Secondary hyperparathyroidism of renal origin: (5) Anemia due to chronic kidney disease: Plan 62 yo m with end-stage renal disease secondary to diabetic nephropathy, has been on dialysis now TTS at [facility]. Has history of significant peripheral vascular disease, right lower extremity ulcer and osteomyelitis requiring multiple hospitalization over last few months. Admitted to the hospital on 10/01 with right leg abscess. Had incision and drainage done currently has wound VAC in place. -- electrolyte acceptable, will keep on schedule for dialysis Friday. --Left arm nephrology precaution, dose medications for EGFR less than 10 --continue on Nephrocaps and phosphate binder --Epogen with next HD --Better pain control at night to help with sleep Will follow Admission and Anticipated Discharge Date Admission Date: September 30, 2022 Joseline Esteves was seen and evaluated this morning. his still having significant pain in his right leg and having difficulty sleeping at night because of pain. Wound vac does not have much drainage. He denies shortness of breath or chest pain. Blood pressure fair. Had 1.7 L UF yesterday. Review of Systems Review of Systems: detailed review of system was otherwise unremarkable. Physical Exam Constitutional: WD/WN, vitals as above + ill appearing; no acute distress Eyes: + anicteric sclerae ENMT: Ears: no hearing impairment Respiratory: Auscultation: lungs clear to auscultation bilaterally Cardiovascular: Rate/Rhythm: regular rate and regular rhythm Heart Sounds: normal S1 and normal S2 Extremities: + AV fistula (with + thrill and Bruit) Gastrointestinal (Abdomen): abdominal wall edema. Skin: + lesion, + ulcer, + skin atrophy and + erythema Neurologic: no focal motor deficits Psychiatric: Orientation: alert and oriented x 3 Results & Data Vital Signs (Past 12 Hours) Vital Signs Temp Pulse Resp BP Pulse Ox O2 Del Method 10/13/22 08:20 36.6 C 82 18 127/80 100 Room Air PG Care Time/CCT Total # of Minutes Spent Total Time Spent with Patient: Total time spent is greater than 50% in coordination of care (as documented) at patient's floor/unit and/or counseling patient: Coding Level of Care Code 78806 SUB INP/OBS CARE MIN Diagnoses End-stage renal disease on hemodialysis N18.6; Z99.2 PAD (peripheral artery disease) I73.9 Abscess of right leg L02.415 Secondary hyperparathyroidism of renal origin N25.81 Anemia due to chronic kidney disease N18.5; D63.1 Chronic kidney disease stage: stage 5, not on chronic dialysis (5) Anemia due to chronic kidney disease Chronic kidney disease stage: stage 5, not on chronic dialysis Qualified Code(s): N18.5 - Chronic kidney disease, stage 5; D63.1 - Anemia in chronic kidney disease
[2022-10-13] MEDS: GABAPENTIN 100 MG CAP PO SCH (12:27)
[2022-10-13] MEDS: POTASSIUM CHLORIDE CRTAB 20 MEQ TABCR PO SCH (12:27)
[2022-10-13] MEDS: METOPROLOL SUCC 25MG EXT REL TAB PO SCH ×2 (12:27→21:25)
[2022-10-13] MEDS: cefTRIAXone SODIUM 2,000 MG in DEXTROSE 5% 50 ML IV SCH (13:33)
[2022-10-13] MEDS: ATORVASTATIN 20 MG TAB PO SCH (21:25)
[2022-10-13] MEDS: traZODone HCL 50 MG TAB PO SCH (21:26)
--- NOTE | 2022-10-13 22:09 | Orthopedic Progress Note ---
Date of Service October 13, 2022 Assessment & Plan (1) Open leg wound: Plan: Patient seen, evaluated and treated. Wound vac changed with out incident. Negative pressure therapy applied 125mmHg continuous. Plan for Surgical Delayed primary closure, OR Add on 10/14/22. Admission and Anticipated Discharge Date Admission Date: September 30, 2022 Subjective Patient seen at bedside. He has no complaints. Wound Vac intact and running 125mmHg continuous. Review of Systems Review of Systems: All systems reviewed & are unremarkable except as noted in HPI & below Physical Exam Constitutional: WD/WN, vitals as above cooperative and comfortable Eyes: normal accommodation Respiratory: normal respiratory effort Cardiovascular: Rate/Rhythm: regular rate and regular rhythm Skin: Right posterior leg wound extending from calcaneus to proximal gastrocnemius. Exposed triceps surae. Absent Achilles tendon. Psychiatric: Orientation: alert and oriented x 3 Results & Data Vital Signs (Past 12 Hours) Vital Signs Temp Pulse Resp BP Pulse Ox O2 Del Method 10/13/22 21:33 36.6 C 81 20 158/80 H 99 Room Air 10/13/22 15:36 36.4 C L 82 16 112/72 98 Room Air
[2022-10-14] MEDS: oxyCODONE HCL IR 5 MG TAB (IMMEDIATE RELEASE) PO PRN ×3 (00:40→22:05)
[2022-10-14] MEDS: HYDROmorphone INJ 0.5 MG/0.5 ML SYR IV PRN ×2 (03:08→18:44)
[2022-10-14] MEDS: metroNIDAZOLE 500 MG/100 ML BAG IV SCH ×3 (06:20→21:49)
[2022-10-14 06:51] LABS: Hematocrit (blood only) 28.2 % (42.0-52.0); Hemoglobin 8.5 g/dl (14.0-18.0); Mean Corpuscular Hemoglobin 27.1 pg (25.0-34.0); Mean Corpuscular Hgb Conc 30.1 g/dL (32.0-36.0); Mean Corpuscular Volume 89.8 fL (80.0-100.0); Mean Platelet Volume 11.8 fL (9.4-12.4); Platelet Count 201 K/uL (130-400); RDW Coefficient of Variation 20.2 % (11.5-14.5); RDW Standard Deviation 66.2 fL (36.4-46.3); Red Blood Count 3.14 M/uL (4.70-6.10); White Blood Count 5.74 K/ul (4.8-10.8)
[2022-10-14 07:19] LABS: BUN Creatinine Ratio 7.3 (10-20); Calcium 8.9 mg/dl (8.6-10.3); Creatinine Clr Calc Pharmacy 28.1 ml/min; Est GFR (African American) 18.6 ml/min; Potassium 4.2 mmol/L (3.5-5.1)
[2022-10-14] MEDS: POLYETHYLENE (MIRALAX) 17 GM PACK PO SCH ×2 (07:34→16:09)
--- NOTE | 2022-10-14 07:39 | Hospitalist Progress Note ---
Date of Service October 14, 2022 Assessment & Plan (1) Abscess of right leg: Plan: 62 y/o male w/ PMHx of ESRD on TuThSat dialysis, anemia, hypertension, DM2, PAD, HFmrEF who presented with right lower extremity swelling, admitted for management of RLE abscess. RLE abscess: s/p I&D 10/01 and 10/10 - MRI RLE on 10/07/2022 showed abscess measuring 1.8 cm x 7.4 cm x 20 cm w/ percutaneous drain of the gastrocnemius. - 400ml purulent fluid expressed intraoperatively and on subsequent days - Wound vac in place, minimal drainage - 09/30 wound culture w/ rare amounts of MSSA and moderate Bacteroides fragilis (no sensitivities). 10/01 wound culture w/ moderate Bacteroides fragilis. - 10/10 gram stain w/ rare gram pos cocci, no growth to date. 09/30 blood culture w/o growth. - Wound closure per ortho 10/14/22 - Continue ceftriaxone 2g daily and Flagyl q8h, appropriate for ESRD on dialysis. Temporary interruption on 10/11. Continue ceftriaxone 2g, Flagyl. Plan to transition to PO cefdinir+Flagyl total 3 weeks - Pain control w/ prn Tylenol, oxycodone per renal adjustment to 2.5mg q8h, Dilaudid 0.5mg (Q8H) - Continue encouraging use of AFO brace. - Dispo plan: Michaela Choudhury waiting on outpatient wound vac to arrive. End stage renal disease - Home dialysis continued here [facility] (was [facility] schedule prior to detention). Hold AM antihypertensives on dialysis days. Episodic hypotension during noted. - Nephrology following - Renally dose medications for <10 egfr. - No lab draws in LUE - Sevelamer held since 10/05 for hypophos of 1.3 on 10/04/22, since resolved. Protein-calorie malnutrition - Nutrition consulted. Continue Nephrocaps. Dietary recommendations provided. Will liberalize diet by removing HH, DM2 qualifiers, but will keep dialysis renal. Hypertension - Continue metoprolol succinate 25 mg PO BID and hydralazine 25 mg PO TID Normocytic anemia: chronic - multifactorial: ESRD, malnutrition - stable at low 8s - appreciate nephrology assistance with Venofer and Mircera (Epo) q4wk Mixed systolic and diastolic congestive heart failure -06/2022 echo w/ EF 35-40% (see paper chart). Mixed systolic and diastolic CHF. Use IV fluids w/ caution. Diabetes mellitus - 5.2 on 10/02/22. Not on medication. Check BSG achs. Peripheral artery disease - Per scanned vascular surgery report, had 07/29/22 RLE angiogram w/ right SFA and popliteal angioplasty. He had hospitalization during which he had RLE/Achilles tendon wound debridement. Continue home baby ASA and statin. - 10/01/22 vascular consult: No indications for vascular intervention. diet: npo until post surgery ppx: sq heparin 5000u q12h code: full dispo: med surg (2) Dialysis patient: (3) Anemia: (4) History of below knee amputation: (5) Physical deconditioning: (6) PAD (peripheral artery disease): (7) Diabetes: (8) End-stage renal disease on hemodialysis: (9) Hypertension: (10) Obesity: (11) Anemia due to chronic kidney disease: (12) Systolic and diastolic CHF, chronic: Admission and Anticipated Discharge Date Admission Date: September 30, 2022 Supervising Physician Co-Signing Physician Notes Chart reviewed and case discussed with Dr. Partida. Patient known to me from earlier in his hospital stay. Was off the floor/in the operating room on the multiple times I tried to see him today. Subjective Patient seen at bedside, calm comfortable cooperative. Patient understands his surgery is scheduled at 10:30 this morning, aware it may occur later in the day. States he has pain in his right leg from his abscess and wound vac but does not want medication at this time. Otherwise no concerns at this time. Physical Exam Constitutional: well developed, well nourished and cooperative Eyes: PERRL, conjunctivae normal, anicteric sclerae ENMT: external ear and nose normal, oropharynx normal Neck: trachea midline, no thyromegaly Respiratory: normal respiratory effort, lungs clear to auscultation Cardiovascular: RRR, no murmur, no edema Gastrointestinal (Abdomen): Inspection/Auscultation: abdomen normal to inspection Percussion/Palpation: abdomen soft; abdomen nontender Musculoskeletal: LLE bka Skin: wound vac in place with minimal drainage on right lower leg Results & Data Results & Data Vital Signs (Past 12 Hours) Vital Signs Temp Pulse Pulse Resp BP Pulse Ox O2 Del Method 10/14/22 07:33 36.6 C 84 18 136/82 99 Room Air 10/13/22 21:00 Room Air 10/13/22 21:33 36.6 C 81 20 158/80 H 99 Room Air Resident Activity Tracking Resident Involvement: Resident Care Provided Care Provided: Adult Hospital Medicine (3) Anemia Anemia type: unspecified type Qualified Code(s): D64.9 - Anemia, unspecified (4) History of below knee amputation Laterality: left Qualified Code(s): Z89.512 - Acquired absence of left leg below knee (11) Anemia due to chronic kidney disease Chronic kidney disease stage: stage 5, not on chronic dialysis Qualified Code(s): N18.5 - Chronic kidney disease, stage 5; D63.1 - Anemia in chronic kidney disease
[2022-10-14] MEDS: HEPARIN SOD 5,000 UNIT/0.5 ML VIAL SQ SCH ×2 (07:48→21:48)
[2022-10-14] MEDS: ARTIFICIAL TEARS OP SCH ×4 (08:40→21:48)
[2022-10-14] MEDS: ASPIRIN 81 MG ECTAB PO SCH (08:41)
[2022-10-14] MEDS: NEPHROCAPS PO SCH (08:43)
[2022-10-14] MEDS: hydrALAZINE HCL 25 MG TAB PO SCH ×3 (08:43→21:47)
[2022-10-14] MEDS: PANTOprazole 40 MG TAB PO SCH ×2 (08:44→21:47)
[2022-10-14] MEDS: SILVER SULFADIAZINE 1% CR 50 GM JAR TOP SCH ×3 (08:47→21:51)
[2022-10-14] MEDS: TRIAMCINOLONE ACET 0.1% OINT 15 GM TUBE TOP SCH ×2 (08:48→21:51)
--- NOTE | 2022-10-14 09:08 | Anesthesiology Consultation ---
Date of Service October 14, 2022 Assessment & Plan Chart Review Chart Review: Acceptable Risk for Surgery and Patient NOT seen in Pre Admission Testing History Surgery Operation Date: 10/01/22 17:55 Proposed Procedures p Incision and Drainage right ankle(Right) - Conner German DPM, MS Operation Date: 10/10/22 07:00 Proposed Procedures p Right Posterior Leg Incision and Drainage Extremity, Washout, Debridement, Application of Wound Vac - Conner German DPM, Operation Date: 10/14/22 10:40 Proposed Procedures p Delayed Primary Closure Right Leg - Conner German DPM, MS Height/Weight Height: 6 ft 2 in Weight: 119.5 kg Allergies Allergy/AdvReac Type Severity Reaction Status Date / Time doxycycline Allergy Intermediate Rash Verified 09/30/22 17:43 cephalexin [From Keflex] AdvReac Intermediate ITCHING Verified 09/30/22 17:43 Medications Home Medications Medication Instructions Recorded Confirmed Last Taken aspirin 81 mg tablet,delayed 81 mg PO QAM #30 tabs 07/12/22 09/30/22 09/30/22 release atorvastatin 20 mg tablet 20 mg PO QPM #30 tabs 07/12/22 09/30/22 09/29/22 sevelamer HCl 800 mg tablet 2,400 mg PO TIDM #270 tabs 07/12/22 09/30/22 09/30/22 12:00 (Renagel) acetaminophen 325 mg tablet 650 mg PO Q4H PRN PAIN/FEVER 09/30/22 09/30/22 Unknown (Tylenol) amoxicillin 500 mg-potassium 1 tab PO QPM 09/30/22 09/30/22 Unknown clavulanate 125 mg tablet carboxymethylcellulose sodium 1 % 1 drp OPB QID 09/30/22 09/30/22 09/30/22 13:00 eye drops (Artificial Tears (carboxymethylcellulose)) diclofenac sodium 1 % topical gel 1 g topical QID PRN Pain 09/30/22 09/30/22 Unknown folic acid 1 mg tablet 1 mg PO QDL 09/30/22 09/30/22 09/30/22 gabapentin 100 mg capsule 100 mg PO QDL 09/30/22 09/30/22 09/30/22 hydralazine 25 mg tablet 25 mg PO TID 09/30/22 09/30/22 09/30/22 13:00 menthol 0.44 %-zinc oxide 20.6 % 1 applic topical BID PRN 09/30/22 09/30/22 Unknown topical ointment (Calmoseptine) SCARUM/BUTTOCKS NEEDED metoprolol succinate 25 mg 25 mg PO BID 09/30/22 09/30/22 09/30/22 11:30 tablet,extended release 24 hr multivitamin 1 tab PO DAILY 09/30/22 09/30/22 09/30/22 nystatin 100,000 unit/gram topical 1 applic topical BID 09/30/22 09/30/22 Unknown powder pantoprazole 40 mg tablet,delayed 40 mg PO AMHS 09/30/22 09/30/22 09/30/22 09:00 release polyethylene glycol 3350 17 gram 17 g PO BIDM 09/30/22 09/30/22 09/30/22 09:00 oral powder packet (Miralax) potassium chloride 20 mEq 20 meq PO QDL 09/30/22 09/30/22 09/30/22 tablet,extended release(part/cryst) silver sulfadiazine 1 % topical 1 applic topical TID 09/30/22 09/30/22 Unknown cream tramadol 50 mg tablet 50 mg PO Q6H PRN Pain 09/30/22 09/30/22 Unknown trazodone 50 mg tablet 50 mg PO HS 09/30/22 09/30/22 09/29/22 triamcinolone acetonide 0.1 % 1 applic topical BID 09/30/22 09/30/22 Unknown topical ointment Active Medications Generic Name Dose Route Start Last Admin Trade Name Rosie PRN Reason Stop Dose Admin Artificial Tears 1 drops 10/10/22 21:00 10/14/22 08:40 Artificial Tears OP 11/09/22 20:59 1 drops QID VIN Administration Aspirin 81 mg 10/11/22 09:00 10/14/22 08:41 Aspirin 81 Mg Ectab PO 11/10/22 08:59 81 mg QAM VIN Administration Atorvastatin Calcium 20 mg 09/30/22 22:40 10/13/22 21:25 Atorvastatin 20 Mg Tab PO 10/30/22 22:39 20 mg QPM VIN Administration Gabapentin 100 mg 10/11/22 11:30 10/13/22 12:27 Gabapentin 100 Mg Cap PO 11/10/22 11:29 100 mg QDL VIN Administration Heparin Sodium (Porcine) 5,000 units 10/05/22 21:00 10/14/22 07:48 Heparin Sod 5,000 Unit/0.5 Ml Vial SQ 11/04/22 20:59 Not Given Q12 VIN Hydralazine HCl 25 mg 10/01/22 09:00 10/14/22 08:43 Hydralazine Hcl 25 Mg Tab PO 10/31/22 08:59 25 mg TID VIN Administration Hydromorphone HCl 0.5 mg 10/13/22 10:49 10/14/22 03:08 Hydromorphone Inj 0.5 Mg/0.5 Ml Syr IV 10/27/22 10:48 0.5 mg Q8H PRN Administration severe pain (8.9,10) Ceftriaxone Sodium 2,000 mg/ 70 mls @ 100 mls/hr 10/12/22 13:00 10/13/22 14:09 Dextrose IV 10/19/22 12:59 Infused Q24H [facility] Infusion Protocol Metronidazole 500 mg in 100 mls @ 100 mls/hr 10/12/22 13:00 10/14/22 08:35 Flagyl IV 10/19/22 12:59 100 mls/hr Q8H VIN Infusion Protocol Metoprolol Succinate 25 mg 09/30/22 22:45 10/13/22 21:25 Metoprolol Succ 25mg Ext Rel Tab PO 10/30/22 22:44 25 mg BID@1200,2100 VIN Administration Oxycodone HCl 2.5 mg 10/13/22 10:50 10/14/22 00:40 Oxycodone Hcl Ir 5 Mg Tab (Immediate Release) PO 10/17/22 16:12 2.5 mg Q8H PRN Administration moderate pain (5,6,7) Pantoprazole Sodium 40 mg 10/01/22 09:00 10/14/22 08:44 Pantoprazole 40 Mg Tab PO 10/31/22 08:59 40 mg BID VIN Administration Polyethylene Glycol 17 gm 10/01/22 08:00 10/14/22 07:34 Polyethylene (Miralax) 17 Gm Pack PO 10/31/22 07:59 Not Given BIDM VIN Potassium Chloride 20 meq 10/11/22 11:30 10/13/22 12:27 Potassium Chloride Crtab 20 Meq Tabcr PO 11/10/22 11:29 20 meq QDL VIN Administration Silver Sulfadiazine 1 appln 10/10/22 21:00 10/14/22 08:47 Silver Sulfadiazine 1% Cr 50 Gm Jar TOP 11/09/22 20:59 Not Given TID VIN Trazodone HCl 50 mg 10/10/22 21:00 10/13/22 21:26 Trazodone Hcl 50 Mg Tab PO 11/09/22 20:59 50 mg HS VIN Administration Triamcinolone Acetonide 1 appln 10/10/22 21:00 10/14/22 08:48 Triamcinolone Acet 0.1% Oint 15 Gm Tube TOP 11/09/22 20:59 Not Given BID VIN Vitamin B Complex/Folic Acid 1 cap 10/03/22 14:15 10/14/22 08:43 Nephrocaps PO 11/02/22 14:14 1 cap QAM VIN Administration NPO Date Last Intake of Fluids: 10/10/22 Time Last Intake of Fluids: 00:00 Last Intake of Fluids Comment: sips Date Last Intake of Solids: 10/10/22 Time Last Intake of Solids: 00:00 Past Medical History Medical History Acute blood loss anemia Acute kidney injury Amputated toe of left foot Amputated toe of right foot Anasarca Bilateral cellulitis of lower leg ESRD (end stage renal disease) on dialysis Gangrene Gangrene HTN (hypertension) Hyperparathyroidism due to end stage renal disease on dialysis Metabolic acidosis Nephrotic syndrome Obesity Osteomyelitis Proteinuria Systolic and diastolic CHF, chronic Past Family History Family History Other Diabetes Family history non-contributory Hypertension Past Surgical History Surgical History History of angioplasty of peripheral vessel S/P arteriovenous (AV) fistula creation Status post incision and drainage left foot wound Social History Smoking Status: Never smoker Do You Dip or Chew Tobacco: No Hx Alcohol Use: Yes Alcohol type: other alcohol intake frequency: holidays/special occasions only Hx Substance Use: No substance use type: does not use Physical Exam Vital Signs Last Vital Signs Temp 36.6 C 10/14/22 07:33 Pulse 84 10/14/22 07:33 Resp 18 10/14/22 07:33 BP 136/82 10/14/22 07:33 Pulse Ox 99 10/14/22 07:33 O2 Del Method Room Air 10/14/22 07:33 O2 Flow Rate 1 10/11/22 03:12 Testing Laboratory Results 10/14/22 06:14 10/14/22 06:14 PT 13.5 Seconds (9.0-12.0) H 10/13/22 08:48 INR 1.3 (0.9-1.1) H 10/13/22 08:48 APTT 32.6 Seconds (21.0-31.0) H 10/13/22 08:48 Hemoglobin A1c 5.2 % (4.5-5.6) 10/02/22 10:01 10/10/22 18:00 Gram Stain - Final Leg,Right Aerobic and Anaerobic Culture - Preliminary No growth to date. 10/01/22 22:12 Gram Stain - Final Ankle,Right Aerobic and Anaerobic Culture - Final Bacteroides fragilis 09/30/22 15:55 Aerobic Blood Culture - Final Blood No growth in Aerobic bottle after 5 days. Anaerobic Blood Culture - Final 09/30/22 15:29 Aerobic Blood Culture - Final Blood No growth in Aerobic bottle after 5 days. Anaerobic Blood Culture - Final No growth in Anaerobic bottle after 5 days. 09/30/22 21:35 Gram Stain - Final Leg,Right Aerobic and Anaerobic Culture - Final Staphylococcus aureus Bacteroides fragilis Electrocardiogram Date: 09/30/22 Findings: + NSR @ (83) Nonspecific ST and T wave abnormality Prolonged QT Echocardiogram Date: 06/26/22 EF: 35-40 RWMA: + hypokinetic Other Findings: + atrial enlargement (severe LA dilation) Valvular Disease: + no significant valvular disease; no MS
[2022-10-14] MEDS: GABAPENTIN 100 MG CAP PO SCH (11:09)
[2022-10-14] MEDS: POTASSIUM CHLORIDE CRTAB 20 MEQ TABCR PO SCH (11:10)
[2022-10-14] MEDS: METOPROLOL SUCC 25MG EXT REL TAB PO SCH ×2 (11:11→21:46)
[2022-10-14] MEDS: cefTRIAXone SODIUM 2,000 MG in DEXTROSE 5% 50 ML IV SCH (13:13)
--- NOTE | 2022-10-14 15:07 | Nephrology Progress Note ---
Date of Service October 14, 2022 Assessment & Plan (1) End-stage renal disease on hemodialysis: (2) PAD (peripheral artery disease): (3) Abscess of right leg: (4) Secondary hyperparathyroidism of renal origin: (5) Anemia due to chronic kidney disease: Plan 62 yo m with end-stage renal disease secondary to diabetic nephropathy, has been on dialysis now TTS at [facility] [place]. Has history of significant peripheral vascular disease, right lower extremity ulcer and osteomyelitis requiring multiple hospitalization over last few months. Admitted to the hospital on 10/01 with right leg abscess. Had incision and drainage done currently has wound VAC in place. Overall asymptomatic, blood pressure well controlled, volume status acceptable, electrolyte acceptable. --dialysis tomorrow --Left arm nephrology precaution, dose medications for eGFR less than 10 --continue on Nephrocaps and phosphate binder --Epogen with next HD Will follow Admission and Anticipated Discharge Date Admission Date: September 30, 2022 Joseline Esteves was seen and evaluated this morning. leg pain improved and he slept well last night. Wound vac does not have much drainage , Schedule for surgical closer this morning. He denies shortness of breath or chest pain. Blood pressure fair. electrolyte acceptable. Review of Systems Review of Systems: detailed review of system was otherwise unremarkable. Physical Exam Constitutional: WD/WN, vitals as above + ill appearing; no acute distress Eyes: + anicteric sclerae ENMT: Ears: no hearing impairment Respiratory: Auscultation: lungs clear to auscultation bilaterally Cardiovascular: Rate/Rhythm: regular rate and regular rhythm Heart Sounds: normal S1 and normal S2 Extremities: + AV fistula (with + thrill and Bruit) Musculoskeletal: left BKA Skin: + lesion, + ulcer, + skin atrophy and + erythema Neurologic: no focal motor deficits Psychiatric: Orientation: alert and oriented x 3 Results & Data Vital Signs (Past 12 Hours) Vital Signs Temp Pulse Resp BP Pulse Ox O2 Del Method 10/14/22 11:05 85 138/82 10/14/22 07:33 36.6 C 84 18 136/82 99 Room Air PG Care Time/CCT Total # of Minutes Spent Total Time Spent with Patient: Total time spent is greater than 50% in coordination of care (as documented) at patient's floor/unit and/or counseling patient: Coding Level of Care Code 21512 SUB INP/OBS CARE 2/35MIN Diagnoses End-stage renal disease on hemodialysis N18.6; Z99.2 PAD (peripheral artery disease) I73.9 Abscess of right leg L02.415 Secondary hyperparathyroidism of renal origin N25.81 Anemia due to chronic kidney disease N18.5; D63.1 Chronic kidney disease stage: stage 5, not on chronic dialysis (5) Anemia due to chronic kidney disease Chronic kidney disease stage: stage 5, not on chronic dialysis Qualified Code(s): N18.5 - Chronic kidney disease, stage 5; D63.1 - Anemia in chronic kidney disease
[2022-10-14] MEDS ORDERED: fentaNYL citrate PF 100 MCG/2 ML VIAL ONE (15:25)
[2022-10-14] MEDS ORDERED: ROCURONIUM BROMIDE 10 MG/ML 5 ML VIAL IV ONE (15:25)
[2022-10-14] MEDS ORDERED: LIDOCAINE 2% MPF LOCAL 5 ML VIAL ONE (15:25)
[2022-10-14] MEDS ORDERED: MIDAZOLAM HCL 1 MG/ML 2ML VIAL ONE (15:25)
[2022-10-14] MEDS ORDERED: PROPOFOL IV EMULSION 10 MG/ML 20 ML VIAL IV ONE (15:25)
--- NOTE | 2022-10-14 16:19 | History & Physical Bridge Note ---
Date of Service October 14, 2022 History & Physical Bridge Note I have examined the patient, reviewed the History & Physical and in the interval since the performance of the History & Physical I have noted the following changes of clinical significance: no changes noted
[2022-10-14] MEDS ORDERED: ONDANSETRON INJ 2 MG/ML 2 ML VIAL ONE (16:55)
[2022-10-14] MEDS ORDERED: ePHEDrine sulfate 50 MG/ML AMP ONE (16:55)
[2022-10-14] MEDS ORDERED: SUGAMMADEX SODIUM 200 MG/2 ML VIAL IV ONE (17:38)
--- NOTE | 2022-10-14 17:42 | Post Operative Brief Note ---
Immediate Post Op Note v1 Date of Surgery October 14, 2022 Pre & Post Diagnosis Operation Date: 10/14/22 10:40 <No data on this case meets the specified criteria> I identified the patient and participated in the time-out.: Yes Procedure Operation Date: 10/14/22 10:40 <No data on this case meets the specified criteria> Surgeon Conner German, TAYLOR, MS Sole Conforming Machine Operator None Estimated Blood Loss 0 Findings Consistent with Post-Op Diagnosis none Drains [place] Drain
[2022-10-14] MEDS ORDERED: LABETALOL HCL IV 5 MG/ML 20ML IV PRN (17:48)
[2022-10-14] MEDS ORDERED: NALOXONE HCL 0.4 MG/1 ML VIAL/CARP IV PRN (17:48)
[2022-10-14] MEDS ORDERED: ATROPINE SULFATE 0.1 MG/ML 10ML SYR IV PRN (17:48)
[2022-10-14] MEDS ORDERED: fentaNYL citrate PF 100 MCG/2 ML VIAL IV PRN (17:48)
[2022-10-14] MEDS ORDERED: ePHEDrine sulfate 50 MG/ML AMP IV PRN (17:48)
[2022-10-14] MEDS ORDERED: ONDANSETRON INJ 2 MG/ML 2 ML VIAL IV PRN (17:48)
[2022-10-14] MEDS ORDERED: PROMETHAZINE HCL 12.5 MG in SODIUM CHLORIDE 0.9% 50 ML IV PRN (17:48)
--- NOTE | 2022-10-14 18:17 | Anesthesiology Progress Note ---
Date of Service October 14, 2022 Anesthesia Post Procedure Vital Signs Vital Signs: Temp Pulse Pulse Resp BP Pulse Ox O2 Del Method 10/14/22 18:05 76 22 141/58 H 98 Nasal Cannula 10/14/22 17:55 80 13 114/65 89 L Room Air 10/14/22 17:46 36.0 C L 82 13 95/73 L 100 Oxymask 10/14/22 15:06 36.7 C 76 18 106/60 97 Room Air 10/14/22 11:05 85 138/82 10/14/22 07:33 36.6 C 84 18 136/82 99 Room Air 10/13/22 21:00 Room Air 10/13/22 21:33 36.6 C 81 20 158/80 H 99 Room Air O2 Flow Rate 10/14/22 18:05 2 10/14/22 17:55 10/14/22 17:46 6 10/14/22 15:06 10/14/22 11:05 10/14/22 07:33 10/13/22 21:00 10/13/22 21:33 Pain Intensity Right Leg: Pain Intensity: 3 Right Posterior Calf: Pain Intensity: 4 Transfer of Care Handoff Completed per policy Notes Mental Status: alert / awake / arousable Patient Amnestic to Procedure: Yes Nausea / Vomiting: adequately controlled Pain: adequately controlled Airway Patency, RR, SpO2: stable & adequate BP & HR: stable & adequate Hydration State: stable & adequate Anesthetic Complications: no major complications apparent
[2022-10-14] MEDS: traZODone HCL 50 MG TAB PO SCH (21:46)
[2022-10-14] MEDS: ATORVASTATIN 20 MG TAB PO SCH (21:47)
--- NOTE | 2022-10-14 22:13 | Operative Report ---
Post Operative Report Pre & Post Diagnosis Operation Date: 10/14/22 10:40 Pre-Op Diagnosis: right leg wound Post-Op Diagnosis: right leg wound I identified the patient and participated in the time-out.: Yes Procedure Operation Date: 10/14/22 10:40 Actual Procedures p Debridment Right Leg, Delayed Primary Closure Right Leg(Right) - Conner German DPM, MS Surgeon Conner German DPM, MS Help Desk Support None Estimated Blood Loss 0 Findings Consistent with Post-Op Diagnosis none Specimens none Description of Procedure History of present illness: Patient is a 62 year old male status post previous Incision and Drainage who is seen today for delayed primary closure. Patient has multiple right leg wounds. Patient is at high risk for limb loss. All questions answered. Discussed procedure in detail and postoperative recovery. All potential risks, benefits, complications, alternatives, rehab, potential for incomplete relief of symptoms, need for further surgery, DVT, PE, , persistent pain, swelling, scarring, weakness, neurovascular, wound complications and potential for amputations were discussed with patient. Unwanted outcomes such as, but not limited to were reviewed including under correction, overcorrection, return of deformity, infection. All questions were answered. Patient has decided to proceed with procedure as indicated. Preoperative diagnosis: Right Achilles and posterior leg wounds Postoperative diagnosis: same Name of operation: 1.) Wound debridement of right leg 2.) Delayed primary closure of right leg wounds Surgeon Dr. German Help Desk Support: None Anesthesia: Monitored anesthesia care Hemostasis: None Estimated blood loss: minimal Procedure in detail: Under mild sedation the patient was brought in the operating room and placed on the operating table in supine position. Wound vac is removed. Following IV sedation the patient was transferred to the prone position, the right lower extremity was prepped scrubbed and draped in usual aseptic manner. Attention was directed to the proximal aspect of the right leg. At this time attention was directed to the right posterior leg wound overlying absent tendo achilles tendon. This wound measures approximately 10 cm x 5 cm x 0.4cm. The Wound base shows exposed muscle. The ulcer base is described as containing 75 % pink granulation. Necrotic or devitalized tissue is estimated to be present in approximately 25% of the ulcer bed. I debrided the wound sharply with a sterile #15 blade and necrotic tissue was excised down to and including muscle. Attention was the directed to the previous triceps surae incision site. Significant time was spent removing all non viable tissue from the previous abscess locations. Copious amounts of normal saline was utilize to flush the wound. The skin was reapproximated utilizing 2-0 nylon with both horizontal and vertical mattress suture technique. The wounds were covered with adaptic, 4x4, ABD, kerlix, cast padding, and coban. The Patient tolerated the procedure and anesthesia well. He was transferred to recovery room vital signs stable. Following a period of postoperative monitoring the patient will be readmitted to floor with the continuation of all preoperative orders. I attest to the content of the Intraoperative Record and any orders documented therein. Any exceptions are noted below.
[2022-10-15] MEDS: HYDROmorphone INJ 0.5 MG/0.5 ML SYR IV PRN ×2 (03:45→12:11)
[2022-10-15] MEDS: metroNIDAZOLE 500 MG/100 ML BAG IV SCH ×3 (05:33→21:55)
[2022-10-15 06:39] LABS: Basophils # (auto) 0.04 K/uL (0-0.2); Basophils % (auto) 0.7 %; Eosinophils # (auto) 0.11 K/uL (0-0.50); Hematocrit (blood only) 27.5 % (42.0-52.0); Hemoglobin 8.2 g/dl (14.0-18.0); Immature Granulocytes # (auto) 0.01 K/uL (0.01-0.20); Immature Granulocytes % (auto) 0.2 %; Lymphocytes # (auto) 0.89 K/uL (1.2-3.4); Lymphocytes % (auto) 16.4 %; Mean Corpuscular Hemoglobin 26.8 pg (25.0-34.0); Mean Corpuscular Hgb Conc 29.8 g/dL (32.0-36.0); Mean Corpuscular Volume 89.9 fL (80.0-100.0); Mean Platelet Volume 10.8 fL (9.4-12.4); Monocytes # (auto) 0.49 K/uL (0.11-0.59); Neutrophils % (auto) 71.7 %; Platelet Count 171 K/uL (130-400); RDW Coefficient of Variation 19.9 % (11.5-14.5); RDW Standard Deviation 65.1 fL (36.4-46.3); Red Blood Count 3.06 M/uL (4.70-6.10); White Blood Count 5.44 K/ul (4.8-10.8)
[2022-10-15 07:00] LABS: BUN Creatinine Ratio 7.4 (10-20); Calcium 8.9 mg/dl (8.6-10.3); Creatinine Clr Calc Pharmacy 24.1 ml/min; Est GFR (African American) 15.4 ml/min; Est GFR (Non-African American) 13.3 ml/min
--- NOTE | 2022-10-15 07:17 | Hospitalist Progress Note ---
Date of Service October 15, 2022 Assessment & Plan (1) Abscess of right leg: Plan: 62 y/o male w/ PMHx of ESRD on TuThSat dialysis, anemia, hypertension, DM2, PAD, HFmrEF who presented with right lower extremity swelling, admitted for management of RLE abscess. RLE abscess: s/p I&D 10/01 and 10/10 - MRI RLE on 10/07/2022 showed abscess measuring 1.8 cm x 7.4 cm x 20 cm w/ percutaneous drain of the gastrocnemius. - 400ml purulent fluid expressed intraoperatively and on subsequent days - Wound vac in place, minimal drainage - 09/30 wound culture w/ rare amounts of MSSA and moderate Bacteroides fragilis (no sensitivities). 10/01 wound culture w/ moderate Bacteroides fragilis. - 10/10 gram stain w/ rare gram pos cocci, no growth to date. 09/30 blood culture w/o growth. - Wound closure per ortho 10/14/22 - Continue ceftriaxone 2g daily and Flagyl q8h, appropriate for ESRD on dialysis. Temporary interruption on 10/11. Continue ceftriaxone 2g, Flagyl. Plan to transition to PO cefdinir+Flagyl total 3 weeks - Pain control w/ prn Tylenol, oxycodone per renal adjustment to 2.5mg q8h, Dilaudid 0.5mg (Q8H) - Continue encouraging use of AFO brace. - Dispo plan: [facility], does not need wound vac at this time End stage renal disease - Home dialysis continued here [facility] (was [facility] schedule prior to correction). Hold AM antihypertensives on dialysis days. Episodic hypotension during noted. - Nephrology following - Renally dose medications for <10 egfr. - No lab draws in LUE - Sevelamer held since 10/05 for hypophos of 1.3 on 10/04/22, since resolved. Protein-calorie malnutrition - Nutrition consulted. Continue Nephrocaps. Dietary recommendations provided. Will liberalize diet by removing HH, DM2 qualifiers, but will keep dialysis renal. Hypertension - Continue metoprolol succinate 25 mg PO BID and hydralazine 25 mg PO TID Normocytic anemia: chronic - multifactorial: ESRD, malnutrition - stable at low 8s - appreciate nephrology assistance with Venofer and Mircera (Epo) q4wk Mixed systolic and diastolic congestive heart failure -06/2022 echo w/ EF 35-40% (see paper chart). Mixed systolic and diastolic CHF. Use IV fluids w/ caution. Diabetes mellitus - 5.2 on 10/02/22. Not on medication. Check BSG achs. Peripheral artery disease - Per scanned vascular surgery report, had 07/29/22 RLE angiogram w/ right SFA and popliteal angioplasty. He had hospitalization during which he had RLE/Achilles tendon wound debridement. Continue home baby ASA and statin. - 10/01/22 vascular consult: No indications for vascular intervention. diet: dialysis renal ppx: sq heparin 5000u q12h code: full dispo: med surg (2) Dialysis patient: (3) Anemia: (4) History of below knee amputation: (5) Physical deconditioning: (6) PAD (peripheral artery disease): (7) Diabetes: (8) End-stage renal disease on hemodialysis: (9) Hypertension: (10) Obesity: (11) Anemia due to chronic kidney disease: (12) Systolic and diastolic CHF, chronic: Admission and Anticipated Discharge Date Admission Date: September 30, 2022 Supervising Physician Co-Signing Physician Notes I personally examined the patient and verified all dhillon points of history and exam, discussed case, and agree with decision making with Dr Partida Feeling okay. Pain under reasonable control for him. About to go to dialysis. No other new complaints. Vitals noted, in general he is awake and alert pleasant no distress. HEENT normocephalic atraumatic mucous membranes moist. Breathing unlabored no accessory muscle use good effort. Skin shows no rashes no pallor or icterus. Right lower extremity is dressed, no erythema tracking beyond dressing. Right leg infection with concern on gangrenefortunately improved nicely postop, required prolonged inpatient wound control/wound VAC, now has had closurewill await further recommendations from podiatry as far as ongoing wound care, but from a general medical perspective appears to be close, if not ready, for return to SNF and outpatient care. Sugars under good control. Otherwise as above. Subjective Patient seen at bedside, calm comfortable cooperative. Patient states his surgery was at 3pm last night, no longer needs wound vac or wound drainage, however he is in increased pain post procedure and is using more pain medication. Patient denies SOB, tolerating diet well. Physical Exam Constitutional: well developed, well nourished and cooperative Eyes: PERRL, conjunctivae normal, anicteric sclerae ENMT: external ear and nose normal, oropharynx normal Neck: trachea midline, no thyromegaly Respiratory: normal respiratory effort, lungs clear to auscultation Cardiovascular: RRR, no murmur, no edema Gastrointestinal (Abdomen): Inspection/Auscultation: abdomen normal to inspection Percussion/Palpation: abdomen soft; abdomen nontender Musculoskeletal: LLE bka Skin: bandages and brace on right lower leg Results & Data Results & Data Vital Signs (Past 12 Hours) Vital Signs Temp Pulse Resp BP Pulse Ox O2 Del Method O2 Flow Rate 10/15/22 04:00 36.8 C 76 14 120/68 99 Nasal Cannula 2 10/14/22 20:00 Room Air 10/15/22 00:00 36.5 C 76 14 118/70 99 Nasal Cannula 2 10/14/22 21:40 36.7 C 77 14 125/67 100 Room Air 10/14/22 20:40 36.4 C L 78 14 136/83 100 Nasal Cannula 2 10/14/22 19:40 36.6 C 76 14 136/83 98 Nasal Cannula 2 Resident Activity Tracking Resident Involvement: Resident Care Provided Care Provided: Adult Hospital Medicine (3) Anemia Anemia type: unspecified type Qualified Code(s): D64.9 - Anemia, unspecified (4) History of below knee amputation Laterality: left Qualified Code(s): Z89.512 - Acquired absence of left leg below knee (11) Anemia due to chronic kidney disease Chronic kidney disease stage: stage 5, not on chronic dialysis Qualified Code(s): N18.5 - Chronic kidney disease, stage 5; D63.1 - Anemia in chronic kidney disease
[2022-10-15] MEDS: hydrALAZINE HCL 25 MG TAB PO SCH ×3 (08:20→21:56)
[2022-10-15] MEDS: SILVER SULFADIAZINE 1% CR 50 GM JAR TOP SCH ×3 (08:20→21:58)
[2022-10-15] MEDS: POLYETHYLENE (MIRALAX) 17 GM PACK PO SCH ×2 (08:20→16:28)
[2022-10-15] MEDS: HEPARIN SOD 5,000 UNIT/0.5 ML VIAL SQ SCH ×2 (08:20→21:57)
[2022-10-15] MEDS: TRIAMCINOLONE ACET 0.1% OINT 15 GM TUBE TOP SCH ×2 (08:20→21:58)
[2022-10-15] MEDS: PANTOprazole 40 MG TAB PO SCH ×2 (08:25→21:56)
[2022-10-15] MEDS: NEPHROCAPS PO SCH (08:25)
[2022-10-15] MEDS: ASPIRIN 81 MG ECTAB PO SCH (08:25)
[2022-10-15] MEDS: ARTIFICIAL TEARS OP SCH ×4 (08:26→21:57)
[2022-10-15] MEDS ORDERED: EPOETIN ALFA 10,000 UNITS/ML VIAL IV ONE (09:00)
[2022-10-15] MEDS: oxyCODONE HCL IR 5 MG TAB (IMMEDIATE RELEASE) PO PRN ×2 (09:36→22:18)
[2022-10-15] MEDS: GABAPENTIN 100 MG CAP PO SCH (11:49)
[2022-10-15] MEDS: METOPROLOL SUCC 25MG EXT REL TAB PO SCH ×2 (11:49→21:56)
[2022-10-15] MEDS: POTASSIUM CHLORIDE CRTAB 20 MEQ TABCR PO SCH (11:49)
[2022-10-15] MEDS: cefTRIAXone SODIUM 2,000 MG in DEXTROSE 5% 50 ML IV SCH (14:28)
[2022-10-15] MEDS ORDERED: HYDROmorphone INJ 0.5 MG/0.5 ML SYR IV ONE (14:37)
--- NOTE | 2022-10-15 14:56 | Nephrology Progress Note ---
Date of Service October 15, 2022 Assessment & Plan (1) End-stage renal disease on hemodialysis: (2) PAD (peripheral artery disease): (3) Abscess of right leg: (4) Secondary hyperparathyroidism of renal origin: (5) Anemia due to chronic kidney disease: Plan 62 yo m with end-stage renal disease secondary to diabetic nephropathy, has been on dialysis now TTS at [facility] [place]. Has history of significant peripheral vascular disease, right lower extremity ulcer and osteomyelitis requiring multiple hospitalization over last few months. Admitted to the hospital on 10/01 with right leg abscess. Had incision and drainage done currently has wound VAC in place. Overall asymptomatic, blood pressure well controlled, volume status acceptable, electrolyte acceptable. --dialysis today. --Left arm nephrology precaution, dose medications for eGFR less than 10 --continue on Nephrocaps and phosphate binder --Epogen with HD Today. Will follow Admission and Anticipated Discharge Date Admission Date: September 30, 2022 Joseline Esteves was seen and evaluated this morning overall he is feeling well although again having pain in his right leg after at the intervention yesterday. On VAC was removed and had skin closure. Review of Systems Review of Systems: detailed review of system was otherwise unremarkable. Physical Exam Constitutional: WD/WN, vitals as above + ill appearing; no acute distress Eyes: + anicteric sclerae ENMT: Ears: no hearing impairment Respiratory: Auscultation: lungs clear to auscultation bilaterally Cardiovascular: Rate/Rhythm: regular rate and regular rhythm Heart Sounds: normal S1 and normal S2 Extremities: + AV fistula (with + thrill and Bruit) Skin: + lesion, + ulcer, + skin atrophy and + erythema Neurologic: no focal motor deficits Psychiatric: Orientation: alert and oriented x 3 Results & Data Vital Signs (Past 12 Hours) Vital Signs Temp Pulse Pulse Pulse Resp BP BP 10/15/22 14:26 36.9 C 84 18 129/79 10/15/22 13:30 78 99/56 L 10/15/22 13:00 81 92/53 L 10/15/22 12:30 78 97/58 L 10/15/22 12:00 79 96/54 L 10/15/22 11:30 78 106/57 L 10/15/22 11:00 81 108/69 10/15/22 10:30 79 108/60 10/15/22 10:14 76 102/65 10/15/22 10:04 36.3 C L 80 10/15/22 07:26 36.4 C L 76 18 109/57 L 10/15/22 04:00 36.8 C 76 14 120/68 Pulse Ox O2 Del Method O2 Flow Rate 10/15/22 14:26 93 Room Air 10/15/22 13:30 10/15/22 13:00 10/15/22 12:30 10/15/22 12:00 10/15/22 11:30 10/15/22 11:00 10/15/22 10:30 10/15/22 10:14 10/15/22 10:04 10/15/22 07:26 99 Room Air 10/15/22 04:00 99 Nasal Cannula 2 PG Care Time/CCT Total # of Minutes Spent Total Time Spent with Patient: Total time spent is greater than 50% in coordination of care (as documented) at patient's floor/unit and/or counseling patient: Coding Level of Care Code 59047 SUB INP/OBS CARE 2/35MIN Diagnoses End-stage renal disease on hemodialysis N18.6; Z99.2 PAD (peripheral artery disease) I73.9 Abscess of right leg L02.415 Secondary hyperparathyroidism of renal origin N25.81 Anemia due to chronic kidney disease N18.5; D63.1 Chronic kidney disease stage: stage 5, not on chronic dialysis (5) Anemia due to chronic kidney disease Chronic kidney disease stage: stage 5, not on chronic dialysis Qualified Code(s): N18.5 - Chronic kidney disease, stage 5; D63.1 - Anemia in chronic kidney disease
--- NOTE | 2022-10-15 18:45 | Billing Data ---
Date of Service October 15, 2022 Coding Level of Care Code 74701 SUB INP/OBS CARE
[2022-10-15] MEDS: ATORVASTATIN 20 MG TAB PO SCH (21:57)
[2022-10-15] MEDS: traZODone HCL 50 MG TAB PO SCH (21:57)
--- NOTE | 2022-10-15 22:21 | Orthopedic Progress Note ---
Date of Service October 15, 2022 Assessment & Plan (1) Localized swelling of right lower leg: Plan: Patient seen, evaluated, and treated. Patient ok for discharge per podiatry to SNF. 3x weeks oral abx. Dressing changes include adaptic, 4x4, ABD, kerlix. Patient to remain in off loading AFO at all times. (2) Abscess of right leg: Admission and Anticipated Discharge Date Admission Date: September 30, 2022 Subjective Patient seen at bedside status post day #1 delayed primary closure to right leg. Patient notes some post procedure discomfort earlier in day which has mostly subsided. Review of Systems Review of Systems: All systems reviewed & are unremarkable except as noted in HPI & below Physical Exam Constitutional: + morbidly obese Respiratory: normal respiratory effort Cardiovascular: Rate/Rhythm: regular rate and regular rhythm Skin: Sutures intact. Neurologic: Absent epicritic sensation Psychiatric: Orientation: alert and oriented x 3 Results & Data Vital Signs (Past 12 Hours) Vital Signs Temp Pulse Pulse Pulse Resp BP BP 10/15/22 14:25 36.8 C 78 104/63 10/15/22 14:26 36.9 C 84 18 129/79 10/15/22 13:30 78 99/56 L 10/15/22 13:00 81 92/53 L 10/15/22 12:30 78 97/58 L 10/15/22 12:00 79 96/54 L 10/15/22 11:30 78 106/57 L 10/15/22 11:00 81 108/69 10/15/22 10:30 79 108/60 Pulse Ox O2 Del Method 10/15/22 14:25 10/15/22 14:26 93 Room Air 10/15/22 13:30 10/15/22 13:00 10/15/22 12:30 10/15/22 12:00 10/15/22 11:30 10/15/22 11:00 10/15/22 10:30 Diagnostic Findings Procedure Result Verified Site Gram Stain Final 10/01/22-1049 Gram Stain Result Many WBCs Seen Rare Gram Positive Cocci Aero/Ann Cult Final 10/05/22-1200 Organism 1 Staphylococcus aureus Quantity Rare Sens Sensitivities to Follow Organism 2 Bacteroides fragilis Quantity Moderate Sens No Sensitivities to Follow S aureus RX M.I.C. --- --------- Clindamycin S <=0.5 Daptomycin S 1 Erythromycin S <=0.5 Oxacillin S 0.5 Tetracycline S <=4 Trimeth/Sulfa S <=0.5/9.5 Vancomycin S 2 S = SENSITIVE I = INTERMEDIATE R = RESISTANT
[2022-10-16] MEDS: HYDROmorphone INJ 0.5 MG/0.5 ML SYR IV PRN ×2 (02:03→14:05)
[2022-10-16] MEDS: oxyCODONE HCL IR 5 MG TAB (IMMEDIATE RELEASE) PO PRN (06:21)
[2022-10-16] MEDS: metroNIDAZOLE 500 MG/100 ML BAG IV SCH (06:27)
[2022-10-16 07:25] LABS: Hematocrit (blood only) 27.2 % (42.0-52.0); Hemoglobin 8.3 g/dl (14.0-18.0); Mean Corpuscular Hemoglobin 27.2 pg (25.0-34.0); Mean Corpuscular Hgb Conc 30.5 g/dL (32.0-36.0); Mean Corpuscular Volume 89.2 fL (80.0-100.0); Mean Platelet Volume 11.9 fL (9.4-12.4); Platelet Count 196 K/uL (130-400); RDW Coefficient of Variation 20.6 % (11.5-14.5); RDW Standard Deviation 66.7 fL (36.4-46.3); Red Blood Count 3.05 M/uL (4.70-6.10); White Blood Count 5.57 K/ul (4.8-10.8)
--- NOTE | 2022-10-16 08:20 | Hospitalist Progress Note ---
Date of Service October 16, 2022 Assessment & Plan (1) Abscess of right leg: Plan: 62 y/o male w/ PMHx of ESRD on TuThSat dialysis, anemia, hypertension, DM2, PAD, HFmrEF who presented with right lower extremity swelling, admitted for management of RLE abscess. RLE abscess: s/p I&D 10/01 and 10/10 - MRI RLE on 10/07/2022 showed abscess measuring 1.8 cm x 7.4 cm x 20 cm w/ percutaneous drain of the gastrocnemius. - 400ml purulent fluid expressed intraoperatively and on subsequent days - Wound vac in place, minimal drainage - 09/30 wound culture w/ rare amounts of MSSA and moderate Bacteroides fragilis (no sensitivities). 10/01 wound culture w/ moderate Bacteroides fragilis. - 10/10 gram stain w/ rare gram pos cocci, no growth to date. 09/30 blood culture w/o growth. - Wound closure per ortho 10/14/22 - Continue ceftriaxone 2g daily and Flagyl q8h, appropriate for ESRD on dialysis. Temporary interruption on 10/11. Continue ceftriaxone 2g, Flagyl. Plan to transition to PO cefdinir+Flagyl total 3 weeks - Pain control w/ prn Tylenol, oxycodone per renal adjustment to 2.5mg q8h, Dilaudid 0.5mg (Q8H) - Continue encouraging use of AFO brace. - Dispo plan: [facility], does not need wound vac at this time End stage renal disease - Home dialysis continued here [facility] (was [facility] schedule prior to senior living). Hold AM antihypertensives on dialysis days. Episodic hypotension during noted. - Nephrology following - Renally dose medications for <10 egfr. - No lab draws in LUE - Sevelamer held since 10/05 for hypophos of 1.3 on 10/04/22, since resolved. Protein-calorie malnutrition - Nutrition consulted. Continue Nephrocaps. Dietary recommendations provided. Will liberalize diet by removing HH, DM2 qualifiers, but will keep dialysis renal. Hypertension - Continue metoprolol succinate 25 mg PO BID and hydralazine 25 mg PO TID Normocytic anemia: chronic - multifactorial: ESRD, malnutrition - stable at low 8s - appreciate nephrology assistance with Venofer and Mircera (Epo) q4wk Mixed systolic and diastolic congestive heart failure -06/2022 echo w/ EF 35-40% (see paper chart). Mixed systolic and diastolic CHF. Use IV fluids w/ caution. Diabetes mellitus - 5.2 on 10/02/22. Not on medication. Check BSG achs. Peripheral artery disease - Per scanned vascular surgery report, had 07/29/22 RLE angiogram w/ right SFA and popliteal angioplasty. He had hospitalization during which he had RLE/Achilles tendon wound debridement. Continue home baby ASA and statin. - 10/01/22 vascular consult: No indications for vascular intervention. diet: dialysis renal ppx: sq heparin 5000u q12h code: full dispo: med surg (2) Dialysis patient: (3) Anemia: (4) History of below knee amputation: (5) Physical deconditioning: (6) PAD (peripheral artery disease): (7) Diabetes: (8) End-stage renal disease on hemodialysis: (9) Hypertension: (10) Obesity: (11) Anemia due to chronic kidney disease: (12) Systolic and diastolic CHF, chronic: Admission and Anticipated Discharge Date Admission Date: September 30, 2022 Results & Data Results & Data Vital Signs (Past 12 Hours) Vital Signs Temp Pulse Resp BP Pulse Ox O2 Del Method 10/16/22 07:09 36.5 C 76 18 120/78 Room Air 10/15/22 22:21 36.6 C 80 17 137/77 97 Room Air (3) Anemia Anemia type: unspecified type Qualified Code(s): D64.9 - Anemia, unspecified (4) History of below knee amputation Laterality: left Qualified Code(s): Z89.512 - Acquired absence of left leg below knee (11) Anemia due to chronic kidney disease Chronic kidney disease stage: stage 5, not on chronic dialysis Qualified Code(s): N18.5 - Chronic kidney disease, stage 5; D63.1 - Anemia in chronic kidney disease
[2022-10-16 09:14] LABS: BUN Creatinine Ratio 5.8 (10-20); Calcium 8.5 mg/dl (8.6-10.3); Creatinine Clr Calc Pharmacy 31.2 ml/min; Est GFR (Non-African American) 18.2 ml/min; Potassium 3.5 mmol/L (3.5-5.1)
[2022-10-16] MEDS: ASPIRIN 81 MG ECTAB PO SCH (09:42)
[2022-10-16] MEDS: POLYETHYLENE (MIRALAX) 17 GM PACK PO SCH (09:42)
[2022-10-16] MEDS: HEPARIN SOD 5,000 UNIT/0.5 ML VIAL SQ SCH (09:43)
[2022-10-16] MEDS: NEPHROCAPS PO SCH (09:43)
[2022-10-16] MEDS: hydrALAZINE HCL 25 MG TAB PO SCH ×2 (09:43→14:06)
[2022-10-16] MEDS: PANTOprazole 40 MG TAB PO SCH (09:43)
[2022-10-16] MEDS: ARTIFICIAL TEARS OP SCH ×2 (09:44→12:51)
[2022-10-16] MEDS: TRIAMCINOLONE ACET 0.1% OINT 15 GM TUBE TOP SCH (09:45)
[2022-10-16] MEDS: SILVER SULFADIAZINE 1% CR 50 GM JAR TOP SCH ×2 (09:45→14:07)
--- NOTE | 2022-10-16 11:35 | Discharge Summary ---
Date of Service October 16, 2022 Admission HPI Per Admitting Provider 62 y/o male w/ PMHx of ESRD on dialysis (L wrist fistula), L BKA, CAD, HFrEF, PAD, DM, and HTN who presents from [facility] via EMS after an ultrasound of his right leg suggested possible abscess vs hematoma. Patient has had right ankle/achilles wound x months. He was admitted to [facility] 07/2022 and had achilles debridement. He reports 3 wks of swelling at R calf w/ severe pain. Swelling subsided greatly since 2 days ago. He denies illness symptoms such as fever/chills, cough, n/v/d. Per records, he had a right SFA and popliteal angioplasty 07/29/22. ED course: cefepime+Flagyl. gen surg contacted, to see patient in ED. Admission Exam Per Admitting Provider General: Grossly A&O. NAD. Cooperative. HEENT: Atraumatic, normocephalic. EOMI Pulm: CTAB. -wheezes, -rales, -rhonchi. No respiratory distress. Cardiac: RRR, -mrg. L wrist AV fistula w/ thrill. Abdominal: Nontender, nondistended, soft. Msk: L BKA. R calf swelling, nontender. No ttp at popliteal area. R ankle wrapped in bandage which is clean/dry/intact. Neuro: Sensation to light touch intact at upper and lower extremities. Moving upper and lower extremities. Integ: Numerous mild skin sores/abrasions at R knee/thigh area, reportedly chronic. Principal Diagnosis Abcess of Right Leg Discharge Exam Constitutional: well developed, well nourished and cooperative Eyes: PERRL, conjunctivae normal, anicteric sclerae ENMT: external ear and nose normal, oropharynx normal Neck: trachea midline, no thyromegaly Respiratory: normal respiratory effort, lungs clear to auscultation Cardiovascular: RRR, no murmur, no edema Gastrointestinal (Abdomen): Inspection/Auscultation: abdomen normal to inspection Percussion/Palpation: abdomen soft; abdomen nontender Musculoskeletal: LLE bka Skin: bandages and brace on right lower leg Discharge Data Allergies Allergy/AdvReac Type Severity Reaction Status Date / Time doxycycline Allergy Intermediate Rash Verified 09/30/22 17:43 cephalexin [From Keflex] AdvReac Intermediate ITCHING Verified 09/30/22 17:43 Consultations 09/30/22 17:40 ED Decision to Admit Stat 09/30/22 21:52 Consult General Surgery Routine Consult Nephrology Routine Consult Orthopedic Surgery Routine Consult Vascular Surgery Routine 10/01/22 09:09 Consult Podiatry Routine Procedures Performed Operation Date: 10/14/22 10:40 Actual Procedures p Debridment Right Leg, Delayed Primary Closure Right Leg(Right) - Conner Gemran, GERMANM, MS Ordered Studies 09/30/22 16:16 CT leg [CT tib/fib RT wo con] Stat 10/04/22 09:25 CT abd pelvis oral and IV con Routine 10/07/22 US leg [US extremity non-vascular ltd] Routine 10/08/22 00:38 MR lower leg RT wo con Routine Hospital Course (1) Abscess of right le62 y/o male w/ PMHx of ESRD on TuThSat dialysis, anemia, hypertension, DM2, PAD, HFmrEF who presented with right lower extremity swelling, admitted for management of RLE abscess. RLE abscess: s/p I&D 10/01 and 10/10 - MRI RLE on 10/07/2022 showed abscess measuring 1.8 cm x 7.4 cm x 20 cm w/ percutaneous drain of the gastrocnemius. 400ml purulent fluid expressed intraoperatively and on subsequent days initially placed on wound vac, currently dc'd post wound closure - 09/30 wound culture w/ rare amounts of MSSA and moderate Bacteroides fragilis (no sensitivities). 10/01 wound culture w/ moderate Bacteroides fragilis. - 10/10 gram stain w/ rare gram pos cocci, no growth to date. 09/30 blood culture w/o growth. - Wound closure per ortho 10/14/22 - started on IV ceftriaxone 2g daily and Flagyl q8h, appropriate for ESRD on dialysis. Temporary interruption on 10/11, restarted after. - Pain controlled w/ prn Tylenol, oxycodone per renal adjustment to 2.5mg q8h, Dilaudid 0.5mg (Q8H) May control pain with tylenol, oxycodone in outpatient setting - Continue encouraging use of AFO brace. - Dispo plan: Marco Achristy Kei, does not need wound vac at this time - will discharge on cefdinir 300mg BID and Flagyl 500mg q8h for 3 weeks End stage renal disease - Home dialysis continued here [facility] (was MWF schedule prior to senior living). Hold AM antihypertensives on dialysis days. Episodic hypotension during noted. - Nephrology following, Renally dosed medications for <10 egfr. - No lab draws in LUE - Sevelamer held since 10/05 for hypophos of 1.3 on 10/04/22, since resolved. Protein-calorie malnutrition - Nutrition consulted. Continue Nephrocaps. Dietary recommendations provided. Liberalized diet by removing HH, DM2 qualifiers, but will keep dialysis renal. Hypertension - Continue metoprolol succinate 25 mg PO BID and hydralazine 25 mg PO TID Normocytic anemia: chronic - multifactorial: ESRD, malnutrition - stable at low 8s Mixed systolic and diastolic congestive heart failure -06/2022 echo w/ EF 35-40% (see paper chart). Mixed systolic and diastolic CHF. Diabetes mellitus - 5.2 on 10/02/22. Not on medication. Peripheral artery disease - Per scanned vascular surgery report, had 07/29/22 RLE angiogram w/ right SFA and popliteal angioplasty. He had hospitalization during which he had RLE/Achilles tendon wound debridement. Continue home baby ASA and statin. - 10/01/22 vascular consult: No indications for vascular intervention. (2) Dialysis patient: (3) Anemia: (4) History of below knee amputation: (5) Physical deconditioning: (6) PAD (peripheral artery disease): (7) Diabetes: (8) End-stage renal disease on hemodialysis: (9) Hypertension: (10) Obesity: (11) Anemia due to chronic kidney disease: (12) Systolic and diastolic CHF, chronic: Total Time Total Time Spent Total Time Spent (In Minutes): see attending attestation Discharge Plan Discharge Items Patient Disposition: Transfer Nursing Home Fac Reason For Visit: right leg wound Discharge Diagnosis: right leg abscess Activity: Per Instructions section Non-emergency contact: Primary Care Provider and Surgeon Call non-emergency contact if: you have any medication questions, you have a fever, your wound has increased redness and your wound has increased drainage Follow-up/Referrals: Ashley Villagran DO [Primary Care Provider] - Diet: Carb Consistent or DM2 Addtl Attending Provider Instructions: 62 y/o male w/ PMHx of ESRD on TuThSat dialysis, anemia, hypertension, DM2, PAD, HFmrEF who presented with right lower extremity swelling, admitted for management of RLE abscess. RLE abscess: s/p I&D 10/01 and 10/10 - MRI RLE on 10/07/2022 showed abscess measuring 1.8 cm x 7.4 cm x 20 cm w/ percutaneous drain of the gastrocnemius. 400ml purulent fluid expressed intraoperatively and on subsequent days initially placed on wound vac, currently dc'd post wound closure - 09/30 wound culture w/ rare amounts of MSSA and moderate Bacteroides fragilis (no sensitivities). 10/01 wound culture w/ moderate Bacteroides fragilis. - 10/10 gram stain w/ rare gram pos cocci, no growth to date. 09/30 blood culture w/o growth. - Wound closure per ortho 10/14/22 - started on IV ceftriaxone 2g daily and Flagyl q8h, appropriate for ESRD on dialysis. Temporary interruption on 10/11, restarted after. - Pain controlled w/ prn Tylenol, oxycodone per renal adjustment to 2.5mg q8h, Dilaudid 0.5mg (Q8H) May control pain with tylenol, oxycodone in outpatient setting - Continue encouraging use of AFO brace. - Dispo plan: Michaela Choudhury, does not need wound vac at this time - will discharge on cefdinir 300mg BID and Flagyl 500mg q8h for 3 weeks End stage renal disease - Home dialysis continued here [facility] (was [facility] schedule prior to senior living). Hold AM antihypertensives on dialysis days. Episodic hypotension during noted. - Nephrology following, Renally dosed medications for <10 egfr. - No lab draws in LUE - Sevelamer held since 10/05 for hypophos of 1.3 on 10/04/22, since resolved. Protein-calorie malnutrition - Nutrition consulted. Continue Nephrocaps. Dietary recommendations provided. Liberalized diet by removing HH, DM2 qualifiers, but will keep dialysis renal. Hypertension - Continue metoprolol succinate 25 mg PO BID and hydralazine 25 mg PO TID Normocytic anemia: chronic - multifactorial: ESRD, malnutrition - stable at low 8s Mixed systolic and diastolic congestive heart failure -06/2022 echo w/ EF 35-40% (see paper chart). Mixed systolic and diastolic CHF. Diabetes mellitus - 5.2 on 10/02/22. Not on medication. Peripheral artery disease - Per scanned vascular surgery report, had 07/29/22 RLE angiogram w/ right SFA and popliteal angioplasty. He had hospitalization during which he had RLE/Achilles tendon wound debridement. Continue home baby ASA and statin. - 10/01/22 vascular consult: No indications for vascular intervention. Pending Studies at Discharge: No Stand-Alone Forms: My [facility] Skilled Items Patient informed of condition?: Yes DNR: No Discharge Level of Care: Skilled Communicable Disease: No Discharge Prognosis: Stable Lines: None Urinary Catheter: No Medications and DC Order Prescriptions: New metronidazole 500 mg Tablet 500 mg PO Q8H 20 Days Qty: 60 0RF cefdinir 300 mg Capsule 300 mg PO BID 20 Days Qty: 40 0RF Continued atorvastatin 20 mg Tablet 20 mg PO QPM Qty: 30 0RF aspirin 81 mg Tablet,Delayed Release (Dr/Ec) 81 mg PO QAM Qty: 30 0RF multivitamin Tablet 1 tab PO DAILY silver sulfadiazine 1 % cream 1 applic TOPICAL TID Rx Instructions: CLEANSE RIGHT POSTERIOR CALF AND RIGHT LATERAL ANKLE W/SALINE OR WOUND CLEANSER. APPLY TO BASE AND COVER WITH ROBERT & PATI WRAP. CHANGE TID AND PRN. acetaminophen [Tylenol] 325 mg Tablet 650 mg PO Q4H MDD 3 GRAMS/24 HOURS PRN (Reason: PAIN/FEVER) trazodone 50 mg tablet 50 mg PO HS hydralazine 25 mg tablet 25 mg PO TID tramadol 50 mg Tablet 50 mg PO Q6H PRN (Reason: Pain) potassium chloride 20 mEq tablet,ER particles/crystals 20 meq PO QDL Rx Instructions: DO NOT CRUSH pantoprazole 40 mg tablet,delayed release (DR/EC) 40 mg PO AMHS triamcinolone acetonide 0.1 % ointment 1 applic TOPICAL BID Rx Instructions: APPLY TO RIGHT FOOT SCAB. folic acid 1 mg tablet 1 mg PO QDL gabapentin 100 mg capsule 100 mg PO QDL metoprolol succinate 25 mg tablet extended release 24 hr 25 mg PO BID Rx Instructions: TAKES AT LUNCH & HS. nystatin 100,000 unit/gram Powder 1 applic TOPICAL BID Rx Instructions: UNDER BREASTS, ABD FOLDS, GROIN diclofenac sodium 1 % Gel 1 g TOPICAL QID PRN (Reason: Pain) Rx Instructions: APPLY TO RIGHT CALF NEEDED. menthol-zinc oxide [Calmoseptine] 0.44-20.6 % Ointment 1 applic TOPICAL BID PRN (Reason: SCARUM/BUTTOCKS NEEDED) Artificial Tears (cmc) 1 % Drops 1 drp OPB QID polyethylene glycol 3350 [Miralax] 17 gram powder in packet 17 g PO BIDM Discontinued sevelamer HCl [Renagel] 800 mg Tablet 2,400 mg PO TIDM Qty: 270 0RF amoxicillin-pot clavulanate 500-125 mg tablet 1 tab PO QPM Rx Instructions: MUST BE GIVEN AFTER DIALYSIS. STARTED 09/23/22 FOR 10 DAYS. Discharge Orders: Discharge Order (Routine); Ordered 10/16/22 Ordered By: Crystal Partida Admission Data Admit Date/Time: 09/30/22 19:35 Attending Provider: Rashaun Hamilton Admit Provider: Jonah Baugh Primary Care Provider: Ashley Villagran Other Providers: Rashaun Hamilton ; Colette Zhang ; Miller Mcneal ; John Parsons ; Richard Potts ; Chadwick Kaiser ; Ronny Solomon ; Conner German Other Interventions: Discharge Summary Assessment (RN) Last Done: 10/16/22 13:54 Supervising Physician Co-Signing Physician Notes I personally examined the patient and verified all dhillon points of history and exam, discussed case, and agree with decision making with Dr Partida feels OK to go to SNF. appreciate podiatry input Vitals noted, in general he is awake and alert pleasant no distress. HEENT normocephalic atraumatic mucous membranes moist. Breathing unlabored no accessory muscle use good effort. Skin shows no rashes no pallor or icterus. Right lower extremity is dressed, no erythema tracking beyond dressing. Right leg infection with concern on gangrenefortunately improved nicely postop, required prolonged inpatient wound control/wound VAC, now has had closureno longer needs vac. ongoing abx. outpt podiatry follow up. ongoign nephro follow up Resident Activity Tracking Resident Involvement: Resident Care Provided Care Provided: Adult [facility] Medicine
[2022-10-16] MEDS: METOPROLOL SUCC 25MG EXT REL TAB PO SCH (12:51)
[2022-10-16] MEDS: POTASSIUM CHLORIDE CRTAB 20 MEQ TABCR PO SCH (12:51)
[2022-10-16] MEDS: GABAPENTIN 100 MG CAP PO SCH (12:51)
[2022-10-16] MEDS ORDERED: metroNIDAZOLE 500 MG TAB PO SCH (14:00)
--- NOTE | 2022-10-16 14:28 | Nephrology Progress Note ---
Date of Service October 16, 2022 Assessment & Plan (1) End-stage renal disease on hemodialysis: (2) PAD (peripheral artery disease): (3) Abscess of right leg: (4) Secondary hyperparathyroidism of renal origin: (5) Anemia due to chronic kidney disease: Plan 62 yo m with end-stage renal disease secondary to diabetic nephropathy, has been on dialysis now TTS at [facility] [place]. Has history of significant peripheral vascular disease, right lower extremity ulcer and osteomyelitis requiring multiple hospitalization over last few months. Admitted to the hospital on 10/01 with right leg abscess. Had incision and drainage done currently has wound VAC in place. Overall asymptomatic, blood pressure well controlled, volume status acceptable, electrolyte acceptable. --dialysis tomorrow --Left arm nephrology precaution, dose medications for eGFR less than 10 --continue on Nephrocaps and phosphate binder Will follow Admission and Anticipated Discharge Date Admission Date: September 30, 2022 Joseline Esteves was seen and evaluated this morning overall he is feeling well. On VAC was removed and had skin closure. Review of Systems Review of Systems: detailed review of system was otherwise unremarkable. Physical Exam Constitutional: WD/WN, vitals as above + ill appearing; no acute distress Eyes: + anicteric sclerae ENMT: Ears: no hearing impairment Respiratory: Auscultation: lungs clear to auscultation bilaterally Cardiovascular: Rate/Rhythm: regular rate and regular rhythm Heart Sounds: normal S1 and normal S2 Extremities: + AV fistula (with + thrill and Bruit) Skin: + lesion, + ulcer, + skin atrophy and + erythema Neurologic: no focal motor deficits Psychiatric: Orientation: alert and oriented x 3 Results & Data Vital Signs (Past 12 Hours) Vital Signs Temp Pulse Resp BP Pulse Ox O2 Del Method 10/16/22 13:54 36.8 C 79 18 120/78 98 10/16/22 07:09 36.5 C 76 18 120/78 Room Air PG Care Time/CCT Total # of Minutes Spent Total Time Spent with Patient: Total time spent is greater than 50% in coordination of care (as documented) at patient's floor/unit and/or counseling patient: Coding Level of Care Code 53466 SUB INP/OBS CARE 2/35MIN Diagnoses End-stage renal disease on hemodialysis N18.6; Z99.2 PAD (peripheral artery disease) I73.9 Abscess of right leg L02.415 Secondary hyperparathyroidism of renal origin N25.81 Anemia due to chronic kidney disease N18.5; D63.1 Chronic kidney disease stage: stage 5, not on chronic dialysis (5) Anemia due to chronic kidney disease Chronic kidney disease stage: stage 5, not on chronic dialysis Qualified Code(s): N18.5 - Chronic kidney disease, stage 5; D63.1 - Anemia in chronic kidney disease
--- NOTE | 2022-10-16 18:02 | Billing Data ---
Date of Service October 16, 2022 Coding Level of Care Code 89868 IN/OBS DISCH 30 MIN/LESS
[2022-10-16] MEDS ORDERED: CEFDINIR 300 MG CAP PO SCH (21:00)
== END 2022-10-16 15:00 | DRG 579 ==
LOC: ED 15:11 → 3E 19:35 → SUATTDRO 19:35 → 3E 21:50

== ENCOUNTER 2023-01-03 10:52 | Observation (INO) ==
--- NOTE | 2023-01-02 09:58 | Anesthesiology Consultation ---
Date of Service January 02, 2023 Assessment & Plan (1) Encounter for pre-operative examination: Chart Review Chart Review: Acceptable Risk for Surgery (pending anesthesia evaluation DOS ) and Patient NOT seen in Pre Admission Testing - PRP stat DOS due to dialysis - Repeat CXR DOS to anesthesiologist discretion - Check BSG AM DOS -Discussed case with Dr. Moreira- patient can proceed as scheduled due to nature of procedure (tolerated GA x 2 in 09/2022) -COVID screening: Per PAT nursing assessment on 01/02/23. Pt resides at [facility]. No known Covid positive patients in facility. No known COVID-19 positive contacts or current COVID-19 related symptoms. Travel screen negative. Patient vaccinated for Covid. Pt getting rapid Covid test today (01/02/23). Due to no preop PCR Covid test- Monterroso ordered for DOS (pt would need Monterroso regardless due to admission status and possiblity of roommate) Delayed primary closure right leg 10/14/22= Done under GA with Grade 2 view with MAC #3. ETT #7.5. Atraumatic DVL x 1 Leg I&D with wound VAC 10/10/22= Done under GA with Grade 1 view with Glidescope #3. Elective intubation with Glidescope History Surgery Operation Date: 01/03/23 13:00 Proposed Procedures p Right Ankle Debridement - Pancho Jaffe MD Height/Weight Height: 5 ft 5 in Weight: 106.594 kg Allergies Allergy/AdvReac Type Severity Reaction Status Date / Time doxycycline Allergy Intermediate Rash Verified 01/02/23 10:49 cephalexin [From Keflex] AdvReac Intermediate ITCHING Verified 01/02/23 10:49 Medications Home Medications Medication Instructions Recorded Confirmed Last Taken acetaminophen 325 mg tablet 650 mg PO Q4H PRN PAIN/FEVER 09/30/22 01/02/23 Unknown (Tylenol) carboxymethylcellulose sodium 1 % 1 drp OPB QID 09/30/22 01/02/23 09/30/22 13:00 eye drops (Artificial Tears (carboxymethylcellulose)) folic acid 1 mg tablet 1 mg PO QDL 09/30/22 01/02/23 09/30/22 gabapentin 100 mg capsule 100 mg PO HS 09/30/22 01/02/23 09/30/22 hydralazine 25 mg tablet 25 mg PO UD 09/30/22 01/02/23 09/30/22 13:00 metoprolol succinate 25 mg 25 mg PO BID 09/30/22 01/02/23 09/30/22 11:30 tablet,extended release 24 hr multivitamin 1 tab PO DAILY 09/30/22 01/02/23 09/30/22 pantoprazole 40 mg tablet,delayed 40 mg PO QAM 09/30/22 01/02/23 09/30/22 09:00 release polyethylene glycol 3350 17 gram 17 g PO QPM 09/30/22 01/02/23 09/30/22 09:00 oral powder packet (Miralax) trazodone 50 mg tablet 50 mg PO HS 09/30/22 01/02/23 09/29/22 triamcinolone acetonide 0.1 % 1 applic topical BID 09/30/22 01/02/23 Unknown topical ointment oxycodone 5 mg capsule 5 mg PO Q4H PRN Pain 12/04/22 01/02/23 Unknown Lidocaine 3% 1 dose topical Q2H PRN Pain 01/02/23 01/02/23 Unknown Theracalazinc 1 dose topical UD PRN . 01/02/23 01/02/23 Unknown aspirin 81 mg tablet,delayed 81 mg PO HS 01/02/23 01/02/23 Unknown release atorvastatin 20 mg tablet 20 mg PO QPM 01/02/23 01/02/23 Unknown povidone-iodine 10 % topical 1 applic topical UD 01/02/23 01/02/23 Unknown ointment protein supplement 1 ea PO BID 01/02/23 01/02/23 Unknown Past Medical History Medical History (Updated 01/02/23 @ 11:26 by Kavita Lee PA-C) Abscess of right lower extremity Anemia due to chronic kidney disease Atherosclerotic heart disease Chronic kidney disease Complications of amputation stump left leg Diabetes mellitus, type 2 Dialysis patient ESRD (end stage renal disease) on dialysis Tu, , Sat HTN (hypertension) Hyperparathyroidism Iron deficiency anemia Major depressive disorder Nephrotic syndrome Neuropathy Obesity Osteomyelitis PAD (peripheral artery disease) s/p RLE angiogram with right SFA and popliteal angioplasty Peripheral vascular disease Systolic and diastolic CHF, chronic EF 35-40% per 06/2022 ECHO Past Family History Family History Other Diabetes Family history non-contributory Hypertension Past Surgical History Surgical History Amputated toe of left foot Amputated toe of right foot History of angioplasty of peripheral vessel History of below knee amputation Left side per records S/P arteriovenous (AV) fistula creation Status post incision and drainage left foot wound Social History Smoking Status: Unknown if ever smoked Testing Laboratory Results 01/01/23= WBC: 4.93 H/H: 11.1/36.6 PLATELETS: 164 PT: 16.1 PTT: 33 INR: 1.3 Electrocardiogram Date: 09/30/22 Poor data quality NSR at 83 bpm Low voltage QRS Nonspecific ST and T wave abnormality Prolonged QT When compared to EKG from July 192aberrant conduction is no longer present, OK interval has decreased, QRS duration has decreased per cardio Chest X-Ray Date: 07/19/22 FINDINGS: No pneumothorax. No pleural effusions. The heart remains enlarged. Perihilar airspace opacities and interstitial thickening has slightly improved. This favors a resolving pulmonary edema versus an atypical pneumonitis. IMPRESSION: Perihilar airspace opacities and interstitial thickening has slightly improved. This favors a resolving pulmonary edema versus an atypical pneumonitis. Echocardiogram Date: 06/26/22 EF: 35-40% LV Function: dysfunctional Top normal LV size with moderately reduced systolic function Global hypokinesis with severe hypokinesis involving the anterior lateral wall. Mild concentric LVH Severe left atrial dilation Sclerotic aortic valve without significant stenosis. Mild pulmonary hypertensionestimated RVSP 39 mmHg Technically difficult study with poor image qualitysomewhat enhanced with IV Definity. Compared to prior study on 10/01/2016, LV systolic function now appears moderately reduced, however image quality is poor. Other Testing Abdomen/Pelvis CT 10/04/22= Mild nodularity of the liver surface. This raises the possibility of cirrhosis. No hepatic lesions identified. Mild splenomegaly. Suspected infarct within the anterior superior aspect of the spleen which is new since CT of July 19, 2020 but likely subacute to chronic given volume loss. Moderate sized bilateral pleural effusions, mild interstitial pulmonary edema, anasarca and a small amount of ascites. No bowel obstruction. No bowel wall thickening. No change in multiple mildly enlarged paraesophageal, iliac chain and inguinal lymph nodes since CT of July 19, 2022. These are probably benign. Extensive vascular calcification. Cholelithiasis.
--- NOTE | 2023-01-02 11:15 | PAT Medication Instructions ---
Medication Instructions Date of Service January 02, 2023 Home Medications acetaminophen 325 mg tablet (Tylenol) 650 mg PO Q4H PRN PAIN/FEVER carboxymethylcellulose sodium 1 % eye drops (Artificial Tears (carboxymethylcellulose)) 1 drp OPB QID folic acid 1 mg tablet 1 mg PO QDL gabapentin 100 mg capsule 100 mg PO HS hydralazine 25 mg tablet 25 mg PO UD metoprolol succinate 25 mg tablet,extended release 24 hr 25 mg PO BID multivitamin 1 tab PO DAILY pantoprazole 40 mg tablet,delayed release 40 mg PO QAM polyethylene glycol 3350 17 gram oral powder packet (Miralax) 17 g PO QPM trazodone 50 mg tablet 50 mg PO HS triamcinolone acetonide 0.1 % topical ointment 1 applic topical BID oxycodone 5 mg capsule 5 mg PO Q4H PRN Pain Lidocaine 3% 1 dose topical Q2H PRN Pain Theracalazinc 1 dose topical UD PRN aspirin 81 mg tablet,delayed release 81 mg PO HS atorvastatin 20 mg tablet 20 mg PO QPM povidone-iodine 10 % topical ointment 1 applic topical UD protein supplement 1 ea PO BID Continue as directed hydralazine 25 mg tablet 25 mg PO UD ASK your prescriber and surgeon aspirin 81 mg tablet,delayed release 81 mg PO HS STOP taking 24 hours before surgery (or as soon as possible if surgery is within 24 hours) triamcinolone acetonide 0.1 % topical ointment 1 applic topical BID Lidocaine 3% 1 dose topical Q2H PRN Pain Theracalazinc 1 dose topical UD PRN povidone-iodine 10 % topical ointment 1 applic topical UD DO NOT take the morning of surgery folic acid 1 mg tablet 1 mg PO QDL multivitamin 1 tab PO DAILY protein supplement 1 ea PO BID Take morning of surgery With a small sip of water, OTHERWISE NOTHING TO EAT OR DRINK AFTER MIDNIGHT: acetaminophen 325 mg tablet (Tylenol) 650 mg PO Q4H PRN PAIN/FEVER (if needed) carboxymethylcellulose sodium 1 % eye drops (Artificial Tears (carboxymethylcellulose)) 1 drp OPB QID metoprolol succinate 25 mg tablet,extended release 24 hr 25 mg PO BID pantoprazole 40 mg tablet,delayed release 40 mg PO QAM oxycodone 5 mg capsule 5 mg PO Q4H PRN Pain (if needed) Take evening before surgery acetaminophen 325 mg tablet (Tylenol) 650 mg PO Q4H PRN PAIN/FEVER (if needed) carboxymethylcellulose sodium 1 % eye drops (Artificial Tears (carboxymethylcellulose)) 1 drp OPB QID gabapentin 100 mg capsule 100 mg PO HS metoprolol succinate 25 mg tablet,extended release 24 hr 25 mg PO BID polyethylene glycol 3350 17 gram oral powder packet (Miralax) 17 g PO QPM trazodone 50 mg tablet 50 mg PO HS oxycodone 5 mg capsule 5 mg PO Q4H PRN Pain (if needed) atorvastatin 20 mg tablet 20 mg PO QPM protein supplement 1 ea PO BID Other Notes If you have any questions please call us at [phone] or [phone] or [phone] or [phone]
[~2023-01-03 10:52] MED LIST changes: +ALLERGY Noted to ORDERED Medication SCH; -AMLO-114 PO; -CALC1TAB54 PO; -CEFAZOLIN 1000MG IV PUSH 7.5 ML IV SCH; -CEFAZOLIN 3000MG IV PUSH 22.5 ML IV STA; +CLINDA 900 MG **Premixed Bag IV SCH; -CLOP1TAB5 PO; -D5W AND 1/4NSS 1000 ML IV SCH; +EPINEPHrine INJ 1 MG/ML AMP ONE; -FENTANYL CITRATE INJ 50 MCG/1 ML 2 ML VIAL IV ONE; -FENTANYL CITRATE INJ 50 MCG/1 ML 2 ML VIAL ONE; -FRS/40 PO; +LACTATED RINGER'S 1,000 ML IV SCH; -LIDOCAINE HCL 1% 20 ML VIAL INJ ONE; -LISI40TA PO; -METO100T14 PO; -MIDAZOLAM HCL 1 MG/ML 2ML VIAL IV ONE; -MIDAZOLAM HCL 1 MG/ML 2ML VIAL ONE; -OPTIRAY 300 IV ONE; +ROPIVACAINE 0.5% 5 MG/ML 30 ML VIAL ONE; +SODIUM CHLORIDE 0.9% 1000ML IV SCH; -SPT/ PO
[2023-01-03 11:40] LABS: BUN Creatinine Ratio 11.8 (10-20); Calcium 9.4 mg/dl (8.6-10.3); Creatinine Clr Calc Pharmacy 36.1 ml/min; Est GFR (African American) 31.9 ml/min; Est GFR (Non-African American) 27.6 ml/min; Potassium 4.4 mmol/L (3.5-5.1)
--- NOTE | 2023-01-03 12:33 | History & Physical Bridge Note ---
Date of Service January 03, 2023 History & Physical Bridge Note I have examined the patient, reviewed the History & Physical and in the interval since the performance of the History & Physical I have noted the following changes of clinical significance: no changes noted
[2023-01-03] MEDS ORDERED: ceFAZolin 2000MG 2,000 MG/15 ML SYR IV ONE (13:08)
[2023-01-03] MEDS ORDERED: ceFAZolin 2,000 MG/15 ML IV PUSH IV ONE (13:14)
[2023-01-03] MEDS ORDERED: LIDOCAINE 2% 2 ML VIAL/AMP(20MG/ML) INFIL ONE ×2 (13:19→13:27)
[2023-01-03] MEDS ORDERED: PROPOFOL IV EMULSION 10 MG/ML 20 ML VIAL IV ONE ×4 (13:19→14:52)
[2023-01-03] MEDS ORDERED: ONDANSETRON INJ 2 MG/ML 2 ML VIAL ONE (13:21)
[2023-01-03] MEDS ORDERED: MIDAZOLAM HCL 1 MG/ML 2ML VIAL ONE (13:27)
[2023-01-03] MEDS ORDERED: VANCOMYCIN HCL 1000MG/20ML VIAL ONE (13:53)
[2023-01-03] MEDS ORDERED: GENTAMICIN SULFATE 40 MG/ML 2 ML VIAL ONE (13:53)
[2023-01-03] MEDS ORDERED: ATROPINE SULFATE 0.1 MG/ML 10ML SYR IV PRN (14:09)
[2023-01-03] MEDS ORDERED: ePHEDrine sulfate 50 MG/ML AMP IV PRN (14:09)
[2023-01-03] MEDS ORDERED: fentaNYL citrate PF 100 MCG/2 ML VIAL ONE (14:18)
[2023-01-03] MEDS ORDERED: KETAMINE 50 MG/5 ML SYRINGE ONE (14:23)
--- NOTE | 2023-01-03 15:24 | Operative Report ---
Post Operative Report Pre & Post Diagnosis Operation Date: 01/03/23 13:00 <No data on this case meets the specified criteria> Multiple open wounds of the right ankle status post I&D of right leg abscess. Pre and postop diagnosis same I identified the patient and participated in the time-out.: Yes Procedure Operation Date: 01/03/23 13:00 <No data on this case meets the specif Sharp excisional debridement less than 20 cm, application of wound VAC Surgeon Pancho Jaffe MD Whipper Micheal Shabazz fellow, Kaur Acevedo physicians phlebotomy lab assistant Estimated Blood Loss 15 Findings Consistent with Post-Op Diagnosis Specimens Culture of right Achilles for Gram stain aerobic and anaerobic. Specimen number #2 is right Achilles specimen #1 is right heel eschar Drains Wound VAC Anesthesia Type MAC Regional Complications none Disposition Accompanied Patient To Recovery: No Disposition: Recovery Room Indications Danielito is 62. Multiple medical problems including diabetes, peripheral vascular disease and kidney failure. He is status postdebridement of a right leg abscess back in September. That has mostly healed with the exception of a 2 cm diameter area over the Achilles insertion where there is exposed necrotic Achilles tendon and a 4 cm area posterior lateral heel where there is a thick black eschar present. He has been seen and evaluated by vascular surgery in [place]. Angioplasty has been performed. Follow-up studies have been indeterminant regarding his ankle-brachial indices and circulation because of calcified vessels. He also has a wound over the lateral aspect of the lateral malleolus. X-rays and MRI do not show any conclusive evidence of osteomyelitis. The patient wishes to preserve his limb and would like to entertain surgical intervention to debride the wounds and get his wounds to heal. Although it is not specifically mentioned in previous dictations by the previous surgeon, the physical exam and MRI findings are consistent with surgical absence of the Achilles tendon with the exception of the insertion. Description of Procedure Informed consent. Patient identified. He identified the operative site as the right foot. I marked with my initials. Preop surgical timeout performed. Preop dose of IV antibiotics given. He was taken to the operating and positioned supine on the OR table. The anesthetic was administered and he was then positioned decubitus with the right side up. Beanbag utilized. Bony prominences inspected and padded. He has a BKA on the left. Axillary roll inserted. Padded bone foam was used under the right leg. The leg was prescribed and then prepped and draped with Betadine in the usual sterile fashion. DVT prophylaxis intraoperatively not possible given the absence of the lower limb on the left side. Preop antibiotics were clindamycin. There was a 1 cm diameter superficial wound over the right lateral malleolus with dried eschar on top of it. This was debrided with pickups. There was a thin granulating base with no exposed bone. This was gently debrided with a curette to induce some bleeding. At the conclusion of the procedure it was to be dressed with Aquacel Ag. There was a 4 cm eschar over the heel which was sharply excised with scalpel. This was only 2 to 3 mm thick revealing a healthy bleeding bed. There was some areas of superficial vein thrombosis which were debrided and some areas of hypovascular fat centrally which were debrided. There was no exposed calcaneus and no purulence was encountered. There was a wound just above the Achilles insertion directly posteriorly. This was 2 cm in diameter with exposed necrotic Achilles tendon. Achilles tendon could not be palpated proximal. I extended this incision about 1-1/2 to 2 cm proximal and distal. Full-thickness skin flaps were elevated. The Achilles tendon was absent in the proximal wound. I then shelled out the necrotic exposed distal Achilles tendon and resected it off of the calcaneus. I did not directly expose any calcaneus. This was sent for specimen. The eschar was sent for specimen from the heel as #1. number 2 Was the Achilles. 3 L of pulsatile lavage were then used for all the open wounds. There was a healthy bleeding bed in the Achilles wound with periosteum exposed but no bone exposed. There was fat pad and scar tissue from previous surgery but no other notable tendons etc. The surgical incisions were then closed with interrupted 3-0 nylon. Care was taken to protect the skin which was friable where the previous surgery was. This was proximal along the posterior aspect of the leg. I then took 1 stitch and applied it in a near far far near his fashion at the distal extent of the open wound to reapproximate it. Technically the entire wound could have been closed however there would have been space present. I felt that the wound VAC would be a better option. We then applied a wound VAC in the usual fashion. A silver sponge was packed into the posterior wound and a sponge was placed over the posterior lateral heel wound. The VAC was deployed without difficulty. Soft dressing was applied to the ankle with a posterior splint. The posterior splint was constructed in such a fashion as to have a cut out over the heel which bulged out posteriorly effectively limiting pressure on the heel area. Patient was then awakened from anesthesia difficulty taken to recovery in stable condition. Specimens were as mentioned above. Counts were correct and blood loss was 15 cc. At the conclusion of the operation spoke with patient contact. Plan is admitted admission to the hospital. IV antibiotics follow-up on specimens and cultures. Wound care. Medicine consultation for management of his medical problems including dialysis. I attest to the content of the Intraoperative Record and any orders documented therein. Any exceptions are noted below.
--- NOTE | 2023-01-03 16:16 | Anesthesiology Progress Note ---
Date of Service January 03, 2023 Anesthesia Post Procedure Vital Signs Vital Signs: Temp Pulse Pulse Resp BP Pulse Ox O2 Del Method 01/03/23 16:10 66 18 168/68 H 99 Room Air 01/03/23 16:00 67 20 172/55 H 100 Oxymask 01/03/23 15:50 68 16 174/51 H 99 Oxymask 01/03/23 15:42 36.6 C 62 18 148/69 H 100 Oxymask 01/03/23 11:27 36.5 C 65 20 163/76 H 95 Room Air O2 Flow Rate 01/03/23 16:10 01/03/23 16:00 4 01/03/23 15:50 4 01/03/23 15:42 6 01/03/23 11:27 Pain Intensity Right Leg: Pain Intensity: 5 Transfer of Care Handoff Completed per policy Notes Mental Status: alert / awake / arousable Patient Amnestic to Procedure: Yes Nausea / Vomiting: adequately controlled Pain: adequately controlled Airway Patency, RR, SpO2: stable & adequate BP & HR: stable & adequate Hydration State: stable & adequate Anesthetic Complications: no major complications apparent
[2023-01-03] MEDS ORDERED: SODIUM CHLORIDE 0.9% 1000ML 1,000 ML IV SCH (17:20)
[2023-01-03] MEDS ORDERED: TAMSULOSIN HCL 0.4 MG CAP PO PRN (17:20)
[2023-01-03] MEDS ORDERED: ACETAMINOPHEN 325 MG TAB PO PRN (17:20)
[2023-01-03] MEDS ORDERED: PHARMACY GLYCEMIC MGMT CONSULT PRN (17:20)
[2023-01-03] MEDS ORDERED: NALOXONE HCL 0.4 MG/1 ML VIAL/CARP IV PRN (17:20)
[2023-01-03] MEDS ORDERED: ONDANSETRON INJ 2 MG/ML 2 ML VIAL IV PRN (17:20)
[2023-01-03] MEDS ORDERED: METOCLOPRAMIDE HCL INJ 5 MG/ML 2 ML VIAL IV PRN (17:20)
[2023-01-03] MEDS ORDERED: GLUCOSE 40% GEL 15 GM TUBE PO PRN (18:15)
[2023-01-03] MEDS ORDERED: DEXTROSE 50% 50 ML SYRINGE IV PRN (18:15)
[2023-01-03] MEDS ORDERED: CARBOHYDRATES FOR HYPOGLYCEMIA PO PRN (18:15)
[2023-01-03] MEDS ORDERED: GLUCOSE 10 TAB/TUBE PO PRN (18:15)
[2023-01-03] MEDS ORDERED: GLUCAGON FOR INJ 1 MG VIAL IM PRN (18:15)
[2023-01-03] MEDS: METOPROLOL SUCC 25MG EXT REL TAB PO SCH (19:38)
[2023-01-03] MEDS: ATORVASTATIN 20 MG TAB PO SCH (19:38)
[2023-01-03] MEDS: GABAPENTIN 100 MG CAP PO SCH (19:38)
[2023-01-03] MEDS: traZODone HCL 50 MG TAB PO SCH (19:38)
[2023-01-03] MEDS: POLYETHYLENE (MIRALAX) 17 GM PACK PO SCH (19:39)
[2023-01-03] MEDS: ASPIRIN 81 MG ECTAB PO SCH (19:39)
[2023-01-03] MEDS: hydrALAZINE HCL 25 MG TAB PO SCH (19:39)
[2023-01-03] MEDS: PROSOURCE NO CARB 30 ML/PKT PO SCH (19:41)
[2023-01-03] MEDS: ARTIFICIAL TEARS OPB SCH (19:41)
[2023-01-03] MEDS: traMADol HCL 50 MG TABLET PO PRN ×2 (19:45→23:46)
[2023-01-03] MEDS: INSULIN ASPART PER UNIT CHARGE SC SCH (20:36)
[2023-01-03] MEDS: CLINDAMYCIN/D5W 600 MG/50 ML BAG IV SCH (21:05)
[2023-01-04] MEDS: traMADol HCL 50 MG TABLET PO PRN ×3 (04:16→12:43)
[2023-01-04] MEDS: CLINDAMYCIN/D5W 600 MG/50 ML BAG IV SCH ×2 (05:11→20:59)
[2023-01-04 06:17] LABS: Hematocrit (blood only) 31.4 % (42.0-52.0); Mean Corpuscular Hemoglobin 28.2 pg (25.0-34.0); Mean Corpuscular Hgb Conc 31.8 g/dL (32.0-36.0); Mean Corpuscular Volume 88.7 fL (80.0-100.0); Mean Platelet Volume 11.6 fL (9.4-12.4); Platelet Count 162 K/uL (130-400); RDW Coefficient of Variation 16.4 % (11.5-14.5); Red Blood Count 3.54 M/uL (4.70-6.10); White Blood Count 4.24 K/ul (4.8-10.8)
[2023-01-04 06:40] LABS: BUN Creatinine Ratio 13.8 (10-20); Calcium 9.5 mg/dl (8.6-10.3); Creatinine Clr Calc Pharmacy 37.6 ml/min; Est GFR (African American) 28.7 ml/min; Est GFR (Non-African American) 24.7 ml/min
--- NOTE | 2023-01-04 08:28 | Pharmacy Report ---
Pharmacy Glycemic Sign Off Nt - Date of Service January 04, 2023 - Assessment & Plan ASSESSMENT: * Pharmacy was consulted by Kaur Acevedo PA-C on 01/03/23 for glycemic control and to write orders per [facility] inpatient glycemic control protocol. * Major changes made by pharmacy to antidiabetic regimen include: * addition of Novolog * Patient has been receiving/requiring no insulin and is not on any antidiabetic medications as an outpatient * BSGs ranging 79-92 mg/dl * Do not anticipate further changes in patient status that would quickly deteriorate glycemic control (i.e. patient to be NPO for upcoming procedure, steroids tapering, starting tube feedings, etc). PLAN FOR INPATIENT GLYCEMIC CONTROL: No changes needed to current regimen. * No basal insulin * Continue NovoLog per scale ACHS/Q6hrs while NPO * Goal range = 120- 160 mg/dl * CF = 35 mg/dl/unit * No carb coverage * Pharmacy is signing off of glycemic consult and will no longer be making adjustments to inpatient regimen. Please feel free to re-consult if needed. Thank you.
[2023-01-04] MEDS: INSULIN ASPART PER UNIT CHARGE SC SCH ×4 (08:37→20:59)
[2023-01-04] MEDS: hydrALAZINE HCL 25 MG TAB PO SCH ×2 (08:40→19:27)
[2023-01-04] MEDS: PANTOprazole 40 MG TAB PO SCH (08:40)
[2023-01-04] MEDS: METOPROLOL SUCC 25MG EXT REL TAB PO SCH ×2 (08:40→19:28)
[2023-01-04] MEDS: MULTIVITAMIN TAB PO SCH (08:40)
[2023-01-04] MEDS: PROSOURCE NO CARB 30 ML/PKT PO SCH ×2 (08:41→19:29)
[2023-01-04] MEDS: ARTIFICIAL TEARS OPB SCH ×4 (08:48→19:29)
[2023-01-04 09:10] LABS: Estimated Average Glucose 85 mg/dl; Hemoglobin A1C 4.6 % (4.5-5.6)
[2023-01-04] MEDS: FOLIC ACID 1 MG TAB PO SCH (10:46)
--- NOTE | 2023-01-04 12:13 | Nephrology Consultation ---
Date of Consultation January 04, 2023 Assessment & Plan (1) End-stage renal disease on hemodialysis: (2) Hypertension: (3) Abscess of right leg: (4) Anemia due to chronic kidney disease: (5) PAD (peripheral artery disease): (6) Diabetes: Plan End-stage renal disease on hemodialysis admitted for elective right leg abscesses debridement and wound VAC placement, on 01/03/2023. Last dialysis was . Currently electrolyte, volume status acceptable although blood pressure staying high. -- Continue to monitor over the weekend and plan for dialysis Friday. Advised to limit fluid intake to less than 1200 mL per day and avoid high potassium food. Check electrolyte and volume status tomorrow for any need for emergency dialysis. -- Start on amlodipine 5 mg p.o. daily and increase dose as needed. -- Epogen on Friday with dialysis -- continue on phosphate binder with meal, dose medications for eGFR less than 10, renal diet. Will follow. Thank you for allowing me to participate in your patient's care. It was a pleasure to see Danielito. History of Present Illness Reason for Consultation: ESRD Attending Physician: Pancho Jaffe MD History of Present Illness Mr. Michael Quinonez is a 62 year-old male with ESRD due to DKD, hypertensive nephrosclerosis, PVD, L BKA, rt foot ulcer and abscess, admitted yesterday, had debridement and wound VAC for right leg abscess. Nephrology consult requested for management of dialysis while inpatient. EMR records are reviewed in detail during patient's visit. Danielito admitted yesterday for elective debridement of left leg abscesses and had surgery yesterday, uneventful. He has history of significant peripheral vascular disease complicated by right leg abscesses and chronic nonhealing ulcer. Has been following with wound care. Previously had debridement in September. Past medical history significant for end-stage renal disease secondary to diabetic nephropathy, dialysis at [facility] via L forearm AVF, had dialysis . He has been losing weight over last few months and his estimated dry weight has been adjusted down, last estimated dry weight at dialysis was 107.5 kg. Currently he is 103.6 kg. Labs are unremarkable with normal electrolyte. No respiratory distress or sign of volume overload although he does not make much urine anymore. He currently is a resident at [facility]. Has history of significant peripheral vascular disease complicated by lower extremity ischemic ulcer, abscess, repeated surgical intervention and wound VAC placement. Prior history of left BKA. Over last 1 year he had multiple hospitalization for right lower extremity ulcer and abscess. Previously had endovascular intervention for SFA. diabetes for many years, lately seems to be fairly controlled. History of morbid obesity however over last 2 years with multiple hospitalization, intervention he lost significant amount of weight. He complain of pain at surgical site this morning but otherwise asymptomatic. No shortness of breath or chest pain. Blood pressure has been consistently running high. Allergies Allergy/AdvReac Type Severity Reaction Status Date / Time cephalexin [From [facility]] Allergy Intermediate ITCHING Verified 01/03/23 13:13 doxycycline Allergy Intermediate Rash Verified 01/03/23 11:23 Home Medications Medication Instructions Recorded Confirmed Type acetaminophen 325 mg tablet 650 mg PO Q4H PRN PAIN/FEVER 09/30/22 01/03/23 History (Tylenol) carboxymethylcellulose sodium 1 % 1 drp OPB QID 09/30/22 01/03/23 History eye drops (Artificial Tears (carboxymethylcellulose)) folic acid 1 mg tablet 1 mg PO QDL 09/30/22 01/03/23 History gabapentin 100 mg capsule 100 mg PO HS 09/30/22 01/03/23 History hydralazine 25 mg tablet 25 mg PO UD 09/30/22 01/03/23 History metoprolol succinate 25 mg 25 mg PO BID 09/30/22 01/03/23 History tablet,extended release 24 hr multivitamin 1 tab PO DAILY 09/30/22 01/03/23 History pantoprazole 40 mg tablet,delayed 40 mg PO QAM 09/30/22 01/03/23 History release polyethylene glycol 3350 17 gram 17 g PO QPM 09/30/22 01/03/23 History oral powder packet (Miralax) trazodone 50 mg tablet 50 mg PO HS 09/30/22 01/03/23 History triamcinolone acetonide 0.1 % 1 applic topical BID 09/30/22 01/03/23 History topical ointment oxycodone 5 mg capsule 5 mg PO Q4H PRN Pain 12/04/22 01/03/23 History Lidocaine 3% 1 dose topical Q2H PRN Pain 01/02/23 01/03/23 History Theracalazinc 1 dose topical UD PRN . 01/02/23 01/03/23 History aspirin 81 mg tablet,delayed 81 mg PO HS 01/02/23 01/03/23 History release atorvastatin 20 mg tablet 20 mg PO QPM 01/02/23 01/03/23 History povidone-iodine 10 % topical 1 applic topical UD 01/02/23 01/03/23 History ointment protein supplement 1 ea PO BID 01/02/23 01/03/23 History Patient History Medical History Abscess of right lower extremity Anemia due to chronic kidney disease Atherosclerotic heart disease Chronic kidney disease Complications of amputation stump left leg Diabetes mellitus, type 2 Dialysis patient ESRD (end stage renal disease) on dialysis Tues, , Fri HTN (hypertension) Hyperparathyroidism Iron deficiency anemia Major depressive disorder Nephrotic syndrome Neuropathy Obesity Osteomyelitis PAD (peripheral artery disease) s/p RLE angiogram with right SFA and popliteal angioplasty -2022 Peripheral vascular disease Systolic and diastolic CHF, chronic EF 35-40% per 06/2022 ECHO Surgical History Amputated toe of left foot Amputated toe of right foot History of angioplasty of peripheral vessel History of below knee amputation Left side per records S/P arteriovenous (AV) fistula creation Status post incision and drainage left foot wound Family History Other Diabetes Family history non-contributory Hypertension Social History (Updated 12/04/22 @ 10:24 by Karolina Fierro RN) Smoking Status: Unknown if ever smoked Second Hand Exposure: No; Preferred Language: Lao Communication Ability: Effective Visual Impairment: Limited Hearing Ability: Hard of Hearing Cloth Covered Helmet Puller Required: No Beliefs That Will Affect Care: None marital status: Single Current Living Situation: Long-Term Current Living Situation Comment: [facility] Feels Safe at Home: Yes Diet: regular caffeine: Yes during the past year weight has: remained stable Seatbelt Use: always Sunscreen Use: No Assistive Devices: Oxygen - at Night, Walker and Wheelchair Review of Systems Review of Systems: detailed review of system was otherwise unremarkable. Physical Exam Constitutional: WD/WN, vitals as above + ill appearing; no acute distress Eyes: + anicteric sclerae ENMT: Ears: no hearing impairment Respiratory: Auscultation: lungs clear to auscultation bilaterally Cardiovascular: Rate/Rhythm: regular rate and regular rhythm Heart Sounds: normal S1 and normal S2 Extremities: + AV fistula (with + thrill and Bruit) Skin: + ulcer; no rashes Neurologic: no focal motor deficits Psychiatric: Orientation: alert and oriented x 3 Results & Data Vital Signs (Past 12 Hours) Vital Signs Temp Pulse Resp BP Pulse Ox O2 Del Method O2 Flow Rate 01/04/23 11:45 36.5 C 69 18 171/69 H 98 Nasal Cannula 1 01/04/23 09:00 Nasal Cannula 2 01/04/23 07:39 36.5 C 71 18 179/78 H 97 Nasal Cannula 1 01/04/23 04:00 36.5 C 74 18 164/58 H 97 Nasal Cannula 1 01/04/23 00:17 36.5 C 76 18 162/71 H 98 Room Air PG Care Time/CCT Total # of Minutes Spent Total Time Spent with Patient: Total time spent is greater than 50% in coordination of care (as documented) at patient's floor/unit and/or counseling patient: Coding Level of Care Code 97211 INT INP/OBS CARE 3/75MIN Diagnoses End-stage renal disease on hemodialysis N18.6; Z99.2 Hypertension I10 Abscess of right leg L02.415 Anemia due to chronic kidney disease N18.5; D63.1 Chronic kidney disease stage: stage 5, not on chronic dialysis PAD (peripheral artery disease) I73.9 Diabetes E11.9 (4) Anemia due to chronic kidney disease Chronic kidney disease stage: stage 5, not on chronic dialysis Qualified Code(s): N18.5 - Chronic kidney disease, stage 5; D63.1 - Anemia in chronic kidney disease
[2023-01-04] MEDS: amLODIPine BESYLATE 5 MG TAB PO SCH (15:39)
--- NOTE | 2023-01-04 16:31 | Hospitalist Consultation ---
Date of Consultation January 04, 2023 Assessment & Plan (1) Diabetic foot ulcer: Per primary service. Antibiotics reinstituted on 01/04. Patient on IV clindamycin 600 mg Q8H Due to elevated weight, placed on heparin 7500 units subq q8h. (2) End-stage renal disease on hemodialysis: Defer to Nephrology service (3) Hypertension: B/P above goal. Resumed metoprolol 25 mg PO BID, and Hydralazine. Patient placed on amlodipine, will be monitoring vital signs. (4) Heart failure with mid-range ejection fraction: Patient currently appears euvolemic. WIll continue to monitor (5) Anemia due to chronic kidney disease: likely due to ESRD. will be monitoring hemoglobin (6) Diabetes: A1C at goal. glycemic management signed off as blood sugars have been at goal. (7) Systolic and diastolic CHF, chronic: as above. History of Present Illness Reason for Consultation: Medical management. Attending Physician: Pancho Jaffe MD History of Present Illness 62 yo male with ESRD due to diabetes, Peripheral vascualr disease, HTN. Patient is here for a debridement of his left leg abscess. He currently is a resident at [facility]. Has history of significant peripheral vascular disease complicated by lower extremity ischemic ulcer, abscess, repeated surgical intervention and wound VAC placement. Patient denies any SOB or chest pain, nausea, vomiting. Hospitalist service consulted for assistance with medical management given multiple comorbidities.. Allergies Allergy/AdvReac Type Severity Reaction Status Date / Time cephalexin [From Keflex] Allergy Intermediate ITCHING Verified 01/03/23 13:13 doxycycline Allergy Intermediate Rash Verified 01/03/23 11:23 Home Medications Medication Instructions Recorded Confirmed Type acetaminophen 325 mg tablet 650 mg PO Q4H PRN PAIN/FEVER 09/30/22 01/03/23 History (Tylenol) carboxymethylcellulose sodium 1 % 1 drp OPB QID 09/30/22 01/03/23 History eye drops (Artificial Tears (carboxymethylcellulose)) folic acid 1 mg tablet 1 mg PO QDL 09/30/22 01/03/23 History gabapentin 100 mg capsule 100 mg PO HS 09/30/22 01/03/23 History hydralazine 25 mg tablet 25 mg PO UD 09/30/22 01/03/23 History metoprolol succinate 25 mg 25 mg PO BID 09/30/22 01/03/23 History tablet,extended release 24 hr multivitamin 1 tab PO DAILY 09/30/22 01/03/23 History pantoprazole 40 mg tablet,delayed 40 mg PO QAM 09/30/22 01/03/23 History release polyethylene glycol 3350 17 gram 17 g PO QPM 09/30/22 01/03/23 History oral powder packet (Miralax) trazodone 50 mg tablet 50 mg PO HS 09/30/22 01/03/23 History triamcinolone acetonide 0.1 % 1 applic topical BID 09/30/22 01/03/23 History topical ointment oxycodone 5 mg capsule 5 mg PO Q4H PRN Pain 12/04/22 01/03/23 History Lidocaine 3% 1 dose topical Q2H PRN Pain 01/02/23 01/03/23 History Theracalazinc 1 dose topical UD PRN . 01/02/23 01/03/23 History aspirin 81 mg tablet,delayed 81 mg PO HS 01/02/23 01/03/23 History release atorvastatin 20 mg tablet 20 mg PO QPM 01/02/23 01/03/23 History povidone-iodine 10 % topical 1 applic topical UD 01/02/23 01/03/23 History ointment protein supplement 1 ea PO BID 01/02/23 01/03/23 History Patient History Medical History Abscess of right lower extremity Anemia due to chronic kidney disease Atherosclerotic heart disease Chronic kidney disease Complications of amputation stump left leg Diabetes mellitus, type 2 Dialysis patient ESRD (end stage renal disease) on dialysis , , Fri HTN (hypertension) Hyperparathyroidism Iron deficiency anemia Major depressive disorder Nephrotic syndrome Neuropathy Obesity Osteomyelitis PAD (peripheral artery disease) s/p RLE angiogram with right SFA and popliteal angioplasty Peripheral vascular disease Systolic and diastolic CHF, chronic EF 35-40% per 06/2022 ECHO Surgical History Amputated toe of left foot Amputated toe of right foot History of angioplasty of peripheral vessel History of below knee amputation Left side per records S/P arteriovenous (AV) fistula creation Status post incision and drainage left foot wound Family History Other Diabetes Family history non-contributory Hypertension Social History Smoking Status: Unknown if ever smoked Second Hand Exposure: No; Preferred Language: [place]an Communication Ability: Effective Visual Impairment: Limited Hearing Ability: Hard of Hearing Hoop Bender Tank Required: No Beliefs That Will Affect Care: None marital status: Single Current Living Situation: Long Term Current Living Situation Comment: [facility] Feels Safe at Home: Yes Diet: regular caffeine: Yes during the past year weight has: remained stable Seatbelt Use: always Sunscreen Use: No Assistive Devices: Oxygen - at Night, Walker and Wheelchair Review of Systems Review of Systems: All systems reviewed & are unremarkable except as noted in HPI & below Physical Exam Physical Exam: General: NAD. HEENT: Atraumatic, normocephalic. EOMI Pulm: CTAB. -wheezes, -rales, -rhonchi. No respiratory distress. Cardiac: RRR, -mrg. L wrist AV fistula w/ thrill. Abdominal: Nontender, nondistended, soft. Results & Data Results & Data Vital Signs (Past 12 Hours) Vital Signs Temp Pulse Resp BP Pulse Ox O2 Del Method O2 Flow Rate 01/04/23 14:41 36.4 C L 69 18 151/49 H 96 Nasal Cannula 1 01/04/23 11:45 36.5 C 69 18 171/69 H 98 Nasal Cannula 1 01/04/23 09:00 Nasal Cannula 2 01/04/23 07:39 36.5 C 71 18 179/78 H 97 Nasal Cannula 1 PG Care Time/CCT Total # of Minutes Spent Total Time Spent with Patient: Total time spent is greater than 50% in coordination of care (as documented) at patient's floor/unit and/or counseling patient: Coding Level of Care Code 20000 IN/OBS CONSULT LVL 3,45M Diagnoses Diabetic foot ulcer E11.621; L97.509 End-stage renal disease on hemodialysis N18.6; Z99.2 Hypertension I10 Heart failure with mid-range ejection fraction I50.22 Anemia due to chronic kidney disease N18.5; D63.1 Chronic kidney disease stage: stage 5, not on chronic dialysis Diabetes E11.9 Systolic and diastolic CHF, chronic I50.42 (5) Anemia due to chronic kidney disease Chronic kidney disease stage: stage 5, not on chronic dialysis Qualified Code(s): N18.5 - Chronic kidney disease, stage 5; D63.1 - Anemia in chronic kidney disease
--- NOTE | 2023-01-04 16:51 | Orthopedic Progress Note ---
Date of Service January 04, 2023 Assessment & Plan (1) Diabetic foot ulcer: Plan: Continue IV clindamycin. Follow-up on cultures. Labs noted. Continue wound VAC. Appreciate nephrology and hospitalist consults. Plan to change wound VAC on Friday and proceed from there. Nonweightbearing on the right leg. Admission and Anticipated Discharge Date Admission Date: January 03, 2023 Subjective Some pain. We will order some oxycodone. Discussed with him the surgical procedure and results. Physical Exam Physical Exam: Wound VAC functioning properly. Reinforced elevation and heel off bed. Does not move toes normally. Has numbness chronically. Capillary refill less than 2 seconds. Dressing clean dry and intact. Results & Data Vital Signs (Past 12 Hours) Vital Signs Temp Pulse Resp BP Pulse Ox O2 Del Method O2 Flow Rate 01/04/23 14:41 36.4 C L 69 18 151/49 H 96 Nasal Cannula 1 01/04/23 11:45 36.5 C 69 18 171/69 H 98 Nasal Cannula 1 01/04/23 09:00 Nasal Cannula 2 01/04/23 07:39 36.5 C 71 18 179/78 H 97 Nasal Cannula 1 Laboratory Results Laboratory Results WBC 4.24 K/ul (4.8-10.8) L 01/04/23 05:50 RBC 3.54 M/uL (4.70-6.10) L 01/04/23 05:50 Hgb 10.0 g/dl (14.0-18.0) L 01/04/23 05:50 Hct 31.4 % (42.0-52.0) L 01/04/23 05:50 MCV 88.7 fL (80.0-100.0) 01/04/23 05:50 MCH 28.2 pg (25.0-34.0) 01/04/23 05:50 MCHC 31.8 g/dL (32.0-36.0) L 01/04/23 05:50 RDW Std Deviation 53.0 fL (36.4-46.3) H 01/04/23 05:50 RDW Coeff of Dorcas 16.4 % (11.5-14.5) H 01/04/23 05:50 Plt Count 162 K/uL (130-400) 01/04/23 05:50 MPV 11.6 fL (9.4-12.4) 01/04/23 05:50 Sodium 137 mmol/L (136-145) 01/04/23 05:50 Potassium 4.0 mmol/L (3.5-5.1) 01/04/23 05:50 Chloride 97 mmol/L (98-107) L 01/04/23 05:50 Carbon Dioxide 33 mmol/L (21-32) H 01/04/23 05:50 Anion Gap 7 (3-11) 01/04/23 05:50 BUN 37 mg/dl (6-23) H 01/04/23 05:50 Creatinine 2.68 mg/dl (0.6-1.4) H 01/04/23 05:50 Est Cr Clr Drug Dosing 37.6 ml/min 01/04/23 05:50 Est GFR ( Amer) 28.7 ml/min 01/04/23 05:50 Est GFR (Non-Af Amer) 24.7 ml/min 01/04/23 05:50 BUN/Creatinine Ratio 13.8 (10-20) 01/04/23 05:50 Glucose 92 mg/dl (70-99(Fasting)) 01/04/23 05:50 POC Glucose 85 mg/dl (70-99) 01/04/23 12:17 Estimat Average Glucose 85 mg/dl 01/04/23 05:50 Hemoglobin A1c 4.6 % (4.5-5.6) 01/04/23 05:50 Calcium 9.5 mg/dl (8.6-10.3) 01/04/23 05:50 Nasal Screen MRSA (PCR) Negative (Negative) 01/03/23 17:36 SARS-CoV-2, RNA, NAAT NEGATIVE (NEGATIVE) 01/03/23 11:14
[2023-01-04] MEDS: oxyCODONE HCL IR 5 MG TAB (IMMEDIATE RELEASE) PO PRN (17:12)
[2023-01-04] MEDS: HEPARIN SOD 5,000 UNIT/0.5 ML VIAL SQ SCH (17:18)
[2023-01-04] MEDS: ATORVASTATIN 20 MG TAB PO SCH (19:27)
[2023-01-04] MEDS: ASPIRIN 81 MG ECTAB PO SCH (19:27)
[2023-01-04] MEDS: GABAPENTIN 100 MG CAP PO SCH (19:28)
[2023-01-04] MEDS: traZODone HCL 50 MG TAB PO SCH (19:28)
[2023-01-04] MEDS: POLYETHYLENE (MIRALAX) 17 GM PACK PO SCH (19:29)
[2023-01-04] MEDS ORDERED: HEPARIN SOD 5,000 UNIT/0.5 ML VIAL SQ SCH (22:00)
[2023-01-05] MEDS: oxyCODONE HCL IR 5 MG TAB (IMMEDIATE RELEASE) PO PRN ×4 (01:25→16:48)
[2023-01-05] MEDS: CLINDAMYCIN/D5W 600 MG/50 ML BAG IV SCH ×3 (03:43→18:30)
[2023-01-05] MEDS: HEPARIN SOD 5,000 UNIT/0.5 ML VIAL SQ SCH ×3 (05:30→21:01)
[2023-01-05] MEDS: INSULIN ASPART PER UNIT CHARGE SC SCH ×2 (08:41→12:11)
[2023-01-05] MEDS: MULTIVITAMIN TAB PO SCH (08:45)
[2023-01-05] MEDS: PANTOprazole 40 MG TAB PO SCH (08:45)
[2023-01-05] MEDS: ARTIFICIAL TEARS OPB SCH ×4 (08:46→19:41)
[2023-01-05] MEDS: amLODIPine BESYLATE 5 MG TAB PO SCH (08:46)
[2023-01-05] MEDS: METOPROLOL SUCC 25MG EXT REL TAB PO SCH ×2 (08:46→19:43)
[2023-01-05] MEDS: PROSOURCE NO CARB 30 ML/PKT PO SCH ×2 (08:46→19:42)
[2023-01-05] MEDS: hydrALAZINE HCL 25 MG TAB PO SCH ×2 (08:47→19:42)
[2023-01-05] MEDS: FOLIC ACID 1 MG TAB PO SCH (10:08)
--- NOTE | 2023-01-05 12:52 | Nephrology Progress Note ---
Date of Service January 05, 2023 Assessment & Plan (1) End-stage renal disease on hemodialysis: (2) Hypertension: (3) Abscess of right leg: (4) Anemia due to chronic kidney disease: (5) PAD (peripheral artery disease): (6) Diabetes: Plan End-stage renal disease on hemodialysis admitted for elective right leg abscesses debridement and wound VAC placement, on 01/03/2023. Last dialysis was . Currently electrolyte, volume status acceptable. Clinically stable, volume status acceptable, blood pressure improved. Electrolyte acceptable. --plan for dialysis Friday and then we can keep him on TTS schedule. Advised to limit fluid intake to less than 1200 mL per day and avoid high potassium food. Check electrolyte and volume status tomorrow for any need for emergency dialysis. --on amlodipine 5 mg p.o. daily and increase dose as needed. --Epogen on Friday with dialysis -- continue on phosphate binder with meal, dose medications for eGFR less than 10, renal diet. Will follow. Admission and Anticipated Discharge Date Admission Date: January 03, 2023 Joseline Esteves was seen this morning. He looked comfortable although he reports he had significant pain overnight at right foot surgical site but improved denied any shortness of breath or chest pain. Has been limiting fluid intake. Blood pressure improved. Wound VAC with very minimum drainage. Review of Systems Review of Systems: detailed review of system was otherwise unremarkable. Physical Exam Constitutional: WD/WN, vitals as above + ill appearing; no acute distress Eyes: + anicteric sclerae ENMT: Ears: no hearing impairment Respiratory: Auscultation: lungs clear to auscultation bilaterally Cardiovascular: Rate/Rhythm: regular rate and regular rhythm Heart Sounds: normal S1 and normal S2 Extremities: + AV fistula (with + thrill and Bruit) Skin: + ulcer; no rashes Neurologic: no focal motor deficits Psychiatric: Orientation: alert and oriented x 3 Results & Data Vital Signs (Past 12 Hours) Vital Signs Temp Pulse Resp BP Pulse Ox O2 Del Method O2 Flow Rate 01/05/23 09:00 Nasal Cannula 2 01/05/23 07:17 36.3 C L 66 18 139/54 L 97 Room Air PG Care Time/CCT Total # of Minutes Spent Total Time Spent with Patient: Total time spent is greater than 50% in coordination of care (as documented) at patient's floor/unit and/or counseling patient: Coding Level of Care Code 67926 SUB INP/OBS CARE Diagnoses End-stage renal disease on hemodialysis N18.6; Z99.2 Hypertension I10 Abscess of right leg L02.415 Anemia due to chronic kidney disease N18.5; D63.1 Chronic kidney disease stage: stage 5, not on chronic dialysis PAD (peripheral artery disease) I73.9 Diabetes E11.9 (4) Anemia due to chronic kidney disease Chronic kidney disease stage: stage 5, not on chronic dialysis Qualified Code(s): N18.5 - Chronic kidney disease, stage 5; D63.1 - Anemia in chronic kidney disease
--- NOTE | 2023-01-05 15:48 | Orthopedic Progress Note ---
Date of Service January 05, 2023 Assessment & Plan (1) Diabetic foot ulcer: Plan: POD#2 R ankle debridement with wound vac placement -Continue abx -Continue wound vac, plan for change on 01/06 -NWB RLE -Mixed skin microbiota on cultures -DVT prophylaxis Admission and Anticipated Discharge Date Admission Date: January 03, 2023 Subjective Patient seen and examined at bedside this afternoon. Resting comfortably. Reports compliance with nonweightbearing. Denies any rough or sharp edges to his split. Physical Exam Physical Exam: RLE: splint clean dry and intact, unable to move toes and reports baseline absent sensation, toes warm and well perfused, no calf tenderness, wound vac suctioning properly Results & Data Vital Signs (Past 12 Hours) Vital Signs Temp Pulse Resp BP Pulse Ox O2 Del Method O2 Flow Rate 01/05/23 15:04 36.3 C L 67 18 148/58 H 97 Room Air 01/05/23 09:00 Nasal Cannula 2 01/05/23 07:17 36.3 C L 66 18 139/54 L 97 Room Air
[2023-01-05] MEDS: DOCUSATE SODIUM/SENNA 50/8.6MG TAB PO SCH (16:47)
[2023-01-05] MEDS: traZODone HCL 50 MG TAB PO SCH (19:42)
[2023-01-05] MEDS: POLYETHYLENE (MIRALAX) 17 GM PACK PO SCH (19:44)
[2023-01-05] MEDS: GABAPENTIN 100 MG CAP PO SCH (19:44)
[2023-01-05] MEDS: ATORVASTATIN 20 MG TAB PO SCH (19:44)
[2023-01-05] MEDS: ASPIRIN 81 MG ECTAB PO SCH (19:44)
[2023-01-05] MEDS: oxyCODONE HCL 10 MG TABCR (OxyCONTIN) PO SCH (21:01)
--- NOTE | 2023-01-05 22:10 | Hospitalist Progress Note ---
Date of Service January 05, 2023 Assessment & Plan (1) Diabetic foot ulcer: Plan: Per primary service. Antibiotics reinstituted on 01/04. Patient on IV clindamycin 600 mg Q8H Due to elevated weight, placed on heparin 7500 units subq q8h. (2) End-stage renal disease on hemodialysis: Plan: Defer to Nephrology service (3) Hypertension: Plan: B/P above goal. Resumed metoprolol 25 mg PO BID, and Hydralazine. Patient placed on amlodipine, will be monitoring vital signs. BP appears better. (4) Heart failure with mid-range ejection fraction: Plan: Patient currently appears euvolemic. WIll continue to monitor (5) Anemia due to chronic kidney disease: Plan: likely due to ESRD. will be monitoring hemoglobin (6) Diabetes: Plan: A1C at goal. glycemic management signed off as blood sugars have been at goal. (7) Systolic and diastolic CHF, chronic: Plan: as above. Admission and Anticipated Discharge Date Admission Date: January 03, 2023 Subjective 62 yo male reports no new symptoms. Review of Systems Review of Systems: All systems reviewed & are unremarkable except as noted in HPI & below Physical Exam Physical Exam: General: NAD. HEENT: Atraumatic, normocephalic. EOMI Pulm: CTAB. -wheezes, -rales, -rhonchi. No respiratory distress. Cardiac: RRR, -mrg. L wrist AV fistula w/ thrill. Abdominal: Nontender, nondistended, soft. Results & Data Results & Data Vital Signs (Past 12 Hours) Vital Signs Temp Pulse Resp BP Pulse Ox O2 Del Method O2 Flow Rate 01/05/23 19:30 Nasal Cannula 2 01/05/23 19:37 36.5 C 65 16 131/50 L 94 Room Air 01/05/23 15:04 36.3 C L 67 18 148/58 H 97 Room Air PG Care Time/CCT Total # of Minutes Spent Total Time Spent with Patient: Total time spent is greater than 50% in coordination of care (as documented) at patient's floor/unit and/or counseling patient: Coding Level of Care Code 41648 SUB INP/OBS CARE 2/35MIN Diagnoses Diabetic foot ulcer E11.621; L97.509 End-stage renal disease on hemodialysis N18.6; Z99.2 Hypertension I10 Heart failure with mid-range ejection fraction I50.22 Anemia due to chronic kidney disease N18.5; D63.1 Chronic kidney disease stage: stage 5, not on chronic dialysis Diabetes E11.9 Systolic and diastolic CHF, chronic I50.42 (5) Anemia due to chronic kidney disease Chronic kidney disease stage: stage 5, not on chronic dialysis Qualified Code(s): N18.5 - Chronic kidney disease, stage 5; D63.1 - Anemia in chronic kidney disease
[2023-01-06] MEDS: oxyCODONE HCL IR 5 MG TAB (IMMEDIATE RELEASE) PO PRN ×5 (01:11→18:28)
[2023-01-06] MEDS: CLINDAMYCIN/D5W 600 MG/50 ML BAG IV SCH ×3 (03:28→19:42)
[2023-01-06] MEDS: HEPARIN SOD 5,000 UNIT/0.5 ML VIAL SQ SCH ×4 (05:03→21:42)
[2023-01-06 07:46] LABS: Hematocrit (blood only) 31.8 % (42.0-52.0); Hemoglobin 10.1 g/dl (14.0-18.0); Mean Corpuscular Hemoglobin 28.5 pg (25.0-34.0); Mean Corpuscular Hgb Conc 31.8 g/dL (32.0-36.0); Mean Corpuscular Volume 89.6 fL (80.0-100.0); Mean Platelet Volume 11.6 fL (9.4-12.4); Platelet Count 184 K/uL (130-400); Red Blood Count 3.55 M/uL (4.70-6.10); White Blood Count 4.54 K/ul (4.8-10.8)
[2023-01-06 08:07] LABS: Albumin Level 3.1 gm/dl (3.4-5.0); BUN Creatinine Ratio 16.2 (10-20); Calcium 9.4 mg/dl (8.6-10.3); Creatinine Clr Calc Pharmacy 24.8 ml/min; Est GFR (African American) 17.3 ml/min; Est GFR (Non-African American) 14.9 ml/min; Phosphorus 7.3 mg/dl (2.5-4.9); Potassium 4.9 mmol/L (3.5-5.1)
[2023-01-06] MEDS: hydrALAZINE HCL 25 MG TAB PO SCH ×2 (08:13→21:41)
[2023-01-06] MEDS: METOPROLOL SUCC 25MG EXT REL TAB PO SCH ×2 (08:13→21:42)
[2023-01-06] MEDS: PANTOprazole 40 MG TAB PO SCH (08:13)
[2023-01-06] MEDS: amLODIPine BESYLATE 5 MG TAB PO SCH (08:15)
[2023-01-06] MEDS: PROSOURCE NO CARB 30 ML/PKT PO SCH ×2 (08:16→21:44)
[2023-01-06] MEDS: ARTIFICIAL TEARS OPB SCH ×4 (08:16→21:43)
[2023-01-06] MEDS: MULTIVITAMIN TAB PO SCH (08:16)
[2023-01-06] MEDS: DOCUSATE SODIUM/SENNA 50/8.6MG TAB PO SCH (08:17)
[2023-01-06] MEDS ORDERED: EPOETIN ALFA 10,000 UNITS/ML VIAL IV ONE (09:00)
--- NOTE | 2023-01-06 10:42 | Nephrology Progress Note ---
Date of Service January 06, 2023 Assessment & Plan (1) End-stage renal disease on hemodialysis: (2) Hypertension: (3) Abscess of right leg: (4) Anemia due to chronic kidney disease: (5) PAD (peripheral artery disease): (6) Diabetes: Plan End-stage renal disease on hemodialysis admitted for elective right leg abscesses debridement and wound VAC placement, on 01/03/2023. Last dialysis was . Currently electrolyte, volume status acceptable. Clinically stable, volume status acceptable, blood pressure improved. Electrolyte acceptable. -- tolerating dialysis, will try to reach estimated dry weight as blood pressure is okay and then plan for dialysis tomorrow as his regular schedule. --on amlodipine 5 mg p.o. daily and increase dose as needed. --Epogen with dialysis today. -- continue on phosphate binder with meal, dose medications for eGFR less than 10, renal diet. Will follow. Admission and Anticipated Discharge Date Admission Date: January 03, 2023 Joseline Esteves was seen and evaluated during dialysis this morning. He was sleepy but looked comfortable, could not sleep at night because of ongoing significant pain overnight at right foot surgical site. Denied any shortness of breath or chest pain. Has been limiting fluid intake. Blood pressure improved. Wound VAC with very minimum drainage. Review of Systems Review of Systems: detailed review of system was otherwise unremarkable. Physical Exam Constitutional: WD/WN, vitals as above + ill appearing; no acute distress Eyes: + anicteric sclerae ENMT: Ears: no hearing impairment Respiratory: Auscultation: lungs clear to auscultation bilaterally Cardiovascular: Rate/Rhythm: regular rate and regular rhythm Heart Sounds: normal S1 and normal S2 Extremities: + AV fistula (with + thrill and Bruit) Skin: + ulcer; no rashes Neurologic: no focal motor deficits Psychiatric: Orientation: alert and oriented x 3 Results & Data Vital Signs (Past 12 Hours) Vital Signs Temp Pulse Pulse Pulse Resp BP BP 01/06/23 10:00 67 115/37 L 01/06/23 09:30 61 108/82 01/06/23 09:00 68 155/65 H 01/06/23 08:50 55 L 135/91 01/06/23 08:42 36.4 C L 71 01/06/23 07:07 36.4 C L 70 16 115/45 L Pulse Ox O2 Del Method 01/06/23 10:00 01/06/23 09:30 01/06/23 09:00 01/06/23 08:50 01/06/23 08:42 01/06/23 07:07 93 Room Air PG Care Time/CCT Total # of Minutes Spent Total Time Spent with Patient: Total time spent is greater than 50% in coordination of care (as documented) at patient's floor/unit and/or counseling patient: Coding Level of Care Code 00386 SUB INP/OBS CARE 2/35MIN Diagnoses End-stage renal disease on hemodialysis N18.6; Z99.2 Hypertension I10 Abscess of right leg L02.415 Anemia due to chronic kidney disease N18.5; D63.1 Chronic kidney disease stage: stage 5, not on chronic dialysis PAD (peripheral artery disease) I73.9 Diabetes E11.9 (4) Anemia due to chronic kidney disease Chronic kidney disease stage: stage 5, not on chronic dialysis Qualified Code(s): N18.5 - Chronic kidney disease, stage 5; D63.1 - Anemia in chronic kidney disease
--- NOTE | 2023-01-06 11:03 | Orthopedic Progress Note ---
Date of Service January 06, 2023 Assessment & Plan (1) Diabetic foot ulcer: Plan: Doing well. Continue offloading. We will have orthotics see if they can supply a offloading splint. We will continue a short course of IV antibiotics. Nonweightbearing on the right leg. PT and OT consult. Back to [facility] when evaluated. On heparin subcu for DVT prophylaxis. Admission and Anticipated Discharge Date Admission Date: January 03, 2023 Subjective In dialysis. No problems. Physical Exam Physical Exam: Wound VAC changed. Lateral wound granulating. Posterolateral heel wound granulating. Achilles wound granulating. Minor skin maceration. No significant drainage redness or swelling. Wound VAC change with the wound care nurse. Splint reapplied. Results & Data Vital Signs (Past 12 Hours) Vital Signs Temp Pulse Pulse Pulse Resp BP BP 01/06/23 10:30 76 140/57 L 01/06/23 10:00 67 115/37 L 01/06/23 09:30 61 108/82 01/06/23 09:00 68 155/65 H 01/06/23 08:50 55 L 135/91 01/06/23 08:42 36.4 C L 71 01/06/23 07:07 36.4 C L 70 16 115/45 L Pulse Ox O2 Del Method 01/06/23 10:30 01/06/23 10:00 01/06/23 09:30 01/06/23 09:00 01/06/23 08:50 01/06/23 08:42 01/06/23 07:07 93 Room Air
[2023-01-06] MEDS: FOLIC ACID 1 MG TAB PO SCH (13:43)
[2023-01-06] MEDS: ASPIRIN 81 MG ECTAB PO SCH (21:42)
[2023-01-06] MEDS: ATORVASTATIN 20 MG TAB PO SCH (21:43)
[2023-01-06] MEDS: POLYETHYLENE (MIRALAX) 17 GM PACK PO SCH (21:43)
[2023-01-06] MEDS: GABAPENTIN 100 MG CAP PO SCH (21:43)
[2023-01-06] MEDS: oxyCODONE HCL 10 MG TABCR (OxyCONTIN) PO SCH (21:51)
[2023-01-06] MEDS: traZODone HCL 50 MG TAB PO SCH (21:51)
[2023-01-07] MEDS: CLINDAMYCIN/D5W 600 MG/50 ML BAG IV SCH ×3 (02:34→20:55)
[2023-01-07] MEDS: oxyCODONE HCL IR 5 MG TAB (IMMEDIATE RELEASE) PO PRN ×4 (02:34→20:54)
[2023-01-07] MEDS: HEPARIN SOD 5,000 UNIT/0.5 ML VIAL SQ SCH ×3 (04:45→21:02)
[2023-01-07] MEDS: MULTIVITAMIN TAB PO SCH (07:29)
[2023-01-07] MEDS: amLODIPine BESYLATE 5 MG TAB PO SCH (07:29)
[2023-01-07] MEDS: PANTOprazole 40 MG TAB PO SCH (07:29)
[2023-01-07] MEDS: METOPROLOL SUCC 25MG EXT REL TAB PO SCH ×2 (07:30→20:57)
[2023-01-07] MEDS: hydrALAZINE HCL 25 MG TAB PO SCH ×2 (07:30→20:58)
[2023-01-07] MEDS: DOCUSATE SODIUM/SENNA 50/8.6MG TAB PO SCH (07:31)
[2023-01-07] MEDS: ARTIFICIAL TEARS OPB SCH ×4 (07:31→20:56)
[2023-01-07] MEDS: PROSOURCE NO CARB 30 ML/PKT PO SCH ×2 (07:32→20:58)
--- NOTE | 2023-01-07 08:48 | Orthopedic Progress Note ---
Date of Service January 07, 2023 Assessment & Plan (1) Diabetic foot ulcer: Plan: Patient is doing well. He is in good spirits. We will continue with nonweightbearing on the right lower extremity. Order was placed for orthotic consult for an offloading splint/brace for right lower extremity on 01/06. PT and OT will assess patient today and anticipate transitioning back to [facility]. Upon discharge he will not need antibiotics. Wound Vac will need changed M-W-. We will continue with DVT prophylaxis. Scheduled follow-up appointment in the office with Ena Acevedo on 01/15. Present on Admission?: Yes Admission and Anticipated Discharge Date Admission Date: January 03, 2023 Subjective Patient is a 62-year-old male who was seen bedside this AM. He is postop day #4 status post an debridement of an ulcer on the right foot. He is alert and oriented x3 in good spirits. He reports he is not having any pain at this time due to just having a pain pill. He rated 0/10. He denies any fever, chills, chest pain or shortness of breath. He is inquiring about returning back to [facility]. He reports he is not putting any weight on the right lower extremity and has been a mechanical lift for some time now. He states he has no sensation in the foot which has been ongoing. He offers no concerns. Review of Systems Review of Systems: Please refer to HPI Physical Exam Physical Exam: General: Patient is alert and oriented x3 no acute distress pleasant conversive Integumentary/musculoskeletal: Splint and wound VAC is in place. Wound VAC is functioning properly. Negative for any swelling over distal toes that are visible. Toes are normal in color. Warm to touch able to slightly wiggle. Right lower extremity skin exposed as above the splint has chronic erythematous areas appears consistent with skin picking. Negative for any drainage or signs of infection.Splint and wound vac were not removed Results & Data Vital Signs (Past 12 Hours) Vital Signs Temp Pulse Resp BP Pulse Ox O2 Del Method O2 Flow Rate 01/07/23 08:25 36.3 C L 77 17 157/72 H 96 Room Air 01/07/23 07:55 Room Air 01/06/23 21:39 36.8 C 73 18 167/73 H 96 Nasal Cannula 2
[2023-01-07] MEDS: FOLIC ACID 1 MG TAB PO SCH (12:15)
--- NOTE | 2023-01-07 15:55 | Nephrology Progress Note ---
Date of Service January 07, 2023 Assessment & Plan (1) End-stage renal disease on hemodialysis: (2) Hypertension: (3) Abscess of right leg: (4) Anemia due to chronic kidney disease: (5) PAD (peripheral artery disease): (6) Diabetes: Plan End-stage renal disease on hemodialysis admitted for elective right leg abscesses debridement and wound VAC placement, on 01/03/2023. Last dialysis was . Currently electrolyte, volume status acceptable. Clinically stable, volume status acceptable, blood pressure improved. Electrolyte acceptable. -- tolerating dialysis --on amlodipine 5 mg p.o. daily and increase dose as needed. --received Epogen on 01/05/23 -- continue on phosphate binder with meal, dose medications for eGFR less than 10, renal diet. Will follow. Admission and Anticipated Discharge Date Admission Date: January 03, 2023 Joseline Esteves was seen and evaluated during dialysis this morning. He was tolerating dialysis well, denied significant pain at right foot surgical site. Denied any shortness of breath or chest pain. Has been limiting fluid intake. Blood pressure improved. Wound VAC with very minimum drainage. Review of Systems Review of Systems: detailed review of system was otherwise unremarkable. Physical Exam Constitutional: WD/WN, vitals as above + ill appearing; no acute distress Eyes: + anicteric sclerae ENMT: Ears: no hearing impairment Respiratory: Auscultation: lungs clear to auscultation bilaterally Cardiovascular: Rate/Rhythm: regular rate and regular rhythm Heart Sounds: normal S1 and normal S2 Extremities: + AV fistula (with + thrill and Bruit) Musculoskeletal: rt leg in dressing, wound vac Skin: + ulcer; no rashes Neurologic: no focal motor deficits Psychiatric: Orientation: alert and oriented x 3 Results & Data Vital Signs (Past 12 Hours) Vital Signs Temp Pulse Pulse Pulse Resp BP BP 01/07/23 15:27 36.5 C 72 20 126/59 L 01/07/23 12:05 36.5 C 75 142/42 H 01/07/23 11:30 76 125/35 L 01/07/23 11:00 78 132/40 L 01/07/23 10:00 76 143/54 H 01/07/23 09:30 72 154/72 H 01/07/23 10:30 77 135/49 L 01/07/23 09:18 36.4 C L 73 01/07/23 09:23 72 153/53 H 01/07/23 08:25 36.3 C L 77 17 157/72 H 01/07/23 07:55 Pulse Ox O2 Del Method 01/07/23 15:27 95 Room Air 01/07/23 12:05 01/07/23 11:30 01/07/23 11:00 01/07/23 10:00 01/07/23 09:30 01/07/23 10:30 01/07/23 09:18 01/07/23 09:23 01/07/23 08:25 96 Room Air 01/07/23 07:55 Room Air PG Care Time/CCT Total # of Minutes Spent Total Time Spent with Patient: Total time spent is greater than 50% in coordination of care (as documented) at patient's floor/unit and/or counseling patient: Coding Level of Care Code 27537 SUB INP/OBS CARE 2/35MIN Diagnoses End-stage renal disease on hemodialysis N18.6; Z99.2 Hypertension I10 Abscess of right leg L02.415 Anemia due to chronic kidney disease N18.5; D63.1 Chronic kidney disease stage: stage 5, not on chronic dialysis PAD (peripheral artery disease) I73.9 Diabetes E11.9 (4) Anemia due to chronic kidney disease Chronic kidney disease stage: stage 5, not on chronic dialysis Qualified Code(s): N18.5 - Chronic kidney disease, stage 5; D63.1 - Anemia in chronic kidney disease
[2023-01-07] MEDS: ATORVASTATIN 20 MG TAB PO SCH (20:57)
[2023-01-07] MEDS: GABAPENTIN 100 MG CAP PO SCH (20:57)
[2023-01-07] MEDS: traZODone HCL 50 MG TAB PO SCH (20:59)
[2023-01-07] MEDS: POLYETHYLENE (MIRALAX) 17 GM PACK PO SCH (20:59)
[2023-01-07] MEDS: ASPIRIN 81 MG ECTAB PO SCH (20:59)
[2023-01-07] MEDS: oxyCODONE HCL 10 MG TABCR (OxyCONTIN) PO SCH (21:11)
--- NOTE | 2023-01-07 23:37 | Hospitalist Progress Note ---
Date of Service January 07, 2023 Assessment & Plan (1) Diabetic foot ulcer: Plan: Per primary service. Antibiotics reinstituted on 01/04. Patient on IV clindamycin 600 mg Q8H Discontinued on 02/06 Due to elevated weight, placed on heparin 7500 units subq q8h. (2) End-stage renal disease on hemodialysis: Plan: Defer to Nephrology service (3) Hypertension: Plan: B/P above goal. Resumed metoprolol 25 mg PO BID, and Hydralazine. Patient placed on amlodipine, will be monitoring vital signs. BP appears better. (4) Heart failure with mid-range ejection fraction: Plan: Patient currently appears euvolemic. WIll continue to monitor (5) Anemia due to chronic kidney disease: Plan: likely due to ESRD. will be monitoring hemoglobin. hemoglobin stable (6) Diabetes: Plan: A1C at goal. glycemic management signed off as blood sugars have been at goal. (7) Systolic and diastolic CHF, chronic: Plan: as above. Plan Medicine will sign off. Please contact Hospitalist service for any additional questions. Admission and Anticipated Discharge Date Admission Date: January 03, 2023 Subjective Patient reports feeling well. Review of Systems Review of Systems: All systems reviewed & are unremarkable except as noted in HPI & below Physical Exam Physical Exam: General: NAD. HEENT: Atraumatic, normocephalic. EOMI Pulm: CTAB. -wheezes, -rales, -rhonchi. No respiratory distress. Cardiac: RRR, -mrg. L wrist AV fistula w/ thrill. Abdominal: Nontender, nondistended, soft. wound vac on lower extremity Results & Data Results & Data Vital Signs (Past 12 Hours) Vital Signs Temp Pulse Pulse Resp BP Pulse Ox O2 Del Method 01/07/23 21:05 36.7 C 77 18 139/68 97 Room Air 01/07/23 15:27 36.5 C 72 20 126/59 L 95 Room Air 01/07/23 12:05 36.5 C 75 142/42 H PG Care Time/CCT Total # of Minutes Spent Total Time Spent with Patient: Total time spent is greater than 50% in coordination of care (as documented) at patient's floor/unit and/or counseling patient: Coding Level of Care Code 62302 SUB INP/OBS CARE 2/35MIN Diagnoses Diabetic foot ulcer E11.621; L97.509 End-stage renal disease on hemodialysis N18.6; Z99.2 Hypertension I10 Heart failure with mid-range ejection fraction I50.22 Anemia due to chronic kidney disease N18.5; D63.1 Chronic kidney disease stage: stage 5, not on chronic dialysis Diabetes E11.9 Systolic and diastolic CHF, chronic I50.42 (5) Anemia due to chronic kidney disease Chronic kidney disease stage: stage 5, not on chronic dialysis Qualified Code(s): N18.5 - Chronic kidney disease, stage 5; D63.1 - Anemia in chronic kidney disease
[2023-01-08] MEDS: oxyCODONE HCL IR 5 MG TAB (IMMEDIATE RELEASE) PO PRN ×3 (00:58→09:33)
[2023-01-08] MEDS: HEPARIN SOD 5,000 UNIT/0.5 ML VIAL SQ SCH (04:43)
[2023-01-08] MEDS: CLINDAMYCIN/D5W 600 MG/50 ML BAG IV SCH ×2 (04:43→11:32)
[2023-01-08] MEDS: amLODIPine BESYLATE 5 MG TAB PO SCH (09:34)
[2023-01-08] MEDS: PANTOprazole 40 MG TAB PO SCH (09:34)
[2023-01-08] MEDS: METOPROLOL SUCC 25MG EXT REL TAB PO SCH (09:35)
[2023-01-08] MEDS: PROSOURCE NO CARB 30 ML/PKT PO SCH (09:35)
[2023-01-08] MEDS: DOCUSATE SODIUM/SENNA 50/8.6MG TAB PO SCH (09:35)
[2023-01-08] MEDS: MULTIVITAMIN TAB PO SCH (09:35)
[2023-01-08] MEDS: hydrALAZINE HCL 25 MG TAB PO SCH (09:36)
[2023-01-08] MEDS: ARTIFICIAL TEARS OPB SCH ×2 (09:39→12:01)
--- NOTE | 2023-01-08 09:39 | Orthopedic Progress Note ---
Date of Service January 08, 2023 Assessment & Plan (1) Diabetic foot ulcer: Plan: POD 5- s/p debridement right heel wound and achilles tendon with Dr. Jaffe Patient is doing well. He is in good spirits. We will continue with nonweightbearing on the right lower extremity. Patient has PRAFO at home. He states that he will wear that one if they can get a piece of foam to pad the heel. Otherwise continue the splint he's currently in. No antibiotics needed. Wound Vac will need changed . Plan for change to day prior to discharge. Continue ASA upon discharge will discontinue Heparin. Scheduled follow-up appointment in the office with Ena Acevedo PA-C on 01/15 as scheduled. Admission and Anticipated Discharge Date Admission Date: January 03, 2023 Subjective Feeling well, no complaints. Ready to go back to [facility]. Physical Exam Musculoskeletal: Splint on right leg. Right leg out turned and resting on the bed. Splint in place. Right leg elevated on pillow to prevent pressure on outer aspect of ankle. Toes move well. No distal edema. Results & Data Vital Signs (Past 12 Hours) Vital Signs Temp Pulse Resp BP Pulse Ox O2 Del Method 01/08/23 07:59 36.4 C L 66 16 117/45 L 99 Room Air
--- NOTE | 2023-01-08 09:51 | Discharge Summary ---
Date of Service January 08, 2023 Discharge Data Consultations 01/03/23 17:20 Consult Hospitalist Routine Consult Nephrology Routine Procedures Performed Operation Date: 01/03/23 13:00 Actual Procedures p Right Ankle Debridement(Right) - Pancho Jaffe MD Hospital Course (1) Diabetic foot ulcer: Patient was admitted to [facility] on January 03, 2023 after undergoing a debridement of his right Achilles tendon and diabetic foot ulcer. His surgery was performed with Dr. Jaffe. He tolerated the procedure well without any intraoperative complications. While in the hospital a hospitalist consult was placed for postoperative medical management. A nephrology consult was also placed for management of dialysis and end-stage renal disease. He was on a dialysis schedule of Friday and Friday. He did have dialysis Friday and Friday. Wound VAC was placed on his right heel and Achilles tendon at the time of surgery. His first VAC change was performed on Friday, January 06, 2023. The wound VAC was kept in place. He was started on subcu heparin for DVT prophylaxis during his inpatient stay. He was placed on IV Cleocin for management of his right heel wounds. Intraoperative cultures were obtained and grew out methicillin sensitive Staph aureus. He was allowed to transfer from bed to chair. A splint was applied to his right lower extremity to offload the foot. An orthotic consult was placed Friday for evaluation for a [facility]. Patient does have 1 of these at home and instructions were given to apply foam into the heel of the boot to prevent pressure on the right heel. Encouraged elevation of his right lower extremity at all times. Advised to keep the heel off the bed. Wound VAC pressure was continuous at 125 mg of mercury. His home medications were continued. Case management was involved for disposition needs. It was determined that he would not need to go home on IV antibiotics. His bed was available and transportation was available to [facility] on Sunday, January 08, 2023. He was discharged in stable condition. He will follow-up as scheduled. Discharge instructions were reviewed and provided. He understands and agrees with plan.
[2023-01-08] MEDS: FOLIC ACID 1 MG TAB PO SCH (11:32)
--- NOTE | 2023-01-08 12:22 | Nephrology Progress Note ---
Date of Service January 08, 2023 Assessment & Plan (1) End-stage renal disease on hemodialysis: (2) Hypertension: (3) Abscess of right leg: (4) Anemia due to chronic kidney disease: (5) PAD (peripheral artery disease): (6) Diabetes: Plan End-stage renal disease on hemodialysis admitted for elective right leg abscesses debridement and wound VAC placement, on 01/03/2023. Last dialysis was . Currently electrolyte, volume status acceptable. Clinically stable, volume status acceptable, blood pressure improved. Electrolyte acceptable. --continue on amlodipine 5 mg p.o. daily and increase dose as needed. --received Epogen on 01/05/23 -- continue on phosphate binder with meal, dose medications for eGFR less than 10, renal diet. --IF DC today, he will have out pt HD tomorrow at [facility]. Will follow. Admission and Anticipated Discharge Date Admission Date: January 03, 2023 Joseline Esteves was seen and evaluated this morning. He was doing well, denied significant pain at right foot surgical site. Denied any shortness of breath or chest pain. Has been limiting fluid intake. Blood pressure improved. Wound VAC with very minimum drainage. Review of Systems Review of Systems: detailed review of system was otherwise unremarkable. Physical Exam Constitutional: WD/WN, vitals as above + ill appearing; no acute distress Eyes: + anicteric sclerae ENMT: Ears: no hearing impairment Respiratory: Auscultation: lungs clear to auscultation bilaterally Cardiovascular: Rate/Rhythm: regular rate and regular rhythm Heart Sounds: normal S1 and normal S2 Extremities: + AV fistula (with + thrill and Bruit) Musculoskeletal: rt foot wound vac in place Skin: + ulcer; no rashes Neurologic: no focal motor deficits Psychiatric: Orientation: alert and oriented x 3 Results & Data Vital Signs (Past 12 Hours) Vital Signs Temp Pulse Pulse Pulse Resp BP Pulse Ox 01/08/23 12:08 36.4 C L 99 H 77 66 16 117/45 L 99 01/08/23 07:59 36.4 C L 66 16 117/45 L 99 O2 Del Method 01/08/23 12:08 01/08/23 07:59 Room Air PG Care Time/CCT Total # of Minutes Spent Total Time Spent with Patient: Total time spent is greater than 50% in coordination of care (as documented) at patient's floor/unit and/or counseling patient: Coding Level of Care Code 46563 SUB INP/OBS CARE Diagnoses End-stage renal disease on hemodialysis N18.6; Z99.2 Hypertension I10 Abscess of right leg L02.415 Anemia due to chronic kidney disease N18.5; D63.1 Chronic kidney disease stage: stage 5, not on chronic dialysis PAD (peripheral artery disease) I73.9 Diabetes E11.9 (4) Anemia due to chronic kidney disease Chronic kidney disease stage: stage 5, not on chronic dialysis Qualified Code(s): N18.5 - Chronic kidney disease, stage 5; D63.1 - Anemia in chronic kidney disease
== END 2023-01-08 12:56 | DRG 623 ==
LOC: ASU 10:52 → INTOOBSV 15:55 → 3N 15:55